=== PATIENT | female | born 1935 | race Caucasian/White ===

== ENCOUNTER 2018-02-13 12:45 | Emergency (ER) | payer OTHER, MEDICARE ==
--- NOTE | 2018-02-13 13:49 | RAD REPORT ---
EXAM DESCRIPTION: CT - Ct Stroke Brain Wo Cont - 02/13/2018 1:40 pm CLINICAL HISTORY: Left arm numbness COMPARISON: None. TECHNIQUE: Computed axial tomography of the head was obtained. IV contrast was not requested. All CT scans are performed using dose optimization technique as appropriate and may include automated exposure control or mA/KV adjustment according to patient size. FINDINGS: An intracranial bleed is not seen . The ventricles are normal in caliber. Mild to moderate low-density areas within periventricular, deep and subcortical white matter likely represent ischemic changes secondary to small vessel disease No extra-axial fluid collection is noted. Vascular calcifications are present. Fluid within the sinuses/ mastoids is not seen. IMPRESSION: No acute intracranial abnormality is seen. If patient's symptoms persist MRI of the bra in would be recommended. Dr. Porter from the emergency room was notified 1:43 p.m. February 13, 2018
--- NOTE | 2018-02-13 13:54 | RAD REPORT ---
EXAM DESCRIPTION: [facility] Single View02/13/2018 1:48 pm CLINICAL HISTORY: Hypertension/numbness COMPARISON: 2016 FINDINGS: The lungs appear clear of acute infiltrate. The heart is moderately enlarged IMPRESSION: No acute abnormalities displayed
[2018-02-13 14:02] LABS: Absolute Lymphocytes (CBC) 0.7 K/uL (0.7-4.9); Absolute Monocytes 0.7 K/uL (0.1-1.3); Absolute Neutrophil 4.5 K/uL (1.8-8.0); Basophils % 0.5 % (0-1.3); Eosinophils % 0.8 % (0-4.4); Hematocrit 37.3 % (36.0-45.0); Lymphocytes % 12.5 % (15.3-44.8); MCH 31.7 pg (27.0-35.0); MCV 94.5 fL (80-100); RBC Red Blood Cell Count 3.95 M/uL (3.86-4.86)
[2018-02-13 14:05] LABS: Protime INR 0.92
[2018-02-13] MEDS ORDERED: CLOPIDOGREL 75 MG TABLET ONE (14:10)
[2018-02-13] MEDS ORDERED: cloNIDine HCl 0.1 MG TAB ONE (14:21)
[2018-02-13 14:27] LABS: Albumin 3.3 g/dL (3.4-5.0); Bilirubin Direct 0.1 mg/dL (0-0.2); Bilirubin Total 0.5 mg/dL (0.2-1.0); Magnesium 1.9 mg/dL (1.8-2.4); Protein, Total 6.5 g/dL (6.4-8.2)
[2018-02-13 16:06] LABS: Urine Bacteria >50 /HPF (<20)
[2018-02-13 16:07] LABS: Urine Culture Reflex Order REFLEXED; Urine Mucus 1+ /HPF (NONE SEEN)
[2018-02-13 16:07] LABS: Urine Blood TRACE (NEG); Urine Glucose NEGATIVE (NEG); Urine Protein 2+ (NEG); Urine Specific Gravity 1.015 (1.005-1.030); Urine pH 6.5 (5.0-7.0)
--- NOTE | 2018-02-13 16:57 | EDPHYS ---
Physician Documentation [facility] Name: Casey Lyons Age: 82 yrs Sex: Female : 1935 Arrival Date: 02/13/2018 Time: 12:48 Bed 7 Private MD: ED Physician Jaspal Porter HPI: 02/13 13:48 This 82 yrs old Female presents to ER via EMS with complaints of Numbness Of wa Arm. 13:49 The patient presents to the emergency department with paresthesias of the left upper wa extremity, that is mild, numbness. 13:50 Onset: The symptoms/episode began/occurred Onset: The symptoms/episode began/occurred wa 1210 hrs. lasted 5 min. Context: occurred at home, occurred while the patient was at rest. Associated signs and symptoms: Pertinent negatives: altered mental status, dizziness, headache, neck stiffness, syncope, double vision, visual field changes, loss of vision, weakness. Severity of symptoms: At their worst the symptoms were moderate in the emergency department the symptoms have resolved. Patient's baseline: Neuro: alert and fully oriented, Motor: no deficits, Ambulation: Speech: normal, The patient has a previous history of HTN. Current symptoms: Currently, the patient is not experiencing any symptoms. A week ago had an episode of difficulty speaking that resolved spontaneously as well. The patient has been recently seen by a physician: the patient's primary care provider, Dr. Beltran. 13:[address] Beltran recently switched her to Plavix. md Historical: - Allergies: 12:59 No Known Drug Allergies; ph - Home Meds: 12:59 torsemide 20 mg Oral tab PRN [Active]; Clarinex 5 mg Oral tab 1 tab PRN [Active]; Fish ph Oil 1,000 mg Oral cap daily [Active]; Catapres 0.1 mg Oral tab 2 times per day [Active]; vitamin E Oral once daily [Active]; Vitamin D Oral daily [Active]; Synthroid 75 mcg Oral tab once daily [Active]; Vitamin B-12 Oral daily [Active]; pravastatin 80 mg Oral tab 1 tab once daily [Active]; Citracal D daily [Active]; Zebeta 10 mg Oral tab 1 tab once daily [Active]; Pletal 100 mg Oral tab 1 tab 2 times per day [Active]; Plavix 75 mg Oral tab 1 tab once daily [Active]; - PMHx: 12:59 Cellulitis of Leg; Hypertension; Hypothyroidism; ph - PSHx: 12:59 Heart stents; CABG; Hysterectomy; ph - Immunization history:: Adult Immunizations up to date. - Social history:: Smoking status: Patient/guardian denies using tobacco, but has a distant history of tobacco abuse. - Ebola Screening: : No symptoms or risks identified at this time. - Family history:: not pertinent. - Hospitalizations: : No recent hospitalization is reported. ROS: 13:57 Constitutional: Negative for fever, chills, and weight loss, Eyes: Negative for injury, wa pain, redness, and discharge, ENT: Negative for injury, pain, and discharge, Neck: Negative for injury, pain, and swelling, Cardiovascular: Negative for chest pain, palpitations, and edema, Respiratory: Negative for shortness of breath, cough, wheezing, and pleuritic chest pain, Abdomen/GI: Negative for abdominal pain, nausea, vomiting, diarrhea, and constipation, Back: Negative for injury and pain, MS/Extremity: Negative for injury and deformity, Skin: Negative for injury, rash, and discoloration, Psych: Negative for depression, anxiety, suicide ideation, homicidal ideation, and hallucinations. 13:57 Neuro: Positive for numbness, tingling, weakness, of the left arm, Negative for altered mental status, dizziness, gait disturbance, headache, loss of consciousness, seizure activity, speech changes, syncope, visual changes. 13:57 All other systems are negative. Exam: 13:57 Constitutional: This is a well developed, well nourished patient who is awake, alert, wa and in no acute distress. Head/Face: Normocephalic, atraumatic. Eyes: Pupils equal round and reactive to light, extra-ocular motions intact. Lids and lashes normal. Conjunctiva and sclera are non-icteric and not injected. Cornea within normal limits. Periorbital areas with no swelling, redness, or edema. ENT: Nares patent. No nasal discharge, no septal abnormalities noted. Tympanic membranes are normal and external auditory canals are clear. Oropharynx with no redness, swelling, or masses, exudates, or evidence of obstruction, uvula midline. Mucous membranes moist. Neck: Trachea midline, no thyromegaly or masses palpated, and no cervical lymphadenopathy. Supple, full range of motion without nuchal rigidity, or vertebral point tenderness. No Meningismus. Cardiovascular: Regular rate and rhythm with a normal S1 and S2. No gallops, murmurs, or rubs. Normal PMI, no JVD. No pulse deficits. Respiratory: Lungs have equal breath sounds bilaterally, clear to auscultation and percussion. No rales, rhonchi or wheezes noted. No increased work of breathing, no retractions or nasal flaring. Abdomen/GI: Soft, non-tender, with normal bowel sounds. No distension or tympany. No guarding or rebound. No evidence of tenderness throughout. Back: No spinal tenderness. No costovertebral tenderness. Full range of motion. Skin: Warm, dry with normal turgor. Normal color with no rashes, no lesions, and no evidence of cellulitis. MS/ Extremity: Pulses equal, no cyanosis. Neurovascular intact. Full, normal range of motion. Psych: Awake, alert, with orientation to person, place and time. Behavior, mood, and affect are within normal limits. Vital Signs: 12:53 BP 187 / 59; Pulse 66; Resp 18; Temp 98.0(TE); Pulse Ox 98% on R/A; Weight 72.57 kg; ph Height 5 ft. 4 in. (162.56 cm); Pain 0/10; 14:15 BP 219 / 72; Pulse 84; Resp 16; Pulse Ox 99% on R/A; Pain 0/10; ph 15:28 BP 195 / 75; Pulse 63; Resp 16; Pulse Ox 98% on R/A; Pain 0/10; ph 17:10 BP 185 / 69; Pulse 64; Resp 18; Temp 97.6; Pulse Ox 98% on R/A; Pain 0/10; ph 12:53 Body Mass Index 27.46 (72.57 kg, 162.56 cm) ph NIH Stroke Scale Scores: 13:15 NIHSS Score: 0 ph MDM: 12:57 Patient medically screened. wa 13:58 Special discussion: TIA? will work up acutely and reassess. pt at baseline with nml wa exam at the moment. 16:37 Data reviewed: vital signs, nurses notes, lab test result(s), EKG, radiologic studies. wa Test interpretation: by ED physician or midlevel provider: labs noted for pyuria consistent with UTI. nml CXR. CT brain: no acute process. . Test interpretation: by ED physician or midlevel provider: EKG: HR 76. sinus. Inferior-lateral ischemic changes noted. Response to treatment: the patient's symptoms have resolved after treatment. Physician consultation: Gurdeep Koehler MD per Dr. Koehler, pt may be discharged home with f/u to him if symptoms resolved. advise immediate return for worrisome concerns. 02/13 13:32 Order name: Troponin (emerg Dept Use Only); Complete Time: 14:33 md 02/13 13:32 Order name: Magnesium; Complete Time: 14:33 md 02/13 13:32 Order name: Hepatic Function; Complete Time: 14:33 md 02/13 13:32 Order name: Basic Metabolic Panel; Complete Time: 14:33 md 02/13 13:32 Order name: CBC with Diff; Complete Time: 14:33 md 02/13 13:32 Order name: Protime (+inr); Complete Time: 14:33 md 02/13 13:32 Order name: Urine Microscopic Only; Complete Time: 16:35 md 02/13 13:32 Order name: CT Stroke Brain w/o Contrast; Complete Time: 14:33 md 02/13 13:32 Order name: Stroke CXR 1 View; Complete Time: 14:34 md 02/13 15:20 Order name: Urine Dipstick--Ancillary (enter results); Complete Time: 16:35 02/13 16:07 Order name: Urine Culture [facility] 02/13 13:32 Order name: EKG; Complete Time: 13:33 md 02/13 13:32 Order name: Accucheck; Complete Time: 14:03 md 02/13 13:32 Order name: Cardiac monitoring; Complete Time: 13:49 md 02/13 13:32 Order name: EKG - Nurse/Tech; Complete Time: 13:58 md 02/13 13:32 Order name: IV Saline Lock; Complete Time: 13:58 md 02/13 13:32 Order name: Labs collected and sent; Complete Time: 13:58 md 02/13 13:32 Order name: NPO; Complete Time: 13:49 md 02/13 13:32 Order name: O2 Per Protocol; Complete Time: 13:49 md 02/13 13:32 Order name: O2 Sat Monitoring; Complete Time: 13:49 md 02/13 13:32 Order name: Stroke Swallow Screen; Complete Time: 14:03 md 02/13 13:32 Order name: Urine Dipstick-Ancillary (obtain specimen); Complete Time: 15:20 wa Administered Medications: 14:20 Drug: PlaVIX 75 mg Route: PO; ph 17:09 Follow up: Response: No adverse reaction ph 14:20 Drug: cloNIDine 0.1 mg Route: PO; ph 17:12 Follow up: Response: No adverse reaction ph 17:05 Drug: Rocephin - (cefTRIAXone) 1 grams Route: IVPB; Infused Over: 30 mins; Site: right ph antecubital; 17:12 Follow up: Response: No adverse reaction; IV Status: Completed infusion ph Disposition: 02/13/18 16:56 Discharged to Home. Impression: Transient Left Upper Extremity numbess, Acute UTI. - Condition is Stable. - Prescriptions for Keflex 500 mg Oral Capsule - take 1 capsule by ORAL route every 8 hours for 5 days; 15 capsule. - Medication Reconciliation Form, Thank You Letter, Antibiotic Education, Prescription Opioid Use form. - Follow up: Gurdeep Koehler MD; When: 1 - 2 days; Reason: Re-evaluation by your physician. - Problem is new. - Symptoms have improved. - Notes: per Dr. Koehler, you can go home but return immediately if you develop any other symptoms such as dizziness, problems with speech, difficulty walking, and or any new and worrisome concerns you may have NIH Stroke Scale - NIH Stroke Score Date: 02/13/2018 Time: 13:15 Total Score = 0 1a. Level of Consciousness (LOC) - 0(Alert) 1b. Level of Consciousness (LOC) (Year \T\ Age) - 0(Both) 1c. LOC Commands (Open \T\ Closes Eyes/Wire Weaver Helper) - 0(Both) 2. Best Gaze (Lateral Gaze Paresis) - 0(Normal) 3. Visual Field Loss - 0(No visual loss) 4. Facial Palsy - 0(Normal) 5a. Left Arm: Motor (10-second hold) - 0(No drift) 5b. Right Arm: Motor (10-second hold) - 0(No drift) 6a. Left Leg: Motor (5-second hold - always test supine) - 0(No drift) 6b. Right Leg: Motor (5-second hold - always test supine) - 0(No drift) 7. Limb Ataxia (finger/nose \T\ heel/sesay - test with eyes open) - 0(Absent) 8. Sensory Loss (pinprick arms/legs/face) - 0(Normal) 9. Best Language: Aphasia (description/naming/reading) - 0(No aphasia) 10. Dysarthria (speech clarity - read or repeat words) - 0(Normal) 11. Extinction and Inattention (visual/tactile/auditory/spatial/personal) - 0(No abnormality) Initials: ph Signatures: Dispatcher [employer] Giovanna Moore RN RN ph [place], MD SAULO Shay md Corrections: (The following items were deleted from the chart) 13:55 13:49 Onset: The symptoms/episode began/occurred today, and improved lasted wa about 10 minutes. now resolved, md 13:58 13:32 Urine Test ordered. [facility] 17:14 16:56 02/13/2018 16:56 Discharged to Home. Impression: Transient Left Upper ph Extremity numbess; Acute UTI. Condition is Stable. Forms are Medication Reconciliation Form, Thank You Letter, Antibiotic Education, Prescription Opioid Use. Follow up: Gurdeep Koehler; When: 1 - 2 days; Reason: Re-evaluation by your physician. Problem is new. Symptoms have improved. wa
--- NOTE | 2018-02-13 16:57 | ER ---
Nurse's Notes [facility] Name: Casey Lyons Age: 82 yrs Sex: Female : 1935 Arrival Date: 02/13/2018 Time: 12:48 Bed 7 Private MD: Diagnosis: Transient Left Upper Extremity numbess;Acute UTI Presentation: 02/13 12:49 Presenting complaint: Patient states: Pt reports having numbness and tingling of L arm ph that lasted approx 5 minutes and then resolved, symptoms began at 1210, pt also reports having difficulty speaking on Friday, states that those symptoms lasted approx 5 min as well. Pt hypertensive on scene at 220/106, BP decreased during transport, last reading 107/60, BGL 158. Transition of care: patient was not received from another setting of care. Onset of symptoms was February 13, 2018. Risk Assessment: Do you want to hurt yourself or someone else? Patient reports no desire to harm self or others. Initial Sepsis Screen: Does the patient meet any 2 criteria? No. Patient's initial sepsis screen is negative. Does the patient have a suspected source of infection? No. Patient's initial sepsis screen is negative. Care prior to arrival: Glucose check: 158. 12:49 Method Of Arrival: EMS: [facility] 12:49 Acuity: CLINT 3 ph Triage Assessment: 13:00 General: Appears in no apparent distress. comfortable, well groomed, Behavior is calm, ph cooperative, appropriate for age, Denies fever, feeling ill. Pain: Denies pain. EENT: No signs and/or symptoms were reported regarding the EENT system. Neuro: Level of Consciousness is awake, alert, obeys commands, Oriented to person, place, time, situation, Edge Baster are equal bilaterally Moves all extremities. Speech is normal, Facial symmetry appears normal, Facial symmetry: tongue is midline, Pupils are PERRLA, Reports numbness paresthesias in left arm reports that symptoms began at approx 1210 and lasted 5 min Denies weakness blurred vision dizziness, headache. Cardiovascular: Denies chest pain, nausea, shortness of breath, Capillary refill < 3 seconds in bilateral fingers Patient's skin is warm and dry. Rhythm is sinus rhythm. Respiratory: Airway is patent Respiratory effort is even, unlabored, Respiratory pattern is regular, symmetrical, Denies shortness of breath. GI: No signs and/or symptoms were reported involving the gastrointestinal system. Derm: Skin is intact, is healthy with good turgor, Skin is pink, warm \T\ dry. Musculoskeletal: Circulation, motion, and sensation intact. Range of motion: intact in all extremities. Historical: - Allergies: 12:59 No Known Drug Allergies; ph - Home Meds: 12:59 torsemide 20 mg Oral tab PRN [Active]; Clarinex 5 mg Oral tab 1 tab PRN [Active]; Fish ph Oil 1,000 mg Oral cap daily [Active]; Catapres 0.1 mg Oral tab 2 times per day [Active]; vitamin E Oral once daily [Active]; Vitamin D Oral daily [Active]; Synthroid 75 mcg Oral tab once daily [Active]; Vitamin B-12 Oral daily [Active]; pravastatin 80 mg Oral tab 1 tab once daily [Active]; Citracal D daily [Active]; Zebeta 10 mg Oral tab 1 tab once daily [Active]; Pletal 100 mg Oral tab 1 tab 2 times per day [Active]; Plavix 75 mg Oral tab 1 tab once daily [Active]; - PMHx: 12:59 Cellulitis of Leg; Hypertension; Hypothyroidism; ph - PSHx: 12:59 Heart stents; CABG; Hysterectomy; ph - Immunization history:: Adult Immunizations up to date. - Social history:: Smoking status: Patient/guardian denies using tobacco, but has a distant history of tobacco abuse. - Ebola Screening: : No symptoms or risks identified at this time. - Family history:: not pertinent. - Hospitalizations: : No recent hospitalization is reported. Screenin:03 Abuse screen: Denies threats or abuse. Denies injuries from another. Nutritional ph screening: No deficits noted. Tuberculosis screening: No symptoms or risk factors identified. Fall Risk No fall in past 12 months (0 pts). No secondary diagnosis (0 pts). IV access (20 points). Ambulatory Aid- None/Bed Rest/Nurse Assist (0 pts). Gait- Normal/Bed Rest/Wheelchair (0 pts) Mental Status- Oriented to own ability (0 pts). Total Yoo Fall Scale indicates No Risk (0-24 pts). 14:00 Patient has been NPO before screening. The patient is alert, able to follow commands. ph The patient does not exhibit slurred or garbled speech The patient is not exhibiting difficulty speaking. The patient does not exhibit difficulty understanding words. The patient is able to swallow own secretions with no drooling or need for suction. Patient tolerated one teaspoon of water. No drooling, immediate coughing, gurgling, or clearing of the throat was noted. The patient tolerated 90mL of water. No drooling, immediate coughing, gurgling, or clearing of the throat was noted. The patient passed the bedside swallow screening. Oral medications may be given as ordered. Contact Physician for further diet orders. Assessment: 13:05 General: No change from previously documented assessment, see triage tab. ph 13:43 Reassessment: Pt in CT at this time. ss 14:20 Reassessment: Patient appears in no apparent distress at this time. Patient and/or ph family updated on plan of care and expected duration. Pain level reassessed. Patient is alert, oriented x 3, equal unlabored respirations, skin warm/dry/pink. BP noted to be elevated at 219/79, pt states that she did not take her BP medication today, ERP notified, see MAR Patient denies pain at this time. 15:10 Reassessment: Patient appears in no apparent distress at this time. Patient and/or ph family updated on plan of care and expected duration. Pain level reassessed. Patient is alert, oriented x 3, equal unlabored respirations, skin warm/dry/pink. Pt ambulated to restroom w/ cane, accompanied by nurse, gait steady, denies dizziness. 16:00 Reassessment: Patient appears in no apparent distress at this time. No changes from previously documented assessment. Patient and/or family updated on plan of care and expected duration. Pain level reassessed. Patient is alert, oriented x 3, equal unlabored respirations, skin warm/dry/pink. 17:12 Reassessment: Patient appears in no apparent distress at this time. Patient and/or ph family updated on plan of care and expected duration. Pain level reassessed. Patient is alert, oriented x 3, equal unlabored respirations, skin warm/dry/pink. Pt instructed to return to ED if she experiences any symptoms such as numbness, dizziness, weakness, difficulty speaking and/or walking, pt voiced her understanding of instructions, d/c home w/ friend. Vital Signs: 12:53 BP 187 / 59; Pulse 66; Resp 18; Temp 98.0(TE); Pulse Ox 98% on R/A; Weight 72.57 kg; ph Height 5 ft. 4 in. (162.56 cm); Pain 0/10; 14:15 BP 219 / 72; Pulse 84; Resp 16; Pulse Ox 99% on R/A; Pain 0/10; ph 15:28 BP 195 / 75; Pulse 63; Resp 16; Pulse Ox 98% on R/A; Pain 0/10; ph 17:10 BP 185 / 69; Pulse 64; Resp 18; Temp 97.6; Pulse Ox 98% on R/A; Pain 0/10; ph 12:53 Body Mass Index 27.46 (72.57 kg, 162.56 cm) ph Vitals: 14:15 Cardiac Rhythm Assessment Sinus rhythm. ph NIH Stroke Scale Scores: 13:15 NIHSS Score: 0 ph ED Course: 12:48 Patient arrived in ED. ph 12:53 Triage completed. ph 12:57 Jaspal Porter MD is Attending Physician. wa 13:00 Arm band placed on. ph 13:03 Patient has correct armband on for positive identification. Placed in gown. Bed in low ph position. Call light in reach. Side rails up X 1. design maintenance engineer on. Pulse ox on. NIBP on. Warm blanket given. 13:05 Giovanna Kingston, RN is Primary Nurse. ph 13:[address] nj 13:35 Radiology exam delayed due to PT IN CT. jb2 13:41 CT completed. Patient tolerated procedure well. Patient moved back from CT. nj 13:41 CT Stroke Brain w/o Contrast In Process Unspecified. EDMS 13:45 X-ray completed. Patient tolerated procedure well. Patient moved to radiology via [facility] stretcher. Patient moved back from radiology. 13:46 Stroke CXR 1 View In Process Unspecified. EDMS 13:57 Inserted saline lock: 20 gauge in right antecubital area, using aseptic technique. ss Blood collected. 14:07 EKG done, by ED staff, reviewed by Jaspal Porter MD. em1 14:26 No provider procedures requiring assistance completed. ph 16:54 Gurdeep Koehler MD is Referral Physician. wa 17:11 IV discontinued, intact, bleeding controlled, No redness/swelling at site. Pressure ph dressing applied. Administered Medications: 14:20 Drug: PlaVIX 75 mg Route: PO; ph 17:09 Follow up: Response: No adverse reaction ph 14:20 Drug: cloNIDine 0.1 mg Route: PO; ph 17:12 Follow up: Response: No adverse reaction ph 17:05 Drug: Rocephin - (cefTRIAXone) 1 grams Route: IVPB; Infused Over: 30 mins; Site: right ph antecubital; 17:12 Follow up: Response: No adverse reaction; IV Status: Completed infusion ph Outcome: 16:56 Discharge ordered by . wa 17:11 Discharged to home ambulatory, with friend. ph 17:11 Condition: good 17:11 Discharge instructions given to patient, Instructed on discharge instructions, follow up and referral plans. medication usage, Demonstrated understanding of instructions, follow-up care, medications, Prescriptions given X 1. 17:14 Patient left the ED. ph NIH Stroke Scale - NIH Stroke Score Date: 02/13/2018 Time: 13:15 Total Score = 0 1a. Level of Consciousness (LOC) - 0(Alert) 1b. Level of Consciousness (LOC) (Year \T\ Age) - 0(Both) 1c. LOC Commands (Open \T\ Closes Eyes/Diesel Dragline Operator) - 0(Both) 2. Best Gaze (Lateral Gaze Paresis) - 0(Normal) 3. Visual Field Loss - 0(No visual loss) 4. Facial Palsy - 0(Normal) 5a. Left Arm: Motor (10-second hold) - 0(No drift) 5b. Right Arm: Motor (10-second hold) - 0(No drift) 6a. Left Leg: Motor (5-second hold - always test supine) - 0(No drift) 6b. Right Leg: Motor (5-second hold - always test supine) - 0(No drift) 7. Limb Ataxia (finger/nose \T\ heel/sesay - test with eyes open) - 0(Absent) 8. Sensory Loss (pinprick arms/legs/face) - 0(Normal) 9. Best Language: Aphasia (description/naming/reading) - 0(No aphasia) 10. Dysarthria (speech clarity - read or repeat words) - 0(Normal) 11. Extinction and Inattention (visual/tactile/auditory/spatial/personal) - 0(No abnormality) Initials: ph Signatures: Dispatcher [employer] EDLudin Nievessse jb2 Mavis Vigil 1 Jose Parrish em1 Malgorzata Barajas RN RN ss Hall, Patricia, RN RN Saurav, Jaspal Nichole MD MD wa
[2018-02-13] MEDS ORDERED: CEFTRIAXONE/SWI 1gm 1 GM/10 ML SYR ONE (17:05)
[2018-02-13 17:37] VITALS: O2SAT 98
[2018-02-13 17:39] VITALS: BP 185/69; TEMP 97.6
[2018-02-13 19:28] LABS: Urine Blood TRACE (NEG); Urine Glucose NEGATIVE (NEG); Urine Protein 2+ (NEG); Urine Specific Gravity 1.015 (1.005-1.030); Urine pH 6.5 (5.0-7.0)
--- NOTE | 2018-02-14 08:34 | EKG ---
Test Date: 2018-02-13 Test Time: 13:57:55 Building Associate: LIEN MEASUREMENT RESULTS: Intervals: Rate: 76 SC: 166 QRSD: 94 QT: 408 QTc: 459 Bowdle: P: 38 SC: 166 QRS: 14 T: 161 INTERPRETIVE STATEMENTS: Normal sinus rhythm T wave abnormality, consider inferior ischemia T wave abnormality, consider anterolateral ischemia Abnormal ECG Compared to ECG 11/04/2015 15:06:54 Sinus bradycardia no longer present T-wave abnormality still present Possible ischemia still present Electronically Signed On 02-14-18 08:33:53 CDT by Jarrett Hernandez
== END 2018-02-13 17:14 | disposition home or self-care (01) ==
LOC: ER 12:45
DX: R20.0 Anesthesia of skin (principal); N39.0 Urinary tract infection, site not specified; I10 Essential (primary) hypertension; E03.9 Hypothyroidism, unspecified; Z95.5 Presence of coronary angioplasty implant and graft; Z95.1 Presence of aortocoronary bypass graft; Z87.891 Personal history of nicotine dependence
CPT/HCPCS: 36415; 70450; 71045; 80048; 80076; 83735; 84484; 85025; 85610; 87077; 87086; 87088; 87186; 93005; 96374; 99285; J0696; 81003; 81015

== ENCOUNTER 2018-02-14 11:53 | Emergency (ER) | payer OTHER, MEDICARE ==
--- NOTE | 2018-02-14 12:10 | RAD REPORT ---
EXAM DESCRIPTION: CT - Ct Stroke Brain Wo Cont - 02/14/2018 12:01 pm CLINICAL HISTORY: Slurred speech and left-sided weakness COMPARISON: February 13, 2018 TECHNIQUE: Computed axial tomography of the head was obtained. IV contrast was not requested. All CT scans are performed using dose optimization technique as appropriate and may include automated exposure control or mA/KV adjustment according to patient size. FINDINGS: An intracranial bleed is not seen . The ventricles are normal in caliber. No extra-axial fluid collection is noted. Mild to moderate low-density areas within periventricular, deep and subcortical white matter likely r epresent ischemic changes secondary to small vessel disease. Small low-density area within the left c erebellum may be secondary to an old infarct or volume averaging of CSF Fluid within the sinuses/ mastoids is not seen. IMPRESSION: No acute intracranial abnormality is seen. If patient's symptoms persist MRI of the bra in would be recommended. The exam was discussed with Dr. Porter in the emergency room 12 p.m. February 14, 2018
[2018-02-14 12:15] LABS: Absolute Lymphocytes (CBC) 0.9 K/uL (0.7-4.9); Absolute Monocytes 0.7 K/uL (0.1-1.3); Absolute Neutrophil 4.3 K/uL (1.8-8.0); Basophils % 0.5 % (0-1.3); Eosinophils % 0.6 % (0-4.4); Hematocrit 37.7 % (36.0-45.0); Lymphocytes % 14.6 % (15.3-44.8); MCH 31.9 pg (27.0-35.0); MCV 94.6 fL (80-100); MPV 9.1 fL (7.6-11.3); Monocytes % 11.2 % (3.3-12.3); RBC Red Blood Cell Count 3.98 M/uL (3.86-4.86)
--- NOTE | 2018-02-14 12:21 | RAD REPORT ---
EXAM DESCRIPTION: Clement Single View02/14/2018 12:15 pm CLINICAL HISTORY: Cardiomegaly/stroke protocol COMPARISON: February 13, 2018 FINDINGS: The lungs appear clear of acute infiltrate. The heart is moderately enlarged IMPRESSION: No acute abnormalities displayed
[2018-02-14 12:25] LABS: Protime INR 0.91
[2018-02-14 12:29] LABS: Potassium 4.1 mmol/L (3.5-5.1)
[2018-02-14] MEDS ORDERED: ALTEPLASE 100 ML IV ONE (12:39)
[2018-02-14] MEDS ORDERED: NA CHLORIDE 0.9% 100 ML IV ONE (12:39)
[2018-02-14] MEDS ORDERED: ASPIRIN 600 MG/SUPP PR ONE (12:57)
--- NOTE | 2018-02-14 13:00 | EDPHYS ---
Physician Documentation [facility] Name: Casey Lyons Age: 82 yrs Sex: Female : 1935 Arrival Date: 02/14/2018 Time: 11:55 Bed 13 Private MD: ED Physician Jaspal Porter HPI: 02/14 12:43 This 82 yrs old Female presents to ER via Ambulatory with complaints of left wa side weakness. 12:43 The patient presents to the emergency department with weakness of the left upper wa extremity, left lower extremity, that is moderate, a speech or higher order brain function problem, aphasia, that is moderate, difficult walking, the patient is off balance, paresthesias of the. Onset: The symptoms/episode began/occurred 30 minute(s) ago. Context: occurred at home, occurred while the patient was at rest. Associated signs and symptoms: Pertinent positives: weakness, confusion, Pertinent negatives: headache, syncope, loss of vision. Severity of symptoms: At their worst the symptoms were moderate in the emergency department the symptoms are unchanged. Patient's baseline: Neuro: alert and fully oriented, Motor: no deficits, Ambulation: walks without assistance, Speech: normal, The patient has a previous history of TIA, HTN, symptoms began at 11:25 hrs. Current symptoms: confusion, paralysis or paresis, that is mild. has had a couple TIAs the last week. last episode, yesterday. The patient has been recently seen by a physician: yesterday, in this ED. Son and Daughter at the bedside. . Historical: - Allergies: 13:51 No Known Allergies; sv - PMHx: 12:52 Hypertension; wa 13:51 cellulitis of leg; sv - PSHx: 13:51 cardiac stents; CABG; Hysterectomy; sv - Immunization history:: Adult Immunizations up to date. - Social history:: The patient lives alone, Smoking status: Patient/guardian denies using tobacco. - Family history:: not pertinent. - Ebola Screening: : No symptoms or risks identified at this time. - Hospitalizations: : No recent hospitalization is reported. ROS: 12:53 Constitutional: Negative for fever, chills, and weight loss, Eyes: Negative for injury, wa pain, redness, and discharge, ENT: Negative for injury, pain, and discharge, Neck: Negative for injury, pain, and swelling, Cardiovascular: Negative for chest pain, palpitations, and edema, Respiratory: Negative for shortness of breath, cough, wheezing, and pleuritic chest pain, Abdomen/GI: Negative for abdominal pain, nausea, vomiting, diarrhea, and constipation, Back: Negative for injury and pain, : Negative for injury, bleeding, discharge, and swelling, MS/Extremity: Negative for injury and deformity, Skin: Negative for injury, rash, and discoloration. 12:53 Neuro: Positive for R facial droop. L side weakness. mild aphasia. mildly confused . 12:53 All other systems are negative. Exam: 12:55 Constitutional: This is a well developed, well nourished patient who is awake, alert, wa and in no acute distress. Head/Face: Normocephalic, atraumatic. Eyes: Pupils equal round and reactive to light, extra-ocular motions intact. Lids and lashes normal. Conjunctiva and sclera are non-icteric and not injected. Cornea within normal limits. Periorbital areas with no swelling, redness, or edema. ENT: Nares patent. No nasal discharge, no septal abnormalities noted. Tympanic membranes are normal and external auditory canals are clear. Oropharynx with no redness, swelling, or masses, exudates, or evidence of obstruction, uvula midline. Mucous membranes moist. Neck: Trachea midline, no thyromegaly or masses palpated, and no cervical lymphadenopathy. Supple, full range of motion without nuchal rigidity, or vertebral point tenderness. No Meningismus. Chest/axilla: Normal chest wall appearance and motion. Nontender with no deformity. No lesions are appreciated. Cardiovascular: Regular rate and rhythm with a normal S1 and S2. No gallops, murmurs, or rubs. Normal PMI, no JVD. No pulse deficits. Respiratory: Lungs have equal breath sounds bilaterally, clear to auscultation and percussion. No rales, rhonchi or wheezes noted. No increased work of breathing, no retractions or nasal flaring. Abdomen/GI: Soft, non-tender, with normal bowel sounds. No distension or tympany. No guarding or rebound. No evidence of tenderness throughout. Back: No spinal tenderness. No costovertebral tenderness. Full range of motion. Skin: Warm, dry with normal turgor. Normal color with no rashes, no lesions, and no evidence of cellulitis. MS/ Extremity: Pulses equal, no cyanosis. Neurovascular intact. Full, normal range of motion. Psych: Awake, alert, with orientation to person, place and time. Behavior, mood, and affect are within normal limits. 12:55 Neuro: Orientation: mildly confused. mild difficulty finding her words. , Mentation: confused, Memory: Cranial nerves: grossly normal, Cerebellar function: not able to follow well for appropriate testing, Motor: LUE and LLE weakness noted. worse in the upper extremity, Sensation: decreased on the right. Vital Signs: 12:00 BP 136 / 65; Pulse 61; Resp 15; Pulse Ox 100% on R/A; Pain 0/10; sv 12:23 Weight 75.48 kg; dh3 12:26 BP 185 / 51; Pulse 76; Resp 12; Pulse Ox 99% ; sv 12:39 BP 152 / 78; Pulse 62; Resp 18; Pulse Ox 99% ; sv NIH Stroke Scale Scores: 12:28 NIHSS Score: 8 sv [place] Coma Score: 12:15 Eye Response: spontaneous(4). Verbal Response: confused(4). Motor Response: obeys hb commands(6). Total: 14. 13:00 Eye Response: spontaneous(4). Verbal Response: confused(4). Motor Response: obeys hb commands(6). Total: 14. MDM: 12:21 Patient medically screened. wa 12:57 Data reviewed: vital signs, nurses notes, lab test result(s), EKG, radiologic studies. wa Special discussion: acute stroke symptoms. in window for TPA. no contraindications. spoke with neurologist Dr. Barreto. advised TPA and then transfer. He accepted. pt. Discussed risks and benefits with family and answered their questions.. 02/14 11:57 Order name: Basic Metabolic Panel; Complete Time: 12:32 ph 02/14 11:57 Order name: CBC with Diff; Complete Time: 12:32 ph 02/14 11:57 Order name: Protime (+inr); Complete Time: 12:32 ph 02/14 11:57 Order name: Ptt, Activated; Complete Time: 12:32 ph 02/14 12:08 Order name: Glucose, Ancillary Testing; Complete Time: 12:32 EDMS 02/14 11:57 Order name: CT Stroke Brain w/o Contrast; Complete Time: 12:32 ph 02/14 11:57 Order name: Stroke CXR 1 View; Complete Time: 12:32 ph 02/14 11:57 Order name: Accucheck; Complete Time: 13:17 ph 02/14 11:57 Order name: Cardiac monitoring; Complete Time: 13:17 ph 02/14 11:57 Order name: EKG - Nurse/Tech 02/14 11:57 Order name: IV Saline Lock; Complete Time: 13:17 ph 02/14 11:57 Order name: Labs collected and sent; Complete Time: 13:18 ph 02/14 11:57 Order name: NPO; Complete Time: 13:18 ph 02/14 11:57 Order name: O2 Per Protocol; Complete Time: 13:18 ph 02/14 11:57 Order name: O2 Sat Monitoring; Complete Time: 13:18 ph 02/14 11:57 Order name: Stroke Swallow Screen; Complete Time: 13:18 02/14 11:57 Order name: Urine Dipstick-Ancillary (obtain specimen) ph Administered Medications: 13:03 Drug: ACTIvase 68 mg {Co-Signature: hb (Kira Lewis RN).} Route: IV; Rate: sv calculated rate; Infused Over: 60 mins; Site: left antecubital; 13:15 Follow up: Response: No adverse reaction; IV Status: Infusion continued upon transfer sv Point of Care Testing: Blood Glucose: 12:02 Blood Glucose: 125 mg/dL; sv Ranges: Critical Glucose Levels:Adult <50 mg/dl or >400 mg/dl <40 mg/dl or >180 mg/dl Disposition: 02/14/18 13:00 Transfer ordered to [facility]. Diagnosis is Acute Stroke (infarction). - Reason for transfer: Higher level of care. - Accepting physician is Dr. Barreto. - Condition is Serious. - Problem is new. - Symptoms are unchanged. Critical care time excluding procedures: 13:00 Critical care time: Bedside Care: 15 minutes, Consultation: 15 minutes, Family wa Intervention: 10 minutes. Total time: 40 minutes NIH Stroke Scale - NIH Stroke Score Date: 02/14/2018 Time: 12:28 Total Score = 8 1a. Level of Consciousness (LOC) - 0(Alert) 1b. Level of Consciousness (LOC) (Year \T\ Age) - 0(Both) 1c. LOC Commands (Open \T\ Closes Eyes/Podiatric Technician) - 1(One) 2. Best Gaze (Lateral Gaze Paresis) - 0(Normal) 3. Visual Field Loss - 0(No visual loss) 4. Facial Palsy - 1(Minor Paralysis) 5a. Left Arm: Motor (10-second hold) - 0(No drift) 5b. Right Arm: Motor (10-second hold) - 0(No drift) 6a. Left Leg: Motor (5-second hold - always test supine) - 1(Drift) 6b. Right Leg: Motor (5-second hold - always test supine) - 1(Drift) 7. Limb Ataxia (finger/nose \T\ heel/sesay - test with eyes open) - 2(Present in two limbs) 8. Sensory Loss (pinprick arms/legs/face) - 0(Normal) 9. Best Language: Aphasia (description/naming/reading) - 1(Mild to moderate aphasia) 10. Dysarthria (speech clarity - read or repeat words) - 1(Mild to Moderate) 11. Extinction and Inattention (visual/tactile/auditory/spatial/personal) - 0(No abnormality) Initials: sv Signatures: Dispatcher [employer] Brenda Justice RN RN Sumeet Ball PA PA jmm Hall, Patricia, RN RN Jaspal Porter MD MD ri Kira Lewis RN Corrections: (The following items were deleted from the chart) 13:28 13:00 02/14/2018 13:00 Transfer ordered to [facility]. sv Diagnosis is Acute Stroke (infarction). Reason for transfer: Higher level of care. Accepting physician is Dr. Barreto. Condition is Serious. Problem is new. Symptoms are unchanged. wa
--- NOTE | 2018-02-14 13:00 | ER ---
Nurse's Notes [facility] Name: Casey Lyons Age: 82 yrs Sex: Female : 1935 Arrival Date: 02/14/2018 Time: 11:55 Bed 13 Private MD: Diagnosis: Acute Stroke (infarction) Presentation: 02/14 11:53 Presenting complaint: Patient states: Pt presented to ER with garbled speech, L facial ss droop and pointing to her L arm attempting to state that it felt different. Pt was seen yesterday for stroke like symptoms. Transition of care: patient was not received from another setting of care. Onset of symptoms was February 14, 2018. Risk Assessment: Do you want to hurt yourself or someone else? Patient reports no desire to harm self or others. Initial Sepsis Screen: Does the patient meet any 2 criteria? No. Patient's initial sepsis screen is negative. Does the patient have a suspected source of infection? No. Patient's initial sepsis screen is negative. Care prior to arrival: None. 11:53 Method Of Arrival: Ambulatory ss 11:53 Acuity: CLINT 2 ss Historical: - Allergies: 13:51 No Known Allergies; sv - PMHx: 12:52 Hypertension; wa 13:51 cellulitis of leg; sv - PSHx: 13:51 cardiac stents; CABG; Hysterectomy; sv - Immunization history:: Adult Immunizations up to date. - Social history:: The patient lives alone, Smoking status: Patient/guardian denies using tobacco. - Family history:: not pertinent. - Ebola Screening: : No symptoms or risks identified at this time. - Hospitalizations: : No recent hospitalization is reported. Screenin:15 Abuse screen: Denies threats or abuse. Denies injuries from another. Nutritional sv screening: No deficits noted. Tuberculosis screening: No symptoms or risk factors identified. Fall Risk No fall in past 12 months (0 pts). Secondary diagnosis (15 points) CVA, IV access (20 points). Ambulatory Aid- None/Bed Rest/Nurse Assist (0 pts). Gait- Normal/Bed Rest/Wheelchair (0 pts) Mental Status- Overestimates/Forgets Limitations (15 pts.). Total Yoo Fall Scale indicates High Risk Score (45 or more points). Fall prevention measures have been instituted. Side Rails Up X 2 Frequent Obs/Assessments Occuring Family Present and informed to notify staff if the need to leave the bedside As available patient and family educated on Fall Prevention Program and Strategies. Assessment: 11:53 Reassessment: Code Stroke called. Pt taken to CT by Malgorzata CASTRO. sv 12:02 Reassessment: back from CT 1159. ss 12:03 General: Appears in no apparent distress. comfortable, well groomed, Behavior is calm, sv cooperative, appropriate for age. Pain: Denies pain. Neuro: Level of Consciousness is awake, alert, obeys commands, Oriented to person, place, time, situation, Rehab Department Manager are weak on left Moves all extremities. Gait is steady, Speech is slurred, Facial symmetry: tongue is midline, Reports weakness in left arm and left leg. Cardiovascular: Patient's skin is warm and dry. Pulses are 3+ in right radial artery and left radial artery. Respiratory: Respiratory effort is even, unlabored, Respiratory pattern is regular, symmetrical. GI: No signs and/or symptoms were reported involving the gastrointestinal system. : No signs and/or symptoms were reported regarding the genitourinary system. EENT: No signs and/or symptoms were reported regarding the EENT system. Derm: Skin is fragile, is thin, Skin is normal. Musculoskeletal: Reports weakness in left leg. 12:07 Reassessment: Dr Porter at bedside to assess the pt. sv 12:21 Reassessment: Dr. Barreto called back for Dr. Porter. hb 12:30 Reassessment: Dr Porter at bedside discussing with family regarding TPA administration. sv 12:50 Neuro: Level of Consciousness is awake, alert, confused, Oriented to person, place, sv time, Pt becoming more confused. Dr Porter informed.. Respiratory: Respiratory effort is even, unlabored, Respiratory pattern is regular, symmetrical. 13:10 Reassessment: Report called to GLORIA Huang at [facility]. hb 14:00 Reassessment: Per son at bedside pt was last seen normal 1145. hb Vital Signs: 12:00 BP 136 / 65; Pulse 61; Resp 15; Pulse Ox 100% on R/A; Pain 0/10; sv 12:23 Weight 75.48 kg; dh3 12:26 BP 185 / 51; Pulse 76; Resp 12; Pulse Ox 99% ; sv 12:39 BP 152 / 78; Pulse 62; Resp 18; Pulse Ox 99% ; sv Shamar Coma Score: 12:15 Eye Response: spontaneous(4). Verbal Response: confused(4). Motor Response: obeys hb commands(6). Total: 14. 13:00 Eye Response: spontaneous(4). Verbal Response: confused(4). Motor Response: obeys hb commands(6). Total: 14. NIH Stroke Scale Scores: 12:28 NIHSS Score: 8 sv ED Course: 11:53 Arm band placed on right wrist. ss 11:55 Patient arrived in ED. em1 12:00 CT Stroke Brain w/o Contrast In Process Unspecified. EDMS 12:02 Triage completed. ss 12:02 Patient has correct armband on for positive identification. Placed in gown. Bed in low sv position. Side rails up X2. cafeteria monitor on. Pulse ox on. NIBP on. Head of bed elevated. 12:02 Missed attempt(s): 20 gauge in right antecubital area. Bleeding controlled, band aid sv applied, catheter tip intact. 12:03 Missed attempt(s): 24 gauge in right wrist. blood draw by the inside lab, missed sv attempt. Bleeding controlled, band aid applied, catheter tip intact. 12:04 Inserted saline lock: 20 gauge in left antecubital area, using aseptic technique. Blood sv collected. Flushed left antecubital with 5 ml normal saline. 12:12 X-ray completed. Portable x-ray completed in exam room. Patient tolerated procedure la2 well. 12:15 Stroke CXR 1 View In Process Unspecified. EDMS 12:15 initiated a transfer with Sanjeev at [facility] transfer center. eb 12:21 Jaspal Porter MD is Attending Physician. wa 12:[address] Richey the stroke team doctor from [facility] with ED doctor for eb patient transfer consulation. 12:27 Brenda Chester, GLORIA is Primary Nurse. sv 12:51 Missed attempt(s): 22 gauge in left forearm. Bleeding controlled, band aid applied, sv catheter tip intact. 12:53 Inserted saline lock: 22 gauge in right hand, using aseptic technique. em1 13:00 Consent for TPA obtained. hb 13:15 No provider procedures requiring assistance completed. Patient transferred, IV remains sv in place. intact. Administered Medications: 13:03 Drug: ACTIvase 68 mg {Co-Signature: hb (Kira Lewis RN).} Route: IV; Rate: sv calculated rate; Infused Over: 60 mins; Site: left antecubital; 13:15 Follow up: Response: No adverse reaction; IV Status: Infusion continued upon transfer sv Point of Care Testing: Blood Glucose: 12:02 Blood Glucose: 125 mg/dL; sv Ranges: Outcome: 13:00 ER care complete, transfer ordered by . wa 13:15 Patient left the ED. sv 13:15 Transferred by helicopter to [facility], Transfer form completed. sv 13:15 Condition: stable 13:15 Instructed on the need for transfer. NIH Stroke Scale - NIH Stroke Score Date: 02/14/2018 Time: 12:28 Total Score = 8 1a. Level of Consciousness (LOC) - 0(Alert) 1b. Level of Consciousness (LOC) (Year \T\ Age) - 0(Both) 1c. LOC Commands (Open \T\ Closes Eyes/Driller Multiple Spindle) - 1(One) 2. Best Gaze (Lateral Gaze Paresis) - 0(Normal) 3. Visual Field Loss - 0(No visual loss) 4. Facial Palsy - 1(Minor Paralysis) 5a. Left Arm: Motor (10-second hold) - 0(No drift) 5b. Right Arm: Motor (10-second hold) - 0(No drift) 6a. Left Leg: Motor (5-second hold - always test supine) - 1(Drift) 6b. Right Leg: Motor (5-second hold - always test supine) - 1(Drift) 7. Limb Ataxia (finger/nose \T\ heel/sesay - test with eyes open) - 2(Present in two limbs) 8. Sensory Loss (pinprick arms/legs/face) - 0(Normal) 9. Best Language: Aphasia (description/naming/reading) - 1(Mild to moderate aphasia) 10. Dysarthria (speech clarity - read or repeat words) - 1(Mild to Moderate) 11. Extinction and Inattention (visual/tactile/auditory/spatial/personal) - 0(No abnormality) Initials: sv Signatures: Dispatcher [employer] Brenda Justice RN RN sv Martinez, Eric em1 Malgorzata Barajas RN RN ss Baxter, Heather, RN RN hb Kylee Donovan 3 Jaspal Porter MD MD co Mamta Osorio Varsha Lopez RN Corrections: (The following items were deleted from the chart) 13:32 13:28 Patient left the ED. sv sv 13:50 12:00 Blood Glucose: Blood Glucose Jsswpsa=021 mg/dL. sv sv
[2018-02-14 13:32] VITALS: BP 136/65; O2SAT 100
== END 2018-02-14 13:28 | disposition short-term general hospital (02) ==
LOC: ER 11:53
DX: I63.9 Cerebral infarction, unspecified (principal); G81.94 Hemiplegia, unspecified affecting left nondominant side; I10 Essential (primary) hypertension; R29.810 Facial weakness; R47.01 Aphasia; R41.0 Disorientation, unspecified; Z86.73 Personal history of transient ischemic attack (TIA), and cerebral infarction without residual deficits; Z95.1 Presence of aortocoronary bypass graft; Z95.5 Presence of coronary angioplasty implant and graft; R29.708 NIHSS score 8
CPT/HCPCS: 36415; 37212; 70450; 71045; 80048; 82962; 85025; 85610; 85730; 92977; 99285; J2997; 96374

== ENCOUNTER 2018-03-10 12:53 | Emergency (ER) | payer OTHER, MEDICARE ==
--- OUTSIDE RECORDS SUMMARY | 2018-03-10 12:55 | XMS REPORT | Clinical Summary ---
:1935 Author Organization [facility] Address [address] [place] [address] Phone Care Team Providers Name Role Phone Unavailable Primary Care Provider Unavailable Allergies No Known Allergies Current Medications Prescription Sig. Disp. Refills Start End Date Status Date aspirin 81 MG EC Take 81 mg by Active tablet mouth daily. levothyroxine Take 75 mcg by Active (SYNTHROID, mouth Every LEVOTHROID) 75 MCG morning on an tablet empty stomach. multivitamin per Take 1 tablet by Active tablet mouth daily. desloratadine Take 5 mg by mouth Active (CLARINEX) 5 mg daily. tablet polyethylene glycol Take 17 g by mouth Active (GLYCOLAX) 17 gram daily. packet ondansetron Take 4 mg by mouth Active (ZOFRAN-ODT) 4 MG every 8 (eight) disintegrating hours as needed tablet for Nausea. torsemide (DEMADEX) Take 20 mg by Active 20 MG tablet mouth as needed. cholecalciferol, Take 2,000 Units Active vitamin D3, 2,000 by mouth daily. unit Tab calcium carbonate Take 600 mg by Active (OS-VALERIE) 600 mg mouth daily. calcium (1,500 mg) Tab cyanocobalamin Take 1,000 mcg by Active (VITAMIN B-12) 1000 mouth daily. MCG tablet amLODIPine Take 1 tablet (5 30 tablet 02/25/20 Active (NORVASC) 5 MG mg total) by mouth 8 19 tablet daily. atorvastatin Take 1 tablet (80 30 tablet 02/24/20 Active (LIPITOR) 80 MG mg total) by mouth 8 19 tablet nightly. carvedilol (COREG) Take 1 tablet (25 60 tablet 02/24/20 Active 25 MG tablet mg total) by mouth 8 19 2 (two) times daily. clopidogrel Take 1 tablet (75 30 tablet 11 02/25/20 Active (PLAVIX) 75 mg mg total) by mouth 8 19 tablet daily. losartan (COZAAR) Take 1 tablet (50 60 tablet 11 02/24/20 Active 50 MG tablet mg total) by mouth 8 19 2 (two) times daily. traMADol (ULTRAM) Take 1 tablet (50 30 tablet 0 Active 50 mg tablet mg total) by mouth 8 as needed for Pain. pravastatin Take 80 mg by 02/24/20 Discontinued (PRAVACHOL) 80 MG mouth daily. 18 tablet traMADol (ULTRAM) Take 50 mg by 02/24/20 Discontinued 50 mg tablet mouth as needed 18 for Pain. DEXTROSE 50 % IN Inject 25 mLs 0 02/24/20 Discontinued WATER (DEXTROSE (12.5 g total) 6 18 50%, D50W,) Syrg intravenously as injection needed (blood sugar less than 70 and patient unable to take PO juice or soda). minocycline Take 100 mg by 02/24/20 Discontinued (MINOCIN,DYNACIN) mouth 2 (two) 18 100 MG capsule times daily Last dose 01/03/2016 . HYDROcodone-acetami Take 1 tablet by 02/24/20 Discontinued nophen (NORCO mouth every 6 18 10-325) 10-325 mg (six) hours as per tablet needed for Pain. bisoprolol (ZEBETA) Take 10 mg by 02/24/20 Discontinued 10 MG tablet mouth daily. 18 cloNIDine HCl Take 0.1 mg by 02/24/20 Discontinued (CATAPRES) 0.1 MG mouth 2 (two) 18 tablet times daily. cilostazol (PLETAL) Take 100 mg by 02/24/20 Discontinued 100 MG tablet mouth. 18 vitamin E 400 UNIT Take 400 Units by 02/24/20 Discontinued capsule mouth daily. 18 Active Problems Problem Noted Date Hyperlipemia 02/18/2018 Received tissue plasminogen activator (t-PA) less than 24 hours prior to 02/15 arrival Acute ischemic stroke (HCC) 02/14/2018 Ulcer of great toe, right, with unspecified severity (HCC) 12/06/2015 S/P femoral-popliteal bypass surgery 12/04/2015 Gout 12/04/2015 Acute post-operative pain 12/04/2015 Essential hypertension with goal blood pressure less than 140/90 12/04/2015 NSTEMI (non-ST elevated myocardial infarction) ([facility]) 12/02/2015 Hypertension 12/02/2015 BRIONNA (acute kidney injury) ([facility]) 12/02/2015 Toe gangrene (HCC) 12/02/2015 Insomnia 12/02/2015 Neuropathy 12/02/2015 Physical deconditioning 12/02/2015 Cognitive impairment 12/02/2015 Protein calorie malnutrition ([facility]) 12/02/2015 Obesity 12/01/2015 PVD (peripheral vascular disease) ([facility]) 11/29/2015 Essential hypertension 11/29/2015 Hypothyroid 11/29/2015 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 ([facility]) Chest pain 11/29/2015 Hypertensive emergency 11/29/2015 Encounters Date Type Specialty Care Team Description 02/17/2018 Procedure Pass 02/17/2018 Surgery Malachi Crespo R & L CATH / CORONARY SMD ANGIOS / PCI 02/15/2018 Orders Only General Internal Medicine 02/14/2018 - Hospital Encounter Cardiology Barrett Barreto Acute ischemic stroke 02/23/2018 Jd, ([facility]);Received tissue MD plasminogen activator Josselyn, (t-PA) less than 24 MD Fabien hours prior to arrival;NSTEMI (non-ST elevated myocardial infarction) ([facility]);Paroxysmal atrial fibrillation ([facility]);Delirium;Cognit jeff impairment after 03/09/2017 Social History Tobacco Use Types Packs/Day Years Used Date Former Smoker 1 40 Quit: 11/28/2000 Smokeless Tobacco: Never Used Alcohol Use Drinks/Week oz/Week Comments Yes 7 Glasses of wine 4.2 NONE LAST 2 WEEKS Sex Assigned at Date Recorded Not on file Last Filed Vital Signs Vital Sign Reading Time Taken Blood Pressure 147/63 02/23/2018 12:00 PM CDT Pulse 55 02/23/2018 12:50 PM CDT Temperature 35.9 C (96.6 F) 02/23/2018 12:00 PM CDT Respiratory Rate 18 02/23/2018 12:50 PM CDT Oxygen Saturation 98% 02/23/2018 12:50 PM CDT Inhaled Oxygen Concentration - - Weight 73.3 kg (161 lb 8 oz) 02/22/2018 5:00 AM CDT Height 167.6 cm (5' 6") 02/14/2018 2:00 PM CDT Body Mass Index 26.07 02/22/2018 5:00 AM CDT Plan of Treatment Health Maintenance Due Date Last Done Comments INFLUENZA VACCINE 03/23/2018 Procedures Procedure Name Priority Date/Time Associated Diagnosis Comments R & L CATH / CORONARY 02/17/2018 3:30 PM Non-STEMI (non-ST ANGIOS / PCI CDT elevated myocardial infarction) (HCC) after 03/09/2017 Results CARDIAC CATH REPORT - SCAN (02/26/2018 10:30 AM)VASCULAR DIAGRAM -SCAN (2017 10:30 AM)RHYTHM STRIP - SCAN (02/26/2018 10:30 AM)CBC with platelet count + automated diff (02/22/2018 5:58 AM)Only the most recent of7 resultswithin the time period is included. Component Value Ref Range WBC 10.1 3.5 - 10.5 K/L RBC 3.36 (L) 3.93 - 5.22 M/L Hemoglobin 10.6 (L) 11.2 - 15.7 GM/DL Hematocrit 33.4 (L) 34.1 - 44.9 % MCV 99.4 (H) 79.4 - 94.8 fL MCH 31.5 25.6 - 32.2 pg MCHC 31.7 (L) 32.2 - 35.5 GM/DL RDW 13.2 11.7 - 14.4 % Platelets 206 150 - 450 K/CU MM MPV 11.1 9.4 - 12.3 fL nRBC 0 0 - 0 /100 WBC % Neutros 78 % % Lymphs 12 % % Monos 7 % % Eos 2 % % Baso 0 % # Neutros 7.86 (H) 1.56 - 6.13 K/L # Lymphs 1.21 1.18 - 3.74 K/L # Monos 0.73 (H) 0.24 - 0.36 K/L # Eos 0.19 0.04 - 0.36 K/L # Baso 0.04 0.01 - 0.08 K/L Immature Granulocytes-Relative 0 0 - 1 % Specimen Performing Laboratory Blood - Arm, Left [facility] [address] [place] [address] CBC with platelet count + automated diff (02/22/2018 5:58 AM)Only the most recent of7 resultswithin the time period is included. Specimen Performing Laboratory Blood Narrative The following orders were created for panel order CBC with platelet count + automated diff. Procedure Abnormality Status --------- ------ CBC with platelet count ...[[id number]]AbnormalFinal result Please view results for these tests on the individual orders. Basic Metabolic Panel (02/22/2018 5:58 AM)Only the most recent of9 resultswithin the time period is included. Component Value Ref Range Sodium 134 (L) 136 - 145 meq/L Potassium 4.5Comment: Specimen slightly hemolyzed 3.5 - 5.1 meq/L Chloride 108 (H) 98 - 107 meq/L CO2 18 (L) 22 - 29 meq/L BUN 15 7 - 21 mg/dL Creatinine 1.04Comment: Specimen slightly hemolyzed 0.57 - 1.25 mg/dL Glucose 117 (H) 70 - 105 mg/dL Calcium 8.8 8.4 - 10.2 mg/dL EGFR 51Comment: ESTIMATED GFR IS NOT ACCURATE mL/min/1.73 sq m CREATININE CLEARANCE IN PREDICTING GLOMERULAR FILTRATION RATE. ESTIMATED GFR IS NOT APPLICABLE FOR DIALYSIS PATIENTS. Specimen Performing Laboratory Blood - Arm, Left [address] [address] ECHOCARDIOGRAM REPORT - SCAN (02/20/2018 10:20 AM)Only the most recent of3 resultswithin the time period is included.Magnesium (02/20/2018 7:17 AM)Only the most recent of5 resultswithin the time period is included. Component Value Ref Range Magnesium 2.2 1.6 - 2.6 mg/dL Specimen Performing Laboratory Blood [address] [address] Limited 2D Echocardiogram (02/19/2018 4:57 PM)Only the most recent of2 resultswithin the time period is included. Component Value Ref Range Ejection Fraction Specimen Performing Laboratory [facility] MKCKESSON CPACS Narrative Transthoracic Echocardiography Report (TTE) Demographics Patient Name CASEY LYONS Date of Study 02/19/2018 JOSÉ MANUEL [id number] Female Visit Number [id number] Room Number 2427 Number Date of Birth1935Referring Physician Cherie Marin Age82 year(s)Magazine Designer Musa Malone Interpreting Physician SAULO Sultana Procedure Type of Study TTE procedure:LIMITED 2D ECHOCARDIOGRAM (Routine) Indications:Known or suspected heart failure, Coronary artery disease and Evaluation of LV Function Post AMI. Clinical History HGB 11.0 HCT 33.3 % NSTEMI, HFrEF, CAD, PAD, PVD, HTN, BRIONNA, HLD Height: 66 inches Weight: 72.12 kg (159 lbs) BSA: 1.81 m^2 BMI: 25.66 kg/m^2 HR: 70 bpm BP: 162/72 mmHg Summary The left ventricle is chamber size (by vol index) is mildly enlarged (female - LVED 62-70ml/m2). Moderate concentric LV hypertrophy. The following segment(s) appear severely hypokinetic: apical segments . The other segments are mildly hypokinetic. LVEF by Christy's method of disk assessment is sjxjhv-ia-xrbuimotph reduced (40%) . Previous Study Compared to the previous study 02/16/2018, LV systolic function has improved some. Findings discussed with Dr. Crespo. Signature Findings Left Ventricle The left ventricle is chamber size (by vol index) is mildly enlarged (female - LVED 62-70ml/m2). Moderate concentric LV hypertrophy. The following segment(s) appear severely hypokinetic: apical segments . The other segments are mildly hypokinetic. LVEF by Christy's method of disk assessment is mildly-to- moderately reduced (40%) . Left AtriumLA size is normal (16-34 ml/m2) . Right VentricleThe right ventricular chamber size and systolic function are within normal limits. Right Atrium RA size is normal. Aortic Valve Mild AoV cusp thickening. Mitral Valve Mild mitral annular calcification. Tricuspid ValveTV structure is normal. Unable to estimate peak systolic PA pressure; inadequate TR velocity signal. Pulmonic Valve PV is not well visualized. AortaAortic root size (SInus of Valsalva diameter) is normal . PericardiumNo pericardial effusion is visualized. An echo lucent space is noted consistent with prominent pericardial fat pad. IVC/SVC/PA/PV/PleuralThe estimated RA pressure by IVC dynamics indeterminate . Chambers/Structures Left Atrium LA Volume: 37.75 ml LA Area: 14.92 cm^ 2 LA Vol. Index: 21 ml/m^2 Left Ventricle LVIDd: 4.83 cm LVIDs: 3.22 cm LV Septum Diastolic: 1.46 cm LV PW Diastolic: 1.64 cm LV Length: 7.88 cm LVEDV Christy's:114.03 mlLV FS: 33.3 % LVESV Christy's:68.35 ml LVEF Christy's: 40.1 % LVEDVI: 63 ml/m ^2 LVESVI: 38 ml/m^2 LVOT Diameter: 1.71 cm Doppler/Quantitative Measurements LVOT LVOT Diameter: 1.71 cm LVOT Area: 2.3 cm^2 Procedure Note Interface, External Ris In - 02/20/2018 9:49 AM CDT Transthoracic Echocardiography Report (TTE) Demographics Patient Name CASEY LYONS Date of Study 02/19/2018 JOSÉ MANUEL Gender Female Visit Number [id number] Race Room Number 2427 Number Date of 1935 Referring Physician Cherie Marin Age 82 year(s) Magazine Designer Musa Malone Interpreting Physician SAULO Sultana Procedure Type of Study TTE procedure:LIMITED 2D ECHOCARDIOGRAM (Routine) Indications:Known or suspected heart failure, Coronary artery disease and Evaluation of LV Function Post AMI. Clinical History HGB 11.0 HCT 33.3 % NSTEMI, HFrEF, CAD, PAD, PVD, HTN, BRIONNA, HLD Height: 66 inches Weight: 72.12 kg (159 lbs) BSA: 1.81 m^2 BMI: 25.66 kg/m^2 HR: 70 bpm BP: 162/72 mmHg Summary The left ventricle is chamber size (by vol index) is mildly enlarged (female - LVED 62-70ml/m2). Moderate concentric LV hypertrophy. The following segment(s) appear severely hypokinetic: apical segments . The other segments are mildly hypokinetic. LVEF by Christy's method of disk assessment is mqkrja-ve-npwjklnhgi reduced (40%) . Previous Study Compared to the previous study 02/16/2018, LV systolic function has improved some. Findings discussed with Dr. Crespo. Signature Findings Left Ventricle The left ventricle is chamber size (by vol index) is mildly enlarged (female - LVED 62-70ml/m2). Moderate concentric LV hypertrophy. The following segment(s) appear severely hypokinetic: apical segments . The other segments are mildly hypokinetic. LVEF by Christy's method of disk assessment is kwnlta-tn-nubkqtlkuq reduced (40%) . Left Atrium LA size is normal (16-34 ml/m2) . Right Ventricle The right ventricular chamber size and systolic function are within normal limits. Right Atrium RA size is normal. Aortic Valve Mild AoV cusp thickening. Mitral Valve Mild mitral annular calcification. Tricuspid Valve TV structure is normal. Unable to estimate peak systolic PA pressure; inadequate TR velocity signal. Pulmonic Valve PV is not well visualized. Aorta Aortic root size (SInus of Valsalva diameter) is normal . Pericardium No pericardial effusion is visualized. An echo lucent space is noted consistent with prominent pericardial fat pad. IVC/SVC/PA/PV/Pleural The estimated RA pressure by IVC dynamics indeterminate . Chambers/Structures Left Atrium LA Volume: 37.75 ml LA Area: 14.92 cm^2 LA Vol. Index: 21 ml/m^2 Left Ventricle LVIDd: 4.83 cm LVIDs: 3.22 cm LV Septum Diastolic: 1.46 cm LV PW Diastolic: 1.64 cm LV Length: 7.88 cm LVEDV Christy's:114.03 ml LV FS: 33.3 % LVESV Christy's:68.35 ml LVEF Christy's: 40.1 % LVEDVI: 63 ml/m^2 LVESVI: 38 ml/m^2 LVOT Diameter: 1.71 cm Doppler/Quantitative Measurements LVOT LVOT Diameter: 1.71 cm LVOT Area: 2.3 cm^2 CBC (hemogram only) (02/19/2018 5:17 AM)Only the most recent of2 resultswithin the time period is included. Component Value Ref Range WBC 8.9 3.5 - 10.5 K/L RBC 3.46 (L) 3.93 - 5.22 M/L Hemoglobin 11.0 (L) 11.2 - 15.7 GM/DL Hematocrit 33.3 (L) 34.1 - 44.9 % MCV 96.2 (H) 79.4 - 94.8 fL MCH 31.8 25.6 - 32.2 pg MCHC 33.0 32.2 - 35.5 GM/DL RDW 13.1 11.7 - 14.4 % Platelets 218 150 - 450 K/CU MM MPV 10.9 9.4 - 12.3 fL nRBC 0 0 - 0 /100 WBC Specimen Performing Laboratory Blood - Arm, Right [address] [address] POC-Glucose meter (02/18/2018 1:58 PM) Component Value Ref Range POC-Glucose Meter 283 (H)Comment: TESTED AT [address] 70 - 110 mg/[place] [address] Specimen Performing Laboratory Blood [address] [address] POC ACTIVATED CLOTTING TIME (02/17/2018 11:36 PM)Only the most recent of4 resultswithin the time period is included. Component Value Ref Range Activated Clotting Time 92Comment: TESTED AT [address] sec [address] Specimen Performing Laboratory Blood [address] [address] Troponin I (02/17/2018 10:59 AM)Only the most recent of7 resultswithin the time period is included. Component Value Ref Range Troponin I 3.94 (HH) 0.00 - 0.03 ng/mL Specimen Performing Laboratory Blood - Arm, [address] [address] Narrative Troponin I (TnI) levels must be interpreted in the context of the presenting symptoms and the clinical findings. Elevated TnI levels indicate myocardial damage, but are not specific for ischemic heart disease. Elevated TnI levels are seen in patients with other cardiac conditions (including myocarditis and congestive heart failure), and slight TnI elevations occur in patients with other conditions, including sepsis, renal failure, acidosis, acute neurological disease, and persistent tachyarrhythmia. aPTT (02/17/2018 10:59 AM)Only the most recent of4 resultswithin the time period is included. Component Value Ref Range PTT 98.3 (H) 22.5 - 36.0 seconds Specimen Performing Laboratory Blood - Arm, [address] [address] Potassium (02/17/2018 10:59 AM) Component Value Ref Range Potassium 4.0 3.5 - 5.1 meq/L Specimen Performing Laboratory Blood - Arm, [address] [address] PT/aPTT (02/17/2018 1:33 AM)Only the most recent of3 resultswithin the time period is included. Component Value Ref Range Protime 15.2 (H) 11.7 - 14.7 seconds INR 1.2 <=5.9 PTT 146.1 (H) 22.5 - 36.0 seconds Specimen Performing Laboratory Blood - [facility], [address] [address] Narrative RECOMMENDED COUMADIN/WARFARIN INR THERAPY RANGES STANDARD DOSE: 2.0 - 3.0 Includes: PROPHYLAXIS for venous thrombosis, systemic embolization; TREATMENT for venous thrombosis and/or pulmonary embolus. HIGH RISK: Target INR is 2.5-3.5 for patients with mechanical heart valves. Prothrombin time/INR (02/17/2018 1:33 AM)Only the most recent of3 resultswithin the time period is included. Component Value Ref Range Protime 15.2 (H) 11.7 - 14.7 seconds INR 1.2 <=5.9 Specimen Performing Laboratory Blood - Arm, Right [facility] [address] [place] [address] Narrative RECOMMENDED COUMADIN/WARFARIN INR THERAPY RANGES STANDARD DOSE: 2.0 - 3.0 Includes: PROPHYLAXIS for venous thrombosis, systemic embolization; TREATMENT for venous thrombosis and/or pulmonary embolus. HIGH RISK: Target INR is 2.5-3.5 for patients with mechanical heart valves. B-type Natriuretic Factor (BNP) (02/16/2018 2:43 PM) Component Value Ref Range BNP 2849 (H) 0 - 100 pg/mL Specimen Performing Laboratory Blood - Arm, Right [address] [address] Narrative Please obtain with next scheduled blood draw- noNeed for extra poke Carotid doppler bilateral (02/16/2018 1:15 PM) Component Value Ref Range Ejection Fraction Specimen Performing Laboratory [facility] MKCK[facility]ON CPACS Impressions Right Impression 1. There is 50-69% diameter reduction (approximately 69% by 2-D measurement) in the internal carotid artery with heterogeneous plaque, a peak velocity of 221/20 cm/sec and an ICA/CCA peak systolic velocity ratio of 3.14. 2. There is >50% stenosis in the external carotid artery with a velocity of 228/226 cm/sec. 3. There is non-occluding plaque in the common carotid artery. 4. The vertebral artery flow is antegrade and normal. 5. The subclavian artery is within normal limits where visualized. Left Impression 1. Post endarterectomy, there is >50% stenosis in the internal carotid artery with a velocity of 256/22 cm/sec. 2. There is non-occluding plaque in the external carotid artery. 3. There is non-occluding plaque in the common carotid artery. 4. The vertebral artery flow is antegrade and normal. 5. The subclavian artery is within normal limits where visualized. Conclusions Summary Carotid duplex scanning and color flow imaging were performed bilaterally. The carotid exam was technically difficult due to patient's inability to cooperate. The right internal carotid artery had 50-69% hemodynamically significant stenosis (approximately 69% by 2-D measurement) with heterogeneous plaque. Post endarterectomy, the left internal carotid artery had >50% significant stenosis. The vertebral artery flow was antegrade and normal bilaterally. The subclavian arteries were patent with normal flow bilaterally where visualized. Signature Velocities are measured in cm/s ; Diameters are measured in cm Carotid Right Measurements + +----+----+-----+ + + + !Location !PSV !EDV !Angle!%Stenosis 2D!%Stenosis Doppler! Tortuosity ! + +----+----+-----+ + + + !Prox CCA !93.2!10.6!60 !! ! ! + +----+----+-----+ + + + !Dist CCA !70.4!7.62!60 !! ! ! + +----+----+-----+ + + + !Prox ICA !221 !20.6!60 !69% !50-69% ! ! + +----+----+-----+ + + + !Dist ICA !159 !24.3!60 !! ! ! + +----+----+-----+ + + + !Prox ECA !228 !26.2!60 !! ! ! + +----+----+-----+ + + + !Vertebral!45.6!11!60 !! ! ! + +----+----+-----+ + + + !Prox Subclavian!168 !!60 !! ! ! + +----+----+-----+ + + + - There is antegrade vertebral flow noted on the right side. - Additional Measurements:ICAPSV/CCAPSV 3.14.ICAEDV/CCAEDV 2.29. Carotid Left Measurements + +----+----+-----+ + + + !Location !PSV !EDV !Angle!%Stenosis 2D!%Stenosis Doppler! Tortuosity ! + +----+----+-----+ + + + !Prox CCA !80.9!9.43!60 !! ! ! + +----+----+-----+ + + + !Dist CCA !63.9!12.3!60 !! ! ! + +----+----+-----+ + + + !Prox ICA !256 !22!60 !!>50% ! ! + +----+----+-----+ + + + !Dist ICA !110 !19.6!60 !! ! ! + +----+----+-----+ + + + !Prox ECA !68!17!60 !! ! ! + +----+----+-----+ + + + !Vertebral!56.3!13.5!60 !! ! ! + +----+----+-----+ + + + !Prox Subclavian!164 !!60 !! ! ! + +----+----+-----+ + + + - There is antegrade vertebral flow noted on the left side. - Additional Measurements:ICAPSV/CCAPSV 4.01.ICAEDV/CCAEDV 2.33. Narrative [facility] - Carotid Duplex Study Demographics Patient NameSTOLissa OSPINA of Study 02/16 JOSÉ MANUEL Age 82 Visit [id number] GenderFemale Date of 1935 Referring [facility] Room Number 7517 Physician Magazine Designer Tomy Yan MD RVS Physician Kira Ye RVT Procedure Type of Study: Cerebral: Carotid, CAROTID DOPPLER, BILATERAL. Indications for Study:Stroke and Non STEMI. Patient Status:Routine. Study Location:Portable. Technical Quality:Technically Difficult. Risk Factors History of Disease + +----+ + !Diagnosis !Date!Comments ! + +----+ + !History/Risk!!Acute ischemic stroke, PVD- Right femoral-popliteal ! !Factors:!!bypass (12/04/15), Left Femoral-Popliteal bypass! !!!(2000), HTN, CAD, NSTEMI, HLD, Former Smoker, Left CEA! !!!(12/2000) ! + +----+ + Procedure Note Interface, External Ris In - 02/17/2018 5:15 PM CDT [facility] - Carotid Duplex Study Demographics Patient Name CASEY LYONS Date of Study 02/16/2018 JOSÉ MANUEL Age 82 Visit Number [id number] Gender Female Accession Number [id number] Date of 1935 Referring [facility] Room Number 7517 Physician Magazine Designer Tomy Yan MD RVS Physician Kira Ye RVT Procedure Type of Study: Cerebral: Carotid, CAROTID DOPPLER, BILATERAL. Indications for Study:Stroke and Non STEMI. Patient Status:Routine. Study Location:Portable. Technical Quality:Technically Difficult. Risk Factors History of Disease + +----+ + !Diagnosis !Date!Comments ! + +----+ + !History/Risk ! !Acute ischemic stroke, PVD- Right femoral-popliteal ! !Factors: ! !bypass (12/04/15), Left Femoral-Popliteal bypass ! ! ! !(2000), HTN, CAD, NSTEMI, HLD, Former Smoker, Left CEA! ! ! !(12/2000) ! + +----+ + Impressions Right Impression 1. There is 50-69% diameter reduction (approximately 69% by 2-D measurement) in the internal carotid artery with heterogeneous plaque, a peak velocity of 221/20 cm/sec and an ICA/CCA peak systolic velocity ratio of 3.14. 2. There is >50% stenosis in the external carotid artery with a velocity of 228/226 cm/sec. 3. There is non-occluding plaque in the common carotid artery. 4. The vertebral artery flow is antegrade and normal. 5. The subclavian artery is within normal limits where visualized. Left Impression 1. Post endarterectomy, there is >50% stenosis in the internal carotid artery with a velocity of 256/22 cm/sec. 2. There is non-occluding plaque in the external carotid artery. 3. There is non-occluding plaque in the common carotid artery. 4. The vertebral artery flow is antegrade and normal. 5. The subclavian artery is within normal limits where visualized. Conclusions Summary Carotid duplex scanning and color flow imaging were performed bilaterally. The carotid exam was technically difficult due to patient's inability to cooperate. The right internal carotid artery had 50-69% hemodynamically significant stenosis (approximately 69% by 2-D measurement) with heterogeneous plaque. Post endarterectomy, the left internal carotid artery had >50% significant stenosis. The vertebral artery flow was antegrade and normal bilaterally. The subclavian arteries were patent with normal flow bilaterally where visualized. Signature Velocities are measured in cm/s ; Diameters are measured in cm Carotid Right Measurements + +----+----+-----+ + + + !Location !PSV !EDV !Angle!%Stenosis 2D!%Stenosis Doppler!Tortuosity ! + +----+----+-----+ + + + !Prox CCA !93.2!10.6!60 ! ! ! ! + +----+----+-----+ + + + !Dist CCA !70.4!7.62!60 ! ! ! ! + +----+----+-----+ + + + !Prox ICA !221 !20.6!60 !69% !50-69% ! ! + +----+----+-----+ + + + !Dist ICA !159 !24.3!60 ! ! ! ! + +----+----+-----+ + + + !Prox ECA !228 !26.2!60 ! ! ! ! + +----+----+-----+ + + + !Vertebral !45.6!11 !60 ! ! ! ! + +----+----+-----+ + + + !Prox Subclavian!168 ! !60 ! ! ! ! + +----+----+-----+ + + + - There is antegrade vertebral flow noted on the right side. - Additional Measurements:ICAPSV/CCAPSV 3.14.ICAEDV/CCAEDV 2.29. Carotid Left Measurements + +----+----+-----+ + + + !Location !PSV !EDV !Angle!%Stenosis 2D!%Stenosis Doppler!Tortuosity ! + +----+----+-----+ + + + !Prox CCA !80.9!9.43!60 ! ! ! ! + +----+----+-----+ + + + !Dist CCA !63.9!12.3!60 ! ! ! ! + +----+----+-----+ + + + !Prox ICA !256 !22 !60 ! !>50% ! ! + +----+----+-----+ + + + !Dist ICA !110 !19.6!60 ! ! ! ! + +----+----+-----+ + + + !Prox ECA !68 !17 !60 ! ! ! ! + +----+----+-----+ + + + !Vertebral !56.3!13.5!60 ! ! ! ! + +----+----+-----+ + + + !Prox Subclavian!164 ! !60 ! ! ! ! + +----+----+-----+ + + + - There is antegrade vertebral flow noted on the left side. - Additional Measurements:ICAPSV/CCAPSV 4.01.ICAEDV/CCAEDV 2.33. XR chest 1 view portable / bedside (02/16/2018 10:35 AM) Specimen Performing Laboratory GE RIS Narrative FINAL REPORT HISTORY : chest pain. Comparison: Chest x-ray of 12/10 is unavailable at this time for comparison. However, a chest x-ray dated 12/10/2015 is available for comparison. Comment: Single portable view of the chest was obtained. The cardiac silhouette size is enlarged. There are findings of pulmonary venous congestion. Interstitial prominence may represent interstitial edema. No pneumothorax is seen. There is some nonspecific patchy left basilar airspace disease which may represent atelectasis. Pneumonitis or aspiration cannot be excluded. There is a tortuous/ectatic thoracic aorta with some atherosclerotic calcification. Signed: Britt Gamble MD Report Verified Date/Time:02/16/2018 11:13:08 Reading Location: [facility] Radiology Reading Room Procedure Note Interface, External Ris In - 02/16/2018 11:15 AM CDT FINAL REPORT HISTORY : chest pain. Comparison: Chest x-ray of 12/10 is unavailable at this time for comparison. However, a chest x-ray dated 12/10/2015 is available for comparison. Comment: Single portable view of the chest was obtained. The cardiac silhouette size is enlarged. There are findings of pulmonary venous congestion. Interstitial prominence may represent interstitial edema. No pneumothorax is seen. There is some nonspecific patchy left basilar airspace disease which may represent atelectasis. Pneumonitis or aspiration cannot be excluded. There is a tortuous/ectatic thoracic aorta with some atherosclerotic calcification. Signed: Britt Gamble MD Report Verified Date/Time: 02/16/2018 11:13:08 Reading Location: [facility] Radiology Reading Room Platelet count (02/16/2018 8:30 AM) Component Value Ref Range Platelets 230 150 - 450 K/CU MM Specimen Performing Laboratory Blood - Arm, Right [facility] [address] [address] [address] brain without IV contrast portable (02/16/2018 5:45 AM) Specimen Performing Laboratory GE RIS Narrative FINAL REPORT EXAM: CT head without contrast, portable. CLINICAL HISTORY: post-tpa COMPARISON: Head CT 12/03/2015. TECHNIQUE: Portable CT images of the head were obtained without intravenous contrast.This exam was performed according to our departmental dose optimization program which includes automated exposure control, adjustment of the mA and/or kV according to patient's size and/or use of iterative reconstructive technique. FINDINGS: The study is very limited by motion artifact. There is generalized parenchymal atrophy. There is no gross acute intracranial hemorrhage or mass effect. There is no herniation or hydrocephalus. The basal cisterns are patent. There are white matter microvascular ischemic changes. There is no large demarcated acute territorial infarct. There is intracranial calcific atherosclerosis. There are bilateral lens replacements.The visualized paranasal sinuses are clear. There is nonopacification of the right mastoid tip. The left mastoid air cells are clear. The skull base and calvarium are intact. IMPRESSION: Motion limited exam. White matter matter microvascular ischemic changes. No gross acute intracranial hemorrhage or mass effect. No large demarcated acute territorial infarct however evaluation is limited due to CT modality and motion artifact. Signed: Barney Han MD Report Verified Date/Time:02/16/2018 06:53:18 Reading Location: [address] Transitional Reading Room Procedure Note Interface, External Ris In - 02/16/2018 6:55 AM CDT FINAL REPORT EXAM: CT head without contrast, portable. CLINICAL HISTORY: post-tpa COMPARISON: Head CT 12/03/2015. TECHNIQUE: Portable CT images of the head were obtained without intravenous contrast. This exam was performed according to our departmental dose optimization program which includes automated exposure control, adjustment of the mA and/or kV according to patient's size and/or use of iterative reconstructive technique. FINDINGS: The study is very limited by motion artifact. There is generalized parenchymal atrophy. There is no gross acute intracranial hemorrhage or mass effect. There is no herniation or hydrocephalus. The basal cisterns are patent. There are white matter microvascular ischemic changes. There is no large demarcated acute territorial infarct. There is intracranial calcific atherosclerosis. There are bilateral lens replacements. The visualized paranasal sinuses are clear. There is nonopacification of the right mastoid tip. The left mastoid air cells are clear. The skull base and calvarium are intact. IMPRESSION: Motion limited exam. White matter matter microvascular ischemic changes. No gross acute intracranial hemorrhage or mass effect. No large demarcated acute territorial infarct however evaluation is limited due to CT modality and motion artifact. Signed: Barney Han MD Report Verified Date/Time: 02/16/2018 06:53:18 Reading Location: [address] Transitional Reading Room 12 lead (02/16/2018 4:16 AM)Only the most recent of3 resultswithin the time period is included. Specimen Performing Laboratory [employer] MUSE Narrative Ventricular Rate 119 BPM Atrial Rate 111 BPM QRS Duration 88 ms Q-T Interval 350 ms QTC Calculation(Bazett) 492 ms R [place] 47 degrees T [place] 143 degrees Atrial fibrillation with rapid ventricular response T wave inversion lateral leads consider postischemic changes Prolonged QT Abnormal ECG When compared with ECG of 16-FEB-2018 00:20, No significant changes Confirmed by MD KILLIAN YOCHAI ([id number]) on 02/17/2018 6:37:12 AM Procedure Note Interface, External Ris In - 02/17/2018 6:37 AM CDT Ventricular Rate 119 BPM Atrial Rate 111 BPM QRS Duration 88 ms Q-T Interval 350 ms QTC Calculation(Bazett) 492 ms R [place] 47 degrees T [place] 143 degrees Atrial fibrillation with rapid ventricular response T wave inversion lateral leads consider postischemic changes Prolonged QT Abnormal ECG When compared with ECG of 16-FEB-2018 00:20, No significant changes Confirmed by MD KILLIAN YOCHAI ([id number]) on 02/17/2018 6:37:12 AM 2D Echo W/Doppler(CW/PW/Color) (02/15/2018 11:45 AM) Component Value Ref Range Ejection Fraction Specimen Performing Laboratory [facility] ECHO [facility] Narrative Transthoracic Echocardiography Report (TTE) Demographics Patient Name CASEY LYONS Date of Study 02/15/2018 JOSÉ MANUEL [id number] Female Visit Number [id number] Room Number [id number] Number Date of Birth1935Referring Physician Barrett Barreto 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 Clinical History CAD, HLD, HTN, Hypothyroidism, PVD, Coronary Stent x1, Former Smoker HGB 11.0 HCT 33.7 % Contrast Medium: Bubble Study. Amount - 20 ml Height: 66 inches Weight: 74.39 kg (164 lbs) BSA: 1.84 m^2 BMI: 26.47 kg/m^2 HR: 87 bpm BP: 219/86 mmHg Summary 1. Grade 1 diastolic dysfunction (impaired relaxation and low-normal LA pressure). 2. LVEF by Christy's method of disk assessment is mildly reduced (45-49%) . 3. Basal inferior appears akinetic. Apical septum, mid to apical inferolateral appear severely hypokinetic. [place] is forshortened but appears hypokinetic. Previous Study In comparison with the prior exam 12-06-15 the following changes are noted: LV systolic function has improved . Signature Findings Technical Quality: Good visualization Left Ventricle The left ventricle is chamber size (by PSLAX dimension) is mildly enlarged ( female - LVIDd 5.3-5.6cm) . Normal LV wall thickness. Basal inferior appears akinetic. Apical septum, mid to apical inferolateral appear severely hypokinetic. [place] is forshortened but appears hypokinetic. Septal motion is abnormal, likely related to prior cardiac surgery . The other segments contract normally. Global LV systolic function mildly reduced . LVEF by Christy's method of disk assessment is mildly reduced (45-49%) . The LVEF was measured using Christy's bi-plane method of disk . Normal (cardiac index 2-3 L/min /m2) cardiac output state at rest is noted. Grade 1 diastolic dysfunction (impaired relaxation and low-normal LA pressure). Left AtriumLA size is mildly enlarged (35-41 ml/m2) . Right VentricleThe right ventricular chamber size and systolic function are within normal limits. Right Atrium RA cavity size is normal . Aortic Valve Mild AoV cusp thickening. Mitral Valve Mild mitral annular calcification. Mild MV leaflet thickening. Trace mitral regurgitation. Tricuspid ValveUnable to estimate peak systolic PA pressure; inadequate TR velocity signal. Pulmonic Valve PV is not well visualized; function appears normal by Doppler visualized. AortaAortic root size (SInus of Valsalva diameter) is normal . Proximal ascending aorta size is normal . PericardiumNo significant pericardial effusion is visualized. IVC/SVC/PA/PV/PleuralThe estimated RA pressure by IVC dynamics 0-5mmHg . Chambers/Structures Left Atrium LA Volume: 76.17 ml LA Area: 20.64 cm^ 2 LA Vol. Index: 41 ml/m^2 Left Ventricle LVIDd: 5.27 cm LV Septum Diastolic: 0.88 cm LV PW Diastolic: 1.1 cm LVEDV Christy's:138.29 ml LVESV Christy's:71.91 ml LVEF Christy's: 48 %LVEDVI: 75 ml/m^2 LVESVI: 39 ml/m^2 LVOT Diameter: 1.89 cm Right Ventricle TAPSE: 1.48 cm Aorta Ao Root S of Linette.: 2.93 cmAscending Aorta: 3.08 cm Doppler/Quantitative Measurements Mitral Valve MV Peak E-Wave: 1.19 m/sMV Peak A-Wave: 1.39 m/s E/ A Ratio: 0.85 Peak Gradient: 5.65 mmHg Deceleration Time: 191.6 msec MV Marcos. 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 Clinical History CAD, HLD, HTN, Hypothyroidism, PVD, Coronary Stent x1, Former Smoker HGB 11.0 HCT 33.7 % Contrast Medium: Bubble Study. Amount - 20 ml Height: 66 inches Weight: 74.39 kg (164 lbs) BSA: 1.84 m^2 BMI: 26.47 kg/m^2 HR: 87 bpm BP: 219/86 mmHg Summary 1. Grade 1 diastolic dysfunction (impaired relaxation and low-normal LA pressure). 2. LVEF by Christy's method of disk assessment is mildly reduced (45-49%) . 3. Basal inferior appears akinetic. Apical septum, mid to apical inferolateral appear severely hypokinetic. [place] is forshortened but appears hypokinetic. Previous Study In comparison with the prior exam 6-15-16 the following changes are noted: LV systolic function has improved . Signature Findings Technical Quality: Good visualization Left Ventricle The left ventricle is chamber size (by PSLAX dimension) is mildly enlarged (female - LVIDd 5.3-5.6cm) . Normal LV wall thickness. Basal inferior appears akinetic. Apical septum, mid to apical inferolateral appear severely hypokinetic. [place] is forshortened but appears hypokinetic. Septal motion is abnormal, likely related to prior cardiac surgery . The other segments contract normally. Global LV systolic function mildly reduced . LVEF by Christy's method of disk assessment is mildly reduced (45-49%) . The LVEF was measured using Christy's bi-plane method of disk . Normal (cardiac index 2-3 L/min/m2) cardiac output state at rest is noted. Grade 1 diastolic dysfunction (impaired relaxation and low-normal LA pressure). Left Atrium LA size is mildly enlarged (35-41 ml/m2) . Right Ventricle The right ventricular chamber size and systolic function are within normal limits. Right Atrium RA cavity size is normal . Aortic Valve Mild AoV cusp thickening. Mitral Valve Mild mitral annular calcification. Mild MV leaflet thickening. Trace mitral regurgitation. Tricuspid Valve Unable to estimate peak systolic PA pressure; inadequate TR velocity signal. Pulmonic Valve PV is not well visualized; function appears normal by Doppler visualized. Aorta Aortic root size (SInus of Valsalva diameter) is normal . Proximal ascending aorta size is normal . Pericardium No significant pericardial effusion is visualized. IVC/SVC/PA/PV/Pleural The estimated RA pressure by IVC dynamics 0-5mmHg . Chambers/Structures Left Atrium LA Volume: 76.17 ml LA Area: 20.64 cm^2 LA Vol. Index: 41 ml/m^2 Left Ventricle LVIDd: 5.27 cm LV Septum Diastolic: 0.88 cm LV PW Diastolic: 1.1 cm LVEDV Christy's:138.29 ml LVESV Christy's:71.91 ml LVEF Christy's: 48 % LVEDVI: 75 ml/m^2 LVESVI: 39 ml/m^2 LVOT Diameter: 1.89 cm Right Ventricle TAPSE: 1.48 cm Aorta Ao Root S of Linette.: 2.93 cm Ascending Aorta: 3.08 cm Doppler/Quantitative Measurements Mitral Valve MV Peak E-Wave: 1.19 m/s MV Peak A-Wave: 1.39 m/s E/A Ratio: 0.85 Peak Gradient: 5.65 mmHg Deceleration Time: 191.6 msec MV Marcos. Peak: Tissue Doppler E' Lateral Velocity: 0.06 m/s E/E': 21.61 LVOT Peak Velocity: 1.06 m/s Peak Gradient: 4.47 mmHg Mean Velocity: 0.7 m/s Mean Gradient: 2.22 mmHg LVOT Diameter: 1.89 cm LVOT VTI: 22.05 cm LVOT Area: 2.81 cm^2 LVOT SV:61.83 ml LVOT CO: 5.38 l/min LVOT CI: 2.92 l/min/m^2 Vitamin B12 and Folate (02/15/2018 4:20 AM) Component Value Ref Range Vitamin B12 1440 (H) 213 - 816 pg/mL Folate 7.6 >=7.0 ng/mL Specimen Performing Laboratory Blood [address] [address] RPR (02/15/2018 4:20 AM) Component Value Ref Range RPR Nonreactive Nonreactive Specimen Performing Laboratory Blood [address] [address] TSH (02/15/2018 4:20 AM) Component Value Ref Range TSH 0.94 0.35 - 4.94 uIU/mL Specimen Performing Laboratory Blood [address] [address] Hemoglobin A1c (02/15/2018 4:20 AM) Component Value Ref Range Hemoglobin A1C 5.4 4.3 - 6.1 % Specimen Performing Laboratory Blood [address] [address] Lipid panel (02/15/2018 4:20 AM) Component Value Ref Range Triglycerides 137Comment: Specimen slightly hemolyzed mg/dL Cholesterol 155Comment: Specimen slightly hemolyzed mg/dL HDL 59 mg/dL LDL Calculated 69 mg/dL Specimen Performing Laboratory Blood [address] [address] Narrative Triglyceride Reference Range: Low Risk <150 [id number] High Risk 200-499 Very High Risk>=500 Cholesterol Reference Range: Low Risk <200 [id number] High Risk>240 HDL Cholesterol Reference Range: Low Risk >=60 High Risk <40 LDL Cholesterol Reference Range: Optimal<100 Near [id number] Very High >=190 after 03/09/2017 Advance Directives Patient has advance directives. For more information, please contact:[address] [phone]
--- OUTSIDE RECORDS SUMMARY | 2018-03-10 12:55 | XMS REPORT ---
:1935 [facility] Address [address] [place] [address] Dr. [address] [place] [id number] Care Team Providers Name Role Phone ORLANDO EPPS Unavailable Unavailable Problems This patient has no known problems. Allergies, Adverse Reactions, Alerts This patient has no known allergies or adverse reactions. Medications This patient has no known medications. Results Test Description Test Time Test Comments Text Results Atomic Results Result Comments BASIC METABOLIC PANEL 2018-02-22 07:17:00 Test Item Value Reference Range Comments SODIUM (BEAKER) (test 134 meq/L 136-145 jigr=193) POTASSIUM (BEAKER) (test 4.5 meq/L 3.5-5.1 Specimen slightly hemolyzed zehb=573) CHLORIDE (BEAKER) (test 108 meq/L 98-107 xrbq=401) CO2 (BEAKER) (test gceh=651) 18 meq/L 22-29 BLOOD UREA NITROGEN (BEAKER) 15 mg/dL 7-21 (test wurr=293) CREATININE (BEAKER) (test 1.04 mg/dL 0.57-1.25 Specimen slightly hemolyzed ecgo=593) GLUCOSE RANDOM (BEAKER) 117 mg/dL 70-105 (test tlqv=529) CALCIUM (BEAKER) (test 8.8 mg/dL 8.4-10.2 rqlg=805) EGFR (BEAKER) (test 51 mL/min/1.73 sq m ESTIMATED GFR IS NOT bejc=8658) ACCURATE CREATININE CLEARANCE IN PREDICTING GLOMERULAR FILTRATION RATE. ESTIMATED GFR IS NOT APPLICABLE FOR DIALYSIS PATIENTS. CBC W/PLT COUNT & AUTO [id number] 06:55:00 Test Item Value Reference Range Comments WHITE BLOOD CELL COUNT (BEAKER) (test habf=371) 10.1 K/ L 3.5-10.5 RED BLOOD CELL COUNT (BEAKER) (test vfne=765) 3.36 M/ L 3.93-5.22 HEMOGLOBIN (BEAKER) (test rbib=632) 10.6 GM/DL 11.2-15.7 HEMATOCRIT (BEAKER) (test fjwa=271) 33.4 % 34.1-44.9 MEAN CORPUSCULAR VOLUME (BEAKER) (test tjjz=845) 99.4 fL 79.4-94.8 MEAN CORPUSCULAR HEMOGLOBIN (BEAKER) (test 31.5 pg 25.6-32.2 wvht=328) MEAN CORPUSCULAR HEMOGLOBIN CONC (BEAKER) (test 31.7 GM/DL 32.2-35.5 drys=535) RED CELL DISTRIBUTION WIDTH (BEAKER) (test 13.2 % 11.7-14.4 xztm=374) PLATELET COUNT (BEAKER) (test xttl=822) 206 K/CU MM 150-450 MEAN PLATELET VOLUME (BEAKER) (test juyt=646) 11.1 fL 9.4-12.3 NUCLEATED RED BLOOD CELLS (BEAKER) (test 0 /100 WBC 0-0 pkmd=581) NEUTROPHILS RELATIVE PERCENT (BEAKER) (test 78 % wkxb=042) LYMPHOCYTES RELATIVE PERCENT (BEAKER) (test 12 % budp=387) MONOCYTES RELATIVE PERCENT (BEAKER) (test 7 % dttz=766) EOSINOPHILS RELATIVE PERCENT (BEAKER) (test 2 % lmyr=632) BASOPHILS RELATIVE PERCENT (BEAKER) (test 0 % iral=618) NEUTROPHILS ABSOLUTE COUNT (BEAKER) (test 7.86 K/ L 1.56-6.13 afju=325) LYMPHOCYTES ABSOLUTE COUNT (BEAKER) (test 1.21 K/ L 1.18-3.74 zcty=374) MONOCYTES ABSOLUTE COUNT (BEAKER) (test 0.73 K/ L 0.24-0.36 okay=221) EOSINOPHILS ABSOLUTE COUNT (BEAKER) (test 0.19 K/ L 0.04-0.36 zdko=938) BASOPHILS ABSOLUTE COUNT (BEAKER) (test 0.04 K/ L 0.01-0.08 djmc=957) IMMATURE GRANULOCYTES-RELATIVE PERCENT (BEAKER) 0 % 0-1 (test bedj=6126) BASIC METABOLIC [id number] 05:32:00 Test Item Value Reference Range Comments SODIUM (BEAKER) (test 135 meq/L 136-145 amic=059) POTASSIUM (BEAKER) (test 3.9 meq/L 3.5-5.1 ross=960) CHLORIDE (BEAKER) (test 108 meq/L 98-107 twiv=207) CO2 (BEAKER) (test 20 meq/L 22-29 minf=538) BLOOD UREA NITROGEN 16 mg/dL 7-21 (BEAKER) (test tfai=024) CREATININE (BEAKER) (test 1.03 mg/dL 0.57-1.25 dvam=554) GLUCOSE RANDOM (BEAKER) 102 mg/dL 70-105 (test nnij=477) CALCIUM (BEAKER) (test 8.7 mg/dL 8.4-10.2 sddh=200) EGFR (BEAKER) (test 52 mL/min/1.73 sq m ESTIMATED GFR IS NOT gmzf=6541) ACCURATE CREATININE CLEARANCE IN PREDICTING GLOMERULAR FILTRATION RATE. ESTIMATED GFR IS NOT APPLICABLE FOR DIALYSIS PATIENTS. CBC W/PLT COUNT & AUTO [id number] 05:11:00 Test Item Value Reference Range Comments WHITE BLOOD CELL COUNT (BEAKER) (test twtr=650) 6.0 K/ L 3.5-10.5 RED BLOOD CELL COUNT (BEAKER) (test vjlg=197) 3.26 M/ L 3.93-5.22 HEMOGLOBIN (BEAKER) (test xovw=205) 10.0 GM/DL 11.2-15.7 HEMATOCRIT (BEAKER) (test vqzc=664) 31.7 % 34.1-44.9 MEAN CORPUSCULAR VOLUME (BEAKER) (test uipx=883) 97.2 fL 79.4-94.8 MEAN CORPUSCULAR HEMOGLOBIN (BEAKER) (test 30.7 pg 25.6-32.2 ifrn=786) MEAN CORPUSCULAR HEMOGLOBIN CONC (BEAKER) (test 31.5 GM/DL 32.2-35.5 xgqo=355) RED CELL DISTRIBUTION WIDTH (BEAKER) (test 13.2 % 11.7-14.4 atwk=091) PLATELET COUNT (BEAKER) (test eyrl=165) 199 K/CU MM 150-450 MEAN PLATELET VOLUME (BEAKER) (test sgid=959) 10.7 fL 9.4-12.3 NUCLEATED RED BLOOD CELLS (BEAKER) (test 0 /100 WBC 0-0 eqea=981) NEUTROPHILS RELATIVE PERCENT (BEAKER) (test 60 % hyre=805) LYMPHOCYTES RELATIVE PERCENT (BEAKER) (test 23 % kqmd=239) MONOCYTES RELATIVE PERCENT (BEAKER) (test 13 % ripf=630) EOSINOPHILS RELATIVE PERCENT (BEAKER) (test 3 % cttj=998) BASOPHILS RELATIVE PERCENT (BEAKER) (test 0 % adwm=231) NEUTROPHILS ABSOLUTE COUNT (BEAKER) (test 3.59 K/ L 1.56-6.13 zsae=173) LYMPHOCYTES ABSOLUTE COUNT (BEAKER) (test 1.36 K/ L 1.18-3.74 koez=441) MONOCYTES ABSOLUTE COUNT (BEAKER) (test 0.77 K/ L 0.24-0.36 whxj=498) EOSINOPHILS ABSOLUTE COUNT (BEAKER) (test 0.20 K/ L 0.04-0.36 dbkk=160) BASOPHILS ABSOLUTE COUNT (BEAKER) (test 0.02 K/ L 0.01-0.08 qxjf=759) IMMATURE GRANULOCYTES-RELATIVE PERCENT (BEAKER) 0 % 0-1 (test yruj=4412) [id number] 07:46:00 Test Item Value Reference Range Comments MAGNESIUM (BEAKER) (test fyqc=372) 2.2 mg/dL 1.6-2.6 BASIC METABOLIC [id number] 07:46:00 Test Item Value Reference Range Comments SODIUM (BEAKER) (test 135 meq/L 136-145 amsx=397) POTASSIUM (BEAKER) (test 3.6 meq/L 3.5-5.1 nnqx=939) CHLORIDE (BEAKER) (test 106 meq/L 98-107 lvfj=724) CO2 (BEAKER) (test 21 meq/L 22-29 gkzc=154) BLOOD UREA NITROGEN 21 mg/dL 7-21 (BEAKER) (test qwoe=969) CREATININE (BEAKER) (test 1.11 mg/dL 0.57-1.25 cowk=587) GLUCOSE RANDOM (BEAKER) 97 mg/dL 70-105 (test zhfu=291) CALCIUM (BEAKER) (test 8.8 mg/dL 8.4-10.2 szdo=437) EGFR (BEAKER) (test 47 mL/min/1.73 sq m ESTIMATED GFR IS NOT blvh=6799) ACCURATE CREATININE CLEARANCE IN PREDICTING GLOMERULAR FILTRATION RATE. ESTIMATED GFR IS NOT APPLICABLE FOR DIALYSIS PATIENTS. CBC W/PLT COUNT & AUTO [id number] 07:31:00 Test Item Value Reference Range Comments WHITE BLOOD CELL COUNT (BEAKER) (test vjjx=572) 7.1 K/ L 3.5-10.5 RED BLOOD CELL COUNT (BEAKER) (test oqlg=168) 3.41 M/ L 3.93-5.22 HEMOGLOBIN (BEAKER) (test gote=782) 10.7 GM/DL 11.2-15.7 HEMATOCRIT (BEAKER) (test tkpo=103) 32.7 % 34.1-44.9 MEAN CORPUSCULAR VOLUME (BEAKER) (test rkgj=907) 95.9 fL 79.4-94.8 MEAN CORPUSCULAR HEMOGLOBIN (BEAKER) (test 31.4 pg 25.6-32.2 wzdf=953) MEAN CORPUSCULAR HEMOGLOBIN CONC (BEAKER) (test 32.7 GM/DL 32.2-35.5 ebbv=639) RED CELL DISTRIBUTION WIDTH (BEAKER) (test 13.2 % 11.7-14.4 oqzs=170) PLATELET COUNT (BEAKER) (test vsyy=958) 216 K/CU MM 150-450 MEAN PLATELET VOLUME (BEAKER) (test eety=571) 10.5 fL 9.4-12.3 NUCLEATED RED BLOOD CELLS (BEAKER) (test 0 /100 WBC 0-0 yrrz=644) NEUTROPHILS RELATIVE PERCENT (BEAKER) (test 66 % jzeb=292) LYMPHOCYTES RELATIVE PERCENT (BEAKER) (test 20 % aihg=644) MONOCYTES RELATIVE PERCENT (BEAKER) (test 11 % opgr=888) EOSINOPHILS RELATIVE PERCENT (BEAKER) (test 3 % nqdd=251) BASOPHILS RELATIVE PERCENT (BEAKER) (test 0 % tnyl=033) NEUTROPHILS ABSOLUTE COUNT (BEAKER) (test 4.69 K/ L 1.56-6.13 ggdu=400) LYMPHOCYTES ABSOLUTE COUNT (BEAKER) (test 1.44 K/ L 1.18-3.74 filq=695) MONOCYTES ABSOLUTE COUNT (BEAKER) (test 0.78 K/ L 0.24-0.36 lodp=886) EOSINOPHILS ABSOLUTE COUNT (BEAKER) (test 0.18 K/ L 0.04-0.36 ozzn=768) BASOPHILS ABSOLUTE COUNT (BEAKER) (test 0.02 K/ L 0.01-0.08 ahbk=046) IMMATURE GRANULOCYTES-RELATIVE PERCENT (BEAKER) 0 % 0-1 (test hxlt=6590) BASIC METABOLIC [id number] 14:48:00 Test Item Value Reference Range Comments SODIUM (BEAKER) (test 133 meq/L 136-145 kjph=195) POTASSIUM (BEAKER) (test 4.3 meq/L 3.5-5.1 kyiq=712) CHLORIDE (BEAKER) (test 103 meq/L 98-107 pvts=355) CO2 (BEAKER) (test 21 meq/L 22-29 mtgq=669) BLOOD UREA NITROGEN 31 mg/dL 7-21 (BEAKER) (test gxtp=427) CREATININE (BEAKER) (test 1.25 mg/dL 0.57-1.25 eivd=922) GLUCOSE RANDOM (BEAKER) 105 mg/dL 70-105 (test itju=617) CALCIUM (BEAKER) (test 9.0 mg/dL 8.4-10.2 icqd=810) EGFR (BEAKER) (test 41 mL/min/1.73 sq m ESTIMATED GFR IS NOT izun=7391) ACCURATE CREATININE CLEARANCE IN PREDICTING GLOMERULAR FILTRATION RATE. ESTIMATED GFR IS NOT APPLICABLE FOR DIALYSIS PATIENTS. [id number] 06:03:00 Test Item Value Reference Range Comments MAGNESIUM (BEAKER) (test kugz=206) 2.3 mg/dL 1.6-2.6 CBC (HEMOGRAM ONLY)2018-02-19 05:46:00 Test Item Value Reference Range Comments WHITE BLOOD CELL COUNT (BEAKER) (test apve=849) 8.9 K/ L 3.5-10.5 RED BLOOD CELL COUNT (BEAKER) (test trrj=727) 3.46 M/ L 3.93-5.22 HEMOGLOBIN (BEAKER) (test tijo=392) 11.0 GM/DL 11.2-15.7 HEMATOCRIT (BEAKER) (test mpbe=360) 33.3 % 34.1-44.9 MEAN CORPUSCULAR VOLUME (BEAKER) (test vxuv=956) 96.2 fL 79.4-94.8 MEAN CORPUSCULAR HEMOGLOBIN (BEAKER) (test 31.8 pg 25.6-32.2 hmkr=134) MEAN CORPUSCULAR HEMOGLOBIN CONC (BEAKER) (test 33.0 GM/DL 32.2-35.5 gofg=512) RED CELL DISTRIBUTION WIDTH (BEAKER) (test 13.1 % 11.7-14.4 eggu=741) PLATELET COUNT (BEAKER) (test zoov=853) 218 K/CU MM 150-450 MEAN PLATELET VOLUME (BEAKER) (test eiee=243) 10.9 fL 9.4-12.3 NUCLEATED RED BLOOD CELLS (BEAKER) (test 0 /100 WBC 0-0 poqh=999) POCT-GLUCOSE [id number] 14:00:00 Test Item Value Reference Range Comments POC-GLUCOSE METER (BEAKER) 283 mg/dL 70-110 TESTED AT [facility] [address] [facility] (test cucb=4265) [facility] [address] [id number] 05:56:00 Test Item Value Reference Range Comments MAGNESIUM (BEAKER) (test wpsx=435) 2.8 mg/dL 1.6-2.6 BASIC METABOLIC [id number] 05:56:00 Test Item Value Reference Range Comments SODIUM (BEAKER) (test 132 meq/L 136-145 zift=552) POTASSIUM (BEAKER) (test 4.0 meq/L 3.5-5.1 xsrn=274) CHLORIDE (BEAKER) (test 104 meq/L 98-107 soce=206) CO2 (BEAKER) (test 19 meq/L 22-29 dhyo=895) BLOOD UREA NITROGEN 31 mg/dL 7-21 (BEAKER) (test xlng=843) CREATININE (BEAKER) (test 1.28 mg/dL 0.57-1.25 gvaq=923) GLUCOSE RANDOM (BEAKER) 69 mg/dL 70-105 (test ozrk=457) CALCIUM (BEAKER) (test 8.8 mg/dL 8.4-10.2 ilhe=043) EGFR (BEAKER) (test 40 mL/min/1.73 sq m ESTIMATED GFR IS NOT vynm=8672) ACCURATE CREATININE CLEARANCE IN PREDICTING GLOMERULAR FILTRATION RATE. ESTIMATED GFR IS NOT APPLICABLE FOR DIALYSIS PATIENTS. CBC (HEMOGRAM ONLY)2018-02-18 05:30:00 Test Item Value Reference Range Comments WHITE BLOOD CELL COUNT (BEAKER) (test kass=446) 8.4 K/ L 3.5-10.5 RED BLOOD CELL COUNT (BEAKER) (test wipu=659) 3.53 M/ L 3.93-5.22 HEMOGLOBIN (BEAKER) (test qnxq=784) 11.1 GM/DL 11.2-15.7 HEMATOCRIT (BEAKER) (test mtyh=825) 34.9 % 34.1-44.9 MEAN CORPUSCULAR VOLUME (BEAKER) (test ujkk=678) 98.9 fL 79.4-94.8 MEAN CORPUSCULAR HEMOGLOBIN (BEAKER) (test 31.4 pg 25.6-32.2 ojug=549) MEAN CORPUSCULAR HEMOGLOBIN CONC (BEAKER) (test 31.8 GM/DL 32.2-35.5 clle=636) RED CELL DISTRIBUTION WIDTH (BEAKER) (test 13.2 % 11.7-14.4 gdkc=510) PLATELET COUNT (BEAKER) (test vabx=133) 205 K/CU MM 150-450 MEAN PLATELET VOLUME (BEAKER) (test dufr=736) 10.7 fL 9.4-12.3 NUCLEATED RED BLOOD CELLS (BEAKER) (test 0 /100 WBC 0-0 oukl=319) [id number] 23:41:00 Test Item Value Reference Range Comments ACTIVATED CLOTTING TIME (BEAKER) 92 sec TESTED AT [address] (test srts=967) [place] [address] [id number] 21:56:00 Test Item Value Reference Range Comments ACTIVATED CLOTTING TIME 153 sec TESTED AT [address] (BEAKER) (test uhcp=116) [place] [address] [id number] 19:28:00 Test Item Value Reference Range Comments ACTIVATED CLOTTING TIME 197 sec TESTED AT [address] (BEAKER) (test gyzs=893) [place] [address] [id number] 17:41:00 Test Item Value Reference Range Comments ACTIVATED CLOTTING TIME 246 sec TESTED AT [address] (BEAKER) (test evap=841) [place] [address] [id number] 12:36:00 Test Item Value Reference Range Comments POTASSIUM (BEAKER) (test xtag=142) 4.0 meq/L 3.5-5.1 TROPONIN [id number] 12:03:00 Test Item Value Reference Range Comments TROPONIN I (BEAKER) (test tnqp=579) 3.94 ng/mL 0.00-0.03 Troponin I (TnI) levels must be interpreted [...] failure, acidosis, acute neurological disease, and persistent tachyarrhythmia.[id number] 11:44:00 Test Item Value Reference Range Comments MAGNESIUM (BEAKER) (test jrrz=047) 1.9 mg/dL 1.6-2.6 [id number] 11:37:00 Test Item Value Reference Range Comments PARTIAL THROMBOPLASTIN TIME (BEAKER) (test 98.3 seconds 22.5-36.0 eeej=744) [id number] 04:04:00 Test Item Value Reference Range Comments PARTIAL THROMBOPLASTIN TIME (BEAKER) (test 92.5 seconds 22.5-36.0 xuvo=958) TROPONIN [id number] 02:06:00 Test Item Value Reference Range Comments TROPONIN I (BEAKER) (test wgbt=288) 7.11 ng/mL 0.00-0.03 Troponin I (TnI) levels must be interpreted [...] failure, acidosis, acute neurological disease, and persistent tachyarrhythmia.BASIC METABOLIC [id number] 01:56:00 Test Item Value Reference Range Comments SODIUM (BEAKER) (test 135 meq/L 136-145 yjpk=704) POTASSIUM (BEAKER) (test 3.7 meq/L 3.5-5.1 yitf=311) CHLORIDE (BEAKER) (test 102 meq/L 98-107 vjty=262) CO2 (BEAKER) (test 22 meq/L 22-29 fypk=970) BLOOD UREA NITROGEN 17 mg/dL 7-21 (BEAKER) (test ujok=880) CREATININE (BEAKER) (test 1.49 mg/dL 0.57-1.25 bbmp=714) GLUCOSE RANDOM (BEAKER) 90 mg/dL 70-105 (test ollo=111) CALCIUM (BEAKER) (test 9.2 mg/dL 8.4-10.2 qowe=494) EGFR (BEAKER) (test 34 mL/min/1.73 sq m ESTIMATED GFR IS NOT gfry=0833) ACCURATE CREATININE CLEARANCE IN PREDICTING GLOMERULAR FILTRATION RATE. ESTIMATED GFR IS NOT APPLICABLE FOR DIALYSIS PATIENTS. PT/[id number] 01:53:00 Test Item Value Reference Range Comments PROTIME (BEAKER) (test sxcw=170) 15.2 seconds 11.7-14.7 INR (BEAKER) (test ljit=925) 1.2 <=5.9 PARTIAL THROMBOPLASTIN TIME (BEAKER) (test 146.1 seconds 22.5-36.0 coib=856) RECOMMENDED COUMADIN/WARFARIN INR THERAPY RANGESSTANDARD DOSE: 2.0 - 3.0 Includes: PROPHYLAXIS forvenous thrombosis, systemic embolization; TREATMENT for venous thrombosis and/or pulmonary embolus.HIGH RISK: Target INR is 2.5-3.5 for patients with mechanical heart valves.PROTHROMBIN [id number] 01:50: 00 Test Item Value Reference Range Comments PROTIME (BEAKER) (test dkjj=504) 15.2 seconds 11.7-14.7 INR (BEAKER) (test vzdw=219) 1.2 <=5.9 RECOMMENDED COUMADIN/WARFARIN INR THERAPY RANGESSTANDARD DOSE: 2.0 - 3.0 Includes: PROPHYLAXIS forvenous thrombosis, systemic embolization; TREATMENT for venous thrombosis and/or pulmonary embolus.HIGH RISK: Target INR is 2.5-3.5 for patients with mechanical heart valves.CBC W/PLT COUNT & AUTO [id number] 01:43:00 Test Item Value Reference Range Comments WHITE BLOOD CELL COUNT (BEAKER) (test hpap=809) 7.1 K/ L 3.5-10.5 RED BLOOD CELL COUNT (BEAKER) (test xooo=316) 3.45 M/ L 3.93-5.22 HEMOGLOBIN (BEAKER) (test tknp=264) 10.8 GM/DL 11.2-15.7 HEMATOCRIT (BEAKER) (test ahha=309) 33.2 % 34.1-44.9 MEAN CORPUSCULAR VOLUME (BEAKER) (test hovs=830) 96.2 fL 79.4-94.8 MEAN CORPUSCULAR HEMOGLOBIN (BEAKER) (test 31.3 pg 25.6-32.2 kdok=768) MEAN CORPUSCULAR HEMOGLOBIN CONC (BEAKER) (test 32.5 GM/DL 32.2-35.5 zfmi=866) RED CELL DISTRIBUTION WIDTH (BEAKER) (test 13.3 % 11.7-14.4 whul=088) PLATELET COUNT (BEAKER) (test lwnb=320) 190 K/CU MM 150-450 MEAN PLATELET VOLUME (BEAKER) (test hxei=966) 10.5 fL 9.4-12.3 NUCLEATED RED BLOOD CELLS (BEAKER) (test 0 /100 WBC 0-0 ydrx=970) NEUTROPHILS RELATIVE PERCENT (BEAKER) (test 76 % adij=748) LYMPHOCYTES RELATIVE PERCENT (BEAKER) (test 12 % ikjr=548) MONOCYTES RELATIVE PERCENT (BEAKER) (test 10 % asyx=394) EOSINOPHILS RELATIVE PERCENT (BEAKER) (test 1 % qkpj=875) BASOPHILS RELATIVE PERCENT (BEAKER) (test 0 % gbjz=953) NEUTROPHILS ABSOLUTE COUNT (BEAKER) (test 5.45 K/ L 1.56-6.13 zksz=342) LYMPHOCYTES ABSOLUTE COUNT (BEAKER) (test 0.85 K/ L 1.18-3.74 rdbm=229) MONOCYTES ABSOLUTE COUNT (BEAKER) (test 0.70 K/ L 0.24-0.36 ckin=838) EOSINOPHILS ABSOLUTE COUNT (BEAKER) (test 0.10 K/ L 0.04-0.36 ehhp=962) BASOPHILS ABSOLUTE COUNT (BEAKER) (test 0.02 K/ L 0.01-0.08 nwlr=379) IMMATURE GRANULOCYTES-RELATIVE PERCENT (BEAKER) 0 % 0-1 (test tnrj=9244) [id number] 23:09:00 Test Item Value Reference Range Comments RPR SCREEN (BEAKER) (test lyes=995) Nonreactive Nonreactive TROPONIN [id number] 21:20:00 Test Item Value Reference Range Comments TROPONIN I (BEAKER) (test tqsv=898) 7.60 ng/mL 0.00-0.03 Troponin I (TnI) levels must be interpreted [...] failure, acidosis, acute neurological disease, and persistent tachyarrhythmia.[id number] 18:57:00 Test Item Value Reference Range Comments PARTIAL THROMBOPLASTIN TIME (BEAKER) (test 58.1 seconds 22.5-36.0 amjn=491) TROPONIN [id number] 15:25:00 Test Item Value Reference Range Comments TROPONIN I (BEAKER) (test lutj=177) 6.89 ng/mL 0.00-0.03 Troponin I (TnI) levels must be interpreted [...] failure, acidosis, acute neurological disease, and persistent tachyarrhythmia.B-TYPE NATRIURETIC FACTOR (BNP) 15:20:00 Test Item Value Reference Range Comments B-TYPE NATRIURETIC PEPTIDE (BEAKER) (test 2849 pg/mL 0-100 pxsl=244) Please obtain with next scheduled blood draw- no Need for extra pokeRAD, CHEST , 1 VIEW, NON [id number] 11:13:00Reason for exam:->chest painFINAL REPORT HISTORY : chest pain. Comparison: Chest x-ray of isunavailable at this time for comparison. However, a [...] with some atherosclerotic calcification. Signed: Britt Gamble MDReport Verified Date/ Time: 02/16/2018 11:13:08 Reading Location: [facility] Radiology Reading Room TROPONIN [id number] 09:59:00 Test Item Value Reference Range Comments TROPONIN I (BEAKER) (test itci=359) 6.35 ng/mL 0.00-0.03 Troponin I (TnI) levels must be interpreted [...] failure, acidosis, acute neurological disease, and persistent tachyarrhythmia.[id number] 09:06:00 Test Item Value Reference Range Comments PARTIAL THROMBOPLASTIN TIME (LISANDROAKER) (test 26.7 seconds 22.5-36.0 ktvb=380) Prior to initiating heparinPLATELET [id number] 08:48:00 Test Item Value Reference Range Comments PLATELET COUNT (FELISHA) (test nqut=350) 230 K/CU MM 150-450 CT BRAIN WITHOUT IV CONTRAST - [id number] 06:53:00Reason for exam:-> post-tpaFINAL REPORT EXAM: CT head without contrast, portable. CLINICAL HISTORY: post-tpa COMPARISON: Head CT 12/03/2015. TECHNIQUE: Portable CT images of the head were obtained without intravenous contrast. This exam was performed according to our departmental dose optimization program which includes automated exposure control, adjustment of the mA and/or kV according to patient's size and/or use of iterative reconstructive technique. FINDINGS:The study is very limited by motion artifact. [...] No gross acute intracranial hemorrhage or mass effect.No large demarcated acute territorial infarct however evaluation is limited due to CT modality and motion artifact. Signed: Mahnaz Haneport Verified Date/ Time: 02/16/2018 06:53:18 Reading Location: [address] Transitional Reading Room TROPONIN [id number] 03:14:00 Test Item Value Reference Range Comments TROPONIN I (BEAKER) (test fjzy=940) 3.40 ng/mL 0.00-0.03 Troponin I (TnI) levels must be interpreted [...] failure, acidosis, acute neurological disease, and persistent tachyarrhythmia.BASIC METABOLIC [id number] 02:53:00 Test Item Value Reference Range Comments SODIUM (BEAKER) (test 137 meq/L 136-145 ogjw=603) POTASSIUM (BEAKER) (test 4.4 meq/L 3.5-5.1 owrv=054) CHLORIDE (BEAKER) (test 106 meq/L 98-107 adbc=374) CO2 (BEAKER) (test 22 meq/L 22-29 rfne=921) BLOOD UREA NITROGEN 12 mg/dL 7-21 (BEAKER) (test lktt=822) CREATININE (BEAKER) (test 1.06 mg/dL 0.57-1.25 gntn=025) GLUCOSE RANDOM (BEAKER) 109 mg/dL 70-105 (test guyt=312) CALCIUM (BEAKER) (test 9.8 mg/dL 8.4-10.2 yqty=466) EGFR (BEAKER) (test 50 mL/min/1.73 sq m ESTIMATED GFR IS NOT drlb=4212) ACCURATE CREATININE CLEARANCE IN PREDICTING GLOMERULAR FILTRATION RATE. ESTIMATED GFR IS NOT APPLICABLE FOR DIALYSIS PATIENTS. PT/[id number] 02:48:00 Test Item Value Reference Range Comments PROTIME (BEAKER) (test bjxm=865) 14.5 seconds 11.7-14.7 INR (BEAKER) (test grkm=890) 1.1 <=5.9 PARTIAL THROMBOPLASTIN TIME (BEAKER) (test 25.7 seconds 22.5-36.0 zaxg=432) RECOMMENDED COUMADIN/WARFARIN INR THERAPY RANGESSTANDARD DOSE: 2.0 - 3.0 Includes: PROPHYLAXIS forvenous thrombosis, systemic embolization; TREATMENT for venous thrombosis and/or pulmonary embolus.HIGH RISK: Target INR is 2.5-3.5 for patients with mechanical heart valves.PROTHROMBIN [id number] 02:47: 00 Test Item Value Reference Range Comments PROTIME (BEAKER) (test awna=912) 14.5 seconds 11.7-14.7 INR (BEAKER) (test hkeq=371) 1.1 <=5.9 RECOMMENDED COUMADIN/WARFARIN INR THERAPY RANGESSTANDARD DOSE: 2.0 - 3.0 Includes: PROPHYLAXIS forvenous thrombosis, systemic embolization; TREATMENT for venous thrombosis and/or pulmonary embolus.HIGH RISK: Target INR is 2.5-3.5 for patients with mechanical heart valves.CBC W/PLT COUNT & AUTO [id number] 02:29:00 Test Item Value Reference Range Comments WHITE BLOOD CELL COUNT (BEAKER) (test qedi=045) 8.8 K/ L 3.5-10.5 RED BLOOD CELL COUNT (BEAKER) (test jcdp=062) 3.71 M/ L 3.93-5.22 HEMOGLOBIN (BEAKER) (test zvsv=803) 11.9 GM/DL 11.2-15.7 HEMATOCRIT (BEAKER) (test rtwx=139) 35.8 % 34.1-44.9 MEAN CORPUSCULAR VOLUME (BEAKER) (test sakp=402) 96.5 fL 79.4-94.8 MEAN CORPUSCULAR HEMOGLOBIN (BEAKER) (test 32.1 pg 25.6-32.2 wdpb=593) MEAN CORPUSCULAR HEMOGLOBIN CONC (BEAKER) (test 33.2 GM/DL 32.2-35.5 hlke=188) RED CELL DISTRIBUTION WIDTH (BEAKER) (test 13.2 % 11.7-14.4 gvif=837) PLATELET COUNT (BEAKER) (test gynx=426) 205 K/CU MM 150-450 MEAN PLATELET VOLUME (BEAKER) (test umzm=388) 10.2 fL 9.4-12.3 NUCLEATED RED BLOOD CELLS (BEAKER) (test 0 /100 WBC 0-0 cebo=211) NEUTROPHILS RELATIVE PERCENT (BEAKER) (test 83 % mzjw=104) LYMPHOCYTES RELATIVE PERCENT (BEAKER) (test 8 % wajc=310) MONOCYTES RELATIVE PERCENT (BEAKER) (test 9 % mvmp=777) EOSINOPHILS RELATIVE PERCENT (BEAKER) (test 0 % foue=280) BASOPHILS RELATIVE PERCENT (BEAKER) (test 0 % oxvg=741) NEUTROPHILS ABSOLUTE COUNT (BEAKER) (test 7.27 K/ L 1.56-6.13 cymf=370) LYMPHOCYTES ABSOLUTE COUNT (BEAKER) (test 0.68 K/ L 1.18-3.74 abty=930) MONOCYTES ABSOLUTE COUNT (BEAKER) (test 0.77 K/ L 0.24-0.36 hsna=472) EOSINOPHILS ABSOLUTE COUNT (BEAKER) (test 0.01 K/ L 0.04-0.36 mkvy=817) BASOPHILS ABSOLUTE COUNT (BEAKER) (test 0.02 K/ L 0.01-0.08 hbwn=782) IMMATURE GRANULOCYTES-RELATIVE PERCENT (BEAKER) 1 % 0-1 (test cxhs=3408) TROPONIN [id number] 17:32:00 Test Item Value Reference Range Comments TROPONIN I (BEAKER) (test rmsn=045) 0.13 ng/mL 0.00-0.03 Troponin I (TnI) levels must be interpreted [...] failure, acidosis, acute neurological disease, and persistent tachyarrhythmia.HEMOGLOBIN [id number] 11:13:00 Test Item Value Reference Range Comments HEMOGLOBIN A1C (BEAKER) (test gvnk=094) 5.4 % 4.3-6.1 [id number] 05:41:00 Test Item Value Reference Range Comments THYROID STIMULATING HORMONE (BEAKER) (test 0.94 uIU/mL 0.35-4.94 ahew=829) VITAMIN B12 AND [id number] 05:41:00 Test Item Value Reference Range Comments VITAMIN B12 (BEAKER) (test vsmt=651) 1440 pg/mL 213-816 FOLATE (BEAKER) (test uzpm=891) 7.6 ng/mL >=7.0 [id number] 05:07:00 Test Item Value Reference Range Comments MAGNESIUM (BEAKER) (test 1.7 mg/dL 1.6-2.6 Specimen slightly hemolyzed heph=066) BASIC METABOLIC [id number] 05:07:00 Test Item Value Reference Range Comments SODIUM (BEAKER) (test 133 meq/L 136-145 smfa=071) POTASSIUM (BEAKER) (test 4.2 meq/L 3.5-5.1 Specimen slightly qzdv=893) hemolyzed CHLORIDE (BEAKER) (test 104 meq/L 98-107 vatv=132) CO2 (BEAKER) (test 21 meq/L 22-29 oxpo=362) BLOOD UREA NITROGEN 12 mg/dL 7-21 (BEAKER) (test udyd=769) CREATININE (BEAKER) (test 0.95 mg/dL 0.57-1.25 Specimen slightly qxbr=923) hemolyzed GLUCOSE RANDOM (BEAKER) 98 mg/dL 70-105 (test qwmq=468) CALCIUM (BEAKER) (test 9.3 mg/dL 8.4-10.2 byyh=873) EGFR (BEAKER) (test 57 mL/min/1.73 sq m ESTIMATED GFR IS NOT awpi=5758) ACCURATE CREATININE CLEARANCE IN PREDICTING GLOMERULAR FILTRATION RATE. ESTIMATED GFR IS NOT APPLICABLE FOR DIALYSIS PATIENTS. LIPID [id number] 05:07:00 Test Item Value Reference Range Comments TRIGLYCERIDES (BEAKER) (test 137 mg/dL Specimen slightly hemolyzed lxyz=713) CHOLESTEROL (BEAKER) (test 155 mg/dL Specimen slightly hemolyzed lezm=642) HDL CHOLESTEROL (BEAKER) (test 59 mg/dL jucf=558) LDL CHOLESTEROL CALCULATED 69 mg/dL (BEAKER) (test jhga=514) Triglyceride Reference Range: Low Risk <150 Borderline 150- 199 High Risk 200-499 Very High Risk >=500Cholesterol Reference Range: Low Risk <200 Borderline 200-239 High Risk > 240HDL Cholesterol Reference Range: Low Risk >=60 High Risk <40LDL Cholesterol Reference Range: Optimal <100 Near Optimal 100-129 Borderline 130-159 High 160-189 Very High >=190PT/[id number] 04:54:00 Test Item Value Reference Range Comments PROTIME (BEAKER) (test qjob=689) 14.0 seconds 11.7-14.7 INR (BEAKER) (test dhlp=508) 1.1 <=5.9 PARTIAL THROMBOPLASTIN TIME (BEAKER) (test 27.3 seconds 22.5-36.0 okac=829) RECOMMENDED COUMADIN/WARFARIN INR THERAPY RANGESSTANDARD DOSE: 2.0 - 3.0 Includes: PROPHYLAXIS forvenous thrombosis, systemic embolization; TREATMENT for venous thrombosis and/or pulmonary embolus.HIGH RISK: Target INR is 2.5-3.5 for patients with mechanical heart valves.PROTHROMBIN [id number] 04:53: 00 Test Item Value Reference Range Comments PROTIME (BEAKER) (test nype=938) 14.0 seconds 11.7-14.7 INR (BEAKER) (test eyho=231) 1.1 <=5.9 RECOMMENDED COUMADIN/WARFARIN INR THERAPY RANGESSTANDARD DOSE: 2.0 - 3.0 Includes: PROPHYLAXIS forvenous thrombosis, systemic embolization; TREATMENT for venous thrombosis and/or pulmonary embolus.HIGH RISK: Target INR is 2.5-3.5 for patients with mechanical heart valves.CBC W/PLT COUNT & AUTO [id number] 04:44:00 Test Item Value Reference Range Comments WHITE BLOOD CELL COUNT (BEAKER) (test asoq=830) 5.8 K/ L 3.5-10.5 RED BLOOD CELL COUNT (BEAKER) (test qavl=089) 3.54 M/ L 3.93-5.22 HEMOGLOBIN (BEAKER) (test ufgn=337) 11.0 GM/DL 11.2-15.7 HEMATOCRIT (BEAKER) (test ilrl=475) 33.7 % 34.1-44.9 MEAN CORPUSCULAR VOLUME (BEAKER) (test zqsh=530) 95.2 fL 79.4-94.8 MEAN CORPUSCULAR HEMOGLOBIN (BEAKER) (test 31.1 pg 25.6-32.2 esqo=473) MEAN CORPUSCULAR HEMOGLOBIN CONC (BEAKER) (test 32.6 GM/DL 32.2-35.5 nspj=920) RED CELL DISTRIBUTION WIDTH (BEAKER) (test 13.0 % 11.7-14.4 fcqs=275) PLATELET COUNT (BEAKER) (test mjrx=202) 202 K/CU MM 150-450 MEAN PLATELET VOLUME (BEAKER) (test kocp=806) 10.7 fL 9.4-12.3 NUCLEATED RED BLOOD CELLS (BEAKER) (test 0 /100 WBC 0-0 xsar=705) NEUTROPHILS RELATIVE PERCENT (BEAKER) (test 71 % bylx=549) LYMPHOCYTES RELATIVE PERCENT (BEAKER) (test 14 % pmhl=136) MONOCYTES RELATIVE PERCENT (BEAKER) (test 13 % qjql=638) EOSINOPHILS RELATIVE PERCENT (BEAKER) (test 2 % suzy=717) BASOPHILS RELATIVE PERCENT (BEAKER) (test 0 % vtzg=350) NEUTROPHILS ABSOLUTE COUNT (BEAKER) (test 4.08 K/ L 1.56-6.13 eeqf=909) LYMPHOCYTES ABSOLUTE COUNT (BEAKER) (test 0.80 K/ L 1.18-3.74 uyma=651) MONOCYTES ABSOLUTE COUNT (BEAKER) (test 0.76 K/ L 0.24-0.36 coli=533) EOSINOPHILS ABSOLUTE COUNT (BEAKER) (test 0.10 K/ L 0.04-0.36 oojb=805) BASOPHILS ABSOLUTE COUNT (BEAKER) (test 0.02 K/ L 0.01-0.08 zyir=500) IMMATURE GRANULOCYTES-RELATIVE PERCENT (BEAKER) 0 % 0-1 (test cywd=6730) BASIC METABOLIC [id number] 16:02:00 Test Item Value Reference Range Comments SODIUM (BEAKER) (test 129 meq/L 136-145 awkn=019) POTASSIUM (BEAKER) (test 3.7 meq/L 3.5-5.1 leqn=593) CHLORIDE (BEAKER) (test 97 meq/L 98-107 bgqp=402) CO2 (BEAKER) (test 22 meq/L 22-29 wscm=535) BLOOD UREA NITROGEN 16 mg/dL 7-21 (BEAKER) (test iylr=442) CREATININE (BEAKER) (test 1.12 mg/dL 0.57-1.25 ljln=544) GLUCOSE RANDOM (BEAKER) 116 mg/dL 70-105 (test lipr=412) CALCIUM (BEAKER) (test 10.0 mg/dL 8.4-10.2 ezfg=081) EGFR (BEAKER) (test 47 mL/min/1.73 sq m ESTIMATED GFR IS NOT ancl=8486) ACCURATE CREATININE CLEARANCE IN PREDICTING GLOMERULAR FILTRATION RATE. ESTIMATED GFR IS NOT APPLICABLE FOR DIALYSIS PATIENTS. CBC W/PLT COUNT & AUTO [id number] 15:31:00 Test Item Value Reference Range Comments WHITE BLOOD CELL COUNT (BEAKER) (test bzrh=007) 8.2 K/ L 3.5-10.5 RED BLOOD CELL COUNT (BEAKER) (test igaf=621) 4.14 M/ L 3.93-5.22 HEMOGLOBIN (BEAKER) (test tjct=497) 13.0 GM/DL 11.2-15.7 HEMATOCRIT (BEAKER) (test gojo=795) 39.1 % 34.1-44.9 MEAN CORPUSCULAR VOLUME (BEAKER) (test vott=859) 94.4 fL 79.4-94.8 MEAN CORPUSCULAR HEMOGLOBIN (BEAKER) (test 31.4 pg 25.6-32.2 ezaa=948) MEAN CORPUSCULAR HEMOGLOBIN CONC (BEAKER) (test 33.2 GM/DL 32.2-35.5 yllh=013) RED CELL DISTRIBUTION WIDTH (BEAKER) (test 12.8 % 11.7-14.4 vfhy=364) PLATELET COUNT (BEAKER) (test iqwe=217) 228 K/CU MM 150-450 MEAN PLATELET VOLUME (BEAKER) (test vjyr=966) 10.3 fL 9.4-12.3 NUCLEATED RED BLOOD CELLS (BEAKER) (test 0 /100 WBC 0-0 jdpa=426) NEUTROPHILS RELATIVE PERCENT (BEAKER) (test 80 % olof=333) LYMPHOCYTES RELATIVE PERCENT (BEAKER) (test 10 % pclv=389) MONOCYTES RELATIVE PERCENT (BEAKER) (test 9 % kufy=457) EOSINOPHILS RELATIVE PERCENT (BEAKER) (test 0 % pubg=792) BASOPHILS RELATIVE PERCENT (BEAKER) (test 0 % eyoj=568) NEUTROPHILS ABSOLUTE COUNT (BEAKER) (test 6.59 K/ L 1.56-6.13 bssn=461) LYMPHOCYTES ABSOLUTE COUNT (BEAKER) (test 0.86 K/ L 1.18-3.74 xwwo=962) MONOCYTES ABSOLUTE COUNT (BEAKER) (test 0.70 K/ L 0.24-0.36 fnhz=627) EOSINOPHILS ABSOLUTE COUNT (BEAKER) (test 0.03 K/ L 0.04-0.36 jtoc=684) BASOPHILS ABSOLUTE COUNT (BEAKER) (test 0.02 K/ L 0.01-0.08 psxx=294) IMMATURE GRANULOCYTES-RELATIVE PERCENT (BEAKER) 0 % 0-1 (test udli=4468)
--- NOTE | 2018-03-10 13:43 | RAD REPORT ---
EXAM DESCRIPTION: CT - Head Brain Wo Cont - 03/10/2018 1:29 pm CLINICAL HISTORY: Left upper extremity numbness and tingling COMPARISON: CT study February 14 TECHNIQUE: Axial 5 mm thick images of the head were obtained without IV contrast. All CT scans are performed using dose optimization technique as appropriate and may include automated exposure control or mA/KV adjustment according to patient size. FINDINGS: No intracranial hemorrhage, mass, edema or shift of mid-line structures. No acute infarcti on changes seen. No cortical edema or sulcal effacement. Mild to moderate atrophy changes are present with moderate chronic ischemic change. Ventricles are in proportion to volume loss. Intracranial fin dings are similar to the comparison. Arterial and physiologic calcifications are present. Mastoid air cells and visualized portions of the paranasal sinuses are clear. No acute bony findings. IMPRESSION: No hemorrhage, mass or acute cortical based infarction. Prominent atrophy and chronic ischemic pattern is similar to February 14. Chronic ischemic changes can mask nonhemorrhagic acute infarction. MR brain followup can be obtained if there is ongoing concern for acute ischemia.
[2018-03-10 14:15] LABS: Absolute Lymphocytes (CBC) 1.2 K/uL (0.7-4.9); Absolute Monocytes 0.6 K/uL (0.1-1.3); Absolute Neutrophil 5.9 K/uL (1.8-8.0); Basophils % 0.6 % (0-1.3); Eosinophils % 3.2 % (0-4.4); Hematocrit 34.2 % (36.0-45.0); Lymphocytes % 14.6 % (15.3-44.8); MCH 31.5 pg (27.0-35.0); MCV 94.9 fL (80-100); MPV 9.5 fL (7.6-11.3); Monocytes % 7.9 % (3.3-12.3); RBC Red Blood Cell Count 3.61 M/uL (3.86-4.86)
[2018-03-10 14:26] LABS: Potassium 4.2 mmol/L (3.5-5.1)
[2018-03-10 14:27] LABS: Protime INR 0.96
[2018-03-10 14:36] LABS: Urine Blood TRACE (NEG); Urine Glucose NEGATIVE (NEG); Urine Protein NEGATIVE (NEG)
[2018-03-10] MEDS ORDERED: NA CHLORIDE 0.9% 500 ML ONE (14:53)
--- NOTE | 2018-03-10 15:19 | EDPHYS ---
Physician Documentation [facility] Name: Casey Lyons Age: 82 yrs Sex: Female : 1935 Arrival Date: 03/10/2018 Time: 12:53 Bed 2 Private MD: Gurdeep Koehler V ED Physician Leland Andujar HPI: 03/10 13:32 This 82 yrs old Female presents to ER via EMS with complaints of Numbness Of rn Lips, Numbness Of Hand. 13:32 The patient presents to the emergency department with paresthesias of the left upper rn extremity, left side of the face. Onset: The symptoms/episode began/occurred just prior to arrival. Severity of symptoms: At their worst the symptoms were mild in the emergency department the symptoms have resolved. Current symptoms: Currently, the patient is not experiencing any symptoms. The patient has experienced a previous episode. Reports diagnosed with stroke 3 weeks ago, sent to [facility] after TPA given here, doesn't remember much but reports had similar left hand and facial numbness, today felt fine, was going to lunch then felt tingling of LUE and left face, lasted for less than 30 min, now resolved, reports currently at baseline. Is taking aspirin and newly prescribed plavix. . Historical: - Allergies: 12:58 No Known Allergies; sg - PMHx: 12:58 Cellulitis of Leg; Hypertension; sg - PSHx: 12:58 cardiac stents; CABG; Hysterectomy; sg - Immunization history:: Adult Immunizations up to date. - Social history:: Smoking status: Patient/guardian denies using tobacco. - Ebola Screening: : Patient negative for fever greater than or equal to 101.5 degrees Fahrenheit, and additional compatible Ebola Virus Disease symptoms Patient denies exposure to infectious person Patient denies travel to an Ebola-affected area in the 21 days before illness onset No symptoms or risks identified at this time. - Family history:: not pertinent. - Hospitalizations: : Patient was recently seen at. ROS: 13:33 Constitutional: Negative for fever, chills, and weight loss, Eyes: Negative for injury, rn pain, redness, and discharge, Neck: Negative for injury, pain, and swelling, Cardiovascular: Negative for chest pain, palpitations, and edema, Respiratory: Negative for shortness of breath, cough, wheezing, and pleuritic chest pain, Abdomen/GI: Negative for abdominal pain, nausea, vomiting, diarrhea, and constipation, MS/Extremity: Negative for injury and deformity, Skin: Negative for injury, rash, and discoloration, Neuro: Negative for headache, weakness, and seizure Exam: 13:33 Constitutional: This is a well developed, well nourished patient who is awake, alert, rn and in no acute distress. Head/Face: Normocephalic, atraumatic. Eyes: Pupils equal round and reactive to light, extra-ocular motions intact. Lids and lashes normal. Conjunctiva and sclera are non-icteric and not injected. Cornea within normal limits. Periorbital areas with no swelling, redness, or edema. Cardiovascular: Regular rate and rhythm with a normal S1 and S2. No gallops, murmurs, or rubs. Normal PMI, no JVD. No pulse deficits. Respiratory: Lungs have equal breath sounds bilaterally, clear to auscultation and percussion. No rales, rhonchi or wheezes noted. No increased work of breathing, no retractions or nasal flaring. Abdomen/GI: Soft, non-tender, with normal bowel sounds. No distension or tympany. No guarding or rebound. No evidence of tenderness throughout. Skin: Warm, dry with normal turgor. Normal color with no rashes, no lesions, and no evidence of cellulitis. MS/ Extremity: Pulses equal, no cyanosis. Neurovascular intact. Full, normal range of motion. Equal circumference. Neuro: Awake and alert, GCS 15, oriented to person, place, time, and situation. Cranial nerves II-XII grossly intact. Motor strength 5/5 in all extremities. Sensory grossly intact. Cerebellar exam normal. Normal gait. Vital Signs: 12:58 BP 156 / 46; Pulse 64; Resp 14; Temp 97.7; Pulse Ox 100% on R/A; Pain 0/10; sg MDM: 12:59 Patient medically screened. rn 15:16 Data reviewed: vital signs, nurses notes, lab test result(s), EKG, radiologic studies, rn CT scan, and as a result, I will discharge patient. Counseling: I had a detailed discussion with the patient and/or guardian regarding: the historical points, exam findings, and any diagnostic results supporting the discharge/admit diagnosis, lab results, radiology results, the need for outpatient follow up, to return to the emergency department if symptoms worsen or persist or if there are any questions or concerns that arise at home. Response to treatment: the patient's condition has returned to base line, the patient is now symptom free, and as a result, I will discharge patient. Special discussion: I discussed with the patient/guardian in detail that at this point there is no indication for admission to the hospital. It is understood, however, that if the symptoms persist or worsen the patient needs to return immediately for re-evaluation. Based on the history and exam findings, there is no indication for further emergent testing or inpatient evaluation. I discussed with the patient/guardian the need to see the cable armorer operator for further evaluation of the symptoms. I discussed with the patient/guardian the need to see the neurologist for further evaluation of the symptoms. I discussed with the patient/guardian the need to see the primary care provider for further evaluation of the symptoms. ED course: Pt still at baseline, just started on dual anti-platelet therapy, had full w/u at [facility], wants to go home, will dc home with pcp f/u as well as cardiology and neurology f/u. . 03/10 13:00 Order name: CBC with Diff; Complete Time: 14:42 rn 03/10 13:00 Order name: Basic Metabolic Panel; Complete Time: 14:42 rn 03/10 13:00 Order name: CT Head Brain wo Cont; Complete Time: 13:47 rn 03/10 13:00 Order name: Protime (+inr); Complete Time: 14:42 rn 03/10 13:00 Order name: Ptt, Activated; Complete Time: 14:42 rn 03/10 14:13 Order name: Urine Dipstick--Ancillary (enter results); Complete Time: 14:42 bd 03/10 13:00 Order name: IV Start; Complete Time: 14:06 rn 03/10 13:01 Order name: EKG; Complete Time: 13:01 rn 03/10 13:01 Order name: EKG - Nurse/Tech; Complete Time: 14:44 rn Administered Medications: 14:50 Drug: NS 0.9% 500 ml Route: IV; Rate: bolus; Site: left antecubital; hb Disposition: 03/10/18 15:18 Discharged to Home. Impression: Paresthesia of skin, Transient cerebral ischemic attack, unspecified. - Condition is Stable. - Discharge Instructions: Paresthesia, Stroke Prevention, Transient Ischemic Attack. - Medication Reconciliation Form, Thank You Letter, Antibiotic Education, Prescription Opioid Use form. - Follow up: Gurdeep Koehler MD; When: 2 - 3 days; Reason: Recheck today's complaints, Re-evaluation by your physician. - Problem is new. - Symptoms have improved. Signatures: Dispatcher [employer] EDMS Solo Dominguez RN RN Leland Levy MD MD rn Smirch, Shelby, RN RN ss Kira Lewis RN RN Corrections: (The following items were deleted from the chart) 13:34 13:32 Reports diagnosed with stroke . rn rn 16:04 15:18 03/10/2018 15:18 Discharged to Home. Impression: Paresthesia of skin; Transient ss cerebral ischemic attack, unspecified. Condition is Stable. Forms are Medication Reconciliation Form, Thank You Letter, Antibiotic Education, Prescription Opioid Use. Follow up: Gurdeep Koehler; When: 2 - 3 days; Reason: Recheck today's complaints, Re-evaluation by your physician. Problem is new. Symptoms have improved. rn
--- NOTE | 2018-03-10 15:19 | ER ---
Nurse's Notes [facility] Name: Casey Lyons Age: 82 yrs Sex: Female : 1935 Arrival Date: 03/10/2018 Time: 12:53 Bed 2 Private MD: Gurdeep Koehler V Diagnosis: Paresthesia of skin;Transient cerebral ischemic attack, unspecified Presentation: 03/10 12:54 Presenting complaint: EMS states: Numbness of left hand and tingling in the lips at sg noon today, pt reports the sypmtoms resolved when EMS arrived, lasting approx 15 mins. Denies pain, numbness or tingling at this time. Transition of care: patient was not received from another setting of care. Onset of symptoms was March 10, 2018. Risk Assessment: Do you want to hurt yourself or someone else? Patient reports no desire to harm self or others. Initial Sepsis Screen: Does the patient meet any 2 criteria? No. Patient's initial sepsis screen is negative. Does the patient have a suspected source of infection? No. Patient's initial sepsis screen is negative. Care prior to arrival: IV initiated. 20 GA, in the right antecubital area, Glucose check: 111. 12:54 Method Of Arrival: EMS: [facility] sg 12:54 Acuity: CLINT 3 sg Historical: - Allergies: 12:58 No Known Allergies; sg - PMHx: 12:58 Cellulitis of Leg; Hypertension; sg - PSHx: 12:58 cardiac stents; CABG; Hysterectomy; sg - Immunization history:: Adult Immunizations up to date. - Social history:: Smoking status: Patient/guardian denies using tobacco. - Ebola Screening: : Patient negative for fever greater than or equal to 101.5 degrees Fahrenheit, and additional compatible Ebola Virus Disease symptoms Patient denies exposure to infectious person Patient denies travel to an Ebola-affected area in the 21 days before illness onset No symptoms or risks identified at this time. - Family history:: not pertinent. - Hospitalizations: : Patient was recently seen at. Screenin:45 Abuse screen: Denies threats or abuse. Denies injuries from another. Nutritional hb screening: No deficits noted. Tuberculosis screening: No symptoms or risk factors identified. Fall Risk Total Yoo Fall Scale indicates Low Risk Score (25-44 pts). Fall prevention measures have been instituted. Side Rails Up X 2 Frequent Obs/Assesments occuring Family Present and informed to notify staff if they need to leave bedside As available Patient and Family Educated on Fall Prevention Program and strategies. Assessment: 14:00 Reassessment: Patient appears in no apparent distress at this time. Patient and/or hb family updated on plan of care and expected duration. Pain level reassessed. Patient is alert, oriented x 3, equal unlabored respirations, skin warm/dry/pink. Patient denies pain at this time. Patient states feeling better. Patient states symptoms have improved. 15:00 Reassessment: Patient appears in no apparent distress at this time. Patient and/or hb family updated on plan of care and expected duration. Pain level reassessed. Patient is alert, oriented x 3, equal unlabored respirations, skin warm/dry/pink. Patient states symptoms have improved. 15:54 Reassessment: Patient appears in no apparent distress at this time. Patient and/or hb family updated on plan of care and expected duration. Pain level reassessed. Patient is alert, oriented x 3, equal unlabored respirations, skin warm/dry/pink. Vital Signs: 12:58 BP 156 / 46; Pulse 64; Resp 14; Temp 97.7; Pulse Ox 100% on R/A; Pain 0/10; sg ED Course: 12:53 Patient arrived in ED. sg 12:54 Gurdeep Koehler MD is Private Physician. sg 12:56 Triage completed. sg 12:56 Arm band placed on. sg 12:59 Solo Dominguez, RN is Primary Nurse. sg 12:59 Leland Andujar MD is Attending Physician. rn 13:15 Patient has correct armband on for positive identification. Placed in gown. Bed in low hb position. Call light in reach. Side rails up X 1. 13:23 EKG done, by crown and bridge dental lab technician. reviewed by Leland Andujar MD. sm3 13:29 CT Head Brain wo Cont In Process Unspecified. EDMS 14:00 Inserted saline lock: 22 gauge in left antecubital area, using aseptic technique. Blood hb collected. 15:17 Gurdeep Koehler MD is Referral Physician. rn Administered Medications: 14:50 Drug: NS 0.9% 500 ml Route: IV; Rate: bolus; Site: left antecubital; hb Outcome: 15:18 Discharge ordered by MD. [place] 16:04 Patient left the ED. ss Signatures: Dispatcher [employer] EDMS Solo Dominguez RN RN Leland Andujar MD MD rn Smirch, Shelby, RN RN ss Baxter, Heather, RN RN hb Montes, Shakira 3 Corrections: (The following items were deleted from the chart) 16:02 16:00 Reassessment: Sudden onset SOB, severe anxiety, clawing at throat. SpO2 100% on hb 2L NC. AMARA Shrestha and Dr. Andujar notified at bedside. Pt placed on NRB, epi .5mg IM administered as ordered. hb
--- NOTE | 2018-03-10 15:35 | EKG ---
Test Date: 2018-03-10 Test Time: 13:17:35 Consulting Group Analyst: RUFINA MEASUREMENT RESULTS: Intervals: Rate: 50 SC: 158 QRSD: 94 QT: 470 QTc: 428 [place]: P: 47 SC: 158 QRS: 57 T: 233 INTERPRETIVE STATEMENTS: Sinus bradycardia with marked sinus arrhythmia T wave abnormality, consider inferolateral ischemia Abnormal ECG Compared to ECG 02/13/2018 13:57:55 Sinus rhythm no longer present T-wave abnormality still present Possible ischemia still present Electronically Signed On 03-10-18 15:34:30 CDT by Luis Basilio
[2018-03-10 16:09] VITALS: BP 156/46; TEMP 97.7; O2SAT 100
== END 2018-03-10 16:04 | disposition home or self-care (01) ==
LOC: ER 12:53
DX: G45.9 Transient cerebral ischemic attack, unspecified (principal); I10 Essential (primary) hypertension; Z95.1 Presence of aortocoronary bypass graft; Z95.818 Presence of other cardiac implants and grafts
CPT/HCPCS: 36415; 70450; 80048; 81003; 85025; 85610; 85730; 93005; 99284

== ENCOUNTER 2018-12-23 21:23 | Emergency (ER) | payer OTHER, MEDICARE ==
--- OUTSIDE RECORDS SUMMARY | 2018-12-23 21:27 | XMS REPORT | Clinical Summary ---
:1935 Author Organization [facility] Address [address] [place] [address] Care Team Providers Name Role Phone Zakia Gurdeep Chance Primary Care Provider Baldev Rios Unavailable Allergies No Known Allergies Medications Medication Sig Dispensed Refills Start End Date Status Date aspirin 81 MG EC Take 81 mg by 0 Active tablet mouth daily. levothyroxine Take 75 mcg by 0 Active (SYNTHROID, mouth Every LEVOTHROID) 75 MCG morning on an tablet empty stomach. multivitamin per Take 1 tablet by 0 Active tablet mouth daily. desloratadine Take 5 mg by mouth 0 Active (CLARINEX) 5 mg daily. tablet polyethylene glycol Take 17 g by mouth 0 Active (GLYCOLAX) 17 gram daily. packet ondansetron Take 4 mg by mouth 0 Active (ZOFRAN-ODT) 4 MG every 8 (eight) disintegrating hours as needed tablet for Nausea. torsemide (DEMADEX) Take 20 mg by 0 Active 20 MG tablet mouth as needed. cholecalciferol, Take 2,000 Units 0 Active vitamin D3, 2,000 by mouth daily. unit Tab calcium carbonate Take 600 mg by 0 Active (OS-VALERIE) 600 mg mouth daily. calcium (1,500 mg) Tab cyanocobalamin Take 1,000 mcg by 0 Active (VITAMIN B-12) 1000 mouth daily. MCG [...] clopidogrel Take 1 tablet (75 30 tablet 02/25/20 Active (PLAVIX) 75 mg mg total) by mouth 8 19 tablet daily. losartan (COZAAR) Take 1 tablet (50 60 tablet 02/24/20 Active 50 MG tablet mg total) by mouth 8 19 2 (two) times daily. traMADol (ULTRAM) Take 1 tablet (50 30 tablet Active 50 mg tablet mg total) by mouth 8 as needed for Pain. pravastatin Take 80 mg by 0 02/24/20 Discontinued (PRAVACHOL) 80 MG mouth daily. 18 tablet traMADol (ULTRAM) Take 50 mg by 0 02/24/20 Discontinued 50 mg tablet mouth as needed 18 for Pain. DEXTROSE 50 % IN Inject 25 mLs 02/24/20 Discontinued WATER (DEXTROSE (12.5 g total) 6 18 50%, D50W,) Syrg intravenously as injection needed (blood sugar less than 70 and patient unable to take PO juice or soda). minocycline Take 100 mg by 0 02/24/20 Discontinued (MINOCIN,DYNACIN) mouth 2 (two) 18 100 MG capsule times daily Last dose 01/03/2016 . HYDROcodone-acetami Take 1 tablet by 0 02/24/20 Discontinued nophen (NORCO mouth every 6 18 10-325) 10-325 mg (six) hours as per tablet needed for Pain. bisoprolol (ZEBETA) Take 10 mg by 0 02/24/20 Discontinued 10 MG tablet mouth daily. 18 cloNIDine HCl Take 0.1 mg by 0 02/24/20 Discontinued (CATAPRES) 0.1 MG mouth 2 (two) 18 tablet times daily. cilostazol (PLETAL) Take 100 mg by 0 02/24/20 Discontinued 100 MG tablet mouth. 18 vitamin E 400 UNIT Take 400 Units by 0 02/24/20 Discontinued capsule mouth daily. 18 Active Problems Problem Noted Date Hyperlipemia 02/18/2018 Received tissue plasminogen activator (t-PA) less than 24 hours prior to 02/15 arrival Acute ischemic stroke 02/14/2018 Ulcer of great toe, right, with unspecified severity 12/06/2015 S/P femoral-popliteal bypass surgery 12/04/2015 Gout 12/04/2015 Acute post-operative pain 12/04/2015 Essential hypertension with goal blood pressure less than 140/90 12/04/2015 NSTEMI (non-ST elevated myocardial infarction) 12/02/2015 Hypertension 12/02/2015 BRIONNA (acute kidney injury) 12/02/2015 Toe gangrene 12/02/2015 Insomnia 12/02/2015 Neuropathy 12/02/2015 Physical deconditioning 12/02/2015 Cognitive impairment 12/02/2015 Protein calorie malnutrition 12/02/2015 Obesity 12/01/2015 PVD (peripheral vascular disease) 11/29/2015 Essential hypertension 11/29/2015 Hypothyroid 11/29/2015 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 Chest pain 11/29/2015 Hypertensive emergency 11/29/2015 Encounters Date Type Specialty Care Team Description 02/17/2018 Surgery Malachi Crespo R & L CATH / CORONARY SMD ANGIOS / PCI 02/15/2018 Orders Only General Internal Medicine 02/14/2018 - Hospital Encounter Cardiology Barrett Barreto Acute ischemic stroke (HCC); 02/23/2018 Jd, Received tissue plasminogen activator (t-PA) less than 24 hours prior to arrival; NSTEMI (non-ST elevated myocardial infarction) ([facility]); Josselyn, Paroxysmal atrial fibrillation (HCC); MD Fabien Delirium; Cognitive impairment after 12/22/2017 Social History Tobacco Use Types Packs/Day Years Used Date Former Smoker 1 40 Quit: 11/28/2000 Smokeless Tobacco: Never Used Alcohol Use Drinks/Week oz/Week Comments Yes 7 Glasses of wine 4.2 NONE LAST 2 WEEKS Sex Assigned at Date Recorded Not on file Job Start Date Occupation Industry Not on file Not on file Not on file Travel History Travel Start Travel End No recent travel history available. Last Filed Vital Signs Vital Sign Reading Time Taken Blood Pressure 147/63 02/23/2018 12:00 PM CDT Pulse 55 02/23/2018 12:50 PM CDT Temperature 35.9 C (96.6 F) 02/23/2018 12:00 PM CDT Respiratory Rate 18 02/23/2018 12:50 PM CDT Oxygen Saturation 98% 02/23/2018 12:50 PM CDT Inhaled Oxygen Concentration 21% 02/22/2018 11:00 AM CDT Weight 73.3 kg (161 lb 8 oz) 02/22/2018 5:00 AM CDT Height 167.6 cm (5' 6") 02/14/2018 2:00 PM CDT Body Mass Index 26.07 02/22/2018 5:00 AM CDT Plan of Treatment Not on file Procedures Procedure Name Priority Date/Time Associated Comments Diagnosis VASCULAR DIAGRAM -SCAN 05/01/2018 2:01 PM NURSE EXAMINER PERIPHERAL VASCULAR 04/24/2018 11:01 REPORT - SCAN AM CDT CARDIAC CATH REPORT - 02/26/2018 10:30 SCAN AM CDT VASCULAR DIAGRAM -SCAN 02/26/2018 10:30 AM CDT RHYTHM STRIP - SCAN 02/26/2018 10:30 AM CDT CBC W/PLT COUNT & AUTO Routine 02/22/2018 5:58 Results for this DIFFERENTIAL AM CDT procedure are in the results section. BASIC METABOLIC PANEL Routine 02/22/2018 5:58 Results for this (7) AM CDT procedure are in the results section. CBC W/PLT COUNT & AUTO Routine 02/22/2018 5:58 Results for this DIFFERENTIAL AM CDT procedure are in the results section. CBC W/PLT COUNT & AUTO Routine 02/21/2018 4:41 Results for this DIFFERENTIAL AM CDT procedure are in the results section. BASIC METABOLIC PANEL Routine 02/21/2018 4:41 Results for this (7) AM CDT procedure are in the results section. CBC W/PLT COUNT & AUTO Routine 02/21/2018 4:41 Results for this DIFFERENTIAL AM CDT procedure are in the results section. ECHOCARDIOGRAM REPORT - 02/20/2018 10:20 SCAN AM CDT CBC W/PLT COUNT & AUTO Routine 02/20/2018 7:17 Results for this DIFFERENTIAL AM CDT procedure are in the results section. BASIC METABOLIC PANEL Routine 02/20/2018 7:17 Results for this (7) AM CDT procedure are in the results section. CBC W/PLT COUNT & AUTO Routine 02/20/2018 7:17 Results for this DIFFERENTIAL AM CDT procedure are in the results section. MAGNESIUM Routine 02/20/2018 7:17 Results for this AM CDT procedure are in the results section. LIMITED 2D Routine 02/19/2018 4:57 Results for this ECHOCARDIOGRAM PM CDT procedure are in the results section. CONT WAVE PULSED Routine 02/19/2018 3:55 DOPPLER PM CDT BASIC METABOLIC PANEL STAT 02/19/2018 2:04 Results for this (7) PM CDT procedure are in the results section. CBC (HEMOGRAM ONLY) Routine 02/19/2018 5:17 Results for this AM CDT procedure are in the results section. MAGNESIUM Routine 02/19/2018 5:17 Results for this AM CDT procedure are in the results section. POCT-GLUCOSE METER Routine 02/18/2018 1:58 Results for this PM CDT procedure are in the results section. CBC (HEMOGRAM ONLY) Routine 02/18/2018 5:09 Results for this AM CDT procedure are in the results section. MAGNESIUM Routine 02/18/2018 5:09 Results for this AM CDT procedure are in the results section. BASIC METABOLIC PANEL Routine 02/18/2018 5:09 Results for this (7) AM CDT procedure are in the results section. POCT-ACT Routine 02/17/2018 11:36 Results for this PM CDT procedure are in the results section. POCT-ACT Routine 02/17/2018 9:50 Results for this PM CDT procedure are in the results section. POCT-ACT Routine 02/17/2018 7:23 Results for this PM CDT procedure are in the results section. POCT-ACT Routine 02/17/2018 5:34 Results for this PM CDT procedure are in the results section. R & L CATH / CORONARY 02/17/2018 3:30 Non-STEMI (non-ST ANGIOS / PCI PM CDT elevated myocardial infarction) (HCC) POTASSIUM Routine 02/17/2018 10:59 Results for this AM CDT procedure are in the results section. APTT Routine 02/17/2018 10:59 Results for this AM CDT procedure are in the results section. MAGNESIUM Routine 02/17/2018 10:59 Results for this AM CDT procedure are in the results section. TROPONIN I Routine 02/17/2018 10:59 Results for this AM CDT procedure are in the results section. APTT Routine 02/17/2018 3:20 Results for this AM CDT procedure are in the results section. CBC W/PLT COUNT & AUTO Routine 02/17/2018 1:33 Results for this DIFFERENTIAL AM CDT procedure are in the results section. PROTHROMBIN TIME/INR Routine 02/17/2018 1:33 Results for this AM CDT procedure are in the results section. PT/APTT Routine 02/17/2018 1:33 Results for this AM CDT procedure are in the results section. CBC W/PLT COUNT & AUTO Routine 02/17/2018 1:33 Results for this DIFFERENTIAL AM CDT procedure are in the results section. BASIC METABOLIC PANEL Routine 02/17/2018 1:33 Results for this (7) AM CDT procedure are in the results section. TROPONIN I Routine 02/17/2018 1:33 Results for this AM CDT procedure are in the results section. TROPONIN I Routine 02/16/2018 8:28 Results for this PM CDT procedure are in the results section. APTT Routine 02/16/2018 5:35 Results for this PM CDT procedure are in the results section. ECHOCARDIOGRAM REPORT - 02/16/2018 4:00 SCAN PM CDT B-TYPE NATRIURETIC Routine 02/16/2018 2:43 Results for this FACTOR (BNP) PM CDT procedure are in the results section. TROPONIN I Routine 02/16/2018 2:43 Results for this PM CDT procedure are in the results section. LIMITED 2D STAT 02/16/2018 1:23 Results for this ECHOCARDIOGRAM PM CDT procedure are in the results section. CAROTID DOPPLER Routine 02/16/2018 1:15 Results for this BILATERAL PM CDT procedure are in the results section. CONT WAVE PULSED Routine 02/16/2018 11:33 DOPPLER AM CDT XR CHEST 1 VIEW PAMELLA 02/16/2018 10:35 Results for this PORTABLE/BEDSIDE AM CDT procedure are in the results section. TROPONIN I Routine 02/16/2018 8:30 Results for this AM CDT procedure are in the results section. APTT Routine 02/16/2018 8:30 Results for this AM CDT procedure are in the results section. PLATELET COUNT Routine 02/16/2018 8:30 Results for this AM CDT procedure are in the results section. CT BRAIN WITHOUT IV PAMELLA 02/16/2018 5:45 Results for this CONTRAST PORTABLE AM CDT procedure are in the results section. ECG 12-LEAD Routine 02/16/2018 4:16 Results for this AM CDT procedure are in the results section. CBC W/PLT COUNT & AUTO Routine 02/16/2018 2:18 Results for this DIFFERENTIAL AM CDT procedure are in the results section. PROTHROMBIN TIME/INR Routine 02/16/2018 2:18 Results for this AM CDT procedure are in the results section. PT/APTT Routine 02/16/2018 2:18 Results for this AM CDT procedure are in the results section. CBC W/PLT COUNT & AUTO Routine 02/16/2018 2:18 Results for this DIFFERENTIAL AM CDT procedure are in the results section. BASIC METABOLIC PANEL Routine 02/16/2018 2:18 Results for this (7) AM CDT procedure are in the results section. TROPONIN I Routine 02/16/2018 2:18 Results for this AM CDT procedure are in the results section. ECG 12-LEAD STAT 02/16/2018 12:20 Results for this AM CDT procedure are in the results section. ECG 12-LEAD Routine 02/16/2018 12:20 AM CDT Procedure Note - Interface, External Ris In - 02/16/2018 12:26 AM CDT Ventricular Rate 115 BPM Atrial Rate 105 BPM QRS Duration 86 ms Q-T Interval 368 ms QTC Calculation(Bazett) 509 ms R [place] 54 degrees T [place] 181 degrees Atrial fibrillation with rapid ventricular response T wave abnormality, consider inferolateral ischemia or digitalis effect Abnormal ECG When compared with ECG of 15-FEB-2018 16:40, Atrial fibrillation has replaced Sinus rhythm Inverted T waves have replaced nonspecific T wave abnormality in Inferior leads T wave inversion now evident in Anterior leads ECHOCARDIOGRAM REPORT - SCAN 02/15/2018 8:00 PM CDT TROPONIN I STAT 02/15/2018 4:59 PM CDT ECG 12-LEAD Routine 02/15/2018 4:40 PM CDT Procedure Note - Interface, External Ris In - 02/15/2018 4:50 PM CDT Ventricular Rate 106 BPM Atrial Rate 106 BPM P-R Interval 158 ms QRS Duration 92 ms Q-T Interval 350 ms QTC Calculation(Bazett) 464 ms P [place] 52 degrees R [place] 27 degrees T [place] [address] & T wave abnormality, consider lateral ischemia Abnormal ECG When compared with ECG of 06-DEC-2015 02:46, Nonspecific T wave abnormality, improved in Inferior leads T wave inversion now evident in Lateral leads ECG 12-LEAD STAT 02/15/2018 4:40 PM CDT 2D ECHO W/ DOPPLER Routine 02/15/2018 11:45 AM CDT Results for this (CW/PW/COLOR) procedure are in the results section. CBC W/PLT COUNT & AUTO Routine 02/15/2018 4:20 AM CDT Results for this DIFFERENTIAL procedure are in the results section. HEMOGLOBIN A1C Routine 02/15/2018 4:20 AM CDT LIPID PANEL Routine 02/15/2018 4:20 AM CDT RPR Routine 02/15/2018 4:20 AM CDT TSH Routine 02/15/2018 4:20 AM CDT PROTHROMBIN TIME/INR Routine 02/15/2018 4:20 AM CDT PT/APTT Routine 02/15/2018 4:20 AM CDT CBC W/PLT COUNT & AUTO Routine 02/15/2018 4:20 AM CDT Results for this DIFFERENTIAL procedure are in the results section. BASIC METABOLIC PANEL (7) Routine 02/15/2018 4:20 AM CDT MAGNESIUM Routine 02/15/2018 4:20 AM CDT VITAMIN B12 AND FOLATE Routine 02/15/2018 4:20 AM CDT CBC W/PLT COUNT & AUTO Routine 02/14/2018 3:25 PM CDT Results for this DIFFERENTIAL procedure are in the results section. CBC W/PLT COUNT & AUTO Routine 02/14/2018 3:25 PM CDT Results for this DIFFERENTIAL procedure are in the results section. BASIC METABOLIC PANEL (7) Routine 02/14/2018 3:25 PM CDT after 12/22/2017 Results VASCULAR DIAGRAM -SCAN (05/01/2018 2:01 PM NURSE EXAMINER)Only the most recent of2 resultswithin the time period is included. Narrative Performed At PERIPHERAL VASCULAR REPORT - SCAN (04/24/2018 11:01 AM CDT) Narrative Performed At CARDIAC CATH REPORT - SCAN (02/26/2018 10:30 AM CDT) Narrative Performed At RHYTHM STRIP - SCAN (02/26/2018 10:30 AM CDT) Narrative Performed At CBC with platelet count + automated diff (02/22/2018 5:58 AM CDT)Only the most recent of7 resultswithin the time period is included. WBC 10.1 3.5 - 10.5 K/L [facility] RBC 3.36 (L) 3.93 - 5.22 M/L [facility] Hemoglobin 10.6 (L) 11.2 - 15.7 GM/DL [facility] Hematocrit 33.4 (L) 34.1 - 44.9 % [facility] MCV 99.4 (H) 79.4 - 94.8 fL [facility] MCH 31.5 25.6 - 32.2 pg [facility] MCHC 31.7 (L) 32.2 - 35.5 GM/DL [facility] RDW 13.2 11.7 - 14.4 % [facility] Platelets 206 150 - 450 K/CU MM [facility] MPV 11.1 9.4 - 12.3 fL [facility] nRBC 0 0 - 0 /100 WBC [facility] % Neutros 78 % [facility] % Lymphs 12 % [facility] % Monos 7 % [facility] % Eos 2 % [facility] % Baso 0 % [facility] # Neutros 7.86 (H) 1.56 - 6.13 K/L [facility] # Lymphs 1.21 1.18 - 3.74 K/L [facility] # Monos 0.73 (H) 0.24 - 0.36 K/L [facility] # Eos 0.19 0.04 - 0.36 K/L [facility] # Baso 0.04 0.01 - 0.08 K/L [facility] Immature Granulocytes-Relative 0 0 - 1 % [facility] Specimen Blood Performing Organization Address City/[facility]/Zipcode Phone Number [facility] [address] [place] [phone] [place] Basic Metabolic Panel (02/22/2018 5:58 AM CDT)Only the most recent of9 resultswithin the time period is included. Sodium 134 (L) 136 - 145 meq/L [facility] Potassium 4.5Comment: Specimen slightly 3.5 - 5.1 meq/L [facility] hemolyzed [facility] Chloride 108 (H) 98 - 107 meq/L [facility] CO2 18 (L) 22 - 29 meq/L [facility] BUN 15 7 - 21 mg/dL [facility] Creatinine 1.04Comment: Specimen 0.57 - 1.25 mg/dL [facility] slightly hemolyzed [facility] Glucose 117 (H) 70 - 105 mg/dL [facility] Calcium 8.8 8.4 - 10.2 mg/dL [facility] EGFR 51Comment: ESTIMATED GFR IS mL/min/1.73 sq m [facility] NOT ACCURATE CREATININE [facility] CLEARANCE IN PREDICTING GLOMERULAR FILTRATION RATE. ESTIMATED GFR IS NOT APPLICABLE FOR DIALYSIS PATIENTS. Specimen Blood Performing Organization Address City/[facility]/Zipcode Phone Number [place] [phone] [place] [address] [place] ECHOCARDIOGRAM REPORT - SCAN (02/20/2018 10:20 AM CDT) Narrative Performed At Magnesium (02/20/2018 7:17 AM CDT)Only the most recent of5 resultswithin the time period is included. Magnesium 2.2 1.6 - 2.6 mg/dL [facility] Specimen Blood Performing Organization Address City/State/Zipcode Phone Number [facility] [address] [place] [address] CENTER Limited 2D Echocardiogram (02/19/2018 4:57 PM CDT) Ejection Fraction [facility] Specimen Narrative Performed At Transthoracic Echocardiography Report (TTE) [facility] Demographics Patient Name CASEY LYONS Date of Study 02/19/2018 JOSÉ MANUEL [id number] GenderFemale Visit Number [id number] Room Number 2427 Number Date of Birth1935Referring Physician Cherie Marin Age82 year(s)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 Previous Study Compared to the previous study 02/16/2018, LV systolic function has improved some. Findings discussed with Dr. Crespo. Signature Findings Left Ventricle The left ventricle is chamber size (by vol index) is mildly enlarged (female - LVED 62-70ml/m2). Mo derate concentric LV hypertrophy. The following se gment(s) appear severely hypokinetic: apical se gments . The other segments are mildly hy pokinetic. LVEF by Christy's method of disk as sessment is redtwi-bm-jjzebllndh reduced (40%) . Left AtriumLA size is normal (16-34 ml/m2) . Right VentricleThe right ventricular chamber size and systolic fu nction are within normal limits. Right Atrium RA size is normal. Aortic Valve Mild AoV cusp thickening. Mitral Valve Mild mitral annular calcification. Tricuspid ValveTV structure is normal. Un able to estimate peak systolic PA pressure; in adequate TR velocity signal. Pulmonic Valve PV is not well visualized. AortaAortic root size (SInus of Valsalva diameter) is no rmal . PericardiumNo pericardial effusion is visualized. An echo lucent space is noted consistent with pr ominent pericardial fat pad. IVC/SVC/PA/PV/PleuralThe estimated RA pressure by IVC dynamics in determinate . 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 Previous Study Compared to [...] by Christy's method of disk assessment is fpaiyy-dz-kvxbylmicv reduced (40%) . Left Atrium LA size [...] Diameter: 1.71 cm LVOT Area: 2.3 cm^2 Performing Organization Address City/State/Zipcode Phone Number [facility] CBC (hemogram only) (02/19/2018 5:17 AM CDT)Only the most recent of2 resultswithin the time period is included. WBC 8.9 3.5 - 10.5 K/L [facility] RBC 3.46 (L) 3.93 - 5.22 M/L [facility] Hemoglobin 11.0 (L) 11.2 - 15.7 GM/DL [facility] Hematocrit 33.3 (L) 34.1 - 44.9 % [facility] MCV 96.2 (H) 79.4 - 94.8 fL [facility] MCH 31.8 25.6 - 32.2 pg [facility] MCHC 33.0 32.2 - 35.5 GM/DL [facility] RDW 13.1 11.7 - 14.4 % [facility] Platelets 218 150 - 450 K/CU MM [facility] MPV 10.9 9.4 - 12.3 fL [facility] nRBC 0 0 - 0 /100 WBC [facility] Specimen Blood Performing Organization Address City/[facility]/Zipcode Phone Number [address] [address] [phone] [place] POC-Glucose meter (02/18/2018 1:58 PM CDT) POC-Glucose Meter 283 (H)Comment: TESTED AT 70 - 110 mg/dL [place] [id number] Specimen Blood Performing Organization Address City/[facility] Phone Number [address] [address] [place] POC ACTIVATED CLOTTING TIME (02/17/2018 11:36 PM CDT)Only the most recent of4 resultswithin the time period is included. Activated Clotting Time 92Comment: TESTED AT sec [place] [id number] Specimen Blood Performing Organization Address City/[facility]/Zipcode Phone Number [address] [address] [place] Troponin I (02/17/2018 10:59 AM CDT)Only the most recent of7 resultswithin the time period is included. Troponin I 3.94 (HH) 0.00 - 0.03 ng/mL [facility] Specimen Blood Narrative Performed At [facility] Troponin I (TnI) levels must be interpreted [...] acidosis, acute neurological disease, and persistent tachyarrhythmia. Performing Organization Address City/[facility] Phone Number [address] [address] [phone] CENTER aPTT (02/17/2018 10:59 AM CDT)Only the most recent of4 resultswithin the time period is included. PTT 98.3 (H) 22.5 - 36.0 seconds [facility] Specimen Blood Performing Organization Address [facility] Phone Number [address] [address] CENTER Potassium (02/17/2018 10:59 AM CDT) Potassium 4.0 3.5 - 5.1 meq/L [facility] Specimen Blood Performing Organization Address [facility] Phone Number [address] [address] CENTER PT/aPTT (02/17/2018 1:33 AM CDT)Only the most recent of3 resultswithin the time period is included. Protime 15.2 (H) 11.7 - 14.7 seconds [facility] INR 1.2 <=5.9 [facility] PTT 146.1 (H) 22.5 - 36.0 seconds [facility] Specimen Blood Narrative Performed At [facility] RECOMMENDED COUMADIN/WARFARIN INR THERAPY RANGES STANDARD DOSE: 2.0 - 3.0 Includes: PROPHYLAXIS for venous thrombosis, systemic embolization; TREATMENT for venous thrombosis and/or pulmonary embolus. HIGH RISK: Target INR is 2.5-3.5 for patients with mechanical heart valves. Performing Organization Address [facility]/Zipcode Phone Number [address] [address] [phone] [place] Prothrombin time/INR (02/17/2018 1:33 AM CDT)Only the most recent of3 resultswithin the time period is included. Protime 15.2 (H) 11.7 - 14.7 seconds [facility] INR 1.2 <=5.9 [facility] Specimen Blood Narrative Performed At [facility] RECOMMENDED COUMADIN/WARFARIN INR THERAPY RANGES STANDARD DOSE: 2.0 - 3.0 Includes: PROPHYLAXIS for venous thrombosis, systemic embolization; TREATMENT for venous thrombosis and/or pulmonary embolus. HIGH RISK: Target INR is 2.5-3.5 for patients with mechanical heart valves. Performing Organization Address [facility] Phone Number [address] [phone] [place] ECHOCARDIOGRAM REPORT - SCAN (02/16/2018 4:00 PM CDT) Narrative Performed At B-type Natriuretic Factor (BNP) (02/16/2018 2:43 PM CDT) BNP 2,849 (H) 0 - 100 pg/mL [facility] Specimen Blood Narrative Performed At Please obtain with next scheduled blood draw- [facility] noNeed for extra poke Performing Organization Address City/[facility]/Zipcode Phone Number [place] [phone] [place] [address] CENTER Limited 2D Echocardiogram (02/16/2018 1:23 PM CDT) Ejection Fraction [facility] ECHO HEARTLAB Betify [facility] Specimen Narrative Performed At Transthoracic Echocardiography Report (TTE) [facility] ECHO HEARTLAB SingleFeedESSON [facility] Demographics Patient Name ANAYA LYONSJOAN Date of Study 02/16/2018 JOSÉ MANUEL [id number] GenderFemale Visit Number [id number] Room Number 7517 Number Date of Birth1935Referring Physician Can Hernandez Age82 year(s)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 Clinical History HGB 11.9 HCT 35.8 % CAD, GERD, HLD, PVD, NSTEMI (11/2015), ACUTE STROKE s/p PCI (12/01/2015) Contrast Medium: Definity. Amount - 2 ml Height: 66 inches Weight: 74.39 kg (164 lbs) BSA: 1.84 m^2 BMI: 26.47 kg/m^2 HR: 83 bpm BP: 194/83 mmHg Summary Limited 2D only study to assess LV function. The left ventricle is chamber size (by vol index) is severely enlarged (female - LVED vol >80ml/m2). Mild concentric LV hypertrophy. The following segment(s) appear akinetic: all apical segments . The other segments are severely hypokinetic. Global LV systolic function severely reduced . Estimated LVEF by qualitative assessment is severely reduced (25-29%) . Previous Study Compared to the previous study on 02/15/2018, worsening LVEF/ function. Signature Findings Technical Quality: Technically adequate exam. Left Ventricle The left ventricle is chamber size (by vol index) is severely enlarged (female - LVED vol >80ml/m2). Mi ld concentric LV hypertrophy. The following se gment(s) appear akinetic: all apical segments . Th e other segments are severely hypokinetic. Global LV systolic function severely reduced . Estimated LV EF by qualitative assessment is severely reduced (2 5-29%) . Left AtriumLA size is normal . Right VentricleNormal right ventricle structure and function. Right Atrium The RA is not well visualized. Aortic Valve Mild AoV cusp thickening. Mitral Valve Mild MV leaflet thickening. Tricuspid ValveTV is not well visualized. Pulmonic Valve PV is not well visualized. AortaAortic root size (SInus of Valsalva diameter) is no rmal . PericardiumNo evidence of pericardial effusion. IVC/SVC/PA/PV/PleuralThe estimated RA pressure by IVC dynamics in determinate . Chambers/Structures Left Atrium LA Dimension: 3.65 cm Left Ventricle LVIDd: 5.12 cm LV Septum Diastolic: 1.05 cm LV PW Diastolic: 1.21 cm LVEDV Christy's:150.91 ml LVESV Christy's:106.12 ml LVEF Christy's: 29.7 %LVEDV I: 82 ml/m^2 LVESVI: 58 ml/m^2 Aorta Ao Root S of Linette.: 3.17 cm Procedure Note Interface, External Ris In - 02/16/2018 3:29 PM CDT Transthoracic Echocardiography Report (TTE) Demographics Patient Name CASEY LYONS Date of Study 02/16/2018 JOSÉ MANUEL Gender Female Visit Number [id number] Race Room Number 7517 Number Date of 1935 Referring Physician Can Hernandez Age 82 year(s) 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 Clinical History HGB 11.9 HCT 35.8 % CAD, GERD, HLD, PVD, NSTEMI (11/2015), ACUTE STROKE s/p PCI (12/01/2015) Contrast Medium: Definity. Amount - 2 ml Height: 66 inches Weight: 74.39 kg (164 lbs) BSA: 1.84 m^2 BMI: 26.47 kg/m^2 HR: 83 bpm BP: 194/83 mmHg Summary Limited 2D only study to assess LV function. The left ventricle is chamber size (by vol index) is severely enlarged (female - LVED vol >80ml/m2). Mild concentric LV hypertrophy. The following segment(s) appear akinetic: all apical segments . The other segments are severely hypokinetic. Global LV systolic function severely reduced . Estimated LVEF by qualitative assessment is severely reduced (25-29%) . Previous Study Compared to the previous study on 02/15/2018, worsening LVEF/ function. Signature Findings Technical Quality: Technically adequate exam. Left Ventricle The left ventricle is chamber size (by vol index) is severely enlarged (female - LVED vol >80ml/m2). Mild concentric LV hypertrophy. The following segment(s) appear akinetic: all apical segments . The other segments are severely hypokinetic. Global LV systolic function severely reduced . Estimated LVEF by qualitative assessment is severely reduced (25-29%) . Left Atrium LA size is normal . Right Ventricle Normal right ventricle structure and function. Right Atrium The RA is not well visualized. Aortic Valve Mild AoV cusp thickening. Mitral Valve Mild MV leaflet thickening. Tricuspid Valve TV is not well visualized. Pulmonic Valve PV is not well visualized. Aorta Aortic root size (SInus of Valsalva diameter) is normal . Pericardium No evidence of pericardial effusion. IVC/SVC/PA/PV/Pleural The estimated RA pressure by IVC dynamics indeterminate . Chambers/Structures Left Atrium LA Dimension: 3.65 cm Left Ventricle LVIDd: 5.12 cm LV Septum Diastolic: 1.05 cm LV PW Diastolic: 1.21 cm LVEDV Christy's:150.91 ml LVESV Christy's:106.12 ml LVEF Christy's: 29.7 % LVEDVI: 82 ml/m^2 LVESVI: 58 ml/m^2 Aorta Ao Root S of Linette.: 3.17 cm Performing Organization Address City/State/Zipcode Phone Number [facility] SMITHA HEARTLAB MKGIUSEPPE [facility] Carotid doppler bilateral (02/16/2018 1:15 PM CDT) Ejection Fraction [facility]ART[facility] Specimen Impressions Performed At Right Impression [facility]CHO [facility] 1. There is 50-69% diameter reduction (approximately [...] in cm Carotid Right Measurements + +----+----+-----+ +---- + + !Location !PSV !EDV !Angle!%Stenosis 2D!%Stenosis Doppler!Tortuosity ! + +----+----+-----+ +---- + + !Prox CCA !93.2!10.6!60 !! ! ! + +----+----+-----+ +---- + + !Dist CCA !70.4!7.62!60 !! ! ! + +----+----+-----+ +---- + + !Prox ICA !221 !20.6!60 !69% !50-69% ! ! + +----+----+-----+ +---- + + !Dist ICA !159 !24.3!60 !! ! ! + +----+----+-----+ +---- + + !Prox ECA !228 !26.2!60 !! ! ! + +----+----+-----+ +---- + + !Vertebral!45.6!11!60 !! ! ! + +----+----+-----+ +---- + + !Prox Subclavian!168 !!60 !! ! ! + +----+----+-----+ +---- + + - There is antegrade vertebral flow noted on the right side. - Additional Measurements:ICAPSV/CCAPSV 3.14.ICAEDV/CCAEDV 2.29. Carotid Left Measurements + +----+----+-----+ +---- + + !Location !PSV !EDV !Angle!%Stenosis 2D!%Stenosis Doppler!Tortuosity ! + +----+----+-----+ +---- + + !Prox CCA !80.9!9.43!60 !! ! ! + +----+----+-----+ +---- + + !Dist CCA !63.9!12.3!60 !! ! ! + +----+----+-----+ +---- + + !Prox ICA !256 !22!60 !!>50% ! ! + +----+----+-----+ +---- + + !Dist ICA !110 !19.6!60 !! ! ! + +----+----+-----+ +---- + + !Prox ECA !68!17!60 !! ! ! + +----+----+-----+ +---- + + !Vertebral!56.3!13.5!60 !! ! ! + +----+----+-----+ +---- + + !Prox Subclavian!164 !!60 !! ! ! + +----+----+-----+ +---- + + - There is antegrade vertebral flow noted on the left side. - Additional Measurements:ICAPSV/CCAPSV 4.01.ICAEDV/CCAEDV 2.33. Narrative Performed At LAB - Carotid Duplex Study [facility] ECHO HEARTLAB MKCKESSON [facility] Demographics Patient NameSTOVER, COLETTADate of Study 02/16/2018 JOSÉ MANUEL Age 82 Visit [id number] GenderFemale Date of 1935 [id number] Physician Partition Assembly Machine Operator Tomy Yan MD RVSPhysicibryson Ye RVT Procedure Type of Study: Cerebral: [...] 02/16/2018 JOSÉ MANUEL Age 82 Visit Number [id number] Gender Female Accession Number [id number] Date of 1935 Referring [facility] Room Number 7517 Physician Partition Assembly Machine Operator Tomy Garcia Interpreting Baldev Yan MD RVS Physician Kira Ye RVT [...] left side. - Additional Measurements:ICAPSV/CCAPSV 4.01.ICAEDV/CCAEDV 2.33. Performing Organization Address City/State/Zipcode Phone Number [facility] ECHO HEARTLAB MKCKESSON CPACS XR chest 1 view portable / bedside (02/16/2018 10:35 AM CDT) Specimen Narrative Performed At FINAL REPORT [facility] HISTORY : chest pain. Comparison: Chest x-ray [...] MD Report Verified Date/Time:02/16/2018 11:13:08 Reading Location: [facility] Radiology Reading Room Procedure Note Interface, External [...] Report Verified Date/Time: 02/16/2018 11:13:08 Reading Location: [facility] Radiology Reading Room Performing Organization Address City/State/Zipcode Phone Number RIS Platelet count (02/16/2018 8:30 AM CDT) Platelets 230 150 - 450 K/CU MM [facility] Specimen Blood Performing Organization Address City/State/Zipcode Phone Number [phone] [place] [address] brain without IV contrast portable (02/16/2018 5:45 AM CDT) Specimen Narrative Performed At FINAL REPORT [facility] EXAM: CT head without contrast, portable. CLINICAL [...] MD Report Verified Date/Time:02/16/2018 06:53:18 Reading Location: [address] Transitional Reading Room Procedure Note Interface, [...] Report Verified Date/Time: 02/16/2018 06:53:18 Reading Location: [address] Transitional Reading Room Performing Organization Address City/State/Zipcode Phone Number [employer] ECG 12 lead (02/16/2018 4:16 AM CDT)Only the most recent of3 resultswithin the time period is included. Specimen Narrative Performed At Ventricular Rate 119 BPM GE MUSE Atrial Rate 111 BPM QRS Duration 88 ms Q-T Interval 350 ms QTC Calculation(Bazett) 492 ms R [place] 47 degrees T [place] 143 degrees Atrial fibrillation with rapid ventricular response T wave inversion lateral leads consider postischemic changes Prolonged QT Abnormal ECG When compared with ECG of 16-FEB-2018 00:20, No significant changes Confirmed by MD KILLIAN YOCHAI ([id number]) on 02/17/2018 6:37:12 AM Procedure Note Interface, External Ris In - 02/17/2018 6:37 AM CDT Ventricular Rate 119 BPM Atrial Rate 111 BPM QRS Duration 88 ms Q-T Interval 350 ms QTC Calculation(Bazett) 492 ms R [place] 47 degrees T [place] 143 degrees Atrial fibrillation with rapid ventricular response T wave inversion lateral leads consider postischemic changes Prolonged QT Abnormal ECG When compared with ECG of 16-FEB-2018 00:20, No significant changes Confirmed by MD KILLIAN YOCHAI ([id number]) on 02/17/2018 6:37:12 AM Performing Organization Address City/State/Zipcode Phone Number [employer] ECHOCARDIOGRAM REPORT - SCAN (02/15/2018 8:00 PM CDT) Narrative Performed At 2D Echo W/Doppler(CW/PW/Color) (02/15/2018 11:45 AM CDT) Ejection [facility] ECHO HEARTLAB MKCKESSON CPACS Specimen Narrative Performed At Transthoracic Echocardiography Report (TTE) [facility] ECHO HEARTLAB [facility] Demographics Patient Name CASEY LYONS Date of Study 02/15/2018 JOSÉ MANUEL [id number] GenderFemale Visit Number [id number] Unknown [id number] Room Number 7517 Number Date of Birth1935Referring Physician Barrett Barreto Age82 year(s)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 Yeaddiss is forshortened but appears hypokinetic. Previous Study In comparison with the prior exam 12-06-15 the following changes are noted: LV systolic function has improved . Signature Findings Technical Quality: Good visualization Left Ventricle The left ventricle is chamber size (by PSLAX di mension) is mildly enlarged (female - LVIDd 5. 3-5.6cm) . No rmal LV wall thickness. Basal inferior appears ak inetic. Apical septum, mid to apical in ferolateral appear severely hypokinetic. Yeaddiss is fo rshortened but appears hypokinetic. Se ptal motion is abnormal, likely related to prior ca rdiac surgery . Th e other segments contract normally. Gl obal LV systolic function mildly reduced . LV EF by Christy's method of disk assessment is mi ldly reduced (45-49%) . Th e LVEF was measured using Christy's bi-plane me thod of disk . No rmal (cardiac index 2-3 L/min/m2) cardiac output st ate at rest is noted. Gr makenzie 1 diastolic dysfunction (impaired relaxation an d low-normal LA pressure). Left AtriumLA size is mildly enlarged (35-41 ml/m2) . Right VentricleThe right ventricular chamber size and systolic fu nction are within normal limits. Right Atrium RA cavity size is normal . Aortic Valve Mild AoV cusp thickening. Mitral Valve Mild mitral annular calcification. Mi ld MV leaflet thickening. Tr alexia mitral regurgitation. Tricuspid ValveUnable to estimate peak systolic PA pressure; in adequate TR velocity signal. Pulmonic Valve PV is not well visualized; function appears normal by Doppler visualized. AortaAortic root size (SInus of Valsalva diameter) is no rmal . Proximal ascending aorta size is normal . PericardiumNo significant pericardial effusion is visualized. IVC/SVC/PA/PV/PleuralThe estimated RA pressure by IVC dynamics 0-5mmHg . Chambers/Structures Left Atrium LA Volume: 76.17 ml LA Area: 20.64 cm^2 LA Vol. Index: 41 ml/m^2 Left Ventricle LVIDd: 5.27 cm LV Septum Diastolic: 0.88 cm LV PW Diastolic: 1.1 cm LVEDV Christy's:138.29 ml LVESV Christy's:71.91 ml LVEF Christy's: 48 %L VEDVI: 75 ml/m^2 LVESVI: 39 ml/m^2 LVOT Diameter: 1.89 cm Right Ventricle TAPSE: 1.48 cm Aorta Ao Root S of Linette.: 2.93 cmAscending Aorta: 3.08 cm Doppler/Quantitative Measurements Mitral Valve MV Peak E-Wave: 1.19 m/sMV Peak A-Wave: 1.39 m/s E/A Ratio: 0.85 [...] 02/15/2018 JOSÉ MANUEL Gender Female Visit Number [id number] Race Unknown Room Number 7517 Number Date of 1935 Referring Physician Barrett Barreto Age 82 year(s) 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 Yeaddiss is forshortened but appears hypokinetic. Previous Study In comparison with the prior exam 615-16 the following changes are noted: LV systolic function has improved . Signature Findings Technical Quality: Good visualization Left Ventricle The left ventricle is chamber size (by PSLAX dimension) is mildly enlarged (female - LVIDd 5.3-5.6cm) . Normal LV wall thickness. Basal inferior appears akinetic. Apical septum, mid to apical inferolateral appear severely hypokinetic. Yeaddiss is forshortened but appears hypokinetic. Septal motion [...] CO: 5.38 l/min LVOT CI: 2.92 l/min/m^2 Performing Organization Address City/[facility] Phone Number [facility] MKCKESSON CPACS Vitamin B12 and Folate (02/15/2018 4:20 AM CDT) Vitamin B12 1,440 (H) 213 - 816 pg/mL [facility] Folate 7.6 >=7.0 ng/mL [facility] Specimen Blood Performing Organization Address City/State/Zipcode Phone Number [address] [address] CENTER RPR (02/15/2018 4:20 AM CDT) RPR Nonreactive Nonreactive [facility] Specimen Blood Performing Organization Address City/[facility]/Zipcode Phone Number [address] [phone] [place] TSH (02/15/2018 4:20 AM CDT) TSH 0.94 0.35 - 4.94 uIU/mL [facility] Specimen Blood Performing Organization Address City/State/[facility] Phone Number [address] [address] [place] Hemoglobin A1c (02/15/2018 4:20 AM CDT) Hemoglobin A1C 5.4 4.3 - 6.1 % [facility] Specimen Blood Performing Organization Address [facility] Phone Number [address] [address] [place] Lipid panel (02/15/2018 4:20 AM CDT) Triglycerides 137Comment: Specimen slightly mg/dL [facility] Cholesterol 155Comment: Specimen slightly mg/dL [facility] HDL 59 mg/dL [facility] LDL Calculated 69 mg/dL [facility] Specimen Blood Narrative Performed At [facility] Triglyceride Reference Range: Low Risk <150 [id number] High Risk 200-499 Very High Risk>=500 Cholesterol Reference Range: Low Risk <200 [id number] High Risk>240 HDL Cholesterol Reference Range: Low Risk >=60 High Risk <40 LDL Cholesterol Reference Range: Optimal<100 Near Ctgspry280-312 [id number] Rhxo678-830 Very High >=190 Performing Organization Address City/State/Zipcode Phone Number [address] [address] [phone] CENTER after 12/22/2017 Insurance Payer Benefit Plan / Group Subscriber ID Type Phone Address MEDICARE MEDICARE A B xxxxxxxxxx Medicare MCR SUPPLEMENT/INDIVIDUAL [employer]ARP/[facility] xxxxxxxxxxx [address] (Home) [place] [address] Advance Directives Patient has advance care planning documents, and code status on file. For more information, please contact:[address] [phone] [place], [place] [phone] Code Status Date Activated Date Inactivated Comments Full Code 02/14/2018 2:17 PM 02/23/2018 4:25 PM This code status was determined by: Patient Full Code 12/04/2015 1:48 PM 12/16/2015 5:20 PM This code status was determined by: Patient Full Code 12/04/2015 1:47 PM 12/04/2015 1:48 PM This code status was determined by: Patient Full Code 12/04/2015 1:40 PM 12/04/2015 1:47 PM This code status was determined by: Patient Full Code 11/29/2015 7:25 PM 12/04/2015 1:40 PM This code status was determined by: Patient
--- OUTSIDE RECORDS SUMMARY | 2018-12-23 21:29 | XMS REPORT ---
:1935 [facility] Address [address] [place] [address] Dr. Mcduffie [address] [place] [id number] Care Team Providers Name Role Phone [place] [...] Comments SODIUM (BEAKER) (test 134 meq/L 136-145 rmuy=181) POTASSIUM (BEAKER) (test 4.5 meq/L 3.5-5.1 Specimen slightly hemolyzed opsq=610) CHLORIDE (BEAKER) (test 108 meq/L 98-107 zlqr=217) CO2 (BEAKER) (test vqrn=282) 18 meq/L 22-29 BLOOD UREA NITROGEN (BEAKER) 15 mg/dL 7-21 (test rlux=666) CREATININE (BEAKER) (test 1.04 mg/dL 0.57-1.25 Specimen slightly hemolyzed vsdb=201) GLUCOSE RANDOM (BEAKER) 117 mg/dL 70-105 (test cgoh=710) CALCIUM (BEAKER) (test 8.8 mg/dL 8.4-10.2 lvia=414) EGFR (BEAKER) (test 51 mL/min/1.73 sq m ESTIMATED GFR IS NOT qztm=9383) ACCURATE CREATININE CLEARANCE IN PREDICTING GLOMERULAR FILTRATION RATE. ESTIMATED GFR IS NOT APPLICABLE FOR DIALYSIS PATIENTS. CBC W/PLT COUNT & AUTO [id number] 06:55:00 Test Item Value Reference Range Comments WHITE BLOOD CELL COUNT (BEAKER) (test rjyo=197) 10.1 K/ L 3.5-10.5 RED BLOOD CELL COUNT (BEAKER) (test rcyn=540) 3.36 M/ L 3.93-5.22 HEMOGLOBIN (BEAKER) (test rlzi=251) 10.6 GM/DL 11.2-15.7 HEMATOCRIT (BEAKER) (test jfhh=509) 33.4 % 34.1-44.9 MEAN CORPUSCULAR VOLUME (BEAKER) (test djgp=631) 99.4 fL 79.4-94.8 MEAN CORPUSCULAR HEMOGLOBIN (BEAKER) (test 31.5 pg 25.6-32.2 npys=507) MEAN CORPUSCULAR HEMOGLOBIN CONC (BEAKER) (test 31.7 GM/DL 32.2-35.5 ibfg=249) RED CELL DISTRIBUTION WIDTH (BEAKER) (test 13.2 % 11.7-14.4 rves=030) PLATELET COUNT (BEAKER) (test myzf=191) 206 K/CU MM 150-450 MEAN PLATELET VOLUME (BEAKER) (test pewv=695) 11.1 fL 9.4-12.3 NUCLEATED RED BLOOD CELLS (BEAKER) (test 0 /100 WBC 0-0 sjtb=201) NEUTROPHILS RELATIVE PERCENT (BEAKER) (test 78 % kpku=917) LYMPHOCYTES RELATIVE PERCENT (BEAKER) (test 12 % alno=783) MONOCYTES RELATIVE PERCENT (BEAKER) (test 7 % ithp=976) EOSINOPHILS RELATIVE PERCENT (BEAKER) (test 2 % nctw=385) BASOPHILS RELATIVE PERCENT (BEAKER) (test 0 % jgmz=379) NEUTROPHILS ABSOLUTE COUNT (BEAKER) (test 7.86 K/ L 1.56-6.13 ddtj=110) LYMPHOCYTES ABSOLUTE COUNT (BEAKER) (test 1.21 K/ L 1.18-3.74 afur=873) MONOCYTES ABSOLUTE COUNT (BEAKER) (test 0.73 K/ L 0.24-0.36 byfj=674) EOSINOPHILS ABSOLUTE COUNT (BEAKER) (test 0.19 K/ L 0.04-0.36 yipb=648) BASOPHILS ABSOLUTE COUNT (BEAKER) (test 0.04 K/ L 0.01-0.08 cuoi=790) IMMATURE GRANULOCYTES-RELATIVE PERCENT (BEAKER) 0 % 0-1 (test lhlr=2710) BASIC METABOLIC [id number] 05:32:00 Test Item Value Reference Range Comments SODIUM (BEAKER) (test 135 meq/L 136-145 eoxl=680) POTASSIUM (BEAKER) (test 3.9 meq/L 3.5-5.1 ndgh=214) CHLORIDE (BEAKER) (test 108 meq/L 98-107 gapx=056) CO2 (BEAKER) (test 20 meq/L 22-29 fzyr=591) BLOOD UREA NITROGEN 16 mg/dL 7-21 (BEAKER) (test vxhb=959) CREATININE (BEAKER) (test 1.03 mg/dL 0.57-1.25 waln=995) GLUCOSE RANDOM (BEAKER) 102 mg/dL 70-105 (test sunf=867) CALCIUM (BEAKER) (test 8.7 mg/dL 8.4-10.2 ovfb=582) EGFR (BEAKER) (test 52 mL/min/1.73 sq m ESTIMATED GFR IS NOT mcya=0329) ACCURATE CREATININE CLEARANCE IN PREDICTING GLOMERULAR FILTRATION RATE. ESTIMATED GFR IS NOT APPLICABLE FOR DIALYSIS PATIENTS. CBC W/PLT COUNT & AUTO [id number] 05:11:00 Test Item Value Reference Range Comments WHITE BLOOD CELL COUNT (BEAKER) (test fcxa=056) 6.0 K/ L 3.5-10.5 RED BLOOD CELL COUNT (BEAKER) (test yziw=768) 3.26 M/ L 3.93-5.22 HEMOGLOBIN (BEAKER) (test vicw=172) 10.0 GM/DL 11.2-15.7 HEMATOCRIT (BEAKER) (test rgyh=417) 31.7 % 34.1-44.9 MEAN CORPUSCULAR VOLUME (BEAKER) (test weqd=797) 97.2 fL 79.4-94.8 MEAN CORPUSCULAR HEMOGLOBIN (BEAKER) (test 30.7 pg 25.6-32.2 lxxv=380) MEAN CORPUSCULAR HEMOGLOBIN CONC (BEAKER) (test 31.5 GM/DL 32.2-35.5 eirs=810) RED CELL DISTRIBUTION WIDTH (BEAKER) (test 13.2 % 11.7-14.4 xgbs=943) PLATELET COUNT (BEAKER) (test yjbl=735) 199 K/CU MM 150-450 MEAN PLATELET VOLUME (BEAKER) (test bkqj=724) 10.7 fL 9.4-12.3 NUCLEATED RED BLOOD CELLS (BEAKER) (test 0 /100 WBC 0-0 vutd=274) NEUTROPHILS RELATIVE PERCENT (BEAKER) (test 60 % uwcs=176) LYMPHOCYTES RELATIVE PERCENT (BEAKER) (test 23 % emrt=371) MONOCYTES RELATIVE PERCENT (BEAKER) (test 13 % rtxh=064) EOSINOPHILS RELATIVE PERCENT (BEAKER) (test 3 % xwzd=001) BASOPHILS RELATIVE PERCENT (BEAKER) (test 0 % laoo=662) NEUTROPHILS ABSOLUTE COUNT (BEAKER) (test 3.59 K/ L 1.56-6.13 gewy=519) LYMPHOCYTES ABSOLUTE COUNT (BEAKER) (test 1.36 K/ L 1.18-3.74 nzwx=958) MONOCYTES ABSOLUTE COUNT (BEAKER) (test 0.77 K/ L 0.24-0.36 wqlg=935) EOSINOPHILS ABSOLUTE COUNT (BEAKER) (test 0.20 K/ L 0.04-0.36 znza=784) BASOPHILS ABSOLUTE COUNT (BEAKER) (test 0.02 K/ L 0.01-0.08 lmul=894) IMMATURE GRANULOCYTES-RELATIVE PERCENT (BEAKER) 0 % 0-1 (test vrcg=2542) [id number] 07:46:00 Test Item Value Reference Range Comments MAGNESIUM (BEAKER) (test yuyd=053) 2.2 mg/dL 1.6-2.6 BASIC METABOLIC [id number] 07:46:00 Test Item Value Reference Range Comments SODIUM (BEAKER) (test 135 meq/L 136-145 jgqw=990) POTASSIUM (BEAKER) (test 3.6 meq/L 3.5-5.1 aare=567) CHLORIDE (BEAKER) (test 106 meq/L 98-107 eybc=381) CO2 (BEAKER) (test 21 meq/L 22-29 kkzx=544) BLOOD UREA NITROGEN 21 mg/dL 7-21 (BEAKER) (test eclw=802) CREATININE (BEAKER) (test 1.11 mg/dL 0.57-1.25 kouh=084) GLUCOSE RANDOM (BEAKER) 97 mg/dL 70-105 (test iaoh=591) CALCIUM (BEAKER) (test 8.8 mg/dL 8.4-10.2 aptl=833) EGFR (BEAKER) (test 47 mL/min/1.73 sq m ESTIMATED GFR IS NOT ysbu=2955) ACCURATE CREATININE CLEARANCE IN PREDICTING GLOMERULAR FILTRATION RATE. ESTIMATED GFR IS NOT APPLICABLE FOR DIALYSIS PATIENTS. CBC W/PLT COUNT & AUTO [id number] 07:31:00 Test Item Value Reference Range Comments WHITE BLOOD CELL COUNT (BEAKER) (test bkhc=047) 7.1 K/ L 3.5-10.5 RED BLOOD CELL COUNT (BEAKER) (test wgqg=365) 3.41 M/ L 3.93-5.22 HEMOGLOBIN (BEAKER) (test layc=942) 10.7 GM/DL 11.2-15.7 HEMATOCRIT (BEAKER) (test oopy=317) 32.7 % 34.1-44.9 MEAN CORPUSCULAR VOLUME (BEAKER) (test ymys=517) 95.9 fL 79.4-94.8 MEAN CORPUSCULAR HEMOGLOBIN (BEAKER) (test 31.4 pg 25.6-32.2 lmfu=577) MEAN CORPUSCULAR HEMOGLOBIN CONC (BEAKER) (test 32.7 GM/DL 32.2-35.5 ioii=642) RED CELL DISTRIBUTION WIDTH (BEAKER) (test 13.2 % 11.7-14.4 epzb=690) PLATELET COUNT (BEAKER) (test zfao=583) 216 K/CU MM 150-450 MEAN PLATELET VOLUME (BEAKER) (test tevj=855) 10.5 fL 9.4-12.3 NUCLEATED RED BLOOD CELLS (BEAKER) (test 0 /100 WBC 0-0 djmv=405) NEUTROPHILS RELATIVE PERCENT (BEAKER) (test 66 % mtag=719) LYMPHOCYTES RELATIVE PERCENT (BEAKER) (test 20 % kjvc=721) MONOCYTES RELATIVE PERCENT (BEAKER) (test 11 % lodv=556) EOSINOPHILS RELATIVE PERCENT (BEAKER) (test 3 % lhjq=289) BASOPHILS RELATIVE PERCENT (BEAKER) (test 0 % fvtp=540) NEUTROPHILS ABSOLUTE COUNT (BEAKER) (test 4.69 K/ L 1.56-6.13 satu=835) LYMPHOCYTES ABSOLUTE COUNT (BEAKER) (test 1.44 K/ L 1.18-3.74 xent=710) MONOCYTES ABSOLUTE COUNT (BEAKER) (test 0.78 K/ L 0.24-0.36 vlcc=660) EOSINOPHILS ABSOLUTE COUNT (BEAKER) (test 0.18 K/ L 0.04-0.36 pbhv=246) BASOPHILS ABSOLUTE COUNT (BEAKER) (test 0.02 K/ L 0.01-0.08 fmuo=273) IMMATURE GRANULOCYTES-RELATIVE PERCENT (BEAKER) 0 % 0-1 (test jvna=0967) BASIC METABOLIC [id number] 14:48:00 Test Item Value Reference Range Comments SODIUM (BEAKER) (test 133 meq/L 136-145 yltq=611) POTASSIUM (BEAKER) (test 4.3 meq/L 3.5-5.1 fyww=524) CHLORIDE (BEAKER) (test 103 meq/L 98-107 xgjv=964) CO2 (BEAKER) (test 21 meq/L 22-29 rpju=385) BLOOD UREA NITROGEN 31 mg/dL 7-21 (BEAKER) (test zmub=595) CREATININE (BEAKER) (test 1.25 mg/dL 0.57-1.25 txil=911) GLUCOSE RANDOM (BEAKER) 105 mg/dL 70-105 (test wgmy=746) CALCIUM (BEAKER) (test 9.0 mg/dL 8.4-10.2 jgfi=123) EGFR (BEAKER) (test 41 mL/min/1.73 sq m ESTIMATED GFR IS NOT hixn=7077) ACCURATE CREATININE CLEARANCE IN PREDICTING GLOMERULAR FILTRATION RATE. ESTIMATED GFR IS NOT APPLICABLE FOR DIALYSIS PATIENTS. [id number] 06:03:00 Test Item Value Reference Range Comments MAGNESIUM (BEAKER) (test kmbk=581) 2.3 mg/dL 1.6-2.6 CBC (HEMOGRAM ONLY)2018-02-19 05:46:00 Test Item Value Reference Range Comments WHITE BLOOD CELL COUNT (BEAKER) (test acji=490) 8.9 K/ L 3.5-10.5 RED BLOOD CELL COUNT (BEAKER) (test xerx=745) 3.46 M/ L 3.93-5.22 HEMOGLOBIN (BEAKER) (test ccmc=090) 11.0 GM/DL 11.2-15.7 HEMATOCRIT (BEAKER) (test gdif=923) 33.3 % 34.1-44.9 MEAN CORPUSCULAR VOLUME (BEAKER) (test xlsw=447) 96.2 fL 79.4-94.8 MEAN CORPUSCULAR HEMOGLOBIN (BEAKER) (test 31.8 pg 25.6-32.2 ihuu=650) MEAN CORPUSCULAR HEMOGLOBIN CONC (BEAKER) (test 33.0 GM/DL 32.2-35.5 swtz=990) RED CELL DISTRIBUTION WIDTH (BEAKER) (test 13.1 % 11.7-14.4 ktnp=862) PLATELET COUNT (BEAKER) (test bukt=082) 218 K/CU MM 150-450 MEAN PLATELET VOLUME (BEAKER) (test ukfn=774) 10.9 fL 9.4-12.3 NUCLEATED RED BLOOD CELLS (BEAKER) (test 0 /100 WBC 0-0 ejiw=243) POCT-GLUCOSE [id number] 14:00:00 Test Item Value Reference Range Comments POC-GLUCOSE METER (BEAKER) 283 mg/dL 70-110 TESTED AT [facility] [address] [facility] (test orfv=3703) [facility] [address] [id number] 05:56:00 Test Item Value Reference Range Comments MAGNESIUM (BEAKER) (test eogb=626) 2.8 mg/dL 1.6-2.6 BASIC METABOLIC [id number] 05:56:00 Test Item Value Reference Range Comments SODIUM (BEAKER) (test 132 meq/L 136-145 cjvt=907) POTASSIUM (BEAKER) (test 4.0 meq/L 3.5-5.1 kdma=585) CHLORIDE (BEAKER) (test 104 meq/L 98-107 kjgt=782) CO2 (BEAKER) (test 19 meq/L 22-29 xfog=258) BLOOD UREA NITROGEN 31 mg/dL 7-21 (BEAKER) (test fyru=560) CREATININE (BEAKER) (test 1.28 mg/dL 0.57-1.25 hvhj=872) GLUCOSE RANDOM (BEAKER) 69 mg/dL 70-105 (test ycow=333) CALCIUM (BEAKER) (test 8.8 mg/dL 8.4-10.2 pdcr=919) EGFR (BEAKER) (test 40 mL/min/1.73 sq m ESTIMATED GFR IS NOT hawp=6200) ACCURATE CREATININE CLEARANCE IN PREDICTING GLOMERULAR FILTRATION RATE. ESTIMATED GFR IS NOT APPLICABLE FOR DIALYSIS PATIENTS. CBC (HEMOGRAM ONLY)2018-02-18 05:30:00 Test Item Value Reference Range Comments WHITE BLOOD CELL COUNT (BEAKER) (test vbtc=581) 8.4 K/ L 3.5-10.5 RED BLOOD CELL COUNT (BEAKER) (test jfst=765) 3.53 M/ L 3.93-5.22 HEMOGLOBIN (BEAKER) (test vfbm=608) 11.1 GM/DL 11.2-15.7 HEMATOCRIT (BEAKER) (test irah=044) 34.9 % 34.1-44.9 MEAN CORPUSCULAR VOLUME (BEAKER) (test ckly=289) 98.9 fL 79.4-94.8 MEAN CORPUSCULAR HEMOGLOBIN (BEAKER) (test 31.4 pg 25.6-32.2 tyfq=763) MEAN CORPUSCULAR HEMOGLOBIN CONC (BEAKER) (test 31.8 GM/DL 32.2-35.5 ivsu=413) RED CELL DISTRIBUTION WIDTH (BEAKER) (test 13.2 % 11.7-14.4 mrnu=131) PLATELET COUNT (BEAKER) (test sajx=553) 205 K/CU MM 150-450 MEAN PLATELET VOLUME (BEAKER) (test tpkg=120) 10.7 fL 9.4-12.3 NUCLEATED RED BLOOD CELLS (BEAKER) (test 0 /100 WBC 0-0 vkin=130) [id number] 23:41:00 Test Item Value Reference Range Comments ACTIVATED CLOTTING TIME (BEAKER) 92 sec TESTED AT [address] (test jsaz=327) [place] [address] [id number] 21:56:00 Test Item Value Reference Range Comments ACTIVATED CLOTTING TIME 153 sec TESTED AT [address] (BEAKER) (test ttxn=565) [place] [address] [id number] 19:28:00 Test Item Value Reference Range Comments ACTIVATED CLOTTING TIME 197 sec TESTED AT [address] (BEAKER) (test pqpy=096) [place] [address] [id number] 17:41:00 Test Item Value Reference Range Comments ACTIVATED CLOTTING TIME 246 sec TESTED AT [address] (BEAKER) (test cxus=728) [place] [address] [id number] 12:36:00 Test Item Value Reference Range Comments POTASSIUM (BEAKER) (test mqpw=695) 4.0 meq/L 3.5-5.1 TROPONIN [id number] 12:03:00 Test Item Value Reference Range Comments TROPONIN I (BEAKER) (test rmxu=113) 3.94 ng/mL 0.00-0.03 Troponin I (TnI) levels [...] failure, acidosis, acute neurological disease, and persistent tachyarrhythmia.[id number] 11:44:00 Test Item Value Reference Range Comments MAGNESIUM (BEAKER) (test igfn=742) 1.9 mg/dL 1.6-2.6 [id number] 11:37:00 Test Item Value Reference Range Comments PARTIAL THROMBOPLASTIN TIME (BEAKER) (test 98.3 seconds 22.5-36.0 lavh=167) [id number] 04:04:00 Test Item Value Reference Range Comments PARTIAL THROMBOPLASTIN TIME (BEAKER) (test 92.5 seconds 22.5-36.0 rkam=342) TROPONIN [id number] 02:06:00 Test Item Value Reference Range Comments TROPONIN I (BEAKER) (test ofeq=352) 7.11 ng/mL 0.00-0.03 Troponin I (TnI) levels [...] acute neurological disease, and persistent tachyarrhythmia.BASIC METABOLIC [id number] 01:56:00 Test Item Value Reference Range Comments SODIUM (BEAKER) (test 135 meq/L 136-145 xmjm=345) POTASSIUM (BEAKER) (test 3.7 meq/L 3.5-5.1 pyac=130) CHLORIDE (BEAKER) (test 102 meq/L 98-107 iyzh=773) CO2 (BEAKER) (test 22 meq/L 22-29 hsko=885) BLOOD UREA NITROGEN 17 mg/dL 7-21 (BEAKER) (test cpbk=211) CREATININE (BEAKER) (test 1.49 mg/dL 0.57-1.25 domy=593) GLUCOSE RANDOM (BEAKER) 90 mg/dL 70-105 (test abma=979) CALCIUM (BEAKER) (test 9.2 mg/dL 8.4-10.2 sfnc=178) EGFR (BEAKER) (test 34 mL/min/1.73 sq m ESTIMATED GFR IS NOT hwak=6212) ACCURATE CREATININE CLEARANCE IN PREDICTING GLOMERULAR FILTRATION RATE. ESTIMATED GFR IS NOT APPLICABLE FOR DIALYSIS PATIENTS. [id number] 01:53:00 Test Item Value Reference Range Comments PROTIME (BEAKER) (test aeth=574) 15.2 seconds 11.7-14.7 INR (BEAKER) (test sspv=968) 1.2 <=5.9 PARTIAL THROMBOPLASTIN TIME (BEAKER) (test 146.1 seconds 22.5-36.0 ukao=887) RECOMMENDED COUMADIN/WARFARIN INR THERAPY RANGESSTANDARD DOSE: 2.0 - 3.0 Includes: PROPHYLAXIS forvenous thrombosis, systemic embolization; TREATMENT for venous thrombosis and/or pulmonary embolus.HIGH RISK: Target INR is 2.5-3.5 for patients with mechanical heart valves.PROTHROMBIN [id number] 01:50: 00 Test Item Value Reference Range Comments PROTIME (BEAKER) (test lvqx=833) 15.2 seconds 11.7-14.7 INR (BEAKER) (test rhul=422) 1.2 <=5.9 RECOMMENDED COUMADIN/WARFARIN INR THERAPY RANGESSTANDARD DOSE: 2.0 - 3.0 Includes: PROPHYLAXIS forvenous thrombosis, systemic embolization; TREATMENT for venous thrombosis and/or pulmonary embolus.HIGH RISK: Target INR is 2.5-3.5 for patients with mechanical heart valves.CBC W/PLT COUNT & AUTO [id number] 01:43:00 Test Item Value Reference Range Comments WHITE BLOOD CELL COUNT (BEAKER) (test vtzc=023) 7.1 K/ L 3.5-10.5 RED BLOOD CELL COUNT (BEAKER) (test tbrm=188) 3.45 M/ L 3.93-5.22 HEMOGLOBIN (BEAKER) (test qekz=951) 10.8 GM/DL 11.2-15.7 HEMATOCRIT (BEAKER) (test jrvr=383) 33.2 % 34.1-44.9 MEAN CORPUSCULAR VOLUME (BEAKER) (test mrme=177) 96.2 fL 79.4-94.8 MEAN CORPUSCULAR HEMOGLOBIN (BEAKER) (test 31.3 pg 25.6-32.2 yxjx=833) MEAN CORPUSCULAR HEMOGLOBIN CONC (BEAKER) (test 32.5 GM/DL 32.2-35.5 cdhk=392) RED CELL DISTRIBUTION WIDTH (BEAKER) (test 13.3 % 11.7-14.4 fsjj=838) PLATELET COUNT (BEAKER) (test wjkt=000) 190 K/CU MM 150-450 MEAN PLATELET VOLUME (BEAKER) (test pxwy=130) 10.5 fL 9.4-12.3 NUCLEATED RED BLOOD CELLS (BEAKER) (test 0 /100 WBC 0-0 ttgr=379) NEUTROPHILS RELATIVE PERCENT (BEAKER) (test 76 % snug=143) LYMPHOCYTES RELATIVE PERCENT (BEAKER) (test 12 % qrzo=749) MONOCYTES RELATIVE PERCENT (BEAKER) (test 10 % barp=751) EOSINOPHILS RELATIVE PERCENT (BEAKER) (test 1 % dqlm=054) BASOPHILS RELATIVE PERCENT (BEAKER) (test 0 % onaj=990) NEUTROPHILS ABSOLUTE COUNT (BEAKER) (test 5.45 K/ L 1.56-6.13 qopu=244) LYMPHOCYTES ABSOLUTE COUNT (BEAKER) (test 0.85 K/ L 1.18-3.74 mfwr=969) MONOCYTES ABSOLUTE COUNT (BEAKER) (test 0.70 K/ L 0.24-0.36 dvhs=338) EOSINOPHILS ABSOLUTE COUNT (BEAKER) (test 0.10 K/ L 0.04-0.36 lthc=056) BASOPHILS ABSOLUTE COUNT (BEAKER) (test 0.02 K/ L 0.01-0.08 jokn=297) IMMATURE GRANULOCYTES-RELATIVE PERCENT (BEAKER) 0 % 0-1 (test tpuf=0881) [id number] 23:09:00 Test Item Value Reference Range Comments RPR SCREEN (BEAKER) (test ifqv=800) Nonreactive Nonreactive TROPONIN [id number] 21:20:00 Test Item Value Reference Range Comments TROPONIN I (BEAKER) (test wifu=175) 7.60 ng/mL 0.00-0.03 Troponin I (TnI) levels [...] failure, acidosis, acute neurological disease, and persistent tachyarrhythmia.[id number] 18:57:00 Test Item Value Reference Range Comments PARTIAL THROMBOPLASTIN TIME (LISANDROAKER) (test 58.1 seconds 22.5-36.0 lksa=343) TROPONIN [id number] 15:25:00 Test Item Value Reference Range Comments TROPONIN I (LISANDROAKER) (test bjjq=317) 6.89 ng/mL 0.00-0.03 Troponin I (TnI) levels [...] Value Reference Range Comments B-TYPE NATRIURETIC PEPTIDE (LISANDROAKER) (test 2849 pg/mL 0-100 aojz=012) Please obtain with next scheduled blood draw- no Need for extra pokeRAD, CHEST , 1 VIEW, NON [id number] 11:13:00Reason for exam:->chest painFINAL REPORT HISTORY : [...] aorta with some atherosclerotic calcification. Signed: Britt Gambleort Verified Date/ Time: 02/16/2018 11:13:08 Reading Location: [facility] Radiology Reading Room TROPONIN [id number] 09:59:00 Test Item Value Reference Range Comments TROPONIN I (BEAKER) (test raml=233) 6.35 ng/mL 0.00-0.03 Troponin I (TnI) levels [...] failure, acidosis, acute neurological disease, and persistent tachyarrhythmia.[id number] 09:06:00 Test Item Value Reference Range Comments PARTIAL THROMBOPLASTIN TIME (BEAKER) (test 26.7 seconds 22.5-36.0 dwfj=806) Prior to initiating heparinPLATELET [id number] 08:48:00 Test Item Value Reference Range Comments PLATELET COUNT (LISANDROAKER) (test ztfc=918) 230 K/CU MM 150-450 CT BRAIN WITHOUT IV CONTRAST - [id number] 06:53:00Reason for exam:-> post-tpaFINAL REPORT EXAM: CT [...] Verified Date/ Time: 02/16/2018 06:53:18 Reading Location: [facility] [id number] Transitional Reading Room AELMARIMAR [id number] 03:14:00 Test Item Value Reference Range Comments TROPONIN I (BEAKER) (test nkqq=740) 3.40 ng/mL 0.00-0.03 Troponin I (TnI) levels [...] acute neurological disease, and persistent tachyarrhythmia.BASIC METABOLIC [id number] 02:53:00 Test Item Value Reference Range Comments SODIUM (BEAKER) (test 137 meq/L 136-145 ybvt=701) POTASSIUM (BEAKER) (test 4.4 meq/L 3.5-5.1 afpx=985) CHLORIDE (BEAKER) (test 106 meq/L 98-107 jcxw=513) CO2 (BEAKER) (test 22 meq/L 22-29 qgft=822) BLOOD UREA NITROGEN 12 mg/dL 7-21 (BEAKER) (test ccri=640) CREATININE (BEAKER) (test 1.06 mg/dL 0.57-1.25 lblt=191) GLUCOSE RANDOM (BEAKER) 109 mg/dL 70-105 (test njam=293) CALCIUM (BEAKER) (test 9.8 mg/dL 8.4-10.2 nnrx=387) EGFR (BEAKER) (test 50 mL/min/1.73 sq m ESTIMATED GFR IS NOT mokf=8168) ACCURATE CREATININE CLEARANCE IN PREDICTING GLOMERULAR FILTRATION RATE. ESTIMATED GFR IS NOT APPLICABLE FOR DIALYSIS PATIENTS. [id number] 02:48:00 Test Item Value Reference Range Comments PROTIME (BEAKER) (test xhcb=272) 14.5 seconds 11.7-14.7 INR (BEAKER) (test sdrg=272) 1.1 <=5.9 PARTIAL THROMBOPLASTIN TIME (BEAKER) (test 25.7 seconds 22.5-36.0 zmvo=845) RECOMMENDED COUMADIN/WARFARIN INR THERAPY RANGESSTANDARD DOSE: 2.0 - 3.0 Includes: PROPHYLAXIS forvenous thrombosis, systemic embolization; TREATMENT for venous thrombosis and/or pulmonary embolus.HIGH RISK: Target INR is 2.5-3.5 for patients with mechanical heart valves.PROTHROMBIN [id number] 02:47: 00 Test Item Value Reference Range Comments PROTIME (BEAKER) (test iqzo=499) 14.5 seconds 11.7-14.7 INR (BEAKER) (test tipe=515) 1.1 <=5.9 RECOMMENDED COUMADIN/WARFARIN INR THERAPY RANGESSTANDARD DOSE: 2.0 - 3.0 Includes: PROPHYLAXIS forvenous thrombosis, systemic embolization; TREATMENT for venous thrombosis and/or pulmonary embolus.HIGH RISK: Target INR is 2.5-3.5 for patients with mechanical heart valves.CBC W/PLT COUNT & AUTO [id number] 02:29:00 Test Item Value Reference Range Comments WHITE BLOOD CELL COUNT (BEAKER) (test mbsr=240) 8.8 K/ L 3.5-10.5 RED BLOOD CELL COUNT (BEAKER) (test cyes=657) 3.71 M/ L 3.93-5.22 HEMOGLOBIN (BEAKER) (test higi=932) 11.9 GM/DL 11.2-15.7 HEMATOCRIT (BEAKER) (test qcag=813) 35.8 % 34.1-44.9 MEAN CORPUSCULAR VOLUME (BEAKER) (test mhll=692) 96.5 fL 79.4-94.8 MEAN CORPUSCULAR HEMOGLOBIN (BEAKER) (test 32.1 pg 25.6-32.2 sudu=909) MEAN CORPUSCULAR HEMOGLOBIN CONC (BEAKER) (test 33.2 GM/DL 32.2-35.5 ivdu=477) RED CELL DISTRIBUTION WIDTH (BEAKER) (test 13.2 % 11.7-14.4 gisb=520) PLATELET COUNT (BEAKER) (test jyjn=879) 205 K/CU MM 150-450 MEAN PLATELET VOLUME (BEAKER) (test fhpz=576) 10.2 fL 9.4-12.3 NUCLEATED RED BLOOD CELLS (BEAKER) (test 0 /100 WBC 0-0 hzso=915) NEUTROPHILS RELATIVE PERCENT (BEAKER) (test 83 % lrtl=831) LYMPHOCYTES RELATIVE PERCENT (BEAKER) (test 8 % tczs=640) MONOCYTES RELATIVE PERCENT (BEAKER) (test 9 % xnet=927) EOSINOPHILS RELATIVE PERCENT (BEAKER) (test 0 % tpnw=475) BASOPHILS RELATIVE PERCENT (BEAKER) (test 0 % zyqk=549) NEUTROPHILS ABSOLUTE COUNT (BEAKER) (test 7.27 K/ L 1.56-6.13 awie=508) LYMPHOCYTES ABSOLUTE COUNT (BEAKER) (test 0.68 K/ L 1.18-3.74 vtlo=388) MONOCYTES ABSOLUTE COUNT (BEAKER) (test 0.77 K/ L 0.24-0.36 rdrf=012) EOSINOPHILS ABSOLUTE COUNT (BEAKER) (test 0.01 K/ L 0.04-0.36 qajh=867) BASOPHILS ABSOLUTE COUNT (BEAKER) (test 0.02 K/ L 0.01-0.08 tghu=899) IMMATURE GRANULOCYTES-RELATIVE PERCENT (BEAKER) 1 % 0-1 (test dzdl=2400) TROPONIN [id number] 17:32:00 Test Item Value Reference Range Comments TROPONIN I (BEAKER) (test qyad=546) 0.13 ng/mL 0.00-0.03 Troponin I (TnI) levels [...] acidosis, acute neurological disease, and persistent tachyarrhythmia.HEMOGLOBIN [id number] 11:13:00 Test Item Value Reference Range Comments HEMOGLOBIN A1C (BEAKER) (test cjem=102) 5.4 % 4.3-6.1 [id number] 05:41:00 Test Item Value Reference Range Comments THYROID STIMULATING HORMONE (BEAKER) (test 0.94 uIU/mL 0.35-4.94 kwab=191) VITAMIN B12 AND [id number] 05:41:00 Test Item Value Reference Range Comments VITAMIN B12 (BEAKER) (test fgmj=509) 1440 pg/mL 213-816 FOLATE (BEAKER) (test okjm=634) 7.6 ng/mL >=7.0 [id number] 05:07:00 Test Item Value Reference Range Comments MAGNESIUM (BEAKER) (test 1.7 mg/dL 1.6-2.6 Specimen slightly hemolyzed cuun=350) BASIC METABOLIC [id number] 05:07:00 Test Item Value Reference Range Comments SODIUM (BEAKER) (test 133 meq/L 136-145 anxc=761) POTASSIUM (BEAKER) (test 4.2 meq/L 3.5-5.1 Specimen slightly juwk=558) hemolyzed CHLORIDE (BEAKER) (test 104 meq/L 98-107 spov=479) CO2 (BEAKER) (test 21 meq/L 22-29 vptv=940) BLOOD UREA NITROGEN 12 mg/dL 7-21 (BEAKER) (test frau=476) CREATININE (BEAKER) (test 0.95 mg/dL 0.57-1.25 Specimen slightly olwu=292) hemolyzed GLUCOSE RANDOM (BEAKER) 98 mg/dL 70-105 (test nuci=307) CALCIUM (BEAKER) (test 9.3 mg/dL 8.4-10.2 pzef=321) EGFR (BEAKER) (test 57 mL/min/1.73 sq m ESTIMATED GFR IS NOT nmkn=6339) ACCURATE CREATININE CLEARANCE IN PREDICTING GLOMERULAR FILTRATION RATE. ESTIMATED GFR IS NOT APPLICABLE FOR DIALYSIS PATIENTS. LIPID [id number] 05:07:00 Test Item Value Reference Range Comments TRIGLYCERIDES (BEAKER) (test 137 mg/dL Specimen slightly hemolyzed jtdt=581) CHOLESTEROL (BEAKER) (test 155 mg/dL Specimen slightly hemolyzed jsmd=367) HDL CHOLESTEROL (BEAKER) (test 59 mg/dL mqyk=031) LDL CHOLESTEROL CALCULATED 69 mg/dL (BEAKER) (test rtpq=763) Triglyceride Reference Range: Low Risk <150 Borderline 150- 199 High Risk 200-499 Very High Risk >=500Cholesterol Reference Range: Low Risk <200 Borderline 200-239 High Risk > 240HDL Cholesterol Reference Range: Low Risk >=60 High Risk <40LDL Cholesterol Reference Range: Optimal <100 Near Optimal 100-129 Borderline 130-159 High 160-189 Very High >=190PT/[id number] 04:54:00 Test Item Value Reference Range Comments PROTIME (BEAKER) (test ncjp=633) 14.0 seconds 11.7-14.7 INR (BEAKER) (test wqov=962) 1.1 <=5.9 PARTIAL THROMBOPLASTIN TIME (BEAKER) (test 27.3 seconds 22.5-36.0 dric=615) RECOMMENDED COUMADIN/WARFARIN INR THERAPY RANGESSTANDARD DOSE: 2.0 - 3.0 Includes: PROPHYLAXIS forvenous thrombosis, systemic embolization; TREATMENT for venous thrombosis and/or pulmonary embolus.HIGH RISK: Target INR is 2.5-3.5 for patients with mechanical heart valves.PROTHROMBIN [id number] 04:53: 00 Test Item Value Reference Range Comments PROTIME (BEAKER) (test yuxv=810) 14.0 seconds 11.7-14.7 INR (BEAKER) (test jnig=749) 1.1 <=5.9 RECOMMENDED COUMADIN/WARFARIN INR THERAPY RANGESSTANDARD DOSE: 2.0 - 3.0 Includes: PROPHYLAXIS forvenous thrombosis, systemic embolization; TREATMENT for venous thrombosis and/or pulmonary embolus.HIGH RISK: Target INR is 2.5-3.5 for patients with mechanical heart valves.CBC W/PLT COUNT & AUTO [id number] 04:44:00 Test Item Value Reference Range Comments WHITE BLOOD CELL COUNT (BEAKER) (test kmtx=012) 5.8 K/ L 3.5-10.5 RED BLOOD CELL COUNT (BEAKER) (test omcd=398) 3.54 M/ L 3.93-5.22 HEMOGLOBIN (BEAKER) (test htcb=465) 11.0 GM/DL 11.2-15.7 HEMATOCRIT (BEAKER) (test falv=947) 33.7 % 34.1-44.9 MEAN CORPUSCULAR VOLUME (BEAKER) (test vdql=293) 95.2 fL 79.4-94.8 MEAN CORPUSCULAR HEMOGLOBIN (BEAKER) (test 31.1 pg 25.6-32.2 vaaa=871) MEAN CORPUSCULAR HEMOGLOBIN CONC (BEAKER) (test 32.6 GM/DL 32.2-35.5 uwen=991) RED CELL DISTRIBUTION WIDTH (BEAKER) (test 13.0 % 11.7-14.4 btjq=430) PLATELET COUNT (BEAKER) (test gtdh=588) 202 K/CU MM 150-450 MEAN PLATELET VOLUME (BEAKER) (test rhgi=696) 10.7 fL 9.4-12.3 NUCLEATED RED BLOOD CELLS (BEAKER) (test 0 /100 WBC 0-0 lgga=068) NEUTROPHILS RELATIVE PERCENT (BEAKER) (test 71 % wulf=430) LYMPHOCYTES RELATIVE PERCENT (BEAKER) (test 14 % sdza=598) MONOCYTES RELATIVE PERCENT (BEAKER) (test 13 % lweb=952) EOSINOPHILS RELATIVE PERCENT (BEAKER) (test 2 % eiua=890) BASOPHILS RELATIVE PERCENT (BEAKER) (test 0 % halq=948) NEUTROPHILS ABSOLUTE COUNT (BEAKER) (test 4.08 K/ L 1.56-6.13 ocxv=891) LYMPHOCYTES ABSOLUTE COUNT (BEAKER) (test 0.80 K/ L 1.18-3.74 hmfs=091) MONOCYTES ABSOLUTE COUNT (BEAKER) (test 0.76 K/ L 0.24-0.36 hruy=218) EOSINOPHILS ABSOLUTE COUNT (BEAKER) (test 0.10 K/ L 0.04-0.36 pzlg=175) BASOPHILS ABSOLUTE COUNT (BEAKER) (test 0.02 K/ L 0.01-0.08 vbah=431) IMMATURE GRANULOCYTES-RELATIVE PERCENT (BEAKER) 0 % 0-1 (test slpe=1126) BASIC METABOLIC [id number] 16:02:00 Test Item Value Reference Range Comments SODIUM (BEAKER) (test 129 meq/L 136-145 cdha=829) POTASSIUM (BEAKER) (test 3.7 meq/L 3.5-5.1 pewi=017) CHLORIDE (BEAKER) (test 97 meq/L 98-107 xroe=118) CO2 (BEAKER) (test 22 meq/L 22-29 jhmw=105) BLOOD UREA NITROGEN 16 mg/dL 7-21 (BEAKER) (test gusf=468) CREATININE (BEAKER) (test 1.12 mg/dL 0.57-1.25 ixch=761) GLUCOSE RANDOM (BEAKER) 116 mg/dL 70-105 (test oang=214) CALCIUM (BEAKER) (test 10.0 mg/dL 8.4-10.2 giyb=065) EGFR (BEAKER) (test 47 mL/min/1.73 sq m ESTIMATED GFR IS NOT zmzv=1018) ACCURATE CREATININE CLEARANCE IN PREDICTING GLOMERULAR FILTRATION RATE. ESTIMATED GFR IS NOT APPLICABLE FOR DIALYSIS PATIENTS. CBC W/PLT COUNT & AUTO [id number] 15:31:00 Test Item Value Reference Range Comments WHITE BLOOD CELL COUNT (BEAKER) (test invl=351) 8.2 K/ L 3.5-10.5 RED BLOOD CELL COUNT (BEAKER) (test edgt=840) 4.14 M/ L 3.93-5.22 HEMOGLOBIN (BEAKER) (test ocqn=561) 13.0 GM/DL 11.2-15.7 HEMATOCRIT (BEAKER) (test xgpi=983) 39.1 % 34.1-44.9 MEAN CORPUSCULAR VOLUME (BEAKER) (test xtcv=159) 94.4 fL 79.4-94.8 MEAN CORPUSCULAR HEMOGLOBIN (BEAKER) (test 31.4 pg 25.6-32.2 mbqa=732) MEAN CORPUSCULAR HEMOGLOBIN CONC (BEAKER) (test 33.2 GM/DL 32.2-35.5 dtmn=404) RED CELL DISTRIBUTION WIDTH (BEAKER) (test 12.8 % 11.7-14.4 jhgx=194) PLATELET COUNT (BEAKER) (test anwp=829) 228 K/CU MM 150-450 MEAN PLATELET VOLUME (BEAKER) (test euoi=659) 10.3 fL 9.4-12.3 NUCLEATED RED BLOOD CELLS (BEAKER) (test 0 /100 WBC 0-0 ztvm=076) NEUTROPHILS RELATIVE PERCENT (BEAKER) (test 80 % wwcr=975) LYMPHOCYTES RELATIVE PERCENT (BEAKER) (test 10 % tmds=176) MONOCYTES RELATIVE PERCENT (BEAKER) (test 9 % lxvh=140) EOSINOPHILS RELATIVE PERCENT (BEAKER) (test 0 % tpqz=006) BASOPHILS RELATIVE PERCENT (BEAKER) (test 0 % zysn=826) NEUTROPHILS ABSOLUTE COUNT (BEAKER) (test 6.59 K/ L 1.56-6.13 ihmr=213) LYMPHOCYTES ABSOLUTE COUNT (BEAKER) (test 0.86 K/ L 1.18-3.74 jbik=221) MONOCYTES ABSOLUTE COUNT (BEAKER) (test 0.70 K/ L 0.24-0.36 pdcm=086) EOSINOPHILS ABSOLUTE COUNT (BEAKER) (test 0.03 K/ L 0.04-0.36 sgrv=504) BASOPHILS ABSOLUTE COUNT (BEAKER) (test 0.02 K/ L 0.01-0.08 afhj=533) IMMATURE GRANULOCYTES-RELATIVE PERCENT (BEAKER) 0 % 0-1 (test bjsy=1321)
[2018-12-23 22:20] LABS: Absolute Lymphocytes (CBC) 1.2 K/uL (0.7-4.9); Basophils % 0.5 % (0-1.3); Eosinophils % 3.4 % (0-4.4); Lymphocytes % 21.7 % (15.3-44.8); MPV 8.4 fL (7.6-11.3); Monocytes % 12.4 % (3.3-12.3); RBC Red Blood Cell Count 2.28 M/uL (3.86-4.86)
[2018-12-23 22:34] LABS: Potassium 5.2 mmol/L (3.5-5.1)
[2018-12-24] MEDS ORDERED: NA CHLORIDE 0.9% 0 ML ONE (00:54)
[2018-12-24] MEDS ORDERED: NA CHLORIDE 0.9% 500 ML ONE (01:00)
--- NOTE | 2018-12-24 05:20 | EDPHYS ---
Physician Documentation [facility] Name: Casey Lyons Age: 83 yrs Sex: Female : 1935 Arrival Date: 12/23/2018 Time: 21:27 Bed 3 Private MD: Gurdeep Koehler V ED Physician Varinder Vicente HPI: 12/24 05:17 This 83 yrs old Female presents to ER via Ambulatory with complaints of LOW gs HEMOGLOBIN. 05:17 Onset: The symptoms/episode began/occurred just prior to arrival. Severity of symptoms: gs At their worst the symptoms were moderate in the emergency department the symptoms are unchanged. The patient has experienced similar episodes in the past, a few times. The patient has been recently seen by a physician: the patient's primary care provider, with similar presenting complaints. Historical: - Allergies: 12/23 21:50 No Known Allergies; ea - Home Meds: 21:50 Protonix 40 mg Oral grps 1 packet once daily [Active]; losartan 100 mg oral tab 1 tab ea once daily [Active]; carvedilol 25 mg oral tab 1 tab 2 times per day [Active]; atorvastatin 80 mg oral tab 1 tab once daily [Active]; PreserVision AREDS 2 oral oral [Active]; Fish Oil oral oral [Active]; Integra Plus oral 1 cap once daily [Active]; levothyroxine 25 mcg tab 1 tab once daily [Active]; torsemide 10 mg oral tab 1 tab once daily [Active]; spironolactone 25 mg Oral tab 1 tab once daily [Active]; duloxetine 30 mg oral cpDR 1 cap once daily [Active]; Apriso 0.375 gram oral cp24 4 caps once daily [Active]; - PMHx: 21:50 Hypertension; Cellulitis of Leg; ea 21:51 Crohn's; ea - PSHx: 21:50 cardiac stents; Hysterectomy; CABG; stroke; ea - Immunization history:: Adult Immunizations up to date. - Social history:: Smoking status: Patient/guardian denies using tobacco, but has a distant history of tobacco abuse. - Ebola Screening: : No symptoms or risks identified at this time. ROS: 12/24 05:17 All other systems are negative. gs Exam: 05:17 Head/Face: Normocephalic, atraumatic. Cardiovascular: Regular rate and rhythm with a gs normal S1 and S2. No gallops, murmurs, or rubs. Normal PMI, no JVD. No pulse deficits. Respiratory: Lungs have equal breath sounds bilaterally, clear to auscultation and percussion. No rales, rhonchi or wheezes noted. No increased work of breathing, no retractions or nasal flaring. Skin: Warm, dry with normal turgor. Normal color with no rashes, no lesions, and no evidence of cellulitis. MS/ Extremity: Pulses equal, no cyanosis. Neurovascular intact. Full, normal range of motion. Neuro: Awake and alert, GCS 15, oriented to person, place, time, and situation. Cranial nerves II-XII grossly intact. Motor strength 5/5 in all extremities. Sensory grossly intact. Cerebellar exam normal. Normal gait. 05:17 Constitutional: The patient appears alert, awake. Vital Signs: 12/23 21:44 BP 122 / 85; Pulse 50; Resp 18; Temp 98.5; Pulse Ox 100% ; Weight 58.97 kg; Height 5 ea ft. 3 in. (160.02 cm); Pain 0/10; 22:30 BP 132 / 86; Pulse 55; Resp 18; Pulse Ox 100% ; ea 23:00 BP 131 / 47; Pulse 55; Resp 18; Pulse Ox 100% on R/A; ea 12/24 00:20 BP 154 / 50; Pulse 58; Resp 18; Pulse Ox 100% ; ea 01:42 BP 177 / 46; Pulse 56; Resp 16; Pulse Ox 100% ; ea 02:35 BP 157 / 47; Pulse 56; Resp 18; Temp 97.8; Pulse Ox 100% on R/A; ea 03:05 BP 141 / 38; Pulse 56; Resp 17; Temp 97.7; Pulse Ox 100% on R/A; ea 04:25 BP 180 / 47; Pulse 55; Resp 15; Temp 97.7; Pulse Ox 100% on R/A; ea 05:30 BP 155 / 40; Pulse 58; Resp 17; Temp 97.8; Pulse Ox 98% on R/A; ea 06:17 BP 175 / 45; Pulse 55; Resp 18; Temp 98.1(O); Pulse Ox 99% ; bb 12/23 21:44 Body Mass Index 23.03 (58.97 kg, 160.02 cm) ea MDM: 12/23 21:56 Patient medically screened. 12/24 05:17 Data reviewed: vital signs, nurses notes. Counseling: I had a detailed discussion with gs the patient and/or guardian regarding: the historical points, exam findings, and any diagnostic results supporting the discharge/admit diagnosis, the presence of at least one elevated blood pressure reading (>120/80) during this emergency department visit. Physician consultation: Gurdeep Koehler MD regarding patient's condition, says not able to admit, dr urrutia says pt worked up no gi source of bleeding can give blood discharge. 12/23 21:51 Order name: CBC with Diff; Complete Time: 23:18 12/23 21:51 Order name: Basic Metabolic Panel; Complete Time: 23:18 12/23 21:51 Order name: T\T\S 12/24 00:48 Order name: ABO/RH no charge; Complete Time: 00:52 [facility] 12/24 00:54 Order name: Packed RBC Leukored [facility] 12/24 04:10 Order name: Hemoglobin Administered Medications: No medications were administered Disposition: 12/24/18 05:19 Discharged to Home. Impression: Anemia in other chronic diseases classified elsewhere. - Condition is Stable. - Discharge Instructions: Anemia, Nonspecific. - Medication Reconciliation Form, Thank You Letter, Antibiotic Education, Prescription Opioid Use form. - Follow up: Gurdeep Koehler MD; When: 1 - 2 days; Reason: Re-evaluation by your physician. Signatures: Dispatcher MedP[facility] Presbyterian Medical CenterDayanara Mayen RN RN ea Starr, Gregory, MD MD Corrections: (The following items were deleted from the chart) 06:33 05:19 12/24/2018 05:19 Discharged to Home. Impression: Anemia in other chronic diseases ea classified elsewhere. Condition is Stable. Forms are Medication Reconciliation Form, Thank You Letter, Antibiotic Education, Prescription Opioid Use. Follow up: Gurdeep Koehler; When: 1 - 2 days; Reason: Re-evaluation by your physician.
--- NOTE | 2018-12-24 05:20 | ER ---
Nurse's Notes [facility] Name: Casey Lyons Age: 83 yrs Sex: Female : 1935 Arrival Date: 12/23/2018 Time: 21:27 Bed 3 Private MD: Gurdeep Koehler V Diagnosis: Anemia in other chronic diseases classified elsewhere Presentation: 12/23 21:42 Presenting complaint: Patient states: Pt reports she had blood work done today, states ea she got a call from Dr. Koehler stating her hemoglobin was critically low and to come to ED. Transition of care: patient was not received from another setting of care. Onset of symptoms was December 23, 2018. Risk Assessment: Do you want to hurt yourself or someone else? Patient reports no desire to harm self or others. Initial Sepsis Screen: Does the patient meet any 2 criteria? No. Patient's initial sepsis screen is negative. Does the patient have a suspected source of infection? No. Patient's initial sepsis screen is negative. Care prior to arrival: None. 21:42 Method Of Arrival: Ambulatory ea 21:42 Acuity: CLINT 3 ea Triage Assessment: 21:52 General: Appears in no apparent distress. Behavior is calm, cooperative, appropriate ea for age. Pain: Denies pain. Historical: - Allergies: 21:50 No Known Allergies; ea - Home Meds: 21:50 Protonix 40 mg Oral grps 1 packet once daily [Active]; losartan 100 mg oral tab 1 tab ea once daily [Active]; carvedilol 25 mg oral tab 1 tab 2 times per day [Active]; atorvastatin 80 mg oral tab 1 tab once daily [Active]; PreserVision AREDS 2 oral oral [Active]; Fish Oil oral oral [Active]; Integra Plus oral 1 cap once daily [Active]; levothyroxine 25 mcg tab 1 tab once daily [Active]; torsemide 10 mg oral tab 1 tab once daily [Active]; spironolactone 25 mg Oral tab 1 tab once daily [Active]; duloxetine 30 mg oral cpDR 1 cap once daily [Active]; Apriso 0.375 gram oral cp24 4 caps once daily [Active]; - PMHx: 21:50 Hypertension; Cellulitis of Leg; ea 21:51 Crohn's; ea - PSHx: 21:50 cardiac stents; Hysterectomy; CABG; stroke; ea - Immunization history:: Adult Immunizations up to date. - Social history:: Smoking status: Patient/guardian denies using tobacco, but has a distant history of tobacco abuse. - Ebola Screening: : No symptoms or risks identified at this time. Screenin:52 Abuse screen: Denies threats or abuse. Nutritional screening: No deficits noted. ea Tuberculosis screening: No symptoms or risk factors identified. Fall Risk None identified. Assessment: 21:52 General: Appears in no apparent distress. Behavior is calm, cooperative, appropriate ea for age. Pain: Denies pain. Neuro: Level of Consciousness is awake, alert, obeys commands, Oriented to person, place, time, situation. Cardiovascular: Patient's skin is warm and dry. Respiratory: Airway is patent Respiratory effort is even, unlabored, Respiratory pattern is regular, symmetrical. GI: Patient currently denies bloody stool, nausea, vomiting. Derm: Skin is pale. Musculoskeletal: Circulation, motion, and sensation intact. 22:55 Reassessment: Patient and/or family updated on plan of care and expected duration. Pain ea level reassessed. Patient is alert, oriented x 3, equal unlabored respirations, skin warm/dry/pink. Awaiting on lab results. 23:33 Reassessment: Patient and/or family updated on plan of care and expected duration. Pain ea level reassessed. Patient is alert, oriented x 3, equal unlabored respirations, skin warm/dry/pink. Provider at bedside updating pt on plan of care. 12/24 00:21 Reassessment: Patient and/or family updated on plan of care and expected duration. Pain ea level reassessed. Patient is alert, oriented x 3, equal unlabored respirations, skin warm/dry/pink. Pt consented for blood transfusion. 00:46 Reassessment: Patient and/or family updated on plan of care and expected duration. Pain ea level reassessed. Patient is alert, oriented x 3, equal unlabored respirations, skin warm/dry/pink. Dr. Payton at bedside updating pt and family on plan of care. 01:00 Reassessment: Patient and/or family updated on plan of care and expected duration. Pain ea level reassessed. Patient is alert, oriented x 3, equal unlabored respirations, skin warm/dry/pink. 02:00 Reassessment: Patient and/or family updated on plan of care and expected duration. Pain ea level reassessed. Patient is alert, oriented x 3, equal unlabored respirations, skin warm/dry/pink. 02:05 Reassessment: Patient and/or family updated on plan of care and expected duration. Pain ea level reassessed. Patient is alert, oriented x 3, equal unlabored respirations, skin warm/dry/pink. Blood transfusion initiated. Pt tolerating well. 03:27 Reassessment: Patient and/or family updated on plan of care and expected duration. Pain ea level reassessed. Pt resting with eyes closed, respirations even and unlabored. No s/s of pain or discomfort noted at this time. 04:24 Reassessment: Patient and/or family updated on plan of care and expected duration. Pain ea level reassessed. Patient is alert, oriented x 3, equal unlabored respirations, skin warm/dry/pink. Infusion complete, pt tolerated well. 04:49 Reassessment: Patient and/or family updated on plan of care and expected duration. Pain ea level reassessed. Pt resting with eyes closed, respirations even and unlabored. Chest expansions even and symmetrical. Repeat Hgb at 0620. 06:33 Reassessment: Patient is alert, oriented x 3, equal unlabored respirations, skin bb warm/dry/pink. pt verbalized understanding of and agrees to plan of care discharge instructions given pt assisted to exit via wheelchair accompanied by family. Vital Signs: 12/23 21:44 BP 122 / 85; Pulse 50; Resp 18; Temp 98.5; Pulse Ox 100% ; Weight 58.97 kg; Height 5 ea ft. 3 in. (160.02 cm); Pain 0/10; 22:30 BP 132 / 86; Pulse 55; Resp 18; Pulse Ox 100% ; ea 23:00 BP 131 / 47; Pulse 55; Resp 18; Pulse Ox 100% on R/A; ea 12/24 00:20 BP 154 / 50; Pulse 58; Resp 18; Pulse Ox 100% ; ea 01:42 BP 177 / 46; Pulse 56; Resp 16; Pulse Ox 100% ; ea 02:35 BP 157 / 47; Pulse 56; Resp 18; Temp 97.8; Pulse Ox 100% on R/A; ea 03:05 BP 141 / 38; Pulse 56; Resp 17; Temp 97.7; Pulse Ox 100% on R/A; ea 04:25 BP 180 / 47; Pulse 55; Resp 15; Temp 97.7; Pulse Ox 100% on R/A; ea 05:30 BP 155 / 40; Pulse 58; Resp 17; Temp 97.8; Pulse Ox 98% on R/A; ea 06:17 BP 175 / 45; Pulse 55; Resp 18; Temp 98.1(O); Pulse Ox 99% ; bb 12/23 21:44 Body Mass Index 23.03 (58.97 kg, 160.02 cm) ea ED Course: 12/23 21:27 Patient arrived in ED. es 21:28 Gurdeep Koehler MD is Private Physician. es 21:38 Varinder Vicente MD is Attending Physician. gs 21:42 Dayanara Benitez RN is Primary Nurse. ea 21:43 Triage completed. ea 21:44 Arm band placed on right wrist. Patient placed in an exam room, on a stretcher, on ea pulse oximetry. 21:44 Patient has correct armband on for positive identification. Bed in low position. Call ea light in reach. Side rails up X2. Adult w/ patient. 22:12 Inserted saline lock: 22 gauge in right antecubital area, using aseptic technique. ea Blood collected. 22:32 Notified ED physician of a critical lab result(s). hemaglobin of 7.3. Dr Vicente notified.bb 12/24 05:19 Gurdeep Koehler MD is Referral Physician. 06:31 No provider procedures requiring assistance completed. IV discontinued, intact, ea bleeding controlled, No redness/swelling at site. Pressure dressing applied. Administered Medications: No medications were administered Outcome: 05:19 Discharge ordered by . gs 06:31 Discharged to home via wheelchair, with family. ea 06:31 Condition: stable 06:31 Discharge instructions given to patient, Instructed on discharge instructions, follow up and referral plans. Demonstrated understanding of instructions, follow-up care. 06:33 Patient left the ED. ea Signatures: Mariajose Vázquez Brenda, RN RN bb Antunez, Elena, RN RN ea Starr, Gregory, MD MD Corrections: (The following items were deleted from the chart) 12/23 23:04 23:00 BP 131 / 47; Pulse 70bpm; Resp 18bpm; Pulse Ox 100% RA; ea ea 23:35 22:30 BP 132 / 86; Pulse 66bpm; Resp 18bpm; Pulse Ox 100%; ea ea 12/24 06:34 06:17 BP 175 / 45; Pulse 55bpm; Resp 18bpm; Pulse Ox 99%; ea bb
[2018-12-24 06:54] VITALS: O2SAT 100
[2018-12-24 07:09] VITALS: TEMP 97.7
[2018-12-24 07:10] VITALS: BP 180/47
== END 2018-12-24 06:33 | disposition home or self-care (01) ==
LOC: ER 21:23
DX: D64.9 Anemia, unspecified (principal); I10 Essential (primary) hypertension; K50.90 Crohn's disease, unspecified, without complications; Z95.1 Presence of aortocoronary bypass graft; Z95.818 Presence of other cardiac implants and grafts
CPT/HCPCS: 85025; 80048; 36415; 86900; 86850; 86901; 85018; 99284; P9016; J7030

== ENCOUNTER 2019-01-28 11:21 | Emergency (ER) | payer OTHER, MEDICARE ==
--- OUTSIDE RECORDS SUMMARY | 2019-01-28 11:24 | XMS REPORT | Clinical Summary ---
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 Chest pain [...] to arrival; NSTEMI (non-ST elevated myocardial infarction) ([facility]); Josselyn, Paroxysmal atrial fibrillation (HCC); MD Fabien Delirium; Cognitive impairment after 01/27/2018 Social History Tobacco Use Types Packs/Day Years [...] Diagnosis VASCULAR DIAGRAM -SCAN 05/01/2018 2:01 PM EDUCATION ADMINISTRATIVE ASSISTANT PERIPHERAL VASCULAR 04/24/2018 11:01 REPORT - SCAN [...] 368 ms QTC Calculation(Bazett) 509 ms R Fromberg 54 degrees T Fromberg 181 degrees Atrial fibrillation with rapid ventricular [...] 350 ms QTC Calculation(Bazett) 464 ms P Fromberg 52 degrees R Fromberg 27 degrees T Fromberg [address] & T [...] (7) Routine 02/14/2018 3:25 PM CDT after 01/27/2018 Results VASCULAR DIAGRAM -SCAN (05/01/2018 2:01 PM EDUCATION ADMINISTRATIVE ASSISTANT)Only the most recent of2 resultswithin the time [...] included. WBC 10.1 3.5 - 10.5 K/L [facility] RBC 3.36 (L) 3.93 - 5.22 M/L [facility] Hemoglobin 10.6 (L) 11.2 - 15.7 GM/DL [facility] Hematocrit 33.4 (L) 34.1 - 44.9 % [facility] MCV 99.4 (H) 79.4 - 94.8 fL [facility] MCH 31.5 25.6 - 32.2 pg [facility] MCHC 31.7 (L) 32.2 - 35.5 GM/DL [facility] RDW 13.2 11.7 - 14.4 % [facility] Platelets 206 150 - 450 K/CU MM [facility] MPV 11.1 9.4 - 12.3 fL [facility] nRBC 0 0 - 0 /100 WBC [facility] % Neutros 78 % [facility] % Lymphs 12 % [facility] % Monos 7 % [facility] % Eos 2 % [facility] % Baso 0 % [facility] # Neutros 7.86 (H) 1.56 - 6.13 K/L [facility] # Lymphs 1.21 1.18 - 3.74 K/L [facility] # Monos 0.73 (H) 0.24 - 0.36 K/L [facility] # Eos 0.19 0.04 - 0.36 K/L [facility] # Baso 0.04 0.01 - 0.08 K/L [facility] Immature Granulocytes-Relative 0 0 - 1 % [facility] Specimen Blood Performing Organization Address City/[facility] Hospital/Zipcode Phone Number [facility] [address] [place] [address] [phone] [facility] Basic Metabolic Panel (02/22/2018 5:58 AM CDT)Only the most recent of9 resultswithin the time period is included. Sodium 134 (L) 136 - 145 meq/L [facility] Potassium 4.5Comment: Specimen slightly 3.5 - 5.1 meq/L [facility] hemolyzed [facility] Chloride 108 (H) 98 - 107 meq/L [facility] CO2 18 (L) 22 - 29 meq/L [facility] BUN 15 7 - 21 mg/dL [facility] Creatinine 1.04Comment: Specimen 0.57 - 1.25 mg/dL [facility] slightly hemolyzed [facility] Glucose 117 (H) 70 - 105 mg/dL [facility] Calcium 8.8 8.4 - 10.2 mg/dL [facility] EGFR 51Comment: ESTIMATED GFR IS mL/min/1.73 sq m [facility] NOT ACCURATE CREATININE [facility] CENTER CLEARANCE IN PREDICTING GLOMERULAR FILTRATION RATE. ESTIMATED GFR IS NOT APPLICABLE FOR DIALYSIS PATIENTS. Specimen Blood Performing Organization Address City/[facility] Hospital/Zipcode Phone Number [place] [id number] [place] [address] [phone] [facility] ECHOCARDIOGRAM REPORT - SCAN (02/20/2018 10:20 AM CDT) Narrative Performed At Magnesium (02/20/2018 7:17 AM CDT)Only the most recent of5 resultswithin the time period is included. Magnesium 2.2 1.6 - 2.6 mg/dL [facility] Specimen Blood Performing Organization Address City/State/Zipcode Phone Number [facility] [address] [place] [address] CENTER Limited 2D Echocardiogram (02/19/2018 4:57 PM CDT) Ejection Fraction [facility] Specimen Narrative Performed At Transthoracic Echocardiography Report (TTE) [facility] Demographics Patient Name CASEY LYONS Date of Study 02/19/2018 JOSÉ MANUEL [id number] GenderFemale Visit Number [id number] Room Number 2427 Number Date of Birth1935Referring Physician Cherie Marin Age82 year(s)Air Conditioning Engineer Musa SanfordPsychiatric denisha Adams, Physician Procedure Type of Study [...] by Christy's method of disk assessment is xepiqj-pf-jqsmjmtfao reduced (40%) . Previous Study Compared to [...] Christy's method of disk as sessment is nmgnco-ze-qxtzwnuoyc reduced (40%) . Left AtriumLA size is [...] 02/19/2018 JOSÉ MANUEL Gender Female Visit Number [id number] Race Room Number 2427 Number Date of 1935 Referring Physician Cherie Marin Age 82 year(s) Air Conditioning Engineer Musa Malone Interpreting Physician SAULO Sultana Procedure [...] by Christy's method of disk assessment is gywzms-fc-lefzzjocxf reduced (40%) . Previous Study Compared to [...] by Christy's method of disk assessment is ydixem-iq-khunmuxrpp reduced (40%) . Left Atrium LA size [...] Performing Organization Address City/State/Zipcode Phone Number [facility] CBC (hemogram only) (02/19/2018 5:17 AM CDT)Only the most recent of2 resultswithin the time period is included. WBC 8.9 3.5 - 10.5 K/L [facility] RBC 3.46 (L) 3.93 - 5.22 M/L [facility] Hemoglobin 11.0 (L) 11.2 - 15.7 GM/DL [facility] Hematocrit 33.3 (L) 34.1 - 44.9 % [facility] MCV 96.2 (H) 79.4 - 94.8 fL [facility] MCH 31.8 25.6 - 32.2 pg [facility] MCHC 33.0 32.2 - 35.5 GM/DL [facility] RDW 13.1 11.7 - 14.4 % [facility] Platelets 218 150 - 450 K/CU MM [facility] MPV 10.9 9.4 - 12.3 fL [facility] nRBC 0 0 - 0 /100 WBC [facility] Specimen Blood Performing Organization Address City/[facility] Hospital/Zipcode Phone Number [address] [address] [phone] [facility] POC-Glucose meter (02/18/2018 1:58 PM CDT) POC-Glucose Meter 283 (H)Comment: TESTED AT 70 - 110 mg/dL [place] [address] Specimen Blood Performing Organization Address City/[facility] Phone Number [address] [address] [place] POC ACTIVATED CLOTTING TIME (02/17/2018 11:36 PM CDT)Only the most recent of4 resultswithin the time period is included. Activated Clotting Time 92Comment: TESTED AT sec [place] [address] Specimen Blood Performing Organization Address City/[facility]/Zipcode Phone Number [address] [address] [place] Troponin I (02/17/2018 10:59 AM CDT)Only the most recent of7 resultswithin the time period is included. Troponin I 3.94 (HH) 0.00 - 0.03 ng/mL [facility] Specimen Blood Narrative Performed At [facility] Troponin I (TnI) levels must be interpreted [...] disease, and persistent tachyarrhythmia. Performing Organization Address City/[facility] Phone Number [address] [address] CENTER aPTT (02/17/2018 10:59 AM CDT)Only the most recent of4 resultswithin the time period is included. PTT 98.3 (H) 22.5 - 36.0 seconds [facility] Specimen Blood Performing Organization Address [facility] Phone Number [address] [address] CENTER Potassium (02/17/2018 10:59 AM CDT) Potassium 4.0 3.5 - 5.1 meq/L [facility] Specimen Blood Performing Organization Address [facility] Phone Number [address] [address] CENTER PT/aPTT (02/17/2018 1:33 AM CDT)Only the most recent of3 resultswithin the time period is included. Protime 15.2 (H) 11.7 - 14.7 seconds [facility] INR 1.2 <=5.9 [facility] PTT 146.1 (H) 22.5 - 36.0 seconds [facility] Specimen Blood Narrative Performed At [facility] RECOMMENDED COUMADIN/WARFARIN INR THERAPY RANGES STANDARD DOSE: 2.0 - 3.0 Includes: PROPHYLAXIS for venous thrombosis, systemic embolization; TREATMENT for venous thrombosis and/or pulmonary embolus. HIGH RISK: Target INR is 2.5-3.5 for patients with mechanical heart valves. Performing Organization Address [facility]/Zipcode Phone Number [address] [address] [phone] [facility] Prothrombin time/INR (02/17/2018 1:33 AM CDT)Only the most recent of3 resultswithin the time period is included. Protime 15.2 (H) 11.7 - 14.7 seconds [facility] INR 1.2 <=5.9 [facility] Specimen Blood Narrative Performed At [facility] RECOMMENDED COUMADIN/WARFARIN INR THERAPY RANGES STANDARD DOSE: 2.0 - 3.0 Includes: PROPHYLAXIS for venous thrombosis, systemic embolization; TREATMENT for venous thrombosis and/or pulmonary embolus. HIGH RISK: Target INR is 2.5-3.5 for patients with mechanical heart valves. Performing Organization Address [facility] Phone Number [address] [address] [phone] [facility] ECHOCARDIOGRAM REPORT - SCAN (02/16/2018 4:00 PM CDT) Narrative Performed At B-type Natriuretic Factor (BNP) (02/16/2018 2:43 PM CDT) BNP 2,849 (H) 0 - 100 pg/mL [facility] Specimen Blood Narrative Performed At Please obtain with next scheduled blood draw- [facility] noNeed for extra poke Performing Organization Address City/[facility] Hospital/Zipcode Phone Number [place] [id number] [place] [address] [phone] CENTER Limited 2D Echocardiogram (02/16/2018 1:23 PM CDT) Ejection Fraction [facility] [employer] [facility] Specimen Narrative Performed At Transthoracic Echocardiography Report (TTE) [facility] Demographics Patient Name ANAYA LYONSJOAN Date of Study 02/16/2018 JOSÉ MANUEL [id number] GenderFemale Visit Number [id number] Room Number 7517 Number Date of Birth1935Referring Physician Can Hernandez Age82 year(s)Air Conditioning Engineer Xochitl Meyer, [facility] AnalystAlex Physician SAULO Nichole Procedure Type [...] 02/16/2018 JOSÉ MANUEL Gender Female Visit Number [id number] Race Room Number 7517 Number Date of 1935 Referring Physician Can Hernandez Age 82 year(s) Air Conditioning Engineer Xochitl Meyer, [facility] Security Control Center Operator Allen Finney Interpreting Physician SAULO Sultana Procedure [...] cm Performing Organization Address City/State/Zipcode Phone Number [facility] MKGIUSEPPE [facility] Carotid doppler bilateral (02/16/2018 1:15 PM CDT) Ejection Fraction [facility] Specimen Impressions Performed At Right Impression [facility] 1. There is 50-69% diameter reduction [...] Performed At LAB - Carotid Duplex Study [facility] Demographics Patient NameSTOVER, COLETTADate of Study 02/16/2018 JOSÉ MANUEL Age 82 Visit [id number] GenderFemale Date of 1935 [facility] Room Number 7191 Physician Air Conditioning Engineer Tomy Yan MD RVSPhysicibryson Ye RVT Procedure [...] 02/16/2018 JOSÉ MANUEL Age 82 Visit Number [id number] Gender Female Accession Number [id number] Date of 1935 Referring Pending Sale To [facility] Room Number 7517 Physician Air Conditioning Engineer Tomy Garcia Interpreting Baldev Yan MD RVS [...] CDT) Specimen Narrative Performed At FINAL REPORT [facility] HISTORY : chest pain. Comparison: Chest x-ray [...] MD Report Verified Date/Time:02/16/2018 11:13:08 Reading Location: [facility] Radiology Reading Room Procedure Note Interface, [...] Report Verified Date/Time: 02/16/2018 11:13:08 Reading Location: [facility] Radiology Reading Room Performing Organization Address City/State/Zipcode Phone Number RIS Platelet count (02/16/2018 8:30 AM CDT) Platelets 230 150 - 450 K/CU MM [facility] Specimen Blood Performing Organization Address City/State/Zipcode Phone Number [place] [id number] [place] [address] [phone] brain without IV contrast portable (02/16/2018 5:45 AM CDT) Specimen Narrative Performed At FINAL REPORT [facility] EXAM: CT head without contrast, portable. CLINICAL [...] MD Report Verified Date/Time:02/16/2018 06:53:18 Reading Location: [address] Transitional Reading Room Procedure Note Interface, [...] Report Verified Date/Time: 02/16/2018 06:53:18 Reading Location: [address] Transitional Reading Room Performing Organization Address City/State/Zipcode Phone Number [employer] ECG 12 lead (02/16/2018 4:16 AM CDT)Only the most recent of3 resultswithin the time period is included. Specimen Narrative Performed At Ventricular Rate 119 BPM GE MUSE Atrial Rate 111 BPM QRS Duration 88 ms Q-T Interval 350 ms QTC Calculation(Bazett) 492 ms R Fromberg 47 degrees T Fromberg 143 degrees Atrial fibrillation with rapid ventricular [...] 350 ms QTC Calculation(Bazett) 492 ms R Fromberg 47 degrees T Fromberg 143 degrees Atrial fibrillation with rapid ventricular response T wave inversion lateral leads consider postischemic changes Prolonged QT Abnormal ECG When compared with ECG of 16-FEB-2018 00:20, No significant changes Confirmed by MD KILLIAN YOCHAI ([id number]) on 02/17/2018 6:37:12 AM Performing Organization Address City/State/Zipcode Phone Number [employer] ECHOCARDIOGRAM REPORT - SCAN (02/15/2018 8:00 PM CDT) Narrative Performed At 2D Echo W/Doppler(CW/PW/Color) (02/15/2018 11:45 AM CDT) Ejection [facility] Specimen Narrative Performed At Transthoracic Echocardiography Report (TTE) [facility] Demographics Patient Name CASEY LYONS Date of Study 02/15/2018 JOSÉ MANUEL [id number] GenderFemale Visit Number [id number] Unknown [id number] Room Number 7517 Number Date of Birth1935Referring Physician Barrett Barreto Age82 year(s)Air Conditioning Engineer Belia Ham, [facility] AnalystIzoPhysician SAULO Kathleen Procedure Type of [...] mid to apical inferolateral appear severely hypokinetic. [place] is forshortened but appears hypokinetic. Previous Study [...] to apical in ferolateral appear severely hypokinetic. [place] is fo rshortened but appears hypokinetic. Se [...] 02/15/2018 JOSÉ MANUEL Gender Female Visit Number [id number] Race Unknown Room Number 7517 Number Date of 1935 Referring Physician Barrett Barreto Age 82 year(s) Air Conditioning Engineer Belia Ham, [facility] Security Control Center Operator Homero Hughes Interpreting Brenda Payne Physician Procedure [...] mid to apical inferolateral appear severely hypokinetic. [place] is forshortened but appears hypokinetic. Previous Study [...] mid to apical inferolateral appear severely hypokinetic. [place] is forshortened but appears hypokinetic. Septal motion [...] LVOT CI: 2.92 l/min/m^2 Performing Organization Address City/[facility] Phone Number [facility] Vitamin B12 and Folate (02/15/2018 4:20 AM CDT) Vitamin B12 1,440 (H) 213 - 816 pg/mL [facility] Folate 7.6 >=7.0 ng/mL [facility] Specimen Blood Performing Organization Address City/State/Zipcode Phone Number [address] [address] [phone] CENTER RPR (02/15/2018 4:20 AM CDT) RPR Nonreactive Nonreactive [facility] Specimen Blood Performing Organization Address City/[facility] Hospital/Zipcode Phone Number [address] [phone] [place] TSH (02/15/2018 4:20 AM CDT) TSH 0.94 0.35 - 4.94 uIU/mL [facility] Specimen Blood Performing Organization Address City/State/[facility] Phone Number [address] [address] [place] Hemoglobin A1c (02/15/2018 4:20 AM CDT) Hemoglobin A1C 5.4 4.3 - 6.1 % [facility] Specimen Blood Performing Organization Address [facility] Cent[facility] Phone Number [address] [address] [phone] [place] Lipid panel (02/15/2018 4:20 AM CDT) Triglycerides 137Comment: Specimen slightly mg/dL [facility] Cholesterol 155Comment: Specimen slightly mg/dL [facility] HDL 59 mg/dL [facility] LDL Calculated 69 mg/dL [facility] Specimen Blood Narrative Performed At [facility] Triglyceride Reference Range: Low Risk <150 [id number] High Risk 200-499 Very High Risk>=500 Cholesterol Reference Range: Low Risk <200 [id number] High Risk>240 HDL Cholesterol Reference Range: Low Risk >=60 High Risk <40 LDL Cholesterol Reference Range: Optimal<100 Near [id number] [id number] Very High >=190 Performing Organization Address City/State/Zipcode Phone Number [address] [address] CENTER after 01/27/2018 Insurance Payer Benefit Plan / Group Subscriber ID Type Phone Address MEDICARE MEDICARE A B xxxxxxxxxx Medicare MCR SUPPLEMENT/INDIVIDUAL AARP/[facility] xxxxxxxxxxx [employer]igap [address] (Home) [place] [address] Advance Directives Patient has advance care planning documents, and code status on file. For more information, please contact:[place] [phone] [place], [place] [phone] Code Status Date Activated Date Inactivated Comments [...]
--- OUTSIDE RECORDS SUMMARY | 2019-01-28 11:25 | XMS REPORT ---
:1935 Author Organization [facility] Address [address] [place] [address] Dr. Mcduffie [address] [place] [id number] Care Team Providers Name Role Phone [place] [...] Comments SODIUM (BEAKER) (test 134 meq/L 136-145 gnww=674) POTASSIUM (BEAKER) (test 4.5 meq/L 3.5-5.1 Specimen slightly hemolyzed agrg=907) CHLORIDE (BEAKER) (test 108 meq/L 98-107 nsbq=735) CO2 (BEAKER) (test qsnm=700) 18 meq/L 22-29 BLOOD UREA NITROGEN (BEAKER) 15 mg/dL 7-21 (test vdlh=042) CREATININE (BEAKER) (test 1.04 mg/dL 0.57-1.25 Specimen slightly hemolyzed iugp=907) GLUCOSE RANDOM (BEAKER) 117 mg/dL 70-105 (test vdnw=788) CALCIUM (BEAKER) (test 8.8 mg/dL 8.4-10.2 vudz=897) EGFR (BEAKER) (test 51 mL/min/1.73 sq m ESTIMATED GFR IS NOT ufhl=3961) ACCURATE CREATININE CLEARANCE IN PREDICTING GLOMERULAR FILTRATION RATE. ESTIMATED GFR IS NOT APPLICABLE FOR DIALYSIS PATIENTS. CBC W/PLT COUNT & AUTO [id number] 06:55:00 Test Item Value Reference Range Comments WHITE BLOOD CELL COUNT (BEAKER) (test pfbe=166) 10.1 K/ L 3.5-10.5 RED BLOOD CELL COUNT (BEAKER) (test leax=096) 3.36 M/ L 3.93-5.22 HEMOGLOBIN (BEAKER) (test uust=890) 10.6 GM/DL 11.2-15.7 HEMATOCRIT (BEAKER) (test dknn=477) 33.4 % 34.1-44.9 MEAN CORPUSCULAR VOLUME (BEAKER) (test kwhz=334) 99.4 fL 79.4-94.8 MEAN CORPUSCULAR HEMOGLOBIN (BEAKER) (test 31.5 pg 25.6-32.2 jeas=394) MEAN CORPUSCULAR HEMOGLOBIN CONC (BEAKER) (test 31.7 GM/DL 32.2-35.5 bvbu=601) RED CELL DISTRIBUTION WIDTH (BEAKER) (test 13.2 % 11.7-14.4 owfb=628) PLATELET COUNT (BEAKER) (test xylk=808) 206 K/CU MM 150-450 MEAN PLATELET VOLUME (BEAKER) (test swmn=745) 11.1 fL 9.4-12.3 NUCLEATED RED BLOOD CELLS (BEAKER) (test 0 /100 WBC 0-0 wral=767) NEUTROPHILS RELATIVE PERCENT (BEAKER) (test 78 % wvkw=794) LYMPHOCYTES RELATIVE PERCENT (BEAKER) (test 12 % fyaw=036) MONOCYTES RELATIVE PERCENT (BEAKER) (test 7 % vemp=627) EOSINOPHILS RELATIVE PERCENT (BEAKER) (test 2 % xnok=690) BASOPHILS RELATIVE PERCENT (BEAKER) (test 0 % roht=544) NEUTROPHILS ABSOLUTE COUNT (BEAKER) (test 7.86 K/ L 1.56-6.13 udsy=942) LYMPHOCYTES ABSOLUTE COUNT (BEAKER) (test 1.21 K/ L 1.18-3.74 lqfn=966) MONOCYTES ABSOLUTE COUNT (BEAKER) (test 0.73 K/ L 0.24-0.36 xymb=392) EOSINOPHILS ABSOLUTE COUNT (BEAKER) (test 0.19 K/ L 0.04-0.36 aivt=742) BASOPHILS ABSOLUTE COUNT (BEAKER) (test 0.04 K/ L 0.01-0.08 otso=385) IMMATURE GRANULOCYTES-RELATIVE PERCENT (BEAKER) 0 % 0-1 (test ujgy=8403) BASIC METABOLIC [id number] 05:32:00 Test Item Value Reference Range Comments SODIUM (BEAKER) (test 135 meq/L 136-145 byxw=696) POTASSIUM (BEAKER) (test 3.9 meq/L 3.5-5.1 ckpb=121) CHLORIDE (BEAKER) (test 108 meq/L 98-107 haml=812) CO2 (BEAKER) (test 20 meq/L 22-29 pdyf=521) BLOOD UREA NITROGEN 16 mg/dL 7-21 (BEAKER) (test ufeq=367) CREATININE (BEAKER) (test 1.03 mg/dL 0.57-1.25 qqrc=269) GLUCOSE RANDOM (BEAKER) 102 mg/dL 70-105 (test actf=870) CALCIUM (BEAKER) (test 8.7 mg/dL 8.4-10.2 dayh=883) EGFR (BEAKER) (test 52 mL/min/1.73 sq m ESTIMATED GFR IS NOT jzcc=4879) ACCURATE CREATININE CLEARANCE IN PREDICTING GLOMERULAR FILTRATION RATE. ESTIMATED GFR IS NOT APPLICABLE FOR DIALYSIS PATIENTS. CBC W/PLT COUNT & AUTO [id number] 05:11:00 Test Item Value Reference Range Comments WHITE BLOOD CELL COUNT (BEAKER) (test uwfg=516) 6.0 K/ L 3.5-10.5 RED BLOOD CELL COUNT (BEAKER) (test zzsx=911) 3.26 M/ L 3.93-5.22 HEMOGLOBIN (BEAKER) (test vmiz=254) 10.0 GM/DL 11.2-15.7 HEMATOCRIT (BEAKER) (test byyu=413) 31.7 % 34.1-44.9 MEAN CORPUSCULAR VOLUME (BEAKER) (test gxvu=385) 97.2 fL 79.4-94.8 MEAN CORPUSCULAR HEMOGLOBIN (BEAKER) (test 30.7 pg 25.6-32.2 hdwo=812) MEAN CORPUSCULAR HEMOGLOBIN CONC (BEAKER) (test 31.5 GM/DL 32.2-35.5 ulny=896) RED CELL DISTRIBUTION WIDTH (BEAKER) (test 13.2 % 11.7-14.4 hobd=917) PLATELET COUNT (BEAKER) (test lhcn=153) 199 K/CU MM 150-450 MEAN PLATELET VOLUME (BEAKER) (test mmpo=453) 10.7 fL 9.4-12.3 NUCLEATED RED BLOOD CELLS (BEAKER) (test 0 /100 WBC 0-0 ihcx=011) NEUTROPHILS RELATIVE PERCENT (BEAKER) (test 60 % hmyh=945) LYMPHOCYTES RELATIVE PERCENT (BEAKER) (test 23 % cxtx=323) MONOCYTES RELATIVE PERCENT (BEAKER) (test 13 % qyis=239) EOSINOPHILS RELATIVE PERCENT (BEAKER) (test 3 % cfws=617) BASOPHILS RELATIVE PERCENT (BEAKER) (test 0 % llay=483) NEUTROPHILS ABSOLUTE COUNT (BEAKER) (test 3.59 K/ L 1.56-6.13 kfft=273) LYMPHOCYTES ABSOLUTE COUNT (BEAKER) (test 1.36 K/ L 1.18-3.74 fxtg=141) MONOCYTES ABSOLUTE COUNT (BEAKER) (test 0.77 K/ L 0.24-0.36 bemq=233) EOSINOPHILS ABSOLUTE COUNT (BEAKER) (test 0.20 K/ L 0.04-0.36 bnue=788) BASOPHILS ABSOLUTE COUNT (BEAKER) (test 0.02 K/ L 0.01-0.08 sttd=428) IMMATURE GRANULOCYTES-RELATIVE PERCENT (BEAKER) 0 % 0-1 (test smnh=2380) [id number] 07:46:00 Test Item Value Reference Range Comments MAGNESIUM (BEAKER) (test sxgv=922) 2.2 mg/dL 1.6-2.6 BASIC METABOLIC [id number] 07:46:00 Test Item Value Reference Range Comments SODIUM (BEAKER) (test 135 meq/L 136-145 bxhz=918) POTASSIUM (BEAKER) (test 3.6 meq/L 3.5-5.1 oovh=774) CHLORIDE (BEAKER) (test 106 meq/L 98-107 sxkn=195) CO2 (BEAKER) (test 21 meq/L 22-29 alye=756) BLOOD UREA NITROGEN 21 mg/dL 7-21 (BEAKER) (test uidx=496) CREATININE (BEAKER) (test 1.11 mg/dL 0.57-1.25 qrtp=186) GLUCOSE RANDOM (BEAKER) 97 mg/dL 70-105 (test eshe=589) CALCIUM (BEAKER) (test 8.8 mg/dL 8.4-10.2 lqxu=768) EGFR (BEAKER) (test 47 mL/min/1.73 sq m ESTIMATED GFR IS NOT icgy=3069) ACCURATE CREATININE CLEARANCE IN PREDICTING GLOMERULAR FILTRATION RATE. ESTIMATED GFR IS NOT APPLICABLE FOR DIALYSIS PATIENTS. CBC W/PLT COUNT & AUTO [id number] 07:31:00 Test Item Value Reference Range Comments WHITE BLOOD CELL COUNT (BEAKER) (test bhyb=884) 7.1 K/ L 3.5-10.5 RED BLOOD CELL COUNT (BEAKER) (test opcl=945) 3.41 M/ L 3.93-5.22 HEMOGLOBIN (BEAKER) (test bscq=201) 10.7 GM/DL 11.2-15.7 HEMATOCRIT (BEAKER) (test pnoe=946) 32.7 % 34.1-44.9 MEAN CORPUSCULAR VOLUME (BEAKER) (test kvqs=420) 95.9 fL 79.4-94.8 MEAN CORPUSCULAR HEMOGLOBIN (BEAKER) (test 31.4 pg 25.6-32.2 vkfk=280) MEAN CORPUSCULAR HEMOGLOBIN CONC (BEAKER) (test 32.7 GM/DL 32.2-35.5 njrq=112) RED CELL DISTRIBUTION WIDTH (BEAKER) (test 13.2 % 11.7-14.4 bzqi=058) PLATELET COUNT (BEAKER) (test hjjl=566) 216 K/CU MM 150-450 MEAN PLATELET VOLUME (BEAKER) (test ducg=627) 10.5 fL 9.4-12.3 NUCLEATED RED BLOOD CELLS (BEAKER) (test 0 /100 WBC 0-0 fzcb=036) NEUTROPHILS RELATIVE PERCENT (BEAKER) (test 66 % upmk=565) LYMPHOCYTES RELATIVE PERCENT (BEAKER) (test 20 % zlio=751) MONOCYTES RELATIVE PERCENT (BEAKER) (test 11 % yutu=418) EOSINOPHILS RELATIVE PERCENT (BEAKER) (test 3 % ccvq=805) BASOPHILS RELATIVE PERCENT (BEAKER) (test 0 % tdvd=204) NEUTROPHILS ABSOLUTE COUNT (BEAKER) (test 4.69 K/ L 1.56-6.13 mbhe=950) LYMPHOCYTES ABSOLUTE COUNT (BEAKER) (test 1.44 K/ L 1.18-3.74 mqbb=507) MONOCYTES ABSOLUTE COUNT (BEAKER) (test 0.78 K/ L 0.24-0.36 dlyu=924) EOSINOPHILS ABSOLUTE COUNT (BEAKER) (test 0.18 K/ L 0.04-0.36 lysx=368) BASOPHILS ABSOLUTE COUNT (BEAKER) (test 0.02 K/ L 0.01-0.08 qvur=872) IMMATURE GRANULOCYTES-RELATIVE PERCENT (BEAKER) 0 % 0-1 (test dlia=8010) BASIC METABOLIC [id number] 14:48:00 Test Item Value Reference Range Comments SODIUM (BEAKER) (test 133 meq/L 136-145 ppyp=065) POTASSIUM (BEAKER) (test 4.3 meq/L 3.5-5.1 hxdo=061) CHLORIDE (BEAKER) (test 103 meq/L 98-107 fmqa=862) CO2 (BEAKER) (test 21 meq/L 22-29 ivrx=859) BLOOD UREA NITROGEN 31 mg/dL 7-21 (BEAKER) (test uwqd=372) CREATININE (BEAKER) (test 1.25 mg/dL 0.57-1.25 mfry=791) GLUCOSE RANDOM (BEAKER) 105 mg/dL 70-105 (test ntwj=028) CALCIUM (BEAKER) (test 9.0 mg/dL 8.4-10.2 oebx=679) EGFR (BEAKER) (test 41 mL/min/1.73 sq m ESTIMATED GFR IS NOT qskg=4362) ACCURATE CREATININE CLEARANCE IN PREDICTING GLOMERULAR FILTRATION RATE. ESTIMATED GFR IS NOT APPLICABLE FOR DIALYSIS PATIENTS. [id number] 06:03:00 Test Item Value Reference Range Comments MAGNESIUM (BEAKER) (test hyay=115) 2.3 mg/dL 1.6-2.6 CBC (HEMOGRAM ONLY)2018-02-19 05:46:00 Test Item Value Reference Range Comments WHITE BLOOD CELL COUNT (BEAKER) (test mrmj=904) 8.9 K/ L 3.5-10.5 RED BLOOD CELL COUNT (BEAKER) (test dtvj=475) 3.46 M/ L 3.93-5.22 HEMOGLOBIN (BEAKER) (test udsf=655) 11.0 GM/DL 11.2-15.7 HEMATOCRIT (BEAKER) (test hvpd=946) 33.3 % 34.1-44.9 MEAN CORPUSCULAR VOLUME (BEAKER) (test mgfk=845) 96.2 fL 79.4-94.8 MEAN CORPUSCULAR HEMOGLOBIN (BEAKER) (test 31.8 pg 25.6-32.2 dtos=675) MEAN CORPUSCULAR HEMOGLOBIN CONC (BEAKER) (test 33.0 GM/DL 32.2-35.5 ishm=732) RED CELL DISTRIBUTION WIDTH (BEAKER) (test 13.1 % 11.7-14.4 zrht=508) PLATELET COUNT (BEAKER) (test sqpi=135) 218 K/CU MM 150-450 MEAN PLATELET VOLUME (BEAKER) (test tovr=750) 10.9 fL 9.4-12.3 NUCLEATED RED BLOOD CELLS (BEAKER) (test 0 /100 WBC 0-0 qvha=548) POCT-GLUCOSE [id number] 14:00:00 Test Item Value Reference Range Comments POC-GLUCOSE METER (BEAKER) 283 mg/dL 70-110 TESTED AT [facility] [address] [facility] (test efmq=6933) [facility] [address] [id number] 05:56:00 Test Item Value Reference Range Comments MAGNESIUM (BEAKER) (test eitk=388) 2.8 mg/dL 1.6-2.6 BASIC METABOLIC [id number] 05:56:00 Test Item Value Reference Range Comments SODIUM (BEAKER) (test 132 meq/L 136-145 ybox=137) POTASSIUM (BEAKER) (test 4.0 meq/L 3.5-5.1 ttjz=929) CHLORIDE (BEAKER) (test 104 meq/L 98-107 cxiv=823) CO2 (BEAKER) (test 19 meq/L 22-29 dhwj=906) BLOOD UREA NITROGEN 31 mg/dL 7-21 (BEAKER) (test zfqz=594) CREATININE (BEAKER) (test 1.28 mg/dL 0.57-1.25 xend=801) GLUCOSE RANDOM (BEAKER) 69 mg/dL 70-105 (test ssit=516) CALCIUM (BEAKER) (test 8.8 mg/dL 8.4-10.2 negt=718) EGFR (BEAKER) (test 40 mL/min/1.73 sq m ESTIMATED GFR IS NOT hdme=4573) ACCURATE CREATININE CLEARANCE IN PREDICTING GLOMERULAR FILTRATION RATE. ESTIMATED GFR IS NOT APPLICABLE FOR DIALYSIS PATIENTS. CBC (HEMOGRAM ONLY)2018-02-18 05:30:00 Test Item Value Reference Range Comments WHITE BLOOD CELL COUNT (BEAKER) (test iwve=094) 8.4 K/ L 3.5-10.5 RED BLOOD CELL COUNT (BEAKER) (test qczb=731) 3.53 M/ L 3.93-5.22 HEMOGLOBIN (BEAKER) (test surx=128) 11.1 GM/DL 11.2-15.7 HEMATOCRIT (BEAKER) (test hqct=593) 34.9 % 34.1-44.9 MEAN CORPUSCULAR VOLUME (BEAKER) (test kncy=267) 98.9 fL 79.4-94.8 MEAN CORPUSCULAR HEMOGLOBIN (BEAKER) (test 31.4 pg 25.6-32.2 bljc=328) MEAN CORPUSCULAR HEMOGLOBIN CONC (BEAKER) (test 31.8 GM/DL 32.2-35.5 bosj=940) RED CELL DISTRIBUTION WIDTH (BEAKER) (test 13.2 % 11.7-14.4 zorc=913) PLATELET COUNT (BEAKER) (test tzue=773) 205 K/CU MM 150-450 MEAN PLATELET VOLUME (BEAKER) (test ewee=677) 10.7 fL 9.4-12.3 NUCLEATED RED BLOOD CELLS (BEAKER) (test 0 /100 WBC 0-0 mvhm=546) [id number] 23:41:00 Test Item Value Reference Range Comments ACTIVATED CLOTTING TIME (BEAKER) 92 sec TESTED AT [address] (test yykv=288) [place] [address] [id number] 21:56:00 Test Item Value Reference Range Comments ACTIVATED CLOTTING TIME 153 sec TESTED AT [address] (BEAKER) (test ebjb=319) [place] [address] [id number] 19:28:00 Test Item Value Reference Range Comments ACTIVATED CLOTTING TIME 197 sec TESTED AT [address] (BEAKER) (test nfnj=993) [place] [address] [id number] 17:41:00 Test Item Value Reference Range Comments ACTIVATED CLOTTING TIME 246 sec TESTED AT [address] (BEAKER) (test kzdw=465) [place] [address] [id number] 12:36:00 Test Item Value Reference Range Comments POTASSIUM (BEAKER) (test apzf=702) 4.0 meq/L 3.5-5.1 TROPONIN [id number] 12:03:00 Test Item Value Reference Range Comments TROPONIN I (BEAKER) (test ehcq=840) 3.94 ng/mL 0.00-0.03 Troponin I (TnI) levels [...] failure, acidosis, acute neurological disease, and persistent tachyarrhythmia.[id number] 11:44:00 Test Item Value Reference Range Comments MAGNESIUM (BEAKER) (test term=877) 1.9 mg/dL 1.6-2.6 [id number] 11:37:00 Test Item Value Reference Range Comments PARTIAL THROMBOPLASTIN TIME (BEAKER) (test 98.3 seconds 22.5-36.0 erav=101) [id number] 04:04:00 Test Item Value Reference Range Comments PARTIAL THROMBOPLASTIN TIME (BEAKER) (test 92.5 seconds 22.5-36.0 eevm=497) TROPONIN [id number] 02:06:00 Test Item Value Reference Range Comments TROPONIN I (BEAKER) (test dbkp=512) 7.11 ng/mL 0.00-0.03 Troponin I (TnI) levels [...] acute neurological disease, and persistent tachyarrhythmia.BASIC METABOLIC [id number] 01:56:00 Test Item Value Reference Range Comments SODIUM (BEAKER) (test 135 meq/L 136-145 yivm=263) POTASSIUM (BEAKER) (test 3.7 meq/L 3.5-5.1 lqyw=985) CHLORIDE (BEAKER) (test 102 meq/L 98-107 eofy=695) CO2 (BEAKER) (test 22 meq/L 22-29 rdgo=404) BLOOD UREA NITROGEN 17 mg/dL 7-21 (BEAKER) (test ewpk=847) CREATININE (BEAKER) (test 1.49 mg/dL 0.57-1.25 zygf=663) GLUCOSE RANDOM (BEAKER) 90 mg/dL 70-105 (test oxdd=834) CALCIUM (BEAKER) (test 9.2 mg/dL 8.4-10.2 qxny=698) EGFR (BEAKER) (test 34 mL/min/1.73 sq m ESTIMATED GFR IS NOT cwlo=7584) ACCURATE CREATININE CLEARANCE IN PREDICTING GLOMERULAR FILTRATION RATE. ESTIMATED GFR IS NOT APPLICABLE FOR DIALYSIS PATIENTS. [id number] 01:53:00 Test Item Value Reference Range Comments PROTIME (BEAKER) (test fzmg=027) 15.2 seconds 11.7-14.7 INR (BEAKER) (test wucv=536) 1.2 <=5.9 PARTIAL THROMBOPLASTIN TIME (BEAKER) (test 146.1 seconds 22.5-36.0 ybdr=471) RECOMMENDED COUMADIN/WARFARIN INR THERAPY RANGESSTANDARD DOSE: 2.0 - 3.0 Includes: PROPHYLAXIS forvenous thrombosis, systemic embolization; TREATMENT for venous thrombosis and/or pulmonary embolus.HIGH RISK: Target INR is 2.5-3.5 for patients with mechanical heart valves.PROTHROMBIN [id number] 01:50: 00 Test Item Value Reference Range Comments PROTIME (BEAKER) (test rpkw=356) 15.2 seconds 11.7-14.7 INR (BEAKER) (test xrew=901) 1.2 <=5.9 RECOMMENDED COUMADIN/WARFARIN INR THERAPY RANGESSTANDARD DOSE: 2.0 - 3.0 Includes: PROPHYLAXIS forvenous thrombosis, systemic embolization; TREATMENT for venous thrombosis and/or pulmonary embolus.HIGH RISK: Target INR is 2.5-3.5 for patients with mechanical heart valves.CBC W/PLT COUNT & AUTO [id number] 01:43:00 Test Item Value Reference Range Comments WHITE BLOOD CELL COUNT (BEAKER) (test gtta=195) 7.1 K/ L 3.5-10.5 RED BLOOD CELL COUNT (BEAKER) (test gnsw=601) 3.45 M/ L 3.93-5.22 HEMOGLOBIN (BEAKER) (test pkev=248) 10.8 GM/DL 11.2-15.7 HEMATOCRIT (BEAKER) (test ffwf=990) 33.2 % 34.1-44.9 MEAN CORPUSCULAR VOLUME (BEAKER) (test azbm=140) 96.2 fL 79.4-94.8 MEAN CORPUSCULAR HEMOGLOBIN (BEAKER) (test 31.3 pg 25.6-32.2 ymeu=040) MEAN CORPUSCULAR HEMOGLOBIN CONC (BEAKER) (test 32.5 GM/DL 32.2-35.5 wjzk=604) RED CELL DISTRIBUTION WIDTH (BEAKER) (test 13.3 % 11.7-14.4 dabb=599) PLATELET COUNT (BEAKER) (test mmor=759) 190 K/CU MM 150-450 MEAN PLATELET VOLUME (BEAKER) (test cgbf=476) 10.5 fL 9.4-12.3 NUCLEATED RED BLOOD CELLS (BEAKER) (test 0 /100 WBC 0-0 nkax=172) NEUTROPHILS RELATIVE PERCENT (BEAKER) (test 76 % pgic=003) LYMPHOCYTES RELATIVE PERCENT (BEAKER) (test 12 % xhog=745) MONOCYTES RELATIVE PERCENT (BEAKER) (test 10 % pdqn=032) EOSINOPHILS RELATIVE PERCENT (BEAKER) (test 1 % sgdz=511) BASOPHILS RELATIVE PERCENT (BEAKER) (test 0 % laaa=041) NEUTROPHILS ABSOLUTE COUNT (BEAKER) (test 5.45 K/ L 1.56-6.13 zdxd=212) LYMPHOCYTES ABSOLUTE COUNT (BEAKER) (test 0.85 K/ L 1.18-3.74 dqfy=598) MONOCYTES ABSOLUTE COUNT (BEAKER) (test 0.70 K/ L 0.24-0.36 lcrn=901) EOSINOPHILS ABSOLUTE COUNT (BEAKER) (test 0.10 K/ L 0.04-0.36 drbc=338) BASOPHILS ABSOLUTE COUNT (BEAKER) (test 0.02 K/ L 0.01-0.08 gnjf=987) IMMATURE GRANULOCYTES-RELATIVE PERCENT (BEAKER) 0 % 0-1 (test rjif=2195) [id number] 23:09:00 Test Item Value Reference Range Comments RPR SCREEN (BEAKER) (test qgzf=862) Nonreactive Nonreactive TROPONIN [id number] 21:20:00 Test Item Value Reference Range Comments TROPONIN I (BEAKER) (test kgzo=897) 7.60 ng/mL 0.00-0.03 Troponin I (TnI) levels [...] failure, acidosis, acute neurological disease, and persistent tachyarrhythmia.[id number] 18:57:00 Test Item Value Reference Range Comments PARTIAL THROMBOPLASTIN TIME (LISANDROAKER) (test 58.1 seconds 22.5-36.0 zfoz=487) TROPONIN [id number] 15:25:00 Test Item Value Reference Range Comments TROPONIN I (LISANDROAKER) (test zozf=834) 6.89 ng/mL 0.00-0.03 Troponin I (TnI) levels [...] NATRIURETIC PEPTIDE (LISANDROAKER) (test 2849 pg/mL 0-100 acvh=653) Please obtain with next scheduled blood draw- no Need for extra pokeRAD, CHEST , 1 VIEW, NON [id number] 11:13:00Reason for exam:->chest painFINAL REPORT HISTORY : [...] Verified Date/ Time: 02/16/2018 11:13:08 Reading Location: [facility] Radiology Reading Room TROPONIN [id number] 09:59:00 Test Item Value Reference Range Comments TROPONIN I (BEAKER) (test hdft=774) 6.35 ng/mL 0.00-0.03 Troponin I (TnI) levels [...] failure, acidosis, acute neurological disease, and persistent tachyarrhythmia.[id number] 09:06:00 Test Item Value Reference Range Comments PARTIAL THROMBOPLASTIN TIME (BEAKER) (test 26.7 seconds 22.5-36.0 ryvi=365) Prior to initiating heparinPLATELET [id number] 08:48:00 Test Item Value Reference Range Comments PLATELET COUNT (LISANDROAKER) (test zsac=365) 230 K/CU MM 150-450 CT BRAIN WITHOUT IV CONTRAST - [id number] 06:53:00Reason for exam:-> post-tpaFINAL REPORT EXAM: CT [...] Verified Date/ Time: 02/16/2018 06:53:18 Reading Location: [facility] [id number] Transitional Reading Room AELMARIMAR [id number] 03:14:00 Test Item Value Reference Range Comments TROPONIN I (BEAKER) (test idhz=273) 3.40 ng/mL 0.00-0.03 Troponin I (TnI) levels [...] acute neurological disease, and persistent tachyarrhythmia.BASIC METABOLIC [id number] 02:53:00 Test Item Value Reference Range Comments SODIUM (BEAKER) (test 137 meq/L 136-145 cllh=038) POTASSIUM (BEAKER) (test 4.4 meq/L 3.5-5.1 zqbt=610) CHLORIDE (BEAKER) (test 106 meq/L 98-107 kmbe=463) CO2 (BEAKER) (test 22 meq/L 22-29 nffn=957) BLOOD UREA NITROGEN 12 mg/dL 7-21 (BEAKER) (test rbdu=421) CREATININE (BEAKER) (test 1.06 mg/dL 0.57-1.25 cyao=245) GLUCOSE RANDOM (BEAKER) 109 mg/dL 70-105 (test joou=198) CALCIUM (BEAKER) (test 9.8 mg/dL 8.4-10.2 mjrc=604) EGFR (BEAKER) (test 50 mL/min/1.73 sq m ESTIMATED GFR IS NOT hxqr=9837) ACCURATE CREATININE CLEARANCE IN PREDICTING GLOMERULAR FILTRATION RATE. ESTIMATED GFR IS NOT APPLICABLE FOR DIALYSIS PATIENTS. PT/[id number] 02:48:00 Test Item Value Reference Range Comments PROTIME (BEAKER) (test pebj=177) 14.5 seconds 11.7-14.7 INR (BEAKER) (test vjew=410) 1.1 <=5.9 PARTIAL THROMBOPLASTIN TIME (BEAKER) (test 25.7 seconds 22.5-36.0 bepz=267) RECOMMENDED COUMADIN/WARFARIN INR THERAPY RANGESSTANDARD DOSE: 2.0 - 3.0 Includes: PROPHYLAXIS forvenous thrombosis, systemic embolization; TREATMENT for venous thrombosis and/or pulmonary embolus.HIGH RISK: Target INR is 2.5-3.5 for patients with mechanical heart valves.PROTHROMBIN [id number] 02:47: 00 Test Item Value Reference Range Comments PROTIME (BEAKER) (test vrgw=161) 14.5 seconds 11.7-14.7 INR (BEAKER) (test ofms=314) 1.1 <=5.9 RECOMMENDED COUMADIN/WARFARIN INR THERAPY RANGESSTANDARD DOSE: 2.0 - 3.0 Includes: PROPHYLAXIS forvenous thrombosis, systemic embolization; TREATMENT for venous thrombosis and/or pulmonary embolus.HIGH RISK: Target INR is 2.5-3.5 for patients with mechanical heart valves.CBC W/PLT COUNT & AUTO [id number] 02:29:00 Test Item Value Reference Range Comments WHITE BLOOD CELL COUNT (BEAKER) (test pbdn=160) 8.8 K/ L 3.5-10.5 RED BLOOD CELL COUNT (BEAKER) (test ajfd=675) 3.71 M/ L 3.93-5.22 HEMOGLOBIN (BEAKER) (test amrx=796) 11.9 GM/DL 11.2-15.7 HEMATOCRIT (BEAKER) (test rjyc=887) 35.8 % 34.1-44.9 MEAN CORPUSCULAR VOLUME (BEAKER) (test hqvh=364) 96.5 fL 79.4-94.8 MEAN CORPUSCULAR HEMOGLOBIN (BEAKER) (test 32.1 pg 25.6-32.2 glrr=939) MEAN CORPUSCULAR HEMOGLOBIN CONC (BEAKER) (test 33.2 GM/DL 32.2-35.5 oidx=858) RED CELL DISTRIBUTION WIDTH (BEAKER) (test 13.2 % 11.7-14.4 xsdz=234) PLATELET COUNT (BEAKER) (test dhnw=620) 205 K/CU MM 150-450 MEAN PLATELET VOLUME (BEAKER) (test idrx=043) 10.2 fL 9.4-12.3 NUCLEATED RED BLOOD CELLS (BEAKER) (test 0 /100 WBC 0-0 tarc=445) NEUTROPHILS RELATIVE PERCENT (BEAKER) (test 83 % fhvs=869) LYMPHOCYTES RELATIVE PERCENT (BEAKER) (test 8 % bfzm=013) MONOCYTES RELATIVE PERCENT (BEAKER) (test 9 % ehwd=459) EOSINOPHILS RELATIVE PERCENT (BEAKER) (test 0 % kkqh=624) BASOPHILS RELATIVE PERCENT (BEAKER) (test 0 % rryk=381) NEUTROPHILS ABSOLUTE COUNT (BEAKER) (test 7.27 K/ L 1.56-6.13 sizl=172) LYMPHOCYTES ABSOLUTE COUNT (BEAKER) (test 0.68 K/ L 1.18-3.74 zdmg=374) MONOCYTES ABSOLUTE COUNT (BEAKER) (test 0.77 K/ L 0.24-0.36 auvo=639) EOSINOPHILS ABSOLUTE COUNT (BEAKER) (test 0.01 K/ L 0.04-0.36 gdms=939) BASOPHILS ABSOLUTE COUNT (BEAKER) (test 0.02 K/ L 0.01-0.08 rahr=072) IMMATURE GRANULOCYTES-RELATIVE PERCENT (BEAKER) 1 % 0-1 (test xzpy=2187) TROPONIN [id number] 17:32:00 Test Item Value Reference Range Comments TROPONIN I (BEAKER) (test mxmx=109) 0.13 ng/mL 0.00-0.03 Troponin I (TnI) levels [...] acidosis, acute neurological disease, and persistent tachyarrhythmia.HEMOGLOBIN [id number] 11:13:00 Test Item Value Reference Range Comments HEMOGLOBIN A1C (BEAKER) (test ikhw=251) 5.4 % 4.3-6.1 [id number] 05:41:00 Test Item Value Reference Range Comments THYROID STIMULATING HORMONE (BEAKER) (test 0.94 uIU/mL 0.35-4.94 zsty=512) VITAMIN B12 AND [id number] 05:41:00 Test Item Value Reference Range Comments VITAMIN B12 (BEAKER) (test poak=479) 1440 pg/mL 213-816 FOLATE (BEAKER) (test zxyb=140) 7.6 ng/mL >=7.0 [id number] 05:07:00 Test Item Value Reference Range Comments MAGNESIUM (BEAKER) (test 1.7 mg/dL 1.6-2.6 Specimen slightly hemolyzed yykr=658) BASIC METABOLIC [id number] 05:07:00 Test Item Value Reference Range Comments SODIUM (BEAKER) (test 133 meq/L 136-145 etwj=612) POTASSIUM (BEAKER) (test 4.2 meq/L 3.5-5.1 Specimen slightly yost=661) hemolyzed CHLORIDE (BEAKER) (test 104 meq/L 98-107 bbmf=106) CO2 (BEAKER) (test 21 meq/L 22-29 fdfd=181) BLOOD UREA NITROGEN 12 mg/dL 7-21 (BEAKER) (test stbb=212) CREATININE (BEAKER) (test 0.95 mg/dL 0.57-1.25 Specimen slightly uajg=021) hemolyzed GLUCOSE RANDOM (BEAKER) 98 mg/dL 70-105 (test vmwf=986) CALCIUM (BEAKER) (test 9.3 mg/dL 8.4-10.2 sjbf=614) EGFR (BEAKER) (test 57 mL/min/1.73 sq m ESTIMATED GFR IS NOT sedy=4341) ACCURATE CREATININE CLEARANCE IN PREDICTING GLOMERULAR FILTRATION RATE. ESTIMATED GFR IS NOT APPLICABLE FOR DIALYSIS PATIENTS. LIPID [id number] 05:07:00 Test Item Value Reference Range Comments TRIGLYCERIDES (BEAKER) (test 137 mg/dL Specimen slightly hemolyzed rrmy=623) CHOLESTEROL (BEAKER) (test 155 mg/dL Specimen slightly hemolyzed aeez=126) HDL CHOLESTEROL (BEAKER) (test 59 mg/dL kzdi=298) LDL CHOLESTEROL CALCULATED 69 mg/dL (BEAKER) (test rvbl=897) Triglyceride Reference Range: Low Risk <150 Borderline 150- 199 High Risk 200-499 Very High Risk >=500Cholesterol Reference Range: Low Risk <200 Borderline 200-239 High Risk > 240HDL Cholesterol Reference Range: Low Risk >=60 High Risk <40LDL Cholesterol Reference Range: Optimal <100 Near Optimal 100-129 Borderline 130-159 High 160-189 Very High >=190PT/[id number] 04:54:00 Test Item Value Reference Range Comments PROTIME (BEAKER) (test btdi=575) 14.0 seconds 11.7-14.7 INR (BEAKER) (test losc=893) 1.1 <=5.9 PARTIAL THROMBOPLASTIN TIME (BEAKER) (test 27.3 seconds 22.5-36.0 mxfe=850) RECOMMENDED COUMADIN/WARFARIN INR THERAPY RANGESSTANDARD DOSE: 2.0 - 3.0 Includes: PROPHYLAXIS forvenous thrombosis, systemic embolization; TREATMENT for venous thrombosis and/or pulmonary embolus.HIGH RISK: Target INR is 2.5-3.5 for patients with mechanical heart valves.PROTHROMBIN [id number] 04:53: 00 Test Item Value Reference Range Comments PROTIME (BEAKER) (test azse=487) 14.0 seconds 11.7-14.7 INR (BEAKER) (test uglt=163) 1.1 <=5.9 RECOMMENDED COUMADIN/WARFARIN INR THERAPY RANGESSTANDARD DOSE: 2.0 - 3.0 Includes: PROPHYLAXIS forvenous thrombosis, systemic embolization; TREATMENT for venous thrombosis and/or pulmonary embolus.HIGH RISK: Target INR is 2.5-3.5 for patients with mechanical heart valves.CBC W/PLT COUNT & AUTO [id number] 04:44:00 Test Item Value Reference Range Comments WHITE BLOOD CELL COUNT (BEAKER) (test vtva=163) 5.8 K/ L 3.5-10.5 RED BLOOD CELL COUNT (BEAKER) (test vxkd=594) 3.54 M/ L 3.93-5.22 HEMOGLOBIN (BEAKER) (test dzyh=029) 11.0 GM/DL 11.2-15.7 HEMATOCRIT (BEAKER) (test rbid=086) 33.7 % 34.1-44.9 MEAN CORPUSCULAR VOLUME (BEAKER) (test cymt=123) 95.2 fL 79.4-94.8 MEAN CORPUSCULAR HEMOGLOBIN (BEAKER) (test 31.1 pg 25.6-32.2 jxpo=334) MEAN CORPUSCULAR HEMOGLOBIN CONC (BEAKER) (test 32.6 GM/DL 32.2-35.5 fugy=695) RED CELL DISTRIBUTION WIDTH (BEAKER) (test 13.0 % 11.7-14.4 vghs=931) PLATELET COUNT (BEAKER) (test yaey=127) 202 K/CU MM 150-450 MEAN PLATELET VOLUME (BEAKER) (test mxtv=181) 10.7 fL 9.4-12.3 NUCLEATED RED BLOOD CELLS (BEAKER) (test 0 /100 WBC 0-0 mdqx=936) NEUTROPHILS RELATIVE PERCENT (BEAKER) (test 71 % oinj=301) LYMPHOCYTES RELATIVE PERCENT (BEAKER) (test 14 % amsa=231) MONOCYTES RELATIVE PERCENT (BEAKER) (test 13 % kuur=175) EOSINOPHILS RELATIVE PERCENT (BEAKER) (test 2 % nrwm=815) BASOPHILS RELATIVE PERCENT (BEAKER) (test 0 % fhex=102) NEUTROPHILS ABSOLUTE COUNT (BEAKER) (test 4.08 K/ L 1.56-6.13 urpg=374) LYMPHOCYTES ABSOLUTE COUNT (BEAKER) (test 0.80 K/ L 1.18-3.74 ipza=033) MONOCYTES ABSOLUTE COUNT (BEAKER) (test 0.76 K/ L 0.24-0.36 npty=040) EOSINOPHILS ABSOLUTE COUNT (BEAKER) (test 0.10 K/ L 0.04-0.36 bcfn=117) BASOPHILS ABSOLUTE COUNT (BEAKER) (test 0.02 K/ L 0.01-0.08 qvbh=037) IMMATURE GRANULOCYTES-RELATIVE PERCENT (BEAKER) 0 % 0-1 (test xtxd=2453) BASIC METABOLIC [id number] 16:02:00 Test Item Value Reference Range Comments SODIUM (BEAKER) (test 129 meq/L 136-145 hezw=488) POTASSIUM (BEAKER) (test 3.7 meq/L 3.5-5.1 upoe=038) CHLORIDE (BEAKER) (test 97 meq/L 98-107 hpcz=085) CO2 (BEAKER) (test 22 meq/L 22-29 sdgg=084) BLOOD UREA NITROGEN 16 mg/dL 7-21 (BEAKER) (test qqlx=213) CREATININE (BEAKER) (test 1.12 mg/dL 0.57-1.25 erkx=105) GLUCOSE RANDOM (BEAKER) 116 mg/dL 70-105 (test kpyn=363) CALCIUM (BEAKER) (test 10.0 mg/dL 8.4-10.2 xifs=324) EGFR (BEAKER) (test 47 mL/min/1.73 sq m ESTIMATED GFR IS NOT lcfm=8730) ACCURATE CREATININE CLEARANCE IN PREDICTING GLOMERULAR FILTRATION RATE. ESTIMATED GFR IS NOT APPLICABLE FOR DIALYSIS PATIENTS. CBC W/PLT COUNT & AUTO [id number] 15:31:00 Test Item Value Reference Range Comments WHITE BLOOD CELL COUNT (BEAKER) (test rivz=021) 8.2 K/ L 3.5-10.5 RED BLOOD CELL COUNT (BEAKER) (test tfuh=253) 4.14 M/ L 3.93-5.22 HEMOGLOBIN (BEAKER) (test zsps=220) 13.0 GM/DL 11.2-15.7 HEMATOCRIT (BEAKER) (test zidn=472) 39.1 % 34.1-44.9 MEAN CORPUSCULAR VOLUME (BEAKER) (test opqd=800) 94.4 fL 79.4-94.8 MEAN CORPUSCULAR HEMOGLOBIN (BEAKER) (test 31.4 pg 25.6-32.2 rnsk=548) MEAN CORPUSCULAR HEMOGLOBIN CONC (BEAKER) (test 33.2 GM/DL 32.2-35.5 vvnf=991) RED CELL DISTRIBUTION WIDTH (BEAKER) (test 12.8 % 11.7-14.4 qhel=494) PLATELET COUNT (BEAKER) (test ltgz=441) 228 K/CU MM 150-450 MEAN PLATELET VOLUME (BEAKER) (test snqe=879) 10.3 fL 9.4-12.3 NUCLEATED RED BLOOD CELLS (BEAKER) (test 0 /100 WBC 0-0 npou=418) NEUTROPHILS RELATIVE PERCENT (BEAKER) (test 80 % gmdd=921) LYMPHOCYTES RELATIVE PERCENT (BEAKER) (test 10 % qvqq=104) MONOCYTES RELATIVE PERCENT (BEAKER) (test 9 % rgve=869) EOSINOPHILS RELATIVE PERCENT (BEAKER) (test 0 % jmzi=618) BASOPHILS RELATIVE PERCENT (BEAKER) (test 0 % eowb=259) NEUTROPHILS ABSOLUTE COUNT (BEAKER) (test 6.59 K/ L 1.56-6.13 zwsi=433) LYMPHOCYTES ABSOLUTE COUNT (BEAKER) (test 0.86 K/ L 1.18-3.74 dywz=564) MONOCYTES ABSOLUTE COUNT (BEAKER) (test 0.70 K/ L 0.24-0.36 pbot=180) EOSINOPHILS ABSOLUTE COUNT (BEAKER) (test 0.03 K/ L 0.04-0.36 ctni=716) BASOPHILS ABSOLUTE COUNT (BEAKER) (test 0.02 K/ L 0.01-0.08 lwbe=999) IMMATURE GRANULOCYTES-RELATIVE PERCENT (BEAKER) 0 % 0-1 (test ekdv=9698)
[2019-01-28 13:27] LABS: Absolute Lymphocytes (CBC) 1.3 K/uL (0.7-4.9); Basophils % 0.3 % (0-1.3); Hematocrit 26.3 % (36.0-45.0); Lymphocytes % 19.1 % (15.3-44.8); MPV 8.8 fL (7.6-11.3); RBC Red Blood Cell Count 2.81 M/uL (3.86-4.86)
--- NOTE | 2019-01-28 14:18 | RAD REPORT ---
EXAM DESCRIPTION: USExtrem Venous W Compress Bil01/28/2019 1:39 pm CLINICAL HISTORY: Bilateral leg pain COMPARISON: none FINDINGS: The common femoral, superficial femoral, popliteal and posterior tibial veins bilaterally are compressible and demonstrate augmentation. Doppler demonstrates good flow. IMPRESSION: No evidence of deep venous thrombosis involving either lower extremity.
--- NOTE | 2019-01-28 14:57 | EDPHYS ---
Physician Documentation [facility] Name: Casey Lyons Age: 83 yrs Sex: Female : 1935 Arrival Date: 01/28/2019 Time: 11:25 Bed 19 Private MD: Gurdeep Koehler V ED Physician Jem Weston HPI: 01/28 17:45 This 83 yrs old Female presents to ER via Wheelchair with complaints of leg kdr and foot numbness. 17:45 The patient presents with pain, that is chronic, The patient c/o pain the in medical kdr aspect of the lower thigh, knee and calf. It has been present for some time but became acutely worse today. 01/29 09:01 The complaints affect the lateral aspect of left foot, medial aspect of left knee, kdr medial aspect of left foot and dorsum of left foot. Context: The problem was sustained at home. Onset: The symptoms/episode began/occurred at an unknown time. The patient c/o pain the medial aspect of her left knee and also numbness of her left foot. She states that she has had long standing numbness to the left foot though it has been mostly on the bottom of her foot. Today, she states that she had more involvement of the top of her foot. The pain is occurring along her old suture line from prior vascular intervention. There is no obvious sign of infection or other acute problem. The patient also c/o chronic abdominal pain - she has no concerns about her abdomen/Crohns. The primary problem today began earlier today. Historical: - Allergies: 01/28 11:47 No Known Drug Allergies; ph - Home Meds: 11:47 Apriso 0.375 gram Oral cp24 4 caps once daily [Active]; atorvastatin 80 mg Oral tab 1 ph tab once daily [Active]; carvedilol 25 mg Oral tab 1 tab 2 times per day [Active]; duloxetine 30 mg Oral cpDR 1 cap once daily [Active]; Fish Oil Oral [Active]; Integra Plus Oral 1 cap once daily [Active]; levothyroxine 25 mcg tab 1 tab once daily [Active]; losartan 100 mg Oral tab 1 tab once daily [Active]; PreserVision AREDS 2 Oral [Active]; Protonix 40 mg Oral grps 1 packet once daily [Active]; spironolactone 25 mg Oral tab 1 tab once daily [Active]; torsemide 10 mg Oral tab 1 tab once daily [Active]; - PMHx: 11:47 Cellulitis of Leg; Crohn's; Hypertension; ph - PSHx: 11:47 cardiac stents; Hysterectomy; CABG; stroke; Angio seal L leg; ph - Immunization history:: Adult Immunizations up to date. - Social history:: Smoking status: Patient/guardian denies using tobacco. - Ebola Screening: : No symptoms or risks identified at this time. ROS: 01/29 09:01 Constitutional: Negative for fever, chills, and weight loss, Eyes: Negative for injury, kdr pain, redness, and discharge, ENT: Negative for injury, pain, and discharge, Neck: Negative for injury, pain, and swelling, Cardiovascular: Negative for chest pain, palpitations, and edema, Respiratory: Negative for shortness of breath, cough, wheezing, and pleuritic chest pain, Abdomen/GI: Negative for abdominal pain, nausea, vomiting, diarrhea, and constipation, Back: Negative for injury and pain, : Negative for injury, bleeding, discharge, and swelling, Skin: Negative for injury, rash, and discoloration, Psych: Negative for depression, anxiety, suicide ideation, homicidal ideation, and hallucinations, Allergy/Immunology: Negative for hives, rash, and allergies, Endocrine: Negative for neck swelling, polydipsia, polyuria, polyphagia, and marked weight changes, Hematologic/Lymphatic: Negative for swollen nodes, abnormal bleeding, and unusual bruising. MS/extremity: Positive for paresthesias, of the ball of left foot, arch of left foot and dorsum of left foot, Negative for abrasion, contusion, decreased range of motion, deformity, ecchymosis, erythema, laceration, pain, puncture, rash, swelling, tingling. Exam: 09:01 Constitutional: This is a well developed, well nourished patient who is awake, alert, kdr and in no acute distress. Head/Face: Normocephalic, atraumatic. Eyes: Pupils equal round and reactive to light, extra-ocular motions intact. Lids and lashes normal. Conjunctiva and sclera are non-icteric and not injected. Cornea within normal limits. Periorbital areas with no swelling, redness, or edema. Neck: Trachea midline, no thyromegaly or masses palpated, and no cervical lymphadenopathy. Supple, full range of motion without nuchal rigidity, or vertebral point tenderness. No Meningismus. Chest/axilla: Normal chest wall appearance and motion. Nontender with no deformity. No lesions are appreciated. Cardiovascular: Regular rate and rhythm with a normal S1 and S2. No gallops, murmurs, or rubs. Normal PMI, no JVD. No pulse deficits. Respiratory: Lungs have equal breath sounds bilaterally, clear to auscultation and percussion. No rales, rhonchi or wheezes noted. No increased work of breathing, no retractions or nasal flaring. Abdomen/GI: Soft, non-tender, with normal bowel sounds. No distension or tympany. No guarding or rebound. No evidence of tenderness throughout. Back: No spinal tenderness. No costovertebral tenderness. Full range of motion. MS/ Extremity: Pulses equal, no cyanosis. Neurovascular intact. Full, normal range of motion. Psych: Awake, alert, with orientation to person, place and time. Behavior, mood, and affect are within normal limits. 09:01 Skin: Pain to medical well healed incision area on her left leg. 09:01 Neuro: Sensation: no obvious gross deficits, The patient c/o numbness to the right foot but gross inspection and testing does not reveal any deficits . Vital Signs: 01/28 11:45 BP 154 / 89; Pulse 59; Resp 18; Temp 98.0; Pulse Ox 100% on R/A; Weight 61.23 kg; ph Height 5 ft. 3 in. (160.02 cm); 13:55 BP 176 / 66; Pulse 59; Resp 16; Pulse Ox 100% ; bp 15:22 BP 161 / 75; Pulse 62; Resp 16; Temp 98; Pulse Ox 100% ; bp 11:45 Body Mass Index 23.91 (61.23 kg, 160.02 cm) ph MDM: 14:57 Patient medically screened. kdr 01/29 09:01 Data reviewed: vital signs, nurses notes, lab test result(s), radiologic studies. kdr Counseling: I had a detailed discussion with the patient and/or guardian regarding: the historical points, exam findings, and any diagnostic results supporting the discharge/admit diagnosis, lab results, radiology results, the need for outpatient follow up. Physician consultation: Gurdeep Koehler MD regarding consult, patient's condition, outpatient follow-up, and will see patient in office, next week. 01/28 12:48 Order name: CBC with Diff; Complete Time: 14:25 kdr 01/28 12:48 Order name: Chem 7; Complete Time: 14:25 kdr 01/28 12:48 Order name: Type And Screen; Complete Time: 14:25 kdr 01/28 12:48 Order name: US Extremity Venous W Compression Jeremiah; Complete Time: 14:25 kdr 01/28 12:48 Order name: Misc. Order: cracker/snack to bedside; Complete Time: 13:18 kdr Administered Medications: No medications were administered Disposition: 01/28/19 14:57 Discharged to Home. Impression: Pain in left leg, Pain in left lower leg. - Condition is Stable. - Discharge Instructions: Musculoskeletal Pain, Pain Without a Known Cause. - Prescriptions for Tramadol 50 mg Oral Tablet - take 1 tablet by ORAL route every 8 hours as needed; 12 tablet. - Medication Reconciliation Form, Thank You Letter form. - Follow up: Gurdeep Koehler MD; When: 1 - 2 days; Reason: If symptoms return, Further diagnostic work-up, Recheck today's complaints, Continuance of care, Re-evaluation by your physician. - Problem is new. - Symptoms have improved. Signatures: Dispatcher [employer] EDMS Jem Weston MD MD kdr Giovanna Kingston, RN RN Pedro Wagoner RN RN bp Corrections: (The following items were deleted from the chart) 01/28 15:24 14:57 01/28/2019 14:57 Discharged to Home. Impression: Pain in left leg; Pain in left bp lower leg. Condition is Stable. Forms are Medication Reconciliation Form, Thank You Letter, Antibiotic Education, Prescription Opioid Use. Follow up: Gurdeep Koehler; When: 1 - 2 days; Reason: If symptoms return, Further diagnostic work-up, Recheck today's complaints, Continuance of care, Re-evaluation by your physician. Problem is new. Symptoms have improved. kdr
--- NOTE | 2019-01-28 14:57 | ER ---
Nurse's Notes [facility] Name: Casey Lyons Age: 83 yrs Sex: Female : 1935 Arrival Date: 01/28/2019 Time: 11:25 Bed 19 Private MD: Gurdeep Koehler V Diagnosis: Pain in left leg;Pain in left lower leg Presentation: 01/28 11:44 Presenting complaint: Patient states: Had a L femoral angio-seal placed 01/19, c/o pain ph to L calf when ambulating and numbness/tingling to L foot, denies chest pain , SOB or fever. Transition of care: patient was not received from another setting of care. Onset of symptoms was January 28, 2019. Risk Assessment: Do you want to hurt yourself or someone else? Patient reports no desire to harm self or others. Initial Sepsis Screen: Does the patient meet any 2 criteria? No. Patient's initial sepsis screen is negative. Does the patient have a suspected source of infection? No. Patient's initial sepsis screen is negative. Care prior to arrival: None. 11:44 Method Of Arrival: Wheelchair ph 11:44 Acuity: CLINT 3 ph Triage Assessment: 11:45 General: Appears in no apparent distress. comfortable, Behavior is cooperative, bp appropriate for age, anxious. Pain: Denies pain. EENT: No deficits noted. Neuro: Level of Consciousness is awake, alert, obeys commands, Oriented to person, place, time, situation, Appropriate for age Reports numbness in left leg. Cardiovascular: No deficits noted. Respiratory: No deficits noted. GI: No signs and/or symptoms were reported involving the gastrointestinal system. : No signs and/or symptoms were reported regarding the genitourinary system. Derm: No deficits noted. Musculoskeletal: No deficits noted. Historical: - Allergies: 11:47 No Known Drug Allergies; ph - Home Meds: 11:47 Apriso 0.375 gram Oral cp24 4 caps once daily [Active]; atorvastatin 80 mg Oral tab 1 ph tab once daily [Active]; carvedilol 25 mg Oral tab 1 tab 2 times per day [Active]; duloxetine 30 mg Oral cpDR 1 cap once daily [Active]; Fish Oil Oral [Active]; Integra Plus Oral 1 cap once daily [Active]; levothyroxine 25 mcg tab 1 tab once daily [Active]; losartan 100 mg Oral tab 1 tab once daily [Active]; PreserVision AREDS 2 Oral [Active]; Protonix 40 mg Oral grps 1 packet once daily [Active]; spironolactone 25 mg Oral tab 1 tab once daily [Active]; torsemide 10 mg Oral tab 1 tab once daily [Active]; - PMHx: 11:47 Cellulitis of Leg; Crohn's; Hypertension; ph - PSHx: 11:47 cardiac stents; Hysterectomy; CABG; stroke; Angio seal L leg; ph - Immunization history:: Adult Immunizations up to date. - Social history:: Smoking status: Patient/guardian denies using tobacco. - Ebola Screening: : No symptoms or risks identified at this time. Screenin:49 Abuse screen: Denies threats or abuse. Denies injuries from another. Nutritional bp screening: No deficits noted. Tuberculosis screening: No symptoms or risk factors identified. Fall Risk None identified. Assessment: 11:45 General: SEE TRIAGE NOTE. bp 13:14 Reassessment: PT TO U/S. bp 13:52 Reassessment: PT RETURNED FROM U/S. ALL CURRENT ORDERS COMPLETED. bp 15:23 Reassessment: PT D/C HOME VIA W/C WITH FAMILY, DX WITH MUSCULOSKELETAL PAIN. bp Vital Signs: 11:45 BP 154 / 89; Pulse 59; Resp 18; Temp 98.0; Pulse Ox 100% on R/A; Weight 61.23 kg; ph Height 5 ft. 3 in. (160.02 cm); 13:55 BP 176 / 66; Pulse 59; Resp 16; Pulse Ox 100% ; bp 15:22 BP 161 / 75; Pulse 62; Resp 16; Temp 98; Pulse Ox 100% ; bp 11:45 Body Mass Index 23.91 (61.23 kg, 160.02 cm) ph ED Course: 11:25 Patient arrived in ED. mr 11:26 Gurdeep Koehler MD is Private Physician. mr 11:45 Triage completed. ph 11:47 Pedro Wagoner, GLORIA is Primary Nurse. bp 11:47 Arm band placed on Patient placed in an exam room, on a stretcher, on pulse oximetry. ph 11:49 Patient has correct armband on for positive identification. Bed in low position. Call bp light in reach. Side rails up X2. 11:58 Jem Weston MD is Attending Physician. kdr 12:00 Inserted saline lock: 22 gauge in left antecubital area, using aseptic technique. Blood bp collected. 13:43 US Extremity Venous W Compression Jeremiah In Process Unspecified. EDMS 14:56 Gurdeep Koehler MD is Referral Physician. kdr 15:23 No provider procedures requiring assistance completed. IV discontinued, intact, bp bleeding controlled, No redness/swelling at site. Pressure dressing applied. Administered Medications: No medications were administered Outcome: 14:57 Discharge ordered by . kdr 15:23 Discharged to home via wheelchair, with family. bp 15:23 Condition: stable 15:23 Discharge instructions given to patient, family, Instructed on discharge instructions, follow up and referral plans. medication usage, Demonstrated understanding of instructions, follow-up care, medications, Prescriptions given X 1. 15:24 Patient left the ED. bp Signatures: Dispatcher [employer] EDMT Jem Weston MD MD [facility] Shameka Mueller mr Giovanna Kingston, RN RN Pedro Wagoner, GLORIA RN bp
[2019-01-28 15:56] VITALS: O2SAT 100
[2019-01-28 15:59] VITALS: BP 161/75; TEMP 98
== END 2019-01-28 15:24 | disposition home or self-care (01) ==
LOC: ER 11:21
DX: M79.662 Pain in left lower leg (principal); M79.605 Pain in left leg; I10 Essential (primary) hypertension; Z95.1 Presence of aortocoronary bypass graft; Z95.818 Presence of other cardiac implants and grafts; Z86.73 Personal history of transient ischemic attack (TIA), and cerebral infarction without residual deficits
CPT/HCPCS: 36415; 80048; 85025; 86850; 86900; 86901; 93970; 99284

== ENCOUNTER 2019-02-05 17:19 | Emergency (ER) | payer OTHER, MEDICARE ==
--- OUTSIDE RECORDS SUMMARY | 2019-02-05 17:38 | XMS REPORT ---
:1935 [facility] Address [address] [place] [address] Dr. Mcduffie [address] [place] [id number] Care Team Providers Name Role Phone [place] [...] Comments SODIUM (BEAKER) (test 134 meq/L 136-145 dkpc=199) POTASSIUM (BEAKER) (test 4.5 meq/L 3.5-5.1 Specimen slightly hemolyzed locf=413) CHLORIDE (BEAKER) (test 108 meq/L 98-107 cswd=890) CO2 (BEAKER) (test psbu=798) 18 meq/L 22-29 BLOOD UREA NITROGEN (BEAKER) 15 mg/dL 7-21 (test ukdp=553) CREATININE (BEAKER) (test 1.04 mg/dL 0.57-1.25 Specimen slightly hemolyzed dgsg=661) GLUCOSE RANDOM (BEAKER) 117 mg/dL 70-105 (test nvsu=388) CALCIUM (BEAKER) (test 8.8 mg/dL 8.4-10.2 mtlx=656) EGFR (BEAKER) (test 51 mL/min/1.73 sq m ESTIMATED GFR IS NOT gwkc=8413) ACCURATE CREATININE CLEARANCE IN PREDICTING GLOMERULAR FILTRATION RATE. ESTIMATED GFR IS NOT APPLICABLE FOR DIALYSIS PATIENTS. CBC W/PLT COUNT & AUTO [id number] 06:55:00 Test Item Value Reference Range Comments WHITE BLOOD CELL COUNT (BEAKER) (test xwyi=994) 10.1 K/ L 3.5-10.5 RED BLOOD CELL COUNT (BEAKER) (test rlqk=605) 3.36 M/ L 3.93-5.22 HEMOGLOBIN (BEAKER) (test fkkr=123) 10.6 GM/DL 11.2-15.7 HEMATOCRIT (BEAKER) (test drut=324) 33.4 % 34.1-44.9 MEAN CORPUSCULAR VOLUME (BEAKER) (test trpj=492) 99.4 fL 79.4-94.8 MEAN CORPUSCULAR HEMOGLOBIN (BEAKER) (test 31.5 pg 25.6-32.2 osak=501) MEAN CORPUSCULAR HEMOGLOBIN CONC (BEAKER) (test 31.7 GM/DL 32.2-35.5 jqab=518) RED CELL DISTRIBUTION WIDTH (BEAKER) (test 13.2 % 11.7-14.4 goxf=477) PLATELET COUNT (BEAKER) (test myts=380) 206 K/CU MM 150-450 MEAN PLATELET VOLUME (BEAKER) (test dpfp=131) 11.1 fL 9.4-12.3 NUCLEATED RED BLOOD CELLS (BEAKER) (test 0 /100 WBC 0-0 grjy=678) NEUTROPHILS RELATIVE PERCENT (BEAKER) (test 78 % bmoo=680) LYMPHOCYTES RELATIVE PERCENT (BEAKER) (test 12 % bxfm=847) MONOCYTES RELATIVE PERCENT (BEAKER) (test 7 % zbch=130) EOSINOPHILS RELATIVE PERCENT (BEAKER) (test 2 % lztt=366) BASOPHILS RELATIVE PERCENT (BEAKER) (test 0 % yxzq=776) NEUTROPHILS ABSOLUTE COUNT (BEAKER) (test 7.86 K/ L 1.56-6.13 nxrx=729) LYMPHOCYTES ABSOLUTE COUNT (BEAKER) (test 1.21 K/ L 1.18-3.74 wser=421) MONOCYTES ABSOLUTE COUNT (BEAKER) (test 0.73 K/ L 0.24-0.36 lbtk=385) EOSINOPHILS ABSOLUTE COUNT (BEAKER) (test 0.19 K/ L 0.04-0.36 zdug=202) BASOPHILS ABSOLUTE COUNT (BEAKER) (test 0.04 K/ L 0.01-0.08 ccge=558) IMMATURE GRANULOCYTES-RELATIVE PERCENT (BEAKER) 0 % 0-1 (test qdbd=0715) BASIC METABOLIC [id number] 05:32:00 Test Item Value Reference Range Comments SODIUM (BEAKER) (test 135 meq/L 136-145 kgkb=657) POTASSIUM (BEAKER) (test 3.9 meq/L 3.5-5.1 xwya=820) CHLORIDE (BEAKER) (test 108 meq/L 98-107 wdzx=240) CO2 (BEAKER) (test 20 meq/L 22-29 gwno=456) BLOOD UREA NITROGEN 16 mg/dL 7-21 (BEAKER) (test dlpe=747) CREATININE (BEAKER) (test 1.03 mg/dL 0.57-1.25 abuc=514) GLUCOSE RANDOM (BEAKER) 102 mg/dL 70-105 (test deri=163) CALCIUM (BEAKER) (test 8.7 mg/dL 8.4-10.2 egie=991) EGFR (BEAKER) (test 52 mL/min/1.73 sq m ESTIMATED GFR IS NOT wqyc=2844) ACCURATE CREATININE CLEARANCE IN PREDICTING GLOMERULAR FILTRATION RATE. ESTIMATED GFR IS NOT APPLICABLE FOR DIALYSIS PATIENTS. CBC W/PLT COUNT & AUTO [id number] 05:11:00 Test Item Value Reference Range Comments WHITE BLOOD CELL COUNT (BEAKER) (test zxrd=367) 6.0 K/ L 3.5-10.5 RED BLOOD CELL COUNT (BEAKER) (test ofgu=371) 3.26 M/ L 3.93-5.22 HEMOGLOBIN (BEAKER) (test ilcr=774) 10.0 GM/DL 11.2-15.7 HEMATOCRIT (BEAKER) (test fvyn=844) 31.7 % 34.1-44.9 MEAN CORPUSCULAR VOLUME (BEAKER) (test mxip=346) 97.2 fL 79.4-94.8 MEAN CORPUSCULAR HEMOGLOBIN (BEAKER) (test 30.7 pg 25.6-32.2 rrkm=420) MEAN CORPUSCULAR HEMOGLOBIN CONC (BEAKER) (test 31.5 GM/DL 32.2-35.5 ecxn=847) RED CELL DISTRIBUTION WIDTH (BEAKER) (test 13.2 % 11.7-14.4 irpz=303) PLATELET COUNT (BEAKER) (test wrsu=112) 199 K/CU MM 150-450 MEAN PLATELET VOLUME (BEAKER) (test dtoh=993) 10.7 fL 9.4-12.3 NUCLEATED RED BLOOD CELLS (BEAKER) (test 0 /100 WBC 0-0 fzvp=635) NEUTROPHILS RELATIVE PERCENT (BEAKER) (test 60 % lang=805) LYMPHOCYTES RELATIVE PERCENT (BEAKER) (test 23 % cmvo=675) MONOCYTES RELATIVE PERCENT (BEAKER) (test 13 % ffgn=024) EOSINOPHILS RELATIVE PERCENT (BEAKER) (test 3 % fati=899) BASOPHILS RELATIVE PERCENT (BEAKER) (test 0 % hbfw=953) NEUTROPHILS ABSOLUTE COUNT (BEAKER) (test 3.59 K/ L 1.56-6.13 hmcl=151) LYMPHOCYTES ABSOLUTE COUNT (BEAKER) (test 1.36 K/ L 1.18-3.74 iijf=498) MONOCYTES ABSOLUTE COUNT (BEAKER) (test 0.77 K/ L 0.24-0.36 vmjm=427) EOSINOPHILS ABSOLUTE COUNT (BEAKER) (test 0.20 K/ L 0.04-0.36 pxkr=912) BASOPHILS ABSOLUTE COUNT (BEAKER) (test 0.02 K/ L 0.01-0.08 rmfs=504) IMMATURE GRANULOCYTES-RELATIVE PERCENT (BEAKER) 0 % 0-1 (test qigv=0852) [id number] 07:46:00 Test Item Value Reference Range Comments MAGNESIUM (BEAKER) (test mxfi=668) 2.2 mg/dL 1.6-2.6 BASIC METABOLIC [id number] 07:46:00 Test Item Value Reference Range Comments SODIUM (BEAKER) (test 135 meq/L 136-145 olsl=397) POTASSIUM (BEAKER) (test 3.6 meq/L 3.5-5.1 fqwz=653) CHLORIDE (BEAKER) (test 106 meq/L 98-107 orwt=961) CO2 (BEAKER) (test 21 meq/L 22-29 ioor=797) BLOOD UREA NITROGEN 21 mg/dL 7-21 (BEAKER) (test wpkc=627) CREATININE (BEAKER) (test 1.11 mg/dL 0.57-1.25 qfzt=136) GLUCOSE RANDOM (BEAKER) 97 mg/dL 70-105 (test nmye=687) CALCIUM (BEAKER) (test 8.8 mg/dL 8.4-10.2 ugwu=046) EGFR (BEAKER) (test 47 mL/min/1.73 sq m ESTIMATED GFR IS NOT cwrt=9524) ACCURATE CREATININE CLEARANCE IN PREDICTING GLOMERULAR FILTRATION RATE. ESTIMATED GFR IS NOT APPLICABLE FOR DIALYSIS PATIENTS. CBC W/PLT COUNT & AUTO [id number] 07:31:00 Test Item Value Reference Range Comments WHITE BLOOD CELL COUNT (BEAKER) (test vtyr=075) 7.1 K/ L 3.5-10.5 RED BLOOD CELL COUNT (BEAKER) (test cyry=142) 3.41 M/ L 3.93-5.22 HEMOGLOBIN (BEAKER) (test ahdf=748) 10.7 GM/DL 11.2-15.7 HEMATOCRIT (BEAKER) (test slzk=277) 32.7 % 34.1-44.9 MEAN CORPUSCULAR VOLUME (BEAKER) (test hkpz=686) 95.9 fL 79.4-94.8 MEAN CORPUSCULAR HEMOGLOBIN (BEAKER) (test 31.4 pg 25.6-32.2 zrnt=170) MEAN CORPUSCULAR HEMOGLOBIN CONC (BEAKER) (test 32.7 GM/DL 32.2-35.5 yitc=114) RED CELL DISTRIBUTION WIDTH (BEAKER) (test 13.2 % 11.7-14.4 lsqf=115) PLATELET COUNT (BEAKER) (test uauc=987) 216 K/CU MM 150-450 MEAN PLATELET VOLUME (BEAKER) (test qewo=069) 10.5 fL 9.4-12.3 NUCLEATED RED BLOOD CELLS (BEAKER) (test 0 /100 WBC 0-0 qszw=582) NEUTROPHILS RELATIVE PERCENT (BEAKER) (test 66 % fvdo=675) LYMPHOCYTES RELATIVE PERCENT (BEAKER) (test 20 % duer=370) MONOCYTES RELATIVE PERCENT (BEAKER) (test 11 % lqbm=186) EOSINOPHILS RELATIVE PERCENT (BEAKER) (test 3 % ygaq=541) BASOPHILS RELATIVE PERCENT (BEAKER) (test 0 % oowz=841) NEUTROPHILS ABSOLUTE COUNT (BEAKER) (test 4.69 K/ L 1.56-6.13 ctlq=946) LYMPHOCYTES ABSOLUTE COUNT (BEAKER) (test 1.44 K/ L 1.18-3.74 ypvq=422) MONOCYTES ABSOLUTE COUNT (BEAKER) (test 0.78 K/ L 0.24-0.36 slgy=854) EOSINOPHILS ABSOLUTE COUNT (BEAKER) (test 0.18 K/ L 0.04-0.36 obmh=829) BASOPHILS ABSOLUTE COUNT (BEAKER) (test 0.02 K/ L 0.01-0.08 ujoh=100) IMMATURE GRANULOCYTES-RELATIVE PERCENT (BEAKER) 0 % 0-1 (test tpdq=2781) BASIC METABOLIC [id number] 14:48:00 Test Item Value Reference Range Comments SODIUM (BEAKER) (test 133 meq/L 136-145 rnzb=344) POTASSIUM (BEAKER) (test 4.3 meq/L 3.5-5.1 iwaa=630) CHLORIDE (BEAKER) (test 103 meq/L 98-107 iluw=211) CO2 (BEAKER) (test 21 meq/L 22-29 wdke=580) BLOOD UREA NITROGEN 31 mg/dL 7-21 (BEAKER) (test cdah=036) CREATININE (BEAKER) (test 1.25 mg/dL 0.57-1.25 etrn=307) GLUCOSE RANDOM (BEAKER) 105 mg/dL 70-105 (test oxoh=661) CALCIUM (BEAKER) (test 9.0 mg/dL 8.4-10.2 odin=662) EGFR (BEAKER) (test 41 mL/min/1.73 sq m ESTIMATED GFR IS NOT iafh=1643) ACCURATE CREATININE CLEARANCE IN PREDICTING GLOMERULAR FILTRATION RATE. ESTIMATED GFR IS NOT APPLICABLE FOR DIALYSIS PATIENTS. [id number] 06:03:00 Test Item Value Reference Range Comments MAGNESIUM (BEAKER) (test dieg=230) 2.3 mg/dL 1.6-2.6 CBC (HEMOGRAM ONLY)2018-02-19 05:46:00 Test Item Value Reference Range Comments WHITE BLOOD CELL COUNT (BEAKER) (test avms=619) 8.9 K/ L 3.5-10.5 RED BLOOD CELL COUNT (BEAKER) (test tcic=112) 3.46 M/ L 3.93-5.22 HEMOGLOBIN (BEAKER) (test jbjx=144) 11.0 GM/DL 11.2-15.7 HEMATOCRIT (BEAKER) (test nrup=256) 33.3 % 34.1-44.9 MEAN CORPUSCULAR VOLUME (BEAKER) (test jknw=330) 96.2 fL 79.4-94.8 MEAN CORPUSCULAR HEMOGLOBIN (BEAKER) (test 31.8 pg 25.6-32.2 zzjq=286) MEAN CORPUSCULAR HEMOGLOBIN CONC (BEAKER) (test 33.0 GM/DL 32.2-35.5 xqjw=767) RED CELL DISTRIBUTION WIDTH (BEAKER) (test 13.1 % 11.7-14.4 hpyt=102) PLATELET COUNT (BEAKER) (test liqr=011) 218 K/CU MM 150-450 MEAN PLATELET VOLUME (BEAKER) (test xkia=697) 10.9 fL 9.4-12.3 NUCLEATED RED BLOOD CELLS (BEAKER) (test 0 /100 WBC 0-0 djqh=711) POCT-GLUCOSE [id number] 14:00:00 Test Item Value Reference Range Comments POC-GLUCOSE METER (BEAKER) 283 mg/dL 70-110 TESTED AT [facility] [address] [facility] (test ncpz=8615) [facility] [address] [id number] 05:56:00 Test Item Value Reference Range Comments MAGNESIUM (BEAKER) (test gnwq=318) 2.8 mg/dL 1.6-2.6 BASIC METABOLIC [id number] 05:56:00 Test Item Value Reference Range Comments SODIUM (BEAKER) (test 132 meq/L 136-145 khpa=934) POTASSIUM (BEAKER) (test 4.0 meq/L 3.5-5.1 ckho=602) CHLORIDE (BEAKER) (test 104 meq/L 98-107 vatb=183) CO2 (BEAKER) (test 19 meq/L 22-29 cctm=208) BLOOD UREA NITROGEN 31 mg/dL 7-21 (BEAKER) (test tkar=812) CREATININE (BEAKER) (test 1.28 mg/dL 0.57-1.25 gcze=990) GLUCOSE RANDOM (BEAKER) 69 mg/dL 70-105 (test gxzs=258) CALCIUM (BEAKER) (test 8.8 mg/dL 8.4-10.2 sbfg=541) EGFR (BEAKER) (test 40 mL/min/1.73 sq m ESTIMATED GFR IS NOT uucm=7323) ACCURATE CREATININE CLEARANCE IN PREDICTING GLOMERULAR FILTRATION RATE. ESTIMATED GFR IS NOT APPLICABLE FOR DIALYSIS PATIENTS. CBC (HEMOGRAM ONLY)2018-02-18 05:30:00 Test Item Value Reference Range Comments WHITE BLOOD CELL COUNT (BEAKER) (test syge=250) 8.4 K/ L 3.5-10.5 RED BLOOD CELL COUNT (BEAKER) (test epjk=340) 3.53 M/ L 3.93-5.22 HEMOGLOBIN (BEAKER) (test ntyr=567) 11.1 GM/DL 11.2-15.7 HEMATOCRIT (BEAKER) (test tnwv=642) 34.9 % 34.1-44.9 MEAN CORPUSCULAR VOLUME (BEAKER) (test ixkm=613) 98.9 fL 79.4-94.8 MEAN CORPUSCULAR HEMOGLOBIN (BEAKER) (test 31.4 pg 25.6-32.2 ncuc=021) MEAN CORPUSCULAR HEMOGLOBIN CONC (BEAKER) (test 31.8 GM/DL 32.2-35.5 fqli=800) RED CELL DISTRIBUTION WIDTH (BEAKER) (test 13.2 % 11.7-14.4 rpzm=594) PLATELET COUNT (BEAKER) (test jnbk=198) 205 K/CU MM 150-450 MEAN PLATELET VOLUME (BEAKER) (test epot=197) 10.7 fL 9.4-12.3 NUCLEATED RED BLOOD CELLS (BEAKER) (test 0 /100 WBC 0-0 luzy=986) [id number] 23:41:00 Test Item Value Reference Range Comments ACTIVATED CLOTTING TIME (BEAKER) 92 sec TESTED AT [address] (test jpeb=751) [place] [address] [id number] 21:56:00 Test Item Value Reference Range Comments ACTIVATED CLOTTING TIME 153 sec TESTED AT [address] (BEAKER) (test regb=127) [place] [address] [id number] 19:28:00 Test Item Value Reference Range Comments ACTIVATED CLOTTING TIME 197 sec TESTED AT [address] (BEAKER) (test mxan=468) [place] [address] [id number] 17:41:00 Test Item Value Reference Range Comments ACTIVATED CLOTTING TIME 246 sec TESTED AT [address] (BEAKER) (test tmqn=423) [place] [address] [id number] 12:36:00 Test Item Value Reference Range Comments POTASSIUM (BEAKER) (test fdre=082) 4.0 meq/L 3.5-5.1 TROPONIN [id number] 12:03:00 Test Item Value Reference Range Comments TROPONIN I (BEAKER) (test pohh=112) 3.94 ng/mL 0.00-0.03 Troponin I (TnI) levels [...] failure, acidosis, acute neurological disease, and persistent tachyarrhythmia.[id number] 11:44:00 Test Item Value Reference Range Comments MAGNESIUM (BEAKER) (test ykas=304) 1.9 mg/dL 1.6-2.6 [id number] 11:37:00 Test Item Value Reference Range Comments PARTIAL THROMBOPLASTIN TIME (BEAKER) (test 98.3 seconds 22.5-36.0 qlzd=003) [id number] 04:04:00 Test Item Value Reference Range Comments PARTIAL THROMBOPLASTIN TIME (BEAKER) (test 92.5 seconds 22.5-36.0 nzov=656) TROPONIN [id number] 02:06:00 Test Item Value Reference Range Comments TROPONIN I (BEAKER) (test lrvn=228) 7.11 ng/mL 0.00-0.03 Troponin I (TnI) levels [...] acute neurological disease, and persistent tachyarrhythmia.BASIC METABOLIC [id number] 01:56:00 Test Item Value Reference Range Comments SODIUM (BEAKER) (test 135 meq/L 136-145 pmqa=495) POTASSIUM (BEAKER) (test 3.7 meq/L 3.5-5.1 jukq=977) CHLORIDE (BEAKER) (test 102 meq/L 98-107 capu=776) CO2 (BEAKER) (test 22 meq/L 22-29 sjor=778) BLOOD UREA NITROGEN 17 mg/dL 7-21 (BEAKER) (test mstt=837) CREATININE (BEAKER) (test 1.49 mg/dL 0.57-1.25 ukip=443) GLUCOSE RANDOM (BEAKER) 90 mg/dL 70-105 (test cflv=068) CALCIUM (BEAKER) (test 9.2 mg/dL 8.4-10.2 qetv=302) EGFR (BEAKER) (test 34 mL/min/1.73 sq m ESTIMATED GFR IS NOT czki=4058) ACCURATE CREATININE CLEARANCE IN PREDICTING GLOMERULAR FILTRATION RATE. ESTIMATED GFR IS NOT APPLICABLE FOR DIALYSIS PATIENTS. [id number] 01:53:00 Test Item Value Reference Range Comments PROTIME (BEAKER) (test ckvj=627) 15.2 seconds 11.7-14.7 INR (BEAKER) (test suhk=692) 1.2 <=5.9 PARTIAL THROMBOPLASTIN TIME (BEAKER) (test 146.1 seconds 22.5-36.0 lsnm=416) RECOMMENDED COUMADIN/WARFARIN INR THERAPY RANGESSTANDARD DOSE: 2.0 - 3.0 Includes: PROPHYLAXIS forvenous thrombosis, systemic embolization; TREATMENT for venous thrombosis and/or pulmonary embolus.HIGH RISK: Target INR is 2.5-3.5 for patients with mechanical heart valves.PROTHROMBIN [id number] 01:50: 00 Test Item Value Reference Range Comments PROTIME (BEAKER) (test ptmb=793) 15.2 seconds 11.7-14.7 INR (BEAKER) (test nlsv=654) 1.2 <=5.9 RECOMMENDED COUMADIN/WARFARIN INR THERAPY RANGESSTANDARD DOSE: 2.0 - 3.0 Includes: PROPHYLAXIS forvenous thrombosis, systemic embolization; TREATMENT for venous thrombosis and/or pulmonary embolus.HIGH RISK: Target INR is 2.5-3.5 for patients with mechanical heart valves.CBC W/PLT COUNT & AUTO [id number] 01:43:00 Test Item Value Reference Range Comments WHITE BLOOD CELL COUNT (BEAKER) (test vvxr=172) 7.1 K/ L 3.5-10.5 RED BLOOD CELL COUNT (BEAKER) (test wwxi=262) 3.45 M/ L 3.93-5.22 HEMOGLOBIN (BEAKER) (test apnh=506) 10.8 GM/DL 11.2-15.7 HEMATOCRIT (BEAKER) (test trpq=472) 33.2 % 34.1-44.9 MEAN CORPUSCULAR VOLUME (BEAKER) (test cagc=840) 96.2 fL 79.4-94.8 MEAN CORPUSCULAR HEMOGLOBIN (BEAKER) (test 31.3 pg 25.6-32.2 whjr=215) MEAN CORPUSCULAR HEMOGLOBIN CONC (BEAKER) (test 32.5 GM/DL 32.2-35.5 ekzt=112) RED CELL DISTRIBUTION WIDTH (BEAKER) (test 13.3 % 11.7-14.4 iqmv=217) PLATELET COUNT (BEAKER) (test mqwo=637) 190 K/CU MM 150-450 MEAN PLATELET VOLUME (BEAKER) (test pqdd=869) 10.5 fL 9.4-12.3 NUCLEATED RED BLOOD CELLS (BEAKER) (test 0 /100 WBC 0-0 pyul=181) NEUTROPHILS RELATIVE PERCENT (BEAKER) (test 76 % khib=298) LYMPHOCYTES RELATIVE PERCENT (BEAKER) (test 12 % onhv=262) MONOCYTES RELATIVE PERCENT (BEAKER) (test 10 % pobs=856) EOSINOPHILS RELATIVE PERCENT (BEAKER) (test 1 % mfxy=134) BASOPHILS RELATIVE PERCENT (BEAKER) (test 0 % khdw=006) NEUTROPHILS ABSOLUTE COUNT (BEAKER) (test 5.45 K/ L 1.56-6.13 sstr=769) LYMPHOCYTES ABSOLUTE COUNT (BEAKER) (test 0.85 K/ L 1.18-3.74 zwit=083) MONOCYTES ABSOLUTE COUNT (BEAKER) (test 0.70 K/ L 0.24-0.36 uqgw=455) EOSINOPHILS ABSOLUTE COUNT (BEAKER) (test 0.10 K/ L 0.04-0.36 ghan=165) BASOPHILS ABSOLUTE COUNT (BEAKER) (test 0.02 K/ L 0.01-0.08 ysbn=106) IMMATURE GRANULOCYTES-RELATIVE PERCENT (BEAKER) 0 % 0-1 (test gjwd=5126) [id number] 23:09:00 Test Item Value Reference Range Comments RPR SCREEN (BEAKER) (test qkyq=225) Nonreactive Nonreactive TROPONIN [id number] 21:20:00 Test Item Value Reference Range Comments TROPONIN I (BEAKER) (test tica=555) 7.60 ng/mL 0.00-0.03 Troponin I (TnI) levels [...] failure, acidosis, acute neurological disease, and persistent tachyarrhythmia.[id number] 18:57:00 Test Item Value Reference Range Comments PARTIAL THROMBOPLASTIN TIME (LISANDROAKER) (test 58.1 seconds 22.5-36.0 blqp=294) TROPONIN [id number] 15:25:00 Test Item Value Reference Range Comments TROPONIN I (LISANDROAKER) (test ehav=242) 6.89 ng/mL 0.00-0.03 Troponin I (TnI) levels [...] NATRIURETIC PEPTIDE (LISANDROAKER) (test 2849 pg/mL 0-100 cpio=611) Please obtain with next scheduled blood draw- no Need for extra pokeRAD, CHEST , 1 VIEW, NON [id number] 11:13:00Reason for exam:->chest painFINAL REPORT HISTORY : [...] Verified Date/ Time: 02/16/2018 11:13:08 Reading Location: [facility] Radiology Reading Room TROPONIN [id number] 09:59:00 Test Item Value Reference Range Comments TROPONIN I (BEAKER) (test mhpm=845) 6.35 ng/mL 0.00-0.03 Troponin I (TnI) levels [...] failure, acidosis, acute neurological disease, and persistent tachyarrhythmia.[id number] 09:06:00 Test Item Value Reference Range Comments PARTIAL THROMBOPLASTIN TIME (BEAKER) (test 26.7 seconds 22.5-36.0 kgly=553) Prior to initiating heparinPLATELET [id number] 08:48:00 Test Item Value Reference Range Comments PLATELET COUNT (LISANDROAKER) (test ztcx=092) 230 K/CU MM 150-450 CT BRAIN WITHOUT IV CONTRAST - [id number] 06:53:00Reason for exam:-> post-tpaFINAL REPORT EXAM: CT [...] Verified Date/ Time: 02/16/2018 06:53:18 Reading Location: [facility] [id number] Transitional Reading Room AELMARIMAR [id number] 03:14:00 Test Item Value Reference Range Comments TROPONIN I (BEAKER) (test myqg=567) 3.40 ng/mL 0.00-0.03 Troponin I (TnI) levels [...] acute neurological disease, and persistent tachyarrhythmia.BASIC METABOLIC [id number] 02:53:00 Test Item Value Reference Range Comments SODIUM (BEAKER) (test 137 meq/L 136-145 gwrz=592) POTASSIUM (BEAKER) (test 4.4 meq/L 3.5-5.1 gras=606) CHLORIDE (BEAKER) (test 106 meq/L 98-107 ogse=596) CO2 (BEAKER) (test 22 meq/L 22-29 mofi=198) BLOOD UREA NITROGEN 12 mg/dL 7-21 (BEAKER) (test easw=211) CREATININE (BEAKER) (test 1.06 mg/dL 0.57-1.25 foyu=864) GLUCOSE RANDOM (BEAKER) 109 mg/dL 70-105 (test fdgo=281) CALCIUM (BEAKER) (test 9.8 mg/dL 8.4-10.2 cbow=106) EGFR (BEAKER) (test 50 mL/min/1.73 sq m ESTIMATED GFR IS NOT kdws=1421) ACCURATE CREATININE CLEARANCE IN PREDICTING GLOMERULAR FILTRATION RATE. ESTIMATED GFR IS NOT APPLICABLE FOR DIALYSIS PATIENTS. PT/[id number] 02:48:00 Test Item Value Reference Range Comments PROTIME (BEAKER) (test heia=993) 14.5 seconds 11.7-14.7 INR (BEAKER) (test extt=995) 1.1 <=5.9 PARTIAL THROMBOPLASTIN TIME (BEAKER) (test 25.7 seconds 22.5-36.0 xfmu=538) RECOMMENDED COUMADIN/WARFARIN INR THERAPY RANGESSTANDARD DOSE: 2.0 - 3.0 Includes: PROPHYLAXIS forvenous thrombosis, systemic embolization; TREATMENT for venous thrombosis and/or pulmonary embolus.HIGH RISK: Target INR is 2.5-3.5 for patients with mechanical heart valves.PROTHROMBIN [id number] 02:47: 00 Test Item Value Reference Range Comments PROTIME (BEAKER) (test cvwn=129) 14.5 seconds 11.7-14.7 INR (BEAKER) (test rljr=474) 1.1 <=5.9 RECOMMENDED COUMADIN/WARFARIN INR THERAPY RANGESSTANDARD DOSE: 2.0 - 3.0 Includes: PROPHYLAXIS forvenous thrombosis, systemic embolization; TREATMENT for venous thrombosis and/or pulmonary embolus.HIGH RISK: Target INR is 2.5-3.5 for patients with mechanical heart valves.CBC W/PLT COUNT & AUTO [id number] 02:29:00 Test Item Value Reference Range Comments WHITE BLOOD CELL COUNT (BEAKER) (test uolb=502) 8.8 K/ L 3.5-10.5 RED BLOOD CELL COUNT (BEAKER) (test buld=655) 3.71 M/ L 3.93-5.22 HEMOGLOBIN (BEAKER) (test qlwl=869) 11.9 GM/DL 11.2-15.7 HEMATOCRIT (BEAKER) (test ubvc=821) 35.8 % 34.1-44.9 MEAN CORPUSCULAR VOLUME (BEAKER) (test cjto=990) 96.5 fL 79.4-94.8 MEAN CORPUSCULAR HEMOGLOBIN (BEAKER) (test 32.1 pg 25.6-32.2 xfwe=019) MEAN CORPUSCULAR HEMOGLOBIN CONC (BEAKER) (test 33.2 GM/DL 32.2-35.5 kzgd=328) RED CELL DISTRIBUTION WIDTH (BEAKER) (test 13.2 % 11.7-14.4 qezi=302) PLATELET COUNT (BEAKER) (test vxxl=745) 205 K/CU MM 150-450 MEAN PLATELET VOLUME (BEAKER) (test xvah=063) 10.2 fL 9.4-12.3 NUCLEATED RED BLOOD CELLS (BEAKER) (test 0 /100 WBC 0-0 bnyz=026) NEUTROPHILS RELATIVE PERCENT (BEAKER) (test 83 % jbdk=148) LYMPHOCYTES RELATIVE PERCENT (BEAKER) (test 8 % fngh=544) MONOCYTES RELATIVE PERCENT (BEAKER) (test 9 % hijl=951) EOSINOPHILS RELATIVE PERCENT (BEAKER) (test 0 % fffa=135) BASOPHILS RELATIVE PERCENT (BEAKER) (test 0 % asfk=281) NEUTROPHILS ABSOLUTE COUNT (BEAKER) (test 7.27 K/ L 1.56-6.13 hrxb=038) LYMPHOCYTES ABSOLUTE COUNT (BEAKER) (test 0.68 K/ L 1.18-3.74 medy=963) MONOCYTES ABSOLUTE COUNT (BEAKER) (test 0.77 K/ L 0.24-0.36 dvxq=028) EOSINOPHILS ABSOLUTE COUNT (BEAKER) (test 0.01 K/ L 0.04-0.36 pgzh=964) BASOPHILS ABSOLUTE COUNT (BEAKER) (test 0.02 K/ L 0.01-0.08 nuhn=354) IMMATURE GRANULOCYTES-RELATIVE PERCENT (BEAKER) 1 % 0-1 (test xhmi=8695) TROPONIN [id number] 17:32:00 Test Item Value Reference Range Comments TROPONIN I (BEAKER) (test qban=023) 0.13 ng/mL 0.00-0.03 Troponin I (TnI) levels [...] acidosis, acute neurological disease, and persistent tachyarrhythmia.HEMOGLOBIN [id number] 11:13:00 Test Item Value Reference Range Comments HEMOGLOBIN A1C (BEAKER) (test ereo=290) 5.4 % 4.3-6.1 [id number] 05:41:00 Test Item Value Reference Range Comments THYROID STIMULATING HORMONE (BEAKER) (test 0.94 uIU/mL 0.35-4.94 ojto=969) VITAMIN B12 AND [id number] 05:41:00 Test Item Value Reference Range Comments VITAMIN B12 (BEAKER) (test kfld=909) 1440 pg/mL 213-816 FOLATE (BEAKER) (test lwje=369) 7.6 ng/mL >=7.0 [id number] 05:07:00 Test Item Value Reference Range Comments MAGNESIUM (BEAKER) (test 1.7 mg/dL 1.6-2.6 Specimen slightly hemolyzed kuye=805) BASIC METABOLIC [id number] 05:07:00 Test Item Value Reference Range Comments SODIUM (BEAKER) (test 133 meq/L 136-145 rcbj=398) POTASSIUM (BEAKER) (test 4.2 meq/L 3.5-5.1 Specimen slightly epzm=338) hemolyzed CHLORIDE (BEAKER) (test 104 meq/L 98-107 npko=342) CO2 (BEAKER) (test 21 meq/L 22-29 xvir=940) BLOOD UREA NITROGEN 12 mg/dL 7-21 (BEAKER) (test eejm=114) CREATININE (BEAKER) (test 0.95 mg/dL 0.57-1.25 Specimen slightly vspb=806) hemolyzed GLUCOSE RANDOM (BEAKER) 98 mg/dL 70-105 (test wgtp=714) CALCIUM (BEAKER) (test 9.3 mg/dL 8.4-10.2 wuuv=712) EGFR (BEAKER) (test 57 mL/min/1.73 sq m ESTIMATED GFR IS NOT vuvm=2455) ACCURATE CREATININE CLEARANCE IN PREDICTING GLOMERULAR FILTRATION RATE. ESTIMATED GFR IS NOT APPLICABLE FOR DIALYSIS PATIENTS. LIPID [id number] 05:07:00 Test Item Value Reference Range Comments TRIGLYCERIDES (BEAKER) (test 137 mg/dL Specimen slightly hemolyzed fzzy=192) CHOLESTEROL (BEAKER) (test 155 mg/dL Specimen slightly hemolyzed agkj=513) HDL CHOLESTEROL (BEAKER) (test 59 mg/dL dlla=589) LDL CHOLESTEROL CALCULATED 69 mg/dL (BEAKER) (test hzmd=581) Triglyceride Reference Range: Low Risk <150 Borderline 150- 199 High Risk 200-499 Very High Risk >=500Cholesterol Reference Range: Low Risk <200 Borderline 200-239 High Risk > 240HDL Cholesterol Reference Range: Low Risk >=60 High Risk <40LDL Cholesterol Reference Range: Optimal <100 Near Optimal 100-129 Borderline 130-159 High 160-189 Very High >=190PT/[id number] 04:54:00 Test Item Value Reference Range Comments PROTIME (BEAKER) (test oxdx=708) 14.0 seconds 11.7-14.7 INR (BEAKER) (test ponr=431) 1.1 <=5.9 PARTIAL THROMBOPLASTIN TIME (BEAKER) (test 27.3 seconds 22.5-36.0 igwc=009) RECOMMENDED COUMADIN/WARFARIN INR THERAPY RANGESSTANDARD DOSE: 2.0 - 3.0 Includes: PROPHYLAXIS forvenous thrombosis, systemic embolization; TREATMENT for venous thrombosis and/or pulmonary embolus.HIGH RISK: Target INR is 2.5-3.5 for patients with mechanical heart valves.PROTHROMBIN [id number] 04:53: 00 Test Item Value Reference Range Comments PROTIME (BEAKER) (test vtkn=594) 14.0 seconds 11.7-14.7 INR (BEAKER) (test fjiv=676) 1.1 <=5.9 RECOMMENDED COUMADIN/WARFARIN INR THERAPY RANGESSTANDARD DOSE: 2.0 - 3.0 Includes: PROPHYLAXIS forvenous thrombosis, systemic embolization; TREATMENT for venous thrombosis and/or pulmonary embolus.HIGH RISK: Target INR is 2.5-3.5 for patients with mechanical heart valves.CBC W/PLT COUNT & AUTO [id number] 04:44:00 Test Item Value Reference Range Comments WHITE BLOOD CELL COUNT (BEAKER) (test jjmp=217) 5.8 K/ L 3.5-10.5 RED BLOOD CELL COUNT (BEAKER) (test oaic=663) 3.54 M/ L 3.93-5.22 HEMOGLOBIN (BEAKER) (test eydk=568) 11.0 GM/DL 11.2-15.7 HEMATOCRIT (BEAKER) (test wedq=211) 33.7 % 34.1-44.9 MEAN CORPUSCULAR VOLUME (BEAKER) (test vhjm=328) 95.2 fL 79.4-94.8 MEAN CORPUSCULAR HEMOGLOBIN (BEAKER) (test 31.1 pg 25.6-32.2 nzpg=697) MEAN CORPUSCULAR HEMOGLOBIN CONC (BEAKER) (test 32.6 GM/DL 32.2-35.5 pxti=938) RED CELL DISTRIBUTION WIDTH (BEAKER) (test 13.0 % 11.7-14.4 cvab=385) PLATELET COUNT (BEAKER) (test sytw=888) 202 K/CU MM 150-450 MEAN PLATELET VOLUME (BEAKER) (test yjjc=623) 10.7 fL 9.4-12.3 NUCLEATED RED BLOOD CELLS (BEAKER) (test 0 /100 WBC 0-0 kieb=688) NEUTROPHILS RELATIVE PERCENT (BEAKER) (test 71 % kqnh=996) LYMPHOCYTES RELATIVE PERCENT (BEAKER) (test 14 % lnvx=580) MONOCYTES RELATIVE PERCENT (BEAKER) (test 13 % nubh=576) EOSINOPHILS RELATIVE PERCENT (BEAKER) (test 2 % rfaa=403) BASOPHILS RELATIVE PERCENT (BEAKER) (test 0 % rrmd=742) NEUTROPHILS ABSOLUTE COUNT (BEAKER) (test 4.08 K/ L 1.56-6.13 wnxj=620) LYMPHOCYTES ABSOLUTE COUNT (BEAKER) (test 0.80 K/ L 1.18-3.74 ahgx=579) MONOCYTES ABSOLUTE COUNT (BEAKER) (test 0.76 K/ L 0.24-0.36 dwwf=355) EOSINOPHILS ABSOLUTE COUNT (BEAKER) (test 0.10 K/ L 0.04-0.36 yjlp=550) BASOPHILS ABSOLUTE COUNT (BEAKER) (test 0.02 K/ L 0.01-0.08 wubg=165) IMMATURE GRANULOCYTES-RELATIVE PERCENT (BEAKER) 0 % 0-1 (test zrae=9023) BASIC METABOLIC [id number] 16:02:00 Test Item Value Reference Range Comments SODIUM (BEAKER) (test 129 meq/L 136-145 hiqs=248) POTASSIUM (BEAKER) (test 3.7 meq/L 3.5-5.1 bilq=275) CHLORIDE (BEAKER) (test 97 meq/L 98-107 ahht=442) CO2 (BEAKER) (test 22 meq/L 22-29 bgyq=859) BLOOD UREA NITROGEN 16 mg/dL 7-21 (BEAKER) (test zwdh=674) CREATININE (BEAKER) (test 1.12 mg/dL 0.57-1.25 xkzy=044) GLUCOSE RANDOM (BEAKER) 116 mg/dL 70-105 (test yvsr=203) CALCIUM (BEAKER) (test 10.0 mg/dL 8.4-10.2 rvqv=909) EGFR (BEAKER) (test 47 mL/min/1.73 sq m ESTIMATED GFR IS NOT uban=3240) ACCURATE CREATININE CLEARANCE IN PREDICTING GLOMERULAR FILTRATION RATE. ESTIMATED GFR IS NOT APPLICABLE FOR DIALYSIS PATIENTS. CBC W/PLT COUNT & AUTO [id number] 15:31:00 Test Item Value Reference Range Comments WHITE BLOOD CELL COUNT (BEAKER) (test fcyd=895) 8.2 K/ L 3.5-10.5 RED BLOOD CELL COUNT (BEAKER) (test ilft=058) 4.14 M/ L 3.93-5.22 HEMOGLOBIN (BEAKER) (test mqek=772) 13.0 GM/DL 11.2-15.7 HEMATOCRIT (BEAKER) (test rlzy=058) 39.1 % 34.1-44.9 MEAN CORPUSCULAR VOLUME (BEAKER) (test vybm=789) 94.4 fL 79.4-94.8 MEAN CORPUSCULAR HEMOGLOBIN (BEAKER) (test 31.4 pg 25.6-32.2 aqrj=328) MEAN CORPUSCULAR HEMOGLOBIN CONC (BEAKER) (test 33.2 GM/DL 32.2-35.5 qmvv=204) RED CELL DISTRIBUTION WIDTH (BEAKER) (test 12.8 % 11.7-14.4 odlf=354) PLATELET COUNT (BEAKER) (test rekr=886) 228 K/CU MM 150-450 MEAN PLATELET VOLUME (BEAKER) (test wuxv=722) 10.3 fL 9.4-12.3 NUCLEATED RED BLOOD CELLS (BEAKER) (test 0 /100 WBC 0-0 mngt=028) NEUTROPHILS RELATIVE PERCENT (BEAKER) (test 80 % psnj=915) LYMPHOCYTES RELATIVE PERCENT (BEAKER) (test 10 % eugs=155) MONOCYTES RELATIVE PERCENT (BEAKER) (test 9 % lteb=747) EOSINOPHILS RELATIVE PERCENT (BEAKER) (test 0 % mfqp=925) BASOPHILS RELATIVE PERCENT (BEAKER) (test 0 % ztzt=046) NEUTROPHILS ABSOLUTE COUNT (BEAKER) (test 6.59 K/ L 1.56-6.13 msjt=407) LYMPHOCYTES ABSOLUTE COUNT (BEAKER) (test 0.86 K/ L 1.18-3.74 bocg=520) MONOCYTES ABSOLUTE COUNT (BEAKER) (test 0.70 K/ L 0.24-0.36 sovt=992) EOSINOPHILS ABSOLUTE COUNT (BEAKER) (test 0.03 K/ L 0.04-0.36 ghob=646) BASOPHILS ABSOLUTE COUNT (BEAKER) (test 0.02 K/ L 0.01-0.08 nzie=966) IMMATURE GRANULOCYTES-RELATIVE PERCENT (BEAKER) 0 % 0-1 (test esum=6315)
--- OUTSIDE RECORDS SUMMARY | 2019-02-05 17:38 | XMS REPORT | Clinical Summary ---
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 Chest pain [...] to arrival; NSTEMI (non-ST elevated myocardial infarction) ([facility]); Josselyn, Paroxysmal atrial fibrillation (HCC); MD Fabien Delirium; Cognitive impairment after 02/04/2018 Social History Tobacco Use Types Packs/Day Years [...] Diagnosis VASCULAR DIAGRAM -SCAN 05/01/2018 2:01 PM JUDICIAL CLERK PERIPHERAL VASCULAR 04/24/2018 11:01 REPORT - SCAN [...] 368 ms QTC Calculation(Bazett) 509 ms R [place] 54 degrees T [place] 181 degrees Atrial fibrillation with rapid ventricular [...] 350 ms QTC Calculation(Bazett) 464 ms P [place] 52 degrees R [place] 27 degrees T [place] [address] & T [...] (7) Routine 02/14/2018 3:25 PM CDT after 02/04/2018 Results VASCULAR DIAGRAM -SCAN (05/01/2018 2:01 PM JUDICIAL CLERK)Only the most recent of2 resultswithin the time [...] included. WBC 10.1 3.5 - 10.5 K/L [facility] RBC 3.36 (L) 3.93 - 5.22 M/L [facility] Hemoglobin 10.6 (L) 11.2 - 15.7 GM/DL [facility] Hematocrit 33.4 (L) 34.1 - 44.9 % [facility] MCV 99.4 (H) 79.4 - 94.8 fL [facility] MCH 31.5 25.6 - 32.2 pg [facility] MCHC 31.7 (L) 32.2 - 35.5 GM/DL [facility] RDW 13.2 11.7 - 14.4 % [facility] Platelets 206 150 - 450 K/CU MM [facility] MPV 11.1 9.4 - 12.3 fL [facility] nRBC 0 0 - 0 /100 WBC [facility] % Neutros 78 % [facility] % Lymphs 12 % [facility] % Monos 7 % [facility] % Eos 2 % [facility] % Baso 0 % [facility] # Neutros 7.86 (H) 1.56 - 6.13 K/L [facility] # Lymphs 1.21 1.18 - 3.74 K/L [facility] # Monos 0.73 (H) 0.24 - 0.36 K/L [facility] # Eos 0.19 0.04 - 0.36 K/L [facility] # Baso 0.04 0.01 - 0.08 K/L [facility] Immature Granulocytes-Relative 0 0 - 1 % [facility] Specimen Blood Performing Organization Address City/[facility]/Zipcode Phone Number [facility] [address] [place] [phone] [place] Basic Metabolic Panel (02/22/2018 5:58 AM CDT)Only the most recent of9 resultswithin the time period is included. Sodium 134 (L) 136 - 145 meq/L [facility] Potassium 4.5Comment: Specimen slightly 3.5 - 5.1 meq/L [facility] hemolyzed [facility] Chloride 108 (H) 98 - 107 meq/L [facility] CO2 18 (L) 22 - 29 meq/L [facility] BUN 15 7 - 21 mg/dL [facility] Creatinine 1.04Comment: Specimen 0.57 - 1.25 mg/dL [facility] slightly hemolyzed [facility] Glucose 117 (H) 70 - 105 mg/dL [facility] Calcium 8.8 8.4 - 10.2 mg/dL [facility] EGFR 51Comment: ESTIMATED GFR IS mL/min/1.73 sq m [facility] NOT ACCURATE CREATININE [facility] CLEARANCE IN PREDICTING GLOMERULAR FILTRATION RATE. ESTIMATED GFR IS NOT APPLICABLE FOR DIALYSIS PATIENTS. Specimen Blood Performing Organization Address City/[facility]/Zipcode Phone Number [place] [phone] [place] [address] [place] ECHOCARDIOGRAM REPORT - SCAN (02/20/2018 10:20 AM CDT) Narrative Performed At Magnesium (02/20/2018 7:17 AM CDT)Only the most recent of5 resultswithin the time period is included. Magnesium 2.2 1.6 - 2.6 mg/dL [facility] CENTER Specimen Blood Performing Organization Address City/State/Zipcode Phone Number [facility] [address] [place] [address] CENTER Limited 2D Echocardiogram (02/19/2018 4:57 PM CDT) Ejection Fraction [facility] Specimen Narrative Performed At Transthoracic Echocardiography Report (TTE) [facility]ART[facility] Demographics Patient Name CASEY LYONS Date of Study 02/19/2018 JOSÉ MANUEL [id number] GenderFemale Visit Number [id number] Room Number 2427 Number Date of Birth1935Referring Physician Cherie Marin Age82 year(s)[facility]ie [facility]a [facility] denisha Adams, Physician Procedure Type [...] by Christy's method of disk assessment is cdtzrg-mv-pyxdeqdlgi reduced (40%) . Previous Study Compared to [...] Christy's method of disk as sessment is lodfpy-hj-bfwtoxmhmv reduced (40%) . Left AtriumLA size is [...] 02/19/2018 JOSÉ MANUEL Gender Female Visit Number [id number] Race Room Number 2427 Number Date of 1935 Referring Physician Cherie Marin Age 82 year(s) Bookie Musa Malone Interpreting Physician SAULO Sultana Procedure [...] by Christy's method of disk assessment is pjyjyu-my-ufznfdgjxu reduced (40%) . Previous Study Compared to [...] by Christy's method of disk assessment is gvkshh-mo-rbrerpwmty reduced (40%) . Left Atrium LA size [...] Performing Organization Address City/State/Zipcode Phone Number [facility] CBC (hemogram only) (02/19/2018 5:17 AM CDT)Only the most recent of2 resultswithin the time period is included. WBC 8.9 3.5 - 10.5 K/L [facility] RBC 3.46 (L) 3.93 - 5.22 M/L [facility] Hemoglobin 11.0 (L) 11.2 - 15.7 GM/DL [facility] Hematocrit 33.3 (L) 34.1 - 44.9 % [facility] MCV 96.2 (H) 79.4 - 94.8 fL [facility] MCH 31.8 25.6 - 32.2 pg [facility] MCHC 33.0 32.2 - 35.5 GM/DL [facility] RDW 13.1 11.7 - 14.4 % [facility] Platelets 218 150 - 450 K/CU MM [facility] MPV 10.9 9.4 - 12.3 fL [facility] nRBC 0 0 - 0 /100 WBC [facility] Specimen Blood Performing Organization Address City/[facility]/Zipcode Phone Number [address] [address] [place] POC-Glucose meter (02/18/2018 1:58 PM CDT) POC-Glucose Meter 283 (H)Comment: TESTED AT 70 - 110 mg/dL [place] [address] Specimen Blood Performing Organization Address City/[facility] Phone Number [address] [address] [place] POC ACTIVATED CLOTTING TIME (02/17/2018 11:36 PM CDT)Only the most recent of4 resultswithin the time period is included. Activated Clotting Time 92Comment: TESTED AT sec [place] [address] Specimen Blood Performing Organization Address City/[facility]/Zipcode Phone Number [address] [address] [place] Troponin I (02/17/2018 10:59 AM CDT)Only the most recent of7 resultswithin the time period is included. Troponin I 3.94 (HH) 0.00 - 0.03 ng/mL [facility] Specimen Blood Narrative Performed At [facility] Troponin I (TnI) levels must be interpreted [...] disease, and persistent tachyarrhythmia. Performing Organization Address City/[facility] Centercode Phone Number [address] [address] CENTER aPTT (02/17/2018 10:59 AM CDT)Only the most recent of4 resultswithin the time period is included. PTT 98.3 (H) 22.5 - 36.0 seconds [facility] Specimen Blood Performing Organization Address [facility] Centercode Phone Number [address] [address] CENTER Potassium (02/17/2018 10:59 AM CDT) Potassium 4.0 3.5 - 5.1 meq/L [facility] Specimen Blood Performing Organization Address [facility] Phone Number [address] [address] CENTER PT/aPTT (02/17/2018 1:33 AM CDT)Only the most recent of3 resultswithin the time period is included. Protime 15.2 (H) 11.7 - 14.7 seconds [facility] INR 1.2 <=5.9 [facility] PTT 146.1 (H) 22.5 - 36.0 seconds [facility] Specimen Blood Narrative Performed At [facility] RECOMMENDED COUMADIN/WARFARIN INR THERAPY RANGES STANDARD DOSE: 2.0 - 3.0 Includes: PROPHYLAXIS for venous thrombosis, systemic embolization; TREATMENT for venous thrombosis and/or pulmonary embolus. HIGH RISK: Target INR is 2.5-3.5 for patients with mechanical heart valves. Performing Organization Address [facility]/Zipcode Phone Number [address] [address] [phone] [place] Prothrombin time/INR (02/17/2018 1:33 AM CDT)Only the most recent of3 resultswithin the time period is included. Protime 15.2 (H) 11.7 - 14.7 seconds [facility] INR 1.2 <=5.9 [facility] Specimen Blood Narrative Performed At [facility] RECOMMENDED COUMADIN/WARFARIN INR THERAPY RANGES STANDARD DOSE: 2.0 - 3.0 Includes: PROPHYLAXIS for venous thrombosis, systemic embolization; TREATMENT for venous thrombosis and/or pulmonary embolus. HIGH RISK: Target INR is 2.5-3.5 for patients with mechanical heart valves. Performing Organization Address [facility] Centercode Phone Number [address] [address] [place] ECHOCARDIOGRAM REPORT - SCAN (02/16/2018 4:00 PM CDT) Narrative Performed At B-type Natriuretic Factor (BNP) (02/16/2018 2:43 PM CDT) BNP 2,849 (H) 0 - 100 pg/mL [facility] Specimen Blood Narrative Performed At Please obtain with next scheduled blood draw- [facility] noNeed for extra poke Performing Organization Address City/[facility]/Zipcode Phone Number [place] [phone] [place] [address] [phone] CENTER Limited 2D Echocardiogram (02/16/2018 1:23 PM CDT) Ejection Fraction [facility]ART[facility] AC Immune [facility] Specimen Narrative Performed At Transthoracic Echocardiography Report (TTE) [facility] [facility] Demographics Patient Name ANAYA LYONSJOAN Date of Study 02/16/2018 JOSÉ MANUEL [id number] GenderFemale Visit Number [id number] Room Number 7517 Number Date of Birth1935Referring Physician Can Hernandez Age82 year(s)Bookie Xochitl Meyer, [facility] AnalystAlex Physician SAULO Nichole Procedure Type of [...] 02/16/2018 JOSÉ MANUEL Gender Female Visit Number [id number] Race Room Number 7517 Number Date of 1935 Referring Physician Can Hernandez Age 82 year(s) Bookie Xochitl Meyer, [facility] Gaming Worker Allen Finney Interpreting Physician SAULO Sultana Procedure [...] cm Performing Organization Address City/State/Zipcode Phone Number [facility] HEART[facility] MKGIUSEPPE [facility] Carotid doppler bilateral (02/16/2018 1:15 PM CDT) Ejection Fraction [facility] Specimen Impressions Performed At Right Impression [facility] 1. There is 50-69% diameter reduction [...] Performed At LAB - Carotid Duplex Study [facility]ART[facility] Demographics Patient NameSTOVER, COLETTADate of Study 02/16/2018 JOSÉ MANUEL Age 82 Visit [id number] GenderFemale Date of 1935 [facility] Number 9565 Physician Bookie Tomy Yan MD RVSPhysicibryson Ye RVT Procedure [...] 02/16/2018 JOSÉ MANUEL Age 82 Visit Number [id number] Gender Female Accession Number [id number] Date of 1935 Referring [facility] Room Number 7517 Physician Bookie Tomy Garcia Interpreting Baldev Yan MD RVS [...] CDT) Specimen Narrative Performed At FINAL REPORT [facility] HISTORY : chest pain. Comparison: Chest x-ray [...] MD Report Verified Date/Time:02/16/2018 11:13:08 Reading Location: [facility] Radiology Reading Room Procedure Note Interface, External [...] Report Verified Date/Time: 02/16/2018 11:13:08 Reading Location: [facility] Radiology Reading Room Performing Organization Address City/State/Zipcode Phone Number RIS Platelet count (02/16/2018 8:30 AM CDT) Platelets 230 150 - 450 K/CU MM [facility] Specimen Blood Performing Organization Address City/State/Zipcode Phone Number [place] [phone] [place] [address] brain without IV contrast portable (02/16/2018 5:45 AM CDT) Specimen Narrative Performed At FINAL REPORT [facility] EXAM: CT head without contrast, portable. CLINICAL [...] MD Report Verified Date/Time:02/16/2018 06:53:18 Reading Location: [address] Transitional Reading Room Procedure Note Interface, [...] Report Verified Date/Time: 02/16/2018 06:53:18 Reading Location: [address] Transitional Reading Room Performing Organization Address City/State/Zipcode Phone Number [employer] ECG 12 lead (02/16/2018 4:16 AM CDT)Only the most recent of3 resultswithin the time period is included. Specimen Narrative Performed At Ventricular Rate 119 BPM GE MUSE Atrial Rate 111 BPM QRS Duration 88 ms Q-T Interval 350 ms QTC Calculation(Bazett) 492 ms R [place] 47 degrees T [place] 143 degrees Atrial fibrillation with rapid ventricular [...] 350 ms QTC Calculation(Bazett) 492 ms R [place] 47 degrees T [place] 143 degrees Atrial fibrillation with rapid ventricular response T wave inversion lateral leads consider postischemic changes Prolonged QT Abnormal ECG When compared with ECG of 16-FEB-2018 00:20, No significant changes Confirmed by MD KILLIAN YOCHAI ([id number]) on 02/17/2018 6:37:12 AM Performing Organization Address City/State/Zipcode Phone Number [employer] ECHOCARDIOGRAM REPORT - SCAN (02/15/2018 8:00 PM CDT) Narrative Performed At 2D Echo W/Doppler(CW/PW/Color) (02/15/2018 11:45 AM CDT) Ejection [facility] ECHO HEARTLAB [facility] Specimen Narrative Performed At Transthoracic Echocardiography Report (TTE) [facility]CHO HEARTLAB [facility] Demographics Patient Name CASEY LYONS Date of Study 02/15/2018 JOSÉ MANUEL [id number] GenderFemale Visit Number [id number] Unknown [id number] Room Number 7517 Number Date of Birth1935Referring Physician Barrett Barreto Age82 year(s)Bookie Belia Ham, [facility] AnalystIzoPhysician SAULO Kathleen Procedure Type of Study [...] mid to apical inferolateral appear severely hypokinetic. [place] is forshortened but appears hypokinetic. Previous Study [...] to apical in ferolateral appear severely hypokinetic. [place] is fo rshortened but appears hypokinetic. Se [...] 02/15/2018 JOSÉ MANUEL Gender Female Visit Number [id number] Race Unknown Room Number 7517 Number Date of 1935 Referring Physician Barrett Barreto Age 82 year(s) Bookie Belia Ham, [facility] Gaming Worker [employer] Interpreting Brenda Payne Physician Procedure [...] mid to apical inferolateral appear severely hypokinetic. [place] is forshortened but appears hypokinetic. Previous Study [...] mid to apical inferolateral appear severely hypokinetic. [place] is forshortened but appears hypokinetic. Septal motion [...] LVOT CI: 2.92 l/min/m^2 Performing Organization Address City/[facility] Centercode Phone Number [facility] ECHO HEARTLAB [facility] Vitamin B12 and Folate (02/15/2018 4:20 AM CDT) Vitamin B12 1,440 (H) 213 - 816 pg/mL [facility] Folate 7.6 >=7.0 ng/mL [facility] Specimen Blood Performing Organization Address City/State/Zipcode Phone Number [address] [address] [phone] CENTER RPR (02/15/2018 4:20 AM CDT) RPR Nonreactive Nonreactive [facility] Specimen Blood Performing Organization Address City/[facility]/Zipcode Phone Number [address] [phone] [place] TSH (02/15/2018 4:20 AM CDT) TSH 0.94 0.35 - 4.94 uIU/mL [facility] Specimen Blood Performing Organization Address City/State/[facility] Centercode Phone Number [address] [address] [place] Hemoglobin A1c (02/15/2018 4:20 AM CDT) Hemoglobin A1C 5.4 4.3 - 6.1 % [facility] Specimen Blood Performing Organization Address [facility] Centercode Phone Number [address] [address] [place] Lipid panel (02/15/2018 4:20 AM CDT) Triglycerides 137Comment: Specimen slightly mg/dL [facility] Cholesterol 155Comment: Specimen slightly mg/dL [facility] HDL 59 mg/dL [facility] LDL Calculated 69 mg/dL [facility] Specimen Blood Narrative Performed At [facility] Triglyceride Reference Range: Low Risk <150 Herauxidqi187-683 High Risk 200-499 Very High Risk>=500 Cholesterol Reference Range: Low Risk <200 Dpmityfmvv114-772 High Risk>240 HDL Cholesterol Reference Range: Low Risk >=60 High Risk <40 LDL Cholesterol Reference Range: Optimal<100 Near Ilptcno886-417 Tsggyxrtls187-462 Eblx249-040 Very High >=190 Performing Organization Address City/State/Zipcode Phone Number [address] [address] [phone] CENTER after 02/04/2018 Insurance Payer Benefit Plan / Group Subscriber ID Type Phone Address MEDICARE MEDICARE A B xxxxxxxxxx Medicare MCR SUPPLEMENT/INDIVIDUAL AARP/[facility] xxxxxxxxxxx [address]igap [address] (Home) [place] [address] Advance Directives Patient has advance care planning documents, and code status on file. For more information, please contact:[place] [id number] [place], [place] [phone] Code Status Date Activated Date Inactivated Comments [...]
--- NOTE | 2019-02-05 20:30 | RAD REPORT ---
EXAM DESCRIPTION: US - Lower Extremity Arterial Bilat - 02/05/2019 8:09 pm CLINICAL HISTORY: painful LLE, nonpalpable pulse Leg pain COMPARISON: No comparisons TECHNIQUE: Bilateral lower extremity arterial Doppler examination was performed with donny castelan. FLORECITA measurements were not requested. FINDINGS: Right common femoral artery demonstrates biphasic waveform. [place] right superficial femoral artery s hows no flow. Distal right SFA shows a diseased monophasic waveform. Popliteal artery demonstrates mo nophasic waveform. Monophasic waveform seen in the right dorsalis pedis artery. Diffuse monophasic waveform is seen throughout the entire left lower extremity arterial system with a lmost no flow visible in the left popliteal artery, posterior tibial artery and dorsalis pedis artery . IMPRESSION: There is no appreciable flow seen in the left popliteal artery and distal.
[2019-02-05 21:01] LABS: MPV 8.6 fL (7.6-11.3); RBC Red Blood Cell Count 2.33 M/uL (3.86-4.86)
[2019-02-05 21:12] LABS: Protime INR 1.64
[2019-02-05 21:24] LABS: Albumin 2.7 g/dL (3.4-5.0); Bilirubin Total 0.3 mg/dL (0.2-1.0); Potassium 5.1 mmol/L (3.5-5.1)
[2019-02-05] MEDS ORDERED: MORPHINE 2 MG/ML SYR ONE (21:26)
[2019-02-05] MEDS ORDERED: ONDANSETRON 4 MG/2 ML VIAL ONE (21:26)
[2019-02-05] MEDS ORDERED: HEPARIN/D5W 25,000 UNIT/500 ML BAG IV ONE (21:52)
[2019-02-05 22:26] LABS: Absolute Lymphocytes (CBC) 1.2 K/uL (0.7-4.9); Basophils % 0.3 % (0-1.3); Lymphocytes % 13.4 % (15.3-44.8)
[2019-02-05 22:29] LABS: Magnesium 2.2 mg/dL (1.8-2.4); NT PRO-BNP 8778 pg/mL (<450); Troponin (Emerg Dept Use Only) < 0.02 ng/mL (0.0-0.045)
--- NOTE | 2019-02-06 00:21 | ER ---
Nurse's Notes [facility] Name: Casey Lyons Age: 83 yrs Sex: Female : 1935 Arrival Date: 02/05/2019 Time: 17:20 Bed 27 Private MD: Diagnosis: Arterial occulsion of femoral artery;arterial occlusion of tibial artery Presentation: 02/05 17:30 Presenting complaint: Patient states: left calf/lower leg pain for the last 10 days, la1 seen here earlier this week but pain has gotten worse and having more trouble ambulating. Transition of care: patient was not received from another setting of care. Onset of symptoms was February 05, 2019. Risk Assessment: Do you want to hurt yourself or someone else? Patient reports no desire to harm self or others. Initial Sepsis Screen: Does the patient meet any 2 criteria? No. Patient's initial sepsis screen is negative. Does the patient have a suspected source of infection? No. Patient's initial sepsis screen is negative. Care prior to arrival: None. 17:30 Method Of Arrival: Wheelchair la1 17:30 Acuity: CLINT 3 la1 Historical: - Allergies: 17:29 No Known Allergies; la1 - PMHx: 17:29 Cellulitis of Leg; Crohn's; Hypertension; High Cholesterol; la1 - Immunization history:: Adult Immunizations up to date. - Social history:: Smoking status: Patient/guardian denies using tobacco, the patient reports quitting approximately 19 years ago. - Ebola Screening: : No symptoms or risks identified at this time. Screenin:51 Abuse screen: Denies threats or abuse. Denies injuries from another. Nutritional ph screening: No deficits noted. Tuberculosis screening: No symptoms or risk factors identified. Fall Risk Fall in past 12 months (25 points). No secondary diagnosis (0 pts). IV access (20 points). Ambulatory Aid- None/Bed Rest/Nurse Assist (0 pts). Gait- Impaired (20 pts.). Mental Status- Oriented to own ability (0 pts). Total Yoo Fall Scale indicates High Risk Score (45 or more points). Fall prevention measures have been instituted. Side Rails Up X 2 Placed Close to Nursing Station Frequent Obs/Assessments Occuring Family Present and informed to notify staff if the need to leave the bedside As available patient and family educated on Fall Prevention Program and Strategies. Assessment: 18:50 General: Appears in no apparent distress. comfortable, slender, well groomed, Behavior ph is calm, cooperative, appropriate for age, Denies fever, feeling ill. Pain: Complains of pain in left calf. Neuro: Level of Consciousness is awake, alert, obeys commands, Oriented to person, place, time, situation. Cardiovascular: Denies chest pain, lightheadedness, shortness of breath, Capillary refill < 3 seconds in bilateral fingers toes Patient's skin is warm and dry. Pulses are palpable in right dorsalis pedis artery and left dorsalis pedis artery. Respiratory: Airway is patent Respiratory effort is even, unlabored, Respiratory pattern is regular, symmetrical. GI: No signs and/or symptoms were reported involving the gastrointestinal system. Derm: Skin is intact, Skin is pink, warm \T\ dry. Musculoskeletal: Circulation, motion, and sensation intact. Range of motion: intact in all extremities, Swelling absent. 19:00 Reassessment: Dr. Andujar is at the bedside. jb4 19:05 Reassessment: Patient appears in no apparent distress at this time. Patient and/or jb4 family updated on plan of care and expected duration. Pain level reassessed. Patient is alert, oriented x 3, equal unlabored respirations, skin warm/dry/pink. PT left lower extremity is pale and cold to the touch, Pedal pulses in the right foot are noted as 3+, Pedal pulse in the left is noted at 1+. Pt reports pain with movent. 19:30 Reassessment: Patient appears in no apparent distress at this time. Patient and/or jb4 family updated on plan of care and expected duration. Pain level reassessed. Patient is alert, oriented x 3, equal unlabored respirations, skin warm/dry/pink. 19:47 Reassessment: PT to ultrasound. jb4 20:30 Reassessment: Patient appears in no apparent distress at this time. Patient and/or jb4 family updated on plan of care and expected duration. Pain level reassessed. Patient is alert, oriented x 3, equal unlabored respirations, skin warm/dry/pink. 21:10 Reassessment: Patient appears in no apparent distress at this time. Patient and/or jb4 family updated on plan of care and expected duration. Pain level reassessed. Patient is alert, oriented x 3, equal unlabored respirations, skin warm/dry/pink. Pt refused 2nd IV site, Heparin held until after CT, provider notified. 21:38 Reassessment: Pt to Ct. jb4 22:00 Reassessment: Pt reports sudden onset chest pain, described as pressure pain that daniel radiates to her back, rated at 7/10, reports shortness of breath. EKG done, provider notified, O2 100 on RA, breath sounds are CTA RADAMES. EKG read normal sinus rhythm. placed on cardiac monitoring, see MAR for additional orders. Respiratory: Airway is patent Respiratory effort is even, labored, Respiratory pattern is symmetrical, tachypnea. 22:30 Reassessment: Patient appears in no apparent distress at this time. Patient and/or jb4 family updated on plan of care and expected duration. Pain level reassessed. Patient is alert, oriented x 3, equal unlabored respirations, skin warm/dry/pink. Pt denies further chest pain, reports increased pain and increase in feeling cold in her left leg. Provider notified, no new orders at this time. 23:15 Reassessment: Patient appears in no apparent distress at this time. Patient and/or jb4 family updated on plan of care and expected duration. Pain level reassessed. Patient is alert, oriented x 3, equal unlabored respirations, skin warm/dry/pink. Family is at the bedside. Patient states feeling better. 02/06 00:24 Reassessment: Patient appears in no apparent distress at this time. Patient and/or jb4 family updated on plan of care and expected duration. Pain level reassessed. Patient is alert, oriented x 3, equal unlabored respirations, skin warm/dry/pink. Transfer consent form signed. Patient states feeling better. 00:40 Reassessment: Report called to GLORIA Damon at [facility]. jb4 01:23 Reassessment: Patient appears in no apparent distress at this time. Patient and/or jb4 family updated on plan of care and expected duration. Pain level reassessed. Patient is alert, oriented x 3, equal unlabored respirations, skin warm/dry/pink. Report given to [facility], pt loaded and prepped for transfer. 20g to RAC saline lock, Heparin infusing at 22ml/hr (1100units/ hr) through 22g in LAC. Vital Signs: 02/05 17:31 Pulse 58; Resp 16; Temp 98.3(O); Pulse Ox 100% on R/A; Weight 58.97 kg; la1 17:33 BP 123 / 94; la1 19:30 BP 160 / 40; Pulse 59; Resp 18; Pulse Ox 94% on R/A; jb4 20:40 BP 153 / 108; Pulse 63; Resp 18; Pulse Ox 100% on R/A; jb5 21:30 BP 161 / 73; Pulse 63; Resp 16; Pulse Ox 100% on R/A; jb4 22:15 BP 193 / 52; Pulse 70; Resp 16; Pulse Ox 100% on R/A; jb4 22:30 BP 180 / 61; Pulse 61; Resp 22; Pulse Ox 100% on R/A; jb4 23:15 BP 147 / 66; Pulse 66; Resp 15; Pulse Ox 100% on R/A; jb4 02/06 00:24 BP 132 / 47; Pulse 63; Resp 14; Temp 98.3(O); Pulse Ox 100% on R/A; jb4 00:40 BP 157 / 57; Pulse 63; Resp 15; Pulse Ox 100% on R/A; jb4 01:23 BP 160 / 53; Pulse 60; Resp 14; Pulse Ox 100% on R/A; jb4 ED Course: 02/05 17:20 Patient arrived in ED. as 17:31 Triage completed. la1 17:31 Arm band placed on left wrist. la1 17:41 Giovanna Kingston, RN is Primary Nurse. ph 18:52 Patient has correct armband on for positive identification. Placed in gown. Bed in low ph position. Call light in reach. Pulse ox on. NIBP on. Door closed. Noise minimized. Warm blanket given. Head of bed elevated. 18:56 Primary Nurse role handed off by Giovanna Kingston, GLORIA jb4 18:56 Baldev Damon, GLORIA is Primary Nurse. jb4 19:12 Jimmy Shrestha MD is Attending Physician. tw4 20:10 Lower Extremity Arterial Bilat US In Process Unspecified. EDMS 20:39 Inserted saline lock: 22 gauge in left antecubital area, using aseptic technique. jb5 20:46 Radiology exam delayed due to lab results not completed at this time. (BUN/Creatinine) nj IV insertion attempt and/or patient not having appropriate IV at this time. 20:56 PT-INR Sent. jb4 20:56 Ptt, Activated Sent. jb4 20:56 CMP Sent. jb4 21:08 Notified ED physician of a critical lab result(s). hgb-7.3. 21:18 Radiology exam delayed due to lab results not completed at this time. (BUN/Creatinine). nj 21:59 Lower Ext Angio In Process Unspecified. EDMS 22:30 Inserted saline lock: 20 gauge in right antecubital area, using aseptic technique. jb4 22:31 XRAY Chest (1 view) In Process Unspecified. EDMS 02/06 01:23 No provider procedures requiring assistance completed. Patient transferred, IV remains jb4 in place. Administered Medications: 02/05 21:30 Drug: Zofran 4 mg Route: IVP; Site: left antecubital; jb4 22:00 Follow up: Response: No adverse reaction jb4 21:36 Drug: morphine 2 mg {Note: Rass score 0, B/p prior to administration 161/73.} Route: jb4 IVP; Site: left antecubital; 22:00 Follow up: Response: No adverse reaction; Pain is decreased; RASS: Alert and Calm (0) jb4 22:05 Drug: Heparin (DVT/PE Drip) 18 units/kg/hr - (HEParin 94451 units, D5W 500 ml) jb4 {Co-Signature: arnold (Hali Goldstein RN).} Route: IV; Rate: calculated rate; Site: left antecubital; 02/06 01:30 Follow up: Response: No adverse reaction; IV Status: Infusion continued upon transfer jb4 Outcome: 00:13 ER care complete, transfer ordered by . tw4 01:23 Transferred by ground EMS to [facility], Transfer form completed. jb4 01:23 Condition: stable 01:23 Discharge instructions given to patient, family, Instructed on the need for transfer, Demonstrated understanding of instructions. 01:31 Patient left the ED. jb4 Signatures: Dispatcher [employer] EDWI Amanda Driver RN RN fc Martinez, Amelia as Attema, Lee, RN RN Giovanna Bourne RN RN ph Bryson, James, RN RN jb4 Sharan Mg Jennifer jb5 Jimmy Shrestha MD MD tw4 Hali Goldstein RN ak1 Corrections: (The following items were deleted from the chart) 02/05 22:15 20:56 CBC without Diff+H.LAB.BRZ drawn and sent. jb4 EDMS
--- NOTE | 2019-02-06 00:22 | EDPHYS ---
Physician Documentation [facility] Name: Casey Lyons Age: 83 yrs Sex: Female : 1935 Arrival Date: 02/05/2019 Time: 17:20 Bed 27 Private MD: ED Physician Jimmy Shrestha HPI: 02/05 23:20 This 83 yrs old Female presents to ER via Wheelchair with complaints of Leg tw4 Pain. 23:20 The patient presents with pain, that is acute. The complaints affect the left tw4 quadriceps, left knee and left sesay. Onset: The symptoms/episode began/occurred today. Modifying factors: The symptoms are alleviated by nothing. the symptoms are aggravated by nothing. The patient has not experienced similar symptoms in the past. Historical: - Allergies: 17:29 No Known Allergies; la1 - PMHx: 17:29 Cellulitis of Leg; Crohn's; Hypertension; High Cholesterol; la1 - Immunization history:: Adult Immunizations up to date. - Social history:: Smoking status: Patient/guardian denies using tobacco, the patient reports quitting approximately 19 years ago. - Ebola Screening: : No symptoms or risks identified at this time. ROS: 23:20 Constitutional: Negative for fever, chills, and weight loss, Eyes: Negative for injury, tw4 pain, redness, and discharge, Cardiovascular: Negative for chest pain, palpitations, and edema, Respiratory: Negative for shortness of breath, cough, wheezing, and pleuritic chest pain, Abdomen/GI: Negative for abdominal pain, nausea, vomiting, diarrhea, and constipation, Back: Negative for injury and pain, Skin: Negative for injury, rash, and discoloration, Neuro: Negative for headache, weakness, numbness, tingling, and seizure. 23:20 MS/extremity: Positive for pain, cool extremity. Exam: 23:20 Constitutional: This is a well developed, well nourished patient who is awake, alert, tw4 and in no acute distress. Head/Face: Normocephalic, atraumatic. Chest/axilla: Normal chest wall appearance and motion. Nontender with no deformity. No lesions are appreciated. Cardiovascular: Regular rate and rhythm with a normal S1 and S2. No gallops, murmurs, or rubs. Normal PMI, no JVD. No pulse deficits. Respiratory: Lungs have equal breath sounds bilaterally, clear to auscultation and percussion. No rales, rhonchi or wheezes noted. No increased work of breathing, no retractions or nasal flaring. Abdomen/GI: Soft, non-tender, with normal bowel sounds. No distension or tympany. No guarding or rebound. No evidence of tenderness throughout. Back: No spinal tenderness. No costovertebral tenderness. Full range of motion. 23:20 Musculoskeletal/extremity: Extremities: noted in the left leg: pain. Vital Signs: 17:31 Pulse 58; Resp 16; Temp 98.3(O); Pulse Ox 100% on R/A; Weight 58.97 kg; la1 17:33 BP 123 / 94; la1 19:30 BP 160 / 40; Pulse 59; Resp 18; Pulse Ox 94% on R/A; jb4 20:40 BP 153 / 108; Pulse 63; Resp 18; Pulse Ox 100% on R/A; jb5 21:30 BP 161 / 73; Pulse 63; Resp 16; Pulse Ox 100% on R/A; jb4 22:15 BP 193 / 52; Pulse 70; Resp 16; Pulse Ox 100% on R/A; jb4 22:30 BP 180 / 61; Pulse 61; Resp 22; Pulse Ox 100% on R/A; jb4 23:15 BP 147 / 66; Pulse 66; Resp 15; Pulse Ox 100% on R/A; jb4 02/06 00:24 BP 132 / 47; Pulse 63; Resp 14; Temp 98.3(O); Pulse Ox 100% on R/A; jb4 00:40 BP 157 / 57; Pulse 63; Resp 15; Pulse Ox 100% on R/A; jb4 01:23 BP 160 / 53; Pulse 60; Resp 14; Pulse Ox 100% on R/A; jb4 MDM: 02/05 19:08 ED course: Apologized to patient for long, wait, I was in with critical patient and got rn in as soon as possible, not picked up by mid-levels. Cool left lower leg, ultrasound arterial ordered given last week only venous side evaluated, and told family and patient that Dr. Shrestha is running late but will arrive shortly for formal evaluation.. 19:12 Patient medically screened. tw4 02/06 00:31 Data reviewed: vital signs, nurses notes. Counseling: I had a detailed discussion with [facility] the patient and/or guardian regarding: the historical points, exam findings, and any diagnostic results supporting the discharge/admit diagnosis. 00:55 Differential diagnosis: open fracture, closed fracture. Data interpreted: Pulse tw4 oximetry: Interpretation: normal. Test interpretation: by ED physician or midlevel provider: ECG. ED course: Pt's Ct angio of left lower extremity reveals occlusion of the left common femoral artery proximal to the bypass. Occlusion of the left superficial femoral artery and popliteal artery proximal to the distal bypass anastomosis . 01:14 ED course: Started pt on Heparin for treatment of arterial occlusion. Attempted to call [facility] pt's vascular surgeon at [address] [facility], unsuccessful. will transfer to [facility] for higher level of care for vascular arterial occlusion. D/W Dr Arteaga (vascular) Dr Carsno (hospitalist) who agree to accept pt for transfer. 02/05 20:43 Order name: CMP; Complete Time: 22:04 [facility] 02/05 22:04 Interpretation: Normal except: BUN 44; CRE 1.62; GFR 30; NA 135. [facility] 02/05 20:46 Order name: PT-INR; Complete Time: 22:04 [facility] 02/05 22:05 Interpretation: Normal except: PT 19.0. [facility] 02/05 20:46 Order name: Ptt, Activated; Complete Time: 22:04 [facility] 02/05 19:07 Order name: Lower Extremity Arterial Bilat US; Complete Time: 20:41 rn 02/05 20:55 Order name: Lower Ext Angio EDMI 02/05 22:03 Order name: Magnesium; Complete Time: 22:52 [facility] 02/05 22:03 Order name: NT PRO-BNP; Complete Time: 22:52 [facility] 02/05 22:03 Order name: Troponin (emerg Dept Use Only); Complete Time: 22:52 [facility] 02/05 22:16 Order name: CBC with Automated Diff; Complete Time: 22:52 EDMI 02/05 22:53 Interpretation: WBC 9.2; HCT 22.0; HGB 7.3; RBC 2.33. [facility] 02/06 00:33 Order name: Type And Screen [facility] 02/05 20:10 Order name: IV Saline Lock; Complete Time: 20:44 tw 02/05 22:03 Order name: XRAY Chest (1 view) [facility] 02/05 22:03 Order name: EKG; Complete Time: 22:02/05 22:03 Order name: Cardiac monitoring; Complete Time: 22:02/05 22:03 Order name: EKG - Nurse/Tech; Complete Time: 22:06 4 02/05 22:03 Order name: Labs collected and sent; Complete Time: 22:02/05 22:03 Order name: O2 Per Protocol; Complete Time: 22:02/05 22:03 Order name: O2 Sat Monitoring; Complete Time: : EC:13 Rate is 71 beats/min. Rhythm is regular. QRS [place] is Normal. [place] interval is normal. QRS tw4 interval is normal. QT interval is normal. No Q waves. T waves are Inverted in leads II, III, aVF, V5, V6. No ST changes noted. Clinical impression: NSR w/ Non-specific ST/T Changes. Interpreted by me. Reviewed by me. Administered Medications: 02/05 21:30 Drug: Zofran 4 mg Route: IVP; Site: left antecubital; [facility] 22:00 Follow up: Response: No adverse reaction [facility] 21:36 Drug: morphine 2 mg {Note: Rass score 0, B/p prior to administration 161/73.} Route: jb4 IVP; Site: left antecubital; 22:00 Follow up: Response: No adverse reaction; Pain is decreased; RASS: Alert and Calm (0) [facility] 22:05 Drug: Heparin (DVT/PE Drip) 18 units/kg/hr - (HEParin 06511 units, D5W 500 ml) [facility] {Co-Signature: ak1 (Hali Goldstein RN).} Route: IV; Rate: calculated rate; Site: left antecubital; 02/06 01:30 Follow up: Response: No adverse reaction; IV Status: Infusion continued upon transfer jb4 Disposition: 02/06/19 00:13 Transfer ordered to [facility]. Diagnosis are Arterial occulsion of femoral artery, arterial occlusion of tibial artery. - Reason for transfer: Higher level of care. - Accepting physician is Dr Arteaga. - Condition is Stable. - Problem is new. - Symptoms are unchanged. Signatures: Dispatcher [employer] EDMI Leland Andujar MD MD rn Attema, Lee, RN RN la1 Baldev Damon RN RN jb4 Jimmy Shrestha MD MD tw4 Hali Goldstein RN ak1 Corrections: (The following items were deleted from the chart) 02/05 20:12 20:08 IV Saline Lock ordered. jb4 jb4 22:13 22:04 BASIC METABOLIC PANEL+C.LAB.BRZ ordered. EDMS EDMS 22:13 22:04 HEPATIC FUNCTION+C.LAB.BRZ ordered. EDMS EDMS 22:15 20:44 CBC without Diff+H.LAB.BRZ ordered. EDMS EDMS 22:15 22:04 CBC without Diff+H.LAB.BRZ reviewed. [facility] EDMS 22:15 22:04 Normal except: WBC 9.2; HGB 7.3; RBC 2.33; HCT 22.0. [facility] EDMS 22:15 22:04 CBC+H.LAB.BRZ ordered. [facility] EDMI 02/06 01:23 00:33 Blood Transfusion Consent ordered. [facility] jb4 01:31 00:13 02/06/2019 00:13 Transfer ordered to [facility]. Diagnosis is jb4 Arterial occulsion of femoral artery; arterial occlusion of tibial artery. Reason for transfer: Higher level of care. Accepting physician is Dr Arteaga. Condition is Stable. Problem is new. Symptoms are unchanged. 4
[2019-02-06 03:30] VITALS: TEMP 98.3
[2019-02-06 03:34] VITALS: O2SAT 100
[2019-02-06 03:43] VITALS: BP 160/53
--- NOTE | 2019-02-06 09:08 | EKG ---
Test Date: 2019-02-05 Test Time: 21:58:41 Safety Director: DEBBIE MEASUREMENT RESULTS: Intervals: Rate: 71 NE: 178 QRSD: 90 QT: 406 QTc: 441 Patterson: P: 67 NE: 178 QRS: 74 T: 225 INTERPRETIVE STATEMENTS: Normal sinus rhythm ST & T wave abnormality, consider inferolateral ischemia Abnormal ECG Compared to ECG 03/10/2018 13:17:35 ST (T wave) deviation now present Sinus bradycardia no longer present Sinus arrhythmia no longer present T-wave abnormality no longer present Possible ischemia still present Electronically Signed On 02-06-19 09:07:44 CDT by Luis Basilio
--- NOTE | 2019-02-06 12:02 | RAD REPORT ---
EXAM DESCRIPTION: RAD - Chest Single View - 02/05/2019 10:31 pm CLINICAL HISTORY: SOB Chest pain. COMPARISON: Chest Pa And Lat (2 Views) dated 05/19/2018; Chest Single View dated 02/14/2018; Chest Si ngle View dated 02/13/2018; CHEST PA AND LAT 2 VIEW dated 06/27/2015 FINDINGS: Portable technique limits examination quality. The lungs are grossly clear. The heart is mildly enlarged in size with a tortuous thoracic aorta. Sof t tissue fullness is seen in the right hilar region, unchanged.No displaced fracture evident.
--- NOTE | 2019-02-08 09:56 | RAD REPORT ---
EXAM DESCRIPTION: Lower Ext Angio CLINICAL HISTORY: 83 years Female, CHECK FOR BLOOD FLOW COMPARISON: None. TECHNIQUE: Multiple, helical axial tomographic images were obtained of the left lower extremity from the pelvis through the foot following administration of intravenous contrast using angiographic prot ocol. MIP reformatted images were obtained. This exam was performed according to our departmental dos e-optimization program, which includes automated exposure control, adjustment of the mA and/or kV acc ording to patient size and/or use of iterative reconstruction technique. FINDINGS: Atherosclerotic disease throughout the left lower extremity vasculature and also both alexis c arteries is demonstrated. Left iliac artery appears patent with mild narrowing. There is a short 1 cm segment of the left common femoral artery which appears occluded or severely na rrowed (series 603, image 28). There are changes of left superficial femoral to popliteal artery bypass with bypass vessel demonstra ting enhancement suggesting patency. The la posta left superficial femoral artery and popliteal artery proximal to the distal bypass anastomosis appear occluded. Short segment of the popliteal artery dist al to the bypass demonstrates enhancement. Left profunda femoral artery appears patent with scattered atherosclerotic plaque. Left anterior tibial artery appears occluded beginning at its origin. There is enhancement in the lef t peroneal and posterior tibial arteries to the level of the ankle. Plantar branches of the left post erior tibial artery demonstrate enhancement. Colonic diverticula are present. Post hysterectomy changes noted. IMPRESSION: 1. Changes of left superficial femoral to popliteal artery bypass appearing patent. 2. Short segment of either occlusion or severe stenosis involving the left common femoral artery prox imal to the bypass. 3. Occlusion of the left superficial artery and popliteal artery proximal to the distal bypass anasto mosis. 4. Left anterior tibial artery appears occluded. 5. Scattered atherosclerotic disease. THIS REPORT CONTAINS FINDINGS THAT MAY BE CRITICAL TO PATIENT CARE: The findings were verbally discu ssed via telephone conference with Dr. Shrestha by Dr. Gabriel at 2229 hours central time February 05, 2019. The results were acknowledged and understood. Electronically signed by: Lico Gabriel MD 02/05/2019 10:51 PM CDT Due to temporary technical issues with the PACS/Fluency reporting system, reports are being signed by the in house radiologist as a courtesy to ensure prompt reporting. The interpreting radiologist is f ully responsible for the content of the report.
== END 2019-02-06 01:31 | disposition short-term general hospital (02) ==
LOC: ER 17:19
DX: I70.202 Unspecified atherosclerosis of native arteries of extremities, left leg (principal)
CPT/HCPCS: 96365; 93005; 85025; 36415; 86900; 83735; 86850; 85610; 86901; 85730; 84484; 80053; 83880; 73706; 71045; 93925; 96375; 99285; 96366; Q9967; J2270; J2405

== ENCOUNTER 2019-03-01 13:08 | Inpatient (IN) | payer OTHER, MEDICARE ==
--- NOTE | 2019-03-02 13:43 | R.PREADM ---
SCREENING DATE AND TIME 03/01/2019 13:34 (CDT) ANTICIPATED REHAB ADMISSION DATE 03/03/2019 REFERRING FACILITY [facility] REFERRAL DATE AND TIME 03/01/2019 13:34 (CDT) ACUTE ADMIT DATE 02/05/2019 Previous Rehabilitation(s): No. ACUTE TELEVISION PRODUCTION CLERK/DC FRANCO Grimes [phone] REFERRING PHYSICIAN Baldev Santiago REHAB FACILITY [facility] CLINICAL LIAISON Kimmy Walker PHYSICIAN REVIEWER Dr. Jassi Gamboa M.D. MR# [id number] [place] [facility]# [id number] NAME CASEY ZAZUETA ADDRESS [address] [place] [address] PHONE [facility] [id number] DATE OF 1935 AGE 83 SSN# [id number] GENDER female MARITAL STATUS RACE white ADMIT FROM 02 - [facility] PRE-HOSPITAL LIVING SETTING 01 - Home (private home/apt. board/care, assisted living, fpc, transitional living) HOME TYPE AND DETAILS Type of home: single family house # of steps within the residence: 0 # of steps to enter the residence: 0 # of levels in the residence: 1 PRE-HOSPITAL LIVING WITH Family/Relatives FAMILY SUPPORT Yes PHONE PRIMARY FAMILY CONTACT ON ADM.? no IS PRIMARY FAMILY CONTACT AUTH. REP.? no PHONE 1ST CONTACT ON ADM. no IS 1ST CONTACT AUTH. REP.? no PHONE 2ND CONTACT ON ADM.? no PATIENT EMPLOYMENT STATUS Retired (for age) PATIENT EMPLOYER No Employer PAYOR INFORMATION: 1ST PAYOR NAME MEDICARE 1ST PAYOR PHONE 1ST PAYOR INJURY/ILLNESS DUE TO ACCIDENT? No ANOTHER [employer] RESPONSIBLE? 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 is a 83 yo Right-handed white female. On 02/05/2019 she was admitted to [facility] with diagnosis Peripheral arterial disease. Her impairment category is Medically Complex Conditions 17 - Circulatory Disorders (17.4). Pre-morbidly, Pt. was independent/mod-I in Self-Care, Sphincter Control, Transfers Control, Locomotio n, Communication, and Social Cognition; and she had good Sphincter Control. Currently, she has deficits of Self-Care, Transfers Control, Locomotion, Endurance, Balance, and Safe ty Awareness. Pt. is now referred to [facility] for acute in-patient rehabilitation in order to maximize patient's functional independence in activities of daily living, strength, ROM, and mobi lity. Patient has realistic goal of being discharged at assistance level 6-[place] to reside at Home with Fam gisell/Relatives. Casey Zazueta is an 83 old female that lives alone in a single terri house. Patient was independent with ADLs and household ambulation. On 02/06/2019, she had acute worsening of left lower extremity pain and was accompanied by motor deficit and sensory loss and absence of pedal signals and was admitted at [facility]. She is now medically stable but in need of 24-hour nursing, doctor supervision and oversite participate in 3hours of therapy a day/15 hours per week and receive care with an intensive interdisciplinary approach. 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 hypercholesteremia hypertension MEDICATION ALLERGIES: No Known Drug Allergies (NKDA) ENVIRONMENTAL ALLERGIES: - Substance Allergies None Known - Other Allergies None Known CODE STATUS: Full code WEIGHT/HEIGHT/BMI: WEIGHT 138 lbs HEIGHT 5' 3" BMI 24.4 DIET: - Diet Type Regular - Diet - Solid Texture Regular - Diet - Liquid Texture Regular - Tube Feed N/A REVIEW OF SYSTEMS: - Gen Alert and awake Lying in bed No apparent distress Oriented to: person, time, and place - Vital Signs Vital signs stable, afebrile - CVS RRR VITAL SIGNS Temperature: 98.6 F SBP/DBP: 185/79 Pulse: 66 Resp: 20 Vital signs stable, afebrile MEDICATIONS/TREATMENT: Other- See attached MAR (Medication Administration Record) Casey [email or web address].pdf. CURRENT SPHINCTER CONTROL: Pre-hospital bladder status: continent # of bladder accidents in the last 7 days prior to screenin Pre-hospital bowel status: continent # of bowel accidents in the last 7 days prior to screenin Last Bowel Movement Date: 03/01/2019 DETAILED CURRENT FUNCTIONAL STATUS: - Bladder accident frequency: Ind - No accidents in the past 7 days - Bowel accident frequency: Ind - No accidents in the past 7 days - Walking score based on distance walked: 1(<=50ft) - Wheelchair score based on distance traveled: 0(N/A) FUNCTIONAL STATUS: - Self-Care A. Eating Ind sup B. Grooming Ind sup C. Bathing Ind Marvel D. Dressing - Upper Ind sup E. Dressing - Lower Ind Al[place]f F. Toileting Ind Altaf - Sphincter Control G: Bladder control Ind Ind H: Bowel control Ind Ind - Transfers Control I. Bed/Chair/Wheelchair Ind [place] J. Toilet Ind [place]f K. Tub/Shower Ind ADNO - Locomotion L. Walk/Wheelchair (C) Ind [place] L. Walk/Wheelchair (W) Ind [place] M. Stairs Ind ADNO - Communication N. Comprehension (B) Ind Ind O. Expression (B) Ind Ind - Social Cognition P. Social Interaction Ind Ind Q. Problem Solving Ind Ind R. Memory Ind Ind - Endurance Poor - Balance Fair - Safety Awareness Fair CURRENT FUNC. DEFICITS: Self-Care, Transfers Control, Locomotion, Endurance, Balance, and Safety Awareness THERAPY NOTES FROM ACUTE CARE: Attached. SPECIAL NEEDS: - Safety Concerns Skin breakdown precautions needed due to skin breakdown risk PATIENT NEEDS ACTIVE AND ONGOING THERAPEUTIC INTERVENTION OF MULTIPLE THERAPY DISCIPLINES, INCLUDING: - Dietary and Nutrition Adequate Nutrition. Nutritional Education. Nutritional Supplements. PATIENT NEEDS CLOSE MEDICAL SUPERVISION BY A REHABILITATION PHYSICIAN FOR: Bowel and Bladder Management Coordination of Treatment Team Medical and Co-Morbidity Management PATIENT REQUIRES 24X7 REHAB NURSING FOR MEDICAL AND FUNCTIONAL MGT. OF THE FOLLOWING DEFICITS: ADL's Ambulation Bowel and Bladder Management Communication Disease Management Medication Management Patient/Family Education Providing Safe Environment Transfers PATIENT REQUIRES INTENSIVE, COORDINATED INTERDISCIPLINARY APPROACH TO REHAB: Arranging Home Equipment/Services Discharge Planning Family Intervention/Training Office Administration Instructor/Case Management PATIENT REHAB POTENTIAL: Kaitlin ZAZUETA is able and expected to receive 3 hours of individualized therapy daily on at least 5 of ev deo 7 days Kaitlin ZAZUETA's prognosis for significant practical improvement within a reasonable period of time appear s Good Expected level of measurable improvement will be of a practical value to Kaitlin ZAZUETA's functional capac ity or adaptations to impairments Has a viable Discharge Plan Medically appropriate; condition is sufficiently stable to participate in intensive rehab program DISCHARGE PLAN: - Estimated Length of Stay (days) 13. - Consensus on plan Discharge plan has been discussed with primary caregiver. Patient/Family is in agreement with the korina n. Primary caregiver is in agreement with the plan. - Patient/Family Goals Return home with assistance. - Planned Living Setting Upon Discharge Home, to live with Family/Relatives. Transitional Living. RECOMMENDED CARE LEVEL: IRF RECOMMENDATION DETAILS: Recommended Admission to Comprehensive Rehabilitation Program to Increase Functional [place] SCREENER'S COMPLETENESS CONFIRMATION: - Screening Confirmation The patient data collection on this preadmission screening form is finished PHYSICIANS REVIEW AND ADMISSION DETERMINATION Admit - Based on my review of the Pre-Admission Screening results, in my medical judgment and experie nce, I concur with the findings and recommend admission to [facility], as this patient requires an IRF level of care. SIGNATURE PANEL: Clinical Liaison - [electronically] signed by Kimmy Walker on 03/02/2019 at 12:09 (CDT) Physician Reviewer - [electronically] signed by Dr. Jassi Gamboa M.D. on 03/02/2019 at 13:42 (CDT )
--- OUTSIDE RECORDS SUMMARY | 2019-03-02 16:56 | XMS REPORT | Clinical Summary ---
:1935 Author Organization [facility] Address [address] [place] [address] Care Team Providers Name Role Phone Asked, No Pcp Primary Care Provider Unavailable Allergies No Known Allergies Medications Medication Sig Dispensed Refills Start End Date Status Date pantoprazole Take 40 mg by 0 Active (PROTONIX) 40 MG mouth daily. EC tablet rivaroxaban Take 15 mg by 0 Active (XARELTO) 15 mg mouth daily. tablet atorvastatin Take 80 mg by 0 Active (LIPITOR) 80 MG mouth daily. tablet cyanocobalamin Take 1,000 mcg 0 Active (VITAMIN B-12) by mouth daily. 1000 MCG tablet vitamin E 400 UNIT Take 400 Units 0 Active capsule by mouth daily. cholecalciferol, Take 2,000 Units 0 Active vitamin D3, by mouth daily. (VITAMIN D3) 2,000 unit capsule capsule DULoxetine Take 30 mg by 0 Active (CYMBALTA) 30 MG mouth daily. capsule mesalamine Take 375 mg by 0 Active (APRISO) 0.375 mouth daily. gram 24 hr capsule gabapentin Take 100 mg by 0 Active (NEURONTIN) 100 mg mouth 2 (two) capsule times a day. traMADol (ULTRAM) Take 50 mg by 0 Active 50 mg tablet mouth every 6 (six) hours as needed for moderate pain. carvedilol (COREG) Take 1 tablet 60 tablet 0 03/31/20 Active 6.25 MG tablet (6.25 mg total) 9 by mouth 2 (two) times a day for 30 days. levothyroxine Take 1 tablet 30 tablet 0 04/01/20 Active (SYNTHROID, (50 mcg total) 9 LEVOXYL) 50 mcg by mouth daily tablet for 30 days. acetaminophen Take 2 tablets 0 03/31/20 Active (TYLENOL) 325 MG (650 mg total) 9 19 tablet by mouth every 6 (six) hours as needed for fever (GREATER than 100.4) for up to 30 days. amLODIPine Take 1 tablet 30 tablet 0 04/01/20 Active (NORVASC) 10 mg (10 mg total) by 9 19 tablet mouth daily for 30 days. aspirin (ECOTRIN) Take 1 tablet 30 tablet 0 04/01/20 Active 81 MG enteric (81 mg total) by 03 11 coated tablet mouth daily for 30 days. bisacodyl Insert 1 0 03/31/20 Active (DULCOLAX) 10 mg suppository (03 31 19 suppository mg total) into the rectum daily as needed for constipation for up to 30 days. docusate sodium Take 1 capsule 0 03/31/20 Active (COLACE) 100 MG (100 mg total) 03 11 capsule by mouth 2 (two) times a day as needed for constipation for up to 30 days. furosemide (LASIX) Take 1 tablet 30 tablet 0 04/01/20 Active 20 mg tablet (20 mg total) by 03 11 mouth daily for 30 days. HYDROcodone-acetam Take 1 tablet by 0 03/15/20 Active inophen (NORCO) mouth every 4 03 11 5-325 mg per (four) hours as tabletIndications: needed for Acute Pain moderate pain for up to 14 days .Acute Pain. Max Daily Amount: 6 tablets hydrocortisone Insert into the 0 03/31/20 Active (ANUSOL-HC) 2.5 % rectum 2 (two) 03 11 rectal cream times a day for 30 days. levoFLOXacin Take 1 tablet 0 03/09/20 Active (LEVAQUIN) 250 MG (250 mg total) 03 11 tablet by mouth daily for [address] 1 patch on 30 patch 0 03/31/20 Active (LIDODERM) 5 % the skin daily 03 11 for 30 days. Remove & Discard patch within 12 hours or as directed by loperamide Take 1 capsule 0 03/06/20 Active (IMODIUM) 2 mg (2 mg total) by 03 11 capsule mouth 4 (four) times a day as needed for diarrhea for up to [address] 1 tablet 90 tablet 12 03/31/20 Active (NITROSTAT) 0.4 MG (0.4 mg total) 9 19 SL tablet under the tongue every 5 (five) minutes as needed for chest pain for up to 30 days. ondansetron ODT Take 1 tablet (4 0 03/31/20 Active (ZOFRAN-ODT) 4 MG mg total) by 9 19 disintegrating mouth every 8 tablet (eight) hours as needed for nausea or vomiting for up to 30 days. sucralfate Take 10 mL (1 g 1200 mL 0 03/31/20 Active (CARAFATE) 100 total) by mouth 9 19 mg/mL suspension 4 (four) times a day before meals and nightly for 30 days. tamsulosin Take 1 capsule 30 capsule 0 03/31/20 Active (FLOMAX) 0.4 mg (0.4 mg total) 9 19 capsule by mouth daily with dinner for 30 days. valsartan (DIOVAN) Take 1 tablet 30 tablet 0 04/01/20 Active 320 MG tablet (320 mg total) 9 19 by mouth daily for 30 days. carvedilol (COREG) Take 25 mg by 0 03/02/20 Discontinued 25 MG tablet mouth 2 (two) 19 (Stop Taking at times a day with Discharge) meals. levothyroxine Take 25 mcg by 0 03/02/20 Discontinued (SYNTHROID, mouth daily. 19 (Stop Taking at LEVOXYL) 25 mcg Discharge) tablet torsemide Take 10 mg by 0 03/02/20 Discontinued (DEMADEX) 10 MG mouth daily. 19 (Stop Taking at tablet Discharge) spironolactone Take 25 mg by 0 03/02/20 Discontinued (ALDACTONE) 25 MG mouth daily. 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 02/05/2019 Overview: Added automatically from request for surgery [id number] Encounters Date Type Specialty Care Team Description 02/12/2019 Surgery Gastroenterology Ducscni, PUSH ENTEROSCOPY MD Dwayne with biopsies,ablation(AP C) 02/12/2019 Anesthesia Event Gastroenterology Jaelyn Deleon MD 02/12/2019 Orders Only Cardiovascular [place], PAD (peripheral Ingrid, RN artery disease) (HCC) (Primary Dx) 02/11/2019 Anesthesia Event Gastroenterology Gerry Kendall MD Crawley, Teri, DRAFTER (CAD) ELECTRONIC 02/11/2019 Surgery Gastroenterology Jose, Canceled MD Dwayne ENTEROSCOPY, SINGLE BALLOON, TRANSORAL, USING OVERTUBE 02/06/2019 Surgery Cardiothoracic Surgery Rita Arteaga MD Left common femoral endarterectomy and thrombectomy. 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 Last Filed Vital Signs Vital Sign Reading Time Taken Comments Blood Pressure 136/81 03/02/2019 12:09 PM CDT Pulse 66 03/02/2019 12:09 PM CDT Temperature 36.7 C (98 F) 03/02/2019 12:09 PM CDT Respiratory Rate 19 03/02/2019 12:09 PM CDT Oxygen Saturation 98% 03/02/2019 12:09 PM CDT Inhaled Oxygen Concentration - - Weight 60.8 kg (134 lb) 03/01/2019 5:35 AM CDT Height 160 cm (5' 3") 02/06/2019 3:07 AM CDT Body Mass Index 23.74 02/06/2019 3:07 AM CDT Plan of Treatment Date Type Specialty Care Team Description 03/25/2019 Appointment Procedural Cardiology Rita Arteaga MD [address] [facility] [address] [place] [address] 03/25/2019 Office Visit Cardiovascular Rita Arteaga MD [address] [facility] [address] [place] [address] Health Maintenance Due Date Last Done Comments SHINGLES VACCINES (#1) 1987 65+ PNEUMOCOCCAL VACCINE (1 of 2 - PCV13) 2002 INFLUENZA VACCINE 01/21/2019 Implants Implanted Type Area Computer Patternmaker Device Shelf Model / Identifier Expiration Serial / Date Lot Clip Ligtng Weck Hemoclip Plus W/ Tape Ti Sm Strngpnt - [id number] Medical N/ A: N/A WECK CLOSURE [id number] / Implanted: 02/06/2019 at [facility] (Quantity not on file) Clips for SYSTEMS / Internal Use Clip Ligtng Weck Hemoclip Plus W/ Tape Ti Med - [id number] Medical N/A: N/A TELEFLEX MEDICAL [id number] / Implanted: 02/06/2019 at [facility] (Quantity not on file) Clips for / Internal Use Patch Vasclr Perph 0.8x8cm Vascu-Guard - [id number] Vascular Left: MAIER 07/30/2023 [id number] / Implanted: Qty: 1 on 02/06/2019 by Rita Arteaga MD at [facility] Graft Groin BIOSCIENCE / [id number] Procedures Procedure Name Priority Date/Time Associated Comments Diagnosis MANUAL DIFFERENTIAL Routine 03/02/2019 5:40 Results for this AM CDT procedure are in the results section. CBC WITH PLATELET AND Routine 03/02/2019 5:40 Results for this DIFFERENTIAL AM CDT procedure are in the results section. ESTIMATED GFR Routine 03/02/2019 4:00 Results for this AM CDT procedure are in the results section. BASIC METABOLIC PANEL Routine 03/02/2019 4:00 Results for this AM CDT procedure are in the results section. SMEAR REVIEW Routine 03/01/2019 6:20 Results for this AM CDT procedure are in the results section. HC COMPLETE BLD COUNT Routine 03/01/2019 6:20 Results for this W/AUTO DIFF AM CDT procedure are in the results section. ESTIMATED GFR Routine 03/01/2019 4:00 Results for this AM CDT procedure are in the results section. MAGNESIUM LEVEL Routine 03/01/2019 4:00 Results for this AM CDT procedure are in the results section. BASIC METABOLIC PANEL Routine 03/01/2019 4:00 Results for this AM CDT procedure are in the results section. ESTIMATED GFR Routine 02/28/2019 6:58 Results for this AM CDT procedure are in the results section. BASIC METABOLIC PANEL Routine 02/28/2019 6:58 Results for this AM CDT procedure are in the results section. SMEAR REVIEW Routine 02/28/2019 5:30 Results for this AM CDT procedure are in the results section. HC COMPLETE BLD COUNT Routine 02/28/2019 5:30 Results for this W/AUTO DIFF AM CDT procedure are in the results section. OSMOLALITY, URINE Routine 02/28/2019 4:00 Results for this AM CDT procedure are in the results section. SMEAR REVIEW Routine 02/27/2019 6:20 Results for this AM CDT procedure are in the results section. HC COMPLETE BLD COUNT Routine 02/27/2019 6:20 Results for this W/AUTO DIFF AM CDT procedure are in the results section. B NATRIURETIC PEPTIDE Routine 02/27/2019 6:20 Results for this AM CDT procedure are in the results section. ESTIMATED GFR Routine 02/27/2019 4:00 Results for this AM CDT procedure are in the results section. BASIC METABOLIC PANEL Routine 02/27/2019 4:00 Results for this AM CDT procedure are in the results section. SMEAR REVIEW Routine 02/26/2019 4:20 Results for this AM CDT procedure are in the results section. ESTIMATED GFR Routine 02/26/2019 4:20 Results for this AM CDT procedure are in the results section. BASIC METABOLIC PANEL Routine 02/26/2019 4:20 Results for this AM CDT procedure are in the results section. HC COMPLETE BLD COUNT Routine 02/26/2019 4:20 Results for this W/AUTO DIFF AM CDT procedure are in the results section. URINE CULTURE Routine 02/25/2019 6:03 Results for this AM CDT procedure are in the results section. GRAM STAIN Routine 02/25/2019 6:03 Results for this AM CDT procedure are in the results section. ESTIMATED GFR Routine 02/25/2019 4:45 Results for this AM CDT procedure are in the results section. HC COMPLETE BLD COUNT Routine 02/25/2019 4:45 Results for this W/AUTO DIFF AM CDT procedure are in the results section. B NATRIURETIC PEPTIDE Routine 02/25/2019 4:45 Results for this AM CDT procedure are in the results section. BASIC METABOLIC PANEL Routine 02/25/2019 4:45 Results for this AM CDT procedure are in the results section. TYPE AND SCREEN Routine 02/25/2019 4:45 Results for this AM CDT procedure are in the results section. URINALYSIS, AUTOMATED Routine 02/24/2019 9:30 Results for this WITH MICROSCOPY PM CDT procedure are in the results section. ESTIMATED GFR Routine 02/24/2019 4:15 Results for this AM CDT procedure are in the results section. IRON LEVEL Routine 02/24/2019 4:15 Results for this AM CDT procedure are in the results section. RETICULOCYTE COUNT Routine 02/24/2019 4:15 Results for this AM CDT procedure are in the results section. HC COMPLETE BLD COUNT Routine 02/24/2019 4:15 Results for this W/AUTO DIFF AM CDT procedure are in the results section. BASIC METABOLIC PANEL Routine 02/24/2019 4:15 Results for this AM CDT procedure are in the results section. ESTIMATED GFR Routine 02/23/2019 6:10 Results for this AM CDT procedure are in the results section. B NATRIURETIC PEPTIDE Routine 02/23/2019 6:10 Results for this AM CDT procedure are in the results section. CBC WITH PLATELET AND Routine 02/23/2019 6:10 Results for this DIFFERENTIAL AM CDT procedure are in the results section. BASIC METABOLIC PANEL Routine 02/23/2019 6:10 Results for this AM CDT procedure are in the results section. XR CHEST 1 VW PORTABLE Routine 02/22/2019 6:48 Results for this AM CDT procedure are in the results section. HC COMPLETE BLD COUNT Routine 02/22/2019 4:10 Results for this W/AUTO DIFF AM CDT procedure are in the results section. ESTIMATED GFR Routine 02/22/2019 4:00 Results for this AM CDT procedure are in the results section. B NATRIURETIC PEPTIDE Routine 02/22/2019 4:00 Results for this AM CDT procedure are in the results section. MAGNESIUM LEVEL Routine 02/22/2019 4:00 Results for this AM CDT procedure are in the results section. BASIC METABOLIC PANEL Routine 02/22/2019 4:00 Results for this AM CDT procedure are in the results section. XR CHEST 1 VW PORTABLE STAT 02/21/2019 2:51 Results for this AM CDT procedure are in the results section. TROPONIN Routine 02/21/2019 1:38 Results for this AM CDT procedure are in the results section. ESTIMATED GFR Routine 02/21/2019 1:38 Results for this AM CDT procedure are in the results section. B NATRIURETIC PEPTIDE Routine 02/21/2019 1:38 Results for this AM CDT procedure are in the results section. MAGNESIUM LEVEL Routine 02/21/2019 1:38 Results for this AM CDT procedure are in the results section. HC COMPLETE BLD COUNT Routine 02/21/2019 1:38 Results for this W/AUTO DIFF AM CDT procedure are in the results section. BASIC METABOLIC PANEL Routine 02/21/2019 1:38 Results for this AM CDT procedure are in the results section. ECG 12-LEAD STAT 02/21/2019 1:01 Results for this AM CDT procedure are in the results section. POC GLUCOSE Routine 02/20/2019 8:37 Results for this AM CDT procedure are in the results section. ESTIMATED GFR Routine 02/20/2019 4:59 Results for this AM CDT procedure are in the results section. B NATRIURETIC PEPTIDE Routine 02/20/2019 4:59 Results for this AM CDT procedure are in the results section. MAGNESIUM LEVEL Routine 02/20/2019 4:59 Results for this AM CDT procedure are in the results section. HC COMPLETE BLD COUNT Routine 02/20/2019 4:59 Results for this W/AUTO DIFF AM CDT procedure are in the results section. BASIC METABOLIC PANEL Routine 02/20/2019 4:59 Results for this AM CDT procedure are in the results section. HEMOGLOBIN A1C STAT 02/19/2019 12:20 Results for this PM CDT procedure are in the results section. POC GLUCOSE Routine 02/19/2019 8:57 Results for this AM CDT procedure are in the results section. ESTIMATED GFR Routine 02/19/2019 4:04 Results for this AM CDT procedure are in the results section. MAGNESIUM LEVEL Routine 02/19/2019 4:04 Results for this AM CDT procedure are in the results section. B NATRIURETIC PEPTIDE Routine 02/19/2019 4:04 Results for this AM CDT procedure are in the results section. BASIC METABOLIC PANEL Routine 02/19/2019 4:04 Results for this AM CDT procedure are in the results section. HC COMPLETE BLD COUNT Routine 02/19/2019 4:04 Results for this W/AUTO DIFF AM CDT procedure are in the results section. POC GLUCOSE Routine 02/18/2019 9:18 Results for this PM CDT procedure are in the results section. POC GLUCOSE Routine 02/18/2019 6:12 Results for this PM CDT procedure are in the results section. POC GLUCOSE Routine 02/18/2019 5:44 Results for this PM CDT procedure are in the results section. CLOSTRIDIUM DIFFICILE Routine 02/18/2019 2:10 Results for this TOXIN PM CDT procedure are in the results section. POC GLUCOSE Routine 02/18/2019 12:22 Results for this PM CDT procedure are in the results section. POC GLUCOSE Routine 02/18/2019 8:11 Results for this AM CDT procedure are in the results section. ESTIMATED GFR Routine 02/18/2019 5:00 Results for this AM CDT procedure are in the results section. MAGNESIUM LEVEL Routine 02/18/2019 5:00 Results for this AM CDT procedure are in the results section. B NATRIURETIC PEPTIDE Routine 02/18/2019 5:00 Results for this AM CDT procedure are in the results section. BASIC METABOLIC PANEL Routine 02/18/2019 5:00 Results for this AM CDT procedure are in the results section. HC COMPLETE BLD COUNT Routine 02/18/2019 5:00 Results for this W/AUTO DIFF AM CDT procedure are in the results section. POC GLUCOSE Routine 02/17/2019 9:04 Results for this PM CDT procedure are in the results section. POC GLUCOSE Routine 02/17/2019 5:17 Results for this PM CDT procedure are in the results section. HC COMPLETE BLD COUNT Routine 02/17/2019 4:37 Results for this W/AUTO DIFF AM CDT procedure are in the results section. ESTIMATED GFR Routine 02/17/2019 4:00 Results for this AM CDT procedure are in the results section. MAGNESIUM LEVEL Routine 02/17/2019 4:00 Results for this AM CDT procedure are in the results section. B NATRIURETIC PEPTIDE Routine 02/17/2019 4:00 Results for this AM CDT procedure are in the results section. BASIC METABOLIC PANEL Routine 02/17/2019 4:00 Results for this AM CDT procedure are in the results section. POC GLUCOSE Routine 02/16/2019 9:22 Results for this PM CDT procedure are in the results section. POC GLUCOSE Routine 02/16/2019 5:01 Results for this PM CDT procedure are in the results section. SODIUM LEVEL Routine 02/16/2019 4:00 Results for this PM CDT procedure are in the results section. POC GLUCOSE Routine 02/16/2019 11:28 Results for this AM CDT procedure are in the results section. POC GLUCOSE Routine 02/16/2019 8:34 Results for this AM CDT procedure are in the results section. HC COMPLETE BLD COUNT Routine 02/16/2019 5:40 Results for this W/AUTO DIFF AM CDT procedure are in the results section. ESTIMATED GFR Routine 02/16/2019 4:00 Results for this AM CDT procedure are in the results section. BASIC METABOLIC PANEL Routine 02/16/2019 4:00 Results for this AM CDT procedure are in the results section. POC GLUCOSE Routine 02/15/2019 9:18 Results for this PM CDT procedure are in the results section. SODIUM LEVEL Routine 02/15/2019 4:20 Results for this PM CDT procedure are in the results section. POC GLUCOSE Routine 02/15/2019 3:10 Results for this PM CDT procedure are in the results section. POC GLUCOSE Routine 02/15/2019 12:40 Results for this PM CDT procedure are in the results section. POC GLUCOSE Routine 02/15/2019 7:44 Results for this AM CDT procedure are in the results section. HC COMPLETE BLD COUNT Routine 02/15/2019 5:30 Results for this W/AUTO DIFF AM CDT procedure are in the results section. ESTIMATED GFR Routine 02/15/2019 4:00 Results for this AM CDT procedure are in the results section. BASIC METABOLIC PANEL Routine 02/15/2019 4:00 Results for this AM CDT procedure are in the results section. MAGNESIUM LEVEL Routine 02/15/2019 4:00 Results for this AM CDT procedure are in the results section. POC GLUCOSE Routine 02/14/2019 9:05 Results for this PM CDT procedure are in the results section. SODIUM LEVEL STAT 02/14/2019 1:00 Results for this PM CDT procedure are in the results section. POC GLUCOSE Routine 02/14/2019 11:52 Results for this AM CDT procedure are in the results section. POC GLUCOSE Routine 02/14/2019 7:44 Results for this AM CDT procedure are in the results section. HC COMPLETE BLD COUNT Routine 02/14/2019 6:30 Results for this W/AUTO DIFF AM CDT procedure are in the results section. ESTIMATED GFR Routine 02/14/2019 4:00 Results for this AM CDT procedure are in the results section. BASIC METABOLIC PANEL Routine 02/14/2019 4:00 Results for this AM CDT procedure are in the results section. MAGNESIUM LEVEL Routine 02/14/2019 4:00 Results for this AM CDT procedure are in the results section. POC GLUCOSE Routine 02/14/2019 12:33 Results for this AM CDT procedure are in the results section. POC GLUCOSE Routine 02/13/2019 5:01 Results for this PM CDT procedure are in the results section. T4, FREE Routine 02/13/2019 3:00 Results for this PM CDT procedure are in the results section. THYROID STIMULATING Routine 02/13/2019 3:00 Results for this HORMONE PM CDT procedure are in the results section. SODIUM LEVEL STAT 02/13/2019 3:00 Results for this PM CDT procedure are in the results section. POC GLUCOSE Routine 02/13/2019 12:17 Results for this PM CDT procedure are in the results section. POC GLUCOSE Routine 02/13/2019 8:14 Results for this AM CDT procedure are in the results section. MANUAL DIFFERENTIAL Routine 02/13/2019 6:39 Results for this AM CDT procedure are in the results section. ESTIMATED GFR Routine 02/13/2019 6:39 Results for this AM CDT procedure are in the results section. MAGNESIUM LEVEL Routine 02/13/2019 6:39 Results for this AM CDT procedure are in the results section. CBC WITH PLATELET AND Routine 02/13/2019 6:39 Results for this DIFFERENTIAL AM CDT procedure are in the results section. BASIC METABOLIC PANEL Routine 02/13/2019 6:39 Results for this AM CDT procedure are in the results section. POC GLUCOSE Routine 02/12/2019 9:44 Results for this PM CDT procedure are in the results section. POC GLUCOSE Routine 02/12/2019 5:56 Results for this PM CDT procedure are in the results section. SURGICAL PATHOLOGY Routine 02/12/2019 2:28 Results for this REQUEST PM CDT procedure are in the results section. POC GLUCOSE Routine 02/12/2019 1:13 Results for this PM CDT procedure are in the results section. PUSH ENTEROSCOPY 02/12/2019 10:54 Coronary artery AM CDT disease involving tuscarora heart with angina pectoris, unspecified vessel or lesion type (HCC) CBC HEMOGRAM Routine 02/12/2019 6:00 Results for this AM CDT procedure are in the results section. ESTIMATED GFR Routine 02/12/2019 4:00 Results for this AM CDT procedure are in the results section. BASIC METABOLIC PANEL Routine 02/12/2019 4:00 Results for this AM CDT procedure are in the results section. POC GLUCOSE Routine 02/11/2019 8:28 Results for this PM CDT procedure are in the results section. POC GLUCOSE Routine 02/11/2019 5:58 Results for this PM CDT procedure are in the results section. SODIUM LEVEL, URINE, Routine 02/11/2019 1:20 Results for this RANDOM PM CDT procedure are in the results section. OSMOLALITY, URINE Routine 02/11/2019 1:20 Results for this PM CDT procedure are in the results section. SODIUM LEVEL Routine 02/11/2019 1:00 Results for this PM CDT procedure are in the results section. POC GLUCOSE Routine 02/11/2019 12:47 Results for this PM CDT procedure are in the results section. POC GLUCOSE Routine 02/11/2019 8:48 Results for this AM CDT procedure are in the results section. POC GLUCOSE Routine 02/11/2019 7:42 Results for this AM CDT procedure are in the results section. HC COMPLETE BLD COUNT Routine 02/11/2019 5:20 Results for this W/AUTO DIFF AM CDT procedure are in the results section. ESTIMATED GFR Routine 02/11/2019 4:00 Results for this AM CDT procedure are in the results section. COMPREHENSIVE METABOLIC Routine 02/11/2019 4:00 Results for this PANEL AM CDT procedure are in the results section. POC GLUCOSE Routine 02/10/2019 9:27 Results for this PM CDT procedure are in the results section. POC GLUCOSE Routine 02/10/2019 5:38 Results for this PM CDT procedure are in the results section. POC GLUCOSE Routine 02/10/2019 7:41 Results for this AM CDT procedure are in the results section. OCCULT BLOOD, STOOL Routine 02/10/2019 7:08 Results for this AM CDT procedure are in the results section. ESTIMATED GFR Routine 02/10/2019 4:00 Results for this AM CDT procedure are in the results section. COMPREHENSIVE METABOLIC Routine 02/10/2019 4:00 Results for this PANEL AM CDT procedure are in the results section. HC COMPLETE BLD COUNT Routine 02/10/2019 4:00 Results for this W/AUTO DIFF AM CDT procedure are in the results section. POC GLUCOSE Routine 02/09/2019 8:46 Results for this PM CDT procedure are in the results section. POC GLUCOSE Routine 02/09/2019 5:10 Results for this PM CDT procedure are in the results section. POC GLUCOSE Routine 02/09/2019 12:04 Results for this PM CDT procedure are in the results section. NM GI BLEEDING STUDY Routine 02/09/2019 11:34 Results for this AM CDT procedure are in the results section. RETICULOCYTE COUNT Routine 02/09/2019 4:07 Results for this AM CDT procedure are in the results section. CBC WITH PLATELET AND Routine 02/09/2019 4:07 Results for this DIFFERENTIAL AM CDT procedure are in the results section. PHOSPHORUS LEVEL Routine 02/09/2019 4:00 Results for this AM CDT procedure are in the results section. MAGNESIUM LEVEL Routine 02/09/2019 4:00 Results for this AM CDT procedure are in the results section. IONIZED CALCIUM Routine 02/09/2019 4:00 Results for this AM CDT procedure are in the results section. ESTIMATED GFR Routine 02/09/2019 4:00 Results for this AM CDT procedure are in the results section. HAPTOGLOBIN Routine 02/09/2019 4:00 Results for this AM CDT procedure are in the results section. SERUM ELECTROPHORESIS Routine 02/09/2019 4:00 Results for this AM CDT procedure are in the results section. THYROID STIMULATING Routine 02/09/2019 4:00 Results for this HORMONE AM CDT procedure are in the results section. LDH Routine 02/09/2019 4:00 Results for this AM CDT procedure are in the results section. FOLATE LEVEL Routine 02/09/2019 4:00 Results for this AM CDT procedure are in the results section. VITAMIN B12 LEVEL Routine 02/09/2019 4:00 Results for this AM CDT procedure are in the results section. TOTAL IRON BINDING Routine 02/09/2019 4:00 Results for this CAPACITY AM CDT procedure are in the results section. FERRITIN LEVEL Routine 02/09/2019 4:00 Results for this AM CDT procedure are in the results section. PROTHROMBIN TIME WITH Routine 02/09/2019 4:00 Results for this INR AM CDT procedure are in the results section. COMPREHENSIVE METABOLIC Routine 02/09/2019 4:00 Results for this PANEL AM CDT procedure are in the results section. ANTI-NEUTROPHILIC Routine 02/09/2019 4:00 Results for this CYTOPLASMIC ABS PANEL AM CDT procedure are in the results section. SACCHAROMYCES Routine 02/09/2019 4:00 Results for this CEREVISIAE ABS, IGG AND AM CDT procedure are in IGA the results section. POC GLUCOSE Routine 02/08/2019 8:47 Results for this PM CDT procedure are in the results section. POC GLUCOSE Routine 02/08/2019 5:55 Results for this PM CDT procedure are in the results section. HEMOGLOBIN & HEMATOCRIT STAT 02/08/2019 2:10 Results for this PM CDT procedure are in the results section. POC GLUCOSE Routine 02/08/2019 11:45 Results for this AM CDT procedure are in the results section. POC GLUCOSE Routine 02/08/2019 8:12 Results for this AM CDT procedure are in the results section. XR CHEST 1 VW PORTABLE Routine 02/08/2019 6:39 Results for this AM CDT procedure are in the results section. TRANSFUSE RED BLOOD Routine 02/08/2019 6:27 CELLS AM CDT POC GLUCOSE Routine 02/08/2019 4:12 Results for this AM CDT procedure are in the results section. SMEAR REVIEW Routine 02/08/2019 2:25 Results for this AM CDT procedure are in the results section. ESTIMATED GFR Routine 02/08/2019 2:25 Results for this AM CDT procedure are in the results section. IONIZED CALCIUM Routine 02/08/2019 2:25 Results for this AM CDT procedure are in the results section. PHOSPHORUS LEVEL Routine 02/08/2019 2:25 Results for this AM CDT procedure are in the results section. MAGNESIUM LEVEL Routine 02/08/2019 2:25 Results for this AM CDT procedure are in the results section. BASIC METABOLIC PANEL Routine 02/08/2019 2:25 Results for this AM CDT procedure are in the results section. HC COMPLETE BLD COUNT Routine 02/08/2019 2:25 Results for this W/AUTO DIFF AM CDT procedure are in the results section. POC GLUCOSE Routine 02/08/2019 1:05 Results for this AM CDT procedure are in the results section. POC GLUCOSE Routine 02/07/2019 7:52 Results for this PM CDT procedure are in the results section. CREATININE LEVEL, Routine 02/07/2019 6:45 Results for this URINE, RANDOM PM CDT procedure are in the results section. ESTIMATED GFR Routine 02/07/2019 6:45 Results for this PM CDT procedure are in the results section. BASIC METABOLIC PANEL Routine 02/07/2019 6:45 Results for this PM CDT procedure are in the results section. SODIUM LEVEL, URINE, Routine 02/07/2019 6:45 Results for this RANDOM PM CDT procedure are in the results section. POC GLUCOSE Routine 02/07/2019 4:01 Results for this PM CDT procedure are in the results section. PARTIAL THROMBOPLASTIN STAT 02/07/2019 3:10 Results for this TIME (PTT) PM CDT procedure are in the results section. HEMOGLOBIN & HEMATOCRIT STAT 02/07/2019 3:10 Results for this PM CDT procedure are in the results section. POC GLUCOSE Routine 02/07/2019 11:55 Results for this AM CDT procedure are in the results section. PARTIAL THROMBOPLASTIN Routine 02/07/2019 9:02 Results for this TIME (PTT) AM CDT procedure are in the results section. HEMOGLOBIN & HEMATOCRIT Routine 02/07/2019 9:02 Results for this AM CDT procedure are in the results section. ECG 12-LEAD Routine 02/07/2019 7:38 Results for this AM CDT procedure are in the results section. POC GLUCOSE Routine 02/07/2019 7:38 Results for this AM CDT procedure are in the results section. XR CHEST 1 VW PORTABLE Routine 02/07/2019 7:06 Results for this AM CDT procedure are in the results section. POC GLUCOSE Routine 02/07/2019 4:23 Results for this AM CDT procedure are in the results section. ESTIMATED GFR Routine 02/07/2019 3:42 Results for this AM CDT procedure are in the results section. PHOSPHORUS LEVEL Routine 02/07/2019 3:42 Results for this AM CDT procedure are in the results section. MAGNESIUM LEVEL Routine 02/07/2019 3:42 Results for this AM CDT procedure are in the results section. IONIZED CALCIUM Routine 02/07/2019 3:42 Results for this AM CDT procedure are in the results section. BASIC METABOLIC PANEL Routine 02/07/2019 3:42 Results for this AM CDT procedure are in the results section. PARTIAL THROMBOPLASTIN Routine 02/07/2019 3:30 Results for this TIME (PTT) AM CDT procedure are in the results section. CBC HEMOGRAM Routine 02/07/2019 3:30 Results for this AM CDT procedure are in the results section. POC GLUCOSE Routine 02/06/2019 11:59 Results for this PM CDT procedure are in the results section. TRANSFUSE RED BLOOD Routine 02/06/2019 11:20 CELLS PM CDT ANTI XA, UNFRACTIONATED Routine 02/06/2019 9:45 Results for this PM CDT procedure are in the results section. PARTIAL THROMBOPLASTIN Routine 02/06/2019 9:45 Results for this TIME (PTT) PM CDT procedure are in the results section. HEMOGLOBIN & HEMATOCRIT Routine 02/06/2019 9:45 Results for this PM CDT procedure are in the results section. POC GLUCOSE Routine 02/06/2019 8:15 Results for this PM CDT procedure are in the results section. PARTIAL THROMBOPLASTIN Routine 02/06/2019 3:48 Results for this TIME (PTT) PM CDT procedure are in the results section. ANTI XA, UNFRACTIONATED Routine 02/06/2019 3:48 Results for this PM CDT procedure are in the results section. CREATINE KINASE, TOTAL Routine 02/06/2019 3:48 Results for this (CPK) PM CDT procedure are in the results section. POC GLUCOSE Routine 02/06/2019 3:45 Results for this PM CDT procedure are in the results section. HEMOGLOBIN & HEMATOCRIT STAT 02/06/2019 3:42 Results for this PM CDT procedure are in the results section. XR CHEST 1 VW PORTABLE Routine 02/06/2019 2:22 Results for this PM CDT procedure are in the results section. ECG 12-LEAD STAT 02/06/2019 1:05 Results for this PM CDT procedure are in the results section. CREATINE KINASE, TOTAL Routine 02/06/2019 10:30 Results for this (CPK) AM CDT procedure are in the results section. ESTIMATED GFR Routine 02/06/2019 10:30 Results for this AM CDT procedure are in the results section. PARTIAL THROMBOPLASTIN Routine 02/06/2019 10:30 Results for this TIME (PTT) AM CDT procedure are in the results section. PROTHROMBIN TIME WITH Routine 02/06/2019 10:30 Results for this INR AM CDT procedure are in the results section. IONIZED CALCIUM Routine 02/06/2019 10:30 Results for this AM CDT procedure are in the results section. PHOSPHORUS LEVEL Routine 02/06/2019 10:30 Results for this AM CDT procedure are in the results section. MAGNESIUM LEVEL Routine 02/06/2019 10:30 Results for this AM CDT procedure are in the results section. HC COMPLETE BLD COUNT Routine 02/06/2019 10:30 Results for this W/AUTO DIFF AM CDT procedure are in the results section. BASIC METABOLIC PANEL Routine 02/06/2019 10:30 Results for this AM CDT procedure are in the results section. TRANSFUSE RED BLOOD Routine 02/06/2019 10:07 CELLS AM CDT POC GLUCOSE Routine 02/06/2019 10:05 Results for this AM CDT procedure are in the results section. ARTERIAL BLOOD GAS, STAT 02/06/2019 9:08 Results for this CORRECTED AM CDT procedure are in the results section. SODIUM LEVEL, SYRINGE STAT 02/06/2019 9:08 Results for this AM CDT procedure are in the results section. POTASSIUM, SYRINGE STAT 02/06/2019 9:08 Results for this AM CDT procedure are in the results section. HEMOGLOBIN, SYRINGE STAT 02/06/2019 9:08 Results for this AM CDT procedure are in the results section. IONIZED CALCIUM, STAT 02/06/2019 9:08 Results for this ARTERIAL AM CDT procedure are in the results section. GLUCOSE LEVEL, SYRINGE STAT 02/06/2019 9:08 Results for this AM CDT procedure are in the results section. ARTERIAL BLOOD GAS, STAT 02/06/2019 8:31 Results for this CORRECTED AM CDT procedure are in the results section. SODIUM LEVEL, SYRINGE STAT 02/06/2019 8:31 Results for this AM CDT procedure are in the results section. POTASSIUM, SYRINGE STAT 02/06/2019 8:31 Results for this AM CDT procedure are in the results section. HEMOGLOBIN, SYRINGE STAT 02/06/2019 8:31 Results for this AM CDT procedure are in the results section. IONIZED CALCIUM, STAT 02/06/2019 8:31 Results for this ARTERIAL AM CDT procedure are in the results section. GLUCOSE LEVEL, SYRINGE STAT 02/06/2019 8:31 Results for this AM CDT procedure are in the results section. ACTIVATED CLOTTING TIME Routine 02/06/2019 8:24 Results for this AM CDT procedure are in the results section. SURGICAL PATHOLOGY Routine 02/06/2019 8:22 Results for this REQUEST AM CDT procedure are in the results section. ACTIVATED CLOTTING TIME Routine 02/06/2019 7:53 Results for this AM CDT procedure are in the results section. GLUCOSE LEVEL, SYRINGE STAT 02/06/2019 6:58 Results for this AM CDT procedure are in the results section. HEMOGLOBIN, SYRINGE STAT 02/06/2019 6:58 Results for this AM CDT procedure are in the results section. IONIZED CALCIUM, STAT 02/06/2019 6:58 Results for this ARTERIAL AM CDT procedure are in the results section. POTASSIUM, SYRINGE STAT 02/06/2019 6:58 Results for this AM CDT procedure are in the results section. SODIUM LEVEL, SYRINGE STAT 02/06/2019 6:58 Results for this AM CDT procedure are in the results section. ARTERIAL BLOOD GAS, STAT 02/06/2019 6:58 Results for this CORRECTED AM CDT procedure are in the results section. ARTERIAL LINE Routine 02/06/2019 6:56 AM CDT Procedure Note - Vern Ty - 02/06/2019 6:56 AM CDT Arterial line Performed by: Vern Ty Authorized by: Vern Ty Patient Location: OR Staff: Anesthesiologist: Vern Ty Performed by: Anesthesiologist Pre-procedure: patient identified, IV checked, site and side verified, risks and benefits discussed, procedure verified, surgical consent complete, patient position confirmed, monitors and equipment checked and pre-op evaluation complete MSBT: antiseptic used, all elements of maximal sterile barrier technique followed, hand hygiene performed, cap/gown used by other personnel and solutions labeled Indications: Indications: multiple ABGs and hemodynamic monitoring Anesthesia: Anesthesia: General Procedure Details: Arterial Line placement: Placed post induction Line placement site: Axillary Line placement side: Right Arterial line gauge: 20 G Number of attempts: 1 Ultrasound guidance used: No Post-procedure: Post-procedure: Sterile dressing applied Post procedure circulation, sensation, movement: Normal and unchanged Patient tolerance: Patient tolerated the procedure well with no immediate complications Notes: Very small bilateral radial arteries on US exam. R axillary 20G placed [place] AN ELECTIVE ENDOTRACHEAL AIRWAY Routine 02/06/2019 6:55 AM CDT Procedure Note - Vern Ty - 02/06/2019 6:55 AM CDT Airway Performed by: Vern Ty Authorized by: Vern Ty Location: OR Urgency: Elective Difficult Airway: No Preoxygenated with 100% O2: Yes Mask Ventilation: Easy mask Final Airway Type: Endotracheal airway Final Endotracheal Airway: ETT Cuffed: Yes Technique Used: Direct laryngoscopy Devices/Methods Used in Placement: Intubating stylet Insertion Site: Oral Blade Type: Hong Laryngoscope Blade/Videolaryngoscope Blade Size: 2 ETT Size (mm): 7.0 Cuff at minimum occlusion pressure: Yes Measured from: Lips ETT to Lips (cm): 22 Placement Verified by: CO2 detection, direct visualization and equal breath sounds Laryngoscopic view: Grade I - full view of glottis Rapid Sequence Induction (RSI): No Modified RSI: No Number of Attempts at Approach: 1 Atraumatic intubation without damage to lips or gums. Dentition remains intact as per preoperative assessment. BLBS and EtCO2 confirmed. Cuff inflated to minimal occlusive pressure. Eyes taped prior to DL. ACTIVATED CLOTTING TIME Routine 02/06/2019 6:51 AM CDT ECG 12-LEAD STAT 02/06/2019 5:43 AM CDT PREPARE RBC STAT 02/06/2019 4:15 AM CDT PREPARE RBC STAT 02/06/2019 4:15 AM CDT PREPARE RBC STAT 02/06/2019 4:15 AM CDT PREPARE FRESH FROZEN PLASMA STAT 02/06/2019 4:15 AM CDT PREPARE RBC STAT 02/06/2019 4:15 AM CDT ESTIMATED GFR STAT 02/06/2019 4:15 AM CDT PARTIAL THROMBOPLASTIN TIME STAT 02/06/2019 4:15 AM CDT Results for this (PTT) procedure are in the results section. PROTHROMBIN TIME WITH INR STAT 02/06/2019 4:15 AM CDT HC COMPLETE BLD COUNT W/AUTO STAT 02/06/2019 4:15 AM CDT Results for this DIFF procedure are in the results section. BASIC METABOLIC PANEL STAT 02/06/2019 4:15 AM CDT TYPE AND SCREEN STAT 02/06/2019 4:15 AM CDT CREATINE KINASE, TOTAL (CPK) STAT 02/06/2019 3:51 AM CDT after 03/01/2018 Results Manual differential (03/02/2019 5:40 AM CDT)Only the most recent of2 resultswithin the time period is included. Manual differential PERFORMED [facility] Neutrophils 73.0 (H) 39.0 - 69.0 % [facility] Lymphocytes 15.0 (L) 25.0 - 45.0 % [facility] Monocytes 10.0 0.0 - 10.0 % [facility] Eosinophils 2.0 0.0 - 5.0 % [facility] Basophils 0.0 0.0 - 1.0 % [facility] Metamyelocytes 0 % [facility] Promyelocytes 0 % [facility] Platelet slide review Brenda adequate [facility] Anisocytosis Moderate [facility] Polychromasia Moderate [facility] Ovalocytes Moderate [facility] Specimen Performing Organization Address City/State/Zipcode Phone Number [facility] DEPARTMENT OF PATHOLOGY AND [address] [place] [address] GENOMIC MEDICINE [address] [phone] CBC with platelet and differential (03/02/2019 5:40 AM CDT)Only the most recent of24 resultswithin the time period is included. WBC 4.86 4.50 - 11.00 k/uL [facility] RBC 2.92 (L) 4.20 - 5.50 m/uL [facility] HGB 8.8 (L) 12.0 - 16.0 g/dL [facility] HCT 28.7 (L) 37.0 - 47.0 % [facility] MCV 98.3 82.0 - 100.0 fL [facility] MCH 30.1 27.0 - 34.0 pg [facility] MCHC 30.7 (L) 31.0 - 37.0 g/dL [facility] RDW - SD 75.2 (H) 37.0 - 55.0 fL [facility] MPV 10.4 8.8 - 13.2 fL [facility] Platelet count 221 150 - 400 k/uL [facility] Nucleated RBC 0.00 /100 WBC [facility] Neutrophils 73.0 (H) 39.0 - 69.0 % [facility] Lymphocytes 15.0 (L) 25.0 - 45.0 % [facility] Monocytes 10.0 0.0 - 10.0 % [facility] Eosinophils 2.0 0.0 - 5.0 % [facility] Basophils 0.0 0.0 - 1.0 % [facility] Specimen Blood Performing Organization Address City/[facility]/Zipcode Phone Number [facility] DEPARTMENT OF PATHOLOGY AND [address] [place] [address] Estimated GFR (03/02/2019 4:00 AM CDT)Only the most recent of27 resultswithin the time period is included. [facility] Estimated GFR 39 (A) mL/min/1.73 [facility] Comment: HOSPITAL CatergoryUnitsInterpretation G1 >=90 Normal or high G2 60-89Mildly decreased [id number] to moderately decreased [id number] to severely decreased G4 15-29Severely decreased G5 <15Kidney failure The eGFR was calculated using the Chronic Kidney Disease Epidemiology Collaboration (CKD-EPI) equation. Interpretation is based on recommendations of the National Kidney Foundation-Kidney Disease Outcomes Quality Initiative (NKF-KDOQI) published in 2014. Specimen Plasma specimen Performing Organization Address City/[facility]/Zipcode Phone Number [facility] DEPARTMENT OF PATHOLOGY AND [address] [place] [address] Basic metabolic panel (03/02/2019 4:00 AM CDT)Only the most recent of24 resultswithin the time period is included. [facility] Sodium 135 135 - 148 mEq/L [facility] Potassium 3.8 3.5 - 5.0 mEq/L [facility] Chloride 98 98 - 112 mEq/L [facility] CO2 24 24 - 31 mEq/L [facility] Anion gap 13@ANIO 7 - 15 mEq/L [facility] BUN 24 (H) 8 - 23 mg/dL [facility] Creatinine 1.27 (H) 0.50 - 0.90 mg/dL [facility] Glucose 101 (H) 65 - 99 mg/dL [facility] Calcium 9.2 8.8 - 10.2 mg/dL [facility] Specimen Plasma specimen Performing Organization Address City/State/[facility] Phone Number [facility] DEPARTMENT OF PATHOLOGY AND [address] [place] [phone] [place] [address] Smear review (03/01/2019 6:20 AM CDT)Only the most recent of5 resultswithin the time period is included. Platelet slide review Brenda adequate [facility] Anisocytosis Moderate [facility] Polychromasia Moderate [facility] Ovalocytes Moderate [facility] Specimen Performing Organization Address City/[facility] Phone Number [facility] DEPARTMENT OF PATHOLOGY AND [address] [place] [phone] [place] [phone] Magnesium level (03/01/2019 4:00 AM CDT)Only the most recent of14 resultswithin the time period is included. Magnesium 1.6 1.6 - 2.4 mg/dL [facility] Specimen Plasma specimen Performing Organization Address City/[facility] Phone Number [facility] DEPARTMENT OF PATHOLOGY AND [address] [place] [phone] Osmolality, urine (02/28/2019 4:00 AM CDT)Only the most recent of2 resultswithin the time period is included. Osmolality, urine 304Comment: 50 - 1,400 [facility] double mOsm/kg HOSPITAL checked. Specimen Urine Performing Organization Address City/[facility] Phone Number [facility] DEPARTMENT OF PATHOLOGY AND [address] [place], [place] [phone] [place] [phone] B natriuretic peptide (02/27/2019 6:20 AM CDT)Only the most recent of9 resultswithin the time period is included. BNP 748 (H) 0 - 100 pg/mL [facility] Specimen Blood Performing Organization Address City/State/Zipcode Phone Number [facility] DEPARTMENT OF PATHOLOGY AND [address] [place] [phone] [place] [phone] Gram stain (02/25/2019 6:03 AM CDT) Gram stain result Many Gram negative rods [facility] Comment: Specimen Information Specimen Source: Urine Specimen Site: Random void Specimen Urine - Random void Performing Organization Address City/[facility]/Zipcode Phone Number [facility] DEPARTMENT OF PATHOLOGY AND [address] [place] [phone] [place] [phone] Urine culture (02/25/2019 6:03 AM CDT) Pathologist [facility] Urine culture Klebsiella pneumoniae [facility] isolate >10-5 cfu/ml [facility] The performance characteristics of this assay on this isolate were validated by the Microbiology Laboratory at [facility].This source has not been approved by the U.S. Food and Drug Administration.The results are not intended to be used as the sole means for clinical diagnosis or patient management.The Microbiology Laboratory is authorized under the clinical Laboratory Improvement Amendments of 1988 (CLIA-88) to perform high complexity testing. (A) Comment: Specimen Information Specimen Source: Urine Specimen Site: Random void Urine culture Escherichia coli [facility] isolate >10-5 cfu/ml [facility] The performance characteristics of this assay on this isolate were validated by the Microbiology Laboratory at [facility].This source has not been approved by the U.S. Food and Drug Administration.The results are not intended to be used as the sole means for clinical diagnosis or patient management.The Microbiology Laboratory is authorized under the clinical Laboratory Improvement Amendments of 1988 (CLIA-88) to perform high complexity testing. (A) Specimen Urine - Random void Organism Antibiotic Method Susceptibility Klebsiella pneumoniae Amikacin KB mm: Susceptible Klebsiella pneumoniae Ampicillin KB mm: Resistant Klebsiella pneumoniae Aztreonam KB mm: Susceptible Klebsiella pneumoniae Cefepime KB mm: Susceptible Klebsiella pneumoniae Cefoxitin KB mm: Resistant Klebsiella pneumoniae Ceftazidime KB mm: Susceptible Klebsiella pneumoniae Ceftriaxone KB mm: Susceptible Klebsiella pneumoniae Cefuroxime Sodium KB mm: Resistant Klebsiella pneumoniae Cephalothin KB mm: Resistant Klebsiella pneumoniae Ciprofloxacin KB mm: Susceptible Klebsiella pneumoniae Gentamicin KB mm: Susceptible Klebsiella pneumoniae Imipenem KB mm: Susceptible Klebsiella pneumoniae Levofloxacin KB mm: Susceptible Klebsiella pneumoniae Meropenem KB mm: Susceptible Klebsiella pneumoniae Nitrofurantoin KB mm: Resistant Klebsiella pneumoniae Piperacillin/Tazobactam KB mm: Susceptible Klebsiella pneumoniae Tetracycline KB mm: Resistant Klebsiella pneumoniae Tobramycin KB mm: Susceptible Klebsiella pneumoniae Trimethoprim/Sulfamethoxazole KB mm: Susceptible Escherichia coli Amikacin KB mm: Susceptible Escherichia coli Ampicillin KB mm: Susceptible Escherichia coli Aztreonam KB mm: Susceptible Escherichia coli Cefepime KB mm: Susceptible Escherichia coli Cefoxitin KB mm: Resistant Escherichia coli Ceftazidime KB mm: Susceptible Escherichia coli Ceftriaxone KB mm: Susceptible Escherichia coli Cefuroxime Sodium KB mm: Resistant Escherichia coli Cephalothin KB mm: Resistant Escherichia coli Ciprofloxacin KB mm: Susceptible Escherichia coli Gentamicin KB mm: Susceptible Escherichia coli Imipenem KB mm: Susceptible Escherichia coli Levofloxacin KB mm: Susceptible Escherichia coli Meropenem KB mm: Susceptible Escherichia coli Nitrofurantoin KB mm: Resistant Escherichia coli Piperacillin/Tazobactam KB mm: Susceptible Escherichia coli Tetracycline KB mm: Resistant Escherichia coli Tobramycin KB mm: Susceptible Escherichia coli Trimethoprim/Sulfamethoxazole KB mm: Susceptible Performing Organization Address [facility] Phone Number [facility] DEPARTMENT OF PATHOLOGY AND [address] [place] [phone] [place] [phone] Type and screen (02/25/2019 4:45 AM CDT)Only the most recent of2 resultswithin the time period is included. ABO grouping B [facility] Rh type POS [facility] [facility] Antibody screen (gel) NEG [facility] Specimen Blood Performing Organization Address City/[facility] Phone Number [facility] DEPARTMENT OF PATHOLOGY AND [address] [place] [phone] Urinalysis, automated with microscopy (02/24/2019 9:30 PM CDT) Color, UA Straw [facility] Appearance, UA Hazy [facility] Specific gravity, UA 1.008 1.001 - 1.035 [facility] pH, UA 8.0 5.0 - 8.5 [facility] Protein, UA Negative Negative [facility] Glucose, UA Negative Negative [facility] Ketones, UA Negative Negative [facility] Bilirubin, UA Negative Negative [facility] Blood, UA Small (A) Negative [facility] Nitrite, UA Negative Negative [facility] Urobilinogen, UA <2.0 <2.0 [facility] Leukocyte esterase, Large (A) Negative [facility] Epithelial cells, UA <1 /HPF [facility] WBC, UA 161 (H) 0 - 4 /HPF [facility] RBC, UA 1 0 - 5 /HPF [facility] Bacteria, UA Moderate (A) None seen [facility] WBC clumps, UA Few (A) [facility] Yeast, UA Few (A) [facility] Yeast with None seen [facility] pseudohyphae, HOSPITAL Specimen Urine Performing Organization Address [facility] [place] Phone Number [facility] DEPARTMENT OF PATHOLOGY AND [address] [place] [phone] Reticulocyte count (02/24/2019 4:15 AM CDT)Only the most recent of2 resultswithin the time period is included. Retic %, auto 5.2 (H) 0.5 - 2.1 % [facility] Retic absolute, 0.1370 (H) 0.0210 - 0.1155 [facility] auto m/uL HOSPITAL Specimen Blood Performing Organization Address [facility] [place] Phone Number [facility] DEPARTMENT OF PATHOLOGY AND [address] [place] [phone] Iron level (02/24/2019 4:15 AM CDT) Iron level 78 37 - 145 ug/dL [facility] Specimen Plasma specimen Performing Organization Address [facility] [place] Phone Number [facility] DEPARTMENT OF PATHOLOGY AND [address] [place] [phone] [address] XR Chest 1 Vw Portable (02/22/2019 6:48 AM CDT)Only the most recent of5 resultswithin the time period is included. Specimen Narrative Performed At EXAMINATION:XR CHEST 1 VW PORTABLE [facility] CLINICAL HISTORY:cough IMPRESSION: Follow-up exam demonstrates mild congestive changes and small effusions to be stable. There are no new infiltrates. [facility]-[id number] Procedure Note Hm Interface, Radiology Results Incoming - 02/22/2019 7:14 AM CDT EXAMINATION: XR CHEST 1 VW PORTABLE CLINICAL HISTORY: cough IMPRESSION: Follow-up exam demonstrates mild congestive changes and small effusions to be stable. There are no new infiltrates. [facility]-[id number] Performing Organization Address City/[facility]/Zipcode Phone Number [facility] [address] [place] [address] Troponin (02/21/2019 1:38 AM CDT) Pathologist [facility] Troponin 0.013 0.000 - 0.040 [facility] Comment: ng/mL [facility] changed methodology effective: 10/27/2018 at 10:00 am The new method has a 99th percentile cutoff of 0.040 ng/mL Specimen Plasma specimen Performing Organization Address City/[facility] Phone Number [facility] DEPARTMENT OF PATHOLOGY AND [address] [place] [address] GENOMIC MEDICINE [facility] [address] [place] [phone] ECG 12 lead (02/21/2019 1:01 AM CDT)Only the most recent of4 resultswithin the time period is included. Ventricular rate 74 [facility] Atrial rate 74 [facility] IL interval 184 [facility] QRSD interval 98 [facility] QT interval 410 [facility] QTC interval 455 [facility] P axis 1 39 [facility] QRS axis 1 21 [facility] T wave axis 144 [facility] MUSE EKG impression Normal sinus [facility] MUSE rhythm-Nonspecific T wave abnormality-Abnormal ECG-In automated comparison with ECG of 07-FEB-2019 07:38,-No significant change was found- Specimen Narrative Performed At Performing Organization Address [facility] Phone Number [facility] MUSE [address] [place] [address] POC glucose (02/20/2019 8:37 AM CDT)Only the most recent of53 resultswithin the time period is included. Pathologist [facility] POC glucose 103 (H) 65 - 99 mg/dL [facility] Comment: HOSPITAL Meter ID: [id number] Histologist Technologist: Maria G Molina Specimen Performing Organization Address City/[facility] Phone Number [facility] DEPARTMENT OF PATHOLOGY AND [address] [place] [address] Hemoglobin A1c (02/19/2019 12:20 PM CDT) Pathologist [facility] Hemoglobin A1C 5.9 (H) 4.0 - 5.6 % [facility] Comment: HOSPITAL HbA1c cutoffs for diagnosing diabetes: 4.0% - 5.6%=normal 5.7% - 6.4%=increased risk for diabetes (prediabetes) >=6.5%=diabetes Goals for glycemic control (ADA 2016) < 7.0%Target for non adults with diabetes. More or less stringent targets may be appropriate for individual patients. <7.5% Target for Children and adolescents with type 1 diabetes. Specimen Blood Performing Organization Address [facility] [place] Phone Number [facility] DEPARTMENT OF PATHOLOGY AND [address] [place] [phone] C difficile toxin (02/18/2019 2:10 PM CDT) Pathologist [facility] Clostridium No Clostridium difficle toxin present [facility] difficile toxin Comment: HOSPITAL Specimen Information Specimen Source: Stool Specimen Site: Nonpreserved Specimen Stool - Nonpreserved Performing Organization Address City/[facility] Phone Number [facility] DEPARTMENT OF PATHOLOGY AND [address] [place] [phone] Sodium level (02/16/2019 4:00 PM CDT)Only the most recent of5 resultswithin the time period is included. Pathologist [facility] Sodium 131 (L) 135 - 148 mEq/L [facility] Specimen Plasma specimen Performing Organization Address City/[facility]/Zipcode Phone Number [facility] DEPARTMENT OF PATHOLOGY AND [address] [place] [address] [place] [address] Thyroid stimulating hormone (02/13/2019 3:00 PM CDT)Only the most recent of2 resultswithin the time period is included. TSH 4.77 (H) 0.27 - 4.20 uIU/mL [facility] Specimen Plasma specimen Performing Organization Address City/[facility] Phone Number [facility] DEPARTMENT OF PATHOLOGY AND [address] [place] [phone] [place] [address] [place] [address] T4, free (02/13/2019 3:00 PM CDT) T4, free 0.9 0.9 - 1.7 ng/dL [facility] Specimen Plasma specimen Performing Organization Address City/[facility] Phone Number [facility] DEPARTMENT OF PATHOLOGY AND [address] [place] [phone] Surgical pathology request (02/12/2019 2:28 PM CDT)Only the most recent of2 resultswithin the time period is included. [facility] DEPARTMENT OF PATHOLOGY AND GENOMIC MEDICINE Surgical pathology See link below [facility] DEPARTMENT OF report for PDF Lab PATHOLOGY AND Report GENOMIC MEDICINE Result status This is Final [facility] DEPARTMENT OF Report for PATHOLOGY AND [id number] GENOMIC MEDICINE Specimen Performing Organization Address [facility] Phone Number [facility] DEPARTMENT OF PATHOLOGY AND [address] [place] [address] GENOMIC MEDICINE CBC hemogram (02/12/2019 6:00 AM CDT)Only the most recent of2 resultswithin the time period is included. WBC 12.39 (H) 4.50 - 11.00 k/uL [facility] RBC 2.86 (L) 4.20 - 5.50 m/uL [facility] HGB 8.3 (L) 12.0 - 16.0 g/dL [facility] HCT 25.9 (L) 37.0 - 47.0 % [facility] MCV 90.6 82.0 - 100.0 fL [facility] MCH 29.0 27.0 - 34.0 pg [facility] MCHC 32.0 31.0 - 37.0 g/dL [facility] RDW - SD 55.8 (H) 37.0 - 55.0 fL [facility] MPV 10.8 8.8 - 13.2 fL [facility] Platelet count 201 150 - 400 k/uL [facility] Nucleated RBC 0.00 /100 WBC [facility] Specimen Performing Organization Address City/[facility]/Zipcode Phone Number [facility] DEPARTMENT OF PATHOLOGY AND [address] [place] [phone] Sodium level, urine, random (02/11/2019 1:20 PM CDT)Only the most recent of2 resultswithin the time period is included. Sodium, urine, random <20 mEq/L [facility] Specimen Urine Performing Organization Address [facility] Phone Number [facility] DEPARTMENT OF PATHOLOGY AND [address] [place] [address] Comprehensive metabolic panel (02/11/2019 4:00 AM CDT)Only the most recent of3 resultswithin the time period is included. Sodium 127 (L) 135 - 148 [facility] mEq/L [facility] Potassium 4.5 3.5 - 5.0 [facility] mEq/L [facility] Chloride 92 (L) 98 - 112 mEq/L [facility] CO2 24 24 - 31 mEq/L [facility] Anion gap 11@ANIO 7 - 15 mEq/L [facility] BUN 40 (H) 8 - 23 mg/dL [facility] Creatinine 1.55 (H) 0.50 - 0.90 [facility] mg/dL [facility] Glucose 123 (H) 65 - 99 mg/dL [facility] Calcium 9.1 8.8 - 10.2 [facility] mg/dL [facility] Protein 5.7 (L) 6.3 - 8.3 g/dL [facility] Comment: HOSPITAL 4.6-7.0 g/dL 1 week 4.4-7.6 g/dL 7 months-1year5.1-7.3 g/dL 1-2 years5.6-7.5 g/dL >3 years6.0-8.0 g/dL 18-150 6.3-8.3 g/dL Albumin 2.4 (L) 3.5 - 5.0 g/dL [facility] A/G ratio 0.7 0.7 - 3.8 [facility] Alkaline phosphatase 88 35 - 104 U/L [facility] AST 156 (H) 10 - 35 U/L [facility] ALT 108 (H) 5 - 50 U/L [facility] Total bilirubin 0.8 0.0 - 1.2 [facility] mg/dL HOSPITAL Specimen Plasma specimen Performing Organization Address City/[facility] Phone Number [facility] DEPARTMENT OF PATHOLOGY AND [address] [place] [address] Occult blood, stool (02/10/2019 7:08 AM CDT) Occult blood, Positive for Occult blood (A) [facility] stool Comment: HOSPITAL Specimen Information Specimen Source: Stool Specimen Site: Nonpreserved Specimen Stool - Nonpreserved Performing Organization Address City/[facility] Phone Number [facility] DEPARTMENT OF PATHOLOGY AND [address] [place] [address] NM GI Bleeding Study (02/09/2019 11:34 AM CDT) Specimen Narrative Performed At Procedure:NM GI BLEEDING STUDY [facility] Clinical History:anemia Technique: 4 cc of the patient's blood were removed and the RBCs labeled in vitro with 25 mCi of [id number]. The labeled blood was then reinjected into the patient and dynamic imaging of the abdomen was performed for 1 hour. Findings There is normal activity in the blood pool structures. Faint activity moving in the left upper quadrant most likely represents an artifact from free technetium pertechnetate. Impression: Faint activity in the left upper quadrant most likely represents an artifact from free technetium pertechnetate. However, slight oozing of blood from small bowel cannot be excluded. [facility]-[id number] Procedure Note Interface, Radiology Results Incoming - 02/09/2019 11:47 AM CDT Procedure: NM GI BLEEDING STUDY Clinical History: anemia Technique: 4 cc of the patient's blood were removed and the RBCs labeled in vitro with 25 mCi of [id number]. The labeled blood was then reinjected into the patient and dynamic imaging of the abdomen was performed for 1 hour. Findings There is normal activity in the blood pool structures. Faint activity moving in the left upper quadrant most likely represents an artifact from free technetium pertechnetate. Impression: Faint activity in the left upper quadrant most likely represents an artifact from free technetium pertechnetate. However, slight oozing of blood from small bowel cannot be excluded. [facility]-[id number] Performing Organization Address [facility] Phone Number [facility] [address] [place] [phone] Total iron binding capacity (02/09/2019 4:00 AM CDT) Pathologist [facility] Iron level 14 (L) 37 - 145 ug/dL [facility] Iron binding capacity 127 (L) 200 - 400 ug/dL [facility] % Saturation 11.0 (L) 15.0 - 38.0 % [facility] Specimen Plasma specimen Performing Organization Address [facility] [place] Phone Number [facility] DEPARTMENT OF PATHOLOGY AND [address] [place] [phone] GENOMIC MEDICINE [address] [address] Saccharomyces cerevisiae Abs, IgG and IgA (02/09/2019 4:00 AM CDT) Saccharomyces 2.7 0.0 - 24.9 [facility] cerevisiae Ab, IgG Comment: Units Performed by [employer], [address] [place] [phone] [email or web address], Jh Agudelo MD - Lab. Director Saccharomyces 2.2 0.0 - 24.9 [facility] cerevisiae Ab, IgA Comment: Units INTERPRETIVE INFORMATION: S. cerevisiae Antibody, IgA and IgG 20.0 Units or less........ Negative 20.1 to 24.9 Units ......... Equivocal 25.0 Units or greater ...... Positive Saccharomyces cerevisiae IgG antibodies are found in 60-70 percent of Crohn disease (CD) patients and 10-15 percent of ulcerative colitis (UC) patients. Saccharomyces cerevisiae IgA antibodies are found in about 35 percent of CD patients but less than 1 percent in UC patients. Detection of both Saccharomyces IgG and IgA antibodies in the same serum specimen is highly specific for CD. Specimen Serum Performing Organization Address City/State/Zipcode Phone Number [facility] [address] [place] [address] [facility] [address] [place] [address] Anti-neutrophilic cytoplasmic Abs panel (02/09/2019 4:00 AM CDT) [facility] ANCA screen Negative Negative [facility] Specimen Blood Performing Organization Address City/[facility]/Zipcode Phone Number [facility] DEPARTMENT OF PATHOLOGY AND [address] [place] [phone] Prothrombin time with INR (02/09/2019 4:00 AM CDT)Only the most recent of3 resultswithin the time period is included. [facility] Prothrombin time 15.4 (H) 11.5 - 14.5 [facility] INR 1.2 [facility] Comment: [facility] International Normalized Ratio (INR) is a therapeutic HOSPITAL monitoring tool for patients who are stable on oral anticoagulant therapy. An INR of 2.0-3.0 is suggested for deep vein thrombosis/pulmonary embolism. Specimen Blood Performing Organization Address City/[facility] Phone Number [facility] DEPARTMENT OF PATHOLOGY AND [address] [place] [phone] Serum electrophoresis (02/09/2019 4:00 AM CDT) [facility] Protein 5.2 (L) 6.3 - 8.3 [facility] Comment: g/dL [facility] [place] 4.6-7.0 g/dL HOSPITAL 1 week 4.4-7.6 g/dL 7 months-1year5.1-7.3 g/dL 1-2 years5.6-7.5 g/dL >3 years6.0-8.0 g/dL 18-150 6.3-8.3 g/dL [facility] albumin 3.42 (L) 4.00 - 5.30 [facility] g/dL [facility] SPE alpha 1 0.26 (H) 0.10 - 0.25 [facility] g/dL [facility] SPE alpha 2 0.74 0.58 - 0.84 [facility] g/dL [facility] SPE beta 0.54 0.50 - 1.10 [facility] g/dL [facility] SPE gamma 0.24 (L) 0.60 - 1.30 [facility] g/dL [facility] SPE extended See Comment [facility] interpretation Comment: [facility] Total protein and albumin are decreased while the relative concentrations HOSPITAL of alpha-1 globulins and alpha-2 globulins are increased indicating an acute phase response to infection, inflammation or tissue injury. Gamma globulins are moderately decreased. SPE interpretation See CommentComment: [facility] Hu Rosa MD, PhD; Kristin Hernandez, PhD; [facility] MD Ishmael Specimen Serum Performing Organization Address [facility] [place] Phone Number [facility] DEPARTMENT OF PATHOLOGY AND [address] [place] [phone] [place] [phone] Phosphorus level (02/09/2019 4:00 AM CDT)Only the most recent of4 resultswithin the time period is included. Phosphorus 2.9 2.4 - 4.5 mg/dL [facility] Specimen Plasma specimen Performing Organization Address [facility] [place] Phone Number [facility] DEPARTMENT OF PATHOLOGY AND [address] [place] [phone] [address] LDH (02/09/2019 4:00 AM CDT) LDH 136 87 - 225 U/L [facility] Specimen Plasma specimen Performing Organization Address [facility] [place] Phone Number [facility] DEPARTMENT OF PATHOLOGY AND [address] [place] [phone] [address] Haptoglobin (02/09/2019 4:00 AM CDT) Haptoglobin 300 (H) 30 - 200 mg/dL [facility] Specimen Plasma specimen Performing Organization Address [facility] [place] Phone Number [facility] DEPARTMENT OF PATHOLOGY AND [address] [place] [phone] Folate level (02/09/2019 4:00 AM CDT) Folate >20.0 4.8 - 24.2 ng/mL [facility] Specimen Serum Performing Organization Address [facility]/Zipcode Phone Number [facility] DEPARTMENT OF PATHOLOGY AND [address] [place] [phone] [place] [phone] Ferritin level (02/09/2019 4:00 AM CDT) Ferritin level 485 (H) 13 - 150 ng/mL [facility] Specimen Plasma specimen Performing Organization Address City/[facility] Phone Number [facility] DEPARTMENT OF PATHOLOGY AND [address] [place] [phone] [place] [phone] Vitamin B12 level (02/09/2019 4:00 AM CDT) Vitamin B12 1,810 (H) 211 - 946 [facility] Comment: pg/mL HOSPITAL Significant overlap exists between normal and deficiency states. However, most patients with deficiencies will have Serum B12 <200 pg/mL. Specimen Serum Performing Organization Address [facility] Phone Number [facility] DEPARTMENT OF PATHOLOGY AND [address] [place] [phone] Ionized calcium (02/09/2019 4:00 AM CDT)Only the most recent of4 resultswithin the time period is included. pH 7.41 [facility] Ionized calcium 1.20 1.11 - 1.32 mmol/L [facility] Specimen Plasma specimen Performing Organization Address City/[facility] [place] Phone Number [facility] DEPARTMENT OF PATHOLOGY AND [address] [place] [phone] [place] [phone] Hemoglobin & hematocrit (02/08/2019 2:10 PM CDT)Only the most recent of5 resultswithin the time period is included. HGB 8.1 (L) 12.0 - 16.0 g/dL [facility] HCT 23.8 (L) 37.0 - 47.0 % [facility] Specimen Blood Performing Organization Address City/[facility] Phone Number [facility] DEPARTMENT OF PATHOLOGY AND [address] [place] [phone] Transfuse RBC (02/08/2019 6:27 AM CDT)Only the most recent of2 resultswithin the time period is included.Creatinine level, urine, random (02/07/2019 6:45 PM CDT) Pathologist [facility] Creatinine, urine, 19 mg/dL [facility] random HOSPITAL Specimen Urine Performing Organization Address [facility] [place] Phone Number [facility] DEPARTMENT OF PATHOLOGY AND [address] [place] [phone] Partial thromboplastin time, activated (02/07/2019 3:10 PM CDT)Only the most recent of7 resultswithin the time period is included. [facility] PTT 35.3 23.0 - 36.0 [facility] Comment: [facility] PTT therapeutic range for unfractionated heparin is 61.0-112.0 seconds which corresponds to Anti-Xa 0.3-0.7 U/ml. Specimen Blood Performing Organization Address [facility] [place] Phone Number [facility] DEPARTMENT OF PATHOLOGY AND [address] [place] [phone] Anti Xa, unfractionated (02/06/2019 9:45 PM CDT)Only the most recent of2 resultswithin the time period is included. [facility] Anti Xa, 0.23 (L)Comment: 0.30 - 0.70 [facility] unfractionated Therapeutic Range: U/mL [facility] 0.30 - 0.70 U/mL HOSPITAL Specimen Blood Performing Organization Address [facility] [place] Phone Number [facility] DEPARTMENT OF PATHOLOGY AND [address] [place] [phone] Creatine kinase, total (CPK) (02/06/2019 3:48 PM CDT)Only the most recent of3 resultswithin the time period is included. [facility] Creatine kinase 111 26 - 192 U/L [facility] Specimen Plasma specimen Performing Organization Address [facility] [place] Phone Number [facility] DEPARTMENT OF PATHOLOGY AND [address] [place] [phone] Sodium level, syringe (02/06/2019 9:08 AM CDT)Only the most recent of3 resultswithin the time period is included. Sodium, syringe 133 (L) 135 - 148 mEq/L [facility] Specimen Blood Performing Organization Address City/[facility] Phone Number [facility] DEPARTMENT OF PATHOLOGY AND [address] [place] [phone] Potassium, syringe (02/06/2019 9:08 AM CDT)Only the most recent of3 resultswithin the time period is included. Potassium, syringe 4.6 3.5 - 5.0 mEq/L [facility] Specimen Blood Performing Organization Address [facility] [place] Phone Number [facility] [facility] DEPART[facility] OF [facility]OLOGY AND [address] [place] [id number] Ionized calcium, arterial (02/06/2019 9:08 AM CDT)Only the most recent of3 resultswithin the time period is included. Ionized calcium, 1.07 (L) 1.11 - 1.32 [facility] arterial mmol/L HOSPITAL Specimen Blood Performing Organization Address [facility] [place] Phone Number [facility] DEPARTMENT OF PATHOLOGY AND [address] [place] [phone] Hemoglobin, syringe (02/06/2019 9:08 AM CDT)Only the most recent of3 resultswithin the time period is included. Hemoglobin, syringe 8.5 (L) 12.0 - 16.0 g/dL [facility] Specimen Blood Performing Organization Address [facility] Phone Number [facility] DEPARTMENT OF PATHOLOGY AND [address] [place] [phone] Glucose level, syringe (02/06/2019 9:08 AM CDT)Only the most recent of3 resultswithin the time period is included. Glucose, syringe 103 (H) 65 - 99 mg/dL [facility] Specimen Blood Performing Organization Address City/[facility] [place] Phone Number [facility] DEPARTMENT OF PATHOLOGY AND [address] [place] [phone] [place] [phone] Arterial blood gas, corrected (02/06/2019 9:08 AM CDT)Only the most recent of3 resultswithin the time period is included. pH, arterial 7.32 (L) 7.35 - 7.45 [facility] pCO2, arterial 37 35 - 45 mmHg [facility] pO2, arterial 271 (H) 80 - 90 mmHg [facility] Temperature, Celsius 37.0 Degrees C [facility] O2 saturation, 100 95 - 100 % [facility] arterial HOSPITAL pH, arterial 7.32 [facility] pCO2, arterial 37 mmHg [facility] pO2, arterial 271 mmHg [facility] Base excess, arterial -6 (L) -2 - 2 mEq/L [facility] Specimen Blood Performing Organization Address [facility] [place] Phone Number [facility] DEPARTMENT OF PATHOLOGY AND [address] [place] [phone] Activated clotting time (02/06/2019 8:24 AM CDT)Only the most recent of3 resultswithin the time period is included. Pathologist [facility] Activated clotting 229 (H) 96 - 152 sec [facility] Comment: HOSPITAL Meter ID: [id number] Histologist Technologist: Basilio Vasquez Specimen Performing Organization Address [facility] [place] Phone Number [facility] DEPARTMENT OF PATHOLOGY AND [address] [place] [address] Prepare RBC, 1 Units (02/06/2019 4:15 AM CDT)Only the most recent of3 resultswithin the time period is included. Product name Red Blood Cells [facility] -1, [facility] Unit number [id number] [facility] Product code [id number] [facility] Dispense status Transfused [facility] Blood expiration [facility] date HOSPITAL Blood type code 7300 [facility] Blood type B POSITIVE [facility] Specimen Blood Performing Organization Address City/State/Zipcode Phone Number [facility] DEPARTMENT OF PATHOLOGY AND [address] [place] [address] GENOMIC MEDICINE [facility] [address] [place] [address] after 03/01/2018 Insurance Payer Benefit Plan / Subscriber ID Effective Dates Phone Address Type Group MEDICARE MEDICARE PART A xxxxxxxxxx 2002-Present [place], [place] Medicare [place] B Advance Directives For more information, please contact: [phone] Type Date Recorded 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
--- OUTSIDE RECORDS SUMMARY | 2019-03-02 16:57 | XMS REPORT ---
:1935 [facility] Organization [facility] Address [address] [place] [address] Dr. Mcduffie [address] [place] [id number] Care Team Providers Name Role Phone [place] [...] Comments SODIUM (BEAKER) (test 134 meq/L 136-145 pejg=541) POTASSIUM (BEAKER) (test 4.5 meq/L 3.5-5.1 Specimen slightly hemolyzed hufk=122) CHLORIDE (BEAKER) (test 108 meq/L 98-107 rlje=030) CO2 (BEAKER) (test cals=536) 18 meq/L 22-29 BLOOD UREA NITROGEN (BEAKER) 15 mg/dL 7-21 (test wjsf=026) CREATININE (BEAKER) (test 1.04 mg/dL 0.57-1.25 Specimen slightly hemolyzed nqhp=361) GLUCOSE RANDOM (BEAKER) 117 mg/dL 70-105 (test wuyn=433) CALCIUM (BEAKER) (test 8.8 mg/dL 8.4-10.2 pksa=772) EGFR (BEAKER) (test 51 mL/min/1.73 sq m ESTIMATED GFR IS NOT iujq=7320) ACCURATE CREATININE CLEARANCE IN PREDICTING GLOMERULAR FILTRATION RATE. ESTIMATED GFR IS NOT APPLICABLE FOR DIALYSIS PATIENTS. CBC W/PLT COUNT & AUTO [id number] 06:55:00 Test Item Value Reference Range Comments WHITE BLOOD CELL COUNT (BEAKER) (test urha=275) 10.1 K/ L 3.5-10.5 RED BLOOD CELL COUNT (BEAKER) (test ivgl=369) 3.36 M/ L 3.93-5.22 HEMOGLOBIN (BEAKER) (test ynyq=915) 10.6 GM/DL 11.2-15.7 HEMATOCRIT (BEAKER) (test jbdv=128) 33.4 % 34.1-44.9 MEAN CORPUSCULAR VOLUME (BEAKER) (test nrve=915) 99.4 fL 79.4-94.8 MEAN CORPUSCULAR HEMOGLOBIN (BEAKER) (test 31.5 pg 25.6-32.2 dsek=893) MEAN CORPUSCULAR HEMOGLOBIN CONC (BEAKER) (test 31.7 GM/DL 32.2-35.5 fcle=274) RED CELL DISTRIBUTION WIDTH (BEAKER) (test 13.2 % 11.7-14.4 wthw=219) PLATELET COUNT (BEAKER) (test darj=245) 206 K/CU MM 150-450 MEAN PLATELET VOLUME (BEAKER) (test wxuc=848) 11.1 fL 9.4-12.3 NUCLEATED RED BLOOD CELLS (BEAKER) (test 0 /100 WBC 0-0 eosc=587) NEUTROPHILS RELATIVE PERCENT (BEAKER) (test 78 % bxyk=154) LYMPHOCYTES RELATIVE PERCENT (BEAKER) (test 12 % npdf=252) MONOCYTES RELATIVE PERCENT (BEAKER) (test 7 % wrck=367) EOSINOPHILS RELATIVE PERCENT (BEAKER) (test 2 % bazd=588) BASOPHILS RELATIVE PERCENT (BEAKER) (test 0 % vwvn=127) NEUTROPHILS ABSOLUTE COUNT (BEAKER) (test 7.86 K/ L 1.56-6.13 hdpi=467) LYMPHOCYTES ABSOLUTE COUNT (BEAKER) (test 1.21 K/ L 1.18-3.74 yxyv=770) MONOCYTES ABSOLUTE COUNT (BEAKER) (test 0.73 K/ L 0.24-0.36 znlr=691) EOSINOPHILS ABSOLUTE COUNT (BEAKER) (test 0.19 K/ L 0.04-0.36 deog=333) BASOPHILS ABSOLUTE COUNT (BEAKER) (test 0.04 K/ L 0.01-0.08 bhgx=228) IMMATURE GRANULOCYTES-RELATIVE PERCENT (BEAKER) 0 % 0-1 (test umts=2226) BASIC METABOLIC [id number] 05:32:00 Test Item Value Reference Range Comments SODIUM (BEAKER) (test 135 meq/L 136-145 mrmb=232) POTASSIUM (BEAKER) (test 3.9 meq/L 3.5-5.1 jwqt=311) CHLORIDE (BEAKER) (test 108 meq/L 98-107 ytfb=356) CO2 (BEAKER) (test 20 meq/L 22-29 qeyi=797) BLOOD UREA NITROGEN 16 mg/dL 7-21 (BEAKER) (test artm=013) CREATININE (BEAKER) (test 1.03 mg/dL 0.57-1.25 jeed=493) GLUCOSE RANDOM (BEAKER) 102 mg/dL 70-105 (test ukuf=631) CALCIUM (BEAKER) (test 8.7 mg/dL 8.4-10.2 kzuu=853) EGFR (BEAKER) (test 52 mL/min/1.73 sq m ESTIMATED GFR IS NOT iylp=6045) ACCURATE CREATININE CLEARANCE IN PREDICTING GLOMERULAR FILTRATION RATE. ESTIMATED GFR IS NOT APPLICABLE FOR DIALYSIS PATIENTS. CBC W/PLT COUNT & AUTO [id number] 05:11:00 Test Item Value Reference Range Comments WHITE BLOOD CELL COUNT (BEAKER) (test ijrp=873) 6.0 K/ L 3.5-10.5 RED BLOOD CELL COUNT (BEAKER) (test ulfr=408) 3.26 M/ L 3.93-5.22 HEMOGLOBIN (BEAKER) (test gzse=224) 10.0 GM/DL 11.2-15.7 HEMATOCRIT (BEAKER) (test aagy=930) 31.7 % 34.1-44.9 MEAN CORPUSCULAR VOLUME (BEAKER) (test jxuf=520) 97.2 fL 79.4-94.8 MEAN CORPUSCULAR HEMOGLOBIN (BEAKER) (test 30.7 pg 25.6-32.2 remz=615) MEAN CORPUSCULAR HEMOGLOBIN CONC (BEAKER) (test 31.5 GM/DL 32.2-35.5 toip=892) RED CELL DISTRIBUTION WIDTH (BEAKER) (test 13.2 % 11.7-14.4 qlzr=231) PLATELET COUNT (BEAKER) (test owup=809) 199 K/CU MM 150-450 MEAN PLATELET VOLUME (BEAKER) (test zkre=738) 10.7 fL 9.4-12.3 NUCLEATED RED BLOOD CELLS (BEAKER) (test 0 /100 WBC 0-0 iqkd=765) NEUTROPHILS RELATIVE PERCENT (BEAKER) (test 60 % mrgi=761) LYMPHOCYTES RELATIVE PERCENT (BEAKER) (test 23 % adcv=727) MONOCYTES RELATIVE PERCENT (BEAKER) (test 13 % jtew=911) EOSINOPHILS RELATIVE PERCENT (BEAKER) (test 3 % ryoz=481) BASOPHILS RELATIVE PERCENT (BEAKER) (test 0 % beqb=766) NEUTROPHILS ABSOLUTE COUNT (BEAKER) (test 3.59 K/ L 1.56-6.13 tllw=036) LYMPHOCYTES ABSOLUTE COUNT (BEAKER) (test 1.36 K/ L 1.18-3.74 fiws=213) MONOCYTES ABSOLUTE COUNT (BEAKER) (test 0.77 K/ L 0.24-0.36 auva=313) EOSINOPHILS ABSOLUTE COUNT (BEAKER) (test 0.20 K/ L 0.04-0.36 eszl=416) BASOPHILS ABSOLUTE COUNT (BEAKER) (test 0.02 K/ L 0.01-0.08 gwed=571) IMMATURE GRANULOCYTES-RELATIVE PERCENT (BEAKER) 0 % 0-1 (test uujr=2511) [id number] 07:46:00 Test Item Value Reference Range Comments MAGNESIUM (BEAKER) (test nsff=791) 2.2 mg/dL 1.6-2.6 BASIC METABOLIC [id number] 07:46:00 Test Item Value Reference Range Comments SODIUM (BEAKER) (test 135 meq/L 136-145 hphj=607) POTASSIUM (BEAKER) (test 3.6 meq/L 3.5-5.1 wqmz=565) CHLORIDE (BEAKER) (test 106 meq/L 98-107 cwfn=471) CO2 (BEAKER) (test 21 meq/L 22-29 upth=420) BLOOD UREA NITROGEN 21 mg/dL 7-21 (BEAKER) (test aryt=696) CREATININE (BEAKER) (test 1.11 mg/dL 0.57-1.25 pfll=773) GLUCOSE RANDOM (BEAKER) 97 mg/dL 70-105 (test gadp=754) CALCIUM (BEAKER) (test 8.8 mg/dL 8.4-10.2 eczt=369) EGFR (BEAKER) (test 47 mL/min/1.73 sq m ESTIMATED GFR IS NOT bvqn=2514) ACCURATE CREATININE CLEARANCE IN PREDICTING GLOMERULAR FILTRATION RATE. ESTIMATED GFR IS NOT APPLICABLE FOR DIALYSIS PATIENTS. CBC W/PLT COUNT & AUTO [id number] 07:31:00 Test Item Value Reference Range Comments WHITE BLOOD CELL COUNT (BEAKER) (test qxea=923) 7.1 K/ L 3.5-10.5 RED BLOOD CELL COUNT (BEAKER) (test dqjk=935) 3.41 M/ L 3.93-5.22 HEMOGLOBIN (BEAKER) (test vbme=172) 10.7 GM/DL 11.2-15.7 HEMATOCRIT (BEAKER) (test rlny=098) 32.7 % 34.1-44.9 MEAN CORPUSCULAR VOLUME (BEAKER) (test vlan=959) 95.9 fL 79.4-94.8 MEAN CORPUSCULAR HEMOGLOBIN (BEAKER) (test 31.4 pg 25.6-32.2 bmvn=342) MEAN CORPUSCULAR HEMOGLOBIN CONC (BEAKER) (test 32.7 GM/DL 32.2-35.5 zcjt=933) RED CELL DISTRIBUTION WIDTH (BEAKER) (test 13.2 % 11.7-14.4 mrqa=088) PLATELET COUNT (BEAKER) (test yjxv=377) 216 K/CU MM 150-450 MEAN PLATELET VOLUME (BEAKER) (test tgpp=460) 10.5 fL 9.4-12.3 NUCLEATED RED BLOOD CELLS (BEAKER) (test 0 /100 WBC 0-0 vmis=666) NEUTROPHILS RELATIVE PERCENT (BEAKER) (test 66 % yhpc=345) LYMPHOCYTES RELATIVE PERCENT (BEAKER) (test 20 % dawz=733) MONOCYTES RELATIVE PERCENT (BEAKER) (test 11 % xpmb=506) EOSINOPHILS RELATIVE PERCENT (BEAKER) (test 3 % qkdd=298) BASOPHILS RELATIVE PERCENT (BEAKER) (test 0 % hymf=102) NEUTROPHILS ABSOLUTE COUNT (BEAKER) (test 4.69 K/ L 1.56-6.13 djkc=127) LYMPHOCYTES ABSOLUTE COUNT (BEAKER) (test 1.44 K/ L 1.18-3.74 mgnx=896) MONOCYTES ABSOLUTE COUNT (BEAKER) (test 0.78 K/ L 0.24-0.36 hrtn=343) EOSINOPHILS ABSOLUTE COUNT (BEAKER) (test 0.18 K/ L 0.04-0.36 eonh=407) BASOPHILS ABSOLUTE COUNT (BEAKER) (test 0.02 K/ L 0.01-0.08 vuwk=318) IMMATURE GRANULOCYTES-RELATIVE PERCENT (BEAKER) 0 % 0-1 (test ovzs=0745) BASIC METABOLIC [id number] 14:48:00 Test Item Value Reference Range Comments SODIUM (BEAKER) (test 133 meq/L 136-145 stap=547) POTASSIUM (BEAKER) (test 4.3 meq/L 3.5-5.1 cwnn=857) CHLORIDE (BEAKER) (test 103 meq/L 98-107 qivc=846) CO2 (BEAKER) (test 21 meq/L 22-29 bqyv=564) BLOOD UREA NITROGEN 31 mg/dL 7-21 (BEAKER) (test unoa=516) CREATININE (BEAKER) (test 1.25 mg/dL 0.57-1.25 pvqd=718) GLUCOSE RANDOM (BEAKER) 105 mg/dL 70-105 (test uzyx=991) CALCIUM (BEAKER) (test 9.0 mg/dL 8.4-10.2 vkgi=121) EGFR (BEAKER) (test 41 mL/min/1.73 sq m ESTIMATED GFR IS NOT fzpu=8767) ACCURATE CREATININE CLEARANCE IN PREDICTING GLOMERULAR FILTRATION RATE. ESTIMATED GFR IS NOT APPLICABLE FOR DIALYSIS PATIENTS. [id number] 06:03:00 Test Item Value Reference Range Comments MAGNESIUM (BEAKER) (test rzir=724) 2.3 mg/dL 1.6-2.6 CBC (HEMOGRAM ONLY)2018-02-19 05:46:00 Test Item Value Reference Range Comments WHITE BLOOD CELL COUNT (BEAKER) (test tcnb=755) 8.9 K/ L 3.5-10.5 RED BLOOD CELL COUNT (BEAKER) (test lppu=487) 3.46 M/ L 3.93-5.22 HEMOGLOBIN (BEAKER) (test gupq=218) 11.0 GM/DL 11.2-15.7 HEMATOCRIT (BEAKER) (test vhda=285) 33.3 % 34.1-44.9 MEAN CORPUSCULAR VOLUME (BEAKER) (test flgc=545) 96.2 fL 79.4-94.8 MEAN CORPUSCULAR HEMOGLOBIN (BEAKER) (test 31.8 pg 25.6-32.2 lylc=694) MEAN CORPUSCULAR HEMOGLOBIN CONC (BEAKER) (test 33.0 GM/DL 32.2-35.5 nlea=594) RED CELL DISTRIBUTION WIDTH (BEAKER) (test 13.1 % 11.7-14.4 acsw=860) PLATELET COUNT (BEAKER) (test cigw=592) 218 K/CU MM 150-450 MEAN PLATELET VOLUME (BEAKER) (test amni=607) 10.9 fL 9.4-12.3 NUCLEATED RED BLOOD CELLS (BEAKER) (test 0 /100 WBC 0-0 yvby=137) POCT-GLUCOSE [id number] 14:00:00 Test Item Value Reference Range Comments POC-GLUCOSE METER (BEAKER) 283 mg/dL 70-110 TESTED AT [facility] [address] [facility] (test mcwj=4067) [facility] [address] [id number] 05:56:00 Test Item Value Reference Range Comments MAGNESIUM (BEAKER) (test dlax=413) 2.8 mg/dL 1.6-2.6 BASIC METABOLIC [id number] 05:56:00 Test Item Value Reference Range Comments SODIUM (BEAKER) (test 132 meq/L 136-145 utec=189) POTASSIUM (BEAKER) (test 4.0 meq/L 3.5-5.1 dzid=031) CHLORIDE (BEAKER) (test 104 meq/L 98-107 onko=296) CO2 (BEAKER) (test 19 meq/L 22-29 bkxh=852) BLOOD UREA NITROGEN 31 mg/dL 7-21 (BEAKER) (test xxzz=521) CREATININE (BEAKER) (test 1.28 mg/dL 0.57-1.25 jvfa=191) GLUCOSE RANDOM (BEAKER) 69 mg/dL 70-105 (test wfgt=085) CALCIUM (BEAKER) (test 8.8 mg/dL 8.4-10.2 ysly=050) EGFR (BEAKER) (test 40 mL/min/1.73 sq m ESTIMATED GFR IS NOT sybd=2515) ACCURATE CREATININE CLEARANCE IN PREDICTING GLOMERULAR FILTRATION RATE. ESTIMATED GFR IS NOT APPLICABLE FOR DIALYSIS PATIENTS. CBC (HEMOGRAM ONLY)2018-02-18 05:30:00 Test Item Value Reference Range Comments WHITE BLOOD CELL COUNT (BEAKER) (test zbnu=701) 8.4 K/ L 3.5-10.5 RED BLOOD CELL COUNT (BEAKER) (test ldnc=777) 3.53 M/ L 3.93-5.22 HEMOGLOBIN (BEAKER) (test rbng=481) 11.1 GM/DL 11.2-15.7 HEMATOCRIT (BEAKER) (test qbpn=638) 34.9 % 34.1-44.9 MEAN CORPUSCULAR VOLUME (BEAKER) (test tkqc=171) 98.9 fL 79.4-94.8 MEAN CORPUSCULAR HEMOGLOBIN (BEAKER) (test 31.4 pg 25.6-32.2 gjaw=423) MEAN CORPUSCULAR HEMOGLOBIN CONC (BEAKER) (test 31.8 GM/DL 32.2-35.5 ivdw=272) RED CELL DISTRIBUTION WIDTH (BEAKER) (test 13.2 % 11.7-14.4 ifxg=685) PLATELET COUNT (BEAKER) (test rabv=927) 205 K/CU MM 150-450 MEAN PLATELET VOLUME (BEAKER) (test cwro=403) 10.7 fL 9.4-12.3 NUCLEATED RED BLOOD CELLS (BEAKER) (test 0 /100 WBC 0-0 shdg=479) [id number] 23:41:00 Test Item Value Reference Range Comments ACTIVATED CLOTTING TIME (BEAKER) 92 sec TESTED AT [address] (test wphu=870) [place] [address] [id number] 21:56:00 Test Item Value Reference Range Comments ACTIVATED CLOTTING TIME 153 sec TESTED AT [address] (BEAKER) (test ruav=588) [place] [address] [id number] 19:28:00 Test Item Value Reference Range Comments ACTIVATED CLOTTING TIME 197 sec TESTED AT [address] (BEAKER) (test uybu=740) [place] [address] [id number] 17:41:00 Test Item Value Reference Range Comments ACTIVATED CLOTTING TIME 246 sec TESTED AT [address] (BEAKER) (test dpig=298) [place] [address] [id number] 12:36:00 Test Item Value Reference Range Comments POTASSIUM (BEAKER) (test zbse=079) 4.0 meq/L 3.5-5.1 TROPONIN [id number] 12:03:00 Test Item Value Reference Range Comments TROPONIN I (BEAKER) (test pukj=273) 3.94 ng/mL 0.00-0.03 Troponin I (TnI) levels [...] failure, acidosis, acute neurological disease, and persistent tachyarrhythmia.[id number] 11:44:00 Test Item Value Reference Range Comments MAGNESIUM (BEAKER) (test efvb=045) 1.9 mg/dL 1.6-2.6 [id number] 11:37:00 Test Item Value Reference Range Comments PARTIAL THROMBOPLASTIN TIME (BEAKER) (test 98.3 seconds 22.5-36.0 wjgh=373) [id number] 04:04:00 Test Item Value Reference Range Comments PARTIAL THROMBOPLASTIN TIME (BEAKER) (test 92.5 seconds 22.5-36.0 watr=087) TROPONIN [id number] 02:06:00 Test Item Value Reference Range Comments TROPONIN I (BEAKER) (test upxt=718) 7.11 ng/mL 0.00-0.03 Troponin I (TnI) levels [...] acute neurological disease, and persistent tachyarrhythmia.BASIC METABOLIC [id number] 01:56:00 Test Item Value Reference Range Comments SODIUM (BEAKER) (test 135 meq/L 136-145 wbya=807) POTASSIUM (BEAKER) (test 3.7 meq/L 3.5-5.1 yvaa=517) CHLORIDE (BEAKER) (test 102 meq/L 98-107 xpwk=707) CO2 (BEAKER) (test 22 meq/L 22-29 xrmx=301) BLOOD UREA NITROGEN 17 mg/dL 7-21 (BEAKER) (test vdcz=402) CREATININE (BEAKER) (test 1.49 mg/dL 0.57-1.25 lsxp=309) GLUCOSE RANDOM (BEAKER) 90 mg/dL 70-105 (test niff=283) CALCIUM (BEAKER) (test 9.2 mg/dL 8.4-10.2 epci=609) EGFR (BEAKER) (test 34 mL/min/1.73 sq m ESTIMATED GFR IS NOT mfcz=8842) ACCURATE CREATININE CLEARANCE IN PREDICTING GLOMERULAR FILTRATION RATE. ESTIMATED GFR IS NOT APPLICABLE FOR DIALYSIS PATIENTS. [id number] 01:53:00 Test Item Value Reference Range Comments PROTIME (BEAKER) (test wiau=599) 15.2 seconds 11.7-14.7 INR (BEAKER) (test yrqq=926) 1.2 <=5.9 PARTIAL THROMBOPLASTIN TIME (BEAKER) (test 146.1 seconds 22.5-36.0 kjsz=373) RECOMMENDED COUMADIN/WARFARIN INR THERAPY RANGESSTANDARD DOSE: 2.0 - 3.0 Includes: PROPHYLAXIS forvenous thrombosis, systemic embolization; TREATMENT for venous thrombosis and/or pulmonary embolus.HIGH RISK: Target INR is 2.5-3.5 for patients with mechanical heart valves.PROTHROMBIN [id number] 01:50: 00 Test Item Value Reference Range Comments PROTIME (BEAKER) (test ouiw=237) 15.2 seconds 11.7-14.7 INR (BEAKER) (test fwjb=945) 1.2 <=5.9 RECOMMENDED COUMADIN/WARFARIN INR THERAPY RANGESSTANDARD DOSE: 2.0 - 3.0 Includes: PROPHYLAXIS forvenous thrombosis, systemic embolization; TREATMENT for venous thrombosis and/or pulmonary embolus.HIGH RISK: Target INR is 2.5-3.5 for patients with mechanical heart valves.CBC W/PLT COUNT & AUTO [id number] 01:43:00 Test Item Value Reference Range Comments WHITE BLOOD CELL COUNT (BEAKER) (test tfzv=442) 7.1 K/ L 3.5-10.5 RED BLOOD CELL COUNT (BEAKER) (test eqfs=657) 3.45 M/ L 3.93-5.22 HEMOGLOBIN (BEAKER) (test mxtk=338) 10.8 GM/DL 11.2-15.7 HEMATOCRIT (BEAKER) (test sgby=159) 33.2 % 34.1-44.9 MEAN CORPUSCULAR VOLUME (BEAKER) (test jcei=095) 96.2 fL 79.4-94.8 MEAN CORPUSCULAR HEMOGLOBIN (BEAKER) (test 31.3 pg 25.6-32.2 jipv=644) MEAN CORPUSCULAR HEMOGLOBIN CONC (BEAKER) (test 32.5 GM/DL 32.2-35.5 nngo=885) RED CELL DISTRIBUTION WIDTH (BEAKER) (test 13.3 % 11.7-14.4 bfxb=934) PLATELET COUNT (BEAKER) (test stdo=222) 190 K/CU MM 150-450 MEAN PLATELET VOLUME (BEAKER) (test ssfb=610) 10.5 fL 9.4-12.3 NUCLEATED RED BLOOD CELLS (BEAKER) (test 0 /100 WBC 0-0 whcr=915) NEUTROPHILS RELATIVE PERCENT (BEAKER) (test 76 % iuow=292) LYMPHOCYTES RELATIVE PERCENT (BEAKER) (test 12 % bgmt=958) MONOCYTES RELATIVE PERCENT (BEAKER) (test 10 % bwlb=045) EOSINOPHILS RELATIVE PERCENT (BEAKER) (test 1 % teos=214) BASOPHILS RELATIVE PERCENT (BEAKER) (test 0 % ijsd=315) NEUTROPHILS ABSOLUTE COUNT (BEAKER) (test 5.45 K/ L 1.56-6.13 gwea=510) LYMPHOCYTES ABSOLUTE COUNT (BEAKER) (test 0.85 K/ L 1.18-3.74 lcvo=386) MONOCYTES ABSOLUTE COUNT (BEAKER) (test 0.70 K/ L 0.24-0.36 hfnr=427) EOSINOPHILS ABSOLUTE COUNT (BEAKER) (test 0.10 K/ L 0.04-0.36 dmou=658) BASOPHILS ABSOLUTE COUNT (BEAKER) (test 0.02 K/ L 0.01-0.08 hkic=323) IMMATURE GRANULOCYTES-RELATIVE PERCENT (BEAKER) 0 % 0-1 (test agez=5240) [id number] 23:09:00 Test Item Value Reference Range Comments RPR SCREEN (BEAKER) (test avma=754) Nonreactive Nonreactive TROPONIN [id number] 21:20:00 Test Item Value Reference Range Comments TROPONIN I (BEAKER) (test uwlq=045) 7.60 ng/mL 0.00-0.03 Troponin I (TnI) levels [...] failure, acidosis, acute neurological disease, and persistent tachyarrhythmia.[id number] 18:57:00 Test Item Value Reference Range Comments PARTIAL THROMBOPLASTIN TIME (LISANDROAKER) (test 58.1 seconds 22.5-36.0 trbv=601) TROPONIN [id number] 15:25:00 Test Item Value Reference Range Comments TROPONIN I (LISANDROAKER) (test fngc=490) 6.89 ng/mL 0.00-0.03 Troponin I (TnI) levels [...] NATRIURETIC PEPTIDE (LISANDROAKER) (test 2849 pg/mL 0-100 pkrr=680) Please obtain with next scheduled blood draw- no Need for extra pokeRAD, CHEST , 1 VIEW, NON [id number] 11:13:00Reason for exam:->chest painFINAL REPORT HISTORY : [...] Verified Date/ Time: 02/16/2018 11:13:08 Reading Location: [facility] Radiology Reading Room TROPONIN [id number] 09:59:00 Test Item Value Reference Range Comments TROPONIN I (BEAKER) (test qdil=286) 6.35 ng/mL 0.00-0.03 Troponin I (TnI) levels [...] failure, acidosis, acute neurological disease, and persistent tachyarrhythmia.[id number] 09:06:00 Test Item Value Reference Range Comments PARTIAL THROMBOPLASTIN TIME (BEAKER) (test 26.7 seconds 22.5-36.0 qgof=301) Prior to initiating heparinPLATELET [id number] 08:48:00 Test Item Value Reference Range Comments PLATELET COUNT (LISANDROAKER) (test ydvl=946) 230 K/CU MM 150-450 CT BRAIN WITHOUT IV CONTRAST - [id number] 06:53:00Reason for exam:-> post-tpaFINAL REPORT EXAM: CT [...] Verified Date/ Time: 02/16/2018 06:53:18 Reading Location: [facility] C013T Transitional Reading Room AELMARIMAR [id number] 03:14:00 Test Item Value Reference Range Comments TROPONIN I (BEAKER) (test hstf=945) 3.40 ng/mL 0.00-0.03 Troponin I (TnI) levels [...] acute neurological disease, and persistent tachyarrhythmia.BASIC METABOLIC [id number] 02:53:00 Test Item Value Reference Range Comments SODIUM (BEAKER) (test 137 meq/L 136-145 hllw=075) POTASSIUM (BEAKER) (test 4.4 meq/L 3.5-5.1 czwe=583) CHLORIDE (BEAKER) (test 106 meq/L 98-107 lbnn=711) CO2 (BEAKER) (test 22 meq/L 22-29 vpew=450) BLOOD UREA NITROGEN 12 mg/dL 7-21 (BEAKER) (test rnii=940) CREATININE (BEAKER) (test 1.06 mg/dL 0.57-1.25 cutl=361) GLUCOSE RANDOM (BEAKER) 109 mg/dL 70-105 (test sash=051) CALCIUM (BEAKER) (test 9.8 mg/dL 8.4-10.2 josc=189) EGFR (BEAKER) (test 50 mL/min/1.73 sq m ESTIMATED GFR IS NOT mydq=0869) ACCURATE CREATININE CLEARANCE IN PREDICTING GLOMERULAR FILTRATION RATE. ESTIMATED GFR IS NOT APPLICABLE FOR DIALYSIS PATIENTS. [id number] 02:48:00 Test Item Value Reference Range Comments PROTIME (BEAKER) (test xjpk=243) 14.5 seconds 11.7-14.7 INR (BEAKER) (test oeij=452) 1.1 <=5.9 PARTIAL THROMBOPLASTIN TIME (BEAKER) (test 25.7 seconds 22.5-36.0 nfya=149) RECOMMENDED COUMADIN/WARFARIN INR THERAPY RANGESSTANDARD DOSE: 2.0 - 3.0 Includes: PROPHYLAXIS forvenous thrombosis, systemic embolization; TREATMENT for venous thrombosis and/or pulmonary embolus.HIGH RISK: Target INR is 2.5-3.5 for patients with mechanical heart valves.PROTHROMBIN [id number] 02:47: 00 Test Item Value Reference Range Comments PROTIME (BEAKER) (test gkxm=302) 14.5 seconds 11.7-14.7 INR (BEAKER) (test sncx=216) 1.1 <=5.9 RECOMMENDED COUMADIN/WARFARIN INR THERAPY RANGESSTANDARD DOSE: 2.0 - 3.0 Includes: PROPHYLAXIS forvenous thrombosis, systemic embolization; TREATMENT for venous thrombosis and/or pulmonary embolus.HIGH RISK: Target INR is 2.5-3.5 for patients with mechanical heart valves.CBC W/PLT COUNT & AUTO [id number] 02:29:00 Test Item Value Reference Range Comments WHITE BLOOD CELL COUNT (BEAKER) (test rwez=504) 8.8 K/ L 3.5-10.5 RED BLOOD CELL COUNT (BEAKER) (test qisz=850) 3.71 M/ L 3.93-5.22 HEMOGLOBIN (BEAKER) (test ijue=640) 11.9 GM/DL 11.2-15.7 HEMATOCRIT (BEAKER) (test fhyl=345) 35.8 % 34.1-44.9 MEAN CORPUSCULAR VOLUME (BEAKER) (test xlbt=214) 96.5 fL 79.4-94.8 MEAN CORPUSCULAR HEMOGLOBIN (BEAKER) (test 32.1 pg 25.6-32.2 wndb=438) MEAN CORPUSCULAR HEMOGLOBIN CONC (BEAKER) (test 33.2 GM/DL 32.2-35.5 afle=456) RED CELL DISTRIBUTION WIDTH (BEAKER) (test 13.2 % 11.7-14.4 aylk=495) PLATELET COUNT (BEAKER) (test qchx=925) 205 K/CU MM 150-450 MEAN PLATELET VOLUME (BEAKER) (test zyhg=171) 10.2 fL 9.4-12.3 NUCLEATED RED BLOOD CELLS (BEAKER) (test 0 /100 WBC 0-0 vrbm=968) NEUTROPHILS RELATIVE PERCENT (BEAKER) (test 83 % xvgr=512) LYMPHOCYTES RELATIVE PERCENT (BEAKER) (test 8 % cqgr=173) MONOCYTES RELATIVE PERCENT (BEAKER) (test 9 % nuvs=311) EOSINOPHILS RELATIVE PERCENT (BEAKER) (test 0 % cfpc=210) BASOPHILS RELATIVE PERCENT (BEAKER) (test 0 % cmec=447) NEUTROPHILS ABSOLUTE COUNT (BEAKER) (test 7.27 K/ L 1.56-6.13 onzs=300) LYMPHOCYTES ABSOLUTE COUNT (BEAKER) (test 0.68 K/ L 1.18-3.74 vsti=726) MONOCYTES ABSOLUTE COUNT (BEAKER) (test 0.77 K/ L 0.24-0.36 tcqf=567) EOSINOPHILS ABSOLUTE COUNT (BEAKER) (test 0.01 K/ L 0.04-0.36 yfcv=287) BASOPHILS ABSOLUTE COUNT (BEAKER) (test 0.02 K/ L 0.01-0.08 bwqv=465) IMMATURE GRANULOCYTES-RELATIVE PERCENT (BEAKER) 1 % 0-1 (test nchj=0017) TROPONIN [id number] 17:32:00 Test Item Value Reference Range Comments TROPONIN I (BEAKER) (test cmcs=472) 0.13 ng/mL 0.00-0.03 Troponin I (TnI) levels [...] acidosis, acute neurological disease, and persistent tachyarrhythmia.HEMOGLOBIN [id number] 11:13:00 Test Item Value Reference Range Comments HEMOGLOBIN A1C (BEAKER) (test kdkt=265) 5.4 % 4.3-6.1 [id number] 05:41:00 Test Item Value Reference Range Comments THYROID STIMULATING HORMONE (BEAKER) (test 0.94 uIU/mL 0.35-4.94 eewr=286) VITAMIN B12 AND [id number] 05:41:00 Test Item Value Reference Range Comments VITAMIN B12 (BEAKER) (test htsx=815) 1440 pg/mL 213-816 FOLATE (BEAKER) (test mbpu=567) 7.6 ng/mL >=7.0 [id number] 05:07:00 Test Item Value Reference Range Comments MAGNESIUM (BEAKER) (test 1.7 mg/dL 1.6-2.6 Specimen slightly hemolyzed ukbr=072) BASIC METABOLIC [id number] 05:07:00 Test Item Value Reference Range Comments SODIUM (BEAKER) (test 133 meq/L 136-145 wpmp=775) POTASSIUM (BEAKER) (test 4.2 meq/L 3.5-5.1 Specimen slightly nlxt=998) hemolyzed CHLORIDE (BEAKER) (test 104 meq/L 98-107 cnpa=229) CO2 (BEAKER) (test 21 meq/L 22-29 bznr=661) BLOOD UREA NITROGEN 12 mg/dL 7-21 (BEAKER) (test gpsn=201) CREATININE (BEAKER) (test 0.95 mg/dL 0.57-1.25 Specimen slightly qgjr=893) hemolyzed GLUCOSE RANDOM (BEAKER) 98 mg/dL 70-105 (test vqxh=363) CALCIUM (BEAKER) (test 9.3 mg/dL 8.4-10.2 yrtv=003) EGFR (BEAKER) (test 57 mL/min/1.73 sq m ESTIMATED GFR IS NOT zovi=3348) ACCURATE CREATININE CLEARANCE IN PREDICTING GLOMERULAR FILTRATION RATE. ESTIMATED GFR IS NOT APPLICABLE FOR DIALYSIS PATIENTS. LIPID [id number] 05:07:00 Test Item Value Reference Range Comments TRIGLYCERIDES (BEAKER) (test 137 mg/dL Specimen slightly hemolyzed tqhx=284) CHOLESTEROL (BEAKER) (test 155 mg/dL Specimen slightly hemolyzed ahky=405) HDL CHOLESTEROL (BEAKER) (test 59 mg/dL aoba=795) LDL CHOLESTEROL CALCULATED 69 mg/dL (BEAKER) (test zfdr=642) Triglyceride Reference Range: Low Risk <150 Borderline 150- 199 High Risk 200-499 Very High Risk >=500Cholesterol Reference Range: Low Risk <200 Borderline 200-239 High Risk > 240HDL Cholesterol Reference Range: Low Risk >=60 High Risk <40LDL Cholesterol Reference Range: Optimal <100 Near Optimal 100-129 Borderline 130-159 High 160-189 Very High >=190PT/[id number] 04:54:00 Test Item Value Reference Range Comments PROTIME (BEAKER) (test fmlk=871) 14.0 seconds 11.7-14.7 INR (BEAKER) (test vutd=441) 1.1 <=5.9 PARTIAL THROMBOPLASTIN TIME (BEAKER) (test 27.3 seconds 22.5-36.0 uvtq=385) RECOMMENDED COUMADIN/WARFARIN INR THERAPY RANGESSTANDARD DOSE: 2.0 - 3.0 Includes: PROPHYLAXIS forvenous thrombosis, systemic embolization; TREATMENT for venous thrombosis and/or pulmonary embolus.HIGH RISK: Target INR is 2.5-3.5 for patients with mechanical heart valves.PROTHROMBIN [id number] 04:53: 00 Test Item Value Reference Range Comments PROTIME (BEAKER) (test joyt=924) 14.0 seconds 11.7-14.7 INR (BEAKER) (test gcpp=089) 1.1 <=5.9 RECOMMENDED COUMADIN/WARFARIN INR THERAPY RANGESSTANDARD DOSE: 2.0 - 3.0 Includes: PROPHYLAXIS forvenous thrombosis, systemic embolization; TREATMENT for venous thrombosis and/or pulmonary embolus.HIGH RISK: Target INR is 2.5-3.5 for patients with mechanical heart valves.CBC W/PLT COUNT & AUTO [id number] 04:44:00 Test Item Value Reference Range Comments WHITE BLOOD CELL COUNT (BEAKER) (test nsls=862) 5.8 K/ L 3.5-10.5 RED BLOOD CELL COUNT (BEAKER) (test jhvj=925) 3.54 M/ L 3.93-5.22 HEMOGLOBIN (BEAKER) (test njjq=719) 11.0 GM/DL 11.2-15.7 HEMATOCRIT (BEAKER) (test tkdh=516) 33.7 % 34.1-44.9 MEAN CORPUSCULAR VOLUME (BEAKER) (test ycxi=416) 95.2 fL 79.4-94.8 MEAN CORPUSCULAR HEMOGLOBIN (BEAKER) (test 31.1 pg 25.6-32.2 turq=537) MEAN CORPUSCULAR HEMOGLOBIN CONC (BEAKER) (test 32.6 GM/DL 32.2-35.5 rrje=365) RED CELL DISTRIBUTION WIDTH (BEAKER) (test 13.0 % 11.7-14.4 fvtt=007) PLATELET COUNT (BEAKER) (test injs=965) 202 K/CU MM 150-450 MEAN PLATELET VOLUME (BEAKER) (test dama=449) 10.7 fL 9.4-12.3 NUCLEATED RED BLOOD CELLS (BEAKER) (test 0 /100 WBC 0-0 ueny=354) NEUTROPHILS RELATIVE PERCENT (BEAKER) (test 71 % jony=514) LYMPHOCYTES RELATIVE PERCENT (BEAKER) (test 14 % vjzq=693) MONOCYTES RELATIVE PERCENT (BEAKER) (test 13 % qclz=712) EOSINOPHILS RELATIVE PERCENT (BEAKER) (test 2 % rtsd=248) BASOPHILS RELATIVE PERCENT (BEAKER) (test 0 % conj=171) NEUTROPHILS ABSOLUTE COUNT (BEAKER) (test 4.08 K/ L 1.56-6.13 gbbx=294) LYMPHOCYTES ABSOLUTE COUNT (BEAKER) (test 0.80 K/ L 1.18-3.74 dshv=789) MONOCYTES ABSOLUTE COUNT (BEAKER) (test 0.76 K/ L 0.24-0.36 imng=789) EOSINOPHILS ABSOLUTE COUNT (BEAKER) (test 0.10 K/ L 0.04-0.36 isje=822) BASOPHILS ABSOLUTE COUNT (BEAKER) (test 0.02 K/ L 0.01-0.08 pwgw=787) IMMATURE GRANULOCYTES-RELATIVE PERCENT (BEAKER) 0 % 0-1 (test yxak=3658) BASIC METABOLIC [id number] 16:02:00 Test Item Value Reference Range Comments SODIUM (BEAKER) (test 129 meq/L 136-145 coiz=318) POTASSIUM (BEAKER) (test 3.7 meq/L 3.5-5.1 ebrd=989) CHLORIDE (BEAKER) (test 97 meq/L 98-107 hnbm=354) CO2 (BEAKER) (test 22 meq/L 22-29 ectf=431) BLOOD UREA NITROGEN 16 mg/dL 7-21 (BEAKER) (test wqvg=774) CREATININE (BEAKER) (test 1.12 mg/dL 0.57-1.25 hlnv=211) GLUCOSE RANDOM (BEAKER) 116 mg/dL 70-105 (test jqyw=897) CALCIUM (BEAKER) (test 10.0 mg/dL 8.4-10.2 ozcg=946) EGFR (BEAKER) (test 47 mL/min/1.73 sq m ESTIMATED GFR IS NOT fycj=3635) ACCURATE CREATININE CLEARANCE IN PREDICTING GLOMERULAR FILTRATION RATE. ESTIMATED GFR IS NOT APPLICABLE FOR DIALYSIS PATIENTS. CBC W/PLT COUNT & AUTO [id number] 15:31:00 Test Item Value Reference Range Comments WHITE BLOOD CELL COUNT (BEAKER) (test qhfi=802) 8.2 K/ L 3.5-10.5 RED BLOOD CELL COUNT (BEAKER) (test yydi=627) 4.14 M/ L 3.93-5.22 HEMOGLOBIN (BEAKER) (test dtvm=204) 13.0 GM/DL 11.2-15.7 HEMATOCRIT (BEAKER) (test sovj=806) 39.1 % 34.1-44.9 MEAN CORPUSCULAR VOLUME (BEAKER) (test sigp=694) 94.4 fL 79.4-94.8 MEAN CORPUSCULAR HEMOGLOBIN (BEAKER) (test 31.4 pg 25.6-32.2 bjqb=868) MEAN CORPUSCULAR HEMOGLOBIN CONC (BEAKER) (test 33.2 GM/DL 32.2-35.5 ngvx=279) RED CELL DISTRIBUTION WIDTH (BEAKER) (test 12.8 % 11.7-14.4 hccu=727) PLATELET COUNT (BEAKER) (test crdz=513) 228 K/CU MM 150-450 MEAN PLATELET VOLUME (BEAKER) (test qrvn=212) 10.3 fL 9.4-12.3 NUCLEATED RED BLOOD CELLS (BEAKER) (test 0 /100 WBC 0-0 obgd=168) NEUTROPHILS RELATIVE PERCENT (BEAKER) (test 80 % vrho=742) LYMPHOCYTES RELATIVE PERCENT (BEAKER) (test 10 % oomq=857) MONOCYTES RELATIVE PERCENT (BEAKER) (test 9 % qnbt=669) EOSINOPHILS RELATIVE PERCENT (BEAKER) (test 0 % aopa=563) BASOPHILS RELATIVE PERCENT (BEAKER) (test 0 % hkrz=063) NEUTROPHILS ABSOLUTE COUNT (BEAKER) (test 6.59 K/ L 1.56-6.13 jtut=301) LYMPHOCYTES ABSOLUTE COUNT (BEAKER) (test 0.86 K/ L 1.18-3.74 jkhl=813) MONOCYTES ABSOLUTE COUNT (BEAKER) (test 0.70 K/ L 0.24-0.36 dwio=692) EOSINOPHILS ABSOLUTE COUNT (BEAKER) (test 0.03 K/ L 0.04-0.36 ohiz=483) BASOPHILS ABSOLUTE COUNT (BEAKER) (test 0.02 K/ L 0.01-0.08 bmab=934) IMMATURE GRANULOCYTES-RELATIVE PERCENT (BEAKER) 0 % 0-1 (test dzam=5105)
--- OUTSIDE RECORDS SUMMARY | 2019-03-02 16:57 | XMS REPORT | Clinical Summary ---
:1935 Author Organization [facility] Address [address] [place] [address] Care Team Providers Name Role Phone Zakia Gurdeep Chance Primary Care Provider Baldev Rios Unavailable Allergies No Known Allergies Medications Medication Sig Dispensed Refills Start Date End Date Status aspirin 81 MG EC Take 81 mg by 0 Active tablet mouth daily. levothyroxine Take 75 mcg by 0 Active (SYNTHROID, mouth Every LEVOTHROID) 75 MCG morning on an tablet empty stomach. multivitamin per Take 1 tablet 0 Active tablet by mouth daily. desloratadine Take 5 mg by 0 Active (CLARINEX) 5 mg tablet mouth daily. polyethylene glycol Take 17 g by 0 Active (GLYCOLAX) 17 gram mouth daily. packet ondansetron Take 4 mg by 0 Active (ZOFRAN-ODT) 4 MG mouth every 8 disintegrating tablet (eight) hours as needed for Nausea. torsemide (DEMADEX) 20 Take 20 mg by 0 Active MG tablet mouth as needed. cholecalciferol, Take 2,000 0 Active vitamin D3, 2,000 unit Units by mouth Tab daily. calcium carbonate Take 600 mg by 0 Active (OS-VALERIE) 600 mg mouth daily. calcium (1,500 mg) Tab cyanocobalamin Take 1,000 mcg 0 Active (VITAMIN B-12) 1000 by mouth daily. MCG tablet traMADol (ULTRAM) 50 Take 1 tablet 30 tablet 0 02/23/2018 Active mg tablet (50 mg total) by mouth as needed for Pain. amLODIPine (NORVASC) 5 Take 1 tablet 30 tablet 02/24/2018 02/24/2019 MG tablet (5 mg total) by mouth daily. atorvastatin (LIPITOR) Take 1 tablet 30 tablet 02/23/2018 02/23/2019 80 MG tablet (80 mg total) by mouth nightly. carvedilol (COREG) 25 Take 1 tablet 60 tablet 11 02/23/2018 02/23/2019 MG tablet (25 mg total) by mouth 2 (two) times daily. clopidogrel (PLAVIX) Take 1 tablet 30 tablet 02/24/2018 02/24/2019 75 mg tablet (75 mg total) by mouth daily. losartan (COZAAR) 50 Take 1 tablet 60 tablet 02/23/2018 02/23/2019 MG tablet (50 mg total) by mouth 2 (two) times daily. 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 For more information, please contact:[address] [phone] Code Status Date Activated Date Inactivated Comments [...]
[2019-03-02] MEDS ORDERED: BISACODYL 10 MG RECTAL SUPP PR PRN (17:18)
[2019-03-02] MEDS ORDERED: NITROGLYCERIN 0.4 MG/TAB SL PRN (17:18)
[2019-03-02] MEDS ORDERED: DOCUSATE NA 100 MG CAP PO PRN (17:18)
[2019-03-02] MEDS ORDERED: HYDROCODONE/APAP 5/325 MG TAB PO PRN (17:18)
[2019-03-02] MEDS: HYDROCORTISONE 2.5% RECT CR PR SCH (20:00)
[2019-03-02] MEDS: GABAPENTIN 100 MG CAP PO SCH (20:11)
[2019-03-02] MEDS: CARVEDILOL 6.25 MG TAB PO SCH (20:12)
[2019-03-02] MEDS: TAMSULOSIN 0.4 MG SR CAP PO SCH (20:12)
[2019-03-02] MEDS: SUCRALFATE 1 GM TABLET PO SCH (20:12)
[2019-03-02] MEDS ORDERED: LOPERAMIDE HCL 2 MG CAPSULE PO PRN (21:00)
[2019-03-02] MEDS ORDERED: LOPERAMIDE HCL 2 MG CAPSULE PO SCH (21:00)
[2019-03-02] MEDS: TRAMADOL HCL 50 MG TAB PO PRN (21:15)
--- NOTE | 2019-03-02 21:36 | P.HP ---
Certification for Inpatient Patient admitted to: Inpatient With expected LOS: >2 Midnights Practitioner: I am a practitioner with admitting privileges, knowledge of patient current condition, hospital course, and medical plan of care. Services: Services provided to patient in accordance with Admission requirements found in Title 42 Section 412.3 of the Code of Federal Regulations Patient History Date of Service: 03/02/19 Reason for admission: WEAKNESS AFTER THROMBECTOMY History of Present Illness: MS. ZAZUETA WAS SENT TO [facility] AFTER ACUTE THROMBOEMBOLISM TO L LEG. PER SON THE VENOUS PLUG BLOCKED THE ARTERY ON L SIDE. I AM NOT CLEAR ABOUT THE PROCEDURE. SHE WAS IN THE HOSPITAL FOR MORE THAN 10 DAYS. SHE IS NOW SENT HERE FOR THERAPY. Allergies No Known Drug Allergies Allergy (Verified 03/02/19 17:43) Unknown Home Medications: Aspirin 81 mg PO DAILY 05/11/15 Cyanocobalamin [Vitamin B-12*] 1,000 mcg PO DAILY 05/11/15 Cholecalciferol (Vitamin D3) [Vitamin D 2,000 Unit Tab] 2,000 unit PO DAILY Acetaminophen [Tylenol] 1 tab PO Q6H PRN 03/02/19 Amlodipine Besylate [Norvasc] 1 tab PO DAILY 03/02/19 Atorvastatin Calcium [Lipitor] 1 tab PO BEDTIME 03/02/19 Bisacodyl [Dulcolax*] 1 supp AR DAILY PRN 03/02/19 Carvedilol [Coreg*] 1 tab PO BID 03/02/19 Cholecalciferol (Vitamin D3) [Vitamin D3] 1 cap PO DAILY 03/02/19 Cyanocobalamin [Vitamin B-12*] 1 tab PO DAILY 03/02/19 Docusate [Colace Cap*] 1 cap PO BID PRN 03/02/19 Duloxetine HCl [Cymbalta] 1 cap PO DAILY 03/02/19 Furosemide [Lasix*] 1 tab PO DAILY 03/02/19 Gabapentin [Neurontin*] 1 cap PO BID 03/02/19 Hydrocodone 5/APAP 325 [Secretary 5/325*] 1 tab PO Q4H PRN 03/02/19 Levothyroxine [Synthroid*] 1 tab PO DAILY 03/02/19 Lidocaine 5% Patch [Lidoderm 5% Patch*] 1 patch TOP DAILY 03/02/19 Loperamide [Imodium*] 1 cap PO QID PRN 03/02/19 Nitroglycerin [Nitrostat*] 1 tab SL UD PRN 03/02/19 Ondansetron HCl [Zofran] 1 tab PO Q8H PRN 03/02/19 Pantoprazole [Protonix Tab*] 1 tab PO DAILY 03/02/19 Pramoxine HCl/Mineral Oil/Znox [Anusol Ointment] 1 appl AR BID 03/02/19 Rivaroxaban [Xarelto*] 1 tab PO DAILY 03/02/19 Sucralfate [Carafate*] 1 tab PO QID 03/02/19 Tamsulosin [Flomax*] 1 cap PO BEDTIME 03/02/19 Valsartan [Diovan*] 320 mg PO DAILY 03/02/19 Vitamin E 1 cap PO DAILY 03/02/19 traMADol HCL [Ultram*] 1 tab PO Q6H PRN 03/02/19 - Past Medical/Surgical History Diabetic: No -: HTN -: Hyperlipidemia -: [place] 01/2015 -: CAD -: Lymphedema -: Heart Stents -: FEMPOP -: Hysterectomy - Family History Mother -: Heart disease - Social History Alcohol use: No CD- Drugs: No Caffeine use: Yes Review of Systems 10-point ROS is otherwise unremarkable General: Weakness, Malaise Physical Examination - Vital Signs Temperature: 98.2 F Blood Pressure: 168/84 Pulse: 63 Respirations: 18 Pulse Ox (%): 96 - Physical Exam General: Alert, Oriented x3, Mild distress HEENT: Atraumatic, PERRLA, Mucous membr. moist/pink, EOMI, Sclerae nonicteric Neck: Supple, 2+ carotid pulse no bruit, No LAD, Without JVD or thyroid abnormality Respiratory: Clear to auscultation bilaterally, Normal air movement Cardiovascular: Regular rate/rhythm, Normal S1 S2 Gastrointestinal: Normal bowel sounds, No tenderness Musculoskeletal: No tenderness Integumentary: No rashes, Other (L GROIN AREA IS HEALING BETTER.) Neurological: Normal gait, Normal speech, Normal strength at 5/5 x4 extr, Normal tone, Normal affect Lymphatics: No axilla or inguinal lymphadenopathy Assessment and Plan - Problems (Diagnosis) (1) General weakness Current Visit: Yes Status: Acute Plan: SINCE SURGERY. CONTINUE PT. (2) Thromboembolism of lower extremity artery Current Visit: Yes Status: Acute Plan: RECOVERING. NOW THE L LEG HAS GOOD NORMAL TEMPERATURE. (3) UTI (urinary tract infection) Current Visit: Yes Status: Acute Plan: FROM [facility]. ALREADY TREATED. SHOULD REPEAT UA TO DC ABX. (4) CAD (coronary artery disease) Current Visit: No Status: Acute (5) Chronic renal disease Onset Date: 05/11/15 Current Visit: No Status: Acute (6) History of femoropopliteal bypass Current Visit: No Status: Acute - Advance Directives Does patient have a Living Will: No Does patient have a Durable POA for Healthcare: No
[2019-03-02] MEDS: MELATONIN 3 MG TABLET PO PRN (22:00)
--- NOTE | 2019-03-03 01:33 | FAST ---
SHIFT START DATE/TIME: 03/02/2019 19:00 (CDT) SHIFT END DATE/TIME: 03/03/2019 07:00 (CDT) NAME MARCEL ZAZUETA DATE OF : 1935 DATE OF ADMISSION: 03/02/2019 16:50 (CDT) PHONE: AGE: 83 N# [id number] GENDER: Female ENCOUNTER PHYSICIAN: Dr. Jassi Gamboa M.D. ADMISSION DIAGNOSIS: - Medically Complex Conditions 17 - Circulatory Disorders (17.4) Peripheral arterial disease. EATING: Activity did not occur on this shift EATING - SCORE: 0-UNK GROOMING: Activity did not occur on this shift GROOMING - SCORE: 0-UNK BATHING: Activity did not occur on this shift BATHING - SCORE: 0-UNK DRESSING - UPPER BODY: Patient is not dressing in public clothing ARTICLES SCORE Total number of steps: 0 DRESSING - UPPER BODY - SCORE: 0-UNK DRESSING - LOWER BODY: Patient is not dressing in public clothing ARTICLES SCORE Total number of steps: 0 DRESSING - LOWER BODY - SCORE: 0-UNK TOILETING: TOILETING - STEP 1: Does the patient require the assistance of a person or device, or need extra time with toileting? Yes . TOILETING - STEP 2: Does the patient require the assistance of a helper? Yes. TOILETING - STEP 3: How much assistance does the patient require from the helper? Hands-on assistance from the helper TOILETING - STEP 4: Of the 3 tasks: 1) Adjusting clothing prior to use, 2) Cleansing of perineal area, 3) Adjusting clot yessica after use; How many tasks does the patient perform WITHOUT assistance of the helper? Two tasks TOILETING - SCORE: 3-MOD BLADDER MANAGEMENT: BLADDER MANAGEMENT - STEP 1: Does the patient control the bladder completely and intentionally without equipment or devices or med ications, and is always continent? No. BLADDER MANAGEMENT - STEP 2: Does the patient require the assistance of a helper? Yes. BLADDER MANAGEMENT - STEP 3: How much assistance does the patient require from the helper? Only set-up of equipment - such as plac ing it within reach of the patient or emptying a device - to maintain either satisfactory voiding pat tern or managing an external device, such as an absorbent pad, ileal device, or catheter BLADDER MANAGEMENT - SCORE: 5-SUP BOWEL MANAGEMENT: BOWEL MANAGEMENT - STEP 1: Does the patient control bowels completely and intentionally without equipment devices or medications AND is always continent? No. BOWEL MANAGEMENT - STEP 2: Does the patient require the assistance of a helper? No, patient requires medication for control such as stool softeners, suppositories, laxatives, enemas, or OTC medications BOWEL MANAGEMENT - SCORE: 6-ABBEY TRANSFERS: BED, CHAIR, WHEELCHAIR: TRANSFERS: BED, CHAIR, WHEELCHAIR - STEP 1: Does the patient require assistance of a person or device, or need extra time with bed, chair, or whe elchair transfers? Yes. TRANSFERS: BED, CHAIR, WHEELCHAIR - STEP 2: Does the patient require the assistance of a helper? Yes. TRANSFERS: BED, CHAIR, WHEELCHAIR - STEP 3: How much assistance does the patient require from the helper? Steadying/guiding assistance TRANSFERS: BED, CHAIR, WHEELCHAIR - SCORE: 4-MIN TRANSFERS: TOILET: TRANSFERS: TOILET - STEP 1: Does the patient require the assistance of a person or device, or need extra time with toilet transfe rs? Yes. TRANSFERS: TOILET - STEP 2: Does the patient require the assistance of a helper? Yes. TRANSFERS: TOILET - STEP 3: How much assistance does the patient require from the helper? Only supervision, cuing, coaxing, OR he lp to set out transfer equipment or to lock brakes and/or lift foot rests TRANSFERS: TOILET - SCORE: 5-SUP TRANSFERS: SHOWER: Activity did not occur on this shift TRANSFERS: SHOWER - SCORE: 0-UNK TRANSFERS: TUB: Activity did not occur on this shift TRANSFERS: TUB - SCORE: 0-UNK LOCOMOTION: WALK: Activity did not occur on this shift LOCOMOTION: WALK - SCORE: 0-UNK LOCOMOTION: WHEELCHAIR: Activity did not occur on this shift LOCOMOTION: WHEELCHAIR - SCORE: 0-UNK COMPREHENSION: COMPREHENSION: TYPE: Both COMPREHENSION - STEP 1: Does the patient require help from a person or device, or need extra time to understand complex and a bstract ideas (such as current events, finances, discharge planning, medical issues, relationships, e tc)? No. COMPREHENSION - STEP 2: Does the patient need extra time, require an assistive device (such as glasses for visual comprehensi on or a hearing aid for auditory comprehension) or does s/he have mild difficulty understanding compl ex and abstract information? Yes. COMPREHENSION - SCORE: 6-ABBEY EXPRESSION EXPRESSION: TYPE: Both EXPRESSION - STEP 1: Does the patient require help from a person or device, or need extra time expressing complex and abst ract ideas (such as current events, finances, discharge planning, medical issues, relationships, etc) ? No. EXPRESSION - STEP 2: Does the patient need extra time, require an assistive device (such as augmentive communication syste m or a communication board), OR does s/he have mild difficulty expressing complex and abstract ideas (including mild dysarthria or mild word-find problems)? No. EXPRESSION - SCORE: 7-IND SOCIAL INTERACTION: SOCIAL INTERACTION - STEP 1: Does the patient require a helper to interact with others in social and therapeutic situations? No. SOCIAL INTERACTION - STEP 2: Does the patient need extra time in social situations, OR does s/he interact with staff, other patien ts, and family members ONLY in structured environments, OR does s/he require medication for social in teraction? Yes, patient requires medication for social interaction SOCIAL INTERACTION - SCORE: 6-ABBEY PROBLEM SOLVING: PROBLEM SOLVING - STEP 1: Does the patient need help from a person or device, or need extra time to solve complex problems such as managing a checking account or confronting interpersonal problems? Yes. PROBLEM SOLVING - STEP 2: Does the patient solve basic routine problems half or more of the time? Yes. PROBLEM SOLVING - STEP 3: How often does the patient need help to solve basic routine problems? Less than 10% of the time PROBLEM SOLVING - SCORE: 5-SUP MEMORY: MEMORY - STEP 1: Does the patient need help from a person or device, or need extra time to remember frequently encount ered people, daily routines, and executing requests? No. MEMORY - STEP 2: Does the patient have slight difficulty recognizing frequently encountered people, daily routines, or executing requests without the need for repetition or using self-initiated or environmental cues to remember? Yes. MEMORY - SCORE: 6-ABBEY SIGNATURE PANEL: The following modified sections: Eating - Score, Grooming - Score, Dressing - Upper Body - Score, Moo ssing - Lower Body - Score, Toileting - Score, Bladder Management - Score, Bowel Management - Score, Transfers: Bed, Chair, Wheelchair - Score, Transfers: Toilet - Score, Transfers: Shower - Score, [place] sfers: Tub - Score, Locomotion: Walk - Score, Locomotion: Wheelchair - Score, Comprehension - Score, Expression - Score, Social Interaction - Score, Problem Solving - Score, Memory - Score were [electro nically] signed by Flakita Neely CNA on FriMar 03 2019 01:32:31 GMT-0500 (Central Daylight Time)
[2019-03-03 01:40] LABS: Urine Appearance CLEAR; Urine Bilirubin NEGATIVE (NEG); Urine Blood NEGATIVE (NEG); Urine Color YELLOW; Urine Glucose NEGATIVE (NEG); Urine Protein TRACE (NEG); Urine Urobilinogen 0.2 mg/dL (0.2-1.0); Urine pH 7.5 (5.0-7.0)
[2019-03-03 01:41] LABS: Urine Microscopic Reflex ORDER UMIC
[2019-03-03 02:41] LABS: Urine Bacteria <20 /HPF (<20); Urine Culture Reflex Order NOT NEEDED; Urine RBC NONE SEEN /HPF (NONE SEEN)
[2019-03-03] MEDS: LEVOTHYROXINE SOD 0.05 MG TABLET PO SCH (06:38)
[2019-03-03 06:42] LABS: Basophils % 0.7 % (0-1.3); Lymphocytes % 22.5 % (15.3-44.8); MPV 8.3 fL (7.6-11.3); RBC Red Blood Cell Count 2.99 M/uL (3.86-4.86)
[2019-03-03] MEDS: TRAMADOL HCL 50 MG TAB PO PRN ×3 (06:43→19:06)
[2019-03-03 07:21] LABS: Anisocytosis 2+; Blood Morphology Comment NOTED (NOT SEEN); Platelet Estimate ADEQ
[2019-03-03] MEDS: HYDROCORTISONE 2.5% RECT CR PR SCH (08:00)
[2019-03-03] MEDS ORDERED: MESALAMINE 375 MG PO SCH (08:00)
[2019-03-03] MEDS ORDERED: VALSARTAN 160 MG TAB PO SCH (08:00)
[2019-03-03] MEDS: AMLODIPINE 10 MG TAB PO SCH ×3 (08:00→16:45)
[2019-03-03] MEDS ORDERED: levoFLOXacin 250 MG TAB PO SCH (08:00)
[2019-03-03] MEDS: LIDOCAINE 5% PATCH TOP SCH (08:39)
[2019-03-03] MEDS: SUCRALFATE 1 GM TABLET PO SCH ×4 (08:40→19:05)
[2019-03-03] MEDS: DULOXETINE 30 MG CAP PO SCH (08:40)
[2019-03-03] MEDS: VITAMIN E 400 IU CAP PO SCH (08:41)
[2019-03-03] MEDS: ASPIRIN EC 81 MG TAB PO SCH (08:41)
[2019-03-03] MEDS: PANTOPRAZOLE 40MG TABLET PO SCH (08:42)
[2019-03-03] MEDS: RIVAROXABAN 15 MG TABLET PO SCH (08:42)
[2019-03-03] MEDS: GABAPENTIN 100 MG CAP PO SCH ×2 (08:42→19:06)
[2019-03-03] MEDS: VITAMIN D 1000 UNIT TAB PO SCH (08:43)
[2019-03-03] MEDS: CYANOCOBALAMIN 1,000 MCG TAB PO SCH (08:43)
[2019-03-03 09:34] LABS: Albumin 2.5 g/dL (3.4-5.0); Magnesium 1.5 mg/dL (1.8-2.4); Potassium 3.7 mmol/L (3.5-5.1); Prealbumin 20.8 mg/dL (20-40)
[2019-03-03] MEDS: FUROSEMIDE 20 MG TABLET PO SCH (11:03)
[2019-03-03] MEDS: CARVEDILOL 6.25 MG TAB PO SCH ×2 (12:30→19:05)
--- NOTE | 2019-03-03 14:14 | FAST ---
ENCOUNTER DATE AND TIME: 03/03/2019 08:00 (CDT) NAME MARCEL ZAZUETA DATE OF : 1935 DATE OF ADMISSION: 03/02/2019 16:50 (CDT) PHONE: AGE: 83 SSN# [id number] GENDER: Female ENCOUNTER PHYSICIAN: Dr. Jassi Gamboa M.D. ADMISSION DIAGNOSIS: - Medically Complex Conditions 17 - Circulatory Disorders (17.4) Peripheral arterial disease. EATING: Activity did not occur on this shift EATING - SCORE: 0-UNK GROOMING: Activity did not occur on this shift GROOMING - SCORE: 0-UNK BATHING: Activity did not occur on this shift BATHING - SCORE: 0-UNK DRESSING - UPPER BODY: Activity did not occur on this shift Patient is not dressing in public clothing ARTICLES SCORE Total number of steps: 0 DRESSING - UPPER BODY - SCORE: 0-UNK DRESSING - LOWER BODY: Activity did not occur on this shift Patient is not dressing in public clothing ARTICLES SCORE Total number of steps: 0 DRESSING - LOWER BODY - SCORE: 0-UNK TOILETING: Activity did not occur on this shift TOILETING - SCORE: 0-UNK BLADDER MANAGEMENT: Activity did not occur on this shift BLADDER MANAGEMENT - SCORE: 7-IND BOWEL MANAGEMENT: Activity did not occur on this shift BOWEL MANAGEMENT - SCORE: 7-IND TRANSFERS: BED, CHAIR, WHEELCHAIR: TRANSFERS: BED, CHAIR, WHEELCHAIR - STEP 1: Does the patient require assistance of a person or device, or need extra time with bed, chair, or whe elchair transfers? Yes. TRANSFERS: BED, CHAIR, WHEELCHAIR - STEP 2: Does the patient require the assistance of a helper? Yes. TRANSFERS: BED, CHAIR, WHEELCHAIR - STEP 3: How much assistance does the patient require from the helper? Steadying/guiding assistance TRANSFERS: BED, CHAIR, WHEELCHAIR - SCORE: 4-MIN TRANSFERS: TOILET: Activity did not occur on this shift TRANSFERS: TOILET - SCORE: 0-UNK TRANSFERS: SHOWER: Activity did not occur on this shift TRANSFERS: SHOWER - SCORE: 0-UNK TRANSFERS: TUB: Activity did not occur on this shift TRANSFERS: TUB - SCORE: 0-UNK LOCOMOTION: WALK: LOCOMOTION: WALK - STEP 1: Does the patient need help from a person or device, or need extra time to walk 150 feet? Yes. LOCOMOTION: WALK - STEP 2: How much assistance does the patient require to walk a minimum of 150 feet? Only incidental help such as contact guarding or steadying LOCOMOTION: WALK - SCORE: 4-MIN LOCOMOTION: WHEELCHAIR: Activity did not occur on this shift LOCOMOTION: WHEELCHAIR - SCORE: 0-UNK LOCOMOTION: STAIRS: Activity did not occur on this shift LOCOMOTION: STAIRS - SCORE: 0-UNK COMPREHENSION: COMPREHENSION - SCORE: 0-UNK EXPRESSION EXPRESSION - SCORE: 0-UNK SOCIAL INTERACTION: SOCIAL INTERACTION - SCORE: 0-UNK PROBLEM SOLVING: PROBLEM SOLVING - SCORE: 0-UNK MEMORY: MEMORY - SCORE: 0-UNK SIGNATURE PANEL: The following modified sections: Transfers: Bed, Chair, Wheelchair - Score, Transfers: Toilet - Score , Locomotion: Walk - Score, Locomotion: Wheelchair - Score, Locomotion: Stairs - Score were [electron maryjo] signed by Monroe Porter PT on FriMar 03 2019 14:13:46 [facility]-0500 (Central Daylight Time)
--- NOTE | 2019-03-03 15:44 | FAST ---
ENCOUNTER DATE AND TIME: 03/03/2019 08:00 (CDT) NAME MARCEL ZAZUETA DATE OF : 1935 DATE OF ADMISSION: 03/02/2019 16:50 (CDT) PHONE: AGE: 83 SSN# [id number] GENDER: Female ENCOUNTER PHYSICIAN: Dr. Jassi Gamboa M.D. ADMISSION DIAGNOSIS: - Medically Complex Conditions 17 - Circulatory Disorders (17.4) Peripheral arterial disease. EATING: Activity did not occur on this shift EATING - SCORE: 0-UNK GROOMING: Comb/brush hair Wash, rinse, and dry face Wash, rinse, and dry hands GROOMING - STEP 1: Does the patient require the assistance of a person or device, or need extra time when grooming? No. GROOMING - SCORE: 7-IND BATHING: Abdomen Buttocks Chest Left arm Left lower leg and foot Left upper leg Perineal area Right arm Right lower leg and foot Right upper leg BATHING - STEP 1: Does the patient require the assistance of a person or device, or need extra time when bathing? Yes. BATHING - STEP 2: Does the patient require the assistance of a helper? Yes. BATHING - STEP 3: How much assistance does the patient require from the helper? Only incidental help such as placement of a wash cloth in his/her hand a few times as s/he bathes OR help to bathe just one or two areas of the body BATHING - SCORE: 4-MIN DRESSING - UPPER BODY: Bra (three steps) T-shirt/pullover shirt (four steps) ARTICLES SCORE Total number of steps: 7 DRESSING - UPPER BODY - STEP 1: Does the patient require help from a person or device, or need extra time when dressing above the [address]? Yes. DRESSING - UPPER BODY - STEP 2: Does the patient require the assistance of a helper? Yes. DRESSING - UPPER BODY - STEP 3: Does the helper touch the patient while dressing? No. DRESSING - UPPER BODY - SCORE: 5-SUP DRESSING - LOWER BODY: Elastic waist pants (three steps) Sock - Left foot (one step) Sock - Right foot (one step) Tied or buckled shoe - Left foot (two steps) Tied or buckled shoe - Right foot (two steps) Underwear (three steps) ARTICLES SCORE Total number of steps: 12 DRESSING - LOWER BODY - STEP 1: Does the patient require help from a person or device, or need extra time when dressing below the [address]? Yes. DRESSING - LOWER BODY - STEP 2: Does the patient require the assistance of a helper? Yes. DRESSING - LOWER BODY - STEP 3: Does the helper touch the patient while dressing? Yes. DRESSING - LOWER BODY - STEP 4: How many of the total steps does the patient complete on his/her own? 10 DRESSING - LOWER BODY - SCORE: 4-MIN TOILETING: Activity did not occur on this shift TOILETING - SCORE: 0-UNK BLADDER MANAGEMENT: Activity did not occur on this shift BLADDER MANAGEMENT - SCORE: 7-IND BOWEL MANAGEMENT: Activity did not occur on this shift BOWEL MANAGEMENT - SCORE: 7-IND TRANSFERS: BED, CHAIR, WHEELCHAIR: Activity did not occur on this shift TRANSFERS: BED, CHAIR, WHEELCHAIR - SCORE: 0-UNK TRANSFERS: TOILET: Activity did not occur on this shift TRANSFERS: TOILET - SCORE: 0-UNK TRANSFERS: SHOWER: TRANSFERS: SHOWER - STEP 1: Does the patient require the assistance of a person or device, or need extra time with shower transfe rs? Yes. TRANSFERS: SHOWER - STEP 2: Does the patient require the assistance of a helper? Yes. TRANSFERS: SHOWER - STEP 3: How much assistance does the patient require from the helper? More than incidental help TRANSFERS: SHOWER - STEP 4: How much more help does the patient require from the helper? Lifting the patient either up OR down fr om the wheelchair onto the shower chair TRANSFERS: SHOWER - SCORE: 3-MOD TRANSFERS: TUB: Activity did not occur on this shift TRANSFERS: TUB - SCORE: 0-UNK LOCOMOTION: WALK: Activity did not occur on this shift LOCOMOTION: WALK - SCORE: 0-UNK LOCOMOTION: WHEELCHAIR: Activity did not occur on this shift LOCOMOTION: WHEELCHAIR - SCORE: 0-UNK LOCOMOTION: STAIRS: Activity did not occur on this shift LOCOMOTION: STAIRS - SCORE: 0-UNK COMPREHENSION: COMPREHENSION: TYPE: Both COMPREHENSION - STEP 1: Does the patient require help from a person or device, or need extra time to understand complex and a bstract ideas (such as current events, finances, discharge planning, medical issues, relationships, e tc)? No. COMPREHENSION - STEP 2: Does the patient need extra time, require an assistive device (such as glasses for visual comprehensi on or a hearing aid for auditory comprehension) or does s/he have mild difficulty understanding compl ex and abstract information? No. COMPREHENSION - SCORE: 7-IND EXPRESSION EXPRESSION: TYPE: Both EXPRESSION - STEP 1: Does the patient require help from a person or device, or need extra time expressing complex and abst ract ideas (such as current events, finances, discharge planning, medical issues, relationships, etc) ? No. EXPRESSION - STEP 2: Does the patient need extra time, require an assistive device (such as augmentive communication syste m or a communication board), OR does s/he have mild difficulty expressing complex and abstract ideas (including mild dysarthria or mild word-find problems)? No. EXPRESSION - SCORE: 7-IND SOCIAL INTERACTION: SOCIAL INTERACTION - STEP 1: Does the patient require a helper to interact with others in social and therapeutic situations? No. SOCIAL INTERACTION - STEP 2: Does the patient need extra time in social situations, OR does s/he interact with staff, other patien ts, and family members ONLY in structured environments, OR does s/he require medication for social in teraction? No. SOCIAL INTERACTION - SCORE: 7-IND PROBLEM SOLVING: PROBLEM SOLVING - STEP 1: Does the patient need help from a person or device, or need extra time to solve complex problems such as managing a checking account or confronting interpersonal problems? No. PROBLEM SOLVING - STEP 2: Does the patient require extra time to make decisions or solve problems, OR does s/he have slight dif ficulty reading, initiating, or self-correcting in unfamiliar situations? No. PROBLEM SOLVING - SCORE: 7-IND MEMORY: MEMORY - STEP 1: Does the patient need help from a person or device, or need extra time to remember frequently encount ered people, daily routines, and executing requests? No. MEMORY - STEP 2: Does the patient have slight difficulty recognizing frequently encountered people, daily routines, or executing requests without the need for repetition or using self-initiated or environmental cues to remember? No. MEMORY - SCORE: 7-IND SIGNATURE PANEL: The following modified sections: Eating - Score, Grooming - Score, Bathing - Score, Dressing - Upper Body - Score, Dressing - Lower Body - Score, Toileting - Score, Transfers: Bed, Chair, Wheelchair - S core, Transfers: Toilet - Score, Transfers: Tub - Score, Transfers: Shower - Score, Comprehension - S core, Expression - Score, Social Interaction - Score, Problem Solving - Score, Memory - Score were [e lectronically] signed by Saundra Atkins OT on FriMar 03 2019 15:44:35 T-0500 ([facility])
[2019-03-03] MEDS ORDERED: HYDROCORTISONE 2.5% RECT CR PR PRN (16:04)
--- NOTE | 2019-03-03 16:28 | FAST ---
SHIFT START DATE/TIME: 03/03/2019 07:00 (CDT) SHIFT END DATE/TIME: 03/03/2019 19:00 (CDT) NAME MARCEL ZAZUETA DATE OF : 1935 DATE OF ADMISSION: 03/02/2019 16:50 (CDT) PHONE: AGE: 83 N# [id number] GENDER: Female ENCOUNTER PHYSICIAN: Dr. Jassi Gamboa M.D. ADMISSION DIAGNOSIS: - Medically Complex Conditions 17 - Circulatory Disorders (17.4) Peripheral arterial disease. EATING: EATING - STEP 1: Does the patient require the assistance of a person or device, or need extra time when eating? Yes. EATING - STEP 2: Does the patient require the assistance of a helper? Yes. EATING - STEP 3: Does the patient perform half or more of the eating tasks? Yes. EATING - STEP 4: Does the patient need only supervision, cuing, coaxing OR help to apply an orthosis OR help to cut fo od, open containers, pour liquids, or butter bread? Yes. EATING - SCORE: 5-SUP GROOMING: Activity did not occur on this shift GROOMING - SCORE: 0-UNK BATHING: Activity did not occur on this shift BATHING - SCORE: 0-UNK DRESSING - UPPER BODY: Activity did not occur on this shift ARTICLES SCORE Total number of steps: 0 DRESSING - UPPER BODY - SCORE: 0-UNK DRESSING - LOWER BODY: Activity did not occur on this shift ARTICLES SCORE Total number of steps: 0 DRESSING - LOWER BODY - SCORE: 0-UNK TOILETING: TOILETING - STEP 1: Does the patient require the assistance of a person or device, or need extra time with toileting? Yes . TOILETING - STEP 2: Does the patient require the assistance of a helper? Yes. TOILETING - STEP 3: How much assistance does the patient require from the helper? Hands-on assistance from the helper TOILETING - STEP 4: Of the 3 tasks: 1) Adjusting clothing prior to use, 2) Cleansing of perineal area, 3) Adjusting clot yessica after use; How many tasks does the patient perform WITHOUT assistance of the helper? Three tasks with steadying assistance from the helper TOILETING - SCORE: 4-MIN BLADDER MANAGEMENT: BLADDER MANAGEMENT - STEP 1: Does the patient control the bladder completely and intentionally without equipment or devices or med ications, and is always continent? No. BLADDER MANAGEMENT - STEP 2: Does the patient require the assistance of a helper? No, patient requires and independently uses an a ssistive device, such as a urinal, bedpan, bedside commode, catheter, absorbent pad, or collecting de vice BLADDER MANAGEMENT - SCORE: 6-ABBEY BOWEL MANAGEMENT: Activity did not occur on this shift BOWEL MANAGEMENT - SCORE: 7-IND TRANSFERS: BED, CHAIR, WHEELCHAIR: TRANSFERS: BED, CHAIR, WHEELCHAIR - STEP 1: Does the patient require assistance of a person or device, or need extra time with bed, chair, or whe elchair transfers? Yes. TRANSFERS: BED, CHAIR, WHEELCHAIR - STEP 2: Does the patient require the assistance of a helper? No. Patient only requires an assistive device fo r bed, chair, wheelchair transfers such as a sliding board, grab bar, or brace, OR s/he takes more th an reasonable time, OR there is a safety concern when s/he performs the transfers TRANSFERS: BED, CHAIR, WHEELCHAIR - SCORE: 6-ABBEY TRANSFERS: TOILET: TRANSFERS: TOILET - STEP 1: Does the patient require the assistance of a person or device, or need extra time with toilet transfe rs? Yes. TRANSFERS: TOILET - STEP 2: Does the patient require the assistance of a helper? No. Patient only requires an assistive device knox ch as a grab bar or special seat, OR s/he takes more than reasonable time to perform toilet transfers , OR there is a safety concern when s/he performs toilet transfers. TRANSFERS: TOILET - SCORE: 6-ABBEY TRANSFERS: SHOWER: Activity did not occur on this shift TRANSFERS: SHOWER - SCORE: 0-UNK TRANSFERS: TUB: Activity did not occur on this shift TRANSFERS: TUB - SCORE: 0-UNK LOCOMOTION: WALK: Activity did not occur on this shift LOCOMOTION: WALK - SCORE: 0-UNK LOCOMOTION: WHEELCHAIR: Activity did not occur on this shift LOCOMOTION: WHEELCHAIR - SCORE: 0-UNK COMPREHENSION: COMPREHENSION: TYPE: Both COMPREHENSION - STEP 1: Does the patient require help from a person or device, or need extra time to understand complex and a bstract ideas (such as current events, finances, discharge planning, medical issues, relationships, e tc)? No. COMPREHENSION - STEP 2: Does the patient need extra time, require an assistive device (such as glasses for visual comprehensi on or a hearing aid for auditory comprehension) or does s/he have mild difficulty understanding compl ex and abstract information? Yes. COMPREHENSION - SCORE: 6-ABBEY EXPRESSION EXPRESSION: TYPE: Both EXPRESSION - STEP 1: Does the patient require help from a person or device, or need extra time expressing complex and abst ract ideas (such as current events, finances, discharge planning, medical issues, relationships, etc) ? No. EXPRESSION - STEP 2: Does the patient need extra time, require an assistive device (such as augmentive communication syste m or a communication board), OR does s/he have mild difficulty expressing complex and abstract ideas (including mild dysarthria or mild word-find problems)? Yes. EXPRESSION - SCORE: 6-ABBEY SOCIAL INTERACTION: SOCIAL INTERACTION - STEP 1: Does the patient require a helper to interact with others in social and therapeutic situations? No. SOCIAL INTERACTION - STEP 2: Does the patient need extra time in social situations, OR does s/he interact with staff, other patien ts, and family members ONLY in structured environments, OR does s/he require medication for social in teraction? Yes, patient needs extra time SOCIAL INTERACTION - SCORE: 6-ABBEY PROBLEM SOLVING: PROBLEM SOLVING - STEP 1: Does the patient need help from a person or device, or need extra time to solve complex problems such as managing a checking account or confronting interpersonal problems? No. PROBLEM SOLVING - STEP 2: Does the patient require extra time to make decisions or solve problems, OR does s/he have slight dif ficulty reading, initiating, or self-correcting in unfamiliar situations? Yes, patient needs extra ti me. PROBLEM SOLVING - SCORE: 6-ABBEY MEMORY: MEMORY - STEP 1: Does the patient need help from a person or device, or need extra time to remember frequently encount ered people, daily routines, and executing requests? No. MEMORY - STEP 2: Does the patient have slight difficulty recognizing frequently encountered people, daily routines, or executing requests without the need for repetition or using self-initiated or environmental cues to remember? Yes. MEMORY - SCORE: 6-ABBEY SIGNATURE PANEL: The following modified sections: Eating - Score, Grooming - Score, Bathing - Score, Dressing - Upper Body - Score, Dressing - Lower Body - Score, Toileting - Score, Bladder Management - Score, Bowel Man agement - Score, Transfers: Bed, Chair, Wheelchair - Score, Transfers: Toilet - Score, Transfers: Araceli wer - Score, Transfers: Tub - Score, Locomotion: Walk - Score, Locomotion: Wheelchair - Score, Compre hension - Score, Expression - Score, Social Interaction - Score, Problem Solving - Score, Memory - Sc ore were [electronically] signed by Nicholas Fowler on FriMar 03 2019 16:28:07 GMT-0500 (Central Daylight Time)
--- NOTE | 2019-03-03 17:32 | P.PN ---
Subjective Date of Service: 03/03/19 Chief Complaint: WEAKNESS AFTER THROMBECTOMY Subjective: Improving STABLE. NO PAIN. Review of Systems 10-point ROS is otherwise unremarkable Physical Examination - Vital Signs Temperature: 97.2 F Blood Pressure: 170/68 Pulse: 60 Respirations: 14 Pulse Ox (%): 96 - Physical Exam General: Alert, In no apparent distress HEENT: Atraumatic, PERRLA, EOMI Neck: Supple, JVD not distended Respiratory: Clear to auscultation bilaterally, Normal air movement Cardiovascular: Regular rate/rhythm, Normal S1 S2 Gastrointestinal: Normal bowel sounds, No tenderness Musculoskeletal: No tenderness Integumentary: No rashes Neurological: Normal speech, Abnormal strength (GEN WEAK, UNSTEADY.), Abnormal tone Lymphatics: No axilla or inguinal lymphadenopathy - Studies Laboratory Data (last 24 hrs) 03/03/19 06:15: Sodium 136, Potassium 3.7, BUN 21 H, Creatinine 1.06, Glucose 89 , Magnesium 1.5 L D 03/03/19 06:15: WBC 4.3, Hgb 9.4 L, Hct 28.0 L, Plt Count 198 Medications List Reviewed: Yes Assessment And Plan - Current Problems (Diagnosis) (1) General weakness Current Visit: Yes Status: Acute Plan: SINCE SURGERY. CONTINUE PT. WEAK, GEN. STABLE. (2) Thromboembolism of lower extremity artery Current Visit: Yes Status: Acute Plan: RECOVERING. NOW THE L LEG HAS GOOD NORMAL TEMPERATURE. (3) UTI (urinary tract infection) Current Visit: Yes Status: Acute Plan: FROM [facility]. ALREADY TREATED. SHOULD REPEAT UA TO DC ABX. (4) CAD (coronary artery disease) Current Visit: No Status: Acute (5) Chronic renal disease Onset Date: 05/11/15 Current Visit: No Status: Acute (6) History of femoropopliteal bypass Current Visit: No Status: Acute
--- NOTE | 2019-03-03 18:00 | R.HP ---
FACILITY: [facility] ENCOUNTER DATE AND TIME: 03/03/2019 17:55 (CDT) MR#: [id number] NAME CASEY ZAZUETA ADDRESS: [address] [place] [address] CITY: [place] ZIP [id number] PHONE: DATE OF : 1935 AGE: 83 SSN# [id number] GENDER: Female DEXTERITY Right-handed MARITAL STATUS RACE White PRE-HOSPITAL LIVING SETTING 01 - Home (private home/apt. board/care, assisted living, penitentiary, transitional living) PRE-HOSPITAL LIVING WITH Family/Relatives ENCOUNTER PHYSICIAN: Dr. Jassi Gamboa M.D. REFERRING DOCTOR: Baldev Santiago DATE OF ADMISSION: 03/02/2019 16:50 (CDT) REFERRING FACILITY [facility] HOME TYPE AND DETAILS: Type of home: single family house # of steps within the residence: 0 # of steps to enter the residence: 0 # of levels in the residence: 1 ADMISSION DIAGNOSIS: Peripheral arterial disease ONSET DATE: 02/05/2019 PRIMARY DIAGNOSIS-RELATED SURGERIES: left common femoral thromboendarterectomy, profunda endarterectomy and patch angioplasty thrombectomy of the left common femoral to below knee popliteal artery bypass using a 4 yi fogart y catheter SECONDARY/COMORBID DIAGNOSES (TIERED): - N/A hypertension hypercholesteremia CAD Stage 3 chronic kidney disease acute blood less anemia 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 is a 83 yo Right-handed white female. On 02/05/2019 she was admitted to [facility] with diagnosis Peripheral arterial disease. Her impairment category is Medically Complex Conditions 17 - Circulatory Disorders (17.4). Pre-morbidly, Pt. was independent/mod-I in Self-Care, Sphincter Control, Transfers Control, Locomotio n, Communication, and Social Cognition; and she had good Sphincter Control. Currently, she has deficits of Self-Care, Transfers Control, Locomotion, Endurance, Balance, and Safe ty Awareness. Pt. is now referred to [facility] for acute in-patient rehabilitation in order to maximize patient's functional independence in activities of daily living, strength, ROM, and mobi lity. Patient has realistic goal of being discharged at assistance level 6-Marvel to reside at Home with Fam gisell/Relatives. Casey Zazueta is an 83 old female that lives alone in a single terri house. Patient was independent with ADLs and household ambulation. On 02/06/2019, she had acute worsening of left lower extremity pain and was accompanied by motor deficit and sensory loss and absence of pedal signals and was admitted at [facility]. She is now medically stable but in need of 24-hour nursing, doctor supervision and oversite participate in 3hours of therapy a day/15 hours per week and receive care with an intensive interdisciplinary approach. 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 SOCIAL HISTORY: - Home Living Family/Relatives REVIEW OF SYSTEMS: - Gen No Chills Fatigue No Fever - Eyes No Double Vision No itchiness - ENMT No Difficulty Swallowing - CVS No Chest Discomfort No Chest Pain Fatigue No Weight Gain - Resp No Cough No Shortness of Breath - GI Continent No Abdominal Pain No Constipation No Diarrhea - Continent No Kidney Pain No Painful Urination No Urinary Urgency - MSK Joint Pain Muscle Cramps Stiffness - Skin No Itching No Rash No Suspicious Lesions - Neuro Coordination Difficulty No Difficulty with Concentration No Memory Loss No Seizures Weakness - Psych No Anxiety No Depression No HIV Exposure No Persistent Infections No Seasonal Allergies - Endo No Cold/Heat Intolerance No Excessive Hunger No Excessive Thirst No Excessive Urination PHYSICAL EXAM - Gen Alert and awake Lying in bed No apparent distress Oriented to: person, time, and place - Skin No breakdown No abnormalities - Eyes No abnormalities - ENMT No abnormalities - Neck No abnormalities - CVS RRR - Chest No abnormalities - Resp Clear to auscultation - Abd Soft - GI Non distended Deferred - No abnormalities - Ext Mild left lower extremity edema. - MSK 4+/5 weakness in left lower extremity - Neuro 4/5 strength left lower extremity. - Psych No abnormalities VITAL SIGNS Temperature: 98.6 F SBP/DBP: 170/68 Pulse: 60 Resp: 14 NURSING: - Shower allowing shower ACTIVITIES OOB only with supervision FUNCTIONAL STATUS: - Self-Care A. Eating Ind sup B. Grooming Ind sup C. Bathing Ind Marvel D. Dressing - Upper Ind sup E. Dressing - Lower Ind Altaf F. Toileting Ind Altaf - Sphincter Control G: Bladder control Ind Ind H: Bowel control Ind Ind - Transfers Control I. Bed/Chair/Wheelchair Ind Altaf J. Toilet Ind Altaf K. Tub/Shower Ind ADNO - Locomotion L. Walk/Wheelchair (C) Ind Altaf L. Walk/Wheelchair (W) Ind Altaf M. Stairs Ind ADNO - Communication N. Comprehension (B) Ind Ind O. Expression (B) Ind Ind - Social Cognition P. Social Interaction Ind Ind Q. Problem Solving Ind Ind R. Memory Ind Ind - Endurance Poor - Balance Fair - Safety Awareness Fair CURRENT FUNC. DEFICITS: Self-Care, Transfers Control, Locomotion, Endurance, Balance, and Safety Awareness MEDICATIONS: - Other See attached MAR (Medication Administration Record) Casey [email or web address].pdf ASSESSMENT: Pt. is a 83 yo Right-handed white female.On 02/05/2019 she was admitted to [facility] with diagnosis P eripheral arterial disease.Her impairment category is Medically Complex Conditions 17 - Circulatory Disorders (17.4).Pre-morbidly, Pt. was independent/mod-I in Self-Care, Sphincter Control, Transfers C ontrol, Locomotion, Communication, and Social Cognition; and she had good Sphincter Control.Currently , she has deficits of Self-Care, Transfers Control, Locomotion, Endurance, Balance, and Safety Awaren ess.Pt. is now referred to [facility] for acute in-patient rehabilitation in [facility] to maximize patient's functional independence in activities of daily living, strength, ROM, and mobility.- Rehab Goal Patient has realistic goal of being discharged at assistance level 6-Marvel to reside at Home with Fam gisell/Relatives. Casey aZzueta is an 83 old female that lives alone in a single terri house. Patient was independent with ADLs and household ambulation. On 02/06/2019, she had acute worsening of left lower extremity pain and was accompanied by motor deficit and sensory loss and absence of pedal signals and was admitted at [facility]. She is now medically stable but in need of 24-hour nursing, doctor supervision and oversite participate in 3hours of therapy a day/15 hours per week and receive care with an intensive interdisciplinary approach.REHAB PLAN: - Physical Therapy Gait dysfunction - to improve, our physical therapists will perform initial evaluation of pt's status upon admission and devise an individualized program for Gait Training, and Wheel Chair mobility Inability to transfer - to improve, our physical therapists will perform initial evaluation of pt's s tatus upon admission and devise an individualized program for Bed mobility Need for home safety evaluation - to improve, our physical therapists will perform initial evaluation of pt's status upon admission and devise an individualized program for Home Evaluation Need in caregiver upon discharge - to improve, our physical therapists will perform initial evaluatio n of pt's status upon admission and devise an individualized program for Caregiver Training New precaution - to improve, our physical therapists will perform initial evaluation of pt's status u pranav admission and devise an individualized program for Patient precaution education Edema - to improve, our physical therapists will perform initial evaluation of pt's status upon admi ssion and devise an individualized program for Elevation Training, and Lymphedema Therapy Poor balance - to improve, our physical therapists will perform initial evaluation of pt's status upo n admission and devise an individualized program for Balance Training Poor endurance - to improve, our physical therapists will perform initial evaluation of pt's status u pranav admission and devise an individualized program for Endurance Training Weakness - to improve, our physical therapists will perform initial evaluation of pt's status upon ad mission and devise an individualized program for Aquatic Therapy, Neuromuscular Reeducation, and Stre ngthening Achieving independence - to improve, our physical therapists will perform initial evaluation of pt's status upon admission and devise an individualized program for Community Reintegration Activities - Occupational Therapy ADL deficits - to improve, our occupation therapists will perform initial evaluation of pt's status u pranav admission and devise an individualized program for Bathing, Bed mobility, Community Reintegration , Cooking, Dressing, Eating, Fine Motor Skills, Grooming, Homemaking, Kitchen Mobility, Laundry, Leslie ent Education, Safety Awareness, Splinting - Positioning, Transfers(Toilet, Tub, Shower), and Wheel C hair Management Need for care administrative tech - to improve, our occupation therapists will perform initial evaluation of pt's s tatus upon admission and devise an individualized program for Caregiver Training Weakness - to improve, our occupation therapists will perform initial evaluation of pt's status upon admission and devise an individualized program for Aquatic Therapy, Balance, Endurance, UE ROM, and U E strengthening MEDICAL PLAN: - Diet Type Start Regular - Diet - Liquid Texture Start Regular - Tube Feed Start N/A - Other See attached MAR (Medication Administration Record) See attached MAR (Medication Administration Record) Casey [email or web address].pdf - Diet - Solid Texture Regular - Shower shower DISCHARGE PLAN: - Estimated Length of Stay (days) 13. - Consensus on plan Discharge plan has been discussed with primary caregiver. Patient/Family is in agreement with the korina n. Primary caregiver is in agreement with the plan. - Patient/Family Goals Return home with assistance. - Planned Living Setting Upon Discharge Home, to live with Family/Relatives. Transitional Living. SIGNATURE PANEL: (CDT)
--- NOTE | 2019-03-03 18:02 | PAPE ---
PATIENT: [facility] MR# [id number] REFERRING DOCTOR Baldev Santiago EVALUATION DATE AND TIME 03/03/2019 18:00 (CDT) NAME MARCEL ZAZUETA DATE OF 1935 AGE 83 PHONE N# [id number] GENDER female EVALUATING PHYSICIAN Dr. Jassi Gamboa M.D. 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 PATIENT NEEDS CLOSE MEDICAL SUPERVISION BY A REHABILITATION PHYSICIAN FOR: Bowel and Bladder Management Coordination of Treatment Team Medical and Co-Morbidity Management PATIENT REQUIRES 24X7 REHAB NURSING FOR MEDICAL AND FUNCTIONAL MGT. OF THE FOLLOWING DEFICITS: ADL's Ambulation Bowel and Bladder Management Communication Disease Management Medication Management Patient/Family Education Providing Safe Environment Transfers PATIENT REQUIRES INTENSIVE, COORDINATED INTERDISCIPLINARY APPROACH TO REHAB: Arranging Home Equipment/Services Discharge Planning Family Intervention/Training Packaging Engineer/Case Management LIST OF IDENTIFIED AND POTENTIAL PROBLEMS: Alteration in leisure activities Bladder, Incontinence Blood Pressure, Hypertension/hypotension Issues Bowel, Incontinence Infection, Actual or Potential Mobility Impaired Pain, Alteration in Comfort Self Care Deficit Skin Integrity, Actual or Potential Urinary Tract Infection (UTI), Actual or Potential RISK FOR COMPLICATIONS - Hypertension CVA. Hypotension. SC. TIA. - CAD CHF. Cardiac Arrest. SC. Pain. INTERVENTIONS - Hypertension - CAD 02 sats. Activity management. Medications. VS. PATIENT COULD BE AT RISK FOR COMPLICATIONS FROM ADVERSE MEDICAL CONDITIONS DUE TO HIS/HER COMORBIDITI ES AND THE RIGORS OF THE INTENSIVE REHABILLITATION PROGRAM. METHODS OR INTERVENTIONS TO AVOID COMPLIC ATIONS INCLUDE: - Infection Clinical staff to assess and manage the signs and symptoms of infection including fever, redness, war mth, etc. - Urinary Tract Infection - Falls Patient will be evaluated for Fall Precautions and will be placed on Fall Precautions as indicated pe r protocol. - Skin Breakdown Nursing will assess skin daily using assessment tool and will place on Skin Breakdown Precautions as indicated per protocol. - Pain Clinical staff may employ non-medication methods such as massage, distraction, decrease stimulus, etc . as needed. Clinical staff will assess patient's pain level every shift per protocol to assess and e nsure pain management effectiveness. Medications will be given and the pain level re-assessed. PRELIMINARY PLAN OF CARE: - Physical Therapy Patient needs Physical Therapy for a daily minimum of 1.5 hours at least 5 out of 7 days, to improve: Mobility, Strengthening, Transfers, Stretching, ROM, Endurance, Ability to manage stairs, Gait, and Balance. - Rehabilitation Nursing Patient requires 24x7 Rehabilitation Nursing for: Pain Issues, Identifying and preventing risk factor s, Monitoring and reporting current medical conditions, Assisting with ambulation and transfer, Vinay ting with all ADL-s, Teaching patients about disease process and medications, Family teaching, Provid ing safe environment, Bowel and Bladder Issues, Skin Integrity, and Medication Management. Patient needs Packaging Engineer and/or Case Management for: Discharge Planning, Arranging Home Equipmen t or Services, and Family Interventions. - Dietary and Nutrition Services Patient needs Dietary and Nutrition Services for: Adequate Nutrition, Nutritional Supplements, and Nu tritional Education. - Occupational Therapy Patient needs Occupational Therapy for a daily minimum of 1.5 hours at least 5 out of 7 days, to impr ove Activities of Daily Living, including: Eating, Grooming, Bathing, Dressing, Toileting, Toilet Tra nsfers, Community Reintegration, Higher functional activities, Adaptive Equipment, Splinting, Househo ld Tasks, and Other activities as determined. POTENTIAL FUNCTIONAL GOALS FOR PATIENT TO ACHIEVE BY DISCHARGE: - Safety Precaution Patient will remain free from falls or injury at time of discharge. - Bed Mobility Patient will perform bed mobility at 4-Altaf level of assistance. - Transfers Patient will complete transfers from bed to chair at 4-Altaf level of assistance. - Mobility Patient will ambulate 150 ft with 4-Altaf level of assistance with RW. PATIENT REHAB POTENTIAL Kaitlin ZAZUETA is able and expected to receive 3 hours of individualized therapy daily on at least 5 of ev deo 7 days Kaitlin ZAZUETA's prognosis for significant practical improvement within a reasonable period of time appear s Good Expected level of measurable improvement will be of a practical value to CJesus ZAZUETA's functional capac ity or adaptations to impairments Has a viable Discharge Plan Medically appropriate; condition is sufficiently stable to participate in intensive rehab program DISCHARGE PLAN: - Estimated Length of Stay (days) 13. - Consensus on plan Discharge plan has been discussed with primary caregiver. Patient/Family is in agreement with the korina n. Primary caregiver is in agreement with the plan. - Patient/Family Goals Return home with assistance. - Planned Living Setting Upon Discharge Home, to live with Family/Relatives. Transitional Living. CONCLUSION ON REHABILITATION NECESSITY: I have evaluated patient's pre-admission functional status and, comparing it to the patient's post-ad mission functional status now, I conclude that the pre-admission assessment was accurate. Patient's c ondition on admission supports the medical necessity of admission to [facility]. It is safe to proceed with patient's therapy program. SIGNATURE PANEL: (CDT)
[2019-03-03] MEDS: MAGNESIUM OXIDE 400 MG TAB PO SCH (19:05)
[2019-03-03] MEDS: ATORVASTATIN 80 MG TAB PO SCH (19:05)
[2019-03-03] MEDS: MELATONIN 3 MG TABLET PO PRN (19:07)
[2019-03-03] MEDS: TAMSULOSIN 0.4 MG SR CAP PO SCH (19:07)
[2019-03-03] MEDS: HYDRALAZINE HCL 25 MG TABLET PO SCH (19:07)
[2019-03-03] MEDS ORDERED: MAGNESIUM OXIDE 400 MG TAB PO SCH (20:00)
[2019-03-03] MEDS ORDERED: AMLODIPINE 10 MG TAB PO SCH (21:00)
[2019-03-04 05:59] LABS: Absolute Lymphocytes (CBC) 1.2 K/uL (0.7-4.9); Hematocrit 26.3 % (36.0-45.0); Lymphocytes % 25.5 % (15.3-44.8); MPV 8.6 fL (7.6-11.3); RBC Red Blood Cell Count 2.82 M/uL (3.86-4.86)
[2019-03-04 06:19] LABS: Albumin 2.4 g/dL (3.4-5.0); Magnesium 1.7 mg/dL (1.8-2.4); Potassium 4.3 mmol/L (3.5-5.1); Prealbumin 20.5 mg/dL (20-40)
[2019-03-04] MEDS: LEVOTHYROXINE SOD 0.05 MG TABLET PO SCH (06:59)
[2019-03-04] MEDS ORDERED: VALSARTAN 160 MG TAB PO SCH (08:00)
[2019-03-04] MEDS: SUCRALFATE 1 GM TABLET PO SCH ×4 (08:12→19:10)
[2019-03-04] MEDS: LIDOCAINE 5% PATCH TOP SCH (08:12)
[2019-03-04] MEDS: FUROSEMIDE 20 MG TABLET PO SCH (08:13)
[2019-03-04] MEDS: RIVAROXABAN 15 MG TABLET PO SCH (08:13)
[2019-03-04] MEDS: CARVEDILOL 6.25 MG TAB PO SCH ×2 (08:13→19:10)
[2019-03-04] MEDS: GABAPENTIN 100 MG CAP PO SCH ×2 (08:13→19:11)
[2019-03-04] MEDS: ASPIRIN EC 81 MG TAB PO SCH (08:14)
[2019-03-04] MEDS: PANTOPRAZOLE 40MG TABLET PO SCH (08:14)
[2019-03-04] MEDS: CYANOCOBALAMIN 1,000 MCG TAB PO SCH (08:14)
[2019-03-04] MEDS: VITAMIN D 1000 UNIT TAB PO SCH (08:14)
[2019-03-04] MEDS: MAGNESIUM OXIDE 400 MG TAB PO SCH ×2 (08:15→19:10)
[2019-03-04] MEDS: HYDRALAZINE HCL 25 MG TABLET PO SCH ×3 (08:15→19:11)
[2019-03-04] MEDS: VITAMIN E 400 IU CAP PO SCH (08:15)
[2019-03-04] MEDS: DULOXETINE 30 MG CAP PO SCH (08:16)
[2019-03-04] MEDS: TRAMADOL HCL 50 MG TAB PO PRN (08:32)
--- NOTE | 2019-03-04 10:51 | FAST ---
SHIFT START DATE/TIME: 03/04/2019 07:00 (CDT) SHIFT END DATE/TIME: 03/04/2019 19:00 (CDT) NAME MARCEL ZAZUETA DATE OF : 1935 DATE OF ADMISSION: 03/02/2019 16:50 (CDT) PHONE: AGE: 83 N# [id number] GENDER: Female ENCOUNTER PHYSICIAN: Dr. Jassi Gamboa M.D. ADMISSION DIAGNOSIS: - Medically Complex Conditions 17 - Circulatory Disorders (17.4) Peripheral arterial disease. EATING: EATING - STEP 1: Does the patient require the assistance of a person or device, or need extra time when eating? Yes. EATING - STEP 2: Does the patient require the assistance of a helper? Yes. EATING - STEP 3: Does the patient perform half or more of the eating tasks? Yes. EATING - STEP 4: Does the patient need only supervision, cuing, coaxing OR help to apply an orthosis OR help to cut fo od, open containers, pour liquids, or butter bread? Yes. EATING - SCORE: 5-SUP GROOMING: Activity did not occur on this shift GROOMING - SCORE: 0-UNK BATHING: Activity did not occur on this shift BATHING - SCORE: 0-UNK DRESSING - UPPER BODY: Activity did not occur on this shift ARTICLES SCORE Total number of steps: 0 DRESSING - UPPER BODY - SCORE: 0-UNK DRESSING - LOWER BODY: Activity did not occur on this shift ARTICLES SCORE Total number of steps: 0 DRESSING - LOWER BODY - SCORE: 0-UNK TOILETING: TOILETING - STEP 1: Does the patient require the assistance of a person or device, or need extra time with toileting? Yes . TOILETING - STEP 2: Does the patient require the assistance of a helper? Yes. TOILETING - STEP 3: How much assistance does the patient require from the helper? Hands-on assistance from the helper TOILETING - STEP 4: Of the 3 tasks: 1) Adjusting clothing prior to use, 2) Cleansing of perineal area, 3) Adjusting clot yessica after use; How many tasks does the patient perform WITHOUT assistance of the helper? Two tasks TOILETING - SCORE: 3-MOD BLADDER MANAGEMENT: BLADDER MANAGEMENT - STEP 1: Does the patient control the bladder completely and intentionally without equipment or devices or med ications, and is always continent? No. BLADDER MANAGEMENT - STEP 2: Does the patient require the assistance of a helper? No, patient requires and independently uses an a ssistive device, such as a urinal, bedpan, bedside commode, catheter, absorbent pad, or collecting de vice BLADDER MANAGEMENT - SCORE: 6-ABBEY BOWEL MANAGEMENT: Activity did not occur on this shift BOWEL MANAGEMENT - SCORE: 7-IND TRANSFERS: BED, CHAIR, WHEELCHAIR: TRANSFERS: BED, CHAIR, WHEELCHAIR - STEP 1: Does the patient require assistance of a person or device, or need extra time with bed, chair, or whe elchair transfers? Yes. TRANSFERS: BED, CHAIR, WHEELCHAIR - STEP 2: Does the patient require the assistance of a helper? Yes. TRANSFERS: BED, CHAIR, WHEELCHAIR - STEP 3: How much assistance does the patient require from the helper? Steadying/guiding assistance TRANSFERS: BED, CHAIR, WHEELCHAIR - SCORE: 4-MIN TRANSFERS: TOILET: TRANSFERS: TOILET - STEP 1: Does the patient require the assistance of a person or device, or need extra time with toilet transfe rs? Yes. TRANSFERS: TOILET - STEP 2: Does the patient require the assistance of a helper? Yes. TRANSFERS: TOILET - STEP 3: How much assistance does the patient require from the helper? Patient performs half or more of the tr ansferring tasks TRANSFERS: TOILET - STEP 4: Does the patient need only incidental help such as contact guard or steadying during toilet transfer? Yes. TRANSFERS: TOILET - SCORE: 4-MIN TRANSFERS: SHOWER: Activity did not occur on this shift TRANSFERS: SHOWER - SCORE: 0-UNK TRANSFERS: TUB: Activity did not occur on this shift TRANSFERS: TUB - SCORE: 0-UNK LOCOMOTION: WALK: Activity did not occur on this shift LOCOMOTION: WALK - SCORE: 0-UNK LOCOMOTION: WHEELCHAIR: Activity did not occur on this shift LOCOMOTION: WHEELCHAIR - SCORE: 0-UNK COMPREHENSION: COMPREHENSION: TYPE: Both COMPREHENSION - STEP 1: Does the patient require help from a person or device, or need extra time to understand complex and a bstract ideas (such as current events, finances, discharge planning, medical issues, relationships, e tc)? No. COMPREHENSION - STEP 2: Does the patient need extra time, require an assistive device (such as glasses for visual comprehensi on or a hearing aid for auditory comprehension) or does s/he have mild difficulty understanding compl ex and abstract information? Yes. COMPREHENSION - SCORE: 6-ABBEY EXPRESSION EXPRESSION: TYPE: Both EXPRESSION - STEP 1: Does the patient require help from a person or device, or need extra time expressing complex and abst ract ideas (such as current events, finances, discharge planning, medical issues, relationships, etc) ? No. EXPRESSION - STEP 2: Does the patient need extra time, require an assistive device (such as augmentive communication syste m or a communication board), OR does s/he have mild difficulty expressing complex and abstract ideas (including mild dysarthria or mild word-find problems)? Yes. EXPRESSION - SCORE: 6-ABBEY SOCIAL INTERACTION: SOCIAL INTERACTION - STEP 1: Does the patient require a helper to interact with others in social and therapeutic situations? No. SOCIAL INTERACTION - STEP 2: Does the patient need extra time in social situations, OR does s/he interact with staff, other patien ts, and family members ONLY in structured environments, OR does s/he require medication for social in teraction? Yes, patient needs extra time SOCIAL INTERACTION - SCORE: 6-ABBEY PROBLEM SOLVING: PROBLEM SOLVING - STEP 1: Does the patient need help from a person or device, or need extra time to solve complex problems such as managing a checking account or confronting interpersonal problems? Yes. PROBLEM SOLVING - STEP 2: Does the patient solve basic routine problems half or more of the time? Yes. PROBLEM SOLVING - STEP 3: How often does the patient need help to solve basic routine problems? Less than 10% of the time PROBLEM SOLVING - SCORE: 5-SUP MEMORY: MEMORY - STEP 1: Does the patient need help from a person or device, or need extra time to remember frequently encount ered people, daily routines, and executing requests? Yes. MEMORY - STEP 2: How often does the patient need help to remember frequently encountered people, daily routines, and e xecuting requests? Less than 10% of the time MEMORY - SCORE: 5-SUP SIGNATURE PANEL: The following modified sections: Eating - Score, Grooming - Score, Bathing - Score, Dressing - Upper Body - Score, Dressing - Lower Body - Score, Toileting - Score, Bladder Management - Score, Bowel Man agement - Score, Transfers: Bed, Chair, Wheelchair - Score, Transfers: Toilet - Score, Transfers: Araceli wer - Score, Transfers: Tub - Score, Locomotion: Walk - Score, Locomotion: Wheelchair - Score, Compre hension - Score, Expression - Score, Social Interaction - Score, Problem Solving - Score, Memory - Sc ore were [electronically] signed by Nicholas Fowler on FriMar 04 2019 10:49:52 GMT-0500 (Central Daylight Time)
[2019-03-04] MEDS: VALSARTAN 160 MG TAB PO SCH (12:18)
[2019-03-04] MEDS: ACETAMINOPHEN 325 MG TABLET PO PRN ×2 (12:19→19:13)
--- NOTE | 2019-03-04 12:52 | P.PN ---
Subjective Date of Service: 03/04/19 Chief Complaint: WEAKNESS AFTER THROMBECTOMY Subjective: Improving STABLE. NO PAIN. SHE HAS NONEW COMPLAINTS. SHE HAS WALKED ALREADY FOR LAST TWO DAYS. Review of Systems 10-point ROS is otherwise unremarkable General: Weakness, Malaise Physical Examination - Vital Signs Temperature: 97.2 F Blood Pressure: 163/73 Pulse: 60 Respirations: 16 Pulse Ox (%): 97 - Physical Exam General: Alert, Mild distress HEENT: Atraumatic, PERRLA, EOMI Neck: Supple, JVD not distended Respiratory: Clear to auscultation bilaterally, Normal air movement Cardiovascular: Regular rate/rhythm, Normal S1 S2 Gastrointestinal: Normal bowel sounds, No tenderness Musculoskeletal: No tenderness Integumentary: No rashes Neurological: Normal speech, Normal tone, Normal affect Lymphatics: No axilla or inguinal lymphadenopathy - Studies Laboratory Data (last 24 hrs) 03/04/19 05:42: Sodium 133 L, Potassium 4.3, BUN 30 H, Creatinine 1.30, Glucose 87, Magnesium 1.7 L 03/04/19 05:42: WBC 4.7, Hgb 9.4 L, Hct 26.3 L, Plt Count 198 Medications List Reviewed: Yes Assessment And Plan - Current Problems (Diagnosis) (1) General weakness Current Visit: Yes Status: Acute Plan: SINCE SURGERY. CONTINUE PT. WEAK, GEN. STABLE. PT DAILY. (2) Thromboembolism of lower extremity artery Current Visit: Yes Status: Acute Plan: RECOVERING. NOW THE L LEG HAS GOOD NORMAL TEMPERATURE. (3) UTI (urinary tract infection) Current Visit: Yes Status: Acute Plan: FROM [facility]. ALREADY TREATED. SHOULD REPEAT UA TO DC ABX. UA NEG WHEN DONE SPECICATH. ABX STOPPED. (4) CAD (coronary artery disease) Current Visit: No Status: Acute (5) Chronic renal disease Onset Date: 05/11/15 Current Visit: No Status: Acute (6) History of femoropopliteal bypass Current Visit: No Status: Acute
[2019-03-04] MEDS: AMLODIPINE 10 MG TAB PO SCH (14:15)
[2019-03-04] MEDS: ATORVASTATIN 80 MG TAB PO SCH (19:10)
[2019-03-04] MEDS: MELATONIN 3 MG TABLET PO PRN (19:10)
[2019-03-04] MEDS: TAMSULOSIN 0.4 MG SR CAP PO SCH (19:11)
[2019-03-05] MEDS: ACETAMINOPHEN 325 MG TABLET PO PRN ×2 (03:00→08:03)
[2019-03-05] MEDS: LEVOTHYROXINE SOD 0.05 MG TABLET PO SCH (06:15)
[2019-03-05] MEDS: PANTOPRAZOLE 40MG TABLET PO SCH (06:15)
[2019-03-05] MEDS: VITAMIN E 400 IU CAP PO SCH (08:00)
[2019-03-05] MEDS: VALSARTAN 160 MG TAB PO SCH (08:01)
[2019-03-05] MEDS: DULOXETINE 30 MG CAP PO SCH (08:01)
[2019-03-05] MEDS: FERROUS SULFATE 325 MG TAB PO SCH (08:02)
[2019-03-05] MEDS: CARVEDILOL 6.25 MG TAB PO SCH ×2 (08:02→20:00)
[2019-03-05] MEDS: CYANOCOBALAMIN 1,000 MCG TAB PO SCH (08:02)
[2019-03-05] MEDS: MAGNESIUM OXIDE 400 MG TAB PO SCH ×2 (08:02→19:25)
[2019-03-05] MEDS: VITAMIN D 1000 UNIT TAB PO SCH (08:03)
[2019-03-05] MEDS: GABAPENTIN 100 MG CAP PO SCH ×2 (08:03→19:24)
[2019-03-05] MEDS: FE SULF/FA/VIT B COMP & C TAB PO SCH (08:04)
[2019-03-05] MEDS: FUROSEMIDE 20 MG TABLET PO SCH (08:04)
[2019-03-05] MEDS: ASPIRIN EC 81 MG TAB PO SCH (08:04)
[2019-03-05] MEDS: RIVAROXABAN 15 MG TABLET PO SCH (08:04)
[2019-03-05] MEDS: SUCRALFATE 1 GM TABLET PO SCH ×4 (08:04→20:56)
[2019-03-05] MEDS: HYDRALAZINE HCL 25 MG TABLET PO SCH ×3 (08:08→20:57)
--- NOTE | 2019-03-05 09:54 | P.RH.PN ---
Estimated Length of Stay: 14 Expected Discharge Date: 03/15/19 Discharge Disposition Plan: Home Family Support: Yes Skilled Nursing Goal: Mobility, Transfers, Self Care Vital Signs: Last Vital Signs Temp 97.1 F 03/05/19 06:50 Pulse 56 03/05/19 08:04 Resp 16 03/05/19 06:50 BP 140/54 L 03/05/19 08:04 Pulse Ox 98 03/05/19 06:50 Laboratory: Laboratory Last Values WBC 4.7 K/uL (4.3-10.9) 03/04/19 05:42 RBC 2.82 M/uL (3.86-4.86) L 03/04/19 05:42 Hgb 9.4 g/dL (12.0-15.0) L 03/04/19 05:42 Hct 26.3 % (36.0-45.0) L 03/04/19 05:42 MCV 93.2 fL (80-100) 03/04/19 05:42 MCH 33.4 pg (27.0-35.0) 03/04/19 05:42 MCHC 35.8 g/dL (32.0-36.0) 03/04/19 05:42 RDW 22.3 % (12.1-15.2) H 03/04/19 05:42 Plt Count 198 K/uL (152-406) 03/04/19 05:42 MPV 8.6 fL (7.6-11.3) 03/04/19 05:42 Neutrophils % 52.1 % (41.7-73.7) 03/04/19 05:42 Lymphocytes % 25.5 % (15.3-44.8) 03/04/19 05:42 Monocytes % 15.8 % (3.3-12.3) H 03/04/19 05:42 Eosinophils % 5.6 % (0-4.4) H 03/04/19 05:42 Basophils % 1.0 % (0-1.3) 03/04/19 05:42 Absolute Neutrophils 2.5 K/uL (1.8-8.0) 03/04/19 05:42 Segmented Neutrophils 61 % (40-80) 03/03/19 06:15 Absolute Lymphocytes 1.2 K/uL (0.7-4.9) 03/04/19 05:42 Lymphocytes 24 % (15-42) 03/03/19 06:15 Monocytes 10 % (0-10) 03/03/19 06:15 Absolute Monocytes 0.7 K/uL (0.1-1.3) 03/04/19 05:42 Eosinophils 1 % (0-3) 03/03/19 06:15 Absolute Eosinophils 0.3 K/uL (0-0.5) 03/04/19 05:42 Absolute Basophils 0.0 K/uL (0-0.5) 03/04/19 05:42 Reactive Lymphocytes 4 % 03/03/19 06:15 Anisocytosis 2+ 03/03/19 06:15 Schistocytes 2+ 03/03/19 06:15 Morphology Comment Noted (NOT SEEN) 03/03/19 06:15 Sodium 133 mmol/L (136-145) L 03/04/19 05:42 Potassium 4.3 mmol/L (3.5-5.1) 03/04/19 05:42 Chloride 101 mmol/L (98-107) 03/04/19 05:42 Carbon Dioxide 26 mmol/L (21-32) 03/04/19 05:42 BUN 30 mg/dL (7-18) H 03/04/19 05:42 Creatinine 1.30 mg/dL (0.55-1.3) 03/04/19 05:42 Estimated GFR 39 mL/min (=/>90) L 03/04/19 05:42 Glucose 87 mg/dL (74-106) 03/04/19 05:42 Calcium 8.5 mg/dL (8.5-10.1) 03/04/19 05:42 Magnesium 1.7 mg/dL (1.8-2.4) L 03/04/19 05:42 Albumin 2.4 g/dL (3.4-5.0) L 03/04/19 05:42 Prealbumin 20.5 mg/dL (20-40) 03/04/19 05:42 Urine Color Yellow 03/03/19 01:00 Urine Appearance Clear 03/03/19 01:00 Urine pH 7.5 (5.0-7.0) H 03/03/19 01:00 Ur Specific [place] 1.010 (1.005-1.030) 03/03/19 01:00 Urine Ketones Negative (NEG) 03/03/19 01:00 Urine Blood Negative (NEG) 03/03/19 01:00 Urine Nitrite Negative (NEG) 03/03/19 01:00 Urine Bilirubin Negative (NEG) 03/03/19 01:00 Urine Urobilinogen 0.2 mg/dL (0.2-1.0) 03/03/19 01:00 Ur Leukocyte Esterase Negative (NEG) 03/03/19 01:00 Urine RBC None seen /HPF (NONE SEEN) 03/03/19 01:00 Urine WBC <5 /HPF (<5) 03/03/19 01:00 Ur Squamous Epith Cells GYROSCOPE TECHNICIAN 03/03/19 01:00 Ur Urothelial Cells <5 /HPF (NONE SEEN) 03/03/19 01:00 Urine Bacteria <20 /HPF (<20) 03/03/19 01:00 Urine Culture Reflexed Not needed 03/03/19 01:00 Urine Glucose Negative (NEG) 03/03/19 01:00 Urine Total Protein Trace (NEG) 03/03/19 01:00 Weight: 136 lb Wound Present: Yes Closed Surgical Incision Present: Yes Negative Pressure Wound Therapy Present: No Physician Update: Her labs reviewed and are stable. She is making fair overall progress with all therapy. She plans to go back home along and will require more time to improve. Medical Issues: DVT Prophylaxis - 15mg Daily Pain Issues: Gabapentin 100mg BID PO. Lidoderm patch 5% Daily. Tramadol 50mg Q6H PO PRN Functional Improvement Occupational Therapy: Patient is very participatory and motivated to improve his current level of function to meet the LTG as set in POC prior to a safe d/c home. Summary: Patient's care plan and group home goals have been reviewed and revised as necessary. Please see the Rehabilitation Signature page for all necessary signatures.
[2019-03-05] MEDS: LIDOCAINE 5% PATCH TOP SCH (10:45)
[2019-03-05] MEDS: ONDANSETRON 4 MG (ODT) TAB PO PRN (11:28)
[2019-03-05] MEDS: AMLODIPINE 10 MG TAB PO SCH (12:29)
[2019-03-05] MEDS: TRAMADOL HCL 50 MG TAB PO PRN (12:34)
--- NOTE | 2019-03-05 13:29 | FAST ---
ENCOUNTER DATE AND TIME: 03/05/2019 08:00 (CDT) NAME MARCEL ZAZUETA DATE OF : 1935 DATE OF ADMISSION: 03/02/2019 16:50 (CDT) PHONE: AGE: 83 SSN# [id number] GENDER: Female ENCOUNTER PHYSICIAN: Dr. Jassi Gamboa M.D. ADMISSION DIAGNOSIS: - Medically Complex Conditions 17 - Circulatory Disorders (17.4) Peripheral arterial disease. EATING: Activity did not occur on this shift EATING - SCORE: 0-UNK GROOMING: Comb/brush hair Wash, rinse, and dry face Wash, rinse, and dry hands GROOMING - STEP 1: Does the patient require the assistance of a person or device, or need extra time when grooming? No. GROOMING - SCORE: 7-IND BATHING: Abdomen Buttocks Chest Left arm Left lower leg and foot Left upper leg Perineal area Right arm Right lower leg and foot Right upper leg BATHING - STEP 1: Does the patient require the assistance of a person or device, or need extra time when bathing? Yes. BATHING - STEP 2: Does the patient require the assistance of a helper? Yes. BATHING - STEP 3: How much assistance does the patient require from the helper? Only incidental help such as placement of a wash cloth in his/her hand a few times as s/he bathes OR help to bathe just one or two areas of the body BATHING - SCORE: 4-MIN DRESSING - UPPER BODY: Bra (three steps) Sweater (four steps) T-shirt/pullover shirt (four steps) ARTICLES SCORE Total number of steps: 11 DRESSING - UPPER BODY - STEP 1: Does the patient require help from a person or device, or need extra time when dressing above the [address]? Yes. DRESSING - UPPER BODY - STEP 2: Does the patient require the assistance of a helper? Yes. DRESSING - UPPER BODY - STEP 3: Does the helper touch the patient while dressing? No. DRESSING - UPPER BODY - SCORE: 5-SUP DRESSING - LOWER BODY: Elastic waist pants (three steps) Sock - Left foot (one step) Sock - Right foot (one step) Underwear (three steps) ARTICLES SCORE Total number of steps: 8 DRESSING - LOWER BODY - STEP 1: Does the patient require help from a person or device, or need extra time when dressing below the [address]? Yes. DRESSING - LOWER BODY - STEP 2: Does the patient require the assistance of a helper? Yes. DRESSING - LOWER BODY - STEP 3: Does the helper touch the patient while dressing? Yes. DRESSING - LOWER BODY - STEP 4: How many of the total steps does the patient complete on his/her own? 7 DRESSING - LOWER BODY - SCORE: 4-MIN TOILETING: TOILETING - STEP 1: Does the patient require the assistance of a person or device, or need extra time with toileting? Yes . TOILETING - STEP 2: Does the patient require the assistance of a helper? Yes. TOILETING - STEP 3: How much assistance does the patient require from the helper? Only supervision TOILETING - SCORE: 5-SUP BLADDER MANAGEMENT: Activity did not occur on this shift BLADDER MANAGEMENT - SCORE: 7-IND BOWEL MANAGEMENT: Activity did not occur on this shift BOWEL MANAGEMENT - SCORE: 7-IND TRANSFERS: BED, CHAIR, WHEELCHAIR: TRANSFERS: BED, CHAIR, WHEELCHAIR - STEP 1: Does the patient require assistance of a person or device, or need extra time with bed, chair, or whe elchair transfers? Yes. TRANSFERS: BED, CHAIR, WHEELCHAIR - STEP 2: Does the patient require the assistance of a helper? Yes. TRANSFERS: BED, CHAIR, WHEELCHAIR - STEP 3: How much assistance does the patient require from the helper? Only supervision TRANSFERS: BED, CHAIR, WHEELCHAIR - SCORE: 5-SUP TRANSFERS: TOILET: TRANSFERS: TOILET - STEP 1: Does the patient require the assistance of a person or device, or need extra time with toilet transfe rs? Yes. TRANSFERS: TOILET - STEP 2: Does the patient require the assistance of a helper? Yes. TRANSFERS: TOILET - STEP 3: How much assistance does the patient require from the helper? Only supervision, cuing, coaxing, OR he lp to set out transfer equipment or to lock brakes and/or lift foot rests TRANSFERS: TOILET - SCORE: 5-SUP TRANSFERS: SHOWER: TRANSFERS: SHOWER - STEP 1: Does the patient require the assistance of a person or device, or need extra time with shower transfe rs? Yes. TRANSFERS: SHOWER - STEP 2: Does the patient require the assistance of a helper? Yes. TRANSFERS: SHOWER - STEP 3: How much assistance does the patient require from the helper? Only incidental help such as contact gu arding or steadying during shower transfers, or help to lift one leg into the shower TRANSFERS: SHOWER - SCORE: 4-MIN TRANSFERS: TUB: Activity did not occur on this shift TRANSFERS: TUB - SCORE: 0-UNK LOCOMOTION: WALK: Activity did not occur on this shift LOCOMOTION: WALK - SCORE: 0-UNK LOCOMOTION: WHEELCHAIR: Activity did not occur on this shift LOCOMOTION: WHEELCHAIR - SCORE: 0-UNK LOCOMOTION: STAIRS: Activity did not occur on this shift LOCOMOTION: STAIRS - SCORE: 0-UNK COMPREHENSION: COMPREHENSION: TYPE: Both COMPREHENSION - STEP 1: Does the patient require help from a person or device, or need extra time to understand complex and a bstract ideas (such as current events, finances, discharge planning, medical issues, relationships, e tc)? No. COMPREHENSION - STEP 2: Does the patient need extra time, require an assistive device (such as glasses for visual comprehensi on or a hearing aid for auditory comprehension) or does s/he have mild difficulty understanding compl ex and abstract information? Yes. COMPREHENSION - SCORE: 6-ABBEY EXPRESSION EXPRESSION: TYPE: Both EXPRESSION - STEP 1: Does the patient require help from a person or device, or need extra time expressing complex and abst ract ideas (such as current events, finances, discharge planning, medical issues, relationships, etc) ? No. EXPRESSION - STEP 2: Does the patient need extra time, require an assistive device (such as augmentive communication syste m or a communication board), OR does s/he have mild difficulty expressing complex and abstract ideas (including mild dysarthria or mild word-find problems)? No. EXPRESSION - SCORE: 7-IND SOCIAL INTERACTION: SOCIAL INTERACTION - STEP 1: Does the patient require a helper to interact with others in social and therapeutic situations? No. SOCIAL INTERACTION - STEP 2: Does the patient need extra time in social situations, OR does s/he interact with staff, other patien ts, and family members ONLY in structured environments, OR does s/he require medication for social in teraction? No. SOCIAL INTERACTION - SCORE: 7-IND PROBLEM SOLVING: PROBLEM SOLVING - STEP 1: Does the patient need help from a person or device, or need extra time to solve complex problems such as managing a checking account or confronting interpersonal problems? Yes. PROBLEM SOLVING - STEP 2: Does the patient solve basic routine problems half or more of the time? Yes. PROBLEM SOLVING - STEP 3: How often does the patient need help to solve basic routine problems? Less than 10% of the time PROBLEM SOLVING - SCORE: 5-SUP MEMORY: MEMORY - STEP 1: Does the patient need help from a person or device, or need extra time to remember frequently encount ered people, daily routines, and executing requests? Yes. MEMORY - STEP 2: How often does the patient need help to remember frequently encountered people, daily routines, and e xecuting requests? Less than 10% of the time MEMORY - SCORE: 5-SUP SIGNATURE PANEL: The following modified sections: Eating - Score, Grooming - Score, Bathing - Score, Dressing - Upper Body - Score, Dressing - Lower Body - Score, Toileting - Score, Transfers: Bed, Chair, Wheelchair - S core, Transfers: Toilet - Score, Transfers: Shower - Score, Transfers: Tub - Score, Comprehension - S core, Expression - Score, Social Interaction - Score, Problem Solving - Score, Memory - Score were [e lectronically] signed by Clover Miller OT on FriMar 05 2019 13:06:35 T-0500 ([facility])
--- NOTE | 2019-03-05 14:56 | FAST ---
ENCOUNTER DATE AND TIME: 03/04/2019 08:00 (CDT) NAME MARCEL ZAZUETA DATE OF : 1935 DATE OF ADMISSION: 03/02/2019 16:50 (CDT) PHONE: AGE: 83 SSN# [id number] GENDER: Female ENCOUNTER PHYSICIAN: Dr. Jassi Gamboa M.D. ADMISSION DIAGNOSIS: - Medically Complex Conditions 17 - Circulatory Disorders (17.4) Peripheral arterial disease. EATING: Activity did not occur on this shift EATING - SCORE: 0-UNK GROOMING: Activity did not occur on this shift GROOMING - SCORE: 0-UNK BATHING: Activity did not occur on this shift BATHING - SCORE: 0-UNK DRESSING - UPPER BODY: Activity did not occur on this shift Patient is not dressing in public clothing ARTICLES SCORE Total number of steps: 0 DRESSING - UPPER BODY - SCORE: 0-UNK DRESSING - LOWER BODY: Activity did not occur on this shift Patient is not dressing in public clothing ARTICLES SCORE Total number of steps: 0 DRESSING - LOWER BODY - SCORE: 0-UNK TOILETING: Activity did not occur on this shift TOILETING - SCORE: 0-UNK BLADDER MANAGEMENT: Activity did not occur on this shift BLADDER MANAGEMENT - SCORE: 7-IND BOWEL MANAGEMENT: Activity did not occur on this shift BOWEL MANAGEMENT - SCORE: 7-IND TRANSFERS: BED, CHAIR, WHEELCHAIR: TRANSFERS: BED, CHAIR, WHEELCHAIR - STEP 1: Does the patient require assistance of a person or device, or need extra time with bed, chair, or whe elchair transfers? Yes. TRANSFERS: BED, CHAIR, WHEELCHAIR - STEP 2: Does the patient require the assistance of a helper? Yes. TRANSFERS: BED, CHAIR, WHEELCHAIR - STEP 3: How much assistance does the patient require from the helper? Steadying/guiding assistance TRANSFERS: BED, CHAIR, WHEELCHAIR - SCORE: 4-MIN TRANSFERS: TOILET: Activity did not occur on this shift TRANSFERS: TOILET - SCORE: 0-UNK TRANSFERS: SHOWER: Activity did not occur on this shift TRANSFERS: SHOWER - SCORE: 0-UNK TRANSFERS: TUB: Activity did not occur on this shift TRANSFERS: TUB - SCORE: 0-UNK LOCOMOTION: WALK: LOCOMOTION: WALK - STEP 1: Does the patient need help from a person or device, or need extra time to walk 150 feet? Yes. LOCOMOTION: WALK - STEP 2: How much assistance does the patient require to walk a minimum of 150 feet? Only supervision, cuing, or coaxing LOCOMOTION: WALK - SCORE: 5-SUP LOCOMOTION: WHEELCHAIR: LOCOMOTION: WHEELCHAIR - STEP 1: Does the patient need help to go 150 feet in a wheelchair? Yes. LOCOMOTION: WHEELCHAIR - STEP 2: How much assistance does the patient need from the helper? Only supervision, cuing, or coaxing LOCOMOTION: WHEELCHAIR - SCORE: 5-SUP LOCOMOTION: STAIRS: LOCOMOTION: STAIRS - STEP 1: Does the patient need help to go up and down 12 to 14 stairs? Yes. LOCOMOTION: STAIRS - STEP 2: How much assistance does the patient need from the helper to go a minimum of 12 to 14 stairs? The pat ient goes less than 12 stairs, but at least 4 stairs LOCOMOTION: STAIRS - SCORE: 2-MAX COMPREHENSION: COMPREHENSION - SCORE: 0-UNK EXPRESSION EXPRESSION - SCORE: 0-UNK SOCIAL INTERACTION: SOCIAL INTERACTION - SCORE: 0-UNK PROBLEM SOLVING: PROBLEM SOLVING - SCORE: 0-UNK MEMORY: MEMORY - SCORE: 0-UNK SIGNATURE PANEL: The following modified sections: Transfers: Bed, Chair, Wheelchair - Score, Transfers: Toilet - Score , Locomotion: Walk - Score, Locomotion: Wheelchair - Score, Locomotion: Stairs - Score were [patrica sibley] signed by Dewey Dick PTA on FriMar 05 2019 14:55:14 T-0500 ([employer] Daylight [facility])
--- NOTE | 2019-03-05 14:59 | FAST ---
ENCOUNTER DATE AND TIME: 03/05/2019 08:00 (CDT) NAME MARCEL ZAZUETA DATE OF : 1935 DATE OF ADMISSION: 03/02/2019 16:50 (CDT) PHONE: AGE: 83 SSN# [id number] GENDER: Female ENCOUNTER PHYSICIAN: Dr. Jassi Gamboa M.D. ADMISSION DIAGNOSIS: - Medically Complex Conditions 17 - Circulatory Disorders (17.4) Peripheral arterial disease. EATING: Activity did not occur on this shift EATING - SCORE: 0-UNK GROOMING: Activity did not occur on this shift GROOMING - SCORE: 0-UNK BATHING: Activity did not occur on this shift BATHING - SCORE: 0-UNK DRESSING - UPPER BODY: Activity did not occur on this shift Patient is not dressing in public clothing ARTICLES SCORE Total number of steps: 0 DRESSING - UPPER BODY - SCORE: 0-UNK DRESSING - LOWER BODY: Activity did not occur on this shift Patient is not dressing in public clothing ARTICLES SCORE Total number of steps: 0 DRESSING - LOWER BODY - SCORE: 0-UNK TOILETING: Activity did not occur on this shift TOILETING - SCORE: 0-UNK BLADDER MANAGEMENT: Activity did not occur on this shift BLADDER MANAGEMENT - SCORE: 7-IND BOWEL MANAGEMENT: Activity did not occur on this shift BOWEL MANAGEMENT - SCORE: 7-IND TRANSFERS: BED, CHAIR, WHEELCHAIR: TRANSFERS: BED, CHAIR, WHEELCHAIR - STEP 1: Does the patient require assistance of a person or device, or need extra time with bed, chair, or whe elchair transfers? Yes. TRANSFERS: BED, CHAIR, WHEELCHAIR - STEP 2: Does the patient require the assistance of a helper? Yes. TRANSFERS: BED, CHAIR, WHEELCHAIR - STEP 3: How much assistance does the patient require from the helper? Steadying/guiding assistance TRANSFERS: BED, CHAIR, WHEELCHAIR - SCORE: 4-MIN TRANSFERS: TOILET: Activity did not occur on this shift TRANSFERS: TOILET - SCORE: 0-UNK TRANSFERS: SHOWER: Activity did not occur on this shift TRANSFERS: SHOWER - SCORE: 0-UNK TRANSFERS: TUB: Activity did not occur on this shift TRANSFERS: TUB - SCORE: 0-UNK LOCOMOTION: WALK: LOCOMOTION: WALK - STEP 1: Does the patient need help from a person or device, or need extra time to walk 150 feet? Yes. LOCOMOTION: WALK - STEP 2: How much assistance does the patient require to walk a minimum of 150 feet? Only supervision, cuing, or coaxing LOCOMOTION: WALK - SCORE: 5-SUP LOCOMOTION: WHEELCHAIR: LOCOMOTION: WHEELCHAIR - STEP 1: Does the patient need help to go 150 feet in a wheelchair? Yes. LOCOMOTION: WHEELCHAIR - STEP 2: How much assistance does the patient need from the helper? Only supervision, cuing, or coaxing LOCOMOTION: WHEELCHAIR - SCORE: 5-SUP LOCOMOTION: STAIRS: Activity did not occur on this shift LOCOMOTION: STAIRS - SCORE: 0-UNK COMPREHENSION: COMPREHENSION - SCORE: 0-UNK EXPRESSION EXPRESSION - SCORE: 0-UNK SOCIAL INTERACTION: SOCIAL INTERACTION - SCORE: 0-UNK PROBLEM SOLVING: PROBLEM SOLVING - SCORE: 0-UNK MEMORY: MEMORY - SCORE: 0-UNK SIGNATURE PANEL: The following modified sections: Transfers: Bed, Chair, Wheelchair - Score, Transfers: Toilet - Score , Locomotion: Walk - Score, Locomotion: Wheelchair - Score, Locomotion: Stairs - Score were [patrica sibley] signed by Dewey Dick PTA on FriMar 05 2019 14:59:09 T-0500 ([employer] Daylight [facility])
--- NOTE | 2019-03-05 15:44 | P.PN ---
Subjective Date of Service: 03/05/19 Chief Complaint: WEAKNESS AFTER THROMBECTOMY Subjective: Improving STABLE. NO PAIN. SHE HAS NONEW COMPLAINTS. SHE HAS WALKED ALREADY FOR LAST TWO DAYS. SHE IS DOING GREAT. RECOVERING WELL. Review of Systems 10-point ROS is otherwise unremarkable Physical Examination - Vital Signs Temperature: 97.1 F Blood Pressure: 154/59 Pulse: 75 Respirations: 16 Pulse Ox (%): 95 - Physical Exam General: Mild distress HEENT: Atraumatic, PERRLA, EOMI Neck: Supple, JVD not distended Respiratory: Clear to auscultation bilaterally, Normal air movement Cardiovascular: Regular rate/rhythm, Normal S1 S2 Gastrointestinal: Normal bowel sounds, No tenderness Musculoskeletal: No tenderness Integumentary: No rashes Neurological: Normal speech, Normal tone, Normal affect Lymphatics: No axilla or inguinal lymphadenopathy - Studies Microbiology Data (last 24 hrs): 03/03/19 01:00 Catheterized Urine [place] Count - Final Medications List Reviewed: Yes Assessment And Plan - Current Problems (Diagnosis) (1) General weakness Current Visit: Yes Status: Acute Plan: SINCE SURGERY. CONTINUE PT. WEAK, GEN. STABLE. PT DAILY. GETTING BETTER. WALKING WELL NOW. (2) Thromboembolism of lower extremity artery Current Visit: Yes Status: Acute Plan: RECOVERING. NOW THE L LEG HAS GOOD NORMAL TEMPERATURE. (3) UTI (urinary tract infection) Current Visit: Yes Status: Acute Plan: FROM [facility]. ALREADY TREATED. SHOULD REPEAT UA TO DC ABX. UA NEG WHEN DONE SPECICATH. ABX STOPPED. (4) CAD (coronary artery disease) Current Visit: No Status: Acute (5) Chronic renal disease Onset Date: 05/11/15 Current Visit: No Status: Acute (6) History of femoropopliteal bypass Current Visit: No Status: Acute (7) Encounter for medication review Current Visit: Yes Status: Acute Plan: I REVIEWED MEDICATIONS. TRIED TO CONSOLIDATE. SHE IS ON MULTIPLE MEDS FOR MULTIPLE ISSUES. HTN, CHF, PVD, EMBOLISM, DEPRESION, ANXIETY, DJD. ETC.
[2019-03-05] MEDS: FORMULATION-R RECTAL 30GM PR SCH (19:25)
[2019-03-05] MEDS: TAMSULOSIN 0.4 MG SR CAP PO SCH (20:57)
[2019-03-05] MEDS: ATORVASTATIN 80 MG TAB PO SCH (20:58)
--- NOTE | 2019-03-06 02:33 | FAST ---
SHIFT START DATE/TIME: 03/05/2019 19:00 (CDT) SHIFT END DATE/TIME: 03/06/2019 07:00 (CDT) NAME MARCEL ZAZUETA DATE OF : 1935 DATE OF ADMISSION: 03/02/2019 16:50 (CDT) PHONE: AGE: 83 N# [id number] GENDER: Female ENCOUNTER PHYSICIAN: Dr. Jassi Gamboa M.D. ADMISSION DIAGNOSIS: - Medically Complex Conditions 17 - Circulatory Disorders (17.4) Peripheral arterial disease. EATING: Activity did not occur on this shift EATING - SCORE: 0-UNK GROOMING: Activity did not occur on this shift GROOMING - SCORE: 0-UNK BATHING: Activity did not occur on this shift BATHING - SCORE: 0-UNK DRESSING - UPPER BODY: Patient is not dressing in public clothing ARTICLES SCORE Total number of steps: 0 DRESSING - UPPER BODY - SCORE: 0-UNK DRESSING - LOWER BODY: Patient is not dressing in public clothing ARTICLES SCORE Total number of steps: 0 DRESSING - LOWER BODY - SCORE: 0-UNK TOILETING: TOILETING - STEP 1: Does the patient require the assistance of a person or device, or need extra time with toileting? Yes . TOILETING - STEP 2: Does the patient require the assistance of a helper? Yes. TOILETING - STEP 3: How much assistance does the patient require from the helper? Hands-on assistance from the helper TOILETING - STEP 4: Of the 3 tasks: 1) Adjusting clothing prior to use, 2) Cleansing of perineal area, 3) Adjusting clot yessica after use; How many tasks does the patient perform WITHOUT assistance of the helper? Two tasks TOILETING - SCORE: 3-MOD BLADDER MANAGEMENT: BLADDER MANAGEMENT - STEP 1: Does the patient control the bladder completely and intentionally without equipment or devices or med ications, and is always continent? No. BLADDER MANAGEMENT - STEP 2: Does the patient require the assistance of a helper? Yes. BLADDER MANAGEMENT - STEP 3: How much assistance does the patient require from the helper? Only set-up of equipment - such as plac ing it within reach of the patient or emptying a device - to maintain either satisfactory voiding pat tern or managing an external device, such as an absorbent pad, ileal device, or catheter BLADDER MANAGEMENT - SCORE: 5-SUP BOWEL MANAGEMENT: Activity did not occur on this shift BOWEL MANAGEMENT - SCORE: 7-IND TRANSFERS: BED, CHAIR, WHEELCHAIR: TRANSFERS: BED, CHAIR, WHEELCHAIR - STEP 1: Does the patient require assistance of a person or device, or need extra time with bed, chair, or whe elchair transfers? Yes. TRANSFERS: BED, CHAIR, WHEELCHAIR - STEP 2: Does the patient require the assistance of a helper? Yes. TRANSFERS: BED, CHAIR, WHEELCHAIR - STEP 3: How much assistance does the patient require from the helper? Steadying/guiding assistance TRANSFERS: BED, CHAIR, WHEELCHAIR - SCORE: 4-MIN TRANSFERS: TOILET: TRANSFERS: TOILET - STEP 1: Does the patient require the assistance of a person or device, or need extra time with toilet transfe rs? Yes. TRANSFERS: TOILET - STEP 2: Does the patient require the assistance of a helper? Yes. TRANSFERS: TOILET - STEP 3: How much assistance does the patient require from the helper? Only supervision, cuing, coaxing, OR he lp to set out transfer equipment or to lock brakes and/or lift foot rests TRANSFERS: TOILET - SCORE: 5-SUP TRANSFERS: SHOWER: Activity did not occur on this shift TRANSFERS: SHOWER - SCORE: 0-UNK TRANSFERS: TUB: Activity did not occur on this shift TRANSFERS: TUB - SCORE: 0-UNK LOCOMOTION: WALK: Activity did not occur on this shift LOCOMOTION: WALK - SCORE: 0-UNK LOCOMOTION: WHEELCHAIR: Activity did not occur on this shift LOCOMOTION: WHEELCHAIR - SCORE: 0-UNK COMPREHENSION: COMPREHENSION: TYPE: Both COMPREHENSION - STEP 1: Does the patient require help from a person or device, or need extra time to understand complex and a bstract ideas (such as current events, finances, discharge planning, medical issues, relationships, e tc)? No. COMPREHENSION - STEP 2: Does the patient need extra time, require an assistive device (such as glasses for visual comprehensi on or a hearing aid for auditory comprehension) or does s/he have mild difficulty understanding compl ex and abstract information? Yes. COMPREHENSION - SCORE: 6-ABBEY EXPRESSION EXPRESSION: TYPE: Both EXPRESSION - STEP 1: Does the patient require help from a person or device, or need extra time expressing complex and abst ract ideas (such as current events, finances, discharge planning, medical issues, relationships, etc) ? No. EXPRESSION - STEP 2: Does the patient need extra time, require an assistive device (such as augmentive communication syste m or a communication board), OR does s/he have mild difficulty expressing complex and abstract ideas (including mild dysarthria or mild word-find problems)? No. EXPRESSION - SCORE: 7-IND SOCIAL INTERACTION: SOCIAL INTERACTION - STEP 1: Does the patient require a helper to interact with others in social and therapeutic situations? No. SOCIAL INTERACTION - STEP 2: Does the patient need extra time in social situations, OR does s/he interact with staff, other patien ts, and family members ONLY in structured environments, OR does s/he require medication for social in teraction? Yes, patient needs extra time SOCIAL INTERACTION - SCORE: 6-ABBEY PROBLEM SOLVING: PROBLEM SOLVING - STEP 1: Does the patient need help from a person or device, or need extra time to solve complex problems such as managing a checking account or confronting interpersonal problems? Yes. PROBLEM SOLVING - STEP 2: Does the patient solve basic routine problems half or more of the time? Yes. PROBLEM SOLVING - STEP 3: How often does the patient need help to solve basic routine problems? Less than 10% of the time PROBLEM SOLVING - SCORE: 5-SUP MEMORY: MEMORY - STEP 1: Does the patient need help from a person or device, or need extra time to remember frequently encount ered people, daily routines, and executing requests? No. MEMORY - STEP 2: Does the patient have slight difficulty recognizing frequently encountered people, daily routines, or executing requests without the need for repetition or using self-initiated or environmental cues to remember? Yes. MEMORY - SCORE: 6-ABBEY
[2019-03-06 05:43] VITALS: BMI 23.1
[2019-03-06] MEDS: PANTOPRAZOLE 40MG TABLET PO SCH (06:12)
[2019-03-06] MEDS: LEVOTHYROXINE SOD 0.05 MG TABLET PO SCH (06:12)
[2019-03-06] MEDS: TRAMADOL HCL 50 MG TAB PO PRN (08:15)
[2019-03-06] MEDS: LIDOCAINE 5% PATCH TOP SCH (08:16)
[2019-03-06] MEDS: VITAMIN D 1000 UNIT TAB PO SCH (08:17)
[2019-03-06] MEDS: FE SULF/FA/VIT B COMP & C TAB PO SCH (08:18)
[2019-03-06] MEDS: ASPIRIN EC 81 MG TAB PO SCH (08:18)
[2019-03-06] MEDS: VALSARTAN 160 MG TAB PO SCH (08:18)
[2019-03-06] MEDS: FERROUS SULFATE 325 MG TAB PO SCH (08:18)
[2019-03-06] MEDS: RIVAROXABAN 15 MG TABLET PO SCH (08:18)
[2019-03-06] MEDS: DULOXETINE 30 MG CAP PO SCH (08:19)
[2019-03-06] MEDS: CARVEDILOL 6.25 MG TAB PO SCH ×2 (08:19→20:00)
[2019-03-06] MEDS: FUROSEMIDE 20 MG TABLET PO SCH (08:19)
[2019-03-06] MEDS: CYANOCOBALAMIN 1,000 MCG TAB PO SCH (08:19)
[2019-03-06] MEDS: GABAPENTIN 100 MG CAP PO SCH ×2 (08:19→20:59)
[2019-03-06] MEDS: SUCRALFATE 1 GM TABLET PO SCH ×4 (08:20→20:59)
[2019-03-06] MEDS: VITAMIN E 400 IU CAP PO SCH (08:20)
[2019-03-06] MEDS: MAGNESIUM OXIDE 400 MG TAB PO SCH ×2 (08:20→20:50)
[2019-03-06] MEDS: FORMULATION-R RECTAL 30GM PR SCH ×2 (08:20→20:00)
[2019-03-06] MEDS: HYDRALAZINE HCL 25 MG TABLET PO SCH ×3 (08:26→21:00)
[2019-03-06] MEDS: ONDANSETRON 4 MG (ODT) TAB PO PRN (08:48)
[2019-03-06] MEDS: AMLODIPINE 10 MG TAB PO SCH (12:11)
--- NOTE | 2019-03-06 13:46 | FAST ---
ENCOUNTER DATE AND TIME: 03/06/2019 08:00 (CDT) NAME MARCEL ZAZUETA DATE OF : 1935 DATE OF ADMISSION: 03/02/2019 16:50 (CDT) PHONE: AGE: 83 SSN# [id number] GENDER: Female ENCOUNTER PHYSICIAN: Dr. Jassi Gamboa M.D. ADMISSION DIAGNOSIS: - Medically Complex Conditions 17 - Circulatory Disorders (17.4) Peripheral arterial disease. EATING: Activity did not occur on this shift EATING - SCORE: 0-UNK GROOMING: Wash, rinse, and dry hands GROOMING - STEP 1: Does the patient require the assistance of a person or device, or need extra time when grooming? No. GROOMING - SCORE: 7-IND BATHING: Activity did not occur on this shift BATHING - SCORE: 0-UNK DRESSING - UPPER BODY: Activity did not occur on this shift ARTICLES SCORE Total number of steps: 0 DRESSING - UPPER BODY - SCORE: 0-UNK DRESSING - LOWER BODY: Activity did not occur on this shift ARTICLES SCORE Total number of steps: 0 DRESSING - LOWER BODY - SCORE: 0-UNK TOILETING: TOILETING - STEP 1: Does the patient require the assistance of a person or device, or need extra time with toileting? Yes . TOILETING - STEP 2: Does the patient require the assistance of a helper? Yes. TOILETING - STEP 3: How much assistance does the patient require from the helper? Hands-on assistance from the helper TOILETING - STEP 4: Of the 3 tasks: 1) Adjusting clothing prior to use, 2) Cleansing of perineal area, 3) Adjusting clot yessica after use; How many tasks does the patient perform WITHOUT assistance of the helper? Two tasks TOILETING - SCORE: 3-MOD BLADDER MANAGEMENT: Activity did not occur on this shift BLADDER MANAGEMENT - SCORE: 7-IND BOWEL MANAGEMENT: Activity did not occur on this shift BOWEL MANAGEMENT - SCORE: 7-IND TRANSFERS: BED, CHAIR, WHEELCHAIR: Activity did not occur on this shift TRANSFERS: BED, CHAIR, WHEELCHAIR - SCORE: 0-UNK TRANSFERS: TOILET: TRANSFERS: TOILET - STEP 1: Does the patient require the assistance of a person or device, or need extra time with toilet transfe rs? Yes. TRANSFERS: TOILET - STEP 2: Does the patient require the assistance of a helper? Yes. TRANSFERS: TOILET - STEP 3: How much assistance does the patient require from the helper? Patient performs half or more of the tr ansferring tasks TRANSFERS: TOILET - STEP 4: Does the patient need only incidental help such as contact guard or steadying during toilet transfer? No. Patient needs more than incidental help TRANSFERS: TOILET - SCORE: 3-MOD TRANSFERS: SHOWER: Activity did not occur on this shift TRANSFERS: SHOWER - SCORE: 0-UNK TRANSFERS: TUB: Activity did not occur on this shift TRANSFERS: TUB - SCORE: 0-UNK LOCOMOTION: WALK: Activity did not occur on this shift LOCOMOTION: WALK - SCORE: 0-UNK LOCOMOTION: WHEELCHAIR: Activity did not occur on this shift LOCOMOTION: WHEELCHAIR - SCORE: 0-UNK LOCOMOTION: STAIRS: Activity did not occur on this shift LOCOMOTION: STAIRS - SCORE: 0-UNK COMPREHENSION: COMPREHENSION: TYPE: Visual COMPREHENSION - STEP 1: Does the patient require help from a person or device, or need extra time to understand complex and a bstract ideas (such as current events, finances, discharge planning, medical issues, relationships, e tc)? No. COMPREHENSION - STEP 2: Does the patient need extra time, require an assistive device (such as glasses for visual comprehensi on or a hearing aid for auditory comprehension) or does s/he have mild difficulty understanding compl ex and abstract information? Yes. COMPREHENSION - SCORE: 6-ABBEY EXPRESSION EXPRESSION: TYPE: Non-Vocal EXPRESSION - STEP 1: Does the patient require help from a person or device, or need extra time expressing complex and abst ract ideas (such as current events, finances, discharge planning, medical issues, relationships, etc) ? No. EXPRESSION - STEP 2: Does the patient need extra time, require an assistive device (such as augmentive communication syste m or a communication board), OR does s/he have mild difficulty expressing complex and abstract ideas (including mild dysarthria or mild word-find problems)? No. EXPRESSION - SCORE: 7-IND SOCIAL INTERACTION: SOCIAL INTERACTION - STEP 1: Does the patient require a helper to interact with others in social and therapeutic situations? No. SOCIAL INTERACTION - STEP 2: Does the patient need extra time in social situations, OR does s/he interact with staff, other patien ts, and family members ONLY in structured environments, OR does s/he require medication for social in teraction? No. SOCIAL INTERACTION - SCORE: 7-IND PROBLEM SOLVING: PROBLEM SOLVING - STEP 1: Does the patient need help from a person or device, or need extra time to solve complex problems such as managing a checking account or confronting interpersonal problems? No. PROBLEM SOLVING - STEP 2: Does the patient require extra time to make decisions or solve problems, OR does s/he have slight dif ficulty reading, initiating, or self-correcting in unfamiliar situations? No. PROBLEM SOLVING - SCORE: 7-IND MEMORY: MEMORY - STEP 1: Does the patient need help from a person or device, or need extra time to remember frequently encount ered people, daily routines, and executing requests? No. MEMORY - STEP 2: Does the patient have slight difficulty recognizing frequently encountered people, daily routines, or executing requests without the need for repetition or using self-initiated or environmental cues to remember? No. MEMORY - SCORE: 7-IND SIGNATURE PANEL: The following modified sections: Eating - Score, Grooming - Score, Bathing - Score, Dressing - Upper Body - Score, Dressing - Lower Body - Score, Toileting - Score, Transfers: Bed, Chair, Wheelchair - S core, Transfers: Toilet - Score, Transfers: Shower - Score, Transfers: Tub - Score, Comprehension - S core, Expression - Score, Social Interaction - Score, Problem Solving - Score, Memory - Score were [e lectronically] signed by RONAN Regalado on Sat Mar 06 2019 13:45:04 [facility]00 ([facility])
--- NOTE | 2019-03-06 16:50 | PN ---
Subjective: Patient is feeling lot better. She is able to walk, but she is weak today. She had diarrhea. Objective: Chest: Clear. Heart: Regular, no MRG. Abdomen: No guarding, no rebound, no rigidity. Vital Signs: Blood pressure 138/63, pulse is 72. Laboratory Data: She is getting twice a week lab at this point. Assessment And Plan: 1. 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 Currently, she is stable. Continue OT and PT. 2. Multiple medical problems, peripheral vascular disease, diabetes, high blood pressure, peripheral vascular disease, atrial fibrillation, chronic pain, degenerative joint disease. 3. Current medications reviewed and continued. Prognosis overall fair. DWIGHT/OZZY Voice ID: [id number] Report ID: [id number] JANNET
[2019-03-06] MEDS ORDERED: CARVEDILOL 6.25 MG TAB PO SCH (20:18)
[2019-03-06] MEDS: ATORVASTATIN 80 MG TAB PO SCH (20:59)
[2019-03-06] MEDS: TAMSULOSIN 0.4 MG SR CAP PO SCH (20:59)
[2019-03-06] MEDS: MELATONIN 3 MG TABLET PO PRN (20:59)
[2019-03-06 22:34] LABS: Hematocrit 19.9 % (36.0-45.0)
[2019-03-06] MEDS ORDERED: NA CHLORIDE 0.9% 250 ML IV SCH (23:00)
[2019-03-07] MEDS: TRAMADOL HCL 50 MG TAB PO PRN (00:41)
--- NOTE | 2019-03-07 00:48 | FAST ---
SHIFT START DATE/TIME: 03/06/2019 19:00 (CDT) SHIFT END DATE/TIME: 03/07/2019 07:00 (CDT) NAME MARCEL ZAZUETA DATE OF : 1935 DATE OF ADMISSION: 03/02/2019 16:50 (CDT) PHONE: AGE: 83 N# [id number] GENDER: Female ENCOUNTER PHYSICIAN: Dr. Jassi Gamboa M.D. ADMISSION DIAGNOSIS: - Medically Complex Conditions 17 - Circulatory Disorders (17.4) Peripheral arterial disease. EATING: Activity did not occur on this shift EATING - SCORE: 0-UNK GROOMING: Wash, rinse, and dry hands GROOMING - STEP 1: Does the patient require the assistance of a person or device, or need extra time when grooming? Yes. GROOMING - STEP 2: Does the patient require the assistance of a helper? No. The patient only requires an assistive devic e, OR takes more than reasonable time to groom, OR there is a concern for safety as the patient groom s GROOMING - SCORE: 6-ABBEY BATHING: Activity did not occur on this shift BATHING - SCORE: 0-UNK DRESSING - UPPER BODY: Patient is not dressing in public clothing ARTICLES SCORE Total number of steps: 0 DRESSING - UPPER BODY - SCORE: 0-UNK DRESSING - LOWER BODY: Patient is not dressing in public clothing ARTICLES SCORE Total number of steps: 0 DRESSING - LOWER BODY - SCORE: 0-UNK TOILETING: TOILETING - STEP 1: Does the patient require the assistance of a person or device, or need extra time with toileting? Yes . TOILETING - STEP 2: Does the patient require the assistance of a helper? Yes. TOILETING - STEP 3: How much assistance does the patient require from the helper? Hands-on assistance from the helper TOILETING - STEP 4: Of the 3 tasks: 1) Adjusting clothing prior to use, 2) Cleansing of perineal area, 3) Adjusting clot yessica after use; How many tasks does the patient perform WITHOUT assistance of the helper? No tasks; h bety performs all three tasks TOILETING - SCORE: 1-DEP BLADDER MANAGEMENT: BLADDER MANAGEMENT - STEP 1: Does the patient control the bladder completely and intentionally without equipment or devices or med ications, and is always continent? No. BLADDER MANAGEMENT - STEP 2: Does the patient require the assistance of a helper? Yes. BLADDER MANAGEMENT - STEP 3: How much assistance does the patient require from the helper? Only set-up of equipment - such as plac ing it within reach of the patient or emptying a device - to maintain either satisfactory voiding pat tern or managing an external device, such as an absorbent pad, ileal device, or catheter BLADDER MANAGEMENT - SCORE: 5-SUP BOWEL MANAGEMENT: [place] removes incontinent device (depends, pull ups, etc.); cleans the patient after accident / inco ntinent episode; and, applies new device (depends, pull-ups, padding, etc.). BOWEL MANAGEMENT - SCORE: 1-DEP BOWEL MANAGEMENT - FREQUENCY OF ACCIDENTS: BOWEL MANAGEMENT(FA) - STEP 1: How many accidents has the patient had during the current shift? 1 TRANSFERS: BED, CHAIR, WHEELCHAIR: TRANSFERS: BED, CHAIR, WHEELCHAIR - STEP 1: Does the patient require assistance of a person or device, or need extra time with bed, chair, or whe elchair transfers? Yes. TRANSFERS: BED, CHAIR, WHEELCHAIR - STEP 2: Does the patient require the assistance of a helper? Yes. TRANSFERS: BED, CHAIR, WHEELCHAIR - STEP 3: How much assistance does the patient require from the helper? Steadying/guiding assistance TRANSFERS: BED, CHAIR, WHEELCHAIR - SCORE: 4-MIN TRANSFERS: TOILET: TRANSFERS: TOILET - STEP 1: Does the patient require the assistance of a person or device, or need extra time with toilet transfe rs? Yes. TRANSFERS: TOILET - STEP 2: Does the patient require the assistance of a helper? Yes. TRANSFERS: TOILET - STEP 3: How much assistance does the patient require from the helper? Only supervision, cuing, coaxing, OR he lp to set out transfer equipment or to lock brakes and/or lift foot rests TRANSFERS: TOILET - SCORE: 5-SUP TRANSFERS: SHOWER: Activity did not occur on this shift TRANSFERS: SHOWER - SCORE: 0-UNK TRANSFERS: TUB: Activity did not occur on this shift TRANSFERS: TUB - SCORE: 0-UNK LOCOMOTION: WALK: Activity did not occur on this shift LOCOMOTION: WALK - SCORE: 0-UNK LOCOMOTION: WHEELCHAIR: Activity did not occur on this shift LOCOMOTION: WHEELCHAIR - SCORE: 0-UNK COMPREHENSION: COMPREHENSION: TYPE: Both COMPREHENSION - STEP 1: Does the patient require help from a person or device, or need extra time to understand complex and a bstract ideas (such as current events, finances, discharge planning, medical issues, relationships, e tc)? No. COMPREHENSION - STEP 2: Does the patient need extra time, require an assistive device (such as glasses for visual comprehensi on or a hearing aid for auditory comprehension) or does s/he have mild difficulty understanding compl ex and abstract information? Yes. COMPREHENSION - SCORE: 6-ABBEY EXPRESSION EXPRESSION: TYPE: Both EXPRESSION - STEP 1: Does the patient require help from a person or device, or need extra time expressing complex and abst ract ideas (such as current events, finances, discharge planning, medical issues, relationships, etc) ? No. EXPRESSION - STEP 2: Does the patient need extra time, require an assistive device (such as augmentive communication syste m or a communication board), OR does s/he have mild difficulty expressing complex and abstract ideas (including mild dysarthria or mild word-find problems)? No. EXPRESSION - SCORE: 7-IND SOCIAL INTERACTION: SOCIAL INTERACTION - STEP 1: Does the patient require a helper to interact with others in social and therapeutic situations? No. SOCIAL INTERACTION - STEP 2: Does the patient need extra time in social situations, OR does s/he interact with staff, other patien ts, and family members ONLY in structured environments, OR does s/he require medication for social in teraction? Yes, patient needs extra time SOCIAL INTERACTION - SCORE: 6-ABBEY PROBLEM SOLVING: PROBLEM SOLVING - STEP 1: Does the patient need help from a person or device, or need extra time to solve complex problems such as managing a checking account or confronting interpersonal problems? Yes. PROBLEM SOLVING - STEP 2: Does the patient solve basic routine problems half or more of the time? Yes. PROBLEM SOLVING - STEP 3: How often does the patient need help to solve basic routine problems? Less than 10% of the time PROBLEM SOLVING - SCORE: 5-SUP MEMORY: MEMORY - STEP 1: Does the patient need help from a person or device, or need extra time to remember frequently encount ered people, daily routines, and executing requests? No. MEMORY - STEP 2: Does the patient have slight difficulty recognizing frequently encountered people, daily routines, or executing requests without the need for repetition or using self-initiated or environmental cues to remember? Yes. MEMORY - SCORE: 6-ABBEY SIGNATURE PANEL: The following modified sections: Eating - Score, Grooming - Score, Dressing - Upper Body - Score, Moo ssing - Lower Body - Score, Toileting - Score, Bladder Management - Score, Bowel Management - Score, Transfers: Bed, Chair, Wheelchair - Score, Transfers: Toilet - Score, Transfers: Shower - Score, [place] sfers: Tub - Score, Locomotion: Walk - Score, Locomotion: Wheelchair - Score, Comprehension - Score, Expression - Score, Social Interaction - Score, Problem Solving - Score, Memory - Score were [electro nically] signed by Flakita Neely CNA on Sun Mar 07 2019 00:46:40 GMT-0500 (Central Daylight Time)
[2019-03-07 01:38] VITALS: TEMP 98
[2019-03-07 01:39] VITALS: BP 109/49
[2019-03-07] MEDS ORDERED: NA CHLORIDE 0.9% 1,000 ML ONE (01:42)
[2019-03-07] MEDS ORDERED: NA CHLORIDE 0.9% 1,000 ML IV SCH (02:00)
== END 2019-03-07 02:37 | disposition short-term general hospital (02) | DRG 300 ==
LOC: 5TH 03-02 16:50 → 3RD-ICU 03-07 02:23 → 5TH 03-07 02:23
PROVIDERS: ADMIT Psychiatry & Neurology Neurology with Special Qualifications in Child Neurology; ATTEND Psychiatry & Neurology Neurology with Special Qualifications in Child Neurology
DX: I73.9 Peripheral vascular disease, unspecified (principal); I74.3 Embolism and thrombosis of arteries of the lower extremities; D62 Acute posthemorrhagic anemia; N39.0 Urinary tract infection, site not specified; R53.1 Weakness; I12.9 Hypertensive chronic kidney disease with stage 1 through stage 4 chronic kidney disease, or unspecified chronic kidney disease; N18.3 Chronic kidney disease, stage 3 (moderate); E78.00 Pure hypercholesterolemia, unspecified; I25.10 Atherosclerotic heart disease of native coronary artery without angina pectoris; I25.2 Old myocardial infarction
CPT/HCPCS: 36415; 80048; 81003; 81015; 82040; 83735; 84134; 85014; 85018; 85025; 86850; 86900; 86901; 87086; 87088; 97110; 97112; 97116; 97161; 97530; 97542; J7030

== ENCOUNTER 2019-03-07 02:42 | Inpatient (IN) | payer OTHER, MEDICARE ==
--- OUTSIDE RECORDS SUMMARY | 2019-03-07 02:47 | XMS REPORT | Clinical Summary ---
:1935 Author Organization [facility] Address [address] [place] [address] Care Team Providers Name Role Phone Asked, [...] Active (LEVAQUIN) 250 MG (250 mg total) 9 19 tablet by mouth daily for [address] 1 patch on 30 patch 0 03/31/20 Active (LIDODERM) 5 % the skin daily 9 for 30 days. Remove & Discard patch within 12 hours or as directed by nitroglycerin Place 1 tablet 90 tablet 12 03/31/20 Active (NITROSTAT) 0.4 MG (0.4 mg total) 9 SL tablet under the tongue every 5 [...] daily. 19 (Stop Taking at tablet Discharge) loperamide Take 1 capsule 0 03/06/20 (IMODIUM) 2 mg (2 mg total) by 9 19 capsule mouth 4 (four) times a day as needed for diarrhea for up to 5 days. 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 02/05/2019 Overview: Added automatically from request for surgery [id number] Encounters Date Type Specialty Care Team Description 02/12/2019 Surgery Gastroenterology Duchini, PUSH ENTEROSCOPY MD Dwayne with biopsies,ablation(AP C) 02/12/2019 Anesthesia Event Gastroenterology Jaelyn Deleon MD 02/12/2019 Orders Only Cardiovascular [place], PAD (peripheral Ingrid, RN artery disease) (HCC) (Primary Dx) 02/11/2019 Anesthesia Event Gastroenterology Gerry Kendall MD Crawley, Teri, DOUGH SHEETER 02/11/2019 Surgery Gastroenterology Jose, Canceled MD Dwayne ENTEROSCOPY, SINGLE BALLOON, TRANSORAL, USING OVERTUBE 02/06/2019 Surgery Cardiothoracic Surgery Rita Arteaga MD Left common femoral endarterectomy and thrombectomy. 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, unspecified vessel or lesion type (HCC) 03/02/2019 MD Pamela Mehta James F., MD 02/05/2019 Intake Access N/A after 03/06/2018 Social History Tobacco Use Types Packs/Day Years [...] 03/25/2019 Appointment Procedural Cardiology Rita Arteaga MD [address] [facility] [address] [place] [address] 03/25/2019 Office Visit Cardiovascular Rita Arteaga MD [address] [facility] [address] [place] [address] Health Maintenance Due Date Last Done Comments SHINGLES VACCINES (#1) 1987 65+ PNEUMOCOCCAL VACCINE (1 of 2 - PCV13) 2002 INFLUENZA VACCINE 01/21/2019 Implants Implanted Type Area Vice President Sales Device Shelf Model / Identifier Expiration Serial / Date Lot Clip Ligtng Weck Hemoclip Plus W/ Tape Ti Sm Strngpnt - [id number] Medical N/ A: N/A WECK CLOSURE [id number] / Implanted: 02/06/2019 at [facility] (Quantity not on file) Clips for SYSTEMS / Internal Use Clip Ligtng Weck Hemoclip Plus W/ Tape Ti Med - [id number] Medical N/A: N/A TELEFLEX MEDICAL [id number] / Implanted: 02/06/2019 at [facility] (Quantity not on file) Clips for / Internal Use Patch Vasclr Perph 0.8x8cm Vascu-Guard - [id number] Vascular Left: MAIER 07/30/2023 [id number] / Implanted: Qty: 1 on 02/06/2019 by Rita Arteaga MD at [facility] Graft Groin BIOSCIENCE / [id number] Procedures Procedure Name Priority Date/Time Associated Comments [...] 10:54 Coronary artery AM CDT disease involving sleetmute heart with angina pectoris, unspecified vessel or [...] on US exam. R axillary 20G placed UT AN ELECTIVE ENDOTRACHEAL AIRWAY Routine 02/06/2019 6:55 [...] (CPK) STAT 02/06/2019 3:51 AM CDT after 03/06/2018 Results Manual differential (03/02/2019 5:40 AM CDT)Only the most recent of2 resultswithin the time period is included. Manual differential PERFORMED [facility] Neutrophils 73.0 (H) 39.0 - 69.0 % [facility] Lymphocytes 15.0 (L) 25.0 - 45.0 % [facility] Monocytes 10.0 0.0 - 10.0 % [facility] Eosinophils 2.0 0.0 - 5.0 % [facility] Basophils 0.0 0.0 - 1.0 % [facility] Metamyelocytes 0 % [facility] Promyelocytes 0 % [facility] Platelet slide review Brenda adequate [facility] Anisocytosis Moderate [facility] Polychromasia Moderate [facility] Ovalocytes Moderate [facility] Specimen Performing Organization Address City/State/Zipcode Phone Number [facility] DEPARTMENT OF PATHOLOGY AND [address] [place] [address] GENOMIC MEDICINE [address] [address] CBC with platelet and differential (03/02/2019 5:40 AM CDT)Only the most recent of24 resultswithin the time period is included. WBC 4.86 4.50 - 11.00 k/uL [facility] RBC 2.92 (L) 4.20 - 5.50 m/uL [facility] HGB 8.8 (L) 12.0 - 16.0 g/dL [facility] HCT 28.7 (L) 37.0 - 47.0 % [facility] MCV 98.3 82.0 - 100.0 fL [facility] MCH 30.1 27.0 - 34.0 pg [facility] MCHC 30.7 (L) 31.0 - 37.0 g/dL [facility] RDW - SD 75.2 (H) 37.0 - 55.0 fL [facility] MPV 10.4 8.8 - 13.2 fL [facility] Platelet count 221 150 - 400 k/uL [facility] Nucleated RBC 0.00 /100 WBC [facility] Neutrophils 73.0 (H) 39.0 - 69.0 % [facility] Lymphocytes 15.0 (L) 25.0 - 45.0 % [facility] Monocytes 10.0 0.0 - 10.0 % [facility] Eosinophils 2.0 0.0 - 5.0 % [facility] Basophils 0.0 0.0 - 1.0 % [facility] Specimen Blood Performing Organization Address City/[facility] Phone Number [facility] DEPARTMENT OF PATHOLOGY AND [address] [place] [address] Estimated GFR (03/02/2019 4:00 AM CDT)Only the most recent of27 resultswithin the time period is included. [facility] Estimated GFR 39 (A) mL/min/1.73 [facility] Comment: HOSPITAL CatergoryUnitsInterpretation G1 >=90 Normal or high G2 60-89Mildly decreased [id number] to moderately decreased [id number] to severely decreased G4 15-29Severely decreased G5 <15Kidney failure The eGFR was calculated using the Chronic Kidney Disease Epidemiology Collaboration (CKD-EPI) equation. Interpretation is based on recommendations of the National Kidney Foundation-Kidney Disease Outcomes Quality Initiative (NKF-KDOQI) published in 2014. Specimen Plasma specimen Performing Organization Address City/[facility]/Zipcode Phone Number [facility] DEPARTMENT OF PATHOLOGY AND [address] [place] [address] Basic metabolic panel (03/02/2019 4:00 AM CDT)Only the most recent of24 resultswithin the time period is included. [facility] Sodium 135 135 - 148 mEq/L [facility] Potassium 3.8 3.5 - 5.0 mEq/L [facility] Chloride 98 98 - 112 mEq/L [facility] CO2 24 24 - 31 mEq/L [facility] Anion gap 13@ANIO 7 - 15 mEq/L [facility] BUN 24 (H) 8 - 23 mg/dL [facility] Creatinine 1.27 (H) 0.50 - 0.90 mg/dL [facility] Glucose 101 (H) 65 - 99 mg/dL [facility] Calcium 9.2 8.8 - 10.2 mg/dL [facility] Specimen Plasma specimen Performing Organization Address City/State/[facility] Phone Number [facility] DEPARTMENT OF PATHOLOGY AND [address] [place] [phone] [place] [address] Smear review (03/01/2019 6:20 AM CDT)Only the most recent of5 resultswithin the time period is included. Platelet slide review Brenda adequate [facility] Anisocytosis Moderate [facility] Polychromasia Moderate [facility] Ovalocytes Moderate [facility] Specimen Performing Organization Address City/[facility] Phone Number [facility] DEPARTMENT OF PATHOLOGY AND [address] [place] [phone] [place] [phone] Magnesium level (03/01/2019 4:00 AM CDT)Only the most recent of14 resultswithin the time period is included. Magnesium 1.6 1.6 - 2.4 mg/dL [facility] Specimen Plasma specimen Performing Organization Address City/[facility] Phone Number [facility] DEPARTMENT OF PATHOLOGY AND [address] [place] [phone] Osmolality, urine (02/28/2019 4:00 AM CDT)Only the most recent of2 resultswithin the time period is included. Osmolality, urine 304Comment: 50 - 1,400 [facility] double mOsm/kg HOSPITAL checked. Specimen Urine Performing Organization Address City/[facility] Phone Number [facility] DEPARTMENT OF PATHOLOGY AND [address] [place], [place] [phone] B natriuretic peptide (02/27/2019 6:20 AM CDT)Only the most recent of9 resultswithin the time period is included. BNP 748 (H) 0 - 100 pg/mL [facility] Specimen Blood Performing Organization Address City/State/Zipcode Phone Number [facility] DEPARTMENT OF PATHOLOGY AND [address] [place] [phone] [place] [phone] Gram stain (02/25/2019 6:03 AM CDT) Gram stain result Many Gram negative rods [facility] Comment: Specimen Information Specimen Source: Urine Specimen Site: Random void Specimen Urine - Random void Performing Organization Address City/[facility] Phone Number [facility] DEPARTMENT OF PATHOLOGY AND [address] [place] [address] [place] [phone] Urine culture (02/25/2019 6:03 AM CDT) Pathologist [facility] Urine culture Klebsiella pneumoniae [facility] isolate >10-5 cfu/ml [facility] The performance characteristics of this assay on this isolate were validated by the Microbiology Laboratory at [facility].This source has not been approved by the U.S. Food and Drug Administration.The results are not intended to be used as the sole means for clinical diagnosis or patient management.The Microbiology Laboratory is authorized under the clinical Laboratory Improvement Amendments of 1988 (CLIA-88) to perform high complexity testing. (A) Comment: Specimen Information Specimen Source: Urine Specimen Site: Random void Urine culture Escherichia coli [facility] isolate >10-5 cfu/ml [facility] The performance characteristics of this assay on this isolate were validated by the Microbiology Laboratory at [facility].This source has not been approved by the [...] Trimethoprim/Sulfamethoxazole KB mm: Susceptible Performing Organization Address [facility] Phone Number [facility] DEPARTMENT OF PATHOLOGY AND [address] [place] [phone] Type and screen (02/25/2019 4:45 AM CDT)Only the most recent of2 resultswithin the time period is included. ABO grouping B [facility] Rh type POS [facility] Antibody screen (gel) NEG [facility] Specimen Blood Performing Organization Address City/[facility] Phone Number [facility] DEPARTMENT OF PATHOLOGY AND [address] [place] [phone] Urinalysis, automated with microscopy (02/24/2019 9:30 PM CDT) Color, UA Straw [facility] Appearance, UA Hazy [facility] Specific gravity, UA 1.008 1.001 - 1.035 [facility] pH, UA 8.0 5.0 - 8.5 [facility] Protein, UA Negative Negative [facility] Glucose, UA Negative Negative [facility] Ketones, UA Negative Negative [facility] Bilirubin, UA Negative Negative [facility] Blood, UA Small (A) Negative [facility] Nitrite, UA Negative Negative [facility] Urobilinogen, UA <2.0 <2.0 [facility] Leukocyte esterase, Large (A) Negative [facility] Epithelial cells, UA <1 /HPF [facility] WBC, UA 161 (H) 0 - 4 /HPF [facility] RBC, UA 1 0 - 5 /HPF [facility] Bacteria, UA Moderate (A) None seen [facility] WBC clumps, UA Few (A) [facility] Yeast, UA Few (A) [facility] Yeast with None seen [facility] pseudohyphae, HOSPITAL Specimen Urine Performing Organization Address [facility] Phone Number [facility] DEPARTMENT OF PATHOLOGY AND [address] [place] [phone] Reticulocyte count (02/24/2019 4:15 AM CDT)Only the most recent of2 resultswithin the time period is included. Retic %, auto 5.2 (H) 0.5 - 2.1 % [facility] Retic absolute, 0.1370 (H) 0.0210 - 0.1155 [facility] auto m/uL HOSPITAL Specimen Blood Performing Organization Address [facility] Phone Number [facility] DEPARTMENT OF PATHOLOGY AND [address] [place] [phone] Iron level (02/24/2019 4:15 AM CDT) Iron level 78 37 - 145 ug/dL [facility] Specimen Plasma specimen Performing Organization Address [facility] Phone Number [facility] DEPARTMENT OF PATHOLOGY AND [address] [place] [phone] XR Chest 1 Vw Portable (02/22/2019 6:48 AM CDT)Only the most recent of5 resultswithin the time period is included. Specimen Narrative Performed At EXAMINATION:XR CHEST 1 VW PORTABLE [facility] CLINICAL HISTORY:cough IMPRESSION: Follow-up exam demonstrates mild congestive changes and small effusions to be stable. There are no new infiltrates. [facility]-[id number] Procedure Note Hm Interface, Radiology Results Incoming - 02/22/2019 7:14 AM CDT EXAMINATION: XR CHEST 1 VW PORTABLE CLINICAL HISTORY: cough IMPRESSION: Follow-up exam demonstrates mild congestive changes and small effusions to be stable. There are no new infiltrates. [facility]-[id number] Performing Organization Address City/[facility]/Zipcode Phone Number [facility] [address] [place] [address] Troponin (02/21/2019 1:38 AM CDT) Pathologist [facility] Troponin 0.013 0.000 - 0.040 [facility] Comment: ng/mL [facility] changed methodology effective: 10/27/2018 at 10:00 am The new method has a 99th percentile cutoff of 0.040 ng/mL Specimen Plasma specimen Performing Organization Address City/[facility] Phone Number [facility] DEPARTMENT OF PATHOLOGY AND [address] [place] [address] GENOMIC MEDICINE [facility] [address] [place] [address] ECG 12 lead (02/21/2019 1:01 AM CDT)Only the most recent of4 resultswithin the time period is included. Ventricular rate 74 [facility] Atrial rate 74 [facility] UT interval 184 [facility] QRSD interval 98 [facility] QT interval 410 [facility] QTC interval 455 [facility] P axis 1 39 [facility] QRS axis 1 21 [facility] T wave axis 144 [facility] MUSE EKG impression Normal sinus [facility] MUSE rhythm-Nonspecific T wave abnormality-Abnormal ECG-In automated comparison with ECG of 07-FEB-2019 07:38,-No significant change was found- Specimen Narrative Performed At Performing Organization Address City/[facility]/Zipcode Phone Number [facility] MUSE [address] [place] [address] POC glucose (02/20/2019 8:37 AM CDT)Only the most recent of53 resultswithin the time period is included. Pathologist [facility] POC glucose 103 (H) 65 - 99 mg/dL [facility] Comment: HOSPITAL Meter ID: [id number] Learning Disabilities Resource Teacher: Maria G Molina Specimen Performing Organization Address City/[facility] Phone Number [facility] DEPARTMENT OF PATHOLOGY AND [address] [place] [address] Hemoglobin A1c (02/19/2019 12:20 PM CDT) Pathologist [facility] Hemoglobin A1C 5.9 (H) 4.0 - 5.6 % [facility] Comment: HOSPITAL HbA1c cutoffs for diagnosing diabetes: 4.0% - 5.6%=normal 5.7% - 6.4%=increased risk for diabetes (prediabetes) >=6.5%=diabetes Goals for glycemic control (ADA 2016) < 7.0%Target for non adults with diabetes. More or less stringent targets may be appropriate for individual patients. <7.5% Target for Children and adolescents with type 1 diabetes. Specimen Blood Performing Organization Address [facility] Phone Number [facility] DEPARTMENT OF PATHOLOGY AND [address] [place] [phone] C difficile toxin (02/18/2019 2:10 PM CDT) Pathologist [facility] Clostridium No Clostridium difficle toxin present [facility] difficile toxin Comment: HOSPITAL Specimen Information Specimen Source: Stool Specimen Site: Nonpreserved Specimen Stool - Nonpreserved Performing Organization Address City/[facility] Phone Number [facility] DEPARTMENT OF PATHOLOGY AND [address] [place] [address] Sodium level (02/16/2019 4:00 PM CDT)Only the most recent of5 resultswithin the time period is included. Sodium 131 (L) 135 - 148 mEq/L [facility] Specimen Plasma specimen Performing Organization Address City/[facility]/Zipcode Phone Number [facility] DEPARTMENT OF PATHOLOGY AND [address] [place] [address], [place] [address] Thyroid stimulating hormone (02/13/2019 3:00 PM CDT)Only the most recent of2 resultswithin the time period is included. TSH 4.77 (H) 0.27 - 4.20 uIU/mL [facility] Specimen Plasma specimen Performing Organization Address City/[facility] Phone Number [facility] DEPARTMENT OF PATHOLOGY AND [address] [place] [phone] [place] [address] [place] [address] T4, free (02/13/2019 3:00 PM CDT) T4, free 0.9 0.9 - 1.7 ng/dL [facility] Specimen Plasma specimen Performing Organization Address City/[facility] Phone Number [facility] DEPARTMENT OF PATHOLOGY AND [address] [place] [address] Surgical pathology request (02/12/2019 2:28 PM CDT)Only the most recent of2 resultswithin the time period is included. [facility] DEPARTMENT OF PATHOLOGY AND GENOMIC MEDICINE Surgical pathology See link below [facility] DEPARTMENT OF report for PDF Lab PATHOLOGY AND Report GENOMIC MEDICINE Result status This is Final [facility] DEPARTMENT OF Report for PATHOLOGY AND [id number] GENOMIC MEDICINE Specimen Performing Organization Address [facility] Phone Number [facility] DEPARTMENT OF PATHOLOGY AND [address] [place] [address] GENOMIC MEDICINE CBC hemogram (02/12/2019 6:00 AM CDT)Only the most recent of2 resultswithin the time period is included. WBC 12.39 (H) 4.50 - 11.00 k/uL [facility] RBC 2.86 (L) 4.20 - 5.50 m/uL [facility] HGB 8.3 (L) 12.0 - 16.0 g/dL [facility] HCT 25.9 (L) 37.0 - 47.0 % [facility] MCV 90.6 82.0 - 100.0 fL [facility] MCH 29.0 27.0 - 34.0 pg [facility] MCHC 32.0 31.0 - 37.0 g/dL [facility] RDW - SD 55.8 (H) 37.0 - 55.0 fL [facility] MPV 10.8 8.8 - 13.2 fL [facility] Platelet count 201 150 - 400 k/uL [facility] Nucleated RBC 0.00 /100 WBC [facility] Specimen Performing Organization Address City/[facility]/Zipcode Phone Number [facility] DEPARTMENT OF PATHOLOGY AND [address] [place] [phone] Sodium level, urine, random (02/11/2019 1:20 PM CDT)Only the most recent of2 resultswithin the time period is included. Sodium, urine, random <20 mEq/L [facility] Specimen Urine Performing Organization Address [facility] Phone Number [facility] DEPARTMENT OF PATHOLOGY AND [address] [place] [address] Comprehensive metabolic panel (02/11/2019 4:00 AM CDT)Only the most recent of3 resultswithin the time period is included. Sodium 127 (L) 135 - 148 [facility] mEq/L [facility] Potassium 4.5 3.5 - 5.0 [facility] mEq/L [facility] Chloride 92 (L) 98 - 112 mEq/L [facility] CO2 24 24 - 31 mEq/L [facility] Anion gap 11@ANIO 7 - 15 mEq/L [facility] BUN 40 (H) 8 - 23 mg/dL [facility] Creatinine 1.55 (H) 0.50 - 0.90 [facility] mg/dL [facility] Glucose 123 (H) 65 - 99 mg/dL [facility] Calcium 9.1 8.8 - 10.2 [facility] mg/dL [facility] Protein 5.7 (L) 6.3 - 8.3 g/dL [facility] Comment: HOSPITAL 4.6-7.0 g/dL 1 week 4.4-7.6 g/dL 7 months-1year5.1-7.3 g/dL 1-2 years5.6-7.5 g/dL >3 years6.0-8.0 g/dL 18-150 6.3-8.3 g/dL Albumin 2.4 (L) 3.5 - 5.0 g/dL [facility] A/G ratio 0.7 0.7 - 3.8 [facility] Alkaline phosphatase 88 35 - 104 U/L [facility] AST 156 (H) 10 - 35 U/L [facility] ALT 108 (H) 5 - 50 U/L [facility] Total bilirubin 0.8 0.0 - 1.2 [facility] mg/dL HOSPITAL Specimen Plasma specimen Performing Organization Address City/[facility] Phone Number [facility] DEPARTMENT OF PATHOLOGY AND [address] [place] [address] Occult blood, stool (02/10/2019 7:08 AM CDT) Occult blood, Positive for Occult blood (A) [facility] WORTH stool Comment: HOSPITAL Specimen Information Specimen Source: Stool Specimen Site: Nonpreserved Specimen Stool - Nonpreserved Performing Organization Address [facility] Phone Number [facility] DEPARTMENT OF PATHOLOGY AND [address] [place] [address] NM GI Bleeding Study (02/09/2019 11:34 AM CDT) Specimen Narrative Performed At Procedure:NM GI BLEEDING STUDY [facility] Clinical History:anemia Technique: 4 cc of the patient's blood were removed and the RBCs labeled in vitro with 25 mCi of [id number]. The labeled blood was then reinjected into [...] blood from small bowel cannot be excluded. [facility]-[id number] Procedure Note Interface, Radiology Results Incoming - 02/09/2019 11:47 AM CDT Procedure: NM GI BLEEDING STUDY Clinical History: anemia Technique: 4 cc of the patient's blood were removed and the RBCs labeled in vitro with 25 mCi of [id number]. The labeled blood was then reinjected into [...] blood from small bowel cannot be excluded. [facility]-[id number] Performing Organization Address [facility] Phone Number [facility] [address] [place] [phone] Total iron binding capacity (02/09/2019 4:00 AM CDT) Pathologist [facility] Iron level 14 (L) 37 - 145 ug/dL [facility] Iron binding capacity 127 (L) 200 - 400 ug/dL [facility] % Saturation 11.0 (L) 15.0 - 38.0 % [facility] Specimen Plasma specimen Performing Organization Address [facility] Phone Number [facility] DEPARTMENT OF PATHOLOGY AND [address] [place] [phone] GENOMIC MEDICINE [address] [address] Saccharomyces cerevisiae Abs, IgG and IgA (02/09/2019 4:00 AM CDT) Saccharomyces 2.7 0.0 - 24.9 [facility] REF LAB cerevisiae Ab, IgG Comment: Units Performed by [facility], [address] [place] [address] [email or web address], [email or web address] MD - Lab. Director Saccharomyces 2.2 0.0 - 24.9 [facility] REF LAB cerevisiae Ab, IgA Comment: Units [...] for CD. Specimen Serum Performing Organization Address City/[facility]/Zipcode Phone Number [facility] [address] [place] [address] [place] [facility] [address] [place] [address] Anti-neutrophilic cytoplasmic Abs panel (02/09/2019 4:00 AM CDT) [facility] ANCA screen Negative Negative [facility] Specimen Blood Performing Organization Address City/State/Zipcode Phone Number [facility] DEPARTMENT OF PATHOLOGY AND [address] [place] [address] Prothrombin time with INR (02/09/2019 4:00 AM CDT)Only the most recent of3 resultswithin the time period is included. [facility] Prothrombin time 15.4 (H) 11.5 - 14.5 [facility] INR 1.2 [place] Comment: [facility] International Normalized Ratio (INR) is a therapeutic HOSPITAL monitoring tool for patients who are stable on oral anticoagulant therapy. An INR of 2.0-3.0 is suggested for deep vein thrombosis/pulmonary embolism. Specimen Blood Performing Organization Address City/[facility] Phone Number [facility] DEPARTMENT OF PATHOLOGY AND [address] [place] [phone] Serum electrophoresis (02/09/2019 4:00 AM CDT) [facility] Protein 5.2 (L) 6.3 - 8.3 [place] Comment: g/dL SCIENTOLOGIST [place] 4.6-7.0 g/dL HOSPITAL 1 week 4.4-7.6 g/dL 7 months-1year5.1-7.3 g/dL 1-2 years5.6-7.5 g/dL >3 years6.0-8.0 g/dL 18-150 6.3-8.3 g/dL [facility] albumin 3.42 (L) 4.00 - 5.30 [place] g/dL [facility] SPE alpha 1 0.26 (H) 0.10 - 0.25 [place] g/dL [facility] SPE alpha 2 0.74 0.58 - 0.84 [place] g/dL [facility] SPE beta 0.54 0.50 - 1.10 [place] g/dL [facility] SPE gamma 0.24 (L) 0.60 - 1.30 [place] g/dL [facility] SPE extended See Comment [place] interpretation Comment: SCIENTOLOGIST Total protein and albumin are decreased while the relative concentrations HOSPITAL of alpha-1 globulins and alpha-2 globulins are increased indicating an acute phase response to infection, inflammation or tissue injury. Gamma globulins are moderately decreased. SPE interpretation See CommentComment: [place] Hu Rosa MD, PhD; Kristin Hernandez, PhD; [facility] MD Ishmael Specimen Serum Performing Organization Address [facility] Phone Number [facility] DEPARTMENT OF PATHOLOGY AND [address] [place] [phone] Phosphorus level (02/09/2019 4:00 AM CDT)Only the most recent of4 resultswithin the time period is included. Phosphorus 2.9 2.4 - 4.5 mg/dL [facility] Specimen Plasma specimen Performing Organization Address [facility] Phone Number [facility] DEPARTMENT OF PATHOLOGY AND [address] [place] [phone] [address] LDH (02/09/2019 4:00 AM CDT) LDH 136 87 - 225 U/L [facility] Specimen Plasma specimen Performing Organization Address [facility] Phone Number [facility] DEPARTMENT OF PATHOLOGY AND [address] [place] [phone] [address] Haptoglobin (02/09/2019 4:00 AM CDT) Haptoglobin 300 (H) 30 - 200 mg/dL [facility] Specimen Plasma specimen Performing Organization Address [facility] Phone Number [facility] DEPARTMENT OF PATHOLOGY AND [address] [place] [phone] Folate level (02/09/2019 4:00 AM CDT) Folate >20.0 4.8 - 24.2 ng/mL [facility] Specimen Serum Performing Organization Address [facility]/Zipcode Phone Number [facility] DEPARTMENT OF PATHOLOGY AND [address] [place] [phone] [place] [phone] Ferritin level (02/09/2019 4:00 AM CDT) Ferritin level 485 (H) 13 - 150 ng/mL [facility] Specimen Plasma specimen Performing Organization Address City/[facility] Phone Number [facility] DEPARTMENT OF PATHOLOGY AND [address] [place] [phone] [place] [phone] Vitamin B12 level (02/09/2019 4:00 AM CDT) Vitamin B12 1,810 (H) 211 - 946 [facility] Comment: pg/mL HOSPITAL Significant overlap exists between normal and deficiency states. However, most patients with deficiencies will have Serum B12 <200 pg/mL. Specimen Serum Performing Organization Address [facility] Phone Number [facility] DEPARTMENT OF PATHOLOGY AND [address] [place] [address] Ionized calcium (02/09/2019 4:00 AM CDT)Only the most recent of4 resultswithin the time period is included. pH 7.41 [facility] Ionized calcium 1.20 1.11 - 1.32 mmol/L [facility] Specimen Plasma specimen Performing Organization Address [facility] Phone Number [facility] DEPARTMENT OF PATHOLOGY AND [address] [place] [phone] [place] [phone] Hemoglobin & hematocrit (02/08/2019 2:10 PM CDT)Only the most recent of5 resultswithin the time period is included. HGB 8.1 (L) 12.0 - 16.0 g/dL [facility] HCT 23.8 (L) 37.0 - 47.0 % [facility] Specimen Blood Performing Organization Address City/[facility] Phone Number [facility] DEPARTMENT OF PATHOLOGY AND [address] [place] [phone] [place] [phone] Transfuse RBC (02/08/2019 6:27 AM CDT)Only the most recent of2 resultswithin the time period is included.Creatinine level, urine, random (02/07/2019 6:45 PM CDT) Pathologist [facility] Creatinine, urine, 19 mg/dL [facility] random HOSPITAL Specimen Urine Performing Organization Address [facility] Phone Number [facility] DEPARTMENT OF PATHOLOGY AND [address] [place] [phone] Partial thromboplastin time, activated (02/07/2019 3:10 PM CDT)Only the most recent of7 resultswithin the time period is included. [facility] PTT 35.3 23.0 - 36.0 [facility] Comment: [facility] PTT therapeutic range for unfractionated heparin is 61.0-112.0 seconds which corresponds to Anti-Xa 0.3-0.7 U/ml. Specimen Blood Performing Organization Address [facility] Phone Number [facility] DEPARTMENT OF PATHOLOGY AND [address] [place] [phone] Anti Xa, unfractionated (02/06/2019 9:45 PM CDT)Only the most recent of2 resultswithin the time period is included. [facility] Anti Xa, 0.23 (L)Comment: 0.30 - 0.70 [place] unfractionated Therapeutic Range: U/mL SCIENTOLOGIST 0.30 - 0.70 U/mL HOSPITAL Specimen Blood Performing Organization Address [facility] Phone Number [facility] DEPARTMENT OF PATHOLOGY AND [address] [place] [phone] Creatine kinase, total (CPK) (02/06/2019 3:48 PM CDT)Only the most recent of3 resultswithin the time period is included. [facility] Creatine kinase 111 26 - 192 U/L [facility] Specimen Plasma specimen Performing Organization Address [facility] Phone Number [facility] DEPARTMENT OF PATHOLOGY AND [address] [place] [phone] Sodium level, syringe (02/06/2019 9:08 AM CDT)Only the most recent of3 resultswithin the time period is included. Sodium, syringe 133 (L) 135 - 148 mEq/L [facility] Specimen Blood Performing Organization Address City/[facility] Phone Number [facility] DEPARTMENT OF PATHOLOGY AND [address] [place] [phone] Potassium, syringe (02/06/2019 9:08 AM CDT)Only the most recent of3 resultswithin the time period is included. Potassium, syringe 4.6 3.5 - 5.0 mEq/L [facility] Specimen Blood Performing Organization Address [facility] Phone Number [facility] DEPARTMENT OF PATHOLOGY AND [address] [place] [address] Ionized calcium, arterial (02/06/2019 9:08 AM CDT)Only the most recent of3 resultswithin the time period is included. Ionized calcium, 1.07 (L) 1.11 - 1.32 [facility] arterial mmol/L [facility] Specimen Blood Performing Organization Address [facility] Phone Number [facility] DEPARTMENT OF PATHOLOGY AND [address] [place] [phone] Hemoglobin, syringe (02/06/2019 9:08 AM CDT)Only the most recent of3 resultswithin the time period is included. Hemoglobin, syringe 8.5 (L) 12.0 - 16.0 g/dL [facility] Specimen Blood Performing Organization Address City/[facility] Phone Number [facility] DEPARTMENT OF PATHOLOGY AND [address] [place] [phone] Glucose level, syringe (02/06/2019 9:08 AM CDT)Only the most recent of3 resultswithin the time period is included. Glucose, syringe 103 (H) 65 - 99 mg/dL [facility] Specimen Blood Performing Organization Address City/[facility] Phone Number [facility] DEPARTMENT OF PATHOLOGY AND [address] [place] [phone] [place] [address] Arterial blood gas, corrected (02/06/2019 9:08 AM CDT)Only the most recent of3 resultswithin the time period is included. pH, arterial 7.32 (L) 7.35 - 7.45 [facility] pCO2, arterial 37 35 - 45 mmHg [facility] pO2, arterial 271 (H) 80 - 90 mmHg [facility] Temperature, Celsius 37.0 Degrees C [facility] O2 saturation, 100 95 - 100 % [facility] arterial HOSPITAL pH, arterial 7.32 [facility] HOSPITAL pCO2, arterial 37 mmHg [facility]OSPITAL pO2, arterial 271 mmHg [facility] HOSPITAL Base excess, arterial -6 (L) -2 - 2 mEq/L [facility] Specimen Blood Performing Organization Address [facility] Phone Number [facility] DEPARTMENT OF PATHOLOGY AND [address] [place] [phone] Activated clotting time (02/06/2019 8:24 AM CDT)Only the most recent of3 resultswithin the time period is included. Pathologist [facility] Activated clotting 229 (H) 96 - 152 sec [facility] Comment: HOSPITAL Meter ID: [id number] Learning Disabilities Resource Teacher: Basilio Vasquez Specimen Performing Organization Address [facility] Phone Number [facility] DEPARTMENT OF PATHOLOGY AND [address] [place] [address] Prepare RBC, 1 Units (02/06/2019 4:15 AM CDT)Only the most recent of3 resultswithin the time period is included. Pathologist [facility] Product name Red Blood Cells [facility] -1, Leukored HOSPITAL Unit number [id number] [facility] Product code [id number] [facility] Dispense status Transfused [facility] Blood expiration [facility] HOSPITAL Blood type code 7300 [facility] Blood type B POSITIVE [facility] Specimen Blood Performing Organization Address City/State/Zipcode Phone Number [facility] DEPARTMENT OF PATHOLOGY AND [address] [place] [address] GENOMIC MEDICINE [facility] [address] [place] [address] after 03/06/2018 Insurance Payer Benefit Plan / Subscriber ID Effective Dates Phone Address Type Group MEDICARE MEDICARE PART A xxxxxxxxxx 2002-Present [place], [place] Medicare AND B Advance Directives For more information, please contact: [phone] 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
--- OUTSIDE RECORDS SUMMARY | 2019-03-07 02:48 | XMS REPORT ---
:1935 [facility] Address [address] [place] [address] Dr. Mcduffie [address] [place] [id number] Care Team Providers Name Role Phone [place] [...] Comments SODIUM (BEAKER) (test 134 meq/L 136-145 qnqj=520) POTASSIUM (BEAKER) (test 4.5 meq/L 3.5-5.1 Specimen slightly hemolyzed kaht=109) CHLORIDE (BEAKER) (test 108 meq/L 98-107 xsav=334) CO2 (BEAKER) (test yqzf=101) 18 meq/L 22-29 BLOOD UREA NITROGEN (BEAKER) 15 mg/dL 7-21 (test hhdr=270) CREATININE (BEAKER) (test 1.04 mg/dL 0.57-1.25 Specimen slightly hemolyzed wkfo=557) GLUCOSE RANDOM (BEAKER) 117 mg/dL 70-105 (test rbfc=822) CALCIUM (BEAKER) (test 8.8 mg/dL 8.4-10.2 tcol=176) EGFR (BEAKER) (test 51 mL/min/1.73 sq m ESTIMATED GFR IS NOT akdu=2892) ACCURATE CREATININE CLEARANCE IN PREDICTING GLOMERULAR FILTRATION RATE. ESTIMATED GFR IS NOT APPLICABLE FOR DIALYSIS PATIENTS. CBC W/PLT COUNT & AUTO [id number] 06:55:00 Test Item Value Reference Range Comments WHITE BLOOD CELL COUNT (BEAKER) (test ntpk=269) 10.1 K/ L 3.5-10.5 RED BLOOD CELL COUNT (BEAKER) (test zuzv=412) 3.36 M/ L 3.93-5.22 HEMOGLOBIN (BEAKER) (test wote=229) 10.6 GM/DL 11.2-15.7 HEMATOCRIT (BEAKER) (test tgau=708) 33.4 % 34.1-44.9 MEAN CORPUSCULAR VOLUME (BEAKER) (test rgiu=700) 99.4 fL 79.4-94.8 MEAN CORPUSCULAR HEMOGLOBIN (BEAKER) (test 31.5 pg 25.6-32.2 bkhz=859) MEAN CORPUSCULAR HEMOGLOBIN CONC (BEAKER) (test 31.7 GM/DL 32.2-35.5 gecf=927) RED CELL DISTRIBUTION WIDTH (BEAKER) (test 13.2 % 11.7-14.4 pxgk=998) PLATELET COUNT (BEAKER) (test tuip=083) 206 K/CU MM 150-450 MEAN PLATELET VOLUME (BEAKER) (test wpxf=996) 11.1 fL 9.4-12.3 NUCLEATED RED BLOOD CELLS (BEAKER) (test 0 /100 WBC 0-0 eued=834) NEUTROPHILS RELATIVE PERCENT (BEAKER) (test 78 % ngeg=116) LYMPHOCYTES RELATIVE PERCENT (BEAKER) (test 12 % lmug=461) MONOCYTES RELATIVE PERCENT (BEAKER) (test 7 % frli=205) EOSINOPHILS RELATIVE PERCENT (BEAKER) (test 2 % uafh=680) BASOPHILS RELATIVE PERCENT (BEAKER) (test 0 % jklr=192) NEUTROPHILS ABSOLUTE COUNT (BEAKER) (test 7.86 K/ L 1.56-6.13 yqln=342) LYMPHOCYTES ABSOLUTE COUNT (BEAKER) (test 1.21 K/ L 1.18-3.74 vuth=822) MONOCYTES ABSOLUTE COUNT (BEAKER) (test 0.73 K/ L 0.24-0.36 tjto=721) EOSINOPHILS ABSOLUTE COUNT (BEAKER) (test 0.19 K/ L 0.04-0.36 nndm=684) BASOPHILS ABSOLUTE COUNT (BEAKER) (test 0.04 K/ L 0.01-0.08 wass=084) IMMATURE GRANULOCYTES-RELATIVE PERCENT (BEAKER) 0 % 0-1 (test cosk=0166) BASIC METABOLIC [id number] 05:32:00 Test Item Value Reference Range Comments SODIUM (BEAKER) (test 135 meq/L 136-145 wjux=234) POTASSIUM (BEAKER) (test 3.9 meq/L 3.5-5.1 lhel=933) CHLORIDE (BEAKER) (test 108 meq/L 98-107 ddhm=369) CO2 (BEAKER) (test 20 meq/L 22-29 sial=441) BLOOD UREA NITROGEN 16 mg/dL 7-21 (BEAKER) (test qgkj=686) CREATININE (BEAKER) (test 1.03 mg/dL 0.57-1.25 rmyn=391) GLUCOSE RANDOM (BEAKER) 102 mg/dL 70-105 (test wpey=632) CALCIUM (BEAKER) (test 8.7 mg/dL 8.4-10.2 snnj=320) EGFR (BEAKER) (test 52 mL/min/1.73 sq m ESTIMATED GFR IS NOT jhbj=5907) ACCURATE CREATININE CLEARANCE IN PREDICTING GLOMERULAR FILTRATION RATE. ESTIMATED GFR IS NOT APPLICABLE FOR DIALYSIS PATIENTS. CBC W/PLT COUNT & AUTO [id number] 05:11:00 Test Item Value Reference Range Comments WHITE BLOOD CELL COUNT (BEAKER) (test ilzr=110) 6.0 K/ L 3.5-10.5 RED BLOOD CELL COUNT (BEAKER) (test vlff=941) 3.26 M/ L 3.93-5.22 HEMOGLOBIN (BEAKER) (test agtd=533) 10.0 GM/DL 11.2-15.7 HEMATOCRIT (BEAKER) (test mkla=906) 31.7 % 34.1-44.9 MEAN CORPUSCULAR VOLUME (BEAKER) (test ktjw=097) 97.2 fL 79.4-94.8 MEAN CORPUSCULAR HEMOGLOBIN (BEAKER) (test 30.7 pg 25.6-32.2 khal=705) MEAN CORPUSCULAR HEMOGLOBIN CONC (BEAKER) (test 31.5 GM/DL 32.2-35.5 suqk=718) RED CELL DISTRIBUTION WIDTH (BEAKER) (test 13.2 % 11.7-14.4 qaez=955) PLATELET COUNT (BEAKER) (test yvfj=412) 199 K/CU MM 150-450 MEAN PLATELET VOLUME (BEAKER) (test yglq=626) 10.7 fL 9.4-12.3 NUCLEATED RED BLOOD CELLS (BEAKER) (test 0 /100 WBC 0-0 pqin=028) NEUTROPHILS RELATIVE PERCENT (BEAKER) (test 60 % czse=451) LYMPHOCYTES RELATIVE PERCENT (BEAKER) (test 23 % cyrx=562) MONOCYTES RELATIVE PERCENT (BEAKER) (test 13 % uygt=226) EOSINOPHILS RELATIVE PERCENT (BEAKER) (test 3 % fhad=991) BASOPHILS RELATIVE PERCENT (BEAKER) (test 0 % fmml=483) NEUTROPHILS ABSOLUTE COUNT (BEAKER) (test 3.59 K/ L 1.56-6.13 ecje=790) LYMPHOCYTES ABSOLUTE COUNT (BEAKER) (test 1.36 K/ L 1.18-3.74 bfvf=999) MONOCYTES ABSOLUTE COUNT (BEAKER) (test 0.77 K/ L 0.24-0.36 vzub=052) EOSINOPHILS ABSOLUTE COUNT (BEAKER) (test 0.20 K/ L 0.04-0.36 bfvu=171) BASOPHILS ABSOLUTE COUNT (BEAKER) (test 0.02 K/ L 0.01-0.08 yaoj=898) IMMATURE GRANULOCYTES-RELATIVE PERCENT (BEAKER) 0 % 0-1 (test fkfz=9343) [id number] 07:46:00 Test Item Value Reference Range Comments MAGNESIUM (BEAKER) (test mdxk=562) 2.2 mg/dL 1.6-2.6 BASIC METABOLIC [id number] 07:46:00 Test Item Value Reference Range Comments SODIUM (BEAKER) (test 135 meq/L 136-145 jiuy=752) POTASSIUM (BEAKER) (test 3.6 meq/L 3.5-5.1 tdnd=916) CHLORIDE (BEAKER) (test 106 meq/L 98-107 aevr=378) CO2 (BEAKER) (test 21 meq/L 22-29 hocu=905) BLOOD UREA NITROGEN 21 mg/dL 7-21 (BEAKER) (test soop=962) CREATININE (BEAKER) (test 1.11 mg/dL 0.57-1.25 gnaw=204) GLUCOSE RANDOM (BEAKER) 97 mg/dL 70-105 (test ywet=972) CALCIUM (BEAKER) (test 8.8 mg/dL 8.4-10.2 gozp=038) EGFR (BEAKER) (test 47 mL/min/1.73 sq m ESTIMATED GFR IS NOT skxy=1159) ACCURATE CREATININE CLEARANCE IN PREDICTING GLOMERULAR FILTRATION RATE. ESTIMATED GFR IS NOT APPLICABLE FOR DIALYSIS PATIENTS. CBC W/PLT COUNT & AUTO [id number] 07:31:00 Test Item Value Reference Range Comments WHITE BLOOD CELL COUNT (BEAKER) (test bdxq=720) 7.1 K/ L 3.5-10.5 RED BLOOD CELL COUNT (BEAKER) (test qrqw=219) 3.41 M/ L 3.93-5.22 HEMOGLOBIN (BEAKER) (test ozfu=225) 10.7 GM/DL 11.2-15.7 HEMATOCRIT (BEAKER) (test hcyx=256) 32.7 % 34.1-44.9 MEAN CORPUSCULAR VOLUME (BEAKER) (test ngtf=602) 95.9 fL 79.4-94.8 MEAN CORPUSCULAR HEMOGLOBIN (BEAKER) (test 31.4 pg 25.6-32.2 lfok=372) MEAN CORPUSCULAR HEMOGLOBIN CONC (BEAKER) (test 32.7 GM/DL 32.2-35.5 hetd=302) RED CELL DISTRIBUTION WIDTH (BEAKER) (test 13.2 % 11.7-14.4 ixzi=807) PLATELET COUNT (BEAKER) (test sfcv=875) 216 K/CU MM 150-450 MEAN PLATELET VOLUME (BEAKER) (test ttzi=280) 10.5 fL 9.4-12.3 NUCLEATED RED BLOOD CELLS (BEAKER) (test 0 /100 WBC 0-0 gsfr=555) NEUTROPHILS RELATIVE PERCENT (BEAKER) (test 66 % libu=037) LYMPHOCYTES RELATIVE PERCENT (BEAKER) (test 20 % hchr=995) MONOCYTES RELATIVE PERCENT (BEAKER) (test 11 % gnlp=375) EOSINOPHILS RELATIVE PERCENT (BEAKER) (test 3 % ipcn=261) BASOPHILS RELATIVE PERCENT (BEAKER) (test 0 % kmsi=119) NEUTROPHILS ABSOLUTE COUNT (BEAKER) (test 4.69 K/ L 1.56-6.13 kndh=395) LYMPHOCYTES ABSOLUTE COUNT (BEAKER) (test 1.44 K/ L 1.18-3.74 ekua=872) MONOCYTES ABSOLUTE COUNT (BEAKER) (test 0.78 K/ L 0.24-0.36 bldp=918) EOSINOPHILS ABSOLUTE COUNT (BEAKER) (test 0.18 K/ L 0.04-0.36 vgrn=111) BASOPHILS ABSOLUTE COUNT (BEAKER) (test 0.02 K/ L 0.01-0.08 ehrb=617) IMMATURE GRANULOCYTES-RELATIVE PERCENT (BEAKER) 0 % 0-1 (test vbbc=3065) BASIC METABOLIC [id number] 14:48:00 Test Item Value Reference Range Comments SODIUM (BEAKER) (test 133 meq/L 136-145 xntq=137) POTASSIUM (BEAKER) (test 4.3 meq/L 3.5-5.1 ptsj=381) CHLORIDE (BEAKER) (test 103 meq/L 98-107 iiei=350) CO2 (BEAKER) (test 21 meq/L 22-29 kvwi=477) BLOOD UREA NITROGEN 31 mg/dL 7-21 (BEAKER) (test dirc=541) CREATININE (BEAKER) (test 1.25 mg/dL 0.57-1.25 qqoo=776) GLUCOSE RANDOM (BEAKER) 105 mg/dL 70-105 (test vmkq=169) CALCIUM (BEAKER) (test 9.0 mg/dL 8.4-10.2 tupq=966) EGFR (BEAKER) (test 41 mL/min/1.73 sq m ESTIMATED GFR IS NOT fmod=7481) ACCURATE CREATININE CLEARANCE IN PREDICTING GLOMERULAR FILTRATION RATE. ESTIMATED GFR IS NOT APPLICABLE FOR DIALYSIS PATIENTS. [id number] 06:03:00 Test Item Value Reference Range Comments MAGNESIUM (BEAKER) (test qxqp=570) 2.3 mg/dL 1.6-2.6 CBC (HEMOGRAM ONLY)2018-02-19 05:46:00 Test Item Value Reference Range Comments WHITE BLOOD CELL COUNT (BEAKER) (test xpng=587) 8.9 K/ L 3.5-10.5 RED BLOOD CELL COUNT (BEAKER) (test iqei=594) 3.46 M/ L 3.93-5.22 HEMOGLOBIN (BEAKER) (test cqsz=699) 11.0 GM/DL 11.2-15.7 HEMATOCRIT (BEAKER) (test fvvj=291) 33.3 % 34.1-44.9 MEAN CORPUSCULAR VOLUME (BEAKER) (test vdrb=782) 96.2 fL 79.4-94.8 MEAN CORPUSCULAR HEMOGLOBIN (BEAKER) (test 31.8 pg 25.6-32.2 knlq=066) MEAN CORPUSCULAR HEMOGLOBIN CONC (BEAKER) (test 33.0 GM/DL 32.2-35.5 ltqz=538) RED CELL DISTRIBUTION WIDTH (BEAKER) (test 13.1 % 11.7-14.4 zodl=463) PLATELET COUNT (BEAKER) (test yqrv=825) 218 K/CU MM 150-450 MEAN PLATELET VOLUME (BEAKER) (test jcaf=349) 10.9 fL 9.4-12.3 NUCLEATED RED BLOOD CELLS (BEAKER) (test 0 /100 WBC 0-0 ylnk=570) POCT-GLUCOSE [id number] 14:00:00 Test Item Value Reference Range Comments POC-GLUCOSE METER (BEAKER) 283 mg/dL 70-110 TESTED AT [facility] [address] [facility] (test jtwk=0700) [facility] [address] [id number] 05:56:00 Test Item Value Reference Range Comments MAGNESIUM (BEAKER) (test dvlp=506) 2.8 mg/dL 1.6-2.6 BASIC METABOLIC [id number] 05:56:00 Test Item Value Reference Range Comments SODIUM (BEAKER) (test 132 meq/L 136-145 uafl=721) POTASSIUM (BEAKER) (test 4.0 meq/L 3.5-5.1 vrie=919) CHLORIDE (BEAKER) (test 104 meq/L 98-107 aiux=220) CO2 (BEAKER) (test 19 meq/L 22-29 oxhi=645) BLOOD UREA NITROGEN 31 mg/dL 7-21 (BEAKER) (test cncf=541) CREATININE (BEAKER) (test 1.28 mg/dL 0.57-1.25 vsjg=351) GLUCOSE RANDOM (BEAKER) 69 mg/dL 70-105 (test uudi=073) CALCIUM (BEAKER) (test 8.8 mg/dL 8.4-10.2 pmwh=258) EGFR (BEAKER) (test 40 mL/min/1.73 sq m ESTIMATED GFR IS NOT wrzz=8076) ACCURATE CREATININE CLEARANCE IN PREDICTING GLOMERULAR FILTRATION RATE. ESTIMATED GFR IS NOT APPLICABLE FOR DIALYSIS PATIENTS. CBC (HEMOGRAM ONLY)2018-02-18 05:30:00 Test Item Value Reference Range Comments WHITE BLOOD CELL COUNT (BEAKER) (test awtn=919) 8.4 K/ L 3.5-10.5 RED BLOOD CELL COUNT (BEAKER) (test kedc=807) 3.53 M/ L 3.93-5.22 HEMOGLOBIN (BEAKER) (test fgcl=174) 11.1 GM/DL 11.2-15.7 HEMATOCRIT (BEAKER) (test xzfb=903) 34.9 % 34.1-44.9 MEAN CORPUSCULAR VOLUME (BEAKER) (test uqhm=940) 98.9 fL 79.4-94.8 MEAN CORPUSCULAR HEMOGLOBIN (BEAKER) (test 31.4 pg 25.6-32.2 cngq=226) MEAN CORPUSCULAR HEMOGLOBIN CONC (BEAKER) (test 31.8 GM/DL 32.2-35.5 mbwx=945) RED CELL DISTRIBUTION WIDTH (BEAKER) (test 13.2 % 11.7-14.4 nxxa=951) PLATELET COUNT (BEAKER) (test nweg=083) 205 K/CU MM 150-450 MEAN PLATELET VOLUME (BEAKER) (test canq=830) 10.7 fL 9.4-12.3 NUCLEATED RED BLOOD CELLS (BEAKER) (test 0 /100 WBC 0-0 hgfn=387) [id number] 23:41:00 Test Item Value Reference Range Comments ACTIVATED CLOTTING TIME (BEAKER) 92 sec TESTED AT [address] (test qpit=631) [place] [address] [id number] 21:56:00 Test Item Value Reference Range Comments ACTIVATED CLOTTING TIME 153 sec TESTED AT [address] (BEAKER) (test hwhm=475) [place] [address] [id number] 19:28:00 Test Item Value Reference Range Comments ACTIVATED CLOTTING TIME 197 sec TESTED AT [address] (BEAKER) (test vjdg=604) [place] [address] [id number] 17:41:00 Test Item Value Reference Range Comments ACTIVATED CLOTTING TIME 246 sec TESTED AT [address] (BEAKER) (test xlwn=690) [place] [address] [id number] 12:36:00 Test Item Value Reference Range Comments POTASSIUM (BEAKER) (test hmiy=967) 4.0 meq/L 3.5-5.1 TROPONIN [id number] 12:03:00 Test Item Value Reference Range Comments TROPONIN I (BEAKER) (test iibr=976) 3.94 ng/mL 0.00-0.03 Troponin I (TnI) levels [...] failure, acidosis, acute neurological disease, and persistent tachyarrhythmia.[id number] 11:44:00 Test Item Value Reference Range Comments MAGNESIUM (BEAKER) (test nies=631) 1.9 mg/dL 1.6-2.6 [id number] 11:37:00 Test Item Value Reference Range Comments PARTIAL THROMBOPLASTIN TIME (BEAKER) (test 98.3 seconds 22.5-36.0 gndj=327) [id number] 04:04:00 Test Item Value Reference Range Comments PARTIAL THROMBOPLASTIN TIME (BEAKER) (test 92.5 seconds 22.5-36.0 qsnt=066) TROPONIN [id number] 02:06:00 Test Item Value Reference Range Comments TROPONIN I (BEAKER) (test gylw=672) 7.11 ng/mL 0.00-0.03 Troponin I (TnI) levels [...] acute neurological disease, and persistent tachyarrhythmia.BASIC METABOLIC [id number] 01:56:00 Test Item Value Reference Range Comments SODIUM (BEAKER) (test 135 meq/L 136-145 lcit=721) POTASSIUM (BEAKER) (test 3.7 meq/L 3.5-5.1 okxv=929) CHLORIDE (BEAKER) (test 102 meq/L 98-107 myxm=537) CO2 (BEAKER) (test 22 meq/L 22-29 svfy=256) BLOOD UREA NITROGEN 17 mg/dL 7-21 (BEAKER) (test uxub=643) CREATININE (BEAKER) (test 1.49 mg/dL 0.57-1.25 oewq=894) GLUCOSE RANDOM (BEAKER) 90 mg/dL 70-105 (test rpxy=307) CALCIUM (BEAKER) (test 9.2 mg/dL 8.4-10.2 byoj=938) EGFR (BEAKER) (test 34 mL/min/1.73 sq m ESTIMATED GFR IS NOT tuls=3909) ACCURATE CREATININE CLEARANCE IN PREDICTING GLOMERULAR FILTRATION RATE. ESTIMATED GFR IS NOT APPLICABLE FOR DIALYSIS PATIENTS. [id number] 01:53:00 Test Item Value Reference Range Comments PROTIME (BEAKER) (test wpap=751) 15.2 seconds 11.7-14.7 INR (BEAKER) (test skma=084) 1.2 <=5.9 PARTIAL THROMBOPLASTIN TIME (BEAKER) (test 146.1 seconds 22.5-36.0 zmda=534) RECOMMENDED COUMADIN/WARFARIN INR THERAPY RANGESSTANDARD DOSE: 2.0 - 3.0 Includes: PROPHYLAXIS forvenous thrombosis, systemic embolization; TREATMENT for venous thrombosis and/or pulmonary embolus.HIGH RISK: Target INR is 2.5-3.5 for patients with mechanical heart valves.PROTHROMBIN [id number] 01:50: 00 Test Item Value Reference Range Comments PROTIME (BEAKER) (test cqtu=222) 15.2 seconds 11.7-14.7 INR (BEAKER) (test jzfo=444) 1.2 <=5.9 RECOMMENDED COUMADIN/WARFARIN INR THERAPY RANGESSTANDARD DOSE: 2.0 - 3.0 Includes: PROPHYLAXIS forvenous thrombosis, systemic embolization; TREATMENT for venous thrombosis and/or pulmonary embolus.HIGH RISK: Target INR is 2.5-3.5 for patients with mechanical heart valves.CBC W/PLT COUNT & AUTO [id number] 01:43:00 Test Item Value Reference Range Comments WHITE BLOOD CELL COUNT (BEAKER) (test zfqf=953) 7.1 K/ L 3.5-10.5 RED BLOOD CELL COUNT (BEAKER) (test ezty=190) 3.45 M/ L 3.93-5.22 HEMOGLOBIN (BEAKER) (test bmqn=320) 10.8 GM/DL 11.2-15.7 HEMATOCRIT (BEAKER) (test dirt=674) 33.2 % 34.1-44.9 MEAN CORPUSCULAR VOLUME (BEAKER) (test ixrs=928) 96.2 fL 79.4-94.8 MEAN CORPUSCULAR HEMOGLOBIN (BEAKER) (test 31.3 pg 25.6-32.2 atbk=851) MEAN CORPUSCULAR HEMOGLOBIN CONC (BEAKER) (test 32.5 GM/DL 32.2-35.5 ugut=556) RED CELL DISTRIBUTION WIDTH (BEAKER) (test 13.3 % 11.7-14.4 nkge=299) PLATELET COUNT (BEAKER) (test uafd=428) 190 K/CU MM 150-450 MEAN PLATELET VOLUME (BEAKER) (test stck=394) 10.5 fL 9.4-12.3 NUCLEATED RED BLOOD CELLS (BEAKER) (test 0 /100 WBC 0-0 fmpp=249) NEUTROPHILS RELATIVE PERCENT (BEAKER) (test 76 % vhpj=918) LYMPHOCYTES RELATIVE PERCENT (BEAKER) (test 12 % oiha=196) MONOCYTES RELATIVE PERCENT (BEAKER) (test 10 % yftg=373) EOSINOPHILS RELATIVE PERCENT (BEAKER) (test 1 % qhfc=948) BASOPHILS RELATIVE PERCENT (BEAKER) (test 0 % fvsq=102) NEUTROPHILS ABSOLUTE COUNT (BEAKER) (test 5.45 K/ L 1.56-6.13 gjyd=710) LYMPHOCYTES ABSOLUTE COUNT (BEAKER) (test 0.85 K/ L 1.18-3.74 umaw=545) MONOCYTES ABSOLUTE COUNT (BEAKER) (test 0.70 K/ L 0.24-0.36 odmy=489) EOSINOPHILS ABSOLUTE COUNT (BEAKER) (test 0.10 K/ L 0.04-0.36 lrbc=603) BASOPHILS ABSOLUTE COUNT (BEAKER) (test 0.02 K/ L 0.01-0.08 odps=888) IMMATURE GRANULOCYTES-RELATIVE PERCENT (BEAKER) 0 % 0-1 (test rerx=8400) [id number] 23:09:00 Test Item Value Reference Range Comments RPR SCREEN (BEAKER) (test utlk=629) Nonreactive Nonreactive TROPONIN [id number] 21:20:00 Test Item Value Reference Range Comments TROPONIN I (BEAKER) (test ydwk=804) 7.60 ng/mL 0.00-0.03 Troponin I (TnI) levels [...] failure, acidosis, acute neurological disease, and persistent tachyarrhythmia.[id number] 18:57:00 Test Item Value Reference Range Comments PARTIAL THROMBOPLASTIN TIME (LISANDROAKER) (test 58.1 seconds 22.5-36.0 wkyd=252) TROPONIN [id number] 15:25:00 Test Item Value Reference Range Comments TROPONIN I (LISANDROAKER) (test dpxn=487) 6.89 ng/mL 0.00-0.03 Troponin I (TnI) levels [...] NATRIURETIC PEPTIDE (LISANDROAKER) (test 2849 pg/mL 0-100 zjsn=947) Please obtain with next scheduled blood draw- no Need for extra pokeRAD, CHEST , 1 VIEW, NON [id number] 11:13:00Reason for exam:->chest painFINAL REPORT HISTORY : [...] Verified Date/ Time: 02/16/2018 11:13:08 Reading Location: [facility] Radiology Reading Room TROPONIN [id number] 09:59:00 Test Item Value Reference Range Comments TROPONIN I (BEAKER) (test trxy=244) 6.35 ng/mL 0.00-0.03 Troponin I (TnI) levels [...] failure, acidosis, acute neurological disease, and persistent tachyarrhythmia.[id number] 09:06:00 Test Item Value Reference Range Comments PARTIAL THROMBOPLASTIN TIME (BEAKER) (test 26.7 seconds 22.5-36.0 imnu=795) Prior to initiating heparinPLATELET [id number] 08:48:00 Test Item Value Reference Range Comments PLATELET COUNT (LISANDROAKER) (test vlam=808) 230 K/CU MM 150-450 CT BRAIN WITHOUT IV CONTRAST - [id number] 06:53:00Reason for exam:-> post-tpaFINAL REPORT EXAM: CT [...] Verified Date/ Time: 02/16/2018 06:53:18 Reading Location: [facility] [id number] Transitional Reading Room AELMARIMAR [id number] 03:14:00 Test Item Value Reference Range Comments TROPONIN I (BEAKER) (test ynnc=709) 3.40 ng/mL 0.00-0.03 Troponin I (TnI) levels [...] acute neurological disease, and persistent tachyarrhythmia.BASIC METABOLIC [id number] 02:53:00 Test Item Value Reference Range Comments SODIUM (BEAKER) (test 137 meq/L 136-145 fpil=614) POTASSIUM (BEAKER) (test 4.4 meq/L 3.5-5.1 iszt=767) CHLORIDE (BEAKER) (test 106 meq/L 98-107 bxik=371) CO2 (BEAKER) (test 22 meq/L 22-29 djbb=359) BLOOD UREA NITROGEN 12 mg/dL 7-21 (BEAKER) (test xmyp=881) CREATININE (BEAKER) (test 1.06 mg/dL 0.57-1.25 jjei=143) GLUCOSE RANDOM (BEAKER) 109 mg/dL 70-105 (test mnbg=006) CALCIUM (BEAKER) (test 9.8 mg/dL 8.4-10.2 kwqd=940) EGFR (BEAKER) (test 50 mL/min/1.73 sq m ESTIMATED GFR IS NOT rqrb=7662) ACCURATE CREATININE CLEARANCE IN PREDICTING GLOMERULAR FILTRATION RATE. ESTIMATED GFR IS NOT APPLICABLE FOR DIALYSIS PATIENTS. [id number] 02:48:00 Test Item Value Reference Range Comments PROTIME (BEAKER) (test rxfe=316) 14.5 seconds 11.7-14.7 INR (BEAKER) (test uelg=396) 1.1 <=5.9 PARTIAL THROMBOPLASTIN TIME (BEAKER) (test 25.7 seconds 22.5-36.0 vyya=980) RECOMMENDED COUMADIN/WARFARIN INR THERAPY RANGESSTANDARD DOSE: 2.0 - 3.0 Includes: PROPHYLAXIS forvenous thrombosis, systemic embolization; TREATMENT for venous thrombosis and/or pulmonary embolus.HIGH RISK: Target INR is 2.5-3.5 for patients with mechanical heart valves.PROTHROMBIN [id number] 02:47: 00 Test Item Value Reference Range Comments PROTIME (BEAKER) (test jfan=188) 14.5 seconds 11.7-14.7 INR (BEAKER) (test acwk=732) 1.1 <=5.9 RECOMMENDED COUMADIN/WARFARIN INR THERAPY RANGESSTANDARD DOSE: 2.0 - 3.0 Includes: PROPHYLAXIS forvenous thrombosis, systemic embolization; TREATMENT for venous thrombosis and/or pulmonary embolus.HIGH RISK: Target INR is 2.5-3.5 for patients with mechanical heart valves.CBC W/PLT COUNT & AUTO [id number] 02:29:00 Test Item Value Reference Range Comments WHITE BLOOD CELL COUNT (BEAKER) (test fnqk=137) 8.8 K/ L 3.5-10.5 RED BLOOD CELL COUNT (BEAKER) (test oktu=063) 3.71 M/ L 3.93-5.22 HEMOGLOBIN (BEAKER) (test eqer=139) 11.9 GM/DL 11.2-15.7 HEMATOCRIT (BEAKER) (test kcfl=207) 35.8 % 34.1-44.9 MEAN CORPUSCULAR VOLUME (BEAKER) (test udya=662) 96.5 fL 79.4-94.8 MEAN CORPUSCULAR HEMOGLOBIN (BEAKER) (test 32.1 pg 25.6-32.2 osau=623) MEAN CORPUSCULAR HEMOGLOBIN CONC (BEAKER) (test 33.2 GM/DL 32.2-35.5 bycn=175) RED CELL DISTRIBUTION WIDTH (BEAKER) (test 13.2 % 11.7-14.4 ssit=177) PLATELET COUNT (BEAKER) (test abvq=471) 205 K/CU MM 150-450 MEAN PLATELET VOLUME (BEAKER) (test epar=311) 10.2 fL 9.4-12.3 NUCLEATED RED BLOOD CELLS (BEAKER) (test 0 /100 WBC 0-0 mvvg=955) NEUTROPHILS RELATIVE PERCENT (BEAKER) (test 83 % oeye=695) LYMPHOCYTES RELATIVE PERCENT (BEAKER) (test 8 % qjzv=950) MONOCYTES RELATIVE PERCENT (BEAKER) (test 9 % nvqk=376) EOSINOPHILS RELATIVE PERCENT (BEAKER) (test 0 % ovfp=937) BASOPHILS RELATIVE PERCENT (BEAKER) (test 0 % qkhz=713) NEUTROPHILS ABSOLUTE COUNT (BEAKER) (test 7.27 K/ L 1.56-6.13 rwvc=781) LYMPHOCYTES ABSOLUTE COUNT (BEAKER) (test 0.68 K/ L 1.18-3.74 auaw=864) MONOCYTES ABSOLUTE COUNT (BEAKER) (test 0.77 K/ L 0.24-0.36 gudf=505) EOSINOPHILS ABSOLUTE COUNT (BEAKER) (test 0.01 K/ L 0.04-0.36 wglf=193) BASOPHILS ABSOLUTE COUNT (BEAKER) (test 0.02 K/ L 0.01-0.08 dgxs=177) IMMATURE GRANULOCYTES-RELATIVE PERCENT (BEAKER) 1 % 0-1 (test vili=1341) TROPONIN [id number] 17:32:00 Test Item Value Reference Range Comments TROPONIN I (BEAKER) (test nxwy=337) 0.13 ng/mL 0.00-0.03 Troponin I (TnI) levels [...] acidosis, acute neurological disease, and persistent tachyarrhythmia.HEMOGLOBIN [id number] 11:13:00 Test Item Value Reference Range Comments HEMOGLOBIN A1C (BEAKER) (test zivo=602) 5.4 % 4.3-6.1 [id number] 05:41:00 Test Item Value Reference Range Comments THYROID STIMULATING HORMONE (BEAKER) (test 0.94 uIU/mL 0.35-4.94 mspv=719) VITAMIN B12 AND [id number] 05:41:00 Test Item Value Reference Range Comments VITAMIN B12 (BEAKER) (test pysk=138) 1440 pg/mL 213-816 FOLATE (BEAKER) (test jsnr=277) 7.6 ng/mL >=7.0 [id number] 05:07:00 Test Item Value Reference Range Comments MAGNESIUM (BEAKER) (test 1.7 mg/dL 1.6-2.6 Specimen slightly hemolyzed ldjk=533) BASIC METABOLIC [id number] 05:07:00 Test Item Value Reference Range Comments SODIUM (BEAKER) (test 133 meq/L 136-145 gqtv=454) POTASSIUM (BEAKER) (test 4.2 meq/L 3.5-5.1 Specimen slightly hvdw=060) hemolyzed CHLORIDE (BEAKER) (test 104 meq/L 98-107 eyhj=575) CO2 (BEAKER) (test 21 meq/L 22-29 mkri=331) BLOOD UREA NITROGEN 12 mg/dL 7-21 (BEAKER) (test bjef=791) CREATININE (BEAKER) (test 0.95 mg/dL 0.57-1.25 Specimen slightly mnzt=547) hemolyzed GLUCOSE RANDOM (BEAKER) 98 mg/dL 70-105 (test jviz=391) CALCIUM (BEAKER) (test 9.3 mg/dL 8.4-10.2 vtdh=962) EGFR (BEAKER) (test 57 mL/min/1.73 sq m ESTIMATED GFR IS NOT nagg=8907) ACCURATE CREATININE CLEARANCE IN PREDICTING GLOMERULAR FILTRATION RATE. ESTIMATED GFR IS NOT APPLICABLE FOR DIALYSIS PATIENTS. LIPID [id number] 05:07:00 Test Item Value Reference Range Comments TRIGLYCERIDES (BEAKER) (test 137 mg/dL Specimen slightly hemolyzed gmgy=952) CHOLESTEROL (BEAKER) (test 155 mg/dL Specimen slightly hemolyzed mmbb=305) HDL CHOLESTEROL (BEAKER) (test 59 mg/dL svsf=101) LDL CHOLESTEROL CALCULATED 69 mg/dL (BEAKER) (test xrxc=605) Triglyceride Reference Range: Low Risk <150 Borderline 150- 199 High Risk 200-499 Very High Risk >=500Cholesterol Reference Range: Low Risk <200 Borderline 200-239 High Risk > 240HDL Cholesterol Reference Range: Low Risk >=60 High Risk <40LDL Cholesterol Reference Range: Optimal <100 Near Optimal 100-129 Borderline 130-159 High 160-189 Very High >=190PT/[id number] 04:54:00 Test Item Value Reference Range Comments PROTIME (BEAKER) (test uxfo=859) 14.0 seconds 11.7-14.7 INR (BEAKER) (test vbfh=838) 1.1 <=5.9 PARTIAL THROMBOPLASTIN TIME (BEAKER) (test 27.3 seconds 22.5-36.0 ehkb=426) RECOMMENDED COUMADIN/WARFARIN INR THERAPY RANGESSTANDARD DOSE: 2.0 - 3.0 Includes: PROPHYLAXIS forvenous thrombosis, systemic embolization; TREATMENT for venous thrombosis and/or pulmonary embolus.HIGH RISK: Target INR is 2.5-3.5 for patients with mechanical heart valves.PROTHROMBIN [id number] 04:53: 00 Test Item Value Reference Range Comments PROTIME (BEAKER) (test oipa=700) 14.0 seconds 11.7-14.7 INR (BEAKER) (test xcvy=416) 1.1 <=5.9 RECOMMENDED COUMADIN/WARFARIN INR THERAPY RANGESSTANDARD DOSE: 2.0 - 3.0 Includes: PROPHYLAXIS forvenous thrombosis, systemic embolization; TREATMENT for venous thrombosis and/or pulmonary embolus.HIGH RISK: Target INR is 2.5-3.5 for patients with mechanical heart valves.CBC W/PLT COUNT & AUTO [id number] 04:44:00 Test Item Value Reference Range Comments WHITE BLOOD CELL COUNT (BEAKER) (test fqlq=174) 5.8 K/ L 3.5-10.5 RED BLOOD CELL COUNT (BEAKER) (test xifj=030) 3.54 M/ L 3.93-5.22 HEMOGLOBIN (BEAKER) (test qjnq=256) 11.0 GM/DL 11.2-15.7 HEMATOCRIT (BEAKER) (test wdxn=554) 33.7 % 34.1-44.9 MEAN CORPUSCULAR VOLUME (BEAKER) (test rqyn=789) 95.2 fL 79.4-94.8 MEAN CORPUSCULAR HEMOGLOBIN (BEAKER) (test 31.1 pg 25.6-32.2 kvjh=320) MEAN CORPUSCULAR HEMOGLOBIN CONC (BEAKER) (test 32.6 GM/DL 32.2-35.5 trsn=287) RED CELL DISTRIBUTION WIDTH (BEAKER) (test 13.0 % 11.7-14.4 jnwg=288) PLATELET COUNT (BEAKER) (test kkhb=415) 202 K/CU MM 150-450 MEAN PLATELET VOLUME (BEAKER) (test tlnp=215) 10.7 fL 9.4-12.3 NUCLEATED RED BLOOD CELLS (BEAKER) (test 0 /100 WBC 0-0 ardj=999) NEUTROPHILS RELATIVE PERCENT (BEAKER) (test 71 % feqw=216) LYMPHOCYTES RELATIVE PERCENT (BEAKER) (test 14 % glbr=903) MONOCYTES RELATIVE PERCENT (BEAKER) (test 13 % tcsz=653) EOSINOPHILS RELATIVE PERCENT (BEAKER) (test 2 % mwkc=865) BASOPHILS RELATIVE PERCENT (BEAKER) (test 0 % nwwi=627) NEUTROPHILS ABSOLUTE COUNT (BEAKER) (test 4.08 K/ L 1.56-6.13 qsbk=819) LYMPHOCYTES ABSOLUTE COUNT (BEAKER) (test 0.80 K/ L 1.18-3.74 iikt=965) MONOCYTES ABSOLUTE COUNT (BEAKER) (test 0.76 K/ L 0.24-0.36 fssx=848) EOSINOPHILS ABSOLUTE COUNT (BEAKER) (test 0.10 K/ L 0.04-0.36 zsvl=709) BASOPHILS ABSOLUTE COUNT (BEAKER) (test 0.02 K/ L 0.01-0.08 fghp=133) IMMATURE GRANULOCYTES-RELATIVE PERCENT (BEAKER) 0 % 0-1 (test hbbd=1671) BASIC METABOLIC [id number] 16:02:00 Test Item Value Reference Range Comments SODIUM (BEAKER) (test 129 meq/L 136-145 iyzq=469) POTASSIUM (BEAKER) (test 3.7 meq/L 3.5-5.1 yavd=979) CHLORIDE (BEAKER) (test 97 meq/L 98-107 ehxl=731) CO2 (BEAKER) (test 22 meq/L 22-29 jhqi=916) BLOOD UREA NITROGEN 16 mg/dL 7-21 (BEAKER) (test shur=382) CREATININE (BEAKER) (test 1.12 mg/dL 0.57-1.25 siwt=865) GLUCOSE RANDOM (BEAKER) 116 mg/dL 70-105 (test rxex=306) CALCIUM (BEAKER) (test 10.0 mg/dL 8.4-10.2 muxi=845) EGFR (BEAKER) (test 47 mL/min/1.73 sq m ESTIMATED GFR IS NOT frev=6383) ACCURATE CREATININE CLEARANCE IN PREDICTING GLOMERULAR FILTRATION RATE. ESTIMATED GFR IS NOT APPLICABLE FOR DIALYSIS PATIENTS. CBC W/PLT COUNT & AUTO [id number] 15:31:00 Test Item Value Reference Range Comments WHITE BLOOD CELL COUNT (BEAKER) (test cymd=991) 8.2 K/ L 3.5-10.5 RED BLOOD CELL COUNT (BEAKER) (test qazy=759) 4.14 M/ L 3.93-5.22 HEMOGLOBIN (BEAKER) (test nkbo=106) 13.0 GM/DL 11.2-15.7 HEMATOCRIT (BEAKER) (test wxgq=400) 39.1 % 34.1-44.9 MEAN CORPUSCULAR VOLUME (BEAKER) (test ejvw=989) 94.4 fL 79.4-94.8 MEAN CORPUSCULAR HEMOGLOBIN (BEAKER) (test 31.4 pg 25.6-32.2 rzzi=082) MEAN CORPUSCULAR HEMOGLOBIN CONC (BEAKER) (test 33.2 GM/DL 32.2-35.5 spnr=028) RED CELL DISTRIBUTION WIDTH (BEAKER) (test 12.8 % 11.7-14.4 qomn=482) PLATELET COUNT (BEAKER) (test bfip=231) 228 K/CU MM 150-450 MEAN PLATELET VOLUME (BEAKER) (test ltmc=719) 10.3 fL 9.4-12.3 NUCLEATED RED BLOOD CELLS (BEAKER) (test 0 /100 WBC 0-0 ttkr=048) NEUTROPHILS RELATIVE PERCENT (BEAKER) (test 80 % pzyo=069) LYMPHOCYTES RELATIVE PERCENT (BEAKER) (test 10 % gmfb=680) MONOCYTES RELATIVE PERCENT (BEAKER) (test 9 % bdoi=920) EOSINOPHILS RELATIVE PERCENT (BEAKER) (test 0 % mfcv=293) BASOPHILS RELATIVE PERCENT (BEAKER) (test 0 % wnwc=239) NEUTROPHILS ABSOLUTE COUNT (BEAKER) (test 6.59 K/ L 1.56-6.13 afjb=114) LYMPHOCYTES ABSOLUTE COUNT (BEAKER) (test 0.86 K/ L 1.18-3.74 cjkc=407) MONOCYTES ABSOLUTE COUNT (BEAKER) (test 0.70 K/ L 0.24-0.36 dufi=581) EOSINOPHILS ABSOLUTE COUNT (BEAKER) (test 0.03 K/ L 0.04-0.36 uahn=879) BASOPHILS ABSOLUTE COUNT (BEAKER) (test 0.02 K/ L 0.01-0.08 ssgi=351) IMMATURE GRANULOCYTES-RELATIVE PERCENT (BEAKER) 0 % 0-1 (test nibd=6863)
--- OUTSIDE RECORDS SUMMARY | 2019-03-07 02:48 | XMS REPORT | Clinical Summary ---
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 For more information, please contact:[address] [phone] Code Status Date Activated Date Inactivated Comments [...]
[2019-03-07] MEDS ORDERED: PANTOPRAZOLE 40 MG INJ ONE (03:12)
[2019-03-07] MEDS ORDERED: NA CHLORIDE 0.9% 250 ML ONE ×5 (03:12→16:33)
[2019-03-07] MEDS: NA CHLORIDE 0.9% 1,000 ML IV SCH (03:30)
[2019-03-07] MEDS: PANTOPRAZOLE INJ 80 MG in NA CHLORIDE 0.9% 250 ML IV SCH ×2 (03:32→14:11)
[2019-03-07] MEDS ORDERED: NITROGLYCERIN 0.4 MG/TAB SL PRN ×2 (04:04→08:11)
[2019-03-07] MEDS ORDERED: ACETAMINOPHEN 325 MG TABLET PO PRN ×2 (04:05→08:11)
[2019-03-07] MEDS ORDERED: BISACODYL 10 MG RECTAL SUPP PR PRN (04:07)
[2019-03-07] MEDS ORDERED: DOCUSATE NA 100 MG CAP PO PRN ×2 (04:09→08:11)
[2019-03-07] MEDS ORDERED: ONDANSETRON 4 MG (ODT) TAB PO PRN ×2 (04:17→09:25)
[2019-03-07] MEDS ORDERED: TRAMADOL HCL 50 MG TAB PO PRN ×2 (04:19→08:11)
[2019-03-07] MEDS ORDERED: LOPERAMIDE HCL 2 MG CAPSULE PO PRN (04:22)
[2019-03-07] MEDS ORDERED: HYDROCORTISONE 2.5% RECT CR PR PRN (04:34)
[2019-03-07] MEDS ORDERED: LEVOTHYROXINE SOD 0.05 MG TABLET PO SCH (06:30)
[2019-03-07] MEDS: FE SULF/FA/VIT B COMP & C TAB PO SCH (08:00)
[2019-03-07] MEDS ORDERED: ONDANSETRON HCL PO PRN (08:11)
[2019-03-07] MEDS ORDERED: GABAPENTIN 100 MG CAP PO SCH (09:00)
[2019-03-07] MEDS ORDERED: CYANOCOBALAMIN 1,000 MCG TAB PO SCH (09:00)
[2019-03-07] MEDS ORDERED: VITAMIN D 1000 UNIT TAB PO SCH (09:00)
[2019-03-07] MEDS: FERROUS SULFATE 325 MG TAB PO SCH (09:00)
[2019-03-07] MEDS: CARVEDILOL 6.25 MG TAB PO SCH ×2 (09:00→21:12)
[2019-03-07] MEDS: VITAMIN E 400 IU CAP PO SCH (09:00)
[2019-03-07] MEDS ORDERED: DULOXETINE 30 MG CAP PO SCH (09:00)
[2019-03-07] MEDS: LIDOCAINE 4% PATCH TOP SCH ×2 (09:00→20:43)
[2019-03-07] MEDS: HYDRALAZINE HCL 25 MG TABLET PO SCH ×3 (09:00→21:12)
[2019-03-07] MEDS ORDERED: VALSARTAN 160 MG TAB PO SCH (09:00)
[2019-03-07] MEDS ORDERED: FUROSEMIDE 20 MG TABLET PO SCH (09:00)
[2019-03-07] MEDS: DULOXETINE 30 MG CAP PO SCH (09:00)
[2019-03-07] MEDS ORDERED: AMLODIPINE 10 MG TAB PO SCH ×2 (09:00)
[2019-03-07] MEDS: MAGNESIUM OXIDE 400 MG TAB PO SCH ×2 (09:00→20:43)
[2019-03-07] MEDS: GABAPENTIN 100 MG CAP PO SCH ×2 (09:00→20:43)
[2019-03-07] MEDS ORDERED: CARVEDILOL 6.25 MG TAB PO SCH (09:00)
[2019-03-07] MEDS: SUCRALFATE 1 GM TABLET PO SCH ×4 (09:00→20:43)
[2019-03-07] MEDS ORDERED: LIDOCAINE 4% PATCH TOP SCH (09:00)
[2019-03-07] MEDS ORDERED: PROPOFOL 200 MG/20 ML VIAL IV ONE (11:05)
[2019-03-07] MEDS ORDERED: NA CHLORIDE 0.9% 500 ML ONE ×2 (11:44→14:10)
[2019-03-07] MEDS ORDERED: NS 0.9% VIAL 10 ML ONE (11:45)
[2019-03-07] MEDS ORDERED: Phenylephrine HCl 10 MG/ML 1 ML VIAL ONE (11:45)
--- NOTE | 2019-03-07 12:15 | ENDO RPT ---
[address], [address] EGD PROCEDURE REPORT EXAM DATE: 03/07/2019 PATIENT NAME: Casey Lyons MR#: [id number] BIRTHDATE: 1935 ATTENDING: Jaspal Painter Dr STATUS: inpatient SERVICE CENTER MANAGER: Hoda Amado RN and Loni Guido INDICATIONS: The patient is a 83 yr old Female here for an EGD due to melenic bleeding >>hematochezia, mid epigastric abdominal pain, left lower quadrant abdominal pain, and anemia PROCEDURE PERFORMED: EGD with biopsy MEDICATIONS: Per Anesthesia. TOPICAL ANESTHETIC: none CONSENT: The patient understands the risks and benefits of the procedure and understands that these risks include, but are not limited to: sedation, allergic reaction, infection, perforation and/or bleeding. Alternative means of evaluation and treatment include, among others: physical exam, x-rays, and/or surgical intervention. The patient elects to proceed with this endoscopic procedure. DESCRIPTION OF PROCEDURE: During intra-op preparation period all mechanical medical equipment was checked for proper function. Hand hygiene and appropriate measures for infection prevention was taken. Procedure, possible complications, and alternatives including but not limited to the possibility of bleeding, perforation, tear, infection, sepsis, need for surgery, need for blood transfusion, and anesthesia related complications were explained to the patient. After the risks, benefits and alternatives of the procedure were thoroughly explained, Informed consent was verified, confirmed and timeout was successfully executed by the treatment team. The patient was placed in the left lateral position. The patient was anesthetized with topical anesthesia. Through the anesthetized oropharyngeal area, the scope was passed without any difficulty. The Pentax [id number] ([id number]) endoscope was introduced through the mouth and advanced to the second portion of the duodenum. Retroflexed views revealed a small hiatal hernia. The gastroscope was then slowly withdrawn and removed. A small hiatal hernia was found Moderate gastritis was found in the body and the antrum of the stomach. Multiple biopsies were obtained and sent to pathology. An ulcer was found in the body of the stomach. Blood was found in the body and the antrum of the stomach. Duodenitis was found in the bulb of the duodenum. ADVERSE EVENTS: There were no complications. IMPRESSIONS: 1. Small hiatal hernia 2. Moderate gastritis in the body and the antrum of the stomach 3. 3 mm shallow clean-based ulcer in the body of the stomach 4. Moderate amount of dark heme and small amount of heme stained retained food in the body and the antrum of the stomach >> bulb 5. Duodenitis in the bulb of the duodenum RECOMMENDATIONS: 1. await biopsy results 2. acid suppression therapy REPEAT EXAM: Jaspal Painter Dr eSigned: Jaspal Painter Dr 03/07/2019 12:15 PM cc: Gurdeep Koehler CPT CODES: ICD9 CODES: PATIENT NAME: Casey Lyons MR#: [id number]
[2019-03-07] MEDS ORDERED: NA CHLORIDE 0.9% 500 ML IV ONE (15:00)
[2019-03-07] MEDS: TAMSULOSIN 0.4 MG SR CAP PO SCH (20:42)
[2019-03-07] MEDS: ATORVASTATIN 80 MG TAB PO SCH (20:43)
[2019-03-07] MEDS: FORMULATION-R RECTAL 30GM PR SCH (20:44)
[2019-03-07] MEDS ORDERED: TAMSULOSIN 0.4 MG SR CAP PO SCH (21:00)
[2019-03-07] MEDS ORDERED: ATORVASTATIN 80 MG TAB PO SCH (21:00)
--- NOTE | 2019-03-07 21:48 | HP ---
Date of Admission: 03/07/2019 Reason For Admission To Icu: Acute GI bleed. 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 She comes to rehab for therapy. She was doing really good until last night, started to have melenic stool being on anticoagulation for thromboembolic even ts. Hemoglobin dropped down to 6.2. She was transferred to ICU. 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 Surgical History: Carotid stenosis, endarterectomy in 2000, hysterectomy, left PVD, femoral-poplitea l bypass surgery in the last 1 year. Social History: Former smoker. Medications: Currently she is on amlodipine 10 mg once a day, Atorvastatin 80 mg once a day, carvedi lol 6.25 mg p.o. b.i.d., duloxetine 30 mg once a day, Lasix 20 mg once a day, hydralazine 25 mg p.o. t.i.d., levothyroxine 0.05 mg once a day. Her anticoagulation has been discontinued, which was Xarel to and baby aspirin. She is also on tamsulosin for urinary retention, valsartan for blood pressure 3 20 mg once a day. Physical Examination: Vital Signs: Blood pressure 125/40, pulse 70, O2 saturation 97%. HEENT: No JVD. No carotid bruit. She is pale with anemia. Chest: Clear. Heart: Regular. Abdomen: No guarding, no rebound, no rigidity. Neurologic: She is intact. Assessment And Plan: 1.Severe anemia. 2.Gastrointestinal bleed. Dr. Painter consulted, Protonix IV. 3.Thromboembolic events from atrial fibrillation and PVD on the left leg. I talked to patient's son and explained to him that without anticoagulation she is at risk of thromboembolic events. Unfortun ately, we cannot avoid that risk at this point, informed to him smoking related complications as desc ribed above. 4.Atrial fibrillation, currently stable. 5.Diabetes, stable. 6.Hypertension, currently she is having low blood pressure. We will modify medications to hold them until needed to be given. Prognosis overall guarded. DWIGHT/OZZY Voice ID: [id number]
[2019-03-07 22:53] LABS: Absolute Lymphocytes (CBC) 1.8 K/uL (0.7-4.9); Basophils % 0.6 % (0-1.3); Hematocrit 23.6 % (36.0-45.0); Lymphocytes % 10.1 % (15.3-44.8); MPV 9.4 fL (7.6-11.3); RBC Red Blood Cell Count 2.67 M/uL (3.86-4.86)
[2019-03-08] MEDS: PANTOPRAZOLE INJ 80 MG in NA CHLORIDE 0.9% 250 ML IV SCH ×3 (00:14→19:50)
[2019-03-08] MEDS: LEVOTHYROXINE SOD 0.05 MG TABLET PO SCH (05:33)
[2019-03-08 07:03] LABS: Absolute Lymphocytes (CBC) 1.4 K/uL (0.7-4.9); Basophils % 0.4 % (0-1.3); Hematocrit 19.9 % (36.0-45.0); Lymphocytes % 11.3 % (15.3-44.8); MPV 9.1 fL (7.6-11.3)
[2019-03-08 07:17] LABS: Potassium 4.1 mmol/L (3.5-5.1)
[2019-03-08] MEDS ORDERED: NA CHLORIDE 0.9% 250 ML ONE (08:56)
[2019-03-08] MEDS: CARVEDILOL 6.25 MG TAB PO SCH ×2 (09:00→21:09)
[2019-03-08] MEDS: AMLODIPINE 10 MG TAB PO SCH (09:00)
[2019-03-08] MEDS: FORMULATION-R RECTAL 30GM PR SCH ×2 (09:00→21:00)
[2019-03-08] MEDS: HYDRALAZINE HCL 25 MG TABLET PO SCH ×3 (09:00→21:09)
[2019-03-08] MEDS: LIDOCAINE 4% PATCH TOP SCH ×2 (09:00→21:09)
[2019-03-08] MEDS: FE SULF/FA/VIT B COMP & C TAB PO SCH (09:51)
[2019-03-08] MEDS: GABAPENTIN 100 MG CAP PO SCH ×2 (09:52→21:09)
[2019-03-08] MEDS: MAGNESIUM OXIDE 400 MG TAB PO SCH ×2 (09:52→21:09)
[2019-03-08] MEDS: SUCRALFATE 1 GM TABLET PO SCH ×4 (09:52→21:10)
[2019-03-08] MEDS: FERROUS SULFATE 325 MG TAB PO SCH (09:53)
[2019-03-08] MEDS: VITAMIN E 400 IU CAP PO SCH (09:54)
[2019-03-08] MEDS: DULOXETINE 30 MG CAP PO SCH (09:54)
--- NOTE | 2019-03-08 17:13 | PN ---
Subjective: Ms. Lyons is weak today. She is pale. Her hemoglobin is 6.7, the blood recorded this morning. She denies any chest pain, nausea, vomiting. Objective: Vital Signs: Blood pressure is 97/42, pulse is 68. Neck: No JVD. No carotid bruits. Skin: Pallor. Abdomen: No guarding. No rebound. No rigidity. Investigations: Hemoglobin 6.7, hematocrit 19, white count 12,000. BUN 57, creatinine 1.13. Medications: Have been reviewed. Assessment And Plan: 1.Upper gastrointestinal bleed. Dr. Painter has found her to have multiple gastric ulcers. She was on anticoagulation and baby aspirin for peripheral vascular disease and thromboembolic event. Curren tly, she is stable. Her hemoglobin stabilizing over the last couple days. She will need 2 more unit s of blood transfusions. 2.She has had atrial fibrillation in the past and now can not take anticoagulation. She is at risk of cerebrovascular accident or embolism vascular on a noncerebral basis. 3.Hypertension. Currently, low blood pressure on medications, but on hold at this point. DWIGHT/OZZY Voice ID: [id number] Report ID: [id number]
[2019-03-08] MEDS ORDERED: MAGNESIUM CITRATE 300 ML BOT PO SCH (19:00)
[2019-03-08] MEDS ORDERED: GOLYTELY 4000 ML PO SCH (19:00)
[2019-03-08] MEDS: NA CHLORIDE 0.9% 1,000 ML IV SCH ×2 (19:27)
[2019-03-08] MEDS: METOCLOPRAMIDE 10 MG/2mL INJ IV SCH (19:49)
[2019-03-08] MEDS: TAMSULOSIN 0.4 MG SR CAP PO SCH (21:09)
[2019-03-08] MEDS: ATORVASTATIN 80 MG TAB PO SCH (21:10)
[2019-03-08 21:14] LABS: Hematocrit 33.2 % (36.0-45.0)
[2019-03-09] MEDS: METOCLOPRAMIDE 10 MG/2mL INJ IV SCH ×2 (01:03→06:26)
[2019-03-09 05:47] LABS: Magnesium 2.5 mg/dL (1.8-2.4); Potassium 3.6 mmol/L (3.5-5.1)
[2019-03-09 06:09] LABS: Absolute Lymphocytes (CBC) 1.4 K/uL (0.7-4.9); Basophils % 0.5 % (0-1.3); Hematocrit 28.7 % (36.0-45.0); Lymphocytes % 11.4 % (15.3-44.8); MPV 8.7 fL (7.6-11.3); RBC Red Blood Cell Count 3.24 M/uL (3.86-4.86)
[2019-03-09] MEDS: PANTOPRAZOLE INJ 80 MG in NA CHLORIDE 0.9% 250 ML IV SCH ×2 (06:23→16:27)
[2019-03-09] MEDS: LEVOTHYROXINE SOD 0.05 MG TABLET PO SCH (06:28)
[2019-03-09] MEDS: FE SULF/FA/VIT B COMP & C TAB PO SCH (08:00)
[2019-03-09] MEDS: GABAPENTIN 100 MG CAP PO SCH ×2 (08:44→21:04)
[2019-03-09] MEDS: HYDRALAZINE HCL 25 MG TABLET PO SCH ×3 (08:44→21:03)
[2019-03-09] MEDS: SUCRALFATE 1 GM TABLET PO SCH ×4 (08:44→21:06)
[2019-03-09] MEDS: MAGNESIUM OXIDE 400 MG TAB PO SCH ×2 (08:44→21:04)
[2019-03-09] MEDS: DULOXETINE 30 MG CAP PO SCH (09:00)
[2019-03-09] MEDS: CARVEDILOL 6.25 MG TAB PO SCH ×2 (09:00→21:03)
[2019-03-09] MEDS: FORMULATION-R RECTAL 30GM PR SCH ×2 (09:00→20:36)
[2019-03-09] MEDS: VITAMIN E 400 IU CAP PO SCH (09:00)
[2019-03-09] MEDS: FERROUS SULFATE 325 MG TAB PO SCH (09:00)
[2019-03-09] MEDS: AMLODIPINE 10 MG TAB PO SCH (11:39)
[2019-03-09] MEDS ORDERED: Ringers Lactate 1,000 ML IV ONE (12:32)
[2019-03-09] MEDS ORDERED: LIDOCAINE 1% MPF 5 ML VIAL ONE (13:29)
[2019-03-09] MEDS ORDERED: PROPOFOL 200 MG/20 ML VIAL IV ONE (13:29)
--- NOTE | 2019-03-09 14:06 | ENDO RPT ---
[address], [address] COLONOSCOPY PROCEDURE REPORT EXAM DATE: 03/09/2019 PATIENT NAME: Casey Lyons MR #: [id number] BIRTHDATE: 1935 ATTENDING: Jaspal Painter Dr STATUS: outpatient HI TEACHER: Jennifer Neri RN, Giovanna Snider RN, and Salvador Allen RN INDICATIONS: The patient is a 83 yr old Female here for a colonoscopy due to hematochezia, melenic bleeding, and anemia PROCEDURE PERFORMED: Colonoscopy with biopsy MEDICATIONS: Per Anesthesia. ESTIMATED BLOOD LOSS: None CONSENT: The patient understands the risks and benefits of the procedure and understands that these risks include, but are not limited to: sedation, allergic reaction, infection, perforation and/or bleeding. Alternative means of evaluation and treatment include, among others: physical exam, x-rays, and/or surgical intervention. The patient elects to proceed with this endoscopic procedure. DESCRIPTION OF PROCEDURE: During intra-op preparation period all mechanical medical equipment was checked for proper function. Hand hygiene and appropriate measures for infection prevention was taken. Procedure, possible complications, alternatives including, but not limited to possibility of bleeding, perforation, tear, infection, sepsis, need for surgery, need for blood transfusion, were explained to the patient. After the risks, benefits and alternatives of the procedure were thoroughly explained, Informed consent was verified, confirmed and timeout was successfully executed by the treatment team. The patient was placed in the left lateral position. A digital rectal exam was performed and revealed external hemorrhoids and A digital rectal exam was performed and revealed several skin tags. After appropriate level of anesthesia, the scope was passed. The [id number] ([id number]) endoscope was introduced through the anus and advanced to the cecum, which was identified by both the appendix and ileocecal valve. The quality of the prep was fair. The instrument was then slowly withdrawn as the colon was fully examined. Scope withdrawal time was 9 minutes. COLON FINDINGS: Multiple ranging between 5-9mm in size non-bleeding, irregular shaped, serpiginous and clean-based ulcers with surrounding edema were found throughout the entire examined colon. A smooth sessile polyp measuring 5 mm in size was found in the sigmoid colon. A polypectomy was performed with cold forceps. Mild diverticulosis was noted in the sigmoid colon. No bleeding was noted from the diverticulosis. Small internal and external hemorrhoids were found. Retroflexed views revealed no abnormalities. The scope was then completely withdrawn from the patient and the procedure terminated. ADVERSE EVENTS: There were no complications. IMPRESSIONS: 1. Multiple serpiginous ulcers ranging between 5-15 mm in size ulcers throughout the entire examined colon, predominantly in the descending colon and rectum / anal canal, s/p biopsies of the descending colon, sigmoid colon, rectum 2. 5 mm sessile polyp in the sigmoid colon; polypectomy was performed with cold forceps 3. Mild diverticulosis in the sigmoid colon 4. Small internal and external hemorrhoids 5. Intubation to cecum RECOMMENDATIONS: 1. await biopsy results 2. avoid NSAIDS 3. check IBD panel 4. check stool studies 5. IV antibiotics RECALL: Return in 3 year(s) for Colonoscopy. Jaspal Painter Dr eSigned: Jaspal Painter Dr 03/09/2019 2:06 PM cc: Christian Dawson CPT CODES: ICD9 CODES: PATIENT NAME: Casey Lyons MR#: [id number]
[2019-03-09] MEDS: NA CHLORIDE 0.9% 1,000 ML IV SCH (16:45)
--- NOTE | 2019-03-09 18:52 | PN ---
Subjective: Ms. Lyons is in ICU for GI bleed, where she was transferred from rehab down to floor. She had upper GI bleed with mild melenic stool, required about 5 units of packed RBC's. Objective: General: On examination today, she is lot more comfortable. She is much more awake and back to her feisty self. VITAL SIGNS: Blood pressure has come over to 150/60. Chest: Clear. Heart: Regular. Abdomen: No guarding, no rebound, no rigidity. Assessment And Plan: 1.Gastrointestinal bleed, most likely upper gastrointestinal bleed. Continue Protonix IV. Dr. Elise portillo is doing colonoscopy also, which will be today. 2.She had a vascular disease, multiple locations, carotids, coronary, and legs. She is on lifetime anticoagulation, but she bled profusely, so without anticoagulation risk of thromboembolic event, aga in her prognosis remains overall guarded. Currently, she is stable. RVD/MODL Voice ID: [id number] Report ID: [id number]
[2019-03-09] MEDS: ATORVASTATIN 80 MG TAB PO SCH (21:03)
[2019-03-09] MEDS: LIDOCAINE 4% PATCH TOP SCH (21:03)
[2019-03-09] MEDS: TAMSULOSIN 0.4 MG SR CAP PO SCH (21:04)
[2019-03-09] MEDS ORDERED: SUCRALFATE 1 GM TABLET ONE (21:08)
[2019-03-10] MEDS ORDERED: NA CHLORIDE 0.9% 250 ML ONE (01:50)
[2019-03-10] MEDS ORDERED: PANTOPRAZOLE 40 MG INJ ONE (01:50)
[2019-03-10] MEDS: PANTOPRAZOLE INJ 80 MG in NA CHLORIDE 0.9% 250 ML IV SCH ×2 (02:32→11:52)
[2019-03-10] MEDS: LEVOTHYROXINE SOD 0.05 MG TABLET PO SCH (05:57)
[2019-03-10 06:04] VITALS: BMI 23.4
[2019-03-10] MEDS: FE SULF/FA/VIT B COMP & C TAB PO SCH (08:30)
[2019-03-10] MEDS: FERROUS SULFATE 325 MG TAB PO SCH (08:30)
[2019-03-10] MEDS: HYDRALAZINE HCL 25 MG TABLET PO SCH ×3 (08:31→21:28)
[2019-03-10] MEDS: AMLODIPINE 10 MG TAB PO SCH (08:31)
[2019-03-10] MEDS: DULOXETINE 30 MG CAP PO SCH (08:31)
[2019-03-10] MEDS: GABAPENTIN 100 MG CAP PO SCH ×2 (08:32→21:27)
[2019-03-10] MEDS: CARVEDILOL 6.25 MG TAB PO SCH ×2 (08:33→21:28)
[2019-03-10] MEDS: MAGNESIUM OXIDE 400 MG TAB PO SCH ×2 (08:33→21:00)
[2019-03-10] MEDS: VITAMIN E 400 IU CAP PO SCH (08:33)
[2019-03-10] MEDS: FORMULATION-R RECTAL 30GM PR SCH ×2 (08:35→21:30)
[2019-03-10] MEDS: SUCRALFATE 1 GM TABLET PO SCH (09:00)
[2019-03-10] MEDS ORDERED: SUCRALFATE 1 GM TABLET PO SCH (09:00)
[2019-03-10] MEDS: NA CHLORIDE 0.9% 1,000 ML IV SCH (11:52)
--- NOTE | 2019-03-10 18:09 | P.PN ---
Subjective Date of Service: 03/10/19 Chief Complaint: Melena > hematochezia, anemia, abdominal pain Subjective: Improving (Less abdominal pain, melena, hematochezia.) Review of Systems 10-point ROS is otherwise unremarkable General: Weakness, Malaise Gastrointestinal: Abdominal Pain (less) Physical Examination - Vital Signs Temperature: 97.9 F Blood Pressure: 139/60 Pulse: 57 Respirations: 18 Pulse Ox (%): 97 - Physical Exam General: Alert, In no apparent distress, Oriented x3, Cooperative HEENT: Atraumatic, Normocephalic, PERRLA, EOMI Neck: Supple Respiratory: Normal air movement Cardiovascular: Normal pulses Gastrointestinal: Soft and benign, No tenderness, No rebound, No guarding Neurological: Normal speech Assessment And Plan - Current Problems (Diagnosis) (1) Colitis Current Visit: Yes Status: Acute (2) History of Crohn's disease Current Visit: Yes Status: Acute Comment: Untreated. Not on any IBD medications for many years it appears. Told biopsies at outside hospital did not reveal IBD. But colonoscopy here revealed deep serpiginous ulcer in colon. (3) Melena Current Visit: Yes Status: Acute (4) Hematochezia Current Visit: Yes Status: Acute (5) Anemia Onset Date: 02/07/15 Current Visit: No Status: Acute (6) CAD (coronary artery disease) Current Visit: No Status: Acute (7) Chronic renal disease Onset Date: 05/11/15 Current Visit: No Status: Acute (8) History of femoropopliteal bypass Current Visit: No Status: Acute (9) Thromboembolism of lower extremity artery Current Visit: No Status: Acute - Plan REC: 1) switch PPI IV drip to po bid dosing 2) start Cipro / Flagyl IV 3) start Solumedrol IV 4) monitor labs 5) get ready for possible biologic therapy for untreated IBD (e.g. Crohn's disease) 6) await colonoscopy pathology
[2019-03-10] MEDS ORDERED: METHYLPRED NA SUC 40 MG in NA CHLORIDE 0.9% 200 ML IV SCH (19:00)
[2019-03-10] MEDS ORDERED: HYDROCORTISONE SUC 100 MG INJ IV ONE (19:00)
[2019-03-10] MEDS: METRONIDAZOLE 500mg IVPB 500 MG/100 ML BAG IV SCH (21:19)
[2019-03-10] MEDS: LIDOCAINE 4% PATCH TOP SCH (21:24)
[2019-03-10] MEDS: METHYLPRED NA SUC 40 MG in NA CHLORIDE 0.9% 200 ML IV SCH (21:26)
[2019-03-10] MEDS: CIPROFLOXACIN 400mg IV 400 MG/200 ML BAG IV SCH (21:27)
[2019-03-10] MEDS: ATORVASTATIN 80 MG TAB PO SCH (21:27)
[2019-03-10] MEDS: TAMSULOSIN 0.4 MG SR CAP PO SCH (21:28)
[2019-03-11] MEDS: METRONIDAZOLE 500mg IVPB 500 MG/100 ML BAG IV SCH ×3 (01:22→16:42)
--- NOTE | 2019-03-11 02:46 | PN ---
Subjective: Ms. Lyons is doing a lot better. Denies any chest pain, nausea, or vomiting. There is no melena anymore. No hematemesis. Physical Examination: Vital Signs: Blood pressure 139/60. HEENT: No JVD. No carotid bruits. HEART: Regular. ABDOMEN: No guarding, no rebound, no rigidity. [place] Data: [place] [address], hemoglobin 10.1, hematocrit 28, BUN 32. Assessment And Plan: 1.Upper gastrointestinal bleed, currently stable. She is on IV Protonix. On colonoscopy, she also had a couple of ulcers but those are most likely probably nonbleeding ulcers. Her main problem was u pper gastrointestinal. Unfortunately, she developed bleeding on top of being on Protonix and that is why it is currently difficult to continue her anticoagulation. At this point, she becomes at higher risk of gastrointestinal bleed again. 2.Dr. Painter is giving her IV Solu-Medrol for colonic ulcers. Biopsy report of which is pending. 3.Thromboembolic events in the past, multiple vascular damage in the past. Carotid, coronary, and l eg all have vascular damage in this lady who has been a former smoker. RVD/MODL Voice ID: [id number] Report ID: [id number]
[2019-03-11 06:00] LABS: Absolute Lymphocytes (CBC) 1.1 K/uL (0.7-4.9); Basophils % 0.3 % (0-1.3); Hematocrit 27.4 % (36.0-45.0); Lymphocytes % 17.1 % (15.3-44.8); MPV 9.2 fL (7.6-11.3); RBC Red Blood Cell Count 3.03 M/uL (3.86-4.86)
[2019-03-11 06:14] LABS: Albumin 2.1 g/dL (3.4-5.0); Bilirubin Total 0.5 mg/dL (0.2-1.0); Phosphorus 2.9 mg/dL (2.5-4.9); Potassium 3.4 mmol/L (3.5-5.1); Protein, Total 4.2 g/dL (6.4-8.2)
[2019-03-11] MEDS: LEVOTHYROXINE SOD 0.05 MG TABLET PO SCH (06:16)
[2019-03-11] MEDS: MAGNESIUM OXIDE 400 MG TAB PO SCH ×2 (09:00→20:56)
[2019-03-11] MEDS: GABAPENTIN 100 MG CAP PO SCH ×2 (09:52→20:56)
[2019-03-11] MEDS: AMLODIPINE 10 MG TAB PO SCH (09:53)
[2019-03-11] MEDS: VITAMIN E 400 IU CAP PO SCH (09:53)
[2019-03-11] MEDS: FE SULF/FA/VIT B COMP & C TAB PO SCH (09:53)
[2019-03-11] MEDS: PANTOPRAZOLE 40MG TABLET PO SCH (09:54)
[2019-03-11] MEDS: CARVEDILOL 6.25 MG TAB PO SCH ×2 (09:54→20:55)
[2019-03-11] MEDS: DULOXETINE 30 MG CAP PO SCH (09:55)
[2019-03-11] MEDS: FERROUS SULFATE 325 MG TAB PO SCH (09:55)
[2019-03-11] MEDS: HYDRALAZINE HCL 25 MG TABLET PO SCH ×3 (09:56→20:55)
[2019-03-11] MEDS: FORMULATION-R RECTAL 30GM PR SCH ×2 (09:56→21:11)
[2019-03-11] MEDS: NA CHLORIDE 0.9% 1,000 ML IV SCH (09:59)
[2019-03-11] MEDS: CIPROFLOXACIN 400mg IV 400 MG/200 ML BAG IV SCH ×2 (10:31→20:56)
[2019-03-11] MEDS: TAMSULOSIN 0.4 MG SR CAP PO SCH (20:56)
[2019-03-11] MEDS: LIDOCAINE 4% PATCH TOP SCH (20:57)
[2019-03-11] MEDS: ATORVASTATIN 80 MG TAB PO SCH (20:59)
[2019-03-11] MEDS: METHYLPRED NA SUC 40 MG in NA CHLORIDE 0.9% 200 ML IV SCH (21:04)
[2019-03-12] MEDS: METRONIDAZOLE 500mg IVPB 500 MG/100 ML BAG IV SCH ×3 (00:20→16:34)
--- NOTE | 2019-03-12 01:20 | PN ---
Subjective: Ms. Lyons is doing a lot better. She has not had any chest pain, nausea, or vomiting. Has no hematemesis or melena anymore. She has no abdominal pain. Physical Examination: Vital Signs: Blood pressure 142/64, temperature 98.5, pulse 57. HEENT: No JVD. No carotid bruits. Chest: Clear. Heart: Regular. Abdomen: No guarding, no rebound, no rigidity. Laboratory Examination: Hemoglobin 9.6, hematocrit 27. Sodium 138, potassium 3.4, chloride 109, BUN 13, creatinine 0.99. Albumin is slightly low at 2.1. Assessment And Plan: 1.Gastrointestinal bleed, most likely upper, from multiple ulcers. She is on Protonix IV and Dr. Kenyon cohen has given her IV Solu-Medrol for her colon ulcers. He is not exactly sure what is the cause of it. The pathology report is pending. She is also on Flagyl IV and Cipro IV. 2.Thromboembolism, multiple vascular damage areas in the past, carotid, heart, and legs. She will b e without anticoagulation at this point until Dr. Painter clears her to get her back on the Eliquis. Prognosis is overall guarded. Patient does not have diabetes. RVD/MODL Voice ID: [id number] Report ID: [id number]
[2019-03-12] MEDS: LEVOTHYROXINE SOD 0.05 MG TABLET PO SCH (05:29)
[2019-03-12] MEDS: NA CHLORIDE 0.9% 1,000 ML IV SCH (05:30)
[2019-03-12] MEDS: FORMULATION-R RECTAL 30GM PR SCH ×2 (09:00→22:10)
[2019-03-12] MEDS: MAGNESIUM OXIDE 400 MG TAB PO SCH ×2 (09:00→22:05)
[2019-03-12] MEDS ORDERED: POTASSIUM 25 MEQ EFFERV TAB PO ONE (09:00)
[2019-03-12] MEDS: POLYVINYL ALCOHOL 1.4% 15 ML EACH EYE SCH ×2 (09:00→22:06)
[2019-03-12] MEDS: VITAMIN E 400 IU CAP PO SCH (09:14)
[2019-03-12] MEDS: HYDRALAZINE HCL 25 MG TABLET PO SCH ×3 (09:14→22:06)
[2019-03-12] MEDS: CARVEDILOL 6.25 MG TAB PO SCH ×2 (09:14→22:05)
[2019-03-12] MEDS: DULOXETINE 30 MG CAP PO SCH (09:14)
[2019-03-12] MEDS: FERROUS SULFATE 325 MG TAB PO SCH (09:14)
[2019-03-12] MEDS: GABAPENTIN 100 MG CAP PO SCH ×2 (09:14→22:06)
[2019-03-12] MEDS: PANTOPRAZOLE 40MG TABLET PO SCH (09:14)
[2019-03-12] MEDS: FE SULF/FA/VIT B COMP & C TAB PO SCH (09:15)
[2019-03-12] MEDS: AMLODIPINE 10 MG TAB PO SCH (09:16)
[2019-03-12] MEDS: CIPROFLOXACIN 400mg IV 400 MG/200 ML BAG IV SCH ×2 (09:17→22:07)
[2019-03-12 14:36] LABS: Absolute Lymphocytes (CBC) 1.1 K/uL (0.7-4.9); Basophils % 0.1 % (0-1.3); Hematocrit 32.8 % (36.0-45.0); Lymphocytes % 13.5 % (15.3-44.8); MPV 9.1 fL (7.6-11.3); RBC Red Blood Cell Count 3.57 M/uL (3.86-4.86)
--- NOTE | 2019-03-12 17:51 | P.PN ---
Subjective Date of Service: 03/12/19 Chief Complaint: Melena > hematochezia, anemia, abdominal pain Subjective: Improving (No blood seen by patient. Colonoscopy pathology negative. Hgb up from 9.6 yesterday to 11.3 today! She feels much better as confirmed by her sister and [id number] in room now. No abdominal pain, N/ V. She is hungry and wants more than the clear liquids.) Review of Systems 10-point ROS is otherwise unremarkable General: Weakness (Improved.) Physical Examination - Vital Signs Temperature: 97.7 F Blood Pressure: 132/58 Pulse: 59 Respirations: 20 Pulse Ox (%): 96 - Physical Exam General: Alert, In no apparent distress, Oriented x3, Cooperative HEENT: Atraumatic, Normocephalic, PERRLA, EOMI Neck: Supple Respiratory: Normal air movement Cardiovascular: Normal pulses Gastrointestinal: Soft and benign, No tenderness, No rebound, No guarding Neurological: Normal speech, Normal strength at 5/5 x4 extr - Studies Laboratory Data (last 24 hrs) 03/12/19 14:20: Sodium 137, Potassium 4.0, BUN 9, Creatinine 1.16, Glucose 147 H 03/12/19 14:20: WBC 7.9 D, Hgb 11.3 L, Hct 32.8 L D, Plt Count 186 D Assessment And Plan - Current Problems (Diagnosis) (1) Colitis Current Visit: Yes Status: Acute (2) History of Crohn's disease Current Visit: Yes Status: Acute Comment: Untreated. Not on any IBD medications for many years it appears. Told biopsies at outside hospital did not reveal IBD. But colonoscopy here revealed deep serpiginous ulcer in colon. (3) Melena Current Visit: Yes Status: Acute Comment: Resolved. (4) Hematochezia Current Visit: Yes Status: Acute Comment: Resolved. (5) Anemia Onset Date: 02/07/15 Current Visit: No Status: Acute Comment: Much improved today. Hgb up from 9.6 yesterday to 11.3 today! (6) CAD (coronary artery disease) Current Visit: No Status: Acute (7) Chronic renal disease Onset Date: 05/11/15 Current Visit: No Status: Acute (8) History of femoropopliteal bypass Current Visit: No Status: Acute (9) Thromboembolism of lower extremity artery Current Visit: No Status: Acute - Plan REC: 1) continue PPI po bid dosing 2) continue Cipro / Flagyl IV 3) continue Solumedrol IV 4) monitor labs 5) advance diet to FLs 6) small bowel series
--- NOTE | 2019-03-12 18:40 | PN ---
Subjective: Ms. Lyons is doing good. She has no new complaints. She has no chest pain, nausea, or vomiting. She has edema slightly diffusely. Physical Examination: Vital Signs: Her blood pressure is 167/72, pulse is 72, afebrile. Chest: Clear. Heart: Irregular. Abdomen: No guarding. No rebound. No rigidity. Laboratory Data: White count of 6100, hemoglobin 9.6, hematocrit 27. Sodium 138, potassium 3.4, chl oride 109, bicarb 29, anion gap of 9. Assessment And Plan: 1.Severe gastrointestinal bleed, currently off anticoagulation. I will wait for Dr. Painter to clear her back on anticoagulation, which will be risk at this point, and without anticoagulation, she is a t risk of stroke. 2.Multiple vascular changes in the past, carotid stenosis bilateral, coronary artery disease, and pe ripheral vascular disease. Prognosis is overall guarded. DWIGHT/MODL Voice ID: [id number] Report ID: [id number]
[2019-03-12] MEDS: ATORVASTATIN 80 MG TAB PO SCH (21:00)
[2019-03-12] MEDS: METHYLPRED NA SUC 40 MG in NA CHLORIDE 0.9% 200 ML IV SCH (22:03)
[2019-03-12] MEDS: TAMSULOSIN 0.4 MG SR CAP PO SCH (22:06)
[2019-03-12] MEDS: LIDOCAINE 4% PATCH TOP SCH (22:07)
[2019-03-12] MEDS: ENSURE CLEAR 200 ML CAN PO SCH (22:08)
[2019-03-13] MEDS: METRONIDAZOLE 500mg IVPB 500 MG/100 ML BAG IV SCH ×3 (01:00→17:22)
[2019-03-13 06:28] LABS: Absolute Lymphocytes (CBC) 0.7 K/uL (0.7-4.9); Basophils % 0.1 % (0-1.3); Hematocrit 29.6 % (36.0-45.0); Lymphocytes % 11.6 % (15.3-44.8); RBC Red Blood Cell Count 3.22 M/uL (3.86-4.86)
[2019-03-13 06:38] LABS: Potassium 3.9 mmol/L (3.5-5.1)
[2019-03-13 07:41] LABS: Blood Morphology Comment NOT SEEN (NOT SEEN); Platelet Estimate ADEQ; Urine White Blood Cell Casts OK
[2019-03-13] MEDS: LEVOTHYROXINE SOD 0.05 MG TABLET PO SCH (07:46)
[2019-03-13] MEDS: FORMULATION-R RECTAL 30GM PR SCH ×2 (09:00→21:00)
[2019-03-13] MEDS ORDERED: POTASSIUM CL SA 10 MEQ TAB PO ONE (09:00)
[2019-03-13] MEDS: VITAMIN E 400 IU CAP PO SCH (09:43)
[2019-03-13] MEDS: DULOXETINE 30 MG CAP PO SCH (09:44)
[2019-03-13] MEDS: FE SULF/FA/VIT B COMP & C TAB PO SCH (09:45)
[2019-03-13] MEDS: CARVEDILOL 6.25 MG TAB PO SCH (09:45)
[2019-03-13] MEDS: MAGNESIUM OXIDE 400 MG TAB PO SCH ×2 (09:45→20:48)
[2019-03-13] MEDS: GABAPENTIN 100 MG CAP PO SCH ×2 (09:46→20:48)
[2019-03-13] MEDS: PANTOPRAZOLE 40MG TABLET PO SCH (09:46)
[2019-03-13] MEDS: AMLODIPINE 10 MG TAB PO SCH (09:46)
[2019-03-13] MEDS: HYDRALAZINE HCL 25 MG TABLET PO SCH ×3 (09:47→20:48)
[2019-03-13] MEDS: FERROUS SULFATE 325 MG TAB PO SCH (09:47)
[2019-03-13] MEDS: CIPROFLOXACIN 400mg IV 400 MG/200 ML BAG IV SCH ×2 (09:48→21:40)
[2019-03-13] MEDS: ENSURE CLEAR 200 ML CAN PO SCH ×2 (09:48→20:53)
[2019-03-13] MEDS: POLYVINYL ALCOHOL 1.4% 15 ML EACH EYE SCH ×2 (11:40→20:50)
--- NOTE | 2019-03-13 13:30 | PN ---
Subjective: Feeling a lot better, much more awake, much more stronger. Denies any chest pain. No n ausea or vomiting. She was able to walk about 200 feet with a walker. Physical Examination: Vital Signs: Blood pressure 176/71. Pulse is 93. Temperature is afebrile. HEENT: No JVD. No carotid bruits. Extremities: Diffuse edema from hypoalbuminemia from acute illness. Otherwise, she has no signs of any thromboembolism currently. Laboratory Data: Hemoglobin is 10.1. Her chem-7 is normal. Albumin was low at 2.1 a couple of days ago. Assessment And Plan: Severe GI bleed, upper and lower. Continue current medications Cipro, Flagyl, and receives hydrocortisone suppositories by Dr. Painter. I think it is time to discontinue steroid I V. We will let Dr. Painter decide on this. Prognosis: Overall guarded. The patient should be going home from the here because she was clinically stable and able to ambulate . RVD/MODL Voice ID: [id number] Report ID: [id number]
[2019-03-13] MEDS: NA CHLORIDE 0.9% 1,000 ML IV SCH ×2 (14:42→20:00)
--- NOTE | 2019-03-13 15:53 | P.PN ---
Subjective Date of Service: 03/13/19 Chief Complaint: Melena > hematochezia, anemia, abdominal pain Subjective: Improving (Feels well today, wants solid food. Hgb 9.6 to 11.3 to 10.4 today. Stool dark but not black. No abdominal pain, N/V/F/C/diarrhea/ constipation.) Review of Systems 10-point ROS is otherwise unremarkable General: Weakness (Improved.) Physical Examination - Vital Signs Temperature: 97.5 F Blood Pressure: 152/66 Pulse: 63 Respirations: 18 Pulse Ox (%): 97 - Physical Exam General: Alert, In no apparent distress, Oriented x3, Cooperative HEENT: Atraumatic, Normocephalic, PERRLA, EOMI Neck: Supple Respiratory: Normal air movement Cardiovascular: Normal pulses Gastrointestinal: Soft and benign, No tenderness, No rebound, No guarding Neurological: Normal speech, Normal strength at 5/5 x4 extr - Studies Laboratory Data (last 24 hrs) 03/13/19 06:09: WBC 5.8 D, Hgb 10.4 L, Hct 29.6 L, Plt Count 158 03/13/19 06:09: Sodium 137, Potassium 3.9, BUN 8, Creatinine 0.98, Glucose 139 H Assessment And Plan - Current Problems (Diagnosis) (1) Colitis Current Visit: Yes Status: Acute (2) History of Crohn's disease Current Visit: Yes Status: Acute Comment: Untreated. Not on any IBD medications for many years it appears. Told biopsies at outside hospital did not reveal IBD. But colonoscopy here revealed deep serpiginous ulcer in colon. (3) Melena Current Visit: Yes Status: Acute Comment: Resolved. (4) Hematochezia Current Visit: Yes Status: Acute Comment: Resolved. (5) Anemia Onset Date: 02/07/15 Current Visit: No Status: Acute Comment: Much improved today. Hgb up from 9.6 to 11.3 to 10.4 today but no blood seen by patient and no other GI symptoms. (6) CAD (coronary artery disease) Current Visit: No Status: Acute (7) Chronic renal disease Onset Date: 05/11/15 Current Visit: No Status: Acute (8) History of femoropopliteal bypass Current Visit: No Status: Acute (9) Thromboembolism of lower extremity artery Current Visit: No Status: Acute - Plan REC: 1) discharge tomorrow on po antibiotics for 10 days and Lialda 2 tab po bid 2) continue PPI po bid dosing 3) continue Cipro / Flagyl IV 4) continue Solumedrol IV 5) monitor labs 6) advance diet to low residue 7) small bowel series & outpatient pillcam
[2019-03-13] MEDS: METHYLPRED NA SUC 40 MG in NA CHLORIDE 0.9% 200 ML IV SCH (20:46)
[2019-03-13] MEDS: ATORVASTATIN 80 MG TAB PO SCH (20:47)
[2019-03-13] MEDS: TAMSULOSIN 0.4 MG SR CAP PO SCH (20:47)
[2019-03-13] MEDS: CARVEDILOL 12.5 MG TAB PO SCH (20:49)
[2019-03-13] MEDS: JUVEN PACKET PO SCH (20:53)
[2019-03-13] MEDS: LIDOCAINE 4% PATCH TOP SCH (21:40)
[2019-03-13] MEDS: MELATONIN 3 MG TABLET PO PRN (21:40)
[2019-03-14] MEDS: METRONIDAZOLE 500mg IVPB 500 MG/100 ML BAG IV SCH ×2 (01:00→10:00)
[2019-03-14] MEDS: LEVOTHYROXINE SOD 0.05 MG TABLET PO SCH (05:41)
[2019-03-14 06:25] LABS: Absolute Lymphocytes (CBC) 0.6 K/uL (0.7-4.9); Hematocrit 30.1 % (36.0-45.0); Lymphocytes % 10.5 % (15.3-44.8); MPV 9.2 fL (7.6-11.3); RBC Red Blood Cell Count 3.26 M/uL (3.86-4.86)
[2019-03-14] MEDS: PANTOPRAZOLE 40MG TABLET PO SCH (08:08)
[2019-03-14] MEDS: FORMULATION-R RECTAL 30GM PR SCH ×2 (09:00→21:00)
[2019-03-14] MEDS ORDERED: POTASSIUM CL SA 10 MEQ TAB PO ONE (09:00)
[2019-03-14] MEDS: DULOXETINE 30 MG CAP PO SCH (09:59)
[2019-03-14] MEDS: AMLODIPINE 10 MG TAB PO SCH (09:59)
[2019-03-14] MEDS: GABAPENTIN 100 MG CAP PO SCH ×2 (09:59→22:11)
[2019-03-14] MEDS: HYDRALAZINE HCL 25 MG TABLET PO SCH ×3 (09:59→22:35)
[2019-03-14] MEDS: CARVEDILOL 12.5 MG TAB PO SCH ×2 (09:59→22:12)
[2019-03-14] MEDS: FE SULF/FA/VIT B COMP & C TAB PO SCH (09:59)
[2019-03-14] MEDS: VITAMIN E 400 IU CAP PO SCH (09:59)
[2019-03-14] MEDS: FERROUS SULFATE 325 MG TAB PO SCH (10:00)
[2019-03-14] MEDS: ENSURE CLEAR 200 ML CAN PO SCH ×2 (10:00→22:17)
[2019-03-14] MEDS: CIPROFLOXACIN 400mg IV 400 MG/200 ML BAG IV SCH (10:00)
[2019-03-14] MEDS: JUVEN PACKET PO SCH ×2 (10:01→22:17)
[2019-03-14] MEDS: POLYVINYL ALCOHOL 1.4% 15 ML EACH EYE SCH ×2 (10:01→22:14)
[2019-03-14] MEDS: MAGNESIUM OXIDE 400 MG TAB PO SCH ×2 (10:02→22:12)
[2019-03-14] MEDS: metroNIDAZOLE 500 MG TABLET PO SCH ×2 (14:00→22:10)
[2019-03-14] MEDS: METHYLPRED NA SUC 40 MG in NA CHLORIDE 0.9% 200 ML IV SCH (21:00)
[2019-03-14] MEDS: ATORVASTATIN 80 MG TAB PO SCH (22:10)
[2019-03-14] MEDS: MELATONIN 3 MG TABLET PO PRN (22:10)
[2019-03-14] MEDS: CIPROFLOXACIN HCL 250 MG TAB PO SCH (22:11)
[2019-03-14] MEDS: TAMSULOSIN 0.4 MG SR CAP PO SCH (22:35)
[2019-03-14] MEDS: LIDOCAINE 4% PATCH TOP SCH (22:35)
--- NOTE | 2019-03-14 23:31 | PN ---
Subjective: Patient is doing great, starting to argue with the family, which is a good sign for her. Does not have any GI bleed. No nausea, vomiting, or diarrhea. Physical Examination: Vital Signs: Blood pressure 158/68, temperature 97.7, pulse is 63, respirations 18, O2 saturation 96 % on room air. In's and out's 1300 in and 1000 out. Chest: Clear. Heart: Regular. Abdomen: No guarding, no rebound, no rigidity. Laboratory Data: White count 5900, hemoglobin 10, hematocrit 30, platelets 190. Assessment/plan: 1.Gastrointestinal bleed, multiple different locations. According Dr. Painter I discussed with, she has multiple gastric ulcers, also multiple colonic ulcers. There is a clinical possibility of ulcera tive colitis, but the biopsy pathology was negative. Also, there is a peptic ulcer disease. Continu e medications per Dr. Painter. 2.Atrial fibrillation, risk for thromboembolism, cannot be given anticoagulation because she had a r ecent major bleeding. 3.Peripheral vascular disease, coronary artery disease and carotid vascular disease. All these are high-risk conditions for this patient without anticoagulation or antiplatelet therapy. I had a long discussion with the patient's family today. They are worried about sending her home alone. They are planning for jail, which will be placed tomorrow. I had talked to the family to final the n [facility] home tomorrow, so we can possibly discharge her tomorrow. Prognosis is guarded. I asked Dr. Painter to give her solid food if it is possible. DWIGHT/LULL Voice ID: [id number] Report ID: [id number]
[2019-03-15] MEDS: LEVOTHYROXINE SOD 0.05 MG TABLET PO SCH (05:43)
[2019-03-15] MEDS: MAGNESIUM OXIDE 400 MG TAB PO SCH ×2 (09:00→21:00)
[2019-03-15] MEDS: POLYVINYL ALCOHOL 1.4% 15 ML EACH EYE SCH ×2 (09:00→21:23)
[2019-03-15] MEDS: FORMULATION-R RECTAL 30GM PR SCH ×2 (09:00→21:24)
[2019-03-15] MEDS: FERROUS SULFATE 325 MG TAB PO SCH (10:18)
[2019-03-15] MEDS: metroNIDAZOLE 500 MG TABLET PO SCH ×3 (10:19→21:21)
[2019-03-15] MEDS: PANTOPRAZOLE 40MG TABLET PO SCH (10:19)
[2019-03-15] MEDS: GABAPENTIN 100 MG CAP PO SCH ×2 (10:19→21:21)
[2019-03-15] MEDS: CIPROFLOXACIN HCL 250 MG TAB PO SCH ×2 (10:19→21:20)
[2019-03-15] MEDS: VITAMIN E 400 IU CAP PO SCH (10:19)
[2019-03-15] MEDS: DULOXETINE 30 MG CAP PO SCH (10:19)
[2019-03-15] MEDS: FE SULF/FA/VIT B COMP & C TAB PO SCH (10:19)
[2019-03-15] MEDS: HYDRALAZINE HCL 25 MG TABLET PO SCH ×3 (10:19→21:23)
[2019-03-15] MEDS: CARVEDILOL 12.5 MG TAB PO SCH ×2 (10:19→21:21)
[2019-03-15] MEDS: AMLODIPINE 10 MG TAB PO SCH (10:20)
[2019-03-15] MEDS: ENSURE CLEAR 200 ML CAN PO SCH ×2 (10:21→21:00)
[2019-03-15] MEDS: JUVEN PACKET PO SCH ×2 (10:21→21:00)
[2019-03-15] MEDS: METHYLPRED NA SUC 40 MG in NA CHLORIDE 0.9% 200 ML IV SCH (21:00)
[2019-03-15] MEDS: ATORVASTATIN 80 MG TAB PO SCH (21:21)
[2019-03-15] MEDS: LIDOCAINE 4% PATCH TOP SCH (21:23)
[2019-03-15] MEDS: TAMSULOSIN 0.4 MG SR CAP PO SCH (21:27)
--- NOTE | 2019-03-16 02:21 | PN ---
Subjective: Patient is feeling lot better and much better in her strength, energy. Has no acute epi sodes of any bleeding or chest pain at this point. Objective: Vital Signs: Blood pressure 134/64. HEENT: No JVD. No carotid bruits. Chest: Clear. Heart: Regular. Abdomen: No guarding, no rebound, no rigidity. Laboratory Examination: White count 7500, hemoglobin 9.3, hematocrit 27. Chem-7 normal. Assessment And Planning: Generalized weakness from acute illness. Family is concerned about her goi ng alone at home. prison has not been approved by insurance company. I was hoping to discharg e her today, but again without approval of insurance company, I cannot do so. She is getting therapy while she is here. Her current medications changes are Protonix once a day and she is on oral antib iotics, Cipro and Flagyl, and Lialda will be given by Dr. Painter. Prognosis guarded. RVD/MODL Voice ID: [id number] Report ID: [id number]
[2019-03-16] MEDS: LEVOTHYROXINE SOD 0.05 MG TABLET PO SCH (06:18)
--- NOTE | 2019-03-16 09:36 | RAD REPORT ---
EXAM DESCRIPTION: RAD - Small Bowel Series - 03/16/2019 9:03 am CLINICAL HISTORY: GI bleed COMPARISON: Small bowel July 2018 FINDINGS: Felt [employer] Packer film shows a nonspecific bowel gas pattern. No obstruction or free air. Dense aortoi liac and mesenteric calcifications are present. Clips are present near the right groin and upper thig h. Gastric size and mucosal fold pattern are normal. No delay in transit of contrast into the small jose l. Small bowel is normal in diameter with no mucosal fold thickening. No intrinsic or extrinsic mass identifiable. Terminal ileum has normal appearance. Transit time to the colon is 1 hour. Patient has a small inguinal hernia. Small bowel extends into the first 2 cm or so of the right ingui nal canal. This is similar to the 1999 study. There is no proximal bowel dilatation at th e hernia and no evidence for wall thickening or edema. IMPRESSION: No small bowel abnormality. Transit time to the colon was 1 hour. Small bowel extends into the proximal aspect of a right inguinal hernia similar to July. No acute findings of the herniated bowel loops or bowel loops proximal to the hernia.
[2019-03-16] MEDS: GABAPENTIN 100 MG CAP PO SCH (10:08)
[2019-03-16] MEDS: AMLODIPINE 10 MG TAB PO SCH (10:08)
[2019-03-16] MEDS: FERROUS SULFATE 325 MG TAB PO SCH (10:08)
[2019-03-16] MEDS: DULOXETINE 30 MG CAP PO SCH (10:08)
[2019-03-16] MEDS: VITAMIN E 400 IU CAP PO SCH (10:14)
[2019-03-16] MEDS: MAGNESIUM OXIDE 400 MG TAB PO SCH (10:14)
[2019-03-16] MEDS: FE SULF/FA/VIT B COMP & C TAB PO SCH (10:15)
[2019-03-16] MEDS: PANTOPRAZOLE 40MG TABLET PO SCH (10:17)
[2019-03-16] MEDS: CARVEDILOL 12.5 MG TAB PO SCH (10:17)
[2019-03-16] MEDS: HYDRALAZINE HCL 25 MG TABLET PO SCH (10:18)
[2019-03-16] MEDS: metroNIDAZOLE 500 MG TABLET PO SCH (10:18)
[2019-03-16] MEDS: CIPROFLOXACIN HCL 250 MG TAB PO SCH (10:18)
[2019-03-16 10:20] VITALS: BP 157/68
[2019-03-16] MEDS: JUVEN PACKET PO SCH (11:01)
[2019-03-16] MEDS: ENSURE CLEAR 200 ML CAN PO SCH (11:01)
[2019-03-16] MEDS: POLYVINYL ALCOHOL 1.4% 15 ML EACH EYE SCH (11:02)
[2019-03-16] MEDS: FORMULATION-R RECTAL 30GM PR SCH (11:02)
[2019-03-16 12:25] VITALS: TEMP 97.6
--- NOTE | 2019-03-16 12:49 | P.DS ---
Admission Date: 03/07/19 Discharge Date: 03/16/19 Disposition: TRANSFER TO [facility] Discharge Condition: GOOD Reason for Admission: Melena > hematochezia, anemia, abdominal pain Hospital Course: Mrs. Lyons is doing great. She is going to [place] today. her small bowel follow through is negative. She was sent to ICU a few days ago for severe GI bleed and anemia. She had multiple stomach and colon ulcers. Dr. Painter is treating this as colitis but biopsy is negative. She will be on colazole bid and oral abx for it. She is stable for DC. SHe is at risk of thromboembolism as she is not getting anticoagulation. Dr. Painter has to follow up to clear for eliquis later. Vital Signs/Physical Exam: Temp Pulse Resp BP Pulse Ox 97.6 F 92 H 17 157/68 H 96 03/16/19 12:00 03/16/19 12:00 03/16/19 12:00 03/16/19 12:00 03/16/19 12:00 Laboratory Data at Discharge: WBC 5.9 K/uL (4.3-10.9) 03/14/19 05:57 Hgb 10.5 g/dL (12.0-15.0) L 03/14/19 05:57 Hct 30.1 % (36.0-45.0) L 03/14/19 05:57 Plt Count 190 K/uL (152-406) D 03/14/19 05:57 Sodium 137 mmol/L (136-145) 03/13/19 06:09 Potassium 3.9 mmol/L (3.5-5.1) 03/13/19 06:09 BUN 8 mg/dL (7-18) 03/13/19 06:09 Creatinine 0.98 mg/dL (0.55-1.3) 03/13/19 06:09 Glucose 139 mg/dL (74-106) H 03/13/19 06:09 Phosphorus 2.9 mg/dL (2.5-4.9) 03/11/19 05:32 Magnesium 2.0 mg/dL (1.8-2.4) D 03/11/19 05:32 Total Bilirubin 0.5 mg/dL (0.2-1.0) 03/11/19 05:32 AST 20 U/L (15-37) 03/11/19 05:32 ALT 24 U/L (12-78) 03/11/19 05:32 Alkaline Phosphatase 66 U/L (45-117) 03/11/19 05:32 Home Medications: Acetaminophen [Tylenol] 1 tab PO Q6H PRN 03/02/19 Amlodipine Besylate [Norvasc] 1 tab PO DAILY 03/02/19 Atorvastatin Calcium [Lipitor] 1 tab PO BEDTIME 03/02/19 Carvedilol [Coreg*] 1 tab PO BID 03/02/19 Cholecalciferol (Vitamin D3) [Vitamin D3] 1 cap PO DAILY 03/02/19 Cyanocobalamin [Vitamin B-12*] 1 tab PO DAILY 03/02/19 Docusate [Colace Cap*] 1 cap PO BID PRN 03/02/19 Duloxetine HCl [Cymbalta] 1 cap PO DAILY 03/02/19 Gabapentin [Neurontin*] 1 cap PO BID 03/02/19 Levothyroxine [Synthroid*] 1 tab PO DAILY 03/02/19 Lidocaine 5% Patch [Lidoderm 5% Patch*] 1 patch TOP DAILY 03/02/19 Nitroglycerin [Nitrostat*] 1 tab SL UD PRN 03/02/19 Ondansetron HCl [Zofran] 1 tab PO Q8H PRN 03/02/19 Pantoprazole [Protonix Tab*] 1 tab PO DAILY 03/02/19 Pramoxine HCl/Mineral Oil/Znox [Anusol Ointment] 1 appl [place] BID 03/02/19 Valsartan [Diovan*] 320 mg PO DAILY 03/02/19 traMADol HCL [Ultram*] 1 tab PO Q6H PRN 03/02/19 Ciprofloxacin HCl [Cipro 250 MG Tablet*] 250 mg PO BID tab 03/14/19 Hydralazine [Apresoline*] 25 mg PO TID tab 03/14/19 Satnam [Satnam*] 1 pkt PO BID powd.pack 03/14/19 Pantoprazole [Protonix Tab*] 40 mg PO ACB tab 03/14/19 Tamsulosin [Flomax*] 0.4 mg PO BEDTIME cap 03/14/19 Ciprofloxacin HCl [Cipro 500 MG Tablet] 500 mg PO BID #14 tab 03/15/19 metroNIDAZOLE [Flagyl] 500 mg PO Q8H #21 tablet 03/15/19 New Medications: Ciprofloxacin HCl [Cipro 500 MG Tablet] 500 mg PO BID #14 tab metroNIDAZOLE [Flagyl] 500 mg PO Q8H #21 tablet Followup: Jaspal Painter MD [ASSOCIATE-ACTIVE - CAN ADMIT] -
[2019-03-16 12:53] VITALS: O2SAT 98
== END 2019-03-16 15:55 | DRG 378 ==
LOC: 3RD-ICU 02:42 → UNDODISIN 03-09 14:35 → 2ND 03-10 10:58
PROVIDERS: ADMIT Internal Medicine; ATTEND Internal Medicine
PROC: 0DB78ZX Excision of Stomach, Pylorus, Via Natural or Artificial Opening Endoscopic, Diagnostic (ICD-10-PCS; 2019-03-07)
PROC: 0DB68ZX Excision of Stomach, Via Natural or Artificial Opening Endoscopic, Diagnostic (ICD-10-PCS; principal; 2019-03-07 10:30)
PROC: 0DBN8ZX Excision of Sigmoid Colon, Via Natural or Artificial Opening Endoscopic, Diagnostic (ICD-10-PCS; 2019-03-09)
PROC: 0DBN8ZZ Excision of Sigmoid Colon, Via Natural or Artificial Opening Endoscopic (ICD-10-PCS; 2019-03-09)
DX: K25.4 Chronic or unspecified gastric ulcer with hemorrhage (principal); K50.10 Crohn's disease of large intestine without complications; D62 Acute posthemorrhagic anemia; I74.3 Embolism and thrombosis of arteries of the lower extremities; K63.5 Polyp of colon; K64.4 Residual hemorrhoidal skin tags; K64.8 Other hemorrhoids; I10 Essential (primary) hypertension; I27.20 Pulmonary hypertension, unspecified; I48.2 Chronic atrial fibrillation; I65.21 Occlusion and stenosis of right carotid artery; D46.9 Myelodysplastic syndrome, unspecified; I25.10 Atherosclerotic heart disease of native coronary artery without angina pectoris; I73.9 Peripheral vascular disease, unspecified; E88.09 Other disorders of plasma-protein metabolism, not elsewhere classified
CPT/HCPCS: 36415; 36430; 74250; 80048; 80053; 83735; 84100; 85014; 85018; 85025; 86850; 86900; 86901; 88305; 88312; 97116; 97161; 97530; C9113; J0744; J1720; J2370; J2704; J2765; J2920; J7030; P9016; P9035

== ENCOUNTER 2021-03-16 18:02 | Emergency (ER) | payer OTHER, MEDICARE ==
--- NOTE | 2021-03-16 18:40 | RAD REPORT ---
EXAM DESCRIPTION: CT - Ct Stroke Brain Wo Cont - 03/16/2021 6:34 pm CLINICAL HISTORY: CONFUSED COMPARISON: Head Brain Wo Cont dated 03/10/2018; Ct Stroke Brain Wo Cont dated 02/14/2018 TECHNIQUE: All CT scans are performed using dose optimization technique as appropriate and may inclu de automated exposure control or mA/KV adjustment according to patient size. FINDINGS: No intracranial hemorrhage, hydrocephalus or extra-axial fluid collection.No areas of brai n edema or evidence of midline shift. Moderate chronic small vessel ischemic changes. There is some l imitation due to motion. The paranasal sinuses and mastoids are clear. The calvarium is intact. IMPRESSION: Limited due to motion. No acute large vascular territory infarct or intracranial hemorrh age is identified.
[2021-03-16 18:55] LABS: Absolute Lymphocytes (CBC) 1.5 K/uL (0.7-4.9); Basophils % 0.4 % (0-1.3); Hematocrit 33.2 % (36.0-45.0); Lymphocytes % 20.4 % (15.3-44.8); MPV 8.9 fL (7.6-11.3); RBC Red Blood Cell Count 3.42 M/uL (3.86-4.86)
[2021-03-16 18:58] LABS: Protime INR 0.85
[2021-03-16 19:06] LABS: Potassium 5.2 mmol/L (3.5-5.1)
[2021-03-16] MEDS ORDERED: ALTEPLASE 100 ML IV ONE (19:14)
--- NOTE | 2021-03-16 19:46 | EDPHYS ---
Physician Documentation [facility] Name: Casey Lyons Age: 85 yrs Sex: Female : 1935 Arrival Date: 03/16/2021 Time: 18:16 Bed 8 Private MD: ED Physician Jem Weston HPI: 03/16 19:50 This 85 yrs old Female presents to ER via EMS with complaints of S/S of kdr Possible Stroke. 19:50 The patient's problem is reported as altered mental status, dysphasia, slurred speech, kdr incoherent speech, weakness. Onset: The symptoms/episode began/occurred acutely, just prior to arrival. Duration: This was a single incident, the symptoms became persistent. Severity of symptoms: At their worst the symptoms were moderate in the emergency department the symptoms are unchanged. Patient's baseline: Neuro: alert and fully oriented, Motor: no deficits, Ambulation: walks without assistance. Patient had a prior CVA in 2018. The deficit at that time was lateral weakness. Historical: - Allergies: 18:31 No Known Allergies; ss - PMHx: 18:31 Cellulitis of Leg; High Cholesterol; Crohn's; Hypertension; ss 19:41 Cerebrovascular accident; jl7 - Immunization history:: Adult Immunizations unknown. - Social history:: Smoking status: Patient denies any tobacco usage or history of. ROS: 19:34 Constitutional: Negative for fever, chills, and weight loss, Eyes: Negative for injury, kdr pain, redness, and discharge, Neck: Negative for injury, pain, and swelling, Cardiovascular: Negative for chest pain, palpitations, and edema, Respiratory: Negative for shortness of breath, cough, wheezing, and pleuritic chest pain, Abdomen/GI: Negative for abdominal pain, nausea, vomiting, diarrhea, and constipation, Back: Negative for injury and pain, : Negative for injury, bleeding, discharge, and swelling, MS/Extremity: Negative for injury and deformity, Skin: Negative for injury, rash, and discoloration, Psych: Negative for depression, anxiety, suicide ideation, homicidal ideation, and hallucinations, Allergy/Immunology: Negative for hives, rash, and allergies, Endocrine: Negative for neck swelling, polydipsia, polyuria, polyphagia, and marked weight changes, Hematologic/Lymphatic: Negative for swollen nodes, abnormal bleeding, and unusual bruising. 19:34 Neuro: Positive for weakness, Negative for altered mental status, dizziness, gait disturbance, loss of consciousness. 19:34 Psych: Positive for anxiety. Exam: 19:34 Radiologist reports: CT was reported to me as negative by the nursing staff kdr 19:34 Constitutional: This is a well developed, well nourished patient who is awake, alert, and in no acute distress. Head/Face: Normocephalic, atraumatic. Eyes: Pupils equal round and reactive to light, extra-ocular motions intact. Lids and lashes normal. Conjunctiva and sclera are non-icteric and not injected. Cornea within normal limits. Periorbital areas with no swelling, redness, or edema. Neck: Trachea midline, no thyromegaly or masses palpated, and no cervical lymphadenopathy. Supple, full range of motion without nuchal rigidity, or vertebral point tenderness. No Meningismus. Chest/axilla: Normal chest wall appearance and motion. Nontender with no deformity. No lesions are appreciated. Cardiovascular: Regular rate and rhythm with a normal S1 and S2. No gallops, murmurs, or rubs. Normal PMI, no JVD. No pulse deficits. Respiratory: Lungs have equal breath sounds bilaterally, clear to auscultation and percussion. No rales, rhonchi or wheezes noted. No increased work of breathing, no retractions or nasal flaring. Abdomen/GI: Soft, non-tender, with normal bowel sounds. No distension or tympany. No guarding or rebound. No evidence of tenderness throughout. Back: No spinal tenderness. No costovertebral tenderness. Full range of motion. MS/ Extremity: Pulses equal, no cyanosis. Neurovascular intact. Full, normal range of motion. Psych: Awake, alert, with orientation to person, place and time. Behavior, mood, and affect are within normal limits. 19:34 Neuro: Orientation: Oriented to person only, Mentation: responsive to voice able to follow commands, confused, Cranial nerves: no acute changes, Motor: moves all fours, strength is 5/5 in the right arm, left arm and right leg, strength is 4/5 in the left leg, Sensation: no obvious gross deficits, Gait: not tested. Vital Signs: 18:43 BP 167 / 85; Pulse 59; Resp 26; Pulse Ox 100% on R/A; jl7 22:32 BP 169 / 92; Pulse 107; Resp 20; Pulse Ox 97% on R/A; ea NIH Stroke Scale Scores: 18:35 NIHSS Score: 3 jl7 19:34 NIHSS Score: 3 kdr MDM: 19:34 Data reviewed: vital signs, nurses notes, lab test result(s), radiologic studies. kdr Counseling: I had a detailed discussion with the patient and/or guardian regarding: the historical points, exam findings, and any diagnostic results supporting the discharge/admit diagnosis, lab results, radiology results, the need to transfer to another facility. Physician consultation: Jassi Gamboa MD and will see patient in inpatient room, tomorrow, would like medications started, Alteplase. Physician consultation: Gurdeep Koehler MD regarding consult, patient's condition, need to evaluate the patient as soon as possible, after a discussion of the case, a recommendation for transfer for higher level of care is made. 19:46 Patient medically screened. kdr 03/16 18:31 Order name: Basic Metabolic Panel; Complete Time: 19:52 ss 03/16 18:31 Order name: CBC with Diff; Complete Time: 19:52 ss 03/16 18:31 Order name: Protime (+inr); Complete Time: 19:52 ss 03/16 18:31 Order name: Ptt, Activated; Complete Time: 19:52 ss 03/16 20:54 Order name: SARS-COV-2 RT PCR EDMS 03/16 18:29 Order name: CT Stroke Brain w/o Contrast; Complete Time: 18:54 mt 03/16 18:31 Order name: EKG; Complete Time: 18:32 ss 03/16 18:31 Order name: Accucheck; Complete Time: 19:38 ss 03/16 18:31 Order name: Cardiac monitoring; Complete Time: 18:32 ss 03/16 18:31 Order name: EKG - Nurse/Tech; Complete Time: 18:31 ss 03/16 18:31 Order name: IV Saline Lock; Complete Time: 18:32 ss 03/16 18:31 Order name: Labs collected and sent; Complete Time: 18:32 ss 03/16 18:31 Order name: NPO; Complete Time: 19:38 ss 03/16 18:31 Order name: O2 Per Protocol; Complete Time: 18:33 ss 03/16 18:31 Order name: O2 Sat Monitoring; Complete Time: 18:33 ss 03/16 18:31 Order name: Stroke Swallow Screen; Complete Time: 19:38 ss 03/16 19:49 Order name: Misc. Order: Adjust Cardene drip per protocol to keep systolic blood kdr pressure between 150 and 170 03/16 22:13 Order name: Restraint:Non-Violent; Complete Time: 22:13 ea Administered Medications: 19:20 Drug: ACTIvase (alteplase) {Co-Signature: df1 (Tamika Farrell).} Route: IV Thrombolytics; ea Rate: calculated rate; Infused Over: 60 mins; 20:20 Follow up: Response: No adverse reaction ea 20:07 Drug: Ativan (LORazepam) 0.5 mg Route: IVP; Site: right antecubital; ea 22:36 Follow up: Response: No adverse reaction; No change in condition ea 20:40 Drug: Ativan (LORazepam) 0.5 mg Route: IVP; Site: right antecubital; ea 22:36 Follow up: Response: No adverse reaction; No change in condition ea 21:03 Drug: Ativan (LORazepam) 1 mg Route: IVP; Site: right hand; ea 22:36 Follow up: Response: No adverse reaction; No change in condition ea 22:34 Drug: Ativan (LORazepam) 1 mg Route: IVP; Site: right hand; ea Point of Care Testing: Blood Glucose: 19:00 Blood Glucose: 102 mg/dL; jl7 Ranges: Critical Glucose Levels:Adult <50 mg/dl or >400 mg/dl <40 mg/dl or >180 mg/dl Disposition Summary: 03/16/21 19:46 Transfer Ordered Transfer Location: [facility] kdr Reason: Higher level of care kdr Condition: Serious kdr Problem: new kdr Symptoms: have improved kdr Accepting Physician: Bebo(03/16/21 22:43) ea Diagnosis - Aphasia, left lower extremity weakness, anxiety kdr Forms: - Medication Reconciliation Form kdr - SBAR form kdr NIH Stroke Scale - NIH Stroke Score Date: 03/16/2021 Time: 18:35 Total Score = 3 1a. Level of Consciousness (LOC) - 0(Alert) 1b. Level of Consciousness (LOC) (Month \T\ Age) - 1(One) 1c. LOC Commands (Open \T\ Closes Eyes/Short Goods Drier) - 0(Both) 2. Best Gaze (Lateral Gaze Paresis) - 0(Normal) 3. Visual Field Loss - 0(No visual loss) 4. Facial Palsy - 0(Normal) 5a. Left Arm: Motor (10-second hold) - 0(No drift) 5b. Right Arm: Motor (10-second hold) - 0(No drift) 6a. Left Leg: Motor (5-second hold - always test supine) - 1(Drift) 6b. Right Leg: Motor (5-second hold - always test supine) - 0(No drift) 7. Limb Ataxia (finger/nose \T\ heel/sesay - test with eyes open) - 0(Absent) 8. Sensory Loss (pinprick arms/legs/face) - 0(Normal) 9. Best Language: Aphasia (description/naming/reading) - 1(Mild to moderate aphasia) 10. Dysarthria (speech clarity - read or repeat words) - 0(Normal) 11. Extinction and Inattention (visual/tactile/auditory/spatial/personal) - 0(No abnormality) Initials: jl7 NIH Stroke Scale - NIH Stroke Score Date: 03/16/2021 Time: 19:34 Total Score = 3 1a. Level of Consciousness (LOC) - 0(Alert) 1b. Level of Consciousness (LOC) (Month \T\ Age) - 1(One) 1c. LOC Commands (Open \T\ Closes Eyes/Short Goods Drier) - 0(Both) 2. Best Gaze (Lateral Gaze Paresis) - 0(Normal) 3. Visual Field Loss - 0(No visual loss) 4. Facial Palsy - 0(Normal) 5a. Left Arm: Motor (10-second hold) - 0(No drift) 5b. Right Arm: Motor (10-second hold) - 0(No drift) 6a. Left Leg: Motor (5-second hold - always test supine) - 1(Drift) 6b. Right Leg: Motor (5-second hold - always test supine) - 0(No drift) 7. Limb Ataxia (finger/nose \T\ heel/sesay - test with eyes open) - 0(Absent) 8. Sensory Loss (pinprick arms/legs/face) - 0(Normal) 9. Best Language: Aphasia (description/naming/reading) - 1(Mild to moderate aphasia) 10. Dysarthria (speech clarity - read or repeat words) - 0(Normal) 11. Extinction and Inattention (visual/tactile/auditory/spatial/personal) - 0(No abnormality) Initials: kdr Signatures: Dispatcher [employer] EDMS Jem Weston MD MD kdr Smirch, Shelby, RN RN ss Leal, Jahala, RN RN jl7 Dayanara Benitez RN RN ea Dawn Furlich df1 Corrections: (The following items were deleted from the chart) 19:59 19:28 CORONAVIRUS+MR.LAB.BRZ ordered. EDMS EDMS 22:25 18:32 Chest Single View+RAD.RAD.BRZ ordered. EDMS EDMS 22:27 18:51 Head Angio+CT.RAD.BRZ ordered. EDMS EDMS 22:43 19:46 [place] kdr ea
--- NOTE | 2021-03-16 19:46 | ER ---
Nurse's Notes [facility] Name: Casey Lyons Age: 85 yrs Sex: Female : 1935 Arrival Date: 03/16/2021 Time: 18:16 Bed 8 Private MD: Diagnosis: Aphasia, left lower extremity weakness, anxiety Presentation: 03/16 18:25 Chief complaint: EMS states: Grandson went to check on patient just prior to arrival ss and stated that patient was awake, but not responding to him. Last known well was around 1720. Ebola Screen: Patient denies exposure to infectious person. Patient denies travel to an Ebola-affected area in the 21 days before illness onset. An acute neurological deficit is present. The patients blood glucose was checked before arriving to the hospital and was found to be normal. Initial Sepsis Screen: Does the patient meet any 2 criteria? No. Patient's initial sepsis screen is negative. Does the patient have a suspected source of infection? No. Patient's initial sepsis screen is negative. Risk Assessment: Do you want to hurt yourself or someone else? Patient reports no desire to harm self or others. Onset of symptoms was March 16, 2021 at 17:20. 18:25 Method Of Arrival: EMS: [facility] ss 18:25 Acuity: CLINT 1 ss 18:25 Care prior to arrival: IV initiated. 20 GA, in the right antecubital area, Glucose ss check: 127. 18:43 Coronavirus screen: At this time, the client does not indicate any symptoms associated jl7 with coronavirus-19. 19:00 Note Orders received for Ativan IV. Note Received report. TPA started by day shift. Pt df1 has 2 IV to Right FA. No urine obtained, no villaseñor in place. 19:20 Note See paper charting for Neuro checks. See paper charting for vitals. ea 19:45 Note Pt becoming more confused and agitated. Pt not completing neuro checks. Pt df1 aggressively moving all four extremities. Pt will not cooperative with vitals. Family at bedside assisting patient safety to stay in bed. Pt speaking with slurred speech talking about childhood events. Per family, pt has h/o severe confusion during hospital stays. Provider notified. 19:50 Note Pt picking at right nare. Scant amount of blood noted. Provider notified. df1 20:00 Note Pt not responding to Ativan IV. Soft hand restraints now in place to protect IV's df1 for medical safety. 22:35 Note EMS here for transport. Vitals obtained. Pt medicated with 1 mg Ativan prior to ea departure. Family notified on directions. Triage Assessment: 22:38 General: Appears. Pain: Denies pain. ea 22:43 The onset of the patients symptoms was March 16, 2021 at 22:25. ea Stroke Activation: Symptom onset < 3 hours Physician: Stroke Attending; Name: ; Notified At: ; Arrived At: Physician: Chief Stroke Resident; Name: ; Notified At: ; Arrived At: Physician: Stroke Resident; Name: ; Notified At: ; Arrived At: Physician: ED Attending; Name: ; Notified At: ; Arrived At: Physician: ED Resident; Name: ; Notified At: ; Arrived At: Historical: - Allergies: 18:31 No Known Allergies; ss - PMHx: 18:31 Cellulitis of Leg; High Cholesterol; Crohn's; Hypertension; ss 19:41 Cerebrovascular accident; jl7 - Immunization history:: Adult Immunizations unknown. - Social history:: Smoking status: Patient denies any tobacco usage or history of. Screenin:44 Abuse screen: Denies threats or abuse. Denies injuries from another. Nutritional jl7 screening: No deficits noted. Tuberculosis screening: No symptoms or risk factors identified. Fall Risk IV access (20 points). Assessment: 18:33 VAN Scoring: Arm Drift: Patients demonstrates NO arm weakness. Patient is VAN Negative. ss Visual Disturbance: No visual disturbance noted. Aphasia: Receptive aphasia noted. Provider notified of +VAN scoring. Neglect: No neglect noted. Reassessment: Norman Barth called at 1805. Pt straight to CT on EMS stretcher. Pt is noted to be awake, confused. States, "I'm cold" Denies pain. 18:45 The patient has not been NPO before screening. The patient is currently on the jl7 following diet: Home The patient is alert, and able to follow commands. The patient does not exhibit slurred or garbled speech. The patient is not exhibiting difficulty speaking. The patient does not exhibit difficulty understanding words. The patient is able to swallow own secretions with no drooling or need for suction. Patient tolerated one teaspoon of water. No drooling, immediate coughing, gurgling, or clearing of the throat was noted. The patient tolerated 90mL of water. No drooling, immediate coughing, gurgling, or clearing of the throat was noted. The patient passed the bedside swallow screening. Oral medications may be given as ordered. Contact Physician for further diet orders. Provider notified of bedside swallow screening results: Jem Weston MD. 19:00 T-PA (Activase) Screening: Indications: Definite evidence of stroke, ischemic, embolic, jl7 or hypertensive: Yes. Treatment will start within 4.5 hours onset of symptoms: Yes. No evidence of intracranial hemorrhage or CT of head and no evidence of peripheral hemorrhage or recent CVA: Yes. Consent for thrombolytic therapy: Yes. Reassessment:. Vital Signs: 18:43 BP 167 / 85; Pulse 59; Resp 26; Pulse Ox 100% on R/A; jl7 22:32 BP 169 / 92; Pulse 107; Resp 20; Pulse Ox 97% on R/A; ea NIH Stroke Scale Scores: 18:35 NIHSS Score: 3 jl7 19:34 NIHSS Score: 3 kdr ED Course: 18:16 Patient arrived in ED. ds1 18:30 Triage completed. ss 18:31 Arm band placed on left wrist. ss 18:33 Basic Metabolic Panel Sent. mh5 18:33 CBC with Diff Sent. mh5 18:33 Protime (+inr) Sent. mh5 18:33 Ptt, Activated Sent. mh5 18:33 Initial lab(s) drawn, by ED staff, sent to lab. EKG done, by ED staff, reviewed by [facility] Jem Weston MD. 18:34 CT Stroke Brain w/o Contrast In Process Unspecified. EDMS 18:34 Patient has correct armband on for positive identification. Placed in gown. Bed in low mh5 position. Call light in reach. Side rails up X2. Warm blanket given. quality assurance monitor body on. Pulse ox on. NIBP on. 18:41 Jem Weston MD is Attending Physician. kdr 18:42 Deb Malloy RN is Primary Nurse. jl7 18:45 Maintain EMS IV. Dressing intact. Good blood return noted. Site clean \\T\\ dry. Gauge \\T\\ jl 7 site: 20 Right AC. 19:00 No provider procedures requiring assistance completed. Inserted saline lock: 24 gauge jl7 in right hand, using aseptic technique. 19:20 Report given to GLORIA Lundberg. jl7 19:25 initiated a transfer with Ayala Mina from [facility] [place]. mw2 19:[address] Weston with the Doctor from [facility]. mw2 19:44 [facility] needs the Covid results before proceeding. mw2 21:00 administrative approval given by Ayala Mina/ patient has been accepted to [place] [address] bed 14/ Dr. Lagunas accepted the patient in transfer/ report to be called to [phone]. 22:43 Patient transferred, IV remains in place. ea Restraints: 20:00 Non-Violent Restraint: Order obtained. Initiated on March 16, 2021 at 20:00 ea Restraint Education provided to family/significant other/legally authorized lead generation representative. Less restrictive alternatives attempted: decrease environmental stimuli, 1:1 patient care, family at bedside, medications evaluated, medicated for pain/anxiety, repositioned, performed diversional activities, Alternative interventions: Ineffective. Clinical justification for use: line protection, patient safety, Mental status: agitated/restless, confused, Cognition: poor judgement, poor safety awareness, Circulation: Within defined parameters (based on Cardiovascular assessment) Skin integrity: Within defined parameters (based on Integumentary assessment) Signs of injury related to restraint: No injuries noted. Range of Motion (ROM): performed. Restraint status: Soft wrist restraint (Right) Started. Soft wrist restraint (Left) Started. 22:15 Non-Violent Restraint: Mental status: confused, Cognition: poor judgement, poor safety ea awareness, Circulation: Within defined parameters (based on Cardiovascular assessment) Skin integrity: Within defined parameters (based on Integumentary assessment) Signs of injury related to restraint: No injuries noted. Range of Motion (ROM): performed. Restraint status: Soft wrist restraint (Right) Discontinued. Soft wrist restraint (Left) Discontinued. Administered Medications: 19:20 Drug: ACTIvase (alteplase) {Co-Signature: df1 (Tamika Farrell).} Route: IV Thrombolytics; ea Rate: calculated rate; Infused Over: 60 mins; 20:20 Follow up: Response: No adverse reaction ea 20:07 Drug: Ativan (LORazepam) 0.5 mg Route: IVP; Site: right antecubital; ea 22:36 Follow up: Response: No adverse reaction; No change in condition ea 20:40 Drug: Ativan (LORazepam) 0.5 mg Route: IVP; Site: right antecubital; ea 22:36 Follow up: Response: No adverse reaction; No change in condition ea 21:03 Drug: Ativan (LORazepam) 1 mg Route: IVP; Site: right hand; ea 22:36 Follow up: Response: No adverse reaction; No change in condition ea 22:34 Drug: Ativan (LORazepam) 1 mg Route: IVP; Site: right hand; ea Point of Care Testing: Blood Glucose: 19:00 Blood Glucose: 102 mg/dL; jl7 Ranges: Outcome: 19:46 ER care complete, transfer ordered by . kdr 22:42 Transferred by ground EMS to [facility]. ea 22:42 Condition: stable 22:42 Instructed on the need for admit. 22:43 Patient left the ED. NIH Stroke Scale - NIH Stroke Score Date: 03/16/2021 Time: 18:35 Total Score = 3 1a. Level of Consciousness (LOC) - 0(Alert) 1b. Level of Consciousness (LOC) (Month \\T\\ Age) - 1(One) 1c. LOC Commands (Open \\T\\ Closes Eyes/Baggage Clerk) - 0(Both) 2. Best Gaze (Lateral Gaze Paresis) - 0(Normal) 3. Visual Field Loss - 0(No visual loss) 4. Facial Palsy - 0(Normal) 5a. Left Arm: Motor (10-second hold) - 0(No drift) 5b. Right Arm: Motor (10-second hold) - 0(No drift) 6a. Left Leg: Motor (5-second hold - always test supine) - 1(Drift) 6b. Right Leg: Motor (5-second hold - always test supine) - 0(No drift) 7. Limb Ataxia (finger/nose \\T\\ heel/sesay - test with eyes open) - 0(Absent) 8. Sensory Loss (pinprick arms/legs/face) - 0(Normal) 9. Best Language: Aphasia (description/naming/reading) - 1(Mild to moderate aphasia) 10. Dysarthria (speech clarity - read or repeat words) - 0(Normal) 11. Extinction and Inattention (visual/tactile/auditory/spatial/personal) - 0(No abnormality) Initials: jl7 NIH Stroke Scale - NIH Stroke Score Date: 03/16/2021 Time: 19:34 Total Score = 3 1a. Level of Consciousness (LOC) - 0(Alert) 1b. Level of Consciousness (LOC) (Month \\T\\ Age) - 1(One) 1c. LOC Commands (Open \\T\\ Closes Eyes/Baggage Clerk) - 0(Both) 2. Best Gaze (Lateral Gaze Paresis) - 0(Normal) 3. Visual Field Loss - 0(No visual loss) 4. Facial Palsy - 0(Normal) 5a. Left Arm: Motor (10-second hold) - 0(No drift) 5b. Right Arm: Motor (10-second hold) - 0(No drift) 6a. Left Leg: Motor (5-second hold - always test supine) - 1(Drift) 6b. Right Leg: Motor (5-second hold - always test supine) - 0(No drift) 7. Limb Ataxia (finger/nose \\T\\ heel/sesay - test with eyes open) - 0(Absent) 8. Sensory Loss (pinprick arms/legs/face) - 0(Normal) 9. Best Language: Aphasia (description/naming/reading) - 1(Mild to moderate aphasia) 10. Dysarthria (speech clarity - read or repeat words) - 0(Normal) 11. Extinction and Inattention (visual/tactile/auditory/spatial/personal) - 0(No abnormality) Initials: kdr Signatures: Dispatcher [employer] EDIA Jem Weston MD MD [facility] Aixa Smith ds1 Malgorzata Barajas RN RN ss Martinez, Maria Deb Benton RN RN jl7 Dayanara Benitez RN Olya Shah ea 2 Tamika Farrell df1 Tamika Farrell df1 Corrections: (The following items were deleted from the chart) 18:43 18:33 VAN Scoring: Arm Drift: Patients demonstrates NO arm weakness. Patient is ss VAN Negative. Visual Disturbance: No visual disturbance noted. Neglect: No neglect noted. ss
[2021-03-16] MEDS ORDERED: NA CHLORIDE 0.9% 100 ML ONE (19:51)
[2021-03-16] MEDS ORDERED: LORazepam 2 MG/ML VIAL ONE ×3 (20:27→22:52)
[2021-03-16 22:51] VITALS: BP 169/92; O2SAT 97
== END 2021-03-16 22:43 | disposition short-term general hospital (02) ==
LOC: ER 18:02
DX: R47.01 Aphasia (principal); F41.9 Anxiety disorder, unspecified; R29.703 NIHSS score 3; I10 Essential (primary) hypertension; Z86.73 Personal history of transient ischemic attack (TIA), and cerebral infarction without residual deficits; Z20.822 Contact with and (suspected) exposure to COVID-19
CPT/HCPCS: 92977; 85025; 80048; 36415; 85610; 85730; 70450; 99291; U0003; J2997

== ENCOUNTER 2021-07-14 19:10 | Emergency (ER) | payer OTHER, MEDICARE ==
--- OUTSIDE RECORDS SUMMARY | 2021-07-14 19:16 | XMS REPORT | Continuity of Care Document ---
:[address] [facility] t Address [address] [place] [address] [address] [place] [address] Care Team Providers Name Role Phone CONRADO SANTIAGO Primary Care Physician Unavailable Bo GERARD Attending Clinician Unavailable ELIZABETH HAYES Attending Clinician Unavail able BRIONNA EPPS Attending Clinician Unavailable AVE LARSON Admitting Clinician Unavailable BRIONNA EPPS Admitting Clinician Unavailable Payers Payer Name Policy Type Policy Number Effective Date Expiration Date S ource MEDICARE A B [id number] 2002 00:00:00 [facility] [id number] 2002 HEALTHCARE 00:00:00 Problems This patient has no known problems. Allergies, Adverse Reactions, Alerts Allergy Allergy Status Severity Reaction(s) Onset Inactive Treating Comm ents Source Name Type Date Date Clinician NO KNOWN Allergy Active [facility] Medications This patient has no known medications. Vital Signs Vital Name Observation Time Observation Value Comments Source HEIGHT 2021-03-16 23:49:00 162.6 cm WEIGHT 2021-03-16 23:49:00 65.8 kg HEIGHT 2021-03-16 23:49:00 162.6 cm WEIGHT 2021-03-16 23:49:00 65.8 kg Procedures This patient has no known procedures. Encounters Start End Encounter Admission Attending Care Care Encounter Source Date/Time Date/Time Type Type Clinicians Facility Department ID 2021-03-16 2021-03-27 Inpatient ER CELY GERARD [facility] [id number] [facility] 23:39:00 12:45:00 YASHASH Results Test Description Test Time Test Comments Results Result Comments Source POCT-GLUCOSE METER 2021-03-27 12:30:47 Test Item Value Reference Range Interpretation Comme nts POC-GLUCOSE METER (BEAKER) 102 mg/dL 70-110 : TESTED AT [facility] [address] (test code = 1538) [place], [address]: Chrome Tanning Drum Operator/Techni kaushik ID = [id number] for MOISES BURLESON SARS-COV2/RT-PCR ([facility])2021-03-27 11:03:20 Test Item Value Reference Range Interpretation Comments SARS-COV2/RT-PCR (test Negative Not Detected, Negative, code = 2701022) See external report for linked test SARS-COV-2 PERFORMING LAB [facility] BLANQUITA (test code = 3023649) Negative result for this test determines that SARS-CoV-2 RNA was not present in the specimen above the Limit of Detection (LOD). However, Negative results do not preclude SARS-CoV-2 infection and should not be used as the sole basis for treatment or patient management decisions. Negative results mustbe combined with clinical observations, patient history, and epidemiological information. A false negative result may occur if a specimen is improperly collected, transported or handled. A false negative result should be considered if patient's recent exposures or clinical presentation indicate that COVID-19 (SARS-CoV-2) is likely and diagnostic tests for other causes of illness are negative. Re-testing should be considered in cases of suspected false negatives.The limit of detection for this assay is 800 copies/mL.This SARS CoV-2 test is a real-time RT-PCR test intended for the qualitative detection of nucleic acid from SARS-CoV-2 in a nasopharyngeal swab specimen collected from individuals susp ected of COVID-19 by their healthcare provider.This test has not been Food and Drug Administration (FDA) cleared or approved. This is a modified version of an approved Emergency Use Authorization (EUA) and is in the process of review by the FDA. Once authorized by the FDA, the issued EUA will be effective until the declaration that circumstances exist justifying the authorization of the emergency use of in vitro diagnostic tests for detection and/or diagnosis of COVID-19 is terminated under Section 564(b)(2) of the Act or the EUA is revoked under Section 564(g) of the Act.Fact Sheet for Healthcare Providers:https://www.[employer]/sites/default/files/product/documents/Fact_Shegabi c_KQ_Seoggwokm_Icnf_PWYQ-RaX-6.pdfFact Sheet for Healthcare Patients:https://www.[employer]/sites/default/files/product/ documents/Szjg_Whpli_Ujikjqnw_Atqy_AJMA-FqW-2.pdfPerforming Laboratory:[facility], [place] [address]WHQT-DHTIDDC METER 2021-03-27 07:00:17 Test Item Value Reference Range Interpretation Comments POC-GLUCOSE METER 81 mg/dL 70-110 : TESTED A T [facility] 6720 (BEAKER) (test code = MARCELINOMAINE [place] [facility], 1538) [address]: Chrome Tanning Drum Operator/Techni kaushik ID = [id number] for Mavis Noonan [id number] 06:12:51 Test Item Value Reference Range Interpretation Comments MAGNESIUM (BEAKER) (test code = 1.9 mg/dL 1.6-2.6 627) Chrome Tanning Drum Operator ID - [id number] 06:12:51 Test Item Value Reference Range Interpretation Comments PHOSPHORUS (BEAKER) (test code = 3.1 mg/dL 2.3-4.7 604) Chrome Tanning Drum Operator ID - JRLCOMPREHENSIVE METABOLIC [id number] 06:12:50 Test Item Value Reference Range Interpretation Comments TOTAL PROTEIN 4.6 gm/dL 6.0-8.3 L (BEAKER) (test code = 770) ALBUMIN (BEAKER) 2.7 g/dL 3.5-5.0 L (test code = 1145) ALKALINE PHOSPHATASE 48 U/L 40-150 (BEAKER) (test code = 346) BILIRUBIN TOTAL 0.3 mg/dL 0.2-1.2 (BEAKER) (test code = 377) SODIUM (BEAKER) (test 135 meq/L 136-145 L code = 381) POTASSIUM (BEAKER) 4.2 meq/L 3.5-5.1 (test code = 379) CHLORIDE (BEAKER) 111 meq/L 98-107 H (test code = 382) CO2 (BEAKER) (test 19 meq/L 22-29 L code = 355) BLOOD UREA NITROGEN 21 mg/dL 7-21 (BEAKER) (test code = 354) CREATININE (BEAKER) 1.29 mg/dL 0.57-1.25 H (test code = 358) GLUCOSE RANDOM 87 mg/dL 70-105 (BEAKER) (test code = 652) CALCIUM (BEAKER) 8.6 mg/dL 8.4-10.2 (test code = 697) AST (SGOT) (BEAKER) 19 U/L 5-34 (test code = 353) ALT (SGPT) (BEAKER) 17 U/L 6-55 (test code = 347) EGFR (BEAKER) (test 39 mL/min/1.73 ESTIMA KLAUS GFR IS code = 1092) sq m NOT ACCURATE CREATININE CLEARANCE IN PREDICTING GLOMERULAR FILTRATION RATE . ESTIMATED GFR I S NOT APPLICABLE FOR DIALYSIS PATIEN TS. Chrome Tanning Drum Operator ID - JRLCBC W/PLT COUNT & AUTO [id number] 05:43:01 Test Item Value Reference Range Interpretation Comments WHITE BLOOD CELL COUNT (BEAKER) 4.0 K/ L 3.5-10.5 (test code = 775) RED BLOOD CELL COUNT (BEAKER) 2.27 M/ L 3.93-5.22 L (test code = 761) HEMOGLOBIN (BEAKER) (test code = 7.3 GM/DL 11.2-15.7 L 410) HEMATOCRIT (BEAKER) (test code = 23.4 % 34.1-44.9 L 411) MEAN CORPUSCULAR VOLUME (BEAKER) 103.1 fL 79.4-94.8 H (test code = 753) MEAN CORPUSCULAR HEMOGLOBIN 32.2 pg 25.6-32.2 (BEAKER) (test code = 751) MEAN CORPUSCULAR HEMOGLOBIN CONC 31.2 GM/DL 32.2-35.5 L (BEAKER) (test code = 752) RED CELL DISTRIBUTION WIDTH 12.7 % 11.7-14.4 (BEAKER) (test code = 412) PLATELET COUNT (BEAKER) (test 173 K/CU MM 150-450 code = 756) MEAN PLATELET VOLUME (BEAKER) 11.8 fL 9.4-12.3 (test code = 754) NUCLEATED RED BLOOD CELLS 0 /100 WBC 0-0 (BEAKER) (test code = 413) NEUTROPHILS RELATIVE PERCENT 53 % (BEAKER) (test code = 429) LYMPHOCYTES RELATIVE PERCENT 25 % (BEAKER) (test code = 430) MONOCYTES RELATIVE PERCENT 14 % (BEAKER) (test code = 431) EOSINOPHILS RELATIVE PERCENT 6 % (BEAKER) (test code = 432) BASOPHILS RELATIVE PERCENT 1 % (BEAKER) (test code = 437) NEUTROPHILS ABSOLUTE COUNT 2.12 K/ L 1.56-6.13 (BEAKER) (test code = 670) LYMPHOCYTES ABSOLUTE COUNT 1.01 K/ L 1.18-3.74 L (BEAKER) (test code = 414) MONOCYTES ABSOLUTE COUNT (BEAKER) 0.57 K/ L 0.24-0.36 H (test code = 415) EOSINOPHILS ABSOLUTE COUNT 0.25 K/ L 0.04-0.36 (BEAKER) (test code = 416) BASOPHILS ABSOLUTE COUNT (BEAKER) 0.02 K/ L 0.01-0.08 (test code = 417) IMMATURE GRANULOCYTES-RELATIVE 2 % 0-1 H PERCENT (BEAKER) (test code = 2801) POCT-GLUCOSE [id number] 00:38:16 Test Item Value Reference Range Interpretation Comments POC-GLUCOSE METER 85 mg/dL 70-110 : TESTED A T [facility] 6720 (BEAKER) (test code = [facility], 153) [address]: Chrome Tanning Drum Operator/Techni kaushik ID = [id number] for Mavis Noonan POCT-GLUCOSE [id number] 17:30:06 Test Item Value Reference Range Interpretation Comments POC-GLUCOSE METER 118 mg/dL 70-110 H : TESTED A T [facility] 6720 (BEAKER) (test code = [facility], 153) [address]: Chrome Tanning Drum Operator/Techni kaushik ID = [id number] for YOVANI SETHIE HEMOGLOBIN AND [id number] 17:20:47 Test Item Value Reference Range Interpretation Comments HEMOGLOBIN (BEAKER) (test code = 7.4 GM/DL 11.2-15.7 L 410) HEMATOCRIT (BEAKER) (test code = 23.1 % 34.1-44.9 L 411) Chrome Tanning Drum Operator ID - [id number]-GLUCOSE [id number] 12:41:00 Test Item Value Reference Range Interpretation Comments POC-GLUCOSE METER 105 mg/dL 70-110 : TESTED A T [facility] 6720 (FELISHA) (test code = [place], 1538) [address]: Chrome Tanning Drum Operator/Techni kaushik ID = [id number] for DANAY MARQUEZ SARS-COV2/RT-PCR ([facility])2021-03-26 10:44:30 Test Item Value Reference Range Interpretation Comments SARS-COV2/RT-PCR (test Negative Not Detected, Negative, code = 2173135) See external report for linked test SARS-COV-2 PERFORMING LAB [facility] [place] (test code = 1400575) Negative result for this test determines that SARS-CoV-2 RNA was not present in the specimen above the Limit of Detection (LOD). However, Negative results do not preclude SARS-CoV-2 infection and should not be used as the sole basis for treatment or patient management decisions. Negative results mustbe combined with clinical observations, patient history, and epidemiological information. A false negative result may occur if a specimen is improperly collected, transported or handled. A false negative result should be considered if patient's recent exposures or clinical presentation indicate that COVID-19 (SARS-CoV-2) is likely and diagnostic tests for other causes of illness are negative. Re-testing should be considered in cases of suspected false negatives.The limit of detection for this assay is 800 copies/mL.This SARS CoV-2 test is a real-time RT-PCR test intended for the qualitative detection of nucleic acid from SARS-CoV-2 in a nasopharyngeal swab specimen collected from individuals susp ected of COVID-19 by their healthcare provider.This test has not been Food and Drug Administration (FDA) cleared or approved. This is a modified version of an approved Emergency Use Authorization (EUA) and is in the process of review by the FDA. Once authorized by the FDA, the issued EUA will be effective until the declaration that circumstances exist justifying the authorization of the emergency use of in vitro diagnostic tests for detection and/or diagnosis of COVID-19 is terminated under Section 564(b)(2) of the Act or the EUA is revoked under Section 564(g) of the Act.Fact Sheet for Healthcare Providers:https://www.[employer]/sites/default/files/product/documents/Fact_Shee o_SS_Onavivgrl_Znzi_XCPU-HkG-1.pdfFact Sheet for Healthcare Patients:https://www.[employer]/sites/default/files/product/ documents/Rxlf_Rdajw_Fwlfjkah_Vtan_XIFA-QwN-1.pdfPerforming Laboratory:[facility], [place] [id number] 06:44:05 Test Item Value Reference Range Interpretation Comments MAGNESIUM (BEAKER) (test code = 1.9 mg/dL 1.6-2.6 627) Chrome Tanning Drum Operator ID - DEWAYNE [id number] 06:44:05 Test Item Value Reference Range Interpretation Comments PHOSPHORUS (BEAKER) (test code = 2.7 mg/dL 2.3-4.7 604) Chrome Tanning Drum Operator ID - DEWAYNE WCOMPREHENSIVE METABOLIC [id number] 06:44:04 Test Item Value Reference Range Interpretation Comments TOTAL PROTEIN 4.7 gm/dL 6.0-8.3 L (BEAKER) (test code = 770) ALBUMIN (BEAKER) 2.8 g/dL 3.5-5.0 L (test code = 1145) ALKALINE PHOSPHATASE 45 U/L 40-150 (BEAKER) (test code = 346) BILIRUBIN TOTAL 0.3 mg/dL 0.2-1.2 (BEAKER) (test code = 377) SODIUM (BEAKER) (test 136 meq/L 136-145 code = 381) POTASSIUM (BEAKER) 4.1 meq/L 3.5-5.1 (test code = 379) CHLORIDE (BEAKER) 113 meq/L 98-107 H (test code = 382) CO2 (BEAKER) (test 19 meq/L 22-29 L code = 355) BLOOD UREA NITROGEN 20 mg/dL 7-21 (BEAKER) (test code = 354) CREATININE (BEAKER) 1.12 mg/dL 0.57-1.25 (test code = 358) GLUCOSE RANDOM 94 mg/dL 70-105 (BEAKER) (test code = 652) CALCIUM (BEAKER) 8.6 mg/dL 8.4-10.2 (test code = 697) AST (SGOT) (BEAKER) 20 U/L 5-34 (test code = 353) ALT (SGPT) (BEAKER) 19 U/L 6-55 (test code = 347) EGFR (BEAKER) (test 46 mL/min/1.73 ESTIMA KLAUS GFR IS code = 1092) sq m NOT ACCURATE CREATININE CLEARANCE IN PREDICTING GLOMERULAR FILTRATION RATE . ESTIMATED GFR I S NOT APPLICABLE FOR DIALYSIS PATIEN TS. Chrome Tanning Drum Operator ID - DEWAYNE WCBC W/PLT COUNT & AUTO [id number] 06:33:22 Test Item Value Reference Range Interpretation Comments WHITE BLOOD CELL COUNT (BEAKER) 5.5 K/ L 3.5-10.5 (test code = 775) RED BLOOD CELL COUNT (BEAKER) 2.22 M/ L 3.93-5.22 L (test code = 761) HEMOGLOBIN (BEAKER) (test code = 7.1 GM/DL 11.2-15.7 L 410) HEMATOCRIT (BEAKER) (test code = 23.0 % 34.1-44.9 L 411) MEAN CORPUSCULAR VOLUME (BEAKER) 103.6 fL 79.4-94.8 H (test code = 753) MEAN CORPUSCULAR HEMOGLOBIN 32.0 pg 25.6-32.2 (BEAKER) (test code = 751) MEAN CORPUSCULAR HEMOGLOBIN CONC 30.9 GM/DL 32.2-35.5 L (BEAKER) (test code = 752) RED CELL DISTRIBUTION WIDTH 12.6 % 11.7-14.4 (BEAKER) (test code = 412) PLATELET COUNT (BEAKER) (test 180 K/CU MM 150-450 code = 756) MEAN PLATELET VOLUME (BEAKER) 12.0 fL 9.4-12.3 (test code = 754) NUCLEATED RED BLOOD CELLS 0 /100 WBC 0-0 (BEAKER) (test code = 413) NEUTROPHILS RELATIVE PERCENT 63 % (BEAKER) (test code = 429) LYMPHOCYTES RELATIVE PERCENT 20 % (BEAKER) (test code = 430) MONOCYTES RELATIVE PERCENT 11 % (BEAKER) (test code = 431) EOSINOPHILS RELATIVE PERCENT 4 % (BEAKER) (test code = 432) BASOPHILS RELATIVE PERCENT 0 % (BEAKER) (test code = 437) NEUTROPHILS ABSOLUTE COUNT 3.45 K/ L 1.56-6.13 (BEAKER) (test code = 670) LYMPHOCYTES ABSOLUTE COUNT 1.07 K/ L 1.18-3.74 L (BEAKER) (test code = 414) MONOCYTES ABSOLUTE COUNT (BEAKER) 0.60 K/ L 0.24-0.36 H (test code = 415) EOSINOPHILS ABSOLUTE COUNT 0.24 K/ L 0.04-0.36 (BEAKER) (test code = 416) BASOPHILS ABSOLUTE COUNT (BEAKER) 0.02 K/ L 0.01-0.08 (test code = 417) IMMATURE GRANULOCYTES-RELATIVE 1 % 0-1 PERCENT (BEAKER) (test code = 2801) POCT-GLUCOSE [id number] 06:18:41 Test Item Value Reference Range Interpretation Comments POC-GLUCOSE METER 99 mg/dL 70-110 : TESTED A T [facility] 6720 (BEAKER) (test code = [facility]8) [address]: Chrome Tanning Drum Operator/Techni kaushik ID = [id number] for Serr ano, Lore POCT-GLUCOSE [id number] 00:16:02 Test Item Value Reference Range Interpretation Comments POC-GLUCOSE METER 89 mg/dL 70-110 : TESTED A T [facility] 6720 (BEAKER) (test code = [facility], [facility]8) [address]: Chrome Tanning Drum Operator/Techni kaushik ID = [id number] for Serr ano, Lore POCT-GLUCOSE [id number] 18:26:03 Test Item Value Reference Range Interpretation Comments POC-GLUCOSE METER 110 mg/dL 70-110 : TESTED A T [facility] 6720 (BEAKER) (test code = [facility]) [address]: Chrome Tanning Drum Operator/Techni kaushik ID = [id number] for RO DGERS, GEORGEECA POCT-GLUCOSE [id number] 13:19:38 Test Item Value Reference Range Interpretation Comments POC-GLUCOSE METER 109 mg/dL 70-110 : TESTED A T [facility] 6720 (BEAKER) (test code = [facility]) [address]: Chrome Tanning Drum Operator/Techni kaushik ID = [id number] for RO DGERS, JAMECA CBC W/PLT COUNT & AUTO [id number] 08:04:36 Test Item Value Reference Range Interpretation Comments WHITE BLOOD CELL COUNT (BEAKER) 7.9 K/ L 3.5-10.5 (test code = 775) RED BLOOD CELL COUNT (BEAKER) 2.22 M/ L 3.93-5.22 L (test code = 761) HEMOGLOBIN (BEAKER) (test code = 7.3 GM/DL 11.2-15.7 L 410) HEMATOCRIT (BEAKER) (test code = 22.7 % 34.1-44.9 L 411) MEAN CORPUSCULAR VOLUME (BEAKER) 102.3 fL 79.4-94.8 H (test code = 753) MEAN CORPUSCULAR HEMOGLOBIN 32.9 pg 25.6-32.2 H (BEAKER) (test code = 751) MEAN CORPUSCULAR HEMOGLOBIN CONC 32.2 GM/DL 32.2-35.5 (BEAKER) (test code = 752) RED CELL DISTRIBUTION WIDTH 12.6 % 11.7-14.4 (BEAKER) (test code = 412) PLATELET COUNT (BEAKER) (test 177 K/CU MM 150-450 code = 756) MEAN PLATELET VOLUME (BEAKER) 11.9 fL 9.4-12.3 (test code = 754) NUCLEATED RED BLOOD CELLS 0 /100 WBC 0-0 (BEAKER) (test code = 413) NEUTROPHILS RELATIVE PERCENT 73 % (BEAKER) (test code = 429) LYMPHOCYTES RELATIVE PERCENT 15 % (BEAKER) (test code = 430) MONOCYTES RELATIVE PERCENT 8 % (BEAKER) (test code = 431) EOSINOPHILS RELATIVE PERCENT 3 % (BEAKER) (test code = 432) BASOPHILS RELATIVE PERCENT 0 % (BEAKER) (test code = 437) NEUTROPHILS ABSOLUTE COUNT 5.76 K/ L 1.56-6.13 (BEAKER) (test code = 670) LYMPHOCYTES ABSOLUTE COUNT 1.15 K/ L 1.18-3.74 L (BEAKER) (test code = 414) MONOCYTES ABSOLUTE COUNT (BEAKER) 0.64 K/ L 0.24-0.36 H (test code = 415) EOSINOPHILS ABSOLUTE COUNT 0.27 K/ L 0.04-0.36 (BEAKER) (test code = 416) BASOPHILS ABSOLUTE COUNT (BEAKER) 0.02 K/ L 0.01-0.08 (test code = 417) IMMATURE GRANULOCYTES-RELATIVE 1 % 0-1 PERCENT (BEAKER) (test code = 2801) [id number] 07:24:14 Test Item Value Reference Range Interpretation Comments PHOSPHORUS (BEAKER) (test code = 2.3 mg/dL 2.3-4.7 604) Chrome Tanning Drum Operator ID Nakita BUCHANAN WCOMPREHENSIVE METABOLIC [id number] 07:24:13 Test Item Value Reference Range Interpretation Comments TOTAL PROTEIN 4.6 gm/dL 6.0-8.3 L (BEAKER) (test code = 770) ALBUMIN (BEAKER) 2.7 g/dL 3.5-5.0 L (test code = 1145) ALKALINE PHOSPHATASE 45 U/L 40-150 (BEAKER) (test code = 346) BILIRUBIN TOTAL 0.3 mg/dL 0.2-1.2 (BEAKER) (test code = 377) SODIUM (BEAKER) (test 137 meq/L 136-145 code = 381) POTASSIUM (BEAKER) 3.9 meq/L 3.5-5.1 (test code = 379) CHLORIDE (BEAKER) 114 meq/L 98-107 H (test code = 382) CO2 (BEAKER) (test 18 meq/L 22-29 L code = 355) BLOOD UREA NITROGEN 22 mg/dL 7-21 H (BEAKER) (test code = 354) CREATININE (BEAKER) 1.10 mg/dL 0.57-1.25 (test code = 358) GLUCOSE RANDOM 99 mg/dL 70-105 (BEAKER) (test code = 652) CALCIUM (BEAKER) 8.3 mg/dL 8.4-10.2 L (test code = 697) AST (SGOT) (BEAKER) 23 U/L 5-34 (test code = 353) ALT (SGPT) (BEAKER) 20 U/L 6-55 (test code = 347) EGFR (BEAKER) (test 47 mL/min/1.73 ESTIMA KLAUS GFR IS code = 1092) sq m NOT ACCURATE CREATININE CLEARANCE IN PREDICTING GLOMERULAR FILTRATION RATE . ESTIMATED GFR I S NOT APPLICABLE FOR DIALYSIS PATIEN TS. Chrome Tanning Drum Operator ID Nakita BUCHANAN [id number] 07:24:13 Test Item Value Reference Range Interpretation Comments MAGNESIUM (BEAKER) (test code = 1.8 mg/dL 1.6-2.6 627) Chrome Tanning Drum Operator ID Nakita BUCHANAN WPOCT-GLUCOSE [id number] 18:41:45 Test Item Value Reference Range Interpretation Comments POC-GLUCOSE METER 96 mg/dL 70-110 : TESTED A T [facility] 6720 (BEAKER) (test code = [facility], 1538) [address]: Chrome Tanning Drum Operator/Techni kaushik ID = [id number] for ASCENCION SAGE, KARAN POCT-GLUCOSE [id number] 11:57:32 Test Item Value Reference Range Interpretation Comments POC-GLUCOSE METER 146 mg/dL 70-110 H : TESTED A T [facility] 6720 (BEAKER) (test code = [facility], 1538) [address]: Chrome Tanning Drum Operator/Techni kaushik ID = [id number] for AK INSONU, KARAN POCT-GLUCOSE [id number] 08:36:14 Test Item Value Reference Range Interpretation Comments POC-GLUCOSE METER 103 mg/dL 70-110 : TESTED A T [facility] 6720 (BEAKER) (test code = [facility], 1538) [address]: Chrome Tanning Drum Operator/Techni kaushik ID = [id number] for AK INSONU, KARAN COMPREHENSIVE METABOLIC [id number] 08:08:55 Test Item Value Reference Range Interpretation Comments TOTAL PROTEIN 4.5 gm/dL 6.0-8.3 L (BEAKER) (test code = 770) ALBUMIN (BEAKER) 2.6 g/dL 3.5-5.0 L (test code = 1145) ALKALINE PHOSPHATASE 42 U/L 40-150 (BEAKER) (test code = 346) BILIRUBIN TOTAL 0.2 mg/dL 0.2-1.2 (BEAKER) (test code = 377) SODIUM (BEAKER) (test 134 meq/L 136-145 L code = 381) POTASSIUM (BEAKER) 3.7 meq/L 3.5-5.1 (test code = 379) CHLORIDE (BEAKER) 111 meq/L 98-107 H (test code = 382) CO2 (BEAKER) (test 18 meq/L 22-29 L code = 355) BLOOD UREA NITROGEN 31 mg/dL 7-21 H (BEAKER) (test code = 354) CREATININE (BEAKER) 1.23 mg/dL 0.57-1.25 (test code = 358) GLUCOSE RANDOM 101 mg/dL 70-105 (BEAKER) (test code = 652) CALCIUM (BEAKER) 7.9 mg/dL 8.4-10.2 L (test code = 697) AST (SGOT) (BEAKER) 23 U/L 5-34 (test code = 353) ALT (SGPT) (BEAKER) 18 U/L 6-55 (test code = 347) EGFR (BEAKER) (test 42 mL/min/1.73 ESTIMA KLAUS GFR IS code = 1092) sq m NOT ACCURATE CREATININE CLEARANCE IN PREDICTING GLOMERULAR FILTRATION RATE . ESTIMATED GFR I S NOT APPLICABLE FOR DIALYSIS PATIEN TS. Chrome Tanning Drum Operator ID - [id number] 07:41:23 Test Item Value Reference Range Interpretation Comments MAGNESIUM (BEAKER) (test code = 1.8 mg/dL 1.6-2.6 627) Chrome Tanning Drum Operator ID - [id number] 07:41:23 Test Item Value Reference Range Interpretation Comments PHOSPHORUS (BEAKER) (test code = 2.3 mg/dL 2.3-4.7 604) Chrome Tanning Drum Operator ID - DBCBC W/PLT COUNT & AUTO [id number] 07:24:27 Test Item Value Reference Range Interpretation Comments WHITE BLOOD CELL COUNT (BEAKER) 7.6 K/ L 3.5-10.5 (test code = 775) RED BLOOD CELL COUNT (BEAKER) 2.25 M/ L 3.93-5.22 L (test code = 761) HEMOGLOBIN (BEAKER) (test code = 7.3 GM/DL 11.2-15.7 L 410) HEMATOCRIT (BEAKER) (test code = 22.6 % 34.1-44.9 L 411) MEAN CORPUSCULAR VOLUME (BEAKER) 100.4 fL 79.4-94.8 H (test code = 753) MEAN CORPUSCULAR HEMOGLOBIN 32.4 pg 25.6-32.2 H (BEAKER) (test code = 751) MEAN CORPUSCULAR HEMOGLOBIN CONC 32.3 GM/DL 32.2-35.5 (BEAKER) (test code = 752) RED CELL DISTRIBUTION WIDTH 12.9 % 11.7-14.4 (BEAKER) (test code = 412) PLATELET COUNT (BEAKER) (test 154 K/CU MM 150-450 code = 756) MEAN PLATELET VOLUME (BEAKER) 11.5 fL 9.4-12.3 (test code = 754) NUCLEATED RED BLOOD CELLS 0 /100 WBC 0-0 (BEAKER) (test code = 413) NEUTROPHILS RELATIVE PERCENT 70 % (BEAKER) (test code = 429) LYMPHOCYTES RELATIVE PERCENT 15 % (BEAKER) (test code = 430) MONOCYTES RELATIVE PERCENT 8 % (BEAKER) (test code = 431) EOSINOPHILS RELATIVE PERCENT 6 % (BEAKER) (test code = 432) BASOPHILS RELATIVE PERCENT 0 % (BEAKER) (test code = 437) NEUTROPHILS ABSOLUTE COUNT 5.31 K/ L 1.56-6.13 (BEAKER) (test code = 670) LYMPHOCYTES ABSOLUTE COUNT 1.15 K/ L 1.18-3.74 L (BEAKER) (test code = 414) MONOCYTES ABSOLUTE COUNT (BEAKER) 0.59 K/ L 0.24-0.36 H (test code = 415) EOSINOPHILS ABSOLUTE COUNT 0.47 K/ L 0.04-0.36 H (BEAKER) (test code = 416) BASOPHILS ABSOLUTE COUNT (BEAKER) 0.02 K/ L 0.01-0.08 (test code = 417) IMMATURE GRANULOCYTES-RELATIVE 1 % 0-1 PERCENT (BEAKER) (test code = 2801) POCT-GLUCOSE [id number] 05:13:18 Test Item Value Reference Range Interpretation Comments POC-GLUCOSE METER 91 mg/dL 70-110 : TESTED A T [facility] 6720 (BEAKER) (test code = [facility], 153) [id number]: [employer] Drum Operator/Techni kaushik ID = [id number] for SERENITY S, SUZANNA POCT-GLUCOSE [id number] 00:08:50 Test Item Value Reference Range Interpretation Comments POC-GLUCOSE METER 109 mg/dL 70-110 : TESTED A T [facility] 6720 (BEAKER) (test code = [facility], 1538) [id number]: [employer] Operator/Techni kaushik ID = [id number] for DE NNIS, TODD [id number] 07:11:30 Test Item Value Reference Range Interpretation Comments MAGNESIUM (BEAKER) (test code = 1.9 mg/dL 1.6-2.6 627) [employer] Operator ID - SHAE [id number] 07:11:30 Test Item Value Reference Range Interpretation Comments PHOSPHORUS (BEAKER) (test code = 2.3 mg/dL 2.3-4.7 604) [employer] Operator ID - PIDOUGLAS LCOMPREHENSIVE METABOLIC [id number] 07:11:29 Test Item Value Reference Range Interpretation Comments TOTAL PROTEIN 4.7 gm/dL 6.0-8.3 L (BEAKER) (test code = 770) ALBUMIN (BEAKER) 2.8 g/dL 3.5-5.0 L (test code = 1145) ALKALINE PHOSPHATASE 57 U/L 40-150 (BEAKER) (test code = 346) BILIRUBIN TOTAL 0.3 mg/dL 0.2-1.2 (BEAKER) (test code = 377) SODIUM (BEAKER) (test 138 meq/L 136-145 code = 381) POTASSIUM (BEAKER) 3.7 meq/L 3.5-5.1 (test code = 379) CHLORIDE (BEAKER) 114 meq/L 98-107 H (test code = 382) CO2 (BEAKER) (test 18 meq/L 22-29 L code = 355) BLOOD UREA NITROGEN 36 mg/dL 7-21 H (BEAKER) (test code = 354) CREATININE (BEAKER) 1.17 mg/dL 0.57-1.25 (test code = 358) GLUCOSE RANDOM 105 mg/dL 70-105 (BEAKER) (test code = 652) CALCIUM (BEAKER) 8.0 mg/dL 8.4-10.2 L (test code = 697) AST (SGOT) (BEAKER) 27 U/L 5-34 (test code = 353) ALT (SGPT) (BEAKER) 20 U/L 6-55 (test code = 347) EGFR (BEAKER) (test 44 mL/min/1.73 ESTIMA KLAUS GFR IS code = 1092) sq m NOT ACCURATE CREATININE CLEARANCE IN PREDICTING GLOMERULAR FILTRATION RATE . ESTIMATED GFR I S NOT APPLICABLE FOR DIALYSIS PATIEN TS. Chrome Tanning Drum Operator ID - PIAYA LPOCT-GLUCOSE [id number] 06:13:33 Test Item Value Reference Range Interpretation Comments POC-GLUCOSE METER 99 mg/dL 70-110 : TESTED A T [facility] 6720 (BEAKER) (test code = [place], 1538) [address]: Chrome Tanning Drum Operator/Techni kaushik ID = [id number] for CB REIS CBC W/PLT COUNT & AUTO [id number] 05:36:33 Test Item Value Reference Range Interpretation Comments WHITE BLOOD CELL COUNT (BEAKER) 7.3 K/ L 3.5-10.5 (test code = 775) RED BLOOD CELL COUNT (BEAKER) 2.59 M/ L 3.93-5.22 L (test code = 761) HEMOGLOBIN (BEAKER) (test code = 8.4 GM/DL 11.2-15.7 L 410) HEMATOCRIT (BEAKER) (test code = 26.9 % 34.1-44.9 L 411) MEAN CORPUSCULAR VOLUME (BEAKER) 103.9 fL 79.4-94.8 H (test code = 753) MEAN CORPUSCULAR HEMOGLOBIN 32.4 pg 25.6-32.2 H (BEAKER) (test code = 751) MEAN CORPUSCULAR HEMOGLOBIN CONC 31.2 GM/DL 32.2-35.5 L (BEAKER) (test code = 752) RED CELL DISTRIBUTION WIDTH 12.8 % 11.7-14.4 (BEAKER) (test code = 412) PLATELET COUNT (BEAKER) (test 167 K/CU MM 150-450 code = 756) MEAN PLATELET VOLUME (BEAKER) 11.6 fL 9.4-12.3 (test code = 754) NUCLEATED RED BLOOD CELLS 0 /100 WBC 0-0 (BEAKER) (test code = 413) NEUTROPHILS RELATIVE PERCENT 71 % (BEAKER) (test code = 429) LYMPHOCYTES RELATIVE PERCENT 15 % (BEAKER) (test code = 430) MONOCYTES RELATIVE PERCENT 9 % (BEAKER) (test code = 431) EOSINOPHILS RELATIVE PERCENT 5 % (BEAKER) (test code = 432) BASOPHILS RELATIVE PERCENT 0 % (BEAKER) (test code = 437) NEUTROPHILS ABSOLUTE COUNT 5.17 K/ L 1.56-6.13 (BEAKER) (test code = 670) LYMPHOCYTES ABSOLUTE COUNT 1.06 K/ L 1.18-3.74 L (BEAKER) (test code = 414) MONOCYTES ABSOLUTE COUNT (BEAKER) 0.67 K/ L 0.24-0.36 H (test code = 415) EOSINOPHILS ABSOLUTE COUNT 0.36 K/ L 0.04-0.36 (BEAKER) (test code = 416) BASOPHILS ABSOLUTE COUNT (BEAKER) 0.02 K/ L 0.01-0.08 (test code = 417) IMMATURE GRANULOCYTES-RELATIVE 0 % 0-1 PERCENT ([facility]) (test code = 2801) POCT-GLUCOSE [id number] 00:31:23 Test Item Value Reference Range Interpretation Comments POC-GLUCOSE METER 104 mg/dL 70-110 : [facility] (test code = [facility], 1538) [address]: Chrome Tanning Drum Operator/Techni kaushik ID = [id number] for CB COULTER POCT-GLUCOSE [id number] 17:25:03 Test Item Value Reference Range Interpretation Comments POC-GLUCOSE METER 114 mg/dL 70-110 H : [facility]) (test code = [facility], 1538) [address]: Chrome Tanning Drum Operator/Techni kaushik ID = [id number] for KIMO FAN, GEORGEECA POCT-GLUCOSE [id number] 12:56:53 Test Item Value Reference Range Interpretation Comments POC-GLUCOSE METER 133 mg/dL 70-110 H : [facility]) (test code = [facility], 1538) 78[address]: Chrome Tanning Drum Operator/Techni kaushik ID = [id number] for KIMO FAN, GEORGEECA POCT-GLUCOSE [id number] 06:10:41 Test Item Value Reference Range Interpretation Comments POC-GLUCOSE METER 123 mg/dL 70-110 H : Notified RN/MD: ([facility]) (test code = TESTED AT [facility] 6720 1538) [facility], [address]: Chrome Tanning Drum Operator/Techni kaushik ID = [id number] for CHERYL MANZO [id number] 04:47:21 Test Item Value Reference Range Interpretation Comments MAGNESIUM (BEAKER) (test code = 2.0 mg/dL 1.6-2.6 627) Chrome Tanning Drum Operator ID - CATRACHO [id number] 04:47:21 Test Item Value Reference Range Interpretation Comments PHOSPHORUS (BEAKER) (test code = 2.1 mg/dL 2.3-4.7 L 604) Chrome Tanning Drum Operator ID - CATRACHO MCOMPREHENSIVE METABOLIC [id number] 04:47:20 Test Item Value Reference Range Interpretation Comments TOTAL PROTEIN 5.1 gm/dL 6.0-8.3 L (BEAKER) (test code = 770) ALBUMIN (BEAKER) 3.1 g/dL 3.5-5.0 L (test code = 1145) ALKALINE PHOSPHATASE 66 U/L 40-150 (BEAKER) (test code = 346) BILIRUBIN TOTAL 0.4 mg/dL 0.2-1.2 (BEAKER) (test code = 377) SODIUM (BEAKER) (test 139 meq/L 136-145 code = 381) POTASSIUM (BEAKER) 3.7 meq/L 3.5-5.1 (test code = 379) CHLORIDE (BEAKER) 112 meq/L 98-107 H (test code = 382) CO2 (BEAKER) (test 20 meq/L 22-29 L code = 355) BLOOD UREA NITROGEN 46 mg/dL 7-21 H (BEAKER) (test code = 354) CREATININE (BEAKER) 1.38 mg/dL 0.57-1.25 H (test code = 358) GLUCOSE RANDOM 128 mg/dL 70-105 H (BEAKER) (test code = 652) CALCIUM (BEAKER) 8.4 mg/dL 8.4-10.2 (test code = 697) AST (SGOT) (BEAKER) 28 U/L 5-34 (test code = 353) ALT (SGPT) (BEAKER) 18 U/L 6-55 (test code = 347) EGFR (BEAKER) (test 37 mL/min/1.73 ESTIMA KLAUS GFR IS code = 1092) sq m NOT ACCURATE CREATININE CLEARANCE IN PREDICTING GLOMERULAR FILTRATION RATE . ESTIMATED GFR I S NOT APPLICABLE FOR DIALYSIS PATIEN TS. Chrome Tanning Drum Operator ID - CATRACHO MCBC W/PLT COUNT & AUTO [id number] 04:08:41 Test Item Value Reference Range Interpretation Comments WHITE BLOOD CELL COUNT (BEAKER) 7.5 K/ L 3.5-10.5 (test code = 775) RED BLOOD CELL COUNT (BEAKER) 2.69 M/ L 3.93-5.22 L (test code = 761) HEMOGLOBIN (BEAKER) (test code = 8.7 GM/DL 11.2-15.7 L 410) HEMATOCRIT (BEAKER) (test code = 27.2 % 34.1-44.9 L 411) MEAN CORPUSCULAR VOLUME (BEAKER) 101.1 fL 79.4-94.8 H (test code = 753) MEAN CORPUSCULAR HEMOGLOBIN 32.3 pg 25.6-32.2 H (BEAKER) (test code = 751) MEAN CORPUSCULAR HEMOGLOBIN CONC 32.0 GM/DL 32.2-35.5 L (BEAKER) (test code = 752) RED CELL DISTRIBUTION WIDTH 12.6 % 11.7-14.4 (BEAKER) (test code = 412) PLATELET COUNT (BEAKER) (test 204 K/CU MM 150-450 code = 756) MEAN PLATELET VOLUME (BEAKER) 11.3 fL 9.4-12.3 (test code = 754) NUCLEATED RED BLOOD CELLS 0 /100 WBC 0-0 (BEAKER) (test code = 413) NEUTROPHILS RELATIVE PERCENT 73 % (BEAKER) (test code = 429) LYMPHOCYTES RELATIVE PERCENT 12 % (BEAKER) (test code = 430) MONOCYTES RELATIVE PERCENT 12 % (BEAKER) (test code = 431) EOSINOPHILS RELATIVE PERCENT 3 % (BEAKER) (test code = 432) BASOPHILS RELATIVE PERCENT 0 % (BEAKER) (test code = 437) NEUTROPHILS ABSOLUTE COUNT 5.42 K/ L 1.56-6.13 (BEAKER) (test code = 670) LYMPHOCYTES ABSOLUTE COUNT 0.91 K/ L 1.18-3.74 L (BEAKER) (test code = 414) MONOCYTES ABSOLUTE COUNT (BEAKER) 0.93 K/ L 0.24-0.36 H (test code = 415) EOSINOPHILS ABSOLUTE COUNT 0.19 K/ L 0.04-0.36 (BEAKER) (test code = 416) BASOPHILS ABSOLUTE COUNT (BEAKER) 0.01 K/ L 0.01-0.08 (test code = 417) IMMATURE GRANULOCYTES-RELATIVE 0 % 0-1 PERCENT (BEAKER) (test code = 2801) POCT-GLUCOSE [id number] 23:46:34 Test Item Value Reference Range Interpretation Comments POC-GLUCOSE METER 132 mg/dL 70-110 H : Notified RN/MD: (FELISHA) (test code = TESTED AT [facility] 6720 9065) [facility], [address]: Chrome Tanning Drum Operator/Techni kaushik ID = [id number] for CHERYL MANZO POCT-GLUCOSE [id number] 18:31:36 Test Item Value Reference Range Interpretation Comments POC-GLUCOSE METER 137 mg/dL 70-110 H : TESTED A T [facility] 6720 (BEAKER) (test code = [place]AM[place], 1538) [address]: Chrome Tanning Drum Operator/Techni kaushik ID = [id number] for DANAY MARQUEZ POCT-GLUCOSE [id number] 12:33:28 Test Item Value Reference Range Interpretation Comments POC-GLUCOSE METER 128 mg/dL 70-110 H : TESTED A T [facility] 6720 (BEAKER) (test code = [place]AMIE [place], 1538) [address]: Chrome Tanning Drum Operator/Techni kaushik ID = [id number] for DANAY MARQUEZ [id number] 07:06:08 Test Item Value Reference Range Interpretation Comments PHOSPHORUS (BEAKER) (test code = 4.4 mg/dL 2.3-4.7 604) Chrome Tanning Drum Operator ID - PIAYA LCOMPREHENSIVE METABOLIC [id number] 07:06:07 Test Item Value Reference Range Interpretation Comments TOTAL PROTEIN 5.7 gm/dL 6.0-8.3 L (BEAKER) (test code = 770) ALBUMIN (BEAKER) 3.5 g/dL 3.5-5.0 (test code = 1145) ALKALINE PHOSPHATASE 54 U/L 40-150 (BEAKER) (test code = 346) BILIRUBIN TOTAL 0.2 mg/dL 0.2-1.2 (BEAKER) (test code = 377) SODIUM (BEAKER) (test 138 meq/L 136-145 code = 381) POTASSIUM (BEAKER) 4.2 meq/L 3.5-5.1 (test code = 379) CHLORIDE (BEAKER) 110 meq/L 98-107 H (test code = 382) CO2 (BEAKER) (test 18 meq/L 22-29 L code = 355) BLOOD UREA NITROGEN 48 mg/dL 7-21 H (BEAKER) (test code = 354) CREATININE (BEAKER) 1.65 mg/dL 0.57-1.25 H (test code = 358) GLUCOSE RANDOM 134 mg/dL 70-105 H (BEAKER) (test code = 652) CALCIUM (BEAKER) 8.8 mg/dL 8.4-10.2 (test code = 697) AST (SGOT) (BEAKER) 25 U/L 5-34 (test code = 353) ALT (SGPT) (BEAKER) 16 U/L 6-55 (test code = 347) EGFR (BEAKER) (test 30 mL/min/1.73 ESTIMA KLAUS GFR IS code = 1092) sq m NOT ACCURATE CREATININE CLEARANCE IN PREDICTING GLOMERULAR FILTRATION RATE . ESTIMATED GFR I S NOT APPLICABLE FOR DIALYSIS PATIEN TS. Chrome Tanning Drum Operator ID - PIAYA [id number] 07:06:07 Test Item Value Reference Range Interpretation Comments MAGNESIUM (BEAKER) (test code = 2.3 mg/dL 1.6-2.6 627) Chrome Tanning Drum Operator ID - PIDOUGLAS LPOCT-GLUCOSE [id number] 06:31:52 Test Item Value Reference Range Interpretation Comments POC-GLUCOSE METER 119 mg/dL 70-110 H : TESTED A T [facility] 6720 (BEAKER) (test code = [place], 1538) [address]: Chrome Tanning Drum Operator/Techni kaushik ID = [id number] for BHASKAR WHITTCATYKya CBC W/PLT COUNT & AUTO [id number] 04:39:54 Test Item Value Reference Range Interpretation Comments WHITE BLOOD CELL COUNT (BEAKER) 9.1 K/ L 3.5-10.5 (test code = 775) RED BLOOD CELL COUNT (BEAKER) 3.04 M/ L 3.93-5.22 L (test code = 761) HEMOGLOBIN (BEAKER) (test code = 9.7 GM/DL 11.2-15.7 L 410) HEMATOCRIT (BEAKER) (test code = 30.8 % 34.1-44.9 L 411) MEAN CORPUSCULAR VOLUME (BEAKER) 101.3 fL 79.4-94.8 H (test code = 753) MEAN CORPUSCULAR HEMOGLOBIN 31.9 pg 25.6-32.2 (BEAKER) (test code = 751) MEAN CORPUSCULAR HEMOGLOBIN CONC 31.5 GM/DL 32.2-35.5 L (BEAKER) (test code = 752) RED CELL DISTRIBUTION WIDTH 12.4 % 11.7-14.4 (BEAKER) (test code = 412) PLATELET COUNT (BEAKER) (test 222 K/CU MM 150-450 code = 756) MEAN PLATELET VOLUME (BEAKER) 11.1 fL 9.4-12.3 (test code = 754) NUCLEATED RED BLOOD CELLS 0 /100 WBC 0-0 (BEAKER) (test code = 413) NEUTROPHILS RELATIVE PERCENT 78 % (BEAKER) (test code = 429) LYMPHOCYTES RELATIVE PERCENT 8 % (BEAKER) (test code = 430) MONOCYTES RELATIVE PERCENT 10 % (BEAKER) (test code = 431) EOSINOPHILS RELATIVE PERCENT 3 % (BEAKER) (test code = 432) BASOPHILS RELATIVE PERCENT 0 % (BEAKER) (test code = 437) NEUTROPHILS ABSOLUTE COUNT 7.14 K/ L 1.56-6.13 H (BEAKER) (test code = 670) LYMPHOCYTES ABSOLUTE COUNT 0.70 K/ L 1.18-3.74 L (BEAKER) (test code = 414) MONOCYTES ABSOLUTE COUNT (BEAKER) 0.93 K/ L 0.24-0.36 H (test code = 415) EOSINOPHILS ABSOLUTE COUNT 0.30 K/ L 0.04-0.36 (BEAKER) (test code = 416) BASOPHILS ABSOLUTE COUNT (BEAKER) 0.03 K/ L 0.01-0.08 (test code = 417) IMMATURE GRANULOCYTES-RELATIVE 0 % 0-1 PERCENT (BEAKER) (test code = 2801) POCT-GLUCOSE [id number] 00:11:53 Test Item Value Reference Range Interpretation Comments POC-GLUCOSE METER 106 mg/dL 70-110 : TESTED A T [facility] 6720 (BEAKER) (test code = JAMIE Cabrales [facility], 1538) [address]: Chrome Tanning Drum Operator/Techni kaushik ID = [id number] for TIFFANIE WHITT URINALYSIS W/ REFLEX URINE [id number] 19:10:53 Test Item Value Reference Range Interpretation Comments COLOR (BEAKER) (test code = 470) Yellow CLARITY (BEAKER) (test code = 469) Clear SPECIFIC GRAVITY UA (BEAKER) (test > 1.001-1.035 H code = 468) PH UA (BEAKER) (test code = 467) 6.0 5.0-8.0 PROTEIN UA (BEAKER) (test code = 300 mg/dL Negative A 464) GLUCOSE UA (BEAKER) (test code = Negative Negative 365) KETONES UA (BEAKER) (test code = 10 mg/dL Negative A 371) BILIRUBIN UA (BEAKER) (test code = Negative Negative 462) BLOOD UA (BEAKER) (test code = 461) Negative Negative NITRITE UA (BEAKER) (test code = Negative Negative 465) LEUKOCYTE ESTERASE UA (BEAKER) Trace Negative A (test code = 466) UROBILINOGEN UA (BEAKER) (test code 0.2 mg/dL 0.2-1.0 = 463) RBC UA (BEAKER) (test code = 519) 5 /HPF WBC UA (BEAKER) (test code = 520) 7 /HPF BACTERIA (BEAKER) (test code = 517) Rare SQUAMOUS EPITHELIAL (BEAKER) (test 3 /HPF code = 516) CRYSTALS, URINE (BEAKER) (test code None Seen = 1521) SOURCE(BEAKER) (test code = 2795) Chrome Tanning Drum Operator ID - [auto]Chrome Tanning Drum Operator ID - techPOCT-GLUCOSE [id number] 18:31:06 Test Item Value Reference Range Interpretation Comments POC-GLUCOSE METER 95 mg/dL 70-110 : TESTED A T [facility] 6720 (BEAKER) (test code = JAMIE Cabrales [facility], 1538) [address]: Chrome Tanning Drum Operator/Techni kaushik ID = [id number] for MARIANGEL PLEITEZ, DANAY RAD, CHEST, 1 VIEW, NON [id number] 14:59:00Reason for exam:->follwo up interstitial infeiltratesShould this be performed at the bedside?->Yes [facility] 1935 Sex: FFINAL REPORT Chest one view. Clinical history: follow up interstitial infiltrates Comparison: March 17, 2021 Discussion: A frontal chest is provided. Cardiomediastinal contours are unchanged. Tip of [place] projects over the stomach. There is no juana pulmonary edema, consolidation, pneumothorax, or large effusion. Interstitial prominence has resolved. Signed: Parisa Vanegas Verified Date/Time: 03/20/2021 14:59:46 Reading Location: [facility] B1 [id number] Ortho Consult Reading Room POCT-GLUCOSE [id number] 12:21:05 Test Item Value Reference Range Interpretation Comments POC-GLUCOSE METER 78 mg/dL 70-110 : TESTED A T [facility] 6720 (BEAKER) (test code = JAMIE Cabrales [facility], 1538) [address]: Chrome Tanning Drum Operator/Techni kaushik ID = [id number] for MARIANGEL PLEITEZ, DANAY CT, BRAIN, WITHOUT [id number] 12:04:00Unlisted Reason for Exam - Click Yes and Enter Reason Below->No [facility] : 1935 Sex: FAddendum BeginsREPORT STATUS:A 3-D reconstructions were obtained anastasia separate workstation and added to PACS after the report was finalized. There is no significant change to the initial interpretation. Signed: Lucia Jones Verified Date/Time: 03/20/2021 12:04:41 Addendum EndsFINAL REPORT CLINICAL HISTORY: Stroke, follow up TECHNIQUE: Initially, noncontrast CT head was performed. Contiguous contrast-enhanced axial images through theneck followed by axial images through the head with coronal and sagittal reformations to assess the arterial circulation. 3-D reconstructions were not available at time of interpretation. This exam was performed according to the departmental dose optimization program which includes automated exposure control, adjustment of the mA and/or kV according to the patient size, and/or use of an iterative reconstruction technique. Stenosis evaluation reported in compliance with NASCET criteria. COMPARISON: CT head 03/18/2021 FINDINGS: CTA head:Please note that CTA is inherently insensitive in evaluating thecavernous and skullbase portions of the internal carotid arteries because of adjacent bone and venous opacification. Exam is degraded by motion. There is no CT evidence of acute infarct or hemorrhage. Generalized cerebral atrophy with ex vacuo dilatation of the ventricular system proportionate to sulci. Scattered foci of hypoattenuation within the periventricular and subcortical white matter are a nonspecific finding commonly attributed to chronic small vessel ischemic disease. There is no hydrocephalus or midline shift. The skull is intact. Bilateral lens replacements. No major branch vessel occlusion. Atherosclerosis in the bilateral V4 segments resulting in moderate multifocal stenoses. Moderate stenosis of the right P1 segment. Atherosclerosis of the bilateral cavernous and paraclinoid ICAs without flow-limiting stenosis. There is no evidence of intracranial aneurysm. The major intradural venous sinuses are patent. CTA neck:Great vessel origins: No occlusion or high-grade stenosis. Carotid arteries: Advanced atherosclerosis in the carotid bifurcations. There is approximately 60% focal stenosis of the right proximal ICA and 40% focal stenosis of the left ICA. Vertebral arteries: No occlusion or high-grade stenosis. No fracture or suspicious osseous lesion. Cervical soft tissues are unremarkable. Visualized lung apices are clear. IMPRESSION:1.No intracranial hemorrhage or CT evidence of acute territorial infarct.2.No proximal branch arterial occlusion within the head and neck.3.Moderate multifocal stenoses of the right P1 and bilateral V4 segments.4.Approximately 60% focal stenosis of the right ICA and 40% focal stenosis of the left ICA per NASCET criteria. Signed: Kathe Jones Verified Date/Time: 03/19/2021 17:19:[address] [facility] BRA[facility] 2021-03-20 12:04:00Unlisted Reason for Exam - Click Yes and Enter Reason Below->NoXU [facility] 1935 Sex: FAddendum BeginsREPORT STATUS:A 3-D reconstructions were obtained anastasia separate workstation and added to PACS after the report was finalized. There is no significant change to the initial interpretation. Signed: Lucia Jones MDReport Verified Date/Time: 03/20/2021 12:04:41 Addendum EndsFINAL REPORT CLINICAL HISTORY: Stroke, follow up TECHNIQUE: Initially, noncontrast CT head was performed. Contiguous contrast-enhanced axial images through theneck followed by axial images through the head with coronal and sagittal reformations to assess the arterial circulation. 3-D reconstructions were not available at time of interpretation. This exam was performed according to the departmental dose optimization program which includes automated exposure control, adjustment of the mA and/or kV according to the patient size, and/or use of an iterative reconstruction technique. Stenosis evaluation reported in compliance with NASCET criteria. COMPARISON: CT head 03/18/2021 FINDINGS: CTA head:Please note that CTA is inherently insensitive in evaluating thecavernous and skullbase portions of the internal carotid arteries because of adjacent bone and venous opacification. Exam is degraded by motion. There is no CT evidence of acute infarct or hemorrhage. Generalized cerebral atrophy with ex vacuo dilatation of the ventricular system proportionate to sulci. Scattered foci of hypoattenuation within the periventricular and subcortical white matter are a nonspecific finding commonly attributed to chronic small vessel ischemic disease. There is no hydrocephalus or midline shift. The skull is intact. Bilateral lens replacements. No major branch vessel occlusion. Atherosclerosis in the bilateral V4 segments resulting in moderate multifocal stenoses. Moderate stenosis of the right P1 segment. Atherosclerosis of the bilateral cavernous and paraclinoid ICAs without flow-limiting stenosis. There is no evidence of intracranial aneurysm. The major intradural venous sinuses are patent. CTA neck:Great vessel origins: No occlusion or high-grade stenosis. Carotid arteries: Advanced atherosclerosis in the carotid bifurcations. There is approximately 60% focal stenosis of the right proximal ICA and 40% focal stenosis of the left ICA. Vertebral arteries: No occlusion or high-grade stenosis. No fracture or suspicious osseous lesion. Cervical soft tissues are unremarkable. Visualized lung apices are clear. IMPRESSION:1.No intracranial hemorrhage or CT evidence of acute territorial infarct.2.No proximal branch arterial occlusion within the head and neck.3.Moderate multifocal stenoses of the right P1 and bilateral V4 segments.4.Approximately 60% focal stenosis of the right ICA and 40% focal stenosis of the left ICA per NASCET criteria. Signed: Kathe Jones Verified Date/Time: 03/19/2021 17:19:49 CT, CAROTID, ANGIO 2021-03-20 12:04:00Unlisted Reason for Exam - Click Yes and Enter Reason Below->NoUK[facility] : 1935 Sex: FAddendum BeginsREPORT STATUS:A 3-D reconstructions were obtained anastasia separate workstation and added to PACS after the report was finalized. There is no significant change to the initial interpretation. Signed: Lucia Jones Verified Date/Time: 03/20/2021 12:04:41 Addendum EndsFINAL REPORT CLINICAL HISTORY: Stroke, follow up TECHNIQUE: Initially, noncontrast CT head was performed. Contiguous contrast-enhanced axial images through theneck followed by axial images through the head with coronal and sagittal reformations to assess the arterial circulation. 3-D reconstructions were not available at time of interpretation. This exam was performed according to the departmental dose optimization program which includes automated exposure control, adjustment of the mA and/or kV according to the patient size, and/or use of an iterative reconstruction technique. Stenosis evaluation reported in compliance with NASCET criteria. COMPARISON: CT head 03/18/2021 FINDINGS: CTA head:Please note that CTA is inherently insensitive in evaluating thecavernous and skullbase portions of the internal carotid arteries because of adjacent bone and venous opacification. Exam is degraded by motion. There is no CT evidence of acute infarct or hemorrhage. Generalized cerebral atrophy with ex vacuo dilatation of the ventricular system proportionate to sulci. Scattered foci of hypoattenuation within the periventricular and subcortical white matter are a nonspecific finding commonly attributed to chronic small vessel ischemic disease. There is no hydrocephalus or midline shift. The skull is intact. Bilateral lens replacements. No major branch vessel occlusion. Atherosclerosis in the bilateral V4 segments resulting in moderate multifocal stenoses. Moderate stenosis of the right P1 segment. Atherosclerosis of the bilateral cavernous and paraclinoid ICAs without flow-limiting stenosis. There is no evidence of intracranial aneurysm. The major intradural venous sinuses are patent. CTA neck:Great vessel origins: No occlusion or high-grade stenosis. Carotid arteries: Advanced atherosclerosis in the carotid bifurcations. There is approximately 60% focal stenosis of the right proximal ICA and 40% focal stenosis of the left ICA. Vertebral arteries: No occlusion or high-grade stenosis. No fracture or suspicious osseous lesion. Cervical soft tissues are unremarkable. Visualized lung apices are clear. IMPRESSION:1.No intracranial hemorrhage or CT evidence of acute territorial infarct.2.No proximal branch arterial occlusion within the head and neck.3.Moderate multifocal stenoses of the right P1 and bilateral V4 segments.4.Approximately 60% focal stenosis of the right ICA and 40% focal stenosis of the left ICA per NASCET criteria. Signed: Kathe Jones Verified Date/Time: 03/19/2021 17:19:49 POCT-GLUCOSE METER 2021-03-20 07:05:40 Test Item Value Reference Range Interpretation Comments POC-GLUCOSE METER 73 mg/dL 70-110 : TESTED A T [facility] 6720 (BEAKER) (test code = [place], 1538) [address]: Chrome Tanning Drum Operator/Techni kaushik ID = [id number] for ABISAI WEINER [id number] 06:26:24 Test Item Value Reference Range Interpretation Comments MAGNESIUM (BEAKER) (test code = 2.4 mg/dL 1.6-2.6 627) Chrome Tanning Drum Operator ID - CATRACHO [id number] 06:26:24 Test Item Value Reference Range Interpretation Comments PHOSPHORUS (BEAKER) (test code = 5.5 mg/dL 2.3-4.7 H 604) Chrome Tanning Drum Operator ID - CATRACHO MCOMPREHENSIVE METABOLIC [id number] 06:26:23 Test Item Value Reference Range Interpretation Comments TOTAL PROTEIN 5.7 gm/dL 6.0-8.3 L (BEAKER) (test code = 770) ALBUMIN (BEAKER) 3.5 g/dL 3.5-5.0 (test code = 1145) ALKALINE PHOSPHATASE 54 U/L 40-150 (BEAKER) (test code = 346) BILIRUBIN TOTAL 0.6 mg/dL 0.2-1.2 (BEAKER) (test code = 377) SODIUM (BEAKER) (test 140 meq/L 136-145 code = 381) POTASSIUM (BEAKER) 4.4 meq/L 3.5-5.1 (test code = 379) CHLORIDE (BEAKER) 109 meq/L 98-107 H (test code = 382) CO2 (BEAKER) (test 19 meq/L 22-29 L code = 355) BLOOD UREA NITROGEN 42 mg/dL 7-21 H (BEAKER) (test code = 354) CREATININE (BEAKER) 1.61 mg/dL 0.57-1.25 H (test code = 358) GLUCOSE RANDOM 80 mg/dL 70-105 (BEAKER) (test code = 652) CALCIUM (BEAKER) 9.5 mg/dL 8.4-10.2 (test code = 697) AST (SGOT) (BEAKER) 29 U/L 5-34 (test code = 353) ALT (SGPT) (BEAKER) 20 U/L 6-55 (test code = 347) EGFR (BEAKER) (test 31 mL/min/1.73 ESTIMA KLAUS GFR IS code = 1092) sq m NOT ACCURATE CREATININE CLEARANCE IN PREDICTING GLOMERULAR FILTRATION RATE . ESTIMATED GFR I S NOT APPLICABLE FOR DIALYSIS PATIEN TS. Chrome Tanning Drum Operator ID - CATRACHO MCBC W/PLT COUNT & AUTO [id number] 06:10:19 Test Item Value Reference Range Interpretation Comments WHITE BLOOD CELL COUNT 6.5 K/ L 3.5-10.5 (BEAKER) (test code = 775) RED BLOOD CELL COUNT 3.02 M/ L 3.93-5.22 L (BEAKER) (test code = 761) HEMOGLOBIN (BEAKER) 9.8 GM/DL 11.2-15.7 L (test code = 410) HEMATOCRIT (BEAKER) 31.0 % 34.1-44.9 L (test code = 411) MEAN CORPUSCULAR 102.6 fL 79.4-94.8 H Discordant with VOLUME (BEAKER) (test previo us code = 753) result.clinical correlation is required. MEAN CORPUSCULAR 32.5 pg 25.6-32.2 H HEMOGLOBIN (BEAKER) (test code = 751) MEAN CORPUSCULAR 31.6 GM/DL 32.2-35.5 L HEMOGLOBIN CONC (BEAKER) (test code = 752) RED CELL DISTRIBUTION 12.6 % 11.7-14.4 WIDTH (BEAKER) (test code = 412) PLATELET COUNT 203 K/CU MM 150-450 (BEAKER) (test code = 756) MEAN PLATELET VOLUME 11.3 fL 9.4-12.3 (BEAKER) (test code = 754) NUCLEATED RED BLOOD 0 /100 WBC 0-0 CELLS (BEAKER) (test code = 413) NEUTROPHILS RELATIVE 70 % PERCENT (BEAKER) (test code = 429) LYMPHOCYTES RELATIVE 14 % PERCENT (BEAKER) (test code = 430) MONOCYTES RELATIVE 11 % PERCENT (BEAKER) (test code = 431) EOSINOPHILS RELATIVE 4 % PERCENT (BEAKER) (test code = 432) BASOPHILS RELATIVE 1 % PERCENT (BEAKER) (test code = 437) NEUTROPHILS ABSOLUTE 4.56 K/ L 1.56-6.13 COUNT (BEAKER) (test code = 670) LYMPHOCYTES ABSOLUTE 0.94 K/ L 1.18-3.74 L COUNT (BEAKER) (test code = 414) MONOCYTES ABSOLUTE 0.71 K/ L 0.24-0.36 H COUNT (BEAKER) (test code = 415) EOSINOPHILS ABSOLUTE 0.26 K/ L 0.04-0.36 COUNT (BEAKER) (test code = 416) BASOPHILS ABSOLUTE 0.03 K/ L 0.01-0.08 COUNT (BEAKER) (test code = 417) IMMATURE 1 % 0-1 GRANULOCYTES-RELATIVE PERCENT (BEAKER) (test code = 2801) POCT-GLUCOSE [id number] 00:30:31 Test Item Value Reference Range Interpretation Comments POC-GLUCOSE METER 80 mg/dL 70-110 : [facility] (BEAKER) (test code = [facility], 1538) [id number]: Chrome Tanning Drum Operator/Techni kaushik ID = [id number] for TIFFANIE DONALDSON POCT-GLUCOSE [id number] 17:50:50 Test Item Value Reference Range Interpretation Comments POC-GLUCOSE METER 93 mg/dL 70-110 : [facility] (BEAKER) (test code = [facility], 1538) 60782: Chrome Tanning Drum Operator/Techni kaushik ID = [id number] for ELIANA MASSEYILIA SARS-COV2/RT-PCR ([facility])2021-03-19 13:50:07 Test Item Value Reference Range Interpretation Comments SARS-COV2/RT-PCR (test Negative Not Detected, Negative, code = 0179661) See external report for linked test SARS-COV-2 PERFORMING LAB [facility] (test code = 6065252) Negative result for this test determines that SARS-CoV-2 RNA was not present in the specimen above the Limit of Detection (LOD). However, Negative results do not preclude SARS-CoV-2 infection and should not be used as the sole basis for treatment or patient management decisions. Negative results mustbe combined with clinical observations, patient history, and epidemiological information. A false negative result may occur if a specimen is improperly collected, transported or handled. A false negative result should be considered if patient's recent exposures or clinical presentation indicate that COVID-19 (SARS-CoV-2) is likely and diagnostic tests for other causes of illness are negative. Re-testing should be considered in cases of suspected false negatives.The limit of detection for this assay is 800 copies/mL.This SARS CoV-2 test is a real-time RT-PCR test intended for the qualitative detection of nucleic acid from SARS-CoV-2 in a nasopharyngeal swab specimen collected from individuals suspected of COVID-19 by their healthcare provider.This test has not been Food and Drug Administration (FDA) cleared or approved. This is a modified version of an approved Emergency Use Authorization (EUA) and is in the process of review by the FDA. Once authorized by the FDA, the issued EUA will be effective until the declaration that circumstances exist justifying the authorization of the emergency use of in vitro diagnostic tests for detection and/or diagnosis of COVID-19 is terminated under Section 564(b)(2) of the Act or the EUA is revoked under Section 564(g) of the Act.Fact Sheet for Healthcare Providers:https://www.[employer]/sites/default/files/product/documents/Fact_Shee w_FW_Arqlzjbqt_Eijy_NXTE-DlS-2.pdfFact Sheet for Healthcare Patients:https://www.[employer]/sites/default/files/product/ documents/Efiy_Ymtrb_Mcgfjoyx_Kpos_OBDS-GoN-6.pdfPerforming Laboratory:[facility], [place] [address]GIIM-MXVLGAB METER 2021-03-19 12:25:24 Test Item Value Reference Range Interpretation Comments POC-GLUCOSE METER 99 mg/dL 70-110 : TESTED A T [facility] 67[facility] (ForeSee) (test code = [facility], 1538) 58104: Chrome Tanning Drum Operator/Techni kaushik ID = [id number] for DANAY MASSEY [id number] 11:06:15 Test Item Value Reference Range Interpretation Comments RPR SCREEN (ForeSee) (test code = Nonreactive Nonreactive 420) POCT-GLUCOSE [id number] 06:58:31 Test Item Value Reference Range Interpretation Comments POC-GLUCOSE METER 96 mg/dL 70-110 : TESTED A T [facility] 6720 (ForeSee) (test code = [facility], 1538) 34939: Chrome Tanning Drum Operator/Techni kaushik ID = [id number] for Mavis Noonan [id number] 06:11:28 Test Item Value Reference Range Interpretation Comments MAGNESIUM (BEAKER) (test code = 2.1 mg/dL 1.6-2.6 627) Chrome Tanning Drum Operator ID - SHAE [id number] 06:11:28 Test Item Value Reference Range Interpretation Comments PHOSPHORUS (BEAKER) (test code = 4.0 mg/dL 2.3-4.7 604) Chrome Tanning Drum Operator ID - SHAE LCOMPREHENSIVE METABOLIC [id number] 06:11:27 Test Item Value Reference Range Interpretation Comments TOTAL PROTEIN 6.5 gm/dL 6.0-8.3 (BEAKER) (test code = 770) ALBUMIN (BEAKER) 3.8 g/dL 3.5-5.0 (test code = 1145) ALKALINE PHOSPHATASE 64 U/L 40-150 (BEAKER) (test code = 346) BILIRUBIN TOTAL 0.7 mg/dL 0.2-1.2 (BEAKER) (test code = 377) SODIUM (BEAKER) (test 137 meq/L 136-145 code = 381) POTASSIUM (BEAKER) 5.0 meq/L 3.5-5.1 (test code = 379) CHLORIDE (BEAKER) 105 meq/L 98-107 (test code = 382) CO2 (BEAKER) (test 18 meq/L 22-29 L code = 355) BLOOD UREA NITROGEN 35 mg/dL 7-21 H (BEAKER) (test code = 354) CREATININE (BEAKER) 1.32 mg/dL 0.57-1.25 H (test code = 358) GLUCOSE RANDOM 96 mg/dL 70-105 (BEAKER) (test code = 652) CALCIUM (BEAKER) 10.0 mg/dL 8.4-10.2 (test code = 697) AST (SGOT) (BEAKER) 33 U/L 5-34 (test code = 353) ALT (SGPT) (BEAKER) 20 U/L 6-55 (test code = 347) EGFR (BEAKER) (test 38 mL/min/1.73 ESTIMA KLAUS GFR IS code = 1092) sq m NOT ACCURATE CREATININE CLEARANCE IN PREDICTING GLOMERULAR FILTRATION RATE . ESTIMATED GFR I S NOT APPLICABLE FOR DIALYSIS PATIEN TS. Chrome Tanning Drum Operator ID - PIAYA LCBC W/PLT COUNT & AUTO [id number] 06:07:52 Test Item Value Reference Range Interpretation Comments WHITE BLOOD CELL COUNT (BEAKER) 13.3 K/ L 3.5-10.5 H (test code = 775) RED BLOOD CELL COUNT (BEAKER) 3.38 M/ L 3.93-5.22 L (test code = 761) HEMOGLOBIN (BEAKER) (test code = 10.9 GM/DL 11.2-15.7 L 410) HEMATOCRIT (BEAKER) (test code = 33.1 % 34.1-44.9 L 411) MEAN CORPUSCULAR VOLUME (BEAKER) 97.9 fL 79.4-94.8 H (test code = 753) MEAN CORPUSCULAR HEMOGLOBIN 32.2 pg 25.6-32.2 (BEAKER) (test code = 751) MEAN CORPUSCULAR HEMOGLOBIN CONC 32.9 GM/DL 32.2-35.5 (BEAKER) (test code = 752) RED CELL DISTRIBUTION WIDTH 12.4 % 11.7-14.4 (BEAKER) (test code = 412) PLATELET COUNT (BEAKER) (test 250 K/CU MM 150-450 code = 756) MEAN PLATELET VOLUME (BEAKER) 10.7 fL 9.4-12.3 (test code = 754) NUCLEATED RED BLOOD CELLS 0 /100 WBC 0-0 (BEAKER) (test code = 413) NEUTROPHILS RELATIVE PERCENT 79 % (BEAKER) (test code = 429) LYMPHOCYTES RELATIVE PERCENT 10 % (BEAKER) (test code = 430) MONOCYTES RELATIVE PERCENT 9 % (BEAKER) (test code = 431) EOSINOPHILS RELATIVE PERCENT 2 % (BEAKER) (test code = 432) BASOPHILS RELATIVE PERCENT 0 % (BEAKER) (test code = 437) NEUTROPHILS ABSOLUTE COUNT 10.49 K/ L 1.56-6.13 H (BEAKER) (test code = 670) LYMPHOCYTES ABSOLUTE COUNT 1.27 K/ L 1.18-3.74 (BEAKER) (test code = 414) MONOCYTES ABSOLUTE COUNT (BEAKER) 1.19 K/ L 0.24-0.36 H (test code = 415) EOSINOPHILS ABSOLUTE COUNT 0.27 K/ L 0.04-0.36 (BEAKER) (test code = 416) BASOPHILS ABSOLUTE COUNT (BEAKER) 0.03 K/ L 0.01-0.08 (test code = 417) IMMATURE GRANULOCYTES-RELATIVE 0 % 0-1 PERCENT (BEAKER) (test code = 2801) POCT-GLUCOSE [id number] 00:26:50 Test Item Value Reference Range Interpretation Comments POC-GLUCOSE METER 94 mg/dL 70-110 : TESTED A T [facility] 6720 (BEAKER) (test code = JAMIE Cabrales [facility], 1538) 306[address]: Chrome Tanning Drum Operator/Techni kaushik ID = [id number] for Weav er, Mavis RAD, ABDOMEN/KUB, 1 VIEW [id number] 22:24:00Reason for exam:->corpak placement[facility]ED [facility]: [facility]EL [facility] : 1935 Sex: FFINAL REPORT CLINICAL HISTORY: Feeding tube placement COMPARISON: N one. FINDINGS: A single supine image of the abdomen is submitted. The tip of a feeding tube overliesthe expected position of the gastric pylorus/duodenal bulb. Advancement can be considered if definitive placement in the duodenum is intended. The abdominal bowel gas pattern is unobstructed. There is no focus of dilated large or small bowel. There is no evidence of organomegaly or significant ascites. Atherosclerotic calcifications are present in the abdomen and pelvis. There is no acute bony abnormality. Signed: Silver Coburn Verified Date/Time: 03/18/2021 22:24:48 POCT-GLUCOSE [id number] 18:14:14 Test Item Value Reference Range Interpretation Comments POC-GLUCOSE METER 103 mg/dL 70-110 : TESTED A T [facility] 6720 (BEAKER) (test code = JAMIE Cabrales [facility], 1538) 855[address]: Chrome Tanning Drum Operator/Techni kaushik ID = [id number] for Karen Arauz POCT-GLUCOSE [id number] 06:34:39 Test Item Value Reference Range Interpretation Comments POC-GLUCOSE METER 106 mg/dL 70-110 : TESTED A T [facility] 6720 (BEAKER) (test code = JAMIE Cabrales [facility], 1538) 63080: Chrome Tanning Drum Operator/Techni kaushik ID = [id number] for CYRUS GRANADO CT, BRAIN, WITHOUT [id number] 04:55:00Unlisted Reason for Exam - Click Yes and Enter Reason Below->No [facility] : 1935 Sex: FFINAL REPORT CT, BRAIN, WITHOUT CONTRAST CLINICAL INDICATION: Stroke, follow up COMPARISON: 02/16/2018 TECHNIQUE: Noncontrast axial CT imaging of the brain and skull. Coronal and sagittal reformats obtained. DOSE REDUCTION: Dose modulation, iterative reconstruction, and/or weight-based adjustment of the mA/kV was utilized to reduce the radiation dose to as low as reasonably achievable. FINDINGS: Motion limited exam.Cerebral parenchyma: Global parenchymal volume lossand white matter hypoattenuation. No mass, acute intracranial hemorrhage or convincing evidence of acute cortical infarct.Cerebellum and brainstem: Left cerebellar hemisphere and vermis hypoattenuation.Ventricles: No acute hydrocephalus.Extra-axial spaces: Unremarkable. Calvarium and skull base: Intact.Paranasal sinuses and mastoid air cells: Imaged chambers are without acute abnormality.Orbital contents: Included portions unremarkable. IMPRESSION: Motion limited examination. Moderate cerebral andcerebellar chronic ischemic changes but correlation with MRI brain to exclude acute on chronic ischemia should be considered given extensive motion degradation. Signed: Justin Mattson MDReport Verified Date/Time: 03/18/2021 04:55:48 HIGH SENSITIVITY TROPONIN [id number] 04:28:08 Test Item Value Reference Range Interpretation Comments HIGH SENSITIVITY 2424 pg/ml See_Comment HH [Automated message] TROPONIN I (test code The sy stem which = [id number]) generated this result transmitted ref erence range: <=17. Th e reference range was not used to int erpret this result as normal/abnormal . Chrome Tanning Drum Operator ID - PIAYA LThe CYBER ENGINEER STAT High Sensitivity Troponin-I results should be used in conjunction with other diagnostic information such as ECG, clinical observations and information, and patient symptoms to aid in the diagnosis of AL.COMPREHENSIVE METABOLIC [id number] 04:26:59 Test Item Value Reference Range Interpretation Comments TOTAL PROTEIN 5.3 gm/dL 6.0-8.3 L Specimen sligh tly (BEAKER) (test code = hemoly zed 770) ALBUMIN (BEAKER) 3.2 g/dL 3.5-5.0 L Specimen sl ightly (test code = 1145) hemolyzed ALKALINE PHOSPHATASE 54 U/L 40-150 (BEAKER) (test code = 346) BILIRUBIN TOTAL 0.7 mg/dL 0.2-1.2 Specimen sli ghtly (BEAKER) (test code = hemoly zed 377) SODIUM (BEAKER) (test 133 meq/L 136-145 L code = 381) POTASSIUM (BEAKER) 5.6 meq/L 3.5-5.1 H Specimen slightly (test code = 379) hemolyzed CHLORIDE (BEAKER) 106 meq/L 98-107 (test code = 382) CO2 (BEAKER) (test 19 meq/L 22-29 L code = 355) BLOOD UREA NITROGEN 29 mg/dL 7-21 H (BEAKER) (test code = 354) CREATININE (BEAKER) 1.33 mg/dL 0.57-1.25 H Specimen slightly (test code = 358) hemolyzed GLUCOSE RANDOM 110 mg/dL 70-105 H (BEAKER) (test code = 652) CALCIUM (BEAKER) 8.8 mg/dL 8.4-10.2 (test code = 697) AST (SGOT) (BEAKER) 28 U/L 5-34 Specimen slightly (test code = 353) hemolyzed ALT (SGPT) (BEAKER) 16 U/L 6-55 Specimen slightly (test code = 347) hemolyzed EGFR (BEAKER) (test 38 mL/min/1.73 ESTIMA KLAUS GFR IS code = 1092) sq m NOT ACCURATE CREATININE CLEARANCE IN PREDICTING GLOMERULAR FILTRATION RATE . ESTIMATED GFR I S NOT APPLICABLE FOR DIALYSIS PATIEN TS. Chrome Tanning Drum Operator ID - PIDOUGLAS [id number] 04:26:58 Test Item Value Reference Range Interpretation Comments MAGNESIUM (BEAKER) 2.4 mg/dL 1.6-2.6 Specimen slightly (test code = 627) hemolyzed Chrome Tanning Drum Operator ID - PIDOUGLAS [id number] 04:26:58 Test Item Value Reference Range Interpretation Comments PHOSPHORUS (BEAKER) 3.7 mg/dL 2.3-4.7 Specimen slightly (test code = 604) hemolyzed Chrome Tanning Drum Operator ID - PIDOUGLAS LCBC W/PLT COUNT & AUTO [id number] 04:21:01 Test Item Value Reference Range Interpretation Comments WHITE BLOOD CELL COUNT (BEAKER) 7.0 K/ L 3.5-10.5 (test code = 775) RED BLOOD CELL COUNT (BEAKER) 2.94 M/ L 3.93-5.22 L (test code = 761) HEMOGLOBIN (BEAKER) (test code = 9.5 GM/DL 11.2-15.7 L 410) HEMATOCRIT (BEAKER) (test code = 29.5 % 34.1-44.9 L 411) MEAN CORPUSCULAR VOLUME (BEAKER) 100.3 fL 79.4-94.8 H (test code = 753) MEAN CORPUSCULAR HEMOGLOBIN 32.3 pg 25.6-32.2 H (BEAKER) (test code = 751) MEAN CORPUSCULAR HEMOGLOBIN CONC 32.2 GM/DL 32.2-35.5 (BEAKER) (test code = 752) RED CELL DISTRIBUTION WIDTH 12.2 % 11.7-14.4 (BEAKER) (test code = 412) PLATELET COUNT (BEAKER) (test 106 K/CU MM 150-450 L code = 756) MEAN PLATELET VOLUME (BEAKER) 11.4 fL 9.4-12.3 (test code = 754) NUCLEATED RED BLOOD CELLS 0 /100 WBC 0-0 (BEAKER) (test code = 413) NEUTROPHILS RELATIVE PERCENT 79 % (BEAKER) (test code = 429) LYMPHOCYTES RELATIVE PERCENT 11 % (BEAKER) (test code = 430) MONOCYTES RELATIVE PERCENT 8 % (BEAKER) (test code = 431) EOSINOPHILS RELATIVE PERCENT 2 % (BEAKER) (test code = 432) BASOPHILS RELATIVE PERCENT 0 % (BEAKER) (test code = 437) NEUTROPHILS ABSOLUTE COUNT 5.51 K/ L 1.56-6.13 (BEAKER) (test code = 670) LYMPHOCYTES ABSOLUTE COUNT 0.77 K/ L 1.18-3.74 L (BEAKER) (test code = 414) MONOCYTES ABSOLUTE COUNT (BEAKER) 0.55 K/ L 0.24-0.36 H (test code = 415) EOSINOPHILS ABSOLUTE COUNT 0.15 K/ L 0.04-0.36 (BEAKER) (test code = 416) BASOPHILS ABSOLUTE COUNT (BEAKER) 0.02 K/ L 0.01-0.08 (test code = 417) IMMATURE GRANULOCYTES-RELATIVE 0 % 0-1 PERCENT (BEAKER) (test code = 2801) POCT-GLUCOSE [id number] 00:41:25 Test Item Value Reference Range Interpretation Comments POC-GLUCOSE METER 106 mg/dL 70-110 : TESTED A T [facility] 6720 (BEAKER) (test code = JAMIE Cabrales [facility], 1538) [address]: Chrome Tanning Drum Operator/Techni kaushik ID = [id number] for CYRUS GRANADO HIGH SENSITIVITY TROPONIN [id number] 16:58:20 Test Item Value Reference Range Interpretation Comments HIGH SENSITIVITY 4622 pg/ml See_Comment HH [Automated message] TROPONIN I (test code The stem which = [id number]) generated this result transmitted ref erence range: <=17. Th e reference range was not used to int erpret this result as normal/abnormal . Chrome Tanning Drum Operator ID - CATRACHO [facility] CYBER ENGINEER STAT High Sensitivity Troponin-I results should be used in conjunction with other diagnostic information such as ECG, clinical observations and information, and patient symptoms to aid in the diagnosis of AL.HEMOGLOBIN [id number] 13:03:51 Test Item Value Reference Range Interpretation Comments HEMOGLOBIN A1C (FELISHA) (test code = 5.7 % 4.3-6.1 368) HIGH SENSITIVITY TROPONIN [id number] 08:36:08 Test Item Value Reference Range Interpretation Comments HIGH SENSITIVITY 5997 pg/ml See_Comment HH [Automated message] TROPONIN I (test code The sy stem which = [id number]) generated this result transmitted ref erence range: <=17. Th e reference range was not used to int erpret this result as normal/abnormal . Chrome Tanning Drum Operator ID - CATRACHO MThe CYBER ENGINEER STAT High Sensitivity Troponin-I results should be used in conjunction with other diagnostic information such as ECG, clinical observations and information, and patient symptoms to aid in the diagnosis of AL.Chrome Tanning Drum Operator ID - CATRACHO MRAD, CHEST, 1 VIEW, NON [id number] 06:47:00Reason for exam:->Desat [facility] : 1935 Sex: FFINAL REPORT RAD, CHEST, 1 VIEW, NON DEPT INDICATION: Desat COMPARIS ON: Prior day's exam FINDINGS: Portable frontal view of the chest. IMPRESSION: Support Lines: Overlying leads Lungs and pleura: Unchanged mild diffuse interstitial thickening, representing singly or in combination, interstitial edema and/or pneumonitis. No significant pneumothorax. Heart and mediastinum: Stable contours. Additional findings: None. Signed: Ankita Denis Verified Date/Time: 03/17/2021 06:47:48 POCT-GLUCOSE [id number] 06:40:01 Test Item Value Reference Range Interpretation Comments POC-GLUCOSE METER 102 mg/dL 70-110 : TESTED A T [facility] 6720 (BEAKER) (test code = [place]IE [place], 1538) [address]: Chrome Tanning Drum Operator/Techni kaushik ID = [id number] for EMILIE WESTON VITAMIN B12 AND [id number] 03:42:15 Test Item Value Reference Range Interpretation Comments VITAMIN B12 (BEAKER) 715 pg/mL 213-816 (test code = 774) FOLATE (AKER) 3.20 ng/mL See_Comment L [Automated message] (test code = 362) The system which generated this result transmitted ref erence range: >=7.00. The reference range was not used to interpr et this result as normal/abnormal . Chrome Tanning Drum Operator ID - CATRACHO MTSH/FREE T4 IF [id number] 03:42:14 Test Item Value Reference Range Interpretation Comments THYROID STIMULATING HORMONE 0.995 uIU/mL 0.350-4.940 ([employer]AKER) (test code = 772) Chrome Tanning Drum Operator ID - CATRACHO MHIGH SENSITIVITY TROPONIN [id number] 02:10:06 Test Item Value Reference Range Interpretation Comments HIGH SENSITIVITY 752 pg/ml See_Comment HH [Automated message] TROPONIN I (test code The sy stem which = [id number]) generated this result transmitted ref erence range: <=17. Th e reference range was not used to int erpret this result as normal/abnormal . Chrome Tanning Drum Operator ID - Perry CYBER ENGINEER STAT High Sensitivity Troponin-I results should be used in conjunctionwith other diagnostic information such as ECG, clinical observations and information, and patient symptoms to aid in the diagnosis of AL.B-TYPE NATRIURETIC FACTOR (BNP)2021-03-17 02:05:41 Test Item Value Reference Range Interpretation Comments B-TYPE NATRIURETIC PEPTIDE ([employer]AKER) 620 pg/mL 0-100 H (test code = 700) Chrome Tanning Drum Operator ID - JENNLACTIC ACID, [id number] 01:57:01 Test Item Value Reference Range Interpretation Comments LACTATE BLOOD VENOUS 0.59 mmol/L 0.50-2.20 Specime n moderately (2) (BEAKER) (test hemolyzed code = 2872) Chrome Tanning Drum Operator ID - DBCBC W/PLT COUNT & AUTO [id number] 01:39:26 Test Item Value Reference Range Interpretation Comments WHITE BLOOD CELL COUNT (BEAKER) 13.8 K/ L 3.5-10.5 H (test code = 775) RED BLOOD CELL COUNT (BEAKER) 3.23 M/ L 3.93-5.22 L (test code = 761) HEMOGLOBIN (BEAKER) (test code = 10.4 GM/DL 11.2-15.7 L 410) HEMATOCRIT (BEAKER) (test code = 32.7 % 34.1-44.9 L 411) MEAN CORPUSCULAR VOLUME (BEAKER) 101.2 fL 79.4-94.8 H (test code = 753) MEAN CORPUSCULAR HEMOGLOBIN 32.2 pg 25.6-32.2 (BEAKER) (test code = 751) MEAN CORPUSCULAR HEMOGLOBIN CONC 31.8 GM/DL 32.2-35.5 L (BEAKER) (test code = 752) RED CELL DISTRIBUTION WIDTH 12.1 % 11.7-14.4 (BEAKER) (test code = 412) PLATELET COUNT (BEAKER) (test 197 K/CU MM 150-450 code = 756) MEAN PLATELET VOLUME (BEAKER) 10.9 fL 9.4-12.3 (test code = 754) NUCLEATED RED BLOOD CELLS 0 /100 WBC 0-0 (BEAKER) (test code = 413) NEUTROPHILS RELATIVE PERCENT 86 % (BEAKER) (test code = 429) LYMPHOCYTES RELATIVE PERCENT 5 % (BEAKER) (test code = 430) MONOCYTES RELATIVE PERCENT 8 % (BEAKER) (test code = 431) EOSINOPHILS RELATIVE PERCENT 1 % (BEAKER) (test code = 432) BASOPHILS RELATIVE PERCENT 0 % (BEAKER) (test code = 437) NEUTROPHILS ABSOLUTE COUNT 11.86 K/ L 1.56-6.13 H (BEAKER) (test code = 670) LYMPHOCYTES ABSOLUTE COUNT 0.68 K/ L 1.18-3.74 L (BEAKER) (test code = 414) MONOCYTES ABSOLUTE COUNT (BEAKER) 1.05 K/ L 0.24-0.36 H (test code = 415) EOSINOPHILS ABSOLUTE COUNT 0.07 K/ L 0.04-0.36 (BEAKER) (test code = 416) BASOPHILS ABSOLUTE COUNT (BEAKER) 0.03 K/ L 0.01-0.08 (test code = 417) IMMATURE GRANULOCYTES-RELATIVE 1 % 0-1 PERCENT (BEAKER) (test code = 2801) [id number] 01:36:41 Test Item Value Reference Range Interpretation Comments PHOSPHORUS (BEAKER) (test code = 3.6 mg/dL 2.3-4.7 604) [employer] ID - DBLIPID [id number] 01:36:41 Test Item Value Reference Range Interpretation Comments TRIGLYCERIDES (BEAKER) (test code = 60 mg/dL 540) CHOLESTEROL (BEAKER) (test code = 163 mg/dL 631) HDL CHOLESTEROL (BEAKER) (test code 62 mg/dL = 976) LDL CHOLESTEROL CALCULATED (BEAKER) 89 mg/dL (test code = 633) Triglyceride Reference Range: Low Risk <150 Borderline 150-199 High Risk 200-499 Very High Risk >=500Cholesterol Reference Range: Low Risk <200 Borderline 200-239 High Risk >240HDL Cholesterol Reference Range: Low Risk >=60 High Risk <40LDL Cholesterol Reference Range: Optimal <100 Near Optimal 100-129 Borderline 130-159 High 160-189 Very High >=190 [employer] ID - DBCOMPREHENSIVE METABOLIC [id number] 01:36:40 Test Item Value Reference Range Interpretation Comments TOTAL PROTEIN 5.7 gm/dL 6.0-8.3 L (BEAKER) (test code = 770) ALBUMIN (BEAKER) 3.6 g/dL 3.5-5.0 (test code = 1145) ALKALINE PHOSPHATASE 67 U/L 40-150 (BEAKER) (test code = 346) BILIRUBIN TOTAL 0.5 mg/dL 0.2-1.2 (BEAKER) (test code = 377) SODIUM (BEAKER) (test 133 meq/L 136-145 L code = 381) POTASSIUM (BEAKER) 4.8 meq/L 3.5-5.1 (test code = 379) CHLORIDE (BEAKER) 101 meq/L 98-107 (test code = 382) CO2 (BEAKER) (test 24 meq/L 22-29 code = 355) BLOOD UREA NITROGEN 25 mg/dL 7-21 H (BEAKER) (test code = 354) CREATININE (BEAKER) 1.24 mg/dL 0.57-1.25 (test code = 358) GLUCOSE RANDOM 112 mg/dL 70-105 H (BEAKER) (test code = 652) CALCIUM (BEAKER) 9.0 mg/dL 8.4-10.2 (test code = 697) AST (SGOT) (BEAKER) 20 U/L 5-34 (test code = 353) ALT (SGPT) (BEAKER) 18 U/L 6-55 (test code = 347) EGFR (BEAKER) (test 41 mL/min/1.73 ESTIMA KLAUS GFR IS code = 1092) sq m NOT ACCURATE CREATININE CLEARANCE IN PREDICTING GLOMERULAR FILTRATION RATE . ESTIMATED GFR I S NOT APPLICABLE FOR DIALYSIS PATIEN TS. [employer] Drum Operator ID - [id number] 01:36:40 Test Item Value Reference Range Interpretation Comments MAGNESIUM (BEAKER) (test code = 1.6 mg/dL 1.6-2.6 627) [employer] Operator ID - [id number] 01:26:37 Test Item Value Reference Range Interpretation Comments FIBRINOGEN LEVEL (BEAKER) (test 227 mg/dl 225-434 code = 658) [id number] 01:26:37 Test Item Value Reference Range Interpretation Comments PARTIAL THROMBOPLASTIN TIME 29.3 seconds 22.5-36.0 (BEAKER) (test code = 760) PROTHROMBIN TIME/[id number] 01:25:54 Test Item Value Reference Range Interpretation Comments PROTIME (BEAKER) 14.4 seconds 11.9-14.2 H (test code = 759) INR (BEAKER) (test 1.14 See_Comment [Automat ed message] code = 370) The system [employer] generated this result transmitted ref erence range: <=5.90. The reference range was not used to int erpret this result as normal/abnormal . RECOMMENDED COUMADIN/WARFARIN INR THERAPY RANGESSTANDARD DOSE: 2.0 - 3.0 Includes: PROPHYLAXIS forvenous thrombosis, systemic embolization; TREATMENT for venous thrombosis and/or pulmonary embolus.HIGH RISK: Target INR is 2.5-3.5 for patients with mechanical heart valves.[id number] 01:11:30 Test Item Value Reference Range Interpretation Comments AMMONIA (BEAKER) (test code = 348) 23 mol/L 18-72 [employer] Operator ID - DBBASIC METABOLIC [id number] 07:17:00 Test Item Value Reference Range Interpretation Comments SODIUM (BEAKER) 134 meq/L 136-145 L (test code = 381) POTASSIUM (BEAKER) 4.5 meq/L 3.5-5.1 Specimen slightly (test code = 379) hemolyzed CHLORIDE (BEAKER) 108 meq/L 98-107 H (test code = 382) CO2 (BEAKER) (test 18 meq/L 22-29 L code = 355) BLOOD UREA NITROGEN 15 mg/dL 7-21 (BEAKER) (test code = 354) CREATININE (BEAKER) 1.04 mg/dL 0.57-1.25 Specimen slightly (test code = 358) hemolyzed GLUCOSE RANDOM 117 mg/dL 70-105 H (BEAKER) (test code = 652) CALCIUM (BEAKER) 8.8 mg/dL 8.4-10.2 (test code = 697) EGFR (BEAKER) (test 51 mL/min/1.73 ESTIMA KLAUS GFR IS code = 1092) sq m NOT ACCURATE CREATININE CLEARANCE IN PREDICTING GLOMERULAR FILTRATION RATE . ESTIMATED GFR I S NOT APPLICABLE FOR DIALYSIS PATIEN TS. CBC W/PLT COUNT & AUTO [id number] 06:55:00 Test Item Value Reference Range Interpretation Comments WHITE BLOOD CELL COUNT (BEAKER) 10.1 K/ L 3.5-10.5 (test code = 775) RED BLOOD CELL COUNT (BEAKER) 3.36 M/ L 3.93-5.22 L (test code = 761) HEMOGLOBIN (BEAKER) (test code = 10.6 GM/DL 11.2-15.7 L 410) HEMATOCRIT (BEAKER) (test code = 33.4 % 34.1-44.9 L 411) MEAN CORPUSCULAR VOLUME (BEAKER) 99.4 fL 79.4-94.8 H (test code = 753) MEAN CORPUSCULAR HEMOGLOBIN 31.5 pg 25.6-32.2 (BEAKER) (test code = 751) MEAN CORPUSCULAR HEMOGLOBIN CONC 31.7 GM/DL 32.2-35.5 L (BEAKER) (test code = 752) RED CELL DISTRIBUTION WIDTH 13.2 % 11.7-14.4 (BEAKER) (test code = 412) PLATELET COUNT (BEAKER) (test 206 K/CU MM 150-450 code = 756) MEAN PLATELET VOLUME (BEAKER) 11.1 fL 9.4-12.3 (test code = 754) NUCLEATED RED BLOOD CELLS 0 /100 WBC 0-0 (BEAKER) (test code = 413) NEUTROPHILS RELATIVE PERCENT 78 % (BEAKER) (test code = 429) LYMPHOCYTES RELATIVE PERCENT 12 % (BEAKER) (test code = 430) MONOCYTES RELATIVE PERCENT 7 % (BEAKER) (test code = 431) EOSINOPHILS RELATIVE PERCENT 2 % (BEAKER) (test code = 432) BASOPHILS RELATIVE PERCENT 0 % (BEAKER) (test code = 437) NEUTROPHILS ABSOLUTE COUNT 7.86 K/ L 1.56-6.13 H (BEAKER) (test code = 670) LYMPHOCYTES ABSOLUTE COUNT 1.21 K/ L 1.18-3.74 (BEAKER) (test code = 414) MONOCYTES ABSOLUTE COUNT (BEAKER) 0.73 K/ L 0.24-0.36 H (test code = 415) EOSINOPHILS ABSOLUTE COUNT 0.19 K/ L 0.04-0.36 (BEAKER) (test code = 416) BASOPHILS ABSOLUTE COUNT (BEAKER) 0.04 K/ L 0.01-0.08 (test code = 417) IMMATURE GRANULOCYTES-RELATIVE 0 % 0-1 PERCENT (BEAKER) (test code = 2801) BASIC METABOLIC [id number] 05:32:00 Test Item Value Reference Range Interpretation Comments SODIUM (BEAKER) 135 meq/L 136-145 L (test code = 381) POTASSIUM (BEAKER) 3.9 meq/L 3.5-5.1 (test code = 379) CHLORIDE (BEAKER) 108 meq/L 98-107 H (test code = 382) CO2 (BEAKER) (test 20 meq/L 22-29 L code = 355) BLOOD UREA NITROGEN 16 mg/dL 7-21 (BEAKER) (test code = 354) CREATININE (BEAKER) 1.03 mg/dL 0.57-1.25 (test code = 358) GLUCOSE RANDOM 102 mg/dL 70-105 (BEAKER) (test code = 652) CALCIUM (BEAKER) 8.7 mg/dL 8.4-10.2 (test code = 697) EGFR (BEAKER) (test 52 mL/min/1.73 ESTIMA KLAUS GFR IS code = 1092) sq m NOT ACCURATE CREATININE CLEARANCE IN PREDICTING GLOMERULAR FILTRATION RATE . ESTIMATED GFR I S NOT APPLICABLE FOR DIALYSIS PATIEN TS. CBC W/PLT COUNT & AUTO [id number] 05:11:00 Test Item Value Reference Range Interpretation Comments WHITE BLOOD CELL COUNT (BEAKER) 6.0 K/ L 3.5-10.5 (test code = 775) RED BLOOD CELL COUNT (BEAKER) 3.26 M/ L 3.93-5.22 L (test code = 761) HEMOGLOBIN (BEAKER) (test code = 10.0 GM/DL 11.2-15.7 L 410) HEMATOCRIT (BEAKER) (test code = 31.7 % 34.1-44.9 L 411) MEAN CORPUSCULAR VOLUME (BEAKER) 97.2 fL 79.4-94.8 H (test code = 753) MEAN CORPUSCULAR HEMOGLOBIN 30.7 pg 25.6-32.2 (BEAKER) (test code = 751) MEAN CORPUSCULAR HEMOGLOBIN CONC 31.5 GM/DL 32.2-35.5 L (BEAKER) (test code = 752) RED CELL DISTRIBUTION WIDTH 13.2 % 11.7-14.4 (BEAKER) (test code = 412) PLATELET COUNT (BEAKER) (test 199 K/CU MM 150-450 code = 756) MEAN PLATELET VOLUME (BEAKER) 10.7 fL 9.4-12.3 (test code = 754) NUCLEATED RED BLOOD CELLS 0 /100 WBC 0-0 (BEAKER) (test code = 413) NEUTROPHILS RELATIVE PERCENT 60 % (BEAKER) (test code = 429) LYMPHOCYTES RELATIVE PERCENT 23 % (BEAKER) (test code = 430) MONOCYTES RELATIVE PERCENT 13 % (BEAKER) (test code = 431) EOSINOPHILS RELATIVE PERCENT 3 % (BEAKER) (test code = 432) BASOPHILS RELATIVE PERCENT 0 % (BEAKER) (test code = 437) NEUTROPHILS ABSOLUTE COUNT 3.59 K/ L 1.56-6.13 (BEAKER) (test code = 670) LYMPHOCYTES ABSOLUTE COUNT 1.36 K/ L 1.18-3.74 (BEAKER) (test code = 414) MONOCYTES ABSOLUTE COUNT (BEAKER) 0.77 K/ L 0.24-0.36 H (test code = 415) EOSINOPHILS ABSOLUTE COUNT 0.20 K/ L 0.04-0.36 (BEAKER) (test code = 416) BASOPHILS ABSOLUTE COUNT (BEAKER) 0.02 K/ L 0.01-0.08 (test code = 417) IMMATURE GRANULOCYTES-RELATIVE 0 % 0-1 PERCENT (BEAKER) (test code = 2801) [id number] 07:46:00 Test Item Value Reference Range Interpretation Comments MAGNESIUM (BEAKER) (test code = 2.2 mg/dL 1.6-2.6 627) BASIC METABOLIC [id number] 07:46:00 Test Item Value Reference Range Interpretation Comments SODIUM (BEAKER) 135 meq/L 136-145 L (test code = 381) POTASSIUM (BEAKER) 3.6 meq/L 3.5-5.1 (test code = 379) CHLORIDE (BEAKER) 106 meq/L 98-107 (test code = 382) CO2 (BEAKER) (test 21 meq/L 22-29 L code = 355) BLOOD UREA NITROGEN 21 mg/dL 7-21 (BEAKER) (test code = 354) CREATININE (BEAKER) 1.11 mg/dL 0.57-1.25 (test code = 358) GLUCOSE RANDOM 97 mg/dL 70-105 (BEAKER) (test code = 652) CALCIUM (BEAKER) 8.8 mg/dL 8.4-10.2 (test code = 697) EGFR (BEAKER) (test 47 mL/min/1.73 ESTIMA KLAUS GFR IS code = 1092) sq m NOT ACCURATE CREATININE CLEARANCE IN PREDICTING GLOMERULAR FILTRATION RATE . ESTIMATED GFR I S NOT APPLICABLE FOR DIALYSIS PATIEN TS. CBC W/PLT COUNT & AUTO [id number] 07:31:00 Test Item Value Reference Range Interpretation Comments WHITE BLOOD CELL COUNT (BEAKER) 7.1 K/ L 3.5-10.5 (test code = 775) RED BLOOD CELL COUNT (BEAKER) 3.41 M/ L 3.93-5.22 L (test code = 761) HEMOGLOBIN (BEAKER) (test code = 10.7 GM/DL 11.2-15.7 L 410) HEMATOCRIT (BEAKER) (test code = 32.7 % 34.1-44.9 L 411) MEAN CORPUSCULAR VOLUME (BEAKER) 95.9 fL 79.4-94.8 H (test code = 753) MEAN CORPUSCULAR HEMOGLOBIN 31.4 pg 25.6-32.2 (BEAKER) (test code = 751) MEAN CORPUSCULAR HEMOGLOBIN CONC 32.7 GM/DL 32.2-35.5 (BEAKER) (test code = 752) RED CELL DISTRIBUTION WIDTH 13.2 % 11.7-14.4 (BEAKER) (test code = 412) PLATELET COUNT (BEAKER) (test 216 K/CU MM 150-450 code = 756) MEAN PLATELET VOLUME (BEAKER) 10.5 fL 9.4-12.3 (test code = 754) NUCLEATED RED BLOOD CELLS 0 /100 WBC 0-0 (BEAKER) (test code = 413) NEUTROPHILS RELATIVE PERCENT 66 % (BEAKER) (test code = 429) LYMPHOCYTES RELATIVE PERCENT 20 % (BEAKER) (test code = 430) MONOCYTES RELATIVE PERCENT 11 % (BEAKER) (test code = 431) EOSINOPHILS RELATIVE PERCENT 3 % (BEAKER) (test code = 432) BASOPHILS RELATIVE PERCENT 0 % (BEAKER) (test code = 437) NEUTROPHILS ABSOLUTE COUNT 4.69 K/ L 1.56-6.13 (BEAKER) (test code = 670) LYMPHOCYTES ABSOLUTE COUNT 1.44 K/ L 1.18-3.74 (BEAKER) (test code = 414) MONOCYTES ABSOLUTE COUNT (BEAKER) 0.78 K/ L 0.24-0.36 H (test code = 415) EOSINOPHILS ABSOLUTE COUNT 0.18 K/ L 0.04-0.36 (BEAKER) (test code = 416) BASOPHILS ABSOLUTE COUNT (BEAKER) 0.02 K/ L 0.01-0.08 (test code = 417) IMMATURE GRANULOCYTES-RELATIVE 0 % 0-1 PERCENT (BEAKER) (test code = 2801) BASIC METABOLIC [id number] 14:48:00 Test Item Value Reference Range Interpretation Comments SODIUM (BEAKER) 133 meq/L 136-145 L (test code = 381) POTASSIUM (BEAKER) 4.3 meq/L 3.5-5.1 (test code = 379) CHLORIDE (BEAKER) 103 meq/L 98-107 (test code = 382) CO2 (BEAKER) (test 21 meq/L 22-29 L code = 355) BLOOD UREA NITROGEN 31 mg/dL 7-21 H (BEAKER) (test code = 354) CREATININE (BEAKER) 1.25 mg/dL 0.57-1.25 (test code = 358) GLUCOSE RANDOM 105 mg/dL 70-105 (BEAKER) (test code = 652) CALCIUM (BEAKER) 9.0 mg/dL 8.4-10.2 (test code = 697) EGFR (BEAKER) (test 41 mL/min/1.73 ESTIMA KLAUS GFR IS code = 1092) sq m NOT ACCURATE CREATININE CLEARANCE IN PREDICTING GLOMERULAR FILTRATION RATE . ESTIMATED GFR I S NOT APPLICABLE FOR DIALYSIS PATIEN TS. [id number] 06:03:00 Test Item Value Reference Range Interpretation Comments MAGNESIUM (BEAKER) (test code = 2.3 mg/dL 1.6-2.6 627) CBC (HEMOGRAM ONLY)2018-02-19 05:46:00 Test Item Value Reference Range Interpretation Comments WHITE BLOOD CELL COUNT (BEAKER) 8.9 K/ L 3.5-10.5 (test code = 775) RED BLOOD CELL COUNT (BEAKER) 3.46 M/ L 3.93-5.22 L (test code = 761) HEMOGLOBIN (BEAKER) (test code = 11.0 GM/DL 11.2-15.7 L 410) HEMATOCRIT (BEAKER) (test code = 33.3 % 34.1-44.9 L 411) MEAN CORPUSCULAR VOLUME (BEAKER) 96.2 fL 79.4-94.8 H (test code = 753) MEAN CORPUSCULAR HEMOGLOBIN 31.8 pg 25.6-32.2 (BEAKER) (test code = 751) MEAN CORPUSCULAR HEMOGLOBIN CONC 33.0 GM/DL 32.2-35.5 (BEAKER) (test code = 752) RED CELL DISTRIBUTION WIDTH 13.1 % 11.7-14.4 (BEAKER) (test code = 412) PLATELET COUNT (BEAKER) (test 218 K/CU MM 150-450 code = 756) MEAN PLATELET VOLUME (BEAKER) 10.9 fL 9.4-12.3 (test code = 754) NUCLEATED RED BLOOD CELLS 0 /100 WBC 0-0 (BEAKER) (test code = 413) POCT-GLUCOSE [id number] 14:00:00 Test Item Value Reference Range Interpretation Comments POC-GLUCOSE METER 283 mg/dL 70-110 H TESTED AT [facility] 67[address] (BEAKER) (test code = [place] 1538) [id number] 05:56:00 Test Item Value Reference Range Interpretation Comments MAGNESIUM (BEAKER) (test code = 2.8 mg/dL 1.6-2.6 H 627) BASIC METABOLIC [id number] 05:56:00 Test Item Value Reference Range Interpretation Comments SODIUM (BEAKER) 132 meq/L 136-145 L (test code = 381) POTASSIUM (BEAKER) 4.0 meq/L 3.5-5.1 (test code = 379) CHLORIDE (BEAKER) 104 meq/L 98-107 (test code = 382) CO2 (BEAKER) (test 19 meq/L 22-29 L code = 355) BLOOD UREA NITROGEN 31 mg/dL 7-21 H (BEAKER) (test code = 354) CREATININE (BEAKER) 1.28 mg/dL 0.57-1.25 H (test code = 358) GLUCOSE RANDOM 69 mg/dL 70-105 L (BEAKER) (test code = 652) CALCIUM (BEAKER) 8.8 mg/dL 8.4-10.2 (test code = 697) EGFR (BEAKER) (test 40 mL/min/1.73 ESTIMA KLAUS GFR IS code = 1092) sq m NOT ACCURATE CREATININE CLEARANCE IN PREDICTING GLOMERULAR FILTRATION RATE . ESTIMATED GFR I S NOT APPLICABLE FOR DIALYSIS PATIEN TS. CBC (HEMOGRAM ONLY)2018-02-18 05:30:00 Test Item Value Reference Range Interpretation Comments WHITE BLOOD CELL COUNT (BEAKER) 8.4 K/ L 3.5-10.5 (test code = 775) RED BLOOD CELL COUNT (BEAKER) 3.53 M/ L 3.93-5.22 L (test code = 761) HEMOGLOBIN (BEAKER) (test code = 11.1 GM/DL 11.2-15.7 L 410) HEMATOCRIT (BEAKER) (test code = 34.9 % 34.1-44.9 411) MEAN CORPUSCULAR VOLUME ([facility]) 98.9 fL 79.4-94.8 H (test code = 753) MEAN CORPUSCULAR HEMOGLOBIN 31.4 pg 25.6-32.2 ([facility]) (test code = 751) MEAN CORPUSCULAR HEMOGLOBIN CONC 31.8 GM/DL 32.2-35.5 L ([facility]) (test code = 752) RED CELL DISTRIBUTION WIDTH 13.2 % 11.7-14.4 ([facility]) (test code = 412) PLATELET COUNT ([facility]) (test 205 K/CU MM 150-450 code = 756) MEAN PLATELET VOLUME ([facility]) 10.7 fL 9.4-12.3 (test code = 754) NUCLEATED RED BLOOD CELLS 0 /100 WBC 0-0 ([facility]) (test code = 413) [id number] 23:41:00 Test Item Value Reference Range Interpretation Comments ACTIVATED CLOTTING TIME 92 sec TEST ED AT [place] [address] ([facility]) (test code = [facility]ARCELINOMA[facility] [place] [facility]) [id number] 21:56:00 Test Item Value Reference Range Interpretation Comments ACTIVATED CLOTTING TIME 153 sec TEST ED AT [place] [address] ([facility]) (test code = JAMIE Cabrales [place] [address]) [id number] 19:28:00 Test Item Value Reference Range Interpretation Comments ACTIVATED CLOTTING TIME 197 sec TEST ED AT [place] [address] ([facility]) (test code = MARCELINOMAINE Cabrales [place] [address]) [id number] 17:41:00 Test Item Value Reference Range Interpretation Comments ACTIVATED CLOTTING TIME 246 sec TEST ED AT [place] [address] ([facility]) (test code = MARCELINOMAINE Samra [place] [address]) [id number] 12:36:00 Test Item Value Reference Range Interpretation Comments POTASSIUM ([facility]) (test code = 4.0 meq/L 3.5-5.1 379) TROPONIN [id number] 12:03:00 Test Item Value Reference Range Interpretation Comments TROPONIN I ([facility]) (test code = 3.94 ng/mL 0.00-0.03 HH 397) Troponin I (TnI) levels must be interpreted [...] failure, acidosis, acute neurological disease, and persistent tachyarrhythmia.[id number] 11:44:00 Test Item Value Reference Range Interpretation Comments MAGNESIUM (BEAKER) (test code = 1.9 mg/dL 1.6-2.6 627) [id number] 11:37:00 Test Item Value Reference Range Interpretation Comments PARTIAL THROMBOPLASTIN TIME 98.3 seconds 22.5-36.0 H (BEAKER) (test code = 760) [id number] 04:04:00 Test Item Value Reference Range Interpretation Comments PARTIAL THROMBOPLASTIN TIME 92.5 seconds 22.5-36.0 H (BEAKER) (test code = 760) TROPONIN [id number] 02:06:00 Test Item Value Reference Range Interpretation Comments TROPONIN I (BEAKER) (test code = 7.11 ng/mL 0.00-0.03 HH 397) Troponin I (TnI) levels must be interpreted [...] acute neurological disease, and persistent tachyarrhythmia.BASIC METABOLIC [id number] 01:56:00 Test Item Value Reference Range Interpretation Comments SODIUM (BEAKER) 135 meq/L 136-145 L (test code = 381) POTASSIUM (BEAKER) 3.7 meq/L 3.5-5.1 (test code = 379) CHLORIDE (BEAKER) 102 meq/L 98-107 (test code = 382) CO2 (BEAKER) (test 22 meq/L 22-29 code = 355) BLOOD UREA NITROGEN 17 mg/dL 7-21 (BEAKER) (test code = 354) CREATININE (BEAKER) 1.49 mg/dL 0.57-1.25 H (test code = 358) GLUCOSE RANDOM 90 mg/dL 70-105 (BEAKER) (test code = 652) CALCIUM (BEAKER) 9.2 mg/dL 8.4-10.2 (test code = 697) EGFR (BEAKER) (test 34 mL/min/1.73 ESTIMA KLAUS GFR IS code = 1092) sq m NOT ACCURATE CREATININE CLEARANCE IN PREDICTING GLOMERULAR FILTRATION RATE . ESTIMATED GFR I S NOT APPLICABLE FOR DIALYSIS PATIEN TS. [id number] 01:53:00 Test Item Value Reference Range Interpretation Comments PROTIME (BEAKER) (test code = 15.2 seconds 11.7-14.7 H 759) INR (BEAKER) (test code = 370) 1.2 <=5.9 PARTIAL THROMBOPLASTIN TIME 146.1 seconds 22.5-36.0 H (BEAKER) (test code = 760) RECOMMENDED COUMADIN/WARFARIN INR THERAPY RANGESSTANDARD DOSE: 2.0 - 3.0 Includes: PROPHYLAXIS forvenous thrombosis, systemic embolization; TREATMENT for venous thrombosis and/or pulmonary embolus.HIGH RISK: Target INR is 2.5-3.5 for patients with mechanical heart valves.PROTHROMBIN [id number] 01:50:00 Test Item Value Reference Range Interpretation Comments PROTIME (BEAKER) (test code = 15.2 seconds 11.7-14.7 H 759) INR (BEAKER) (test code = 370) 1.2 <=5.9 RECOMMENDED COUMADIN/WARFARIN INR THERAPY RANGESSTANDARD DOSE: 2.0 - 3.0 Includes: PROPHYLAXIS forvenous thrombosis, systemic embolization; TREATMENT for venous thrombosis and/or pulmonary embolus.HIGH RISK: Target INR is 2.5-3.5 for patients with mechanical heart valves.CBC W/PLT COUNT & AUTO DIFFERENTIAL 2018-02-17 01:43:00 Test Item Value Reference Range Interpretation Comments WHITE BLOOD CELL COUNT (BEAKER) 7.1 K/ L 3.5-10.5 (test code = 775) RED BLOOD CELL COUNT (BEAKER) 3.45 M/ L 3.93-5.22 L (test code = 761) HEMOGLOBIN (BEAKER) (test code = 10.8 GM/DL 11.2-15.7 L 410) HEMATOCRIT (BEAKER) (test code = 33.2 % 34.1-44.9 L 411) MEAN CORPUSCULAR VOLUME (BEAKER) 96.2 fL 79.4-94.8 H (test code = 753) MEAN CORPUSCULAR HEMOGLOBIN 31.3 pg 25.6-32.2 (BEAKER) (test code = 751) MEAN CORPUSCULAR HEMOGLOBIN CONC 32.5 GM/DL 32.2-35.5 (BEAKER) (test code = 752) RED CELL DISTRIBUTION WIDTH 13.3 % 11.7-14.4 (BEAKER) (test code = 412) PLATELET COUNT (BEAKER) (test 190 K/CU MM 150-450 code = 756) MEAN PLATELET VOLUME (BEAKER) 10.5 fL 9.4-12.3 (test code = 754) NUCLEATED RED BLOOD CELLS 0 /100 WBC 0-0 (BEAKER) (test code = 413) NEUTROPHILS RELATIVE PERCENT 76 % (BEAKER) (test code = 429) LYMPHOCYTES RELATIVE PERCENT 12 % (BEAKER) (test code = 430) MONOCYTES RELATIVE PERCENT 10 % (BEAKER) (test code = 431) EOSINOPHILS RELATIVE PERCENT 1 % (BEAKER) (test code = 432) BASOPHILS RELATIVE PERCENT 0 % (BEAKER) (test code = 437) NEUTROPHILS ABSOLUTE COUNT 5.45 K/ L 1.56-6.13 (BEAKER) (test code = 670) LYMPHOCYTES ABSOLUTE COUNT 0.85 K/ L 1.18-3.74 L (BEAKER) (test code = 414) MONOCYTES ABSOLUTE COUNT (BEAKER) 0.70 K/ L 0.24-0.36 H (test code = 415) EOSINOPHILS ABSOLUTE COUNT 0.10 K/ L 0.04-0.36 (BEAKER) (test code = 416) BASOPHILS ABSOLUTE COUNT (BEAKER) 0.02 K/ L 0.01-0.08 (test code = 417) IMMATURE GRANULOCYTES-RELATIVE 0 % 0-1 PERCENT (BEAKER) (test code = 2801) [id number] 23:09:00 Test Item Value Reference Range Interpretation Comments RPR SCREEN (BEAKER) (test code = Nonreactive Nonreactive 420) TROPONIN [id number] 21:20:00 Test Item Value Reference Range Interpretation Comments TROPONIN I (BEAKER) (test code = 7.60 ng/mL 0.00-0.03 HH 397) Troponin I (TnI) levels must be interpreted [...] failure, acidosis, acute neurological disease, and persistent tachyarrhythmia.[id number] 18:57:00 Test Item Value Reference Range Interpretation Comments PARTIAL THROMBOPLASTIN TIME 58.1 seconds 22.5-36.0 H (FELISHA) (test code = 760) TROPONIN [id number] 15:25:00 Test Item Value Reference Range Interpretation Comments TROPONIN I (FELISHA) (test code = 6.89 ng/mL 0.00-0.03 397) Troponin I (TnI) levels must be interpreted [...] disease, and persistent tachyarrhythmia.B-TYPE NATRIURETIC FACTOR (BNP) 2018-02-16 15:20:00 Test Item Value Reference Range Interpretation Comments B-TYPE NATRIURETIC PEPTIDE 2849 pg/mL 0-100 H (FELISHA) (test code = 700) Please obtain with next scheduled blood draw- no Need for extra pokeRAD, CHEST, 1 VIEW, NON [id number] 11:13:00Reason for exam:->chest painFINAL REPORT HISTORY : chest pain. Comparison: Chest x-ray of 12/10 isunavailable at this time for comparison. However, a chest x-ray dated 12/10/2015 is available for comparison. Comment: Single portable view of the chest was obtained. The cardiac silhouette size is enlarged. There are findings of pulmonary venous congestion. Interstitial prominence may represent inters titial edema. No pneumothorax is seen. There is some nonspecific patchy left basilar airspace disease which may represent atelectasis. Pneumonitis or aspiration cannot be excluded. There is a tortuous/ectatic thoracic aorta with some atherosclerotic calcification. Signed: Britt Gamble MDReport Verified Date/Time: 02/16/2018 11:13:08 Reading Location: [facility] Radiology Reading Room TROPONIN [id number] 09:59:00 Test Item Value Reference Range Interpretation Comments TROPONIN I (BEAKER) (test code = 6.35 ng/mL 0.00-0.03 397) Troponin I (TnI) levels must be interpreted [...] failure, acidosis, acute neurological disease, and persistent tachyarrhythmia.[id number] 09:06:00 Test Item Value Reference Range Interpretation Comments PARTIAL THROMBOPLASTIN TIME 26.7 seconds 22.5-36.0 (BEAKER) (test code = 760) Prior to initiating heparinPLATELET [id number] 08:48:00 Test Item Value Reference Range Interpretation Comments PLATELET COUNT (LISANDROAKER) (test 230 K/CU MM 150-450 code = 756) CT BRAIN WITHOUT IV CONTRAST - [id number] 06:53:00Reason for exam:->post-tpaFINAL REPORT EXAM: CT head without contrast, portable. [...] acute intracranial hemorrhage or mass effect.No large d emarcated acute territorial infarct however evaluation is limited due to CT modality and motion artifact. Signed: Barney Han MDReport Verified Date/Time: 02/16/2018 06:53:18 Reading Location: [facility] C0[facility] Transitional Reading Room AELTROPONIWendi [id number] 03:14:00 Test Item Value Reference Range Interpretation Comments TROPONIN I (BEAKER) (test code = 3.40 ng/mL 0.00-0.03 HH 397) Troponin I (TnI) levels must be interpreted [...] acute neurological disease, and persistent tachyarrhythmia.BASIC METABOLIC [id number] 02:53:00 Test Item Value Reference Range Interpretation Comments SODIUM (BEAKER) 137 meq/L 136-145 (test code = 381) POTASSIUM (BEAKER) 4.4 meq/L 3.5-5.1 (test code = 379) CHLORIDE (BEAKER) 106 meq/L 98-107 (test code = 382) CO2 (BEAKER) (test 22 meq/L 22-29 code = 355) BLOOD UREA NITROGEN 12 mg/dL 7-21 (BEAKER) (test code = 354) CREATININE (BEAKER) 1.06 mg/dL 0.57-1.25 (test code = 358) GLUCOSE RANDOM 109 mg/dL 70-105 H (BEAKER) (test code = 652) CALCIUM (BEAKER) 9.8 mg/dL 8.4-10.2 (test code = 697) EGFR (BEAKER) (test 50 mL/min/1.73 ESTIMA KLAUS GFR IS code = 1092) sq m NOT ACCURATE CREATININE CLEARANCE IN PREDICTING GLOMERULAR FILTRATION RATE . ESTIMATED GFR I S NOT APPLICABLE FOR DIALYSIS PATIEN TS. PT/[id number] 02:48:00 Test Item Value Reference Range Interpretation Comments PROTIME (BEAKER) (test code = 14.5 seconds 11.7-14.7 759) INR (BEAKER) (test code = 370) 1.1 <=5.9 PARTIAL THROMBOPLASTIN TIME 25.7 seconds 22.5-36.0 (BEAKER) (test code = 760) RECOMMENDED COUMADIN/WARFARIN INR THERAPY RANGESSTANDARD DOSE: 2.0 - 3.0 Includes: PROPHYLAXIS forvenous thrombosis, systemic embolization; TREATMENT for venous thrombosis and/or pulmonary embolus.HIGH RISK: Target INR is 2.5-3.5 for patients with mechanical heart valves.PROTHROMBIN TIME/[id number] 02:47:00 Test Item Value Reference Range Interpretation Comments PROTIME (BEAKER) (test code = 14.5 seconds 11.7-14.7 759) INR (BEAKER) (test code = 370) 1.1 <=5.9 RECOMMENDED COUMADIN/WARFARIN INR THERAPY RANGESSTANDARD DOSE: 2.0 - 3.0 Includes: PROPHYLAXIS forvenous thrombosis, systemic embolization; TREATMENT for venous thrombosis and/or pulmonary embolus.HIGH RISK: Target INR is 2.5-3.5 for patients with mechanical heart valves.CBC W/PLT COUNT & AUTO DIFFERENTIAL 2018-02-16 02:29:00 Test Item Value Reference Range Interpretation Comments WHITE BLOOD CELL COUNT (BEAKER) 8.8 K/ L 3.5-10.5 (test code = 775) RED BLOOD CELL COUNT (BEAKER) 3.71 M/ L 3.93-5.22 L (test code = 761) HEMOGLOBIN (BEAKER) (test code = 11.9 GM/DL 11.2-15.7 410) HEMATOCRIT (BEAKER) (test code = 35.8 % 34.1-44.9 411) MEAN CORPUSCULAR VOLUME (BEAKER) 96.5 fL 79.4-94.8 H (test code = 753) MEAN CORPUSCULAR HEMOGLOBIN 32.1 pg 25.6-32.2 (BEAKER) (test code = 751) MEAN CORPUSCULAR HEMOGLOBIN CONC 33.2 GM/DL 32.2-35.5 (BEAKER) (test code = 752) RED CELL DISTRIBUTION WIDTH 13.2 % 11.7-14.4 (BEAKER) (test code = 412) PLATELET COUNT (BEAKER) (test 205 K/CU MM 150-450 code = 756) MEAN PLATELET VOLUME (BEAKER) 10.2 fL 9.4-12.3 (test code = 754) NUCLEATED RED BLOOD CELLS 0 /100 WBC 0-0 (BEAKER) (test code = 413) NEUTROPHILS RELATIVE PERCENT 83 % (BEAKER) (test code = 429) LYMPHOCYTES RELATIVE PERCENT 8 % (BEAKER) (test code = 430) MONOCYTES RELATIVE PERCENT 9 % (BEAKER) (test code = 431) EOSINOPHILS RELATIVE PERCENT 0 % (BEAKER) (test code = 432) BASOPHILS RELATIVE PERCENT 0 % (BEAKER) (test code = 437) NEUTROPHILS ABSOLUTE COUNT 7.27 K/ L 1.56-6.13 H (BEAKER) (test code = 670) LYMPHOCYTES ABSOLUTE COUNT 0.68 K/ L 1.18-3.74 L (BEAKER) (test code = 414) MONOCYTES ABSOLUTE COUNT (BEAKER) 0.77 K/ L 0.24-0.36 H (test code = 415) EOSINOPHILS ABSOLUTE COUNT 0.01 K/ L 0.04-0.36 L (BEAKER) (test code = 416) BASOPHILS ABSOLUTE COUNT (BEAKER) 0.02 K/ L 0.01-0.08 (test code = 417) IMMATURE GRANULOCYTES-RELATIVE 1 % 0-1 PERCENT (BEAKER) (test code = 2801) TROPONIN [id number] 17:32:00 Test Item Value Reference Range Interpretation Comments TROPONIN I (BEAKER) (test code = 0.13 ng/mL 0.00-0.03 H 397) Troponin I (TnI) levels must be interpreted [...] acidosis, acute neurological disease, and persistent tachyarrhythmia.HEMOGLOBIN [id number] 11:13:00 Test Item Value Reference Range Interpretation Comments HEMOGLOBIN A1C (BEAKER) (test code = 5.4 % 4.3-6.1 368) [id number] 05:41:00 Test Item Value Reference Range Interpretation Comments THYROID STIMULATING HORMONE 0.94 uIU/mL 0.35-4.94 (BEAKER) (test code = 772) VITAMIN B12 AND [id number] 05:41:00 Test Item Value Reference Range Interpretation Comments VITAMIN B12 (BEAKER) (test code = 1440 pg/mL 213-816 H 774) FOLATE (BEAKER) (test code = 362) 7.6 ng/mL >=7.0 [id number] 05:07:00 Test Item Value Reference Range Interpretation Comments MAGNESIUM (BEAKER) 1.7 mg/dL 1.6-2.6 Specimen slightly (test code = 627) hemolyzed BASIC METABOLIC [id number] 05:07:00 Test Item Value Reference Range Interpretation Comments SODIUM (BEAKER) 133 meq/L 136-145 L (test code = 381) POTASSIUM (BEAKER) 4.2 meq/L 3.5-5.1 Specimen slightly (test code = 379) hemolyzed CHLORIDE (BEAKER) 104 meq/L 98-107 (test code = 382) CO2 (BEAKER) (test 21 meq/L 22-29 L code = 355) BLOOD UREA NITROGEN 12 mg/dL 7-21 (BEAKER) (test code = 354) CREATININE (BEAKER) 0.95 mg/dL 0.57-1.25 Specimen slightly (test code = 358) hemolyzed GLUCOSE RANDOM 98 mg/dL 70-105 (BEAKER) (test code = 652) CALCIUM (BEAKER) 9.3 mg/dL 8.4-10.2 (test code = 697) EGFR (BEAKER) (test 57 mL/min/1.73 ESTIMA KLAUS GFR IS code = 1092) sq m NOT ACCURATE CREATININE CLEARANCE IN PREDICTING GLOMERULAR FILTRATION RATE . ESTIMATED GFR I S NOT APPLICABLE FOR DIALYSIS PATIEN TS. LIPID [id number] 05:07:00 Test Item Value Reference Range Interpretation Comments TRIGLYCERIDES (BEAKER) 137 mg/dL Speci men slightly (test code = 540) hemolyzed CHOLESTEROL (BEAKER) 155 mg/dL Specime n slightly (test code = 631) hemolyzed HDL CHOLESTEROL (BEAKER) 59 mg/dL (test code = 976) LDL CHOLESTEROL 69 mg/dL CALCULATED (BEAKER) (test code = 633) Triglyceride Reference Range: Low Risk <150 Borderline 150-199 High Risk 200-499 Very High Risk >=500Cholesterol Reference Range: Low Risk <200 Borderline 200-239 High Risk >240HDL Cholesterol Reference Range: Low Risk >=60 High Risk <40LDL Cholesterol Reference Range: Optimal <100 Near Optimal 100-129 Borderline 130-159 High 160-189 Very High >=190PT/[id number] 04:54:00 Test Item Value Reference Range Interpretation Comments PROTIME (BEAKER) (test code = 14.0 seconds 11.7-14.7 759) INR (BEAKER) (test code = 370) 1.1 <=5.9 PARTIAL THROMBOPLASTIN TIME 27.3 seconds 22.5-36.0 (BEAKER) (test code = 760) RECOMMENDED COUMADIN/WARFARIN INR THERAPY RANGESSTANDARD DOSE: 2.0 - 3.0 Includes: PROPHYLAXIS forvenous thrombosis, systemic embolization; TREATMENT for venous thrombosis and/or pulmonary embolus.HIGH RISK: Target INR is 2.5-3.5 for patients with mechanical heart valves.PROTHROMBIN [id number] 04:53:00 Test Item Value Reference Range Interpretation Comments PROTIME (BEAKER) (test code = 14.0 seconds 11.7-14.7 759) INR (BEAKER) (test code = 370) 1.1 <=5.9 RECOMMENDED COUMADIN/WARFARIN INR THERAPY RANGESSTANDARD DOSE: 2.0 - 3.0 Includes: PROPHYLAXIS forvenous thrombosis, systemic embolization; TREATMENT for venous thrombosis and/or pulmonary embolus.HIGH RISK: Target INR is 2.5-3.5 for patients with mechanical heart valves.CBC W/PLT COUNT & AUTO DIFFERENTIAL 2018-02-15 04:44:00 Test Item Value Reference Range Interpretation Comments WHITE BLOOD CELL COUNT (BEAKER) 5.8 K/ L 3.5-10.5 (test code = 775) RED BLOOD CELL COUNT (BEAKER) 3.54 M/ L 3.93-5.22 L (test code = 761) HEMOGLOBIN (BEAKER) (test code = 11.0 GM/DL 11.2-15.7 L 410) HEMATOCRIT (BEAKER) (test code = 33.7 % 34.1-44.9 L 411) MEAN CORPUSCULAR VOLUME (BEAKER) 95.2 fL 79.4-94.8 H (test code = 753) MEAN CORPUSCULAR HEMOGLOBIN 31.1 pg 25.6-32.2 (BEAKER) (test code = 751) MEAN CORPUSCULAR HEMOGLOBIN CONC 32.6 GM/DL 32.2-35.5 (BEAKER) (test code = 752) RED CELL DISTRIBUTION WIDTH 13.0 % 11.7-14.4 (BEAKER) (test code = 412) PLATELET COUNT (BEAKER) (test 202 K/CU MM 150-450 code = 756) MEAN PLATELET VOLUME (BEAKER) 10.7 fL 9.4-12.3 (test code = 754) NUCLEATED RED BLOOD CELLS 0 /100 WBC 0-0 (BEAKER) (test code = 413) NEUTROPHILS RELATIVE PERCENT 71 % (BEAKER) (test code = 429) LYMPHOCYTES RELATIVE PERCENT 14 % (BEAKER) (test code = 430) MONOCYTES RELATIVE PERCENT 13 % (BEAKER) (test code = 431) EOSINOPHILS RELATIVE PERCENT 2 % (BEAKER) (test code = 432) BASOPHILS RELATIVE PERCENT 0 % (BEAKER) (test code = 437) NEUTROPHILS ABSOLUTE COUNT 4.08 K/ L 1.56-6.13 (BEAKER) (test code = 670) LYMPHOCYTES ABSOLUTE COUNT 0.80 K/ L 1.18-3.74 L (BEAKER) (test code = 414) MONOCYTES ABSOLUTE COUNT (BEAKER) 0.76 K/ L 0.24-0.36 H (test code = 415) EOSINOPHILS ABSOLUTE COUNT 0.10 K/ L 0.04-0.36 (BEAKER) (test code = 416) BASOPHILS ABSOLUTE COUNT (BEAKER) 0.02 K/ L 0.01-0.08 (test code = 417) IMMATURE GRANULOCYTES-RELATIVE 0 % 0-1 PERCENT (BEAKER) (test code = 2801) BASIC METABOLIC [id number] 16:02:00 Test Item Value Reference Range Interpretation Comments SODIUM (BEAKER) 129 meq/L 136-145 L (test code = 381) POTASSIUM (BEAKER) 3.7 meq/L 3.5-5.1 (test code = 379) CHLORIDE (BEAKER) 97 meq/L 98-107 L (test code = 382) CO2 (BEAKER) (test 22 meq/L 22-29 code = 355) BLOOD UREA NITROGEN 16 mg/dL 7-21 (BEAKER) (test code = 354) CREATININE (BEAKER) 1.12 mg/dL 0.57-1.25 (test code = 358) GLUCOSE RANDOM 116 mg/dL 70-105 H (BEAKER) (test code = 652) CALCIUM (BEAKER) 10.0 mg/dL 8.4-10.2 (test code = 697) EGFR (BEAKER) (test 47 mL/min/1.73 ESTIMA KLAUS GFR IS code = 1092) sq m NOT ACCURATE CREATININE CLEARANCE IN PREDICTING GLOMERULAR FILTRATION RATE . ESTIMATED GFR I S NOT APPLICABLE FOR DIALYSIS PATIEN TS. CBC W/PLT COUNT & AUTO [id number] 15:31:00 Test Item Value Reference Range Interpretation Comments WHITE BLOOD CELL COUNT (BEAKER) 8.2 K/ L 3.5-10.5 (test code = 775) RED BLOOD CELL COUNT (BEAKER) 4.14 M/ L 3.93-5.22 (test code = 761) HEMOGLOBIN (BEAKER) (test code = 13.0 GM/DL 11.2-15.7 410) HEMATOCRIT (BEAKER) (test code = 39.1 % 34.1-44.9 411) MEAN CORPUSCULAR VOLUME (BEAKER) 94.4 fL 79.4-94.8 (test code = 753) MEAN CORPUSCULAR HEMOGLOBIN 31.4 pg 25.6-32.2 (BEAKER) (test code = 751) MEAN CORPUSCULAR HEMOGLOBIN CONC 33.2 GM/DL 32.2-35.5 (BEAKER) (test code = 752) RED CELL DISTRIBUTION WIDTH 12.8 % 11.7-14.4 (BEAKER) (test code = 412) PLATELET COUNT (BEAKER) (test 228 K/CU MM 150-450 code = 756) MEAN PLATELET VOLUME (BEAKER) 10.3 fL 9.4-12.3 (test code = 754) NUCLEATED RED BLOOD CELLS 0 /100 WBC 0-0 (BEAKER) (test code = 413) NEUTROPHILS RELATIVE PERCENT 80 % (BEAKER) (test code = 429) LYMPHOCYTES RELATIVE PERCENT 10 % (BEAKER) (test code = 430) MONOCYTES RELATIVE PERCENT 9 % (BEAKER) (test code = 431) EOSINOPHILS RELATIVE PERCENT 0 % (BEAKER) (test code = 432) BASOPHILS RELATIVE PERCENT 0 % (BEAKER) (test code = 437) NEUTROPHILS ABSOLUTE COUNT 6.59 K/ L 1.56-6.13 H (BEAKER) (test code = 670) LYMPHOCYTES ABSOLUTE COUNT 0.86 K/ L 1.18-3.74 L (BEAKER) (test code = 414) MONOCYTES ABSOLUTE COUNT (BEAKER) 0.70 K/ L 0.24-0.36 H (test code = 415) EOSINOPHILS ABSOLUTE COUNT 0.03 K/ L 0.04-0.36 L (BEAKER) (test code = 416) BASOPHILS ABSOLUTE COUNT (BEAKER) 0.02 K/ L 0.01-0.08 (test code = 417) IMMATURE GRANULOCYTES-RELATIVE 0 % 0-1 PERCENT (BEAKER) (test code = 4375)
--- NOTE | 2021-07-14 20:03 | RAD REPORT ---
EXAM DESCRIPTION: CT - Ct Stroke Brain Wo Cont - 07/14/2021 7:51 pm CLINICAL HISTORY: Confusion/alteration of awareness COMPARISON: 2018 TECHNIQUE: Computed axial tomography of the head was obtained. All CT scans are performed using dose optimization technique as appropriate and may include automated exposure control or mA/KV adjustment according to patient size. FINDINGS: An intracranial bleed is not seen . The ventricles are normal in caliber. No extra-axial fluid collection is noted. Mild to moderate low-density within periventricular, deep and subcortical white matter likely ischemi c changes secondary to small vessel disease. 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 Prominent c alcifications vertebral arteries Fluid within the sinuses/ mastoids is not seen. IMPRESSION: No acute intracranial abnormality is seen. If patient's symptoms persist MRI of the bra in would be recommended. Dr Ponce of the emergency room was notified at 7:58 p.m. July 14, 2021
[2021-07-14] MEDS ORDERED: CEFTRIAXONE 1000 MG/VIAL ONE (20:16)
[2021-07-14] MEDS ORDERED: FOLIC ACID 5 MG/ML VIAL ONE (20:17)
[2021-07-14] MEDS ORDERED: NA CHLORIDE 0.9% 1,000 ML ONE ×2 (20:17→20:35)
--- NOTE | 2021-07-14 20:29 | EDPHYS ---
Physician Documentation [facility] Name: Casey Lyons Age: 85 yrs Sex: Female : 1935 Arrival Date: 07/14/2021 Time: 19:31 Bed 28 Private MD: ED Physician Ben Pocne HPI: 07/14 20:21 This 85 yrs old Female presents to ER via EMS with complaints of slurred magy speech, left side vweakness at 545pm. 20:21 The patient's problem is reported as dysphasia, slurred speech, expressive aphasia. magy Onset: The symptoms/episode began/occurred at 17:45. Duration: The episode is continuous. Context: the episode(s) was witnessed, by family, by a friend. The symptoms are alleviated by nothing. The symptoms are aggravated by nothing. Associated signs and symptoms: The patient has no apparent associated signs or symptoms. Patient's baseline: Neuro: alert and fully oriented. The patient has not experienced similar symptoms in the past. Historical: - PMHx: 19:59 Cellulitis of Leg; Cerebrovascular accident; Crohn's; High Cholesterol; Hypertension; sf1 - Immunization history:: Adult Immunizations up to date, Client reports having NOT received the Covid vaccine. Flu vaccine is up to date. - Social history:: Smoking status: Patient denies any tobacco usage or history of. Patient/guardian denies using alcohol, street drugs. - Family history:: not pertinent. ROS: 20:21 Constitutional: Negative for fever, chills, and weight loss, Eyes: Negative for injury, magy pain, redness, and discharge, ENT: Negative for injury, pain, and discharge, Neck: Negative for injury, pain, and swelling, Cardiovascular: Negative for chest pain, palpitations, and edema, Respiratory: Negative for shortness of breath, cough, wheezing, and pleuritic chest pain, Abdomen/GI: Negative for abdominal pain, nausea, vomiting, diarrhea, and constipation, Back: Negative for injury and pain, : Negative for injury, bleeding, discharge, and swelling, MS/Extremity: Negative for injury and deformity, Skin: Negative for injury, rash, and discoloration, Psych: Negative for depression, anxiety, suicide ideation, homicidal ideation, and hallucinations, Allergy/Immunology: Negative for hives, rash, and allergies, Endocrine: Negative for neck swelling, polydipsia, polyuria, polyphagia, and marked weight changes, Hematologic/Lymphatic: Negative for swollen nodes, abnormal bleeding, and unusual bruising. 20:21 Neuro: Positive for gait disturbance, speech changes, weakness. Exam: 20:21 Radiologist reports: negative magy 20:21 Constitutional: This is a well developed, well nourished patient who is awake, alert, and in no acute distress. Head/Face: Normocephalic, atraumatic. Eyes: Pupils equal round and reactive to light, extra-ocular motions intact. Lids and lashes normal. Conjunctiva and sclera are non-icteric and not injected. Cornea within normal limits. Periorbital areas with no swelling, redness, or edema. ENT: Nares patent. No nasal discharge, no septal abnormalities noted. Tympanic membranes are normal and external auditory canals are clear. Oropharynx with no redness, swelling, or masses, exudates, or evidence of obstruction, uvula midline. Mucous membranes moist. Neck: Trachea midline, no thyromegaly or masses palpated, and no cervical lymphadenopathy. Supple, full range of motion without nuchal rigidity, or vertebral point tenderness. No Meningismus. Chest/axilla: Normal chest wall appearance and motion. Nontender with no deformity. No lesions are appreciated. Cardiovascular: Regular rate and rhythm with a normal S1 and S2. No gallops, murmurs, or rubs. Normal PMI, no JVD. No pulse deficits. Respiratory: Lungs have equal breath sounds bilaterally, clear to auscultation and percussion. No rales, rhonchi or wheezes noted. No increased work of breathing, no retractions or nasal flaring. Abdomen/GI: Soft, non-tender, with normal bowel sounds. No distension or tympany. No guarding or rebound. No evidence of tenderness throughout. Back: No spinal tenderness. No costovertebral tenderness. Full range of motion. Female : Normal external genitalia. Skin: Warm, dry with normal turgor. Normal color with no rashes, no lesions, and no evidence of cellulitis. MS/ Extremity: Pulses equal, no cyanosis. Neurovascular intact. Full, normal range of motion. Psych: Awake, alert, with orientation to person, place and time. Behavior, mood, and affect are within normal limits. 20:21 Neuro: Orientation: appropriate for stated age, Mentation: is normal, appropriate for stated age, Memory: immediate memory is intact, remote memory is intact. recent memory is intact, Cranial nerves: grossly normal, is grossly normal based on the patient's age, no acute changes, Cerebellar function: is grossly normal, is grossly normal based on the patient's age, Motor: moves all fours, strength is 4/5 in the left arm, Sensation: is normal, no obvious gross deficits, appropriate Gait: not tested. Deep tendon reflexes are 2+ (normal) in the , Babinski testing is normal, seizure activity, is not displayed by the patient. 22:28 ECG was reviewed by the Attending Physician. [facility] Vital Signs: 19:56 BP 153 / 54; Pulse 78; Resp 18; Temp 98.4; Pulse Ox 96% ; Weight 63.5 kg; Height 5 ft. sf1 3 in. (160.02 cm); Pain 0/10; 20:30 Weight 61.6 kg (M); lp1 20:30 Body Mass Index 24.06 (61.60 kg, 160.02 cm) lp1 NIH Stroke Scale Scores: 20:21 NIHSS Score: 2 magy MDM: 19:41 Patient medically screened. magy 22:27 Differential diagnosis: CVA, TIA, Dementia, metabolic disorder. Data reviewed: vital magy signs, nurses notes, lab test result(s), EKG, radiologic studies, CT scan, plain films. Data interpreted: nuclear monitoring technician: rate is 78 beats/min, rhythm is regular. Test interpretation: by ED physician or midlevel provider: ECG, plain radiologic studies. Counseling: I had a detailed discussion with the patient and/or guardian regarding: the historical points, exam findings, and any diagnostic results supporting the discharge/admit diagnosis, lab results, radiology results, the need to transfer to another facility, for higher level of care, [facility] does not immediately have the required specialist. 07/14 19:42 Order name: Basic Metabolic Panel [facility] 07/14 18:42 Order name: CBC with Diff; Complete Time: 22:27 [facility] 07/14 19:42 Order name: LFT's; Complete Time: 22: [facility] 07/14 19:42 Order name: Magnesium; Complete Time: : [facility] 07/14 19:42 Order name: NT PRO-BNP; Complete Time: 22:27 [facility] 07/14 19:42 Order name: PT-INR; Complete Time: 22:27 [facility] 07/14 19:42 Order name: Troponin HS; Complete Time: 22:27 [facility] 07/14 19:42 Order name: XRAY Chest (1 view); Complete Time: 22:27 [facility] 07/14 19:42 Order name: CT Stroke Brain w/o Contrast; Complete Time: 20:39 [facility] 07/14 19:42 Order name: Urine Culture [facility] 07/14 19:42 Order name: Basic Metabolic Panel; Complete Time: 22:27 [facility] 07/14 20:19 Order name: SARS-COV-2 RT PCR (Document "Date of Onset" if Symptomatic); Complete Time: [facility] :07/14 23:21 Order name: Urine Dipstick-Ancillary [facility] 07/14 19:42 Order name: EKG; Complete Time: 19:43 [facility] 07/14 19:42 Order name: Cardiac monitoring; Complete Time: 22:54 [facility] 07/14 19:42 Order name: EKG - Nurse/Tech; Complete Time: 22:54 [facility] 07/14 19:42 Order name: IV Saline Lock; Complete Time: 22:54 [facility] 07/14 19:42 Order name: Labs collected and sent; Complete Time: 22:54 [facility] 07/14 19:42 Order name: O2 Per Protocol; Complete Time: 22:54 [facility] 07/14 19:42 Order name: O2 Sat Monitoring; Complete Time: 22:54 [facility] 07/14 19:42 Order name: Urine Dipstick-Ancillary (obtain specimen) [facility] EC:28 Rate is 93 beats/min. Rhythm is regular. QRS [place] is Normal. NH interval is normal. QRS magy interval is normal. QT interval is normal. No Q waves. T waves are Normal. T waves are Inverted in leads I, II, aVL, V4, V5, V6. No ST changes noted. Clinical impression: NSR w/ Non-specific ST/T Changes and No evidence of ischemia. Interpreted by me. Reviewed by me. Administered Medications: 20:18 CANCELLED (Duplicate Order): Aspirin Chewable Tablet 324 mg PO once; 81 mg tablets x 4 magy 20:35 Drug: Ativan (LORazepam) 0.5 mg Route: IVP; Site: right antecubital; sf1 20:55 Drug: Ativan (LORazepam) 0.5 mg Route: IVP; Site: right antecubital; sf1 22:52 Drug: Rocephin (cefTRIAXone) 1 grams Route: IV; Rate: per protocol; Site: right sf1 antecubital; 22:52 Not Given (Patient Refused): Aspirin Chewable Tablet 81 mg PO once sf1 22:53 Drug: NS 0.9% 1000 ml Route: IV; Rate: 1 bolus; Site: right antecubital; sf1 22:54 Drug: Thiamine 100 mg Route: IV; Rate: per protocol; Site: right antecubital; sf1 Disposition Summary: 07/14/21 20:28 Transfer Ordered Transfer Location: [facility] magy Reason: Higher level of care magy Condition: Fair magy Problem: new magy Symptoms: have improved magy Accepting Physician: to stroke team, [facility](07/14/21 23:27) sf1 Diagnosis - Cerebral infarction, unspecified magy - Aphasia magy - Acute kidney failure, unspecified - on chronic magy - Anemia, unspecified magy - Hyperkalemia magy Forms: - Medication Reconciliation Form magy - SBAR form magy NIH Stroke Scale - NIH Stroke Score Date: 07/14/2021 Time: 20:21 Total Score = 2 1a. Level of Consciousness (LOC) - 0(Alert) 1b. Level of Consciousness (LOC) (Month \\T\\ Age) - 0(Both) 1c. LOC Commands (Open \\T\\ Closes Eyes/Word Processor) - 0(Both) 2. Best Gaze (Lateral Gaze Paresis) - 0(Normal) 3. Visual Field Loss - 0(No visual loss) 4. Facial Palsy - 0(Normal) 5a. Left Arm: Motor (10-second hold) - 0(No drift) 5b. Right Arm: Motor (10-second hold) - 0(No drift) 6a. Left Leg: Motor (5-second hold - always test supine) - 0(No drift) 6b. Right Leg: Motor (5-second hold - always test supine) - 0(No drift) 7. Limb Ataxia (finger/nose \\T\\ heel/sesay - test with eyes open) - 0(Absent) 8. Sensory Loss (pinprick arms/legs/face) - 0(Normal) 9. Best Language: Aphasia (description/naming/reading) - 1(Mild to moderate aphasia) 10. Dysarthria (speech clarity - read or repeat words) - 1(Mild to Moderate) 11. Extinction and Inattention (visual/tactile/auditory/spatial/personal) - 0(No abnormality) Initials: magy Signatures: Dispatcher [employer] Ben Abarca MD MD cha Attema, Lee, DEBONE SUPERVISOR-C DEBONE SUPERVISOR-Cla1 Amalia Enciso RN RN sf1 Corrections: (The following items were deleted from the chart) 20:18 20:02 Aspirin Chewable Tablet 324 mg PO once; 81 mg tablets x 4 ordered. [facility] magy 22:30 20:28 to stroke team, [facility] magy 22:32 22:30 to stroke team, [facility] magy 23:27 22:32 to stroke team, [facility] sf1
--- NOTE | 2021-07-14 20:29 | ER ---
Nurse's Notes [facility] Janie Name: Casey Lyons Age: 85 yrs Sex: Female : 1935 Arrival Date: 07/14/2021 Time: 19:31 Bed 28 Private MD: Diagnosis: Cerebral infarction, unspecified;Aphasia;Acute kidney failure, unspecified-on chronic;Anemia, unspecified;Hyperkalemia Presentation: 07/14 19:56 Chief complaint: EMS states: patient was [place] when patient reported left sided sf1 weakness and friends noticed intermittent confusion. ems reports 0 on cinncinati stroke scale and no abnormal rythms on ekg. bgl of 118 and v/s wnl. Coronavirus screen: Vaccine status: Patient reports being unvaccinated. Client denies travel out of the [place] in the last 14 days. Ebola Screen: Patient negative for fever greater than or equal to 101.5 degrees Fahrenheit, and additional compatible Ebola Virus Disease symptoms Patient denies exposure to infectious person. Patient denies travel to an Ebola-affected area in the 21 days before illness onset. Initial Sepsis Screen: Does the patient meet any 2 criteria? No. Patient's initial sepsis screen is negative. Does the patient have a suspected source of infection? No. Patient's initial sepsis screen is negative. Risk Assessment: Do you want to hurt yourself or someone else? Patient reports no desire to harm self or others. Onset of symptoms was July 14, 2021 at 19:00. 19:56 Method Of Arrival: EMS sf1 19:56 Acuity: CLINT 2 sf1 Triage Assessment: 19:59 General: Appears in no apparent distress. comfortable, Behavior is confused difficulty sf1 with comprehension. Pain: Denies pain. Historical: - PMHx: 19:59 Cellulitis of Leg; Cerebrovascular accident; Crohn's; High Cholesterol; Hypertension; sf1 - Immunization history:: Adult Immunizations up to date, Client reports having NOT received the Covid vaccine. Flu vaccine is up to date. - Social history:: Smoking status: Patient denies any tobacco usage or history of. Patient/guardian denies using alcohol, street drugs. - Family history:: not pertinent. Screenin:00 Abuse screen: Denies threats or abuse. Nutritional screening: No deficits noted. sf1 Tuberculosis screening: No symptoms or risk factors identified. Fall Risk Secondary diagnosis (15 points) TIA, IV access (20 points). Mental Status- Overestimates/Forgets Limitations (15 pts.). Assessment: 20:00 Neuro: Level of Consciousness is awake, alert, obeys commands, confused, Oriented to sf1 person, place, time, situation, Registered Associate are equal bilaterally Moves all extremities. Speech is normal, Facial symmetry appears normal, Pupils are PERRLA, Intact Reports left sided numbness prior to arrival. Vital Signs: 19:56 BP 153 / 54; Pulse 78; Resp 18; Temp 98.4; Pulse Ox 96% ; Weight 63.5 kg; Height 5 ft. sf1 3 in. (160.02 cm); Pain 0/10; 20:30 Weight 61.6 kg (M); lp1 20:30 Body Mass Index 24.06 (61.60 kg, 160.02 cm) lp1 NIH Stroke Scale Scores: 20:21 NIHSS Score: 2 magy ED Course: 19:31 Patient arrived in ED. mw2 19:40 Ben Ponce MD is Attending Physician. magy 19:51 CT Stroke Brain w/o Contrast In Process Unspecified. EDMS 19:56 Amalia Enciso RN is Primary Nurse. sf1 19:59 Triage completed. sf1 19:59 Arm band placed on right wrist. sf1 20:00 Patient has correct armband on for positive identification. family at bedside. sf1 20:00 Inserted saline lock: 20 gauge in right antecubital area, using aseptic technique. sf1 20:25 initiated a transfer with Evelia from [facility] [place]. 2 20:[address] Ponce with Dr. Barreto from [facility]. 2 20:48 XRAY Chest (1 view) In Process Unspecified. EDMS 21:15 Inserted saline lock: 22 gauge in left wrist, using aseptic technique. lp1 22:33 administrative approval given by Evelia Rodriguez/ patient has been accepted to [address] 5 bed 15/ Dr. Barreto accepted the patient in transfer/report to be called to [phone]. 22:54 Basic Metabolic Panel Sent. sf1 Administered Medications: 20:18 CANCELLED (Duplicate Order): Aspirin Chewable Tablet 324 mg PO once; 81 mg tablets x 4 magy 20:35 Drug: Ativan (LORazepam) 0.5 mg Route: IVP; Site: right antecubital; sf1 20:55 Drug: Ativan (LORazepam) 0.5 mg Route: IVP; Site: right antecubital; sf1 22:52 Drug: Rocephin (cefTRIAXone) 1 grams Route: IV; Rate: per protocol; Site: right sf1 antecubital; 22:52 Not Given (Patient Refused): Aspirin Chewable Tablet 81 mg PO once sf1 22:53 Drug: NS 0.9% 1000 ml Route: IV; Rate: 1 bolus; Site: right antecubital; sf1 22:54 Drug: Thiamine 100 mg Route: IV; Rate: per protocol; Site: right antecubital; sf1 Outcome: 20:28 ER care complete, transfer ordered by MD. [facility] 23:26 Transferred by [facility] to [facility], Transfer form completed. sf1 23:26 Condition: stable 23:27 Patient left the ED. sf1 NIH Stroke Scale - NIH Stroke Score Date: 07/14/2021 Time: 20: Total Score = 2 1a. Level of Consciousness (LOC) - 0(Alert) 1b. Level of Consciousness (LOC) (Month \T\ Age) - 0(Both) 1c. LOC Commands (Open \T\ Closes Eyes/Medical Technologist Chief) - 0(Both) 2. Best Gaze (Lateral Gaze Paresis) - 0(Normal) 3. Visual Field Loss - 0(No visual loss) 4. Facial Palsy - 0(Normal) 5a. Left Arm: Motor (10-second hold) - 0(No drift) 5b. Right Arm: Motor (10-second hold) - 0(No drift) 6a. Left Leg: Motor (5-second hold - always test supine) - 0(No drift) 6b. Right Leg: Motor (5-second hold - always test supine) - 0(No drift) 7. Limb Ataxia (finger/nose \T\ heel/sesay - test with eyes open) - 0(Absent) 8. Sensory Loss (pinprick arms/legs/face) - 0(Normal) 9. Best Language: Aphasia (description/naming/reading) - 1(Mild to moderate aphasia) 10. Dysarthria (speech clarity - read or repeat words) - 1(Mild to Moderate) 11. Extinction and Inattention (visual/tactile/auditory/spatial/personal) - 0(No abnormality) Initials: magy Signatures: Dispatcher [employer] Ben Abarca MD MD cha Pena, Laura RN RN lp1 Olya Oneil mw2 Amalia Enciso RN RN sf1
[2021-07-14] MEDS ORDERED: ASPIRIN 81 MG CHEWABLE TABLET ONE (20:35)
[2021-07-14] MEDS ORDERED: ALTEPLASE 100 ML IV ONE (20:35)
[2021-07-14] MEDS ORDERED: LORazepam 2 MG/ML VIAL ONE (20:35)
[2021-07-14] MEDS ORDERED: NA CHLORIDE 0.9% 50 ML ONE (20:54)
[2021-07-14 21:02] LABS: Absolute Lymphocytes (CBC) 0.9 K/uL (0.7-4.9); Hematocrit 32.5 % (36.0-45.0); Lymphocytes % 10.5 % (15.3-44.8); MPV 9.2 fL (7.6-11.3)
--- NOTE | 2021-07-14 21:13 | RAD REPORT ---
EXAM DESCRIPTION: Clement Single View07/14/2021 8:48 pm CLINICAL HISTORY: Confusion COMPARISON: 2001 FINDINGS: The lungs appear clear of acute infiltrate. The heart is mildly to moderately enlarged. A rielly is tortuous/ectatic IMPRESSION: No acute abnormalities displayed
[2021-07-14 21:21] LABS: ALT/SGPT 16 U/L (12-78); AST/SGOT 14 U/L (15-37); Albumin 3.2 g/dL (3.4-5.0); Alkaline Phosphatase 105 U/L (45-117); BUN Blood Urea Nitrogen 28 mg/dL (7-18); Bicarbonate 21 mmol/L (21-32); Bilirubin Direct < 0.1 mg/dL (0-0.2); Bilirubin Total 0.3 mg/dL (0.2-1.0); Glucose Level 109 mg/dL (74-106); Magnesium 2.1 mg/dL (1.8-2.4); NT PRO-BNP 7133 pg/mL (<450); Potassium 5.2 mmol/L (3.5-5.1); Protein, Total 6.6 g/dL (6.4-8.2); Sodium Level 138 mmol/L (136-145)
[2021-07-14 22:20] LABS: Protime INR 0.91
[2021-07-14 23:21] LABS: Urine Blood Negative (Negative); Urine Glucose Negative (Negative); Urine Protein 1+ (Negative); Urine Specific Gravity 1.015 (1.005-1.030)
[2021-07-14 23:44] VITALS: BP 153/54; TEMP 98.4; O2SAT 96
--- NOTE | 2021-07-16 08:06 | EKG ---
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
== END 2021-07-14 23:27 | disposition short-term general hospital (02) ==
LOC: ER 19:10
DX: I63.9 Cerebral infarction, unspecified (principal); R29.702 NIHSS score 2; E87.5 Hyperkalemia; D64.9 Anemia, unspecified; N17.9 Acute kidney failure, unspecified; Z20.822 Contact with and (suspected) exposure to COVID-19; Z86.73 Personal history of transient ischemic attack (TIA), and cerebral infarction without residual deficits
CPT/HCPCS: 93005; 87088; 85025; 87086; 80048; 36415; 83735; 85610; 80076; 81003; 84484; 83880; 70450; 71045; 96375; 96374; 99285; U0003; J2997; J7030 ×2

== ENCOUNTER 2021-07-19 23:33 | Emergency (ER) | payer OTHER, MEDICARE ==
--- OUTSIDE RECORDS SUMMARY | 2021-07-19 23:38 | XMS REPORT | Continuity of Care Document ---
:1935 Author Organization [facility] t Address [facility] [address] [place] [address] Care Team Providers Name Role Phone CONRADO SANTIAGO Primary Care Physician Unavailable CALLY Attending Clinician Unavailable BRIONNA EPPS Attending Clinician Unavailable Bo GERARD Attending Clinician Unavailable ELIZABETH HAYES Attending Clinician Unavail able BRIONNA EPPS Admitting Clinician Unavailable AVE LARSON Admitting Clinician Unavailable Payers Payer Name Policy Type Policy Number Effective Date Expiration Date S ource MEDICARE A B [id number] 2002 00:00:00 [facility] [id number] 2021 HEALTHCARE 00:00:00 Problems This patient has no known problems. Allergies, Adverse Reactions, Alerts Allergy Allergy Status Severity Reaction(s) Onset Inactive Treating Comm ents Source Name Type Date Date Clinician NO KNOWN Allergy Active [facility] Medications This patient has no known medications. Vital Signs Vital Name Observation Time Observation Value Comments Source WEIGHT 2021-07-18 08:13:00 58.3 kg HEIGHT 2021-07-15 00:57:00 160 cm WEIGHT 2021-07-15 00:57:00 62.7 kg WEIGHT 2021-07-18 08:13:00 58.3 kg HEIGHT 2021-07-15 00:57:00 160 cm WEIGHT 2021-07-15 00:57:00 62.7 kg HEIGHT 2021-03-16 23:49:00 162.6 cm WEIGHT 2021-03-16 23:49:00 65.8 kg HEIGHT 2021-03-16 23:49:00 162.6 cm WEIGHT 2021-03-16 23:49:00 65.8 kg Procedures This patient has no known procedures. Encounters Start End Encounter Admission Attending Care Care Encounter Source Date/Time Date/Time Type Type Clinicians Facility Department ID 2021-07-15 2021-07-18 Inpatient ER CELY [facility]O Neuro ICU [id number] [facility] 00:36:00 17:11:00 PATTI 2021-03-16 2021-03-27 [id number] [facility] 23:39:00 12:45:00 YASHASH Results Test Description Test Time Test Comments Results Result Comments Source MAGNESIUM 2021-07-17 05:27:38 Test Item Value Reference Range Interpretation Comme nts MAGNESIUM (BEAKER) (test code = 627) 1.7 mg/dL 1.6-2.6 Hoop Maker ID - CATRACHO [id number] 05:27:38 Test Item Value Reference Range Interpretation Comments PHOSPHORUS (BEAKER) (test code = 4.1 mg/dL 2.3-4.7 604) Hoop Maker ID - CATRACHO MCBC W/PLT COUNT & AUTO [id number] 04:46:17 Test Item Value Reference Range Interpretation Comments WHITE BLOOD CELL COUNT (BEAKER) 4.6 K/ L 3.5-10.5 (test code = 775) RED BLOOD CELL COUNT (BEAKER) 2.70 M/ L 3.93-5.22 L (test code = 761) HEMOGLOBIN (BEAKER) (test code = 8.2 GM/DL 11.2-15.7 L 410) HEMATOCRIT (BEAKER) (test code = 26.4 % 34.1-44.9 L 411) MEAN CORPUSCULAR VOLUME (BEAKER) 97.8 fL 79.4-94.8 H (test code = 753) MEAN CORPUSCULAR HEMOGLOBIN 30.4 pg 25.6-32.2 (BEAKER) (test code = 751) MEAN CORPUSCULAR HEMOGLOBIN CONC 31.1 GM/DL 32.2-35.5 L (BEAKER) (test code = 752) RED CELL DISTRIBUTION WIDTH 13.4 % 11.7-14.4 (BEAKER) (test code = 412) PLATELET COUNT (BEAKER) (test 163 K/CU MM 150-450 code = 756) MEAN PLATELET VOLUME (BEAKER) 11.3 fL 9.4-12.3 (test code = 754) NUCLEATED RED BLOOD CELLS 0 /100 WBC 0-0 (BEAKER) (test code = 413) NEUTROPHILS RELATIVE PERCENT 55 % (BEAKER) (test code = 429) LYMPHOCYTES RELATIVE PERCENT 26 % (BEAKER) (test code = 430) MONOCYTES RELATIVE PERCENT 12 % (BEAKER) (test code = 431) EOSINOPHILS RELATIVE PERCENT 6 % (BEAKER) (test code = 432) BASOPHILS RELATIVE PERCENT 0 % (BEAKER) (test code = 437) NEUTROPHILS ABSOLUTE COUNT 2.54 K/ L 1.56-6.13 (BEAKER) (test code = 670) LYMPHOCYTES ABSOLUTE COUNT 1.21 K/ L 1.18-3.74 (BEAKER) (test code = 414) MONOCYTES ABSOLUTE COUNT (BEAKER) 0.55 K/ L 0.24-0.36 H (test code = 415) EOSINOPHILS ABSOLUTE COUNT 0.28 K/ L 0.04-0.36 (BEAKER) (test code = 416) BASOPHILS ABSOLUTE COUNT (BEAKER) 0.01 K/ L 0.01-0.08 (test code = 417) IMMATURE GRANULOCYTES-RELATIVE 0 % 0-1 PERCENT (BEAKER) (test code = 2801) MR, BRAIN, WITHOUT [id number] 15:06:00Post tpa imagingUnlisted Reason for Exam - Click Yes and Enter Reason Below->No [facility] : 1935 Sex: FFINAL REPORT MR, BRAIN, WITHOUT CONTRAST INDICATION: Stroke, followup TECHNIQUE: Multiplanar, multisequence MR imaging of the brain was obtained. COMPARISON: None FINDINGS:Punctate acute infarct of the right occipital lobe. No hemorrhagic conversion or significant mass effect. No abnormal susceptibility. Scattered T2/FLAIR hyperintense foci within the periventricularand subcortical white matter are nonspecific, however, statistically represent chronic microvascularischemic changes. No hydrocephalus. Orbits are within normal limits. No obstructive paranasal sinus disease. IMPRESSION: Punctate acute infarct of the right occipital lobe. No hemorrhagic conversion or significant mass effect. Signed: Vani Denis Verified Date/Time: 07/16/2021 15:06:46 Reading Location: [facility] C013V Neuro Reading Room [id number] 05:34:46 Test Item Value Reference Range Interpretation Comments FERRITIN (BEAKER) (test code = 430.07 ng/mL 5.00-275.00 H 361) Hoop Maker ID - DEWAYNE [id number] 05:18:22 Test Item Value Reference Range Interpretation Comments PHOSPHORUS (BEAKER) (test code = 4.3 mg/dL 2.3-4.7 604) Hoop Maker ID - [id number] 05:18:21 Test Item Value Reference Range Interpretation Comments MAGNESIUM (BEAKER) (test code = 1.7 mg/dL 1.6-2.6 627) Hoop Maker ID - DBIRON, TIBC, % SAT. (WITHOUT FERRITIN)2021-07-16 05:14:16 Test Item Value Reference Range Interpretation Comments IRON (BEAKER) (test code = 547) 31.0 ug/dL 40.0-160.0 L TOTAL IRON BINDING CAPACITY 219 ug/dL 250-450 L (BEAKER) (test code = 769) IRON % SATURATION (2) (BEAKER) 14 % 20-55 L (test code = 2590) Hoop Maker ID - DEWAYNE WB-TYPE NATRIURETIC FACTOR (BNP)2021-07-16 05:06:56 Test Item Value Reference Range Interpretation Comments B-TYPE NATRIURETIC PEPTIDE (BEAKER) 399 pg/mL 0-100 H (test code = 700) Hoop Maker ID - DEWAYNE WCBC W/PLT COUNT & AUTO [id number] 04:43:46 Test Item Value Reference Range Interpretation Comments WHITE BLOOD CELL COUNT (BEAKER) 5.7 K/ L 3.5-10.5 (test code = 775) RED BLOOD CELL COUNT (BEAKER) 2.79 M/ L 3.93-5.22 L (test code = 761) HEMOGLOBIN (BEAKER) (test code = 8.4 GM/DL 11.2-15.7 L 410) HEMATOCRIT (BEAKER) (test code = 27.4 % 34.1-44.9 L 411) MEAN CORPUSCULAR VOLUME (BEAKER) 98.2 fL 79.4-94.8 H (test code = 753) MEAN CORPUSCULAR HEMOGLOBIN 30.1 pg 25.6-32.2 (BEAKER) (test code = 751) MEAN CORPUSCULAR HEMOGLOBIN CONC 30.7 GM/DL 32.2-35.5 L (BEAKER) (test code = 752) RED CELL DISTRIBUTION WIDTH 13.5 % 11.7-14.4 (BEAKER) (test code = 412) PLATELET COUNT (BEAKER) (test 166 K/CU MM 150-450 code = 756) MEAN PLATELET VOLUME (BEAKER) 11.2 fL 9.4-12.3 (test code = 754) NUCLEATED RED BLOOD CELLS 0 /100 WBC 0-0 (BEAKER) (test code = 413) NEUTROPHILS RELATIVE PERCENT 67 % (BEAKER) (test code = 429) LYMPHOCYTES RELATIVE PERCENT 17 % (BEAKER) (test code = 430) MONOCYTES RELATIVE PERCENT 12 % (BEAKER) (test code = 431) EOSINOPHILS RELATIVE PERCENT 4 % (BEAKER) (test code = 432) BASOPHILS RELATIVE PERCENT 0 % (BEAKER) (test code = 437) NEUTROPHILS ABSOLUTE COUNT 3.82 K/ L 1.56-6.13 (BEAKER) (test code = 670) LYMPHOCYTES ABSOLUTE COUNT 0.99 K/ L 1.18-3.74 L (BEAKER) (test code = 414) MONOCYTES ABSOLUTE COUNT (BEAKER) 0.68 K/ L 0.24-0.36 H (test code = 415) EOSINOPHILS ABSOLUTE COUNT 0.22 K/ L 0.04-0.36 (BEAKER) (test code = 416) BASOPHILS ABSOLUTE COUNT (BEAKER) 0.02 K/ L 0.01-0.08 (test code = 417) IMMATURE GRANULOCYTES-RELATIVE 0 % 0-1 PERCENT (BEAKER) (test code = 2801) CT, BRAIN, WITHOUT [id number] 03:11:00Unlisted Reason for Exam - Click Yes and Enter Reason Below->YesUnlisted Reason for Exam->s/p tpa [facility] : 1935 Sex: FFINAL REPORT EXAM: CT, BRAIN, WITHOUT CONTRAST INDICATION: Stroke, f ollow ups/p tpa TECHNIQUE: CT images from skull base to vertex without IV contrast. This exam was performed according to the departmental dose optimization program which includes automated exposure control, adjustment of the mA and/or kV according to the patient size, and/or use of an iterative reconstruction technique. COMPARISON: 03/19/2021 FINDINGS: Parenchyma: No evidence of acute infarction. Chronic small focal infarctions in the bilateral cerebellar hemispheres similar to prior. No hemorrhage.No mass or mass effect. Patchy and confluent areas of hypoattenuation are present in the cerebral white matter that are nonspecific but compatible with moderate chronic microvascular ischemic changes.Extra-axial Collection: None Ventricular System: Ex vacuo enlarged without hydrocephalus Osseous Structures: No acute osseous abnormality. Included Orbits: Prior bilateral lens surgery Paranasal Sinuses: Predominantly clear Tympanomastoid Cavities: Normal Other: Atherosclerotic intracranial calcifications are present. IMPRESSION: 1. No acute abnormality on CT head without contrast. 2. Small chronic cerebellar infarctions and moderate chronic microvascular ischemic changes similar to prior. Ifthere is persistent clinical concern for intracranial pathology, MR examination is recommended for further characterization. Signed: Kalyan Cai [facility] Verified Date/Time: 07/16/2021 03:11:31 HIGH SENSITIVITY TROPONIN [id number] 18:04:16 Test Item Value Reference Range Interpretation Comments HIGH SENSITIVITY 28 pg/ml See_Comment H [Automated message] TROPONIN I (test code = The system which [id number]) generated this result transmitted ref erence range: <=17. Th e reference range was not used to int erpret this result as normal/abnormal . Hoop Maker ID - DBThe LEATHER SCRAPER STAT High Sensitivity Troponin-I results should be used in conjunctionwith other diagnostic information such as ECG, clinical observations and information, and patient symptoms to aid in the diagnosis of IL.HEMOGLOBIN [id number] 09:45:23 Test Item Value Reference Range Interpretation Comments HEMOGLOBIN A1C 5.2 % See_Comment [Automated m essage] ELECTROPHORESIS (BEAKER) The system which (test code = 3811) generated this result transmitted ref erence range: <=5.6%. The reference range was not used to int erpret this result as normal/abnormal . "The A1c is measured using a NGSP-certified method. HbA1c value equal to or greater than 6.5% as thediagnosis cutoff for diabetes. An HbA1c value of 5.7- 6.4% indicates increased risk for diabetes (prediabetes)."Hoop Maker ID - ADM URINALYSIS W/ REFLEX URINE [id number] 09:16:27 Test Item Value Reference Range Interpretation Comments COLOR (BEAKER) (test code = 470) Light Yellow CLARITY (BEAKER) (test code = Hazy 469) SPECIFIC GRAVITY UA (BEAKER) 1.013 1.001-1.035 (test code = 468) PH UA (BEAKER) (test code = 467) 6.0 5.0-8.0 PROTEIN UA (BEAKER) (test code = 50 mg/dL Negative A 464) GLUCOSE UA (BEAKER) (test code = Negative Negative 365) KETONES UA (BEAKER) (test code = Negative Negative 371) BILIRUBIN UA (BEAKER) (test code Negative Negative = 462) BLOOD UA (BEAKER) (test code = Trace Negative A 461) NITRITE UA (BEAKER) (test code = Negative Negative 465) LEUKOCYTE ESTERASE UA (BEAKER) Small Negative A (test code = 466) UROBILINOGEN UA (BEAKER) (test 0.2 mg/dL 0.2-1.0 code = 463) RBC UA (BEAKER) (test code = 1 /HPF 519) WBC UA (BEAKER) (test code = 1 /HPF 520) BACTERIA (BEAKER) (test code = Occasional 517) SQUAMOUS EPITHELIAL (BEAKER) 2 /HPF (test code = 516) HYALINE CASTS (BEAKER) (test 3 /LPF code = 514) CRYSTALS, URINE (BEAKER) (test Occasional code = 1521) SOURCE(BEAKER) (test code = 2795) Hoop Maker ID - [auto]Hoop Maker ID - techT4, [id number] 08:03:16 Test Item Value Reference Range Interpretation Comments FREE T4 (BEAKER) (test code = 655) 1.08 ng/dL 0.70-1.48 Hoop Maker ID - MARLENDOUGLAS LLIPID [id number] 07:14:54 Test Item Value Reference Range Interpretation Comments TRIGLYCERIDES (BEAKER) 60 mg/dL Speci men slightly (test code = 540) hemolyzed CHOLESTEROL (BEAKER) 121 mg/dL Specime n slightly (test code = 631) hemolyzed HDL CHOLESTEROL (BEAKER) 48 mg/dL (test code = 976) LDL CHOLESTEROL 61 mg/dL CALCULATED (BEAKER) (test code = 633) Triglyceride Reference Range: Low Risk <150 Borderline 150-199 High Risk 200-499 Very High Risk >=500Cholesterol Reference Range: Low Risk <200 Borderline 200-239 High Risk >240HDL Cholesterol Reference Range: Low Risk >=60 High Risk <40LDL Cholesterol Reference Range: Optimal <100 Near Optimal 100-129 Borderline 130-159 High 160-189 Very High >=190 Hoop Maker ID - [id number] 07:14:53 Test Item Value Reference Range Interpretation Comments MAGNESIUM (BEAKER) 1.7 mg/dL 1.6-2.6 Specimen slightly (test code = 627) hemolyzed Hoop Maker ID - MARLENAYA [id number] 07:14:53 Test Item Value Reference Range Interpretation Comments PHOSPHORUS (BEAKER) 4.6 mg/dL 2.3-4.7 Specimen slightly (test code = 604) hemolyzed Hoop Maker ID - PIAYA LCOMPREHENSIVE METABOLIC [id number] 07:14:53 Test Item Value Reference Range Interpretation Comments TOTAL PROTEIN 5.1 gm/dL 6.0-8.3 L Specimen sligh tly (BEAKER) (test code = hemoly zed 770) ALBUMIN (BEAKER) 3.1 g/dL 3.5-5.0 L Specimen sl ightly (test code = 1145) hemolyzed ALKALINE PHOSPHATASE 69 U/L 40-150 (BEAKER) (test code = 346) BILIRUBIN TOTAL 0.3 mg/dL 0.2-1.2 Specimen sli ghtly (BEAKER) (test code = hemoly zed 377) SODIUM (BEAKER) (test 139 meq/L 136-145 code = 381) POTASSIUM (BEAKER) 5.0 meq/L 3.5-5.1 Specimen slightly (test code = 379) hemolyzed CHLORIDE (BEAKER) 113 meq/L 98-107 H (test code = 382) CO2 (BEAKER) (test 20 meq/L 22-29 L code = 355) BLOOD UREA NITROGEN 27 mg/dL 7-21 H (BEAKER) (test code = 354) CREATININE (BEAKER) 1.52 mg/dL 0.57-1.25 H Specimen slightly (test code = 358) hemolyzed GLUCOSE RANDOM 85 mg/dL 70-105 (BEAKER) (test code = 652) CALCIUM (BEAKER) 8.4 mg/dL 8.4-10.2 (test code = 697) AST (SGOT) (BEAKER) 16 U/L 5-34 Specimen slightly (test code = 353) hemolyzed ALT (SGPT) (BEAKER) 10 U/L 6-55 Specimen slightly (test code = 347) hemolyzed EGFR (BEAKER) (test 33 mL/min/1.73 ESTIMA KLAUS GFR IS code = 1092) sq m NOT ACCURATE CREATININE CLEARANCE IN PREDICTING GLOMERULAR FILTRATION RATE . ESTIMATED GFR I S NOT APPLICABLE FOR DIALYSIS PATIEN TS. Hoop Maker ID - PIAYA LTSH/FREE T4 IF [id number] 05:50:44 Test Item Value Reference Range Interpretation Comments THYROID STIMULATING HORMONE 0.192 uIU/mL 0.350-4.940 L (BEAKER) (test code = 772) Hoop Maker ID - PIAYA [id number] 05:00:52 Test Item Value Reference Range Interpretation Comments PARTIAL THROMBOPLASTIN TIME 28.4 seconds 22.5-36.0 (BEAKER) (test code = 760) PROTHROMBIN TIME/[id number] 05:00:11 Test Item Value Reference Range Interpretation Comments PROTIME (BEAKER) 13.2 seconds 11.9-14.2 (test code = 759) INR (BEAKER) (test 1.02 See_Comment [Automat ed message] code = 370) The system [employer] generated this result transmitted ref erence range: <=5.90. The reference range was not used to int erpret this result as normal/abnormal . RECOMMENDED COUMADIN/WARFARIN INR THERAPY RANGESSTANDARD DOSE: 2.0 - 3.0 Includes: PROPHYLAXIS forvenous thrombosis, systemic embolization; TREATMENT for venous thrombosis and/or pulmonary embolus.HIGH RISK: Target INR is 2.5-3.5 for patients with mechanical heart valves.CBC W/PLT COUNT & AUTO DIFFERENTIAL 2021-07-15 04:41:21 Test Item Value Reference Range Interpretation Comments WHITE BLOOD CELL COUNT (BEAKER) 6.5 K/ L 3.5-10.5 (test code = 775) RED BLOOD CELL COUNT (BEAKER) 2.91 M/ L 3.93-5.22 L (test code = 761) HEMOGLOBIN (BEAKER) (test code = 8.7 GM/DL 11.2-15.7 L 410) HEMATOCRIT (BEAKER) (test code = 28.8 % 34.1-44.9 L 411) MEAN CORPUSCULAR VOLUME (BEAKER) 99.0 fL 79.4-94.8 H (test code = 753) MEAN CORPUSCULAR HEMOGLOBIN 29.9 pg 25.6-32.2 (BEAKER) (test code = 751) MEAN CORPUSCULAR HEMOGLOBIN CONC 30.2 GM/DL 32.2-35.5 L (BEAKER) (test code = 752) RED CELL DISTRIBUTION WIDTH 13.4 % 11.7-14.4 (BEAKER) (test code = 412) PLATELET COUNT (BEAKER) (test 183 K/CU MM 150-450 code = 756) MEAN PLATELET VOLUME (BEAKER) 11.6 fL 9.4-12.3 (test code = 754) NUCLEATED RED BLOOD CELLS 0 /100 WBC 0-0 (BEAKER) (test code = 413) NEUTROPHILS RELATIVE PERCENT 71 % (BEAKER) (test code = 429) LYMPHOCYTES RELATIVE PERCENT 16 % (BEAKER) (test code = 430) MONOCYTES RELATIVE PERCENT 10 % (BEAKER) (test code = 431) EOSINOPHILS RELATIVE PERCENT 2 % (BEAKER) (test code = 432) BASOPHILS RELATIVE PERCENT 0 % (BEAKER) (test code = 437) NEUTROPHILS ABSOLUTE COUNT 4.62 K/ L 1.56-6.13 (BEAKER) (test code = 670) LYMPHOCYTES ABSOLUTE COUNT 1.06 K/ L 1.18-3.74 L (BEAKER) (test code = 414) MONOCYTES ABSOLUTE COUNT (BEAKER) 0.68 K/ L 0.24-0.36 H (test code = 415) EOSINOPHILS ABSOLUTE COUNT 0.14 K/ L 0.04-0.36 (BEAKER) (test code = 416) BASOPHILS ABSOLUTE COUNT (BEAKER) 0.01 K/ L 0.01-0.08 (test code = 417) IMMATURE GRANULOCYTES-RELATIVE 0 % 0-1 PERCENT (BEAKER) (test code = 2801) POCT-GLUCOSE [id number] 12:30:47 Test Item Value Reference Range Interpretation Comments POC-GLUCOSE METER 102 mg/dL 70-110 : TESTED A T [facility] 6720 (BEAKER) (test code = JAMIE Cabrales [facility], 1538) [id number]: Hoop Maker/Techni kaushik ID = [id number] for ABBY ANNABELLEBEAU MOISES SARS-COV2/RT-PCR ([facility])2021-03-27 11:03:20 Test Item Value Reference Range Interpretation Comments SARS-COV2/RT-PCR (test Negative Not Detected, Negative, code = 4418202) See external report for linked test SARS-COV-2 PERFORMING LAB [facility] BLANQUITA (test code = 4702976) Negative result for this test determines that [...] 564(g) of the Act.Fact Sheet for Healthcare Providers:https://www.In[employer] Context.CryoLife/sites/default/files/product/documents/Fact_Shee l_UP_Ozkhpxftd_Mymc_IPEA-QmK-0.pdfFact Sheet for Healthcare Patients:https://www.Informatics [employer] Context.com/sites/default/files/product/ documents/Fyth_Umqib_Rcacwakw_Dtgq_FFBN-MvD-1.pdfPerforming Laboratory:[facility], [place] [address]MVMT-MRKWDLU METER 2021-03-27 07:00:17 Test Item Value Reference Range Interpretation Comments POC-GLUCOSE METER 81 mg/dL 70-110 : TESTED Kya T [facility] 6720 (FELISHA) (test code = JAMIE Cabrales [facility], 1538) [id number]: Hoop Maker/Techni kaushik ID = [id number] for Mavis Noonan [id number] 06:12:51 Test Item Value Reference Range Interpretation Comments MAGNESIUM (FELISHA) (test code = 1.9 mg/dL 1.6-2.6 627) Hoop Maker ID - [id number] 06:12:51 Test Item Value Reference Range Interpretation Comments PHOSPHORUS (BEAKER) (test code = 3.1 mg/dL 2.3-4.7 604) Hoop Maker ID - JRLCOMPREHENSIVE METABOLIC [id number] 06:12:50 Test Item Value Reference Range Interpretation [...] S NOT APPLICABLE FOR DIALYSIS PATIEN TS. Hoop Maker ID - JRLCBC W/PLT COUNT & AUTO [id number] 05:43:01 Test Item Value Reference Range Interpretation [...] PERCENT (BEAKER) (test code = 2801) POCT-GLUCOSE [id number] 00:38:16 Test Item Value Reference Range Interpretation Comments POC-GLUCOSE METER 85 mg/dL 70-110 : TESTED A T [facility] 6720 (BEAKER) (test code = [facility], 1538) 78509: Hoop Maker/Techni kaushik ID = [id number] for Mavis Noonan POCT-GLUCOSE [id number] 17:30:06 Test Item Value Reference Range Interpretation Comments POC-GLUCOSE METER 118 mg/dL 70-110 H : TESTED A T [facility] 6720 (BEAKER) (test code = [facility], 1538) 02190: Hoop Maker/Techni kaushik ID = [id number] for MOISES SETHI HEMOGLOBIN AND [id number] 17:20:47 Test Item Value Reference Range Interpretation Comments HEMOGLOBIN (BEAKER) (test code = 7.4 GM/DL 11.2-15.7 L 410) HEMATOCRIT (BEAKER) (test code = 23.1 % 34.1-44.9 L 411) Hoop Maker ID - 6000POCT-GLUCOSE [id number] 12:41:00 Test Item Value Reference Range Interpretation Comments POC-GLUCOSE METER 105 mg/dL 70-110 : TESTED A T [facility] 6720 (BEAKER) (test code = [facility], 1538) 41717: Hoop Maker/Techni kaushik ID = [id number] for DANAY MARQUEZ SARS-COV2/RT-PCR ([facility])2021-03-26 10:44:30 Test Item Value Reference Range Interpretation Comments SARS-COV2/RT-PCR (test Negative Not Detected, Negative, code = 1154724) See external report for linked test SARS-COV-2 PERFORMING LAB [facility] [place] (test code = 9804012) Negative result for this test determines that [...] 564(g) of the Act.Fact Sheet for Healthcare Providers:https://www.In[employer] Context.C[employer]oLife/sites/default/files/product/documents/Fact_Shee a_UI_Lgwasjmze_Lxuw_CRYF-FjL-4.pdfFact Sheet for Healthcare Patients:https://www.[employer]oLife/sites/default/files/product/ documents/Ydfd_Xfwuo_Bcuawmdd_Mzsw_UNFL-ZcS-4.pdfPerforming Laboratory:[facility], [place] [id number] 06:44:05 Test Item Value Reference Range Interpretation Comments MAGNESIUM (BEAKER) (test code = 1.9 mg/dL 1.6-2.6 627) Hoop Maker ID - DEWAYNE [id number] 06:44:05 Test Item Value Reference Range Interpretation Comments PHOSPHORUS (BEAKER) (test code = 2.7 mg/dL 2.3-4.7 604) Hoop Maker ID Nakita BUCHANAN WCOMPREHENSIVE METABOLIC [id number] 06:44:04 Test Item Value Reference Range Interpretation [...] S NOT APPLICABLE FOR DIALYSIS PATIEN TS. Hoop Maker ID - DEWAYNE WCBC W/PLT COUNT & AUTO [id number] 06:33:22 Test Item Value Reference Range Interpretation [...] PERCENT (BEAKER) (test code = 2801) POCT-GLUCOSE [id number] 06:18:41 Test Item Value Reference Range Interpretation Comments POC-GLUCOSE METER 99 mg/dL 70-110 : TESTED A T [facility] 6720 (BEAKER) (test code = [facility], 1538) 16776: Hoop Maker/Techni kaushik ID = [id number] for Lore Stokes POCT-GLUCOSE [id number] 00:16:02 Test Item Value Reference Range Interpretation Comments POC-GLUCOSE METER 89 mg/dL 70-110 : TESTED A T [facility] 6720 (BEAKER) (test code = [facility], 1538) 43141: Hoop Maker/Techni kaushik ID = [id number] for Lore Stokes POCT-GLUCOSE [id number] 18:26:03 Test Item Value Reference Range Interpretation Comments POC-GLUCOSE METER 110 mg/dL 70-110 : TESTED A T [facility] 6720 (BEAKER) (test code = [facility], 1538) 01649: Hoop Maker/Techni kaushik ID = [id number] for ABISAI SILVA POCT-GLUCOSE [id number] 13:19:38 Test Item Value Reference Range Interpretation Comments POC-GLUCOSE METER 109 mg/dL 70-110 : TESTED A T [facility] 6720 (BEAKER) (test code = [facility], 153) 95749: Hoop Maker/Techni kaushik ID = [id number] for ABISAI SILVA CBC W/PLT COUNT & AUTO [id number] 08:04:36 Test Item Value Reference Range Interpretation [...] 0-1 PERCENT (BEAKER) (test code = 2801) [id number] 07:24:14 Test Item Value Reference Range Interpretation Comments PHOSPHORUS (BEAKER) (test code = 2.3 mg/dL 2.3-4.7 604) Hoop Maker LUPE BUCHANAN WCOMPREHENSIVE METABOLIC [id number] 07:24:13 Test Item Value Reference Range Interpretation [...] S NOT APPLICABLE FOR DIALYSIS PATIEN TS. Hoop Maker ID - DEWAYNE [id number] 07:24:13 Test Item Value Reference Range Interpretation Comments MAGNESIUM (BEAKER) (test code = 1.8 mg/dL 1.6-2.6 627) Hoop Maker ID Nakita BUCHANAN WPOCT-GLUCOSE [id number] 18:41:45 Test Item Value Reference Range Interpretation Comments POC-GLUCOSE METER 96 mg/dL 70-110 : TESTED A T [facility] 6720 ([employer]) (test code = [facility], 1538) 24986: Hoop Maker/Techni kaushik ID = [id number] for ASCENCION SAGE, KARAN POCT-GLUCOSE [id number] 11:57:32 Test Item Value Reference Range Interpretation Comments POC-GLUCOSE METER 146 mg/dL 70-110 H : TESTED A T [facility] 6720 (BEAKER) (test code = [facility], 1538) 49833: Hoop Maker/Techni kaushik ID = [id number] for AK INSONU, KARAN POCT-GLUCOSE [id number] 08:36:14 Test Item Value Reference Range Interpretation Comments POC-GLUCOSE METER 103 mg/dL 70-110 : TESTED A T [facility] 6720 (BEAKER) (test code = [facility], 1538) 14988: Hoop Maker/Techni kaushik ID = [id number] for AK INSONU, KARAN COMPREHENSIVE METABOLIC [id number] 08:08:55 Test Item Value Reference Range Interpretation [...] S NOT APPLICABLE FOR DIALYSIS PATIEN TS. Hoop Maker ID - [id number] 07:41:23 Test Item Value Reference Range Interpretation Comments MAGNESIUM (BEAKER) (test code = 1.8 mg/dL 1.6-2.6 627) Hoop Maker ID - [id number] 07:41:23 Test Item Value Reference Range Interpretation Comments PHOSPHORUS (BEAKER) (test code = 2.3 mg/dL 2.3-4.7 604) Hoop Maker ID - DBCBC W/PLT COUNT & AUTO [id number] 07:24:27 Test Item Value Reference Range Interpretation [...] PERCENT (BEAKER) (test code = 2801) POCT-GLUCOSE [id number] 05:13:18 Test Item Value Reference Range Interpretation Comments POC-GLUCOSE METER 91 mg/dL 70-110 : TESTED A T [facility] 6720 (BEAKER) (test code = JAMIE Cabrales [facility], 1538) 0[address]: Hoop Maker/Techni kaushik ID = [id number] for SUZANNA LIU POCT-GLUCOSE [id number] 00:08:50 Test Item Value Reference Range Interpretation Comments POC-GLUCOSE METER 109 mg/dL 70-110 : TESTED A T [facility] 6720 (BEAKER) (test code = JAMIE Cabrales [facility], 1538) 20238: Hoop Maker/Techni kaushik ID = [id number] for DE NNTODD ROMERO [id number] 07:11:30 Test Item Value Reference Range Interpretation Comments MAGNESIUM (BEAKER) (test code = 1.9 mg/dL 1.6-2.6 627) Hoop Maker ID - SHAE [id number] 07:11:30 Test Item Value Reference Range Interpretation Comments PHOSPHORUS (BEAKER) (test code = 2.3 mg/dL 2.3-4.7 604) Hoop Maker ID - PIAYA LCOMPREHENSIVE METABOLIC [id number] 07:11:29 Test Item Value Reference Range Interpretation [...] S NOT APPLICABLE FOR DIALYSIS PATIEN TS. Hoop Maker ID - PIAYA LPOCT-GLUCOSE [id number] 06:13:33 Test Item Value Reference Range Interpretation Comments POC-GLUCOSE METER 99 mg/dL 70-110 : TESTED A T [facility] 6720 (BEAKER) (test code = [facility] [place], 1538) 28614: Hoop Maker/Techni kaushik ID = [id number] for CB RIES CBC W/PLT COUNT & AUTO [id number] 05:36:33 Test Item Value Reference Range Interpretation [...] PERCENT (BEAKER) (test code = 2801) POCT-GLUCOSE [id number] 00:31:23 Test Item Value Reference Range Interpretation Comments POC-GLUCOSE METER 104 mg/dL 70-110 : TESTED A T [facility] 6720 (BEAKER) (test code = [facility], 153) 26343: Hoop Maker/Techni kaushik ID = [id number] for CB COULTER POCT-GLUCOSE [id number] 17:25:03 Test Item Value Reference Range Interpretation Comments POC-GLUCOSE METER 114 mg/dL 70-110 H : TESTED A T [facility] 6720 (BEAKER) (test code = [facility] [employer] [facility], 1538) 81485: Hoop Maker/Techni kaushik ID = [id number] for ABISAI SILVA POCT-GLUCOSE [id number] 12:56:53 Test Item Value Reference Range Interpretation Comments POC-GLUCOSE METER 133 mg/dL 70-110 H : TESTED A T [facility] 6720 (BEAKER) (test code = [facility] [facility], 1538) 58896: Hoop Maker/Techni kaushik ID = [id number] for ABISAI SILVA POCT-GLUCOSE [id number] 06:10:41 Test Item Value Reference Range Interpretation Comments POC-GLUCOSE METER 123 mg/dL 70-110 H : Notified RN/MD: (LISANDROAKER) (test code = TESTED AT [facility] 6759 1538) MESHA [facility], [address]: Hoop Maker/Techni kaushik ID = [id number] for CHERYL MANZO [id number] 04:47:21 Test Item Value Reference Range Interpretation Comments MAGNESIUM (BEAKER) (test code = 2.0 mg/dL 1.6-2.6 627) Hoop Maker ID - CATRACHO [id number] 04:47:21 Test Item Value Reference Range Interpretation Comments PHOSPHORUS (BEAKER) (test code = 2.1 mg/dL 2.3-4.7 L 604) Hoop Maker ID - CATRACHO MCOMPREHENSIVE METABOLIC [id number] 04:47:20 Test Item Value Reference Range Interpretation [...] S NOT APPLICABLE FOR DIALYSIS PATIEN TS. Hoop Maker ID - CATRACHO MCBC W/PLT COUNT & AUTO [id number] 04:08:41 Test Item Value Reference Range Interpretation [...] NEUTROPHILS ABSOLUTE COUNT 5.42 K/ L 1.56-6.13 ([facility]) (test code = 670) LYMPHOCYTES ABSOLUTE COUNT 0.91 K/ L 1.18-3.74 L (AKER) (test code = 414) MONOCYTES ABSOLUTE COUNT (BEAKER) 0.93 K/ L 0.24-0.36 H (test code = 415) EOSINOPHILS ABSOLUTE COUNT 0.19 K/ L 0.04-0.36 (BEAKER) (test code = 416) BASOPHILS ABSOLUTE COUNT (BEAKER) 0.01 K/ L 0.01-0.08 (test code = 417) IMMATURE GRANULOCYTES-RELATIVE 0 % 0-1 PERCENT ([facility]) (test code = 2801) POCT-GLUCOSE [id number] 23:46:34 Test Item Value Reference Range Interpretation Comments POC-GLUCOSE METER 132 mg/dL 70-110 H : Notified RN/MD: ([facility]) (test code = TESTED AT [place] [address] 1538) [facility], [address]: Hoop Maker/Techni kaushik ID = [id number] for DO VE, CHEKARA POCT-GLUCOSE [id number] 18:31:36 Test Item Value Reference Range Interpretation Comments POC-GLUCOSE METER 137 mg/dL 70-110 H : TESTED A T [facility] 6720 ([facility]) (test code = [facility], 153) 45477: Hoop Maker/Techni kaushik ID = [id number] for ROBINA RTINEZ, DANAY POCT-GLUCOSE [id number] 12:33:28 Test Item Value Reference Range Interpretation Comments POC-GLUCOSE METER 128 mg/dL 70-110 H : TESTED A T [facility] 6720 ([facility]) (test code = [facility], 153) 62369: Hoop Maker/Techni kaushik ID = [id number] for MA RTINEZ, DANAY [id number] 07:06:08 Test Item Value Reference Range Interpretation Comments PHOSPHORUS ([facility]) (test code = 4.4 mg/dL 2.3-4.7 604) Hoop Maker ID - SHAE LCOMPREHENSIVE METABOLIC [id number] 07:06:07 Test Item Value Reference Range Interpretation Comments TOTAL PROTEIN 5.7 gm/dL 6.0-8.3 L ([facility]) (test code = 770) ALBUMIN (BEAKER) 3.5 [...] S NOT APPLICABLE FOR DIALYSIS PATIEN TS. Hoop Maker ID - PIDOUGLAS [id number] 07:06:07 Test Item Value Reference Range Interpretation Comments MAGNESIUM (BEAKER) (test code = 2.3 mg/dL 1.6-2.6 627) Hoop Maker ID - PIAYA LPOCT-GLUCOSE [id number] 06:31:52 Test Item Value Reference Range Interpretation Comments POC-GLUCOSE METER 119 mg/dL 70-110 H : TESTED A T [facility] 6720 (BEAKER) (test code = [facility] [place], 1538) 164[address]: Hoop Maker/Techni kaushik ID = [id number] for TIFFANIE WHITT CBC W/PLT COUNT & AUTO [id number] 04:39:54 Test Item Value Reference Range Interpretation [...] PERCENT (BEAKER) (test code = 2801) POCT-GLUCOSE [id number] 00:11:53 Test Item Value Reference Range Interpretation Comments POC-GLUCOSE METER 106 mg/dL 70-110 : TESTED A T [facility] 6720 (BEAKER) (test code = [facility], 1538) 78361: Hoop Maker/Techni kaushik ID = [id number] for TIFFANIE WHITT URINALYSIS W/ REFLEX URINE [id number] 19:10:53 Test Item Value Reference Range Interpretation [...] = 1521) SOURCE(BEAKER) (test code = 2795) Hoop Maker ID - [auto]Hoop Maker ID - techPOCT-GLUCOSE [id number] 18:31:06 Test Item Value Reference Range Interpretation Comments POC-GLUCOSE METER 95 mg/dL 70-110 : TESTED A T [facility] 6720 (BEAKER) (test code = [facility], 1538) 33035: Hoop Maker/Techni kaushik ID = [id number] for MARIANGEL PLEITEZ, DANAY RAD, CHEST, 1 VIEW, NON [id number] 14:59:00Reason for exam:->follwo up interstitial infeiltratesShould this be performed at the bedside?->Yes [facility] 1935 Sex: FFINAL REPORT Chest one view. Clinical history: follow up interstitial infiltrates Comparison: March 17, 2021 Discussion: A frontal chest is provided. Cardiomediastinal contours are unchanged. Tip of Corpak projects over the stomach. There is no juana pulmonary edema, consolidation, pneumothorax, or large effusion. Interstitial prominence has resolved. Signed: Parisa Vanegas Verified Date/Time: 03/20/2021 14:59:46 Reading Location: [address] Consult Reading Room POCT-GLUCOSE [id number] 12:21:05 Test Item Value Reference Range Interpretation Comments POC-GLUCOSE METER 78 mg/dL 70-110 : TESTED A T [facility] 6720 (BEAKER) (test code = [facility] [place], 1538) [address]: Hoop Maker/Techni kaushik ID = [id number] for MARIANGEL PLEITEZ, DANAY CT, BRAIN, WITHOUT [id number] 12:04:00Unlisted Reason for Exam - Click Yes and Enter Reason Below->No [facility] : 1935 Sex: FAddendum BeginsREPORT STATUS:A 3-D reconstructions were obtained anastasia separate workstation and added to PACS after the report was finalized. There is no significant change to the initial interpretation. Signed: MartyjhoanaCecy correae MDReport Verified Date/Time: 03/20/2021 12:04:41 Addendum EndsFINAL [...] Kathe Jones Verified Date/Time: 03/19/2021 17:19:49 CT, CTANGIO BRAIN 2021-03-20 12:04:00Unlisted Reason for Exam - Click Yes and Enter Reason Below->No[facility] : 1935 Sex: FAddendum BeginsREPORT STATUS:A 3-D reconstructions were obtained anastasia separate workstation and added to PACS after the report was finalized. There is no significant change to the initial interpretation. Signed: Zoila Jones Verified Date/Time: 03/20/2021 12:04:41 Addendum EndsFINAL [...] - Click Yes and Enter Reason Below->No[facility] : 1935 Sex: FAddendum BeginsREPORT STATUS:A 3-D reconstructions were obtained anastasia separate workstation and added to PACS after the report was finalized. There is no significant change to the initial interpretation. Signed: Zoila Jones MDReport Verified Date/Time: 03/20/2021 12:04:41 Addendum [...] 73 mg/dL 70-110 : TESTED A T [facility] 6720 (BEAKER) (test [facility] = [facility], 1538) 997[address]: Hoop Maker/Techni kaushik ID = [id number] for ABISAI WEINER [id number] 06:26:24 Test Item Value Reference Range Interpretation Comments MAGNESIUM (BEAKER) (test code = 2.4 mg/dL 1.6-2.6 627) Hoop Maker ID - CATRACHO [id number] 06:26:24 Test Item Value Reference Range Interpretation Comments PHOSPHORUS (BEAKER) (test code = 5.5 mg/dL 2.3-4.7 H 604) Hoop Maker ID - CATRACHO MCOMPREHENSIVE METABOLIC [id number] 06:26:23 Test Item Value Reference Range Interpretation [...] S NOT APPLICABLE FOR DIALYSIS PATIEN TS. Hoop Maker ID - CATRACHO MCBC W/PLT COUNT & AUTO [id number] 06:10:19 Test Item Value Reference Range Interpretation [...] PERCENT (BEAKER) (test code = 2801) POCT-GLUCOSE [id number] 00:30:31 Test Item Value Reference Range Interpretation Comments POC-GLUCOSE METER 80 mg/dL 70-110 : TESTED Kya Bennett [facility] 6720 (BEAKER) (test code = [facility] [place], 1538) 0[address]: Hoop Maker/Techni kaushik ID = [id number] for TIFFANIE DONALDSON POCT-GLUCOSE [id number] 17:50:50 Test Item Value Reference Range Interpretation Comments POC-GLUCOSE METER 93 mg/dL 70-110 : TESTED A T [facility] 6720 (FELISHA) (test code = [facility] [place], 1538) 41075: Hoop Maker/Techni kaushik ID = [id number] for DANAY MASSEY SARS-COV2/RT-PCR ([facility])2021-03-19 13:50:07 Test Item Value Reference Range Interpretation Comments SARS-COV2/RT-PCR (test Negative Not Detected, Negative, code = 8675826) See external report for linked test SARS-COV-2 PERFORMING LAB [facility] BLANQUITA (test code = 5879794) Negative result for this test determines that [...] 564(g) of the Act.Fact Sheet for Healthcare Providers:https://www.[employer]/sites/default/files/product/documents/Fact_Shee t_NE_Oawrdwsvp_Dubd_MUTS-QdP-3.pdfFact Sheet for Healthcare Patients:https://www.[employer]/sites/default/files/product/ documents/Vxro_Egstk_Uqtburop_Mbqi_OUKR-SuD-1.pdfPerforming Laboratory:[facility], [place] [address]GHBV-YFTZLMR METER 2021-03-19 12:25:24 Test Item Value Reference Range Interpretation Comments POC-GLUCOSE METER 99 mg/dL 70-110 : TESTED A T [facility] 6720 (BEAKER) (test code = JAMIE Cabrales [facility], 1538) 54560: Hoop Maker/Techni kaushik ID = [id number] for DANAY MASSEY [id number] 11:06:15 Test Item Value Reference Range Interpretation Comments RPR SCREEN (BEAKER) (test code = Nonreactive Nonreactive 420) POCT-GLUCOSE [id number] 06:58:31 Test Item Value Reference Range Interpretation Comments POC-GLUCOSE METER 96 mg/dL 70-110 : TESTED A T [facility] 6720 (BEAKER) (test code = JAMIE Cabrales [facility], 1538) 75724: Hoop Maker/Techni kaushik ID = [id number] for Mavis Noonan [id number] 06:11:28 Test Item Value Reference Range Interpretation Comments MAGNESIUM (BEAKER) (test code = 2.1 mg/dL 1.6-2.6 627) Hoop Maker ID - SHAE [id number] 06:11:28 Test Item Value Reference Range Interpretation Comments PHOSPHORUS (BEAKER) (test code = 4.0 mg/dL 2.3-4.7 604) Hoop Maker ID - PIAYA LCOMPREHENSIVE METABOLIC [id number] 06:11:27 Test Item Value Reference Range Interpretation [...] S NOT APPLICABLE FOR DIALYSIS PATIEN TS. Hoop Maker ID - PIAYA LCBC W/PLT COUNT & AUTO [id number] 06:07:52 Test Item Value Reference Range Interpretation [...] PERCENT (BEAKER) (test code = 2801) POCT-GLUCOSE [id number] 00:26:50 Test Item Value Reference Range Interpretation Comments POC-GLUCOSE METER 94 mg/dL 70-110 : TESTED A T [facility] 6720 (BEAKER) (test code = [facility] [place], 1538) [address]: Hoop Maker/Techni kaushik ID = [id number] for Weav er, Mavis RAD, ABDOMEN/KUB, 1 VIEW [id number] 22:24:00Reason for exam:->corpak placementL[facility]Name: [facility] : 1935 Sex: FFINAL REPORT [...] There is no acute bony abnormality. Signed: Jordan Coburneport Verified Date/Time: 03/18/2021 22:24:48 POCT-GLUCOSE [id number] 18:14:14 Test Item Value Reference Range Interpretation Comments POC-GLUCOSE METER 103 mg/dL 70-110 : TESTED A [facility] ([employer]) (test code = [facility], 1538) 89019: Hoop Maker/Techni kaushik ID = [id number] for Karen Arauz POCT-GLUCOSE [id number] 06:34:39 Test Item Value Reference Range Interpretation Comments POC-GLUCOSE METER 106 mg/dL 70-110 : TESTED A T [facility] 6720 (BEAKER) (test code = [facility], 1538) 10516: Hoop Maker/Techni kaushik ID = [id number] for LASHAY GRANADOI TH CT, BRAIN, WITHOUT [id number] 04:55:00Unlisted Reason for Exam - Click Yes and Enter Reason Below->No [facility] : 1935 Sex: FFINAL [...] Verified Date/Time: 03/18/2021 04:55:48 HIGH SENSITIVITY TROPONIN [id number] 04:28:08 Test Item Value Reference Range Interpretation Comments HIGH SENSITIVITY 2424 pg/ml See_Comment HH [Automated message] TROPONIN I (test code The sy stem which = [id number]) generated this result transmitted ref erence range: <=17. Th e reference range was not used to int erpret this result as normal/abnormal . Hoop Maker ID - PIAYA LThe LEATHER SCRAPER STAT High Sensitivity Troponin-I results should be used in conjunction with other diagnostic information such as ECG, clinical observations and information, and patient symptoms to aid in the diagnosis of IL.COMPREHENSIVE METABOLIC [id number] 04:26:59 Test Item Value Reference Range Interpretation [...] S NOT APPLICABLE FOR DIALYSIS PATIEN TS. Hoop Maker ID - PIAYA [id number] 04:26:58 Test Item Value Reference Range Interpretation Comments MAGNESIUM (BEAKER) 2.4 mg/dL 1.6-2.6 Specimen slightly (test code = 627) hemolyzed Hoop Maker ID - PIAYA [id number] 04:26:58 Test Item Value Reference Range Interpretation Comments PHOSPHORUS (BEAKER) 3.7 mg/dL 2.3-4.7 Specimen slightly (test code = 604) hemolyzed Hoop Maker ID - PIAYA LCBC W/PLT COUNT & AUTO [id number] 04:21:01 Test Item Value Reference Range Interpretation [...] (test code = 416) BASOPHILS ABSOLUTE COUNT (LISANDROAKER) 0.02 K/ L 0.01-0.08 (test code = 417) IMMATURE GRANULOCYTES-RELATIVE 0 % 0-1 PERCENT (LISANDROAKER) (test code = 2801) POCT-GLUCOSE [id number] 00:41:25 Test Item Value Reference Range Interpretation Comments POC-GLUCOSE METER 106 mg/dL 70-110 : TESTED A T [facility] 6720 (FELISHA) (test code = JAMIE Cabrales [facility], 1538) 16966: Hoop Maker/Techni kaushik ID = [id number] for CYRUS GRANADO HIGH SENSITIVITY TROPONIN [id number] 16:58:20 Test Item Value Reference Range Interpretation Comments HIGH SENSITIVITY 4622 pg/ml See_Comment HH [Automated message] TROPONIN I (test code The sy stem which = [id number]) generated this result transmitted ref erence range: <=17. Th e reference range was not used to int erpret this result as normal/abnormal . Hoop Maker ID - CATRACHO [employer] LEATHER SCRAPER STAT High Sensitivity Troponin-I results should be used in conjunction with other diagnostic information such as ECG, clinical observations and information, and patient symptoms to aid in the diagnosis of IL.HEMOGLOBIN [id number] 13:03:51 Test Item Value Reference Range Interpretation Comments HEMOGLOBIN A1C (FELISHA) (test code = 5.7 % 4.3-6.1 368) HIGH SENSITIVITY TROPONIN [id number] 08:36:08 Test Item Value Reference Range Interpretation Comments HIGH SENSITIVITY 5997 pg/ml See_Comment HH [Automated message] TROPONIN I (test code The sy stem which = [id number]) generated this result transmitted ref erence range: <=17. Th e reference range was not used to int erpret this result as normal/abnormal . Hoop Maker ID - CATRACHO [employer] LEATHER SCRAPER STAT High Sensitivity Troponin-I results should be used in conjunction with other diagnostic information such as ECG, clinical observations and information, and patient symptoms to aid in the diagnosis of IL.Hoop Maker ID - CATRACHO MRAD, CHEST, 1 VIEW, NON [id number] 06:47:00Reason for exam:->Desat [facility] : 1935 Sex: FFINAL REPORT RAD, CHEST, 1 VIEW, NON DEPT INDICATION: Desat COMPARIS ON: Prior day's exam FINDINGS: Portable frontal view of the chest. IMPRESSION: Support Lines: Overlying leads Lungs and pleura: Unchanged mild diffuse interstitial thickening, representing singly or in combination, interstitial edema and/or pneumonitis. No significant pneumothorax. Heart and mediastinum: Stable contours. Additional findings: None. Signed: Vani Denis Verified Date/Time: 03/17/2021 06:47:48 POCT-GLUCOSE [id number] 06:40:01 Test Item Value Reference Range Interpretation Comments POC-GLUCOSE METER 102 mg/dL 70-110 : TESTED A T [facility] 6720 (BEAKER) (test code = JAMIE Cabrales [facility], 1538) 99234: Hoop Maker/Techni kaushik ID = [id number] for EMILIE WESTON VITAMIN B12 AND [id number] 03:42:15 Test Item Value Reference Range Interpretation Comments VITAMIN B12 (BEAKER) 715 pg/mL 213-816 (test code = 774) FOLATE (BEAKER) 3.20 ng/mL See_Comment L [Automated message] (test code = 362) The system which generated this result transmitted ref erence range: >=7.00. The reference range was not used to interpr et this result as normal/abnormal . Hoop Maker ID - CATRACHO MTSH/FREE T4 IF [id number] 03:42:14 Test Item Value Reference Range Interpretation Comments THYROID STIMULATING HORMONE 0.995 uIU/mL 0.350-4.940 (BEAKER) (test code = 772) Hoop Maker ID - CATRACHO MHIGH SENSITIVITY TROPONIN [id number] 02:10:06 Test Item Value Reference Range Interpretation Comments HIGH SENSITIVITY 752 pg/ml See_Comment HH [Automated message] TROPONIN I (test code The sy stem which = [id number]) generated this result transmitted ref erence range: <=17. Th e reference range was not used to int erpret this result as normal/abnormal . Hoop Maker ID - DBThe LEATHER SCRAPER STAT High Sensitivity Troponin-I results should be used in conjunctionwith other diagnostic information such as ECG, clinical observations and information, and patient symptoms to aid in the diagnosis of IL.B-TYPE NATRIURETIC FACTOR (BNP)2021-03-17 02:05:41 Test Item Value Reference Range Interpretation Comments B-TYPE NATRIURETIC PEPTIDE (BEAKER) 620 pg/mL 0-100 H (test code = 700) Hoop Maker ID - DBLACTIC ACID, [id number] 01:57:01 Test Item Value Reference Range Interpretation Comments LACTATE BLOOD VENOUS 0.59 mmol/L 0.50-2.20 Specime n moderately (2) (BEAKER) (test hemolyzed code = 2872) Hoop Maker ID - DBCBC W/PLT COUNT & AUTO [id number] 01:39:26 Test Item Value Reference Range Interpretation [...] 0-1 PERCENT (BEAKER) (test code = 2801) [id number] 01:36:41 Test Item Value Reference Range Interpretation Comments PHOSPHORUS (BEAKER) (test code = 3.6 mg/dL 2.3-4.7 604) Hoop Maker ID - DBLIPID [id number] 01:36:41 Test Item Value Reference Range Interpretation [...] Borderline 130-159 High 160-189 Very High >=190 Hoop Maker ID - DBCOMPREHENSIVE METABOLIC [id number] 01:36:40 Test Item Value Reference Range Interpretation [...] S NOT APPLICABLE FOR DIALYSIS PATIEN TS. Hoop Maker ID - [id number] 01:36:40 Test Item Value Reference Range Interpretation Comments MAGNESIUM (BEAKER) (test code = 1.6 mg/dL 1.6-2.6 627) Hoop Maker ID - [id number] 01:26:37 Test Item Value Reference Range Interpretation Comments FIBRINOGEN LEVEL (BEAKER) (test 227 mg/dl 225-434 code = 658) [id number] 01:26:37 Test Item Value Reference Range Interpretation Comments PARTIAL THROMBOPLASTIN TIME 29.3 seconds 22.5-36.0 (BEAKER) (test code = 760) PROTHROMBIN [id number] 01:25:54 Test Item Value Reference Range Interpretation Comments PROTIME (BEAKER) 14.4 seconds 11.9-14.2 H (test code = 759) INR (BEAKER) (test 1.14 See_Comment [Automat ed message] code = 370) The system [employer] generated this result transmitted ref erence range: <=5.90. The reference range was not used to int erpret this result as normal/abnormal . RECOMMENDED COUMADIN/WARFARIN INR THERAPY RANGESSTANDARD DOSE: 2.0 - 3.0 Includes: PROPHYLAXIS forvenous thrombosis, systemic embolization; TREATMENT for venous thrombosis and/or pulmonary embolus.HIGH RISK: Target INR is 2.5-3.5 for patients with mechanical heart valves.[id number] 01:11:30 Test Item Value Reference Range Interpretation Comments AMMONIA (BEAKER) (test code = 348) 23 mol/L 18-72 Hoop Maker ID - DBBASIC METABOLIC [id number] 07:17:00 Test Item Value Reference Range Interpretation [...] PATIEN TS. CBC W/PLT COUNT & AUTO [id number] 06:55:00 Test Item Value Reference Range Interpretation [...] (BEAKER) (test code = 2801) BASIC METABOLIC [id number] 05:32:00 Test Item Value Reference Range Interpretation [...] PATIEN TS. CBC W/PLT COUNT & AUTO [id number] 05:11:00 Test Item Value Reference Range Interpretation [...] 0-1 PERCENT (BEAKER) (test code = 2801) [id number] 07:46:00 Test Item Value Reference Range Interpretation Comments MAGNESIUM (BEAKER) (test code = 2.2 mg/dL 1.6-2.6 627) BASIC METABOLIC [id number] 07:46:00 Test Item Value Reference Range Interpretation [...] PATIEN TS. CBC W/PLT COUNT & AUTO [id number] 07:31:00 Test Item Value Reference Range Interpretation [...] (BEAKER) (test code = 2801) BASIC METABOLIC [id number] 14:48:00 Test Item Value Reference Range Interpretation [...] S NOT APPLICABLE FOR DIALYSIS PATIEN TS. [id number] 06:03:00 Test Item Value Reference Range Interpretation [...] 0-0 (BEAKER) (test code = 413) POCT-GLUCOSE [id number] 14:00:00 Test Item Value Reference Range Interpretation Comments POC-GLUCOSE METER 283 mg/dL 70-110 H TESTED AT [facility] 6720 (BEAKER) (test code = JAMIE MANCERA 1538) [address] [id number] 05:56:00 Test Item Value Reference Range Interpretation Comments MAGNESIUM (BEAKER) (test code = 2.8 mg/dL 1.6-2.6 H 627) BASIC METABOLIC [id number] 05:56:00 Test Item Value Reference Range Interpretation [...] 34.9 % 34.1-44.9 411) MEAN CORPUSCULAR VOLUME (BEAKER) 98.9 fL 79.4-94.8 H (test code = [...] WBC 0-0 (BEAKER) (test code = 413) [id number] 23:41:00 Test Item Value Reference Range Interpretation Comments ACTIVATED CLOTTING TIME 92 sec TEST ED AT [facility] 6720 (BEAKER) (test code = [place] 441) [id number] 21:56:00 Test Item Value Reference Range Interpretation Comments ACTIVATED CLOTTING TIME 153 sec TEST ED AT [place] [address] ([facility]) (test code = JAMIE Cabrales [facility] 441) [id number] 19:28:00 Test Item Value Reference Range Interpretation Comments ACTIVATED CLOTTING TIME 197 sec TEST ED AT [place] [address] ([facility]) (test code = JAMIE Cabrales [place] [address]) [id number] 17:41:00 Test Item Value Reference Range Interpretation Comments ACTIVATED CLOTTING TIME 246 sec TEST ED AT [place] [address] ([facility]) (test code = JAMIE Cabrales [place] [address]) [id number] 12:36:00 Test Item Value Reference Range Interpretation Comments POTASSIUM (BEAKER) (test code = 4.0 meq/L 3.5-5.1 379) TROPONIN [id number] 12:03:00 Test Item Value Reference Range Interpretation Comments TROPONIN I (BEAKER) (test code = 3.94 ng/mL 0.00-0.03 397) Troponin I (TnI) levels [...] failure, acidosis, acute neurological disease, and persistent tachyarrhythmia.[id number] 11:44:00 Test Item Value Reference Range Interpretation Comments MAGNESIUM (BEAKER) (test code = 1.9 mg/dL 1.6-2.6 627) [id number] 11:37:00 Test Item Value Reference Range Interpretation Comments PARTIAL THROMBOPLASTIN TIME 98.3 seconds 22.5-36.0 H (BEAKER) (test code = 760) [id number] 04:04:00 Test Item Value Reference Range Interpretation Comments PARTIAL THROMBOPLASTIN TIME 92.5 seconds 22.5-36.0 H (BEAKER) (test code = 760) TROPONIN [id number] 02:06:00 Test Item Value Reference Range Interpretation [...] acute neurological disease, and persistent tachyarrhythmia.BASIC METABOLIC [id number] 01:56:00 Test Item Value Reference Range Interpretation [...] S NOT APPLICABLE FOR DIALYSIS PATIEN TS. [id number] 01:53:00 Test Item Value Reference Range Interpretation [...] 2.5-3.5 for patients with mechanical heart valves.PROTHROMBIN TIME/[id number] 01:50:00 Test Item Value Reference Range Interpretation [...] 0-1 PERCENT (BEAKER) (test code = 2801) [id number] 23:09:00 Test Item Value Reference Range Interpretation Comments RPR SCREEN (BEAKER) (test code = Nonreactive Nonreactive 420) TROPONIN [id number] 21:20:00 Test Item Value Reference Range Interpretation Comments TROPONIN I (BEAKER) (test code = 7.60 ng/mL 0.00-0.03 397) Troponin I (TnI) levels [...] failure, acidosis, acute neurological disease, and persistent tachyarrhythmia.[id number] 18:57:00 Test Item Value Reference Range Interpretation Comments PARTIAL THROMBOPLASTIN TIME 58.1 seconds 22.5-36.0 H (BEAKER) (test code = 760) TROPONIN [id number] 15:25:00 Test Item Value Reference Range Interpretation Comments TROPONIN I (BEAKER) (test code = 6.89 ng/mL 0.00-0.03 397) [...] for extra pokeRAD, CHEST, 1 VIEW, NON [id number] 11:13:00Reason for exam:->chest painFINAL REPORT HISTORY : [...] thoracic aorta with some atherosclerotic calcification. Signed: Cheyenne Gamble Verified Date/Time: 02/16/2018 11:13:08 Reading Location: [facility] Radiology Reading Room TROPONIN [id number] 09:59:00 Test Item Value Reference Range Interpretation Comments TROPONIN I (FELISHA) (test code = 6.35 ng/mL 0.00-0.03 397) [...] failure, acidosis, acute neurological disease, and persistent tachyarrhythmia.[id number] 09:06:00 Test Item Value Reference Range Interpretation Comments PARTIAL THROMBOPLASTIN TIME 26.7 seconds 22.5-36.0 (FELISHA) (test code = 760) Prior to initiating heparinPLATELET [id number] 08:48:00 Test Item Value Reference Range Interpretation Comments PLATELET COUNT (FELISHA) (test 230 K/CU MM 150-450 code = 756) CT BRAIN WITHOUT IV CONTRAST - [id number] 06:53:00Reason for exam:->post-tpaFINAL REPORT EXAM: CT head [...] MDReport Verified Date/Time: 02/16/2018 06:53:18 Reading Location: [facility] C[facility] Transitional Reading Room INI [id number] 03:14:00 Test Item Value Reference Range Interpretation Comments TROPONIN I (FELISHA) (test code = 3.40 ng/mL 0.00-0.03 397) Troponin I (TnI) levels [...] acute neurological disease, and persistent tachyarrhythmia.BASIC METABOLIC [id number] 02:53:00 Test Item Value Reference Range Interpretation [...] S NOT APPLICABLE FOR DIALYSIS PATIEN TS. [id number] 02:48:00 Test Item Value Reference Range Interpretation [...] 2.5-3.5 for patients with mechanical heart valves.PROTHROMBIN [id number] 02:47:00 Test Item Value Reference Range Interpretation [...] PERCENT (BEAKER) (test code = 2801) TROPONIN [id number] 17:32:00 Test Item Value Reference Range Interpretation [...] acidosis, acute neurological disease, and persistent tachyarrhythmia.HEMOGLOBIN [id number] 11:13:00 Test Item Value Reference Range Interpretation Comments HEMOGLOBIN A1C (BEAKER) (test code = 5.4 % 4.3-6.1 368) [id number] 05:41:00 Test Item Value Reference Range Interpretation Comments THYROID STIMULATING HORMONE 0.94 uIU/mL 0.35-4.94 (BEAKER) (test code = 772) VITAMIN B12 AND [id number] 05:41:00 Test Item Value Reference Range Interpretation Comments VITAMIN B12 (BEAKER) (test code = 1440 pg/mL 213-816 H 774) FOLATE (BEAKER) (test code = 362) 7.6 ng/mL >=7.0 [id number] 05:07:00 Test Item Value Reference Range Interpretation Comments MAGNESIUM (BEAKER) 1.7 mg/dL 1.6-2.6 Specimen slightly (test code = 627) hemolyzed BASIC METABOLIC [id number] 05:07:00 Test Item Value Reference Range Interpretation [...] NOT APPLICABLE FOR DIALYSIS PATIEN TS. LIPID [id number] 05:07:00 Test Item Value Reference Range Interpretation [...] 100-129 Borderline 130-159 High 160-189 Very High >=190PT/[id number] 04:54:00 Test Item Value Reference Range Interpretation [...] 2.5-3.5 for patients with mechanical heart valves.PROTHROMBIN [id number] 04:53:00 Test Item Value Reference Range Interpretation [...] (BEAKER) (test code = 2801) BASIC METABOLIC [id number] 16:02:00 Test Item Value Reference Range Interpretation [...] PATIEN TS. CBC W/PLT COUNT & AUTO [id number] 15:31:00 Test Item Value Reference Range Interpretation [...] % 0-1 PERCENT (BEAKER) (test code = 5771)
[2021-07-20 00:42] LABS: Hematocrit 27.5 % (36.0-45.0); Lymphocytes % 18.6 % (15.3-44.8); MPV 9.4 fL (7.6-11.3); RBC Red Blood Cell Count 2.94 M/uL (3.86-4.86)
[2021-07-20 00:47] LABS: Protime INR 0.92
[2021-07-20 00:54] LABS: Potassium 4.9 mmol/L (3.5-5.1)
--- NOTE | 2021-07-20 00:59 | ER ---
Nurse's Notes [facility] Name: Casey Lyons Age: 85 yrs Sex: Female : 1935 Arrival Date: 07/19/2021 Time: 23:36 Bed 13 Private MD: Gurdeep Koehler V Diagnosis: Numbness left hand Presentation: 07/19 23:46 Chief complaint: Patient states: My hand started having a funny feeling and it did the vc1 same thing last Friday when they shipped me up to [place] for a stroke. Coronavirus screen: Vaccine status: Patient reports being unvaccinated. At this time, the client does not indicate any symptoms associated with coronavirus-19. Ebola Screen: No symptoms or risks identified at this time. Initial Sepsis Screen: Does the patient meet any 2 criteria? No. Patient's initial sepsis screen is negative. Does the patient have a suspected source of infection? No. Patient's initial sepsis screen is negative. Risk Assessment: Do you want to hurt yourself or someone else? Patient reports no desire to harm self or others. Onset of symptoms was July 19, 2021. 23:46 Method Of Arrival: Ambulatory vc1 23:46 Acuity: CLINT 2 vc1 Triage Assessment: 07/20 00:01 General: Appears in no apparent distress. uncomfortable, Behavior is calm, cooperative, vc1 appropriate for age. Pain:. EENT: No deficits noted. Neuro: Level of Consciousness is awake, alert, obeys commands, Oriented to person, place, time, situation, Appropriate for age Gait is steady, Speech is normal, Facial symmetry appears normal, Reports numbness in left hand. Cardiovascular: Denies chest pain, shortness of breath. Respiratory: No deficits noted. Musculoskeletal: No deficits noted. Historical: - Allergies: 00:01 No Known Allergies; vc1 - Home Meds: : Apriso 0.375 gram Oral cp24 4 caps once daily [Active]; atorvastatin 80 mg Oral tab 1 michael tab once daily [Active]; carvedilol 25 mg Oral tab 1 tab 2 times per day [Active]; duloxetine 30 mg Oral cpDR 1 cap once daily [Active]; Fish Oil Oral [Active]; Integra Plus Oral 1 cap once daily [Active]; levothyroxine 25 mcg tab 1 tab once daily [Active]; losartan 100 mg Oral tab 1 tab once daily [Active]; PreserVision AREDS 2 Oral [Active]; Protonix 40 mg Oral grps 1 packet once daily [Active]; spironolactone 25 mg Oral tab 1 tab once daily [Active]; torsemide 10 mg Oral tab 1 tab once daily [Active]; - PMHx: 00:01 Cellulitis of Leg; Cerebrovascular accident; Crohn's; High Cholesterol; Hypertension; vc1 - PSHx: 00:01 None; vc1 - Immunization history:: Adult Immunizations up to date, Client reports having NOT received the Covid vaccine. - Social history:: Smoking status: Patient denies any tobacco usage or history of. Screenin:30 Abuse screen: Denies threats or abuse. Denies injuries from another. Nutritional michael screening: No deficits noted. Tuberculosis screening: No symptoms or risk factors identified. Fall Risk None identified. Assessment: 01:27 General: Appears in no apparent distress. comfortable, Behavior is calm, cooperative. michael Neuro: No deficits noted. Respiratory: No deficits noted. Musculoskeletal: No deficits noted. 01:35 General: Although a "code stroke" was called, when the pt arrived, she had no neuro michael deficits. She is familiar to this nurse as we had her as a patient a short time ago. She is AAOx4. She ambulates with no assist, using a cane and as stated above, has no neuro deficits. Pt ambulated out with her daughter when discharged. . Vital Signs: 07/19 23:59 BP 129 / 66; Pulse 71; Resp 18; Temp 97.6(TE); Pulse Ox 100% on R/A; Weight 63.5 kg; vc1 Pain 0/10; 07/20 00:04 BP 126 / 66; Pulse 71; Resp 18; Temp 97.6(TE); Pulse Ox 100% on R/A; vc1 00:30 BP 139 / 42; Pulse 66; Resp 18; Temp 98.5; Pulse Ox 100% on R/A; michael 01:27 BP 141 / 64; Pulse 65; Resp 18; Temp 98.5; Pulse Ox 100% ; michael ED Course: 07/19 23:36 Patient arrived in ED. es 23:37 Gurdeep Koehler MD is Private Physician. es 23:48 Triage completed. vc1 23:49 Newell, Pin, MD is Attending Physician. pkl 07/20 00:00 Arm band placed on right wrist. Patient placed in an exam room, on a stretcher, on vc1 secured entrance monitor, on pulse oximetry. 00:00 Patient has correct armband on for positive identification. Placed in gown. Bed in low michael position. Side rails up X2. Adult w/ patient. 00:00 EKG done, X-ray(s) taken. CT done. michael 00:12 CT Stroke Brain w/o Contrast In Process Unspecified. EDMS 00:20 initiated a transfer with Ayala from [facility]. mw2 00:27 Stroke CXR 1 View In Process Unspecified. EDMS 00:[address] Newell with the neurologist from [facility]. mw2 00:57 Gurdeep Koehler MD is Referral Physician. pkl 01:27 Whit Reaves, GLORIA is Primary Nurse. michael 01:37 No provider procedures requiring assistance completed. michael 01:39 intact, bleeding controlled, No redness/swelling at site. Pressure dressing applied. michael Administered Medications: No medications were administered Outcome: 00:58 Discharge ordered by . pkl 01:38 Discharged to home ambulatory. michael 01:38 Condition: stable 01:38 Discharge instructions given to patient, family. 01:39 Patient left the ED. michael Signatures: Dispatcher [employer] Bhavin Calvo MD MD pkMariajose Baldwin MyKena mw2 Whit Reaves, Waleska Glaser RN, RN RN vc1
--- NOTE | 2021-07-20 00:59 | EDPHYS ---
Physician Documentation [facility] Name: Casey Lyons Age: 85 yrs Sex: Female : 1935 Arrival Date: 07/19/2021 Time: 23:36 Bed 13 Private MD: Gurdeep Koehler V ED Physician Bhavin Newell HPI: 07/20 00:07 This 85 yrs old Female presents to ER via Ambulatory with complaints of PROBLEM WITH pkl HAND. 00:07 The patient presents to the emergency department with paresthesias of the left hand. pkl Onset: The symptoms/episode began/occurred just prior to arrival, 45 minute(s) ago. Associated signs and symptoms: The patient has no apparent associated signs or symptoms. Patient complained of numbness let hand tonight. Said she had the same symptoms last Friday and was transferred to [facility] for ischemic stroke.. Historical: - Allergies: 00:01 No Known Allergies; vc1 - Home Meds: 01:27 Apriso 0.375 gram Oral cp24 4 caps once daily [Active]; atorvastatin 80 mg Oral tab 1 michael tab once daily [Active]; carvedilol 25 mg Oral tab 1 tab 2 times per day [Active]; duloxetine 30 mg Oral cpDR 1 cap once daily [Active]; Fish Oil Oral [Active]; Integra Plus Oral 1 cap once daily [Active]; levothyroxine 25 mcg tab 1 tab once daily [Active]; losartan 100 mg Oral tab 1 tab once daily [Active]; PreserVision AREDS 2 Oral [Active]; Protonix 40 mg Oral grps 1 packet once daily [Active]; spironolactone 25 mg Oral tab 1 tab once daily [Active]; torsemide 10 mg Oral tab 1 tab once daily [Active]; - PMHx: 00:01 Cellulitis of Leg; Cerebrovascular accident; Crohn's; High Cholesterol; Hypertension; vc1 - PSHx: 00:01 None; vc1 - Immunization history:: Adult Immunizations up to date, Client reports having NOT received the Covid vaccine. - Social history:: Smoking status: Patient denies any tobacco usage or history of. ROS: 00:07 Eyes: Negative for injury, pain, redness, and discharge, ENT: Negative for injury, pkl pain, and discharge, Neck: Negative for injury, pain, and swelling, Cardiovascular: Negative for chest pain, palpitations, and edema, Respiratory: Negative for shortness of breath, cough, wheezing, and pleuritic chest pain, Abdomen/GI: Negative for abdominal pain, nausea, vomiting, diarrhea, and constipation, Back: Negative for injury and pain, : Negative for injury, bleeding, discharge, and swelling. 00:07 MS/extremity: Positive for paresthesias, of the left hand. 00:07 Skin: Negative for rash. 00:07 Neuro: Positive for numbness, of the left hand, Negative for altered mental status, loss of consciousness. Exam: 00:07 Head/Face: Normocephalic, atraumatic. Eyes: Pupils equal round and reactive to light, pkl extra-ocular motions intact. Lids and lashes normal. Conjunctiva and sclera are non-icteric and not injected. Cornea within normal limits. Periorbital areas with no swelling, redness, or edema. ENT: Nares patent. No nasal discharge, no septal abnormalities noted. Tympanic membranes are normal and external auditory canals are clear. Oropharynx with no redness, swelling, or masses, exudates, or evidence of obstruction, uvula midline. Mucous membranes moist. Neck: Trachea midline, no thyromegaly or masses palpated, and no cervical lymphadenopathy. Supple, full range of motion without nuchal rigidity, or vertebral point tenderness. No Meningismus. Chest/axilla: Normal chest wall appearance and motion. Nontender with no deformity. No lesions are appreciated. Cardiovascular: Regular rate and rhythm with a normal S1 and S2. No gallops, murmurs, or rubs. Normal PMI, no JVD. No pulse deficits. Respiratory: Lungs have equal breath sounds bilaterally, clear to auscultation and percussion. No rales, rhonchi or wheezes noted. No increased work of breathing, no retractions or nasal flaring. Abdomen/GI: Soft, non-tender, with normal bowel sounds. No distension or tympany. No guarding or rebound. No evidence of tenderness throughout. Back: No spinal tenderness. No costovertebral tenderness. Full range of motion. Skin: Warm, dry with normal turgor. Normal color with no rashes, no lesions, and no evidence of cellulitis. 00:07 Musculoskeletal/extremity: Extremities: grossly normal except: noted in the left hand: numbness left hand. Vital Signs: 07/19 23:59 BP 129 / 66; Pulse 71; Resp 18; Temp 97.6(TE); Pulse Ox 100% on R/A; Weight 63.5 kg; vc1 Pain 0/10; 07/20 00:04 BP 126 / 66; Pulse 71; Resp 18; Temp 97.6(TE); Pulse Ox 100% on R/A; vc1 00:30 BP 139 / 42; Pulse 66; Resp 18; Temp 98.5; Pulse Ox 100% on R/A; michael 01:27 BP 141 / 64; Pulse 65; Resp 18; Temp 98.5; Pulse Ox 100% ; michael MDM: 07/19 23:49 Patient medically screened. pkl 07/20 00:39 Data reviewed: vital signs, nurses notes, lab test result(s), EKG, radiologic studies, pkl CT scan. 00:51 ED course: Talked to Dr. Koehler, will see patient in his office in the morning.. ED pkl course: Discussed CT scan result, consultation with Dr. Shipman with patient and daughter. Also notified patient and daughter that Dr. Koehler will see patient in his office in the morning. Patient and daughter understood instructions. To return if symptoms are worse. 07/20 00:06 Order name: Basic Metabolic Panel; Complete Time: 01:03 pkl 07/20 00:06 Order name: CBC with Diff; Complete Time: 01:03 pkl 07/20 00:06 Order name: Protime (+inr); Complete Time: 01:03 pkl 07/20 00:06 Order name: Ptt, Activated; Complete Time: 01: pkl 07/20 00:06 Order name: CT Stroke Brain w/o Contrast pkl 07/20 00:06 Order name: Stroke CXR 1 View pkl 07/20 00:06 Order name: EKG; Complete Time: 00:07 pkl 07/20 00:06 Order name: Accucheck pkl 07/20 00:06 Order name: Cardiac monitoring pkl 07/20 00:06 Order name: EKG - Nurse/Tech pkl 07/20 00:06 Order name: IV Saline Lock pkl 07/20 00:06 Order name: Labs collected and sent pkl 07/20 00:06 Order name: NPO pkl 07/20 00:06 Order name: O2 Per Protocol pkl 07/20 00:06 Order name: O2 Sat Monitoring pkl 07/20 00:06 Order name: Stroke Swallow Screen pkl Administered Medications: No medications were administered Disposition Summary: 07/20/21 00:58 Discharge Ordered Location: Home pkl Problem: new pkl Symptoms: have improved pkl Condition: Stable pkl Diagnosis - Numbness left hand pkl Followup: pkl - With: Gurdeep Koehler MD - When: Today - Reason: Re-evaluation by your physician Forms: - Medication Reconciliation Form pkl - Thank You Letter pkl - Antibiotic Education pkl - Prescription Opioid Use pkl Signatures: Dispatcher [employer] Bhavin Calvo MD MD pkl Whit Reaves, RN RN Waleska Schwarz RN RN vc1
[2021-07-20 01:58] VITALS: O2SAT 100
[2021-07-20 02:01] VITALS: TEMP 98.5
[2021-07-20 02:02] VITALS: BP 141/64
--- NOTE | 2021-07-20 09:04 | RAD REPORT ---
EXAM DESCRIPTION: RAD - Chest Single View - 07/20/2021 12:27 am CLINICAL HISTORY: stroke symptoms Chest pain. COMPARISON: Chest Single View dated 07/14/2021; Chest Single View dated 02/05/2019; Chest Pa And Lat ( 2 Views) dated 05/19/2018; Chest Single View dated 02/14/2018 FINDINGS: Portable technique limits examination quality. The lungs are grossly clear. The heart is upper limit of normal in size. No displaced fractures. IMPRESSION: No acute intrathoracic process suspected.
--- NOTE | 2021-07-20 13:41 | RAD REPORT ---
EXAM DESCRIPTION: Ct Stroke Brain Wo Cont CLINICAL HISTORY: Numbness left hand COMPARISON: CT head July 14, 2021 TECHNIQUE: Multiple helical axial tomographic images were obtained of the head without intravenous c ontrast. This exam was performed according to our departmental dose-optimization program, which inclu chalo automated exposure control, adjustment of the mA and/or kV according to patient size and/or use o f iterative reconstruction technique. FINDINGS: Mild generalized brain volume loss is demonstrated. There is mild dilatation of the latera l and third ventricles which appears unchanged. Patchy hypoattenuation in the cerebral white matter a gain demonstrated suggesting chronic microvascular ischemic changes. There is no acute intracranial h emorrhage. No mass. No midline shift. Ayers-white matter differentiation is maintained. Paranasal sinuses are clear. Mastoid air cells and middle ear spaces are clear. Changes of lens repla cement noted. Osseous structures are unremarkable. Surrounding soft tissues are unremarkable. IMPRESSION: 1. No acute intracranial hemorrhage. 2. Findings again suggestive of chronic microvascular ischemic changes. Mild dilatation of the late ral and third ventricles appears unchanged and may be related to volume loss. THIS REPORT CONTAINS FINDINGS THAT MAY BE CRITICAL TO PATIENT CARE: The findings were verbally discus sed via telephone conference with Dr. Newell by Dr. Gabriel at 0038 hours central time on July 20, 2021. The results were acknowledged and understood. Electronically signed by: Lico Gabriel MD 07/20/2021 12:39 AM WORLD DESIGNER Due to temporary technical issues with the PACS/Fluency reporting system, reports are being signed by the in house radiologists without review as a courtesy to insure prompt reporting. The interpreting radiologist is fully responsible for the content of the report.
== END 2021-07-20 01:39 | disposition home or self-care (01) ==
LOC: ER 23:33
DX: R20.0 Anesthesia of skin (principal); I10 Essential (primary) hypertension; Z86.73 Personal history of transient ischemic attack (TIA), and cerebral infarction without residual deficits
CPT/HCPCS: 36415; 70450; 71045; 80048; 85025; 85610; 85730; 93005; 99284

== ENCOUNTER 2022-06-20 15:41 | Emergency (ER) | payer OTHER, MEDICARE ==
--- OUTSIDE RECORDS SUMMARY | 2022-06-20 15:50 | XMS REPORT | Continuity of Care Document ---
:1935 Author Organization [facility] t Address [address] [place] [address] Dr. Mc[address] [place] [address] Care Team Providers Name Role Phone JACK KAILA CAMP Primary Care Physician Unavailabl e KAM OLIVO Attending Clinician Unavailable KAM OLIVO Attending Clinician Unavailable VARSHA BERNAL Attending Clinician Unavailable Varsha Bernal MD Attending Clinician [phone] Doctor Unassigned, [place] Attending Clinician Unavailable JENNIE ALAMO Attending Clinician Unavailable Orlando Barreto MD Attending Clinician [phone] Dasia Almanzar MD Attending Clinician [phone] Jennie Alamo MD Attending Clinician ORLANDO BARRETO Attending Clinician Unavailable BRIGID GERARD Attending Clinician Unavailable XANDER HAYES Attending Clinician Unavailable VARSHA BERNAL Admitting Clinician Unavailable ORLANDO BARRETO Admitting Clinician Unavailable TANVIR LARSON Admitting Clinician Unavailable Payers Payer Name Policy Type Policy Number Effective Date Expiration Date S sharla MEDICARE PART A \\T\\ [id number] 2002 B 00:00:00 [facility] [id number] 2020 MEDICARE SUPPLEMENT 00:00:00 MEDICARE A B [id number] 2002 00:00:00 [facility] [id number] 2021 HEALTHCARE 00:00:00 Problems Condition Condition Condition Status Onset Resolution Last Treating Co mments Source Name Details Category Date Date Treatment Clinician Date Carotid Carotid Disease Active Overview: Univ ers stenosis stenosis 09-27 [facility] ity of 00:00: g of this [place] 00 note Medical might be Branch different from the original. plaque buildup CKD CKD Disease Active Univers (chronic (chronic 09-27 ity of kidney kidney 00:00: [place] disease) disease) 00 Medica l stage 3, stage 3, Branch GFR 30-59 GFR 30-59 ml/min ml/min Coronary Coronary Disease Active Overview: Un [place] artery artery 09-27 Form[facility] ity of disease disease 00:00: g of this [place] involving involving 00 note Medi valerie quechan quechan might be Branch coronary coronary different artery of artery of from the quechan quechan original. heart heart stent without without placed angina angina pectoris pectoris DVT (deep DVT (deep Disease Active Overview: [facility] venous venous 09-27 Form[facility] ity of thrombosis thrombosis 00:00: g of this [place] ) ) 00 note Medical might be Branch different from the original. in legs, multiple Hearing Hearing Disease Active Overview: Univ ers loss loss 09-27 Form[facility] ity of 00:00: g of this [place] 00 note Medical might be Branch different from the original. Dr. Roy, has hearing aids bilateral History of History of Disease Active Overview : Univers cataract cataract 09-27 Formatt[facility] ity of 00:00: g of this [place] 00 note Medical might be Branch different from the original. bilateral HTN HTN Disease Active Univers (hypertens (hypertens 09-27 it y of ion), ion), 00:00: [place] benign benign 00 Medical Branch Macular Macular Disease Active Overview: Univ ers degenerati degenerati 09-27 Formattin ity of on on 00:00: g of this note Medical might be Branch different from the original. follows with Dr. Pham Memory Memory Disease Active Overview: Univer s loss loss 09-27 Formattin ity of 00:00: g of this 00 note Medical might be Branch different from the original. short term, chronic microvasc ular ischemic changes on MRI brain, [facility] [place] PAD PAD Disease Active Overview: Univer s (periphera (periphera 09-27 Formattin ity of l artery l artery 00:00: g of this Jose Elias as disease) disease) 00 note Medica l might be Branch different from the original. legs requiring fem-pop bypass bilateral ly Stroke Stroke Disease Active Univers 09-27 ity of 00:00: [place] 00 Medical Branch Ischemic Ischemic Disease [facility] 00[facility]: Medical 00 Center Hyperchole Hyperchole Disease Active M ethodi steremia steremia 02-06 00:00: Hospita 00 l Coronary Coronary Disease Active Metho di artery artery 02-06 st disease disease 00:00: Hospita 00 l Stage 3 Stage 3 Disease Active Methodi chronic chronic 02-06 st kidney kidney 00:00: Hospita disease disease 00 l Acute Acute Disease Active [facility]i blood loss blood loss 02-06 st anemia anemia 00:00: Hospita 00 l Hypertensi Hypertensi Disease Active M ethodi on on 02-06 00:00: Hospita 00 l Coronary Coronary Disease Active Overview: Me thodi artery artery 8-[address] disease disease 00:00: g of this Hospi ta involving involving 00 note l quechan quechan might be heart with heart with different angina angina from the pectoris pectoris original. Added automatic ally from request for surgery [id number] Peripheral Peripheral Disease Active Overview : Methodi arterial arterial 8-[address] disease disease 00:00: g of this Hospi ta 00 note l might be different from the original. Added automatic ally from request for surgery [id number] Hyperlipem Hyperlipem Disease Active [facility] Received Received Disease [facility] tissue tissue [facility]26 [facility] plasminoge plasminoge 00:00: Me dical n n 00 Center activator activator (t-PA) (t-PA) less than less than 24 hours 24 hours prior to prior to arrival arrival Acute Acute Disease Active [facility] ischemic ischemic 8[facility]25 [facility] stroke stroke 00:00: Medical 00 [place] Ulcer of Ulcer of Disease Active [facility] great toe, great toe, 6-15 [facility] k[facility] right, right, 00:00: Medical with with 00 Center unspecifie unspecifie d severity d severity S/P S/P Disease Active [facility] femoral-po femoral-po 6-13 [facility] kes pliteal pliteal 00:00: Medical bypass bypass 00 Center surgery surgery Gout Gout Disease Active [facility] 00[facility] Medical 00 [place] Acute Acute Disease Active [facility] post-opera post-opera 13 [facility] tive pain tive pain 00:00: Medi valerie 00 Center Essential Essential Disease Active [facility] hypertensi hypertensi 12-03 [facility] kes on with on with 00:00: Medical goal blood goal blood 00 Ce nter pressure pressure less than less than 140/90 140/90 NSTEMI NSTEMI Disease Active [facility] (non-ST (non[facility]ST 12[facility]01 [facility] elevated elevated 00:00: Medica l myocardial myocardial 00 Ce nter infarction infarction ) ) Hypertensi Hypertensi Disease Active [facility] on on 12-01 [facility] 00:[facility]: Medical 00 [place] BRIONNA (acute BRIONNA (acute Disease Active [facility] kidney kidney 12-01 [facility] injury) injury) 00:00: Medical 00 [place] 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 12-01 [facility] 00:00: Medical 00 [place] Insomnia Insomnia Disease [facility]: Medical 00 [place] Neuropathy Neuropathy Disease Active [facility] 00:[facility]: Medical 00 [place] Physical Physical Disease Active [facility] deconditio deconditio 11 [facility] kes estefany estefany 00:00: Medical 00 [place] Cognitive Cognitive Disease Active [facility] impairment impairment 6-11 [facility] kes 00:00: Medical 00 [place] Protein Protein Disease Active [facility] calorie calorie 6-11 [facility] malnutriti malnutriti 00:00: Me dical on on 00 Center Obesity Obesity Disease Active [facility] 6[facility]10 [facility] 00:[facility]: Medical 00 [place] PVD PVD Disease Active [facility] (periphera (periphera 6-08 [facility] k[facility] l vascular l vascular 00:00: Me dical disease) disease) 00 Center Essential Essential Disease Active [facility] hypertensi hypertensi 6-08 [facility]le kes on on 00:00: Medical 00 Center Hypothyroi Hypothyroi Disease Active [facility] d d 6-08 [facility] 00:[facility]: Medical 00 Center Coronary Coronary Disease Active [facility] artery artery 08 [facility] disease disease 00:00: Medical involving involving 00 Cent er quechan quechan coronary coronary artery of artery of quechan quechan heart with heart with angina angina pectoris pectoris Chest pain Chest pain Disease Active [facility] 6[facility] 00:[facility]: Medical 00 Center Hypertensi Hypertensi Disease Active [facility] ve ve 6-08 [facility] emergency emergency 00:00: [facility] valerie 00 Center Allergies, Adverse Reactions, Alerts Allergy Allergy Status Severity Reaction(s) Onset Inactive Treating Comm ents Source Name Type Date Date Clinician NO KNOWN Drug Active Univers ALLERGIE Class ity of S [facility] NO KNOWN Allergy Active [facility]GIE kes [facility] Social History Social Habit Start Date Stop Date Quantity Comments Source History of tobacco Cigarette Smoker [facility] History SDMD [facility] Alcohol Frequency Medical Center History SDOH [facility] Alcohol Std Drinks Medica l Center History SDMD [facility] Alcohol Binge Medical Daph[address] ter Exposure to 2022-02-08 2022-02-18 Not sure University SARS-CoV-2 (event) 00:00:00 15:59:00 [facility] Alcohol intake 2018-02-19 2018-02-19 [facility]er [facility] Medical Center (finding) History SDOH 2015-11-29 2015-11-29 NONE LAST [address] [facility] Alcohol Comment 00:00:00 00:00:00 WEEKS Medical C enter Cigarettes smoked 2015-11-29 2015-11-29 [facility] current (pack per 00:00:00 00:00:00 Medical Center day) - Reported Cigarette 2015-11-29 2015-11-[address] [facility] pack-years 00:00:00 00:00:00 [facility] Tobacco use and 2015-11-29 2015-11-29 Never used [facility] exposure 00:00:00 00:00:00 [facility] Sex Ass[birth year] At [birth year] [facility] 00:00:00 00:00:00 [facility] Smoking Status Start Date Stop Date Source Smokes tobacco daily 2021-09-27 00:00:00 [facility] Ex-smoker 2019-02-11 00:00:00 2019-02-11 00:00:00 [facility] Medications Ordered Filled Start Stop Current Ordering Indication Dosage Frequency Signature Comments Components Source Medication Medication Date Date Medication? Clinician (SIG) Name Name mesalamine 2021-06 Yes [id number] 2.4g Take 2 U nivers 1.2 gram EC 0-31 tablets by it y of tablet 00:00: mouth in [place] the Medical morning. Branch mesalamine 2021-06 Yes [id number] 2.4g Take 2 U nivers 1.2 gram EC 0-31 tablets by it y of tablet 00:00: mouth in [place] the Medical morning. Branch amLODIPine 2021-06 Yes [id number] 10mg Take 1 U nivers 10 mg 0-28 tablet by ity of tablet 00:00: mouth in [place] the Medical morning. Branch furosemide 2021-06 Yes [id number] 20mg Take 1 Univers 20 mg 0-28 tablet by ity of tablet 00:00: mouth in [place] the Medical morning. Branch amLODIPine 2021-06 Yes [id number] 10mg Take 1 U nivers 10 mg 0-28 tablet by ity of tablet 00:00: mouth in [place] the Medical morning. Branch furosemide 2021-06 Yes [id number] 20mg Take 1 Univers 20 mg 0-28 tablet by ity of tablet 00:00: mouth in [place] the Medical morning. Branch amLODIPine 2021-06 Yes [id number] 10mg Take 1 U nivers 10 mg 0-28 tablet by ity of tablet 00:00: mouth in [place] 00 the Medical morning. Branch furosemide 2021-1 Yes [id number] 20mg Take 1 Univers 20 mg 0-28 tablet by ity of tablet 00:00: mouth in [place] 00 the Medical morning. Branch amLODIPine 2-0 Yes [id number] 10mg Take 1 U nivers 10 mg 8-08 tablet by ity of tablet 00:00: mouth in [place] 00 the Medical morning. Branch amLODIPine 2022-0 Yes [id number] 10mg Take 1 U nivers 10 mg 8-08 tablet by ity of tablet 00:00: mouth in [place] 00 the Medical morning. Branch amLODIPine 2-0 Yes [id number] 10mg Take 1 U nivers 10 mg 8-08 tablet by ity of tablet 00:00: mouth in [place] 00 the Medical morning. Branch amLODIPine 2-0 Yes [id number] 10mg Take 1 U nivers 10 mg 8-08 tablet by ity of tablet 00:00: mouth in [place] 00 the Medical morning. Branch amLODIPine 2-0 Yes [id number] 10mg Take 1 U nivers 10 mg 8-08 tablet by ity of tablet 00:00: mouth in [place] 00 the Medical morning. Branch amLODIPine 2-0 Yes [id number] 10mg Take 1 U nivers 10 mg 8-08 tablet by ity of tablet 00:00: mouth in [place] 00 the Medical morning. Branch amLODIPine 2-0 Yes [id number] 10mg Take 1 U nivers 10 mg 8-08 tablet by ity of tablet 00:00: mouth in [place] 00 the Medical morning. Branch amLODIPine 2-0 Yes [id number] 10mg Take 1 U nivers 10 mg 8-08 tablet by ity of tablet 00:00: mouth in [place] 00 the Medical morning. Branch amLODIPine 2-0 Yes [id number] 10mg Take 1 U nivers 10 mg 8-08 tablet by ity of tablet 00:00: mouth in [place] 00 the Medical morning. Branch amLODIPine 2022-0 Yes [id number] 10mg Take 1 U nivers 10 mg 8-08 tablet by ity of tablet 00:00: mouth in [place] 00 the Medical morning. Branch amLODIPine 2022-0 2022- No [id number] 10mg Take 1 Univers 10 mg 8-08 10-28 tablet by ity of tablet 00:00: 00:00 mouth in [place] 00 :00 the Medical morning. Branch amLODIPine 2021-0 2021- No [id number] 10mg Take 1 Univers 10 mg 01-28 10-28 tablet by ity of tablet 00:00: 00:00 mouth in [place] 00 :00 the Medical morning. Branch memantine 5 2021-0 Yes 5mg Take 5 mg U nivers mg tablet 8-01 by mouth ity of 15:13: daily. [address] memantine 5 2021-0 Yes 5mg Take 5 mg U nivers mg tablet 8-01 by mouth ity of 15:13: daily. [address] memantine 5 2021-0 Yes 5mg Take 5 mg U nivers mg tablet 8-01 by mouth ity of 15:13: daily. [address] memantine 5 2021-0 Yes 5mg Take 5 mg U nivers mg tablet 8-01 by mouth ity of 15:13: daily. [address] memantine 5 2021-0 Yes 5mg Take 5 mg U nivers mg tablet 8-01 by mouth ity of 15:13: daily. [address] memantine 5 2021-0 Yes 5mg Take 5 mg U nivers mg tablet 8-01 by mouth ity of 15:13: daily. [address] memantine 5 2021-0 Yes 5mg Take 5 mg U nivers mg tablet 8-01 by mouth ity of 15:13: daily. [address] memantine 5 2021-0 Yes 5mg Take 5 mg U nivers mg tablet 8-01 by mouth ity of 15:13: daily. [address] memantine 5 2021-0 Yes 5mg Take 5 mg U nivers mg tablet 8-01 by mouth ity of 15:13: daily. [address] memantine 5 2021-0 Yes 5mg Take 5 mg U nivers mg tablet 8-01 by mouth ity of 15:13: daily. [address] memantine 5 2021-0 Yes 5mg Take 5 mg U nivers mg tablet 8-01 by mouth ity of 15:13: daily. [address] memantine 5 2021-0 Yes 5mg Take 5 mg U nivers mg tablet 8-01 by mouth ity of 15:13: daily. [address] memantine 5 2021-0 Yes 5mg Take 5 mg U nivers mg tablet 8-01 by mouth ity of 15:13: daily. [place] [address] Medical Branch memantine 5 2021-0 Yes 5mg Take 5 mg U nivers mg tablet 01-21 by mouth ity of 15:13: daily. [place] 17 Medical Branch mesalamine 2021-0 Yes [id number] 2.4g Take 2 U nivers 1.2 gram EC 7-05 tablets by it y of tablet 00:00: mouth [place] 00 daily. Medical Branch mesalamine 2021-0 Yes [id number] 2.4g Take 2 U nivers 1.2 gram EC 7-05 tablets by it y of tablet 00:00: mouth [place] 00 daily. Medical Branch mesalamine 2021-0 Yes [id number] 2.4g Take 2 U nivers 1.2 gram EC 7-05 tablets by it y of tablet 00:00: mouth [place] 00 daily. Medical Branch mesalamine 2021-0 Yes [id number] 2.4g Take 2 U nivers 1.2 gram EC 7-05 tablets by it y of tablet 00:00: mouth [place] 00 daily. Medical Branch mesalamine 2021-0 Yes [id number] 2.4g Take 2 U nivers 1.2 gram EC 7-05 tablets by it y of tablet 00:00: mouth [place] 00 daily. Medical Branch mesalamine 2021-0 Yes [id number] 2.4g Take 2 U nivers 1.2 gram EC 7-05 tablets by it y of tablet 00:00: mouth [place] 00 daily. Medical Branch mesalamine 2021-0 Yes [id number] 2.4g Take 2 U nivers 1.2 gram EC 7-05 tablets by it y of tablet 00:00: mouth [place] 00 daily. Medical Branch mesalamine 2021-0 Yes [id number] 2.4g Take 2 U nivers 1.2 gram EC 7-05 tablets by it y of tablet 00:00: mouth [place] 00 daily. Medical Branch mesalamine 2021-0 Yes [id number] 2.4g Take 2 U nivers 1.2 gram EC 7-05 tablets by it y of tablet 00:00: mouth [place] 00 daily. Medical Branch mesalamine 2021-0 Yes [id number] 2.4g Take 2 U nivers 1.2 gram EC 7-05 tablets by it y of tablet 00:00: mouth [place] 00 daily. Medical Branch mesalamine 2022-0 Yes [id number] 2.4g Take 2 U nivers 1.2 gram EC 7-05 tablets by it y of tablet 00:00: mouth [place] 00 daily. Medical Branch mesalamine 2021- No [id number] 2.4g Take 2 Univers 1.2 gram EC 7-05 10-31 tablets by i ty of tablet 00:00: 00:00 mouth [place] 00 :00 daily. Medical Branch mesalamine 2021- No [id number] 2.4g Take 2 Univers 1.2 gram EC 7-05 10-31 tablets by i ty of tablet 00:00: 00:00 mouth [place] 00 :00 daily. Medical Branch valsartan Yes [id number] 320mg Take 1 Univers 320 mg 6-13 tablet by ity of tablet 00:00: mouth [place] 00 daily. Medical Branch potassium Yes [id number] 10meq Take 1 Univers chloride 10 6-13 tablet by ity of mEq CR 00:00: mouth [place] tablet 00 daily. Medical Branch levothyroxi Yes [id number] 75ug Take 1 Univers ne 75 mcg 6-13 tablet by ity o f tablet 00:00: mouth [place] 00 every Medical morning. Branch furosemide Yes [id number] 20mg Take 1 Univers 20 mg 6-13 tablet by ity of tablet 00:00: mouth [place] 00 daily. Medical Branch famotidine Yes [id number] 20mg Take 1 Univers 20 mg 6-13 tablet by ity of tablet 00:00: mouth [place] 00 daily. Medical Branch DULoxetine Yes [id number] 30mg Take 1 U nivers 30 mg 6-13 capsule by ity of capsule 00:00: mouth [place] 00 daily. Medical Branch atorvastati Yes [id number] 80mg Take 1 Univers n 80 mg 6-13 tablet by ity of tablet 00:00: mouth [place] 00 daily. Medical Branch apixaban Yes [id number] 2.5mg Take 1 Univer s (ELIQUIS) 6-13 tablet by ity o f 2.5 mg 00:00: mouth 2 [place] tablet 00 (two) Medical times Branch daily. Indication s: history of stroke valsartan Yes [id number] 320mg Take 1 Univers 320 mg 6-13 tablet by ity of tablet 00:00: mouth [place] 00 daily. Medical Branch potassium Yes [id number] 10meq Take 1 Univers chloride 10 6-13 tablet by ity of mEq CR 00:00: mouth [place] tablet 00 daily. Medical Branch levothyroxi Yes [id number] 75ug Take 1 Univers ne 75 mcg 6-13 tablet by ity o f tablet 00:00: mouth [place] 00 every Medical morning. Branch furosemide Yes [id number] 20mg Take 1 Univers 20 mg 6-13 tablet by ity of tablet 00:00: mouth [place] 00 daily. Medical Branch famotidine Yes [id number] 20mg Take 1 Univers 20 mg 6-13 tablet by ity of tablet 00:00: mouth [place] 00 daily. Medical Branch DULoxetine Yes [id number] 30mg Take 1 U nivers 30 mg 6-13 capsule by ity of capsule 00:00: mouth [place] 00 daily. Medical Branch atorvastati Yes [id number] 80mg Take 1 Univers n 80 mg 6-13 tablet by ity of tablet 00:00: mouth [place] 00 daily. Medical Branch apixaban Yes [id number] 2.5mg Take 1 Univer s (ELIQUIS) 6-13 tablet by ity o f 2.5 mg 00:00: mouth 2 [place] tablet 00 (two) Medical times Branch daily. Indication s: history of stroke valsartan Yes [id number] 320mg Take 1 Univers 320 mg 6-13 tablet by ity of tablet 00:00: mouth [place] 00 daily. Medical Branch potassium Yes [id number] 10meq Take 1 Univers chloride 10 6-13 tablet by ity of mEq CR 00:00: mouth [place] tablet 00 daily. Medical Branch levothyroxi Yes [id number] 75ug Take 1 Univers ne 75 mcg 6-13 tablet by ity o f tablet 00:00: mouth [place] 00 every Medical morning. Branch furosemide Yes [id number] 20mg Take 1 Univers 20 mg 6-13 tablet by ity of tablet 00:00: mouth [place] 00 daily. Medical Branch famotidine Yes [id number] 20mg Take 1 Univers 20 mg 6-13 tablet by ity of tablet 00:00: mouth [place] 00 daily. Medical Branch DULoxetine Yes [id number] 30mg Take 1 U nivers 30 mg 6-13 capsule by ity of capsule 00:00: mouth [place] 00 daily. Medical Branch atorvastati Yes [id number] 80mg Take 1 Univers n 80 mg 6-13 tablet by ity of tablet 00:00: mouth [place] 00 daily. Medical Branch apixaban Yes [id number] 2.5mg Take 1 Univer s (ELIQUIS) 6-13 tablet by ity o f 2.5 mg 00:00: mouth 2 [place] tablet 00 (two) Medical times Branch daily. Indication s: history of stroke valsartan Yes [id number] 320mg Take 1 Univers 320 mg 6-13 tablet by ity of tablet 00:00: mouth [place] 00 daily. Medical Branch potassium Yes [id number] 10meq Take 1 Univers chloride 10 6-13 tablet by ity of mEq CR 00:00: mouth [place] tablet 00 daily. Medical Branch levothyroxi Yes [id number] 75ug Take 1 Univers ne 75 mcg 6-13 tablet by ity o f tablet 00:00: mouth [place] 00 every Medical morning. Branch furosemide Yes [id number] 20mg Take 1 Univers 20 mg 6-13 tablet by ity of tablet 00:00: mouth [place] 00 daily. Medical Branch famotidine Yes [id number] 20mg Take 1 Univers 20 mg 6-13 tablet by ity of tablet 00:00: mouth [place] 00 daily. Medical Branch DULoxetine Yes [id number] 30mg Take 1 U nivers 30 mg 6-13 capsule by ity of capsule 00:00: mouth [place] 00 daily. Medical Branch atorvastati Yes [id number] 80mg Take 1 Univers n 80 mg 6-13 tablet by ity of tablet 00:00: mouth [place] 00 daily. Medical Branch apixaban Yes [id number] 2.5mg Take 1 Univer s (ELIQUIS) 6-13 tablet by ity o f 2.5 mg 00:00: mouth 2 [place] tablet 00 (two) Medical times Branch daily. Indication s: history of stroke valsartan Yes [id number] 320mg Take 1 Univers 320 mg 6-13 tablet by ity of tablet 00:00: mouth [place] 00 daily. Medical Branch potassium Yes [id number] 10meq Take 1 Univers chloride 10 6-13 tablet by ity of mEq CR 00:00: mouth [place] tablet 00 daily. Medical Branch levothyroxi Yes [id number] 75ug Take 1 Univers ne 75 mcg 6-13 tablet by ity o f tablet 00:00: mouth [place] 00 every Medical morning. Branch furosemide Yes [id number] 20mg Take 1 Univers 20 mg 6-13 tablet by ity of tablet 00:00: mouth [place] 00 daily. Medical Branch famotidine Yes [id number] 20mg Take 1 Univers 20 mg 6-13 tablet by ity of tablet 00:00: mouth [place] 00 daily. Medical Branch DULoxetine Yes [id number] 30mg Take 1 U nivers 30 mg 6-13 capsule by ity of capsule 00:00: mouth [place] 00 daily. Medical Branch atorvastati Yes [id number] 80mg Take 1 Univers n 80 mg 6-13 tablet by ity of tablet 00:00: mouth [place] 00 daily. Medical Branch apixaban Yes [id number] 2.5mg Take 1 Univer s (ELIQUIS) 6-13 tablet by ity o f 2.5 mg 00:00: mouth 2 [place] tablet 00 (two) Medical times Branch daily. Indication s: history of stroke valsartan Yes [id number] 320mg Take 1 Univers 320 mg 6-13 tablet by ity of tablet 00:00: mouth [place] 00 daily. Medical Branch potassium Yes [id number] 10meq Take 1 Univers chloride 10 6-13 tablet by ity of mEq CR 00:00: mouth [place] tablet 00 daily. Medical Branch levothyroxi Yes [id number] 75ug Take 1 Univers ne 75 mcg 6-13 tablet by ity o f tablet 00:00: mouth [place] 00 every Medical morning. Branch furosemide Yes [id number] 20mg Take 1 Univers 20 mg 6-13 tablet by ity of tablet 00:00: mouth [place] 00 daily. Medical Branch famotidine Yes [id number] 20mg Take 1 Univers 20 mg 6-13 tablet by ity of tablet 00:00: mouth [place] 00 daily. Medical Branch DULoxetine Yes [id number] 30mg Take 1 U nivers 30 mg 6-13 capsule by ity of capsule 00:00: mouth [place] 00 daily. Medical Branch atorvastati Yes [id number] 80mg Take 1 Univers n 80 mg 6-13 tablet by ity of tablet 00:00: mouth [place] 00 daily. Medical Branch apixaban Yes [id number] 2.5mg Take 1 Univer s (ELIQUIS) 6-13 tablet by ity o f 2.5 mg 00:00: mouth 2 [place] tablet 00 (two) Medical times Branch daily. Indication s: history of stroke valsartan Yes [id number] 320mg Take 1 Univers 320 mg 6-13 tablet by ity of tablet 00:00: mouth [place] 00 daily. Medical Branch potassium Yes [id number] 10meq Take 1 Univers chloride 10 6-13 tablet by ity of mEq CR 00:00: mouth [place] tablet 00 daily. Medical Branch levothyroxi Yes [id number] 75ug Take 1 Univers ne 75 mcg 6-13 tablet by ity o f tablet 00:00: mouth [place] 00 every Medical morning. Branch furosemide Yes [id number] 20mg Take 1 Univers 20 mg 6-13 tablet by ity of tablet 00:00: mouth [place] 00 daily. Medical Branch famotidine Yes [id number] 20mg Take 1 [facility] 20 mg 6-13 tablet by ity of tablet 00:00: mouth [place] 00 daily. Medical Branch DULoxetine Yes [id number] 30mg Take 1 U nivers 30 mg 6-13 capsule by ity of capsule 00:00: mouth [place] 00 daily. Medical Branch atorvastati Yes [id number] 80mg Take 1 Univers n 80 mg 6-13 tablet by ity of tablet 00:00: mouth [place] 00 daily. Medical Branch apixaban Yes [id number] 2.5mg Take 1 Univer s (ELIQUIS) 6-13 tablet by ity o f 2.5 mg 00:00: mouth 2 [place] tablet 00 (two) Medical times Branch daily. Indication s: history of stroke valsartan Yes [id number] 320mg Take 1 [facility] 320 mg 6-13 tablet by ity of tablet 00:00: mouth [place] 00 daily. Medical Branch potassium Yes [id number] 10meq Take 1 [facility] chloride 10 6-13 tablet by ity of mEq CR 00:00: mouth [place] tablet 00 daily. Medical Branch levothyroxi Yes [id number] 75ug Take 1 Univers ne 75 mcg 6-13 tablet by ity o f tablet 00:00: mouth [place] 00 every Medical morning. Branch furosemide Yes [id number] 20mg Take 1 Univers 20 mg 6-13 tablet by ity of tablet 00:00: mouth [place] 00 daily. Medical Branch famotidine Yes [id number] 20mg Take 1 [facility] 20 mg 6-13 tablet by ity of tablet 00:00: mouth [place] 00 daily. Medical Branch DULoxetine Yes [id number] 30mg Take 1 U nivers 30 mg 6-13 capsule by ity of capsule 00:00: mouth [place] 00 daily. Medical Branch atorvastati Yes [id number] 80mg Take 1 Univers n 80 mg 6-13 tablet by ity of tablet 00:00: mouth [place] 00 daily. Medical Branch apixaban Yes [id number] 2.5mg Take 1 Univer s (ELIQUIS) 6-13 tablet by ity o f 2.5 mg 00:00: mouth 2 [place] tablet 00 (two) Medical times Branch daily. Indication s: history of stroke valsartan Yes [id number] 320mg Take 1 [facility] 320 mg 6-13 tablet by ity of tablet 00:00: mouth [place] 00 daily. Medical Branch potassium Yes [id number] 10meq Take 1 Univers chloride 10 6-13 tablet by ity of mEq CR 00:00: mouth [place] tablet 00 daily. Medical Branch levothyroxi Yes [id number] 75ug Take 1 Univers ne 75 mcg 6-13 tablet by ity o f tablet 00:00: mouth [place] 00 every Medical morning. Branch furosemide Yes [id number] 20mg Take 1 [facility] 20 mg 6-13 tablet by ity of tablet 00:00: mouth [place] 00 daily. Medical Branch famotidine Yes [id number] 20mg Take 1 [facility] 20 mg 6-13 tablet by ity of tablet 00:00: mouth [place] 00 daily. Medical Branch DULoxetine Yes [id number] 30mg Take 1 U nivers 30 mg 6-13 capsule by ity of capsule 00:00: mouth [place] 00 daily. Medical Branch atorvastati Yes [id number] 80mg Take 1 Univers n 80 mg 6-13 tablet by ity of tablet 00:00: mouth [place] 00 daily. Medical Branch apixaban Yes [id number] 2.5mg Take 1 Univer s (ELIQUIS) 6-13 tablet by ity o f 2.5 mg 00:00: mouth 2 [place] tablet 00 (two) Medical times Branch daily. Indication s: history of stroke valsartan Yes [id number] 320mg Take 1 [facility] 320 mg 6-13 tablet by ity of tablet 00:00: mouth [place] 00 daily. Medical Branch potassium Yes [id number] 10meq Take 1 [facility] chloride 10 6-13 tablet by ity of mEq CR 00:00: mouth [place] tablet 00 daily. Medical Branch levothyroxi Yes [id number] 75ug Take 1 Univers ne 75 mcg 6-13 tablet by ity o f tablet 00:00: mouth [place] 00 every Medical morning. Branch furosemide Yes [id number] 20mg Take 1 [facility] 20 mg 6-13 tablet by ity of tablet 00:00: mouth [place] 00 daily. Medical Branch famotidine Yes [id number] 20mg Take 1 [facility] 20 mg 6-13 tablet by ity of tablet 00:00: mouth [place] 00 daily. Medical Branch DULoxetine Yes [id number] 30mg Take 1 U nivers 30 mg 6-13 capsule by ity of capsule 00:00: mouth [place] 00 daily. Medical Branch atorvastati Yes [id number] 80mg Take 1 Univers n 80 mg 6-13 tablet by ity of tablet 00:00: mouth [place] 00 daily. Medical Branch apixaban Yes [id number] 2.5mg Take 1 Univer s (ELIQUIS) 6-13 tablet by ity o f 2.5 mg 00:00: mouth 2 [place] tablet 00 (two) Medical times Branch daily. Indication s: history of stroke valsartan Yes [id number] 320mg Take 1 [facility] 320 mg 6-13 tablet by ity of tablet 00:00: mouth [place] 00 daily. Medical Branch potassium Yes [id number] 10meq Take 1 [facility] chloride 10 6-13 tablet by ity of mEq CR 00:00: mouth [place] tablet 00 daily. Medical Branch levothyroxi Yes [id number] 75ug Take 1 [facility] ne 75 mcg 6-13 tablet by ity o f tablet 00:00: mouth [place] 00 every Medical morning. Branch famotidine Yes [id number] 20mg Take 1 [facility] 20 mg 6-13 tablet by ity of tablet 00:00: mouth [place] 00 daily. Medical Branch DULoxetine Yes [id number] 30mg Take 1 U nivers 30 mg 6-13 capsule by ity of capsule 00:00: mouth [place] 00 daily. Medical Branch atorvastati Yes [id number] 80mg Take 1 [facility] n 80 mg 6-13 tablet by ity of tablet 00:00: mouth [place] 00 daily. Medical Branch apixaban Yes [id number] 2.5mg Take 1 Univer s (ELIQUIS) 6-13 tablet by ity o f 2.5 mg 00:00: mouth 2 [place] tablet 00 (two) Medical times Branch daily. Indication s: history of stroke valsartan Yes [id number] 320mg Take 1 [facility] 320 mg 6-13 tablet by ity of tablet 00:00: mouth [place] 00 daily. Medical Branch potassium Yes [id number] 10meq Take 1 [facility] chloride 10 6-13 tablet by ity of mEq CR 00:00: mouth [place] tablet 00 daily. Medical Branch levothyroxi Yes [id number] 75ug Take 1 [facility] ne 75 mcg 6-13 tablet by ity o f tablet 00:00: mouth [place] 00 every Medical morning. Branch famotidine Yes [id number] 20mg Take 1 [facility] 20 mg 6-13 tablet by ity of tablet 00:00: mouth [place] 00 daily. Medical Branch DULoxetine Yes [id number] 30mg Take 1 U nivers 30 mg 6-13 capsule by ity of capsule 00:00: mouth [place] 00 daily. Medical Branch atorvastati Yes [id number] 80mg Take 1 Univers n 80 mg 6-13 tablet by ity of tablet 00:00: mouth [place] 00 daily. Medical Branch apixaban Yes [id number] 2.5mg Take 1 Univer s (ELIQUIS) 6-13 tablet by ity o f 2.5 mg 00:00: mouth 2 [place] tablet 00 (two) Medical times Branch daily. Indication s: history of stroke valsartan Yes [id number] 320mg Take 1 [facility] 320 mg 6-13 tablet by ity of tablet 00:00: mouth [place] 00 daily. Medical Branch potassium Yes [id number] 10meq Take 1 [facility] chloride 10 6-13 tablet by ity of mEq CR 00:00: mouth [place] tablet 00 daily. Medical Branch levothyroxi Yes [id number] 75ug Take 1 [facility] ne 75 mcg 6-13 tablet by ity o f tablet 00:00: mouth [place] 00 every Medical morning. Branch famotidine Yes [id number] 20mg Take 1 [facility] 20 mg 6-13 tablet by ity of tablet 00:00: mouth [place] 00 daily. Medical Branch DULoxetine Yes [id number] 30mg Take 1 U nivers 30 mg 6-13 capsule by ity of capsule 00:00: mouth [place] 00 daily. Medical Branch atorvastati Yes [id number] 80mg Take 1 [facility] n 80 mg 6-13 tablet by ity of tablet 00:00: mouth [place] 00 daily. Medical Branch apixaban Yes [id number] 2.5mg Take 1 Univer s (ELIQUIS) 6-13 tablet by ity o f 2.5 mg 00:00: mouth 2 [place] tablet 00 (two) Medical times Branch daily. Indication s: history of stroke valsartan Yes [id number] 320mg Take 1 [facility] 320 mg 6-13 tablet by ity of tablet 00:00: mouth [place] 00 daily. Medical Branch potassium Yes [id number] 10meq Take 1 [facility] chloride 10 6-13 tablet by ity of mEq CR 00:00: mouth [place] tablet 00 daily. Medical Branch levothyroxi Yes [id number] 75ug Take 1 [facility] ne 75 mcg 6-13 tablet by ity o f tablet 00:00: mouth [place] 00 every Medical morning. Branch famotidine Yes [id number] 20mg Take 1 [facility] 20 mg 6-13 tablet by ity of tablet 00:00: mouth [place] 00 daily. Medical Branch DULoxetine Yes [id number] 30mg Take 1 U nivers 30 mg 6-13 capsule by ity of capsule 00:00: mouth [place] 00 daily. Medical Branch atorvastati Yes [id number] 80mg Take 1 [facility] n 80 mg 6-13 tablet by ity of tablet 00:00: mouth [place] 00 daily. Medical Branch apixaban Yes [id number] 2.5mg Take 1 Univer s (ELIQUIS) 6-13 tablet by ity o f 2.5 mg 00:00: mouth 2 [place] tablet 00 (two) Medical times Branch daily. Indication s: history of stroke furosemide 2021- No [id number] 20mg Take 1 [facility] 20 mg 6-13 10-28 tablet by ity of tablet 00:00: 00:00 mouth [place] 00 :00 daily. Medical Branch furosemide 2021- No [id number] 20mg Take 1 [facility] 20 mg 6-13 10-28 tablet by ity of tablet 00:00: 00:00 mouth [place] 00 :00 daily. Medical Branch aspirin 81 Yes 81mg QD Take [address] [facility] EC 07-18 [facility] tablet 17:11: daily. [address] levothyroxi Yes 75ug Take [address] [facility] ne 1-26 mcg [facility] (SYNTHROID, 17:11: mouth Medic al LEVOTHROID) 33 Every Center 75 MCG morning on tablet an empty stomach. multivitami Yes 1{tbl} QD Take [address] [facility] per - tablet by [facility] tablet 17:11: mouth Medical 33 daily. [place] desloratadi Yes 5mg QD Take [address] ne -26 [facility] (CLARINEX) 17:11: daily. Medic al 5 mg tablet 33 Center polyethylen Yes 17g QD Take [address] e glycol - by [facility] (GLYCOLAX) 17:11: daily. Medic al 17 gram 33 Center packet ondansetron Yes 4mg Take [address] (ZOFRAN-ODT - by mouth Luke s ) 4 MG 17:11: every 8 Medical disintegrat 33 (eight) Cente r ing tablet hours as needed for Nausea. torsemide Yes 20mg Take [address] (DEMADEX) 07-18 [facility] 20 MG 17:11: as needed. Medica l tablet 33 Center cholecalcif Yes 2000U QD Take 2,[address] elan, 1-26 Units by [facility] vitamin D3, 17:11: mouth Medic al 2,000 unit 33 daily. Center Tab calcium Yes 600mg QD Take 600 [facility] carbonate 1-26 mg [facility] (OS-VALERIE) 17:11: mouth Medical 600 mg 33 daily. Center calcium (1,500 mg) Tab cyanocobala Yes 1000ug QD Take 1,[address] min 1-26 mcg by [facility] (VITAMIN 17:11: mouth Medical B-12) 1000 33 daily. Center MCG tablet clopidogreL 2020-06- No 75mg QD Take [address] (PLAVIX) 75 0-06 10-06 tablet (75 [facility] mg tablet 00:00: 23:59 mg total) Me dical 00 :00 by mouth Center daily. DULoxetine 2020-06 No 30mg QD Take [address] (CYMBALTA) 0-06 10-06 capsule [facility] 30 MG 00:00: 23:59 (30 mg Medical capsule 00 :00 total) by Center mouth daily. atorvastati 2020-06- No 80mg QD Take [address] n (LIPITOR) 0-05 10-05 tablet (80 L [facility] 80 MG 00:00: 23:59 mg total) Medica l tablet 00 :00 by mouth Center nightly. carvediloL 2020-06- No 25mg Q.5D Take [address] (COREG) 25 0-05 10-05 tablet (25 Richelle kes MG tablet 00:00: 23:59 mg total) Me dical 00 :00 by mouth 2 Center (two) times daily. melatonin 2020-06 No 10mg QD Take [address] 10 mg Tab 005 07-18 [facility] 00:00: 00:00 nightly. Medical 00 :00 Center pantoprazol Yes 40mg QD Take 40 mg Methodi e 9-[address] (PROTONIX) 15:13: daily. Hospi ta 40 MG EC 25 l tablet rivaroxaban Yes 15mg QD Take 15 mg Methodi (XARELTO) 9-[address] 15 mg 15:13: daily. Hospita tablet 25 l atorvastati Yes 80mg QD Take 80 mg Methodi n (LIPITOR) 9-[address] 80 MG 15:13: daily. Hospita tablet 25 l cyanocobala Yes 1000ug QD Take 1,000 Methodi min 9-[address] (VITAMIN 15:13: mouth Hospita B-12) 1000 25 daily. l MCG tablet vitamin E Yes 400U QD Take 400 Meth cristal 400 UNIT 9-[address] capsule 15:13: mouth Hospita 25 daily. l cholecalcif Yes 2000U QD Take 2,000 Methodi elan, 9-[address] vitamin D3, 15:13: mouth Hospi ta (VITAMIN 25 daily. l D3) 2,000 unit capsule capsule DULoxetine Yes 30mg QD Take 30 mg M ethodi (CYMBALTA) 9-[address] 30 MG 15:13: daily. Hospita capsule 25 l mesalamine Yes 375mg QD Take 375 Me thodi (APRISO) 9-[address] 0.375 gram 15:13: mouth Hospit a 24 hr 25 daily. l capsule gabapentin Yes 100mg Q.5D Take 100 Me thodi (NEURONTIN) 9-[address] 100 mg 15:13: mouth 2 Hospita capsule 25 (two) l times a day. traMADol Yes 50mg Q6H Take 50 mg Met hodi (ULTRAM) 50 9-[address] mg tablet 15:13: every 6 Hospi ta 25 (six) l hours as needed for moderate pain. Vital Signs Vital Name Observation Time Observation [...] 162.6 cm WEIGHT 2021-03-16 23:49:00 65.8 kg Systolic blood 2021-07-18 15:28:00 160 mm[Hg] [facility] Diastolic blood 2021-07-18 15:28:00 71 mm[Hg] [facility] Heart rate 2021-07-18 15:28:00 68 /min [facility] Body temperature 2021-07-18 15:28:00 36.22 Adela [facility] Respiratory rate 2021-07-18 15:28:00 18 /min [facility] Oxygen saturation in 2021-07-18 15:28:00 98 /min [facility] Arterial blood by Medical Ce nter Pulse oximetry Body weight 2021-07-18 08:13:00 58.3 kg [facility] BMI 2021-07-18 08:13:00 22.77 kg/m2 [facility] Body height 2021-07-16 09:55:00 160 cm [facility] Procedures Procedure Date / Time Performing Clinician Source Performed DEXA PERIPHERAL 2022-04-08 18:40:16 Varsha Bernal [facility] (FOREARM) A Medical Branch DEXA AXIAL (HIP AND 2022-04-08 18:40:16 Varsha Bernal [facility] SPINE) A Medical Branch REFERRAL- 2022-03-28 05:01:00 [facility]igned, [facility]ONSE Name Medical Branch PHYSICIAN CERTIFICATION 2022-03-19 05:01:00 Doctor Unassigned, N o [facility] STATEMENT Name Medical Branch EXTERNAL PROVIDER 2022-03-05 05:01:00 Doctor Unassigned, No [facility] RECORDS Name Medical Branch REFERRAL- 2022-02-11 05:01:00 [facility]igned, [facility] REQUEST/RESPONSE Name Medical Branch ARTERIAL (FLORECITA'S W/ 2021-07-18 14:44:00 Tala Zamorano [facility] DOPPLER) ONLY Center CAROTID DOPPLER 2021-07-18 14:44:00 Asia Kidd [facility] BILATERAL Center ARTERIAL DOPPLER LEGS 2021-07-17 15:30:00 Dasia Almanzar [facility] BILATERAL [facility] CBC W/PLT COUNT & AUTO 2021-07-17 04:11[facility]00 [facility] MAGNESIUM 2021-07-17 04:11:00 [facility] 2021-07-17 04:11[facility]00 [facility] W/[facility]T [facility] & AUTO 2021-07-17 04:11:00 [facility] MR BRAIN WITHOUT IV 2021-07-16 14:25:00 [facility] CONTRAST [facility] CBC W/PLT COUNT & AUTO 2021-07-16 04:23:00 [facility] Center MAGNESIUM 2021-07-16 04:23:00 [facility] 2021-07-16 04:23[facility]ON, TIBC, % SAT. 2021-07-16 04:23:00 [facility] (WITHOUT FERRITIN) [facility] FERRITIN 2021-07-16 04:23:[address] [facility] B-TYPE NATRIURETIC 2021-07-16 04:23:00 Rosaura [facility] FACTOR (BNP) [facility] CBC W/PLT COUNT & AUTO 2021-07-16 04:23:[address] [facility]IN [facility] IV 2021-07-15 20:30:00 Hari Batista [facility] CONTRAST [facility] HIGH SENSITIVITY 2021-07-15 17:16:00 Jessica Medeiros [facility] TROPONIN I [place] URINALYSIS W/ REFLEX 2021-07-15 08:15:00 [facility] URINE CULTURE Center LIPID PANEL 2021-07-15 06:39:00 [facility] COMPREHENSIVE METABOLIC 2021-07-15 06:39:00 [facility] PANEL Center MAGNESIUM 2021-07-15 06:39:00 [facility] PHOSPHORUS 2021-07-15 06:39:00 [facility] HEMOGLOBIN A1C 2021-07-15 04:24:00 [facility] PROTHROMBIN TIME/INR 2021-07-15 04:24:00 [facility] APTT 2021-07-15 04:24:00 [facility] CBC W/PLT COUNT & AUTO 2021-07-15 04:24:00 [facility] TSH/FREE T4 IF INDICATED 2021-07-15 04:24:00 [facility] T4, FREE 2021-07-15 04:24:00 [facility] CBC W/PLT COUNT & AUTO 2021-07-15 04:24:00 [facility] EKG-SCANNED 2021-07-15 00:00:[address] [facility] Plan of Care Planned Activity Planned Date Details Comments Source Future Scheduled 2022-06-08 COVID-19 VACCINE (#1) Me [facility] Test 17:32:49 [code = COVID-19 VACCINE (#1)] Future Scheduled 2022-06-08 SHINGLES VACCINES ([facility] 17:32:49 of 2) [code = SHINGLES VACCINES (1 of 2)] Future Scheduled 2022-06-08 65+ [facility]OCOCCAL [facility] Test 17:32:49 VACCINE (1 - PCV) [code = 65+ PNEUMOCOCCAL VACCINE (1 - PCV)] Future Scheduled 2022-06-08 INFLUENZA VACCINE Method ist Hospital Test 17:32:49 [code = INFLUENZA VACCINE] Future Scheduled 2022-02-21 INFLUENZA VACCINE (#1[facility] Test 00:00:00 [code = INFLUENZA Medical Ce nter VACCINE (#1)] Future Scheduled 2021-06-23 FALLS RISK SCREENING [facility] Test 00:00:00 [code = FALLS RISK Medical C enter SCREENING] Future Scheduled 2003-07-[address] [facility] Test 00:00:00 WELLNESS (YEAR 2 or Medical Center FIRST YEAR if no IPPE) [code = MEDICARE ANNUAL WELLNESS (YEAR 2 or FIRST YEAR if no IPPE)] Future Scheduled 1987 SHINGLES VACCINES ([address] [facility] Test 00:00:00 of 2) [code = SHINGLES Medic al Center VACCINES (1 of 2)] Future Scheduled 1956 DTAP/TDAP/TD VACCINES [facility] Test 00:00:00 (1 - Tdap) [code = Medical C enter DTAP/TDAP/TD VACCINES (1 - Tdap)] Future Scheduled [address] [facility] Test 00:00:00 Counseling and Medical Cente r Screening (12+) [code = Tobacco Cessation Counseling and Screening (12+)] Future Scheduled 1943 PNEUMOCOCCAL 65+ YRS [facility] Test 00:00:00 (1 - PCV) [code = Medical Ce nter PNEUMOCOCCAL 65+ YRS (1 - PCV)] Future Scheduled 1938-02-09 COVID-19 VACCINE (#1) [facility] Test 00:00:00 [code = COVID-[address] VACCINE (#1)] Future Scheduled 1937 DXA SCAN [code = DXA [facility] Test 00:00:00 SCAN] Medical Center Encounters Start End Encounter Admission Attending Care Care Encounter Source Date/Time Date/Time Type Type Clinicians Facility Department ID 2022-12-10 2022-12-10 Outpatient MHIE [place] [id number] [facility]oria 13:00:00 13:00:00 16 westley Pepito 2022-06-28 2022-06-28 [id number] Univers 15:00:00 15:00:00 VARSHA gardiner [facility] 2022-06-10 2022-06-10 Outpatient MHIE PAWAN [id number] Memoria 13:00:00 13:00:00 15 westley Pepito 2022-05-06 2022-05-06 Telephone [facility] 1.2.840.114 [id number] [facility] 00:00:00 00:00:00 Varsha SALDANA [id number] ity of [facility] [id number] [phone] [facility] 044 [facility] 2022-04-24 2022-04-24 Outpatient MHIE IE [id number] Memoria 14:30:00 14:30:00 14 westley Beyer 2022-04-24 2022-04-24 Outpatient MHIE IE [id number] [facility] 14:30:00 14:30:00 14 westley Beyer 2022-04-19 2022-04-19 Refill [facility] 12.840.114 [id number] Univers 00:00:00 00:00:00 Varsha SALDANA 350.1.13.10 ity of [place] [id number] Ar dical NAL 231 [facility] 2022-04-18 2022-04-18 Telephone [facility] 12.840.114 [id number] Univers 00:00:00 00:00:00 Varsha SALDANA [id number] ity of [facility] [id number] [id number] Ar dical [facility] 044 [facility] 2022-04-10 2022-04-10 [facility] 1.2.840.114 [id number] Univers 00:00:00 00:00:00 Secure Msg Varsha SALDANA 350.1.13.10 [id number] [phone] [facility] 231 [facility] 2022-04-08 2022-04-08 [id number] Univers 12:50:09 23:59:00 VARSHA ity of [facility] 2022-04-08 2022-04-08 [facility] 1.2.840.114 [id number] Univers 12:50:09 23:59:00 Encounter Varsha SALDANA 350.1.13.10 [place] [id number] [facility] [address] [place] 2022-03-28 2022-03-28 Orders Doctor ALAN 1.2.840.114 [id number] Univers 00:00:00 00:00:00 Only Unassigned, ROSENDO 350.1.13.10 ity of [place] [facility] 4.2.7.2.686 Jose Elias as [id number] [facility] [address] [place] 2022-03-21 2022-03-21 Telephone [facility] 1.2.840.114 [id number] Univers 00:00:00 00:00:00 Varsha SALDANA 350.1.13.10 ity [place] [id number] [facility] 231 [facility] 2022-03-19 2022-03-19 Orders Doctor ALAN 1.2.840.114 [id number] Univers 00:00:00 00:00:00 Only Unassigned, ROSENDO 350.1.13.10 ity of [place] [facility] 4.2.7.2.686 [place] Elias as [id number] [address] 2022-03-05 2022-03-05 Orders Doctor ALAN 1.2.840.114 [id number] Univers 00:00:00 00:00:00 Only Unassigned, ROSENDO 350.1.13.10 ity of [place] [facility] 4.2.7.2.686 [place] Elias as [phone] [address] 2022-02-18 2022-02-18 [facility] [id number] Univers 15:40:00 16:54:42 VARSHA ity [facility] 2022-02-18 2022-02-18 Office [facility] 1.2.840.114 [id number] Univers 15:40:00 16:54:42 Visit Varsha SALDANA 350.1.13.10 [place] [phone] [address] 2022-02-18 2022-02-18 [facility] [id number] Univers 15:40:00 16:54:42 VARSHA ity [facility] 2022-02-18 2022-02-18 Telephone [facility] 1.2.840.114 [id number] Univers 00:00:00 00:00:00 Varsha LEWISTON 350.1.13.10 ity [place] [id number] [address] 2022-02-18 2022-02-18 Telephone [facility] 1.2.840.114 [id number] Univers 00:00:00 00:00:00 Varsha Kya [place] 350.1.13.10 it[place] [id number] [address] 2022-02-11 2022-02-11 Patient [facility] 1.2.840.114 [id number] Univers 00:00:00 00:00:00 Secure Msg Varsha A JOSHUATON 350.1.13.10 ity of [facility] 4[place]7.2.[place] [id number] Ar dic[address] 2022-02-11 2022-02-11 Orders Doctor ALAN 1.2.840.114 [id number] Univers 00:00:00 00:00:00 Only Unassigned, ROSENDO 350.1.13.10 ity of [place] [facility] 4.2.7.2.686 Jose Elias as [id number] [address] 2022-01-25 2022-01-25 Patient [facility] 1.2.840.114 [id number] Univers 00:00:00 00:00:00 Secure Msg Varsha SALDANA 350.1.13.10 [place] [id number] [address] 2022-01-22 2022-01-22 Orders Doctor ALAN 1.2.840.114 [id number] Univers 00:00:00 00:00:00 Only Unassigned, ROSENDO 350.1.13.10 ity of [place] [facility] 4.2.7.2.686 Jose Elias as [id number] [address] 2022-01-22 2022-01-22 Patient [facility] 1.2.840.114 [id number] Univers 00:00:00 00:00:00 Secure Msg Varsha SALDANA 350.1.13.10 [place] [id number] Ar dic[address] 2022-01-21 2022-01-21 Office Juanito [facility] 1.2.840.114 [id number] Univers 15:00:00 16:18:21 Visit Kam SALDANA 350.1.13.10 [place] [id number] Ar dic[address] 2022-01-21 2022-01-21 Outpatient R KAM OLIVO [facility] [id number] Univers 15:00:00 16:18:21 KAM OLIVO ity [facility] 2022-01-21 2022-01-21 Outpatient R KAM OLIVO [facility] [id number] Univers 15:00:00 15:00:00 KAM OLIVO ity [facility] 2022-01-10 2022-01-10 Outpatient MHIE MHIE [id number] [facility] 14:15:00 14:15:00 13 [facility] 2022-01-10 2022-01-10 Outpatient MHIE MHIE [id number] [facility] 14:15:00 14:15:00 13 [facility] 2022-01-10 2022-01-10 Orders Doctor ALAN 1.2.840.[id number] [place] [address] 00:00:00 00:00:00 Only Unassigned, ROSENDO 350.1.13.10 ity of [facility] 4.2.7.2.686 [place] Elias as [phone] [address] 2022-01-09 2022-01-09 Outpatient MHIE MHIE [id number] [facility]oria 13:15:00 13:15:00 12 [facility] 2022-01-09 2022-01-09 Outpatient MHIE MHIE [id number] [facility] 13:15:00 13:15:00 12 [facility] 2022-01-03 2022-01-03 Telephone [facility] 1.2.840.114 [id number] Univers 00:00:00 00:00:00 Varsha SALDANA 350.1.13.10 [place] [id number] Ar dical [facility] 044 [facility] 2021-12-27 2021-12-27 Telephone [facility] 1.2.840.114 [id number] Univers 00:00:00 00:00:00 Varsha SALDANA 350.1.13.10 [place] [phone] Ar dical NAL 231 [facility] 2021-12-21 2021-12-21 [facility] 1.2.840.114 [id number] Univers 00:00:00 00:00:00 Varsha Kya [place] 350.1.13.10 [place] [id number] [facility] 231 [facility] 2021-12-17 2021-12-17 Orders Dolores ALAN 1.2.840.114 [id number] Univers 00:00:00 00:00:00 Only Varshajason PURCELLY 350.1.13.10 ity of [facility] 4.2.7.2.686 [place] Elias as [id number] [address] 2021-12-11 2021-12-11 [facility] 1.2.840.114 [id number] Univers 00:00:00 00:00:00 Varsha SALDANA 350.1.13.10 [place] [id number] [address] 2021-12-11 2021-12-11 Telephone [facility] 1.2.840.114 [id number] Univers 00:00:00 00:00:00 Varsha LEWISTON 350.1.13.10 [place] [id number] [facility] 044 [facility] 2021-12-03 2021-12-04 [facility] [id number] Univers 15:00:00 08:35:47 VARSHA ity of [facility] 2021-12-03 2021-12-04 [facility] 1.2.840.114 [id number] Univers 15:00:00 08:35:47 Visit Varsha SALDANA 350.1.13.10 it[place] [phone] [address] 2021-12-03 2021-12-03 [facility] [id number] Univers 15:00:00 15:00:00 VARSHA ity [facility] 2021-12-03 2021-12-03 Outpatient R DOLORES [facility] [id number] Univers 15:00:00 15:00:00 VARSHA ity [facility] 2021-11-28 2021-11-28 Orders ALAN Bernal 1.2.840.114 [id number] Univers 00:00:00 00:00:00 Only Varsha Kya PURCELLY 350.1.13.10 ity of [facility] 4.2.7.2.686 Jose Elias as [phone] [address] 2021-11-27 2021-11-27 Telephone [facility] 1.2.840.114 [id number] Univers 00:00:00 00:00:00 Varsha LEW[place]ON 350.1.13.10 it[place] [phone] [address] 2021-11-23 2021-11-23 [facility] 1.2.840.114 [id number] Univers 00:00:00 00:00:00 Varsha [place]ON 350.1.13.10 [place] [id number] [address] 2021-11-15 2021-11-15 [facility] 1.2.840.114 [id number] Univers 00:00:00 00:00:00 Varsha Kya [place] 350.1.13.10 ity of [facility] [place] [phone] [address] 2021-10-13 2021-10-13 Orders Doctor PHILLIPS 1.2.840.114 [id number] Univers 00:00:00 00:00:00 Only Unassigned, ROSENDO 350.1.13.10 ity of [place] [facility] 4.2.7.2.686 Jose Elias as [phone] [address] 2021-10-10 2021-10-10 Outpatient MHIE MHIE [id number] Memoria 14:15:00 14:15:00 11 westley Beyer 2021-10-10 2021-10-10 Outpatient MHIE MHIE [id number] Memoria 14:15:00 14:15:00 11 westley Beyer 2021-10-03 2021-10-03 Telephone [facility] 1.2.840.114 [id number] [facility] 00:00:00 00:00:00 Varsha SALDANA 350.1.13.10 [place] [phone] [address] 2021-09-27 2021-09-27 [facility] [id number] Univers 10:00:00 12:08:09 VARSHA ity of [facility] 2021-09-27 2021-09-27 Office [facility] 1.2.840.114 [id number] [facility] 10:00:00 12:08:09 Visit Varsha SALDANA 350.1.13.10 [place] [id number] [address] 2021-09-27 2021-09-27 Telephone [facility] 1.2.840.114 [id number] [facility] 00:00:00 00:00:00 Varsha SALDANA 350.1.13.10 [place] [phone] [address] 2021-09-27 2021-09-27 Orders Doctor ALAN 1.2.840.114 [id number] Univers 00:00:00 00:00:00 Only Unassigned, ROSENDO 350.1.13.10 ity of [place] [facility] 4.2.7.2.686 Jose Elias as [phone] [address] 2021-08-28 2021-08-28 Outpatient MHIE MHIE [id number] Memoria 15:15:00 15:15:00 10 westley Pepito 2021-08-28 2021-08-28 Outpatient MHIE MHIE [id number] Memoria 15:15:00 15:15:00 10 westley Beyer 2021-08-08 2021-08-08 Outpatient MHIE MHIE [id number] Memoria 15:30:00 15:30:00 09 westley Beyer 2021-08-08 2021-08-08 Outpatient MHIE MHIE [id number] Memoria 15:30:00 15:30:00 09 westley Beyer 2021-07-15 2021-07-18 Inpatient ER CELY ALAMO Neuro ICU [id number] SLE 00:36:00 17:11:00 [facility] 2021-07-15 2021-07-18 [facility] [id number] 17:11:00 Encounter Dasia Almanzar [facility] 2021-07-15 2021-07-15 Travel [facility] [id number] [facility] 00:00:00 00:00:00 [facility] 2021-06-05 2021-06-05 Orders Doctor ALAN 1.2.840.114 [id number] Univers 00:00:00 00:00:00 Only Unassigned, ROSENDO 350.1.13.10 ity of [place] [facility] 4.2.7.2.686 Jose Elias as [phone] [place] [address] [place] 2021-03-16 2021-03-27 Inpatient ER CELY GERARD General Med [id number] [facility] 23:39:00 12:45:00 YASHASH 2019-08-19 2019-08-19 Outpatient MHIE MHIE [id number] Memoria 15:30:00 15:30:00 08 westley Beyer 2019-08-19 2019-08-19 Outpatient MHIE MHIE [id number] Memoria 15:30:00 15:30:00 08 westley Beyer 2019-01-12 2019-01-12 Outpatient MHIE MHIE [id number] Memoria 13:00:00 13:00:00 06 westley Beyer 2019-01-12 2019-01-12 Outpatient MHIE MHIE [id number] [facility]oria 13:00:00 13:00:00 07 l Pepito 2019-01-12 2019-01-12 Outpatient MHIE MHIE [id number] Memoria 13:00:00 13:00:00 06 l [place] 2019-01-12 2019-01-12 Outpatient MHIE MHIE [id number] Memoria 13:00:00 13:00:00 07 l [place] 2018-10-13 2018-10-13 Outpatient MHIE MHIE [id number] Memoria 15:15:00 15:15:00 05 l Pepito 2018-10-13 2018-10-13 Outpatient MHIE MHIE [id number] Memoria 15:15:00 15:15:00 05 l [place] 2018-09-01 2018-09-01 Outpatient MHIE MHIE [id number] Memoria 14:00:00 14:00:00 04 l [place] 2018-09-01 2018-09-01 Outpatient MHIE MHIE [id number] Memoria 14:00:00 14:00:00 04 l [place] 2018-05-29 2018-05-29 Outpatient MHIE MHIE [id number] Memoria 14:15:00 14:15:00 03 l [place] 2018-05-29 2018-05-29 Outpatient MHIE MHIE [id number] Memoria 14:15:00 14:15:00 03 l [place] 2018-04-16 2018-04-16 Outpatient MHIE MHIE [id number] Memoria 15:30:00 15:30:00 02 l [place] 2018-04-16 2018-04-16 Outpatient MHIE MHIE [id number] Memoria 15:30:00 15:30:00 02 l [place] 2018-04-02 2018-04-02 Outpatient MHIE MHIE [id number] [facility]oria 15:00:00 15:00:00 01 l [place] 2018-04-02 2018-04-02 Outpatient MHIE MHIE [id number] Memoria 15:00:00 15:00:00 01 l [place] 2018-03-31 2018-03-31 Outpatient MHIE MHIE [id number] Memoria 14:15:00 14:15:00 00 l [place] 2018-03-31 2018-03-31 Outpatient [facility] [id number] Memoria 14:15:00 14:15:00 00 westley Beyer Results Test Description Test Time Test Comments Results Result Sourc e Comments Carotid doppler 2021-07-[address] [facility] k[facility] bilateral 16:08:19 FractionSLE ECHO Medical [facility] FLORECITA's 2021-07-[address] [facility] Only(Ankle/Brachi 16:05:06 FractionSLE ECHO Medical al Index) [facility] Arterial doppler 2021-07-[address] [facility] legs bilateral 10:18:06 FractionSLE ECHO Med ical [facility] MAGNESIUM 2021-07-17 05:27:38 Test Item Value Reference Range Interpretation Comme nts MAGNESIUM (BEAKER) (test code = 627) 1.7 mg/dL 1.6-2.6 Inspector Rubber Stamp Die ID - CATRACHO [id number] 05:27:38 Test Item Value Reference Range Interpretation Comments PHOSPHORUS (BEAKER) (test code = 4.1 mg/dL 2.3-4.7 604) Inspector Rubber Stamp Die ID - CATRACHO MCBC W/PLT COUNT & AUTO [id number] 04:46:17 Test Item Value Reference Range Interpretation [...] (test code = 2801) MR, BRAIN, WITHOUT [id number] 15:06:00Post tpa imagingUnlisted Reason for Exam - Click Yes and Enter Reason Below->No [facility] CENTERName: MARCEL ZAZUETA JOSÉ MANUEL : 1935 Sex: FFINAL REPORT MR, BRAIN, WITHOUT CONTRAST INDICATION: Stroke, follow up TECHNIQUE: Multiplanar, multisequence MR imaging of the brain was obtained. COMPARISON: None FINDINGS:Punctate acute infarct of the right occipital lobe. No hemorrhagic conversion or significant mass effect. No abnormal susceptibility. Scattered T2/FLAIR hyperintense foci within the periventricular and subcortical white matter are nonspecific, however, statistically represent chronic microvascular ischemic changes. No hydrocephalus. Orbits are within normal limits. No obstructive paranasal sinus disease. IMPRESSION: Punctate acute infarct of the right occipital lobe. No hemorrhagic conversion or significant mass effect. Signed: Vani Denis MDReport Verified Date/Time: 07/16/2021 15:06:46 Reading Location: [address] Neuro Reading Room [id number] 05:34:46 Test Item Value Reference Range Interpretation Comments FERRITIN (BEAKER) (test code = 430.07 ng/mL 5.00-275.00 H 361) Inspector Rubber Stamp Die ID - DEWAYNE [id number] 05:18:22 Test Item Value Reference Range Interpretation Comments PHOSPHORUS (BEAKER) (test code = 4.3 mg/dL 2.3-4.7 604) Inspector Rubber Stamp Die ID - [id number] 05:18:21 Test Item Value Reference Range Interpretation Comments MAGNESIUM (BEAKER) (test code = 1.7 mg/dL 1.6-2.6 627) Inspector Rubber Stamp Die ID - JENNIRON, TIBC, % SAT. (WITHOUT FERRITIN)2021-07-16 05:14:16 Test Item Value Reference Range Interpretation Comments IRON (BEAKER) (test code = 547) 31.0 ug/dL 40.0-160.0 L TOTAL IRON BINDING CAPACITY 219 ug/dL 250-450 L (BEAKER) (test code = 769) IRON % SATURATION (2) (BEAKER) 14 % 20-55 L (test code = 2590) Inspector Rubber Stamp Die ID - DEWAYNE WB-TYPE NATRIURETIC FACTOR (BNP)2021-07-16 05:06:56 Test Item Value Reference Range Interpretation Comments B-TYPE NATRIURETIC PEPTIDE (BEAKER) 399 pg/mL 0-100 H (test code = 700) Inspector Rubber Stamp Die ID - DEWAYNE WCBC W/PLT COUNT & AUTO [id number] 04:43:46 Test Item Value Reference Range Interpretation [...] (test code = 2801) CT, BRAIN, WITHOUT [id number] 03:11:00Unlisted Reason for Exam - Click Yes and Enter Reason Below->YesUnlisted Reason for Exam->s/p tpa [facility] CENTERName: MARCEL ZAZUETA : 1935 Sex: FFINAL REPORT EXAM: CT, BRAIN, WITHOUT CONTRAST INDICATION: Stroke, follow ups/p tpaTECHNIQUE: CT images from skull base to vertex without IV contrast. This exam was performed according to the departmental dose optimization program which includes automated exposure control, adjustmentof the mA and/or kV according to the patient size, and/or use of an iterative reconstruction technique. COMPARISON: 03/19/2021 FINDINGS: Parenchyma: No evidence of acute infarction. Chronic small focal infarctions in the bilateral cerebellar hemispheres similar to prior. No hemorrhage. No mass or mass effect. Patchy and confluent areas of hypoattenuation are present in the cerebral white matter that are nonspecific but compatible with moderate chronic microvascular ischemic changes. Extra-axial Collection: None Ventricular System: Ex vacuo enlarged without hydrocephalus Osseous Structures: No acute osseous abnormality. Included Orbits: Prior bilateral lens surgery Paranasal Sinuses: Predominantly clear Tympanomastoid Cavities: Normal Other: Atherosclerotic intracranial calcifications are present. IMPRESSION: 1. No acute abnormality on CT head without contrast. 2. Small chronic cerebellar infarctions and moderate chronic microvascular ischemic changes similar to prior. If there is persistent clinical concern for intracranial pathology, MR examination is recommended for further characterization. Signed: Baldev Cai MDReport Verified Date/Time: 07/16/2021 03:11:31 High Sensitivity Troponin I ([facility]/Johnny Only)2021-07-15 18:04:16 Test Item Value Reference Range Interpretation Comments Troponin I HS (test 28 pg/ml See_Comment H [Automa vero code = 44931-2) message] The system which generated this result transmitted reference range : <=17. The reference range was not used to interpret this result as normal/abnormal . MAIN (test code = Inspector Rubber Stamp Die ID - MAIN) DBThe ASSISTANT BUYER STAT High Sensitivity Troponin-I results should be used in conjunction with other diagnostic information such as ECG, clinical observations and information, and patient symptoms to aid in the diagnosis of [place]. Lab Interpretation Abnormal (test code = 88618-0) [facility] TROPONIN [id number] 18:04:16 Test Item Value Reference Range Interpretation Comments HIGH SENSITIVITY 28 pg/ml See_Comment H [Automated message] TROPONIN I (test code = The system which 7529926) generated this result transmitted ref erence range: <=17. Th e reference range was not used to int erpret this result as normal/abnormal . Inspector Rubber Stamp Die ID - DBThe ASSISTANT BUYER STAT High Sensitivity Troponin-I results should be used in conjunctionwith other diagnostic information such as ECG, clinical observations and information, and patient symptoms to aid in the diagnosis of [place].Hemoglobin [id number] 09:45:23 Test Item Value Reference Range Interpretation Comments Hemoglobin A1C (test 5.2 % See_Comment [Autom ated code = 4549-2) message] The system which generated this result transmitted reference range : <=5.6%. The reference range was not used to interpret this result as normal/abnormal . MAIN (test code = MAIN) "The A1c is measured using a NGSP-certified method. HbA1c value equal to or greater than 6.5% as the diagnosis cutoff for diabetes. An HbA1c value of 5.7-6.4% indicates increased risk for diabetes (prediabetes)."O perator ID - ADM Lab Interpretation Normal (test code = 20538-5) [facility] Hospital[facility]MO[facility] [id number] 09:45:23 Test Item Value Reference Range Interpretation [...] 5.7- 6.4% indicates increased risk for diabetes (prediabetes)."Inspector Rubber Stamp Die ID - ADM Urinalysis w/Microscopic + Reflex to [id number] 09:16:27 Test Item Value Reference Range Interpretation Comments Color, UA (test code Light Yellow = 5778-6) Clarity, UA (test Hazy code = 5767-9) Specific [place], UA 1.013 1.001-1.035 (test code = 5811-5) pH, UA (test code = 6.0 5.0-8.0 5803-2) Protein, UA (test 50 mg/dL Negative A code = 16000-4) Glucose, UA (test Negative Negative code = 365) Ketones, UA (test Negative Negative code = 2514-8) Bilirubin, UA (test Negative Negative code = 51028-6) Blood, UA (test code Trace Negative A = 66021-0) Nitrite, UA (test Negative Negative code = 5802-4) Leukocytes, UA (test Small Negative A code = 5799-2) Urobilinogen, UA 0.2 mg/dL 0.2-1.0 (test code = 77611-7) RBC, UA (test code = 1 See_Comment [Autom ated 97604-4) message] The system which generated this result transmitted reference range : /HPF. The reference range was not used to interpret this result as normal/abnormal . WBC, UA (test code = 1 See_Comment [Autom ated 5821-4) message] The system which generated this result transmitted reference range : /HPF. The reference range was not used to interpret this result as normal/abnormal . Bacteria, UA (test Occasional code = 74824-4) Squam Epithel, UA 2 See_Comment [Automate d (test code = 68244-6) messag e] The system which generated this result transmitted reference range : /HPF. The reference range was not used to interpret this result as normal/abnormal . Hyaline Casts, UA 3 See_Comment [Automate d (test code = 84590-8) tomi e] The system which generated this result transmitted reference range : /LPF. The reference range was not used to interpret this result as normal/abnormal . Crystals, Urine (test Occasional code = 11824-3) Specimen Source (test code = 2795) MAIN (test code = MAIN) Inspector Rubber Stamp Die ID - [auto]Inspector Rubber Stamp Die ID - tech Lab Interpretation Abnormal (test code = 14371-4) [facility] W/ REFLEX URINE [id number] 09:16:27 Test Item Value Reference Range Interpretation [...] = 1521) SOURCE(BEAKER) (test code = 2795) Inspector Rubber Stamp Die ID - [auto]Inspector Rubber Stamp Die ID - techT4, [id number] 08:03:16 Test Item Value Reference Range Interpretation Comments Free T4 (test code = 1.08 ng/dL 0.70-1.48 3024-7) MAIN (test code = MAIN) Inspector Rubber Stamp Die LUPE Hodges Lab Interpretation (test Normal code = 42593-6) [facility] HospitalT4, [id number] 08:03:16 Test Item Value Reference Range Interpretation Comments FREE T4 (BEAKER) (test code = 655) 1.08 ng/dL 0.70-1.48 Inspector Rubber Stamp Die LUPE GRAHAMipid [id number] 07:14:54 Test Item Value Reference Range Interpretation Comments Triglycerides (test 60 mg/dL Specimen code = 2571-8) slightly hemolyzed Cholesterol (test 121 mg/dL Specimen code = 2093-3) slightly hemolyzed HDL (test code = 48 mg/dL 2084-9) LDL Calculated (test 61 mg/dL code = 86901-5) MAIN (test code = Triglyceride MAIN) Reference Range: Low Risk <150 Borderline 150-199 High Risk 200-499 Very High Risk >=500 Cholesterol Reference Range: Low Risk <200 Borderline 200-239 High Risk >240 HDL Cholesterol Reference Range: Low Risk >=60 High Risk <40 LDL Cholesterol Reference Range: Optimal <100 Near Optimal 100-129 Borderline 130-159 High 160-189 Very High >=190 Inspector Rubber Stamp Die LUPE Hodges [facility] HospitalLIPID [id number] 07:14:54 Test Item Value Reference Range Interpretation Comments TRIGLYCERIDES (BEAKER) 60 mg/dL Speci men slightly (test code = 540) hemolyzed CHOLESTEROL (BEAKER) 121 mg/dL Specime n slightly (test code = 631) hemolyzed HDL CHOLESTEROL (BEAKER) 48 mg/dL (test code = 976) LDL CHOLESTEROL 61 mg/dL CALCULATED (BEAKER) (test code = 633) Triglyceride Reference Range: Low Risk <150 Borderline 150-199 High Risk 200- 499 Very High Risk >=500Cholesterol Reference Range: Low Risk <200 Borderline 200-239 High Risk >240HDL Cholesterol Reference Range: Low Risk >=60 High Risk <40LDL Cholesterol Reference Range: Optimal <100 Near Optimal 100-129 Borderline 130-159 High 160-189 Very High >=190 Inspector Rubber Stamp Die ID - PIAYA LComprehensive metabolic [id number] 07:14:53 Test Item Value Reference Range Interpretation Comments Protein, Total (test 5.1 See_Comment L Specime n slightly code = 2885-2) hemolyzed [Automated message] The system which generated this result transmit vero reference range : 6.0 - 8.3 gm/dL . The reference range was not u sed to interpret th is result as normal/abnormal . Albumin (test code = 3.1 g/dL 3.5-5.0 L Specime n slightly 92246-9) hemolyzed Alkaline Phosphatase 69 U/L 40-150 (test code = 6768-6) Total Bilirubin (test 0.3 mg/dL 0.2-1.2 Specim en slightly code = 1975-2) hemolyzed Sodium (test code = 139 meq/L 445-535 2944-2) Potassium (test code 5.0 meq/L 3.5-5.1 Specime n slightly = 2823-3) hemolyzed Chloride (test code = 113 meq/L 98-107 H 2075-0) CO2 (test code = 20 meq/L 22-29 L 2028-9) BUN (test code = 27 mg/dL 7-21 H 3094-0) Creatinine (test code 1.52 mg/dL 0.57-1.25 H Specim en slightly = 2160-0) hemolyzed Glucose (test code = 85 mg/dL 70-105 2345-7) Calcium (test code = 8.4 mg/dL 8.4-10.2 79002-8) AST (test code = 16 U/L 5-34 Specimen sl ightly 1920-8) hemolyzed ALT (test code = 10 U/L 6-55 Specimen sl ightly 1742-6) hemolyzed EGFR (test code = 33 mL/min/1.73 [place] [address]-6) NOT ACCURATE CREATININE CLEARANCE IN PREDICTING GLOMERULAR FILTRATION RATE . ESTIMATED GFR I S NOT APPLICABLE FOR DIALYSIS PATIEN TS. MAIN (test code = MAIN) Inspector Rubber Stamp Die ID - PIAYA L Lab Interpretation Abnormal (test code = 17478-7) [id number] 07:14:53 Test Item Value Reference Range Interpretation Comments MAGNESIUM (BEAKER) 1.7 mg/dL 1.6-2.6 Specimen slightly (test code = 627) hemolyzed Inspector Rubber Stamp Die ID - SHAE [id number] 07:14:53 Test Item Value Reference Range Interpretation Comments PHOSPHORUS (BEAKER) 4.6 mg/dL 2.3-4.7 Specimen slightly (test code = 604) hemolyzed Inspector Rubber Stamp Die ID - SHAE LCOMPREHENSIVE METABOLIC [id number] 07:14:53 Test Item Value Reference Range Interpretation [...] hemolyzed EGFR (BEAKER) (test 33 mL/min/1.73 ESTIMA VERO GFR IS code = 1092) sq m NOT ACCURATE CREATININE CLEARANCE IN PREDICTING GLOMERULAR FILTRATION RATE . ESTIMATED GFR I S NOT APPLICABLE FOR DIALYSIS PATIEN TS. Inspector Rubber Stamp Die ID - SHAE LTSH/Free T4 If [id number] 05:50:44 Test Item Value Reference Range Interpretation Comments TSH (test code = 0.192 See_Comment L [Automated 11917-7) message] The system which generated this result transmit vero reference range : 0.350 - 4.940 uIU/mL. The reference range was not used to interpret this result as normal/abnormal . MAIN (test code = MAIN) Inspector Rubber Stamp Die ID - SHAE L Lab Interpretation Abnormal (test code = 26179-2) [facility] HospitalTSH/FREE T4 IF [id number] 05:50:44 Test Item Value Reference Range Interpretation Comments THYROID STIMULATING HORMONE 0.192 uIU/mL 0.350-4.940 L (BEAKER) (test code = 772) Inspector Rubber Stamp Die ID - SHAE [id number] 05:00:52 Test Item Value Reference Range Interpretation Comments PTT (test code = 20233-7) 28.4 See_Comment [ Automated message] The system whic h generated this result transmitted ref erence range: 22.5 - 3 6.0 seconds. The re ference range was not u sed to interpret this result as normal/abnor mal. Lab Interpretation (test Normal code = 32823-4) [facility] HospitalAPTT2022-01-23 05:00:52 Test Item Value Reference Range Interpretation Comments PARTIAL THROMBOPLASTIN TIME 28.4 seconds 22.5-36.0 (BEAKER) (test code = 760) Prothrombin time/[id number] 05:00:11 Test Item Value Reference Interpretation Comments Range Protime (test code = 13.2 See_Comment [Autom ated 5342-2) message] The system which generated this result transmitted reference range : 11.9 - 14.2 seconds. The reference range was not used to interpret this result as normal/abnormal . INR (test code = 1.02 See_Comment [Automated 8121-6) message] The system which generated this result transmitted reference range : <=5.90. The reference range was not used to interpret this result as normal/abnormal . MAIN (test code = RECOMMENDED MAIN) COUMADIN/WARFARIN INR THERAPY RANGESSTANDARD DOSE: 2.0 - 3.0 Includes: PROPHYLAXIS for venous thrombosis, systemic embolization; TREATMENT for venous thrombosis and/or pulmonary embolus.HIGH RISK: Target INR is 2.5-3.5 for patients with mechanical heart valves. Lab Interpretation Normal (test code = 83185-9) [facility] HospitalPROTHROMBIN TIME/[id number] 05:00:11 Test Item Value Reference Range Interpretation Comments PROTIME (BEAKER) 13.2 seconds 11.9-14.2 (test code = 759) INR (BEAKER) (test 1.02 See_Comment [Automat ed message] code = 370) The system [employer] generated this result transmitted ref erence range: <=5.90. The reference range was not used to int erpret this result as normal/abnormal . RECOMMENDED COUMADIN/WARFARIN INR THERAPY RANGESSTANDARD DOSE: 2.0 - 3.0 Includes: PROPHYLAXIS for venous thrombosis, systemic embolization; TREATMENT for venous thrombosis and/or pulmonary embolus.HIGH RISK: Target INR is 2.5-3.5 for patients with mechanical heart valves.CBC W/PLT COUNT & AUTO [id number] 04:41:21 Test Item Value Reference Range Interpretation [...] PERCENT (BEAKER) (test code = 2801) POCT-GLUCOSE [id number] 12:30:47 Test Item Value Reference Range Interpretation Comments POC-GLUCOSE METER 102 mg/dL 70-110 : TESTED A T [facility] 6720 (BEAKER) (test code = JAMIE NASCIMENTO ND, 1538) 82694: Inspector Rubber Stamp Die/Techni kaushik ID = [id number] for MOISES SETHI SARS-COV2/RT-PCR ([facility] REF LAB[facility])2021-03-27 11:03:20 Test Item Value Reference Range Interpretation Comments SARS-COV2/RT-PCR (test Negative Not Detected, Negative, code = 4162910) See external report for linked test SARS-COV-2 PERFORMING LAB [facility] BLANQUITA (test code = 7184875) Negative result for this test determines that SARS-CoV-2 RNA was not present in the specimen above the Limit of Detection (LOD). However, Negative results do not preclude SARS-CoV-2 infection and should not be used as the sole basis for treatment or patient management decisions. Negative results must be combined with clinical observations, patient history, and [...] 564(g) of the Act.Fact Sheet for Healthcare Pro viders:https://www.[employer]/sites/default/files/product/documents/Fact_Sheet_H R_Soogecwpu_Lhgm_RUAR-CvK-8.pdfFact Sheet for Healthcare Patients:https://www.[employer]/sites/default/files/product/docum ents/Hqsh_Sxlbr_Yonxwtdg_Hdgf_XVDB-IkR-4.pdfPerforming Laboratory:[facility], [place] [address]BXPI-BPPEWNL METER 2021-03-27 07:00:17 Test Item Value Reference Range Interpretation Comments POC-GLUCOSE METER 81 mg/dL 70-110 : TESTED Kya Bennett [facility] 6720 (BEAKER) (test code = JAMIE Cabrales [facility], 1538) [address]: Inspector Rubber Stamp Die/Techni kaushik ID = [id number] for Mavis Noonan [id number] 06:12:51 Test Item Value Reference Range Interpretation Comments MAGNESIUM (BEAKER) (test code = 1.9 mg/dL 1.6-2.6 627) Inspector Rubber Stamp Die ID - [id number] 06:12:51 Test Item Value Reference Range Interpretation Comments PHOSPHORUS (BEAKER) (test code = 3.1 mg/dL 2.3-4.7 604) Inspector Rubber Stamp Die ID - JRLCOMPREHENSIVE METABOLIC [id number] 06:12:50 Test Item Value Reference Range Interpretation [...] 347) EGFR (BEAKER) (test 39 mL/min/1.73 ESTIMA VERO GFR IS code = 1092) sq m NOT ACCURATE CREATININE CLEARANCE IN PREDICTING GLOMERULAR FILTRATION RATE . ESTIMATED GFR I S NOT APPLICABLE FOR DIALYSIS PATIEN TS. Inspector Rubber Stamp Die ID - JRLCBC W/PLT COUNT & AUTO [id number] 05:43:01 Test Item Value Reference Range Interpretation [...] PERCENT (BEAKER) (test code = 2801) POCT-GLUCOSE [id number] 00:38:16 Test Item Value Reference Range Interpretation Comments POC-GLUCOSE METER 85 mg/dL 70-110 : TESTED A T [facility] 6720 (BEAKER) (test code = [facility], 1538) 98463: Inspector Rubber Stamp Die/Techni kaushik ID = [id number] for Mavis Noonan POCT-GLUCOSE [id number] 17:30:06 Test Item Value Reference Range Interpretation Comments POC-GLUCOSE METER 118 mg/dL 70-110 H : TESTED A T [facility] 6720 (BEAKER) (test code = [facility], 1538) 00936: Inspector Rubber Stamp Die/Techni kaushik ID = [id number] for MOISES SETHI HEMOGLOBIN AND [id number] 17:20:47 Test Item Value Reference Range Interpretation Comments HEMOGLOBIN (BEAKER) (test code = 7.4 GM/DL 11.2-15.7 L 410) HEMATOCRIT (BEAKER) (test code = 23.1 % 34.1-44.9 L 411) Inspector Rubber Stamp Die ID - 6000POCT-GLUCOSE [id number] 12:41:00 Test Item Value Reference Range Interpretation Comments POC-GLUCOSE METER 105 mg/dL 70-110 : TESTED A T [facility] 6720 (BEAKER) (test code = [facility], 1538) 99665: Inspector Rubber Stamp Die/Techni kaushik ID = [id number] for DANAY MARQUEZ SARS-COV2/RT-PCR ([facility])2021-03-26 10:44:30 Test Item Value Reference Range Interpretation Comments SARS-COV2/RT-PCR (test Negative Not Detected, Negative, code = 8694222) See external report for linked test SARS-COV-2 PERFORMING LAB [facility] (test code = 8797055) Negative result for this test determines that SARS-CoV-2 RNA was not present in the specimen above the Limit of Detection (LOD). However, Negative results do not preclude SARS-CoV-2 infection and should not be used as the sole basis for treatment or patient management decisions. Negative results must be combined with clinical observations, patient history, and [...] justifying the authorization of the emergency use ofin vitro diagnostic tests for detection and/or diagnosis of COVID-19 is terminated under Section 564(b)(2) of the Act or the EUA is revoked under Section 564(g) of the Act.Fact Sheet for Healthcare Prov iders:https://www.[employer]/sites/default/files/product/documents/Fact_Sheet_HC _Oddkqxpou_Pupa_LKUB-VyQ-9.pdfFact Sheet for Healthcare Patients:https://www.[employer]/sites/default/files/product/docume nts/Ivdl_Xtbbr_Cdqjgsre_Zozv_GIUE-SrL-7.pdfPerforming Laboratory:[place] [address] [address], [place] [id number] 06:44:05 Test Item Value Reference Range Interpretation Comments MAGNESIUM (BEAKER) (test code = 1.9 mg/dL 1.6-2.6 627) Inspector Rubber Stamp Die ID Nakita BUCHANAN [id number] 06:44:05 Test Item Value Reference Range Interpretation Comments PHOSPHORUS (BEAKER) (test code = 2.7 mg/dL 2.3-4.7 604) Inspector Rubber Stamp Die ID Nakita BUCHANAN WCOMPREHENSIVE METABOLIC [id number] 06:44:04 Test Item Value Reference Range Interpretation [...] 347) EGFR (BEAKER) (test 46 mL/min/1.73 ESTIMA VERO GFR IS code = 1092) sq m NOT ACCURATE CREATININE CLEARANCE IN PREDICTING GLOMERULAR FILTRATION RATE . ESTIMATED GFR I S NOT APPLICABLE FOR DIALYSIS PATIEN TS. Inspector Rubber Stamp Die ID - DEWAYNE WCBC W/PLT COUNT & AUTO [id number] 06:33:22 Test Item Value Reference Range Interpretation [...] PERCENT (BEAKER) (test code = 2801) POCT-GLUCOSE [id number] 06:18:41 Test Item Value Reference Range Interpretation Comments POC-GLUCOSE METER 99 mg/dL 70-110 : TESTED Kya Bennett [facility] 6720 (BEAKER) (test code = [place], 1538) 15598: Inspector Rubber Stamp Die/Techni kaushik ID = [id number] for Lore Stokes POCT-GLUCOSE [id number] 00:16:02 Test Item Value Reference Range Interpretation Comments POC-GLUCOSE METER 89 mg/dL 70-110 : TESTED A T [facility] 6720 (BEAKER) (test code = [facility], 1538) 17784: Inspector Rubber Stamp Die/Techni kaushik ID = [id number] for Lore Stokes POCT-GLUCOSE [id number] 18:26:03 Test Item Value Reference Range Interpretation Comments POC-GLUCOSE METER 110 mg/dL 70-110 : TESTED A T [facility] 6720 (BEAKER) (test code = [facility], 1538) 71116: Inspector Rubber Stamp Die/Techni kaushik ID = [id number] for ABISAI SILVA POCT-GLUCOSE [id number] 13:19:38 Test Item Value Reference Range Interpretation Comments POC-GLUCOSE METER 109 mg/dL 70-110 : TESTED A T [facility] 6720 (BEAKER) (test code = [facility], 1538) 52381: Inspector Rubber Stamp Die/Techni kaushik ID = [id number] for ABISAI SILVA CBC W/PLT COUNT & AUTO [id number] 08:04:36 Test Item Value Reference Range Interpretation [...] 0-1 PERCENT (BEAKER) (test code = 2801) [id number] 07:24:14 Test Item Value Reference Range Interpretation Comments PHOSPHORUS (BEAKER) (test code = 2.3 mg/dL 2.3-4.7 604) Inspector Rubber Stamp Die LUPE BUCHANAN WCOMPREHENSIVE METABOLIC [id number] 07:24:13 Test Item Value Reference Range Interpretation [...] 347) EGFR (BEAKER) (test 47 mL/min/1.73 ESTIMA VERO GFR IS code = 1092) sq m NOT ACCURATE CREATININE CLEARANCE IN PREDICTING GLOMERULAR FILTRATION RATE . ESTIMATED GFR I S NOT APPLICABLE FOR DIALYSIS PATIEN TS. Inspector Rubber Stamp Die ID - DEWAYNE [id number] 07:24:13 Test Item Value Reference Range Interpretation Comments MAGNESIUM (BEAKER) (test code = 1.8 mg/dL 1.6-2.6 627) Inspector Rubber Stamp Die ID - DEWAYNE WPOCT-GLUCOSE [id number] 18:41:45 Test Item Value Reference Range Interpretation Comments POC-GLUCOSE METER 96 mg/dL 70-110 : TESTED A T [facility] 6720 (BEAKER) (test code = [facility], 1538) 38205: Inspector Rubber Stamp Die/Techni kaushik ID = [id number] for ASCENCION SAGE, KARAN POCT-GLUCOSE [id number] 11:57:32 Test Item Value Reference Range Interpretation Comments POC-GLUCOSE METER 146 mg/dL 70-110 H : TESTED A T [facility] 6720 (BEAKER) (test code = [facility], 1538) 49646: Inspector Rubber Stamp Die/Techni kaushik ID = [id number] for AK INSONU, KARAN POCT-GLUCOSE [id number] 08:36:14 Test Item Value Reference Range Interpretation Comments POC-GLUCOSE METER 103 mg/dL 70-110 : TESTED A T [facility] 6720 (BEAKER) (test code = [facility], 1538) 76224: Inspector Rubber Stamp Die/Techni kaushik ID = [id number] for AK INSONU, KARAN COMPREHENSIVE METABOLIC [id number] 08:08:55 Test Item Value Reference Range Interpretation [...] 347) EGFR (BEAKER) (test 42 mL/min/1.73 ESTIMA VERO GFR IS code = 1092) sq m NOT ACCURATE CREATININE CLEARANCE IN PREDICTING GLOMERULAR FILTRATION RATE . ESTIMATED GFR I S NOT APPLICABLE FOR DIALYSIS PATIEN TS. Inspector Rubber Stamp Die ID - [id number] 07:41:23 Test Item Value Reference Range Interpretation Comments MAGNESIUM (BEAKER) (test code = 1.8 mg/dL 1.6-2.6 627) Inspector Rubber Stamp Die ID - [id number] 07:41:23 Test Item Value Reference Range Interpretation Comments PHOSPHORUS (BEAKER) (test code = 2.3 mg/dL 2.3-4.7 604) Inspector Rubber Stamp Die ID - DBCBC W/PLT COUNT & AUTO [id number] 07:24:27 Test Item Value Reference Range Interpretation [...] PERCENT (BEAKER) (test code = 2801) POCT-GLUCOSE [id number] 05:13:18 Test Item Value Reference Range Interpretation Comments POC-GLUCOSE METER 91 mg/dL 70-110 : TESTED A T [facility] 6720 (BEAKER) (test code = JAMIE Cabrales [facility], 1538) 58359: Inspector Rubber Stamp Die/Techni kaushik ID = [id number] for SERENITY S SUZANNA POCT-GLUCOSE [id number] 00:08:50 Test Item Value Reference Range Interpretation Comments POC-GLUCOSE METER 109 mg/dL 70-110 : TESTED A T [facility] 6720 (BEAKER) (test code = [facility] Samra [facility], 1538) 36271: Inspector Rubber Stamp Die/Techni kaushik ID = [id number] for DE NNIS, TODD [id number] 07:11:30 Test Item Value Reference Range Interpretation Comments MAGNESIUM (BEAKER) (test code = 1.9 mg/dL 1.6-2.6 627) Inspector Rubber Stamp Die ID - SHAE [id number] 07:11:30 Test Item Value Reference Range Interpretation Comments PHOSPHORUS (BEAKER) (test code = 2.3 mg/dL 2.3-4.7 604) Inspector Rubber Stamp Die ID - SHAE LCOMPREHENSIVE METABOLIC [id number] 07:11:29 Test Item Value Reference Range Interpretation [...] 347) EGFR (BEAKER) (test 44 mL/min/1.73 ESTIMA VERO GFR IS code = 1092) sq m NOT ACCURATE CREATININE CLEARANCE IN PREDICTING GLOMERULAR FILTRATION RATE . ESTIMATED GFR I S NOT APPLICABLE FOR DIALYSIS PATIEN TS. Inspector Rubber Stamp Die ID - PIAYA LPOCT-GLUCOSE [id number] 06:13:33 Test Item Value Reference Range Interpretation Comments POC-GLUCOSE METER 99 mg/dL 70-110 : TESTED A T [facility] 6720 (BEAKER) (test code = [facility] [place], 1538) 65911: Inspector Rubber Stamp Die/Techni kaushik ID = [id number] for CB REIS CBC W/PLT COUNT & AUTO [id number] 05:36:33 Test Item Value Reference Range Interpretation [...] PERCENT (BEAKER) (test code = 2801) POCT-GLUCOSE [id number] 00:31:23 Test Item Value Reference Range Interpretation Comments POC-GLUCOSE METER 104 mg/dL 70-110 : TESTED A T [facility] 6720 (BEAKER) (test code = [facility], 153) 92396: Inspector Rubber Stamp Die/Techni kaushik ID = [id number] for CB COULTER POCT-GLUCOSE [id number] 17:25:03 Test Item Value Reference Range Interpretation Comments POC-GLUCOSE METER 114 mg/dL 70-110 H : TESTED A T [facility] 6720 (BEAKER) (test code = [facility], 153) 23356: Inspector Rubber Stamp Die/Techni kaushik ID = [id number] for KIMO MARIAMABISAI MTZ POCT-GLUCOSE [id number] 12:56:53 Test Item Value Reference Range Interpretation Comments POC-GLUCOSE METER 133 mg/dL 70-110 H : TESTED A T [facility] 6720 (BEAKER) (test code = JAMIE Cabrales [facility], 1538) 84391: Inspector Rubber Stamp Die/Techni kaushik ID = [id number] for ABISAI SILVA POCT-GLUCOSE [id number] 06:10:41 Test Item Value Reference Range Interpretation Comments POC-GLUCOSE METER 123 mg/dL 70-110 H : Notified RN/MD: (BEAKER) (test code = TESTED AT [facility] 6720 1538) MESHA [facility], 21291: Inspector Rubber Stamp Die/Techni kaushik ID = [id number] for CHERYL MANZO [id number] 04:47:21 Test Item Value Reference Range Interpretation Comments MAGNESIUM (BEAKER) (test code = 2.0 mg/dL 1.6-2.6 627) Inspector Rubber Stamp Die ID - CATRACHO [id number] 04:47:21 Test Item Value Reference Range Interpretation Comments PHOSPHORUS (BEAKER) (test code = 2.1 mg/dL 2.3-4.7 L 604) Inspector Rubber Stamp Die ID - CATRACHO MCOMPREHENSIVE METABOLIC [id number] 04:47:20 Test Item Value Reference Range Interpretation [...] 347) EGFR (BEAKER) (test 37 mL/min/1.73 ESTIMA VERO GFR IS code = 1092) sq m NOT ACCURATE CREATININE CLEARANCE IN PREDICTING GLOMERULAR FILTRATION RATE . ESTIMATED GFR I S NOT APPLICABLE FOR DIALYSIS PATIEN TS. Inspector Rubber Stamp Die ID - CATRACHO MCBC W/PLT COUNT & AUTO [id number] 04:08:41 Test Item Value Reference Range Interpretation [...] 417) IMMATURE GRANULOCYTES-RELATIVE 0 % 0-1 PERCENT (AKER) (test code = 2801) POCT-GLUCOSE [id number] 23:46:34 Test Item Value Reference Range Interpretation Comments POC-GLUCOSE METER 132 mg/dL 70-110 H : Notified RN/MD: ([facility]) (test code = TESTED AT [place] [address]) [facility], [address]: Inspector Rubber Stamp Die/Techni kaushik ID = [id number] for DO VE, CHEALVINA POCT-GLUCOSE [id number] 18:31:36 Test Item Value Reference Range Interpretation Comments POC-GLUCOSE METER 137 mg/dL 70-110 H : TESTED A [place] [id number] ([facility]) (test code = [facility], 1538) 46622: Inspector Rubber Stamp Die/Techni kaushik ID = [id number] for ROBINA DAMON, DANAY POCT-GLUCOSE [id number] 12:33:28 Test Item Value Reference Range Interpretation Comments POC-GLUCOSE METER 128 mg/dL 70-110 H : TESTED A [facility] 6720 ([facility]) (test code = [facility], 1538) 13712: Inspector Rubber Stamp Die/Techni kaushik ID = [id number] for MA RTINEZ, DANAY [id number] 07:06:08 Test Item Value Reference Range Interpretation Comments PHOSPHORUS ([facility]) (test code = 4.4 mg/dL 2.3-4.7 604) Inspector Rubber Stamp Die ID - SHAE LCOMPREHENSIVE METABOLIC [id number] 07:06:07 Test Item Value Reference Range Interpretation [...] 347) EGFR (BEAKER) (test 30 mL/min/1.73 ESTIMA VERO GFR IS code = 1092) sq m NOT ACCURATE CREATININE CLEARANCE IN PREDICTING GLOMERULAR FILTRATION RATE . ESTIMATED GFR I S NOT APPLICABLE FOR DIALYSIS PATIEN TS. Inspector Rubber Stamp Die ID - SHAE [id number] 07:06:07 Test Item Value Reference Range Interpretation Comments MAGNESIUM (BEAKER) (test code = 2.3 mg/dL 1.6-2.6 627) Inspector Rubber Stamp Die ID - SHAE LPOCT-GLUCOSE [id number] 06:31:52 Test Item Value Reference Range Interpretation Comments POC-GLUCOSE METER 119 mg/dL 70-110 H : TESTED A T [facility] 6720 (BEAKER) (test code = [facility] [place], 1538) 79653: Inspector Rubber Stamp Die/Techni kausihk ID = [id number] for TIFFANIE WHITT CBC W/PLT COUNT & AUTO [id number] 04:39:54 Test Item Value Reference Range Interpretation [...] PERCENT (BEAKER) (test code = 2801) POCT-GLUCOSE [id number] 00:11:53 Test Item Value Reference Range Interpretation Comments POC-GLUCOSE METER 106 mg/dL 70-110 : TESTED A T [facility] 6720 (BEAKER) (test code = [place] [place], 1538) 13793: Inspector Rubber Stamp Die/Techni kaushik ID = [id number] for TIFFANIE WHITT URINALYSIS W/ REFLEX URINE [id number] 19:10:53 Test Item Value Reference Range Interpretation [...] = 1521) SOURCE(BEAKER) (test code = 2795) Inspector Rubber Stamp Die ID - [auto]Inspector Rubber Stamp Die ID - techPOCT-GLUCOSE [id number] 18:31:06 Test Item Value Reference Range Interpretation Comments POC-GLUCOSE METER 95 mg/dL 70-110 : TESTED A T [facility] 6720 (FELISHA) (test code = [place] [place], 1538) 47604: Inspector Rubber Stamp Die/Techni kaushik ID = [id number] for MARIANGEL PLEITEZ, DANAY RAD, CHEST, 1 VIEW, NON [id number] 14:59:00Reason for exam:->follwo up interstitial infeiltratesShould this be performed at the bedside?->Yes [facility] 1935 Sex: FFINAL REPORT Chest one view. Clinical history: follow up interstitial infiltrates Comparison: March 17, 2021 Discussion: A frontal chest is provided. Cardiomediastinal contours areunchanged. Tip of [place] projects over the stomach. There is no juana pulmonary edema, consolidation, pneumothorax, or large effusion. Interstitial prominence has resolved. Signed: Parisa Vanegas Verified Date/Time: 03/20/2021 14:59:46 Reading Location: [address] Ortho Consult Reading Room POCT-GLUCOSE [id number] 12:21:05 Test Item Value Reference Range Interpretation Comments POC-GLUCOSE METER 78 mg/dL 70-110 : TESTED A Sabrina [facility] 6720 (FELISHA) (test code = [facility] [place], 1538) 990[address]: Inspector Rubber Stamp Die/Techni kaushik ID = [id number] for MARIANGEL PLEITEZ, DANAY CT, BRAIN, WITHOUT [id number] 12:04:00Unlisted Reason for Exam - Click Yes and Enter Reason Below->No [facility] : 1935 Sex: FAddendum BeginsREPORT STATUS:A 3-D reconstructions were obtained at a separate workstation and added to PACS after the report was finalized. There is no significant change to the initial interpretation. Signed: Robert Zoila MDReport Verified Date/Time: 03/20/2021 12:04:41 Addendum EndsFINAL REPORT CLINICAL HISTORY: Stroke, follow up TECHNIQUE: Initially, noncontrast CT head was performed. Contiguous contrast-enhanced axial images through the neck followed by axial images through the head with coronal and sagittal reformations to assess the arterial circulation. 3-D reconstructions were not available at time of interpretation. This exam was performed according to the departmental dose optimization program which includes automated exposure control, adjustmentof the mA and/or kV according to the patient size, and/or use of an iterative reconstruction technique. Stenosis evaluation reported in compliance with NASCET criteria. COMPARISON: CT head 03/18/2021 FINDINGS: CTA head:Please note that CTA is inherently insensitive in evaluating the cavernous and skullbase portions of the internal carotid arteries because of adjacent bone and venous opacification. Exam is degraded by motion. There is no CT evidence of acute infarct or hemorrhage. Generalized cerebralatrophy with ex vacuo dilatation of the ventricular [...] the bilateral cavernous and paraclinoid ICAs without flow-limitingstenosis. There is no evidence of intracranial aneurysm. The major intradural venous sinuses are patent. CTA neck:Great vessel origins: No occlusion or high-grade stenosis. Carotid arteries: Advanced atherosclerosis in the carotid bifurcations. There is approximately 60% focal stenosis of the right proximal ICA and 40% focal stenosis of the left ICA. Vertebral arteries: No occlusion or high-grade sten osis. No fracture or suspicious osseous lesion. Cervical soft tissues are unremarkable. Visualized lung apices are clear. 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 Signed: Zoila Jones Verified Date/Time: 03/19/2021 17:19:49 CT, CTANGIO BRAIN 2021-03-20 12:04:00Unlisted Reason for Exam - Click Yes and Enter Reason Below->No[facility] : 1935 Sex: FAddendum BeginsREPORT STATUS:A 3-D reconstructions were obtained at a separate workstation and added to PACS after the report was finalized. There is no significant change to the initial interpretation. Signed: Zoila Jones Verified Date/Time: 03/20/2021 12:04:41 Addendum EndsFINAL REPORT CLINICAL HISTORY: Stroke, follow up TECHNIQUE: Initially, noncontrast CT head was performed. Contiguous contrast-enhanced axial images through the neck followed by axial images through the head [...] that CTA is inherently insensitive in evaluating the cavernous and skullbase portions of the internal carotid [...] ICA. Vertebral arteries: No occlusion or high-grade alberta nosis. No fracture or suspicious osseous lesion. Cervical soft tissues are unremarkable. Visualized lung apices are clear. IMPRESSION:1.No intracranial hemorrhage or CT evidence of acute territorial infarct.2.No proximal branch arterial occlusion within the head and neck.3.Moderate multifocal stenosesof the right P1 and bilateral V4 segments.4.Approximately 60% focal stenosis of the right ICA and 40% focal stenosis of the left ICA per NASCET criteria. Signed: Zoila Jonesresearch [facility] center Verified Date/Time: 03/19/2021 17:19:49 CT, CAROTID, ANGIO 2021-03-20 12:04:00Unlisted Reason for Exam - Click Yes and Enter Reason Below->NoCHI [facility] : 1935 Sex: FAddendum BeginsREPORT STATUS:A 3-D reconstructions were obtained at a separate workstation and added to PACS after the report was finalized. There is no significant change to the initial interpretation. Signed: Zoila Jones MDRepharshad Verified Date/Time: 03/20/2021 12:04:41 Addendum EndsFINAL REPORT CLINICAL HISTORY: Stroke, follow up TECHNIQUE: Initially, noncontrast CT head was performed. Contiguous contrast-enhanced axial images through the neck followed by axial images through the head with coronal and sagittal reformations to assess the arterial circulation. 3-D reconstructions were not available at time of interpretation. This exam was performed according to the departmental dose optimization program which includes automated exposure control, adjustmentof the mA and/or kV according to the patient size, and/or use of an iterative reconstruction technique. Stenosis evaluation reported in compliance with NASCET criteria. COMPARISON: CT head 03/18/2021 FINDINGS: CTA head:Please note that CTA is inherently insensitive in evaluating the cavernous and skullbase portions of the internal carotid arteries because of adjacent bone and venous opacification. Exam is degraded by motion. There is no CT evidence of acute infarct or hemorrhage. Generalized cerebralatrophy with ex vacuo dilatation of the ventricular [...] the bilateral cavernous and paraclinoid ICAs without flow-limitingstenosis. There is no evidence of intracranial aneurysm. The major intradural venous sinuses are patent. CTA neck:Great vessel origins: No occlusion or high-grade stenosis. Carotid arteries: Advanced atherosclerosis in the carotid bifurcations. There is approximately 60% focal stenosis of the right proximal ICA and 40% focal stenosis of the left ICA. Vertebral arteries: No occlusion or high-grade sten osis. No fracture or suspicious osseous lesion. Cervical soft tissues are unremarkable. Visualized lung apices are clear. 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 Signed: Zoila Jones Verified Date/Time: 03/19/2021 17:19:49 POCT-GLUCOSE METER 2021-03-20 07:05:40 Test Item Value Reference Range Interpretation Comments POC-GLUCOSE METER 73 mg/dL 70-110 : TESTED A T [facility] 6720 (BEAKER) (test code = JAMIE Cabrales [facility], 1538) 54623: Inspector Rubber Stamp Die/Techni kaushik ID = [id number] for ABISAI WEINER [id number] 06:26:24 Test Item Value Reference Range Interpretation Comments MAGNESIUM (BEAKER) (test code = 2.4 mg/dL 1.6-2.6 627) Inspector Rubber Stamp Die ID - CATRACHO [id number] 06:26:24 Test Item Value Reference Range Interpretation Comments PHOSPHORUS (BEAKER) (test code = 5.5 mg/dL 2.3-4.7 H 604) Inspector Rubber Stamp Die ID - CATRACHO MCOMPREHENSIVE METABOLIC [id number] 06:26:23 Test Item Value Reference Range Interpretation [...] 347) EGFR (BEAKER) (test 31 mL/min/1.73 ESTIMA VERO GFR IS code = 1092) sq m NOT ACCURATE CREATININE CLEARANCE IN PREDICTING GLOMERULAR FILTRATION RATE . ESTIMATED GFR I S NOT APPLICABLE FOR DIALYSIS PATIEN TS. Inspector Rubber Stamp Die ID - CATRACHO MCBC W/PLT COUNT & AUTO [id number] 06:10:19 Test Item Value Reference Range Interpretation [...] PERCENT (BEAKER) (test code = 2801) POCT-GLUCOSE [id number] 00:30:31 Test Item Value Reference Range Interpretation Comments POC-GLUCOSE METER 80 mg/dL 70-110 : TESTED A T [facility] 6720 (BEAKER) (test code = [place], 1538) 19134: Inspector Rubber Stamp Die/Techni kaushik ID = [id number] for TIFFANIE DONALDSON POCT-GLUCOSE [id number] 17:50:50 Test Item Value Reference Range Interpretation Comments POC-GLUCOSE METER 93 mg/dL 70-110 : TESTED A T [facility] 6720 (LISANDROAKER) (test code = [place], 1538) 61884: Inspector Rubber Stamp Die/Techni kaushik ID = [id number] for DANAY MASSEY SARS-COV2/RT-PCR ([facility] [facility])2021-03-19 13:50:07 Test Item Value Reference Range Interpretation Comments SARS-COV2/RT-PCR (test Negative Not Detected, Negative, code = 0408553) See external report for linked test SARS-COV-2 PERFORMING LAB [facility] (test code = 2428245) Negative result for this test determines that SARS-CoV-2 RNA was not present in the specimen above the Limit of Detection (LOD). However, Negative results do not preclude SARS-CoV-2 infection and should not be used as the sole basis for treatment or patient management decisions. Negative results must be combined with clinical observations, patient history, and [...] justifying the authorization of the emergency use ofin vitro diagnostic tests for detection and/or diagnosis of COVID-19 is terminated under Section 564(b)(2) of the Act or the EUA is revoked under Section 564(g) of the Act.Fact Sheet for Healthcare Prov iders:https://www.[employer]/sites/default/files/product/documents/Fact_Sheet_HC _Ypvogshyf_Ircn_HQAY-UrR-7.pdfFact Sheet for Healthcare Patients:https://www.[employer]/sites/default/files/product/docume nts/Ujga_Kgyog_Afkidezz_Cedr_TSBX-YmW-5.pdfPerforming Laboratory:[facility], [place] [address]WARQ-UORTLCI METER 2021-03-19 12:25:24 Test Item Value Reference Range Interpretation Comments POC-GLUCOSE METER 99 mg/dL 70-110 : TESTED A T [facility] 6720 (BEAKER) (test code = JAMIE Cabrales [facility], 1538) [id number]: Inspector Rubber Stamp Die/Techni kaushik ID = [id number] for DANAY MASSEY [id number] 11:06:15 Test Item Value Reference Range Interpretation Comments RPR SCREEN (BEAKER) (test code = Nonreactive Nonreactive 420) POCT-GLUCOSE [id number] 06:58:31 Test Item Value Reference Range Interpretation Comments POC-GLUCOSE METER 96 mg/dL 70-110 : TESTED A T [facility] 6720 (BEAKER) (test code = JAMIE Cabrales [facility], 1538) [address]: Inspector Rubber Stamp Die/Techni kaushik ID = [id number] for Mavis Noonan [id number] 06:11:28 Test Item Value Reference Range Interpretation Comments MAGNESIUM (BEAKER) (test code = 2.1 mg/dL 1.6-2.6 627) Inspector Rubber Stamp Die ID - SHAE [id number] 06:11:28 Test Item Value Reference Range Interpretation Comments PHOSPHORUS (BEAKER) (test code = 4.0 mg/dL 2.3-4.7 604) Inspector Rubber Stamp Die ID - SHAE LCOMPREHENSIVE METABOLIC [id number] 06:11:27 Test Item Value Reference Range Interpretation [...] 347) EGFR (BEAKER) (test 38 mL/min/1.73 ESTIMA VERO GFR IS code = 1092) sq m NOT ACCURATE CREATININE CLEARANCE IN PREDICTING GLOMERULAR FILTRATION RATE . ESTIMATED GFR I S NOT APPLICABLE FOR DIALYSIS PATIEN TS. Inspector Rubber Stamp Die ID - PIAYA LCBC W/PLT COUNT & AUTO [id number] 06:07:52 Test Item Value Reference Range Interpretation [...] PERCENT (BEAKER) (test code = 2801) POCT-GLUCOSE [id number] 00:26:50 Test Item Value Reference Range Interpretation Comments POC-GLUCOSE METER 94 mg/dL 70-110 : TESTED A T [facility] 6720 (BEAKER) (test code = [place]IE [place], 1538) [address]: Inspector Rubber Stamp Die/Techni kaushik ID = [id number] for Weav er, Mavis RAD, ABDOMEN/KUB, 1 VIEW [id number] 22:24:00Reason for exam:->corpak placementXU [facility] : 1935 Sex: FFINAL REPORT CLINICAL HISTORY: Feeding tube placement COMPARISON: None. FINDINGS: Asingle supine image of the abdomen is submitted. The tip of a feeding tube overlies the expected position of the gastric pylorus/duodenal bulb. Advancement can be considered if definitive placement in the duodenum is intended. The abdominal bowel gas pattern is unobstructed. There is no focus of dilated large or small bowel. There is no evidence of organomegaly or significant ascites. Atheroscleroticcalcifications are present in the abdomen and pelvis. There is no acute bony abnormality. Signed: Jordan Coburn MDReport Verified Date/Time: 03/18/2021 22:24:48 POCT-GLUCOSE [id number] 18:14:14 Test Item Value Reference Range Interpretation Comments POC-GLUCOSE METER 103 mg/dL 70-110 : TESTED A [facility] 6720 ([employer]) (test code = JAMIE Cabrales [facility], 1538) 24392: Inspector Rubber Stamp Die/Techni kaushik ID = [id number] for Karen Arauz POCT-GLUCOSE [id number] 06:34:39 Test Item Value Reference Range Interpretation Comments POC-GLUCOSE METER 106 mg/dL 70-110 : TESTED A T [facility] 6720 ([employer]) (test code = JAMIE Cabrales [facility], 1538) [address]: Inspector Rubber Stamp Die/Techni kaushik ID = [id number] for CYRUS GRANADO CT, BRAIN, WITHOUT [id number] 04:55:00Unlisted Reason for Exam - Click Yes and Enter Reason Below->No [facility] : 1935 Sex: FFINAL REPORT CT, BRAIN, WITHOUT CONTRAST CLINICAL INDICATION: Stroke, follow up COMPARISON: 02/16/2018 TECHNIQUE: Noncontrast axial CT imaging of the brain and skull. Coronal and sagittal reformats obtained. DOSE REDUCTION: Dose modulation, iterative reconstruction, and/or weight-basedadjustment of the mA/kV was utilized to reduce the radiation dose to as low as reasonably achievable. FINDINGS: Motion limited exam.Cerebral parenchyma: Global parenchymal volume loss and white matter hypoattenuation. No mass, acute intracranial hemorrhage or convincing evidence of acute cortical infarct.Cerebellum and brainstem: Left cerebellar hemisphere and vermis hypoattenuation.Ventricles: No acute hydrocephalus.Extra-axial spaces: Unremarkable. Calvarium and skull base: Intact.Paranasal sinuses and mastoid air cells: Imaged chambers are without acute abnormality.Orbital contents: Included portions unremarkable. IMPRESSION: Motion limited examination. Moderate cerebral and cerebellar chronic ischemic changes but correlation with MRI brain to exclude acute on chronic ischemia should be considered given extensive motion degradation. Signed: Justin Mattson MDReport Verified Date/Time: 03/18/2021 04:55:48 HIGH SENSITIVITY TROPONIN I 2021-03-18 04:28:08 Test Item Value Reference Range Interpretation Comments HIGH SENSITIVITY 2424 pg/ml See_Comment HH [Automated message] TROPONIN I (test code The sy stem which = [id number]) generated this result transmitted ref erence range: <=17. Th e reference range was not used to int erpret this result as normal/abnormal . Inspector Rubber Stamp Die ID - PIAYA LThe ASSISTANT BUYER STAT High Sensitivity Troponin-I results should be used in conjunction with other diagnostic information such as ECG, clinical observations and information, and patient symptoms to aid in the diagnosis of [place].COMPREHENSIVE METABOLIC [id number] 04:26:59 Test Item Value Reference Range Interpretation [...] hemolyzed EGFR (BEAKER) (test 38 mL/min/1.73 ESTIMA VERO GFR IS code = 1092) sq m NOT ACCURATE CREATININE CLEARANCE IN PREDICTING GLOMERULAR FILTRATION RATE . ESTIMATED GFR I S NOT APPLICABLE FOR DIALYSIS PATIEN TS. Inspector Rubber Stamp Die ID - PIAYA [id number] 04:26:58 Test Item Value Reference Range Interpretation Comments MAGNESIUM (BEAKER) 2.4 mg/dL 1.6-2.6 Specimen slightly (test code = 627) hemolyzed Inspector Rubber Stamp Die ID - SHAE [id number] 04:26:58 Test Item Value Reference Range Interpretation Comments PHOSPHORUS (BEAKER) 3.7 mg/dL 2.3-4.7 Specimen slightly (test code = 604) hemolyzed Inspector Rubber Stamp Die ID - SHAE LCBC W/PLT COUNT & AUTO [id number] 04:21:01 Test Item Value Reference Range Interpretation [...] PERCENT (BEAKER) (test code = 2801) POCT-GLUCOSE [id number] 00:41:25 Test Item Value Reference Range Interpretation Comments POC-GLUCOSE METER 106 mg/dL 70-110 : TESTED A T [facility] 6720 (BEAKER) (test code = JAMIE [place], 1538) [address]: Inspector Rubber Stamp Die/Techni kaushik ID = [id number] for CYRUS GRANADO HIGH SENSITIVITY TROPONIN [id number] 16:58:20 Test Item Value Reference Range Interpretation Comments HIGH SENSITIVITY 4622 pg/ml See_Comment HH [Automated message] TROPONIN I (test code The sy stem which = [id number]) generated this result transmitted ref erence range: <=17. Th e reference range was not used to int erpret this result as normal/abnormal . Inspector Rubber Stamp Die ID - CATRACHO Gatica ASSISTANT BUYER STAT High Sensitivity Troponin-I results should be used in conjunction with other diagnostic information such as ECG, clinical observations and information, and patient symptoms to aid in the diagnosis of [place].HEMOGLOBIN [id number] 13:03:51 Test Item Value Reference Range Interpretation Comments HEMOGLOBIN A1C (BEVALERY) (test code = 5.7 % 4.3-6.1 368) HIGH SENSITIVITY TROPONIN [id number] 08:36:08 Test Item Value Reference Range Interpretation Comments HIGH SENSITIVITY 5997 pg/ml See_Comment HH [Automated message] TROPONIN I (test code The sy stem which = [id number]) generated this result transmitted ref erence range: <=17. Th e reference range was not used to int erpret this result as normal/abnormal . Inspector Rubber Stamp Die ID - CATRACHO Cal[employer]ae ASSISTANT BUYER STAT High Sensitivity Troponin-I results should be used in conjunction with other diagnostic information such as ECG, clinical observations and information, and patient symptoms to aid in the diagnosis of [place].Inspector Rubber Stamp Die ID - CATRACHO STORMD, CHEST, 1 VIEW, NON [id number] 06:47:00Reason for exam:->Desat [facility]ARCEL [facility]AZ[facility]ETA : 1935 Sex: FFINAL REPORT RAD, CHEST, 1 VIEW, NON DEPT INDICATION: Desat COMPARISON: Prior day'sexam FINDINGS: Portable frontal view of the chest. IMPRESSION: Support Lines: Overlying leads Lungs and pleura: Unchanged mild diffuse interstitial thickening, representing singly or in combination, interstitial edema and/or pneumonitis. No significant pneumothorax. Heart and mediastinum: Stable contours. Additional findings: None. Signed: Vani Denis Verified Date/Time: 03/17/2021 06:47:48 POCT-GLUCOSE [id number] 06:40:01 Test Item Value Reference Range Interpretation Comments POC-GLUCOSE METER 102 mg/dL 70-110 : TESTED A T [facility] 6720 (BEAKER) (test code = [facility], 1538) 316[address]: Inspector Rubber Stamp Die/Techni kaushik ID = [id number] for EMILIE WESTON VITAMIN B12 AND [id number] 03:42:15 Test Item Value Reference Range Interpretation Comments VITAMIN B12 (BEAKER) 715 pg/mL 213-816 (test code = 774) FOLATE (BEAKER) 3.20 ng/mL See_Comment L [Automated message] (test code = 362) The system which generated this result transmitted ref erence range: >=7.00. The reference range was not used to interpr et this result as normal/abnormal . Inspector Rubber Stamp Die ID - CATRACHO MTSH/FREE T4 IF [id number] 03:42:14 Test Item Value Reference Range Interpretation Comments THYROID STIMULATING HORMONE 0.995 uIU/mL 0.350-4.940 (BEAKER) (test code = 772) Inspector Rubber Stamp Die ID - CATRACHO MHIGH SENSITIVITY TROPONIN [id number] 02:10:06 Test Item Value Reference Range Interpretation Comments HIGH SENSITIVITY 752 pg/ml See_Comment HH [Automated message] TROPONIN I (test code The sy stem which = [id number]) generated this result transmitted ref erence range: <=17. Th e reference range was not used to int erpret this result as normal/abnormal . Inspector Rubber Stamp Die ID - DBThe ASSISTANT BUYER STAT High Sensitivity Troponin-I results should be used in conjunctionwith other diagnostic information such as ECG, clinical observations and information, and patient symptoms to aid in the diagnosis of [place].B-TYPE NATRIURETIC FACTOR (BNP)2021-03-17 02:05:41 Test Item Value Reference Range Interpretation Comments B-TYPE NATRIURETIC PEPTIDE (BEAKER) 620 pg/mL 0-100 H (test code = 700) Inspector Rubber Stamp Die ID - DBLACTIC ACID, [id number] 01:57:01 Test Item Value Reference Range Interpretation Comments LACTATE BLOOD VENOUS 0.59 mmol/L 0.50-2.20 Specime n moderately (2) (BEAKER) (test hemolyzed code = 2872) Inspector Rubber Stamp Die ID - DBCBC W/PLT COUNT & AUTO [id number] 01:39:26 Test Item Value Reference Range Interpretation [...] 0-1 PERCENT (BEAKER) (test code = 2801) [id number] 01:36:41 Test Item Value Reference Range Interpretation Comments PHOSPHORUS (BEAKER) (test code = 3.6 mg/dL 2.3-4.7 604) Inspector Rubber Stamp Die ID - DBLIPID [id number] 01:36:41 Test Item Value Reference Range Interpretation Comments TRIGLYCERIDES (BEAKER) (test code = 60 mg/dL 540) CHOLESTEROL (BEAKER) (test code = 163 mg/dL 631) HDL CHOLESTEROL (BEAKER) (test code 62 mg/dL = 976) LDL CHOLESTEROL CALCULATED (BEAKER) 89 mg/dL (test code = 633) Triglyceride Reference Range: Low Risk <150 Borderline 150-199 High Risk 200- 499 Very High Risk >=500Cholesterol Reference Range: Low Risk <200 Borderline 200-239 High Risk >240HDL Cholesterol Reference Range: Low Risk >=60 High Risk <40LDL Cholesterol Reference Range: Optimal <100 Near Optimal 100-129 Borderline 130-159 High 160-189 Very High >=190 Inspector Rubber Stamp Die ID - DBCOMPREHENSIVE METABOLIC [id number] 01:36:40 Test Item Value Reference Range Interpretation [...] 347) EGFR (BEAKER) (test 41 mL/min/1.73 ESTIMA VERO GFR IS code = 1092) sq m NOT ACCURATE CREATININE CLEARANCE IN PREDICTING GLOMERULAR FILTRATION RATE . ESTIMATED GFR I S NOT APPLICABLE FOR DIALYSIS PATIEN TS. Inspector Rubber Stamp Die ID - [id number] 01:36:40 Test Item Value Reference Range Interpretation Comments MAGNESIUM (BEAKER) (test code = 1.6 mg/dL 1.6-2.6 627) Inspector Rubber Stamp Die ID - [id number] 01:26:37 Test Item Value Reference Range Interpretation Comments FIBRINOGEN LEVEL (BEAKER) (test 227 mg/dl 225-434 code = 658) [id number] 01:26:37 Test Item Value Reference Range Interpretation Comments PARTIAL THROMBOPLASTIN TIME 29.3 seconds 22.5-36.0 (BEAKER) (test code = 760) PROTHROMBIN [id number] 01:25:54 Test Item Value Reference Range Interpretation Comments PROTIME (BEAKER) 14.4 seconds 11.9-14.2 H (test code = 759) INR (BEAKER) (test 1.14 See_Comment [Automat ed message] code = 370) The system [employer] generated this result transmitted ref erence range: <=5.90. The reference range was not used to int erpret this result as normal/abnormal . RECOMMENDED COUMADIN/WARFARIN INR THERAPY RANGESSTANDARD DOSE: 2.0 - 3.0 Includes: PROPHYLAXIS for venous thrombosis, systemic embolization; TREATMENT for venous thrombosis and/or pulmonary embolus.HIGH RISK: Target INR is 2.5-3.5 for patients with mechanical heart valves.[id number] 01:11:30 Test Item Value Reference Range Interpretation Comments AMMONIA (BEAKER) (test code = 348) 23 mol/L 18-72 Inspector Rubber Stamp Die ID - DBBASIC METABOLIC [id number] 07:17:00 Test Item Value Reference Range Interpretation [...] 697) EGFR (BEAKER) (test 51 mL/min/1.73 ESTIMA VERO GFR IS code = 1092) sq m NOT ACCURATE CREATININE CLEARANCE IN PREDICTING GLOMERULAR FILTRATION RATE . ESTIMATED GFR I S NOT APPLICABLE FOR DIALYSIS PATIEN TS. CBC W/PLT COUNT & AUTO [id number] 06:55:00 Test Item Value Reference Range Interpretation [...] (BEAKER) (test code = 2801) BASIC METABOLIC [id number] 05:32:00 Test Item Value Reference Range Interpretation [...] 697) EGFR (BEAKER) (test 52 mL/min/1.73 ESTIMA VERO GFR IS code = 1092) sq m NOT ACCURATE CREATININE CLEARANCE IN PREDICTING GLOMERULAR FILTRATION RATE . ESTIMATED GFR I S NOT APPLICABLE FOR DIALYSIS PATIEN TS. CBC W/PLT COUNT & AUTO [id number] 05:11:00 Test Item Value Reference Range Interpretation [...] 0-1 PERCENT (BEAKER) (test code = 2801) [id number] 07:46:00 Test Item Value Reference Range Interpretation Comments MAGNESIUM (BEAKER) (test code = 2.2 mg/dL 1.6-2.6 627) BASIC METABOLIC [id number] 07:46:00 Test Item Value Reference Range Interpretation [...] 697) EGFR (BEAKER) (test 47 mL/min/1.73 ESTIMA VERO GFR IS code = 1092) sq m NOT ACCURATE CREATININE CLEARANCE IN PREDICTING GLOMERULAR FILTRATION RATE . ESTIMATED GFR I S NOT APPLICABLE FOR DIALYSIS PATIEN TS. CBC W/PLT COUNT & AUTO [id number] 07:31:00 Test Item Value Reference Range Interpretation [...] (BEAKER) (test code = 2801) BASIC METABOLIC [id number] 14:48:00 Test Item Value Reference Range Interpretation [...] 697) EGFR (BEAKER) (test 41 mL/min/1.73 ESTIMA VERO GFR IS code = 1092) sq m NOT ACCURATE CREATININE CLEARANCE IN PREDICTING GLOMERULAR FILTRATION RATE . ESTIMATED GFR I S NOT APPLICABLE FOR DIALYSIS PATIEN TS. [id number] 06:03:00 Test Item Value Reference Range Interpretation [...] 0-0 (BEAKER) (test code = 413) POCT-GLUCOSE [id number] 14:00:00 Test Item Value Reference Range Interpretation Comments POC-GLUCOSE METER 283 mg/dL 70-110 H TESTED AT [facility] 6720 (BEAKER) (test code = JAMIE Cabrales [place] 1538) [address] [id number] 05:56:00 Test Item Value Reference Range Interpretation Comments MAGNESIUM (BEAKER) (test code = 2.8 mg/dL 1.6-2.6 H 627) BASIC METABOLIC [id number] 05:56:00 Test Item Value Reference Range Interpretation [...] 697) EGFR (BEAKER) (test 40 mL/min/1.73 ESTIMA VERO GFR IS code = 1092) sq m [...] WBC 0-0 (BEAKER) (test code = 413) [id number] 23:41:00 Test Item Value Reference Range Interpretation Comments ACTIVATED CLOTTING TIME 92 sec TEST ED AT [place] [address] ([facility]) (test code = [place]IE [place] [address]) [address] [id number] 21:56:00 Test Item Value Reference Range Interpretation Comments ACTIVATED CLOTTING TIME 153 sec TEST ED AT [place] [address] ([facility]) (test code = JAMIE Cabrales [place] [address]) [address] [id number] 19:28:00 Test Item Value Reference Range Interpretation Comments ACTIVATED CLOTTING TIME 197 sec TEST ED AT [place] [address] ([facility]) (test code = JAMIE Cabrales [place] [address]) [address] [id number] 17:41:00 Test Item Value Reference Range Interpretation Comments ACTIVATED CLOTTING TIME 246 sec TEST ED AT [place] [address] ([facility]) (test code = JAMIE Cabrales [place] [address]) [address] [id number] 12:36:00 Test Item Value Reference Range Interpretation Comments POTASSIUM ([facility]) (test code = 4.0 meq/L 3.5-5.1 379) TROPONIN [id number] 12:03:00 Test Item Value Reference Range Interpretation Comments TROPONIN I ([facility]) (test code = 3.94 ng/mL [...] failure, acidosis, acute neurological disease, and persistent tachyarrhythmia.[id number] 11:44:00 Test Item Value Reference Range Interpretation Comments MAGNESIUM (BEAKER) (test code = 1.9 mg/dL 1.6-2.6 627) [id number] 11:37:00 Test Item Value Reference Range Interpretation Comments PARTIAL THROMBOPLASTIN TIME 98.3 seconds 22.5-36.0 H [facility] (test code = 760) [id number] 04:04:00 Test Item Value Reference Range Interpretation Comments PARTIAL THROMBOPLASTIN TIME 92.5 seconds 22.5-36.0 H (BEAKER) (test code = 760) TROPONIN [id number] 02:06:00 Test Item Value Reference Range Interpretation [...] acute neurological disease, and persistent tachyarrhythmia.BASIC METABOLIC [id number] 01:56:00 Test Item Value Reference Range Interpretation [...] 697) EGFR (BEAKER) (test 34 mL/min/1.73 ESTIMA VERO GFR IS code = 1092) sq m NOT ACCURATE CREATININE CLEARANCE IN PREDICTING GLOMERULAR FILTRATION RATE . ESTIMATED GFR I S NOT APPLICABLE FOR DIALYSIS PATIEN TS. [id number] 01:53:00 Test Item Value Reference Range Interpretation Comments PROTIME (BEAKER) (test code = 15.2 seconds 11.7-14.7 H 759) INR (BEAKER) (test code = 370) 1.2 <=5.9 PARTIAL THROMBOPLASTIN TIME 146.1 seconds 22.5-36.0 H (BEAKER) (test code = 760) RECOMMENDED COUMADIN/WARFARIN INR THERAPY RANGESSTANDARD DOSE: 2.0 - 3.0 Includes: PROPHYLAXIS for venous thrombosis, systemic embolization; TREATMENT for venous thrombosis and/or pulmonary embolus.HIGH RISK: Target INR is 2.5-3.5 for patients with mechanical heart valves.PROTHROMBIN [id number] 01:50:00 Test Item Value Reference Range Interpretation Comments PROTIME (BEAKER) (test code = 15.2 seconds 11.7-14.7 H 759) INR (BEAKER) (test code = 370) 1.2 <=5.9 RECOMMENDED COUMADIN/WARFARIN INR THERAPY RANGESSTANDARD DOSE: 2.0 - 3.0 Includes: PROPHYLAXIS for venous thrombosis, systemic embolization; TREATMENT for venous thrombosis and/or pulmonary embolus.HIGH RISK: Target INR is 2.5-3.5 for patients with mechanical heart valves.CBC W/PLT COUNT & AUTO [id number] 01:43:00 Test Item Value Reference Range Interpretation [...] 0-1 PERCENT (BEAKER) (test code = 2801) [id number] 23:09:00 Test Item Value Reference Range Interpretation Comments RPR SCREEN (BEAKER) (test code = Nonreactive Nonreactive 420) TROPONIN [id number] 21:20:00 Test Item Value Reference Range Interpretation [...] failure, acidosis, acute neurological disease, and persistent tachyarrhythmia.[id number] 18:57:00 Test Item Value Reference Range Interpretation Comments PARTIAL THROMBOPLASTIN TIME 58.1 seconds 22.5-36.0 H (BEAKER) (test code = 760) TROPONIN [id number] 15:25:00 Test Item Value Reference Range Interpretation Comments TROPONIN I (BEAKER) (test code = 6.89 ng/mL 0.00-0.03 HH 397) Troponin I (TnI) [...] for extra pokeRAD, CHEST, 1 VIEW, NON [id number] 11:13:00Reason for exam:->chest painFINAL REPORT HISTORY : chest pain. Comparison: Chest x-ray of 12/10 is unavailable at this time for comparison. However, a chest x-ray dated 12/10/2015 is available for comparison. Comment: Single portable view of the chest was obtained. The cardiac silhouette size is enlarged. There are findings of pulmonary venous congestion. Interstitial prominence may represent interstit ial edema. No pneumothorax is seen. There is some nonspecific patchy left basilar airspace disease which may represent atelectasis. Pneumonitis or aspiration cannot be excluded. There is a tortuous/ectatic thoracic aorta with some atherosclerotic calcification. Signed: Cheyenne Strauss Verified Da te/Time: 02/16/2018 11:13:08 Reading Location: [facility] Radiology Reading Room TRMARIMAR [id number] 09:59:00 Test Item Value Reference Range Interpretation [...] failure, acidosis, acute neurological disease, and persistent tachyarrhythmia.[id number] 09:06:00 Test Item Value Reference Range Interpretation Comments PARTIAL THROMBOPLASTIN TIME 26.7 seconds 22.5-36.0 (FELISHA) (test code = 760) Prior to initiating heparinPLATELET [id number] 08:48:00 Test Item Value Reference Range Interpretation Comments PLATELET COUNT (BEVALERY) (test 230 K/CU MM 150-450 code = 756) CT BRAIN WITHOUT IV CONTRAST - [id number] 06:53:00Reason for exam:->post-tpaFINAL REPORT EXAM: CT head [...] mastoid tip. The left mastoid air cells areclear. The skull base and calvarium are intact. IMPRESSION: Motion limited exam. White matter mattermicrovascular ischemic changes. No gross acute intracranial hemorrhage or mass effect.No large demarc ated acute territorial infarct however evaluation is limited due to CT modality and motion artifact.Signed: Barney Han MDReport Verified Date/Time: 02/16/2018 06:53:18 Reading Location: [address] Transitional Reading Room ONIN [id number] 03:14:00 Test Item Value Reference Range Interpretation Comments TROPONIN I (BEVALERY) (test code = 3.40 ng/mL 0.00-0.03 HH [...] acute neurological disease, and persistent tachyarrhythmia.BASIC METABOLIC [id number] 02:53:00 Test Item Value Reference Range Interpretation [...] 697) EGFR (BEAKER) (test 50 mL/min/1.73 ESTIMA VERO GFR IS code = 1092) sq m NOT ACCURATE CREATININE CLEARANCE IN PREDICTING GLOMERULAR FILTRATION RATE . ESTIMATED GFR I S NOT APPLICABLE FOR DIALYSIS PATIEN TS. [id number] 02:48:00 Test Item Value Reference Range Interpretation Comments PROTIME (BEAKER) (test code = 14.5 seconds 11.7-14.7 759) INR (BEAKER) (test code = 370) 1.1 <=5.9 PARTIAL THROMBOPLASTIN TIME 25.7 seconds 22.5-36.0 (BEAKER) (test code = 760) RECOMMENDED COUMADIN/WARFARIN INR THERAPY RANGESSTANDARD DOSE: 2.0 - 3.0 Includes: PROPHYLAXIS for venous thrombosis, systemic embolization; TREATMENT for venous thrombosis and/or pulmonary embolus.HIGH RISK: Target INR is 2.5-3.5 for patients with mechanical heart valves.PROTHROMBIN [id number] 02:47:00 Test Item Value Reference Range Interpretation Comments PROTIME (BEAKER) (test code = 14.5 seconds 11.7-14.7 759) INR (BEAKER) (test code = 370) 1.1 <=5.9 RECOMMENDED COUMADIN/WARFARIN INR THERAPY RANGESSTANDARD DOSE: 2.0 - 3.0 Includes: PROPHYLAXIS for venous thrombosis, systemic embolization; TREATMENT for venous thrombosis and/or pulmonary embolus.HIGH RISK: Target INR is 2.5-3.5 for patients with mechanical heart valves.CBC W/PLT COUNT & AUTO [id number] 02:29:00 Test Item Value Reference Range Interpretation [...] PERCENT (BEAKER) (test code = 2801) TROPONIN [id number] 17:32:00 Test Item Value Reference Range Interpretation [...] acidosis, acute neurological disease, and persistent tachyarrhythmia.HEMOGLOBIN [id number] 11:13:00 Test Item Value Reference Range Interpretation Comments HEMOGLOBIN A1C (BEAKER) (test code = 5.4 % 4.3-6.1 368) [id number] 05:41:00 Test Item Value Reference Range Interpretation Comments THYROID STIMULATING HORMONE 0.94 uIU/mL 0.35-4.94 (BEAKER) (test code = 772) VITAMIN B12 AND [id number] 05:41:00 Test Item Value Reference Range Interpretation Comments VITAMIN B12 (BEAKER) (test code = 1440 pg/mL 213-816 H 774) FOLATE (BEAKER) (test code = 362) 7.6 ng/mL >=7.0 [id number] 05:07:00 Test Item Value Reference Range Interpretation Comments MAGNESIUM (BEAKER) 1.7 mg/dL 1.6-2.6 Specimen slightly (test code = 627) hemolyzed BASIC METABOLIC [id number] 05:07:00 Test Item Value Reference Range Interpretation [...] 697) EGFR (BEAKER) (test 57 mL/min/1.73 ESTIMA VERO GFR IS code = 1092) sq m NOT ACCURATE CREATININE CLEARANCE IN PREDICTING GLOMERULAR FILTRATION RATE . ESTIMATED GFR I S NOT APPLICABLE FOR DIALYSIS PATIEN TS. LIPID [id number] 05:07:00 Test Item Value Reference Range Interpretation [...] 100-129 Borderline 130-159 High 160-189 Very High >=190PT/APTT 2018-02-15 04:54:00 Test Item Value Reference Range Interpretation Comments PROTIME (BEAKER) (test code = 14.0 seconds 11.7-14.7 759) INR (BEAKER) (test code = 370) 1.1 <=5.9 PARTIAL THROMBOPLASTIN TIME 27.3 seconds 22.5-36.0 (BEAKER) (test code = 760) RECOMMENDED COUMADIN/WARFARIN INR THERAPY RANGESSTANDARD DOSE: 2.0 - 3.0 Includes: PROPHYLAXIS for venous thrombosis, systemic embolization; TREATMENT for venous thrombosis and/or pulmonary embolus.HIGH RISK: Target INR is 2.5-3.5 for patients with mechanical heart valves.PROTHROMBIN [id number] 04:53:00 Test Item Value Reference Range Interpretation Comments PROTIME (BEAKER) (test code = 14.0 seconds 11.7-14.7 759) INR (BEAKER) (test code = 370) 1.1 <=5.9 RECOMMENDED COUMADIN/WARFARIN INR THERAPY RANGESSTANDARD DOSE: 2.0 - 3.0 Includes: PROPHYLAXIS for venous thrombosis, systemic embolization; TREATMENT for venous thrombosis and/or pulmonary embolus.HIGH RISK: Target INR is 2.5-3.5 for patients with mechanical heart valves.CBC W/PLT COUNT & AUTO [id number] 04:44:00 Test Item Value Reference Range Interpretation [...] (BEAKER) (test code = 2801) BASIC METABOLIC [id number] 16:02:00 Test Item Value Reference Range Interpretation [...] 697) EGFR (BEAKER) (test 47 mL/min/1.73 ESTIMA VERO GFR IS code = 1092) sq m NOT ACCURATE CREATININE CLEARANCE IN PREDICTING GLOMERULAR FILTRATION RATE . ESTIMATED GFR I S NOT APPLICABLE FOR DIALYSIS PATIEN TS. CBC W/PLT COUNT & AUTO [id number] 15:31:00 Test Item Value Reference Range Interpretation [...] 417) IMMATURE GRANULOCYTES-RELATIVE 0 % 0-1 PERCENT (FELISHA) (test code = 2801)
[2022-06-20 16:38] LABS: Urine Blood Trace-intact (Negative); Urine Glucose Negative (Negative); Urine Protein 3+ (Negative); Urine Specific Gravity 1.015 (1.005-1.030)
[2022-06-20 17:04] LABS: Urine Bacteria None Seen /HPF (<20); Urine RBC <5 /HPF (None Seen)
--- NOTE | 2022-06-20 17:56 | RAD REPORT ---
EXAM DESCRIPTION: CT - Head Brain Wo Cont - 06/20/2022 5:49 pm CLINICAL HISTORY: ams COMPARISON: Ct Stroke Brain Wo Cont dated 07/20/2021; Ct Stroke Brain Wo Cont dated 07/14/2021 TECHNIQUE: All CT scans are performed using dose optimization technique as appropriate and may inclu de automated exposure control or mA/KV adjustment according to patient size. FINDINGS: No intracranial hemorrhage, hydrocephalus or extra-axial fluid collection.No areas of brai n edema or evidence of midline shift. Moderate chronic small-vessel ischemic changes The paranasal sinuses and mastoids are clear. The calvarium is intact. IMPRESSION: No acute intracranial abnormality.
[2022-06-20 19:59] LABS: Absolute Lymphocytes (CBC) 1.2 K/uL (0.7-4.9); Hematocrit 34.1 % (36.0-45.0); Lymphocytes % 19.4 % (15.3-44.8); MCV 88.1 fL (80-100); MPV 8.7 fL (7.6-11.3); RBC Red Blood Cell Count 3.87 M/uL (3.86-4.86)
[2022-06-20 20:13] LABS: Protime INR 0.96
[2022-06-20 20:14] LABS: Potassium 4.7 mmol/L (3.5-5.1); Troponin High Sensitivity 27.7 pg/mL (<58.9)
--- NOTE | 2022-06-20 20:29 | ER ---
Nurse's Notes [facility] Name: Casey Lyons Age: 86 yrs Sex: Female : 1935 Arrival Date: 06/20/2022 Time: 15:43 Bed 20 Private MD: Diagnosis: Essential (primary) hypertension;Altered mental status, unspecified-resolved Presentation: 06/20 16:18 Chief complaint: Patient's son or daughter states: RECENT MEMORY LAPSES. Coronavirus bp screen: At this time, the client does not indicate any symptoms associated with coronavirus-19. Ebola Screen: No symptoms or risks identified at this time. Initial Sepsis Screen: Does the patient meet any 2 criteria? Altered Mental Status. No. Patient's initial sepsis screen is negative. Does the patient have a suspected source of infection? No. Patient's initial sepsis screen is negative. Risk Assessment: Do you want to hurt yourself or someone else? Patient reports no desire to harm self or others. Onset of symptoms was June 15, 2022. 16:18 Method Of Arrival: Ambulatory bp 16:18 Acuity: CLINT 3 bp Triage Assessment: 21:25 General: Behavior is cooperative. bb Historical: - Allergies: 16:20 No Known Drug Allergies; bp - PMHx: 16:20 Hypertension; High Cholesterol; Cerebrovascular accident; Crohn's; Cellulitis of Leg; bp Dementia; - PSHx: 16:20 Stented artery; bp - Immunization history:: Client reports having NOT received the Covid vaccine. - Social history:: Smoking status: Patient denies any tobacco usage or history of. Screenin:46 Abuse screen: Denies threats or abuse. Nutritional screening: No deficits noted. bb Tuberculosis screening: No symptoms or risk factors identified. 20:30 The patient has not been NPO before screening. The patient is alert, able to follow bb commands. The patient does not exhibit slurred or garbled speech The patient is not exhibiting difficulty speaking. The patient does not exhibit difficulty understanding words. The patient is able to swallow own secretions with no drooling or need for suction. Patient tolerated one teaspoon of water. No drooling, immediate coughing, gurgling, or clearing of the throat was noted. The patient tolerated 90mL of water. No drooling, immediate coughing, gurgling, or clearing of the throat was noted. The patient passed the bedside swallow screening. Oral medications may be given as ordered. Contact Physician for further diet orders. 21:21 [facility] ED Fall Risk Assessment (Adult) History of falling in the last 3 months, bb including since admission No falls in past 3 months (0 pts). Assessment: 19:46 General: Appears in no apparent distress. slender. Pain: Denies pain. Neuro: Level of bb Consciousness is awake, alert, obeys commands, Oriented to person, place, time, situation, Speech is normal. Cardiovascular: Capillary refill < 3 seconds Patient's skin is warm and dry. Respiratory: Respiratory effort is even, unlabored, Respiratory pattern is regular, Breath sounds are clear bilaterally. GI: No signs and/or symptoms were reported involving the gastrointestinal system. : No signs and/or symptoms were reported regarding the genitourinary system. Derm: Skin is pink, warm \T\ dry. Musculoskeletal: Circulation, motion, and sensation intact. 21:20 Reassessment: Patient is alert, oriented x 3, equal unlabored respirations, skin bb warm/dry/pink. 21:24 Reassessment: pt verbalized understanding of and agrees to plan of care discharge bb instructions given pt ambulated with steady gait to exit accompanied by family. Vital Signs: 16:18 BP 206 / 51; Pulse 70; Resp 18; Pulse Ox 100% ; Weight 57.61 kg; Height 5 ft. 3 in. bp (160.02 cm); 19:47 BP 217 / 61; Pulse 65; Resp 18 S; Pulse Ox 100% on R/A; bb 21:20 BP 222 / 65; Pulse 58; Resp 17 S; Temp 97.7(O); Pulse Ox 99% on R/A; bb 16:18 Body Mass Index 22.50 (57.61 kg, 160.02 cm) bp ED Course: 15:43 Patient arrived in ED. jj6 16:07 Sydnie Osorio FNP-C is PHCP. kb 16:07 Brenda Marmolejo MD is Attending Physician. kb 16:20 Triage completed. bp 16:20 Arm band placed on. bp 16:55 Urine Culture Sent. zm 16:55 Urine Microscopic Only Sent. zm 17:51 CT Head Brain wo Cont In Process Unspecified. EDMS 19:46 Patient has correct armband on for positive identification. Placed in gown. Bed in low bb position. Call light in reach. Side rails up X2. Adult w/ patient. quality assurance monitor final on. Pulse ox on. NIBP on. Warm blanket given. :46 Initial lab(s) drawn, by ED staff, sent to lab. Inserted saline lock: 20 gauge in right bb antecubital area, using aseptic technique. Blood collected. 21:24 Whit Walker, RN is Primary Nurse. bb 21:25 No provider procedures requiring assistance completed. IV discontinued, intact, bb bleeding controlled, No redness/swelling at site. Pressure dressing applied. Administered Medications: No medications were administered Medication: : VIS not applicable for this client. bb Outcome: :29 Discharge ordered by . kb 21:25 Discharged to home ambulatory, with family. bb 21:25 Condition: stable 21:25 Discharge instructions given to patient, Instructed on discharge instructions, follow up and referral plans. Demonstrated understanding of instructions, follow-up care. 21:25 Patient left the ED. bb Signatures: Dispatcher [employer] EDMS Sydnie Osorio, ALMOND HULLER-C ALMOND HULLER-CkWhit Basurto, RN RN bb Pedro Wagoner, GLORIA RN Shaniqua Miller Zaina zm
--- NOTE | 2022-06-20 20:29 | EDPHYS ---
Physician Documentation [facility] Name: Casey Lyons Age: 86 yrs Sex: Female : 1935 Arrival Date: 06/20/2022 Time: 15:43 Bed 20 Private MD: ED Physician Brenda Marmolejo HPI: 06/20 18:18 This 86 yrs old Female presents to ER via Ambulatory with complaints of Memory Loss. kb 18:18 The patient presents with confusion. Onset: The symptoms/episode began/occurred 5 kb day(s) ago. Possible causes: unknown. Associated signs and symptoms: Pertinent positives: confusion. Current symptoms: In the emergency department the patient's symptoms have resolved, the patient is alert and fully oriented, has normal speech, has normal responsiveness. Patient's baseline: Neuro: alert and fully oriented, Motor: no deficits, Ambulation: walks without assistance, Speech: normal, The patient has a previous history of CVA, TIA. The patient has experienced similar episodes in the past, several times, today's symptoms are similar, to previous uti. The patient has been recently seen at an urgent care, just prior to arrival. 18:23 Daughter reports pt had an episode on 06/15 and another one yesterday when she was not kb making sense when talking and her speech was a bit slurred. States this morning she couldn't remember what happened yesterday and thought it was June. Pt now A\T\Ox4 with normal speech. Daughter states this has happened in the past with UTIs. States pt has history of dementia, cva and tias. Historical: - Allergies: 16:20 No Known Drug Allergies; bp - PMHx: 16:20 Hypertension; High Cholesterol; Cerebrovascular accident; Crohn's; Cellulitis of Leg; bp Dementia; - PSHx: 16:20 Stented artery; bp - Immunization history:: Client reports having NOT received the Covid vaccine. - Social history:: Smoking status: Patient denies any tobacco usage or history of. ROS: 18:17 Constitutional: Negative for fever, chills, and weight loss. kb 18:17 All other systems are negative. Exam: 18:18 Constitutional: This is a well developed, well nourished patient who is awake, alert, kb and in no acute distress. Head/Face: Normocephalic, atraumatic. ENT: Moist Mucous membranes Cardiovascular: Regular rate and rhythm with a normal S1 and S2. No gallops, murmurs, or rubs. No pulse deficits. Respiratory: Respirations even and unlabored. No increased work of breathing. Talking in full sentences Abdomen/GI: Soft, non-tender. No distention Skin: Warm, dry with normal turgor. Normal color. MS/ Extremity: Pulses equal, no cyanosis. Neurovascular intact. Full, normal range of motion. Neuro: Awake and alert, GCS 15, oriented to person, place, time, and situation. Moves all extremities. Normal gait. Psych: Awake, alert, with orientation to person, place and time. Behavior, mood, and affect are within normal limits. 20:33 ECG was reviewed by the Attending Physician. kb Vital Signs: 16:18 BP 206 / 51; Pulse 70; Resp 18; Pulse Ox 100% ; Weight 57.61 kg; Height 5 ft. 3 in. bp (160.02 cm); 19:47 BP 217 / 61; Pulse 65; Resp 18 S; Pulse Ox 100% on R/A; bb 21:20 BP 222 / 65; Pulse 58; Resp 17 S; Temp 97.7(O); Pulse Ox 99% on R/A; bb 16:18 Body Mass Index 22.50 (57.61 kg, 160.02 cm) bp MDM: 16:18 Patient medically screened. kb 18:18 Data reviewed: vital signs, nurses notes. Data interpreted: Pulse oximetry: on room air kb is 100 %. Interpretation: normal. 20:25 Counseling: I had a detailed discussion with the patient and/or guardian regarding: the kb historical points, exam findings, and any diagnostic results supporting the discharge/admit diagnosis, lab results, radiology results, the need for outpatient follow up, a community relations police lieutenant, a neurologist, to return to the emergency department if symptoms worsen or persist or if there are any questions or concerns that arise at home. ED course: Pt asymptomatic of BP. Pt normally takes amlodipine 10mg po Q HS. Pt reports she takes her BP daily and it normally runs systolic in the 140s. Pt will take amlodipine when she gets home and continue keeping log of BP. Will follow up with community relations police lieutenant for HTN management. Pt neuro exam normal during today's visit. CT head with no acute findings. Creatinine at baseline. Normal troponin. Pt is on xarelto. Pt has no complaints and would like to go home. Daughter in agreement with outpatient follow up. Daughter will make appts with Dr Lamb and community relations police lieutenant for follow up. . 06/20 16:18 Order name: Urine Culture kb 06/20 16:18 Order name: Urine Microscopic Only; Complete Time: 17:05 kb 06/20 16:38 Order name: Urine Dipstick-Ancillary; Complete Time: 16:46 EDMS 06/20 17:06 Order name: Basic Metabolic Panel; Complete Time: 20:15 kb 06/20 17:06 Order name: CBC with Diff; Complete Time: 20:10 kb 06/20 17:06 Order name: High Sensitivity Troponin; Complete Time: 20:15 kb 06/20 16:18 Order name: Urine Dipstick-Ancillary (obtain specimen); Complete Time: 16:55 kb 06/20 17:06 Order name: CT Head Brain wo Cont; Complete Time: 17:57 kb 06/20 17:06 Order name: Protime (+inr); Complete Time: 20:15 kb 06/20 17:06 Order name: Ptt, Activated; Complete Time: 20:15 kb 06/20 17:06 Order name: EKG; Complete Time: 17:06 kb 06/20 17:06 Order name: Accucheck; Complete Time: 21:21 kb 06/20 17:06 Order name: Cardiac monitoring; Complete Time: 19:40 kb 06/20 17:06 Order name: EKG - Nurse/Tech; Complete Time: 21:21 kb 06/20 17:06 Order name: IV Saline Lock; Complete Time: 19:40 kb 06/20 17:06 Order name: Labs collected and sent; Complete Time: 19:40 kb 06/20 17:06 Order name: NPO; Complete Time: 19:47 kb 06/20 17:06 Order name: O2 Per Protocol; Complete Time: 19:40 kb 06/20 17:06 Order name: O2 Sat Monitoring; Complete Time: 19:40 kb 06/20 17:06 Order name: Stroke Swallow Screen; Complete Time: 21:21 kb EC:33 Rate is 64 beats/min. Rhythm is regular. QRS [place] is Normal. MT interval is normal at kb 170 msec. QRS interval is normal at 98 msec. QT interval is normal at 427 msec. Administered Medications: No medications were administered Disposition Summary: 06/20/22 20:29 Discharge Ordered Location: Home kb Condition: Stable kb Diagnosis - Essential (primary) hypertension kb - Altered mental status, unspecified - resolved kb Followup: kb - With: Emergency Department - When: As needed - Reason: Worsening of condition Followup: kb - With: Private Physician - When: 2 - 3 days - Reason: Recheck today's complaints, Continuance of care, Re-evaluation by your physician Discharge Instructions: - Discharge Summary Sheet kb - Confusion kb - Hypertension, Adult, [id number] kb Forms: - Medication Reconciliation Form kb - Thank You Letter kb - Antibiotic Education kb - Prescription Opioid Use kb Addendum: 06/24/2022 18:35 STAFF ATTESTATION STATEMENT: I was immediately available onsite in the emergency s d2 department for consultation in the care of this patient. I did not see or examine this patient. Brenda Marmolejo MD. Signatures: Dispatcher [employer] EDMS Sydnie Osorio, JACKY-C JACKY-Pedro Erwin, RN RN Brenda Story MD MD sd2 Enid Zheng PA-C PA-C sb4
[2022-06-20 21:39] VITALS: BP 222/65; TEMP 97.7; O2SAT 99
--- NOTE | 2022-06-21 14:51 | EKG ---
Test Date: 2022-06-20 Test Time: 19:54:02 Tyre Finisher And Examiner: RV MEASUREMENT RESULTS: Intervals: Rate: 64 W[place]: 170 QRSD: 98 QT: 414 QTc: 427 [place]: P: 56 W[place]: 170 QRS: 50 T: 81 INTERPRETIVE STATEMENTS: Normal sinus rhythm Nonspecific T wave abnormality Abnormal ECG Compared to ECG 07/20/2021 00:19:28 Possible ischemia no longer present T-wave abnormality still present Electronically Signed On 06-21-22 14:50:19 [employer] SUPERVISOR by Umberto Eugene
== END 2022-06-20 21:25 | disposition home or self-care (01) ==
LOC: ER 15:41
DX: I10 Essential (primary) hypertension (principal); F03.90 Unspecified dementia, unspecified severity, without behavioral disturbance, psychotic disturbance, mood disturbance, and anxiety
CPT/HCPCS: 36415; 70450; 80048; 81003; 81015; 84484; 85025; 85610; 85730; 87086; 87088; 93005; 99284

== ENCOUNTER 2023-02-06 00:10 | Emergency (ER) | payer OTHER, MEDICARE ==
--- OUTSIDE RECORDS SUMMARY | 2023-02-06 00:31 | XMS REPORT | Continuity of Care Document ---
:1935 Author Organization [facility] t Address [address] [place] [address] [place] [id number] Care Team Providers Name Role Phone Asked, No Pcp Primary Care Physician Unavailable KAM OLIVO Attending Clinician Unavailable KAM OLIVO Attending Clinician Unavailable Doctor Unassigned, [place] Attending Clinician Unavailable 2, [facility] Attending Clinician Unavailable Kelli Monteiro Attending Clinician KELLI KOCH Attending Clinician Unavailable Ede [facility] Attending Clinician JANEL THOMAS Attending Clinician Unavailable Varsha Bernal MD Attending Clinician [phone] VARSHA BERNAL Attending Clinician Unavailable Anayeli VERNON, Edgardo Attending Clinician Estevan VERNON, Orlando Miles Attending Clinician [phone] Yohan VERNON, Dasia Vivar Attending Clinician [phone] Cally VERNON, Jennie Attending Clinician JENNIE ALAMO Attending Clinician Unavailable BRIGID GERARD Attending Clinician Unavailable XANDER HAYES Attending Clinician Unavailable ORALNDO BARRETO Attending Clinician Unavailable VARSHA BERNAL Admitting Clinician Unavailable ORLANDO BARRETO Admitting Clinician Unavailable TANVIR LARSON Admitting Clinician Unavailable Payers Payer Name Policy Type Policy Number Effective Date Expiration Date S sharla MEDICARE PART A \\T\\ [id number] 2002 B 00:00:00 [facility] [id number] 2020 MEDICARE SUPPLEMENT 00:00:00 Problems Condition Condition Condition Status Onset Resolution Last Treating Co mments Source Name Details Category Date Date Treatment Clinician Date CHF CHF Disease Active Univers (congestiv (congestiv 01-13 it y of e heart e heart 00:00: [place] failure) failure) 00 Medica l Branch Postmenopa Postmenopa Disease Active U nivers usal usal 01-13 ity of osteopor[place] Medical Branch Carotid Carotid Disease Active Overview: Univ ers stenosis stenosis 09-27 [facility] ity of 00:00: g of this [place] 00 note Medical might be Branch different from the original. plaque buildup CKD CKD Disease Active Univers (chronic (chronic 09-27 ity of kidney kidney 00:00: [place] disease) disease) 00 Medica l stage 3, stage 3, Branch GFR 30-59 GFR 30-59 ml/min ml/min Coronary Coronary Disease Active Overview: Un [place] artery artery 09-27 Form[place] ity of disease disease 00:00: g of this [place] involving involving 00 note Medi [place] might be Branch coronary coronary different artery of artery of from the [place] original. heart heart stent without without placed angina angina pectoris pectoris DVT (deep DVT (deep Disease Active Overview: Univers venous venous 4 Form[place] ity of thrombosis thrombosis 00:00: g of this [place] ) ) 00 note Medical might be Branch different from the original. in legs, multiple Hearing Hearing Disease Active Overview: Univ ers loss loss 07 Formatt[place] ity of 00:00: g of this [place] 00 note Medical might be Branch different from the original. Dr. Roy, has hearing aids bilateral History of History of Disease Active Overview : Univers cataract cataract 09-27 Formattin ity of 00:00: g of this [place] 00 note Medical might be Branch different from the original. bilateral HTN HTN Disease Active Univers (hypertens (hypertens 07 it y of ion), ion), 00:00: [place] benign benign 00 Medical Branch Macular Macular Disease Active Overview: Univ ers degenerati degenerati 407 [place] ity of on on 00:00: g of this [place] 00 note Medical might be Branch different from the original. follows with Dr. Pham Memory Memory Disease Active Overview: Univer s loss loss 09-27 Formattin ity of 00:00: g of this [place] 00 note Medical might be Branch different from the original. short term, chronic microvasc ular ischemic changes on MRI brain, [facility] [place] PAD PAD Disease Active Overview: Univer s (periphera (periphera 09-27 Formattin ity of l artery l artery 00:00: g of this [place] Elias as disease) disease) 00 note Medica l might be Branch different from the original. legs requiring fem-pop bypass bilateral ly Stroke Stroke Disease Active Univers 09-27 ity of 00:00: [place] 00 Medical Branch Coronary Coronary Disease Active Overview: Un [place] artery artery 09-27 Formattin ity of disease disease 00:00: g of this [place] involving involving 00 note Medi [place] might be Branch coronary coronary different artery of artery of from the [place] original. heart heart stent without without placed angina angina pectoris pectoris Ischemic Ischemic Disease [facility] Anemia Anemia Disease Active Univers 03-16 ity of 00:00: [place] 00 Medical Branch Hypertensi Hypertensi Disease Active M ethodi on on 02-06 [facility] 00 l Hyperchole Hyperchole Disease Active M ethodi steremia steremia 02-06 00:00: Hospita 00 l Coronary Coronary Disease Active [facility] di artery artery 02-06 st disease disease 00:00: Hospita 00 l Stage 3 Stage 3 Disease Active [facility] chronic chronic 8-17 st kidney kidney 00:00: Hospita disease disease 00 l Acute Acute Disease Active [facility] blood loss blood loss 8-17 st anemia anemia 00:00: Hospita 00 l Peripheral Peripheral Disease Active Overview : Methodi arterial arterial 8-[address] disease disease 00:00: g of this Hospi ta 00 note l might be different from the original. Added automatic ally from request for surgery [id number] Coronary Coronary Disease Active Overview: Me thodi artery artery 8-[address] disease disease 00:00: g of this Hospi ta involving involving 00 note l [place] might be heart with heart with different angina angina from the pectoris pectoris original. Added automatic ally from request for surgery [id number] Hyperlipem Hyperlipem Disease Active [facility] Received Received Disease [facility] tissue tissue 8 [facility] plasminoge plasminoge 00:00: Md dical n n 00 Center activator activator (t-PA) (t-PA) less than less than 24 hours 24 hours prior to prior to arrival arrival Acute Acute Disease Active [facility] ischemic ischemic [facility]25 [facility] stroke stroke 00:00: Medical 00 Center Ulcer of Ulcer of Disease Active [facility] great toe, great toe, 6-15 [facility] right, right, 00:00: Medical with with 00 Center unspecifie unspecifie d severity d severity S/P S/P Disease Active [facility] femoral-po femoral-po 6-13 [place] pliteal pliteal 00:00: Medical bypass bypass 00 Center surgery surgery Gout Gout Disease Active [facility] Acute Acute Disease Active [facility] post-opera post-opera 6-13 [facility] tive pain tive pain 00:00: Medi valerie 00 Center Essential Essential Disease Active [facility] hypertensi hypertensi 6-13 [facility] on with on with 00:00: Medical goal blood goal blood 00 Ce nter pressure pressure less than less than 140/90 140/90 NSTEMI NSTEMI Disease Active [facility] (non-ST (non-ST [facility]11 [facility] elevated elevated 00:00: Medica l myocardial myocardial 00 Ce nter infarction infarction ) ) Hypertensi Hypertensi Disease Active [facility] on on 12-01 [facility] 00 Center BRIONNA (acute BRIONNA (acute Disease Active [facility] kidney kidney 12-01 [facility] injury) injury) 00:00: Medical 00 [place] 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 12-01 [facility] 00:[facility] Center Insomnia Insomnia Disease [facility] Center Neuropathy Neuropathy Disease [facility] Center Physical Physical Disease Active [facility] deconditio deconditio 11 [facility] estefany estefany 00:00: Medical 00 [place] Cognitive Cognitive Disease Active [facility] impairment impairment 11 [facility] 00:00: Medical 00 Center Protein Protein Disease Active [facility] calorie calorie 11 [facility] malnutriti malnutriti 00:00: Me dical on on 00 Center Obesity Obesity Disease Active [facility] 6[facility]10 [facility] 00:[facility]: Medical 00 [place] PVD PVD Disease Active [facility] (periphera (periphera 11-28 [facility] l vascular l vascular 00:00: Me dical disease) disease) 00 Center Essential Essential Disease Active [facility] hypertensi hypertensi 11-28 [facility] on on 00:00: Medical 00 Center Hypothyroi Hypothyroi Disease Active [facility] d d 11-28 [facility] 00[facility] Center Coronary Coronary Disease Active [facility] artery artery 11[facility]28 [facility] disease disease 00:00: Medical involving involving 00 Cent er [place] coronary coronary artery of artery of [place] heart with heart with angina angina pectoris pectoris Chest pain Chest pain Disease Active [facility] 00:[facility] Medical 00 Center Hypertensi Hypertensi Disease Active [facility] ve ve 08 [facility] emergency emergency 00:00: [facility] valerie 00 Center Allergies, Adverse Reactions, Alerts Allergy Allergy Status Severity Reaction(s) Onset Inactive Treating Comm ents Source Name Type Date Date Clinician NO KNOWN Allergy Active [facility] NO KNOWN Drug Active Univers ALLERGIE Class ity of S [facility] Social History Social Habit Start Date Stop Date Quantity Comments Source History of tobacco Cigarette Smoker University use [facility] Gender identity [facility] Sexual orientation [facility] History SDOH [facility] Alcohol Frequency Medical Center History SDOH [facility] Alcohol Std Drinks Medica l Center History SDOH [facility] Alcohol Binge Medical Daphne ter Exposure to 2022-11-10 2022-11-20 Not sure [facility] SARS-CoV-2 (event) 00:00:00 14:20:00 [facility] Tobacco use and 2021-09-27 2021-09-27 Smokeless Universit y of exposure 00:00:00 00:00:00 tobacco non-user [facility] History of Social 2019-02-28 2019-02-[address] function 00:00:00 00:00:00 Hospital Alcohol intake 2019-02-12 2019-02-12 Ex-drinker [facility] 00:00:00 00:00:00 (finding) Hospital Cigarettes smoked 2015-11-29 2015-11-[address] [facility] current (pack per 00:00:00 00:00:00 Medical Center day) - Reported Cigarette 2015-11-29 2015-11-[address] [facility] pack-years 00:00:00 00:00:00 [facility] Alcohol Comment 2015-11-29 2015-11-29 NONE LAST [address] [facility] [facility] 00:00:00 00:00:00 [facility] Sex [birth year] [facility] 00:00:00 00:00:00 Hospital Smoking Status Start Date Stop Date Source Smokes tobacco daily 2021-09-27 00:00:00 Univers [facility] Ex-smoker 2019-02-11 00:00:00 2019-02-11 00:00:00 [facility] Medications Ordered Filled Start Stop Current Ordering Indication Dosage Frequency Signature Comments Components Source Medication Medication Date Date Medication? Clinician (SIG) Name Name ferrous Yes 325mg Take 1 Univers sulfate 325 7-24 tablet by ity of mg (65 mg 14:06: [place] 14 the Medical tablet morning Branch and 1 tablet in the evening. ferrous 2023-0 Yes 325mg Take 1 Univers sulfate 325 7-24 tablet by ity of mg (65 mg 14:06: [place] 14 the Medical tablet morning Branch and 1 tablet in the evening. ferrous 2023-0 Yes 325mg Take 1 Univers sulfate 325 7-24 tablet by ity of mg (65 mg 14:06: [place] 14 the Medical tablet morning Branch and 1 tablet in the evening. ferrous 2023-0 Yes 325mg Take 1 [facility] sulfate 325 7-24 tablet by ity of mg (65 mg 14:06: [place] 14 the Medical tablet morning Branch and 1 tablet in the evening. ferrous 2023-0 Yes 325mg Take 1 Univers sulfate 325 7-24 tablet by ity of mg (65 mg 14:06: [place] 14 the Medical tablet morning Branch and 1 tablet in the evening. ferrous 2023-0 Yes 325mg Take 1 Univers sulfate 325 7-24 tablet by ity of mg (65 mg 14:06: [place] 14 the Medical tablet morning Branch and 1 tablet in the evening. ferrous 2023-0 Yes 325mg Take 1 Univers sulfate 325 7-24 tablet by ity of mg (65 mg 14:06: [place] 14 the Medical tablet morning Branch and 1 tablet in the evening. ferrous 2023-0 Yes 325mg Take 1 Univers sulfate 325 7-24 tablet by ity of mg (65 mg 14:06: [place] 14 the Medical tablet morning Branch and 1 tablet in the evening. ferrous 2023-0 Yes 325mg Take 1 Univers sulfate 325 7-24 tablet by ity of mg (65 mg 14:06: [place] 14 the Medical tablet morning Branch and 1 tablet in the evening. ferrous 2023-0 Yes 325mg Take 1 Univers sulfate 325 7-24 tablet by ity of mg (65 mg 14:06: [place] 14 the Medical tablet morning Branch and 1 tablet in the evening. ferrous 2023-0 Yes 325mg Take 1 Univers sulfate 325 7-24 tablet by ity of mg (65 mg 14:06: [place]) 14 the Medical tablet morning Branch and 1 tablet in the evening. ferrous 2023-0 Yes 325mg Take 1 Univers sulfate 325 7-24 tablet by ity of mg (65 mg 14:06: [place] 14 the Medical tablet morning Branch and 1 tablet in the evening. ferrous 2023-0 Yes 325mg Take 1 Univers sulfate 325 7-24 tablet by ity of mg (65 mg 14:06: [place] 14 the Medical tablet morning Branch and 1 tablet in the evening. ferrous 2023-0 Yes 325mg Take 1 Univers sulfate 325 7-24 tablet by ity of mg (65 mg 14:06: [place] 14 the Medical tablet morning Branch and 1 tablet in the evening. ferrous 2023-0 Yes 325mg Take 1 Univers sulfate 325 7-24 tablet by ity of mg (65 mg 14:06: [place] 14 the Medical tablet morning Branch and 1 tablet in the evening. ferrous 2023-0 Yes 325mg Take 1 Univers sulfate 325 7-24 tablet by ity of mg (65 mg 14:06: [place] 14 the Medical tablet morning Branch and 1 tablet in the evening. ferrous 2023-0 Yes 325mg Take 1 Univers sulfate 325 7-24 tablet by ity of mg (65 mg 14:06: [place] 14 the Medical tablet morning Branch and 1 tablet in the evening. furosemide 2023-0 Yes 20mg Take 1 Unive rs 20 mg 7-24 tablet by ity of tablet 14:04: mouth [place] 29 every Medical morning Branch and evening. Pantoprazol 2023-0 Yes 40mg Take 40 mg Univers e 40 mg 7-24 by mouth ity of delayed-rel 14:04: in the [place] [address] morning Medical suspension and 40 mg Bran ch in the evening. furosemide 2023-0 Yes 20mg Take 1 Unive rs 20 mg 7-24 tablet by ity of tablet 14:04: mouth [place] 29 every Medical morning Branch and evening. Pantoprazol 2023-0 Yes 40mg Take 40 mg Univers e 40 mg 7-24 by mouth ity of delayed-rel 14:04: in the [facility] 29 morning Medical suspension and 40 mg Bran ch in the evening. furosemide 2023-0 Yes 20mg Take 1 Unive rs 20 mg 7-24 tablet by ity of tablet 14:04: mouth [place] 29 every Medical morning Branch and evening. Pantoprazol 2023-0 Yes 40mg Take 40 mg Univers e 40 mg 7-24 by mouth ity of delayed-rel 14:04: in the [place] [address] morning Medical suspension and 40 mg Bran ch in the evening. furosemide 2023-0 Yes 20mg Take 1 Unive rs 20 mg 7-24 tablet by ity of tablet 14:04: mouth [place] [address] every Medical morning Branch and evening. Pantoprazol 2023-0 Yes 40mg Take 40 mg Univers e 40 mg 7-24 by mouth ity of delayed-rel 14:04: in the [place] [address] morning Medical suspension and 40 mg Bran ch in the evening. furosemide 2023-0 Yes 20mg Take 1 Unive rs 20 mg 7-24 tablet by ity of tablet 14:04: mouth [place] [address] every Medical morning Branch and evening. Pantoprazol 2023-0 Yes 40mg Take 40 mg Univers e 40 mg 7-24 by mouth ity of delayed-rel 14:04: in the [place] [address] morning Medical suspension and 40 mg Bran ch in the evening. furosemide 2023-0 Yes 20mg Take 1 Unive rs 20 mg 7-24 tablet by ity of tablet 14:04: mouth [place] [address] every Medical morning Branch and evening. Pantoprazol 2023-0 Yes 40mg Take 40 mg Univers e 40 mg 7-24 by mouth ity of delayed-rel 14:04: in the [place] [address] morning Medical suspension and 40 mg Bran ch in the evening. furosemide 2023-0 Yes 20mg Take 1 Unive rs 20 mg 7-24 tablet by ity of tablet 14:04: mouth [place] [address] every Medical morning Branch and evening. Pantoprazol 2023-0 Yes 40mg Take 40 mg Univers e 40 mg 7-24 by mouth ity of delayed-rel 14:04: in the [place] [address] morning Medical suspension and 40 mg Bran ch in the evening. furosemide 2023-0 Yes 20mg Take 1 Unive rs 20 mg 7-24 tablet by ity of tablet 14:04: mouth [place] 29 every Medical morning Branch and evening. Pantoprazol 2023-0 Yes 40mg Take 40 mg Univers e 40 mg 7-24 by mouth ity of delayed-rel 14:04: in the [place] [address] morning Medical suspension and 40 mg Bran ch in the evening. furosemide 2023-0 Yes 20mg Take 1 Unive rs 20 mg 7-24 tablet by ity of tablet 14:04: mouth [place] 29 every Medical morning Branch and evening. Pantoprazol 2023-0 Yes 40mg Take 40 mg Univers e 40 mg 7-24 by mouth ity of delayed-rel 14:04: in the [place] [address] morning Medical suspension and 40 mg Bran ch in the evening. furosemide 2023-0 Yes 20mg Take 1 Unive rs 20 mg 7-24 tablet by ity of tablet 14:04: mouth [place] 29 every Medical morning Branch and evening. Pantoprazol 2023-0 Yes 40mg Take 40 mg Univers e 40 mg 7-24 by mouth ity of delayed-rel 14:04: in the [place] [address] morning Medical suspension and 40 mg Bran ch in the evening. furosemide 2023-0 Yes 20mg Take 1 Unive rs 20 mg 7-24 tablet by ity of tablet 14:04: mouth [place] 29 every Medical morning Branch and evening. Pantoprazol 2023-0 Yes 40mg Take 40 mg Univers e 40 mg 7-24 by mouth ity of delayed-rel 14:04: in the [place] [address] morning Medical suspension and 40 mg Bran ch in the evening. furosemide 2023-0 Yes 20mg Take 1 Unive rs 20 mg 7-24 tablet by ity of tablet 14:04: mouth [place] [address] every Medical morning Branch and evening. Pantoprazol 2023-0 Yes 40mg Take 40 mg Univers e 40 mg 7-24 by mouth ity of delayed-rel 14:04: in the [place] [address] morning Medical suspension and 40 mg Bran ch in the evening. furosemide 2023-0 Yes 20mg Take 1 Unive rs 20 mg 7-24 tablet by ity of tablet 14:04: mouth [place] 29 every Medical morning Branch and evening. Pantoprazol 2023-0 Yes 40mg Take 40 mg Univers e 40 mg 7-24 by mouth ity of delayed-rel 14:04: in the [place] [address] morning Medical suspension and 40 mg Bran ch in the evening. furosemide 2023-0 Yes 20mg Take 1 Unive rs 20 mg 7-24 tablet by ity of tablet 14:04: mouth [place] 29 every Medical morning Branch and evening. Pantoprazol 2023-0 Yes 40mg Take 40 mg Univers e 40 mg 7-24 by mouth ity of delayed-rel 14:04: in the [place] [address] morning Medical suspension and 40 mg Bran ch in the evening. furosemide 3-0 Yes 20mg Take 1 Unive rs 20 mg 7-24 tablet by ity of tablet 14:04: mouth [place] [address] every Medical morning Branch and evening. Pantoprazol 2023-0 Yes 40mg Take 40 mg Univers e 40 mg 7-24 by mouth ity of delayed-rel 14:04: in the [place] [address] morning Medical suspension and 40 mg Bran ch in the evening. furosemide 3-0 Yes 20mg Take 1 Unive rs 20 mg 7-24 tablet by ity of tablet 14:04: mouth [place] [address] every Medical morning Branch and evening. Pantoprazol 2023-0 Yes 40mg Take 40 mg Univers e 40 mg 7-24 by mouth ity of delayed-rel 14:04: in the [place] [address] morning Medical suspension and 40 mg Bran ch in the evening. furosemide 3-0 Yes 20mg Take 1 Unive rs 20 mg 7-24 tablet by ity of tablet 14:04: mouth [place] [address] every Medical morning Branch and evening. Pantoprazol 3-0 Yes 40mg Take 40 mg Univers e 40 mg 7-24 by mouth ity of delayed-rel 14:04: in the [place] [address] morning Medical suspension and 40 mg Bran ch in the evening. DULOXETINE 2022-0 Yes [id number] TAKE ONE Univers 30 mg 7-12 CAPSULE BY ity of capsule 00:00: [place] [address] DAILY Medical Branch DULOXETINE 3-0 Yes [id number] TAKE ONE Univers 30 mg 7-12 CAPSULE BY ity of capsule 00:00: [facility] 00 DAILY Medical Branch DULOXETINE 3-0 Yes [id number] TAKE ONE Univers 30 mg 7-12 CAPSULE BY ity of capsule 00:00: [facility] 00 DAILY Medical Branch DULOXETINE 3-0 Yes [id number] TAKE ONE Univers 30 mg 7-12 CAPSULE BY ity of capsule 00:00: [facility] 00 DAILY Medical Branch DULOXETINE 3-0 Yes [id number] TAKE ONE Univers 30 mg 7-12 CAPSULE BY ity of capsule 00:00: [facility] 00 DAILY Medical Branch DULOXETINE 3-0 Yes [id number] TAKE ONE Univers 30 mg 7-12 CAPSULE BY ity of capsule 00:00: [facility] 00 DAILY Medical Branch DULOXETINE 2023-0 Yes [id number] TAKE ONE Univers 30 mg 7-12 CAPSULE BY ity of capsule 00:00: MOUTH [place] DAILY Medical Branch DULOXETINE 2023-0 Yes [id number] TAKE ONE Univers 30 mg 7-12 CAPSULE BY ity of capsule 00:00: MOUTH [place] DAILY Medical Branch DULOXETINE 2023-0 Yes [id number] TAKE ONE Univers 30 mg 7-12 CAPSULE BY ity of capsule 00:00: [facility] DAILY Medical Branch DULOXETINE 2023-0 Yes [id number] TAKE ONE Univers 30 mg 7-12 CAPSULE BY ity of capsule 00:00: [facility] DAILY Medical Branch DULOXETINE 3-0 Yes [id number] TAKE ONE Univers 30 mg 7-12 CAPSULE BY ity of capsule 00:00: [facility] DAILY Medical Branch DULOXETINE 3-0 Yes [id number] TAKE ONE Univers 30 mg 7-12 CAPSULE BY ity of capsule 00:00: [facility] DAILY Medical Branch DULOXETINE 3-0 Yes [id number] TAKE ONE Univers 30 mg 7-12 CAPSULE BY ity of capsule 00:00: [facility] DAILY Medical Branch DULOXETINE 3-0 Yes [id number] TAKE ONE Univers 30 mg 7-12 CAPSULE BY ity of capsule 00:00: [facility] DAILY Medical Branch DULOXETINE 3-0 Yes [id number] TAKE ONE Univers 30 mg 7-12 CAPSULE BY ity of capsule 00:00: [facility] DAILY Medical Branch DULOXETINE 3-0 Yes [id number] TAKE ONE Univers 30 mg 7-12 CAPSULE BY ity of capsule 00:00: [facility] DAILY Medical Branch DULOXETINE 3-0 Yes [id number] TAKE ONE Univers 30 mg 7-12 CAPSULE BY ity of capsule 00:00: [facility] DAILY Medical Branch DULOXETINE 2023-0 Yes [id number] TAKE ONE Univers 30 mg 7-12 CAPSULE BY ity of capsule 00:00: [facility] DAILY Medical Branch DULOXETINE 3-0 Yes [id number] TAKE ONE Univers 30 mg 7-12 CAPSULE BY ity of capsule 00:00: [facility] DAILY Medical Branch DULOXETINE 2023-0 Yes [id number] TAKE ONE Univers 30 mg 7-12 CAPSULE BY ity of capsule 00:00: [facility] DAILY Medical Branch DULOXETINE 3-0 Yes [id number] TAKE ONE Univers 30 mg 7-12 CAPSULE BY ity of capsule 00:00: MOUTH [place] 00 DAILY Medical Branch DULOXETINE 2022-0 Yes [id number] TAKE ONE Univers 30 mg 7-12 CAPSULE BY ity of capsule 00:00: MOUTH [place] 00 DAILY Medical Branch FAMOTIDINE 2022-0 Yes [id number] 20mg TAKE 1 Univers 20 mg 6-28 TABLET BY ity of tablet 00:00: MOUTH [place] 00 DAILY. Medical Branch ELIQUIS 2.5 2022-0 Yes [id number] TAKE 1 Univers mg tablet 6-28 TABLET BY ity o f 00:00: MOUTH [place] 00 2(TWO) Medical TIMES Branch DAILY FAMOTIDINE 2022-0 Yes [id number] 20mg TAKE 1 Univers 20 mg 6-28 TABLET BY ity of tablet 00:00: MOUTH [place] 00 DAILY. Medical Branch ELIQUIS 2.5 2022-0 Yes [id number] TAKE 1 Univers mg tablet 6-28 TABLET BY ity o f 00:00: MOUTH [place] 00 2(TWO) Medical TIMES Branch DAILY FAMOTIDINE 2022-0 Yes [id number] 20mg TAKE 1 Univers 20 mg 6-28 TABLET BY ity of tablet 00:00: MOUTH [place] 00 DAILY. Medical Branch ELIQUIS 2.5 Yes [id number] TAKE 1 Univers mg tablet 6-28 TABLET BY ity o f 00:00: MOUTH [place] 00 2(TWO) Medical TIMES Branch DAILY FAMOTIDINE 2022-0 Yes [id number] 20mg TAKE 1 Univers 20 mg 6-28 TABLET BY ity of tablet 00:00: MOUTH [place] 00 DAILY. Medical Branch ELIQUIS 2.5 2022-0 Yes [id number] TAKE 1 Univers mg tablet 6-28 TABLET BY ity o f 00:00: MOUTH [place] 00 2(TWO) Medical TIMES Branch DAILY FAMOTIDINE 2022-0 Yes [id number] 20mg TAKE 1 Univers 20 mg 6-28 TABLET BY ity of tablet 00:00: MOUTH [place] 00 DAILY. Medical Branch ELIQUIS 2.5 2022-0 Yes [id number] TAKE 1 Univers mg tablet 6-28 TABLET BY ity o f 00:00: MOUTH [place] 00 2(TWO) Medical TIMES Branch DAILY FAMOTIDINE 2022-0 Yes [id number] 20mg TAKE 1 Univers 20 mg 6-28 TABLET BY ity of tablet 00:00: MOUTH [place] 00 DAILY. Medical Branch ELIQUIS 2.5 2022-0 Yes [id number] TAKE 1 Univers mg tablet 6-28 TABLET BY ity o f 00:00: MOUTH [place] 00 2(TWO) Medical TIMES Branch DAILY FAMOTIDINE 2022-0 Yes [id number] 20mg TAKE 1 Univers 20 mg 6-28 TABLET BY ity of tablet 00:00: MOUTH [place] 00 DAILY. [facility] ELIQUIS 2.5 2022-0 Yes [id number] TAKE 1 [facility] mg tablet 6-28 TABLET BY ity o f 00:00: MOUTH [place] 00 2(TWO) Medical TIMES Branch DAILY ELIQUIS 2.5 2022-0 Yes [id number] TAKE 1 [facility] mg tablet 6-28 TABLET BY ity o f 00:00: MOUTH [place] 00 2(TWO) Medical TIMES Branch DAILY ELIQUIS 2.5 2022- Yes [id number] TAKE 1 [facility] mg tablet 6-28 TABLET BY ity o f 00:00: MOUTH [place] 00 2(TWO) Medical TIMES Branch DAILY ELIQUIS 2.5 2022-0 Yes [id number] TAKE 1 [facility] mg tablet 6-28 TABLET BY ity o f 00:00: MOUTH [place] 00 2(TWO) Medical TIMES Branch DAILY ELIQUIS 2.5 2022- Yes [id number] TAKE 1 [facility] mg tablet 6-28 TABLET BY ity o f 00:00: MOUTH [place] 00 2(TWO) Medical TIMES Branch DAILY ELIQUIS 2.5 2022-0 Yes [id number] TAKE 1 [facility] mg tablet 6-28 TABLET BY ity o f 00:00: MOUTH [place] 00 2(TWO) Medical TIMES Branch DAILY ELIQUIS 2.5 2022-0 Yes [id number] TAKE 1 [facility] mg tablet 6-28 TABLET BY ity o f 00:00: MOUTH [place] 00 2(TWO) Medical TIMES Branch DAILY ELIQUIS 2.5 2022- Yes [id number] TAKE 1 [facility] mg tablet 6-28 TABLET BY ity o f 00:00: MOUTH [place] 00 2(TWO) Medical TIMES Branch DAILY ELIQUIS 2.5 2022-0 Yes [id number] TAKE 1 [facility] mg tablet 6-28 TABLET BY ity o f 00:00: MOUTH [place] 00 2(TWO) Medical TIMES Branch DAILY ELIQUIS 2.5 2022-0 Yes [id number] TAKE 1 [facility] mg tablet 6-28 TABLET BY ity o f 00:00: MOUTH [place] 00 2(TWO) Medical TIMES Branch DAILY ELIQUIS 2.5 2022-0 Yes [id number] TAKE 1 [facility] mg tablet 6-28 TABLET BY ity o f 00:00: MOUTH [place] 00 2(TWO) Medical TIMES Branch DAILY ELIQUIS 2.5 2022-0 Yes [id number] TAKE 1 [facility] mg tablet 6-28 TABLET BY ity o f 00:00: MOUTH [place] 00 2(TWO) Medical TIMES Branch DAILY ELIQUIS 2.5 2022-0 Yes [id number] TAKE 1 [facility] mg tablet 6-28 TABLET BY ity o f 00:00: MOUTH [place] 00 2(TWO) Medical TIMES Branch DAILY ELIQUIS 2.5 2022-0 Yes [id number] TAKE 1 [facility] mg tablet 6-28 TABLET BY ity o f 00:00: MOUTH [place] 00 2(TWO) Medical TIMES Branch DAILY ELIQUIS 2.5 2022-0 Yes [id number] TAKE 1 [facility] mg tablet 6-28 TABLET BY ity o f 00:00: MOUTH [place] 00 2(TWO) Medical TIMES Branch DAILY ELIQUIS 2.5 2022-0 Yes [id number] TAKE 1 [facility] mg tablet 6-28 TABLET BY ity o f 00:00: MOUTH [place] 00 2(TWO) Medical TIMES Branch DAILY ELIQUIS 2.5 2022-0 Yes [id number] TAKE 1 [facility] mg tablet 6-28 TABLET BY ity o f 00:00: MOUTH [place] 00 2(TWO) Medical TIMES Branch DAILY ELIQUIS 2.5 2022-0 Yes [id number] TAKE 1 [facility] mg tablet 6-28 TABLET BY ity o f 00:00: MOUTH [place] 00 2(TWO) Medical TIMES Branch DAILY FAMOTIDINE 2022-2022- No [id number] 20mg TAKE 1 [facility] 20 mg 6-28 07-24 TABLET BY ity of tablet 00:00: 00:00 MOUTH [place] 00 :00 DAILY. Medical Branch FAMOTIDINE 2022-2022- No [id number] 20mg TAKE 1 [facility] 20 mg 6-28 07-24 TABLET BY ity of tablet 00:00: 00:00 MOUTH [place] 00 :00 DAILY. Medical Branch FAMOTIDINE 2022- No [id number] 20mg TAKE 1 [facility] 20 mg 6-28 07-24 TABLET BY ity of tablet 00:00: 00:00 MOUTH [place] 00 :00 DAILY. Medical Branch FAMOTIDINE 2022- No [id number] 20mg TAKE 1 [facility] 20 mg 6-28 07-24 TABLET BY ity of tablet 00:00: 00:00 MOUTH [place] 00 :00 DAILY. [facility] FAMOTIDINE 2022- No [id number] 20mg TAKE 1 [facility] 20 mg 6-28 07-24 TABLET BY ity of tablet 00:00: 00:00 MOUTH [place] 00 :00 DAILY. [facility] FAMOTIDINE 2022- No [id number] 20mg TAKE 1 [facility] 20 mg 6-28 07-24 TABLET BY ity of tablet 00:00: 00:00 MOUTH [place] 00 :00 DAILY. [facility] Yes [id number] 10mg TAKE 1 [facility] 10 mg 6-26 TABLET BY ity of tablet 00:00: MOUTH AT [address] Yes [id number] 10mg TAKE 1 [facility] 10 mg 6-26 TABLET BY ity of tablet 00:00: MOUTH AT [place] [facility] Yes [id number] 10mg TAKE 1 [facility] 10 mg 6-26 TABLET BY ity of tablet 00:00: MOUTH AT [place] [facility] Yes [id number] 10mg TAKE 1 [facility] 10 mg 6-26 TABLET BY ity of tablet 00:00: MOUTH AT [address] Yes [id number] 10mg TAKE 1 [facility] 10 mg 6-26 TABLET BY ity of tablet 00:00: MOUTH AT [address] Yes [id number] 10mg TAKE 1 [facility] 10 mg 6-26 TABLET BY ity of tablet 00:00: MOUTH AT [address] Yes [id number] 10mg TAKE 1 [facility] 10 mg 6-26 TABLET BY ity of tablet 00:00: MOUTH AT [address] Yes [id number] 10mg TAKE 1 [facility] 10 mg 6-26 TABLET BY ity of tablet 00:00: MOUTH AT [address] Yes [id number] 10mg TAKE 1 [facility] 10 mg 6-26 TABLET BY ity of tablet 00:00: [facility] [address] [id number] 10mg TAKE 1 [facility] 10 mg 6-26 TABLET BY ity of tablet 00:00: MOUTH AT [place] [facility] Yes [id number] 10mg TAKE 1 [facility] 10 mg 6-26 TABLET BY ity of tablet 00:00: MOUTH AT [place] [facility] Yes [id number] 10mg TAKE 1 [facility] 10 mg 6-26 TABLET BY ity of tablet 00:00: MOUTH AT [place] [facility] Yes [id number] 10mg TAKE 1 [facility] 10 mg 6-26 TABLET BY ity of tablet 00:00: MOUTH AT [place] [facility] Yes [id number] 10mg TAKE 1 [facility] 10 mg 6-26 TABLET BY ity of tablet 00:00: MOUTH AT [place] [facility] Yes [id number] 10mg TAKE 1 [facility] 10 mg 6-26 TABLET BY ity of tablet 00:00: MOUTH AT [place] [facility] Yes [id number] 10mg TAKE 1 [facility] 10 mg 6-26 TABLET BY ity of tablet 00:00: MOUTH AT [place] [facility] Yes [id number] 10mg TAKE 1 [facility] 10 mg 6-26 TABLET BY ity of tablet 00:00: MOUTH AT [place] [facility] Yes [id number] 10mg TAKE 1 [facility] 10 mg 6-26 TABLET BY ity of tablet 00:00: MOUTH AT [place] [facility] Yes [id number] 10mg TAKE 1 [facility] 10 mg 6-26 TABLET BY ity of tablet 00:00: MOUTH AT [address] Yes [id number] 10mg TAKE 1 [facility] 10 mg 6-26 TABLET BY ity of tablet 00:00: MOUTH AT [address] Yes [id number] 10mg TAKE 1 [facility] 10 mg 6-26 TABLET BY ity of tablet 00:00: MOUTH AT [address] Yes [id number] 10mg TAKE 1 [facility] 10 mg 6-26 TABLET BY ity of tablet 00:00: MOUTH AT [place] BEDTIME Medical Branch MONTELUKAST 2022-0 Yes [id number] 10mg TAKE 1 [facility] 10 mg 6-26 TABLET BY ity of tablet 00:00: MOUTH AT [place] BEDTIME Medical Branch MONTELUKAST 2022-0 Yes [id number] 10mg TAKE 1 [facility] 10 mg 6-26 TABLET BY ity of tablet 00:00: MOUTH AT [place] BEDTIME Medical Branch MONTELUKAST 2022-0 Yes [id number] 10mg TAKE 1 [facility] 10 mg 6-26 TABLET BY ity of tablet 00:00: MOUTH AT [place] BEDTIME Medical Branch ATORVASTATI 0 Yes [id number] 80mg TAKE 1 [facility] N 80 mg 6-16 TABLET BY ity of tablet 00:00: [facility] DAILY Medical Branch LEVOTHYROXI 2022-0 Yes [id number] 75ug TAKE 1 [facility] NE 75 mcg 6-16 TABLET BY ity o f tablet 00:00: MOUTH [place] EVERY Medical MORNING Branch ATORVASTATI 2022-0 Yes [id number] 80mg TAKE 1 [facility] N 80 mg 6-16 TABLET BY ity of tablet 00:00: [facility] DAILY Medical Branch LEVOTHYROXI 2022-0 Yes [id number] 75ug TAKE 1 [facility] NE 75 mcg 6-16 TABLET BY ity o f tablet 00:00: [facility] EVERY Medical MORNING Branch ATORVASTATI 2022-0 Yes [id number] 80mg TAKE 1 [facility] N 80 mg 6-16 TABLET BY ity of tablet 00:00: [facility] DAILY Medical Branch LEVOTHYROXI 2022-0 Yes [id number] 75ug TAKE 1 [facility] NE 75 mcg 6-16 TABLET BY ity o f tablet 00:00: [facility] EVERY Medical MORNING Branch ATORVASTATI 2022-0 Yes [id number] 80mg TAKE 1 [facility] N 80 mg 6-16 TABLET BY ity of tablet 00:00: [facility] DAILY Medical Branch LEVOTHYROXI 2022-0 Yes [id number] 75ug TAKE 1 [facility] NE 75 mcg 6-16 TABLET BY ity o f tablet 00:00: [facility] EVERY Medical MORNING Branch ATORVASTATI 2022-0 Yes [id number] 80mg TAKE 1 [facility] N 80 mg 6-16 TABLET BY ity of tablet 00:00: MOUTH DAILY Medical Branch LEVOTHYROXI 2022-0 Yes [id number] 75ug TAKE 1 [facility] NE 75 mcg 6-16 TABLET BY ity o f tablet 00:00: MOUTH EVERY Medical MORNING Branch ATORVASTATI 0 Yes [id number] 80mg TAKE 1 [facility] N 80 mg 6-16 TABLET BY ity of tablet 00:00: MOUTH DAILY Medical Branch LEVOTHYROXI 0 Yes [id number] 75ug TAKE 1 [facility] NE 75 mcg 6-16 TABLET BY ity o f tablet 00:00: MOUTH EVERY Medical MORNING Branch ATORVASTATI 0 Yes [id number] 80mg TAKE 1 [facility] N 80 mg 6-16 TABLET BY ity of tablet 00:00: MOUTH DAILY Medical Branch LEVOTHYROXI 0 Yes [id number] 75ug TAKE 1 [facility] NE 75 mcg 6-16 TABLET BY ity o f tablet 00:00: MOUTH EVERY Medical MORNING Branch ATORVASTATI 0 Yes [id number] 80mg TAKE 1 [facility] N 80 mg 6-16 TABLET BY ity of tablet 00:00: MOUTH DAILY Medical Branch LEVOTHYROXI 0 Yes [id number] 75ug TAKE 1 [facility] NE 75 mcg 6-16 TABLET BY ity o f tablet 00:00: MOUTH EVERY Medical MORNING Branch ATORVASTATI 0 Yes [id number] 80mg TAKE 1 [facility] N 80 mg 6-16 TABLET BY ity of tablet 00:00: MOUTH DAILY Medical Branch LEVOTHYROXI 2022-0 Yes [id number] 75ug TAKE 1 [facility] NE 75 mcg 6-16 TABLET BY ity o f tablet 00:00: MOUTH EVERY Medical MORNING Branch ATORVASTATI 0 Yes [id number] 80mg TAKE 1 [facility] N 80 mg 6-16 TABLET BY ity of tablet 00:00: MOUTH DAILY Medical Branch LEVOTHYROXI 2022-0 Yes [id number] 75ug TAKE 1 [facility] NE 75 mcg 6-16 TABLET BY ity o f tablet 00:00: MOUTH EVERY Medical MORNING Branch ATORVASTATI 0 Yes [id number] 80mg TAKE 1 [facility] N 80 mg 6-16 TABLET BY ity of tablet 00:00: MOUTH [place] 00 DAILY Medical Branch LEVOTHYROXI 2022-0 Yes [id number] 75ug TAKE 1 [facility] NE 75 mcg 6-16 TABLET BY ity o f tablet 00:00: MOUTH [place] EVERY Medical MORNING Branch ATORVASTATI 2022-0 Yes [id number] 80mg TAKE 1 [facility] N 80 mg 6-16 TABLET BY ity of tablet 00:00: MOUTH DAILY Medical Branch LEVOTHYROXI 2022-0 Yes [id number] 75ug TAKE 1 [facility] NE 75 mcg 6-16 TABLET BY ity o f tablet 00:00: MOUTH [place] EVERY Medical MORNING Branch ATORVASTATI 0 Yes [id number] 80mg TAKE 1 [facility] N 80 mg 6-16 TABLET BY ity of tablet 00:00: MOUTH [place] DAILY Medical Branch LEVOTHYROXI 2022-0 Yes [id number] 75ug TAKE 1 [facility] NE 75 mcg 6-16 TABLET BY ity o f tablet 00:00: MOUTH [place] EVERY Medical MORNING Branch ATORVASTATI 2022-0 Yes [id number] 80mg TAKE 1 [facility] N 80 mg 6-16 TABLET BY ity of tablet 00:00: MOUTH DAILY Medical Branch LEVOTHYROXI 2022-0 Yes [id number] 75ug TAKE 1 [facility] NE 75 mcg 6-16 TABLET BY ity o f tablet 00:00: MOUTH [place] EVERY Medical MORNING Branch ATORVASTATI 2022-0 Yes [id number] 80mg TAKE 1 [facility] N 80 mg 6-16 TABLET BY ity of tablet 00:00: MOUTH [place] DAILY Medical Branch LEVOTHYROXI 2022-0 Yes [id number] 75ug TAKE 1 [facility] NE 75 mcg 6-16 TABLET BY ity o f tablet 00:00: MOUTH [place] EVERY Medical MORNING Branch ATORVASTATI 2022-0 Yes [id number] 80mg TAKE 1 [facility] N 80 mg 6-16 TABLET BY ity of tablet 00:00: MOUTH [place] DAILY Medical Branch LEVOTHYROXI 2022-0 Yes [id number] 75ug TAKE 1 [facility] NE 75 mcg 6-16 TABLET BY ity o f tablet 00:00: MOUTH [place] EVERY Medical MORNING Branch ATORVASTATI 2022-0 Yes [id number] 80mg TAKE 1 [facility] N 80 mg 6-16 TABLET BY ity of tablet 00:00: MOUTH DAILY Medical Branch LEVOTHYROXI 2022-0 Yes [id number] 75ug TAKE 1 [facility] NE 75 mcg 6-16 TABLET BY ity o f tablet 00:00: MOUTH EVERY Medical MORNING Branch ATORVASTATI 2022-0 Yes [id number] 80mg TAKE 1 [facility] N 80 mg 6-16 TABLET BY ity of tablet 00:00: MOUTH DAILY Medical Branch LEVOTHYROXI 2022-0 Yes [id number] 75ug TAKE 1 [facility] NE 75 mcg 6-16 TABLET BY ity o f tablet 00:00: MOUTH EVERY Medical MORNING Branch ATORVASTATI 0 Yes [id number] 80mg TAKE 1 [facility] N 80 mg 6-16 TABLET BY ity of tablet 00:00: [facility] DAILY Medical Branch LEVOTHYROXI 0 Yes [id number] 75ug TAKE 1 [facility] NE 75 mcg 6-16 TABLET BY ity o f tablet 00:00: [facility] EVERY Medical MORNING Branch ATORVASTATI 0 Yes [id number] 80mg TAKE 1 [facility] N 80 mg 6-16 TABLET BY ity of tablet 00:00: MOUTH DAILY Medical Branch LEVOTHYROXI 2022-0 Yes [id number] 75ug TAKE 1 [facility] NE 75 mcg 6-16 TABLET BY ity o f tablet 00:00: [facility] EVERY Medical MORNING Branch ATORVASTATI 0 Yes [id number] 80mg TAKE 1 [facility] N 80 mg 6-16 TABLET BY ity of tablet 00:00: [facility] DAILY Medical Branch LEVOTHYROXI 2022-0 Yes [id number] 75ug TAKE 1 [facility] NE 75 mcg 6-16 TABLET BY ity o f tablet 00:00: [facility] EVERY Medical MORNING Branch ATORVASTATI 0 Yes [id number] 80mg TAKE 1 [facility] N 80 mg 6-16 TABLET BY ity of tablet 00:00: [facility] DAILY Medical Branch LEVOTHYROXI 2022-0 Yes [id number] 75ug TAKE 1 [facility] 75 mcg 6-16 TABLET BY ity o f tablet 00:00: [facility] EVERY Medical MORNING Branch ATORVASTATI 0 Yes [id number] 80mg TAKE 1 [facility] N 80 mg 6-16 TABLET BY ity of tablet 00:00: MOUTH DAILY Medical Branch LEVOTHYROXI 0 Yes [id number] 75ug TAKE 1 [facility] 75 mcg 6-16 TABLET BY ity o f tablet 00:00: MOUTH [place] EVERY Medical MORNING Branch ATORVASTATI 0 Yes [id number] 80mg TAKE 1 [facility] N 80 mg 6-16 TABLET BY ity of tablet 00:00: [facility] DAILY Medical Branch LEVOTHYROXI 0 Yes [id number] 75ug TAKE 1 [facility] NE 75 mcg 6-16 TABLET BY ity o f tablet 00:00: MOUTH [place] EVERY Medical MORNING Branch ATORVASTATI 0 Yes [id number] 80mg TAKE 1 [facility] N 80 mg 6-16 TABLET BY ity of tablet 00:00: [facility] DAILY Medical Branch LEVOTHYROXI 0 Yes [id number] 75ug TAKE 1 [facility] NE 75 mcg 6-16 TABLET BY ity o f tablet 00:00: [facility] EVERY Medical MORNING Branch ATORVASTATI 0 Yes [id number] 80mg TAKE 1 [facility] N 80 mg 6-16 TABLET BY ity of tablet 00:00: MOUTH [place] DAILY Medical Branch LEVOTHYROXI 0 Yes [id number] 75ug TAKE 1 [facility] NE 75 mcg 6-16 TABLET BY ity o f tablet 00:00: [facility] EVERY Medical MORNING Branch ATORVASTATI 0 Yes [id number] 80mg TAKE 1 [facility] N 80 mg 6-16 TABLET BY ity of tablet 00:00: [facility] DAILY Medical Branch LEVOTHYROXI 0 Yes [id number] 75ug TAKE 1 [facility] NE 75 mcg 6-16 TABLET BY ity o f tablet 00:00: [facility] EVERY Medical MORNING Branch azelastine 0 Yes [id number] 1{spray Use 1 [facility] 137 mcg 5-31 } [place] in ity of (0.1 %) 00:00: each [place] nasal spray 00 nostril in [facility] the Branch morning and 1 [place] in the evening. Use in each nostril as directed montelukast 0 Yes [id number] 10mg Take 1 [facility] 10 mg 5-31 tablet by ity of tablet 00:00: mouth at [place] 00 bedtime. Medical Branch azelastine 0 Yes [id number] 1{spray Use 1 [facility] 137 mcg 5-31 } [place] in ity of (0.1 %) 00:00: each [place] nasal spray 00 nostril in [facility] the Branch morning and 1 [place] in the evening. Use in each nostril as directed montelukast 3-0 Yes [id number] 10mg Take 1 [facility] 10 mg 5-31 tablet by ity of tablet 00:00: mouth at [place] 00 bedtime. Medical Branch azelastine 2022-0 Yes [id number] 1{spray Use 1 [facility] 137 mcg 5-31 } [place] in ity of (0.1 %) 00:00: each [place] nasal spray 00 nostril in [facility] the [place] morning and 1 [place] in the evening. Use in each nostril as directed montelukast 2022-0 Yes [id number] 10mg Take 1 [facility] 10 mg 5-31 tablet by ity of tablet 00:00: mouth at [place] 00 bedtime. Medical Branch azelastine 2022-0 Yes [id number] 1{spray Use 1 [facility] 137 mcg 5-31 } [place] in ity of (0.1 %) 00:00: each [place] nasal spray 00 nostril in [facility] the [place] morning and 1 [place] in the evening. Use in each nostril as directed montelukast 2022-0 Yes [id number] 10mg Take 1 [facility] 10 mg 5-31 tablet by ity of tablet 00:00: mouth at [place] 00 bedtime. Medical Branch azelastine 2022-0 Yes [id number] 1{spray Use 1 [facility] 137 mcg 5-31 } [place] in ity of (0.1 %) 00:00: each [place] nasal spray 00 nostril in [facility] the Branch morning and 1 [place] in the evening. Use in each nostril as directed azelastine 3-0 Yes [id number] 1{spray Use 1 [facility] 137 mcg 5-31 } [place] in ity of (0.1 %) 00:00: each [place] nasal spray 00 nostril in [facility] the Branch morning and 1 [place] in the evening. Use in each nostril as directed azelastine 2022-0 Yes [id number] 1{spray Use 1 [facility] 137 mcg 5-31 } [place] in ity of (0.1 %) 00:00: each [place] nasal spray 00 nostril in [facility] the Branch morning and 1 [place] in the evening. Use in each nostril as directed azelastine 2023-0 Yes [id number] 1{spray Use 1 [facility] 137 mcg 5-31 } [place] in ity of (0.1 %) 00:00: each [place] nasal spray 00 nostril in Md dical the Branch morning and 1 [place] in the evening. Use in each nostril as directed azelastine 2023-0 Yes [id number] 1{spray Use 1 [facility] 137 mcg 5-31 } [place] in ity of (0.1 %) 00:00: each [place] nasal spray 00 nostril in Md dical the Branch morning and 1 [place] in the evening. Use in each nostril as directed azelastine 2023-0 Yes [id number] 1{spray Use 1 [facility] 137 mcg 5-31 } [place] in ity of (0.1 %) 00:00: each [place] nasal spray 00 nostril in Md dical the Branch morning and 1 [place] in the evening. Use in each nostril as directed azelastine 2023-0 Yes [id number] 1{spray Use 1 [facility] 137 mcg 5-31 } [place] in ity of (0.1 %) 00:00: each [place] nasal spray 00 nostril in Md dical the Branch morning and 1 [place] in the evening. Use in each nostril as directed azelastine 2023-0 Yes [id number] 1{spray Use 1 [facility] 137 mcg 5-31 } [place] in ity of (0.1 %) 00:00: each [place] nasal spray 00 nostril in Md dical the Branch morning and 1 [place] in the evening. Use in each nostril as directed azelastine 2023-0 Yes [id number] 1{spray Use 1 [facility] 137 mcg 5-31 } [place] in ity of (0.1 %) 00:00: each [place] nasal spray 00 nostril in Md dical the Branch morning and 1 [place] in the evening. Use in each nostril as directed azelastine 2023-0 Yes [id number] 1{spray Use 1 [facility] 137 mcg 5-31 } [place] in ity of (0.1 %) 00:00: each [place] nasal spray 00 nostril in [facility] the Branch morning and 1 [place] in the evening. Use in each nostril as directed azelastine 2023-0 Yes [id number] 1{spray Use 1 [facility] 137 mcg 5-31 } [place] in ity of (0.1 %) 00:00: each [place] nasal spray 00 nostril in Me dical the Branch morning and 1 [place] in the evening. Use in each nostril as directed azelastine 2023-0 Yes [id number] 1{spray Use 1 [facility] 137 mcg 5-31 } [place] in ity of (0.1 %) 00:00: each [place] nasal spray 00 nostril in Me [facility] the Branch morning and 1 [place] in the evening. Use in each nostril as directed azelastine 2023-0 Yes [id number] 1{spray Use 1 [facility] 137 mcg 5-31 } [place] in ity of (0.1 %) 00:00: each [place] nasal spray 00 nostril in Me dical the Branch morning and 1 [place] in the evening. Use in each nostril as directed azelastine 2023-0 Yes [id number] 1{spray Use 1 [facility] 137 mcg 5-31 } [place] in ity of (0.1 %) 00:00: each [place] nasal spray 00 nostril in Me d[facility] the Branch morning and 1 [place] in the evening. Use in each nostril as directed azelastine 2023-0 Yes [id number] 1{spray Use 1 [facility] 137 mcg 5-31 } [place] in ity of (0.1 %) 00:00: each [place] nasal spray 00 nostril in Me [facility] the Branch morning and 1 [place] in the evening. Use in each nostril as directed azelastine 2023-0 Yes [id number] 1{spray Use 1 [facility] 137 mcg 5-31 } [place] in ity of (0.1 %) 00:00: each [place] nasal spray 00 nostril in Me [facility] the Branch morning and 1 [place] in the evening. Use in each nostril as directed azelastine 2023-0 Yes [id number] 1{spray Use 1 [facility] 137 mcg 5-31 } [place] in ity of (0.1 %) 00:00: each [place] nasal spray 00 nostril in [facility] the Branch morning and 1 [place] in the evening. Use in each nostril as directed azelastine 2023-0 Yes [id number] 1{spray Use 1 [facility] 137 mcg 5-31 } [place] in ity of (0.1 %) 00:00: each [place] nasal spray 00 nostril in [facility] the Branch morning and 1 [place] in the evening. Use in each nostril as directed azelastine 2023-0 Yes [id number] 1{spray Use 1 [facility] 137 mcg 5-31 } [place] in ity of (0.1 %) 00:00: each [place] nasal spray 00 nostril in [facility] the Branch morning and 1 [place] in the evening. Use in each nostril as directed azelastine 2023-0 Yes [id number] 1{spray Use 1 [facility] 137 mcg 5-31 } [place] in ity of (0.1 %) 00:00: each [place] nasal spray 00 nostril in Md dical the Branch morning and 1 [place] in the evening. Use in each nostril as directed azelastine 2023-0 Yes [id number] 1{spray Use 1 [facility] 137 mcg 5-31 } [place] in ity of (0.1 %) 00:00: each [place] nasal spray 00 nostril in Md dical the Branch morning and 1 [place] in the evening. Use in each nostril as directed azelastine 2023-0 Yes [id number] 1{spray Use 1 [facility] 137 mcg 5-31 } [place] in ity of (0.1 %) 00:00: each [place] nasal spray 00 nostril in Md dical the Branch morning and 1 [place] in the evening. Use in each nostril as directed azelastine 2023-0 Yes [id number] 1{spray Use 1 [facility] 137 mcg 5-31 } [place] in ity of (0.1 %) 00:00: each [place] nasal spray 00 nostril in Md dical the Branch morning and 1 [place] in the evening. Use in each nostril as directed azelastine 2023-0 Yes [id number] 1{spray Use 1 [facility] 137 mcg 5-31 } [place] in ity of (0.1 %) 00:00: each [place] nasal spray 00 nostril in Md dical the Branch morning and 1 [place] in the evening. Use in each nostril as directed azelastine 3-0 Yes [id number] 1{spray Use 1 [facility] 137 mcg 5-31 } [place] in ity of (0.1 %) 00:00: each [place] nasal spray 00 nostril in [facility] morning and 1 [place] in the evening. Use in each nostril as directed azelastine 2022-0 Yes [id number] 1{spray Use 1 [facility] 137 mcg 5-31 } [place] in ity of (0.1 %) 00:00: each [place] nasal spray 00 nostril in [facility] morning and 1 [place] in the evening. Use in each nostril as directed montelukast 2022-0 Yes [id number] 10mg Take 1 [facility] 10 mg 5-31 tablet by ity of tablet 00:00: mouth at [place] 00 bedtime. [facility] azelastine 2022-0 Yes [id number] 1{spray Use 1 [facility] 137 mcg 5-31 } [place] in ity of (0.1 %) 00:00: each [place] nasal spray 00 nostril in [facility] morning and 1 [place] in the evening. Use in each nostril as directed montelukast 2022-0 Yes [id number] 10mg Take 1 [facility] 10 mg 5-31 tablet by ity of tablet 00:00: mouth at [place] 00 bedtime. [facility] azelastine 2022-0 Yes [id number] 1{spray Use 1 [facility] 137 mcg 5-31 } [place] in ity of (0.1 %) 00:00: each [place] nasal spray 00 nostril in [facility] morning and 1 [place] in the evening. Use in each nostril as directed montelukast 3-0 Yes [id number] 10mg Take 1 [facility] 10 mg 5-31 tablet by ity of tablet 00:00: mouth at [place] 00 bedtime. Medical [place] azelastine 2022-0 Yes [id number] 1{spray Use 1 [facility] 137 mcg 5-31 } [place] in ity of (0.1 %) 00:00: each [place] nasal spray 00 nostril in [facility] morning and 1 [place] in the evening. Use in each nostril as directed montelukast 3-0 Yes [id number] 10mg Take 1 [facility] 10 mg 5-31 tablet by ity of tablet 00:00: mouth at [place] 00 bedtime. Medical Branch azelastine 2022-0 Yes [id number] 1{spray Use 1 [facility] 137 mcg 5-31 } [place] in ity of (0.1 %) 00:00: each [place] nasal spray 00 nostril in [facility] the Branch morning and 1 [place] in the evening. Use in each nostril as directed montelukast 2022-0 Yes [id number] 10mg Take 1 [facility] 10 mg 5-31 tablet by ity of tablet 00:00: mouth at [place] 00 bedtime. [facility] Branch montelukast 2022-0 3- No [id number] 10mg Take 1 [facility] 10 mg 5-31 06-26 tablet by ity of tablet 00:00: 00:00 mouth at [place] 00 :00 bedtime. [facility] levocetiriz 2022-0 3- No [id number] 5mg Take 1 [facility] ine 5 mg 5-31 05-31 tablet by ity o f tablet 00:00: 00:00 mouth [place] 00 :00 every Medical evening. [place] levocetiriz 2022-0 3- No [id number] 5mg Take 1 [facility] ine 5 mg 5-31 05-31 tablet by ity o f tablet 00:00: 00:00 mouth [place] 00 :00 every Medical evening. [place] levocetiriz 2022-0 3- No [id number] 5mg Take 1 [facility] 5 mg 5-31 05-31 tablet by [facility] o f tablet 00:00: 00:00 mouth [place] 00 :00 every Medical evening. [place] galantamine 2023-0 Yes 8mg Take 1 [facility] 8 mg 24 hr 4-28 capsule by [facility] of capsule 00:00: mouth in [place] 00 the Medical morning. [place] galantamine 2023-0 Yes 8mg Take 1 [facility] 8 mg 24 hr 4-28 capsule by [facility] capsule 00:00: mouth in [place] 00 the Medical morning. [place] galantamine 2023-0 Yes 8mg Take 1 [facility] 8 mg 24 hr 4-28 capsule by [facility] of capsule 00:00: mouth in [place] 00 the Medical morning. [place] galantamine 2023-0 Yes 8mg Take 1 [facility] 8 mg 24 hr 4-28 capsule by [facility] capsule 00:00: mouth in [place] 00 the Medical morning. [facility] galantamine 2023-0 Yes 8mg Take 1 [facility] 8 mg 24 hr 4-28 capsule by [facility] capsule 00:00: mouth in [place] the morning. [facility] galantamine 2023-0 Yes 8mg Take 1 [facility] 8 mg 24 hr 4-28 capsule by [facility] capsule 00:00: mouth in [place] the morning. [facility] galantamine 2023-0 Yes 8mg Take 1 [facility] 8 mg 24 hr 4-28 capsule by [facility] capsule 00:00: mouth in [place] the morning. [facility] galantamine 2023-0 Yes 8mg Take 1 [facility] 8 mg 24 hr 4-28 capsule by [facility] capsule 00:00: mouth in [place] the morning. [facility] galantamine 2023-0 Yes 8mg Take 1 [facility] 8 mg 24 hr 4-28 capsule by [facility] capsule 00:00: mouth in [place] the morning. [facility] galantamine 2023-0 Yes 8mg Take 1 [facility] 8 mg 24 hr 4-28 capsule by [facility] capsule 00:00: mouth in [place] the morning. [facility] galantamine 2023-0 Yes 8mg Take 1 [facility] 8 mg 24 hr 4-28 capsule by [facility] capsule 00:00: mouth in [place] the morning. [facility] galantamine 2023-0 Yes 8mg Take 1 [facility] 8 mg 24 hr 4-28 capsule by [facility] capsule 00:00: mouth in [place] the morning. [facility] galantamine 2023-0 Yes 8mg Take 1 [facility] 8 mg 24 hr 4-28 capsule by [facility] capsule 00:00: mouth in [place] the morning. [facility] galantamine 2023-0 Yes 8mg Take 1 [facility] 8 mg 24 hr 4-28 capsule by [facility] capsule 00:00: mouth in [place] the Medical morning. [facility] galantamine 2023-0 Yes 8mg Take 1 [facility] 8 mg 24 hr 4-28 capsule by [facility] capsule 00:00: mouth in [place] the Medical morning. [facility] galantamine 2023-0 Yes 8mg Take 1 [facility] 8 mg 24 hr 4-28 capsule by [facility] capsule 00:00: mouth in [place] the Medical morning. [facility] galantamine 2023-0 Yes 8mg Take 1 [facility] 8 mg 24 hr 4-28 capsule by [facility] capsule 00:00: mouth in [place] the Medical morning. [facility] galantamine 2023-0 Yes 8mg Take 1 [facility] 8 mg 24 hr 4-28 capsule by [facility] capsule 00:00: mouth in [place] the morning. [facility] galantamine 2023-0 Yes 8mg Take 1 [facility] 8 mg 24 hr 4-28 capsule by [facility] capsule 00:00: mouth in [place] the morning. [facility] galantamine 2023-0 Yes 8mg Take 1 [facility] 8 mg 24 hr 4-28 capsule by [facility] capsule 00:00: mouth in [place] the morning. [facility] galantamine 2023-0 Yes 8mg Take 1 [facility] 8 mg 24 hr 4-28 capsule by [facility] capsule 00:00: mouth in [place] the morning. [facility] galantamine 2023-0 Yes 8mg Take 1 [facility] 8 mg 24 hr 4-28 capsule by [facility] capsule 00:00: mouth in [place] the morning. [facility] galantamine 2023-0 Yes 8mg Take 1 [facility] 8 mg 24 hr 4-28 capsule by [facility] capsule 00:00: mouth in [place] the morning. [facility] galantamine 2023-0 Yes 8mg Take 1 [facility] 8 mg 24 hr 4-28 capsule by [facility] capsule 00:00: mouth in [place] the morning. [facility] galantamine 2023-0 Yes 8mg Take 1 [facility] 8 mg 24 hr 4-28 capsule by [facility] capsule 00:00: mouth in [place] the Medical morning. [facility] galantamine 2023-0 Yes 8mg Take 1 [facility] 8 mg 24 hr 4-28 capsule by [facility] capsule 00:00: mouth in [place] the Medical morning. [facility] galantamine 2023-0 Yes 8mg Take 1 [facility] 8 mg 24 hr 4-28 capsule by [facility] capsule 00:00: mouth in [place] the Medical morning. [facility] galantamine 2023-0 Yes 8mg Take 1 [facility] 8 mg 24 hr 4-28 capsule by [facility] capsule 00:00: mouth in [place] the Medical morning. [facility] galantamine 2023-0 Yes 8mg Take 1 [facility] 8 mg 24 hr 4-28 capsule by [facility] capsule 00:00: mouth in [place] the Medical morning. [facility] galantamine 2023-0 Yes 8mg Take 1 [facility] 8 mg 24 hr 4-28 capsule by [facility] capsule 00:00: mouth in [place] the morning. [facility] galantamine 2023-0 Yes 8mg Take 1 [facility] 8 mg 24 hr 4-28 capsule by [facility] capsule 00:00: mouth in [place] the morning. [facility] galantamine 2023-0 Yes 8mg Take 1 [facility] 8 mg 24 hr 4-28 capsule by [facility] capsule 00:00: mouth in [place] the morning. [facility] galantamine 2023-0 Yes 8mg Take 1 [facility] 8 mg 24 hr 4-28 capsule by [facility] capsule 00:00: mouth in [place] the morning. [facility] galantamine 2023-0 Yes 8mg Take 1 [facility] 8 mg 24 hr 4-28 capsule by [facility] capsule 00:00: mouth in [place] the morning. [facility] galantamine 2023-0 Yes 8mg Take 1 [facility] 8 mg 24 hr 4-28 capsule by [facility] capsule 00:00: mouth in [place] the morning. [facility] galantamine 2023-0 Yes 8mg Take 1 [facility] 8 mg 24 hr 4-28 capsule by [facility] capsule 00:00: mouth in [place] the morning. [facility] mesalamine 2021- Yes [id number] 2.4g Take 2 [facility] 1.2 gram EC 0-31 tablets by it y of tablet 00:00: mouth in [place] the morning. [facility] mesalamine 2021- Yes [id number] 2.4g Take 2 [facility] 1.2 gram EC 0-31 tablets by it y of tablet 00:00: mouth in [place] the morning. [facility] mesalamine 2021- Yes [id number] 2.4g Take 2 [facility] 1.2 gram EC 0-31 tablets by it y of tablet 00:00: mouth in [place] the morning. [facility] mesalamine 2021- Yes [id number] 2.4g Take 2 [facility] 1.2 gram EC 0-31 tablets by it y of tablet 00:00: mouth in [place] the morning. [facility] mesalamine 2021- Yes [id number] 2.4g Take 2 [facility] 1.2 gram EC 0-31 tablets by it y of tablet 00:00: mouth in [place] the Medical morning. [facility] mesalamine 2021-06 Yes [id number] 2.4g Take 2 [facility] 1.2 gram EC 0-31 tablets by it y of tablet 00:00: mouth in [place] the Medical morning. [facility] mesalamine 2021-06 Yes [id number] 2.4g Take 2 [facility] 1.2 gram EC 0-31 tablets by it y of tablet 00:00: mouth in [place] the Medical morning. [facility] mesalamine 2021-06 Yes [id number] 2.4g Take 2 [facility] 1.2 gram EC 0-31 tablets by it y of tablet 00:00: mouth in [place] the Medical morning. [facility] mesalamine 2021-06 Yes [id number] 2.4g Take 2 [facility] 1.2 gram EC 0-31 tablets by it y of tablet 00:00: mouth in [place] the Medical morning. [facility] mesalamine 2021-06 Yes [id number] 2.4g Take 2 [facility] 1.2 gram EC 0-31 tablets by it y of tablet 00:00: mouth in [place] the Medical morning. [facility] mesalamine 2021-06 Yes [id number] 2.4g Take 2 [facility] 1.2 gram EC 0-31 tablets by it y of tablet 00:00: mouth in [place] the Medical morning. [facility] mesalamine 2021-06 Yes [id number] 2.4g Take 2 [facility] 1.2 gram EC 0-31 tablets by it y of tablet 00:00: mouth in [place] the Medical morning. [facility] mesalamine 2021-06 Yes [id number] 2.4g Take 2 [facility] 1.2 gram EC 0-31 tablets by it y of tablet 00:00: mouth in [place] the Medical morning. [facility] mesalamine 2021-06 Yes [id number] 2.4g Take 2 [facility] 1.2 gram EC 0-31 tablets by it y of tablet 00:00: mouth in [place] the Medical morning. [facility] mesalamine 2021-06 Yes [id number] 2.4g Take 2 [facility] 1.2 gram EC 0-31 tablets by it y of tablet 00:00: mouth in [place] the Medical morning. [facility] mesalamine 2021-06 Yes [id number] 2.4g Take 2 [facility] 1.2 gram EC 0-31 tablets by it y of tablet 00:00: mouth in [place] the Medical morning. [facility] mesalamine 2021-06 Yes [id number] 2.4g Take 2 [facility] 1.2 gram EC 0-31 tablets by it y of tablet 00:00: mouth in [place] the Medical morning. [facility] mesalamine 2021-06 Yes [id number] 2.4g Take 2 [facility] 1.2 gram EC 0-31 tablets by it y of tablet 00:00: mouth in [place] the Medical morning. [facility] mesalamine 2021-06 Yes [id number] 2.4g Take 2 [facility] 1.2 gram EC 0-31 tablets by it y of tablet 00:00: mouth in [place] the Medical morning. [facility] mesalamine 2021-06 Yes [id number] 2.4g Take 2 [facility] 1.2 gram EC 0-31 tablets by it y of tablet 00:00: mouth in [place] the Medical morning. [facility] mesalamine 2021-06 Yes [id number] 2.4g Take 2 [facility] 1.2 gram EC 0-31 tablets by it y of tablet 00:00: mouth in [place] the Medical morning. [facility] mesalamine 2021-06 Yes [id number] 2.4g Take 2 [facility] 1.2 gram EC 0-31 tablets by it y of tablet 00:00: mouth in [place] the Medical morning. [facility] mesalamine 2021-06 Yes [id number] 2.4g Take 2 [facility] 1.2 gram EC 0-31 tablets by it y of tablet 00:00: mouth in [place] the Medical morning. [facility] mesalamine 2021-06 Yes [id number] 2.4g Take 2 [facility] 1.2 gram EC 0-31 tablets by it y of tablet 00:00: mouth in [place] the Medical morning. [facility] mesalamine 2021-06 Yes [id number] 2.4g Take 2 [facility] 1.2 gram EC 0-31 tablets by it y of tablet 00:00: mouth in [place] the Medical morning. [facility] mesalamine 2021-06 Yes [id number] 2.4g Take 2 [facility] 1.2 gram EC 0-31 tablets by it y of tablet 00:00: mouth in [place] the Medical morning. [facility] mesalamine 2021-06 Yes [id number] 2.4g Take 2 [facility] 1.2 gram EC 0-31 tablets by it y of tablet 00:00: mouth in [place] 00 the Medical morning. [place] mesalamine 2021-06 Yes [id number] 2.4g Take 2 [facility] 1.2 gram EC 0-31 tablets by it y of tablet 00:00: mouth in [place] 00 the Medical morning. [place] mesalamine 2021-06- No [id number] 2.4g Take 2 [facility] 1.2 gram EC 0-31 07-24 tablets by i ty of tablet 00:00: 00:00 mouth in [place] 00 :00 the Medical morning. [facility] mesalamine 2021-06- No [id number] 2.4g Take 2 [facility] 1.2 gram EC 0-31 07-24 tablets by i ty of tablet 00:00: 00:00 mouth in [place] 00 :00 the Medical morning. [place] mesalamine 2021-06- No [id number] 2.4g Take 2 [facility] 1.2 gram EC 0-31 07-24 tablets by i ty of tablet 00:00: 00:00 mouth in [place] 00 :00 the Medical morning. [place] mesalamine 2021-06- No [id number] 2.4g Take 2 [facility] 1.2 gram EC 0-31 07-24 tablets by i ty of tablet 00:00: 00:00 mouth in [place] 00 :00 the Medical morning. [place] mesalamine 2021-06- No [id number] 2.4g Take 2 [facility] 1.2 gram EC 0-31 07-24 tablets by i ty of tablet 00:00: 00:00 mouth in [place] 00 :00 the Medical morning. [place] mesalamine 2021-06- No [id number] 2.4g Take 2 [facility] 1.2 gram EC 0-31 07-24 tablets by i ty of tablet 00:00: 00:00 mouth in [place] 00 :00 the Medical morning. [facility] amLODIPine 2021-06 Yes [id number] 10mg Take 1 [facility] 10 mg 0-28 tablet by [facility] tablet 00:00: mouth in [place] 00 the Medical morning. [facility] amLODIPine 2021-06 Yes [id number] 10mg Take 1 [facility] 10 mg 0-28 tablet by [facility] of tablet 00:00: mouth in [place] 00 the Medical morning. [facility] amLODIPine 2021-06 Yes [id number] 10mg Take 1 [facility] 10 mg 0-28 tablet by [facility] of tablet 00:00: mouth in [place] the Medical morning. [facility] amLODIPine 2021-06 Yes [id number] 10mg Take 1 [facility] 10 mg 0-28 tablet by [facility] of tablet 00:00: mouth in [place] the Medical morning. [facility] amLODIPine 2021-06 Yes [id number] 10mg Take 1 [facility] 10 mg 0-28 tablet by [facility] of tablet 00:00: mouth in [place] the Medical morning. [facility] amLODIPine 2021-06 Yes [id number] 10mg Take 1 [facility] 10 mg 0-28 tablet by [facility] of tablet 00:00: mouth in [place] the Medical morning. [facility] amLODIPine 2021-06 Yes [id number] 10mg Take 1 [facility] 10 mg 0-28 tablet by [facility] tablet 00:00: mouth in [place] the Medical morning. [facility] amLODIPine 2021-06 Yes [id number] 10mg Take 1 [facility] 10 mg 0-28 tablet by [facility] of tablet 00:00: mouth in [place] the Medical morning. [facility] amLODIPine 2021-06 Yes [id number] 10mg Take 1 [facility] 10 mg 0-28 tablet by [facility] tablet 00:00: mouth in [place] the Medical morning. [facility] amLODIPine 2021-06 Yes [id number] 10mg Take 1 [facility] 10 mg 0-28 tablet by [facility] tablet 00:00: mouth in [place] the Medical morning. [facility] amLODIPine 2021-06 Yes [id number] 10mg Take 1 [facility] 10 mg 0-28 tablet by [facility] tablet 00:00: mouth in [place] the Medical morning. [facility] amLODIPine 2021-06 Yes [id number] 10mg Take 1 [facility] 10 mg 0-28 tablet by [facility] tablet 00:00: mouth in [place] the Medical morning. [facility] amLODIPine 2021- Yes [id number] 10mg Take 1 [facility] 10 mg 0-28 tablet by [facility] tablet 00:00: mouth in [place] the Medical morning. [facility] amLODIPine 2021- Yes [id number] 10mg Take 1 [facility] 10 mg 0-28 tablet by [facility] tablet 00:00: mouth in [place] the Medical morning. [facility] amLODIPine 2021- Yes [id number] 10mg Take 1 [facility] 10 mg 0-28 tablet by [facility] of tablet 00:00: mouth in [place] the Medical morning. [facility] amLODIPine 2021-06 Yes [id number] 10mg Take 1 [facility] 10 mg 0-28 tablet by [facility] of tablet 00:00: mouth in [place] the Medical morning. [facility] amLODIPine 2021- Yes [id number] 10mg Take 1 [facility] 10 mg 0-28 tablet by [facility] tablet 00:00: mouth in [place] the Medical morning. [facility] amLODIPine 2021- Yes [id number] 10mg Take 1 [facility] 10 mg 0-28 tablet by [facility] tablet 00:00: mouth in [place] the Medical morning. [facility] amLODIPine 2021- Yes [id number] 10mg Take 1 [facility] 10 mg 0-28 tablet by [facility] tablet 00:00: mouth in [place] the Medical morning. [facility] amLODIPine 2021- Yes [id number] 10mg Take 1 [facility] 10 mg 0-28 tablet by [facility] of tablet 00:00: mouth in [place] the Medical morning. [facility] amLODIPine 2021- Yes [id number] 10mg Take 1 [facility] 10 mg 0-28 tablet by [facility] of tablet 00:00: mouth in [place] the Medical morning. [facility] amLODIPine 2021- Yes [id number] 10mg Take 1 [facility] 10 mg 0-28 tablet by [facility] tablet 00:00: mouth in [place] the Medical morning. [facility] amLODIPine 2021- Yes [id number] 10mg Take 1 [facility] 10 mg 0-28 tablet by [facility] tablet 00:00: mouth in [place] the Medical morning. [facility] amLODIPine 2021- Yes [id number] 10mg Take 1 [facility] 10 mg 0-28 tablet by [facility] tablet 00:00: mouth in [place] the Medical morning. [facility] amLODIPine 2021- Yes [id number] 10mg Take 1 [facility] 10 mg 0-28 tablet by [facility] tablet 00:00: mouth in [place] the Medical morning. [facility] amLODIPine 2021-1 Yes [id number] 10mg Take 1 [facility] 10 mg 0-28 tablet by [facility] tablet 00:00: mouth in [place] the Medical morning. [facility] amLODIPine 2021- Yes [id number] 10mg Take 1 [facility] 10 mg 0-28 tablet by [facility] tablet 00:00: mouth in [place] the Medical morning. [facility] amLODIPine 2021- Yes [id number] 10mg Take 1 [facility] 10 mg 0-28 tablet by [facility] tablet 00:00: mouth in [place] the Medical morning. [facility] amLODIPine 2021-1 Yes [id number] 10mg Take 1 [facility] 10 mg 0-28 tablet by [facility] of tablet 00:00: mouth in [place] the Medical morning. [facility] amLODIPine 2021-1 Yes [id number] 10mg Take 1 [facility] 10 mg 0-28 tablet by [facility] of tablet 00:00: mouth in [place] the Medical morning. [facility] amLODIPine 2021- Yes [id number] 10mg Take 1 [facility] 10 mg 0-28 tablet by [facility] of tablet 00:00: mouth in [place] the Medical morning. [facility] amLODIPine 2021-1 Yes [id number] 10mg Take 1 [facility] 10 mg 0-28 tablet by [facility] tablet 00:00: mouth in [place] the Medical morning. [facility] amLODIPine 2021-1 Yes [id number] 10mg Take 1 [facility] 10 mg 0-28 tablet by [facility] of tablet 00:00: mouth in [place] the Medical morning. [facility] furosemide 2021-1 Yes [id number] 20mg Take 1 [facility] 20 mg 0-28 tablet by [facility] tablet 00:00: mouth in [place] the Medical morning. [facility] amLODIPine 2021-1 Yes [id number] 10mg Take 1 [facility] 10 mg 0-28 tablet by [facility] of tablet 00:00: mouth in [place] the Medical morning. [facility] furosemide 2021-1 Yes [id number] 20mg Take 1 [facility] 20 mg 0-28 tablet by [facility] of tablet 00:00: mouth in [place] the Medical morning. [facility] amLODIPine 2021-1 Yes [id number] 10mg Take 1 [facility] 10 mg 0-28 tablet by [facility] of tablet 00:00: mouth in [place] the Medical morning. [facility] furosemide 2021-1 Yes [id number] 20mg Take 1 [facility] 20 mg 0-28 tablet by [facility] of tablet 00:00: mouth in [place] 00 the Medical morning. [facility] amLODIPine 2021-1 Yes [id number] 10mg Take 1 [facility] 10 mg 0-28 tablet by [facility] tablet 00:00: mouth in [place] 00 the Medical morning. [facility] furosemide 2021-1 Yes [id number] 20mg Take 1 [facility] 20 mg 0-28 tablet by [facility] of tablet 00:00: mouth in [place] 00 the Medical morning. [facility] amLODIPine 2021-1 Yes [id number] 10mg Take 1 [facility] 10 mg 0-28 tablet by [facility] of tablet 00:00: mouth in [place] 00 the Medical morning. [facility] furosemide 2021-1 Yes [id number] 20mg Take 1 [facility] 20 mg 0-28 tablet by [facility] of tablet 00:00: mouth in [place] 00 the Medical morning. [facility] amLODIPine 2021- Yes [id number] 10mg Take 1 [facility] 10 mg 0-28 tablet by [facility] tablet 00:00: mouth in [place] 00 the Medical morning. [facility] furosemide 2021-1 Yes [id number] 20mg Take 1 [facility] 20 mg 0-28 tablet by [facility] tablet 00:00: mouth in [place] 00 the Medical morning. [facility] amLODIPine 2021- Yes [id number] 10mg Take 1 [facility] 10 mg 0-28 tablet by [facility] tablet 00:00: mouth in [place] the Medical morning. [facility] furosemide 2021-1 Yes [id number] 20mg Take 1 [facility] 20 mg 0-28 tablet by [facility] of tablet 00:00: mouth in [place] the Medical morning. [facility] amLODIPine 2021- Yes [id number] 10mg Take 1 [facility] 10 mg 0-28 tablet by [facility] of tablet 00:00: mouth in [place] the Medical morning. [facility] furosemide 2021-1 Yes [id number] 20mg Take 1 [facility] 20 mg 0-28 tablet by [facility] of tablet 00:00: mouth in [place] the Medical morning. [facility] amLODIPine 2021-1 Yes [id number] 10mg Take 1 [facility] 10 mg 0-28 tablet by [facility] tablet 00:00: mouth in [place] 00 the Medical morning. [facility] furosemide 2021-1 Yes [id number] 20mg Take 1 [facility] 20 mg 0-28 tablet by [facility] tablet 00:00: mouth in [place] 00 the Medical morning. [facility] amLODIPine 2021-1 Yes [id number] 10mg Take 1 [facility] 10 mg 0-28 tablet by [facility] tablet 00:00: mouth in [place] 00 the Medical morning. [facility] amLODIPine 2021-1 Yes [id number] 10mg Take 1 [facility] 10 mg 0-28 tablet by [facility] tablet 00:00: mouth in [place] 00 the Medical morning. [facility] amLODIPine 2021-06 Yes [id number] 10mg Take 1 [facility] 10 mg 0-28 tablet by [facility] of tablet 00:00: mouth in [place] 00 the Medical morning. [facility] amLODIPine 2021-1 Yes [id number] 10mg Take 1 [facility] 10 mg 0-28 tablet by [facility] of tablet 00:00: mouth in [place] 00 the Medical morning. [facility] amLODIPine 2021-06 Yes [id number] 10mg Take 1 [facility] 10 mg 0-28 tablet by [facility] of tablet 00:00: mouth in [place] 00 the Medical morning. [facility] furosemide 2021-2022- No [id number] 20mg Take 1 [facility] 20 mg 0-28 05-31 tablet by [facility] of tablet 00:00: 00:00 mouth in [place] 00 :00 the Medical morning. [facility] furosemide 2021-2022- No [id number] 20mg Take 1 [facility] 20 mg 0-28 05-31 tablet by [facility] of tablet 00:00: 00:00 mouth in [place] 00 :00 the Medical morning. [facility] furosemide 2021-2022- No [id number] 20mg Take 1 [facility] 20 mg 0-28 05-31 tablet by [facility] of tablet 00:00: 00:00 mouth in [place] 00 :00 the Medical morning. [facility] furosemide 2021-2022- No [id number] 20mg Take 1 [facility] 20 mg 0-28 05-31 tablet by [facility] of tablet 00:00: 00:00 mouth in [place] 00 :00 the Medical morning. [facility] furosemide 2021-2022- No [id number] 20mg Take 1 [facility] 20 mg 0-28 05-31 tablet by [facility] of tablet 00:00: 00:00 mouth in [place] 00 :00 the Medical morning. [facility] amLODIPine 2021-0 Yes [id number] 10mg Take 1 [facility] 10 mg 8-08 tablet by [facility] tablet 00:00: mouth in [place] 00 the Medical morning. [facility] amLODIPine 2021-0 Yes [id number] 10mg Take 1 [facility] 10 mg 8-08 tablet by [facility] tablet 00:00: mouth in [place] 00 the Medical morning. [facility] amLODIPine 2021-0 Yes [id number] 10mg Take 1 [facility] 10 mg 8-08 tablet by [facility] tablet 00:00: mouth in [place] 00 the Medical morning. [facility] amLODIPine 2-0 Yes [id number] 10mg Take 1 [facility] 10 mg 8-08 tablet by [facility] tablet 00:00: mouth in [place] 00 the Medical morning. [facility] amLODIPine 2-0 Yes [id number] 10mg Take 1 [facility] 10 mg 8-08 tablet by [facility] tablet 00:00: mouth in [place] 00 the Medical morning. [facility] amLODIPine 2-0 Yes [id number] 10mg Take 1 [facility] 10 mg 8-08 tablet by [facility] tablet 00:00: mouth in [place] 00 the Medical morning. [facility] amLODIPine 2-0 Yes [id number] 10mg Take 1 [facility] 10 mg 8-08 tablet by [facility] of tablet 00:00: mouth in [place] 00 the Medical morning. [facility] amLODIPine 2-0 Yes [id number] 10mg Take 1 [facility] 10 mg 8-08 tablet by [facility] tablet 00:00: mouth in [place] 00 the Medical morning. [facility] amLODIPine 2-0 Yes [id number] 10mg Take 1 [facility] 10 mg 8-08 tablet by [facility] of tablet 00:00: mouth in [place] 00 the Medical morning. [facility] amLODIPine 2-0 Yes [id number] 10mg Take 1 [facility] 10 mg 8-08 tablet by [facility] of tablet 00:00: mouth in [place] 00 the Medical morning. [facility] amLODIPine 2-0 2- No [id number] 10mg Take 1 [facility] 10 mg 8-08 10-28 tablet by [facility] of tablet 00:00: 00:00 mouth in [place] 00 :00 the Medical morning. [facility] amLODIPine 2-0 2- No [id number] 10mg Take 1 [facility] 10 mg 8-08 10-28 tablet by [facility] of tablet 00:00: 00:00 mouth in [place] 00 :00 the Medical morning. [facility] memantine 5 2021-0 Yes 5mg Take 5 mg [facility] mg tablet 8-01 by mouth [facility]y of 15:13: daily. [address] memantine 5 2021-0 Yes 5mg Take 5 mg [facility] mg tablet 8-01 by mouth [facility]y of 15:13: daily. [address] memantine 5 2021-0 Yes 5mg Take 5 mg [facility] mg tablet 8-01 by mouth [facility] of 15:13: daily. [address] memantine 5 2021-0 Yes 5mg Take 5 mg [facility] mg tablet 8-01 by mouth [facility] of 15:13: daily. [address] memantine 5 2021-0 Yes 5mg Take 5 mg [facility] mg tablet 8-01 by mouth [facility] of 15:13: daily. [address] memantine 5 2021-0 Yes 5mg Take 5 mg [facility] mg tablet 8-01 by mouth [facility] of 15:13: daily. [address] memantine 5 2021-0 Yes 5mg Take 5 mg [facility] mg tablet 8-01 by mouth [facility]y of 15:13: daily. [address] memantine 5 2021-0 Yes 5mg Take 5 mg [facility] mg tablet 8-01 by mouth [facility]y of 15:13: daily. [address] memantine 5 2021-0 Yes 5mg Take 5 mg [facility] mg tablet 8-01 by mouth [facility]y of 15:13: daily. [address] memantine 5 2021-0 Yes 5mg Take 5 mg [facility] mg tablet 8-01 by mouth [facility] of 15:13: daily. [address] memantine 5 2021-0 Yes 5mg Take 5 mg [facility] mg tablet 8-01 by mouth [facility]y of 15:13: daily. [address] memantine 5 2021-0 Yes 5mg Take 5 mg [facility] mg tablet 8-01 by mouth [facility]y of 15:13: daily. [address] memantine 5 2021-0 Yes 5mg Take 5 mg [facility] mg tablet 8-01 by mouth [facility]y of 15:13: daily. [address] memantine 5 2021-0 Yes 5mg Take 5 mg [facility] mg tablet 8-01 by mouth [facility]y of 15:13: daily. [address] memantine 5 2021-0 Yes 5mg Take 5 mg [facility] mg tablet 8-01 by mouth [facility]y of 15:13: daily. [address] memantine 5 2021-0 Yes 5mg Take 5 mg [facility] mg tablet 8-01 by mouth [facility]y of 15:13: daily. [address] memantine 5 2021-0 Yes 5mg Take 5 mg [facility] mg tablet 8-01 by mouth [facility] of 15:13: daily. [address] memantine 5 2021-0 Yes 5mg Take 5 mg [facility] mg tablet 8-01 by mouth [facility]y of 15:13: daily. [address] memantine 5 2021-0 Yes 5mg Take 5 mg [facility] mg tablet 8-01 by mouth [facility]y of 15:13: daily. [address] memantine 5 2021-0 Yes 5mg Take 5 mg [facility] mg tablet 8-01 by mouth [facility]y of 15:13: daily. [address] memantine 5 2021-0 Yes 5mg Take 5 mg [facility] mg tablet 8-01 by mouth [facility]y of 15:13: daily. [address] memantine 5 2021-0 Yes 5mg Take 5 mg [facility] mg tablet 8-01 by mouth [facility]y of 15:13: daily. [address] memantine 5 2021-0 Yes 5mg Take 5 mg [facility] mg tablet 8-01 by mouth [facility]y of 15:13: daily. [address] memantine 5 2021-0 Yes 5mg Take 5 mg [facility] mg tablet 8-01 by mouth [facility]y of 15:13: daily. [address] memantine 5 2021-0 Yes 5mg Take 5 mg [facility] mg tablet 8-01 by mouth [facility]y of 15:13: daily. [address] memantine 5 2021-0 Yes 5mg Take 5 mg [facility] mg tablet 8-01 by mouth [facility]y of 15:13: daily. [address] memantine 5 2021-0 Yes 5mg Take 5 mg [facility] mg tablet 8-01 by mouth [facility]y of 15:13: daily. [address] memantine 5 2021-0 Yes 5mg Take 5 mg [facility] mg tablet 8-01 by mouth [facility]y of 15:13: daily. [address] memantine 5 2021-0 Yes 5mg Take 5 mg [facility] mg tablet 8-01 by mouth [facility]y of 15:13: daily. [address] memantine 5 2021-0 Yes 5mg Take 5 mg [facility] mg tablet 8-01 by mouth [facility]y of 15:13: daily. [address] memantine 5 2021-0 Yes 5mg Take 5 mg [facility] mg tablet 8-01 by mouth [facility]y of 15:13: daily. [address] memantine 5 2021-0 Yes 5mg Take 5 mg [facility] mg tablet 8-01 by mouth ity of 15:13: daily. [address] memantine 5 2021-0 Yes 5mg Take 5 mg U nivers mg tablet 8-01 by mouth ity of 15:13: daily. [address] memantine 5 2021-0 Yes 5mg Take 5 mg [facility] mg tablet 8-01 by mouth ity of 15:13: daily. [address] memantine 5 2021-0 Yes 5mg Take 5 mg [facility] mg tablet 8-01 by mouth ity of 15:13: daily. [address] memantine 5 2021-0 Yes 5mg Take 5 mg [facility] mg tablet 8-01 by mouth ity of 15:13: daily. [address] memantine 5 2021-0 Yes 5mg Take 5 mg [facility] mg tablet 8-01 by mouth ity of 15:13: daily. [address] memantine 5 2021-0 Yes 5mg Take 5 mg [facility] mg tablet 8-01 by mouth ity of 15:13: daily. [address] memantine 5 2021-0 Yes 5mg Take 5 mg [facility] mg tablet 8-01 by mouth ity of 15:13: daily. [address] memantine 5 2021-0 Yes 5mg Take 5 mg [facility] mg tablet 8-01 by mouth ity of 15:13: daily. [address] memantine 5 2021-0 Yes 5mg Take 5 mg [facility] mg tablet 8-01 by mouth ity of 15:13: daily. [address] memantine 5 2021-0 Yes 5mg Take 5 mg [facility] mg tablet 8-01 by mouth ity of 15:13: daily. [address] memantine 5 2021-0 Yes 5mg Take 5 mg [facility] mg tablet 8-01 by mouth ity of 15:13: daily. [address] memantine 5 2021-0 Yes 5mg Take 5 mg [facility] mg tablet 8-01 by mouth ity of 15:13: daily. [address] memantine 5 2021-0 Yes 5mg Take 5 mg [facility] mg tablet 8-01 by mouth ity of 15:13: daily. [address] memantine 5 2021-0 Yes 5mg Take 5 mg [facility] mg tablet 8-01 by mouth ity of 15:13: daily. [address] memantine 5 2021-0 Yes 5mg Take 5 mg [facility] mg tablet 8-01 by mouth ity of 15:13: daily. [address] memantine 5 2021-0 Yes 5mg Take 5 mg [facility] mg tablet 8-01 by mouth ity of 15:13: daily. [address] memantine 5 2021-0 Yes 5mg Take 5 mg [facility] mg tablet 8-01 by mouth ity of 15:13: daily. [address] memantine 5 2021-0 Yes 5mg Take 5 mg [facility] mg tablet 8-01 by mouth ity of 15:13: daily. [address] memantine 5 2021-0 Yes 5mg Take 5 mg [facility] mg tablet 8-01 by mouth ity of 15:13: daily. [address] memantine 5 2021-0 Yes 5mg Take 5 mg [facility] mg tablet 8-01 by mouth ity of 15:13: daily. [address] memantine 5 2021-0 Yes 5mg Take 5 mg [facility] mg tablet 8-01 by mouth ity of 15:13: daily. [address] memantine 5 2021-0 Yes 5mg Take 5 mg [facility] mg tablet 8-01 by mouth ity of 15:13: daily. [address] memantine 5 2021-0 Yes 5mg Take 5 mg [facility] mg tablet 8-01 by mouth ity of 15:13: daily. [address] memantine 5 2021-0 Yes 5mg Take 5 mg [facility] mg tablet 8-01 by mouth ity of 15:13: daily. [address] memantine 5 2021-0 Yes 5mg Take 5 mg [facility] mg tablet 8-01 by mouth ity of 15:13: daily. [address] mesalamine 0 Yes [id number] 2.4g Take 2 U nivers 1.2 gram EC 7-05 tablets by it y of tablet 00:00: mouth [place] 00 daily. [facility] mesalamine 2021-0 Yes [id number] 2.4g Take 2 U nivers 1.2 gram EC 7-05 tablets by it y of tablet 00:00: mouth [place] 00 daily. [facility] mesalamine 2021-0 Yes [id number] 2.4g Take 2 U nivers 1.2 gram EC 7-05 tablets by it y of tablet 00:00: mouth [place] 00 daily. [facility] mesalamine 2021-0 Yes [id number] 2.4g Take 2 U nivers 1.2 gram EC 7-05 tablets by it y of tablet 00:00: mouth [place] 00 daily. [facility] mesalamine 2021-0 Yes [id number] 2.4g Take 2 U nivers 1.2 gram EC 7-05 tablets by it y of tablet 00:00: mouth [place] 00 daily. [facility] mesalamine 2021- Yes [id number] 2.4g Take 2 U nivers 1.2 gram EC 7-05 tablets by it y of tablet 00:00: mouth [place] 00 daily. [facility] mesalamine 2021-0 Yes [id number] 2.4g Take 2 U nivers 1.2 gram EC 7-05 tablets by it y of tablet 00:00: mouth [place] 00 daily. [facility] mesalamine 2021-0 Yes [id number] 2.4g Take 2 U nivers 1.2 gram EC 7-05 tablets by it y of tablet 00:00: mouth [place] 00 daily. [facility] mesalamine 2021- Yes [id number] 2.4g Take 2 U nivers 1.2 gram EC 7-05 tablets by it y of tablet 00:00: mouth [place] 00 daily. [facility] mesalamine 2021-0 Yes [id number] 2.4g Take 2 U nivers 1.2 gram EC 7-05 tablets by it y of tablet 00:00: mouth [place] 00 daily. [facility] mesalamine 2021-0 Yes [id number] 2.4g Take 2 [facility] nivers 1.2 gram EC 7-05 tablets by it y of tablet 00:00: mouth [place] 00 daily. [facility] mesalamine 2021-0 2021- No [id number] 2.4g Take 2 [facility] 1.2 gram EC 7-05 10-31 tablets by i ty of tablet 00:00: 00:00 mouth [place] 00 :00 daily. [facility] mesalamine 2021- No [id number] 2.4g Take 2 [facility] 1.2 gram EC 12-25 10-31 tablets by i ty of tablet 00:00: 00:00 mouth [place] 00 :00 daily. [facility] valsartan Yes [id number] 320mg Take 1 [facility] 320 mg 6-13 tablet by ity of tablet 00:00: mouth [place] 00 daily. [facility] levothyroxi Yes [id number] 75ug Take 1 [facility] ne 75 mcg 6-13 tablet by ity o f tablet 00:00: mouth [place] 00 every Medical morning. Branch famotidine Yes [id number] 20mg Take 1 [facility] 20 mg 6-13 tablet by ity of tablet 00:00: mouth [place] 00 daily. [facility] DULoxetine Yes [id number] 30mg Take 1 U nivers 30 mg 6-13 capsule by ity of capsule 00:00: mouth [place] 00 daily. [facility] atorvastati Yes [id number] 80mg Take 1 [facility] n 80 mg 6-13 tablet by ity of tablet 00:00: mouth [place] 00 daily. [facility] apixaban Yes [id number] 2.5mg Take 1 [facility] s (ELIQUIS) 6-13 tablet by ity o f 2.5 mg 00:00: mouth 2 [place] tablet 00 (two) Medical times Branch daily. Indication s: history of stroke valsartan Yes [id number] 320mg Take 1 [facility] 320 mg 6-13 tablet by ity of tablet 00:00: mouth [place] 00 daily. [facility] levothyroxi Yes [id number] 75ug Take 1 [facility] ne 75 mcg 6-13 tablet by ity o f tablet 00:00: mouth [place] 00 every Medical morning. Branch famotidine Yes [id number] 20mg Take 1 [facility] 20 mg 6-13 tablet by ity of tablet 00:00: mouth [place] 00 daily. [facility] DULoxetine Yes [id number] 30mg Take 1 U nivers 30 mg 6-13 capsule by ity of capsule 00:00: mouth [place] 00 daily. [facility] atorvastati Yes [id number] 80mg Take 1 [facility] n 80 mg 6-13 tablet by ity of tablet 00:00: mouth [place] 00 daily. [facility] apixaban Yes [id number] 2.5mg Take 1 [facility] s (ELIQUIS) 6-13 tablet by ity o f 2.5 mg 00:00: mouth 2 [place] tablet 00 (two) Medical times Branch daily. Indication s: history of stroke valsartan Yes [id number] 320mg Take 1 [facility] 320 mg 6-13 tablet by ity of tablet 00:00: mouth [place] 00 daily. [facility] levothyroxi Yes [id number] 75ug Take 1 [facility] ne 75 mcg 6-13 tablet by ity o f tablet 00:00: mouth [place] 00 every Medical morning. Branch famotidine Yes [id number] 20mg Take 1 [facility] 20 mg 6-13 tablet by ity of tablet 00:00: mouth [place] 00 daily. [facility] DULoxetine Yes [id number] 30mg Take 1 [facility] nivers 30 mg 6-13 capsule by ity of capsule 00:00: mouth [place] 00 daily. [facility] atorvastati Yes [id number] 80mg Take 1 [facility] n 80 mg 6-13 tablet by ity of tablet 00:00: mouth [place] 00 daily. [facility] apixaban Yes [id number] 2.5mg Take 1 [facility] s (ELIQUIS) 6-13 tablet by ity o f 2.5 mg 00:00: mouth 2 [place] tablet 00 (two) Medical times Branch daily. Indication s: history of stroke valsartan Yes [id number] 320mg Take 1 [facility] 320 mg 6-13 tablet by ity of tablet 00:00: mouth [place] 00 daily. [facility] levothyroxi Yes [id number] 75ug Take 1 [facility] ne 75 mcg 6-13 tablet by ity o f tablet 00:00: mouth [place] 00 every Medical morning. Branch famotidine Yes [id number] 20mg Take 1 [facility] 20 mg 6-13 tablet by ity of tablet 00:00: mouth [place] 00 daily. [facility] DULoxetine Yes [id number] 30mg Take 1 [facility] nivers 30 mg 6-13 capsule by ity of capsule 00:00: mouth [place] 00 daily. [facility] atorvastati Yes [id number] 80mg Take 1 [facility] n 80 mg 6-13 tablet by ity of tablet 00:00: mouth [place] 00 daily. [facility] apixaban Yes [id number] 2.5mg Take 1 [facility] s (ELIQUIS) 6-13 tablet by ity o f 2.5 mg 00:00: mouth 2 [place] tablet 00 (two) Medical times Branch daily. Indication s: history of stroke valsartan Yes [id number] 320mg Take 1 [facility] 320 mg 6-13 tablet by ity of tablet 00:00: mouth [place] 00 daily. [facility] famotidine Yes [id number] 20mg Take 1 [facility] 20 mg 6-13 tablet by ity of tablet 00:00: mouth [place] 00 daily. [facility] DULoxetine Yes [id number] 30mg Take 1 U nivers 30 mg 6-13 capsule by ity of capsule 00:00: mouth [place] 00 daily. [facility] apixaban Yes [id number] 2.5mg Take 1 [facility] s (ELIQUIS) 6-13 tablet by ity o f 2.5 mg 00:00: mouth 2 [place] tablet 00 (two) Medical times Branch daily. Indication s: history of stroke valsartan Yes [id number] 320mg Take 1 [facility] 320 mg 6-13 tablet by ity of tablet 00:00: mouth [place] 00 daily. [facility] famotidine Yes [id number] 20mg Take 1 [facility] 20 mg 6-13 tablet by ity of tablet 00:00: mouth [place] 00 daily. [facility] DULoxetine Yes [id number] 30mg Take 1 U nivers 30 mg 6-13 capsule by ity of capsule 00:00: mouth [place] 00 daily. [facility] apixaban Yes [id number] 2.5mg Take 1 [facility] s (ELIQUIS) 6-13 tablet by ity o f 2.5 mg 00:00: mouth 2 [place] tablet 00 (two) Medical times Branch daily. Indication s: history of stroke valsartan Yes [id number] 320mg Take 1 [facility] 320 mg 6-13 tablet by ity of tablet 00:00: mouth [place] 00 daily. [facility] famotidine Yes [id number] 20mg Take 1 [facility] 20 mg 6-13 tablet by ity of tablet 00:00: mouth [place] 00 daily. [facility] DULoxetine Yes [id number] 30mg Take 1 U nivers 30 mg 6-13 capsule by ity of capsule 00:00: mouth [place] 00 daily. [facility] apixaban Yes [id number] 2.5mg Take 1 [facility] s (ELIQUIS) 6-13 tablet by ity o f 2.5 mg 00:00: mouth 2 [place] tablet 00 (two) Medical times Branch daily. Indication s: history of stroke valsartan Yes [id number] 320mg Take 1 [facility] 320 mg 6-13 tablet by ity of tablet 00:00: mouth [place] 00 daily. [facility] famotidine Yes [id number] 20mg Take 1 [facility] 20 mg 6-13 tablet by ity of tablet 00:00: mouth [place] 00 daily. [facility] DULoxetine Yes [id number] 30mg Take 1 U nivers 30 mg 6-13 capsule by ity of capsule 00:00: mouth [place] 00 daily. [facility] apixaban Yes [id number] 2.5mg Take 1 [facility] s (ELIQUIS) 6-13 tablet by ity o f 2.5 mg 00:00: mouth 2 [place] tablet 00 (two) Medical times Branch daily. Indication s: history of stroke valsartan Yes [id number] 320mg Take 1 [facility] 320 mg 6-13 tablet by ity of tablet 00:00: mouth [place] 00 daily. [facility] DULoxetine Yes [id number] 30mg Take 1 U nivers 30 mg 6-13 capsule by ity of capsule 00:00: mouth [place] 00 daily. [facility] valsartan Yes [id number] 320mg Take 1 [facility] 320 mg 6-13 tablet by ity of tablet 00:00: mouth [place] 00 daily. [facility] valsartan Yes [id number] 320mg Take 1 [facility] 320 mg 6-13 tablet by ity of tablet 00:00: mouth [place] 00 daily. [facility] valsartan Yes [id number] 320mg Take 1 [facility] 320 mg 6-13 tablet by ity of tablet 00:00: mouth [place] 00 daily. [facility] valsartan Yes [id number] 320mg Take 1 [facility] 320 mg 6-13 tablet by ity of tablet 00:00: mouth [place] 00 daily. [facility] valsartan Yes [id number] 320mg Take 1 [facility] 320 mg 6-13 tablet by ity of tablet 00:00: mouth [place] 00 daily. [facility] valsartan Yes [id number] 320mg Take 1 [facility] 320 mg 6-13 tablet by ity of tablet 00:00: mouth [place] 00 daily. [facility] valsartan Yes [id number] 320mg Take 1 [facility] 320 mg 6-13 tablet by ity of tablet 00:00: mouth [place] 00 daily. [facility] potassium Yes [id number] 10meq Take 1 [facility] chloride 10 6-13 tablet by ity of mEq CR 00:00: mouth [place] tablet 00 daily. [facility] levothyroxi Yes [id number] 75ug Take 1 [facility] ne 75 mcg 6-13 tablet by ity o f tablet 00:00: mouth [place] 00 every Medical morning. Branch furosemide Yes [id number] 20mg Take 1 [facility] 20 mg 6-13 tablet by ity of tablet 00:00: mouth [place] 00 daily. [facility] famotidine Yes [id number] 20mg Take 1 [facility] 20 mg 6-13 tablet by ity of tablet 00:00: mouth [place] 00 daily. [facility] DULoxetine Yes [id number] 30mg Take 1 U nivers 30 mg 6-13 capsule by ity of capsule 00:00: mouth [place] 00 daily. [facility] atorvastati Yes [id number] 80mg Take 1 [facility] n 80 mg 6-13 tablet by ity of tablet 00:00: mouth [place] 00 daily. [facility] apixaban Yes [id number] 2.5mg Take 1 Un[facility] s (ELIQUIS) 6-13 tablet by ity o f 2.5 mg 00:00: mouth 2 [place] tablet 00 (two) Medical times Branch daily. Indication s: history of stroke valsartan Yes [id number] 320mg Take 1 [facility] 320 mg 6-13 tablet by ity of tablet 00:00: mouth [place] 00 daily. [facility] potassium Yes [id number] 10meq Take 1 [facility] chloride 10 6-13 tablet by ity of mEq CR 00:00: mouth [place] tablet 00 daily. [facility] levothyroxi Yes [id number] 75ug Take 1 [facility] ne 75 mcg 6-13 tablet by ity o f tablet 00:00: mouth [place] 00 every Medical morning. Branch furosemide 0 Yes [id number] 20mg Take 1 [facility] 20 mg 6-13 tablet by ity of tablet 00:00: mouth [place] 00 daily. [facility] famotidine Yes [id number] 20mg Take 1 [facility] 20 mg 6-13 tablet by ity of tablet 00:00: mouth [place] 00 daily. [facility] DULoxetine Yes [id number] 30mg Take 1 U nivers 30 mg 6-13 capsule by ity of capsule 00:00: mouth [place] 00 daily. [facility] atorvastati Yes [id number] 80mg Take 1 [facility] n 80 mg 6-13 tablet by ity of tablet 00:00: mouth [place] 00 daily. [facility] apixaban Yes [id number] 2.5mg Take 1 [facility] s (ELIQUIS) 6-13 tablet by ity o f 2.5 mg 00:00: mouth 2 [place] tablet 00 (two) Medical times Branch daily. Indication s: history of stroke valsartan Yes [id number] 320mg Take 1 [facility] 320 mg 6-13 tablet by ity of tablet 00:00: mouth [place] 00 daily. [facility] potassium Yes [id number] 10meq Take 1 [facility] chloride 10 6-13 tablet by ity of mEq CR 00:00: mouth [place] tablet 00 daily. [facility] levothyroxi Yes [id number] 75ug Take 1 [facility] ne 75 mcg 6-13 tablet by ity o f tablet 00:00: mouth [place] 00 every Medical morning. Branch furosemide Yes [id number] 20mg Take 1 [facility] 20 mg 6-13 tablet by ity of tablet 00:00: mouth [place] 00 daily. [facility] famotidine Yes [id number] 20mg Take 1 [facility] 20 mg 6-13 tablet by ity of tablet 00:00: mouth [place] 00 daily. [facility] DULoxetine 0 Yes [id number] 30mg Take 1 U nivers 30 mg 6-13 capsule by ity of capsule 00:00: mouth [place] 00 daily. [facility] atorvastati Yes [id number] 80mg Take 1 [facility] n 80 mg 6-13 tablet by ity of tablet 00:00: mouth [place] 00 daily. [facility] apixaban Yes [id number] 2.5mg Take 1 Un[facility] s (ELIQUIS) 6-13 tablet by ity o f 2.5 mg 00:00: mouth 2 [place] tablet 00 (two) Medical times Branch daily. Indication s: history of stroke valsartan Yes [id number] 320mg Take 1 [facility] 320 mg 6-13 tablet by ity of tablet 00:00: mouth [place] 00 daily. [facility] potassium Yes [id number] 10meq Take 1 [facility] chloride 10 6-13 tablet by ity of mEq CR 00:00: mouth [place] tablet 00 daily. [facility] levothyroxi Yes [id number] 75ug Take 1 [facility] ne 75 mcg 6-13 tablet by ity o f tablet 00:00: mouth [place] 00 every Medical morning. Branch furosemide Yes [id number] 20mg Take 1 [facility] 20 mg 6-13 tablet by ity of tablet 00:00: mouth [place] 00 daily. [facility] famotidine Yes [id number] 20mg Take 1 [facility] 20 mg 6-13 tablet by ity of tablet 00:00: mouth [place] 00 daily. [facility] DULoxetine Yes [id number] 30mg Take 1 U nivers 30 mg 6-13 capsule by ity of capsule 00:00: mouth [place] 00 daily. [facility] atorvastati Yes [id number] 80mg Take 1 [facility] n 80 mg 6-13 tablet by ity of tablet 00:00: mouth [place] 00 daily. [facility] apixaban Yes [id number] 2.5mg Take 1 [facility] s (ELIQUIS) 6-13 tablet by ity o f 2.5 mg 00:00: mouth 2 [place] tablet 00 (two) Medical times Branch daily. Indication s: history of stroke valsartan Yes [id number] 320mg Take 1 [facility] 320 mg 6-13 tablet by ity of tablet 00:00: mouth [place] 00 daily. [facility] potassium Yes [id number] 10meq Take 1 [facility] chloride 10 6-13 tablet by ity of mEq CR 00:00: mouth [place] tablet 00 daily. [facility] levothyroxi Yes [id number] 75ug Take 1 [facility] ne 75 mcg 6-13 tablet by ity o f tablet 00:00: mouth [place] 00 every Medical morning. Branch furosemide Yes [id number] 20mg Take 1 [facility] 20 mg 6-13 tablet by ity of tablet 00:00: mouth [place] 00 daily. [facility] famotidine Yes [id number] 20mg Take 1 [facility] 20 mg 6-13 tablet by ity of tablet 00:00: mouth [place] 00 daily. [facility] DULoxetine Yes [id number] 30mg Take 1 U nivers 30 mg 6-13 capsule by ity of capsule 00:00: mouth [place] 00 daily. [facility] atorvastati Yes [id number] 80mg Take 1 [facility] n 80 mg 6-13 tablet by ity of tablet 00:00: mouth [place] 00 daily. [facility] apixaban Yes [id number] 2.5mg Take 1 [facility] s (ELIQUIS) 6-13 tablet by ity o f 2.5 mg 00:00: mouth 2 [place] tablet 00 (two) Medical times Branch daily. Indication s: history of stroke valsartan Yes [id number] 320mg Take 1 [facility] 320 mg 6-13 tablet by ity of tablet 00:00: mouth [place] 00 daily. [facility] potassium Yes [id number] 10meq Take 1 [facility] chloride 10 6-13 tablet by ity of mEq CR 00:00: mouth [place] tablet 00 daily. [facility] levothyroxi Yes [id number] 75ug Take 1 [facility] ne 75 mcg 6-13 tablet by ity o f tablet 00:00: mouth [place] 00 every Medical morning. Branch furosemide Yes [id number] 20mg Take 1 [facility] 20 mg 6-13 tablet by ity of tablet 00:00: mouth [place] 00 daily. [facility] famotidine Yes [id number] 20mg Take 1 [facility] 20 mg 6-13 tablet by ity of tablet 00:00: mouth [place] 00 daily. [facility] DULoxetine Yes [id number] 30mg Take 1 U nivers 30 mg 6-13 capsule by ity of capsule 00:00: mouth [place] 00 daily. [facility] atorvastati Yes [id number] 80mg Take 1 [facility] n 80 mg 6-13 tablet by ity of tablet 00:00: mouth [place] 00 daily. [facility] apixaban Yes [id number] 2.5mg Take 1 [facility] s (ELIQUIS) 6-13 tablet by ity o f 2.5 mg 00:00: mouth 2 [place] tablet 00 (two) Medical times Branch daily. Indication s: history of stroke valsartan Yes [id number] 320mg Take 1 [facility] 320 mg 6-13 tablet by ity of tablet 00:00: mouth [place] 00 daily. [facility] potassium Yes [id number] 10meq Take 1 [facility] chloride 10 6-13 tablet by ity of mEq CR 00:00: mouth [place] tablet 00 daily. [facility] levothyroxi Yes [id number] 75ug Take 1 [facility] ne 75 mcg 6-13 tablet by ity o f tablet 00:00: mouth [place] 00 every Medical morning. Branch furosemide Yes [id number] 20mg Take 1 [facility] 20 mg 6-13 tablet by ity of tablet 00:00: mouth [place] 00 daily. [facility] famotidine Yes [id number] 20mg Take 1 [facility] 20 mg 6-13 tablet by ity of tablet 00:00: mouth [place] 00 daily. [facility] DULoxetine Yes [id number] 30mg Take 1 [facility] nivers 30 mg 6-13 capsule by ity of capsule 00:00: mouth [place] 00 daily. [facility] atorvastati Yes [id number] 80mg Take 1 [facility] n 80 mg 6-13 tablet by ity of tablet 00:00: mouth [place] 00 daily. [facility] apixaban Yes [id number] 2.5mg Take 1 [facility] s (ELIQUIS) 6-13 tablet by ity o f 2.5 mg 00:00: mouth 2 [place] tablet 00 (two) Medical times Branch daily. Indication s: history of stroke valsartan Yes [id number] 320mg Take 1 [facility] 320 mg 6-13 tablet by ity of tablet 00:00: mouth [place] 00 daily. [facility] potassium Yes [id number] 10meq Take 1 [facility] chloride 10 6-13 tablet by ity of mEq CR 00:00: mouth [place] tablet 00 daily. [facility] levothyroxi Yes [id number] 75ug Take 1 [facility] ne 75 mcg 6-13 tablet by ity o f tablet 00:00: mouth [place] 00 every Medical morning. Branch furosemide Yes [id number] 20mg Take 1 [facility] 20 mg 6-13 tablet by ity of tablet 00:00: mouth [place] 00 daily. [facility] famotidine Yes [id number] 20mg Take 1 [facility] 20 mg 6-13 tablet by ity of tablet 00:00: mouth [place] 00 daily. [facility] DULoxetine Yes [id number] 30mg Take 1 [facility] nivers 30 mg 6-13 capsule by ity of capsule 00:00: mouth [place] 00 daily. [facility] atorvastati Yes [id number] 80mg Take 1 [facility] n 80 mg 6-13 tablet by ity of tablet 00:00: mouth [place] 00 daily. [facility] apixaban Yes [id number] 2.5mg Take 1 [facility] s (ELIQUIS) 6-13 tablet by ity o f 2.5 mg 00:00: mouth 2 [place] tablet 00 (two) Medical times Branch daily. Indication s: history of stroke valsartan Yes [id number] 320mg Take 1 [facility] 320 mg 6-13 tablet by ity of tablet 00:00: mouth [place] 00 daily. [facility] potassium Yes [id number] 10meq Take 1 [facility] chloride 10 6-13 tablet by ity of mEq CR 00:00: mouth [place] tablet 00 daily. [facility] levothyroxi Yes [id number] 75ug Take 1 [facility] ne 75 mcg 6-13 tablet by ity o f tablet 00:00: mouth [place] 00 every Medical morning. Branch furosemide Yes [id number] 20mg Take 1 [facility] 20 mg 6-13 tablet by ity of tablet 00:00: mouth [place] 00 daily. [facility] famotidine Yes [id number] 20mg Take 1 [facility] 20 mg 6-13 tablet by ity of tablet 00:00: mouth [place] 00 daily. [facility] DULoxetine Yes [id number] 30mg Take 1 [facility] nivers 30 mg 6-13 capsule by ity of capsule 00:00: mouth [place] 00 daily. [facility] atorvastati Yes [id number] 80mg Take 1 [facility] n 80 mg 6-13 tablet by ity of tablet 00:00: mouth [place] 00 daily. [facility] apixaban Yes [id number] 2.5mg Take 1 [facility] (ELIQUIS) 6-13 tablet by ity o f 2.5 mg 00:00: mouth 2 [place] tablet 00 (two) Medical times [facility] daily. Indication s: history of stroke valsartan Yes [id number] 320mg Take 1 [facility] 320 mg 6-13 tablet by ity of tablet 00:00: mouth [place] 00 daily. [facility] potassium Yes [id number] 10meq Take 1 [facility] chloride 10 6-13 tablet by ity of mEq CR 00:00: mouth [place] tablet 00 daily. [facility] levothyroxi Yes [id number] 75ug Take 1 [facility] ne 75 mcg 6-13 tablet by ity o f tablet 00:00: mouth [place] 00 every Medical morning. Branch furosemide Yes [id number] 20mg Take 1 [facility] 20 mg 6-13 tablet by ity of tablet 00:00: mouth [place] 00 daily. [facility] famotidine Yes [id number] 20mg Take 1 [facility] 20 mg 6-13 tablet by ity of tablet 00:00: mouth [place] 00 daily. [facility] DULoxetine Yes [id number] 30mg Take 1 [facility] nivers 30 mg 6-13 capsule by ity of capsule 00:00: mouth [place] 00 daily. [facility] atorvastati Yes [id number] 80mg Take 1 [facility] n 80 mg 6-13 tablet by ity of tablet 00:00: mouth [place] 00 daily. [facility] apixaban Yes [id number] 2.5mg Take 1 [facility] s (ELIQUIS) 6-13 tablet by ity o f 2.5 mg 00:00: mouth 2 [place] tablet 00 (two) Medical times [facility] daily. Indication s: history of stroke valsartan Yes [id number] 320mg Take 1 [facility] 320 mg 6-13 tablet by ity of tablet 00:00: mouth [place] 00 daily. [facility] potassium Yes [id number] 10meq Take 1 [facility] chloride 10 6-13 tablet by ity of mEq CR 00:00: mouth [place] tablet 00 daily. [facility] levothyroxi Yes [id number] 75ug Take 1 [facility] ne 75 mcg 6-13 tablet by ity o f tablet 00:00: mouth [place] 00 every Medical morning. Branch famotidine Yes [id number] 20mg Take 1 [facility] 20 mg 6-13 tablet by ity of tablet 00:00: mouth [place] 00 daily. [facility] DULoxetine Yes [id number] 30mg Take 1 [facility] nivers 30 mg 6-13 capsule by ity of capsule 00:00: mouth [place] 00 daily. [facility] atorvastati Yes [id number] 80mg Take 1 [facility] n 80 mg 6-13 tablet by ity of tablet 00:00: mouth [place] 00 daily. [facility] apixaban Yes [id number] 2.5mg Take 1 [facility] (ELIQUIS) 6-13 tablet by ity o f 2.5 mg 00:00: mouth 2 [place] tablet 00 (two) Medical times [facility] daily. Indication s: history of stroke valsartan Yes [id number] 320mg Take 1 [facility] 320 mg 6-13 tablet by ity of tablet 00:00: mouth [place] 00 daily. [facility] potassium Yes [id number] 10meq Take 1 [facility] chloride 10 6-13 tablet by ity of mEq CR 00:00: mouth [place] tablet 00 daily. [facility] levothyroxi Yes [id number] 75ug Take 1 [facility] ne 75 mcg 6-13 tablet by ity o f tablet 00:00: mouth [place] 00 every Medical morning. Branch famotidine Yes [id number] 20mg Take 1 [facility] 20 mg 6-13 tablet by ity of tablet 00:00: mouth [place] 00 daily. [facility] DULoxetine Yes [id number] 30mg Take 1 [facility]ivers 30 mg 6-13 capsule by ity of capsule 00:00: mouth [place] 00 daily. [facility] atorvastati Yes [id number] 80mg Take 1 [facility] n 80 mg 6-13 tablet by ity of tablet 00:00: mouth [place] 00 daily. [facility] apixaban Yes [id number] 2.5mg Take 1 [facility] (ELIQUIS) 6-13 tablet by ity o f 2.5 mg 00:00: mouth 2 [place] tablet 00 (two) Medical times [facility] daily. Indication s: history of stroke valsartan Yes [id number] 320mg Take 1 [facility] 320 mg 6-13 tablet by ity of tablet 00:00: mouth [place] 00 daily. [facility] potassium Yes [id number] 10meq Take 1 [facility] chloride 10 6-13 tablet by ity of mEq CR 00:00: mouth [place] tablet 00 daily. [facility] levothyroxi Yes [id number] 75ug Take 1 [facility] ne 75 mcg 6-13 tablet by ity o f tablet 00:00: mouth [place] 00 every Medical morning. Branch famotidine Yes [id number] 20mg Take 1 [facility] 20 mg 6-13 tablet by ity of tablet 00:00: mouth [place] 00 daily. Medical Branch DULoxetine Yes [id number] 30mg Take 1 U nivers 30 mg 6-13 capsule by ity of capsule 00:00: mouth [place] 00 daily. Medical Branch atorvastati Yes [id number] 80mg Take 1 Univers n 80 mg 6-13 tablet by ity of tablet 00:00: mouth [place] 00 daily. Medical Branch apixaban Yes [id number] 2.5mg Take 1 Univer s (ELIQUIS) 6-13 tablet by ity o f 2.5 mg 00:00: mouth 2 [place] tablet 00 (two) Medical times Branch daily. Indication s: history of stroke valsartan Yes [id number] 320mg Take 1 [facility] 320 mg 6-13 tablet by ity of tablet 00:00: mouth [place] 00 daily. Medical Branch potassium Yes [id number] 10meq Take 1 [facility] chloride 10 6-13 tablet by ity of mEq CR 00:00: mouth [place] tablet 00 daily. Medical Branch levothyroxi Yes [id number] 75ug Take 1 [facility] ne 75 mcg 6-13 tablet by ity o f tablet 00:00: mouth [place] 00 every Medical morning. Branch famotidine Yes [id number] 20mg Take 1 [facility] 20 mg 6-13 tablet by ity of tablet 00:00: mouth [place] 00 daily. Medical Branch DULoxetine Yes [id number] 30mg Take 1 U nivers 30 mg 6-13 capsule by ity of capsule 00:00: mouth [place] 00 daily. Medical Branch atorvastati Yes [id number] 80mg Take 1 [facility] n 80 mg 6-13 tablet by ity of tablet 00:00: mouth [place] 00 daily. Medical Branch apixaban Yes [id number] 2.5mg Take 1 Univer s (ELIQUIS) 6-13 tablet by ity o f 2.5 mg 00:00: mouth 2 [place] tablet 00 (two) Medical times Branch daily. Indication s: history of stroke valsartan Yes [id number] 320mg Take 1 [facility] 320 mg 6-13 tablet by ity of tablet 00:00: mouth [place] 00 daily. Medical Branch potassium Yes [id number] 10meq Take 1 [facility] chloride 10 6-13 tablet by ity of mEq CR 00:00: mouth [place] tablet 00 daily. Medical Branch levothyroxi Yes [id number] 75ug Take 1 [facility] ne 75 mcg 6-13 tablet by ity o f tablet 00:00: mouth [place] 00 every Medical morning. Branch famotidine Yes [id number] 20mg Take 1 [facility] 20 mg 6-13 tablet by ity of tablet 00:00: mouth [place] 00 daily. Medical Branch DULoxetine Yes [id number] 30mg Take 1 U nivers 30 mg 6-13 capsule by ity of capsule 00:00: mouth [place] 00 daily. Medical Branch atorvastati Yes [id number] 80mg Take 1 [facility] n 80 mg 6-13 tablet by ity of tablet 00:00: mouth [place] 00 daily. Medical Branch apixaban Yes [id number] 2.5mg Take 1 Univer s (ELIQUIS) 6-13 tablet by ity o f 2.5 mg 00:00: mouth 2 [place] tablet 00 (two) Medical times Branch daily. Indication s: history of stroke valsartan Yes [id number] 320mg Take 1 [facility] 320 mg 6-13 tablet by ity of tablet 00:00: mouth [place] 00 daily. Medical Branch potassium Yes [id number] 10meq Take 1 [facility] chloride 10 6-13 tablet by ity of mEq CR 00:00: mouth [place] tablet 00 daily. Medical Branch levothyroxi Yes [id number] 75ug Take 1 [facility] ne 75 mcg 6-13 tablet by ity o f tablet 00:00: mouth [place] 00 every Medical morning. Branch famotidine Yes [id number] 20mg Take 1 [facility] 20 mg 6-13 tablet by ity of tablet 00:00: mouth [place] 00 daily. Medical Branch DULoxetine Yes [id number] 30mg Take 1 U nivers 30 mg 6-13 capsule by ity of capsule 00:00: mouth [place] 00 daily. Medical Branch atorvastati Yes [id number] 80mg Take 1 [facility] n 80 mg 6-13 tablet by ity of tablet 00:00: mouth [place] 00 daily. Medical Branch apixaban Yes [id number] 2.5mg Take 1 Univer s (ELIQUIS) 6-13 tablet by ity o f 2.5 mg 00:00: mouth 2 [place] tablet 00 (two) Medical times Branch daily. Indication s: history of stroke valsartan Yes [id number] 320mg Take 1 [facility] 320 mg 6-13 tablet by ity of tablet 00:00: mouth [place] 00 daily. Medical Branch potassium Yes [id number] 10meq Take 1 [facility] chloride 10 6-13 tablet by ity of mEq CR 00:00: mouth [place] tablet 00 daily. Medical Branch levothyroxi Yes [id number] 75ug Take 1 [facility] ne 75 mcg 6-13 tablet by ity o f tablet 00:00: mouth [place] 00 every Medical morning. Branch famotidine Yes [id number] 20mg Take 1 [facility] 20 mg 6-13 tablet by ity of tablet 00:00: mouth [place] 00 daily. Medical Branch DULoxetine Yes [id number] 30mg Take 1 U nivers 30 mg 6-13 capsule by ity of capsule 00:00: mouth [place] 00 daily. Medical Branch atorvastati Yes [id number] 80mg Take 1 [facility] n 80 mg 6-13 tablet by ity of tablet 00:00: mouth [place] 00 daily. Medical Branch apixaban Yes [id number] 2.5mg Take 1 Univer s (ELIQUIS) 6-13 tablet by ity o f 2.5 mg 00:00: mouth 2 [place] tablet 00 (two) Medical times Branch daily. Indication s: history of stroke valsartan Yes [id number] 320mg Take 1 [facility] 320 mg 6-13 tablet by ity of tablet 00:00: mouth [place] 00 daily. Medical Branch potassium Yes [id number] 10meq Take 1 [facility] chloride 10 6-13 tablet by ity of mEq CR 00:00: mouth [place] tablet 00 daily. Medical Branch levothyroxi Yes [id number] 75ug Take 1 [facility] ne 75 mcg 6-13 tablet by ity o f tablet 00:00: mouth [place] 00 every Medical morning. Branch famotidine Yes [id number] 20mg Take 1 [facility] 20 mg 6-13 tablet by ity of tablet 00:00: mouth [place] 00 daily. Medical Branch DULoxetine Yes [id number] 30mg Take 1 U nivers 30 mg 6-13 capsule by ity of capsule 00:00: mouth [place] 00 daily. Medical Branch atorvastati Yes [id number] 80mg Take 1 [facility] n 80 mg 6-13 tablet by ity of tablet 00:00: mouth [place] 00 daily. Medical Branch apixaban Yes [id number] 2.5mg Take 1 Univer s (ELIQUIS) 6-13 tablet by ity o f 2.5 mg 00:00: mouth 2 [place] tablet 00 (two) Medical times Branch daily. Indication s: history of stroke valsartan Yes [id number] 320mg Take 1 [facility] 320 mg 6-13 tablet by ity of tablet 00:00: mouth [place] 00 daily. Medical Branch potassium Yes [id number] 10meq Take 1 [facility] chloride 10 6-13 tablet by ity of mEq CR 00:00: mouth [place] tablet 00 daily. Medical Branch levothyroxi Yes [id number] 75ug Take 1 [facility] ne 75 mcg 6-13 tablet by ity o f tablet 00:00: mouth [place] 00 every Medical morning. Branch famotidine Yes [id number] 20mg Take 1 [facility] 20 mg 6-13 tablet by ity of tablet 00:00: mouth [place] 00 daily. Medical Branch DULoxetine Yes [id number] 30mg Take 1 U nivers 30 mg 6-13 capsule by ity of capsule 00:00: mouth [place] 00 daily. Medical Branch atorvastati Yes [id number] 80mg Take 1 [facility] n 80 mg 6-13 tablet by ity of tablet 00:00: mouth [place] 00 daily. Medical Branch apixaban Yes [id number] 2.5mg Take 1 Univer s (ELIQUIS) 6-13 tablet by ity o f 2.5 mg 00:00: mouth 2 [place] tablet 00 (two) Medical times Branch daily. Indication s: history of stroke valsartan Yes [id number] 320mg Take 1 [facility] 320 mg 6-13 tablet by ity of tablet 00:00: mouth [place] 00 daily. Medical Branch potassium Yes [id number] 10meq Take 1 U nivers chloride 10 6-13 tablet by ity of mEq CR 00:00: mouth [place] tablet 00 daily. Medical Branch levothyroxi Yes [id number] 75ug Take 1 [facility] ne 75 mcg 6-13 tablet by ity o f tablet 00:00: mouth [place] 00 every Medical morning. Branch famotidine Yes [id number] 20mg Take 1 [facility] 20 mg 6-13 tablet by ity of tablet 00:00: mouth [place] 00 daily. Medical Branch DULoxetine Yes [id number] 30mg Take 1 U nivers 30 mg 6-13 capsule by ity of capsule 00:00: mouth [place] 00 daily. Medical Branch atorvastati Yes [id number] 80mg Take 1 [facility] n 80 mg 6-13 tablet by ity of tablet 00:00: mouth [place] 00 daily. Medical Branch apixaban Yes [id number] 2.5mg Take 1 Univer s (ELIQUIS) 6-13 tablet by ity o f 2.5 mg 00:00: mouth 2 [place] tablet 00 (two) Medical times Branch daily. Indication s: history of stroke valsartan Yes [id number] 320mg Take 1 [facility] 320 mg 6-13 tablet by ity of tablet 00:00: mouth [place] 00 daily. Medical Branch levothyroxi Yes [id number] 75ug Take 1 [facility] ne 75 mcg 6-13 tablet by ity o f tablet 00:00: mouth [place] 00 every Medical morning. Branch famotidine Yes [id number] 20mg Take 1 [facility] 20 mg 6-13 tablet by ity of tablet 00:00: mouth [place] 00 daily. Medical Branch DULoxetine Yes [id number] 30mg Take 1 U nivers 30 mg 6-13 capsule by ity of capsule 00:00: mouth [place] 00 daily. Medical Branch atorvastati Yes [id number] 80mg Take 1 [facility] n 80 mg 6-13 tablet by ity of tablet 00:00: mouth [place] 00 daily. Medical Branch apixaban Yes [id number] 2.5mg Take 1 Univer s (ELIQUIS) 6-13 tablet by ity o f 2.5 mg 00:00: mouth 2 [place] tablet 00 (two) Medical times Branch daily. Indication s: history of stroke valsartan Yes [id number] 320mg Take 1 [facility] 320 mg 6-13 tablet by ity of tablet 00:00: mouth [place] 00 daily. Medical Branch levothyroxi Yes [id number] 75ug Take 1 [facility] ne 75 mcg 6-13 tablet by ity o f tablet 00:00: mouth [place] 00 every Medical morning. Branch famotidine Yes [id number] 20mg Take 1 [facility] 20 mg 6-13 tablet by ity of tablet 00:00: mouth [place] 00 daily. Medical Branch DULoxetine Yes [id number] 30mg Take 1 U nivers 30 mg 6-13 capsule by ity of capsule 00:00: mouth [place] 00 daily. Medical Branch atorvastati Yes [id number] 80mg Take 1 [facility] n 80 mg 6-13 tablet by ity of tablet 00:00: mouth [place] 00 daily. Medical Branch apixaban Yes [id number] 2.5mg Take 1 Univer s (ELIQUIS) 6-13 tablet by ity o f 2.5 mg 00:00: mouth 2 [place] tablet 00 (two) Medical times Branch daily. Indication s: history of stroke valsartan Yes [id number] 320mg Take 1 [facility] 320 mg 6-13 tablet by ity of tablet 00:00: mouth [place] 00 daily. Medical Branch levothyroxi Yes [id number] 75ug Take 1 [facility] ne 75 mcg 6-13 tablet by ity o f tablet 00:00: mouth [place] 00 every Medical morning. Branch famotidine Yes [id number] 20mg Take 1 [facility] 20 mg 6-13 tablet by ity of tablet 00:00: mouth [place] 00 daily. Medical Branch DULoxetine Yes [id number] 30mg Take 1 U nivers 30 mg 6-13 capsule by ity of capsule 00:00: mouth [place] 00 daily. Medical Branch atorvastati Yes [id number] 80mg Take 1 [facility] n 80 mg 6-13 tablet by ity of tablet 00:00: mouth [place] 00 daily. Medical Branch apixaban Yes [id number] 2.5mg Take 1 Univer s (ELIQUIS) 6-13 tablet by ity o f 2.5 mg 00:00: mouth 2 [place] tablet 00 (two) Medical times Branch daily. Indication s: history of stroke valsartan Yes [id number] 320mg Take 1 [facility] 320 mg 6-13 tablet by ity of tablet 00:00: mouth [place] 00 daily. Medical Branch levothyroxi Yes [id number] 75ug Take 1 [facility] ne 75 mcg 6-13 tablet by ity o f tablet 00:00: mouth [place] 00 every Medical morning. Branch famotidine Yes [id number] 20mg Take 1 [facility] 20 mg 6-13 tablet by ity of tablet 00:00: mouth [place] 00 daily. Medical Branch DULoxetine Yes [id number] 30mg Take 1 U nivers 30 mg 6-13 capsule by ity of capsule 00:00: mouth [place] 00 daily. Medical Branch atorvastati Yes [id number] 80mg Take 1 [facility] n 80 mg 6-13 tablet by ity of tablet 00:00: mouth [place] 00 daily. Medical Branch apixaban Yes [id number] 2.5mg Take 1 Univer s (ELIQUIS) 6-13 tablet by ity o f 2.5 mg 00:00: mouth 2 [place] tablet 00 (two) Medical times Branch daily. Indication s: history of stroke valsartan Yes [id number] 320mg Take 1 [facility] 320 mg 6-13 tablet by ity of tablet 00:00: mouth [place] 00 daily. Medical Branch levothyroxi Yes [id number] 75ug Take 1 [facility] ne 75 mcg 6-13 tablet by ity o f tablet 00:00: mouth [place] 00 every Medical morning. Branch famotidine Yes [id number] 20mg Take 1 [facility] 20 mg 6-13 tablet by ity of tablet 00:00: mouth [place] 00 daily. Medical Branch DULoxetine Yes [id number] 30mg Take 1 U nivers 30 mg 6-13 capsule by ity of capsule 00:00: mouth [place] 00 daily. Medical Branch atorvastati Yes [id number] 80mg Take 1 [facility] n 80 mg 6-13 tablet by ity of tablet 00:00: mouth [place] 00 daily. Medical Branch apixaban Yes [id number] 2.5mg Take 1 Univer s (ELIQUIS) 6-13 tablet by ity o f 2.5 mg 00:00: mouth 2 [place] tablet 00 (two) Medical times Branch daily. Indication s: history of stroke valsartan 2022- No [id number] 320mg Take 1 [facility] 320 mg 6-13 07-24 tablet by ity of tablet 00:00: 00:00 mouth [place] 00 :00 daily. Medical Branch valsartan 2022- No [id number] 320mg Take 1 [facility] 320 mg 6-13 07-24 tablet by ity of tablet 00:00: 00:00 mouth [place] 00 :00 daily. Medical Branch valsartan 2022- No [id number] 320mg Take 1 [facility] 320 mg 6-13 07-24 tablet by ity of tablet 00:00: 00:00 mouth [place] 00 :00 daily. Medical Branch valsartan 2022- No [id number] 320mg Take 1 [facility] 320 mg 6-13 07-24 tablet by ity of tablet 00:00: 00:00 mouth [place] 00 :00 daily. Medical Branch valsartan 2022- No [id number] 320mg Take 1 [facility] 320 mg 12-03 tablet by ity of tablet 00:00: 00:00 mouth [place] 00 :00 daily. Medical Branch valsartan 2022- No [id number] 320mg Take 1 [facility] 320 mg 12-03 tablet by ity of tablet 00:00: 00:00 mouth [place] 00 :00 daily. Medical Branch DULoxetine 2022- No [id number] 30mg Take 1 [facility] 30 mg 12-03 capsule by ity of capsule 00:00: 00:00 mouth [place] 00 :00 daily. Medical Branch famotidine 2022- No [id number] 20mg Take 1 [facility] 20 mg 12-03 tablet by ity of tablet 00:00: 00:00 mouth [place] 00 :00 daily. Medical Branch apixaban 2022- No [id number] 2.5mg Take 1 Unive rs (ELIQUIS) 12-03 tablet by ity of 2.5 mg 00:00: 00:00 mouth 2 [place] tablet 00 :00 (two) Medical times Branch daily. Indication s: history of stroke levothyroxi 2022- No [id number] 75ug Take 1 [facility] ne 75 mcg 12-03 tablet by ity of tablet 00:00: 00:00 mouth [place] 00 :00 every Medical morning. Branch atorvastati 2022- No [id number] 80mg Take 1 [facility] n 80 mg 12-03 tablet by ity of tablet 00:00: 00:00 mouth [place] 00 :00 daily. Medical Branch potassium 2022- No [id number] 10meq Take 1 [facility] chloride 10 12-03 tablet by it y of mEq CR 00:00: 00:00 mouth [place] tablet 00 :00 daily. Medical Branch potassium 2022- No [id number] 10meq Take 1 [facility] chloride 10 12-03 tablet by it y of mEq CR 00:00: 00:00 mouth [place] tablet 00 :00 daily. Medical Branch potassium 2022- No [id number] 10meq Take 1 [facility] chloride 10 6-13 05-31 tablet by it y of mEq CR 00:00: 00:00 mouth [place] tablet 00 :00 daily. Medical Branch potassium 2021-2022- No [id number] 10meq Take 1 [facility] chloride 10 6-13 05-31 tablet by it y of mEq CR 00:00: 00:00 mouth [place] tablet 00 :00 daily. Medical Branch potassium 2021-2022- No [id number] 10meq Take 1 [facility] chloride 10 6-13 05-31 tablet by it y of mEq CR 00:00: 00:00 mouth [place] tablet 00 :00 daily. Medical Branch furosemide 2021- No [id number] 20mg Take 1 [facility] 20 mg 6-13 10-28 tablet by ity of tablet 00:00: 00:00 mouth [place] 00 :00 daily. Medical Branch furosemide 2021- No [id number] 20mg Take 1 [facility] 20 mg 6-13 10-28 tablet by ity of tablet 00:00: 00:00 mouth [place] 00 :00 daily. Medical Branch aspirin 81 Yes 81mg QD Take [address] [facility] - [facility] 17[facility]11: daily. [place] [id number] [facility] levothyroxi Yes 75ug Take [address] [facility] [address] ne 1- mcg by [facility] (SYNTHROID, 17:11: mouth Medic al LEVOTHROID) 33 Every Center 75 MCG morning on tablet an empty stomach. multivitami Yes 1{tbl} QD Take [address] [facility] per - tablet by [facility] tablet 17:11: mouth Medical 33 daily. Center desloratadi Yes 5mg QD Take 5 mg [...] Take [address] (DEMADEX) 1-26 [facility] 20 MG 17:11: as needed. Medica l tablet 33 Center cholecalcif Yes 2000U QD Take 2,[address] elan, 1-26 [facility] D[facility], 17:11: mouth Medic al 2,000 unit 33 daily. Center Tab calcium Yes 600mg QD Take 600 [facility] carbonate 1-[facility] (OS-VALERIE) 17:11: mouth Medical 600 mg 33 daily. Center calcium (1,500 mg) Tab cyanocobala Yes 1000ug QD Take 1,[address] min 1-26 mcg by [facility] (VITAMIN 17:11: mouth Medical B-12) 1000 33 daily. Center MCG tablet clopidogreL 2020-06 No 75mg QD Take [address] [facility] [...] mouth 2 Center (two) times daily. melatonin 2020-06- No 10mg QD Take [address] 10 mg Tab 0-05 01-26 [facility]: [facility]:00 nightly. Medical 00 :00 [place] pantoprazol Yes 40mg QD Take 40 mg Methodi e 9-[address] (PROTONIX) 15:13: daily. Hospi ta 40 MG EC 25 l tablet pantoprazol 2019 Yes 40mg QD Take 40 mg Methodi e 9-[address] (PROTONIX) 15:13: daily. Hospi ta 40 MG EC 25 l tablet rivaroxaban 2019 Yes 15mg QD Take 15 mg Methodi (XARELTO) 9-[address] 15 mg 15:13: daily. Hospita tablet 25 l atorvastati 2019 Yes 80mg QD Take 80 mg Methodi n (LIPITOR) 9-[address] 80 MG 15:13: daily. [facility]ospita tablet 25 l rivaroxaban 2019 Yes 15mg QD Take 15 mg [facility]i (XARELTO) 9-[address] 15 mg 15:13: daily. Hospita tablet 25 l cyanocobala Yes 1000ug QD Take 1,000 [facility]i min 9-[address] (VITAMIN 15:13: mouth [facility]osp[facility] B-12) 1000 25 daily. l MCG tablet vitamin E Yes 400U QD Take 400 Meth cristal 400 UNIT 9-[address] capsule 15:13: mouth [facility]osp[facility] 25 daily. l cholecalcif 20190 Yes 2000U QD Take 2,000 Methodi elan, 9-[address] vitamin D3, 15:13: mouth Hospi ta (VITAMIN 25 daily. l D3) 2,000 unit capsule capsule DULoxetine Yes 30mg QD Take 30 mg M ethodi (CYMBALTA) 9-[address] 30 MG 15:13: daily. Hospita capsule 25 l mesalamine 0 Yes 375mg QD Take 375 [facility] (APRISO) 9-[address] 0.375 gram 15:13: mouth Hospit a 24 hr 25 daily. l capsule gabapentin 2019-0 Yes 100mg Q.5D Take 100 [facility] (NEURONTIN) 9-[address] 100 mg 15:13: mouth 2 [facility]ospita capsule 25 (two) l times a day. traMADol 2019-0 Yes 50mg Q6H Take 50 mg Met hodi (ULTRAM) 50 9-[address] mg tablet 15:13: every 6 Hospi ta 25 (six) l hours as needed for moderate pain. atorvastati Yes 80mg QD Take 80 mg [...] l hours as needed for moderate pain. Immunizations Ordered Filled Immunization Date Status Comments [facility] e Immunization Name Name Pneumococcal 2023-01-13 Completed Universit y of Conjugate, PCV20 00:00:00 [facility] dical (Prevnar 20) Branch Pneumococcal 20 2023-01-13 Completed Universit y of Conjugate, PCV20 00:00:00 [place] [facility] dical (Prevnar 20) Branch Pneumococcal 20 2023-01-13 Completed Universit y of Conjugate, PCV20 00:00:00 [place] [facility] (Prevnar 20) Branch Pneumococcal 20 2023-01-13 Completed Universit y of Conjugate, PCV20 00:00:00 [place] [facility]ical (Prevnar 20) Branch Pneumococcal 20 2023-01-13 Completed Universit y of Conjugate, PCV20 00:00:00 [facility] dical (Prevnar 20) Branch Pneumococcal 20 2023-01-13 Completed Universit y of Conjugate, PCV20 00:00:00 [facility] dical (Prevnar 20) Branch Pneumococcal 20 2023-01-13 Completed Universit y of Conjugate, PCV20 00:00:00 [facility] dical (Prevnar 20) Branch Pneumococcal 20 2023-01-13 Completed Universit y of Conjugate, PCV20 00:00:00 [facility] dical (Prevnar 20) Branch Pneumococcal 20 2023-01-13 Completed Universit y of Conjugate, PCV20 00:00:00 [facility] dical (Prevnar 20) Branch Pneumococcal 20 2023-01-13 Completed Universit y of Conjugate, PCV20 00:00:00 [facility] dical (Prevnar 20) Branch Pneumococcal 20 2023-01-13 Completed Universit y of Conjugate, PCV20 00:00:00 [facility] dical (Prevnar 20) Branch Pneumococcal 20 2023-01-13 Completed Universit y of Conjugate, PCV20 00:00:00 [facility] dical (Prevnar 20) Branch Pneumococcal 20 2023-01-13 Completed Universit y of Conjugate, PCV20 00:00:00 [facility] dical (Prevnar 20) Branch Pneumococcal 20 2023-01-13 Completed Universit y of Conjugate, PCV20 00:00:00 [facility] dical (Prevnar 20) Branch Pneumococcal 20 2023-01-13 Completed Universit y of Conjugate, PCV20 00:00:00 [facility] dical (Prevnar 20) Branch Pneumococcal 20 2023-01-13 Completed Universit y of Conjugate, PCV20 00:00:00 [facility] dical (Prevnar 20) Branch Pneumococcal 20 2023-01-13 Completed Universit y of Conjugate, PCV20 00:00:00 [facility] dical (Prevnar 20) Branch Vital Signs Vital Name Observation Time Observation Value Comments Source Systolic blood 2023-01-13 18:49:00 127 mm[Hg] Univer sity of pressure [facility] Diastolic blood 2023-01-13 18:49:00 60 mm[Hg] Unive rsity of [facility] Heart rate 2023-01-13 18:49:00 63 /min [facility] Body temperature 2023-01-13 18:49:00 36.22 Adela Univ ersity of [place] [facility] Respiratory rate 2023-01-13 18:49:00 18 /min [facility] [place] [facility] Body height 2023-01-13 18:49:00 160 cm [facility] [place] [facility] Body weight 2023-01-13 18:49:00 55.792 kg [facility] [place] [facility] BMI 2023-01-13 18:49:00 21.79 kg/m2 Universi ty of [place] [facility] Oxygen saturation in 2023-01-13 18:49:00 100 /min University of Arterial blood by [place] [employer] [facility]erie Pulse oximetry Branch Systolic blood 2022-11-20 19:38:00 151 mm[Hg] Univer sity of pressure [place] [facility] Diastolic blood 2022-11-20 19:38:00 68 mm[Hg] Unive rsity of pressure [place] [facility] Heart rate 2022-11-20 19:35:00 68 /min [facility]i ty [facility] [place] [facility] Body temperature 2022-11-20 19:35:00 36.72 Adela [facility] [place] [facility] Respiratory rate 2022-11-20 19:35:00 18 /min Univ ers[facility] [place] [facility] Body height 2022-11-20 19:35:00 160 cm [facility] [place] [facility] Body weight 2022-11-20 19:35:00 61.508 kg [facility]i [facility] [place] [facility] BMI 2022-11-20 19:35:00 24.02 kg/m2 [facility] [place] [facility] Oxygen saturation in 2022-11-20 19:35:00 97 /min University of Arterial blood by [facility] valerie Pulse oximetry Branch Systolic blood 2022-11-20 20:41:00 170 mm[Hg] Univer sity of pressure [place] [facility] Diastolic blood 2022-11-20 20:41:00 72 mm[Hg] Unive rsity of pressure [place] [facility] Heart rate 2022-11-20 19:33:00 68 /min [facility]i ty [facility] [place] [facility] Body temperature 2022-11-20 19:33:00 36.72 Adela Univ ers[facility] [place] [facility] Respiratory rate 2022-11-20 19:33:00 18 /min Univ ersity [facility] [place] [facility] Body height 2022-11-20 19:33:00 160 cm [facility] [place] [facility] Body weight 2022-11-20 19:33:00 61.508 kg [facility]i [facility] [place] [facility] BMI 2022-11-20 19:33:00 24.02 kg/m2 [facility] [place] [facility] Oxygen saturation in 2022-11-20 19:33:00 97 /min University of Arterial blood by [facility] [place] [facility] Pulse oximetry Branch Systolic blood 2022-07-05 21:21:00 135 mm[Hg] Univer sity of pressure [facility] Diastolic blood 2022-07-05 21:21:00 82 mm[Hg] Unive rsity of pressure [facility] Heart rate 2022-07-05 21:21:00 81 /min Universi ty of [facility] Body temperature 2022-07-05 21:21:00 36.33 Ad[place]a Univ ersity of [facility] Respiratory rate 2022-07-05 21:21:00 18 /min Univ ersity of [facility] Body height 2022-07-05 21:21:00 160 cm Universi ty [facility] [place] Body weight 2022-07-05 21:21:00 58.514 kg [facility]i ty [facility] [place] [facility] BMI 2022-07-05 21:21:00 22.85 kg/m2 Universi ty [facility] [place] Oxygen saturation in 2022-07-05 21:21:00 98 /min University of Arterial blood by [facility] [place] [facility] Pulse oximetry Branch WEIGHT 2021-07-18 08:13:00 58.3 kg HEIGHT 2021-07-15 00:57:00 160 cm WEIGHT 2021-07-15 00:57:00 62.7 kg WEIGHT 2021-07-18 08:13:00 58.3 kg HEIGHT 2021-07-15 00:57:00 160 cm WEIGHT 2021-07-15 00:57:00 62.7 kg HEIGHT 2021-03-16 23:49:00 162.6 cm WEIGHT 2021-03-16 23:49:00 65.8 kg HEIGHT 2021-03-16 23:49:00 162.6 cm WEIGHT 2021-03-16 23:49:00 65.8 kg Systolic blood 2021-07-18 15:28:00 160 mm[Hg] [facility] Diastolic blood 2021-07-18 15:28:00 71 mm[Hg] [facility] Heart rate 2021-07-18 15:28:00 68 /min [facility] Body temperature 2021-07-18 15:28:00 36.22 Adela [facility] Respiratory rate 2021-07-18 15:28:00 18 /min [facility] Oxygen saturation in 2021-07-18 15:28:00 98 /min [facility] Arterial blood by Medical Ce nter Pulse oximetry Body weight 2021-07-18 08:13:00 58.3 kg [facility] BMI 2021-07-18 08:13:00 22.77 kg/m2 [facility] Body height 2021-07-16 09:55:00 160 cm [facility] Procedures Procedure Date / Time Performing Clinician Source Performed EXTERNAL PROVIDER 2023-01-31 05:01:00 Doctor Unassigned, No [facility] [place] RECORDS Name Medical Branch EXTERNAL PROVIDER 2023-01-15 05:01:00 Doctor Unassigned, No [facility] [place] RECORDS Name [facility] PNEUMOCOCCAL 20 2023-01-13 19:18:41 [facility] [place] CONJUGATE (PREVNAR 20) Medical [place] ranch VACCINE CBC (INCLUDES 2023-01-07 17:22:00 Kam Olivo [facility] DIFF/PLT)-Q [facility] HEALTH - OTHER 2022-12-09 05:01:00 Doctor Unassigned, No [facility] HOME HEALTH 485 2022-11-28 05:01:00 Doctor Unassigned, No [facility] HB ECG ROUTINE & RHYTHM 2022-11-20 20:34:57 Kam [facility]ivo [facility] CONSENT/REFUSAL FOR 2022-11-20 19:22:06 Doctor Unassigned, No [facility] [place] DIAGNOSIS AND TREATMENT Name Medical [place] EXTERNAL PROVIDER 2022-06-25 06:01:00 Doctor Unassigned, No [facility] [place] RECORDS Name [facility] DEXA PERIPHERAL 2022-04-08 18:40:16 Varsha Bernal [facility] (FOREARM) A Medical Branch DEXA AXIAL (HIP AND 2022-04-08 18:40:16 Varsha Bernal [facility] SPINE) A Medical Branch REFERRAL- 2022-03-28 05:01:00 Doctor Unassigned, No [facility] REQUEST/RESPONSE Name Medical Branch PHYSICIAN CERTIFICATION 2022-03-19 05:01:00 Doctor Unassigned, N o [facility] STATEMENT Name Medical Branch EXTERNAL PROVIDER 2022-03-05 05:01:00 Doctor Unassigned, No Univ [facility] RECORDS Name Medical Branch REFERRAL- 2022-02-11 05:01:00 Doctor Unassigned, No [facility] REQUEST/RESPONSE Name Medical Branch ARTERIAL (FLORECITA'S W/ 2021-07-18 14:44:00 Tala Zamorano [facility] DOPPLER) ONLY Center CAROTID DOPPLER 2021-07-18 14:44:[address] [facility] BILATERAL Center ARTERIAL DOPPLER LEGS 2021-07-17 15:30:00 Dasia Almanzar [facility] BILATERAL [facility] CBC W/PLT COUNT & AUTO 2021-07-17 04:11:00 [facility] MAGNESIUM 2021-07-17 04:11:00 [facility] 2021-07-17 04:11:00 [facility] CBC W/PLT COUNT & AUTO 2021-07-17 04:11:00 [facility] MR BRAIN WITHOUT IV 2021-07-16 14:25:00 Rosaura [facility] CONTRAST [facility] CBC W/PLT COUNT & AUTO 2021-07-16 04:23:00 [facility] Center MAGNESIUM 2021-07-16 04:23:00 Pitta [facility] PHOSPHORUS 2021-07-16 04:23:00 [facility] IRON, TIBC, % SAT. 2021-07-16 04:23:00 [facility] FERRITIN 2021-07-16 04:23:00 [facility] B-TYPE NATRIURETIC 2021-07-16 04:23:00 [facility] FACTOR (BNP) [facility] CBC W/PLT COUNT & AUTO 2021-07-16 04:23:00 [facility] CT BRAIN WITHOUT IV 2021-07-15 20:30:00 Hari Batista [facility] CONTRAST [facility] HIGH SENSITIVITY 2021-07-15 17:16:[address] [facility] TROPONIN I [place] URINALYSIS W/ REFLEX 2021-07-15 08:15:00 [facility] URINE CULTURE Center LIPID PANEL 2021-07-15 06:39:00 [facility] COMPREHENSIVE METABOLIC 2021-07-15 06:39:00 [facility] PANEL Center MAGNESIUM 2021-07-15 06:39:00 [facility] PHOSPHORUS 2021-07-15 06:39:00 [facility] HEMOGLOBIN A1C 2021-07-15 04:24:00 [facility] PROTHROMBIN TIME/INR 2021-07-15 04:24:00 [facility] APTT 2021-07-15 04:24:00 [facility] W/[facility]T COUNT & AUTO 2021-07-15 04:24:00 [facility] TSH/FREE T4 IF INDICATED 2021-07-15 04:24:00 [facility] T4, FREE 2021-07-15 04:24:00 [facility] CBC W/PLT COUNT & AUTO 2021-07-15 04:24:00 Pittard, Katie [facility] EKG-SCANNED 2021-07-15 00:00:00 Provider, Miya [facility] Plan of Care Planned Activity Planned Date Details Comments Source Future Scheduled 2023-01-24 COVID-19 VACCINE (#1) [facility] Test 01:44:17 [code = COVID-19 VACCINE (#1)] Future Scheduled 2023-01-24 SHINGLES VACCINES (1 Met [facility] Hospital Test 01:44:17 of 2) [code = SHINGLES VACCINES (1 of 2)] Future Scheduled 2023-01-24 65+ PNEUMOCOCCAL [facility] Test 01:44:17 VACCINE (1 - PCV) [code = 65+ PNEUMOCOCCAL VACCINE (1 - PCV)] Future Scheduled 2023-01-24 INFLUENZA VACCINE [facility] Test 01:44:17 [code = INFLUENZA VACCINE] Future Scheduled 2022-06-08 COVID-19 VACCINE (#[facility]) [facility] 17:32:49 [code = COVID-19 VACCINE (#1)] Future Scheduled 2022-06-08 SHINGLES VACCINES (1 [facility] Test 17:32:49 of 2) [code = [...] Date/Time Type Type Clinicians Facility Department ID 2023-04-25 2023-04-25 Outpatient MHIE MHIE [id number] Memoria 13:00:00 13:00:00 23 l Pepito 2023-02-21 2023-02-21 Outpatient R [facility] [id number] Univers 14:00:00 14:00:00 ity of [facility] 2023-02-07 2023-02-07 Outpatient R [facility] [id number] Univers 14:00:00 14:00:00 ity [facility] 2023-01-31 2023-01-31 Orders Doctor ALAN 1.2.840.114 [id number] Univers 00:00:00 00:00:00 Only Unassigned, ROSENDO 350.1.13.10 ity of [place] [facility] 4.2.7.2.686 Jose Elias as [id number] [address] 2023-01-22 2023-01-22 Telephone Juanito OKSHREYA 1.2.840.114 [id number] Univers 00:00:00 00:00:00 Kam SALDANA 350.1.13.10 [place] [phone] Md dical NAL 044 [facility] 2023-01-21 2023-01-21 Outpatient MHIE MHIE [id number] Memoria 11:15:00 11:15:00 22 westley Beyer 2023-01-21 2023-01-21 Outpatient MHIE MHIE [id number] Memoria 11:15:00 11:15:00 22 westley [place] 2023-01-15 2023-01-15 Orders Doctor ALAN 1.2.840.114 [id number] Univers 00:00:00 00:00:00 Only Unassigned, ROSENDO 350.1.13.10 [facility] 4.2.7.2.686 Jose Elias as [phone] [address] 2023-01-13 2023-01-13 Information Delivery Analyst 2, Adc Lab [facility] 1.2.840.114 [id number] Univers 14:45:00 15:10:32 Visit Kelli Koch 350.1.13.10 ity [facility] 4[place]2.7.2.[place] [id number] Md dical NAL 353 [facility] 2023-01-13 2023-01-13 Outpatient R AUGUST [facility] [id number] Univers 14:00:00 14:26:07 KELLI gardiner [facility] 2023-01-13 2023-01-13 [facility] 1.2.840.114 [id number] Univers 14:00:00 14:26:07 Visit Kelli SALDANA 350.1.13.10 i [place] [phone] Md dical NAL 044 [facility] 2023-01-13 2023-01-13 Telephone Juanito [facility] 1.2.840.114 [id number] Univers 00:00:00 00:00:00 Kam SALDANA 350.1.13.10 [place] [phone] Md dical NAL 044 [facility] 2023-01-13 2023-01-13 Patient [facility] 1.2.840.114 [id number] [facility] 00:00:00 00:00:00 Outreach Soni Hodges LES 350.1.13.10 [place] [phone] Md dical NAL 044 [facility] 2023-01-10 2023-01-10 Outpatient MHIE IE [id number] Memoria 13:15:00 13:15:00 21 westley [place] 2023-01-10 2023-01-10 Outpatient MHIE MHIE [id number] Memoria 13:15:00 13:15:00 21 westley [place] 2023-01-10 2023-01-10 [facility] 1.2.840.114 [id number] Univers 00:00:00 00:00:00 Oglichasilverfide SALDANA 350.1.13.10 [place] [phone] Md dical NAL [address] [place] [address] 2023-01-07 2023-01-07 Orders ALAN Olivo 1.2.840.114 [id number] Univers 00:00:00 00:00:00 Only Oglichasilveru ROSENDO 350.1.13.10 ity of [facility] 4.2.7.2.686 Jose Elias as [phone] [address] 2023-01-07 2023-01-07 Telephone Juanito [facility] 1.2.840.114 [id number] Univers 00:00:00 00:00:00 Oglichasilveru LES 350.1.13.10 [place] [phone] Md dical NAL 044 [facility] 2023-01-01 2023-01-01 Telephone Juanito [facility] 1.2.840.114 [id number] Univers 00:00:00 00:00:00 Ogwiliukwu [place] 350.1.13.10 [place]y of [place] [phone] Md dical NAL [address] [place] [address] 2022-12-31 2022-12-31 Refill Bernal, [facility] 1.2.840.114 [id number] Univers 00:00:00 00:00:00 Varsha LEWISTON 350.1.13.10 ity of [facility] 4.2.7.2.[place] [id number] Md dic[address] 2022-12-15 2022-12-15 Refill Juanito, [facility] 1.2.840.114 [id number] [facility] 00:00:00 00:00:00 Sharonukchristos [place] 350.1.13.10 ity of [facility] 4.2.7.2.[place] [phone] Md dicoh NAL [address] [place] [address] 2022-12-15 2022-12-15 Refill Bernal, [facility] 1.2.840.114 [id number] Univers 00:00:00 00:00:00 Varsha SALDANA 350.1.13.10 [place] of [place] [phone] Md dicoh NAL [address] [place] [address] 2022-12-10 2022-12-10 Outpatient MHIE MHIE [id number] Memoria 13:00:00 13:00:00 16 westley [place] 2022-12-10 2022-12-10 Outpatient MHIE MHIE [id number] Memoria 13:00:00 13:00:00 16 westley PepperPepito 2022-12-09 2022-12-09 Orders Doctor ALAN 1.2.840.114 [id number] [facility] 00:00:00 00:00:00 Only Unassigned, ROSENDO 350.1.13.10 [facility] 4.2.7.2.686 Jose Elias as [phone] [address] 2022-12-05 2022-12-05 Refill Bernal, [facility] 1.2.840.114 [id number] Univers 00:00:00 00:00:00 Varsha Boland [place] 350.1.13.10 ity of [facility] 4.2.7.2.[place] [phone] Md dical NAL [address] [place] [address] 2022-11-28 2022-11-28 Orders Doctor ALAN 1.2.840.114 [id number] Univers 00:00:00 00:00:00 Only Unassigned, ROSENDO 350.1.13.10 ity of [place] [facility] 4.2.7.2.686 Jose Elias as [phone] [address] 2022-11-25 2022-11-25 Telephone Juanito [facility] 1.2.840.114 [id number] Univers 00:00:00 00:00:00 Oglichasilverfide LEWISCARMENZA 350.1.13.10 [place] of [place] [phone] Md dical NAL [address] [place] [address] 2022-11-21 2022-11-21 Telephone Juanito [facility] 1.2.840.114 [id number] Univers 00:00:00 00:00:00 Oglichachristos [place] 350.1.13.10 [place] of [place] [phone] Md dical NAL [address] [place] [address] 2022-11-20 2022-11-20 Office Juanito [facility] 1.2.840.114 [id number] Univers 15:30:00 16:23:11 Visit Kam SALDANA 350.1.13.10 [place]y of [place] [phone] Md dical NAL [address] [place] [address] 2022-11-20 2022-11-20 Outpatient R KAM OLIVO [facility] [id number] Univers 15:30:00 16:23:11 KAM OLIVO ity of [facility] 2022-11-20 2022-11-20 Office Juanito [facility] 1.2.840.114 [id number] Univers 14:30:00 16:22:57 Visit Kam SALDANA 350.1.13.10 ity of [facility] 4.2.7.2.[place] [phone] Md dical NAL 044 [facility] 2022-11-20 2022-11-20 Orders Doctor ALAN 1.2.840.114 [id number] Univers 00:00:00 00:00:00 Only Unassigned, ROSENDO 350.1.13.10 ity of [place] [facility] 4.2.7.2.686 Jose Elias as [phone] [facility] [address] [place] 2022-11-20 2022-11-20 Refill Juanito [facility] 1.2.840.114 [id number] Univers 00:00:00 00:00:00 [facility] [place] 350.1.13.10 [place] of [place] [phone] Md dical NAL 044 [facility] 2022-11-13 2022-11-13 Patient Doctor ALAN 1.2.840.114 [id number] Univers 00:00:00 00:00:00 Secure Msg Unassigned, ROSENDO 350.1.13.10 ity of [place] [facility] 4.2.7.2.686 Jose Elias as [phone] [facility] [address] [place] 2022-10-18 2022-10-18 Outpatient MHIE MHIE [id number] Memoria 13:30:00 13:30:00 20 westley [place] 2022-10-18 2022-10-18 Outpatient MHIE MHIE [id number] Memoria 13:30:00 13:30:00 20 westley Beyer 2022-07-19 2022-07-19 Outpatient MHIE MHIE [id number] Memoria 13:00:00 13:00:00 19 westley Beyer 2022-07-19 2022-07-19 Outpatient MHIE MHIE [id number] Memoria 13:00:00 13:00:00 19 westley Beyer 2022-07-05 2022-07-05 Outpatient R KAM OLIVO [facility] [id number] Univers 15:30:00 16:27:49 KAM OLIVO ity of [facility] 2022-07-05 2022-07-05 Office Juanito OKSHREYA 1.2.840.114 [id number] Univers 15:30:00 16:27:49 Visit Kam SALDA[place] 350.1.13.10 [place] of [place] [id number] Md dic[address] 2022-07-01 2022-07-01 Outpatient MHIE MHIE [id number] Memoria 10:30:00 10:30:00 18 [facility] 2022-07-01 2022-07-01 Outpatient MHIE MHIE [id number] Memoria 10:30:00 10:30:00 18 [facility] 2022-07-01 2022-07-01 Telephone JuanitoFormerly [facility] 1.2.840.114 [id number] Univers 00:00:00 00:00:00 Kam [facility] 350.1.13.10 [place] of [place] [phone] [address] 2022-06-28 2022-06-28 [id number] Univers 15:00:00 15:00:00 VARSHA gardiner [facility] 2022-06-28 2022-06-28 Outpatient MHIE MHIE [id number] Memoria 14:30:00 14:30:00 17 [facility] 2022-06-28 2022-06-28 Outpatient MHIE MHIE [id number] Memoria 14:30:00 14:30:00 17 [facility] 2022-06-25 2022-06-25 Orders Doctor ALAN 1.2.840.114 [id number] Univers 00:00:00 00:00:00 Only Unassigned, ROSENDO 350.1.13.10 ity of [place] [facility] 4.2.7.2.686 Jose Elias as [phone] [address] 2022-06-21 2022-06-21 Telephone [facility] 1.2.840.114 [id number] Univers 00:00:00 00:00:00 Edgardo SALDANA 350.1.13.10 i ty of [place] [id number] Md dical NAL 044 [facility] 2022-06-10 2022-06-10 Outpatient MHIE IE [id number] Memoria 13:00:00 13:00:00 15 westley Beyer 2022-06-10 2022-06-10 Outpatient MHIE IE [id number] Memoria 13:00:00 13:00:00 15 westley Beyer 2022-05-06 2022-05-06 Telephone [facility] 1.2.840.114 [id number] Univers 00:00:00 00:00:00 Varsha A [place] 350.1.13.10 ity of [place] [id number] Md magdy MADRID 044 [facility] 2022-04-24 2022-04-24 Outpatient MHIE IE [id number] Memoria 14:30:00 14:30:00 14 westley Beyer 2022-04-24 2022-04-24 Outpatient MHIE IE [id number] Memoria 14:30:00 14:30:00 14 westley Beyer 2022-04-19 2022-04-19 [facility]ill [facility] 1.2.840.114 [id number] Univers 00:00:00 00:00:00 Varsha A [place] 350.1.13.10 [place]y of [place] [id number] Md magdy MADRID 231 [facility] 2022-04-18 2022-04-18 [facility]phone [facility] 1.2.840.114 [id number] Univers 00:00:00 00:00:00 Varsha A [place] 350.1.13.10 ity of [facility] 4.2.7.2.[place] [id number] Md magdy MADRID 044 [facility] 2022-04-10 2022-04-10 Patient [facility] 1.2.840.114 [id number] Univers 00:00:00 00:00:00 Secure Msg Varsha A [place] 350.1.13.10 ity of [facility] 4.2.7.2.[place] [id number] [address] 2022-04-08 2022-04-08 Outpatient R [facility] [id number] Univers 12:50:09 23:59:00 VARSHA ity of [facility] 2022-04-08 2022-04-08 [facility] 1.2.840.114 [id number] Univers 12:50:09 23:59:00 Encounter Varsha SALDANA 350.1.13.10 [place] of [place] L[place] [id number] [facility] [address] [place] 2022-03-28 2022-03-28 Orders Doctor ALAN 1.2.840.114 [id number] Univers 00:00:00 00:00:00 Only Unassigned, ROSENDO 350.1.13.10 ity of [place] [facility] 4.2.7.2.686 Jose Elias as [id number] [facility] [address] [place] 2022-03-21 2022-03-21 [facility] 1.2.840.114 [id number] Univers 00:00:00 00:00:00 Varsha SALDANA 350.1.13.10 [place]y of [place] [id number] Md dic[address] 2022-03-19 2022-03-19 Orders Doctor ALAN 1.2.840.114 [id number] Univers 00:00:00 00:00:00 Only Unassigned, ROSENDO 350.1.13.10 ity of [place] [facility] 4.2.7.2.686 Jose Elias as [phone] [facility] [address] [place] 2022-03-05 2022-03-05 Orders Doctor ALAN 1.2.840.114 [id number] Univers 00:00:00 00:00:00 Only Unassigned, ROSENDO 350.1.13.10 ity of [place] [facility] 4.2.7.2.686 Jose Elias as [id number] [facility] [address] [place] 2022-02-18 2022-02-18 Outpatient R [facility] [id number] Univers 15:40:00 16:54:42 VARSHA itmdaeline [facility] 2022-02-18 2022-02-18 [facility] 1.2.840.114 [id number] Univers 15:40:00 16:54:42 Visit Varsha SALDANA 350.1.13.10 ity of [place] [id number] [address] 2022-02-18 2022-02-18 [facility] [id number] Univers 15:40:00 16:54:42 VARSHA gardiner [facility] 2022-02-18 2022-02-18 Telephone [facility] 1.2.840.114 [id number] Univers 00:00:00 00:00:00 Varsha SALDANA 350.1.13.10 ity of [facility] 4.2.7.2.[place] [id number] [address] 2022-02-18 2022-02-18 Telephone [facility] 1.2.840.114 [id number] Univers 00:00:00 00:00:00 Varsha [place]IST[place] 350.1.13.10 ity of [place].2.[place] [phone] [address] 2022-02-11 2022-02-11 Patient [facility] 1.2.840.114 [id number] Univers 00:00:00 00:00:00 Secure Msg Varsha A [place] 350.1.13.10 ity of [place] 4[place]7.2.[place] [id number] [address] 2022-02-11 2022-02-11 Orders Doctor ALAN 1.2.840.114 [id number] Univers 00:00:00 00:00:00 Only Unassigned, ROSENDO 350.1.13.10 ity of [place] [facility] 4.2.7.2.686 Jose Elias as [phone] [address] 2022-01-25 2022-01-25 [facility] 1.2.840.114 [id number] Univers 00:00:00 00:00:00 Secure Msg Varsha SALDA[place] 350.1.13.10 [place] of [place] [id number] [facility] 231 [facility] 2022-01-22 2022-01-22 Orders Doctor ALAN 1.2.840.114 [id number] Univers 00:00:00 00:00:00 Only Unassigned, ROSENDO 350.1.13.10 [facility] 4.2.7.2.686 Jose Elias as [id number] [address] 2022-01-22 2022-01-22 Patient [facility] 1.2.840.114 [id number] Univers 00:00:00 00:00:00 Secure Msg Varsha SALDANA 350.1.13.10 ity of [facility] 4.2.7.2.[place] [id number] Md dical [facility] 044 [facility] 2022-01-21 2022-01-21 Office Juanito, [facility] 1.2.840.114 [id number] Univers 15:00:00 16:18:21 Visit Kam JOSHUACARMENZA 350.1.13.10 ity of [facility] 4.2.7.2.[place] [id number] Md dical NAL 044 [facility] 2022-01-21 2022-01-21 Outpatient R KAM OLIVO [facility] [id number] Univers 15:00:00 16:18:21 KAM OLIVO ity [facility] 2022-01-21 2022-01-21 Outpatient R KAM OLIVO [facility] [id number] Univers 15:00:00 15:00:00 KAM OLIVO ity [facility] 2022-01-10 2022-01-10 Outpatient MHIE MHIE [id number] Memoria 14:15:00 14:15:00 13 westley [place] 2022-01-10 2022-01-10 Outpatient MHIE MHIE [id number] Memoria 14:15:00 14:15:00 13 westley PepperPepito 2022-01-10 2022-01-10 Orders Doctor ALAN 1.2.840.114 [id number] Univers 00:00:00 00:00:00 Only Unassigned, ROSENDO 350.1.13.10 ity of [place] [facility] 4.2.7.2.686 Jose Elias as [id number] [address] 2022-01-09 2022-01-09 Outpatient MHIE MHIE [id number] Memoria 13:15:00 13:15:00 12 westley [place] 2022-01-09 2022-01-09 Outpatient MHIE MHIE [id number] Memoria 13:15:00 13:15:00 12 westley [place] 2022-01-03 2022-01-03 Telephone [facility] 1.2.840.114 [id number] Univers 00:00:00 00:00:00 Varsha SALDANA 350.1.13.10 [place] of [place] [id number] Md dical [facility] 044 [facility] 2021-12-27 2021-12-27 Telephone [facility] 1.2.840.114 [id number] Univers 00:00:00 00:00:00 Varsha LEWISTON 350.1.13.10 ity of [facility] [place] [phone] Md dical NAL 231 [facility] 2021-12-21 2021-12-21 Refill [facility] 1.2.840.114 [id number] Univers 00:00:00 00:00:00 Varsha A JOSHUATON 350.1.13.10 ity of [facility] [place] [phone] Md dical NAL 231 [facility] 2021-12-17 2021-12-17 Orders Dolores ALAN 1.2.840.114 [id number] Univers 00:00:00 00:00:00 Only Vrasha Kya ROBBINS 350.1.13.10 ity of [facility] 4.2.7.2.686 Jose Elias as [phone] [address] 2021-12-11 2021-12-11 [facility] 1.2.840.114 [id number] Univers 00:00:00 00:00:00 Varsha SALDANA 350.1.13.10 [place] [phone] [facility] 231 [facility] 2021-12-11 2021-12-11 Telephone Dolores [facility] 1.2.840.114 [id number] Univers 00:00:00 00:00:00 Varsha SALDANA 350.1.13.10 [place] [phone] [facility] 044 [facility] 2021-12-03 2021-12-04 [facility] 1.2.840.114 [id number] Univers 15:00:00 08:35:47 Visit Varsha SALDANA 350.1.13.10 [place] [phone] Md dic[address] 2021-12-03 2021-12-04 Outpatient R DOLORES [facility] [id number] Univers 15:00:00 08:35:47 VARSHA gardiner [facility] 2021-12-03 2021-12-03 Outpatient R DOLORES [facility] [id number] Univers 15:00:00 15:00:00 VARSHA gardiner [facility] 2021-12-03 2021-12-03 Outpatient R DOLORES [facility] [id number] Univers 15:00:00 15:00:00 VARSHA gardiner [facility] 2021-11-28 2021-11-28 Orders ALAN Bernal 1.2.840.114 [id number] Univers 00:00:00 00:00:00 Only Varsha Kya ROSENDO 350.1.13.10 ity of [facility] 4.2.7.2.686 Jose Elias as [phone] [address] 2021-11-27 2021-11-27 Telephone [facility] 1.2.840.114 [id number] [facility] 00:00:00 00:00:00 Varsha Kya LEWISTON 350.1.13.10 [place] [phone] [address] 2021-11-23 2021-11-23 Telephone [facility] 1.2.840.114 [id number] [facility] 00:00:00 00:00:00 Varshajason [place] 350.1.13.10 [place] [id number] [address] 2021-11-15 2021-11-15 Telephone [facility] 1.2.840.114 [id number] [facility] 00:00:00 00:00:00 Varsha Kya JOSHUATON 350.1.13.10 [place] [id number] [address] 2021-10-13 2021-10-13 Orders Doctor PHILLIPS 1.2.840.114 [id number] [facility] 00:00:00 00:00:00 Only Unassigned, ROSENDO 350.1.13.10 ity of [place] [facility] 4.2.7.2.686 Jose Elias as [phone] [address] 2021-10-10 2021-10-10 Outpatient MHIE MHIE [id number] [address] 14:15:00 14:15:00 11 [place] 2021-10-10 2021-10-10 Outpatient MHIE MHIE [id number] [address] 14:15:00 14:15:00 11 westley Pepper[place] 2021-10-03 2021-10-03 [facility] 1.2.840.114 [id number] [facility] 00:00:00 00:00:00 Varsha SALDANA 350.1.13.10 [place] [id number] [address] 2021-09-27 2021-09-27 [id number] Univers 10:00:00 12:08:09 VARSHA ity of [facility] 2021-09-27 2021-09-27 Office [facility] 1.2.840.114 [id number] Univers 10:00:00 12:08:09 Visit Varsha SALDANA 350.1.13.10 [place] [phone] [address] 2021-09-27 2021-09-27 [facility]phone [facility] 1.2.840.114 [id number] [facility] 00:00:00 00:00:00 Varsha SALDANA 350.1.13.10 [place] [phone] [address] 2021-09-27 2021-09-27 Orders Doctor ALAN 1.2.840.114 [id number] [facility] 00:00:00 00:00:00 Only Unassigned, ROSENDO 350.1.13.10 [facility] 4.2.7.2.686 Jose Elias as [phone] [address] 2021-08-28 2021-08-28 Outpatient MHIE MHIE [id number] [address] 15:15:00 15:15:00 10 westley Beyer 2021-08-28 2021-08-28 Outpatient MHIE MHIE [id number] [address] 15:15:00 15:15:00 10 westley Beyer 2021-08-08 2021-08-08 Outpatient MHIE MHIE [id number] [address] 15:30:00 15:30:00 09 westley Beyer 2021-08-08 2021-08-08 Outpatient MHIE MHIE [id number] [address] 15:30:00 15:30:00 09 westley Beyer 2021-07-15 2021-07-18 Hospital ER Orlando Barreto [facility] [id number] [facility] 00:[facility] 17:11:00 Encounter Dasia Almanzar [facility] 2021-07-15 2021-07-18 Inpatient ER CALLY [facility] Neuro ICU [id number] SLE 00:36:00 17:11:00 JENNIE 2021-07-15 2021-07-15 Travel [facility] [id number] [facility] 00[facility]:00 [facility] 2021-06-05 2021-06-05 Orders Doctor ALAN 1.2.840.114 [id number] Univers 00:00:00 00:00:00 Only Unassigned, ROSENDO 350.1.13.10 ity of [place] [facility] 4.2.7.2.686 Jose Elias as [phone] [facility] valerie [address] 2021-03-16 2021-03-27 Inpatient ER RAJANI [facility] General Med [id number] [facility] 23:39:00 12:45:00 BRIGID 2019-08-19 2019-08-19 Outpatient MHIE MHIE [id number] 15:30:00 15:30:00 08 westley Beyer 2019-08-19 2019-08-19 Outpatient MHIE MHIE [id number] 15:30:00 15:30:00 08 westley Beyer 2019-01-12 2019-01-12 Outpatient MHIE MHIE [id number] 13:00:00 13:00:00 07 westley Beyer 2019-01-12 2019-01-12 Outpatient MHIE MHIE [id number] 13:00:00 13:00:00 06 westley Beyer 2019-01-12 2019-01-12 Outpatient MHIE MHIE [id number] 13:00:00 13:00:00 07 westley Beyer 2019-01-12 2019-01-12 Outpatient MHIE MHIE [id number] 13:00:00 13:00:00 06 l [place] 2018-10-13 2018-10-13 Outpatient MHIE MHIE [id number] 15:15:00 15:15:00 05 l [place] 2018-10-13 2018-10-13 Outpatient MHIE MHIE [id number] 15:15:00 15:15:00 05 l [place] 2018-09-01 2018-09-01 Outpatient MHIE MHIE [id number] [address] 14:00:00 14:00:00 04 l [place] 2018-09-01 2018-09-01 Outpatient MHIE MHIE [id number] 14:00:00 14:00:00 04 l [place] 2018-05-29 2018-05-29 Outpatient MHIE MHIE [id number] 14:15:00 14:15:00 03 l [place] 2018-05-29 2018-05-29 Outpatient MHIE MHIE [id number] 14:15:00 14:15:00 03 l [place] 2018-04-16 2018-04-16 Outpatient MHIE MHIE [id number] 15:30:00 15:30:00 02 l [place] 2018-04-16 2018-04-16 Outpatient MHIE MHIE [id number] 15:30:00 15:30:00 02 l [place] 2018-04-02 2018-04-02 Outpatient MHIE MHIE [id number] [address] 15:00:00 15:00:00 01 l [place] 2018-04-02 2018-04-02 Outpatient MHIE MHIE [id number] [address] 15:00:00 15:00:00 01 l [place] 2018-03-31 2018-03-31 Outpatient MHIE MHIE [id number] 14:15:00 14:15:00 00 l [place] 2018-03-31 2018-03-31 Outpatient MHIE MHIE [id number] [address] 14:15:00 14:15:00 00 westley Beyer Results Test Description Test Time Test Comments Results Result Comments Source CBC (INCLUDES DIFF/PLT)-Q 2023-01-08 10:00:00 Test Item Value Reference Range Interpretation Comme nts WHITE BLOOD CELL COUNT-Q 7.5 See_Comment [A utomated message] The (test code = 6690-2) system which generated this result tra nsmitted reference range : 3.8 - 10.8 Thousand/u L. The reference range was not used to interpr et this result as mary l/abnormal. RED BLOOD CELL COUNT-Q 2.79 See_Comment L [Aut omated message] The (test code = 789-8) system w Pikimal generated this result tra nsmitted reference range : 3.80 - 5.10 Million/uL . The reference range was not used to interpr et this result as mary l/abnormal. HEMOGLOBIN-Q (test code = 8.2 g/dL 11.7-15.5 L 718-7) HEMATOCRIT-Q (test code = 25.8 % 35.0-45.0 L 4544-3) MCV-Q (test code = 787-2) 92.5 fL 80.0-100.0 MCH-Q (test code = 785-6) 29.4 pg 27.0-33.0 MCHC-Q (test code = 31.8 g/dL 32.0-36.0 L 786-4) RDW-Q (test code = 788-0) 14.4 % 11.0-15.0 PLATELET COUNT-Q (test 271 See_Comment [Aut omated message] The code = 777-3) system which g enerated this result tra nsmitted reference range : 140 - 400 Thousand/uL. Th e reference range was not u sed to interpret this result as normal/abnormal . MPV-Q (test code = 776-5) 11.1 fL 7.5-12.5 ABSOLUTE NEUTROPHILS-Q 5940 See_Comment [Aut omated message] The (test code = 751-8) system w Pikimal generated this result tra nsmitted reference range : 1500 - 7800 cells/uL. The reference range was not used to interpr et this result as mary l/abnormal. ABSOLUTE LYMPHOCYTES-Q 998 See_Comment [Aut omated message] The (test code = 731-0) system w Pikimal generated this result tra nsmitted reference range : 850 - 3900 cells/uL. The reference range was not used to interpr et this result as mary l/abnormal. ABSOLUTE MONOCYTES-Q 450 See_Comment [Autom ated message] The (test code = 742-7) system w InSightec generated this result tra nsmitted reference range : 200 - 950 cells/uL. The r eference range was not u sed to interpret this result as normal/abnormal . ABSOLUTE EOSINOPHILS-Q 90 See_Comment [Aut omated message] The (test code = 711-2) system w InSight[employer] generated this result tra nsmitted reference range : 15 - 500 cells/uL. The r eference range was not u sed to interpret this result as normal/abnormal . ABSOLUTE BASOPHILS-Q 23 See_Comment [Autom ated message] The (test code = 704-7) system w InSight[employer] generated this result tra nsmitted reference range : 0 - 200 cells/uL. The r eference range was not u sed to interpret this result as normal/abnormal . NEUTROPHILS-Q (test code 79.2 % = 770-8) LYMPHOCYTES-Q (test code 13.3 % = 736-9) MONOCYTES-Q (test code = 6.0 % 5905-5) EOSINOPHILS-Q (test code 1.2 % = 713-8) BASOPHILS-Q (test code = 0.3 % 706-2) MAIN (test code = MAIN) PERFORMED BY [employer]; [address] [place] [address]. [place] [address]; MARY ELLEN SÁNCHEZ MD Lab Interpretation (test Abnormal code = 03915-2) [facility]ot[facility] doppler pfpvdybgs4795-91-18 16:08:19 Ejection FractionSLEH ECHO HEARTLAB [facility]Gr[facility] FLORECITA's Only(Ankle/Brachial Index)2021-07-18 16:05:06Ejection FractionSLEH ECHO HEARTLAB SellplexB[facility]angeArterial doppler legs [id number] 10:18:06Ejection FractionSLEH ECHO HEARTLAB MKCKESSON [facility]-25 05:27:38 Test Item Value Reference Range Interpretation Comments MAGNESIUM (BEAKER) (test code = 1.7 mg/dL 1.6-2.6 627) Screen Repairer Crusher ID - CATRACHO [id number] 05:27:38 Test Item Value Reference Range Interpretation Comments PHOSPHORUS (BEAKER) (test code = 4.1 mg/dL 2.3-4.7 604) Screen Repairer Crusher LUPE HAYDEN MCBC W/PLT COUNT & AUTO [id number] 04:46:17 Test Item Value Reference Range Interpretation [...] (test code = 2801) MR, BRAIN, WITHOUT [id number] 15:06:00Post tpa imagingUnlisted Reason for Exam - Click Yes and Enter Reason Below->No [facility] : 1935 Sex: FFINAL REPORT MR, BRAIN, [...] conversion or significant mass effect. Signed: Vani Shelby MDReport Verified Date/Time: 07/16/2021 15:06:46 Reading Location: [address] Neuro Reading Room [id number] 05:34:46 Test Item Value Reference Range Interpretation Comments FERRITIN (BEAKER) (test code = 430.07 ng/mL 5.00-275.00 H 361) Screen Repairer Crusher ID - DEWAYNE [id number] 05:18:22 Test Item Value Reference Range Interpretation Comments PHOSPHORUS (BEAKER) (test code = 4.3 mg/dL 2.3-4.7 604) Screen Repairer Crusher ID - [id number] 05:18:21 Test Item Value Reference Range Interpretation Comments MAGNESIUM (BEAKER) (test code = 1.7 mg/dL 1.6-2.6 627) Screen Repairer Crusher ID - JENNIRON, TIBC, % SAT. (WITHOUT FERRITIN)2021-07-16 05:14:16 Test Item Value Reference Range Interpretation Comments IRON (BEAKER) (test code = 547) 31.0 ug/dL 40.0-160.0 L TOTAL IRON BINDING CAPACITY 219 ug/dL 250-450 L (BEAKER) (test code = 769) IRON % SATURATION (2) (BEAKER) 14 % 20-55 L (test code = 2590) Screen Repairer Crusher ID - DEWAYNE WB-TYPE NATRIURETIC FACTOR (BNP)2021-07-16 05:06:56 Test Item Value Reference Range Interpretation Comments B-TYPE NATRIURETIC PEPTIDE (BEAKER) 399 pg/mL 0-100 H (test code = 700) Screen Repairer Crusher ID - DEWAYNE WCBC W/PLT COUNT & AUTO [id number] 04:43:46 Test Item Value Reference Range Interpretation [...] (test code = 2801) CT, BRAIN, WITHOUT [id number] 03:11:00Unlisted Reason for Exam - Click Yes and Enter Reason Below->YesUnlisted Reason for Exam->s/p tpa [facility] : 1935 Sex: FFINAL REPORT EXAM: CT, [...] is recommended for further characterization. Signed: [facility] Verified Date/Time: 07/16/2021 03:11:31 High Sensitivity Troponin I ([facility]/Johnny Only)2021-07-15 18:04:16 Test Item Value Reference Range Interpretation Comments Troponin I HS (test 28 pg/ml See_Comment H [Automa vero code = 77376-9) message] The system which generated this result transmitted reference range : <=17. The reference range was not used to interpret this result as normal/abnormal . MAIN (test code = Screen Repairer Crusher ID - MAIN) DBThe ALLERGY AND IMMUNOLOGY CHIEF STAT High Sensitivity Troponin-I results should be used in conjunction with other diagnostic information such as ECG, clinical observations and information, and patient symptoms to aid in the diagnosis of WI. Lab Interpretation Abnormal (test code = 72371-1) [facility] TROPONIN [id number] 18:04:16 Test Item Value Reference Range Interpretation Comments HIGH SENSITIVITY 28 pg/ml See_Comment H [Automated message] TROPONIN I (test code = The system which 1008404) generated this result transmitted ref erence range: <=17. Th e reference range was not used to int erpret this result as normal/abnormal . Screen Repairer Crusher ID - DBThe ALLERGY AND IMMUNOLOGY CHIEF STAT High Sensitivity Troponin-I results should be used in conjunctionwith other diagnostic information such as ECG, clinical observations and information, and patient symptoms to aid in the diagnosis of WI.Hemoglobin [id number] 09:45:23 Test Item Value Reference Range Interpretation [...] ADM Lab Interpretation Normal (test code = 02508-1) [facility]MO[facility] [id number] 09:45:23 Test Item Value Reference Range Interpretation [...] 5.7- 6.4% indicates increased risk for diabetes (prediabetes)."Screen Repairer Crusher ID - ADM Urinalysis w/Microscopic + Reflex to [id number] 09:16:27 Test Item Value Reference Range Interpretation Comments Color, UA (test code Light Yellow = 5778-6) Clarity, UA (test Hazy code = 5767-9) Specific [place], UA 1.013 1.001-1.035 (test code = 5811-5) pH, UA (test code = 6.0 5.0-8.0 5803-2) Protein, UA (test 50 mg/dL Negative A code = 40573-2) Glucose, UA (test Negative Negative code = 365) Ketones, UA (test Negative Negative code = 2514-8) Bilirubin, UA (test Negative Negative code = 24327-8) Blood, UA (test code Trace Negative A = 79469-4) Nitrite, UA (test Negative Negative code = 5802-4) Leukocytes, UA (test Small Negative A code = 5799-2) Urobilinogen, UA 0.2 mg/dL 0.2-1.0 (test code = 22456-4) RBC, UA (test code = 1 See_Comment [Autom ated 08761-6) message] The system which generated this result [...] . Bacteria, UA (test Occasional code = 90568-4) Squam Epithel, UA 2 See_Comment [Automate d (test code = 23341-3) messag e] The system which generated this result transmitted reference range : /HPF. The reference range was not used to interpret this result as normal/abnormal . Hyaline Casts, UA 3 See_Comment [Automate d (test code = 15910-5) messag e] The system which generated this result transmitted reference range : /LPF. The reference range was not used to interpret this result as normal/abnormal . Crystals, Urine (test Occasional code = 59337-5) Specimen Source (test code = 2795) MAIN (test code = MAIN) Screen Repairer Crusher ID - [auto]Screen Repairer Crusher ID - tech Lab Interpretation Abnormal (test code = 32596-2) [facility]/ REFLEX URINE [id number] 09:16:27 Test Item Value Reference Range Interpretation [...] = 1521) SOURCE(BEAKER) (test code = 2795) Screen Repairer Crusher ID - [auto]Screen Repairer Crusher ID - techT4, [id number] 08:03:16 Test Item Value Reference Range Interpretation Comments Free T4 (test code = 1.08 ng/dL 0.70-1.48 3024-7) MAIN (test code = MAIN) Screen Repairer Crusher ID - SHAE L Lab Interpretation (test Normal code = 03888-4) [facility] Hospital[facility], [id number] 08:03:16 Test Item Value Reference Range Interpretation Comments FREE T4 (BEAKER) (test code = 655) 1.08 ng/dL 0.70-1.48 Screen Repairer Crusher ID - SHAE LLipid [id number] 07:14:54 Test Item Value Reference Range Interpretation Comments Triglycerides (test 60 mg/dL Specimen code = 2571-8) slightly hemolyzed Cholesterol (test 121 mg/dL Specimen code = 2093-3) slightly hemolyzed HDL (test code = 48 mg/dL 2085-9) LDL Calculated (test 61 mg/dL code = 70450-4) MAIN (test code = Triglyceride MAIN) Reference Range: Low Risk <150 Borderline 150-199 High Risk 200-499 Very High Risk >=500 Cholesterol Reference Range: Low Risk <200 Borderline 200-239 High Risk >240 HDL Cholesterol Reference Range: Low Risk >=60 High Risk <40 LDL Cholesterol Reference Range: Optimal <100 Near Optimal 100-129 Borderline 130-159 High 160-189 Very High >=190 Screen Repairer Crusher LUPE GEEDOUGLAS Hodges [facility] CenterLIPID [id number] 07:14:54 Test Item Value Reference Range Interpretation [...] Borderline 130-159 High 160-189 Very High >=190 Screen Repairer Crusher LUPE KAUFMAN LComprehensive metabolic [id number] 07:14:53 Test Item Value Reference Range Interpretation Comments Protein, Total (test 5.1 See_Comment L Specime n slightly code = 4125-2) hemolyzed [Automated message] The system which generated this result transmit vero reference range : 6.0 - 8.3 gm/dL . The reference range was not u sed to interpret th is result as normal/abnormal . Albumin (test code = 3.1 g/dL 3.5-5.0 L Specime n slightly 27633-3) hemolyzed Alkaline Phosphatase 69 U/L 40-150 (test code = 6768-6) Total Bilirubin (test 0.3 mg/dL 0.2-1.2 Specim en slightly code = 1975-2) hemolyzed Sodium (test code = 139 meq/L 550-849 1273-2) Potassium (test code 5.0 meq/L 3.5-5.1 Specime n slightly = 4403-3) hemolyzed Chloride (test code = 113 meq/L 98-107 H 2075-0) CO2 (test code = 20 meq/L 22-29 L 8-9) BUN (test code = 27 mg/dL 7-21 H 3094-0) Creatinine (test code 1.52 mg/dL 0.57-1.25 H Specim en slightly = 2160-0) hemolyzed Glucose (test code = 85 mg/dL 70-105 2345-7) Calcium (test code = 8.4 mg/dL 8.4-10.2 31554-3) AST (test code = 16 U/L 5-34 Specimen sl ightly 1920-8) hemolyzed ALT (test code = 10 U/L 6-55 Specimen sl ightly 1742-6) hemolyzed EGFR (test code = 33 mL/min/1.73 [place] [address]-7) NOT ACCURATE CREATININE CLEARANCE IN PREDICTING GLOMERULAR FILTRATION RATE . ESTIMATED GFR I S NOT APPLICABLE FOR DIALYSIS PATIEN TS. MAIN (test code = MAIN) Screen Repairer Crusher ID - PIAYA L Lab Interpretation Abnormal (test code = 59432-3) [facility] [id number] 07:14:53 Test Item Value Reference Range Interpretation Comments MAGNESIUM (BEAKER) 1.7 mg/dL 1.6-2.6 Specimen slightly (test code = 627) hemolyzed Screen Repairer Crusher ID - PIAYA [id number] 07:14:53 Test Item Value Reference Range Interpretation Comments PHOSPHORUS (BEAKER) 4.6 mg/dL 2.3-4.7 Specimen slightly (test code = 604) hemolyzed Screen Repairer Crusher ID - PIAYA LCOMPREHENSIVE METABOLIC [id number] 07:14:53 Test Item Value Reference Range Interpretation [...] S NOT APPLICABLE FOR DIALYSIS PATIEN TS. Screen Repairer Crusher ID Nakita KAUFMAN LTSH/Free T4 If [id number] 05:50:44 Test Item Value Reference Range Interpretation Comments TSH (test code = 0.192 See_Comment L [Automated 94723-0) message] The system which generated this result transmit vero reference range : 0.350 - 4.940 uIU/mL. The reference range was not used to interpret this result as normal/abnormal . MAIN (test code = MAIN) Screen Repairer Crusher ID - SHAE Hodges Lab Interpretation Abnormal (test code = 07732-9) [facility] Hospital[facility]SH/FREE T4 IF [id number] 05:50:44 Test Item Value Reference Range Interpretation Comments THYROID STIMULATING HORMONE 0.192 uIU/mL 0.350-4.940 L (BEAKER) (test code = 772) Screen Repairer Crusher ID Nakita [id number] 05:00:52 Test Item Value Reference Range Interpretation Comments PTT (test code = 06209-0) 28.4 See_Comment [ Automated message] The system Deep[employer] generated this result transmitted ref erence range: 22.5 - 3 6.0 seconds. The re ference range was not u sed to interpret this result as normal/abnor mal. Lab Interpretation (test Normal code = 94640-4) [facility] HospitalAPTT2022-01-23 05:00:52 Test Item Value Reference Range Interpretation Comments PARTIAL THROMBOPLASTIN TIME 28.4 seconds 22.5-36.0 (BEAKER) (test code = 760) Prothrombin time/[id number] 05:00:11 Test Item Value Reference Interpretation Comments Range Protime (test code = 13.2 See_Comment [Autom ated 5902-2) message] The system which generated this result transmitted reference range : 11.9 - 14.2 seconds. The reference range was not used to interpret this result as normal/abnormal . INR (test code = 1.02 See_Comment [Automated 6301-6) message] The system which generated this result [...] valves. Lab Interpretation Normal (test code = 10161-9) [facility] HospitalPROTHROMBIN TIME/[id number] 05:00:11 Test Item Value Reference Range Interpretation Comments PROTIME (BEAKER) 13.2 seconds 11.9-14.2 (test code = 759) INR (BEAKER) (test 1.02 See_Comment [Automat ed message] code = 370) The system [employer]Flex generated this result transmitted ref erence range: <=5.90. The reference range was not used to int erpret this result as normal/abnormal . RECOMMENDED COUMADIN/WARFARIN INR THERAPY RANGESSTANDARD DOSE: 2.0 - 3.0 Includes: PROPHYLAXIS for venous thrombosis, systemic embolization; TREATMENT for venous thrombosis and/or pulmonary embolus.HIGH RISK: Target INR is 2.5-3.5 for patients with mechanical heart valves.CBC W/PLT COUNT & AUTO [id number] 04:41:21 Test Item Value Reference Range Interpretation [...] PERCENT (BEAKER) (test code = 2801) POCT-GLUCOSE [id number] 12:30:47 Test Item Value Reference Range Interpretation Comments POC-GLUCOSE METER 102 mg/dL 70-110 : TESTED A T [facility] 6720 (BEAKER) (test code = [place], [place]38) [address]: Screen Repairer Crusher/Techni kaushik ID = [id number] for MOISES SETHI SARS-COV2/RT-PCR ([facility])2021-03-27 11:03:20 Test Item Value Reference Range Interpretation Comments SARS-COV2/RT-PCR (test Negative Not Detected, Negative, code = 4079923) See external report for linked test SARS-COV-2 PERFORMING LAB [facility] [place] (test code = 5600704) Negative result for this test determines that [...] of the Act.Fact Sheet for Healthcare Prov iders:https://www.Kobojo/sites/default/files/product/documents/Fact_Sheet_HC _Jotomrzrh_Sena_NLAK-TxL-0.pdfFact Sheet for Healthcare Patients:https://www.Kobojo/sites/default/files/product/docume nts/Jzik_Dcyjm_Wqlmnvel_Rqql_CRCS-JsG-2.pdfPerforming Laboratory:[place] [address], [place] [address]BNXP-FYYQVOF METER 2021-03-27 07:00:17 Test Item Value Reference Range Interpretation Comments POC-GLUCOSE METER 81 mg/dL 70-110 : TESTED A T [facility] 67[address] (BEAKER) (test code = JAMIE Cabrales [facility], 1538) [address]: Screen Repairer Crusher/Techni kaushik ID = [id number] for Mavis Noonan [id number] 06:12:51 Test Item Value Reference Range Interpretation Comments MAGNESIUM (BEAKER) (test code = 1.9 mg/dL 1.6-2.6 627) Screen Repairer Crusher ID - [id number] 06:12:51 Test Item Value Reference Range Interpretation Comments PHOSPHORUS (BEAKER) (test code = 3.1 mg/dL 2.3-4.7 604) Screen Repairer Crusher ID - JRLCOMPREHENSIVE METABOLIC [id number] 06:12:50 Test Item Value Reference Range Interpretation [...] S NOT APPLICABLE FOR DIALYSIS PATIEN TS. Screen Repairer Crusher ID - JRLCBC W/PLT COUNT & AUTO [id number] 05:43:01 Test Item Value Reference Range Interpretation [...] PERCENT (BEAKER) (test code = 2801) POCT-GLUCOSE [id number] 00:38:16 Test Item Value Reference Range Interpretation Comments POC-GLUCOSE METER 85 mg/dL 70-110 : TESTED A T [facility] 6720 (BEAKER) (test code = [facility], 153) [address]: Screen Repairer Crusher/Techni kaushik ID = [id number] for Mavis Noonan POCT-GLUCOSE [id number] 17:30:06 Test Item Value Reference Range Interpretation Comments POC-GLUCOSE METER 118 mg/dL 70-110 H : TESTED A T [facility] 6720 (BEAKER) (test code = [facility], 153) [address]: Screen Repairer Crusher/Techni kaushik ID = [id number] for MOISES SETHI HEMOGLOBIN AND [id number] 17:20:47 Test Item Value Reference Range Interpretation Comments HEMOGLOBIN (BEAKER) (test code = 7.4 GM/DL 11.2-15.7 L 410) HEMATOCRIT (BEAKER) (test code = 23.1 % 34.1-44.9 L 411) Screen Repairer Crusher ID - 6000POCT-GLUCOSE [id number] 12:41:00 Test Item Value Reference Range Interpretation Comments POC-GLUCOSE METER 105 mg/dL 70-110 : TESTED A T [facility] 6720 (FELISHA) (test code = [place], 1538) [address]: Screen Repairer Crusher/Techni kaushik ID = [id number] for DANAY MARQUEZ SARS-COV2/RT-PCR ([facility])2021-03-26 10:44:30 Test Item Value Reference Range Interpretation Comments SARS-COV2/RT-PCR (test Negative Not Detected, Negative, code = 1599030) See external report for linked test SARS-COV-2 PERFORMING LAB [facility] [place] (test code = 1813339) Negative result for this test determines that [...] of the Act.Fact Sheet for Healthcare Prov iders:https://www.Kobojo/sites/default/files/product/documents/Fact_Sheet_HC _Kvzssqmxa_Zsgo_BJKL-IjW-2.pdfFact Sheet for Healthcare Patients:https://www.Kobojo/sites/default/files/product/docume nts/Fsbc_Qohmy_Gxtokfyi_Dzky_DBOM-YnJ-2.pdfPerforming Laboratory:[facility] [facility].[place], [place] [id number] 06:44:05 Test Item Value Reference Range Interpretation Comments MAGNESIUM (BEAKER) (test code = 1.9 mg/dL 1.6-2.6 627) Screen Repairer Crusher ID Nakita BUCHANAN [id number] 06:44:05 Test Item Value Reference Range Interpretation Comments PHOSPHORUS (BEAKER) (test code = 2.7 mg/dL 2.3-4.7 604) Screen Repairer Crusher ID Nakita BUCHANAN WCOMPREHENSIVE METABOLIC [id number] 06:44:04 Test Item Value Reference Range Interpretation [...] S NOT APPLICABLE FOR DIALYSIS PATIEN TS. Screen Repairer Crusher ID - DEWAYNE WCBC W/PLT COUNT & AUTO [id number] 06:33:22 Test Item Value Reference Range Interpretation [...] PERCENT (BEAKER) (test code = 2801) POCT-GLUCOSE [id number] 06:18:41 Test Item Value Reference Range Interpretation Comments POC-GLUCOSE METER 99 mg/dL 70-110 : TESTED A T [facility] 6720 (BEAKER) (test code = [facility], [facility]) [address]: Screen Repairer Crusher/Techni kaushik ID = [id number] for Serr ano, Lore POCT-GLUCOSE [id number] 00:16:02 Test Item Value Reference Range Interpretation Comments POC-GLUCOSE METER 89 mg/dL 70-110 : TESTED A T [facility] 6720 (BEAKER) (test code = [facility], [facility]) [address]: Screen Repairer Crusher/Techni kaushik ID = [id number] for Serr ano, Lore POCT-GLUCOSE [id number] 18:26:03 Test Item Value Reference Range Interpretation Comments POC-GLUCOSE METER 110 mg/dL 70-110 : TESTED A T [facility] 6720 (BEAKER) (test code = [facility], 1538) 91355: Screen Repairer Crusher/Techni kaushik ID = [id number] for RO DGERS, JAMECA POCT-GLUCOSE [id number] 13:19:38 Test Item Value Reference Range Interpretation Comments POC-GLUCOSE METER 109 mg/dL 70-110 : TESTED A T [facility] 6720 (BEAKER) (test code = [facility], [facility]8) [address]38[address]: Screen Repairer Crusher/Techni kaushik ID = [id number] for RO DGERS, JAMECA CBC W/PLT COUNT & AUTO [id number] 08:04:36 Test Item Value Reference Range Interpretation [...] 0-1 PERCENT (BEAKER) (test code = 2801) [id number] 07:24:14 Test Item Value Reference Range Interpretation Comments PHOSPHORUS (BEAKER) (test code = 2.3 mg/dL 2.3-4.7 604) Screen Repairer Crusher ID Nakita BUCHANAN WCOMPREHENSIVE METABOLIC [id number] 07:24:13 Test Item Value Reference Range Interpretation [...] S NOT APPLICABLE FOR DIALYSIS PATIEN TS. Screen Repairer Crusher ID Nakita BUCHANAN [id number] 07:24:13 Test Item Value Reference Range Interpretation Comments MAGNESIUM (BEAKER) (test code = 1.8 mg/dL 1.6-2.6 627) Screen Repairer Crusher ID - DEWAYNE WPOCT-GLUCOSE [id number] 18:41:45 Test Item Value Reference Range Interpretation Comments POC-GLUCOSE METER 96 mg/dL 70-110 : TESTED A T [facility] 6720 (BEAKER) (test code = [facility], 1538) 28[address]: Screen Repairer Crusher/Techni kaushik ID = [id number] for ASCENCION SAGE, KARAN POCT-GLUCOSE [id number] 11:57:32 Test Item Value Reference Range Interpretation Comments POC-GLUCOSE METER 146 mg/dL 70-110 H : TESTED A T [facility] 6720 (BEAKER) (test code = [facility], 1538) 346[address]: Screen Repairer Crusher/Techni kaushik ID = [id number] for AK INSONU, KARAN POCT-GLUCOSE [id number] 08:36:14 Test Item Value Reference Range Interpretation Comments POC-GLUCOSE METER 103 mg/dL 70-110 : TESTED A T [facility] 6720 (BEAKER) (test code = [facility], 1538) 49447: Screen Repairer Crusher/Techni kaushik ID = [id number] for AK INSONU, KARAN COMPREHENSIVE METABOLIC [id number] 08:08:55 Test Item Value Reference Range Interpretation [...] S NOT APPLICABLE FOR DIALYSIS PATIEN TS. Screen Repairer Crusher ID - [id number] 07:41:23 Test Item Value Reference Range Interpretation Comments MAGNESIUM (BEAKER) (test code = 1.8 mg/dL 1.6-2.6 627) Screen Repairer Crusher ID - [id number] 07:41:23 Test Item Value Reference Range Interpretation Comments PHOSPHORUS (BEAKER) (test code = 2.3 mg/dL 2.3-4.7 604) Screen Repairer Crusher ID - DBCBC W/PLT COUNT & AUTO [id number] 07:24:27 Test Item Value Reference Range Interpretation [...] PERCENT (BEAKER) (test code = 2801) POCT-GLUCOSE [id number] 05:13:18 Test Item Value Reference Range Interpretation Comments POC-GLUCOSE METER 91 mg/dL 70-110 : TESTED A T [facility] 6720 (BEAKER) (test code = [facility], 153) 69420: Screen Repairer Crusher/Techni kaushik ID = [id number] for SERENITY S, SUZANNA POCT-GLUCOSE [id number] 00:08:50 Test Item Value Reference Range Interpretation Comments POC-GLUCOSE METER 109 mg/dL 70-110 : TESTED A T [facility] 6720 (BEAKER) (test code = [facility], 153) 04286: Screen Repairer Crusher/Techni kaushik ID = [id number] for DE NNIS, TODD [id number] 07:11:30 Test Item Value Reference Range Interpretation Comments MAGNESIUM (BEAKER) (test code = 1.9 mg/dL 1.6-2.6 627) Screen Repairer Crusher ID - SHAE [id number] 07:11:30 Test Item Value Reference Range Interpretation Comments PHOSPHORUS (BEAKER) (test code = 2.3 mg/dL 2.3-4.7 604) Screen Repairer Crusher ID - SHAE LCOMPREHENSIVE METABOLIC [id number] 07:11:29 Test Item Value Reference Range Interpretation [...] S NOT APPLICABLE FOR DIALYSIS PATIEN TS. Screen Repairer Crusher ID - SHAE LPOCT-GLUCOSE [id number] 06:13:33 Test Item Value Reference Range Interpretation Comments POC-GLUCOSE METER 99 mg/dL 70-110 : TESTED A T [facility] 6720 (BEAKER) (test code = [place], 1538) 918[address]: Screen Repairer Crusher/Techni kaushik ID = [id number] for CB REIS CBC W/PLT COUNT & AUTO [id number] 05:36:33 Test Item Value Reference Range Interpretation [...] (test code = 416) BASOPHILS ABSOLUTE COUNT (AKER) 0.02 K/ L 0.01-0.08 (test code = 417) IMMATURE GRANULOCYTES-RELATIVE 0 % 0-1 PERCENT (AKER) (test code = 2801) POCT-GLUCOSE [id number] 00:31:23 Test Item Value Reference Range Interpretation Comments POC-GLUCOSE METER 104 mg/dL 70-110 : TESTED A T [facility] 6720 ([facility]) (test code = [facility], 1538) 05867: Screen Repairer Crusher/Techni kaushik ID = [id number] for CB COULTER POCT-GLUCOSE [id number] 17:25:03 Test Item Value Reference Range Interpretation Comments POC-GLUCOSE METER 114 mg/dL 70-110 H : [facility] (test code = [facility], 153) 81311: Screen Repairer Crusher/Techni kaushik ID = [id number] for RO DGERS, GEORGEECA POCT-GLUCOSE [id number] 12:56:53 Test Item Value Reference Range Interpretation Comments POC-GLUCOSE METER 133 mg/dL 70-110 H : [facility] (test code = [facility], 153) 84569: Screen Repairer Crusher/Techni kaushik ID = [id number] for RO DGERS, JAMECA POCT-GLUCOSE [id number] 06:10:41 Test Item Value Reference Range Interpretation Comments POC-GLUCOSE METER 123 mg/dL 70-110 H : Notified RN/MD: ([facility]) (test code = TESTED AT [facility] 67[address] 1538) [facility], [address]: Screen Repairer Crusher/Techni kaushik ID = [id number] for DO VENIKHILA [id number] 04:47:21 Test Item Value Reference Range Interpretation Comments MAGNESIUM (BEAKER) (test code = 2.0 mg/dL 1.6-2.6 627) Screen Repairer Crusher ID - CATRACHO [id number] 04:47:21 Test Item Value Reference Range Interpretation Comments PHOSPHORUS (BEAKER) (test code = 2.1 mg/dL 2.3-4.7 L 604) Screen Repairer Crusher ID - CATRACHO MCOMPREHENSIVE METABOLIC [id number] 04:47:20 Test Item Value Reference Range Interpretation [...] S NOT APPLICABLE FOR DIALYSIS PATIEN TS. Screen Repairer Crusher ID - CATRACHO MCBC W/PLT COUNT & AUTO [id number] 04:08:41 Test Item Value Reference Range Interpretation [...] PERCENT (BEAKER) (test code = 2801) POCT-GLUCOSE [id number] 23:46:34 Test Item Value Reference Range Interpretation Comments POC-GLUCOSE METER 132 mg/dL 70-110 H : Notified RN/MD: (FELISHA) (test code = TESTED AT [facility] 67[address] 1538) [facility], [address]: Screen Repairer Crusher/Techni kaushik ID = [id number] for CHERYL MANZO POCT-GLUCOSE [id number] 18:31:36 Test Item Value Reference Range Interpretation Comments POC-GLUCOSE METER 137 mg/dL 70-110 H : TESTED A T [facility] 6720 (BEAKER) (test code = [facility], 1538) 25455: Screen Repairer Crusher/Techni kaushik ID = [id number] for ROBINA EPPSINEZ, DANAY POCT-GLUCOSE [id number] 12:33:28 Test Item Value Reference Range Interpretation Comments POC-GLUCOSE METER 128 mg/dL 70-110 H : TESTED A T [facility] 6720 (BEAKER) (test code = [facility], 1538) 023[address]: Screen Repairer Crusher/Techni kaushik ID = [id number] for ROBINA RTINEZ, DANAY [id number] 07:06:08 Test Item Value Reference Range Interpretation Comments PHOSPHORUS (BEAKER) (test code = 4.4 mg/dL 2.3-4.7 604) Screen Repairer Crusher ID - PIAYA LCOMPREHENSIVE METABOLIC [id number] 07:06:07 Test Item Value Reference Range Interpretation [...] S NOT APPLICABLE FOR DIALYSIS PATIEN TS. Screen Repairer Crusher ID - PIDOUGLAS [id number] 07:06:07 Test Item Value Reference Range Interpretation Comments MAGNESIUM (BEAKER) (test code = 2.3 mg/dL 1.6-2.6 627) Screen Repairer Crusher ID - SHAE LPOCT-GLUCOSE [id number] 06:31:52 Test Item Value Reference Range Interpretation Comments POC-GLUCOSE METER 119 mg/dL 70-110 H : [facility] ([facility] (test code = [facility] Samra [facility], 1538) [address]: Screen Repairer Crusher/Techni kaushik ID = [id number] for BHASKAR WHITTCATYKya CBC W/PLT COUNT & AUTO [id number] 04:39:54 Test Item Value Reference Range Interpretation [...] PERCENT (BEAKER) (test code = 2801) POCT-GLUCOSE [id number] 00:11:53 Test Item Value Reference Range Interpretation Comments POC-GLUCOSE METER 106 mg/dL 70-110 : TESTED A T [facility] 6720 (BEAKER) (test code = [facility] Samra [facility], 1538) 89[address]: Screen Repairer Crusher/Techni kaushik ID = [id number] for TIFFANIE WHITT URINALYSIS W/ REFLEX URINE [id number] 19:10:53 Test Item Value Reference Range Interpretation [...] = 1521) SOURCE(BEAKER) (test code = 2795) Screen Repairer Crusher ID - [auto]Screen Repairer Crusher ID - techPOCT-GLUCOSE [id number] 18:31:06 Test Item Value Reference Range Interpretation Comments POC-GLUCOSE METER 95 mg/dL 70-110 : TESTED A T [facility] 6720 (BEAKER) (test code = [place], 1538) [address]: Screen Repairer Crusher/Techni kaushik ID = [id number] for MARIANGEL PLEITEZ, DANAY RAD, CHEST, 1 VIEW, NON [id number] 14:59:00Reason for exam:->follwo up interstitial infeiltratesShould this be performed at the bedside?->Yes [facility] CENTERName: MARCEL [facility]ONS : 1935 Sex: FFINAL REPORT Chest one view. Clinical history: follow up interstitial infiltrates Comparison: March 17, 2021 Discussion: A frontal chest is provided. Cardiomediastinal contours areunchanged. Tip of Corpak projects over the stomach. There is no juana pulmonary edema, consolidation, pneumothorax, or large effusion. Interstitial prominence has resolved. Signed: Parisa Vanegas Verified Date/Time: 03/20/2021 14:59:46 Reading Location: [facility] C013X Ortho Consult Reading Room POCT-GLUCOSE [id number] 12:21:05 Test Item Value Reference Range Interpretation Comments POC-GLUCOSE METER 78 mg/dL 70-110 : TESTED A T [facility] 6720 (FELISHA) (test code = [facility]HARAMAINE Cabrales [facility], 1538) [address]: Screen Repairer Crusher/Techni kaushik ID = [id number] for MART PRICILLA, DANAY CT, BRAIN, WITHOUT [id number] 12:04:00Unlisted Reason for Exam - Click Yes and Enter Reason Below->No [facility] : 1935 Sex: FAddendum BeginsREPORT STATUS:A 3-D [...] ICA per NASCET criteria. Signed: Zoila Jones [facility] Verified Date/Time: 03/19/2021 17:19:49 CT, CTANGIO BRAIN 2021-03-20 12:04:00Unlisted Reason for Exam - Click Yes and Enter Reason Below->No[facility] 1935 Sex: FAddendum BeginsREPORT STATUS:A 3-D [...] ICA per NASCET criteria. Signed: Zoila Jones MDReport Verified Date/Time: 03/19/2021 17:19:49 CT, CAROTID, ANGIO 2021-03-20 12:04:00Unlisted Reason for Exam - Click Yes and Enter Reason Below->No[facility] : 1935 Sex: FAddendum BeginsREPORT STATUS:A 3-D [...] left ICA per NASCET criteria. Signed: Zoila Jonesort Verified Date/Time: 03/19/2021 17:19:49 POCT-GLUCOSE METER 2021-03-20 07:05:40 Test Item Value Reference Range Interpretation Comments POC-GLUCOSE METER 73 mg/dL 70-110 : [facility] (BEAKER) (test code = [place], 1538) [address]: Screen Repairer Crusher/Techni kaushik ID = [id number] for ABISAI WEINER [id number] 06:26:24 Test Item Value Reference Range Interpretation Comments MAGNESIUM (BEAKER) (test code = 2.4 mg/dL 1.6-2.6 627) Screen Repairer Crusher ID - CATRACHO [id number] 06:26:24 Test Item Value Reference Range Interpretation Comments PHOSPHORUS (BEAKER) (test code = 5.5 mg/dL 2.3-4.7 H 604) Screen Repairer Crusher ID - CATRACHO MCOMPREHENSIVE METABOLIC [id number] 06:26:23 Test Item Value Reference Range Interpretation [...] S NOT APPLICABLE FOR DIALYSIS PATIEN TS. Screen Repairer Crusher ID - CATRACHO MCBC W/PLT COUNT & AUTO [id number] 06:10:19 Test Item Value Reference Range Interpretation [...] PERCENT (BEAKER) (test code = 2801) POCT-GLUCOSE [id number] 00:30:31 Test Item Value Reference Range Interpretation Comments POC-GLUCOSE METER 80 mg/dL 70-110 : [facility]ER[facility] (test code = [facility], 1538) 18621: Screen Repairer Crusher/Techni kaushik ID = [id number] for ALAN GRAHAM TIFFANIE POCT-GLUCOSE [id number] 17:50:50 Test Item Value Reference Range Interpretation Comments POC-GLUCOSE METER 93 mg/dL 70-110 : [facility] (BEAKER[facility] (test code = [facility], 1538) [address]: Screen Repairer Crusher/Techni kaushik ID = [id number] for DANAY MASSEY SARS-COV2/RT-PCR ([facility])2021-03-19 13:50:07 Test Item Value Reference Range Interpretation Comments SARS-COV2/RT-PCR (test Negative Not Detected, Negative, code = 3970067) See external report for linked test SARS-COV-2 PERFORMING LAB [facility] (test code = 0319989) Negative result for this test determines that [...] of the Act.Fact Sheet for Healthcare Prov iders:https://www.Kobojo/sites/default/files/product/documents/Fact_Sheet_HC _Ndafleyod_Dckc_HWIV-MvQ-6.pdfFact Sheet for Healthcare Patients:https://www.Kobojo/sites/default/files/product/docume nts/Arnp_Ykwvr_Jruodtxn_Gnhv_TJCA-GqY-1.pdfPerforming Laboratory:[facility], [place] [address]XVND-ROLRTCU METER 2021-03-19 12:25:24 Test Item Value Reference Range Interpretation Comments POC-GLUCOSE METER 99 mg/dL 70-110 : TESTED Kya Bennett [facility] 6720 (BEAKER) (test code = [place], 1538) [address]: Screen Repairer Crusher/Techni kaushik ID = [id number] for MARIANGEL PRICILLADANAY [id number] 11:06:15 Test Item Value Reference Range Interpretation Comments RPR SCREEN (BEAKER) (test code = Nonreactive Nonreactive 420) POCT-GLUCOSE [id number] 06:58:31 Test Item Value Reference Range Interpretation Comments POC-GLUCOSE METER 96 mg/dL 70-110 : TESTED Kya Bennett [facility] 6720 (BEAKER) (test code = [place], 1538) [address]: Screen Repairer Crusher/Techni kaushik ID = [id number] for Mavis Noonan [id number] 06:11:28 Test Item Value Reference Range Interpretation Comments MAGNESIUM (BEAKER) (test code = 2.1 mg/dL 1.6-2.6 627) Screen Repairer Crusher ID - SHAE [id number] 06:11:28 Test Item Value Reference Range Interpretation Comments PHOSPHORUS (BEAKER) (test code = 4.0 mg/dL 2.3-4.7 604) Screen Repairer Crusher ID - SHAE LCOMPREHENSIVE METABOLIC [id number] 06:11:27 Test Item Value Reference Range Interpretation [...] S NOT APPLICABLE FOR DIALYSIS PATIEN TS. Screen Repairer Crusher ID - PIAYA LCBC W/PLT COUNT & AUTO [id number] 06:07:52 Test Item Value Reference Range Interpretation [...] PERCENT (BEAKER) (test code = 2801) POCT-GLUCOSE [id number] 00:26:50 Test Item Value Reference Range Interpretation Comments POC-GLUCOSE METER 94 mg/dL 70-110 : TESTED A T [facility] 6720 (BEAKER) (test code = [facility], 1538) 13[address]: Screen Repairer Crusher/Techni kaushik ID = [id number] for Weav er, Mavis RAD, ABDOMEN/KUB, 1 VIEW [id number] 22:24:00Reason for exam:->corpak placement[facility] : 1935 Sex: FFINAL REPORT CLINICAL HISTORY: [...] is no acute bony abnormality. Signed: Jordan Coburnort Verified Date/Time: 03/18/2021 22:24:48 POCT-GLUCOSE [id number] 18:14:14 Test Item Value Reference Range Interpretation Comments POC-GLUCOSE METER 103 mg/dL 70-110 : TESTED A T [facility] 6720 ([facility]) (test code = [facility], 1538) [address]: Screen Repairer Crusher/Techni kaushik ID = [id number] for Karen Arauz POCT-GLUCOSE [id number] 06:34:39 Test Item Value Reference Range Interpretation Comments POC-GLUCOSE METER 106 mg/dL 70-110 : TESTED A T [facility] 6720 (BEAKER) (test code = [facility] Samra [facility], 1538) [address]: Screen Repairer Crusher/Techni kaushik ID = [id number] for CYRUS GRANADO CT, BRAIN, WITHOUT [id number] 04:55:00Unlisted Reason for Exam - Click Yes and Enter Reason Below->No [facility] : 1935 Sex: FFINAL REPORT CT, BRAIN, [...] considered given extensive motion degradation. Signed: Justin Truong MDReport Verified Date/Time: 03/18/2021 04:55:48 HIGH SENSITIVITY TROPONIN I 2021-03-18 04:28:08 Test Item Value Reference Range Interpretation Comments HIGH SENSITIVITY 2424 pg/ml See_Comment HH [Automated message] TROPONIN I (test code The sy stem which = [id number]) generated this result transmitted ref erence range: <=17. Th e reference range was not used to int erpret this result as normal/abnormal . Screen Repairer Crusher ID - PIAYA LThe ALLERGY AND IMMUNOLOGY CHIEF STAT High Sensitivity Troponin-I results should be used in conjunction with other diagnostic information such as ECG, clinical observations and information, and patient symptoms to aid in the diagnosis of WI.COMPREHENSIVE METABOLIC [id number] 04:26:59 Test Item Value Reference Range Interpretation [...] S NOT APPLICABLE FOR DIALYSIS PATIEN TS. Screen Repairer Crusher ID - SHAE [id number] 04:26:58 Test Item Value Reference Range Interpretation Comments MAGNESIUM (BEAKER) 2.4 mg/dL 1.6-2.6 Specimen slightly (test code = 627) hemolyzed Screen Repairer Crusher ID - SHAE [id number] 04:26:58 Test Item Value Reference Range Interpretation Comments PHOSPHORUS (BEAKER) 3.7 mg/dL 2.3-4.7 Specimen slightly (test code = 604) hemolyzed Screen Repairer Crusher ID - SHAE LCBC W/PLT COUNT & AUTO [id number] 04:21:01 Test Item Value Reference Range Interpretation [...] PERCENT (BEAKER) (test code = 2801) POCT-GLUCOSE [id number] 00:41:25 Test Item Value Reference Range Interpretation Comments POC-GLUCOSE METER 106 mg/dL 70-110 : TESTED Kya T [facility] 6720 (BEAKER) (test code = [place], 1538) [address]: Screen Repairer Crusher/Techni kaushik ID = [id number] for CYRUS GRANADO EDWARD HIGH SENSITIVITY TROPONIN [id number] 16:58:20 Test Item Value Reference Range Interpretation Comments HIGH SENSITIVITY 4622 pg/ml See_Comment HH [Automated message] TROPONIN I (test code The sy stem which = [id number]) generated this result transmitted ref erence range: <=17. Th e reference range was not used to int erpret this result as normal/abnormal . Screen Repairer Crusher ID - CATRACHO Greere ALLERGY AND IMMUNOLOGY CHIEF STAT High Sensitivity Troponin-I results should be used in conjunction with other diagnostic information such as ECG, clinical observations and information, and patient symptoms to aid in the diagnosis of WI.HEMOGLOBIN [id number] 13:03:51 Test Item Value Reference Range Interpretation Comments HEMOGLOBIN A1C (FELISHA) (test code = 5.7 % 4.3-6.1 368) HIGH SENSITIVITY TROPONIN [id number] 08:36:08 Test Item Value Reference Range Interpretation Comments HIGH SENSITIVITY 5997 pg/ml See_Comment HH [Automated message] TROPONIN I (test code The sy stem which = [id number]) generated this result transmitted ref erence range: <=17. Th e reference range was not used to int erpret this result as normal/abnormal . Screen Repairer Crusher ID - CATRACHO Gatica ALLERGY AND IMMUNOLOGY CHIEF STAT High Sensitivity Troponin-I results should be used in conjunction with other diagnostic information such as ECG, clinical observations and information, and patient symptoms to aid in the diagnosis of WI.Screen Repairer Crusher ID - CATRACHO EMETERIOD, CHEST, 1 VIEW, NON [id number] 06:47:00Reason for exam:->Desat [facility] : 1935 Sex: FFINAL REPORT RAD, CHEST, 1 VIEW, NON DEPT INDICATION: Desat COMPARISON: Prior day'sexam FINDINGS: Portable frontal view of the chest. IMPRESSION: Support Lines: Overlying leads Lungs and pleura: Unchanged mild diffuse interstitial thickening, representing singly or in combination, interstitial edema and/or pneumonitis. No significant pneumothorax. Heart and mediastinum: Stable contours. Additional findings: None. Signed: Vani Shelby Verified Date/Time: 03/17/2021 06:47:48 POCT-GLUCOSE [id number] 06:40:01 Test Item Value Reference Range Interpretation Comments POC-GLUCOSE METER 102 mg/dL 70-110 : TESTED A T [facility] 6720 (BEAKER) (test code = [facility], 1538) [address]: Screen Repairer Crusher/Techni kaushik ID = [id number] for EMILIE WESTON VITAMIN B12 AND [id number] 03:42:15 Test Item Value Reference Range Interpretation Comments VITAMIN B12 (BEAKER) 715 pg/mL 213-816 (test code = 774) FOLATE (BEAKER) 3.20 ng/mL See_Comment L [Automated message] (test code = 362) The system which generated this result transmitted ref erence range: >=7.00. The reference range was not used to interpr et this result as normal/abnormal . Screen Repairer Crusher ID - CATRACHO MTSH/FREE T4 IF [id number] 03:42:14 Test Item Value Reference Range Interpretation Comments THYROID STIMULATING HORMONE 0.995 uIU/mL 0.350-4.940 (BEAKER) (test code = 772) Screen Repairer Crusher ID - CATRACHO MHIGH SENSITIVITY TROPONIN [id number] 02:10:06 Test Item Value Reference Range Interpretation Comments HIGH SENSITIVITY 752 pg/ml See_Comment HH [Automated message] TROPONIN I (test code The sy stem which = [id number]) generated this result transmitted ref erence range: <=17. Th e reference range was not used to int erpret this result as normal/abnormal . Screen Repairer Crusher ID - [facility] ALLERGY AND IMMUNOLOGY CHIEF STAT High Sensitivity Troponin-I results should be used in conjunctionwith other diagnostic information such as ECG, clinical observations and information, and patient symptoms to aid in the diagnosis of WI.B-TYPE NATRIURETIC FACTOR (BNP)2021-03-17 02:05:41 Test Item Value Reference Range Interpretation Comments B-TYPE NATRIURETIC PEPTIDE (BEAKER) 620 pg/mL 0-100 H (test code = 700) Screen Repairer Crusher ID - DBLACTIC ACID, [id number] 01:57:01 Test Item Value Reference Range Interpretation Comments LACTATE BLOOD VENOUS 0.59 mmol/L 0.50-2.20 Specime n moderately (2) (BEAKER) (test hemolyzed code = 2872) Screen Repairer Crusher ID - DBCBC W/PLT COUNT & AUTO [id number] 01:39:26 Test Item Value Reference Range Interpretation [...] 0-1 PERCENT (BEAKER) (test code = 2801) [id number] 01:36:41 Test Item Value Reference Range Interpretation Comments PHOSPHORUS (BEAKER) (test code = 3.6 mg/dL 2.3-4.7 604) Screen Repairer Crusher ID - DBLIPID [id number] 01:36:41 Test Item Value Reference Range Interpretation [...] Borderline 130-159 High 160-189 Very High >=190 Screen Repairer Crusher ID - DBCOMPREHENSIVE METABOLIC [id number] 01:36:40 Test Item Value Reference Range Interpretation [...] S NOT APPLICABLE FOR DIALYSIS PATIEN TS. Screen Repairer Crusher ID - [id number] 01:36:40 Test Item Value Reference Range Interpretation Comments MAGNESIUM (BEAKER) (test code = 1.6 mg/dL 1.6-2.6 627) Screen Repairer Crusher ID - [id number] 01:26:37 Test Item Value Reference Range Interpretation Comments FIBRINOGEN LEVEL (BEAKER) (test 227 mg/dl 225-434 code = 658) [id number] 01:26:37 Test Item Value Reference Range Interpretation Comments PARTIAL THROMBOPLASTIN TIME 29.3 seconds 22.5-36.0 (BEAKER) (test code = 760) PROTHROMBIN [id number] 01:25:54 Test Item Value Reference Range Interpretation Comments PROTIME (BEAKER) 14.4 seconds 11.9-14.2 H (test code = 759) INR (BEAKER) (test 1.14 See_Comment [Automat ed message] code = 370) The system [employer] generated this result transmitted ref erence range: <=5.90. The reference range was not used to int erpret this result as normal/abnormal . RECOMMENDED COUMADIN/WARFARIN INR THERAPY RANGESSTANDARD DOSE: 2.0 - 3.0 Includes: PROPHYLAXIS for venous thrombosis, systemic embolization; TREATMENT for venous thrombosis and/or pulmonary embolus.HIGH RISK: Target INR is 2.5-3.5 for patients with mechanical heart valves.[id number] 01:11:30 Test Item Value Reference Range Interpretation Comments AMMONIA (BEAKER) (test code = 348) 23 mol/L 18-72 Screen Repairer Crusher ID - DBBASIC METABOLIC [id number] 07:17:00 Test Item Value Reference Range Interpretation [...] PATIEN TS. CBC W/PLT COUNT & AUTO [id number] 06:55:00 Test Item Value Reference Range Interpretation [...] (BEAKER) (test code = 2801) BASIC METABOLIC [id number] 05:32:00 Test Item Value Reference Range Interpretation [...] PATIEN TS. CBC W/PLT COUNT & AUTO [id number] 05:11:00 Test Item Value Reference Range Interpretation [...] 0-1 PERCENT (BEAKER) (test code = 2801) [id number] 07:46:00 Test Item Value Reference Range Interpretation Comments MAGNESIUM (BEAKER) (test code = 2.2 mg/dL 1.6-2.6 627) BASIC METABOLIC [id number] 07:46:00 Test Item Value Reference Range Interpretation [...] PATIEN TS. CBC W/PLT COUNT & AUTO [id number] 07:31:00 Test Item Value Reference Range Interpretation [...] (BEAKER) (test code = 2801) BASIC METABOLIC [id number] 14:48:00 Test Item Value Reference Range Interpretation [...] S NOT APPLICABLE FOR DIALYSIS PATIEN TS. [id number] 06:03:00 Test Item Value Reference Range Interpretation [...] 0-0 (BEAKER) (test code = 413) POCT-GLUCOSE [id number] 14:00:00 Test Item Value Reference Range Interpretation Comments POC-GLUCOSE METER 283 mg/dL 70-110 H TESTED AT [facility] 67[address] (BEAKER) (test code = [place] 1538) [address] [id number] 05:56:00 Test Item Value Reference Range Interpretation Comments MAGNESIUM (BEAKER) (test code = 2.8 mg/dL 1.6-2.6 H 627) BASIC METABOLIC [id number] 05:56:00 Test Item Value Reference Range Interpretation [...] WBC 0-0 (BEAKER) (test code = 413) [id number] 23:41:00 Test Item Value Reference Range Interpretation Comments ACTIVATED CLOTTING TIME 92 sec TEST ED AT [place] [address] ([facility]) (test code = [place]IE [place] [address]) [address] [id number] 21:56:00 Test Item Value Reference Range Interpretation Comments ACTIVATED CLOTTING TIME 153 sec TEST ED AT [place] [address] ([facility]) (test code = [place] [address]) [address] [id number] 19:28:00 Test Item Value Reference Range Interpretation Comments ACTIVATED CLOTTING TIME 197 sec TEST ED AT [place] [address] ([facility]) (test code = [place] [address]) [address] [id number] 17:41:00 Test Item Value Reference Range Interpretation Comments ACTIVATED CLOTTING TIME 246 sec TEST ED AT [place] [address] ([facility]) (test code = [place] [address]) [address] [id number] 12:36:00 Test Item Value Reference Range Interpretation Comments POTASSIUM (BEAKER) (test code = 4.0 meq/L 3.5-5.1 379) TROPONIN [id number] 12:03:00 Test Item Value Reference Range Interpretation [...] failure, acidosis, acute neurological disease, and persistent tachyarrhythmia.[id number] 11:44:00 Test Item Value Reference Range Interpretation Comments MAGNESIUM (BEAKER) (test code = 1.9 mg/dL 1.6-2.6 627) [id number] 11:37:00 Test Item Value Reference Range Interpretation Comments PARTIAL THROMBOPLASTIN TIME 98.3 seconds 22.5-36.0 H (BEAKER) (test code = 760) [id number] 04:04:00 Test Item Value Reference Range Interpretation Comments PARTIAL THROMBOPLASTIN TIME 92.5 seconds 22.5-36.0 H (BEAKER) (test code = 760) TROPONIN [id number] 02:06:00 Test Item Value Reference Range Interpretation Comments TROPONIN I (BEAKER) (test code = 7.11 ng/mL 0.00-0.03 397) Troponin I (TnI) levels [...] acute neurological disease, and persistent tachyarrhythmia.BASIC METABOLIC [id number] 01:56:00 Test Item Value Reference Range Interpretation [...] S NOT APPLICABLE FOR DIALYSIS PATIEN TS. [id number] 01:53:00 Test Item Value Reference Range Interpretation [...] 2.5-3.5 for patients with mechanical heart valves.PROTHROMBIN [id number] 01:50:00 Test Item Value Reference Range Interpretation [...] mechanical heart valves.CBC W/PLT COUNT & AUTO [id number] 01:43:00 Test Item Value Reference Range Interpretation [...] 0-1 PERCENT (BEAKER) (test code = 2801) [id number] 23:09:00 Test Item Value Reference Range Interpretation Comments RPR SCREEN (FELISHA) (test code = Nonreactive Nonreactive 420) TROPONIN [id number] 21:20:00 Test Item Value Reference Range Interpretation Comments TROPONIN I (FELISHA) (test code = 7.60 ng/mL 0.00-0.03 HH [...] failure, acidosis, acute neurological disease, and persistent tachyarrhythmia.[id number] 18:57:00 Test Item Value Reference Range Interpretation Comments PARTIAL THROMBOPLASTIN TIME 58.1 seconds 22.5-36.0 H ([facility]) (test code = 760) TROPONIN [id number] 15:25:00 Test Item Value Reference Range Interpretation Comments TROPONIN I (FELISHA) (test code = 6.89 ng/mL 0.00-0.03 HH [...] B-TYPE NATRIURETIC PEPTIDE 2849 pg/mL 0-100 H (VALERY) (test code = 700) Please obtain with next scheduled blood draw- no Need for extra pokeRAD, CHEST, 1 VIEW, NON [id number] 11:13:00Reason for exam:->chest painFINAL REPORT HISTORY : [...] aorta with some atherosclerotic calcification. Signed: Cheyenne [place] Verified Da te/Time: 02/16/2018 11:13:08 Reading Location: [facility] Reading Room TROPONIN [id number] 09:59:00 Test Item Value Reference Range Interpretation [...] failure, acidosis, acute neurological disease, and persistent tachyarrhythmia.[id number] 09:06:00 Test Item Value Reference Range Interpretation Comments PARTIAL THROMBOPLASTIN TIME 26.7 seconds 22.5-36.0 (BEAKER) (test code = 760) Prior to initiating heparinPLATELET [id number] 08:48:00 Test Item Value Reference Range Interpretation Comments PLATELET COUNT (LISANDROAKER) (test 230 K/CU MM 150-450 code = 756) CT BRAIN WITHOUT IV CONTRAST - [id number] 06:53:00Reason for exam:->post-tpaFINAL REPORT EXAM: CT head [...] to CT modality and motion artifact.Signed: Barney Romeroeport Verified Date/Time: 02/16/2018 06:53:18 Reading Location: [address] Reading Room ONIN [id number] 03:14:00 Test Item Value Reference Range Interpretation Comments TROPONIN I (BEAKER) (test code = 3.40 ng/mL 0.00-0.03 397) [...] acute neurological disease, and persistent tachyarrhythmia.BASIC METABOLIC [id number] 02:53:00 Test Item Value Reference Range Interpretation [...] S NOT APPLICABLE FOR DIALYSIS PATIEN TS. [id number] 02:48:00 Test Item Value Reference Range Interpretation [...] 2.5-3.5 for patients with mechanical heart valves.PROTHROMBIN [id number] 02:47:00 Test Item Value Reference Range Interpretation Comments PROTIME (BEAKER) (test code = 14.5 seconds 11.7-14.7 759) INR (BEAKER) (test code = 370) 1.1 <=5.9 RECOMMENDED COUMADIN/WARFARIN INR THERAPY RANGESSTANDARD DOSE: 2.0 - 3.0 Includes: PROPHYLAXIS for venous thrombosis, systemic embolization; TREATMENT for venous thrombosis and/or pulmonary embolus.HIGH RISK: Target INR is 2.5-3.5 for patients with mechanical heart valves.CBC W/PLT COUNT & AUTO [id number] 02:29:00 Test Item Value Reference Range Interpretation [...] PERCENT (BEAKER) (test code = 2801) TROPONIN [id number] 17:32:00 Test Item Value Reference Range Interpretation [...] acidosis, acute neurological disease, and persistent tachyarrhythmia.HEMOGLOBIN [id number] 11:13:00 Test Item Value Reference Range Interpretation Comments HEMOGLOBIN A1C (BEAKER) (test code = 5.4 % 4.3-6.1 368) [id number] 05:41:00 Test Item Value Reference Range Interpretation Comments THYROID STIMULATING HORMONE 0.94 uIU/mL 0.35-4.94 (BEAKER) (test code = 772) VITAMIN B12 AND [id number] 05:41:00 Test Item Value Reference Range Interpretation Comments VITAMIN B12 (BEAKER) (test code = 1440 pg/mL 213-816 H 774) FOLATE (BEAKER) (test code = 362) 7.6 ng/mL >=7.0 [id number] 05:07:00 Test Item Value Reference Range Interpretation Comments MAGNESIUM (BEAKER) 1.7 mg/dL 1.6-2.6 Specimen slightly (test code = 627) hemolyzed BASIC METABOLIC [id number] 05:07:00 Test Item Value Reference Range Interpretation [...] NOT APPLICABLE FOR DIALYSIS PATIEN TS. LIPID [id number] 05:07:00 Test Item Value Reference Range Interpretation [...] 2.5-3.5 for patients with mechanical heart valves.PROTHROMBIN [id number] 04:53:00 Test Item Value Reference Range Interpretation Comments PROTIME (BEAKER) (test code = 14.0 seconds 11.7-14.7 759) INR (BEAKER) (test code = 370) 1.1 <=5.9 RECOMMENDED COUMADIN/WARFARIN INR THERAPY RANGESSTANDARD DOSE: 2.0 - 3.0 Includes: PROPHYLAXIS for venous thrombosis, systemic embolization; TREATMENT for venous thrombosis and/or pulmonary embolus.HIGH RISK: Target INR is 2.5-3.5 for patients with mechanical heart valves.CBC W/PLT COUNT & AUTO [id number] 04:44:00 Test Item Value Reference Range Interpretation [...] (BEAKER) (test code = 2801) BASIC METABOLIC [id number] 16:02:00 Test Item Value Reference Range Interpretation [...] PATIEN TS. CBC W/PLT COUNT & AUTO [id number] 15:31:00 Test Item Value Reference Range Interpretation [...] 0-1 PERCENT (BEAKER) (test code = 2801) Notes Date/Time Note Provider Source 2023-01-22 09:16:18-00:00 Formatting of this note migh t be different from the original. [facility] Received medical records [facility], placed records in provider initial folder. Electronically signed by Joelle Cohen MA a t 01/22/2023 9:19 AM CDT 2023-01-13 14:45:00-00:00 Formatting of this note is d ifferent from the original. Ava Doshi [facility] Images from the original note were not included. Venipuncture collection perf ormed by clean technique on the right anticubitus. Total of 1 attempts were made. Slight pressure and a bandage/dressing were applied to the site(s). The patient experienced no complications. The follow ing specimens were processed according to instructions and sent to [facility] laboratories per lab order on 01/13/2023 : LT BLUE SST RED LAV PPT DK GREEN (LiHep) 2 DK GREEN (SodH) RIVERA DK BLUE (K2) DK BLUE (S) ACD Blood Culture NIPT/NTD Electronically signed by Ava Doshi at 2022 2:50 PM CDT 2023-01-13 14:45:00-00:00 Addended by: ROBIN MILES on: 01/14/2023 07:45 AM [facility] Modules accepted: Orders Electronically signed by Robin Miles at 7:45 AM T 2023-01-13 14:00:00-00:00 Addended by: RICKY MONTEIRO on: 01/20/2023 09:02 AM [facility] Modules accepted: Orders 2023-01-13 12:09:20-00:00 Formatting of this note migh t be different from the original. Kim Byrd RN [facility] lab results received Electronically signed by Kim Byrd RN at 0 01/13/2023 12:09 PM T 2023-01-10 09:09:27-00:00 Formatting of this note migh t be different from the original. [facility] Received form and informed O Nery leonard informed me to place in initials folder since it was non-urgent. Electronically signed by Joelle Cohen MA a t 01/10/2023 9:12 AM CDT 2023-01-10 08:53:15-00:00 Formatting of this note migh t be different from the original. Rita Avendaño [facility] Home care sent over Vital Report marked as urgen t in provider box Electronically signed by Rita Avendaño at 8:54 AM CDT 2023-01-08 14:50:55-00:00 Formatting of this note migh t be different from the original. Machelle Emanuel RN [facility] Labs already drawn and resul vero by [employer]. PER[employer] BY [employer] [place]; [address] [address]; MARY ELLEN SÁNCHEZ MD Electronically signed by Machelle Emanuel RN at 0 01/08/2023 2:53 PM CDT 2023-01-07 09:18:59-00:00 Formatting of this note migh t be different from the original. Rita Avendaño [facility] - Health Daughter of pt calling says pt need lab orders faxed to [facility] will be going to . Daughter says she called yeste rday for this Electronically signed by Rita Avendaño at 9:20 AM CDT
[2023-02-06 01:00] LABS: Absolute Lymphocytes (CBC) 1.2 K/uL (0.7-4.9); Hematocrit 17.2 % (36.0-45.0); Lymphocytes % 10.9 % (15.3-44.8); MCV 91.2 fL (80-100); MPV 9.7 fL (7.6-11.3); Platelets 220 thou/uL (152-406); RBC Red Blood Cell Count 1.89 M/uL (3.86-4.86)
[2023-02-06 01:15] LABS: ALT/SGPT 18 U/L (13-56); AST/SGOT 18 U/L (15-37); Alkaline Phosphatase 58 U/L (45-117); BUN Blood Urea Nitrogen 68 mg/dL (7-18); Bicarbonate 23 mEq/L (21-32); Bilirubin Total 0.3 mg/dL (0.2-1.0); Glomerular Filtration Rate 19 ml/min (=/>90); Glucose Level 115 mg/dL (74-106); Magnesium 2.2 mg/dL (1.6-2.4); NT PRO-BNP 10915 pg/mL (<450); Potassium 3.9 mEq/L (3.5-5.1); Sodium Level 131 mEq/L (136-145)
[2023-02-06 01:29] LABS: Bilirubin Direct < 0.1 mg/dL (0-0.2); Bilirubin Indirect, Calculated ND mg/dL (0.2-0.8)
[2023-02-06 01:30] LABS: Troponin High Sensitivity 972.5 pg/mL (<58.9)
--- NOTE | 2023-02-06 02:10 | EDPHYS ---
Physician Documentation [facility] Name: Casey Lyons Age: 87 yrs Sex: Female : 1935 Arrival Date: 02/06/2023 Time: 00:10 Bed 7 Private MD: ED Physician Jem Weston HPI: 02/06 02:11 This 87 yrs old Female presents to ER via EMS with complaints of Chest Pain. kdr 02:11 . Onset: The symptoms/episode began/occurred suddenly, just prior to arrival. Severity kdr of symptoms: At their worst the symptoms were moderate in the emergency department the symptoms have improved moderately. The patient has experienced similar episodes in the past, several times, multiple times. The patient has not recently seen a physician. Patient presents via EMS with a complaint of chest pain, shortness of breath and palpitations for 2 days. Patient was reportedly in A-fib with RVR with a rate in the 140s to 150s initially. According to EMS the patient spontaneously converted in route to the ED. Current lead the patient has a normal sinus rhythm. Patient is also known to be on Eliquis.. Historical: - Allergies: 00:20 No Known Drug Allergies; hb - Home Meds: 00:20 Apriso 0.375 gram Oral cp24 4 caps once daily [Active]; atorvastatin 80 mg Oral tab 1 hb tab once daily [Active]; amlodipine 5 mg tablet daily [Active]; carvedilol 25 mg Oral tab 1 tab 2 times per day [Active]; aspirin 81 mg oral tablet, delayed release (enteric coated) daily [Active]; duloxetine 30 mg Oral cpDR 1 cap once daily [Active]; Eliquis 2.5 mg oral tablet once [Active]; ferrous sulfate 325 mg (65 mg iron) Oral tablet daily [Active]; furosemide 20 mg Oral tablet daily [Active]; galantamine 8 mg oral Capsule, ER Pellets 24 hr [Active]; levothyroxine 25 mcg tab 1 tab once daily [Active]; memantine 5 mg oral tablet daily [Active]; montelukast 10 mg oral tablet daily [Active]; multivitamin oral tablet every morning [Active]; Protonix 40 mg Oral grps 1 packet once daily [Active]; valsartan 40 mg oral tablet daily [Active]; - PMHx: 00:20 Crohn's; Dementia; Cellulitis of Leg; Cerebrovascular accident; High Cholesterol; hb Hypertension; CKD; - PSHx: 00:20 Stented artery; hb - Immunization history:: Adult Immunizations up to date. - Social history:: Smoking status: Patient denies any tobacco usage or history of. ROS: 02:11 Constitutional: Negative for fever, chills, and weight loss, Eyes: Negative for injury, kdr pain, redness, and discharge, ENT: Negative for injury, pain, and discharge, Neck: Negative for injury, pain, and swelling, Cardiovascular: Negative for chest pain, palpitations, and edema, Respiratory: Negative for shortness of breath, cough, wheezing, and pleuritic chest pain, Abdomen/GI: Negative for abdominal pain, nausea, vomiting, diarrhea, and constipation, Back: Negative for injury and pain, : Negative for injury, bleeding, discharge, and swelling, MS/Extremity: Negative for injury and deformity, Skin: Negative for injury, rash, and discoloration, Neuro: Negative for headache, weakness, numbness, tingling, and seizure activity. Psych: Negative for depression, anxiety, suicide ideation, homicidal ideation, and hallucinations, Allergy/Immunology: Negative for hives, rash, and allergies, Endocrine: Negative for neck swelling, polydipsia, polyuria, polyphagia, and marked weight changes, Hematologic/Lymphatic: Negative for swollen nodes, abnormal bleeding, and unusual bruising. 02:11 Cardiovascular: Positive for chest pain, Negative for edema, orthopnea, palpitations, paroxysmal nocturnal dyspnea. 02:11 Respiratory: Positive for shortness of breath, at rest. Exam: 02:11 Constitutional: This is a well developed, well nourished patient who is awake, alert, kdr and in no acute distress. Head/Face: Normocephalic, atraumatic. Eyes: Pupils equal round and reactive to light, extra-ocular motions intact. Lids and lashes normal. Conjunctiva and sclera are non-icteric and not injected. Cornea within normal limits. Periorbital areas with no swelling, redness, or edema. Neck: Trachea midline, no thyromegaly or masses palpated, and no cervical lymphadenopathy. Supple, full range of motion without nuchal rigidity, or vertebral point tenderness. No Meningismus. Chest/axilla: Normal chest wall appearance and motion. Nontender with no deformity. No lesions are appreciated. Cardiovascular: Regular rate and rhythm with a normal S1 and S2. No gallops, murmurs, or rubs. Normal PMI, no JVD. No pulse deficits. Respiratory: Lungs have equal breath sounds bilaterally, clear to auscultation and percussion. No rales, rhonchi or wheezes noted. No increased work of breathing, no retractions or nasal flaring. Abdomen/GI: Soft, non-tender, with normal bowel sounds. No distension or tympany. No guarding or rebound. No evidence of tenderness throughout. Back: No spinal tenderness. No costovertebral tenderness. Full range of motion. Skin: Warm, dry with normal turgor. Normal color with no rashes, no lesions, and no evidence of cellulitis. MS/ Extremity: Pulses equal, no cyanosis. Neurovascular intact. Full, normal range of motion. Neuro: Awake and alert, GCS 15, oriented to person, place, time, and situation. Cranial nerves II-XII grossly intact. Motor strength 5/5 in all extremities. Sensory grossly intact. Cerebellar exam normal. Normal gait. Psych: Awake, alert, with orientation to person, place and time. Behavior, mood, and affect are within normal limits. Vital Signs: 00:18 BP 104 / 105; Pulse 104; Resp 24; Temp 98.1; Pulse Ox 100% on R/A; Weight 57.15 kg; hb Height 5 ft. 3 in. ; Pain 6/10; 00:41 BP 132 / 51; Pulse 78; Resp 18; Pulse Ox 100% ; kd3 01:57 BP 118 / 45; Pulse 65; Resp 18; Pulse Ox 96% on R/A; kd3 02:49 BP 110 / 56; Pulse 91; Resp 18; Pulse Ox 100% ; kd3 04:55 BP 105 / 85; Pulse 84; Resp 16; Pulse Ox 100% on 1 lpm NC; kd3 06:50 BP 108 / 62; Pulse 81; Resp 18; Pulse Ox 99% on R/A; kd3 00:18 Body Mass Index 22.32 (57.15 kg, 160.02 cm) hb 00:18 Pain Scale: Adult hb MDM: 02:09 Patient medically screened. kdr 02:14 Data reviewed: vital signs, nurses notes, lab test result(s), radiologic studies. kdr 02/06 00:24 Order name: Basic Metabolic Panel; Complete Time: 01:30 kdr 02/06 00:24 Order name: CBC with Diff; Complete Time: :30 kdr 02/06 00:24 Order name: LFT's; Complete Time: :30 kdr 02/06 00:24 Order name: Magnesium; Complete Time: 01:30 kdr 02/06 00:24 Order name: NT PRO-BNP; Complete Time: :30 kdr 02/06 00:24 Order name: Troponin HS; Complete Time: :30 kdr 02/06 01:48 Order name: Type And Screen vc1 02/06 02:48 Order name: Packed RBC Leukored EDMS 02/06 00:24 Order name: XRAY Chest (1 view) kdr 02/06 00:24 Order name: EKG; Complete Time: 00:25 kdr 02/06 00:24 Order name: Cardiac monitoring; Complete Time: 00:40 kdr 02/06 00:24 Order name: EKG - Nurse/Tech; Complete Time: 00:40 kdr 02/06 00:24 Order name: IV Saline Lock; Complete Time: 00:41 kdr 02/06 00:24 Order name: Labs collected and sent; Complete Time: 00:41 kdr 02/06 00:24 Order name: O2 Per Protocol; Complete Time: 00:41 kdr 02/06 00:24 Order name: O2 Sat Monitoring; Complete Time: 00:41 kdr Administered Medications: 02:27 Drug: Pantoprazole IVP 40 mg Route: IVP; Site: right antecubital; kd3 04:56 Follow up: Response: No adverse reaction kd3 02:48 Drug: Pantoprazole IV 8 mg/hr Route: IV; Rate: 25 ml/hr; Site: right antecubital; kd3 04:56 Follow up: IV Status: Infusion continued kd3 Disposition Summary: 02/06/23 02:09 Transfer Ordered Transfer Location: Other Acute Care Facility kdr Reason: Higher level of care kdr Condition: Fair kdr Problem: an acute exacerbation kdr Symptoms: have improved kdr Accepting Physician: stephanie(02/06/23 06:50) kd3 Diagnosis - Shortness of breath kdr - Weakness kdr - Chest pain, unspecified kdr - Anemia, unspecified kdr - GI Bleed/ Gastrointestinal hemorrhage, unspecified kdr - Subsequent non-ST elevation (NSTEMI) myocardial infarction kdr - Acute kidney injury kdr Discharge Instructions: - Discharge Summary Sheet vc1 Forms: - Medication Reconciliation Form kdr - SBAR form vc1 Signatures: Dispatcher [employer] Jem Waddell MD MD kdr Kira Lewis RN RN Anna Kwong RN RN kd3 Corrections: (The following items were deleted from the chart) 02:14 02:09 dfg kdr kdr 06:50 02:14 dfg kdr kd3
--- NOTE | 2023-02-06 02:10 | ER ---
Nurse's Notes [facility] Name: Casey Lyons Age: 87 yrs Sex: Female : 1935 Arrival Date: 02/06/2023 Time: 00:10 Bed 7 Private MD: Diagnosis: Shortness of breath;Weakness;Chest pain, unspecified;Anemia, unspecified;GI Bleed/ Gastrointestinal hemorrhage, unspecified;Subsequent non-ST elevation (NSTEMI) myocardial infarction;Acute kidney injury Presentation: 02/06 00:18 Chief complaint: Intermittent chest pain, SOB, and palpitations x 2 days. AFib R102 on hb 12 lead, hx of AFib and CVA, takes Eliquis. Coronavirus screen: At this time, the client does not indicate any symptoms associated with coronavirus-19. Ebola Screen: No symptoms or risks identified at this time. Initial Sepsis Screen: Does the patient meet any 2 criteria? No. Patient's initial sepsis screen is negative. Does the patient have a suspected source of infection? No. Patient's initial sepsis screen is negative. Risk Assessment: Do you want to hurt yourself or someone else? Patient reports no desire to harm self or others. Onset of symptoms was February 05, 2023. 00:18 Method Of Arrival: EMS: [facility] hb 00:18 Acuity: CLINT 3 hb Historical: - Allergies: 00:20 No Known Drug Allergies; hb - Home Meds: 00:20 Apriso 0.375 gram Oral cp24 4 caps once daily [Active]; atorvastatin 80 mg Oral tab 1 hb tab once daily [Active]; amlodipine 5 mg tablet daily [Active]; carvedilol 25 mg Oral tab 1 tab 2 times per day [Active]; aspirin 81 mg oral tablet, delayed release (enteric coated) daily [Active]; duloxetine 30 mg Oral cpDR 1 cap once daily [Active]; Eliquis 2.5 mg oral tablet once [Active]; ferrous sulfate 325 mg (65 mg iron) Oral tablet daily [Active]; furosemide 20 mg Oral tablet daily [Active]; galantamine 8 mg oral Capsule, ER Pellets 24 hr [Active]; levothyroxine 25 mcg tab 1 tab once daily [Active]; memantine 5 mg oral tablet daily [Active]; montelukast 10 mg oral tablet daily [Active]; multivitamin oral tablet every morning [Active]; Protonix 40 mg Oral grps 1 packet once daily [Active]; valsartan 40 mg oral tablet daily [Active]; - PMHx: 00:20 Crohn's; Dementia; Cellulitis of Leg; Cerebrovascular accident; High Cholesterol; hb Hypertension; CKD; - PSHx: 00:20 Stented artery; hb - Immunization history:: Adult Immunizations up to date. - Social history:: Smoking status: Patient denies any tobacco usage or history of. Screenin:42 [facility] ED Fall Risk Assessment (Adult) History of falling in the last 3 months, kd3 including since admission No falls in past 3 months (0 pts) Confusion or Disorientation No (0 pts) Intoxicated or Sedated No (0 pts) Impaired Gait No (0 pts) Mobility Assist Device Used No (0 pt) Altered Elimination No (0 pt) Score/Fall Risk Level 0 - 2 = Low Risk Maintained a safe environment. Abuse screen: Denies threats or abuse. Denies injuries from another. Nutritional screening: No deficits noted. Tuberculosis screening: No symptoms or risk factors identified. Assessment: 00:42 General: Appears in no apparent distress. Behavior is calm, cooperative. Pain: kd3 Complains of pain in chest Pain does not radiate. Pain began gradually. Cardiovascular: Patient's skin is warm and dry. 02:03 Reassessment: Initiated transfer with [facility] denied for internal disaster. vc1 02:03 Reassessment: Initiated transfer at [facility] [place], denied at 0222 do to no GI. vc1 02:22 Reassessment: Initiated transfer with [facility] KANE Smith unable to contact GI Dr. 1 03:23 GI: Stools are reported to be black . kd3 03:45 Reassessment: initiated transfer with [facility] Mumtaz Diehl, pt accepted by Dr. Alphonse Parekh at 0354. 04:24 Reassessment: [facility] to transfer after 0600. vc1 Vital Signs: 00:18 BP 104 / 105; Pulse 104; Resp 24; Temp 98.1; Pulse Ox 100% on R/A; Weight 57.15 kg; hb Height 5 ft. 3 in. ; Pain 6/10; 00:41 BP 132 / 51; Pulse 78; Resp 18; Pulse Ox 100% ; kd3 01:57 BP 118 / 45; Pulse 65; Resp 18; Pulse Ox 96% on R/A; kd3 02:49 BP 110 / 56; Pulse 91; Resp 18; Pulse Ox 100% ; kd3 04:55 BP 105 / 85; Pulse 84; Resp 16; Pulse Ox 100% on 1 lpm NC; kd3 06:50 BP 108 / 62; Pulse 81; Resp 18; Pulse Ox 99% on R/A; kd3 00:18 Body Mass Index 22.32 (57.15 kg, 160.02 cm) hb 00:18 Pain Scale: Adult hb ED Course: 00:15 Patient arrived in ED. la1 00:17 Jem Weston MD is Attending Physician. kdr 00:20 Triage completed. hb 00:40 XRAY Chest (1 view) In Process Unspecified. EDMS 00:40 Anna Hernandez, GLORIA is Primary Nurse. kd3 00:41 Basic Metabolic Panel Sent. kd3 00:41 CBC with Diff Sent. kd3 00:41 LFT's Sent. kd3 00:41 Magnesium Sent. kd3 00:41 NT PRO-BNP Sent. kd3 00:41 Troponin HS Sent. kd3 00:43 Patient maintains SpO2 saturation greater than 95% on room air. kd3 00:43 Inserted saline lock: 20 gauge in right antecubital area, using aseptic technique. kd3 Blood collected. 00:43 Patient has correct armband on for positive identification. Provided Education on: . kd3 Client placed on continuous cardiac and pulse oximetry monitoring. NIBP monitoring applied. satellite project site monitor on. 02:27 Type And Screen Sent. kd3 02:49 Inserted saline lock: 20 gauge in left antecubital area, using aseptic technique. Blood kd3 collected. 03:23 Assisted with bedpan. kd3 06:27 Arm band placed on right wrist. kd3 06:49 No provider procedures requiring assistance completed. Patient transferred, IV remains kd3 in place. Administered Medications: 02:27 Drug: Pantoprazole IVP 40 mg Route: IVP; Site: right antecubital; kd3 04:56 Follow up: Response: No adverse reaction kd3 02:48 Drug: Pantoprazole IV 8 mg/hr Route: IV; Rate: 25 ml/hr; Site: right antecubital; kd3 04:56 Follow up: IV Status: Infusion continued kd3 Medication: 00:42 VIS not applicable for this client. kd3 Outcome: 02:09 ER care complete, transfer ordered by . keny 06:49 Transferred by ground EMS kd3 06:49 Condition: stable 06:49 Discharge instructions given to patient, Instructed on discharge instructions, follow up and referral plans. Demonstrated understanding of instructions, follow-up care. 06:50 Patient left the ED. kd3 Signatures: Dispatcher [employer] EDMS Jem Weston MD MD kdr Attema, Lee, PUBLIC POLICY COORDINATOR-C PUBLIC POLICY COORDINATOR-Cla1 Kira Lewis, RN RN Anna Kwong RN RN kd3 Waleska Bledsoe RN RN vc1
[2023-02-06] MEDS ORDERED: PANTOPRAZOLE 40 MG INJ ONE ×2 (02:26→02:53)
[2023-02-06] MEDS ORDERED: NA CHLORIDE 0.9% 250 ML ONE ×2 (02:53→04:13)
[2023-02-06 07:16] VITALS: TEMP 98.1
[2023-02-06 07:26] VITALS: BP 108/62; O2SAT 99
--- NOTE | 2023-02-06 16:08 | RAD REPORT ---
EXAM DESCRIPTION: RAD - Chest Single View - 02/06/2023 12:38 am CLINICAL HISTORY: CHEST PAIN TECHNIQUE: AP chest COMPARISON: None available for comparison FINDINGS: CHEST: Heart: Cardiac silhouette is enlarged. Lungs: Mild interstitial prominence, likely chronic. Mediastinum: Unremarkable Pleura: No appreciable effusion. No pneumothorax. Right costophrenic angle is excluded from the field -of-view. Bones: Intact IMPRESSION: 1. Cardiomegaly. 2. Mild interstitial prominence, likely chronic. Electronically signed by: Phill Painting MD 02/06/2023 12:54 AM CDT Due to temporary technical issues with the PACS/Fluency reporting system, reports are being signed by the in house radiologists without review as a courtesy to insure prompt reporting. The interpreting radiologist is fully responsible for the content of the report.
--- NOTE | 2023-02-06 17:28 | EKG ---
Test Date: 2023-02-06 Test Time: 00:22:23 Chip Tuner: ESTELLA MEASUREMENT RESULTS: Intervals: Rate: 96 SD: 206 QRSD: 118 QT: 376 QTc: 475 [place]: P: 46 SD: 206 QRS: 53 T: 212 INTERPRETIVE STATEMENTS: Normal sinus rhythm Incomplete left bundle branch block ST & T wave abnormality, consider inferior ischemia Prolonged QT Abnormal ECG Compared to ECG 06/20/2022 19:54:02 Left bundle-branch block now present ST (T wave) deviation now present Possible ischemia now present Prolonged QT interval now present T-wave abnormality no longer present Electronically Signed On 02-06-23 17:27:06 CDT by Umberto Eugene
== END 2023-02-06 06:50 ==
LOC: ER 00:10
PROC: 30233N1 Transfusion of Nonautologous Red Blood Cells into Peripheral Vein, Percutaneous Approach (ICD-10-PCS; principal; 2023-02-06)
DX: I22.2 Subsequent non-ST elevation (NSTEMI) myocardial infarction (principal); I21.9 Acute myocardial infarction, unspecified; D64.9 Anemia, unspecified; K92.2 Gastrointestinal hemorrhage, unspecified; R06.02 Shortness of breath; R53.1 Weakness; N17.9 Acute kidney failure, unspecified; E78.00 Pure hypercholesterolemia, unspecified; F03.90 Unspecified dementia, unspecified severity, without behavioral disturbance, psychotic disturbance, mood disturbance, and anxiety; Z86.73 Personal history of transient ischemic attack (TIA), and cerebral infarction without residual deficits; Z79.82 Long term (current) use of aspirin; Z79.01 Long term (current) use of anticoagulants
CPT/HCPCS: 96365; 93005; 85025; 80048; 36415; 86900; 83735; 86850; 86901; 80076; 86920 ×2; 84484; 83880; 71045; 99285; 96366; 36430; C9113 ×2; P9016; J7050 ×2

== ENCOUNTER 2023-03-06 05:36 | Emergency (ER) | payer OTHER, MEDICARE ==
--- OUTSIDE RECORDS SUMMARY | 2023-03-06 05:53 | XMS REPORT | Continuity of Care Document ---
:1935 Author Organization [facility] t Address [address] [facility]. [address] [place] [address] Care Team Providers Name Role Phone JACK KAILA CAMP Primary Care Physician UnavailAVE Murphy Attending Clinician Unavailable WALESKA TIMMONS Attending Clinician Unavailable WALESKA TIMMONS Attending Clinician Unavailable KAM OLIVO Attending Clinician Unavailable KAM OLIVO Attending Clinician Unavailable 2, [facility] Attending Clinician Unavailable Ave Humphrey MD Attending Clinician Nurse, [facility] Infusion Attending Clinician Unavailable Doctor Unassigned, Beckett Attending Clinician Unavailable Iwona Islas MD Attending Clinician Linda Whitaker Attending Clinician Unavailable [facility] Attending Clinician [phone] Kelli Monteiro Attending Clinician KELLI KOCH Attending Clinician Unavailable Soni Mera LMSW Attending Clinician MARTHAJANEL Kya Attending Clinician Unavailable Varsha Bernal MD Attending Clinician [phone] VARSHA BERNAL Attending Clinician Unavailable Edgardo Guadalupe MD Attending Clinician JENNIE ALAMO Attending Clinician Unavailable Estevan VERNON, Orlando Miles Attending Clinician [phone] Yohan VERNON, Dasia Vivar Attending Clinician [phone] Nixon VERNON, Jennie Attending Clinician BRIGID GERARD Attending Clinician Unavailable XADNER HAYES Attending Clinician Unavailable ORLANDO BARRETO Attending Clinician Unavailable Linda Whitaker Admitting Clinician Unavailable Physician, No Primary or Family Admitting Clinician UnavailVARSHA Yeh Admitting Clinician Unavailable ORLANDO BARRETO Admitting Clinician Unavailable TANVIR LARSON Admitting Clinician Unavailable Payers Payer Name Policy Type Policy Number Effective Date Expiration Date S ource MEDICARE PART A \\[id number] 2002 B 00:00:00 [facility] [id number] 2020 MEDICARE SUPPLEMENT 00:00:00 MEDICARE A B [id number] 2002 00:00:00 [facility] [id number] 2021 HEALTHCARE 00:00:00 Problems Condition Condition Condition Status Onset Resolution Last Treating Co mments Source Name Details Category Date Date Treatment Clinician Date CHF CHF Disease Active Univers (congestiv (congestiv 7-24 it y of e heart e heart 00:00: [place] failure) failure) 00 Medica l Branch Postmenopa Postmenopa Disease Active U nivers usal usal 7-24 ity of [place] Branch Carotid Carotid Disease Active Overview: Univ ers stenosis stenosis 4-07 Formattin ity of 00:00: g of this [place] 00 note Medical might be Branch different from the original. plaque buildup CKD CKD Disease Active Univers (chronic (chronic - ity of kidney kidney 00:00: [place] disease) disease) 00 Medica l stage 3, stage 3, Branch GFR 30-59 GFR 30-59 ml/min ml/min Coronary Coronary Disease Active Overview: Un [place] artery artery 4-07 Formattin ity of disease disease 00:00: g of this [place] involving involving 00 note Medi valerie pamunkey pamunkey might be Branch coronary coronary different artery of artery of from the pamunkey pamunkey original. heart heart stent without without placed angina angina pectoris pectoris DVT (deep DVT (deep Disease Active Overview: Univers venous venous 09-27 Formattin ity of thrombosis thrombosis 00:00: g of this [place] ) ) 00 note Medical might be Branch different from the original. in legs, multiple Hearing Hearing Disease Active Overview: Univ ers loss loss - Formattin ity of 00:00: g of this [place] 00 note Medical might be Branch different from the original. Dr. Roy, has hearing aids bilateral History of History of Disease Active Overview : Univers cataract cataract - Formattin ity of 00:00: g of this [place] 00 note Medical might be Branch different from the original. bilateral HTN HTN Disease Active Univers (hypertens (hypertens -07 it y of ion), ion), 00:00: [place] benign benign 00 Medical Branch Macular Macular Disease Active Overview: Univ ers degenerati degenerati -07 Formattin ity of on on 00:00: g of this [place] 00 note Medical might be Branch different from the original. follows with Dr. Pham Memory Memory Disease Active Overview: Univer s loss loss -07 Formattin ity of 00:00: g of this [place] 00 note Medical might be Branch different from the original. short term, chronic microvasc ular ischemic changes on MRI brain, [facility] [place] PAD PAD Disease Active Overview: Univer s (periphera (periphera -07 Formattin ity of l artery l artery 00:00: g of this Jose Elias as disease) disease) 00 note Medica l might be Branch different from the original. legs requiring fem-pop bypass bilateral ly Stroke Stroke Disease Active 2022-0 Univers 4-07 ity of 00:00: [place] [address] Medical Branch Coronary Coronary Disease Active Overview: Un lawson artery artery 4-07 Formattin ity of disease disease 00:00: g of this [place] involving involving 00 note Medi valerie pamunkey pamunkey might be Branch coronary coronary different artery of artery of from the pamunkey pamunkey original. heart heart stent without without placed angina angina pectoris pectoris Ischemic Ischemic Disease Rec[facility] Anemia Anemia Disease Active Univers 03-16 ity of 00:00: [place] 00 Medical Branch Hypertensi Hypertensi Disease Active M ethodi on on 02-06 [facility]osp[facility] 00 l Hyperchole Hyperchole Disease Active M ethodi steremia steremia 02-06 00:00: Hospita 00 l Coronary Coronary Disease Active Metho di artery artery 02-06 st disease disease 00:00: Hospita 00 l Stage 3 Stage 3 Disease Active Methodi chronic chronic 02-06 kidney kidney 00:00: Hospita disease disease 00 l Acute Acute Disease Active Methodi blood loss blood loss 02-06 st anemia anemia 00:00: Hospita 00 l Peripheral Peripheral Disease Active Overview : Methodi arterial arterial 8-[address] disease disease 00:00: g of this Hospi ta 00 note l might be different from the original. Added automatic ally from request for surgery [id number] Coronary Coronary Disease Active Overview: Me thodi artery artery 8-[address] disease disease 00:00: g of this Hospi ta involving involving 00 note l pamunkey pamunkey might be heart with heart with different angina angina from the pectoris pectoris original. Added automatic ally from request for surgery [id number] Hyperlipem Hyperlipem Disease Active [facility] Received Received Disease Active [facility] tissue tissue 02-15 Lu plasminoge plasminoge 00:00: Me dical n n 00 Center activator activator (t-PA) (t-PA) less than less than 24 hours 24 hours prior to prior to arrival arrival Acute Acute Disease Recur[facility] ischemic ischemic nce 02-14 [facility] stroke stroke 00:00: Medical 00 Center [...] on on 12-01 [facility] 00:[facility]: Medical 00 [place] BRIONNA (acute BRIONNA (acute Disease Active [facility] kidney kidney 12-01 [facility] injury) injury) 00:00: Medical 00 [place] 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 11 [facility] 00:[facility]: Medical 00 [place] Insomnia Insomnia Disease [facility] Center Neuropathy Neuropathy Disease Active [facility] Physical Physical Disease Active [facility] deconditio deconditio 11 Richelle kes estefany estefany 00:00: Medical 00 [place] Cognitive Cognitive Disease Active [facility] impairment impairment 6-11 Richelle kes 00:00: Medical 00 Center Protein Protein Disease Active [facility] calorie calorie 6-11 [facility] malnutriti malnutriti 00:00: Me dical on on 00 Center Obesity Obesity Disease Recurre [facility] nce 610 [facility] 00:[facility]: Medical 00 [place] PVD PVD Disease Active 2016-[address] (periphera (periphera 608 Richelle kes l vascular l vascular 00:00: Me dical disease) disease) 00 Center Essential Essential Disease Active [facility] hypertensi hypertensi 6-08 Richelle kes on on 00:00: Medical 00 Center Hypothyroi Hypothyroi Disease Active [facility] d 608 [facility] 00:[facility] Center Coronary Coronary Disease Active [facility] artery artery 608 [facility] disease disease 00:00: Medical involving involving 00 Cent er pamunkey pamunkey coronary coronary artery of artery of pamunkey pamunkey heart with heart with angina angina pectoris pectoris Chest pain Chest pain Disease Active [facility] 6[facility]08 [facility] 00:[facility]: Medical 00 Center Hypertensi Hypertensi Disease Active [facility] ve ve 608 [facility] emergency emergency 00:00: Medi valerie 00 Center Coronary Coronary Disease Active [facility] artery artery 608 [facility] disease disease 00:00: Medical involving involving 00 Cent er pamunkey pamunkey coronary coronary artery of artery of pamunkey pamunkey heart with heart with angina angina pectoris pectoris Allergies, Adverse Reactions, Alerts Allergy Allergy Status Severity Reaction(s) Onset Inactive Treating Comm ents Source Name Type Date Date Clinician No Known DA Active [facility]ie 8[facility]17 [place] 00:[facility]: Health 00 are [facility] st NO KNOWN Allergy Active [facility] NO KNOWN Drug Active Univers ALLERGIE Class ity of S [facility] Social History Social Habit Start Date Stop Date Quantity Comments Source History of tobacco Cigarette Smoker University use [facility] Gender identity [facility] Sexual orientation [facility] SDOH [facility] Alcohol Frequency Medical Center History SDOH [facility] Alcohol Std Drinks Medica l Center History SDOH [facility] Alcohol Binge Medical Daph[address] ter Exposure to 2022-11-10 2022-11-20 Not sure University of SARS-CoV-2 (event) 00:00:00 14:20:00 [facility] Tobacco use and 2021-09-27 2021-09-27 Smokeless Universit y of exposure 00:00:00 00:00:00 tobacco non-user [facility] History of Social 2019-02-28 2019-02-[address] function 00:00:00 00:00:00 Hospital Alcohol intake 2018-02-19 2018-02-19 Current drinker XU Pettit 00:00:00 00:00:00 of [facility] (finding) Alcohol Comment 2015-11-29 2015-11-29 NONE LAST 2 XU Jansen 00:00:00 00:00:00 [facility] Cigarettes smoked 2015-11-29 2015-11-[address] [facility] current (pack per 00:00:00 00:00:00 Medical Center day) - Reported Cigarette 2015-11-29 2015-11-29 XU Oliveros pack-years 00:00:00 00:00:00 [facility] Sex Assigned At [birth year] XU Knoxs 00:00:00 00:00:00 [facility] Smoking Status Start Date Stop Date Source Smokes tobacco daily 2021-09-27 00:00:00 Univers ity [facility] Ex-smoker 2019-02-11 00:00:00 2019-02-11 00:00:00 [facility] Medications Ordered Filled Start Stop Current Ordering Indication Dosage Frequency Signature Comments Components Source Medication Medication Date Date Medication? Clinician (SIG) Name Name epoetin 3-0 2023- No [id number] 20,000 Univers ami-epbx 02-28 Units, ity of (RETACRIT) 20:30: 19:46 [facility] [place] injection 00 :00 us, ONCE, Medic al 20,000 1 dose, On Branch Units 02/28/23 at 1530, Routine
receiving team member approving Restricted medication : WALESKA TIMMONS ferrous 2023-0 Yes 325mg Take 1 Univers [...] of mg (65 mg 14:06: mouth in [facility] iron) 14 the Medical tablet morning Branch and 1 tablet in the evening. ferrous 2023-0 Yes 325mg Take 1 Univers sulfate 325 7-24 tablet by ity of mg (65 mg 14:06: mouth in [facility] iron) 14 the Medical tablet morning Branch and 1 tablet in the evening. ferrous 2023-0 Yes 325mg Take 1 Univers sulfate 325 7-24 tablet by ity of mg (65 mg 14:06: mouth in [facility]) 14 the Medical tablet morning Branch and 1 tablet in the evening. ferrous 2023-0 Yes 325mg Take 1 Univers sulfate 325 7-24 tablet by ity of mg (65 mg 14:06: mouth in [facility] iron) 14 the Medical tablet morning Branch and 1 tablet in the evening. furosemide 2023-0 Yes 20mg Take 1 Unive rs 20 mg 7-24 tablet by ity of tablet 14:04: mouth [place] 29 every Medical morning Branch and evening. Pantoprazol 2023-0 Yes 40mg Take 40 mg Univers e 40 mg 7-24 by mouth ity of delayed-rel 14:04: in the [place] [address] morning Medical suspension and 40 mg Bran ch in the evening. furosemide 2023-0 Yes 20mg Take 1 Unive rs 20 mg 7-24 tablet by ity of tablet 14:04: mouth [place] 29 every Medical morning Branch and evening. Pantoprazol 2023-0 Yes 40mg Take 40 mg Univers e 40 mg 7-24 by mouth ity of delayed-rel 14:04: in the [place] [address] morning Medical suspension and 40 mg Bran ch in the evening. furosemide 2023-0 Yes 20mg Take 1 Unive rs 20 mg 7-24 tablet by ity of tablet 14:04: mouth [place] 29 every Medical morning Branch and evening. Pantoprazol 2023-0 Yes 40mg Take 40 mg Univers e 40 mg 7-24 by mouth ity of delayed-rel 14:04: in the [facility] 29 morning Medical suspension and 40 mg Bran ch in the evening. furosemide 2023-0 Yes 20mg Take 1 Unive rs 20 mg 7-24 tablet by ity of tablet 14:04: mouth [place] 29 every Medical morning Branch and evening. Pantoprazol 2023-0 Yes 40mg Take 40 mg Univers e 40 mg 7-24 by mouth ity of delayed-rel 14:04: in the [place] [address] morning Medical suspension and 40 mg Bran ch in the evening. furosemide 2023-0 Yes 20mg Take 1 Unive rs 20 mg 7-24 tablet by ity of tablet 14:04: mouth [place] [address] every Medical morning Branch and evening. Pantoprazol 2023-0 Yes 40mg Take 40 mg Univers e 40 mg 7-24 by mouth ity of delayed-rel 14:04: in the [place] [address] morning Medical suspension and 40 mg Bran ch in the evening. furosemide 2023-0 Yes 20mg Take 1 Unive rs 20 mg 7-24 tablet by ity of tablet 14:04: mouth [place] [address] every Medical morning Branch and evening. Pantoprazol 2023-0 Yes 40mg Take 40 mg Univers e 40 mg 7-24 by mouth ity of delayed-rel 14:04: in the [place] [address] morning Medical suspension and 40 mg Bran ch in the evening. furosemide 2023-0 Yes 20mg Take 1 Unive rs 20 mg 7-24 tablet by ity of tablet 14:04: mouth [place] [address] every Medical morning Branch and evening. Pantoprazol 2023-0 Yes 40mg Take 40 mg Univers e 40 mg 7-24 by mouth ity of delayed-rel 14:04: in the [place] [address] morning Medical suspension and 40 mg Bran ch in the evening. furosemide 2023-0 Yes 20mg Take 1 Unive rs 20 mg 7-24 tablet by ity of tablet 14:04: mouth [place] [address] every Medical morning Branch and evening. Pantoprazol 2023-0 Yes 40mg Take 40 mg Univers e 40 mg 7-24 by mouth ity of delayed-rel 14:04: in the [place] [address] morning Medical suspension and 40 mg Bran ch in the evening. furosemide 2023-0 Yes 20mg Take 1 Unive rs 20 mg 7-24 tablet by ity of tablet 14:04: mouth [place] [address] every Medical morning Branch and evening. Pantoprazol 2023-0 Yes 40mg Take 40 mg Univers e 40 mg 7-24 by mouth ity of delayed-rel 14:04: in the [place] [address] morning Medical suspension and 40 mg Bran ch in the evening. furosemide 2023-0 Yes 20mg Take 1 Unive rs 20 mg 7-24 tablet by ity of tablet 14:04: mouth [place] 29 every Medical morning Branch and evening. Pantoprazol 2023-0 Yes 40mg Take 40 mg Univers e 40 mg 7-24 by mouth ity of delayed-rel 14:04: in the [place] [address] morning Medical suspension and 40 mg Bran ch in the evening. furosemide 2023-0 Yes 20mg Take 1 Unive rs 20 mg 7-24 tablet by ity of tablet 14:04: mouth [place] 29 every Medical morning Branch and evening. Pantoprazol 2023-0 Yes 40mg Take 40 mg Univers e 40 mg 7-24 by mouth ity of delayed-rel 14:04: in the [place] [address] morning Medical suspension and 40 mg Bran ch in the evening. furosemide 2023-0 Yes 20mg Take 1 Unive rs 20 mg 7-24 tablet by ity of tablet 14:04: mouth [place] 29 every Medical morning Branch and evening. Pantoprazol 2023-0 Yes 40mg Take 40 mg Univers e 40 mg 7-24 by mouth ity of delayed-rel 14:04: in the [place] [address] morning Medical suspension and 40 mg Bran ch in the evening. furosemide 2023-0 Yes 20mg Take 1 Unive rs 20 mg 7-24 tablet by ity of tablet 14:04: mouth [place] [address] every Medical morning Branch and evening. Pantoprazol 2023-0 Yes 40mg Take 40 mg Univers e 40 mg 7-24 by mouth ity of delayed-rel 14:04: in the [place] [address] morning Medical suspension and 40 mg Bran ch in the evening. furosemide 2023-0 Yes 20mg Take 1 Unive rs 20 mg 7-24 tablet by ity of tablet 14:04: mouth [place] 29 every Medical morning Branch and evening. Pantoprazol 2023-0 Yes 40mg Take 40 mg Univers e 40 mg 7-24 by mouth ity of delayed-rel 14:04: in the [place] [address] morning Medical suspension and 40 mg Bran ch in the evening. furosemide 2023-0 Yes 20mg Take 1 Unive rs 20 mg 7-24 tablet by ity of tablet 14:04: mouth [place] 29 every Medical morning Branch and evening. Pantoprazol 2023-0 Yes 40mg Take 40 mg Univers e 40 mg 7-24 by mouth ity of delayed-rel 14:04: in the [place] [address] morning Medical suspension and 40 mg Bran ch in the evening. furosemide 2023-0 Yes 20mg Take 1 Unive rs 20 mg 7-24 tablet by ity of tablet 14:04: mouth [place] [address] every Medical morning Branch and evening. Pantoprazol 2023-0 Yes 40mg Take 40 mg Univers e 40 mg 7-24 by mouth ity of delayed-rel 14:04: in the [place] [address] morning Medical suspension and 40 mg Bran ch in the evening. furosemide 2023-0 Yes 20mg Take 1 Unive rs 20 mg 7-24 tablet by ity of tablet 14:04: mouth [place] 29 every Medical morning Branch and evening. Pantoprazol 2023-0 Yes 40mg Take 40 mg Univers e 40 mg 7-24 by mouth ity of delayed-rel 14:04: in the [place] [address] morning Medical suspension and 40 mg Bran ch in the evening. furosemide 2023-0 Yes 20mg Take 1 Unive rs 20 mg 7-24 tablet by ity of tablet 14:04: mouth [place] [address] every Medical morning Branch and evening. Pantoprazol 2023-0 Yes 40mg Take 40 mg Univers e 40 mg 7-24 by mouth ity of delayed-rel 14:04: in the [place] [address] morning Medical suspension and 40 mg Bran ch in the evening. furosemide 2023-0 Yes 20mg Take 1 Unive rs 20 mg 7-24 tablet by ity of tablet 14:04: mouth [place] [address] every Medical morning Branch and evening. Pantoprazol 2023-0 Yes 40mg Take 40 mg Univers e 40 mg 7-24 by mouth ity of delayed-rel 14:04: in the [place] [address] morning Medical suspension and 40 mg Bran ch in the evening. furosemide 2023-0 Yes 20mg Take 1 Unive rs 20 mg 7-24 tablet by ity of tablet 14:04: mouth [place] [address] every Medical morning Branch and evening. Pantoprazol 2023-0 Yes 40mg Take 40 mg Univers e 40 mg 7-24 by mouth ity of delayed-rel 14:04: in the [place] [address] morning Medical suspension and 40 mg Bran ch in the evening. furosemide 2023-0 Yes 20mg Take 1 Unive rs 20 mg 7-24 tablet by ity of tablet 14:04: mouth [place] 29 every Medical morning Branch and evening. Pantoprazol 2023-0 Yes 40mg Take 40 mg Univers e 40 mg 7-24 by mouth ity of delayed-rel 14:04: in the [place] [address] morning Medical suspension and 40 mg Bran ch in the evening. furosemide 2023-0 Yes 20mg Take 1 Unive rs 20 mg 7-24 tablet by ity of tablet 14:04: mouth [place] [address] every Medical morning Branch and evening. Pantoprazol 2023-0 Yes 40mg Take 40 mg Univers e 40 mg 7-24 by mouth ity of delayed-rel 14:04: in the [place] [address] morning Medical suspension and 40 mg Bran ch in the evening. furosemide 2023-0 Yes 20mg Take 1 Unive rs 20 mg 7-24 tablet by ity of tablet 14:04: mouth [place] [address] every Medical morning Branch and evening. Pantoprazol 2023-0 Yes 40mg Take 40 mg Univers e 40 mg 7-24 by mouth ity of delayed-rel 14:04: in the [place] [address] morning Medical suspension and 40 mg Bran ch in the evening. furosemide 2023-0 Yes 20mg Take 1 Unive rs 20 mg 7-24 tablet by ity of tablet 14:04: mouth [place] [address] every Medical morning Branch and evening. Pantoprazol 2023-0 Yes 40mg Take 40 mg Univers e 40 mg 7-24 by mouth ity of delayed-rel 14:04: in the [place] [address] morning Medical suspension and 40 mg Bran ch in the evening. furosemide 2023-0 Yes 20mg Take 1 Unive rs 20 mg 7-24 tablet by ity of tablet 14:04: mouth [place] [address] every Medical morning Branch and evening. Pantoprazol 2023-0 Yes 40mg Take 40 mg Univers e 40 mg 7-24 by mouth ity of delayed-rel 14:04: in the [place] [address] morning Medical suspension and 40 mg Bran ch in the evening. furosemide 2023-0 Yes 20mg Take 1 Unive rs 20 mg 7-24 tablet by ity of tablet 14:04: mouth [place] [address] every Medical morning Branch and evening. Pantoprazol 2023-0 Yes 40mg Take 40 mg Univers e 40 mg 7-24 by mouth ity of delayed-rel 14:04: in the [place] [address] morning Medical suspension and 40 mg Bran ch in the evening. furosemide 2023-0 Yes 20mg Take 1 Unive rs 20 mg 7-24 tablet by ity of tablet 14:04: mouth [place] 29 every Medical morning Branch and evening. Pantoprazol 2022-0 Yes 40mg Take 40 mg Univers e 40 mg 7-24 by mouth ity of delayed-rel 14:04: [place] morning Medical suspension and 40 mg Bran ch in the evening. DULOXETINE 2022-0 Yes [id number] TAKE ONE Univers 30 mg 7-12 CAPSULE BY ity of capsule 00:00: MOUTH [place] 00 DAILY Medical Branch DULOXETINE 3-0 Yes [id number] TAKE ONE Univers 30 mg 7-12 CAPSULE BY ity of capsule 00:00: MOUTH [place] DAILY Medical Branch DULOXETINE 3-0 Yes [id number] TAKE ONE Univers 30 mg 7-12 CAPSULE BY ity of capsule 00:00: [facility] DAILY Medical Branch DULOXETINE 3-0 Yes [id number] TAKE ONE Univers 30 mg 7-12 CAPSULE BY ity of capsule 00:00: [facility] DAILY Medical Branch DULOXETINE 3-0 Yes [id number] TAKE ONE Univers 30 mg 7-12 CAPSULE BY ity of capsule 00:00: [facility] DAILY Medical Branch DULOXETINE 3-0 Yes [id number] TAKE ONE Univers 30 mg 7-12 CAPSULE BY ity of capsule 00:00: [facility] DAILY Medical Branch DULOXETINE 3-0 Yes [id number] TAKE ONE Univers 30 mg 7-12 CAPSULE BY ity of capsule 00:00: [facility] DAILY Medical Branch DULOXETINE 3-0 Yes [id number] TAKE ONE Univers 30 mg 7-12 CAPSULE BY ity of capsule 00:00: [facility] DAILY Medical Branch DULOXETINE 3-0 Yes [id number] TAKE ONE Univers 30 mg 7-12 CAPSULE BY ity of capsule 00:00: [facility] DAILY Medical Branch DULOXETINE 3-0 Yes [id number] TAKE ONE Univers 30 mg 7-12 CAPSULE BY ity of capsule 00:00: [facility] DAILY Medical Branch DULOXETINE 3-0 Yes [id number] TAKE ONE Univers 30 mg 7-12 CAPSULE BY ity of capsule 00:00: [facility] DAILY Medical Branch DULOXETINE 3-0 Yes [id number] TAKE ONE Univers 30 mg 7-12 CAPSULE BY ity of capsule 00:00: [facility] DAILY Medical Branch DULOXETINE 3-0 Yes [id number] TAKE ONE Univers 30 mg 7-12 CAPSULE BY ity of capsule 00:00: MOUTH [place] 00 DAILY Medical Branch DULOXETINE 2023-0 Yes [id number] TAKE ONE Univers 30 mg 7-12 CAPSULE BY ity of capsule 00:00: MOUTH [place] DAILY Medical Branch DULOXETINE 2023-0 Yes [id number] TAKE ONE Univers 30 mg 7-12 CAPSULE BY ity of capsule 00:00: MOUTH DAILY Medical Branch DULOXETINE 2023-0 Yes [id number] TAKE ONE Univers 30 mg 7-12 CAPSULE BY ity of capsule 00:00: MOUTH [place] DAILY Medical Branch DULOXETINE 2023-0 Yes [id number] TAKE ONE Univers 30 mg 7-12 CAPSULE BY ity of capsule 00:00: MOUTH [place] DAILY Medical Branch DULOXETINE 3-0 Yes [id number] TAKE ONE Univers 30 mg 7-12 CAPSULE BY ity of capsule 00:00: MOUTH [place] DAILY Medical Branch DULOXETINE 3-0 Yes [id number] TAKE ONE Univers 30 mg 7-12 CAPSULE BY ity of capsule 00:00: MOUTH [place] DAILY Medical Branch DULOXETINE 2023-0 Yes [id number] TAKE ONE Univers 30 mg 7-12 CAPSULE BY ity of capsule 00:00: MOUTH [place] DAILY Medical Branch DULOXETINE 3-0 Yes [id number] TAKE ONE Univers 30 mg 7-12 CAPSULE BY ity of capsule 00:00: MOUTH [place] DAILY Medical Branch DULOXETINE 3-0 Yes [id number] TAKE ONE Univers 30 mg 7-12 CAPSULE BY ity of capsule 00:00: MOUTH [place] DAILY Medical Branch DULOXETINE 2023-0 Yes [id number] TAKE ONE Univers 30 mg 7-12 CAPSULE BY ity of capsule 00:00: MOUTH [place] DAILY Medical Branch DULOXETINE 2023-0 Yes [id number] TAKE ONE [facility] 30 mg 7-12 CAPSULE BY [facility] capsule 00:00: MOUTH [place] DAILY [facility] DULOXETINE 2023-0 Yes [id number] TAKE ONE [facility] 30 mg 7-12 CAPSULE BY [facility] capsule 00:00: MOUTH [place] DAILY [facility] DULOXETINE 2023-0 Yes [id number] TAKE ONE [facility] 30 mg 7-12 CAPSULE BY [facility] capsule 00:00: MOUTH [place] DAILY [facility] DULOXETINE 2023-0 Yes [id number] TAKE ONE [facility] 30 mg 7-12 CAPSULE BY [facility] of capsule 00:00: MOUTH [place] DAILY [facility] DULOXETINE 2023-0 Yes [id number] TAKE ONE [facility] 30 mg 7-12 CAPSULE BY [facility] capsule 00:00: MOUTH [place] 00 DAILY [facility] DULOXETINE 2022-0 Yes [id number] TAKE ONE [facility] 30 mg 7-12 CAPSULE BY [facility] of capsule 00:00: MOUTH [place] 00 DAILY [facility] DULOXETINE 3-0 Yes [id number] TAKE ONE [facility] 30 mg 7-12 CAPSULE BY [facility] of capsule 00:00: MOUTH [place] 00 DAILY [facility] DULOXETINE 3-0 Yes [id number] TAKE ONE [facility] 30 mg 7-12 CAPSULE BY [facility] of capsule 00:00: MOUTH [place] 00 DAILY [facility] DULOXETINE 3-0 Yes [id number] TAKE ONE [facility] 30 mg 7-12 CAPSULE BY [facility] of capsule 00:00: MOUTH [place] 00 DAILY [facility] FAMOTIDINE 2022-0 Yes [id number] 20mg TAKE 1 [facility] 20 mg 6-28 TABLET BY [facility] tablet 00:00: MOUTH [place] 00 DAILY. [facility] ELIQUIS 2.5 0 Yes [id number] TAKE 1 [facility] mg tablet 6-28 TABLET BY ity o f 00:00: MOUTH [place] 00 2(TWO) Medical TIMES Branch DAILY FAMOTIDINE 2022-0 Yes [id number] 20mg TAKE 1 [facility] 20 mg 6-28 TABLET BY [facility] tablet 00:00: MOUTH [place] 00 DAILY. [facility] ELIQUIS 2.5 2022-0 Yes [id number] TAKE 1 [facility] mg tablet 6-28 TABLET BY ity o f 00:00: MOUTH [place] 00 2(TWO) Medical TIMES Branch DAILY FAMOTIDINE 2022-0 Yes [id number] 20mg TAKE 1 [facility] 20 mg 6-28 TABLET BY [facility] tablet 00:00: MOUTH [place] 00 DAILY. [facility] ELIQUIS 2.5 2022-0 Yes [id number] TAKE 1 [facility] mg tablet 6-28 TABLET BY ity o f 00:00: MOUTH [place] 00 2(TWO) Medical TIMES Branch DAILY FAMOTIDINE 2022-0 Yes [id number] 20mg TAKE 1 [facility] 20 mg 6-28 TABLET BY [facility] tablet 00:00: MOUTH [place] 00 DAILY. [facility] ELIQUIS 2.5 2022-0 Yes [id number] TAKE 1 [facility] mg tablet 6-28 TABLET BY ity o f 00:00: MOUTH [place] 00 2(TWO) Medical TIMES Branch DAILY FAMOTIDINE 2022-0 Yes [id number] 20mg TAKE 1 [facility] 20 mg 6-28 TABLET BY [facility] tablet 00:00: MOUTH [place] 00 DAILY. [facility] ELIQUIS 2.5 2022- Yes [id number] TAKE 1 [facility] mg tablet 6-28 TABLET BY ity o f 00:00: MOUTH [place] 00 2(TWO) Medical TIMES Branch DAILY FAMOTIDINE 2022-0 Yes [id number] 20mg TAKE 1 [facility] 20 mg 6-28 TABLET BY [facility] tablet 00:00: MOUTH [place] 00 DAILY. [facility] ELIQUIS 2.5 2022- Yes [id number] TAKE 1 [facility] mg tablet 6-28 TABLET BY ity o f 00:00: MOUTH [place] 00 2(TWO) Medical TIMES Branch DAILY FAMOTIDINE 2022-0 Yes [id number] 20mg TAKE 1 [facility] 20 mg 6-28 TABLET BY [facility] tablet 00:00: MOUTH [place] 00 DAILY. [facility] ELIQUIS 2.5 2022- Yes [id number] TAKE 1 [facility] mg tablet 6-28 TABLET BY ity o f 00:00: MOUTH [place] 00 2(TWO) Medical TIMES Branch DAILY ELIQUIS 2.5 Yes [id number] TAKE 1 [facility] mg tablet 6-28 TABLET BY ity o f 00:00: MOUTH [place] 00 2(TWO) Medical TIMES Branch DAILY ELIQUIS 2.5 Yes [id number] TAKE 1 [facility] mg tablet 6-28 TABLET BY ity o f 00:00: MOUTH [place] 00 2(TWO) Medical TIMES Branch DAILY ELIQUIS 2.5 2022-0 Yes [id number] TAKE 1 [facility] mg tablet 6-28 TABLET BY ity o f 00:00: MOUTH [place] 00 2(TWO) Medical TIMES Branch DAILY ELIQUIS 2.5 Yes [id number] TAKE 1 [facility] mg tablet 6-28 TABLET BY ity o f 00:00: MOUTH [place] 00 2(TWO) Medical TIMES Branch DAILY ELIQUIS 2.5 2022-0 Yes [id number] TAKE 1 [facility] mg tablet 6-28 TABLET BY ity o f 00:00: MOUTH [place] 00 2(TWO) Medical TIMES Branch DAILY ELIQUIS 2.5 2022-0 Yes [id number] TAKE 1 [facility] mg tablet 6-28 TABLET BY ity o f 00:00: MOUTH [place] 00 2(TWO) Medical TIMES Branch DAILY ELIQUIS 2.5 2022-0 Yes [id number] TAKE 1 [facility] mg tablet 6-28 TABLET BY ity o f 00:00: MOUTH [place] 00 2(TWO) Medical TIMES Branch DAILY ELIQUIS 2.5 2022-0 Yes [id number] TAKE 1 [facility] mg tablet 6-28 TABLET BY ity o f 00:00: MOUTH [place] 00 2(TWO) Medical TIMES Branch DAILY ELIQUIS 2.5 2022-0 Yes [id number] TAKE 1 [facility] mg tablet 6-28 TABLET BY ity o f 00:00: MOUTH [place] 00 2(TWO) Medical TIMES Branch DAILY ELIQUIS 2.5 2022-0 Yes [id number] TAKE 1 [facility] mg tablet 6-28 TABLET BY ity o f 00:00: MOUTH [place] 00 2(TWO) Medical TIMES Branch DAILY ELIQUIS 2.5 2022-0 Yes [id number] TAKE 1 [facility] mg tablet 6-28 TABLET BY ity o f 00:00: MOUTH [place] 00 2(TWO) Medical TIMES Branch DAILY ELIQUIS 2.5 2022-0 Yes [id number] TAKE 1 [facility] mg tablet 6-28 TABLET BY ity o f 00:00: MOUTH [place] 00 2(TWO) Medical TIMES Branch DAILY ELIQUIS 2.5 2022-0 Yes [id number] TAKE 1 [facility] mg tablet 6-28 TABLET BY ity o f 00:00: MOUTH [place] 00 2(TWO) Medical TIMES Branch DAILY ELIQUIS 2.5 2022-0 Yes [id number] TAKE 1 [facility] mg tablet 6-28 TABLET BY ity o f 00:00: MOUTH [place] 00 2(TWO) Medical TIMES Branch DAILY ELIQUIS 2.5 2022-0 Yes [id number] TAKE 1 [facility] mg tablet 6-28 TABLET BY ity o f 00:00: MOUTH [place] 00 2(TWO) Medical TIMES Branch DAILY ELIQUIS 2.5 2022-0 Yes [id number] TAKE 1 [facility] mg tablet 6-28 TABLET BY ity o f 00:00: MOUTH [place] 00 2(TWO) Medical TIMES Branch DAILY ELIQUIS 2.5 2022-0 Yes [id number] TAKE 1 [facility] mg tablet 6-28 TABLET BY ity o f 00:00: MOUTH [place] 00 2(TWO) Medical TIMES Branch DAILY ELIQUIS 2.5 2022-0 Yes [id number] TAKE 1 [facility] mg tablet 6-28 TABLET BY ity o f 00:00: MOUTH [place] 00 2(TWO) Medical TIMES Branch DAILY ELIQUIS 2.5 2022-0 Yes [id number] TAKE 1 [facility] mg tablet 6-28 TABLET BY ity o f 00:00: MOUTH [place] 00 2(TWO) Medical TIMES Branch DAILY ELIQUIS 2.5 2022-0 Yes [id number] TAKE 1 [facility] mg tablet 6-28 TABLET BY ity o f 00:00: MOUTH [place] 00 2(TWO) Medical TIMES Branch DAILY ELIQUIS 2.5 2022-0 Yes [id number] TAKE 1 [facility] mg tablet 6-28 TABLET BY ity o f 00:00: MOUTH [place] 00 2(TWO) Medical TIMES Branch DAILY ELIQUIS 2.5 2022-0 Yes [id number] TAKE 1 [facility] mg tablet 6-28 TABLET BY ity o f 00:00: MOUTH [place] 00 2(TWO) Medical TIMES Branch DAILY ELIQUIS 2.5 2022-0 Yes [id number] TAKE 1 [facility] mg tablet 6-28 TABLET BY ity o f 00:00: MOUTH [place] 00 2(TWO) Medical TIMES Branch DAILY ELIQUIS 2.5 2022-0 Yes [id number] TAKE 1 [facility] mg tablet 6-28 TABLET BY ity o f 00:00: MOUTH [place] 00 2(TWO) Medical TIMES Branch DAILY ELIQUIS 2.5 2022-0 Yes [id number] TAKE 1 [facility] mg tablet 6-28 TABLET BY ity o f 00:00: MOUTH [place] 00 2(TWO) Medical TIMES Branch DAILY ELIQUIS 2.5 2022-0 Yes [id number] TAKE 1 [facility] mg tablet 6-28 TABLET BY ity o f 00:00: MOUTH [place] 00 2(TWO) Medical TIMES Branch DAILY ELIQUIS 2.5 2022-0 Yes [id number] TAKE 1 [facility] mg tablet 6-28 TABLET BY ity o f 00:00: MOUTH [place] 00 2(TWO) Medical TIMES Branch DAILY FAMOTIDINE 2022-2022- No [id number] 20mg TAKE 1 [facility] 20 mg 6-28 07-24 TABLET BY it[facility] of tablet 00:00: 00:00 MOUTH [place] 00 :00 DAILY. [facility] Branch FAMOTIDINE 2022-2022- No [id number] 20mg TAKE 1 [facility] 20 mg 6-28 07-24 TABLET BY ity of tablet 00:00: 00:00 MOUTH [place] 00 :00 DAILY. [facility] FAMOTIDINE 2022022- No [id number] 20mg TAKE 1 [facility] 20 mg 6-28 07-24 TABLET BY it[facility] of tablet 00:00: 00:00 MOUTH [place] 00 :00 DAILY. [facility] FAMOTIDINE 2022- No [id number] 20mg TAKE 1 [facility] 20 mg 6-28 07-24 TABLET BY ity of tablet 00:00: 00:00 MOUTH [place] 00 :00 DAILY. [facility] FAMOTIDINE 2022- No [id number] 20mg TAKE 1 [facility] 20 mg 6-28 07-24 TABLET BY ity of tablet 00:00: 00:00 MOUTH [place] 00 :00 DAILY. [facility] FAMOTIDINE 2022- No [id number] 20mg TAKE 1 [facility] 20 mg 6-28 07-24 TABLET BY ity of tablet 00:00: 00:00 MOUTH [place] 00 :00 DAILY. [facility] 0 Yes [id number] 10mg TAKE 1 [facility] 10 mg 6-26 TABLET BY ity of tablet 00:00: MOUTH AT [place] [facility] Yes [id number] 10mg TAKE 1 [facility] 10 mg 6-26 TABLET BY ity of tablet 00:00: MOUTH AT [address] Yes [id number] 10mg TAKE 1 [facility] 10 mg 6-26 TABLET BY ity of tablet 00:00: MOUTH AT [address] Yes [id number] 10mg TAKE 1 [facility] 10 mg 6-26 TABLET BY ity of tablet 00:00: MOUTH AT [address] 0 Yes [id number] 10mg TAKE 1 [facility] 10 mg 6-26 TABLET BY ity of tablet 00:00: MOUTH AT [address] 0 Yes [id number] 10mg TAKE 1 [facility] 10 mg 6-26 TABLET BY ity of tablet 00:00: MOUTH AT [address] 0 Yes [id number] 10mg TAKE 1 [facility] 10 mg 6-26 TABLET BY ity of tablet 00:00: MOUTH AT [address] Yes [id number] 10mg TAKE 1 [facility] 10 mg 6-26 TABLET BY ity of tablet 00:00: MOUTH AT [place] [facility] Yes [id number] 10mg TAKE 1 [facility] 10 mg 6-26 TABLET BY ity of tablet 00:00: MOUTH AT [place] [facility] Yes [id number] 10mg TAKE 1 [facility] 10 mg 6-26 TABLET BY ity of tablet 00:00: MOUTH AT [place] [facility] Yes [id number] 10mg TAKE 1 [facility] 10 mg 6-26 TABLET BY ity of tablet 00:00: MOUTH AT [place] [facility] Yes [id number] 10mg TAKE 1 [facility] 10 mg 6-26 TABLET BY ity of tablet 00:00: MOUTH AT [place] [facility] Yes [id number] 10mg TAKE 1 [facility] 10 mg 6-26 TABLET BY ity of tablet 00:00: MOUTH AT [place] [facility] Yes [id number] 10mg TAKE 1 [facility] 10 mg 6-26 TABLET BY ity of tablet 00:00: MOUTH AT [place] [facility] Yes [id number] 10mg TAKE 1 [facility] 10 mg 6-26 TABLET BY ity of tablet 00:00: MOUTH AT [place] [facility] Yes [id number] 10mg TAKE 1 [facility] 10 mg 6-26 TABLET BY ity of tablet 00:00: MOUTH AT [place] [facility] Yes [id number] 10mg TAKE 1 [facility] 10 mg 6-26 TABLET BY ity of tablet 00:00: MOUTH AT [place] [facility] Yes [id number] 10mg TAKE 1 [facility] 10 mg 6-26 TABLET BY ity of tablet 00:00: MOUTH AT [address] Yes [id number] 10mg TAKE 1 [facility] 10 mg 6-26 TABLET BY ity of tablet 00:00: MOUTH AT [address] Yes [id number] 10mg TAKE 1 [facility] 10 mg 6-26 TABLET BY ity of tablet 00:00: MOUTH AT [place] 00 [facility] Yes [id number] 10mg TAKE 1 [facility] 10 mg 6-26 TABLET BY ity of tablet 00:00: MOUTH AT [place] [facility] Yes [id number] 10mg TAKE 1 [facility] 10 mg 6-26 TABLET BY ity of tablet 00:00: MOUTH AT [place] [facility] Yes [id number] 10mg TAKE 1 [facility] 10 mg 6-26 TABLET BY ity of tablet 00:00: MOUTH AT [place] [facility] Yes [id number] 10mg TAKE 1 [facility] 10 mg 6-26 TABLET BY ity of tablet 00:00: MOUTH AT [place] [facility] Yes [id number] 10mg TAKE 1 [facility] 10 mg 6-26 TABLET BY ity of tablet 00:00: MOUTH AT [place] [facility] Yes [id number] 10mg TAKE 1 [facility] 10 mg 6-26 TABLET BY ity of tablet 00:00: MOUTH AT [place] [facility] Yes [id number] 10mg TAKE 1 [facility] 10 mg 6-26 TABLET BY ity of tablet 00:00: MOUTH AT [place] [facility] Yes [id number] 10mg TAKE 1 [facility] 10 mg 6-26 TABLET BY ity of tablet 00:00: MOUTH AT [place] [facility] Yes [id number] 10mg TAKE 1 [facility] 10 mg 6-26 TABLET BY ity of tablet 00:00: MOUTH AT [place] [facility] Yes [id number] 10mg TAKE 1 [facility] 10 mg 6-26 TABLET BY ity of tablet 00:00: MOUTH AT [address] Yes [id number] 10mg TAKE 1 [facility] 10 mg 6-26 TABLET BY ity of tablet 00:00: MOUTH AT [address] Yes [id number] 10mg TAKE 1 [facility] 10 mg 6-26 TABLET BY ity of tablet 00:00: MOUTH AT [address] 0 Yes [id number] 10mg TAKE 1 [facility] 10 mg 6-26 TABLET BY ity of tablet 00:00: [facility] AT [place] BEDTIME Medical Branch [facility] 2022-0 Yes [id number] 10mg TAKE 1 [facility] 10 mg 6-26 TABLET BY ity of tablet 00:00: [facility] AT [place] BEDTIME Medical Branch MONTEKAST 2022-0 Yes [id number] 10mg TAKE 1 [facility] 10 mg 6-26 TABLET BY ity of tablet 00:00: [facility] AT [place] BEDTIME Medical Branch ATORVASTATI 0 Yes [id number] 80mg TAKE 1 [facility] N 80 mg 6-16 TABLET BY ity of tablet 00:00: [facility] DAILY Medical Branch LEVOTHYROXI 0 Yes [id number] 75ug TAKE 1 [facility] NE 75 mcg 6-16 TABLET BY ity o f tablet 00:00: [facility] EVERY Medical MORNING Branch ATORVASTATI 0 Yes [id number] 80mg TAKE 1 [facility] N 80 mg 6-16 TABLET BY ity of tablet 00:00: [facility] DAILY Medical Branch LEVOTHYROXI 2022-0 Yes [id number] 75ug TAKE 1 [facility] NE 75 mcg 6-16 TABLET BY ity o f tablet 00:00: [facility] EVERY Medical MORNING Branch ATORVASTATI 0 Yes [id number] 80mg TAKE 1 [facility] N 80 mg 6-16 TABLET BY ity of tablet 00:00: [facility] DAILY Medical Branch LEVOTHYROXI 2022-0 Yes [id number] 75ug TAKE 1 [facility] NE 75 mcg 6-16 TABLET BY ity o f tablet 00:00: [facility] EVERY Medical MORNING Branch ATORVASTATI 2022-0 Yes [id number] 80mg TAKE 1 [facility] N 80 mg 6-16 TABLET BY ity of tablet 00:00: [facility] DAILY Medical Branch LEVOTHYROXI 2022-0 Yes [id number] 75ug TAKE 1 [facility] NE 75 mcg 6-16 TABLET BY ity o f tablet 00:00: [facility] EVERY Medical MORNING Branch ATORVASTATI 0 Yes [id number] 80mg TAKE 1 [facility] N 80 mg 6-16 TABLET BY ity of tablet 00:00: [facility] DAILY Medical Branch LEVOTHYROXI 2022-0 Yes [id number] 75ug TAKE 1 [facility] NE 75 mcg 6-16 TABLET BY ity o f tablet 00:00: MOUTH EVERY Medical MORNING Branch ATORVASTATI 0 Yes [id number] 80mg TAKE 1 [facility] N 80 mg 6-16 TABLET BY ity of tablet 00:00: MOUTH DAILY Medical Branch LEVOTHYROXI 0 Yes [id number] 75ug TAKE 1 [facility] NE 75 mcg 6-16 TABLET BY ity o f tablet 00:00: MOUTH EVERY Medical MORNING Branch ATORVASTATI Yes [id number] 80mg TAKE 1 [facility] N 80 mg 6-16 TABLET BY ity of tablet 00:00: MOUTH DAILY Medical Branch LEVOTHYROXI Yes [id number] 75ug TAKE 1 [facility] NE 75 mcg 6-16 TABLET BY ity o f tablet 00:00: MOUTH EVERY Medical MORNING Branch ATORVASTATI Yes [id number] 80mg TAKE 1 [facility] N 80 mg 6-16 TABLET BY ity of tablet 00:00: MOUTH DAILY Medical Branch LEVOTHYROXI Yes [id number] 75ug TAKE 1 [facility] NE 75 mcg 6-16 TABLET BY ity o f tablet 00:00: MOUTH EVERY Medical MORNING Branch ATORVASTATI Yes [id number] 80mg TAKE 1 [facility] N 80 mg 6-16 TABLET BY ity of tablet 00:00: MOUTH DAILY Medical Branch LEVOTHYROXI 0 Yes [id number] 75ug TAKE 1 [facility] NE 75 mcg 6-16 TABLET BY ity o f tablet 00:00: [facility] EVERY Medical MORNING Branch ATORVASTATI Yes [id number] 80mg TAKE 1 [facility] N 80 mg 6-16 TABLET BY ity of tablet 00:00: MOUTH DAILY Medical Branch LEVOTHYROXI Yes [id number] 75ug TAKE 1 [facility] NE 75 mcg 6-16 TABLET BY ity o f tablet 00:00: MOUTH [place] EVERY Medical MORNING Branch ATORVASTATI Yes [id number] 80mg TAKE 1 [facility] N 80 mg 6-16 TABLET BY ity of tablet 00:00: MOUTH [place] DAILY Medical Branch LEVOTHYROXI 0 Yes [id number] 75ug TAKE 1 [facility] NE 75 mcg 6-16 TABLET BY ity o f tablet 00:00: MOUTH EVERY Medical MORNING Branch ATORVASTATI Yes [id number] 80mg TAKE 1 [facility] N 80 mg 6-16 TABLET BY ity of tablet 00:00: MOUTH DAILY Medical Branch LEVOTHYROXI Yes [id number] 75ug TAKE 1 [facility] NE 75 mcg 6-16 TABLET BY ity o f tablet 00:00: MOUTH [place] EVERY Medical MORNING Branch ATORVASTATI Yes [id number] 80mg TAKE 1 [facility] N 80 mg 6-16 TABLET BY ity of tablet 00:00: MOUTH DAILY Medical Branch LEVOTHYROXI Yes [id number] 75ug TAKE 1 [facility] NE 75 mcg 6-16 TABLET BY ity o f tablet 00:00: MOUTH EVERY Medical MORNING Branch ATORVASTATI Yes [id number] 80mg TAKE 1 [facility] N 80 mg 6-16 TABLET BY ity of tablet 00:00: MOUTH DAILY Medical Branch LEVOTHYROXI Yes [id number] 75ug TAKE 1 [facility] NE 75 mcg 6-16 TABLET BY ity o f tablet 00:00: MOUTH EVERY Medical MORNING Branch ATORVASTATI Yes [id number] 80mg TAKE 1 [facility] N 80 mg 6-16 TABLET BY ity of tablet 00:00: MOUTH DAILY Medical Branch LEVOTHYROXI Yes [id number] 75ug TAKE 1 [facility] NE 75 mcg 6-16 TABLET BY ity o f tablet 00:00: [facility] EVERY Medical MORNING Branch ATORVASTATI Yes [id number] 80mg TAKE 1 [facility] N 80 mg 6-16 TABLET BY ity of tablet 00:00: MOUTH DAILY Medical Branch LEVOTHYROXI 0 Yes [id number] 75ug TAKE 1 [facility] NE 75 mcg 6-16 TABLET BY ity o f tablet 00:00: MOUTH [place] EVERY Medical MORNING Branch ATORVASTATI Yes [id number] 80mg TAKE 1 [facility] N 80 mg 6-16 TABLET BY ity of tablet 00:00: MOUTH [place] DAILY Medical Branch LEVOTHYROXI Yes [id number] 75ug TAKE 1 [facility] NE 75 mcg 6-16 TABLET BY ity o f tablet 00:00: MOUTH EVERY Medical MORNING Branch ATORVASTATI 2022-0 Yes [id number] 80mg TAKE 1 [facility] N 80 mg 6-16 TABLET BY ity of tablet 00:00: MOUTH DAILY [facility] Branch LEVOTHYROXI 2022-0 Yes [id number] 75ug TAKE 1 [facility] NE 75 mcg 6-16 TABLET BY ity o f tablet 00:00: MOUTH [place] EVERY Medical MORNING Branch ATORVASTATI 2022-0 Yes [id number] 80mg TAKE 1 [facility] N 80 mg 6-16 TABLET BY ity of tablet 00:00: MOUTH DAILY Medical Branch LEVOTHYROXI 2022-0 Yes [id number] 75ug TAKE 1 [facility] NE 75 mcg 6-16 TABLET BY ity o f tablet 00:00: [facility] EVERY Medical MORNING Branch ATORVASTATI 2022-0 Yes [id number] 80mg TAKE 1 [facility] N 80 mg 6-16 TABLET BY ity of tablet 00:00: [facility] DAILY Medical Branch LEVOTHYROXI 2022-0 Yes [id number] 75ug TAKE 1 [facility] NE 75 mcg 6-16 TABLET BY ity o f tablet 00:00: MOUTH EVERY Medical MORNING Branch ATORVASTATI 2022-0 Yes [id number] 80mg TAKE 1 [facility] N 80 mg 6-16 TABLET BY ity of tablet 00:00: [facility] DAILY Medical Branch LEVOTHYROXI 2022-0 Yes [id number] 75ug TAKE 1 [facility] NE 75 mcg 6-16 TABLET BY ity o f tablet 00:00: [facility] EVERY Medical MORNING Branch ATORVASTATI 2022-0 Yes [id number] 80mg TAKE 1 [facility] N 80 mg 6-16 TABLET BY ity of tablet 00:00: [facility] DAILY Medical Branch LEVOTHYROXI 2022-0 Yes [id number] 75ug TAKE 1 [facility] NE 75 mcg 6-16 TABLET BY ity o f tablet 00:00: [facility] EVERY Medical MORNING Branch ATORVASTATI 2022-0 Yes [id number] 80mg TAKE 1 [facility] N 80 mg 6-16 TABLET BY ity of tablet 00:00: [facility] DAILY Medical Branch LEVOTHYROXI 2022-0 Yes [id number] 75ug TAKE 1 [facility] NE 75 mcg 6-16 TABLET BY ity o f tablet 00:00: MOUTH EVERY Medical MORNING Branch ATORVASTATI 0 Yes [id number] 80mg TAKE 1 [facility] N 80 mg 6-16 TABLET BY ity of tablet 00:00: MOUTH DAILY Medical Branch LEVOTHYROXI 2022-0 Yes [id number] 75ug TAKE 1 [facility] 75 mcg 6-16 TABLET BY ity o f tablet 00:00: MOUTH EVERY Medical MORNING Branch ATORVASTATI 0 Yes [id number] 80mg TAKE 1 [facility] N 80 mg 6-16 TABLET BY ity of tablet 00:00: MOUTH DAILY Medical Branch LEVOTHYROXI 0 Yes [id number] 75ug TAKE 1 [facility] 75 mcg 6-16 TABLET BY ity o f tablet 00:00: [facility] EVERY Medical MORNING Branch ATORVASTATI 0 Yes [id number] 80mg TAKE 1 [facility] N 80 mg 6-16 TABLET BY ity of tablet 00:00: DAILY Medical Branch LEVOTHYROXI 2022-0 Yes [id number] 75ug TAKE 1 [facility] 75 mcg 6-16 TABLET BY ity o f tablet 00:00: MOUTH EVERY Medical MORNING Branch ATORVASTATI 0 Yes [id number] 80mg TAKE 1 [facility] N 80 mg 6-16 TABLET BY ity of tablet 00:00: MOUTH DAILY Medical Branch LEVOTHYROXI 2022-0 Yes [id number] 75ug TAKE 1 [facility] 75 mcg 6-16 TABLET BY ity o f tablet 00:00: [facility] EVERY Medical MORNING Branch ATORVASTATI 0 Yes [id number] 80mg TAKE 1 [facility] N 80 mg 6-16 TABLET BY ity of tablet 00:00: MOUTH DAILY Medical Branch LEVOTHYROXI 2022-0 Yes [id number] 75ug TAKE 1 [facility] 75 mcg 6-16 TABLET BY ity o f tablet 00:00: [facility] EVERY Medical MORNING Branch ATORVASTATI 2022-0 Yes [id number] 80mg TAKE 1 [facility] N 80 mg 6-16 TABLET BY ity of tablet 00:00: [facility] DAILY Medical Branch LEVOTHYROXI 2022-0 Yes [id number] 75ug TAKE 1 [facility] 75 mcg 6-16 TABLET BY ity o f tablet 00:00: [facility] [place] 00 EVERY Medical MORNING Branch ATORVASTATI 2022-0 Yes [id number] 80mg TAKE 1 [facility] N 80 mg 6-16 TABLET BY ity of tablet 00:00: MOUTH [place] 00 DAILY Medical Branch LEVOTHYROXI 2022-0 Yes [id number] 75ug TAKE 1 [facility] NE 75 mcg 6-16 TABLET BY ity o f tablet 00:00: MOUTH EVERY Medical MORNING Branch ATORVASTATI 0 Yes [id number] 80mg TAKE 1 [facility] N 80 mg 6-16 TABLET BY ity of tablet 00:00: MOUTH DAILY Medical Branch LEVOTHYROXI 2022-0 Yes [id number] 75ug TAKE 1 [facility] 75 mcg 6-16 TABLET BY ity o f tablet 00:00: MOUTH [place] EVERY Medical MORNING Branch ATORVASTATI 0 Yes [id number] 80mg TAKE 1 [facility] N 80 mg 6-16 TABLET BY ity of tablet 00:00: MOUTH DAILY Medical Branch LEVOTHYROXI 2022-0 Yes [id number] 75ug TAKE 1 [facility] 75 mcg 6-16 TABLET BY ity o f tablet 00:00: MOUTH EVERY Medical MORNING Branch ATORVASTATI 0 Yes [id number] 80mg TAKE 1 [facility] N 80 mg 6-16 TABLET BY ity of tablet 00:00: MOUTH DAILY Medical Branch LEVOTHYROXI 2022-0 Yes [id number] 75ug TAKE 1 [facility] 75 mcg 6-16 TABLET BY ity o f tablet 00:00: MOUTH EVERY Medical MORNING Branch ATORVASTATI 2022-0 Yes [id number] 80mg TAKE 1 [facility] N 80 mg 6-16 TABLET BY ity of tablet 00:00: MOUTH DAILY Medical Branch LEVOTHYROXI 2022-0 Yes [id number] 75ug TAKE 1 [facility] 75 mcg 6-16 TABLET BY ity o f tablet 00:00: MOUTH [place] EVERY Medical MORNING Branch ATORVASTATI 2022-0 Yes [id number] 80mg TAKE 1 [facility] N 80 mg 6-16 TABLET BY ity of tablet 00:00: MOUTH DAILY Medical Branch LEVOTHYROXI 2022-0 Yes [id number] 75ug TAKE 1 [facility] 75 mcg 6-16 TABLET BY ity o f tablet 00:00: MOUTH [place] EVERY Medical MORNING Branch ATORVASTATI 2022-0 Yes [id number] 80mg TAKE 1 [facility] N 80 mg 6-16 TABLET BY ity of tablet 00:00: MOUTH [place] 00 DAILY Medical Branch LEVOTHYROXI 2022-0 Yes [id number] 75ug TAKE 1 [facility] 75 mcg 6-16 TABLET BY ity o f tablet 00:00: MOUTH [place] EVERY Medical MORNING Branch ATORVASTATI 2022-0 Yes [id number] 80mg TAKE 1 [facility] N 80 mg 6-16 TABLET BY ity of tablet 00:00: MOUTH [place] 00 DAILY Medical Branch LEVOTHYROXI 2022-0 Yes [id number] 75ug TAKE 1 [facility] 75 mcg 6-16 TABLET BY ity o f tablet 00:00: MOUTH [place] 00 EVERY Medical MORNING Branch azelastine 2022-0 Yes [id number] 1{spray Use 1 [facility] 137 mcg 5-31 } [place] in ity of (0.1 %) 00:00: each [place] nasal spray 00 nostril in [facility] morning and 1 [place] in the evening. Use in each nostril as directed montelukast 0 Yes [id number] 10mg Take 1 [facility] 10 mg 5-31 tablet by ity of tablet 00:00: mouth at [place] [address] bedtime. Medical Branch azelastine 2022-0 Yes [id number] 1{spray Use 1 [facility] 137 mcg 5-31 } [place] in ity of (0.1 %) 00:00: each [place] nasal spray 00 nostril in [facility] morning and 1 [place] in the evening. Use in each nostril as directed montelukast 2022-0 Yes [id number] 10mg Take 1 [facility] 10 mg 5-31 tablet by ity of tablet 00:00: mouth at [place] 00 bedtime. [facility] Branch azelastine 2022-0 Yes [id number] 1{spray Use 1 [facility] 137 mcg 5-31 } [place] in ity of (0.1 %) 00:00: each [place] nasal spray 00 nostril in [facility] morning and 1 [place] in the evening. Use in each nostril as directed montelukast 2022-0 Yes [id number] 10mg Take 1 [facility] 10 mg 5-31 tablet by ity of tablet 00:00: mouth at [place] [address] bedtime. Medical Branch azelastine 2022-0 Yes [id number] 1{spray Use 1 [facility] 137 mcg 5-31 } [place] in ity of (0.1 %) 00:00: each [place] nasal spray 00 nostril in [facility] the Branch morning and 1 [place] in the evening. Use in each nostril as directed montelukast 2023-0 Yes [id number] 10mg Take 1 [facility] 10 mg 5-31 tablet by ity of tablet 00:00: mouth at [place] 00 bedtime. Medical Branch azelastine 2023-0 Yes [id number] 1{spray Use 1 [facility] 137 mcg 5-31 } [place] in ity of (0.1 %) 00:00: each [place] nasal spray 00 nostril in [facility] the Branch morning and 1 [place] in the evening. Use in each nostril as directed azelastine 2023-0 Yes [id number] 1{spray Use 1 [facility] 137 mcg 5-31 } [place] in ity of (0.1 %) 00:00: each [place] nasal spray 00 nostril in [facility] the Branch morning and 1 [place] in the evening. Use in each nostril as directed azelastine 2023-0 Yes [id number] 1{spray Use 1 [facility] 137 mcg 5-31 } [place] in ity of (0.1 %) 00:00: each [place] nasal spray 00 nostril in [facility] the Branch morning and 1 [place] in the evening. Use in each nostril as directed azelastine 2023-0 Yes [id number] 1{spray Use 1 [facility] 137 mcg 5-31 } [place] in ity of (0.1 %) 00:00: each [place] nasal spray 00 nostril in [facility] morning and 1 [place] in the evening. Use in each nostril as directed azelastine 2023-0 Yes [id number] 1{spray Use 1 [facility] 137 mcg 5-31 } [place] in ity of (0.1 %) 00:00: each [place] nasal spray 00 nostril in [facility] the Branch morning and 1 [place] in the evening. Use in each nostril as directed azelastine 2023-0 Yes [id number] 1{spray Use 1 [facility] 137 mcg 5-31 } [place] in ity of (0.1 %) 00:00: each [place] nasal spray 00 nostril in [facility] morning and 1 [place] in the evening. Use in each nostril as directed azelastine 2023-0 Yes [id number] 1{spray Use 1 [facility] 137 mcg 5-31 } [place] in ity of (0.1 %) 00:00: each [place] nasal spray 00 nostril in [facility] morning and 1 [place] in the evening. Use in each nostril as directed azelastine 2023-0 Yes [id number] 1{spray Use 1 [facility] 137 mcg 5-31 } [place] in ity of (0.1 %) 00:00: each [place] nasal spray 00 nostril in [facility] the [facility] morning and 1 [place] in the evening. Use in each nostril as directed azelastine 2023-0 Yes [id number] 1{spray Use 1 [facility] 137 mcg 5-31 } [place] in ity of (0.1 %) 00:00: each [place] nasal spray 00 nostril in [facility] morning and 1 [place] in the evening. Use in each nostril as directed azelastine 2023-0 Yes [id number] 1{spray Use 1 [facility] 137 mcg 5-31 } [place] in ity of (0.1 %) 00:00: each [place] nasal spray 00 nostril in [facility] the Branch morning and 1 [place] in the evening. Use in each nostril as directed azelastine 2023-0 Yes [id number] 1{spray Use 1 [facility] 137 mcg 5-31 } [place] in ity of (0.1 %) 00:00: each [place] nasal spray 00 nostril in [facility] the Branch morning and 1 [place] in the evening. Use in each nostril as directed azelastine 2023-0 Yes [id number] 1{spray Use 1 [facility] 137 mcg 5-31 } [place] in ity of (0.1 %) 00:00: each [place] nasal spray 00 nostril in [facility] the [facility] morning and 1 [place] in the evening. Use in each nostril as directed azelastine 2023-0 Yes [id number] 1{spray Use 1 [facility] 137 mcg 5-31 } [place] in ity of (0.1 %) 00:00: each [place] nasal spray 00 nostril in [facility] the Branch morning and 1 [place] in the evening. Use in each nostril as directed azelastine 2023-0 Yes [id number] 1{spray Use 1 [facility] 137 mcg 5-31 } [place] in ity of (0.1 %) 00:00: each [place] nasal spray 00 nostril in [facility] the Branch morning and 1 [place] in the evening. Use in each nostril as directed azelastine 2023-0 Yes [id number] 1{spray Use 1 [facility] 137 mcg 5-31 } [place] in ity of (0.1 %) 00:00: each [place] nasal spray 00 nostril in [facility] the Branch morning and 1 [place] in the evening. Use in each nostril as directed azelastine 2023-0 Yes [id number] 1{spray Use 1 [facility] 137 mcg 5-31 } [place] in ity of (0.1 %) 00:00: each [place] nasal spray 00 nostril in [facility] the [facility] morning and 1 [place] in the evening. Use in each nostril as directed azelastine 2023-0 Yes [id number] 1{spray Use 1 [facility] 137 mcg 5-31 } [place] in ity of (0.1 %) 00:00: each [place] nasal spray 00 nostril in [facility] the [facility] morning and 1 [place] in the evening. Use in each nostril as directed azelastine 2023-0 Yes [id number] 1{spray Use 1 [facility] 137 mcg 5-31 } [place] in ity of (0.1 %) 00:00: each [place] nasal spray 00 nostril in [facility] the [facility] morning and 1 [place] in the evening. Use in each nostril as directed azelastine 2023-0 Yes [id number] 1{spray Use 1 [facility] 137 mcg 5-31 } [place] in ity of (0.1 %) 00:00: each [place] nasal spray 00 nostril in [facility] the Branch morning and 1 [place] in the evening. Use in each nostril as directed azelastine 2023-0 Yes [id number] 1{spray Use 1 [facility] 137 mcg 5-31 } [place] in ity of (0.1 %) 00:00: each [place] nasal spray 00 nostril in [facility] the Branch morning and 1 [place] in the evening. Use in each nostril as directed azelastine 2023-0 Yes [id number] 1{spray Use 1 [facility] 137 mcg 5-31 } [place] in ity of (0.1 %) 00:00: each [place] nasal spray 00 nostril in [facility] the [facility] morning and 1 [place] in the evening. Use in each nostril as directed azelastine 2023-0 Yes [id number] 1{spray Use 1 [facility] 137 mcg 5-31 } [place] in ity of (0.1 %) 00:00: each [place] nasal spray 00 nostril in [facility] the [facility] morning and 1 [place] in the evening. Use in each nostril as directed azelastine 2023-0 Yes [id number] 1{spray Use 1 [facility] 137 mcg 5-31 } [place] in ity of (0.1 %) 00:00: each [place] nasal spray 00 nostril in [facility] the [facility] morning and 1 [place] in the evening. Use in each nostril as directed azelastine 2023-0 Yes [id number] 1{spray Use 1 [facility] 137 mcg 5-31 } [place] in ity of (0.1 %) 00:00: each [place] nasal spray 00 nostril in [facility] the [facility] morning and 1 [place] in the evening. Use in each nostril as directed azelastine 2023-0 Yes [id number] 1{spray Use 1 [facility] 137 mcg 5-31 } [place] in ity of (0.1 %) 00:00: each [place] nasal spray 00 nostril in [facility] the Branch morning and 1 [place] in the evening. Use in each nostril as directed azelastine 2023-0 Yes [id number] 1{spray Use 1 [facility] 137 mcg 5-31 } [place] in ity of (0.1 %) 00:00: each [place] nasal spray 00 nostril in [facility] the [facility] morning and 1 [place] in the evening. Use in each nostril as directed azelastine 2023-0 Yes [id number] 1{spray Use 1 [facility] 137 mcg 5-31 } [place] in ity of (0.1 %) 00:00: each [place] nasal spray 00 nostril in [facility] the [facility] morning and 1 [place] in the evening. Use in each nostril as directed azelastine 2023-0 Yes [id number] 1{spray Use 1 [facility] 137 mcg 5-31 } [place] in ity of (0.1 %) 00:00: each [place] nasal spray 00 nostril in [facility] the [facility] morning and 1 [place] in the evening. Use in each nostril as directed azelastine 2023-0 Yes [id number] 1{spray Use 1 [facility] 137 mcg 5-31 } [place] in ity of (0.1 %) 00:00: each [place] nasal spray 00 nostril in [facility] the [facility] morning and 1 [place] in the evening. Use in each nostril as directed azelastine 2023-0 Yes [id number] 1{spray Use 1 [facility] 137 mcg 5-31 } [place] in ity of (0.1 %) 00:00: each [place] nasal spray 00 nostril in [facility] the Branch morning and 1 [place] in the evening. Use in each nostril as directed azelastine 2023-0 Yes [id number] 1{spray Use 1 [facility] 137 mcg 5-31 } [place] in ity of (0.1 %) 00:00: each [place] nasal spray 00 nostril in [facility] the [facility] morning and 1 [place] in the evening. Use in each nostril as directed azelastine 2023-0 Yes [id number] 1{spray Use 1 [facility] 137 mcg 5-31 } [place] in ity of (0.1 %) 00:00: each [place] nasal spray 00 nostril in [facility] the [facility] morning and 1 [place] in the evening. Use in each nostril as directed azelastine 2023-0 Yes [id number] 1{spray Use 1 [facility] 137 mcg 5-31 } [place] in ity of (0.1 %) 00:00: each [place] nasal spray 00 nostril in [facility] the [facility] morning and 1 [place] in the evening. Use in each nostril as directed azelastine 2023-0 Yes [id number] 1{spray Use 1 [facility] 137 mcg 5-31 } [place] in ity of (0.1 %) 00:00: each [place] nasal spray 00 nostril in [facility] the [facility] morning and 1 [place] in the evening. Use in each nostril as directed azelastine 2023-0 Yes [id number] 1{spray Use 1 [facility] 137 mcg 5-31 } [place] in ity of (0.1 %) 00:00: each [place] nasal spray 00 nostril in [facility] the [place] morning and 1 [place] in the evening. Use in each nostril as directed azelastine 3-0 Yes [id number] 1{spray Use 1 [facility] 137 mcg 5-31 } [place] in ity of (0.1 %) 00:00: each [place] nasal spray 00 nostril in [facility] the [place] morning and 1 [place] in the evening. Use in each nostril as directed montelukast 3-0 Yes [id number] 10mg Take 1 [facility] 10 mg 5-31 tablet by ity of tablet 00:00: mouth at [place] 00 bedtime. [facility] Branch azelastine 2022-0 Yes [id number] 1{spray Use 1 [facility] 137 mcg 5-31 } [place] in ity of (0.1 %) 00:00: each [place] nasal spray 00 nostril in [facility] morning and 1 [place] in the evening. Use in each nostril as directed montelukast 2022-0 Yes [id number] 10mg Take 1 [facility] 10 mg 5-31 tablet by ity of tablet 00:00: mouth at [place] 00 bedtime. Medical Branch azelastine 2022-0 Yes [id number] 1{spray Use 1 [facility] 137 mcg 5-31 } [place] in ity of (0.1 %) 00:00: each [place] nasal spray 00 nostril in [facility] morning and 1 [place] in the evening. Use in each nostril as directed montelukast 3-0 Yes [id number] 10mg Take 1 [facility] 10 mg 5-31 tablet by ity of tablet 00:00: mouth at [place] 00 bedtime. Medical Branch azelastine 2023-0 Yes [id number] 1{spray Use 1 [facility] 137 mcg 5-31 } [place] in ity of (0.1 %) 00:00: each [place] nasal spray 00 nostril in [facility] the [place] morning and 1 [place] in the evening. Use in each nostril as directed montelukast 3-0 Yes [id number] 10mg Take 1 [facility] 10 mg 5-31 tablet by ity of tablet 00:00: mouth at [place] 00 bedtime. Medical Branch azelastine 2022-0 Yes [id number] 1{spray Use 1 [facility] 137 mcg 5-31 } [place] in ity of (0.1 %) 00:00: each [place] nasal spray 00 nostril in [facility] the [facility] morning and 1 [place] in the evening. Use in each nostril as directed montelukast 2022-0 Yes [id number] 10mg Take 1 [facility] 10 mg 5-31 tablet by ity of tablet 00:00: mouth at [place] 00 bedtime. [facility] Branch montelukast 2022-0 2022- No [id number] 10mg Take 1 [facility] 10 mg 5-31 06-26 tablet by ity of tablet 00:00: 00:00 mouth at [place] 00 :00 bedtime. [facility] Branch levocetiriz 2022-0 2022- No [id number] 5mg Take 1 [facility] ine 5 mg 5-31 05-31 tablet by ity o f tablet 00:00: 00:00 mouth [place] 00 :00 every Medical evening. [place] levocetiriz 2022-0 2022- No [id number] 5mg Take 1 [facility] in[facility] 5 mg 5-31 05-31 tablet by ity o f tablet 00:00: 00:00 mouth [place] 00 :00 every Medical evening. [place] levocetiriz 2022-0 2022- No [id number] 5mg Take 1 [facility] in[facility] 5 mg 5-31 05-31 tablet by ity o f tablet 00:00: 00:00 mouth [place] 00 :00 every Medical evening. [place] galantamine 3-0 Yes 8mg Take 1 [facility] ers 8 mg 24 hr 4-28 capsule by ity of capsule 00:00: mouth in [place] 00 the Medical morning. [place] galantamine 3-0 Yes 8mg Take 1 [facility] ers 8 mg 24 hr 4-28 capsule by ity of capsule 00:00: mouth in [place] 00 the Medical morning. [place] galantamine 2023-0 Yes 8mg Take 1 [facility] ers 8 mg 24 hr 4-28 capsule by ity of capsule 00:00: mouth in [place] 00 the Medical morning. [place] galantamine 2023-0 Yes 8mg Take 1 [facility] ers 8 mg 24 hr 4-28 capsule by ity of capsule 00:00: mouth in [place] 00 the Medical morning. [place] galantamine 3-0 Yes 8mg Take 1 [facility] ers 8 mg 24 hr 4-28 capsule by ity of capsule 00:00: mouth in [place] the morning. Branch galantamine 2023-0 Yes 8mg Take 1 [facility] ers 8 mg 24 hr 4-28 capsule by ity of capsule 00:00: mouth in [place] the morning. Branch galantamine 2023-0 Yes 8mg Take 1 [facility] ers 8 mg 24 hr 4-28 capsule by ity of capsule 00:00: mouth in [place] the morning. Branch galantamine 2023-0 Yes 8mg Take 1 [facility] ers 8 mg 24 hr 4-28 capsule by ity of capsule 00:00: mouth in [place] the morning. Branch galantamine 2023-0 Yes 8mg Take 1 [facility] 8 mg 24 hr 4-28 capsule by ity of capsule 00:00: mouth in [place] the morning. Branch galantamine 2023-0 Yes 8mg Take 1 [facility] ers 8 mg 24 hr 4-28 capsule by ity of capsule 00:00: mouth in [place] the morning. Branch galantamine 2023-0 Yes 8mg Take 1 [facility] ers 8 mg 24 hr 4-28 capsule by ity of capsule 00:00: mouth in [place] the morning. Branch galantamine 2023-0 Yes 8mg Take 1 [facility] ers 8 mg 24 hr 4-28 capsule by ity of capsule 00:00: mouth in [place] the morning. Branch galantamine 2023-0 Yes 8mg Take 1 [facility] ers 8 mg 24 hr 4-28 capsule by ity of capsule 00:00: mouth in [place] the morning. Branch galantamine 2023-0 Yes 8mg Take 1 [facility] ers 8 mg 24 hr 4-28 capsule by ity of capsule 00:00: mouth in [place] the morning. Branch galantamine 2023-0 Yes 8mg Take 1 [facility] ers 8 mg 24 hr 4-28 capsule by ity of capsule 00:00: mouth in [place] the morning. Branch galantamine 2023-0 Yes 8mg Take 1 [facility] ers 8 mg 24 hr 4-28 capsule by ity of capsule 00:00: mouth in [place] the Medical morning. Branch galantamine 2023-0 Yes 8mg Take 1 [facility] ers 8 mg 24 hr 4-28 capsule by ity of capsule 00:00: mouth in [place] the morning. Branch galantamine 2023-0 Yes 8mg Take 1 [facility] ers 8 mg 24 hr 4-28 capsule by ity of capsule 00:00: mouth in [place] the morning. Branch galantamine 2023-0 Yes 8mg Take 1 [facility] ers 8 mg 24 hr 4-28 capsule by ity of capsule 00:00: mouth in [place] the morning. Branch galantamine 2023-0 Yes 8mg Take 1 [facility] ers 8 mg 24 hr 4-28 capsule by ity of capsule 00:00: mouth in [place] the morning. Branch galantamine 2023-0 Yes 8mg Take 1 [facility] 8 mg 24 hr 4-28 capsule by ity of capsule 00:00: mouth in [place] the morning. Branch galantamine 2023-0 Yes 8mg Take 1 [facility] 8 mg 24 hr 4-28 capsule by ity of capsule 00:00: mouth in [place] the morning. Branch galantamine 2023-0 Yes 8mg Take 1 [facility] 8 mg 24 hr 4-28 capsule by ity of capsule 00:00: mouth in [place] the morning. Branch galantamine 2023-0 Yes 8mg Take 1 [facility] 8 mg 24 hr 4-28 capsule by ity of capsule 00:00: mouth in [place] the morning. Branch galantamine 2023-0 Yes 8mg Take 1 [facility] 8 mg 24 hr 4-28 capsule by ity of capsule 00:00: mouth in [place] the morning. Branch galantamine 2023-0 Yes 8mg Take 1 [facility] 8 mg 24 hr 4-28 capsule by ity of capsule 00:00: mouth in [place] the Medical morning. Branch galantamine 2023-0 Yes 8mg Take 1 [facility] 8 mg 24 hr 4-28 capsule by ity of capsule 00:00: mouth in [place] the Medical morning. Branch galantamine 2023-0 Yes 8mg Take 1 [facility] 8 mg 24 hr 4-28 capsule by ity of capsule 00:00: mouth in [place] the Medical morning. Branch galantamine 2023-0 Yes 8mg Take 1 [facility] 8 mg 24 hr 4-28 capsule by ity of capsule 00:00: mouth in [place] the Medical morning. Branch galantamine 2023-0 Yes 8mg Take 1 [facility] 8 mg 24 hr 4-28 capsule by ity of capsule 00:00: mouth in [place] the morning. Branch galantamine 2023-0 Yes 8mg Take 1 [facility] 8 mg 24 hr 4-28 capsule by ity of capsule 00:00: mouth in [place] the morning. Branch galantamine 2023-0 Yes 8mg Take 1 [facility] 8 mg 24 hr 4-28 capsule by ity of capsule 00:00: mouth in [place] the morning. Branch galantamine 2023-0 Yes 8mg Take 1 [facility] 8 mg 24 hr 4-28 capsule by ity of capsule 00:00: mouth in [place] the morning. Branch galantamine 2023-0 Yes 8mg Take 1 [facility] 8 mg 24 hr 4-28 capsule by ity of capsule 00:00: mouth in [place] the morning. Branch galantamine 2023-0 Yes 8mg Take 1 [facility] 8 mg 24 hr 4-28 capsule by ity of capsule 00:00: mouth in [place] the morning. Branch galantamine 2023-0 Yes 8mg Take 1 [facility] 8 mg 24 hr 4-28 capsule by ity of capsule 00:00: mouth in [place] the morning. Branch galantamine 2023-0 Yes 8mg Take 1 [facility] 8 mg 24 hr 4-28 capsule by ity of capsule 00:00: mouth in [place] the morning. Branch galantamine 2023-0 Yes 8mg Take 1 [facility] 8 mg 24 hr 4-28 capsule by ity of capsule 00:00: mouth in [place] the morning. Branch galantamine 2023-0 Yes 8mg Take 1 [facility] 8 mg 24 hr 4-28 capsule by ity of capsule 00:00: mouth in [place] the morning. Branch galantamine 2023-0 Yes 8mg Take 1 [facility] 8 mg 24 hr 4-28 capsule by ity of capsule 00:00: mouth in [place] the morning. Branch galantamine 2023-0 Yes 8mg Take 1 [facility] 8 mg 24 hr 4-28 capsule by ity of capsule 00:00: mouth in [place] the Medical morning. Branch galantamine 2023-0 Yes 8mg Take 1 [facility] 8 mg 24 hr 4-28 capsule by ity of capsule 00:00: mouth in [place] the morning. Branch galantamine 2023-0 Yes 8mg Take 1 [facility] 8 mg 24 hr 4-28 capsule by ity of capsule 00:00: mouth in [place] the morning. Branch galantamine 2023-0 Yes 8mg Take 1 [facility] 8 mg 24 hr 4-28 capsule by ity of capsule 00:00: mouth in [place] the morning. Branch galantamine 2023-0 Yes 8mg Take 1 [facility] 8 mg 24 hr 4-28 capsule by ity of capsule 00:00: mouth in [place] the morning. Branch galantamine 2023-0 Yes 8mg Take 1 [facility] 8 mg 24 hr 4-28 capsule by ity of capsule 00:00: mouth in [place] the morning. Branch mesalamine 2021- Yes [id number] 2.4g Take 2 U nivers 1.2 gram EC 0-31 tablets by it y of tablet 00:00: mouth in [place] the morning. Branch mesalamine 2021- Yes [id number] 2.4g Take 2 U nivers 1.2 gram EC 0-31 tablets by it y of tablet 00:00: mouth in [place] the morning. Branch mesalamine 2021- Yes [id number] 2.4g Take 2 U nivers 1.2 gram EC 0-31 tablets by it y of tablet 00:00: mouth in [place] the morning. Branch mesalamine 2021- Yes [id number] 2.4g Take 2 U nivers 1.2 gram EC 0-31 tablets by it y of tablet 00:00: mouth in [place] the morning. Branch mesalamine 2021- Yes [id number] 2.4g Take 2 U nivers 1.2 gram EC 0-31 tablets by it y of tablet 00:00: mouth in [place] the morning. Branch mesalamine 2021- Yes [id number] 2.4g Take 2 U nivers 1.2 gram EC 0-31 tablets by it y of tablet 00:00: mouth in [place] the Medical morning. Branch mesalamine 2021- Yes [id number] 2.4g Take 2 U nivers 1.2 gram EC 0-31 tablets by it y of tablet 00:00: mouth in [place] the Medical morning. Branch mesalamine 2021- Yes [id number] 2.4g Take 2 U nivers 1.2 gram EC 0-31 tablets by it y of tablet 00:00: mouth in [place] the Medical morning. Branch mesalamine 2021-06 Yes [id number] 2.4g Take 2 U nivers 1.2 gram EC 0-31 tablets by it y of tablet 00:00: mouth in [place] the Medical morning. Branch mesalamine 2021-06 Yes [id number] 2.4g Take 2 U nivers 1.2 gram EC 0-31 tablets by it y of tablet 00:00: mouth in [place] the Medical morning. Branch mesalamine 2021-06 Yes [id number] 2.4g Take 2 U nivers 1.2 gram EC 0-31 tablets by it y of tablet 00:00: mouth in [place] the Medical morning. Branch mesalamine 2021-06 Yes [id number] 2.4g Take 2 U nivers 1.2 gram EC 0-31 tablets by it y of tablet 00:00: mouth in [place] the Medical morning. Branch mesalamine 2021-06 Yes [id number] 2.4g Take 2 U nivers 1.2 gram EC 0-31 tablets by it y of tablet 00:00: mouth in [place] the Medical morning. Branch mesalamine 2021-06 Yes [id number] 2.4g Take 2 U nivers 1.2 gram EC 0-31 tablets by it y of tablet 00:00: mouth in [place] the Medical morning. Branch mesalamine 2021-06 Yes [id number] 2.4g Take 2 U nivers 1.2 gram EC 0-31 tablets by it y of tablet 00:00: mouth in [place] the Medical morning. Branch mesalamine 2021-06 Yes [id number] 2.4g Take 2 U nivers 1.2 gram EC 0-31 tablets by it y of tablet 00:00: mouth in [place] the Medical morning. Branch mesalamine 2021-06 Yes [id number] 2.4g Take 2 U nivers 1.2 gram EC 0-31 tablets by it y of tablet 00:00: mouth in [place] the Medical morning. Branch mesalamine 2021-06 Yes [id number] 2.4g Take 2 U nivers 1.2 gram EC 0-31 tablets by it y of tablet 00:00: mouth in [place] the Medical morning. Branch mesalamine 2021-06 Yes [id number] 2.4g Take 2 U nivers 1.2 gram EC 0-31 tablets by it y of tablet 00:00: mouth in [place] the Medical morning. Branch mesalamine 2021-06 Yes [id number] 2.4g Take 2 U nivers 1.2 gram EC 0-31 tablets by it y of tablet 00:00: mouth in [place] the Medical morning. Branch mesalamine 2021-06 Yes [id number] 2.4g Take 2 U nivers 1.2 gram EC 0-31 tablets by it y of tablet 00:00: mouth in [place] the Medical morning. Branch mesalamine 2021-06 Yes [id number] 2.4g Take 2 U nivers 1.2 gram EC 0-31 tablets by it y of tablet 00:00: mouth in [place] the Medical morning. Branch mesalamine 2021-06 Yes [id number] 2.4g Take 2 U nivers 1.2 gram EC 0-31 tablets by it y of tablet 00:00: mouth in [place] the Medical morning. Branch mesalamine 2021-06 Yes [id number] 2.4g Take 2 U nivers 1.2 gram EC 0-31 tablets by it y of tablet 00:00: mouth in [place] the Medical morning. Branch mesalamine 2021-06 Yes [id number] 2.4g Take 2 U nivers 1.2 gram EC 0-31 tablets by it y of tablet 00:00: mouth in [place] the Medical morning. Branch mesalamine 2021-06 Yes [id number] 2.4g Take 2 U nivers 1.2 gram EC 0-31 tablets by it y of tablet 00:00: mouth in [place] the Medical morning. Branch mesalamine 2021-06 Yes [id number] 2.4g Take 2 U nivers 1.2 gram EC 0-31 tablets by it y of tablet 00:00: mouth in [place] the Medical morning. Branch mesalamine 2021-06 Yes [id number] 2.4g Take 2 U nivers 1.2 gram EC 0-31 tablets by it y of tablet 00:00: mouth in [place] the Medical morning. Branch mesalamine 2021-063- No [id number] 2.4g Take 2 [facility] 1.2 gram EC 0-31 07-24 tablets by i ty of tablet 00:00: 00:00 mouth in [place] 00 :00 the Medical morning. [place] mesalamine 2021-06- No [id number] 2.4g Take 2 [facility] 1.2 gram EC 0-31 07-24 tablets by i ty of tablet 00:00: 00:00 mouth in [place] 00 :00 the Medical morning. [place] mesalamine 2021-06- No [id number] 2.4g Take 2 [facility] 1.2 gram EC 0-31 07-24 tablets by i ty of tablet 00:00: 00:00 mouth in [place] 00 :00 the Medical morning. Branch mesalamine 2021-06- No [id number] 2.4g Take 2 [facility] 1.2 gram EC 0-31 07-24 tablets by i ty of tablet 00:00: 00:00 mouth in [place] 00 :00 the Medical morning. [place] mesalamine 2021-06- No [id number] 2.4g Take 2 [facility] 1.2 gram EC 0-31 07-24 tablets by i ty of tablet 00:00: 00:00 mouth in [place] 00 :00 the Medical morning. [place] mesalamine 2021-06- No [id number] 2.4g Take 2 [facility] 1.2 gram EC 0-31 07-24 tablets by i ty of tablet 00:00: 00:00 mouth in [place] 00 :00 the Medical morning. Branch amLODIPine 2021-06 Yes [id number] 10mg Take 1 [facility] n[facility] 10 mg 0-28 tablet by ity of tablet 00:00: mouth in [place] 00 the Medical morning. Branch amLODIPine 2021-06 Yes [id number] 10mg Take 1 [facility] n[facility] 10 mg 0-28 tablet by ity of tablet 00:00: mouth in [place] 00 the Medical morning. Branch amLODIPine 2021-06 Yes [id number] 10mg Take 1 [facility] n[facility] 10 mg 0-28 tablet by ity of tablet 00:00: mouth in [place] 00 the Medical morning. Branch amLODIPine 2021-06 Yes [id number] 10mg Take 1 [facility] n[facility] 10 mg 0-28 tablet by ity of tablet 00:00: mouth in [place] 00 the Medical morning. Branch amLODIPine 2021-06 Yes [id number] 10mg Take 1 [facility] 10 mg 0-28 tablet by ity of tablet 00:00: mouth in [place] 00 the Medical morning. Branch amLODIPine 2021-06 Yes [id number] 10mg Take 1 [facility] n[facility] 10 mg 0-28 tablet by ity of tablet 00:00: mouth in [place] the Medical morning. Branch amLODIPine 2021-06 Yes [id number] 10mg Take 1 [facility] 10 mg 0-28 tablet by ity of tablet 00:00: mouth in [place] the Medical morning. Branch amLODIPine 2021-06 Yes [id number] 10mg Take 1 [facility] 10 mg 0-28 tablet by ity of tablet 00:00: mouth in [place] the Medical morning. Branch amLODIPine 2021-06 Yes [id number] 10mg Take 1 [facility] 10 mg 0-28 tablet by ity of tablet 00:00: mouth in [place] the Medical morning. Branch amLODIPine 2021-06 Yes [id number] 10mg Take 1 [facility] 10 mg 0-28 tablet by ity of tablet 00:00: mouth in [place] the Medical morning. Branch amLODIPine 2021-06 Yes [id number] 10mg Take 1 [facility] 10 mg 0-28 tablet by ity of tablet 00:00: mouth in [place] the Medical morning. Branch amLODIPine 2021-06 Yes [id number] 10mg Take 1 [facility] 10 mg 0-28 tablet by ity of tablet 00:00: mouth in [place] the Medical morning. Branch amLODIPine 2021-06 Yes [id number] 10mg Take 1 [facility] 10 mg 0-28 tablet by ity of tablet 00:00: mouth in [place] the Medical morning. Branch amLODIPine 2021-06 Yes [id number] 10mg Take 1 [facility] 10 mg 0-28 tablet by ity of tablet 00:00: mouth in [place] the Medical morning. Branch amLODIPine 2021- Yes [id number] 10mg Take 1 [facility] 10 mg 0-28 tablet by ity of tablet 00:00: mouth in [place] the Medical morning. Branch amLODIPine 2021- Yes [id number] 10mg Take 1 [facility] 10 mg 0-28 tablet by ity of tablet 00:00: mouth in [place] the Medical morning. Branch amLODIPine 2021- Yes [id number] 10mg Take 1 [facility] 10 mg 0-28 tablet by ity of tablet 00:00: mouth in [place] 00 the Medical morning. Branch amLODIPine 2021- Yes [id number] 10mg Take 1 [facility] 10 mg 0-28 tablet by [facility] tablet 00:00: mouth in [place] the Medical morning. Branch amLODIPine 2021-06 Yes [id number] 10mg Take 1 [facility] 10 mg 0-28 tablet by [facility] of tablet 00:00: mouth in [place] the Medical morning. Branch amLODIPine 2021-06 Yes [id number] 10mg Take 1 [facility] 10 mg 0-28 tablet by [facility] of tablet 00:00: mouth in [place] the Medical morning. Branch amLODIPine 2021-06 Yes [id number] 10mg Take 1 [facility] 10 mg 0-28 tablet by [facility] of tablet 00:00: mouth in [place] the Medical morning. Branch amLODIPine 2021-06 Yes [id number] 10mg Take 1 [facility] 10 mg 0-28 tablet by [facility] of tablet 00:00: mouth in [place] the Medical morning. Branch amLODIPine 2021-06 Yes [id number] 10mg Take 1 [facility] 10 mg 0-28 tablet by [facility] of tablet 00:00: mouth in [place] the Medical morning. Branch amLODIPine 2021-06 Yes [id number] 10mg Take 1 [facility] 10 mg 0-28 tablet by [facility] of tablet 00:00: mouth in [place] the Medical morning. Branch amLODIPine 2021-06 Yes [id number] 10mg Take 1 [facility] 10 mg 0-28 tablet by [facility] of tablet 00:00: mouth in [place] the Medical morning. Branch amLODIPine 2021-06 Yes [id number] 10mg Take 1 [facility] 10 mg 0-28 tablet by [facility] of tablet 00:00: mouth in [place] the Medical morning. Branch amLODIPine 2021-06 Yes [id number] 10mg Take 1 [facility] 10 mg 0-28 tablet by [facility] of tablet 00:00: mouth in [place] the Medical morning. Branch amLODIPine 2021-06 Yes [id number] 10mg Take 1 [facility] 10 mg 0-28 tablet by [facility] of tablet 00:00: mouth in [place] the Medical morning. Branch amLODIPine 2021-06 Yes [id number] 10mg Take 1 [facility] 10 mg 0-28 tablet by [facility] of tablet 00:00: mouth in [place] the Medical morning. Branch amLODIPine 2021- Yes [id number] 10mg Take 1 [facility] 10 mg 0-28 tablet by [facility] of tablet 00:00: mouth in [place] the Medical morning. Branch amLODIPine 2021- Yes [id number] 10mg Take 1 [facility] 10 mg 0-28 tablet by [facility] of tablet 00:00: mouth in [place] the Medical morning. Branch amLODIPine 2021- Yes [id number] 10mg Take 1 [facility] 10 mg 0-28 tablet by [facility] of tablet 00:00: mouth in [place] the Medical morning. Branch amLODIPine 2021- Yes [id number] 10mg Take 1 [facility] 10 mg 0-28 tablet by [facility] of tablet 00:00: mouth in [place] the Medical morning. Branch amLODIPine 2021- Yes [id number] 10mg Take 1 [facility] 10 mg 0-28 tablet by [facility] of tablet 00:00: mouth in [place] the Medical morning. Branch amLODIPine 2021- Yes [id number] 10mg Take 1 [facility] 10 mg 0-28 tablet by [facility] of tablet 00:00: mouth in [place] the Medical morning. Branch amLODIPine 2021- Yes [id number] 10mg Take 1 [facility] 10 mg 0-28 tablet by [facility] tablet 00:00: mouth in [place] the Medical morning. Branch amLODIPine 2021- Yes [id number] 10mg Take 1 [facility] 10 mg 0-28 tablet by [facility] of tablet 00:00: mouth in [place] the Medical morning. Branch amLODIPine 2021- Yes [id number] 10mg Take 1 [facility] 10 mg 0-28 tablet by [facility] of tablet 00:00: mouth in [place] the Medical morning. Branch amLODIPine 2021- Yes [id number] 10mg Take 1 [facility] 10 mg 0-28 tablet by [facility] of tablet 00:00: mouth in [place] the Medical morning. Branch amLODIPine 2021-1 Yes [id number] 10mg Take 1 [facility] 10 mg 0-28 tablet by [facility] of tablet 00:00: mouth in [place] the Medical morning. Branch amLODIPine 2021-1 Yes [id number] 10mg Take 1 [facility] 10 mg 0-28 tablet by [facility] of tablet 00:00: mouth in [place] the Medical morning. Branch amLODIPine 2021-1 Yes [id number] 10mg Take 1 [facility] 10 mg 0-28 tablet by [facility] of tablet 00:00: mouth in [place] the Medical morning. Branch amLODIPine 2021- Yes [id number] 10mg Take 1 [facility] 10 mg 0-28 tablet by [facility] tablet 00:00: mouth in [place] the Medical morning. Branch furosemide 2021-1 Yes [id number] 20mg Take 1 [facility] 20 mg 0-28 tablet by [facility] of tablet 00:00: mouth in [place] the Medical morning. Branch amLODIPine 2021-1 Yes [id number] 10mg Take 1 [facility] 10 mg 0-28 tablet by [facility] tablet 00:00: mouth in [place] the Medical morning. Branch furosemide 2021-1 Yes [id number] 20mg Take 1 [facility] 20 mg 0-28 tablet by [facility] of tablet 00:00: mouth in [place] the Medical morning. Branch amLODIPine 2021- Yes [id number] 10mg Take 1 [facility] 10 mg 0-28 tablet by [facility] of tablet 00:00: mouth in [place] the Medical morning. Branch furosemide 2021-1 Yes [id number] 20mg Take 1 [facility] 20 mg 0-28 tablet by [facility] of tablet 00:00: mouth in [place] the Medical morning. Branch amLODIPine 2021- Yes [id number] 10mg Take 1 [facility] 10 mg 0-28 tablet by [facility] of tablet 00:00: mouth in [place] the Medical morning. Branch furosemide 2021-1 Yes [id number] 20mg Take 1 [facility] 20 mg 0-28 tablet by [facility] of tablet 00:00: mouth in [place] the Medical morning. Branch amLODIPine 2021-1 Yes [id number] 10mg Take 1 [facility] 10 mg 0-28 tablet by [facility] tablet 00:00: mouth in [place] the Medical morning. Branch furosemide 2021-1 Yes [id number] 20mg Take 1 [facility] 20 mg 0-28 tablet by [facility] of tablet 00:00: mouth in [place] the Medical morning. Branch amLODIPine 2021-1 Yes [id number] 10mg Take 1 [facility] 10 mg 0-28 tablet by [facility] of tablet 00:00: mouth in [place] the Medical morning. Branch furosemide 2021-1 Yes [id number] 20mg Take 1 [facility] 20 mg 0-28 tablet by [facility] of tablet 00:00: mouth in [place] the Medical morning. Branch amLODIPine 2021-1 Yes [id number] 10mg Take 1 [facility] 10 mg 0-28 tablet by [facility] of tablet 00:00: mouth in [place] 00 the Medical morning. Branch furosemide 2021-06 Yes [id number] 20mg Take 1 [facility] 20 mg 0-28 tablet by [facility] of tablet 00:00: mouth in [place] 00 the Medical morning. Branch amLODIPine 2021-06 Yes [id number] 10mg Take 1 [facility] 10 mg 0-28 tablet by [facility] tablet 00:00: mouth in [place] the Medical morning. Branch furosemide 2021-06 Yes [id number] 20mg Take 1 [facility] 20 mg 0-28 tablet by [facility] of tablet 00:00: mouth in [place] 00 the Medical morning. Branch amLODIPine 2021-06 Yes [id number] 10mg Take 1 [facility] 10 mg 0-28 tablet by [facility] of tablet 00:00: mouth in [place] 00 the Medical morning. Branch furosemide 2021-06 Yes [id number] 20mg Take 1 [facility] 20 mg 0-28 tablet by [facility] of tablet 00:00: mouth in [place] the Medical morning. Branch amLODIPine 2021-06 Yes [id number] 10mg Take 1 [facility] 10 mg 0-28 tablet by [facility] of tablet 00:00: mouth in [place] the Medical morning. Branch amLODIPine 2021-06 Yes [id number] 10mg Take 1 [facility] 10 mg 0-28 tablet by [facility] of tablet 00:00: mouth in [place] 00 the Medical morning. Branch amLODIPine 2021-06 Yes [id number] 10mg Take 1 [facility] 10 mg 0-28 tablet by [facility] of tablet 00:00: mouth in [place] the Medical morning. Branch amLODIPine 2021-06 Yes [id number] 10mg Take 1 [facility] 10 mg 0-28 tablet by [facility] of tablet 00:00: mouth in [place] 00 the Medical morning. Branch amLODIPine 2021-06 Yes [id number] 10mg Take 1 [facility] 10 mg 0-28 tablet by [facility] of tablet 00:00: mouth in [place] 00 the Medical morning. Branch furosemide 2021-06- No [id number] 20mg Take 1 [facility] 20 mg 0-28 05-31 tablet by [facility] of tablet 00:00: 00:00 mouth in [place] 00 :00 the Medical morning. Branch furosemide 2021-2022- No [id number] 20mg Take 1 [facility] 20 mg 0-28 05-31 tablet by [facility] of tablet 00:00: 00:00 mouth in [place] 00 :00 the Medical morning. Branch furosemide 2021-3- No [id number] 20mg Take 1 [facility] 20 mg 0-28 05-31 tablet by [facility] of tablet 00:00: 00:00 mouth in [place] 00 :00 the Medical morning. Branch furosemide 2021-3- No [id number] 20mg Take 1 [facility] 20 mg 0-28 05-31 tablet by [facility] of tablet 00:00: 00:00 mouth in [place] 00 :00 the Medical morning. Branch furosemide 2021-2022- No [id number] 20mg Take 1 [facility] 20 mg 0-28 05-31 tablet by [facility] of tablet 00:00: 00:00 mouth in [place] 00 :00 the Medical morning. Branch amLODIPine 2-0 Yes [id number] 10mg Take 1 [facility] 10 mg 8-08 tablet by [facility] of tablet 00:00: mouth in [place] 00 the Medical morning. Branch amLODIPine 2-0 Yes [id number] 10mg Take 1 [facility] 10 mg 8-08 tablet by [facility] of tablet 00:00: mouth in [place] 00 the Medical morning. Branch amLODIPine 2022-0 Yes [id number] 10mg Take 1 [facility] 10 mg 8-08 tablet by [facility] of tablet 00:00: mouth in [place] 00 the Medical morning. Branch amLODIPine 2-0 Yes [id number] 10mg Take 1 [facility] 10 mg 8-08 tablet by [facility] of tablet 00:00: mouth in [place] 00 the Medical morning. Branch amLODIPine 2022-0 Yes [id number] 10mg Take 1 [facility] 10 mg 8-08 tablet by [facility] of tablet 00:00: mouth in [place] 00 the Medical morning. Branch amLODIPine 2022-0 Yes [id number] 10mg Take 1 [facility] 10 mg 8-08 tablet by [facility] of tablet 00:00: mouth in [place] 00 the Medical morning. Branch amLODIPine 2022-0 Yes [id number] 10mg Take 1 [facility] 10 mg 8-08 tablet by [facility] of tablet 00:00: mouth in [place] 00 the Medical morning. Branch amLODIPine 2022-0 Yes [id number] 10mg Take 1 [facility] 10 mg 8-08 tablet by [facility] of tablet 00:00: mouth in [place] 00 the Medical morning. Branch amLODIPine 2021-0 Yes [id number] 10mg Take 1 [facility] 10 mg 8-08 tablet by [facility] of tablet 00:00: mouth in [place] 00 the Medical morning. Branch amLODIPine 2021-0 Yes [id number] 10mg Take 1 [facility] 10 mg 8-08 tablet by [facility] of tablet 00:00: mouth in [place] 00 the Medical morning. Branch amLODIPine 2021-0 2- No [id number] 10mg Take 1 [facility] 10 mg 8-08 10-28 tablet by [facility] of tablet 00:00: 00:00 mouth in [place] 00 :00 the Medical morning. Branch amLODIPine 2021-0 2- No [id number] 10mg Take 1 [facility] 10 mg 8-08 10-28 tablet by [facility] of tablet 00:00: 00:00 mouth in [place] 00 :00 the Medical morning. [place] memantine 5 2021-0 Yes 5mg Take 5 mg [facility] mg tablet 8-01 by mouth ity of 15:13: daily. [address] memantine 5 2021-0 Yes 5mg Take 5 mg [facility] mg tablet 8-01 by mouth ity of 15:13: daily. [address] memantine 5 2021-0 Yes 5mg Take 5 mg [facility] mg tablet 8-01 by mouth ity of 15:13: daily. [address] memantine 5 2021-0 Yes 5mg Take 5 mg [facility] mg tablet 8-01 by mouth ity of 15:13: daily. [address] memantine 5 2021-0 Yes 5mg Take 5 mg [facility] mg tablet 8-01 by mouth ity of 15:13: daily. [address] memantine 5 2021-0 Yes 5mg Take 5 mg [facility] mg tablet 8-01 by mouth ity of 15:13: daily. [address] memantine 5 2021-0 Yes 5mg Take 5 mg [facility] mg tablet 8-01 by mouth ity of 15:13: daily. [address] memantine 5 2021-0 Yes 5mg Take 5 mg [facility] mg tablet 8-01 by mouth ity of 15:13: daily. [address] memantine 5 2021-0 Yes 5mg Take 5 mg [facility] mg tablet 8-01 by mouth ity of 15:13: daily. [address] memantine 5 2021-0 Yes 5mg Take 5 mg [facility] mg tablet 8-01 by mouth ity of 15:13: daily. [address] memantine 5 2021-0 Yes 5mg Take 5 mg [facility] mg tablet 8-01 by mouth ity of 15:13: daily. [address] memantine 5 2021-0 Yes 5mg Take 5 mg [facility] mg tablet 8-01 by mouth ity of 15:13: daily. [address] memantine 5 2021-0 Yes 5mg Take 5 mg [facility] mg tablet 8-01 by mouth ity of 15:13: daily. [address] memantine 5 2021-0 Yes 5mg Take 5 mg [facility] mg tablet 8-01 by mouth ity of 15:13: daily. [address] memantine 5 2021-0 Yes 5mg Take 5 mg [facility] mg tablet 8-01 by mouth ity of 15:13: daily. [address] memantine 5 2021-0 Yes 5mg Take 5 mg [facility] mg tablet 8-01 by mouth ity of 15:13: daily. [address] memantine 5 2021-0 Yes 5mg Take 5 mg [facility] mg tablet 8-01 by mouth ity of 15:13: daily. [address] memantine 5 2021-0 Yes 5mg Take 5 mg [facility] mg tablet 8-01 by mouth ity of 15:13: daily. [address] memantine 5 2021-0 Yes 5mg Take 5 mg [facility] mg tablet 8-01 by mouth ity of 15:13: daily. [address] memantine 5 2021-0 Yes 5mg Take 5 mg [facility] mg tablet 8-01 by mouth ity of 15:13: daily. [address] memantine 5 2021-0 Yes 5mg Take 5 mg [facility] mg tablet 8-01 by mouth ity of 15:13: daily. [address] memantine 5 2021-0 Yes 5mg Take 5 mg [facility] mg tablet 8-01 by mouth ity of 15:13: daily. [address] memantine 5 2021-0 Yes 5mg Take 5 mg [facility] mg tablet 8-01 by mouth ity of 15:13: daily. [address] memantine 5 2021-0 Yes 5mg Take 5 mg [facility] mg tablet 8-01 by mouth ity of 15:13: daily. [address] memantine 5 2021-0 Yes 5mg Take 5 mg [facility] mg tablet 8-01 by mouth ity of 15:13: daily. [address] memantine 5 2021-0 Yes 5mg Take 5 mg [facility] mg tablet 8-01 by mouth ity of 15:13: daily. [address] memantine 5 2021-0 Yes 5mg Take 5 mg [facility] mg tablet 8-01 by mouth ity of 15:13: daily. [address] memantine 5 2021-0 Yes 5mg Take 5 mg [facility] mg tablet 8-01 by mouth ity of 15:13: daily. [address] memantine 5 2021-0 Yes 5mg Take 5 mg [facility] mg tablet 8-01 by mouth ity of 15:13: daily. [address] memantine 5 2021-0 Yes 5mg Take 5 mg [facility] mg tablet 8-01 by mouth ity of 15:13: daily. [address] memantine 5 2021-0 Yes 5mg Take 5 mg [facility] mg tablet 8-01 by mouth ity of 15:13: daily. [address] memantine 5 2021-0 Yes 5mg Take 5 mg [facility] mg tablet 8-01 by mouth ity of 15:13: daily. [address] memantine 5 2021-0 Yes 5mg Take 5 mg [facility] mg tablet 8-01 by mouth ity of 15:13: daily. [address] memantine 5 2021-0 Yes 5mg Take 5 mg [facility] mg tablet 8-01 by mouth ity of 15:13: daily. [address] memantine 5 2021-0 Yes 5mg Take 5 mg [facility] mg tablet 8-01 by mouth ity of 15:13: daily. [address] memantine 5 2021-0 Yes 5mg Take 5 mg [facility] mg tablet 8-01 by mouth ity of 15:13: daily. [address] memantine 5 2021-0 Yes 5mg Take 5 mg [facility] mg tablet 8-01 by mouth ity of 15:13: daily. [address] memantine 5 2021-0 Yes 5mg Take 5 mg [facility] mg tablet 8-01 by mouth ity of 15:13: daily. [address] memantine 5 2021-0 Yes 5mg Take 5 mg [facility] mg tablet 8-01 by mouth ity of 15:13: daily. [address] memantine 5 2021-0 Yes 5mg Take 5 mg [facility] mg tablet 8-01 by mouth ity of 15:13: daily. [address] memantine 5 2021-0 Yes 5mg Take 5 mg [facility] mg tablet 8-01 by mouth ity of 15:13: daily. [address] memantine 5 2021-0 Yes 5mg Take 5 mg [facility] mg tablet 8-01 by mouth ity of 15:13: daily. [address] memantine 5 2021-0 Yes 5mg Take 5 mg [facility] mg tablet 8-01 by mouth ity of 15:13: daily. [address] memantine 5 2021-0 Yes 5mg Take 5 mg [facility] mg tablet 8-01 by mouth ity of 15:13: daily. [address] memantine 5 2021-0 Yes 5mg Take 5 mg [facility] mg tablet 8-01 by mouth ity of 15:13: daily. [address] memantine 5 2021-0 Yes 5mg Take 5 mg [facility] mg tablet 8-01 by mouth ity of 15:13: daily. [address] memantine 5 2021-0 Yes 5mg Take 5 mg [facility] mg tablet 8-01 by mouth ity of 15:13: daily. [address] memantine 5 2021-0 Yes 5mg Take 5 mg [facility] mg tablet 8-01 by mouth ity of 15:13: daily. [address] memantine 5 2021-0 Yes 5mg Take 5 mg [facility] mg tablet 8-01 by mouth ity of 15:13: daily. [address] memantine 5 2021-0 Yes 5mg Take 5 mg [facility] mg tablet 8-01 by mouth ity of 15:13: daily. [address] memantine 5 2021-0 Yes 5mg Take 5 mg [facility] mg tablet 8-01 by mouth ity of 15:13: daily. [address] memantine 5 2021-0 Yes 5mg Take 5 mg [facility] mg tablet 8-01 by mouth ity of 15:13: daily. [address] memantine 5 2021-0 Yes 5mg Take 5 mg [facility] mg tablet 8-01 by mouth ity of 15:13: daily. [address] memantine 5 2021-0 Yes 5mg Take 5 mg [facility] mg tablet 8-01 by mouth ity of 15:13: daily. [address] memantine 5 2021-0 Yes 5mg Take 5 mg [facility] mg tablet 8-01 by mouth ity of 15:13: daily. [address] memantine 5 2021-0 Yes 5mg Take 5 mg [facility] mg tablet 8-01 by mouth ity of 15:13: daily. [address] memantine 5 2021-0 Yes 5mg Take 5 mg [facility] mg tablet 8-01 by mouth ity of 15:13: daily. [address] memantine 5 2021-0 Yes 5mg Take 5 mg [facility] mg tablet 8-01 by mouth ity of 15:13: daily. [address] memantine 5 2021-0 Yes 5mg Take 5 mg [facility] mg tablet 8-01 by mouth ity of 15:13: daily. [address] memantine 5 2021-0 Yes 5mg Take 5 mg [facility] mg tablet 8-01 by mouth ity of 15:13: daily. [address] memantine 5 2021-0 Yes 5mg Take 5 mg [facility] mg tablet 8-01 by mouth ity of 15:13: daily. [address] memantine 5 2021-0 Yes 5mg Take 5 mg [facility] mg tablet 8-01 by mouth ity of 15:13: daily. [address] memantine 5 2021-0 Yes 5mg Take 5 mg [facility] mg tablet 8-01 by mouth ity of 15:13: daily. [address] memantine 5 2021-0 Yes 5mg Take 5 mg [facility] mg tablet 8-01 by mouth ity of 15:13: daily. [place] [facility] memantine 5 2021-0 Yes 5mg Take 5 mg [facility] mg tablet 8- by mouth ity of 15:13: daily. [place] [id number] [facility] memantine 5 2021-0 Yes 5mg Take 5 mg [facility] mg tablet 8- by mouth ity of 15:13: daily. [place] [address] [facility] memantine 5 2021-0 Yes 5mg Take 5 mg [facility] mg tablet 8 by mouth ity of 15:13: daily. [place] [address] [facility] Branch mesalamine 2021-0 Yes [id number] 2.4g Take 2 [facility] 1.2 gram EC 7-05 tablets by it y of tablet 00:00: mouth [place] 00 daily. Medical Branch mesalamine 2021-0 Yes [id number] 2.4g Take 2 [facility] 1.2 gram EC 7-05 tablets by it y of tablet 00:00: mouth [place] 00 daily. Medical Branch mesalamine 2021-0 Yes [id number] 2.4g Take 2 [facility] 1.2 gram EC 7-05 tablets by it y of tablet 00:00: mouth [place] 00 daily. Medical Branch mesalamine 2021-0 Yes [id number] 2.4g Take 2 [facility] 1.2 gram EC 7-05 tablets by it y of tablet 00:00: mouth [place] 00 daily. Medical Branch mesalamine 2021-0 Yes [id number] 2.4g Take 2 [facility] 1.2 gram EC 7-05 tablets by it y of tablet 00:00: mouth [place] 00 daily. Medical Branch mesalamine 2021-0 Yes [id number] 2.4g Take 2 [facility] 1.2 gram EC 7-05 tablets by it y of tablet 00:00: mouth [place] 00 daily. Medical Branch mesalamine 2021-0 Yes [id number] 2.4g Take 2 [facility] 1.2 gram EC 7-05 tablets by it y of tablet 00:00: mouth [place] 00 daily. Medical Branch mesalamine 2021-0 Yes [id number] 2.4g Take 2 [facility] 1.2 gram EC 7-05 tablets by it y of tablet 00:00: mouth [place] 00 daily. Medical Branch mesalamine 2021-0 Yes [id number] 2.4g Take 2 [facility] 1.2 gram EC 7-05 tablets by it y of tablet 00:00: mouth [place] 00 daily. Medical Branch mesalamine Yes [id number] 2.4g Take 2 [facility] 1.2 gram EC 7-05 tablets by it y of tablet 00:00: mouth [place] 00 daily. Medical Branch mesalamine Yes [id number] 2.4g Take 2 [facility] 1.2 gram EC 7-05 tablets by it y of tablet 00:00: mouth [place] 00 daily. Medical [facility] mesalamine 2021- No [id number] 2.4g Take 2 [facility] 1.2 gram EC 7-05 10-31 tablets by i ty of tablet 00:00: 00:00 mouth [place] 00 :00 daily. Medical [facility] mesalamine 2021- No [id number] 2.4g Take 2 [facility] 1.2 gram EC 7-05 10-31 tablets by i ty of tablet 00:00: 00:00 mouth [place] 00 :00 daily. [facility] Branch valsartan Yes [id number] 320mg Take 1 [facility] 320 mg 6-13 tablet by [facility]y of tablet 00:00: mouth [place] 00 daily. Medical Branch levothyroxi Yes [id number] 75ug Take 1 [facility] ne 75 mcg 6-13 tablet by ity o f tablet 00:00: mouth [place] 00 every Medical morning. Branch famotidine Yes [id number] 20mg Take 1 [facility] 20 mg 6-13 tablet by ity of tablet 00:00: mouth [place] 00 daily. Medical Branch DULoxetine Yes [id number] 30mg Take 1 [facility] 30 mg 6-13 capsule by ity of capsule 00:00: mouth [place] 00 daily. Medical Branch atorvastati Yes [id number] 80mg Take 1 [facility] n 80 mg 6-13 tablet by ity of tablet 00:00: mouth [place] 00 daily. Medical Branch apixaban Yes [id number] 2.5mg Take 1 [facility] (ELIQUIS) 6-13 tablet by ity o f 2.5 mg 00:00: mouth 2 [place] tablet 00 (two) Medical times Branch daily. Indication s: history of stroke valsartan Yes [id number] 320mg Take 1 [facility] 320 mg 6-13 tablet by ity of tablet 00:00: mouth [place] 00 daily. Medical Branch levothyroxi Yes [id number] 75ug Take 1 [facility] ne 75 mcg 6-13 tablet by ity o f tablet 00:00: mouth [place] 00 every Medical morning. Branch famotidine Yes [id number] 20mg Take 1 [facility] 20 mg 6-13 tablet by ity of tablet 00:00: mouth [place] 00 daily. Medical Branch DULoxetine Yes [id number] 30mg Take 1 [facility] 30 mg 6-13 capsule by ity of capsule 00:00: mouth [place] 00 daily. Medical Branch atorvastati Yes [id number] 80mg Take 1 [facility] n 80 mg 6-13 tablet by ity of tablet 00:00: mouth [place] 00 daily. Medical Branch apixaban Yes [id number] 2.5mg Take 1 [facility] (ELIQUIS) 6-13 tablet by ity o f 2.5 mg 00:00: mouth 2 [place] tablet 00 (two) Medical times [place] daily. Indication s: history of stroke valsartan Yes [id number] 320mg Take 1 [facility] 320 mg 6-13 tablet by ity of tablet 00:00: mouth [place] 00 daily. Medical Branch levothyroxi Yes [id number] 75ug Take 1 [facility] ne 75 mcg 6-13 tablet by ity o f tablet 00:00: mouth [place] 00 every Medical morning. Branch famotidine Yes [id number] 20mg Take 1 [facility] 20 mg 6-13 tablet by ity of tablet 00:00: mouth [place] 00 daily. Medical Branch DULoxetine Yes [id number] 30mg Take 1 [facility] 30 mg 6-13 capsule by ity of capsule 00:00: mouth [place] 00 daily. Medical Branch atorvastati Yes [id number] 80mg Take 1 [facility] n 80 mg 6-13 tablet by ity of tablet 00:00: mouth [place] 00 daily. Medical Branch apixaban Yes [id number] 2.5mg Take 1 [facility] (ELIQUIS) 6-13 tablet by ity o f 2.5 mg 00:00: mouth 2 [place] tablet 00 (two) Medical times Branch daily. Indication s: history of stroke valsartan Yes [id number] 320mg Take 1 [facility] 320 mg 6-13 tablet by ity of tablet 00:00: mouth [place] 00 daily. Medical Branch levothyroxi Yes [id number] 75ug Take 1 [facility] ne 75 mcg 6-13 tablet by ity o f tablet 00:00: mouth [place] 00 every Medical morning. Branch famotidine Yes [id number] 20mg Take 1 [facility] 20 mg 6-13 tablet by ity of tablet 00:00: mouth [place] 00 daily. Medical Branch DULoxetine Yes [id number] 30mg Take 1 [facility] 30 mg 6-13 capsule by ity of capsule 00:00: mouth [place] 00 daily. Medical Branch atorvastati Yes [id number] 80mg Take 1 [facility] n 80 mg 6-13 tablet by ity of tablet 00:00: mouth [place] 00 daily. Medical [facility] apixaban Yes [id number] 2.5mg Take 1 [facility] (ELIQUIS) 6-13 tablet by ity o f 2.5 mg 00:00: mouth 2 [place] tablet 00 (two) Medical times Branch daily. Indication s: history of stroke valsartan Yes [id number] 320mg Take 1 [facility] 320 mg 6-13 tablet by ity of tablet 00:00: mouth [place] 00 daily. [facility] famotidine Yes [id number] 20mg Take 1 [facility] 20 mg 6-13 tablet by ity of tablet 00:00: mouth [place] 00 daily. Medical [facility] DULoxetine Yes [id number] 30mg Take 1 [facility] 30 mg 6-13 capsule by ity of capsule 00:00: mouth [place] 00 daily. Medical [facility] apixaban Yes [id number] 2.5mg Take 1 [facility] (ELIQUIS) 6-13 tablet by ity o f 2.5 mg 00:00: mouth 2 [place] tablet 00 (two) Medical times Branch daily. Indication s: history of stroke valsartan Yes [id number] 320mg Take 1 [facility] 320 mg 6-13 tablet by ity of tablet 00:00: mouth [place] 00 daily. [facility] famotidine Yes [id number] 20mg Take 1 [facility] 20 mg 6-13 tablet by ity of tablet 00:00: mouth [place] 00 daily. [facility] DULoxetine Yes [id number] 30mg Take 1 [facility] 30 mg 6-13 capsule by ity of capsule 00:00: mouth [place] 00 daily. Medical Branch apixaban Yes [id number] 2.5mg Take 1 [facility] (ELIQUIS) 6-13 tablet by ity o f 2.5 mg 00:00: mouth 2 [place] tablet 00 (two) Medical times Branch daily. Indication s: history of stroke valsartan 0 Yes [id number] 320mg Take 1 [facility] 320 mg 6-13 tablet by ity of tablet 00:00: mouth [place] 00 daily. [facility] famotidine Yes [id number] 20mg Take 1 [facility] 20 mg 6-13 tablet by ity of tablet 00:00: mouth [place] 00 daily. [facility] DULoxetine Yes [id number] 30mg Take 1 [facility] 30 mg 6-13 capsule by ity of capsule 00:00: mouth [place] 00 daily. [facility] apixaban Yes [id number] 2.5mg Take 1 [facility] (ELIQUIS) 6-13 tablet by ity o f 2.5 mg 00:00: mouth 2 [place] tablet 00 (two) Medical times Branch daily. Indication s: history of stroke valsartan Yes [id number] 320mg Take 1 [facility] 320 mg 6-13 tablet by ity of tablet 00:00: mouth [place] 00 daily. [facility] famotidine Yes [id number] 20mg Take 1 [facility] 20 mg 6-13 tablet by ity of tablet 00:00: mouth [place] 00 daily. [facility] DULoxetine Yes [id number] 30mg Take 1 [facility] 30 mg 6-13 capsule by ity of capsule 00:00: mouth [place] 00 daily. [facility] Branch apixaban Yes [id number] 2.5mg Take 1 [facility] (ELIQUIS) 6-13 tablet by ity o f 2.5 mg 00:00: mouth 2 [place] tablet 00 (two) Medical times Branch daily. Indication s: history of stroke valsartan Yes [id number] 320mg Take 1 [facility] 320 mg 6-13 tablet by ity of tablet 00:00: mouth [place] 00 daily. Medical [facility] DULoxetine Yes [id number] 30mg Take 1 [facility] 30 mg 6-13 capsule by [facility] capsule 00:00: mouth [place] 00 daily. [facility] valsartan 0 Yes [id number] 320mg Take 1 [facility] 320 mg 6-13 tablet by [facility] tablet 00:00: mouth [place] 00 daily. [facility] valsartan 0 Yes [id number] 320mg Take 1 [facility] 320 mg 6-13 tablet by [facility] tablet 00:00: mouth [place] 00 daily. [facility] valsartan 0 Yes [id number] 320mg Take 1 [facility] 320 mg 6-13 tablet by [facility] tablet 00:00: mouth [place] 00 daily. [facility] valsartan 0 Yes [id number] 320mg Take 1 [facility] 320 mg 6-13 tablet by [facility] tablet 00:00: mouth [place] 00 daily. [facility] valsartan Yes [id number] 320mg Take 1 [facility] 320 mg 6-13 tablet by [facility] tablet 00:00: mouth [place] 00 daily. [facility] valsartan Yes [id number] 320mg Take 1 [facility] 320 mg 6-13 tablet by [facility] tablet 00:00: mouth [place] 00 daily. [facility] valsartan 0 Yes [id number] 320mg Take 1 [facility] 320 mg 6-13 tablet by [facility] tablet 00:00: mouth [place] 00 daily. [facility] potassium Yes [id number] 10meq Take 1 [facility] chloride 10 6-13 tablet by [facility] mEq CR 00:00: mouth [place] tablet 00 daily. [facility] levothyroxi 0 Yes [id number] 75ug Take 1 [facility] ne 75 mcg 6-13 tablet by [facility] o f tablet 00:00: mouth [place] 00 every Medical morning. [facility] furosemide 0 Yes [id number] 20mg Take 1 [facility] 20 mg 6-13 tablet by [facility] tablet 00:00: mouth [place] 00 daily. [facility] famotidine 0 Yes [id number] 20mg Take 1 [facility] 20 mg 6-13 tablet by [facility] tablet 00:00: mouth [place] 00 daily. [facility] DULoxetine 0 Yes [id number] 30mg Take 1 [facility] 30 mg 6-13 capsule by [facility] capsule 00:00: mouth [place] 00 daily. [facility] atorvastati Yes [id number] 80mg Take 1 [facility] n 80 mg 6-13 tablet by [facility] tablet 00:00: mouth [place] 00 daily. [facility] apixaban Yes [id number] 2.5mg Take 1 [facility] (ELIQUIS) 6-13 tablet by [facility] o f 2.5 mg 00:00: mouth 2 [place] tablet 00 (two) Medical times [facility] daily. Indication s: history of stroke valsartan Yes [id number] 320mg Take 1 [facility] 320 mg 6-13 tablet by [facility] tablet 00:00: mouth [place] 00 daily. [facility] potassium Yes [id number] 10meq Take 1 [facility] chloride 10 6-13 tablet by [facility] mEq CR 00:00: mouth [place] tablet 00 daily. [facility] levothyroxi Yes [id number] 75ug Take 1 [facility] ne 75 mcg 6-13 tablet by [facility] o f tablet 00:00: mouth [place] 00 every Medical morning. [facility] furosemide Yes [id number] 20mg Take 1 [facility] 20 mg 6-13 tablet by [facility] tablet 00:00: mouth [place] 00 daily. [facility] famotidine Yes [id number] 20mg Take 1 [facility] 20 mg 6-13 tablet by [facility] tablet 00:00: mouth [place] 00 daily. [facility] DULoxetine Yes [id number] 30mg Take 1 [facility] 30 mg 6-13 capsule by [facility] capsule 00:00: mouth [place] 00 daily. [facility] atorvastati Yes [id number] 80mg Take 1 [facility] n 80 mg 6-13 tablet by [facility] tablet 00:00: mouth [place] 00 daily. [facility] apixaban Yes [id number] 2.5mg Take 1 [facility] (ELIQUIS) 6-13 tablet by [facility] o f 2.5 mg 00:00: mouth 2 [place] tablet 00 (two) Medical times [facility] daily. Indication s: history of stroke valsartan Yes [id number] 320mg Take 1 [facility] 320 mg 6-13 tablet by [facility] tablet 00:00: mouth [place] 00 daily. [facility] potassium Yes [id number] 10meq Take 1 [facility] chloride 10 6-13 tablet by [facility] mEq CR 00:00: mouth [place] tablet 00 daily. [facility] levothyroxi Yes [id number] 75ug Take 1 [facility] ne 75 mcg 6-13 tablet by [facility] o f tablet 00:00: mouth [place] 00 every Medical morning. [facility] furosemide Yes [id number] 20mg Take 1 [facility] 20 mg 6-13 tablet by [facility] tablet 00:00: mouth [place] 00 daily. [facility] famotidine Yes [id number] 20mg Take 1 [facility] 20 mg 6-13 tablet by [facility] tablet 00:00: mouth [place] 00 daily. [facility] DULoxetine Yes [id number] 30mg Take 1 [facility] 30 mg 6-13 capsule by [facility] capsule 00:00: mouth [place] 00 daily. [facility] atorvastati Yes [id number] 80mg Take 1 [facility] n 80 mg 6-13 tablet by [facility] tablet 00:00: mouth [place] 00 daily. [facility] apixaban Yes [id number] 2.5mg Take 1 [facility] (ELIQUIS) 6-13 tablet by [facility] o f 2.5 mg 00:00: mouth 2 [place] tablet 00 (two) Medical times [facility] daily. Indication s: history of stroke valsartan Yes [id number] 320mg Take 1 [facility] 320 mg 6-13 tablet by [facility] tablet 00:00: mouth [place] 00 daily. [facility] potassium Yes [id number] 10meq Take 1 [facility] chloride 10 6-13 tablet by [facility] mEq CR 00:00: mouth [place] tablet 00 daily. [facility] levothyroxi Yes [id number] 75ug Take 1 [facility] ne 75 mcg 6-13 tablet by [facility] o f tablet 00:00: mouth [place] 00 every Medical morning. [facility] furosemide Yes [id number] 20mg Take 1 [facility] 20 mg 6-13 tablet by [facility] tablet 00:00: mouth [place] 00 daily. [facility] famotidine Yes [id number] 20mg Take 1 [facility] 20 mg 6-13 tablet by [facility] tablet 00:00: mouth [place] 00 daily. [facility] DULoxetine Yes [id number] 30mg Take 1 [facility] 30 mg 6-13 capsule by [facility] capsule 00:00: mouth [place] 00 daily. [facility] atorvastati Yes [id number] 80mg Take 1 [facility] n 80 mg 6-13 tablet by [facility] tablet 00:00: mouth [place] 00 daily. [facility] apixaban Yes [id number] 2.5mg Take 1 [facility] (ELIQUIS) 6-13 tablet by [facility] o f 2.5 mg 00:00: mouth 2 [place] tablet 00 (two) Medical times [facility] daily. Indication s: history of stroke valsartan Yes [id number] 320mg Take 1 [facility] 320 mg 6-13 tablet by [facility] tablet 00:00: mouth [place] 00 daily. [facility] potassium Yes [id number] 10meq Take 1 [facility] chloride 10 6-13 tablet by [facility] mEq CR 00:00: mouth [place] tablet 00 daily. [facility] levothyroxi Yes [id number] 75ug Take 1 [facility] ne 75 mcg 6-13 tablet by [facility] o f tablet 00:00: mouth [place] 00 every Medical morning. [facility] furosemide Yes [id number] 20mg Take 1 [facility] 20 mg 6-13 tablet by [facility] tablet 00:00: mouth [place] 00 daily. [facility] famotidine Yes [id number] 20mg Take 1 [facility] 20 mg 6-13 tablet by [facility] tablet 00:00: mouth [place] 00 daily. [facility] DULoxetine Yes [id number] 30mg Take 1 [facility] 30 mg 6-13 capsule by [facility] capsule 00:00: mouth [place] 00 daily. [facility] atorvastati Yes [id number] 80mg Take 1 [facility] n 80 mg 6-13 tablet by [facility] tablet 00:00: mouth [place] 00 daily. [facility] apixaban Yes 4874 2.5mg Take 1 [facility] (ELIQUIS) 6-13 tablet by [facility] o f 2.5 mg 00:00: mouth 2 [place] tablet 00 (two) Medical times [facility] daily. Indication s: history of stroke valsartan Yes [id number] 320mg Take 1 [facility] 320 mg 6-13 tablet by [facility] tablet 00:00: mouth [place] 00 daily. [facility] potassium Yes [id number] 10meq Take 1 [facility] chloride 10 6-13 tablet by [facility] mEq CR 00:00: mouth [place] tablet 00 daily. [facility] levothyroxi Yes [id number] 75ug Take 1 [facility] ne 75 mcg 6-13 tablet by [facility] o f tablet 00:00: mouth [place] 00 every Medical morning. [facility] furosemide Yes [id number] 20mg Take 1 [facility] 20 mg 6-13 tablet by [facility] tablet 00:00: mouth [place] 00 daily. [facility] famotidine Yes [id number] 20mg Take 1 [facility] 20 mg 6-13 tablet by [facility] tablet 00:00: mouth [place] 00 daily. [facility] DULoxetine Yes [id number] 30mg Take 1 [facility] 30 mg 6-13 capsule by [facility] capsule 00:00: mouth [place] 00 daily. [facility] atorvastati Yes [id number] 80mg Take 1 [facility] n 80 mg 6-13 tablet by [facility] tablet 00:00: mouth [place] 00 daily. [facility] apixaban Yes [id number] 2.5mg Take 1 [facility] (ELIQUIS) 6-13 tablet by [facility] o f 2.5 mg 00:00: mouth 2 [place] tablet 00 (two) Medical times [facility] daily. Indication s: history of stroke valsartan Yes [id number] 320mg Take 1 [facility] 320 mg 6-13 tablet by [facility] tablet 00:00: mouth [place] 00 daily. [facility] potassium Yes [id number] 10meq Take 1 [facility] chloride 10 6-13 tablet by [facility] mEq CR 00:00: mouth [place] tablet 00 daily. [facility] levothyroxi Yes [id number] 75ug Take 1 [facility] ne 75 mcg 6-13 tablet by [facility] o f tablet 00:00: mouth [place] 00 every Medical morning. [facility] furosemide Yes [id number] 20mg Take 1 [facility] 20 mg 6-13 tablet by [facility] tablet 00:00: mouth [place] 00 daily. [facility] famotidine Yes [id number] 20mg Take 1 [facility] 20 mg 6-13 tablet by [facility] tablet 00:00: mouth [place] 00 daily. [facility] DULoxetine Yes [id number] 30mg Take 1 [facility] 30 mg 6-13 capsule by [facility] capsule 00:00: mouth [place] 00 daily. [facility] atorvastati Yes [id number] 80mg Take 1 [facility] n 80 mg 6-13 tablet by [facility] tablet 00:00: mouth [place] 00 daily. [facility] apixaban Yes [id number] 2.5mg Take 1 [facility] (ELIQUIS) 6-13 tablet by [facility] o f 2.5 mg 00:00: mouth 2 [place] tablet 00 (two) Medical times [facility] daily. Indication s: history of stroke valsartan Yes [id number] 320mg Take 1 [facility] 320 mg 6-13 tablet by [facility] tablet 00:00: mouth [place] 00 daily. [facility] potassium Yes [id number] 10meq Take 1 [facility] chloride 10 6-13 tablet by [facility] mEq CR 00:00: mouth [place] tablet 00 daily. [facility] levothyroxi Yes [id number] 75ug Take 1 [facility] ne 75 mcg 6-13 tablet by [facility] o f tablet 00:00: mouth [place] 00 every Medical morning. [facility] furosemide Yes [id number] 20mg Take 1 [facility] 20 mg 6-13 tablet by [facility] tablet 00:00: mouth [place] 00 daily. [facility] famotidine Yes [id number] 20mg Take 1 [facility] 20 mg 6-13 tablet by [facility] tablet 00:00: mouth [place] 00 daily. [facility] DULoxetine Yes [id number] 30mg Take 1 [facility] 30 mg 6-13 capsule by [facility] capsule 00:00: mouth [place] 00 daily. [facility] atorvastati Yes [id number] 80mg Take 1 [facility] n 80 mg 6-13 tablet by [facility] tablet 00:00: mouth [place] 00 daily. [facility] apixaban Yes [id number] 2.5mg Take 1 [facility] (ELIQUIS) 6-13 tablet by [facility] o f 2.5 mg 00:00: mouth 2 [place] tablet 00 (two) Medical times [facility] daily. Indication s: history of stroke valsartan Yes [id number] 320mg Take 1 [facility] 320 mg 6-13 tablet by [facility] tablet 00:00: mouth [place] 00 daily. [facility] potassium Yes [id number] 10meq Take 1 [facility] chloride 10 6-13 tablet by [facility] mEq CR 00:00: mouth [place] tablet 00 daily. [facility] levothyroxi Yes [id number] 75ug Take 1 [facility] ne 75 mcg 6-13 tablet by [facility] o f tablet 00:00: mouth [place] 00 every Medical morning. [facility] furosemide 0 Yes [id number] 20mg Take 1 [facility] 20 mg 6-13 tablet by [facility] tablet 00:00: mouth [place] 00 daily. [facility] famotidine Yes [id number] 20mg Take 1 [facility] 20 mg 6-13 tablet by [facility] tablet 00:00: mouth [place] 00 daily. [facility] DULoxetine Yes [id number] 30mg Take 1 [facility] 30 mg 6-13 capsule by [facility] capsule 00:00: mouth [place] 00 daily. [facility] atorvastati Yes [id number] 80mg Take 1 [facility] n 80 mg 6-13 tablet by [facility] tablet 00:00: mouth [place] 00 daily. [facility] apixaban Yes 4874 2.5mg Take 1 [facility] (ELIQUIS) 6-13 tablet by [facility] o f 2.5 mg 00:00: mouth 2 [place] tablet 00 (two) Medical times [facility] daily. Indication s: history of stroke valsartan Yes [id number] 320mg Take 1 [facility] 320 mg 6-13 tablet by [facility] tablet 00:00: mouth [place] 00 daily. [facility] potassium Yes [id number] 10meq Take 1 [facility] chloride 10 6-13 tablet by [facility] of mEq CR 00:00: mouth [place] tablet 00 daily. [facility] levothyroxi Yes [id number] 75ug Take 1 [facility] ne 75 mcg 6-13 tablet by [facility] o f tablet 00:00: mouth [place] 00 every Medical morning. [facility] furosemide Yes [id number] 20mg Take 1 [facility] 20 mg 6-13 tablet by [facility] tablet 00:00: mouth [place] 00 daily. [facility] famotidine Yes [id number] 20mg Take 1 [facility] 20 mg 6-13 tablet by [facility] tablet 00:00: mouth [place] 00 daily. [facility] DULoxetine Yes [id number] 30mg Take 1 [facility] 30 mg 6-13 capsule by [facility] capsule 00:00: mouth [place] 00 daily. [facility] atorvastati Yes [id number] 80mg Take 1 [facility] n 80 mg 6-13 tablet by [facility] tablet 00:00: mouth [place] 00 daily. [facility] apixaban Yes [id number] 2.5mg Take 1 [facility] (ELIQUIS) 6-13 tablet by [facility] o f 2.5 mg 00:00: mouth 2 [place] tablet 00 (two) Medical times [facility] daily. Indication s: history of stroke valsartan Yes [id number] 320mg Take 1 [facility] 320 mg 6-13 tablet by [facility] tablet 00:00: mouth [place] 00 daily. [facility] potassium Yes [id number] 10meq Take 1 [facility] chloride 10 6-13 tablet by [facility] mEq CR 00:00: mouth [place] tablet 00 daily. [facility] levothyroxi Yes [id number] 75ug Take 1 [facility] ne 75 mcg 6-13 tablet by [facility] o f tablet 00:00: mouth [place] 00 every Medical morning. [facility] famotidine Yes [id number] 20mg Take 1 [facility] 20 mg 6-13 tablet by [facility] tablet 00:00: mouth [place] 00 daily. [facility] DULoxetine Yes [id number] 30mg Take 1 [facility] 30 mg 6-13 capsule by [facility] capsule 00:00: mouth [place] 00 daily. [facility] atorvastati Yes [id number] 80mg Take 1 [facility] n 80 mg 6-13 tablet by [facility] tablet 00:00: mouth [place] 00 daily. [facility] apixaban Yes 4874 2.5mg Take 1 [facility] (ELIQUIS) 6-13 tablet by [facility] o f 2.5 mg 00:00: mouth 2 [place] tablet 00 (two) Medical times [facility] daily. Indication s: history of stroke valsartan Yes [id number] 320mg Take 1 [facility] 320 mg 6-13 tablet by [facility] tablet 00:00: mouth [place] 00 daily. [facility] potassium Yes [id number] 10meq Take 1 [facility] chloride 10 6-13 tablet by [facility] of mEq CR 00:00: mouth [place] tablet 00 daily. [facility] levothyroxi Yes [id number] 75ug Take 1 [facility] ne 75 mcg 6-13 tablet by [facility] o f tablet 00:00: mouth [place] 00 every Medical morning. [facility] famotidine Yes [id number] 20mg Take 1 [facility] 20 mg 6-13 tablet by [facility] tablet 00:00: mouth [place] 00 daily. [facility] DULoxetine Yes [id number] 30mg Take 1 [facility] 30 mg 6-13 capsule by [facility] capsule 00:00: mouth [place] 00 daily. [facility] atorvastati Yes [id number] 80mg Take 1 [facility] n 80 mg 6-13 tablet by [facility] tablet 00:00: mouth [place] 00 daily. [facility] apixaban Yes 4874 2.5mg Take 1 [facility] (ELIQUIS) 6-13 tablet by [facility] o f 2.5 mg 00:00: mouth 2 [place] tablet 00 (two) Medical times [facility] daily. Indication s: history of stroke valsartan Yes [id number] 320mg Take 1 [facility] 320 mg 6-13 tablet by [facility] tablet 00:00: mouth [place] 00 daily. [facility] potassium Yes [id number] 10meq Take 1 [facility] chloride 10 6-13 tablet by [facility] mEq CR 00:00: mouth [place] tablet 00 daily. [facility] levothyroxi Yes [id number] 75ug Take 1 [facility] ne 75 mcg 6-13 tablet by [facility] o f tablet 00:00: mouth [place] 00 every Medical morning. [facility] famotidine Yes [id number] 20mg Take 1 [facility] 20 mg 6-13 tablet by [facility] tablet 00:00: mouth [place] 00 daily. [facility] DULoxetine Yes [id number] 30mg Take 1 [facility] 30 mg 6-13 capsule by [facility] capsule 00:00: mouth [place] 00 daily. [facility] atorvastati Yes [id number] 80mg Take 1 [facility] n 80 mg 6-13 tablet by [facility] tablet 00:00: mouth [place] 00 daily. [facility] apixaban Yes 4874 2.5mg Take 1 [facility] (ELIQUIS) 6-13 tablet by [facility] o f 2.5 mg 00:00: mouth 2 [place] tablet 00 (two) Medical times [facility] daily. Indication s: history of stroke valsartan Yes [id number] 320mg Take 1 [facility] 320 mg 6-13 tablet by [facility] tablet 00:00: mouth [place] 00 daily. [facility] potassium Yes [id number] 10meq Take 1 [facility] chloride 10 6-13 tablet by [facility] of mEq CR 00:00: mouth [place] tablet 00 daily. [facility] levothyroxi Yes [id number] 75ug Take 1 [facility] ne 75 mcg 6-13 tablet by [facility] o f tablet 00:00: mouth [place] 00 every Medical morning. [facility] famotidine Yes [id number] 20mg Take 1 [facility] 20 mg 6-13 tablet by [facility] tablet 00:00: mouth [place] 00 daily. [facility] DULoxetine Yes [id number] 30mg Take 1 [facility] 30 mg 6-13 capsule by [facility] capsule 00:00: mouth [place] 00 daily. [facility] atorvastati Yes [id number] 80mg Take 1 [facility] n 80 mg 6-13 tablet by [facility] of tablet 00:00: mouth [place] 00 daily. [facility] apixaban Yes 4874 2.5mg Take 1 [facility] (ELIQUIS) 6-13 tablet by [facility] o f 2.5 mg 00:00: mouth 2 [place] tablet 00 (two) Medical times [facility] daily. Indication s: history of stroke valsartan Yes [id number] 320mg Take 1 [facility] 320 mg 6-13 tablet by [facility] tablet 00:00: mouth [place] 00 daily. [facility] potassium Yes [id number] 10meq Take 1 [facility] chloride 10 6-13 tablet by [facility] of mEq CR 00:00: mouth [place] tablet 00 daily. [facility] levothyroxi Yes [id number] 75ug Take 1 [facility] ne 75 mcg 6-13 tablet by [facility] o f tablet 00:00: mouth [place] 00 every Medical morning. [facility] famotidine Yes [id number] 20mg Take 1 [facility] 20 mg 6-13 tablet by [facility] tablet 00:00: mouth [place] 00 daily. [facility] DULoxetine Yes [id number] 30mg Take 1 [facility] 30 mg 6-13 capsule by [facility] capsule 00:00: mouth [place] 00 daily. [facility] atorvastati Yes [id number] 80mg Take 1 [facility] n 80 mg 6-13 tablet by [facility] of tablet 00:00: mouth [place] 00 daily. [facility] apixaban Yes 4874 2.5mg Take 1 [facility] (ELIQUIS) 6-13 tablet by [facility] o f 2.5 mg 00:00: mouth 2 [place] tablet 00 (two) Medical times Branch daily. Indication s: history of stroke valsartan Yes [id number] 320mg Take 1 [facility] 320 mg 6-13 tablet by [facility] tablet 00:00: mouth [place] 00 daily. [facility] potassium Yes [id number] 10meq Take 1 [facility] chloride 10 6-13 tablet by [facility] of mEq CR 00:00: mouth [place] tablet 00 daily. [facility] levothyroxi Yes [id number] 75ug Take 1 [facility] ne 75 mcg 6-13 tablet by [facility] o f tablet 00:00: mouth [place] 00 every Medical morning. [facility] famotidine Yes [id number] 20mg Take 1 [facility] 20 mg 6-13 tablet by [facility] of tablet 00:00: mouth [place] 00 daily. [facility] DULoxetine Yes [id number] 30mg Take 1 [facility] 30 mg 6-13 capsule by [facility] capsule 00:00: mouth [place] 00 daily. [facility] atorvastati Yes [id number] 80mg Take 1 [facility] n 80 mg 6-13 tablet by [facility] of tablet 00:00: mouth [place] 00 daily. [facility] apixaban Yes 4874 2.5mg Take 1 [facility] (ELIQUIS) 6-13 tablet by [facility] o f 2.5 mg 00:00: mouth 2 [place] tablet 00 (two) Medical times [facility] daily. Indication s: history of stroke valsartan Yes [id number] 320mg Take 1 [facility] 320 mg 6-13 tablet by [facility] tablet 00:00: mouth [place] 00 daily. [facility] potassium Yes [id number] 10meq Take 1 [facility] chloride 10 6-13 tablet by [facility] of mEq CR 00:00: mouth [place] tablet 00 daily. [facility] levothyroxi Yes [id number] 75ug Take 1 [facility] ne 75 mcg 6-13 tablet by [facility] o f tablet 00:00: mouth [place] 00 every Medical morning. [facility] famotidine Yes [id number] 20mg Take 1 [facility] 20 mg 6-13 tablet by [facility] tablet 00:00: mouth [place] 00 daily. [facility] DULoxetine Yes [id number] 30mg Take 1 [facility] 30 mg 6-13 capsule by [facility] capsule 00:00: mouth [place] 00 daily. [facility] atorvastati Yes [id number] 80mg Take 1 [facility] n 80 mg 6-13 tablet by [facility] of tablet 00:00: mouth [place] 00 daily. [facility] apixaban Yes 4874 2.5mg Take 1 [facility] (ELIQUIS) 6-13 tablet by [facility] o f 2.5 mg 00:00: mouth 2 [place] tablet 00 (two) Medical times [facility] daily. Indication s: history of stroke valsartan Yes [id number] 320mg Take 1 [facility] 320 mg 6-13 tablet by [facility] tablet 00:00: mouth [place] 00 daily. [facility] potassium Yes [id number] 10meq Take 1 [facility] chloride 10 6-13 tablet by [facility] of mEq CR 00:00: mouth [place] tablet 00 daily. [facility] levothyroxi Yes [id number] 75ug Take 1 [facility] ne 75 mcg 6-13 tablet by [facility] o f tablet 00:00: mouth [place] 00 every Medical morning. [facility] famotidine Yes [id number] 20mg Take 1 [facility] 20 mg 6-13 tablet by [facility] of tablet 00:00: mouth [place] 00 daily. [facility] DULoxetine Yes [id number] 30mg Take 1 [facility] 30 mg 6-13 capsule by [facility] capsule 00:00: mouth [place] 00 daily. [facility] atorvastati Yes [id number] 80mg Take 1 [facility] n 80 mg 6-13 tablet by [facility] of tablet 00:00: mouth [place] 00 daily. [facility] apixaban Yes 4874 2.5mg Take 1 [facility] (ELIQUIS) 6-13 tablet by [facility] o f 2.5 mg 00:00: mouth 2 [place] tablet 00 (two) Medical times [facility] daily. Indication s: history of stroke valsartan Yes [id number] 320mg Take 1 [facility] 320 mg 6-13 tablet by [facility] tablet 00:00: mouth [place] 00 daily. [facility] potassium Yes [id number] 10meq Take 1 [facility] chloride 10 6-13 tablet by [facility] of mEq CR 00:00: mouth [place] tablet 00 daily. [facility] levothyroxi Yes [id number] 75ug Take 1 [facility] ne 75 mcg 6-13 tablet by [facility] o f tablet 00:00: mouth [place] 00 every Medical morning. [facility] famotidine Yes [id number] 20mg Take 1 [facility] 20 mg 6-13 tablet by [facility] of tablet 00:00: mouth [place] 00 daily. [facility] DULoxetine Yes [id number] 30mg Take 1 [facility] 30 mg 6-13 capsule by [facility] capsule 00:00: mouth [place] 00 daily. [facility] atorvastati Yes [id number] 80mg Take 1 [facility] n 80 mg 6-13 tablet by [facility] of tablet 00:00: mouth [place] 00 daily. [facility] apixaban Yes 4874 2.5mg Take 1 [facility] (ELIQUIS) 6-13 tablet by [facility] o f 2.5 mg 00:00: mouth 2 [place] tablet 00 (two) Medical times [facility] daily. Indication s: history of stroke valsartan Yes [id number] 320mg Take 1 [facility] 320 mg 6-13 tablet by [facility] tablet 00:00: mouth [place] 00 daily. [facility] potassium Yes [id number] 10meq Take 1 [facility] chloride 10 6-13 tablet by [facility] of mEq CR 00:00: mouth [place] tablet 00 daily. [facility] levothyroxi Yes [id number] 75ug Take 1 [facility] ne 75 mcg 6-13 tablet by [facility] o f tablet 00:00: mouth [place] 00 every Medical morning. [facility] famotidine Yes [id number] 20mg Take 1 [facility] 20 mg 6-13 tablet by [facility] of tablet 00:00: mouth [place] 00 daily. [facility] DULoxetine Yes [id number] 30mg Take 1 [facility] 30 mg 6-13 capsule by [facility] capsule 00:00: mouth [place] 00 daily. [facility] atorvastati Yes [id number] 80mg Take 1 [facility] n 80 mg 6-13 tablet by [facility] of tablet 00:00: mouth [place] 00 daily. [facility] apixaban Yes 4874 2.5mg Take 1 [facility] (ELIQUIS) 6-13 tablet by [facility] o f 2.5 mg 00:00: mouth 2 [place] tablet 00 (two) Medical times [facility] daily. Indication s: history of stroke valsartan Yes [id number] 320mg Take 1 [facility] 320 mg 6-13 tablet by [facility] tablet 00:00: mouth [place] 00 daily. [facility] levothyroxi Yes [id number] 75ug Take 1 [facility] ne 75 mcg 6-13 tablet by [facility] o f tablet 00:00: mouth [place] 00 every Medical morning. [facility] famotidine Yes [id number] 20mg Take 1 [facility] 20 mg 6-13 tablet by [facility] of tablet 00:00: mouth [place] 00 daily. [facility] DULoxetine Yes [id number] 30mg Take 1 [facility] 30 mg 6-13 capsule by [facility] of capsule 00:00: mouth [place] 00 daily. [facility] atorvastati Yes [id number] 80mg Take 1 [facility] n 80 mg 6-13 tablet by [facility] of tablet 00:00: mouth [place] 00 daily. [facility] apixaban Yes 4874 2.5mg Take 1 [facility] (ELIQUIS) 6-13 tablet by [facility] o f 2.5 mg 00:00: mouth 2 [place] tablet 00 (two) Medical times [facility] daily. Indication s: history of stroke valsartan Yes [id number] 320mg Take 1 [facility] 320 mg 6-13 tablet by [facility] of tablet 00:00: mouth [place] 00 daily. [facility] levothyroxi Yes [id number] 75ug Take 1 [facility] ne 75 mcg 6-13 tablet by [facility] o f tablet 00:00: mouth [place] 00 every Medical morning. [facility] famotidine Yes [id number] 20mg Take 1 [facility] 20 mg 6-13 tablet by [facility] of tablet 00:00: mouth [place] 00 daily. [facility] DULoxetine Yes [id number] 30mg Take 1 [facility] 30 mg 6-13 capsule by [facility] of capsule 00:00: mouth [place] 00 daily. [facility] atorvastati Yes [id number] 80mg Take 1 [facility] n 80 mg 6-13 tablet by [facility] of tablet 00:00: mouth [place] 00 daily. [facility] apixaban Yes 4874 2.5mg Take 1 [facility] (ELIQUIS) 6-13 tablet by [facility] o f 2.5 mg 00:00: mouth 2 [place] tablet 00 (two) Medical times [facility] daily. Indication s: history of stroke valsartan Yes [id number] 320mg Take 1 [facility] 320 mg 6-13 tablet by [facility] tablet 00:00: mouth [place] 00 daily. [facility] levothyroxi Yes [id number] 75ug Take 1 [facility] ne 75 mcg 6-13 tablet by [facility] o f tablet 00:00: mouth [place] 00 every Medical morning. [facility] famotidine Yes [id number] 20mg Take 1 [facility] 20 mg 6-13 tablet by [facility] of tablet 00:00: mouth [place] 00 daily. [facility] DULoxetine Yes [id number] 30mg Take 1 [facility] 30 mg 6-13 capsule by [facility] of capsule 00:00: mouth [place] 00 daily. [facility] atorvastati Yes [id number] 80mg Take 1 [facility] n 80 mg 6-13 tablet by [facility] of tablet 00:00: mouth [place] 00 daily. [facility] apixaban Yes [id number] 2.5mg Take 1 [facility] (ELIQUIS) 6-13 tablet by [facility] o f 2.5 mg 00:00: mouth 2 [place] tablet 00 (two) Medical times [facility] daily. Indication s: history of stroke valsartan Yes [id number] 320mg Take 1 [facility] 320 mg 6-13 tablet by [facility] of tablet 00:00: mouth [place] 00 daily. [facility] levothyroxi Yes [id number] 75ug Take 1 [facility] ne 75 mcg 6-13 tablet by [facility] o f tablet 00:00: mouth [place] 00 every Medical morning. [facility] famotidine Yes [id number] 20mg Take 1 [facility] 20 mg 6-13 tablet by ity of tablet 00:00: mouth [place] 00 daily. Medical Branch DULoxetine Yes [id number] 30mg Take 1 U nivers 30 mg 6-13 capsule by ity of capsule 00:00: mouth [place] 00 daily. Medical Branch atorvastati Yes [id number] 80mg Take 1 Univers n 80 mg 6-13 tablet by ity of tablet 00:00: mouth [place] 00 daily. Medical Branch apixaban Yes [id number] 2.5mg Take 1 Univer s (ELIQUIS) 6-13 tablet by ity o f 2.5 mg 00:00: mouth 2 [place] tablet 00 (two) Medical times [place] daily. Indication s: history of stroke valsartan Yes [id number] 320mg Take 1 Univers 320 mg 6-13 tablet by ity of tablet 00:00: mouth [place] 00 daily. Medical Branch levothyroxi Yes [id number] 75ug Take 1 Univers ne 75 mcg 6-13 tablet by ity o f tablet 00:00: mouth [place] 00 every Medical morning. Branch famotidine Yes [id number] 20mg Take 1 Univers 20 mg 6-13 tablet by ity of tablet 00:00: mouth [place] 00 daily. Medical [facility] DULoxetine Yes [id number] 30mg Take 1 U nivers 30 mg 6-13 capsule by ity of capsule 00:00: mouth [place] 00 daily. Medical Branch atorvastati Yes [id number] 80mg Take 1 Univers n 80 mg 6-13 tablet by ity of tablet 00:00: mouth [place] 00 daily. Medical Branch apixaban Yes [id number] 2.5mg Take 1 Univer s (ELIQUIS) 6-13 tablet by ity o f 2.5 mg 00:00: mouth 2 [place] tablet 00 (two) Medical times Branch daily. Indication s: history of stroke valsartan 3- No [id number] 320mg Take 1 [facility] 320 mg 6-13 07-24 tablet by ity of tablet 00:00: 00:00 mouth [place] 00 :00 daily. Medical Branch valsartan 2022- No [id number] 320mg Take 1 Univers 320 mg 12-0324 tablet by ity of tablet 00:00: 00:00 mouth [place] 00 :00 daily. Medical Branch valsartan 2022- No [id number] 320mg Take 1 Univers 320 mg 12-0324 tablet by ity of tablet 00:00: 00:00 mouth [place] 00 :00 daily. Medical Branch valsartan 2022- No [id number] 320mg Take 1 Univers 320 mg 12-0324 tablet by ity of tablet 00:00: 00:00 mouth [place] 00 :00 daily. Medical Branch valsartan 2022- No [id number] 320mg Take 1 Univers 320 mg 12-0324 tablet by ity of tablet 00:00: 00:00 mouth [place] 00 :00 daily. Medical Branch valsartan 2022- No [id number] 320mg Take 1 Univers 320 mg 12-0324 tablet by ity of tablet 00:00: 00:00 mouth [place] 00 :00 daily. Medical Branch DULoxetine 2022- No [id number] 30mg Take 1 Univers 30 mg 12-03 capsule by ity of capsule 00:00: 00:00 mouth [place] 00 :00 daily. Medical Branch famotidine 2022- No [id number] 20mg Take 1 Univers 20 mg 12-03 tablet by ity of tablet 00:00: 00:00 mouth [place] 00 :00 daily. Medical Branch apixaban 2022- No [id number] 2.5mg Take 1 Unive rs (ELIQUIS) 12-03 tablet by ity of 2.5 mg 00:00: 00:00 mouth 2 [place] tablet 00 :00 (two) Medical times Branch daily. Indication s: history of stroke levothyroxi 2022- No [id number] 75ug Take 1 Univers ne 75 mcg 12-03-16 tablet by ity of tablet 00:00: 00:00 mouth [place] 00 :00 every Medical morning. Branch atorvastati 2022- No [id number] 80mg Take 1 Univers n 80 mg 6-13 06-16 tablet by ity of tablet 00:00: 00:00 mouth [place] 00 :00 daily. Medical Branch potassium 2022- No [id number] 10meq Take 1 Univers chloride 10 6-13 05-31 tablet by it y of mEq CR 00:00: 00:00 mouth [place] tablet 00 :00 daily. [facility] Branch potassium 2021-2022- No [id number] 10meq Take 1 Univers chloride 10 6-13 05-31 tablet by it y of mEq CR 00:00: 00:00 mouth [place] tablet 00 :00 daily. [facility] Branch potassium 2022- No [id number] 10meq Take 1 Univers chloride 10 6-13 05-31 tablet by it y of mEq CR 00:00: 00:00 mouth [place] tablet 00 :00 daily. [facility] Branch potassium 2022- No [id number] 10meq Take 1 Univers chloride 10 6-13 05-31 tablet by it y of mEq CR 00:00: 00:00 mouth [place] tablet 00 :00 daily. [facility] Branch potassium 2022- No [id number] 10meq Take 1 Univers chloride 10 6-13 05-31 tablet by it y of mEq CR 00:00: 00:00 mouth [place] tablet 00 :00 daily. Medical Branch furosemide 2021- No [id number] 20mg Take 1 Univers 20 mg 6-13 10-28 tablet by ity of tablet 00:00: 00:00 mouth [place] 00 :00 daily. Medical Branch furosemide 2021- No [id number] 20mg Take 1 Univers 20 mg 6-13 10-28 tablet by ity of tablet 00:00: 00:00 mouth [place] 00 :00 daily. Medical Branch aspirin 81 Yes 81mg QD Take [address] [facility] EC 07-18 [facility] tablet 17:11: daily. [place] [id number] Center levothyroxi Yes 75ug Take [address] [facility] ne - mcg by [facility] (SYNTHROID, 17:11: mouth Medic al LEVOTHROID) 33 Every Center 75 MCG morning on tablet an empty stomach. multivitami Yes 1{tbl} QD Take [address] n per 07-18 tablet by [facility] tablet 17:11: mouth Medical 33 daily. [place] desloratadi Yes 5mg QD Take [address] ne 07-18 by mouth [facility] (CLARINEX) 17:11: daily. Medic al 5 mg tablet 33 Center polyethylen Yes 17g QD Take [address] e glycol 07-18 by mouth [facility] (GLYCOLAX) 17:11: daily. Medic al 17 gram 33 Center packet ondansetron Yes 4mg Take [address] (ZOFRAN-ODT 07-18 by mouth Luke [facility] ) 4 MG 17:11: every 8 Medical disintegrat 33 (eight) Cente r ing tablet hours as needed for Nausea. torsemide Yes 20mg Take [address] (DEMADEX) 07-18 by [facility] 20 MG 17:11: as needed. Medica l tablet 33 [place] cholecalcif Yes 2000U QD Take 2,[address] elan, 1-26 Units by [facility] vitamin D3, 17:11: mouth Medic al 2,000 unit 33 daily. [place] Tab calcium Yes 600mg QD Take 600 [facility] carbonate 1-26 mg by [facility] (OS-VALERIE) 17:11: mouth Medical 600 mg 33 daily. Center calcium (1,500 mg) Tab cyanocobala Yes 1000ug QD Take 1,[address] min 1-26 mcg by [facility] (VITAMIN 17:11: mouth Medical B-12) 1000 33 daily. [place] MCG tablet aspirin 81 Yes 81mg QD Take [address] MG EC 07-18 by mouth [facility] tablet 17:11: daily. Medical 33 Center levothyroxi Yes 75ug Take [address] [facility] ne 1-26 mcg by [facility] (SYNTHROID, 17:11: mouth Medic al LEVOTHROID) 33 Every Center 75 MCG morning on tablet an empty stomach. multivitami Yes 1{tbl} QD Take [address] n per 07-18 tablet by [facility] tablet 17:11: mouth Medical 33 daily. [place] desloratadi Yes 5mg QD Take [address] ne 07-18 by mouth [facility] (CLARINEX) 17:11: daily. Medic al 5 mg tablet 33 [place] polyethylen Yes 17g QD Take 17 g [...] Take [address] (DEMADEX) - by mouth [facility] 20 MG 17:11: as needed. Medica l tablet 33 [place] cholecalcif Yes 2000U QD Take 2,[address] elan, 1-26 Units by [facility] vitamin D3, 17:11: mouth Medic al 2,000 unit 33 daily. [place] Tab calcium Yes 600mg QD Take 600 [facility] carbonate 1-26 mg by [facility] (OS-VALERIE) 17:11: mouth Medical 600 mg 33 daily. [place] calcium (1,500 mg) Tab cyanocobala Yes 1000ug QD Take 1,[address] min 1-26 mcg by [facility] (VITAMIN 17:11: mouth Medical B-12) 1000 33 daily. [place] MCG tablet aspirin 81 Yes 81mg QD Take [address] MG EC 07-18 by mouth [facility] tablet 17:11: daily. Medical 33 [place] levothyroxi Yes 75ug Take [address] ne 1-26 mcg by [facility] (SYNTHROID, 17:11: mouth Medic al LEVOTHROID) 33 Every Center 75 MCG morning on tablet an empty stomach. multivitami Yes 1{tbl} QD Take [address] [facility] per - tablet by [facility] tablet 17:11: mouth Medical 33 daily. [place] desloratadi Yes 5mg QD Take [address] ne - by mouth [facility] (CLARINEX) 17:11: daily. Medic al 5 mg tablet 33 [place] polyethylen Yes 17g QD Take [address] e glycol - by mouth [facility] (GLYCOLAX) 17:11: daily. Medic al 17 gram 33 Center packet ondansetron Yes 4mg Take [address] (ZOFRAN-ODT -26 by mouth Luke [facility] ) 4 MG 17:11: every 8 Medical disintegrat 33 (eight) Cente r ing tablet hours as needed for Nausea. torsemide Yes 20mg Take [address] (DEMADEX) - by mouth [facility] 20 MG 17:11: as [...] B-12) 1000 33 daily. Center MCG tablet aspirin 81 Yes 81mg QD Take [address] MG EC - by mouth [facility] tablet 17:11: daily. Medical 33 [place] levothyroxi Yes 75ug Take [address] ne 1-26 mcg by [facility] (SYNTHROID, 17:11: mouth Medic al LEVOTHROID) 33 Every Center 75 MCG morning on tablet an empty stomach. multivitami Yes 1{tbl} QD Take [address] n per 07-18 tablet by [facility] tablet 17:11: mouth Medical 33 daily. Center desloratadi Yes 5mg QD Take [address] ne - by mouth [facility] (CLARINEX) 17:11: daily. Medic al 5 mg tablet 33 Center polyethylen Yes 17g QD Take [address] e glycol - by mouth [facility] (GLYCOLAX) 17:11: daily. Medic al 17 gram 33 Center packet ondansetron Yes 4mg Take [address] (ZOFRAN-ODT -26 by mouth Luke [facility] ) 4 MG 17:11: every 8 Medical disintegrat 33 (eight) Cente r ing tablet hours as needed for Nausea. torsemide Yes 20mg Take [address] (DEMADEX) 1-26 by mouth [facility] 20 MG 17:11: as needed. Medica l tablet 33 Center cholecalcif Yes 2000U QD Take 2,[address] elan, 1-[address] [facility] vitamin D3, 17:11: mouth Medic al 2,000 unit 33 daily. Center Tab calcium Yes 600mg QD Take 600 [facility] carbonate 1-[address] [facility] [facility] (OS-VALERIE) 17:11: mouth Medical 600 mg 33 daily. Center calcium (1,500 mg) Tab cyanocobala Yes 1000ug QD Take 1,[address] min 1-26 mcg by LuDEQ (VITAMIN 17:11: mouth Medical B-12) 1000 33 daily. Center MCG tablet clopidogreL 2020-06- No 75mg QD Take [address] [facility] (PLAVIX) 75 0-06 10-06 tablet (75 L [facility] mg tablet 00:00: 23:59 mg total) Me dical 00 :00 by mouth Center daily. DULoxetine 2020-06- No 30mg QD Take [address] (CYMBALTA) 0-06 10-06 capsule [facility] 30 MG 00:00: 23:59 (30 mg Medical capsule 00 :00 total) by Center mouth daily. clopidogreL 2020-06- No 75mg QD Take [address] (PLAVIX) 75 0-06 10-06 tablet (75 L [facility] mg tablet 00:00: 23:59 mg total) Me dical 00 :00 by mouth Center daily. DULoxetine 2020-06- No 30mg QD Take [address] (CYMBALTA) 0-06 10-06 capsule [facility] 30 MG 00:00: 23:59 (30 mg Medical capsule 00 :00 total) by Center mouth daily. clopidogreL 2020-06- No 75mg QD Take [address] (PLAVIX) 75 0-06 10-06 tablet (75 L [facility] mg tablet 00:00: 23:59 mg total) Me dical 00 :00 by mouth Center daily. DULoxetine 2020-06- No 30mg QD Take [address] (CYMBALTA) 0-06 10-06 capsule [facility] 30 MG 00:00: 23:59 (30 mg Medical capsule 00 :00 total) by Center mouth daily. clopidogreL 2020-06- No 75mg QD Take 1 [...] 00 :00 by mouth Center nightly. carvediloL 2020-06 No 25mg Q.5D Take [address] (COREG) 25 0-05 10-05 tablet (25 Richelle kes MG tablet 00:00: 23:59 mg total) Me dical 00 :00 by mouth 2 Center (two) times daily. atorvastati 2020-06- No 80mg QD Take [address] [facility] n (LIPITOR) 0-05 10-05 tablet (80 L u[facility] 80 MG 00:00: 23:59 mg total) Medica l tablet 00 :00 by mouth Center nightly. carvediloL 2020-06- No 25mg Q.5D Take [address] (COREG) 25 0-05 10-05 tablet (25 Rihcelle kes MG tablet 00:00: 23:59 mg total) Me dical 00 :00 by mouth 2 Center (two) times daily. atorvastati 2020-06- No 80mg QD Take [...] by mouth 2 Center (two) times daily. atorvastati 2020-06- No 80mg QD Take [address] n (LIPITOR) 0-05 10-05 tablet (80 L ukes 80 MG 00:00: 23:59 mg total) Medica l tablet 00 :00 by mouth Center nightly. carvediloL 2020-06 No 25mg Q.5D Take [address] (COREG) 25 0-05 10-05 tablet (25 Richelle kes MG tablet 00:00: 23:59 mg total) Me dical 00 :00 by mouth 2 Center (two) times daily. melatonin 2020-06 No 10mg QD Take [address] 10 mg Tab 0-05 -26 by [facility] 00:00: 00:00 nightly. Medical 00 :00 Center cyanocobala 2018- Yes 1000ug QD Take 1,000 Methodi min [...] 24 hr 25 daily. l capsule gabapentin 2018-0 Yes 100mg Q.5D Take 100 Me thodi (NEURONTIN) 9-[address] 100 mg 15:13: mouth 2 Hospita capsule 25 (two) l times a day. traMADol 0 Yes 50mg Q6H Take 50 mg Met hodi (ULTRAM) 50 9-[address] mg tablet 15:13: every 6 Hospi ta 25 (six) l hours as needed for moderate pain. pantoprazol 2018-0 Yes 40mg QD Take 40 mg Methodi e 9-[address] (PROTONIX) 15:13: daily. Hospi ta 40 MG EC 25 l tablet rivaroxaban Yes 15mg QD Take 15 mg Methodi (XARELTO) 9-[address] 15 mg 15:13: daily. Hospita tablet 25 l atorvastati 20190 Yes 80mg QD Take 80 mg Methodi n (LIPITOR) 9-[address] 80 MG 15:13: daily. Hospita tablet 25 l cyanocobala 20190 Yes 1000ug QD Take 1,000 Methodi min [...] 24 hr 25 daily. l capsule gabapentin 0 Yes 100mg Q.5D Take 100 Me thodi (NEURONTIN) 9-[address] 100 mg 15:13: mouth 2 Hospita capsule 25 (two) l times a day. traMADol Yes 50mg Q6H Take 50 mg Met hodi (ULTRAM) 50 9-[address] mg tablet 15:13: every 6 Hospi ta 25 (six) l hours as needed for moderate pain. pantoprazol 20190 Yes 40mg QD Take 40 mg Methodi e 9-[address] (PROTONIX) 15:13: daily. Hospi ta 40 MG EC 25 l tablet rivaroxaban Yes 15mg QD Take 15 mg Methodi (XARELTO) 9-[address] 15 mg 15:13: daily. Hospita tablet 25 l atorvastati 20190 Yes 80mg QD Take 80 mg Methodi n (LIPITOR) 9-[address] 80 MG 15:13: daily. Hospita tablet 25 l cyanocobala 2019-0 Yes 1000ug QD Take 1,000 Methodi min 9-[address] (VITAMIN 15:13: mouth Hospita B-12) 1000 25 daily. l MCG tablet vitamin E 20190 Yes 400U QD Take 400 Meth [facility] [...] 24 hr 25 daily. l capsule gabapentin 0 Yes 100mg Q.5D Take 100 Me thodi (NEURONTIN) 9-[address] 100 mg 15:13: mouth 2 Hospita capsule 25 (two) l times a day. traMADol 0 Yes 50mg Q6H Take 50 mg Met hodi (ULTRAM) 50 9-[address] mg tablet 15:13: every 6 Hospi ta 25 (six) l hours as needed for moderate pain. pantoprazol 20190 Yes 40mg QD Take 40 mg Methodi e 9-[address] (PROTONIX) 15:13: daily. Hospi ta 40 MG EC 25 l tablet rivaroxaban 20190 Yes 15mg QD Take 15 mg Methodi (XARELTO) 9-[address] 15 mg 15:13: daily. Hospita tablet 25 l atorvastati 20190 Yes 80mg QD Take 80 mg Methodi n (LIPITOR) 9-[address] 80 MG 15:13: daily. Hospita tablet 25 l cyanocobala 20190 Yes 1000ug QD Take 1,000 Methodi min 9-[address] (VITAMIN 15:13: mouth Hospita B-12) 1000 25 daily. l MCG tablet vitamin E 2019-0 Yes 400U QD Take 400 Meth [facility] 400 UNIT 9-[address] capsule 15:13: mouth Hospita 25 daily. l cholecalcif 2019-0 Yes 2000U QD Take 2,000 Methodi elan, 9-[address] vitamin D3, 15:13: mouth Hospi ta (VITAMIN 25 daily. l D3) 2,000 unit capsule capsule DULoxetine 20190 Yes 30mg QD Take 30 mg M ethodi (CYMBALTA) 9-[address] 30 MG 15:13: daily. Hospita capsule 25 l mesalamine 2019-0 Yes 375mg QD Take 375 Me thodi (APRISO) 9-[address] 0.375 gram 15:13: mouth Hospit a 24 hr 25 daily. l capsule gabapentin 2019-0 Yes 100mg Q.5D Take 100 Me thodi (NEURONTIN) 9-[address] 100 mg 15:13: mouth 2 Hospita capsule 25 (two) l times a day. traMADol 0 Yes 50mg Q6H Take 50 mg Met hodi (ULTRAM) 50 9-[address] mg tablet 15:13: every 6 Hospi ta 25 (six) l hours as needed for moderate pain. pantoprazol 2019-0 Yes 40mg QD Take 40 mg Methodi e 9-[address] (PROTONIX) 15:13: daily. Hospi ta 40 MG EC 25 l tablet rivaroxaban 0 Yes 15mg QD Take 15 mg Methodi (XARELTO) 9-[address] 15 mg 15:13: daily. Hospita tablet 25 l atorvastati 2019-0 Yes 80mg QD Take 80 mg Methodi n (LIPITOR) 9-[address] 80 MG 15:13: daily. Hospita tablet 25 l cyanocobala 2019-0 Yes 1000ug QD Take 1,000 Methodi min 9-[address] (VITAMIN 15:13: mouth Hospita B-12) 1000 25 daily. l MCG tablet vitamin E 2019-0 Yes 400U QD Take 400 Meth [facility] 400 UNIT 9-[address] capsule 15:13: mouth Hospita 25 daily. l cholecalcif 2019-0 Yes 2000U QD Take 2,000 Methodi elan, [...] l hours as needed for moderate pain. pantoprazol Yes 40mg QD Take 40 mg [...] MG 15:13: daily. Hospita tablet 25 l Immunizations Ordered Filled Immunization Date Status Comments [facility] e Immunization Name Name Pneumococcal 2023-01-13 Completed Universit y of Conjugate, PCV20 00:00:00 [facility] dical (Prevnar 20) Branch Pneumococcal 20 2023-01-13 Completed Universit y of Conjugate, PCV20 00:00:00 [facility] dical (Prevnar 20) Branch Pneumococcal 20 2023-01-13 Completed Universit y of Conjugate, PCV20 00:00:00 [facility] dical (Prevnar 20) Branch Pneumococcal 20 2023-01-13 Completed Universit y of Conjugate, PCV20 00:00:00 [facility] dical (Prevnar 20) Branch Pneumococcal 20 2023-01-13 Completed Universit y of Conjugate, PCV20 00:00:00 [facility] dical (Prevnar 20) Branch Pneumococcal 20 2023-01-13 Completed Universit y of Conjugate, PCV20 00:00:00 [place] Me dical (Prevnar 20) Branch Pneumococcal 20 2023-01-13 Completed Universit y of Conjugate, PCV20 00:00:00 [place] Me dical (Prevnar 20) Branch Pneumococcal 20 2023-01-13 Completed Universit y of Conjugate, PCV20 00:00:00 [place] Md dical (Prevnar 20) Branch Pneumococcal 20 2023-01-13 Completed Universit y of Conjugate, PCV20 00:00:00 [place] Md dical (Prevnar 20) Branch Pneumococcal 20 2023-01-13 Completed Universit y of Conjugate, PCV20 00:00:00 [place] Md dical (Prevnar 20) Branch Pneumococcal 20 2023-01-13 Completed Universit y of Conjugate, PCV20 00:00:00 [place] Md dical (Prevnar 20) Branch Pneumococcal 20 2023-01-13 Completed Universit y of Conjugate, PCV20 00:00:00 [place] Md dical (Prevnar 20) Branch Pneumococcal 20 2023-01-13 Completed Universit y of Conjugate, PCV20 00:00:00 [place] Md dical (Prevnar 20) Branch Pneumococcal 20 2023-01-13 Completed Universit y of Conjugate, PCV20 00:00:00 [place] Md dical (Prevnar 20) Branch Pneumococcal 20 2023-01-13 Completed Universit y of Conjugate, PCV20 00:00:00 [place] Md dical (Prevnar 20) Branch Pneumococcal 20 2023-01-13 Completed Universit y of Conjugate, PCV20 00:00:00 [place] Md dical (Prevnar 20) Branch Pneumococcal 20 2023-01-13 Completed Universit y of Conjugate, PCV20 00:00:00 [place] Md dical (Prevnar 20) Branch Pneumococcal 20 2023-01-13 Completed Universit y of Conjugate, PCV20 00:00:00 [place] Md dical (Prevnar 20) Branch Pneumococcal 20 2023-01-13 Completed Universit y of Conjugate, PCV20 00:00:00 [place] Md dical (Prevnar 20) Branch Pneumococcal 20 2023-01-13 Completed Universit y of Conjugate, PCV20 00:00:00 [place] Md dical (Prevnar 20) Branch Pneumococcal 20 2023-01-13 Completed Universit y of Conjugate, PCV20 00:00:00 [place] Md dical (Prevnar 20) Branch Pneumococcal 20 2023-01-13 Completed Universit y of Conjugate, PCV20 00:00:00 [facility] dical (Prevnar 20) Branch Pneumococcal 20 2023-01-13 Completed Universit y of Conjugate, PCV20 00:00:00 [facility] dical (Prevnar 20) Branch Pneumococcal 20 2023-01-13 Completed Universit y of Conjugate, PCV20 00:00:00 [facility] dical (Prevnar 20) Branch Pneumococcal 20 2023-01-13 Completed Universit y of Conjugate, PCV20 00:00:00 [facility] dical (Prevnar 20) Branch Pneumococcal 20 2023-01-13 Completed Universit y of Conjugate, PCV20 00:00:00 [facility] dical (Prevnar 20) Branch Pneumococcal 20 2023-01-13 Completed Universit y of Conjugate, PCV20 00:00:00 [facility] dical (Prevnar 20) Branch Vital Signs Vital Name Observation Time Observation Value Comments Source Systolic blood 2023-02-28 20:10:00 141 mm[Hg] Univer sity of [facility] Diastolic blood 2023-02-28 20:10:00 57 mm[Hg] Unive rsity [facility] Heart rate 2023-02-28 20:10:00 72 /min [facility] Respiratory rate 2023-02-28 20:10:00 18 /min [facility] Oxygen saturation in 2023-02-28 20:10:00 99 /min [facility] Arterial blood by [facility] Pulse oximetry [place] Body temperature 2023-02-28 18:45:00 36.39 Adela [facility] Body height 2023-02-28 18:45:00 160 cm [facility] Body weight 2023-02-28 18:45:00 57.153 kg [facility] BMI 2023-02-28 18:45:00 22.32 kg/m2 [facility] Systolic blood 2023-01-13 18:49:00 127 mm[Hg] Univer sity of [facility] Diastolic blood 2023-01-13 18:49:00 60 mm[Hg] Unive rsity of [facility] Heart rate 2023-01-13 18:49:00 63 /min [facility] [place] [facility] Body temperature 2023-01-13 18:49:00 36.22 Adela [facility] [place] [facility] Respiratory rate 2023-01-13 18:49:00 18 /min [facility] [place] [facility] Body height 2023-01-13 18:49:00 160 cm [facility] [place] [facility] Body weight 2023-01-13 18:49:00 55.792 kg [facility] [place] [facility] BMI 2023-01-13 18:49:00 21.79 kg/m2 [facility] [place] [facility] Oxygen saturation in 2023-01-13 18:49:00 100 /min University of Arterial blood by [facility] Pulse oximetry Branch Systolic blood 2022-11-20 19:38:00 151 mm[Hg] Univer sity of [facility] [place] [facility] Diastolic blood 2022-11-20 19:38:00 68 mm[Hg] Unive rsity of [facility] [place] [facility] Heart rate 2022-11-20 19:35:00 68 /min [facility]i [facility] [place] [facility] Body temperature 2022-11-20 19:35:00 36.72 Adela [facility] [place] [facility] Respiratory rate 2022-11-20 19:35:00 18 /min Univ [facility] [place] [facility] Body height 2022-11-20 19:35:00 160 cm [facility] [place] [facility] Body weight 2022-11-20 19:35:00 61.508 kg [facility] [place] [facility] BMI 2022-11-20 19:35:00 24.02 kg/m2 [facility] [place] [facility] Oxygen saturation in 2022-11-20 19:35:00 97 /min University of Arterial blood by [facility] Pulse oximetry Branch Systolic blood 2022-11-20 20:41:00 170 mm[Hg] Univer sity of [facility] [place] [facility] Diastolic blood 2022-11-20 20:41:00 72 mm[Hg] Unive rsity [facility] [place] [facility] Heart rate 2022-11-20 19:33:00 68 /min [facility] [place] [facility] Body temperature 2022-11-20 19:33:00 36.72 Adela [facility] [place] [facility] Respiratory rate 2022-11-20 19:33:00 18 /min Univ [facility] [place] [facility] Body height 2022-11-20 19:33:00 160 cm [facility] [place] [facility] Body weight 2022-11-20 19:33:00 61.508 kg [facility] [place] [facility] BMI 2022-11-20 19:33:00 24.02 kg/m2 [facility] [place] [facility] Oxygen saturation in 2022-11-20 19:33:00 97 /min University of Arterial blood by [place] [employer] Pulse oximetry Branch Systolic blood 2022-07-05 21:21:00 135 mm[Hg] Univer [facility]ity [facility] [place] [facility] Diastolic blood 2022-07-05 21:21:00 82 mm[Hg] Unive [facility]ity [facility] [place] [facility] [place] Heart rate 2022-07-05 21:21:00 81 /min [facility] [place] [facility] Body temperature 2022-07-05 21:21:00 36.33 Adela [facility] [place] [facility] [place] Respiratory rate 2022-07-05 21:21:00 18 /min Univ [facility] [place] [facility] Body height 2022-07-05 21:21:00 160 cm [facility] [place] [facility] Body weight 2022-07-05 21:21:00 58.514 kg [facility] [place] [facility] BMI 2022-07-05 21:21:00 22.85 kg/m2 [facility] [place] [facility] Oxygen saturation in 2022-07-05 21:21:00 98 /min University of Arterial blood by [place] [employer] valerie Pulse oximetry Branch WEIGHT 2021-07-18 08:13:00 58.3 kg HEIGHT 2021-07-15 00:57:00 160 cm WEIGHT 2021-07-15 00:57:00 62.7 kg WEIGHT 2021-07-18 08:13:00 58.3 kg HEIGHT 2021-07-15 00:57:00 160 cm WEIGHT 2021-07-15 00:57:00 62.7 kg HEIGHT 2021-03-16 23:49:00 162.6 cm WEIGHT 2021-03-16 23:49:00 65.8 kg HEIGHT 2021-03-16 23:49:00 162.6 cm WEIGHT 2021-03-16 23:49:00 65.8 kg Systolic blood 2021-07-18 15:28:00 160 mm[Hg] [facility] Diastolic blood 2021-07-18 15:28:00 71 mm[Hg] [facility] Heart rate 2021-07-18 15:28:00 68 /min [facility] Body temperature 2021-07-18 15:28:00 36.22 Adela [facility] Respiratory rate 2021-07-18 15:28:00 18 /min [facility] Oxygen saturation in 2021-07-18 15:28:00 98 /min [facility] Arterial blood by Medical Ce nter Pulse oximetry Body weight 2021-07-18 08:13:[address] [facility] BMI 2021-07-18 08:13:00 22.77 kg/m2 [facility] Body height 2021-07-16 09:55:[address] [facility] Procedures Procedure Date / Time Performing Clinician Source Performed FERRITIN SERUM 2023-02-28 18:58:00 [facility] BASIC METABOLIC PANEL 2023-02-28 18:58:00 [facility] (NA, K, CL, CO2, Medical Branch GLUCOSE, BUN, CREATININE, CA) IRON PANEL 2023-02-28 18:58:00 [facility] CBC WITHOUT DIFF 2023-02-28 18:58:00 [place] [facility] EXTERNAL PROVIDER 2023-02-28 05:01:00 Doctor Unassigned, [facility] RECORDS Name Medical Branch [id number] 2023-02-18 00:00:[address] [facility] [id number] 2023-02-14 00:00:[address] [facility] [id number] 2023-02-10 00:00:[address] [facility] [id number] 2023-02-09 00:00:[address] [facility] [id number] 2023-02-09 00:00:[address] [facility] EXTERNAL PROVIDER 2023-01-31 05:01:00 Doctor Unassigned, No [facility] [place] RECORDS Name Medical Branch EXTERNAL PROVIDER 2023-01-15 05:01:00 Doctor Unassigned, No [facility] [place] RECORDS Name Medical Branch PNEUMOCOCCAL 20 2023-01-13 19:18:41 Kelli Koch [place] [facility] [place] CONJUGATE (PREVNAR 20) Medical B ranch VACCINE CBC (INCLUDES 2023-01-07 17:22:00 Kam Olivo [facility] DIFF/PLT)-Q Medical Branch HOME HEALTH - OTHER 2022-12-09 05:01:00 Doctor Unassigned, No [facility] [place] Name Medical Branch HOME HEALTH 485 2022-11-28 05:01:00 Doctor Unassigned, No [facility] [place] Name Medical Branch HB ECG ROUTINE & RHYTHM 2022-11-20 20:34:57 Kam [facility]ivo [facility] [place] [facility] [place] STRIP Medical Branch CONSENT/REFUSAL FOR 2022-11-20 19:22:06 Doctor Unassigned, No [facility] [place] DIAGNOSIS AND TREATMENT Name Medical Branch EXTERNAL PROVIDER 2022-06-25 06:01:00 Doctor Unassigned, No [facility] [place] RECORDS Name Medical Branch DEXA PERIPHERAL 2022-04-08 18:40:16 Varsha Bernal [facility] (FOREARM) A Medical Branch DEXA AXIAL (HIP AND 2022-04-08 18:40:16 Varsha Bernal [facility] SPINE) A Medical Branch REFERRAL- 2022-03-28 05:01:00 Doctor Unassigned, No [facility] [place] REQUEST/RESPONSE Name Medical Branch PHYSICIAN CERTIFICATION 2022-03-19 05:01:00 Doctor Unassigned, N o [facility] STATEMENT Name Medical Branch EXTERNAL PROVIDER 2022-03-05 05:01:00 Doctor Unassigned, No [facility] [place] RECORDS Name Medical Branch REFERRAL- 2022-02-11 05:01:00 Doctor Unassigned, No [facility] [place] REQUEST/RESPONSE Name Medical Branch ARTERIAL (FLORECITA'S W/ 2021-07-18 14:44:00 Tala Zamorano [facility] DOPPLER) ONLY Center CAROTID DOPPLER 2021-07-18 14:44:00 Chris Kiddve [facility] BILATERAL Center ARTERIAL DOPPLER LEGS 2021-07-17 15:30:00 GadicherlaDasia [facility] BILATERAL [facility] CBC W/PLT COUNT & AUTO 2021-07-17 04:11:00 [facility] MAGNESIUM 2021-07-17 04:11[facility]00 [facility] 2021-07-17 04:11:00 Pitt[facility], [facility] CBC W/PLT COUNT & AUTO 2021-07-17 04:11:[address] [facility] BRAIN WITHOUT IV 2021-07-16 14:25:00 [facility] CONTRAST [facility] CBC W/PLT COUNT & AUTO 2021-07-16 04:23:00 [facility] 2021-07-16 04:23:00 [facility] 2021-07-16 04:[facility], [facility]BC, % SAT. 2021-07-16 04:23:00 [facility] (WITHOUT FERRITIN) [facility] FERRITIN 2021-07-16 04:23:00 [facility] B-TYPE NATRIURETIC 2021-07-16 04:23:00 [facility] FACTOR (BNP) [facility] CBC W/PLT COUNT & AUTO 2021-07-16 04:23:00 PitFormerly named [facility] Center CT BRAIN WITHOUT IV 2021-07-15 20:30:00 Hari Batista [facility] CONTRAST [facility] HIGH SENSITIVITY 2021-07-15 17:16:00 Jessica Medeiros [facility] TROPONIN I [place] URINALYSIS W/ REFLEX 2021-07-15 08:15:00 Pittard, [facility] URINE CULTURE Center LIPID PANEL 2021-07-15 06:39:00 [facility]HENSIVE METABOLIC 2021-07-15 06:39:00 [facility] MAGNESIUM 2021-07-15 06:39:00 [facility] PHOS[facility]US 2021-07-15 06:39:00 [facility] HEMOGLOBIN A1C 2021-07-15 04:24:00 [facility] PROTHROMBIN TIME/INR 2021-07-15 04:24:00 [facility] APTT 2021-07-15 04:24:00 [facility] CBC W/PLT COUNT & AUTO 2021-07-15 04:24:00 [facility] TSH/FREE T4 IF INDICATED 2021-07-15 04:24:00 [facility] T4, FREE 2021-07-15 04:24:00 [facility] CBC W/PLT COUNT & AUTO 2021-07-15 04:24:00 [facility] EKG-SCANNED 2021-07-15 00:00:00 Provider [facility] Plan of Care Planned Activity Planned Date Details Comments Source Future Scheduled 2023-02-24 COVID-19 VACCINE (#1) [facility] Test 07:03:04 [code = COVID-19 VACCINE (#1)] Future Scheduled 2023-02-24 SHINGLES VACCINES (1 Met [facility] Test 07:03:04 of 2) [code = SHINGLES VACCINES (1 of 2)] Future Scheduled 2023-02-24 65+ PNEUMOCOCCAL [facility] Test 07:03:04 VACCINE (1 - PCV) [code = 65+ PNEUMOCOCCAL VACCINE (1 - PCV)] Future Scheduled 2023-02-24 INFLUENZA VACCINE (#1) [facility] Test 07:03:04 [code = INFLUENZA VACCINE (#1)] Future Scheduled 2023-02-21 Influenza Vaccine (#1[facility] 00:[facility]00 [code = Influenza Medical Ce nter Vaccine (#1)] Future Scheduled 2023-02-21 Influenza Vaccine (#1) [facility] Test 00:00:00 [code = Influenza Medical Ce nter Vaccine (#1)] Future Scheduled 2023-02-21 Influenza Vaccine (#1) [facility] 00:00:00 [code = Influenza Medical Ce nter Vaccine (#1)] Future Scheduled 2023-02-14 COVID[facility]19 [facility]INE [facility] 02:56:58 [code = COVID-19 VACCINE (#1)] Future Scheduled 2023-02-14 SHINGLES VACCINES ([facility] Test 02:56:58 of 2) [code = SHINGLES VACCINES (1 of 2)] Future Scheduled 2023-02-14 65+ [facility]OCOCCAL [facility] Test 02:56:58 VACCINE (1 - PCV) [code = 65+ PNEUMOCOCCAL VACCINE (1 - PCV)] Future Scheduled 2023-02-14 INFLUENZA VACCINE (#1) [facility] Test 02:56:58 [code = INFLUENZA VACCINE (#1)] Future Scheduled 2023-01-24 COVID-19 VACCINE (#1) [facility] Test 01:44:17 [code = COVID-19 VACCINE (#1)] Future Scheduled 2023-01-24 SHINGLES VACCINES (1 [facility] Test 01:44:17 of 2) [code = SHINGLES VACCINES (1 of 2)] Future Scheduled 2023-01-24 65+ [facility]OCOCCAL [facility] Test 01:44:17 VACCINE (1 - PCV) [code = 65+ PNEUMOCOCCAL VACCINE (1 - PCV)] Future Scheduled 2023-01-24 [facility]FL[facility]ENZA [facility]ACCINE [facility] Test 01:44:17 [code = INFLUENZA VACCINE] Future Scheduled 2023-01-24 COVID-19 VACCINE (#1) [facility] Test 01:44:17 [code = COVID-19 VACCINE (#1)] Future Scheduled 2023-01-24 SHINGLES VACCINES (1 [facility] Test 01:44:17 of 2) [code = SHINGLES VACCINES (1 of 2)] Future Scheduled 2023-01-24 65+ [facility]UMOCOCCAL [facility] Test 01:44:17 VACCINE (1 - PCV) [code = 65+ PNEUMOCOCCAL VACCINE (1 - PCV)] Future Scheduled 2023-01-24 INFLUENZA VACCINE [facility] Test 01:44:17 [code = INFLUENZA VACCINE] Future Scheduled 2022-06-23 FALLS RISK SCREENING [facility] Test 00:00:00 [code = FALLS RISK Medical C enter SCREENING] Future Scheduled 2022-06-23 F[place] [address] SCREENING [facility] Test 00:00:00 [code = FALLS RISK Medical C enter SCREENING] Future Scheduled 2022-06-23 [address] SCREENING [facility] Test 00:00:00 [code = FALLS RISK Medical C enter SCREENING] Future Scheduled 2022-06-08 COVID-19 VACCINE (#1) Me [facility] Test 17:32:49 [code = COVID-19 VACCINE (#1)] Future Scheduled 2022-06-08 SHINGLES VACCINES (1 Met [facility] Test 17:32:49 of 2) [code = [...] FIRST YEAR if no IPPE)] Future Scheduled 2003-07-[address] [facility] Test 00:00:00 WELLNESS (YEAR 2 or Medical Center FIRST YEAR if no IPPE) [code = MEDICARE ANNUAL WELLNESS (YEAR 2 or FIRST YEAR if no IPPE)] Future Scheduled 2003-07-[address] [facility] Test 00:00:00 WELLNESS (YEAR 2 or Medical Center FIRST YEAR if no IPPE) [code = MEDICARE ANNUAL WELLNESS (YEAR 2 or FIRST YEAR if no IPPE)] Future Scheduled 2003-07-[address] [facility] Test 00:00:00 WELLNESS (YEAR 2 or Medical Center FIRST YEAR if no IPPE) [code = MEDICARE ANNUAL WELLNESS (YEAR 2 or FIRST YEAR if no IPPE)] Future Scheduled 1987 SHINGLES VACCINES ([address] [facility] Test 00:00:00 of 2) [code = SHINGLES Medic al Center VACCINES (1 of 2)] Future Scheduled 1987 SHINGLES VACCINES ([address] [facility] Test 00:00:00 of 2) [code = SHINGLES Medic al Center VACCINES (1 of 2)] Future Scheduled 1987 SHINGLES VACCINES ([address] [facility] Test 00:00:00 of 2) [code = SHINGLES Medic al Center VACCINES (1 of 2)] Future Scheduled 1987 SHINGLES VACCINES ([address] [facility] Test 00:00:00 of 2) [code = SHINGLES Medic al Center VACCINES (1 of 2)] Future Scheduled 1956 DTAP/TDAP/TD VACCINES [facility] 00:00:00 (1 - Tdap) [code = Medical C enter DTAP/TDAP/TD VACCINES (1 - Tdap)] Future Scheduled 1956 DTAP/TDAP/TD VACCINES [facility] 00:00:00 (1 - Tdap) [code = Medical C enter DTAP/TDAP/TD VACCINES (1 - Tdap)] Future Scheduled 1956 DTAP/TDAP/TD VACCINES [facility] 00:00:00 (1 - Tdap) [code = Medical C enter DTAP/TDAP/TD VACCINES (1 - Tdap)] Future Scheduled 1956 DTAP/TDAP/TD VACCINES [facility] 00:00:00 (1 - Tdap) [code = Medical C enter DTAP/TDAP/TD VACCINES (1 - Tdap)] Future Scheduled [address] [facility] Test 00:00:00 Counseling and Medical Cente r Screening (12+) [code = Tobacco Cessation Counseling and Screening (12+)] Future Scheduled [address] [facility] Test 00:00:00 Counseling and Medical Cente r Screening (12+) [code = Tobacco Cessation Counseling and Screening (12+)] Future Scheduled [address] [facility] Test 00:00:00 Counseling and Medical Cente r Screening (12+) [code = Tobacco Cessation Counseling and Screening (12+)] Future Scheduled [address] [facility] Test 00:00:00 Counseling and Medical Cente r Screening (12+) [code = Tobacco Cessation Counseling and Screening (12+)] Future Scheduled 1943 PNEUMOCOCCAL 65+ YRS [facility] Test 00:00:00 (1 - PCV) [code = Medical Ce nter PNEUMOCOCCAL 65+ YRS (1 - PCV)] Future Scheduled 1943 PNEUMOCOCCAL 65+ YRS [facility] Test 00:00:00 (1 - PCV) [code = Medical Ce nter PNEUMOCOCCAL 65+ YRS (1 - PCV)] Future Scheduled 1943 PNEUMOCOCCAL 65+ YRS [facility] Test 00:00:00 (1 - PCV) [code = Medical Ce nter PNEUMOCOCCAL 65+ YRS (1 - PCV)] Future Scheduled 1943 PNEUMOCOCCAL 65+ YRS [facility] Test 00:00:00 (1 - PCV) [code = Medical Ce nter PNEUMOCOCCAL 65+ YRS (1 - PCV)] Future Scheduled 1938-02-09 COVID-19 VACCINE (#1) [facility] 00:00:00 [code = COVID-[address] VACCINE (#1)] Future Scheduled 1938-02-09 COVID-19 VACCINE (#1) [facility] 00:00:00 [code = COVID-[address] VACCINE (#1)] Future Scheduled 1938-02-09 COVID-19 VACCINE (#1) [facility] 00:00:00 [code = COVID-[address] VACCINE (#1)] Future Scheduled 1938-02-09 COVID-19 VACCINE (#1) [facility] 00:00:00 [code = COVID-[address] VACCINE (#1)] Future Scheduled 1937 DXA SCAN [code = DXA [facility] Test 00:00:00 SCAN] [facility] Future Scheduled 1937 DXA SCAN [code = DXA [facility] Test 00:00:00 SCAN] [facility] Future Scheduled 1937 DXA SCAN [code = DXA [facility] Test 00:00:00 SCAN] [facility] Future Scheduled 1937 DXA SCAN [code = DXA [facility] Test 00:00:00 SCAN] [facility] Encounters Start End Encounter Admission Attending Care Care Encounter Source Date/Time Date/Time Type Type Clinicians Facility Department ID 2023-04-25 2023-04-25 Outpatient MHIE MHIE [id number] Memoria 13:00:00 13:00:00 23 westley Beyer 2023-04-25 2023-04-25 Outpatient MHIE MHIE [id number] Memoria 13:00:00 13:00:00 23 westley Beyer 2023-03-07 2023-03-07 Outpatient R WALESKA TIMMONS [facility] 1 [id number] Univers 14:00:00 14:00:00 WALESKA TIMMONS [facility] 2023-02-28 2023-02-28 Voice Over Announcer 2, [facility] Lab [facility] 1.2.840.114 [id number] Univers 13:15:00 14:15:[address] [id number] ity [facility] [id number] [phone] Md dical NAL 353 [facility] 2023-02-28 2023-02-28 Nurse Nurse, [facility] Pob Amb Infusion [facility] 1.2.840.114 [id number] Univers 14:00:00 14:15:[address] [id number] it[id number] [phone] Md dical NAL 053 [facility] 2023-02-28 2023-02-28 Outpatient R KULDEEP [facility] [id number] Univers 14:00:00 14:00:00 AVE [facility] 2023-02-28 2023-02-28 Orders Doctor ALAN 1.2.840.114 [id number] Univers 00:00:00 00:00:00 Only Unassigned, ROSENDO [id number] ity of [place] [facility] [id number] Jose Elias as [phone] [address] 2023-02-21 2023-02-21 Outpatient R [facility] [id number] Univers 14:00:00 14:00:00 ity of [facility] 2023-02-21 2023-02-21 Telephone [facility] 1.2.840.114 [id number] Univers 00:00:00 00:00:00 Iwona SALDANA [id number] i ty of [place] [id number] Md dical NAL 053 [facility] 2023-02-06 2023-02-19 Inpatient EM Gul, HCANC TELE [id number] [facility] 09:06:00 19:14:00 Zunaira 83 [facility] are [facility] 2023-02-15 2023-02-15 Outpatient Gul, HCANW REF [id number] [facility] 11:16:00 11:16:00 Linda [address] [facility] are [facility] 2023-02-07 2023-02-07 Outpatient R [facility] [id number] Univers 14:00:00 14:00:00 ity of [facility] 2023-02-07 2023-02-07 Letter [facility] 1.2.840.114 [id number] Univers 00:00:00 00:00:00 (Out) [facility] SPECIALTY [id number] ity of [facility] [id number] [facility] AT [phone] Md dical VICTORY 072 [facility] 2023-02-07 2023-02-07 Telephone [facility] [id number] Univers 00:00:00 00:00:00 Kelli SALDANA [id number] i ty [facility] [id number] [phone] Md dical NAL 044 [facility] 2023-01-31 2023-01-31 Orders Doctor ALAN 1.2.840.114 [id number] Univers 00:00:00 00:00:00 Only Unassigned, ROSENDO [id number] ity of [place] [facility] 4.2.7.2.686 Jose Elias as [phone] [address] 2023-01-28 2023-01-28 Telephone [facility] 1.2.840.114 [id number] Univers 00:00:00 00:00:00 Ogdominicku LES [id number] ity [facility] [id number] [phone] Md dical NAL [address] [place] [address] 2023-01-22 2023-01-22 Telephone [facility] 1.2.840.114 [id number] [facility] 00:00:00 00:00:00 Spikedominickfide LES [id number] ity [facility] 4.2.7.2.[place] [phone] Md dical NAL [address] [place] [address] 2023-01-21 2023-01-21 Outpatient MHIE MHIE [id number] Memoria 11:15:00 11:15:00 22 westley [place] 2023-01-21 2023-01-21 Outpatient MHIE MHIE [id number] Memoria 11:15:00 11:15:00 22 westley [place] 2023-01-15 2023-01-15 Orders Doctor ALAN 1.2.840.114 [id number] Univers 00:00:00 00:00:00 Only Unassigned, ROSENDO [id number] ity of [place] [facility] 4.2.7.2.686 Jose Elias as [phone] [address] 2023-01-13 2023-01-13 Voice Over Announcer 2, Adc Lab [facility] 1.2.840.114 [id number] Univers 14:45:00 15:10:32 Visit Kelli Koch [id number] ity [facility] 4.2.7.2.[place] [phone] Md dical NAL 353 [facility] 2023-01-13 2023-01-13 [facility] [id number] Univers 14:00:00 14:26:07 KELLI gardiner [facility] 2023-01-13 2023-01-13 Office [facility] 1.2.840.114 [id number] Univers 14:00:00 14:26:07 Visit Kelli SALDANA 350.1.13.10 i ty [facility] 4.2.7.2.[place] [phone] Md dical NAL 044 [facility] 2023-01-13 2023-01-13 Telephone Juanito [facility] 1.2.840.114 [id number] Univers 00:00:00 00:00:00 Kam SALDANA [id number] ity [facility] 4.2.7.2.[place] [phone] Md dical NAL 044 [facility] 2023-01-13 2023-01-13 Patient [facility] 1.2.840.114 [id number] Univers 00:00:00 00:00:00 Outreach Soni Westley SALDANA [id number] ity [facility] 4.2.[place] [phone] Md dical NAL 044 [facility] 2023-01-10 2023-01-10 Outpatient IE IE [id number] Memoria 13:15:00 13:15:00 21 l [place] 2023-01-10 2023-01-10 [facility] [id number] Memoria 13:15:00 13:15:00 21 l [place] 2023-01-10 2023-01-10 Telephone Juanito [facility] 1.2.840.114 [id number] Univers 00:00:00 00:00:00 Kam SALDANA 350.1.13.10 ity of [facility] 4.2.7.2.[place] [phone] Md dical NAL 044 [facility] 2023-01-07 2023-01-07 Orders ALAN Olivo 1.2.840.114 [id number] Univers 00:00:00 00:00:00 Only Ogbharath ROSENDO 350.1.13.10 ity of [facility] 4.2.7.2.686 Jose Elias as [phone] [address] 2023-01-07 2023-01-07 Telephone [facility] 12.840.114 [id number] [facility] 00:00:00 00:00:00 Oglichawu [place] 350.1.13.10 ity of [place] 4[place].2.[place] [phone] Md dical NAL 044 [facility] 2023-01-01 2023-01-01 Telephone [facility] 12.840.114 [id number] [facility] 00:00:00 00:00:00 Ogdominicku [place] 350.1.13.10 ity of [place] 4[place].2.[place] [phone] Md dical NAL 044 [facility] 2022-12-31 2022-12-31 [facility] 1.2.840.114 [id number] [facility] 00:00:00 00:00:00 Varsha [place] 350.1.13.10 ity of [place] 4.2.7.2.[place] [phone] Md dical NAL [address] [place] [address] 2022-12-15 2022-12-15 [facility] 1.2.840.114 [id number] Univers 00:00:00 00:00:00 Kam [place] 350.1.13.10 it[place] of [place] 4[place]2.7.2.[place] [phone] Md dical NAL [address] [place] [address] 2022-12-15 2022-12-15 Formerly [facility] 1.2.840.114 [id number] Univers 00:00:00 00:00:00 Varsha A [place] 350.1.13.10 ity [place] 4[place].2.[place] [phone] Md dic[address] 2022-12-10 2022-12-10 Outpatient MHIE MHIE [id number] Memoria 13:00:00 13:00:00 16 westley Beyer 2022-12-10 2022-12-10 Outpatient MHIE MHIE [id number] Memoria 13:00:00 13:00:00 16 westley [place] 2022-12-09 2022-12-09 Orders Doctor ALAN 1.2.840.114 [id number] Univers 00:00:00 00:00:00 Only Unassigned, ROSENDO 350.1.13.10 ity of [facility] 4.2.7.2.686 Jose Elias as [phone] [address] 2022-12-05 2022-12-05 [facility] 1.2.840.114 [id number] Univers 00:00:00 00:00:00 Varsha SALDANA 350.1.13.10 ity of [facility] 4.2.[place] [phone] [address] 2022-11-28 2022-11-28 Orders Doctor ALAN 1.2.840.114 [id number] Univers 00:00:00 00:00:00 Only Unassigned, ROSENDO 350.1.13.10 ity of [facility] 4.2.7.2.686 Jose Elias as [phone] [address] 2022-11-25 2022-11-25 Telephone [facility] 1.2.840.114 [id number] Univers 00:00:00 00:00:00 Kam SALDA[place] 350.1.13.10 ity [facility] 4.2.7.2.[place] [phone] [address] 2022-11-21 2022-11-21 Telephone [facility] 1.2.840.114 [id number] Univers 00:00:00 00:00:00 Ogdominicku [place] 350.1.13.10 ity of [facility] 4.2.7.2.[place] [phone] Md dicramo [address] 2022-11-20 2022-11-20 Office Juanito [facility] 1.2.840.114 [id number] Univers 15:30:00 16:23:11 Visit [facility] [place] 350.1.13.10 ity of [place] 4[place].7.2.[place] [phone] [address] 2022-11-20 2022-11-20 Outpatient R KAM OLIVO [facility] [id number] Univers 15:30:00 16:23:11 KAM OLIVO ity of [facility] 2022-11-20 2022-11-20 Office Juanito [facility] 1.2.840.114 [id number] Univers 14:30:00 16:22:57 Visit [facility] [id number] it[place] 4[place] [phone] [address] 2022-11-20 2022-11-20 Orders Doctor ALAN 1.2.840.114 [id number] Univers 00:00:00 00:00:00 Only Unassigned, ROSENDO 350.1.13.10 ity of [facility] 4.2.7.2.686 Jose Elias as [phone] [facility] [address] [place] 2022-11-20 2022-11-20 Refill Juanito [facility] 1.2.840.114 [id number] Univers 00:00:00 00:00:00 [facility] 350.1.13.10 ity of [facility] 4.2.[place] [phone] [address] 2022-11-13 2022-11-13 Patient Doctor ALAN 1.2.840.114 [id number] Univers 00:00:00 00:00:00 Secure Msg Unassigned, ROSENDO 350.1.13.10 ity of [facility] 4.2.7.2.686 Jose Elias as [phone] [address] 2022-10-18 2022-10-18 Outpatient MHIE MHIE [id number] Memoria 13:30:00 13:30:00 20 l [place] 2022-10-18 2022-10-18 Outpatient MHIE MHIE [id number] Memoria 13:30:00 13:30:00 20 l [place] 2022-07-19 2022-07-19 Outpatient MHIE MHIE [id number] Memoria 13:00:00 13:00:00 19 l [place] 2022-07-19 2022-07-19 Outpatient MHIE MHIE [id number] Memoria 13:00:00 13:00:00 19 l [place] 2022-07-05 2022-07-05 Outpatient R KAM OLIVO [facility] [id number] Univers 15:30:00 16:27:49 KAM OLIVO ity [facility] 2022-07-05 2022-07-05 [facility] [id number] [facility] 15:30:00 16:27:49 Visit Kam SALDANA [id number] ity [facility] [id number] [phone] Md dic[address] 2022-07-01 2022-07-01 Outpatient MHIE MHIE [id number] Memoria 10:30:00 10:30:00 18 westley PepperPepito 2022-07-01 2022-07-01 Outpatient MHIE MHIE [id number] Memoria 10:30:00 10:30:00 18 [facility] 2022-07-01 2022-07-01 [facility] [id number] Univers 00:00:00 00:00:00 lichasilverfide SALDANA [id number] ity of [id number] [phone] Md dical NAL [address] [place] [address] 2022-06-28 2022-06-28 Outpatient R DOLORES [facility] [id number] Univers 15:00:00 15:00:00 VARSHA gardiner of [facility] 2022-06-28 2022-06-28 Outpatient MHIE MHIE [id number] Memoria 14:30:00 14:30:00 17 westley Pepito 2022-06-28 2022-06-28 Outpatient MHIE MHIE [id number] Memoria 14:30:00 14:30:00 17 westley Beyer 2022-06-25 2022-06-25 Orders Doctor ALAN [id number] Univers 00:00:00 00:00:00 Only Unassigned, ROSENDO [id number] ity [facility] [id number] Jose Elias as [phone] [address] 2022-06-21 2022-06-21 [facility]phone [facility] 1.2.840.114 [id number] Univers 00:00:00 00:00:00 Edgardo SALDANA 350.1.13.10 i ty [facility] [place] [id number] Md dical NAL [address] [place] [address] 2022-06-10 2022-06-10 Outpatient MHIE MHIE [id number] Memoria 13:00:00 13:00:00 15 westley Beyer 2022-06-10 2022-06-10 Outpatient MHIE MHIE [id number] Memoria 13:00:00 13:00:00 15 westley Beyer 2022-05-06 2022-05-06 Telephone [facility] 1.2.840.114 [id number] Univers 00:00:00 00:00:00 Varsha SALDANA 350.1.13.10 ity [facility] [place] [phone] Md dical NAL 044 [facility] 2022-04-24 2022-04-24 Outpatient MHIE MHIE [id number] Memoria 14:30:00 14:30:00 14 westley Beyer 2022-04-24 2022-04-24 Outpatient MHIE MHIE [id number] Memoria 14:30:00 14:30:00 14 westley Beyer 2022-04-19 2022-04-19 [facility] 1.2.840.114 [id number] Univers 00:00:00 00:00:00 Varsha Kya [place] 350.1.13.10 ity [facility] [place] [phone] Md dical COUNT INCLUDES THE [facility] 231 [facility] 2022-04-18 2022-04-18 Telephone [facility] 1.2.840.114 [id number] Univers 00:00:00 00:00:00 Varsha Kya [place] 350.1.13.10 ity of [place] [phone] Md dical NAL 044 [facility] 2022-04-10 2022-04-10 Patient [facility] 1.2.840.114 [id number] Univers 00:00:00 00:00:00 Secure Msg Varsha SALDANA 350.1.13.10 ity of [place] [phone] [facility] 231 [facility] 2022-04-08 2022-04-08 [id number] Univers 12:50:09 23:59:00 VARSHA ity of [facility] 2022-04-08 2022-04-08 [facility] 1.2.840.114 [id number] Univers 12:50:09 23:59:00 Encounter Varsha SALDANA 350.1.13.10 it[place] [phone] [facility] [address] 2022-03-28 2022-03-28 Orders Doctor ALAN 1.2.840.114 [id number] Univers 00:00:00 00:00:00 Only Unassigned, ROSENDO 350.1.13.10 ity of [facility] 4.2.7.2.686 Jose Elias as [phone] [facility] [address] 2022-03-21 2022-03-21 Telephone [facility] 1.2.840.114 [id number] Univers 00:00:00 00:00:00 Varsha SALDANA 350.1.13.10 [facility] [place] [phone] [address] 2022-03-19 2022-03-19 Orders Doctor ALAN 1.2.840.114 [id number] Univers 00:00:00 00:00:00 Only Unassigned, ROSENDO 350.1.13.10 ity of [facility] 4.2.7.2.686 Jose Elias as [phone] [address] 2022-03-05 2022-03-05 Orders Doctor ALAN 1.2.840.114 [id number] Univers 00:00:00 00:00:00 Only Unassigned, ROSENDO 350.1.13.10 ity of [facility] 4.2.7.2.686 Jose Elias as [phone] [address] 2022-02-18 2022-02-18 Outpatient R [facility] 1041 [id number] Univers 15:40:00 16:54:42 VARSHA [facility] 2022-02-18 2022-02-18 Office [facility] 1.2.840.114 [id number] Univers 15:40:00 16:54:42 Visit Varsha SALDANA 350.1.13.10 ity [facility] [place] [phone] [address] 2022-02-18 2022-02-18 Outpatient R [facility] 1041 [id number] Univers 15:40:00 16:54:42 VARSHA [facility] 2022-02-18 2022-02-18 Telephone [facility] 1.2.840.114 [id number] Univers 00:00:00 00:00:00 Varsha SALDANA 350.1.13.10 ity of [facility] 4.2.[place] [phone] [address] 2022-02-18 2022-02-18 Telephone Dolores [facility] 1.2.840.114 [id number] Univers 00:00:00 00:00:00 Varsha A [place] 350.1.13.10 ity of [place].2.[place] [phone] [address] 2022-02-11 2022-02-11 [facility] 1.2.840.114 [id number] Univers 00:00:00 00:00:00 Secure Msg Varsha A [place] 350.1.13.10 ity [facility] 4.2.[place].2.[place] [id number] [address] 2022-02-11 2022-02-11 Orders Doctor ALAN 1.2.840.114 [id number] Univers 00:00:00 00:00:00 Only Unassigned, ROSENDO 350.1.13.10 ity of [facility] 4.2.7.2.686 Jose Elias as [phone] [address] 2022-01-25 2022-01-25 [facility] 1.2.840.114 [id number] Univers 00:00:00 00:00:00 Secure Msg Varsha A [place] 350.1.13.10 ity of [place] 4[place].2.[place] [phone] [address] 2022-01-22 2022-01-22 Orders Doctor ALAN 1.2.840.114 [id number] Univers 00:00:00 00:00:00 Only Unassigned, ROSENDO 350.1.13.10 ity of [facility] 4.2.7.2.686 Jose Elias as [phone] [address] 2022-01-22 2022-01-22 [facility] 1.2.840.114 [id number] Univers 00:00:00 00:00:00 Secure Msg Varsha A [place] 350.1.13.10 ity of [place] 4[place].2.[place] [phone] Md dical NAL [address] [place] [address] 2022-01-21 2022-01-21 Office Juanito [facility] 1.2.840.114 [id number] Univers 15:00:00 16:18:21 Visit Kam SALDANA 350.1.13.10 ity [facility] 4[place]7.2.[place] [phone] Md dicramo MADRID [address] [place] [address] 2022-01-21 2022-01-21 Outpatient R NARESH OLIVOSilverFide [facility] [id number] Univers 15:00:00 16:18:21 KAM OLIVO [facility] 2022-01-21 2022-01-21 Outpatient R NARESH OLIVOSilverFide [facility] [id number] Univers 15:00:00 15:00:00 [facility]-10 2022-01-10 Outpatient MHIE MHIE [id number] Memoria 14:15:00 14:15:00 13 [place] 2022-01-10 2022-01-10 Outpatient MHIE MHIE [id number] Memoria 14:15:00 14:15:00 13 [facility] 2022-01-10 2022-01-10 Orders Doctor PHILLIPS 1.2.840.114 [id number] Univers 00:00:00 00:00:00 Only Unassigned, ROSENDO 350.1.13.10 ity of [facility] 4.2.7.2.686 Jose Elias as [phone] [address] 2022-01-09 2022-01-09 Outpatient MHIE MHIE [id number] Memoria 13:15:00 13:15:00 12 westley PepperPepito 2022-01-09 2022-01-09 Outpatient MHIE MHIE [id number] Memoria 13:15:00 13:15:00 12 westley Beyer 2022-01-03 2022-01-03 Telephone Dolores [facility] 1.2.840.114 [id number] Univers 00:00:00 00:00:00 Varsha A [place] 350.1.13.10 ity of [place] [phone] Md dical NAL 044 [facility] 2021-12-27 2021-12-27 Doug Bernal [facility] 1.2.840.114 9 [id number] Univers 00:00:00 00:00:00 Varsha A [place] 350.1.13.10 ity of [place]2.[place] [phone] Md dical NAL 231 [facility] 2021-12-21 2021-12-21 [facility] 1.2.840.114 [id number] Univers 00:00:00 00:00:00 Varsha A [place] 350.1.13.10 ity of [place]2.[place] [phone] Md dic[address] 2021-12-17 2021-12-17 [facility] Dolores [facility] 1.2.840.114 [id number] Univers 00:00:00 00:00:00 Only Varsha Kya [place] 350.1.13.10 ity of [facility] 4.2.7.2.686 Jose Elias as [phone] [address] 2021-12-11 2021-12-11 [facility] 1.2.840.114 [id number] Univers 00:00:00 00:00:00 Varsha A [place] 350.1.13.10 ity of [place] 4[place].2.[place] [phone] Md dical [address] 2021-12-11 2021-12-11 Doug Bernal [facility] 1.2.840.114 9 [id number] [facility] 00:00:00 00:00:00 Varsha A [place] 350.1.13.10 ity of [place] 4[place]2.[place] [phone] Md dical [address] 2021-12-03 2021-12-04 Office Bernal, [facility] 12.840.114 [id number] [id number] Univers 15:00:00 08:35:47 Visit Varsha SALDANA 350.1.13.10 ity of [place]2.[place] [phone] [address] 2021-12-03 2021-12-04 [facility] [id number] Univers 15:00:00 08:35:47 [facility] 2021-12-03 2021-12-03 [facility] [id number] Univers 15:00:00 15:00:00 [facility] 2021-12-03 2021-12-03 [facility] [id number] [id number] Univers 15:00:00 15:00:00 [facility] 2021-11-28 2021-11-28 [facility] ALAN Bernal 2.840.114 [id number] Univers 00:00:00 00:00:00 Only Varsha ROBBINS 350.1.13.10 ity of [facility] 4.2.7.2.686 Jose Elias as [phone] [address] 2021-11-27 2021-11-27 [address]114 9 [id number] Univers 00:00:00 00:00:00 Varsha SALDANA 350.1.13.10 ity of [place] [phone] [address] 2021-11-23 2021-11-23 [address]840.114 9 [id number] Univers 00:00:00 00:00:00 Varsha [place] 350.1.13.10 ity of [place]2.[place] [id number] [address] 2021-11-15 2021-11-15 Telephone [facility] 1.2.840.114 9 [id number] Univers 00:00:00 00:00:00 Varsha SALDANA 350.1.13.10 ity [facility] 4.[place] [phone] [address] 2021-10-13 2021-10-13 Orders Doctor ALAN 1.2.840.114 [id number] Univers 00:00:00 00:00:00 Only Unassigned, ROSENDO 350.1.13.10 [facility] 4.2.7.2.686 Jose Elias as [phone] [address] 2021-10-10 2021-10-10 Outpatient MHIE MHIE [id number] Memoria 14:15:00 14:15:00 11 westley Pepito 2021-10-10 2021-10-10 Outpatient MHIE MHIE [id number] 14:15:[facility] 14:15:00 11 westley [place] 2021-10-03 2021-10-03 Telephone [facility] 1.2.840.114 [id number] Univers 00:00:00 00:00:00 Varsha SALDANA 350.1.13.10 ity of [place] [phone] [address] 2021-09-27 2021-09-27 Outpatient [facility] [id number] Univers 10:00:00 12:08:09 VARSHA de pazy of [facility] 2021-09-27 2021-09-27 [facility] 1.2.840.114 [id number] Univers 10:00:00 12:08:09 Visit Varsha SALDANA 350.1.13.10 ity [facility] 4[place]2.7.2.[place] [phone] [address] 2021-09-27 2021-09-27 Telephone [facility] 1.2.840.114 [id number] Univers 00:00:00 00:00:00 Varsha SALDANA 350.1.13.10 ity of [place] [id number] Md dical COUNT INCLUDES THE [facility] 231 [facility] 2021-09-27 2021-09-27 Orders Doctor ALAN 1.2.840.114 [id number] Univers 00:00:00 00:00:00 Only Unassigned, ROSENDO 350.1.13.10 ity of [place] [facility] 4.2.7.2.686 Jose Elias as [id number] [facility] [address] [place] 2021-08-28 2021-08-28 Outpatient MHIE MHIE [id number] Memoria 15:15:00 15:15:00 10 [place] 2021-08-28 2021-08-28 Outpatient MHIE MHIE [id number] Memoria 15:15:00 15:15:00 10 westley PepperPepito 2021-08-08 2021-08-08 Outpatient MHIE MHIE [id number] Memoria 15:30:00 15:30:00 09 westley PepperPepito 2021-08-08 2021-08-08 Outpatient MHIE MHIE [id number] Memoria 15:30:00 15:30:00 09 westley Beyer 2021-07-15 2021-07-18 Inpatient ER CELY ALAMO [facility] ICU [id number] [facility] 00:36:00 17:11:[address] [facility] 2021-07-15 2021-07-18 Hospital ER Orlando Barretokathrin [facility] [id number] [facility] 00:36:00 17:11:00 Encounter [facility] 2021-07-15 2021-07-[address] [facility] [id number] [facility] 00:[facility] 00:00:00 [facility] 2021-06-05 2021-06-05 Orders Doctor PHILLIPS 1.2.840.114 [id number] Univers 00:00:00 00:00:00 Only Unassigned, ROSENDO 350.1.13.10 ity of [place] [facility] 4.2.7.2.686 Jose Elias as [phone] [address] 2021-03-16 2021-03-27 Inpatient ER RAJANI, [facility] [id number] [facility] 23:39:00 12:45:00 YASHASH 2019-08-19 2019-08-19 Outpatient MHIE MHIE [id number] Memoria 15:30:00 15:30:00 08 l [place] 2019-08-19 2019-08-19 Outpatient MHIE MHIE [id number] Memoria 15:30:00 15:30:00 08 l [place] 2019-01-12 2019-01-12 Outpatient MHIE MHIE [id number] Memoria 13:00:00 13:00:00 07 l [place] 2019-01-12 2019-01-12 Outpatient MHIE MHIE [id number] Memoria 13:00:00 13:00:00 06 l [place] 2019-01-12 2019-01-12 Outpatient MHIE MHIE [id number] Memoria 13:00:00 13:00:00 07 l [place] 2019-01-12 2019-01-12 Outpatient MHIE MHIE [id number] Memoria 13:00:00 13:00:00 06 l [place] 2018-10-13 2018-10-13 Outpatient MHIE MHIE [id number] Memoria 15:15:00 15:15:00 05 l [place] 2018-10-13 2018-10-13 Outpatient MHIE MHIE [id number] Memoria 15:15:00 15:15:00 05 l [place] 2018-09-01 2018-09-01 Outpatient MHIE MHIE [id number] Memoria 14:00:00 14:00:00 04 l [place] 2018-09-01 2018-09-01 Outpatient MHIE MHIE [id number] Memoria 14:00:00 14:00:00 04 l [place] 2018-05-29 2018-05-29 Outpatient MHIE MHIE [id number] Memoria 14:15:00 14:15:00 03 l [place] 2018-05-29 2018-05-29 Outpatient MHIE MHIE [id number] Memoria 14:15:00 14:15:00 03 westley Beyer 2018-04-16 2018-04-16 Outpatient MHIE MHIE [id number] Memoria 15:30:00 15:30:00 02 [place] 2018-04-16 2018-04-16 [facility] [id number] Memoria 15:30:00 15:30:00 02 westley Beyer 2018-04-02 2018-04-02 [facility] [id number] Memoria 15:00:00 15:00:00 01 [place] 2018-04-02 2018-04-02 [facility] [id number] Memoria 15:00:00 15:00:00 01 [place] 2018-03-31 2018-03-31 [facility] [id number] Memoria 14:15:00 14:15:00 00 westley Beyer 2018-03-31 2018-03-31 Outpatient [facility] [id number] Memoria 14:15:00 14:15:00 00 westley Beyer Results Test Description Test Time Test Comments Results Result Comments Source CYTOLOGY NON PROCESS CHECKER 2023-02-21 21:13:00 Test Item Value Reference Range Interpretation Comme nts CYTOLOGY RUN DATE: NON PROCESS CHECKER 02/21/23 [facility] * LIVE* PAGE 1 RUN TIME: 2112 Specimen Inquiry RUN USER: INTERFACE (test PATIENT: code = CASEY LOYNS [id number] LOC: MS.MS6 U #: [id number] AGE/SX: 87/F ROOM: [place] [address] REG: CR) 02/06/23REG DR: Linda Whitaker MD : 37 BED: 1 DIS: 02/19/23 STATUS: DIS IN TLOC: SPEC #: [id number] RECD: 02/19/231153 STATUS: IVANNA REMain #: [id number] LIZ: 02/18/23- SUBM DR: Linda Whitaker MD ENTERED: 02/19/23 SP TY PE: CYTO NGYN OTHR DR: No Primary or Family Physician Bennie Bruno MD, Jesse MD Rawasia,W asimain F MDORDERED: [id number], [id number], ANATOMIC SPEC TISSUES: PLEURAL FLUID (CYTOSPIN,CELL BLOCK) - LEFT PLEURAL FLUID FINAL DIAGNOSIS A. LEFT PLEURAL FLUID, ULTRASOUND GUIDED THORACOCENTESIS: - No malign ant cells identified - Benign mesothelial cells with monocytes, lymphocytes and neutrophils GROSS DESCRIPTION CYTOLOGY Received and labeled "Left pleural fluid ", are 250 ml of yellowish muco id fluid. Thefluid is set in cytolyt solution for a Thin Prep slide preparation which is stained withPap stain. A cell block is also performed. MICROSCOPIC DESCRIPTION Unless gross only, the diagn osis is based on microscopic examination. CLINICAL INFORMATION Pleural effusion Signed Zita Murphy 02/21/232112 END OF REPORT BODY FLUID CELL [id number] 11:36:00 Test Item Value Reference Range Interpretation Comments FLUID SOURCE (test PLEURAL code = SOURCEFL) FLUID COLOR (test code YELLOW COLORLESS A = COLFL) FLUID APPEARANCE (test HAZY CLEAR A code = APPFL) FLUID VOLUME (test 250 mL code = VOLFL) FLUID WBC (test code = 555 /uL 0-5 H WBCFL) FLUID RBC (test code = 1000 /uL <1000 RBCFL) FLUID LYMPHOCYTE (test 3 % 0-50 N code = LYMPHFL) BF PATHOLOGIST REVIEW REACTI VE MESOTHELIAL (test code = CELLSNEGATIVE F OR PATHREVBF) MALIGNANCY ISAIAS FLACA GRULLON MD FLUID POLYNUCLEAR 8 % 0-6 H (test code = POLYFL) FLUID MONONUCLEAR 89 % 50-100 N CELLS (test code = MONOFL) - XR CHEST 1 [id number] 14:18:00 [facility] CYPRESSName[facility] : 1935 Sex: FPatient Name: CASEY LYONS Unit No: [id number] EXAMS: CPT CODE: [id number] XR CHEST 1 V 02502 Clinical Information: Possible fluid collection. Dictation Location: A 1 COMPARISON: 02/18/2023 CXR. FINDINGS: Portable frontal view of the chest taken at 1314 hours shows monitoring electrodes overlying the chest wall. The lungs are hyperexpanded consistent with emphysema. Minimal blunting of the costophrenic angles is identified and cannot rule out small effusions. There is no apparent pneumothorax. No new consolidation. Bones unchanged. IMPRESSION: Emphysema. Minimal effusions. No pneumothorax. at 1418 Reported and signed by: Deric Cobb MD CC: No Primary or Family Physician; Linda Whitaker MD Technologist: Laron Chacon Fluoro Time: DAP (Gy m2): Air Kerma (mGy): Trscr Dt/Tm: 02/19/2023 (1417) by:SantanaAGV Electronic Signature Date/Time:02/19/2023 (1417)Orig Print D/T: S: 02/19/2023 (1191) Name: CASEY LYONS [facility] Phys: [place] [address] : 1935 Age: 87 Sex: [place] [address] Loc: NC.6301 1 Exam Date: 02/19/2023 Status: ADM IN PH: FAX: PAGE 1 Signed ReportCYTOLOGY NON [id number] 14:08:00 Test Item Value Reference Range Interpretation Comments CYTOLOGY NON PROCESS CHECKER (test code = CR) RUN DATE: 02/19/23 [facility] *LIVE* PAGE 1 RUN TIME: 1407 Specimen Inquiry RUN USER: INTERFACE PREET ENT: CASEY LYONS LOC: NC.MS6 U #: [id number] AGE/SX: 87/F ROOM: [place] [address] RE02/06/23[facility]: Linda Whitaker MD : 37 BED: 1 DIS: STATUS: ADM IN TLOC: SPEC #: [id number] RECD: 02/17/23 STATUS: IVANNA RE #: [id number] LIZ: 02/14/23-1418 [facility] DR: Linda Whitaker MD ENTERED: 02/17/23 SP TYPE: CYTO GALLOYN JACKSON DR: No Primary or Family Physician Bennie Bruno MD,Denilson Underwood,Angeline Neely MDORDERED: [id number], [id number], ANATOMIC SPEC TISSUES: PLEURAL FLUID (CYTOSPIN,CELL BLOCK) - RIGHT PLEURAL FLUID FINAL DIAGNOSIS A. RIGHT PLEURAL FLUID, ULTRASOUND GUIDED THORACOCENTESIS: - No malignant cells identified - Benign mesothelial cells with monocytes, lymphocytes and neutrophils GROSS DESCRIPTION CYTOLOGY Received and labeled "Right pleural fluid ", are 1200 ml of yellowish mucoid fluid. Thefluid is set in cytolyt solution for a Thin Prep slide preparation which is stained withPap stain. A cell block is also performed. MICROSCOPIC DESCRIPTION Unless gross only, the diagnosis is based on microscopic examination. CLINICAL INFORMATION NSTEMI and GI Bleed - Signed Andrea Murphy 02/19/23 1408 END OF REPORT COMPREHENSIVE METABOLIC [id number] 05:09:00 Test Item Value Reference Range Interpretation Comments SODIUM (test code 135 mmol/L 135-145 N = NA) POTASSIUM (test 4.0 mmol/L 3.5-5.1 N code = K) CHLORIDE (test 101 mmol/L 98-107 N code = CL) CARBON DIOXIDE 30 mmol/L 21-32 N (test code = CO2) ANION GAP (test 8.0 2.0-16.0 code = GAP) GLUCOSE (test code 111 mg/dL 65-99 H = GLU) BLOOD UREA 80 mg/dL 4-23 H NITROGEN (test code = BUN) GLOMERULAR 21 ml/min >60 L The Glomerular Filtration FILTRATION RATE Rate is a ca lculated (test code = GFR) parameterb ased on serum Creatinine, pat ient age and sex. GFR va luesless than 60 mL/min/ 1.73 square meters a re indicative ofCh ronic Kidney Disease. Values less than 15 mL/min/1.73squa re meters indicate Kidney failure. The calculation forGFR is based on the CK D-EPI (2020) calculat ion. This formulais race indifferent and is the recommended for tank for GFRby the [facility] Kidney Foundation for Adults.The GFR will not ca lculate if the sex is unkn own or if thepatient's ag e is <18 years. CREATININE (test 2.2 mg/dL 0.6-1.5 H code = CREAT) BUN/CREATININE 36.4 12.0-20.0 H RATIO (test code = BUN/CREA) TOTAL PROTEIN 5.2 g/dL 6.4-8.2 L (test code = PROT) ALBUMIN (test code 2.3 g/dL 3.4-5.0 L = ALB) CALCIUM (test code 8.2 mg/dL 8.5-10.1 L = CA) BILIRUBIN TOTAL 0.5 mg/dL 0.2-1.2 N Use of this assay is not (test code = BILT) recommend ed for patients undergoingtreat ment with Eltrombopag due to the potential for falselyelevated results. SGOT/AST (test 18 U/L 15-37 N code = AST) SGPT/ALT (test 24 U/L 6-50 N code = ALT) ALKALINE 70 U/L 45-117 N PHOSPHATASE (test code = ALKP) CBC W/AUTO [id number] 04:51:00 Test Item Value Reference Range Interpretation Comments WHITE BLOOD CELL (test code = 7.4 10 3/uL 4.5-11.0 N WBC) RED BLOOD CELL (test code = 2.70 10 6/uL 3.50-5.50 L RBC) HEMOGLOBIN (test code = HGB) 8.1 g/dL 12.0-16.0 L HEMATOCRIT (test code = HCT) 25.3 % 37.0-55.0 L MEAN CELL VOLUME (test code = 94 fL 81-102 N MCV) MEAN CELL HGB (test code = 30.0 pg 26.0-34.0 N MCH) MEAN CELL HGB CONCENTRATION 32.0 g/dL 31.0-37.0 N (test code = MCHC) RED CELL DISTRIBUTION WIDTH 16.8 % 11.6-14.4 H (test code = RDW) PLATELET COUNT (test code = 227 10 3/uL 150-400 N PLT) MEAN PLATELET VOLUME (test 11.8 fL 9.0-12.6 N code = MPV) NEUTROPHIL % (test code = NT%) 73.4 % 33.0-76.0 N IMMATURE GRANULOCYTE % (test 0.4 % 0.0-1.0 N code = IG%) LYMPHOCYTE % (test code = LY%) 14.1 % 14.0-56.4 N MONOCYTE % (test code = MO%) 9.3 % 0.0-12.9 N EOSINOPHIL % (test code = EO%) 2.7 % 0.0-7.0 N BASOPHIL % (test code = BA%) 0.1 % 0-2.0 N NUCLEATED RBC % (test code = 0.0 % 0-0.2 N NRBC%) NEUTROPHIL # (test code = NT#) 5.46 10 3/uL 1.5-7.0 N IMMATURE GRANULOCYTE # (test 0.030 x10 3/uL 0.000-0.100 N code = IG#) LYMPHOCYTE # (test code = LY#) 1.05 10 3/uL 1.50-4.00 L MONOCYTE # (test code = MO#) 0.69 10 3/uL 0.20-0.80 N EOSINOPHIL # (test code = EO#) 0.20 10 3/uL 0.0-0.5 N BASOPHIL # (test code = BA#) 0.01 10 3/uL 0.0-0.1 N NUCLEATED RBC # (test code = 0.000 10 3/uL 0.000-0.012 N NRBC#) FLUID [id number] 23:25:00 Test Item Value Reference Range Interpretation Comments FLUID GLUCOSE (test 117 mg/dL See_Comment GLUCOSE BODY FLUID code = GLUFL) REFERENCE RANG E HAS NOT BEEN ESTABLISHE D [Automated mess age] The system which ge nerated this result tra nsmitted reference range : (). The reference range was not used to interpr et this result as normal/abnormal . SENT OUT TO [facility] ON 02-18-23 @1525 BODY FLUID SOURCE 2 PleuralFLUID PROTEIN 2023-02-18 23:25:00 Test Item Value Reference Range Interpretation Comments FLUID PROTEIN < 2.0 gram/dL See_Comment NO REFERENCE RANGE (test code = ESTABLISHED FOR BODY PROTFL) FLUID TOTAL PRO TEIN [Automated mess age] The system whic h generated this result transmitted ref erence range: (). The reference range was not used to int erpret this result as normal/abnormal . SENT OUT TO [facility] ON 02-18-23 @1525 BODY FLUID SOURCE 2 [employer]uralFL[employer] LDH 2023-02-18 23:25:00 Test Item Value Reference Range Interpretation Comments FLUID LDH (test 117 IUnit/L See_Comment NO REFERENCE RANGE code = LDHFL) ESTABLISHED FO R LDH ON BODY FLUIDS [Au tomated message] The sy stem which generated this result transmit vero reference range : (). The reference range was not used to interpr et this result as normal/abnormal . SENT OUT TO [facility] ON 02-18-23 @1525 BODY FLUID SOURCE 2 Pleural- US THORACENTESIS [id number] 15:38:00 [facility] : 1935 Sex: FPatient Name: CASEY LYONS Unit No: [id number] EXAMS: CPT CODE: [id number] US THORACENTESIS W/IMAG [id number] EXAMINATION: IMAGE-GUIDED LEFT THORACENTESIS. INDICATION/HISTORY: 87 years -old Female with pleural effusion left LOCATION CODE: A1 COMPARISON: None HEAD OF MATHEMATICS: Baron Aftab MD SEDATION: Local Anesthesia. CONTRAST: None. TECHNIQUE: Procedure details including risk, benefits, and complications were thoroughly discussed with the patient or patient's family. Patient or patient's family voiced understanding and gave both written and verbal consent. Prior to beginning the procedure, [place] Protocol was used to confirm the patient's identity and planned procedure. Maximum sterile barriers including cap, mask, hand hygiene, sterile gloves, sterile gown, large sterile drape and cutaneous antisepsis were used. The patient's abdomen was examined with ultrasound and a suitable pocket of fluid in theleft posterior chest was identified. The overlying skin was anesthetized with lidocaine. Using real-time ultrasound guidance, a centesis needle was advanced into the fluid. Approximately 200mL of strawcolored fluid was drained. At the conclusion of the procedure, the catheter was removed and a sterile dressing applied to the site. FINDINGS: Preprocedure Ultrasound demonstrated a small amount of pleural fluid. IMPRESSION: Successful image-guided left thoracentesis. [facility]. at 1538 Reported and signed by: Baron Aftab MD CC: No Primary or Family Physician; Alden Rosas MD; Linda Whitaker MD Technologist: Brionna Donovan Probe: Trscr Dt/Tm:02/18/2023 (1538) by:[email or web address] Electronic Signature Date/Time: 02/18/2023 (1538)Orig Print D/T: S: 02/18/2023 (154) [facility] [place] [address] : 1935 Age: 87 Sex: [place] [phone] Loc: NC.6301 1 ExamDate: 02/18/2023 Status: ADM IN PH: FAX: PAGE 1 Signed Report- XR CHEST 1 [id number] 14:17:00 [facility] : 1935 Sex: FPatient Name: CASEY LYONS Unit No: [id number] EXAMS: CPT CODE: [id number] XR CHEST 1 V [id number] Chest one view AP 02/18/2023 2:17 PM CLINICAL INDICATION: Thoracentesis COMPARISON: 02/17/2023 LOCATION: W1 IMPRESSION: No pneumothorax is evident status post left thoracentesis. at 1417 Reported and signed by: Mayo Ware CC: No Primary or FamilyPhysician; Baron Aftab VERNON; Linda Whitaker MD Technologist: Laron Latif Time: DAP (Gy m2): Air Kerma (mGy): Trscr Dt/Tm: 02/18/2023 (141) by:[email or web address] Electronic Signature Date/Time: 02/18/2023 (1416)Orig Print D/T: S: 02/18/2023 (1420) Name: CASEY LYONS [facility] [place] Phys: [id number] - Baron SAULO Ugalde [address] : 1935 Age: 87 Sex: [place] [phone] Loc: NC.6301 1 Exam Date: 02/18/2023 Status: ADM IN PH: FAX: PAGE 1 Signed ReportCOMPREHENSIVE METABOLIC [id number] 05:42:00 Test Item Value Reference Range Interpretation Comments SODIUM (test code 137 mmol/L 135-145 N = NA) POTASSIUM (test 4.4 mmol/L 3.5-5.1 N code = K) CHLORIDE (test 101 mmol/L 98-107 N code = CL) CARBON DIOXIDE 27 mmol/L 21-32 N (test code = CO2) ANION GAP (test 13.4 2.0-16.0 code = GAP) GLUCOSE (test code 119 mg/dL 65-99 H = GLU) BLOOD UREA 74 mg/dL 4-23 H NITROGEN (test code = BUN) GLOMERULAR 24 ml/min >60 L The Glomerular Filtration FILTRATION RATE Rate is a ca lculated (test code = GFR) parameterb ased on serum Creatinine, pat ient age and sex. GFR va luesless than 60 mL/min/ 1.73 square meters a re indicative ofCh ronic Kidney Disease. Values less than 15 mL/min/1.73squa re meters indicate Kidney failure. The calculation forGFR is based on the CK D-EPI (2020) calculat ion. This formulais race indifferent and is the recommended for tank for GFRby the [facility] for Ad[facility].The GFR will not ca lculate if the sex is unkn own or if thepatient's ag e is <18 years. CREATININE (test 2.0 mg/dL 0.6-1.5 H code = CREAT) BUN/CREATININE 37.0 12.0-20.0 H RATIO (test code = BUN/CREA) TOTAL PROTEIN 5.4 g/dL 6.4-8.2 L (test code = PROT) ALBUMIN (test code 2.4 g/dL 3.4-5.0 L = ALB) CALCIUM (test code 8.7 mg/dL 8.5-10.1 N = CA) BILIRUBIN TOTAL 0.3 mg/dL 0.2-1.2 N Use of this assay is not (test code = BILT) recommend ed for patients undergoingtreat ment with Eltrombopag due to the potential for falselyelevated results. SGOT/AST (test 17 U/L 15-37 N code = AST) SGPT/ALT (test 24 U/L 6-50 N code = ALT) ALKALINE 77 U/L 45-117 N PHOSPHATASE (test code = ALKP) CBC W/AUTO [id number] 05:26:00 Test Item Value Reference Range Interpretation Comments WHITE BLOOD CELL (test code = 10.0 10 3/uL 4.5-11.0 N WBC) RED BLOOD CELL (test code = 3.02 10 6/uL 3.50-5.50 L RBC) HEMOGLOBIN (test code = HGB) 9.1 g/dL 12.0-16.0 L HEMATOCRIT (test code = HCT) 28.4 % 37.0-55.0 L MEAN CELL VOLUME (test code = 94 fL 81-102 N MCV) MEAN CELL HGB (test code = 30.1 pg 26.0-34.0 N MCH) MEAN CELL HGB CONCENTRATION 32.0 g/dL 31.0-37.0 N (test code = MCHC) RED CELL DISTRIBUTION WIDTH 17.0 % 11.6-14.4 H (test code = RDW) PLATELET COUNT (test code = 257 10 3/uL 150-400 N PLT) MEAN PLATELET VOLUME (test 11.5 fL 9.0-12.6 N code = MPV) NEUTROPHIL % (test code = NT%) 80.0 % 33.0-76.0 H IMMATURE GRANULOCYTE % (test 0.5 % 0.0-1.0 N code = IG%) LYMPHOCYTE % (test code = LY%) 9.8 % 14.0-56.4 L MONOCYTE % (test code = MO%) 7.7 % 0.0-12.9 N EOSINOPHIL % (test code = EO%) 1.8 % 0.0-7.0 N BASOPHIL % (test code = BA%) 0.2 % 0-2.0 N NUCLEATED RBC % (test code = 0.0 % 0-0.2 N NRBC%) NEUTROPHIL # (test code = NT#) 8.03 10 3/uL 1.5-7.0 H IMMATURE GRANULOCYTE # (test 0.050 x10 3/uL 0.000-0.100 N code = IG#) LYMPHOCYTE # (test code = LY#) 0.98 10 3/uL 1.50-4.00 L MONOCYTE # (test code = MO#) 0.77 10 3/uL 0.20-0.80 N EOSINOPHIL # (test code = EO#) 0.18 10 3/uL 0.0-0.5 N BASOPHIL # (test code = BA#) 0.02 10 3/uL 0.0-0.1 N NUCLEATED RBC # (test code = 0.000 10 3/uL 0.000-0.012 N NRBC#) - CHEST 2 [id number] 17:33:00 [facility]SKya : 1935 Sex: FPatient Name: CASEY LYONS Unit No: [id number] EXAMS: CPT CODE: [id number] XR CHEST 2 V [id number] CLINICAL INFORMATION: pleural effusion Dictation Location: A 1 COMPARISON: 02/14/2023 CXR. FINDINGS: Frontal and lateral views are submitted. The heart size is mildly enlarged. Lungs are hyperexpanded consistent with emphysema. Once again noted is a left pleural effusion with apparent slight decrease in the rig ht pleural effusion since the prior study. Biapical pleural thickening partially calcified right apical scarring is again seen. Mild aortic tortuosity. No acute bone changes. IMPRESSION: 1. Emphysematous hyperexpansion of the lungs. 2. Bilateral pleural effusions remain. There may be slight interval decrease on the right since the prior study. at 1733 Reported and signed by: Deric Cobb MD CC: No Primary or Family Physician; Alden Contreras MD; Linda Whitaker MD Technologist: Christian Latif Time: DAP (Gy m2): Air Kerma (mGy): Trscr Dt/Tm: 02/17/2023 (1732) by:[email or web address] Electronic Signature Date/Time: 02/17/2023 (173)Orig Print D/T: S: 02/17/2023 (173) [facility] Alden Valadez VMD [address] : 1935 Age: 87 Sex: [place] [id number] Loc: NC.6301 1Exam Date: 02/17/2023 Status: ADM IN PH: FAX: PAGE 1 Signed ReportBODY FLUID CELL [id number] 09:56:00 Test Item Value Reference Range Interpretation Comments FLUID SOURCE (test PLEURAL code = SOURCEFL) FLUID COLOR (test code YELLOW COLORLESS A = COLFL) FLUID APPEARANCE (test CLEAR CLEAR code = APPFL) FLUID VOLUME (test 950 mL code = VOLFL) FLUID WBC (test code = 33 /uL 0-5 H WBCFL) FLUID RBC (test code = < 1000 /uL <1000 RBCFL) FLUID LYMPHOCYTE (test 75 % 0-50 H code = LYMPHFL) BF PATHOLOGIST REVIEW Pleura l fluid with (test code = elevated WBC co unt, PATHREVBF) consisting oflymphocytes, and few macrophages and neutrophils.Neg ative for malignancy. Reviewed by Dr. Leo on 02/17/2023 @ 0956. FLUID POLYNUCLEAR 12 % 0-6 H (test code = POLYFL) FLUID MONONUCLEAR 13 % 50-100 L CELLS (test code = MONOFL) COMPREHENSIVE METABOLIC [id number] 08:19:00 Test Item Value Reference Range Interpretation Comments SODIUM (test code 135 mmol/L 135-145 N = NA) POTASSIUM (test 4.1 mmol/L 3.5-5.1 N code = K) CHLORIDE (test 103 mmol/L 98-107 N code = CL) CARBON DIOXIDE 27 mmol/L 21-32 N (test code = CO2) ANION GAP (test 9.1 2.0-16.0 N code = GAP) GLUCOSE (test code 98 mg/dL 65-99 N = GLU) BLOOD UREA 72 mg/dL 4-23 H NITROGEN (test code = BUN) GLOMERULAR 24 ml/min >60 L The Glomerular Filtration FILTRATION RATE Rate is a ca lculated (test code = GFR) parameterb ased on serum Creatinine, pat ient age and sex. GFR va luesless than 60 mL/min/ 1.73 square meters a re indicative ofCh ronic Kidney Disease. Values less than 15 mL/min/1.73squa re meters indicate Kidney failure. The calculation forGFR is based on the CK D-EPI (2020) calculat ion. This formulais race indifferent and is the recommended for tank for GFRby the [facility] Kidney Foundation for Adults.The GFR will not ca lculate if the sex is unkn own or if thepatient's ag e is <18 years. CREATININE (test 2.0 mg/dL 0.6-1.5 H code = CREAT) BUN/CREATININE 36.0 12.0-20.0 H RATIO (test code = BUN/CREA) TOTAL PROTEIN 4.8 g/dL 6.4-8.2 L (test code = PROT) ALBUMIN (test code 2.1 g/dL 3.4-5.0 L = ALB) CALCIUM (test code 8.6 mg/dL 8.5-10.1 N = CA) BILIRUBIN TOTAL 0.2 mg/dL 0.2-1.2 N Use of this assay is not (test code = BILT) recommend ed for patients undergoingtreat ment with Eltrombopag due to the potential for falselyelevated results. SGOT/AST (test 14 U/L 15-37 L code = AST) SGPT/ALT (test 20 U/L 6-50 N code = ALT) ALKALINE 67 U/L 45-117 N PHOSPHATASE (test code = ALKP) CBC W/AUTO [id number] 08:06:00 Test Item Value Reference Range Interpretation Comments WHITE BLOOD CELL (test code = 7.4 10 3/uL 4.5-11.0 N WBC) RED BLOOD CELL (test code = 2.84 10 6/uL 3.50-5.50 L RBC) HEMOGLOBIN (test code = HGB) 8.5 g/dL 12.0-16.0 L HEMATOCRIT (test code = HCT) 26.5 % 37.0-55.0 L MEAN CELL VOLUME (test code = 93 fL 81-102 N MCV) MEAN CELL HGB (test code = 29.9 pg 26.0-34.0 N MCH) MEAN CELL HGB CONCENTRATION 32.1 g/dL 31.0-37.0 N (test code = MCHC) RED CELL DISTRIBUTION WIDTH 17.0 % 11.6-14.4 H (test code = RDW) PLATELET COUNT (test code = 250 10 3/uL 150-400 N PLT) MEAN PLATELET VOLUME (test 11.6 fL 9.0-12.6 N code = MPV) NEUTROPHIL % (test code = NT%) 71.3 % 33.0-76.0 N IMMATURE GRANULOCYTE % (test 0.4 % 0.0-1.0 N code = IG%) LYMPHOCYTE % (test code = LY%) 14.1 % 14.0-56.4 N MONOCYTE % (test code = MO%) 10.3 % 0.0-12.9 N EOSINOPHIL % (test code = EO%) 3.5 % 0.0-7.0 N BASOPHIL % (test code = BA%) 0.4 % 0-2.0 N NUCLEATED RBC % (test code = 0.0 % 0-0.2 N NRBC%) NEUTROPHIL # (test code = NT#) 5.26 10 3/uL 1.5-7.0 N IMMATURE GRANULOCYTE # (test 0.030 x10 3/uL 0.000-0.100 N code = IG#) LYMPHOCYTE # (test code = LY#) 1.04 10 3/uL 1.50-4.00 L MONOCYTE # (test code = MO#) 0.76 10 3/uL 0.20-0.80 N EOSINOPHIL # (test code = EO#) 0.26 10 3/uL 0.0-0.5 N BASOPHIL # (test code = BA#) 0.03 10 3/uL 0.0-0.1 N NUCLEATED RBC # (test code = 0.000 10 3/uL 0.000-0.012 N NRBC#) BASIC METABOLIC [id number] 05:57:00 Test Item Value Reference Range Interpretation Comments SODIUM (test code = 136 mmol/L 135-145 N NA) POTASSIUM (test code 4.0 mmol/L 3.5-5.1 N = K) CHLORIDE (test code 105 mmol/L 98-107 N = CL) CARBON DIOXIDE (test 26 mmol/L 21-32 N code = CO2) ANION GAP (test code 9.0 2.0-16.0 N = GAP) GLUCOSE (test code = 107 mg/dL 65-99 H GLU) BLOOD UREA NITROGEN 65 mg/dL 4-23 H (test code = BUN) GLOMERULAR 26 ml/min >60 L The Glomerular FILTRATION RATE Filtration R ate is a (test code = GFR) calculated parameterbased on serum Creatinine, pat ient age and sex. GFR va luesless than 60 mL/min/ 1.73 square meters a re indicative ofCh ronic Kidney Disease. Values less than 15 mL/min/1.73squa re meters indicate Kidney failure. The calculation for GFR is based on the CK D-EPI (2020) calculat ion. This formulais race indifferent and is the recommended for tank for GFRby the Nat [facility] on for Adults.The GFR will not calculate if th e sex is unknown or if thepatient's ag e is <18 years. CREATININE (test 1.9 mg/dL 0.6-1.5 H code = CREAT) BUN/CREATININE RATIO 34.2 12.0-20.0 H (test code = BUN/CREA) CALCIUM (test code = 8.3 mg/dL 8.5-10.1 L CA) CBC W/AUTO [id number] 05:37:00 Test Item Value Reference Range Interpretation Comments WHITE BLOOD CELL (test code = 7.7 10 3/uL 4.5-11.0 N WBC) RED BLOOD CELL (test code = 2.88 10 6/uL 3.50-5.50 L RBC) HEMOGLOBIN (test code = HGB) 8.8 g/dL 12.0-16.0 L HEMATOCRIT (test code = HCT) 27.0 % 37.0-55.0 L MEAN CELL VOLUME (test code = 94 fL 81-102 N MCV) MEAN CELL HGB (test code = 30.6 pg 26.0-34.0 N MCH) MEAN CELL HGB CONCENTRATION 32.6 g/dL 31.0-37.0 N (test code = MCHC) RED CELL DISTRIBUTION WIDTH 17.2 % 11.6-14.4 H (test code = RDW) PLATELET COUNT (test code = 252 10 3/uL 150-400 N PLT) MEAN PLATELET VOLUME (test 11.6 fL 9.0-12.6 N code = MPV) NEUTROPHIL % (test code = NT%) 74.1 % 33.0-76.0 N IMMATURE GRANULOCYTE % (test 0.4 % 0.0-1.0 N code = IG%) LYMPHOCYTE % (test code = LY%) 13.0 % 14.0-56.4 L MONOCYTE % (test code = MO%) 8.6 % 0.0-12.9 N EOSINOPHIL % (test code = EO%) 3.6 % 0.0-7.0 N BASOPHIL % (test code = BA%) 0.3 % 0-2.0 N NUCLEATED RBC % (test code = 0.0 % 0-0.2 N NRBC%) NEUTROPHIL # (test code = NT#) 5.72 10 3/uL 1.5-7.0 N IMMATURE GRANULOCYTE # (test 0.030 x10 3/uL 0.000-0.100 N code = IG#) LYMPHOCYTE # (test code = LY#) 1.00 10 3/uL 1.50-4.00 L MONOCYTE # (test code = MO#) 0.66 10 3/uL 0.20-0.80 N EOSINOPHIL # (test code = EO#) 0.28 10 3/uL 0.0-0.5 N BASOPHIL # (test code = BA#) 0.02 10 3/uL 0.0-0.1 N NUCLEATED RBC # (test code = 0.000 10 3/uL 0.000-0.012 N NRBC#) BASIC METABOLIC [id number] 07:09:00 Test Item Value Reference Range Interpretation Comments SODIUM (test code = 137 mmol/L 135-145 N NA) POTASSIUM (test code 4.1 mmol/L 3.5-5.1 N = K) CHLORIDE (test code 106 mmol/L 98-107 N = CL) CARBON DIOXIDE (test 26 mmol/L 21-32 N code = CO2) ANION GAP (test code 9.1 2.0-16.0 N = GAP) GLUCOSE (test code = 109 mg/dL 65-99 H GLU) BLOOD UREA NITROGEN 62 mg/dL 4-23 H (test code = BUN) GLOMERULAR 23 ml/min >60 L The Glomerular FILTRATION RATE Filtration R ate is a (test code = GFR) calculated parameterbased on serum Creatinine, pat ient age and sex. GFR va luesless than 60 mL/min/ 1.73 square meters a re indicative ofCh ronic Kidney Disease. Values less than 15 mL/min/1.73squa re meters indicate Kidney failure. The calculation for GFR is based on the CK D-EPI (2020) calculat ion. This formulais race indifferent and is the recommended for tank for GFRby the [facility] on for Adults.The GFR will not calculate if th e sex is unknown or if thepatient's ag e is <18 years. CREATININE (test 2.1 mg/dL 0.6-1.5 H code = CREAT) BUN/CREATININE RATIO 29.5 12.0-20.0 H (test code = BUN/CREA) CALCIUM (test code = 9.0 mg/dL 8.5-10.1 N CA) LACTIC DEHYDROGENASE(LDH)[id number] 07:09:00 Test Item Value Reference Range Interpretation Comments LACTIC DEHYDROGENASE(LDH) (test code 221 U/L 87-241 N = LDH) CBC W/AUTO [id number] 06:48:00 Test Item Value Reference Range Interpretation Comments WHITE BLOOD CELL (test code = 9.0 10 3/uL 4.5-11.0 N WBC) RED BLOOD CELL (test code = 3.06 10 6/uL 3.50-5.50 L RBC) HEMOGLOBIN (test code = HGB) 9.3 g/dL 12.0-16.0 L HEMATOCRIT (test code = HCT) 29.0 % 37.0-55.0 L MEAN CELL VOLUME (test code = 95 fL 81-102 N MCV) MEAN CELL HGB (test code = 30.4 pg 26.0-34.0 N MCH) MEAN CELL HGB CONCENTRATION 32.1 g/dL 31.0-37.0 N (test code = MCHC) RED CELL DISTRIBUTION WIDTH 17.4 % 11.6-14.4 H (test code = RDW) PLATELET COUNT (test code = 260 10 3/uL 150-400 N PLT) MEAN PLATELET VOLUME (test 12.3 fL 9.0-12.6 N code = MPV) NEUTROPHIL % (test code = NT%) 80.7 % 33.0-76.0 H IMMATURE GRANULOCYTE % (test 0.4 % 0.0-1.0 N code = IG%) LYMPHOCYTE % (test code = LY%) 9.2 % 14.0-56.4 L MONOCYTE % (test code = MO%) 7.1 % 0.0-12.9 N EOSINOPHIL % (test code = EO%) 2.4 % 0.0-7.0 N BASOPHIL % (test code = BA%) 0.2 % 0-2.0 N NUCLEATED RBC % (test code = 0.0 % 0-0.2 N NRBC%) NEUTROPHIL # (test code = NT#) 7.23 10 3/uL 1.5-7.0 H IMMATURE GRANULOCYTE # (test 0.040 x10 3/uL 0.000-0.100 N code = IG#) LYMPHOCYTE # (test code = LY#) 0.83 10 3/uL 1.50-4.00 L MONOCYTE # (test code = MO#) 0.64 10 3/uL 0.20-0.80 N EOSINOPHIL # (test code = EO#) 0.22 10 3/uL 0.0-0.5 N BASOPHIL # (test code = BA#) 0.02 10 3/uL 0.0-0.1 N NUCLEATED RBC # (test code = 0.000 10 3/uL 0.000-0.012 N NRBC#) FLUID [id number] 00:20:00 Test Item Value Reference Range Interpretation Comments FLUID GLUCOSE (test 124 mg/dL See_Comment GLUCOSE BODY FLUID code = GLUFL) REFERENCE RANG E HAS NOT BEEN ESTABLISHE D [Automated mess age] The system which ge nerated this result tra nsmitted reference range : (). The reference range was not used to interpr et this result as normal/abnormal . BODY FLUID SOURCE 2 PleuralFLUID [id number] 00:20:00 Test Item Value Reference Range Interpretation Comments FLUID PROTEIN < 2.0 gram/dL See_Comment NO REFERENCE RANGE (test code = ESTABLISHED FOR BODY PROTFL) FLUID TOTAL PRO TEIN [Automated mess age] The system whic h generated this result transmitted ref erence range: (). The reference range was not used to int erpret this result as normal/abnormal . BODY FLUID SOURCE 2 PleuralFLUID [id number] 00:20:00 Test Item Value Reference Range Interpretation Comments FLUID LDH (test 60 IUnit/L See_Comment NO REFERENCE RANGE code = LDHFL) ESTABLISHED FO R LDH ON BODY FLUIDS [Au tomated message] The sy stem which generated this result transmit vero reference range : (). The reference range was not used to interpr et this result as normal/abnormal . BODY FLUID SOURCE 2 Pleural- US THORACENTESIS [id number] 18:29:00 [facility] : 1935 Sex: FPatient Name: CASEY LYONS Unit No: [id number] EXAMS: CPT CODE: [id number] US THORACENTESIS W/IMAG 15351 EXAMINATION: IMAGE-GUIDED RIGHT THORACENTESIS. INDICATION/HISTORY: 87 years -old Female with pleural effusion right LOCATION CODE: A1 COMPARISON: None HEAD OF MATHEMATICS: Baron Aftab MD SEDATION: Local Anesthesia. CONTRAST: None. TECHNIQUE: Procedure details including risk, benefits, and complications were thoroughly discussed with the patient or patient's family. Patient or patient's family voiced understanding and gave both written and verbal consent. Prior to beginning the procedure, [place] Protocol was used to confirm the patient's identity and planned procedure. Maximum sterile barriers including cap, mask, hand hygiene, sterile gloves, sterile gown, large sterile drape and cutaneous antisepsiswere used. The patient's abdomen was examined with ultrasound and a suitable pocket of fluid in the right posterior chest was identified. The overlying skin was anesthetized with lidocaine. Using real-time ultrasound guidance, a centesis needle was advanced into the fluid. Approximately 0.9 L of straw colored fluid was drained. At the conclusion of the procedure, the catheter was removed and a sterile dressing applied to the site. FINDINGS: Preprocedure Ultrasound demonstrated a large amount of pleural fluid. IMPRESSION: Successful image-guided right thoracentesis. Thank you for your consultation to [facility] department of interventional radiology. at 182 Reported and signed by: Baron Aftab MD CC: No Primary or Family Physician; Alden Rosas MD; Linda Whitaker MD Technologist: Martha Pascual Probe: Trscr Dt/Tm: 02/14/2023 (1828) by:[email or web address] Electronic Signature Date/Time: 02/14/2023 (1828)Orig Print D/T: S:02/14/2023 (183) Name: JAMIL LYONSKya [facility] [place] Phys: [place] [address] : 1935 Age: 87 Sex: [place] [phone] Loc: NC.6301 1 Exam Date: 02/14/2023 Status: ADM IN PH: FAX: PAGE 1 Signed Report- XR CHEST 1 V 2023-02-14 14:59:00 [facility] : 1935 Sex: FPatient Name: CASEY LYONS Unit No: [id number] EXAMS: CPT CODE: [id number] XR CHEST 1 V 60669 Location: [facility] EXAM: - XR CHEST 1 V INDICATION: S/P RIGHT THORACENTESIS COMPARISON: 02/12/2023 TECHNIQUE: AP Chest FINDINGS: Lines, tubes and hardware: None. Lungs and pleura: There is a small to moderate left-sided pleural effusion and left lower lobe/retrocardiac opacities. There are mild right basilar opacit ies and a trace right-sided pleural effusion. There are few scattered prominent interstitial markings, favored represent scarring and/or underlying emphysematous change. No appreciable pneumothorax. Heart/mediastinum: The heart size is borderline enlarged. Atherosclerotic calcifications overlie the aortic knob. Bones/soft tissues: No acute bony abnormality. IMPRESSION: 1. Interval decrease in size ofa right-sided pleural effusion, now trace. 2. Small to moderate left-sided pleural effusion, approximately unchanged. 3. Persistent left lower lobe/retrocardiac opacities, which may reflect atelectasisand/or consolidation. 4. Mild right basilar opacities, favored to represent atelectasis. at 1459 Reported and signed by: Froilan Price MD CC: No Primary or Family Physician; Linda Whitaker MD; Sera MALONEY Technologist: Rufino Real Fluoro Time: DAP (Gy m2): Air Kerma (mGy): Trscr Dt/Tm: 02/14/2023 (4164) by:[email or web address] Electronic Signature Date/Time: 02/14/2023 (082)Orig Print D/T: S: 02/14/2023 (1504) Name: CASEY LYONS [facility] Phys: MICHAEL - Sera Dow [address] : 1935 Age: 87 Sex: [place] [phone] Loc: NC.6301 1 Exam Date: 02/14/2023 Status: ADM IN PH: FAX: PAGE 1 Signed Report- CT CHEST W/O [id number] 08:25:00 [facility] 1935 Sex: FPatient Name: CASEY LYONS Unit No: [id number] EXAMS: CPT CODE: [id number] CT CHEST W/O CONTRAST [id number] EXAM: CT CHEST WITHOUT CONTRAST INDICATION: effusion LOCATION: A1 COMPARISON: None available TECHNIQUE: Volumetric CT acquisition of the chest with no intravenous contrast. All CT scans are performedusing radiation dose reduction technique. Technical factors are evaluated and adjusted to insure appr opriate moderation of exposure. Automated dose management technology is applied to adjust the radiation dose to minimize exposure while achieving a diagnostic quality image. FINDINGS: Lines and Tubes: None. Lower Neck: The visible portions or the lower neck and thyroid are unremarkable. Heart and Great Vessels: Atherosclerotic calcifications are seen in the thoracic aorta and coronary arteries. The heart is enlarged. There is no pericardial effusion. Lymph Nodes: No mediastinal, axillary or internalmammary lymphadenopathy. Evaluation for hilar adenopathy is limited without intravenous contrast. Lungs/pleura: Large bilateral pleural effusions are present with near complete compressive atelectasis of the bilateral lower lobes. The aerated portions of lung appear unremarkable. No pneumothorax is seen. Upper abdomen: Unremarkable. Bones and Soft Tissues: Unremarkable. IMPRESSION: 1. Large bilateral pleural effusions with underlying compressive atelectasis. 2. Cardiomegaly. at 0825 Reported and signed by: Varsha Thompson M.D. [facility] [place] [place] [address] : 1935 Age: 87 Sex: [place] [id number] Loc: [id number] 1 Exam Date: 02/13/2023 Status: ADM IN PH: FAX: PAGE 1 Signed Report (CONTINUED) Patient Name: CASEY LYONS Unit No: [id number] EXAMS: CPT CODE: [id number] CT CHEST W/O CONTRAST 65059 (Continued) CC: No Primary orFamily Physician; Alden Rosas MD; Linda Whitaker MD Technologist: Scot Murphy CTDI: 7.66 DLP: 292.0 Trscr Dt/Tm: 02/14/2023 (824) by:[email or web address] Electronic Signature Date/Time: 02/14/2023 (824)Orig Print D/T: S: 02/14/2023 (827) Name: CASEY LYONS [facility] Phys: [place] [id number] : 1935 Age: 87 Sex: [place] [id number] Loc: NC.[id number] 1 Exam Date: 02/13/2023 Status: ADM IN PH: FAX: PAGE 2 Signed ReportBASIC METABOLIC [id number] 07:52:00 Test Item Value Reference Range Interpretation Comments SODIUM (test code = 138 mmol/L 135-145 N NA) POTASSIUM (test code 3.9 mmol/L 3.5-5.1 N = K) CHLORIDE (test code 106 mmol/L 98-107 N = CL) CARBON DIOXIDE (test 28 mmol/L 21-32 N code = CO2) ANION GAP (test code 7.9 2.0-16.0 N = GAP) GLUCOSE (test code = 103 mg/dL 65-99 H GLU) BLOOD UREA NITROGEN 52 mg/dL 4-23 H (test code = BUN) GLOMERULAR 21 ml/min >60 L The Glomerular FILTRATION RATE Filtration R ate is a (test code = GFR) calculated parameterbased on serum Creatinine, pat ient age and sex. GFR va luesless than 60 mL/min/ 1.73 square meters a re indicative ofCh ronic Kidney Disease. Values less than 15 mL/min/1.73squa re meters indicate Kidney failure. The calculation for GFR is based on the CK D-EPI (2020) calculat ion. This formulais race indifferent and is the recommended for tank for GFRby the [facility] on for Adults.The GFR will not calculate if th e sex is unknown or if thepatient's ag e is <18 years. CREATININE (test 2.2 mg/dL 0.6-1.5 H code = CREAT) BUN/CREATININE RATIO 23.6 12.0-20.0 H (test code = BUN/CREA) CALCIUM (test code = 8.7 mg/dL 8.5-10.1 N CA) CBC W/AUTO [id number] 07:31:00 Test Item Value Reference Range Interpretation Comments WHITE BLOOD CELL (test code = 6.4 10 3/uL 4.5-11.0 N WBC) RED BLOOD CELL (test code = 2.86 10 6/uL 3.50-5.50 L RBC) HEMOGLOBIN (test code = HGB) 8.5 g/dL 12.0-16.0 L HEMATOCRIT (test code = HCT) 27.0 % 37.0-55.0 L MEAN CELL VOLUME (test code = 94 fL 81-102 N MCV) MEAN CELL HGB (test code = 29.7 pg 26.0-34.0 N MCH) MEAN CELL HGB CONCENTRATION 31.5 g/dL 31.0-37.0 N (test code = MCHC) RED CELL DISTRIBUTION WIDTH 17.4 % 11.6-14.4 H (test code = RDW) PLATELET COUNT (test code = 254 10 3/uL 150-400 N PLT) MEAN PLATELET VOLUME (test 11.9 fL 9.0-12.6 N code = MPV) NEUTROPHIL % (test code = NT%) 69.1 % 33.0-76.0 N IMMATURE GRANULOCYTE % (test 0.3 % 0.0-1.0 N code = IG%) LYMPHOCYTE % (test code = LY%) 15.2 % 14.0-56.4 N MONOCYTE % (test code = MO%) 11.2 % 0.0-12.9 N EOSINOPHIL % (test code = EO%) 3.9 % 0.0-7.0 N BASOPHIL % (test code = BA%) 0.3 % 0-2.0 N NUCLEATED RBC % (test code = 0.0 % 0-0.2 N NRBC%) NEUTROPHIL # (test code = NT#) 4.44 10 3/uL 1.5-7.0 N IMMATURE GRANULOCYTE # (test 0.020 x10 3/uL 0.000-0.100 N code = IG#) LYMPHOCYTE # (test code = LY#) 0.98 10 3/uL 1.50-4.00 L MONOCYTE # (test code = MO#) 0.72 10 3/uL 0.20-0.80 N EOSINOPHIL # (test code = EO#) 0.25 10 3/uL 0.0-0.5 N BASOPHIL # (test code = BA#) 0.02 10 3/uL 0.0-0.1 N NUCLEATED RBC # (test code = 0.000 10 3/uL 0.000-0.012 N NRBC#) COVID 19 Asymptomatic IH [id number] 16:43:00 Test Item Value Reference Range Interpretation Comments COVID 19 Negative Negative Negative result s do not Asymptomatic IH AG preclude V (test code = infection andsh ould not COVNONPUIAG) be used as the sole basis for treatment o r otherpatient ma nagement decisions. Nega tive results must be combined with clinical observations, p atient history, andepidemiologi valerie information. COMPREHENSIVE METABOLIC [id number] 12:00:00 Test Item Value Reference Range Interpretation Comments SODIUM (test code 138 mmol/L 135-145 N = NA) POTASSIUM (test 3.9 mmol/L 3.5-5.1 N code = K) CHLORIDE (test 106 mmol/L 98-107 N code = CL) CARBON DIOXIDE 24 mmol/L 21-32 N (test code = CO2) ANION GAP (test 11.9 2.0-16.0 N code = GAP) GLUCOSE (test code 96 mg/dL 65-99 N = GLU) BLOOD UREA 47 mg/dL 4-23 H NITROGEN (test code = BUN) GLOMERULAR 23 ml/min >60 L The Glomerular Filtration FILTRATION RATE Rate is a ca lculated (test code = GFR) parameterb ased on serum Creatinine, pat ient age and sex. GFR va luesless than 60 mL/min/ 1.73 square meters a re indicative ofCh ronic Kidney Disease. Values less than 15 mL/min/1.73squa re meters indicate Kidney failure. The calculation forGFR is based on the CK D-EPI (2020) calculat ion. This formulais race indifferent and is the recommended for tank [facility]by [facility].The GFR will not ca lculate if the sex is unkn own or if thepatient's ag e is <18 years. CREATININE (test 2.1 mg/dL 0.6-1.5 H code = CREAT) BUN/CREATININE 22.4 12.0-20.0 H RATIO (test code = BUN/CREA) TOTAL PROTEIN 5.7 g/dL 6.4-8.2 L (test code = PROT) ALBUMIN (test code 2.4 g/dL 3.4-5.0 L = ALB) CALCIUM (test code 9.2 mg/dL 8.5-10.1 N = CA) BILIRUBIN TOTAL 0.4 mg/dL 0.2-1.2 N Use of this assay is not (test code = BILT) recommend ed for patients undergoingtreat ment with Eltrombopag due to the potential for falselyelevated results. SGOT/AST (test 25 U/L 15-37 N code = AST) SGPT/ALT (test 29 U/L 6-50 N code = ALT) ALKALINE 91 U/L 45-117 N PHOSPHATASE (test code = ALKP) CBC W/AUTO [id number] 11:23:00 Test Item Value Reference Range Interpretation Comments WHITE BLOOD CELL (test code = 7.9 10 3/uL 4.5-11.0 N WBC) RED BLOOD CELL (test code = 2.91 10 6/uL 3.50-5.50 L RBC) HEMOGLOBIN (test code = HGB) 8.8 g/dL 12.0-16.0 L HEMATOCRIT (test code = HCT) 27.6 % 37.0-55.0 L MEAN CELL VOLUME (test code = 95 fL 81-102 N MCV) MEAN CELL HGB (test code = 30.2 pg 26.0-34.0 N MCH) MEAN CELL HGB CONCENTRATION 31.9 g/dL 31.0-37.0 N (test code = MCHC) RED CELL DISTRIBUTION WIDTH 17.9 % 11.6-14.4 H (test code = RDW) PLATELET COUNT (test code = 254 10 3/uL 150-400 N PLT) MEAN PLATELET VOLUME (test 11.9 fL 9.0-12.6 N code = MPV) NEUTROPHIL % (test code = NT%) 79.9 % 33.0-76.0 H IMMATURE GRANULOCYTE % (test 0.4 % 0.0-1.0 N code = IG%) LYMPHOCYTE % (test code = LY%) 7.4 % 14.0-56.4 L MONOCYTE % (test code = MO%) 8.7 % 0.0-12.9 N EOSINOPHIL % (test code = EO%) 3.3 % 0.0-7.0 N BASOPHIL % (test code = BA%) 0.3 % 0-2.0 N NUCLEATED RBC % (test code = 0.0 % 0-0.2 N NRBC%) NEUTROPHIL # (test code = NT#) 6.29 10 3/uL 1.5-7.0 N IMMATURE GRANULOCYTE # (test 0.030 x10 3/uL 0.000-0.100 N code = IG#) LYMPHOCYTE # (test code = LY#) 0.58 10 3/uL 1.50-4.00 L MONOCYTE # (test code = MO#) 0.68 10 3/uL 0.20-0.80 N EOSINOPHIL # (test code = EO#) 0.26 10 3/uL 0.0-0.5 N BASOPHIL # (test code = BA#) 0.02 10 3/uL 0.0-0.1 N NUCLEATED RBC # (test code = 0.000 10 3/uL 0.000-0.012 N NRBC#) - XR CHEST 2 [id number] 09:05:00 [facility] 1935 Sex: FPatient Name: CASEY LYONS Unit No: [id number] EXAMS: CPT CODE: [id number] XR CHEST 2 V 02391 Location: 9 EXAM: - XR CHEST 2 V INDICATION: chf COMPARISON: 02/10/2023 TECHNIQUE: Frontal and lateral views of the chest. FINDINGS: Lines, tubes and hardware: None. Lungs and pleura: There is a similar appearance of bilateral infrahilar, lower lobe and retrocardiac opacities. When accounting for differences in technique and positioning, similar appearance of small to moderate bilateral pleural effusions.No appreciable pneumothorax. Heart/mediastinum: The cardiomediastinal silhouette is enlarged, but stable. Bones/soft tissues: There is multilevel thoracic spondylosis. No acute bony abnormality is identified. IMPRESSION: When accounting for differences in technique and positioning, there is a similarappearance of bilateral perihilar, lower lobe and retrocardiac opacities and small to moderate bilateral pleural effusions. at 0905 Reported and signed by: Froilan Price MD CC: No Primary or Family Physician; Ministerio Witt MD; Linda Whitaker MD Technologist: Soni Stevenson Fluoro Time: DAP (Gy m2): Air Kerma (mGy): Trscr Dt/Tm: 02/12/2023 (904) by:[email or web address] Electronic Signature Date/Time: 02/12/2023 (904)Orig Print D/T: S : 02/12/2023 (907) Name: CASEY LYONS [facility] [place] Phys: Ministerio Azul [id number] : 1935 Age: 87 Sex: [place] [id number] Loc: NC.6301 1 Exam Date: 02/12/2023 Status: ADM IN PH: FAX: PAGE 1 Signed ReportCOMPREHENSIVE METABOLIC [id number] 08:25:00 Test Item Value Reference Range Interpretation Comments SODIUM (test code 138 mmol/L 135-145 N = NA) POTASSIUM (test 3.7 mmol/L 3.5-5.1 N code = K) CHLORIDE (test 110 mmol/L 98-107 H code = CL) CARBON DIOXIDE 21 mmol/L 21-32 N (test code = CO2) ANION GAP (test 10.7 2.0-16.0 N code = GAP) GLUCOSE (test code 99 mg/dL 65-99 N = GLU) BLOOD UREA 48 mg/dL 4-23 H NITROGEN (test code = BUN) GLOMERULAR 23 ml/min >60 L The Glomerular Filtration FILTRATION RATE Rate is a ca lculated (test code = GFR) parameterb ased on serum Creatinine, pat ient age and sex. GFR va luesless than 60 mL/min/ 1.73 square meters a re indicative ofCh ronic Kidney Disease. Values less than 15 mL/min/1.73squa re meters indicate Kidney failure. The calculation forGFR is based on the CK D-EPI (2020) calculat ion. This formulais race indifferent and is the recommended for tank for [facility]by the [facility].The GFR will not ca lculate if the sex is unkn own or if thepatient's ag e is <18 years. CREATININE (test 2.1 mg/dL 0.6-1.5 H code = CREAT) BUN/CREATININE 22.9 12.0-20.0 H RATIO (test code = BUN/CREA) TOTAL PROTEIN 5.3 g/dL 6.4-8.2 L (test code = PROT) ALBUMIN (test code 2.3 g/dL 3.4-5.0 L = ALB) CALCIUM (test code 8.9 mg/dL 8.5-10.1 N = CA) BILIRUBIN TOTAL 0.7 mg/dL 0.2-1.2 N Use of this assay is not (test code = BILT) recommend ed for patients undergoingtreat ment with Eltrombopag due to the potential for falselyelevated results. SGOT/AST (test 26 U/L 15-37 N code = AST) SGPT/ALT (test 28 U/L 6-50 N code = ALT) ALKALINE 85 U/L 45-117 N PHOSPHATASE (test code = ALKP) CBC W/AUTO [id number] 07:59:00 Test Item Value Reference Range Interpretation Comments WHITE BLOOD CELL (test code = 8.7 10 3/uL 4.5-11.0 N WBC) RED BLOOD CELL (test code = 2.81 10 6/uL 3.50-5.50 L RBC) HEMOGLOBIN (test code = HGB) 8.3 g/dL 12.0-16.0 L HEMATOCRIT (test code = HCT) 26.5 % 37.0-55.0 L MEAN CELL VOLUME (test code = 94 fL 81-102 N MCV) MEAN CELL HGB (test code = 29.5 pg 26.0-34.0 N MCH) MEAN CELL HGB CONCENTRATION 31.3 g/dL 31.0-37.0 N (test code = MCHC) RED CELL DISTRIBUTION WIDTH 18.2 % 11.6-14.4 H (test code = RDW) PLATELET COUNT (test code = 210 10 3/uL 150-400 N PLT) MEAN PLATELET VOLUME (test 11.7 fL 9.0-12.6 N code = MPV) NEUTROPHIL % (test code = NT%) 82.6 % 33.0-76.0 H IMMATURE GRANULOCYTE % (test 0.5 % 0.0-1.0 N code = IG%) LYMPHOCYTE % (test code = LY%) 6.4 % 14.0-56.4 L MONOCYTE % (test code = MO%) 8.3 % 0.0-12.9 N EOSINOPHIL % (test code = EO%) 2.1 % 0.0-7.0 N BASOPHIL % (test code = BA%) 0.1 % 0-2.0 N NUCLEATED RBC % (test code = 0.0 % 0-0.2 N NRBC%) NEUTROPHIL # (test code = NT#) 7.15 10 3/uL 1.5-7.0 H IMMATURE GRANULOCYTE # (test 0.040 x10 3/uL 0.000-0.100 N code = IG#) LYMPHOCYTE # (test code = LY#) 0.55 10 3/uL 1.50-4.00 L MONOCYTE # (test code = MO#) 0.72 10 3/uL 0.20-0.80 N EOSINOPHIL # (test code = EO#) 0.18 10 3/uL 0.0-0.5 N BASOPHIL # (test code = BA#) 0.01 10 3/uL 0.0-0.1 N NUCLEATED RBC # (test code = 0.000 10 3/uL 0.000-0.012 N NRBC#) - XR CHEST 1 [id number] 09:50:00 [facility] : 1935 Sex: FPatient Name: CASEY LYONS Unit No: [id number] EXAMS: CPT CODE: [id number] XR CHEST 1 V 52724 Chest one view AP 02/10/2023 9:50 AM CLINICAL INDICATION: Shortness of breath COMPARISON: 02/06/2023 LOCATION: W1 IMPRESSION: There are trace right and small volume left pleural effusions. Adjacent basilar opacities may reflect atelectasis or pneumonia. Cardiomediastinal contours are within normal limits. There is mild pulmonary edema. at 0950 Reported and signed by: Mayo Ware CC: No Primary or Family Physician; Linda Whitaker MD; Darwin Deal MD Technologist: Chaya Latif Time: DAP (Gy m2): Air Kerma (mGy): Trscr Dt/Tm: 02/10/2023 (0950) by:[email or web address] Electronic Signature Date/Time: 02/10/2023 (0950)Orig Print D/T: S: 02/10/2023(5903) [facility] SEAN - Darwin Deal [address] : 1935 Age: 87 [place]: [place] [id number] Loc: NC.6301 1 Exam Date:02/10/2023 Status: ADM IN PH: FAX: PAGE 1 Signed ReportB-TYPE NATRIURETIC [id number] 09:35:00 Test Item Value Reference Range Interpretation Comments B-TYPE NATRIURETIC PEPTIDE (test 3661 pg/mL 0-100 H code = BNP) COMPREHENSIVE METABOLIC [id number] 07:43:00 Test Item Value Reference Range Interpretation Comments SODIUM (test code 135 mmol/L 135-145 N = NA) POTASSIUM (test 4.6 mmol/L 3.5-5.1 code = K) CHLORIDE (test 109 mmol/L 98-107 H code = CL) CARBON DIOXIDE 23 mmol/L 21-32 N (test code = CO2) ANION GAP (test 7.6 2.0-16.0 code = GAP) GLUCOSE (test code 120 mg/dL 65-99 H = GLU) BLOOD UREA 46 mg/dL 4-23 H NITROGEN (test code = BUN) GLOMERULAR 20 ml/min >60 L The Glomerular Filtration FILTRATION RATE Rate is a ca lculated (test code = GFR) parameterb ased on serum Creatinine, pat ient age and sex. GFR va luesless than 60 mL/min/ 1.73 square meters a re indicative ofCh ronic Kidney Disease. Values less than 15 mL/min/1.73squa re meters indicate Kidney failure. The calculation forGFR is based on the CK D-EPI (2020) calculat ion. This formulais race indifferent and is the recommended for tank for GFRby the [facility] Foundation for Adults.The GFR will not ca lculate if the sex is unkn own or if thepatient's ag e is <18 years. CREATININE (test 2.3 mg/dL 0.6-1.5 H code = CREAT) BUN/CREATININE 20.0 12.0-20.0 N RATIO (test code = BUN/CREA) TOTAL PROTEIN 5.4 g/dL 6.4-8.2 L (test code = PROT) ALBUMIN (test code 2.3 g/dL 3.4-5.0 L = ALB) CALCIUM (test code 8.8 mg/dL 8.5-10.1 N = CA) BILIRUBIN TOTAL 0.6 mg/dL 0.2-1.2 N Use of this assay is not (test code = BILT) recommend ed for patients undergoingtreat ment with Eltrombopag due to the potential for falselyelevated results. SGOT/AST (test 34 U/L 15-37 N code = AST) SGPT/ALT (test 35 U/L 6-50 code = ALT) ALKALINE 96 U/L 45-117 PHOSPHATASE (test code = ALKP) CBC W/AUTO [id number] 07:05:00 Test Item Value Reference Range Interpretation Comments WHITE BLOOD CELL (test code = 11.1 10 3/uL 4.5-11.0 H WBC) RED BLOOD CELL (test code = 2.82 10 6/uL 3.50-5.50 L RBC) HEMOGLOBIN (test code = HGB) 8.5 g/dL 12.0-16.0 L HEMATOCRIT (test code = HCT) 26.7 % 37.0-55.0 L MEAN CELL VOLUME (test code = 95 fL 81-102 N MCV) MEAN CELL HGB (test code = 30.1 pg 26.0-34.0 N MCH) MEAN CELL HGB CONCENTRATION 31.8 g/dL 31.0-37.0 N (test code = MCHC) RED CELL DISTRIBUTION WIDTH 18.1 % 11.6-14.4 H (test code = RDW) PLATELET COUNT (test code = 221 10 3/uL 150-400 N PLT) MEAN PLATELET VOLUME (test 12.3 fL 9.0-12.6 N code = MPV) NEUTROPHIL % (test code = NT%) 85.4 % 33.0-76.0 H IMMATURE GRANULOCYTE % (test 0.6 % 0.0-1.0 N code = IG%) LYMPHOCYTE % (test code = LY%) 4.7 % 14.0-56.4 L MONOCYTE % (test code = MO%) 8.7 % 0.0-12.9 N EOSINOPHIL % (test code = EO%) 0.5 % 0.0-7.0 N BASOPHIL % (test code = BA%) 0.1 % 0-2.0 N NUCLEATED RBC % (test code = 0.0 % 0-0.2 N NRBC%) NEUTROPHIL # (test code = NT#) 9.51 10 3/uL 1.5-7.0 H IMMATURE GRANULOCYTE # (test 0.070 x10 3/uL 0.000-0.100 N code = IG#) LYMPHOCYTE # (test code = LY#) 0.52 10 3/uL 1.50-4.00 L MONOCYTE # (test code = MO#) 0.97 10 3/uL 0.20-0.80 H EOSINOPHIL # (test code = EO#) 0.06 10 3/uL 0.0-0.5 N BASOPHIL # (test code = BA#) 0.01 10 3/uL 0.0-0.1 N NUCLEATED RBC # (test code = 0.000 10 3/uL 0.000-0.012 N NRBC#) COMPREHENSIVE METABOLIC [id number] 10:11:00 Test Item Value Reference Range Interpretation Comments SODIUM (test code 137 mmol/L 135-145 N = NA) POTASSIUM (test 3.5 mmol/L 3.5-5.1 N code = K) CHLORIDE (test 107 mmol/L 98-107 N code = CL) CARBON DIOXIDE 22 mmol/L 21-32 N (test code = CO2) ANION GAP (test 11.5 2.0-16.0 N code = GAP) GLUCOSE (test code 103 mg/dL 65-99 H = GLU) BLOOD UREA 50 mg/dL 4-23 H NITROGEN (test code = BUN) GLOMERULAR 18 ml/min >60 L The Glomerular Filtration FILTRATION RATE Rate is a ca lculated (test code = GFR) parameterb ased on serum Creatinine, pat ient age and sex. GFR va luesless than 60 mL/min/ 1.73 square meters a re indicative ofCh ronic Kidney Disease. Values less than 15 mL/min/1.73squa re meters indicate Kidney failure. The calculation forGFR is based on the CK D-EPI (2020) calculat ion. This formulais race indifferent and is the recommended for tank for [facility]by the [facility].The GFR will not ca lculate if the sex is unkn own or if thepatient's ag e is <18 years. CREATININE (test 2.5 mg/dL 0.6-1.5 H code = CREAT) BUN/CREATININE 20.0 12.0-20.0 N RATIO (test code = BUN/CREA) TOTAL PROTEIN 5.1 g/dL 6.4-8.2 L (test code = PROT) ALBUMIN (test code 2.3 g/dL 3.4-5.0 L = ALB) CALCIUM (test code 8.1 mg/dL 8.5-10.1 L = CA) BILIRUBIN TOTAL 0.7 mg/dL 0.2-1.2 N Use of this assay is not (test code = BILT) recommend ed for patients undergoingtreat ment with Eltrombopag due to the potential for falselyelevated results. SGOT/AST (test 19 U/L 15-37 N code = AST) SGPT/ALT (test 18 U/L 6-50 N code = ALT) ALKALINE 58 U/L 45-117 N PHOSPHATASE (test code = ALKP) PT. REFUSED AM LAB NURSE ELSI WAS NOTIFIED @ 0716 [facility] W/AUTO DIFF 2023-02-09 09:43:00 Test Item Value Reference Range Interpretation Comments WHITE BLOOD CELL (test code = 7.7 10 3/uL 4.5-11.0 N WBC) RED BLOOD CELL (test code = 2.72 10 6/uL 3.50-5.50 L RBC) HEMOGLOBIN (test code = HGB) 8.1 g/dL 12.0-16.0 L HEMATOCRIT (test code = HCT) 25.3 % 37.0-55.0 L MEAN CELL VOLUME (test code = 93 fL 81-102 N MCV) MEAN CELL HGB (test code = 29.8 pg 26.0-34.0 N MCH) MEAN CELL HGB CONCENTRATION 32.0 g/dL 31.0-37.0 N (test code = MCHC) RED CELL DISTRIBUTION WIDTH 18.2 % 11.6-14.4 H (test code = RDW) PLATELET COUNT (test code = 179 10 3/uL 150-400 N PLT) MEAN PLATELET VOLUME (test 12.1 fL 9.0-12.6 N code = MPV) NEUTROPHIL % (test code = NT%) 79.2 % 33.0-76.0 H IMMATURE GRANULOCYTE % (test 0.4 % 0.0-1.0 N code = IG%) LYMPHOCYTE % (test code = LY%) 9.4 % 14.0-56.4 L MONOCYTE % (test code = MO%) 10.1 % 0.0-12.9 N EOSINOPHIL % (test code = EO%) 0.8 % 0.0-7.0 N BASOPHIL % (test code = BA%) 0.1 % 0-2.0 N NUCLEATED RBC % (test code = 0.0 % 0-0.2 N NRBC%) NEUTROPHIL # (test code = NT#) 6.07 10 3/uL 1.5-7.0 N IMMATURE GRANULOCYTE # (test 0.030 x10 3/uL 0.000-0.100 N code = IG#) LYMPHOCYTE # (test code = LY#) 0.72 10 3/uL 1.50-4.00 L MONOCYTE # (test code = MO#) 0.77 10 3/uL 0.20-0.80 N EOSINOPHIL # (test code = EO#) 0.06 10 3/uL 0.0-0.5 N BASOPHIL # (test code = BA#) 0.01 10 3/uL 0.0-0.1 N NUCLEATED RBC # (test code = 0.000 10 3/uL 0.000-0.012 N NRBC#) PT REFUSED AM LABS NURSE CHAKALino WAS NOTIFIED @ 0514VITAMIN D 1,25-DIHYDROXY 2023-02-08 16:09:00 Test Item Value Reference Range Interpretation Comments VITAMIN D 31.8 pg/mL 24.8-81.5 Performed At: B N 1,25-DIHYDROXY (test [facility] [id number] code = [id number]) [place] Supriya borges [place] [id number] clifton Catherine MD Ph:[phone] COMPREHENSIVE METABOLIC [id number] 08:36:00 Test Item Value Reference Range Interpretation Comments SODIUM (test code 136 mmol/L 135-145 N = NA) POTASSIUM (test 3.5 mmol/L 3.5-5.1 N code = K) CHLORIDE (test 107 mmol/L 98-107 N code = CL) CARBON DIOXIDE 22 mmol/L 21-32 N (test code = CO2) ANION GAP (test 10.5 2.0-16.0 N code = GAP) GLUCOSE (test code 101 mg/dL 65-99 H = GLU) BLOOD UREA 54 mg/dL 4-23 H NITROGEN (test code = BUN) GLOMERULAR 20 ml/min >60 L The Glomerular Filtration FILTRATION RATE Rate is a ca lculated (test code = GFR) parameterb ased on serum Creatinine, pat ient age and sex. GFR va luesless than 60 mL/min/ 1.73 square meters a re indicative ofCh ronic Kidney Disease. Values less than 15 mL/min/1.73squa re meters indicate Kidney failure. The calculation forGFR is based on the CK D-EPI (2020) calculat ion. This formulais race indifferent and is the recommended for tank for [facility]by the [facility].The GFR will not ca lculate if the sex is unkn own or if thepatient's ag e is <18 years. CREATININE (test 2.3 mg/dL 0.6-1.5 H code = CREAT) BUN/CREATININE 23.5 12.0-20.0 H RATIO (test code = BUN/CREA) TOTAL PROTEIN 4.8 g/dL 6.4-8.2 L (test code = PROT) ALBUMIN (test code 2.2 g/dL 3.4-5.0 L = ALB) CALCIUM (test code 8.5 mg/dL 8.5-10.1 N = CA) BILIRUBIN TOTAL 0.9 mg/dL 0.2-1.2 N Use of this assay is not (test code = BILT) recommend ed for patients undergoingtreat ment with Eltrombopag due to the potential for falselyelevated results. SGOT/AST (test 21 U/L 15-37 N code = AST) SGPT/ALT (test 13 U/L 6-50 N code = ALT) ALKALINE 46 U/L 45-117 N PHOSPHATASE (test code = ALKP) CBC W/AUTO [id number] 08:15:00 Test Item Value Reference Range Interpretation Comments WHITE BLOOD CELL (test code = 8.8 10 3/uL 4.5-11.0 N WBC) RED BLOOD CELL (test code = 2.66 10 6/uL 3.50-5.50 L RBC) HEMOGLOBIN (test code = HGB) 7.9 g/dL 12.0-16.0 L HEMATOCRIT (test code = HCT) 24.5 % 37.0-55.0 L MEAN CELL VOLUME (test code = 92 fL 81-102 N MCV) MEAN CELL HGB (test code = 29.7 pg 26.0-34.0 N MCH) MEAN CELL HGB CONCENTRATION 32.2 g/dL 31.0-37.0 N (test code = MCHC) RED CELL DISTRIBUTION WIDTH 18.1 % 11.6-14.4 H (test code = RDW) PLATELET COUNT (test code = 164 10 3/uL 150-400 N PLT) MEAN PLATELET VOLUME (test 12.6 fL 9.0-12.6 N code = MPV) NEUTROPHIL % (test code = NT%) 80.3 % 33.0-76.0 H IMMATURE GRANULOCYTE % (test 0.7 % 0.0-1.0 N code = IG%) LYMPHOCYTE % (test code = LY%) 8.6 % 14.0-56.4 L MONOCYTE % (test code = MO%) 9.5 % 0.0-12.9 N EOSINOPHIL % (test code = EO%) 0.8 % 0.0-7.0 N BASOPHIL % (test code = BA%) 0.1 % 0-2.0 N NUCLEATED RBC % (test code = 0.0 % 0-0.2 N NRBC%) NEUTROPHIL # (test code = NT#) 7.06 10 3/uL 1.5-7.0 H IMMATURE GRANULOCYTE # (test 0.060 x10 3/uL 0.000-0.100 N code = IG#) LYMPHOCYTE # (test code = LY#) 0.76 10 3/uL 1.50-4.00 L MONOCYTE # (test code = MO#) 0.84 10 3/uL 0.20-0.80 H EOSINOPHIL # (test code = EO#) 0.07 10 3/uL 0.0-0.5 N BASOPHIL # (test code = BA#) 0.01 10 3/uL 0.0-0.1 N NUCLEATED RBC # (test code = 0.000 10 3/uL 0.000-0.012 N NRBC#) CBC W/AUTO [id number] 08:12:00 Test Item Value Reference Range Interpretation Comments WHITE BLOOD CELL (test code = 8.5 10 3/uL 4.5-11.0 N WBC) RED BLOOD CELL (test code = 3.03 10 6/uL 3.50-5.50 L RBC) HEMOGLOBIN (test code = HGB) 9.1 g/dL 12.0-16.0 L HEMATOCRIT (test code = HCT) 28.0 % 37.0-55.0 L MEAN CELL VOLUME (test code = 92 fL 81-102 N MCV) MEAN CELL HGB (test code = 30.0 pg 26.0-34.0 N MCH) MEAN CELL HGB CONCENTRATION 32.5 g/dL 31.0-37.0 N (test code = MCHC) RED CELL DISTRIBUTION WIDTH 17.9 % 11.6-14.4 H (test code = RDW) PLATELET COUNT (test code = 181 10 3/uL 150-400 N PLT) MEAN PLATELET VOLUME (test 11.7 fL 9.0-12.6 N code = MPV) NEUTROPHIL % (test code = NT%) 75.7 % 33.0-76.0 N IMMATURE GRANULOCYTE % (test 0.4 % 0.0-1.0 N code = IG%) LYMPHOCYTE % (test code = LY%) 9.6 % 14.0-56.4 L MONOCYTE % (test code = MO%) 11.5 % 0.0-12.9 N EOSINOPHIL % (test code = EO%) 2.4 % 0.0-7.0 N BASOPHIL % (test code = BA%) 0.4 % 0-2.0 N NUCLEATED RBC % (test code = 0.0 % 0-0.2 N NRBC%) NEUTROPHIL # (test code = NT#) 6.44 10 3/uL 1.5-7.0 N IMMATURE GRANULOCYTE # (test 0.030 x10 3/uL 0.000-0.100 N code = IG#) LYMPHOCYTE # (test code = LY#) 0.82 10 3/uL 1.50-4.00 L MONOCYTE # (test code = MO#) 0.98 10 3/uL 0.20-0.80 H EOSINOPHIL # (test code = EO#) 0.20 10 3/uL 0.0-0.5 N BASOPHIL # (test code = BA#) 0.03 10 3/uL 0.0-0.1 N NUCLEATED RBC # (test code = 0.000 10 3/uL 0.000-0.012 N NRBC#) COMPREHENSIVE METABOLIC [id number] 07:03:00 Test Item Value Reference Range Interpretation Comments SODIUM (test code 131 mmol/L 135-145 L = NA) POTASSIUM (test 3.7 mmol/L 3.5-5.1 N code = K) CHLORIDE (test 107 mmol/L 98-107 N code = CL) CARBON DIOXIDE 20 mmol/L 21-32 L (test code = CO2) ANION GAP (test 7.7 2.0-16.0 N code = GAP) GLUCOSE (test code 93 mg/dL 65-99 N = GLU) BLOOD UREA 61 mg/dL 4-23 H NITROGEN (test code = BUN) GLOMERULAR 20 ml/min >60 L The Glomerular Filtration FILTRATION RATE Rate is a ca lculated (test code = GFR) parameterb ased on serum Creatinine, pat ient age and sex. GFR va luesless than 60 mL/min/ 1.73 square meters a re indicative ofCh ronic Kidney Disease. Values less than 15 mL/min/1.73squa re meters indicate Kidney failure. The calculation forGFR is based on the CK D-EPI (2020) calculat ion. This formulais race indifferent and is the recommended for tank for GFRby the [facility] for Adults.The GFR will not ca lculate if the sex is unkn own or if thepatient's ag e is <18 years. CREATININE (test 2.3 mg/dL 0.6-1.5 H code = CREAT) BUN/CREATININE 26.5 12.0-20.0 H RATIO (test code = BUN/CREA) TOTAL PROTEIN 5.2 g/dL 6.4-8.2 L (test code = PROT) ALBUMIN (test code 2.5 g/dL 3.4-5.0 L = ALB) CALCIUM (test code 8.5 mg/dL 8.5-10.1 N = CA) BILIRUBIN TOTAL 1.0 mg/dL 0.2-1.2 N Use of this assay is not (test code = BILT) recommend ed for patients undergoingtreat ment with Eltrombopag due to the potential for falselyelevated results. SGOT/AST (test 42 U/L 15-37 H code = AST) SGPT/ALT (test 17 U/L 6-50 N code = ALT) ALKALINE 50 U/L 45-117 N PHOSPHATASE (test code = ALKP) HGBA1C - GLYCOSYLATED [id number] 02:08:00 Test Item Value Reference Range Interpretation Comments GLYCOSYLATED HEMOGLOBIN 5.2 % 4.8-5.6 Pre diabetes: 5.7 - (HA1C) (test code = 6.4 Diab etes: >6.4 GLYHGB) Glycemic contro l for adults with halle betes: <7.0Performed A t: HD [facility] [address] [place], [place] [address]Gmg jcarlos Hodges MD Ph:[phone] - DUP EXTRACRANIAL [id number] 01:21:00 [facility]PRESS[facility]SKya : 1935 Sex: FPatient Name: JAMIL LYONSKya Unit No: [id number] EXAMS: CPT CODE: [id number] DUP EXTRACRANIAL RADAMES [id number]: - DUP EXTRACRANIAL RADAMES LOCATION: H101 INDICATION/CLINICAL HISTORY: CVA COMPARISON: None available. TECHNIQUE: 2D real time grayscale and color flow Doppler images of the extracranial carotid artery systems and vertebral arteries were acquired. In addition, Doppler spectral waveforms and peak systolic velocities were acquired. FINDINGS: There is dense shadowing calcified plaque in the right carotid bulb. This results in 82% stenosis in the bulb on transaxial area measurement. There is moderateshadowing plaque in the left carotid bulb and proximal ICA. This results in 46% stenosis in the proximal ICA on transaxial area measurement. CAROTID VELOCITIES MEASUREMENTS: RIGHT CCA - PSV: 112 cm/secRIGHT ICA - PSV: 211 cm/sec RIGHT ECA - PSV: 262 cm/sec RIGHT ICA/CCA Ratio: 1.9 LEFT CCA - PSV: 229cm/sec LEFT ICA - PSV: 102 cm/sec LEFT ECA - PSV: 120 cm/sec LEFT ICA/CCA Ratio: 2.2 VERTEBRAL ARTERIES FLOW: RIGHT VERTEBRAL - Antegrade LEFT VERTEBRAL - Antegrade IMPRESSION: 1. Severe dense shadowing calcified plaque in the right carotid bulb results in 50-69 % stenosis based on elevated velocitiescriteria. There is up to 82% area stenosis on transaxial grayscale measurement. Consider further evaluation with CTA. 2. Hemodynamically significant stenosis in left ICA. at 0121 Reported and signed by: Real Wei MD [facility] [id number] [place] [address] : 1935 Age: 87 Sex: [place] [id number] Loc: NC.6301 1 Exam Date: 02/06/2023 Status: ADM IN PH:FAX: PAGE 1 Signed Report (CONTINUED) Patient Name: CASEY LYONS Unit No: [id number] EXAMS: CPT CODE: [id number] DUP EXTRACRANIAL RADAMES 44466 (Continued) CC: No Primary or Family Physician; Linda Hull; Edilberto Payton MD Technologist: Martha Psacual Probe: Trscr Dt/Tm: 02/07/2023 (012) by:[email or web address] Electronic Signature Date/Time: 02/07/2023 (012)Orig Print D/T: S: 02/07/2023 (0124) Name: CASEY LYONS [facility] [place] Phys: JOSHUAMED.Dusty [place] [address] : 1935 Age: 87 Sex: [place] [id number] Loc: NC.6301 1 Exam Date: 02/06/2023 Status: ADM IN PH: FAX: PAGE 2 Signed ReportHGB [id number] 23:07:00 Test Item Value Reference Range Interpretation Comments HEMOGLOBIN (test code = 6.8 g/dL 12.0-16.0 LL Crit ical Value HGB) reported toFirs t Name: MONISHAJOSI Last Name:RESULTS RE AD BACK AND VERIFIEDby [id number], on 02/06/23, @ 230 7. HEMATOCRIT (test code = 21.0 % 37.0-55.0 L HCT) HGB [id number] 19:40:00 Test Item Value Reference Range Interpretation Comments HEMOGLOBIN (test code = 6.9 g/dL 12.0-16.0 LL Crit ical Value HGB) reported toFirs t Name:JONATAN Last Name:MARCELL GORDILLO READ BACK AND VERIFIEDby YOSI ENGEL, on 02/06/23, @ 1939. HEMATOCRIT (test code = 21.6 % 37.0-55.0 L HCT) TROP-I HIGH [id number] 16:54:00 Test Item Value Reference Range Interpretation Comments TROP-I HIGH 6705 pg/mL 0-53 HH Critical Value SENSITIVITY (test code repor vero toFirst = TROPIHS) Name:AYANNA Last Name:MARSHA SIERRA READ BACK AND VERIFIEDby Lorena.ER19, on 02/06/23, @ 0034.CAUTION: U nits of the current test methodology (pg /mL) differ from the prior test methodolog y (ng/mL) by a fa ctor of 1000. POSI TIVE TROPONIN HS IS IDENTIFIED T HE FOLLOWING MALE > OR = 78 ng/mL FEMALE > OR = 53 ng/mL ALL CRITICAL TROPI HS HAVE BEEN IDENT IFIED MALE OR FEMALE > OR = 1 20 ng/mL HGB [id number] 16:09:00 Test Item Value Reference Range Interpretation Comments HEMOGLOBIN (test code = HGB) 7.5 g/dL 12.0-16.0 L HEMATOCRIT (test code = HCT) 22.6 % 37.0-55.0 L - XR CHEST 1 [id number] 14:06:00 [facility] : 1935 Sex: FPatient Name: CASEY LYONS Unit No: [id number] EXAMS: CPT CODE: [id number] XR CHEST 1 V 00439 CHEST,SINGLE VIEW LOCATION: A1 HISTORY: Shortness of breath. A single view of the chest was obtained at 1:49 PM. No prior exams are available for comparison. FINDINGS: Mild emphysema is present along with mild cardiomegaly and central pulmonary vascular congestion. No pleural effusion or acute skeletal abno rmality is seen. IMPRESSION: Mild emphysema with mild cardiomegaly and central pulmonary vascular congestion. at 1406 Reported and signed by: Juana Gong Jr, MD CC: No Primary or Family Physician; Linda Whitaker MD Technologist:Hallie Noland Fluoro Time: DAP (Gy m2): Air Kerma (mGy): Trscr Dt/Tm: 02/06/2023 (1406) by:Nacho Electronic Signature Date/Time: 02/06/2023 (6583)Orig Print D/T: S: 02/06/2023 (3769) Name: CASEY LYONS [facility] [place] Phys: [place] [address] : 1935 Age: 87 Sex: [place] [id number] Loc: NCTONI Exam Date: 02/06/2023 Status: ADM IN PH: FAX: PAGE 1 Signed ReportCOMPREHENSIVE METABOLIC [id number] 12:31:00 Test Item Value Reference Range Interpretation Comments SODIUM (test code 133 mmol/L 135-145 L = NA) POTASSIUM (test 3.8 mmol/L 3.5-5.1 N code = K) CHLORIDE (test 105 mmol/L 98-107 N code = CL) CARBON DIOXIDE 22 mmol/L 21-32 N (test code = CO2) ANION GAP (test 9.8 2.0-16.0 N code = GAP) GLUCOSE (test code 103 mg/dL 65-99 H = GLU) BLOOD UREA 69 mg/dL 4-23 H NITROGEN (test code = BUN) GLOMERULAR 18 ml/min >60 L The Glomerular Filtration FILTRATION RATE Rate is a ca lculated (test code = GFR) parameterb ased on serum Creatinine, pat ient age and sex. GFR va luesless than 60 mL/min/ 1.73 square meters a re indicative ofCh ronic Kidney Disease. Values less than 15 mL/min/1.73squa re meters indicate Kidney failure. The calculation forGFR is based on the CK D-EPI (2020) calculat ion. This formulais race indifferent and is the recommended for tank for GFRby the [facility] for Adults.The GFR will not ca lculate if the sex is unkn own or if thepatient's ag e is <18 years. CREATININE (test 2.5 mg/dL 0.6-1.5 H code = CREAT) BUN/CREATININE 27.6 12.0-20.0 H RATIO (test code = BUN/CREA) TOTAL PROTEIN 5.3 g/dL 6.4-8.2 L (test code = PROT) ALBUMIN (test code 2.7 g/dL 3.4-5.0 L = ALB) CALCIUM (test code 8.5 mg/dL 8.5-10.1 N = CA) BILIRUBIN TOTAL 0.5 mg/dL 0.2-1.2 N Use of this assay is not (test code = BILT) recommend ed for patients undergoingtreat ment with Eltrombopag due to the potential for falselyelevated results. SGOT/AST (test 28 U/L 15-37 N code = AST) SGPT/ALT (test 17 U/L 6-50 N code = ALT) ALKALINE 53 U/L 45-117 N PHOSPHATASE (test code = ALKP) [id number] 12:31:00 Test Item Value Reference Range Interpretation Comments PHOSPHOROUS (test code = PHOS) 4.4 mg/dL 2.5-4.9 N [id number] 12:31:00 Test Item Value Reference Range Interpretation Comments MAGNESIUM (test code = MAG) 2.0 mg/dL 1.8-2.4 N FE W/TOTAL IRON BINDING [id number] 12:31:00 Test Item Value Reference Range Interpretation Comments IRON (test code = IRON) 59 ug/dL 50-175 N TOTAL IRON BINDING CAPACITY (test 300 ug/dL 260-445 N code = TIBC) IRON SATURATION (test code = FESAT) 20 % 11-46 N VITAMIN [id number] 12:31:00 Test Item Value Reference Range Interpretation Comments VITAMIN B12 (test code = VITB12) 761 pg/mL 254-1320 N FOLIC [id number] 12:31:00 Test Item Value Reference Range Interpretation Comments FOLIC ACID (test code = FOL) 15.50 ng/ml 3.10-17.50 N THYROID STIMULATING [id number] 12:31:00 Test Item Value Reference Range Interpretation Comments THYROID STIMULATING HORMONE (test 3.54 mIU/mL 0.36-3.74 N code = TSH) [id number] 12:31:00 Test Item Value Reference Range Interpretation Comments FERRITIN (test code = STAN) 25 ng/mL 8-388 N HGB [id number] 12:03:00 Test Item Value Reference Range Interpretation Comments HEMOGLOBIN (test code = HGB) 7.1 g/dL 12.0-16.0 L HEMATOCRIT (test code = HCT) 21.4 % 37.0-55.0 L LIPID PROFILE (CORONARY RISK)2023-02-06 10:26:00 Test Item Value Reference Range Interpretation Comments TRIGLYCERIDES (test code = TRIG) 77 mg/dL 0-149 N CHOLESTEROL (test code = CHOL) 120 mg/dL 0-200 N CHOLESTEROL/HDL RATIO (test code = 2 1-6 N CHOLHDL) HDL CHOLESTEROL (test code = HDL) 56 mg/dL 40-60 N LIPOPROTEIN LDL (test code = LDLC) 56 mg/dL 0-100 N TROP-I HIGH [id number] 10:26:00 Test Item Value Reference Range Interpretation Comments TROP-I HIGH 3385 pg/mL 0-53 HH Critical Value SENSITIVITY (test code repor vero Hines = TROPIHS) Name: Sincere Name:JANES HYDE READ BACK AND VERIFIEDby YOSI CESPEDES, on 02/06/23, @ 9618.CAUTION: U nits of the current test methodology (pg /mL) differ from the prior test methodolog y (ng/mL) by a fa ctor of 1000. POSI TIVE TROPONIN HS IS IDENTIFIED T HE FOLLOWING MALE > OR = 78 ng/mL FEMALE > OR = 53 ng/mL ALL CRITICAL TROPI HS HAVE BEEN IDENT IFIED MALE O R FEMALE > OR = 1 20 ng/mL CBC W/O [id number] 09:03:00 Test Item Value Reference Range Interpretation Comments WHITE BLOOD CELL (test code = 9.5 10 3/uL 4.5-11.0 N WBC) RED BLOOD CELL (test code = RBC) 2.33 10 6/uL 3.50-5.50 L HEMOGLOBIN (test code = HGB) 7.0 g/dL 12.0-16.0 L HEMATOCRIT (test code = HCT) 21.1 % 37.0-55.0 L MEAN CELL VOLUME (test code = 91 fL 81-102 N MCV) MEAN CELL HGB (test code = MCH) 30.0 pg 26.0-34.0 N MEAN CELL HGB CONCENTRATION 33.2 g/dL 31.0-37.0 N (test code = MCHC) RED CELL DISTRIBUTION WIDTH 17.5 % 11.6-14.4 H (test code = RDW) PLATELET COUNT (test code = PLT) 190 10 3/uL 150-400 N CBC (INCLUDES DIFF/[id number] 10:00:00 Test Item Value Reference Range Interpretation Comments WHITE BLOOD CELL 7.5 See_Comment [Automated COUNT-Q (test code = message ] The 6690-2) system which generated this result transmitted reference range : 3.8 - 10.8 Thousand/uL. Th e reference range was not used to interpret this result as normal/abnormal . RED BLOOD CELL 2.79 See_Comment L [Automated COUNT-Q (test code = message ] The 789-8) system which generated this result transmitted reference range : 3.80 - 5.10 Million/uL. The reference range was not used to interpret this result as normal/abnormal . HEMOGLOBIN-Q (test 8.2 g/dL 11.7-15.5 L code = 718-7) HEMATOCRIT-Q (test 25.8 % 35.0-45.0 L code = 4544-3) MCV-Q (test code = 92.5 fL 80.0-100.0 787-2) MCH-Q (test code = 29.4 pg 27.0-33.0 785-6) MCHC-Q (test code = 31.8 g/dL 32.0-36.0 L 786-4) RDW-Q (test code = 14.4 % 11.0-15.0 788-0) PLATELET COUNT-Q 271 See_Comment [Automated (test code = 777-3) message] The system which generated this result transmitted reference range : 140 - 400 Thousand/uL. Th e reference range was not used to interpret this result as normal/abnormal . MPV-Q (test code = 11.1 fL 7.5-12.5 776-5) ABSOLUTE 5940 See_Comment [Automated NEUTROPHILS-Q (test message] The code = 751-8) system which generated this result transmitted reference range : 1500 - 7800 cells/uL. The reference range was not used to interpret this result as normal/abnormal . ABSOLUTE 998 See_Comment [Automated LYMPHOCYTES-Q (test message] The code = 731-0) system which generated this result transmitted reference range : 850 - 3900 cells/uL. The reference range was not used to interpret this result as normal/abnormal . ABSOLUTE MONOCYTES-Q 450 See_Comment [Autom ated (test code = 742-7) message] The system which generated this result transmitted reference range : 200 - 950 cells/uL. The reference range was not used to interpret this result as normal/abnormal . ABSOLUTE 90 See_Comment [Automated EOSINOPHILS-Q (test message] The code = 711-2) system which generated this result transmitted reference range : 15 - 500 cells/uL. The reference range was not used to interpret this result as normal/abnormal . ABSOLUTE BASOPHILS-Q 23 See_Comment [Autom ated (test code = 704-7) message] The system which generated this result transmitted reference range : 0 - 200 cells/u L. The reference range was not used to interpr et this result as normal/abnormal . NEUTROPHILS-Q (test 79.2 % code = 770-8) LYMPHOCYTES-Q (test 13.3 % code = 736-9) MONOCYTES-Q (test 6.0 % code = 5905-5) EOSINOPHILS-Q (test 1.2 % code = 713-8) BASOPHILS-Q (test 0.3 % code = 706-2) MAIN (test code = MAIN) PERFORMED BY [facility]; [address] [place] [address]; MARY ELLEN SÁNCHEZ MD Lab Interpretation Abnormal (test code = 41230-1) [facility]stCarotid doppler [id number] 16:08:19 Ejection FractionSLEH ECHO HEARTLAB [facility] FLORECITA's Only(Ankle/Brachial Index)2021-07-18 16:05:06Ejection FractionSLEH ECHO HEARTLAB [employer] Capitals CorporationE.J. NOBLE HOSPITALON Dameron HospitalArterial doppler legs [id number] 10:18:06Ejection FractionSLEH ECHO HEARTLAB OPEN [employer] NetworkON [facility] HospitalMAGN[facility]IUM2022-01-25 05:27:38 Test Item Value Reference Range Interpretation Comments MAGNESIUM (BEAKER) (test code = 1.7 mg/dL 1.6-2.6 627) Gunnery/Ordnance Officer ID - CATRACHO [id number] 05:27:38 Test Item Value Reference Range Interpretation Comments PHOSPHORUS (BEAKER) (test code = 4.1 mg/dL 2.3-4.7 604) Gunnery/Ordnance Officer ID - CATRACHO MCBC W/PLT COUNT & AUTO [id number] 04:46:17 Test Item Value Reference Range Interpretation [...] (test code = 2801) MR, BRAIN, WITHOUT [id number] 15:06:00Post tpa imagingUnlisted Reason for Exam - Click Yes and Enter Reason Below->No [facility] 1935 Sex: FFINAL REPORT MR, [...] MDReport Verified Date/Time: 07/16/2021 15:06:46 Reading Location: [address] Neuro Reading Room [id number] 05:34:46 Test Item Value Reference Range Interpretation Comments FERRITIN (BEAKER) (test code = 430.07 ng/mL 5.00-275.00 H 361) Gunnery/Ordnance Officer ID - DEWAYNE [id number] 05:18:22 Test Item Value Reference Range Interpretation Comments PHOSPHORUS (BEAKER) (test code = 4.3 mg/dL 2.3-4.7 604) Gunnery/Ordnance Officer ID - [id number] 05:18:21 Test Item Value Reference Range Interpretation Comments MAGNESIUM (BEAKER) (test code = 1.7 mg/dL 1.6-2.6 627) Gunnery/Ordnance Officer ID - JENNIRON, TIBC, % SAT. (WITHOUT FERRITIN)2021-07-16 05:14:16 Test Item Value Reference Range Interpretation Comments IRON (BEAKER) (test code = 547) 31.0 ug/dL 40.0-160.0 L TOTAL IRON BINDING CAPACITY 219 ug/dL 250-450 L (BEAKER) (test code = 769) IRON % SATURATION (2) (BEAKER) 14 % 20-55 L (test code = 2590) Gunnery/Ordnance Officer ID - DEWAYNE WB-TYPE NATRIURETIC FACTOR (BNP)2021-07-16 05:06:56 Test Item Value Reference Range Interpretation Comments B-TYPE NATRIURETIC PEPTIDE (BEAKER) 399 pg/mL 0-100 H (test code = 700) Gunnery/Ordnance Officer ID - DEWAYNE WCBC W/PLT COUNT & AUTO [id number] 04:43:46 Test Item Value Reference Range Interpretation [...] (test code = 2801) CT, BRAIN, WITHOUT [id number] 03:11:00Unlisted Reason for Exam - Click Yes and Enter Reason Below->YesUnlisted Reason for Exam->s/p [facility] 1935 Sex: FFINAL REPORT EXAM: [...] is recommended for further characterization. Signed: Baldev Caiharshad Verified Date/Time: 07/16/2021 03:11:31 High Sensitivity Troponin I ([facility]/Johnny Only)2021-07-15 18:04:16 Test Item Value Reference Range Interpretation Comments Troponin I HS (test 28 pg/ml See_Comment H [Automa vero code = 25985-8) message] The system which generated this result transmitted reference range : <=17. The reference range was not used to interpret this result as normal/abnormal . MAIN (test code = Gunnery/Ordnance Officer ID - MAIN) DBThe GENERAL EXPEDITOR STAT High Sensitivity Troponin-I results should be used in conjunction with other diagnostic information such as ECG, clinical observations and information, and patient symptoms to aid in the diagnosis of [place]. Lab Interpretation Abnormal (test code = 54284-9) [facility] TROPONIN [id number] 18:04:16 Test Item Value Reference Range Interpretation Comments HIGH SENSITIVITY 28 pg/ml See_Comment H [Automated message] TROPONIN I (test code = The system which 0055258) generated this result transmitted ref erence range: <=17. Th e reference range was not used to int erpret this result as normal/abnormal . Gunnery/Ordnance Officer ID - DBThe GENERAL EXPEDITOR STAT High Sensitivity Troponin-I results should be used in conjunctionwith other diagnostic information such as ECG, clinical observations and information, and patient symptoms to aid in the diagnosis of TN.Hemoglobin [id number] 09:45:23 Test Item Value Reference Range Interpretation [...] ADM Lab Interpretation Normal (test code = 37054-0) [facility]ecaHEMOGLOB[facility] [id number] 09:45:23 Test Item Value Reference Range Interpretation [...] 5.7- 6.4% indicates increased risk for diabetes (prediabetes)."Gunnery/Ordnance Officer ID - ADM Urinalysis w/Microscopic + Reflex to [id number] 09:16:27 Test Item Value Reference Range Interpretation Comments Color, UA (test code Light Yellow = 5778-6) Clarity, UA (test Hazy code = 5767-9) Specific Flippin, UA 1.013 1.001-1.035 (test code = 5811-5) pH, UA (test code = 6.0 5.0-8.0 5803-2) Protein, UA (test 50 mg/dL Negative A code = 09015-9) Glucose, UA (test Negative Negative code = 365) Ketones, UA (test Negative Negative code = 2514-8) Bilirubin, UA (test Negative Negative code = 92275-0) Blood, UA (test code Trace Negative A = 67868-4) Nitrite, UA (test Negative Negative code = 5802-4) Leukocytes, UA (test Small Negative A code = 5799-2) Urobilinogen, UA 0.2 mg/dL 0.2-1.0 (test code = 14033-3) RBC, UA (test code = 1 See_Comment [Autom ated 80807-3) message] The system which generated this result [...] . Bacteria, UA (test Occasional code = 67304-6) Squam Epithel, UA 2 See_Comment [Automate d (test code = 78047-5) messag e] The system which generated this result transmitted reference range : /HPF. The reference range was not used to interpret this result as normal/abnormal . Hyaline Casts, UA 3 See_Comment [Automate d (test code = 32708-9) messag e] The system which generated this result transmitted reference range : /LPF. The reference range was not used to interpret this result as normal/abnormal . Crystals, Urine (test Occasional code = 54001-0) Specimen Source (test code = 2795) MAIN (test code = MAIN) Gunnery/Ordnance Officer ID - [auto]Gunnery/Ordnance Officer ID - tech Lab Interpretation Abnormal (test code = 00868-3) [facility]/ REFLEX URINE [id number] 09:16:27 Test Item Value Reference Range Interpretation [...] = 1521) SOURCE(BEAKER) (test code = 2795) Gunnery/Ordnance Officer ID - [auto]Gunnery/Ordnance Officer ID - techT4, [id number] 08:03:16 Test Item Value Reference Range Interpretation Comments Free T4 (test code = 1.08 ng/dL 0.70-1.48 3024-7) MAIN (test code = MAIN) Gunnery/Ordnance Officer ID - SHAE L Lab Interpretation (test Normal code = 95787-7) [facility]ecaT[facility], [id number] 08:03:16 Test Item Value Reference Range Interpretation Comments FREE T4 (BEAKER) (test code = 655) 1.08 ng/dL 0.70-1.48 Gunnery/Ordnance Officer ID - SHAE LLipid [id number] 07:14:54 Test Item Value Reference Range Interpretation Comments Triglycerides (test 60 mg/dL Specimen code = 3991-8) slightly hemolyzed Cholesterol (test 121 mg/dL Specimen code = 3-3) slightly hemolyzed HDL (test code = 48 mg/dL 5-9) LDL Calculated (test 61 mg/dL code = 97714-4) MAIN (test code = Triglyceride MAIN) Reference Range: Low Risk <150 Borderline 150-199 High Risk 200-499 Very High Risk >=500 Cholesterol Reference Range: Low Risk <200 Borderline 200-239 High Risk >240 HDL Cholesterol Reference Range: Low Risk >=60 High Risk <40 LDL Cholesterol Reference Range: Optimal <100 Near Optimal 100-129 Borderline 130-159 High 160-189 Very High >=190 Gunnery/Ordnance Officer LUPE - SHAE Hodges [facility] [id number] 07:14:54 Test Item Value Reference Range Interpretation [...] Borderline 130-159 High 160-189 Very High >=190 Gunnery/Ordnance Officer ID Nakita HARRINGTONomprehensive metabolic [id number] 07:14:53 Test Item Value Reference Range Interpretation [...] 3.1 g/dL 3.5-5.0 L Specime n slightly 25488-2) hemolyzed Alkaline Phosphatase 69 U/L 40-150 (test code = 6768-6) Total Bilirubin (test 0.3 mg/dL 0.2-1.2 Specim en slightly code = 1975-2) hemolyzed Sodium (test code = 139 meq/L 296-418 0034-2) Potassium (test code 5.0 meq/L 3.5-5.1 Specime n slightly = 8773-3) hemolyzed Chloride (test code = 113 meq/L 98-107 H 2075-0) CO2 (test code = 20 meq/L 22-29 L 2028-9) BUN (test code = 27 mg/dL 7-21 H 3094-0) Creatinine (test code 1.52 mg/dL 0.57-1.25 H Specim en slightly = 2160-0) hemolyzed Glucose (test code = 85 mg/dL 70-105 2345-7) Calcium (test code = 8.4 mg/dL 8.4-10.2 54624-5) AST (test code = 16 U/L 5-34 Specimen sl ightly 1920-8) hemolyzed ALT (test code = 10 U/L 6-55 Specimen sl ightly 1742-6) hemolyzed EGFR (test code = 33 mL/min/1.73 [place] [address]-5) NOT ACCURATE CREATININE CLEARANCE IN PREDICTING GLOMERULAR FILTRATION RATE . ESTIMATED GFR I S NOT APPLICABLE FOR DIALYSIS PATIEN TS. MAIN (test code = MAIN) Gunnery/Ordnance Officer ID - PIAYA L Lab Interpretation Abnormal (test code = 03357-5) [facility]2022-[facility]-23 07:14:53 Test Item Value Reference Range Interpretation Comments MAGNESIUM (BEAKER) 1.7 mg/dL 1.6-2.6 Specimen slightly (test code = 627) hemolyzed Gunnery/Ordnance Officer ID - SHAE [id number] 07:14:53 Test Item Value Reference Range Interpretation Comments PHOSPHORUS (BEAKER) 4.6 mg/dL 2.3-4.7 Specimen slightly (test code = 604) hemolyzed Gunnery/Ordnance Officer ID - SHAE LCOMPREHENSIVE METABOLIC [id number] 07:14:53 Test Item Value Reference Range Interpretation [...] S NOT APPLICABLE FOR DIALYSIS PATIEN TS. Gunnery/Ordnance Officer ID Nakita KAUFMAN LTSH/Free T4 If [id number] 05:50:44 Test Item Value Reference Range Interpretation Comments TSH (test code = 0.192 See_Comment L [Automated 49986-6) message] The system which generated this result transmit vero reference range : 0.350 - 4.940 uIU/mL. The reference range was not used to interpret this result as normal/abnormal . MAIN (test code = MAIN) Gunnery/Ordnance Officer ID - SHAE Hodges Lab Interpretation Abnormal (test code = 95160-7) [facility]ecaTSH/FREE T4 IF [id number] 05:50:44 Test Item Value Reference Range Interpretation Comments THYROID STIMULATING HORMONE 0.192 uIU/mL 0.350-4.940 L (BEAKER) (test code = 772) Gunnery/Ordnance Officer ID - SHAE [id number] 05:00:52 Test Item Value Reference Range Interpretation Comments PTT (test code = 18016-9) 28.4 See_Comment [ Automated message] The system [employer] generated this result transmitted ref erence range: 22.5 - 3 6.0 seconds. The re ference range was not u sed to interpret this result as normal/abnor mal. Lab Interpretation (test Normal code = 17192-9) [facility]ecaAPTT2022-01-23 05:00:52 Test Item Value Reference Range Interpretation Comments PARTIAL THROMBOPLASTIN TIME 28.4 seconds 22.5-36.0 (BEAKER) (test code = 760) Prothrombin time/[id number] 05:00:11 Test Item Value Reference Interpretation Comments Range Protime (test code = 13.2 See_Comment [Autom ated 1482-2) message] The system which generated this result transmitted reference range : 11.9 - 14.2 seconds. The reference range was not used to interpret this result as normal/abnormal . INR (test code = 1.02 See_Comment [Automated 6401-6) message] The system which generated this result transmitted reference range : <=5.90. The reference range was not used to interpret this result as normal/abnormal . MAIN (test code = RECOMMENDED AMIN) COUMADIN/WARFARIN INR THERAPY RANGESSTANDARD DOSE: 2.0 - 3.0 Includes: PROPHYLAXIS for venous thrombosis, systemic embolization; TREATMENT for venous thrombosis and/or pulmonary embolus.HIGH RISK: Target INR is 2.5-3.5 for patients with mechanical heart valves. Lab Interpretation Normal (test code = 88355-9) [facility]PROT[facility]/[id number] 05:00:11 Test Item Value Reference Range Interpretation Comments PROTIME (BEAKER) 13.2 seconds 11.9-14.2 (test code = 759) INR (BEAKER) (test 1.02 See_Comment [Automat ed message] code = 370) The system Maker's Row generated this result transmitted ref erence range: <=5.90. The reference range was not used to int erpret this result as normal/abnormal . RECOMMENDED COUMADIN/WARFARIN INR THERAPY RANGESSTANDARD DOSE: 2.0 - 3.0 Includes: PROPHYLAXIS for venous thrombosis, systemic embolization; TREATMENT for venous thrombosis and/or pulmonary embolus.HIGH RISK: Target INR is 2.5-3.5 for patients with mechanical heart valves.CBC W/PLT COUNT & AUTO [id number] 04:41:21 Test Item Value Reference Range Interpretation [...] PERCENT (BEAKER) (test code = 2801) POCT-GLUCOSE [id number] 12:30:47 Test Item Value Reference Range Interpretation Comments POC-GLUCOSE METER 102 mg/dL 70-110 : TESTED A T [facility] (test code = [place], 1538) [address]: Gunnery/Ordnance Officer/Techni kaushik ID = [id number] for MOISES SETHI SARS-COV2/RT-PCR ([facility])2021-03-27 11:03:20 Test Item Value Reference Range Interpretation Comments SARS-COV2/RT-PCR (test Negative Not Detected, Negative, code = 4046121) See external report for linked test SARS-COV-[address] [facility] BLNAQUITA (test code = 5174549) Negative result for this test determines that [...] of the Act.Fact Sheet for Healthcare Prov iders:https://www.[employer]/sites/default/files/product/documents/Fact_Sheet_HC _Attmdrrmv_Ylik_ZMPS-BfB-0.pdfFact Sheet for Healthcare Patients:https://www.[employer]/sites/default/files/product/docume nts/Fdqo_Viasl_Uyfeyflu_Hokd_AYYP-WvI-7.pdfPerforming Laboratory:[facility], [place] [address]DHYH-LYJIHTY METER 2021-03-27 07:00:17 Test Item Value Reference Range Interpretation Comments POC-GLUCOSE METER 81 mg/dL 70-110 : TESTED A T [facility] (BEAKER) (test code = JAMIE Cabrales [facility], 1538) [address]: Gunnery/Ordnance Officer/Techni kaushik ID = [id number] for Mavis Noonan [id number] 06:12:51 Test Item Value Reference Range Interpretation Comments MAGNESIUM (BEAKER) (test code = 1.9 mg/dL 1.6-2.6 627) Gunnery/Ordnance Officer ID - [id number] 06:12:51 Test Item Value Reference Range Interpretation Comments PHOSPHORUS (BEAKER) (test code = 3.1 mg/dL 2.3-4.7 604) Gunnery/Ordnance Officer ID - JRLCOMPREHENSIVE METABOLIC [id number] 06:12:50 Test Item Value Reference Range Interpretation [...] S NOT APPLICABLE FOR DIALYSIS PATIEN TS. Gunnery/Ordnance Officer ID - JRLCBC W/PLT COUNT & AUTO [id number] 05:43:01 Test Item Value Reference Range Interpretation [...] PERCENT (BEAKER) (test code = 2801) POCT-GLUCOSE [id number] 00:38:16 Test Item Value Reference Range Interpretation Comments POC-GLUCOSE METER 85 mg/dL 70-110 : TESTED A T [facility] 6720 (BEAKER) (test code = [facility], 153) 15[address]: Gunnery/Ordnance Officer/Techni kaushik ID = [id number] for Rachid angulo, Mavis POCT-GLUCOSE [id number] 17:30:06 Test Item Value Reference Range Interpretation Comments POC-GLUCOSE METER 118 mg/dL 70-110 H : TESTED A T [facility] 6720 (BEAKER) (test code = [facility], 1538) 780[address]: Gunnery/Ordnance Officer/Techni kaushik ID = [id number] for MOISES SETHI HEMOGLOBIN AND [id number] 17:20:47 Test Item Value Reference Range Interpretation Comments HEMOGLOBIN (BEAKER) (test code = 7.4 GM/DL 11.2-15.7 L 410) HEMATOCRIT (BEAKER) (test code = 23.1 % 34.1-44.9 L 411) Gunnery/Ordnance Officer ID - 6000POCT-GLUCOSE [id number] 12:41:00 Test Item Value Reference Range Interpretation Comments POC-GLUCOSE METER 105 mg/dL 70-110 : TESTED Kya T [facility] 6720 (FELISHA) (test code = [place], 1538) [address]: Gunnery/Ordnance Officer/Techni kaushik ID = [id number] for DANAY MARQUEZ SARS-COV2/RT-PCR ([facility])2021-03-26 10:44:30 Test Item Value Reference Range Interpretation Comments SARS-COV2/RT-PCR (test Negative Not Detected, Negative, code = 7767131) See external report for linked test SARS-COV-[address] [facility] BLANQUITA (test code = 4218153) Negative result for this test determines that [...] of the Act.Fact Sheet for Healthcare Pro viders:https://www.[employer]/sites/default/files/product/documents/Fact_Sheet_H F_Qsofilhtz_Kbqm_GXUR-CmY-6.pdfFact Sheet for Healthcare Patients:https://www.[employer]/sites/default/files/product/docum ents/Mvjg_Gsmnq_Daauparc_Ypbd_VIKK-TcX-3.pdfPerforming Laboratory:[facility], [place] [id number] 06:44:05 Test Item Value Reference Range Interpretation Comments MAGNESIUM (BEAKER) (test code = 1.9 mg/dL 1.6-2.6 627) Gunnery/Ordnance Officer ID Nakita BUCHANAN [id number] 06:44:05 Test Item Value Reference Range Interpretation Comments PHOSPHORUS (BEAKER) (test code = 2.7 mg/dL 2.3-4.7 604) Gunnery/Ordnance Officer ID Nakita BUCHANAN WCOMPREHENSIVE METABOLIC [id number] 06:44:04 Test Item Value Reference Range Interpretation [...] S NOT APPLICABLE FOR DIALYSIS PATIEN TS. Gunnery/Ordnance Officer ID - DEWAYNE WCBC W/PLT COUNT & AUTO [id number] 06:33:22 Test Item Value Reference Range Interpretation [...] PERCENT (BEAKER) (test code = 2801) POCT-GLUCOSE [id number] 06:18:41 Test Item Value Reference Range Interpretation Comments POC-GLUCOSE METER 99 mg/dL 70-110 : TESTED A T [facility] 6720 (BEAKER) (test code = [facility], [facility]) [address]: Gunnery/Ordnance Officer/Techni kaushik ID = [id number] for Serr ano, Lore POCT-GLUCOSE [id number] 00:16:02 Test Item Value Reference Range Interpretation Comments POC-GLUCOSE METER 89 mg/dL 70-110 : TESTED A T [facility] 6720 (BEAKER) (test code = [facility], 153) 83071: Gunnery/Ordnance Officer/Techni kaushik ID = [id number] for Serr ano, Lore POCT-GLUCOSE [id number] 18:26:03 Test Item Value Reference Range Interpretation Comments POC-GLUCOSE METER 110 mg/dL 70-110 : TESTED A T [facility] 6720 (BEAKER) (test code = [facility], 1538) 39527: Gunnery/Ordnance Officer/Techni kaushik ID = [id number] for RO DGERS, JAMECA POCT-GLUCOSE [id number] 13:19:38 Test Item Value Reference Range Interpretation Comments POC-GLUCOSE METER 109 mg/dL 70-110 : TESTED A T [facility] 6720 (BEAKER) (test code = [facility], 1538) 32118: Gunnery/Ordnance Officer/Techni kaushik ID = [id number] for RO DGERS, JAMECA CBC W/PLT COUNT & AUTO [id number] 08:04:36 Test Item Value Reference Range Interpretation [...] 0-1 PERCENT (BEAKER) (test code = 2801) [id number] 07:24:14 Test Item Value Reference Range Interpretation Comments PHOSPHORUS (BEAKER) (test code = 2.3 mg/dL 2.3-4.7 604) Gunnery/Ordnance Officer ID Nakita BUCHANAN WCOMPREHENSIVE METABOLIC [id number] 07:24:13 Test Item Value Reference Range Interpretation [...] S NOT APPLICABLE FOR DIALYSIS PATIEN TS. Gunnery/Ordnance Officer ID Nakita BUCHANAN [id number] 07:24:13 Test Item Value Reference Range Interpretation Comments MAGNESIUM (BEAKER) (test code = 1.8 mg/dL 1.6-2.6 627) Gunnery/Ordnance Officer ID - DEWAYNE WPOCT-GLUCOSE [id number] 18:41:45 Test Item Value Reference Range Interpretation Comments POC-GLUCOSE METER 96 mg/dL 70-110 : TESTED A T [facility] 6720 (BEAKER) (test code = [facility], 1538) 41977: Gunnery/Ordnance Officer/Techni kaushik ID = [id number] for ASCENCION SAGE, KARAN POCT-GLUCOSE [id number] 11:57:32 Test Item Value Reference Range Interpretation Comments POC-GLUCOSE METER 146 mg/dL 70-110 H : TESTED A T [facility] 6720 (BEAKER) (test code = [facility], 1538) 18[address]: Gunnery/Ordnance Officer/Techni kaushik ID = [id number] for AK INSONU, KARAN POCT-GLUCOSE [id number] 08:36:14 Test Item Value Reference Range Interpretation Comments POC-GLUCOSE METER 103 mg/dL 70-110 : TESTED A T [facility] 6720 (BEAKER) (test code = [facility], 1538) 72940: Gunnery/Ordnance Officer/Techni kaushik ID = [id number] for AK INSONU, KARAN COMPREHENSIVE METABOLIC [id number] 08:08:55 Test Item Value Reference Range Interpretation [...] S NOT APPLICABLE FOR DIALYSIS PATIEN TS. Gunnery/Ordnance Officer ID - [id number] 07:41:23 Test Item Value Reference Range Interpretation Comments MAGNESIUM (BEAKER) (test code = 1.8 mg/dL 1.6-2.6 627) Gunnery/Ordnance Officer ID - [id number] 07:41:23 Test Item Value Reference Range Interpretation Comments PHOSPHORUS (BEAKER) (test code = 2.3 mg/dL 2.3-4.7 604) Gunnery/Ordnance Officer ID - DBCBC W/PLT COUNT & AUTO [id number] 07:24:27 Test Item Value Reference Range Interpretation [...] PERCENT (BEAKER) (test code = 2801) POCT-GLUCOSE [id number] 05:13:18 Test Item Value Reference Range Interpretation Comments POC-GLUCOSE METER 91 mg/dL 70-110 : TESTED A T [facility] 6720 (BEAKER) ([facility] [address]: Gunnery/Ordnance Officer/Techni kaushik ID = [id number] for SERENITY S, SUZANNA POCT-GLUCOSE [id number] 00:08:50 Test Item Value Reference Range Interpretation Comments POC-GLUCOSE METER 109 mg/dL 70-110 : TESTED A T [facility] 6720 (BEAKER) (test code = [facility], 153) 74913: Gunnery/Ordnance Officer/Techni kaushik ID = [id number] for DE NNIS, TODD [id number] 07:11:30 Test Item Value Reference Range Interpretation Comments MAGNESIUM (BEAKER) (test code = 1.9 mg/dL 1.6-2.6 627) Gunnery/Ordnance Officer ID - PIAYA [id number] 07:11:30 Test Item Value Reference Range Interpretation Comments PHOSPHORUS (BEAKER) (test code = 2.3 mg/dL 2.3-4.7 604) Gunnery/Ordnance Officer ID - PIAYA LCOMPREHENSIVE METABOLIC [id number] 07:11:29 Test Item Value Reference Range Interpretation [...] S NOT APPLICABLE FOR DIALYSIS PATIEN TS. Gunnery/Ordnance Officer ID - PIAYA LPOCT-GLUCOSE [id number] 06:13:33 Test Item Value Reference Range Interpretation Comments POC-GLUCOSE METER 99 mg/dL 70-110 : TESTED A T [facility] 6720 (BEAKER) (test code = JAMIE Cabrales [facility], 1538) 30008: Gunnery/Ordnance Officer/Techni kaushik ID = [id number] for CB REIS CBC W/PLT COUNT & AUTO [id number] 05:36:33 Test Item Value Reference Range Interpretation [...] EOSINOPHILS ABSOLUTE COUNT 0.36 K/ L 0.04-0.36 (AKER) (test code = 416) BASOPHILS ABSOLUTE COUNT ([facility]) 0.02 K/ L 0.01-0.08 (test code = 417) IMMATURE GRANULOCYTES-RELATIVE 0 % 0-1 PERCENT ([facility]) (test code = 2801) POCT-GLUCOSE [id number] 00:31:23 Test Item Value Reference Range Interpretation Comments POC-GLUCOSE METER 104 mg/dL 70-110 : TESTED A T [facility] 6720 ([facility]) (test code = [facility], 153) 79745: Gunnery/Ordnance Officer/Techni kaushik ID = [id number] for CB COULTER POCT-GLUCOSE [id number] 17:25:03 Test Item Value Reference Range Interpretation Comments POC-GLUCOSE METER 114 mg/dL 70-110 H : [facility] ([facility]) (test code = [facility], 153) 40752: Gunnery/Ordnance Officer/Techni kaushik ID = [id number] for RO DGERS, GEORGEECA POCT-GLUCOSE [id number] 12:56:53 Test Item Value Reference Range Interpretation Comments POC-GLUCOSE METER 133 mg/dL 70-110 H : [facility] ([facility]) (test code = [facility], 153) 10893: Gunnery/Ordnance Officer/Techni kaushik ID = [id number] for RO DGERS, GEORGEECA POCT-GLUCOSE [id number] 06:10:41 Test Item Value Reference Range Interpretation Comments POC-GLUCOSE METER 123 mg/dL 70-110 H : Notified RN/MD: ([facility]) (test code = [facility] 1538) [facility], [address]: Gunnery/Ordnance Officer/Techni kaushik ID = [id number] for DO VE, CHEKARA [id number] 04:47:21 Test Item Value Reference Range Interpretation Comments MAGNESIUM (BEAKER) (test code = 2.0 mg/dL 1.6-2.6 627) Gunnery/Ordnance Officer ID - CATRACHO [id number] 04:47:21 Test Item Value Reference Range Interpretation Comments PHOSPHORUS (BEAKER) (test code = 2.1 mg/dL 2.3-4.7 L 604) Gunnery/Ordnance Officer ID - CATRACHO OMPREHENSIVE METABOLIC [id number] 04:47:20 Test Item Value Reference Range Interpretation [...] S NOT APPLICABLE FOR DIALYSIS PATIEN TS. Gunnery/Ordnance Officer ID - CATRACHO MCBC W/PLT COUNT & AUTO [id number] 04:08:41 Test Item Value Reference Range Interpretation [...] PERCENT (BEAKER) (test code = 2801) POCT-GLUCOSE [id number] 23:46:34 Test Item Value Reference Range Interpretation Comments POC-GLUCOSE METER 132 mg/dL 70-110 H : Notified RN/MD: (BEAKER) (test code = TESTED AT [facility] 6720 1538) [facility], [address]: Gunnery/Ordnance Officer/Techni kaushik ID = [id number] for NIKHIL MANZOA POCT-GLUCOSE [id number] 18:31:36 Test Item Value Reference Range Interpretation Comments POC-GLUCOSE METER 137 mg/dL 70-110 H : TESTED A T [facility] 6720 (BEAKER) (test code = [facility], 1538) 25667: Gunnery/Ordnance Officer/Techni kaushik ID = [id number] for ROBINA DAMON, DANAY POCT-GLUCOSE [id number] 12:33:28 Test Item Value Reference Range Interpretation Comments POC-GLUCOSE METER 128 mg/dL 70-110 H : TESTED A T [facility] 6720 (BEAKER) (test code = [facility], 1538) 17289: Gunnery/Ordnance Officer/Techni kaushik ID = [id number] for ROBINA DAMON, DANAY [id number] 07:06:08 Test Item Value Reference Range Interpretation Comments PHOSPHORUS (BEAKER) (test code = 4.4 mg/dL 2.3-4.7 604) Gunnery/Ordnance Officer ID - PIAYA LCOMPREHENSIVE METABOLIC [id number] 07:06:07 Test Item Value Reference Range Interpretation [...] S NOT APPLICABLE FOR DIALYSIS PATIEN TS. Gunnery/Ordnance Officer ID - PIAYA [id number] 07:06:07 Test Item Value Reference Range Interpretation Comments MAGNESIUM (BEAKER) (test code = 2.3 mg/dL 1.6-2.6 627) Gunnery/Ordnance Officer ID - SHAE LPOCT-GLUCOSE [id number] 06:31:52 Test Item Value Reference Range Interpretation Comments POC-GLUCOSE METER 119 mg/dL 70-110 H : TESTED A T [facility] 6720 (BEAKER) (test code = JAMIE Cabrales [facility], 1538) [address]: Gunnery/Ordnance Officer/Techni kaushik ID = [id number] for TEJ LINDYTIFFANIE VENEGAS CBC W/PLT COUNT & AUTO [id number] 04:39:54 Test Item Value Reference Range Interpretation [...] PERCENT (BEAKER) (test code = 2801) POCT-GLUCOSE [id number] 00:11:53 Test Item Value Reference Range Interpretation Comments POC-GLUCOSE METER 106 mg/dL 70-110 : TESTED A T [facility] 6720 (BEAKER) (test code = [place], 1538) [address]: Gunnery/Ordnance Officer/Techni kaushik ID = [id number] for TIFFANIE WHITT URINALYSIS W/ REFLEX URINE [id number] 19:10:53 Test Item Value Reference Range Interpretation [...] = 1521) SOURCE(BEAKER) (test code = 2795) Gunnery/Ordnance Officer ID - [auto]Gunnery/Ordnance Officer ID - techPOCT-GLUCOSE [id number] 18:31:06 Test Item Value Reference Range Interpretation Comments POC-GLUCOSE METER 95 mg/dL 70-110 : TESTED A T [facility] 6720 (BEAKER) (test code = [place], 1538) [address]: Gunnery/Ordnance Officer/Techni kaushik ID = [id number] for MARIANGEL PLEITEZ DANAY RAD, CHEST, 1 VIEW, NON [id number] 14:59:00Reason for exam:->follwo up interstitial infeiltratesShould this be performed at the bedside?->Yes [facility] 1935 Sex: FFINAL REPORT Chest one view. Clinical history: follow up interstitial infiltrates Comparison: March 17, 2021 Discussion: A frontal chest is provided. Cardiomediastinal contours areunchanged. Tip of Corpak projects over the stomach. There is no juana pulmonary edema, consolidation, pneumothorax, or large effusion. Interstitial prominence has resolved. Signed: Parisa Vanegas Verified Date/Time: 03/20/2021 14:59:46 Reading Location: [place] [address]X Ortho Consult Reading Room POCT-GLUCOSE [id number] 12:21:05 Test Item Value Reference Range Interpretation Comments POC-GLUCOSE METER 78 mg/dL 70-110 : TESTED A T [facility] 6720 (BEAKER) (test code = [place], 1538) [address]: Gunnery/Ordnance Officer/Techni kaushik ID = [id number] for MARIANGEL PLEITEZ, DANAY CT, BRAIN, WITHOUT [id number] 12:04:00Unlisted Reason for Exam - Click Yes and Enter Reason Below->No [facility] 1935 Sex: FAddendum BeginsREPORT STATUS:A [...] Zoila Jones Verified Date/Time: 03/19/2021 17:19:49 CT, ELENANGIO BRAIN 2021-03-20 12:04:00Unlisted Reason for Exam - Click Yes and Enter Reason Below->No[facility] : 1935 Sex: FAddendum BeginsREPORT STATUS:A [...] No occlusion or high-grade stenosis. Carotid arteries: Advancedatherosclerosis in the carotid bifurcations. There is approximately 60% focal stenosis of the right proximal ICA and 40% focal stenosis of the left ICA. Vertebral arteries: No occlusion or high-grade st enosis. No fracture or suspicious osseous lesion. Cervical soft tissues are unremarkable. Visualizedlung apices are clear. IMPRESSION:1.No intracranial hemorrhage or [...] Exam - Click Yes and Enter Reason Below->No[facility] : 1935 Sex: FAddendum BeginsREPORT STATUS:A 3-D reconstructions were obtained at a separate workstation and added to PACS after the report was finalized. There is no significant change to the initial interpretation. Signed: Zoila Jonesort Verified Date/Time: 03/20/2021 12:04:41 Addendum EndsFINAL REPORT [...] Zoila Jones MDReport Verified Date/Time: 03/19/2021 17:19:49 POCT-GLUCOSE METER 2021-03-20 07:05:40 Test Item Value Reference Range Interpretation Comments POC-GLUCOSE METER 73 mg/dL 70-110 : TESTED A T [facility] 6720 (BEAKER) (test code = JAMIE Cabrales [place], 1538) [address]: Gunnery/Ordnance Officer/Techni kaushik ID = [id number] for ABISAI WEINER [id number] 06:26:24 Test Item Value Reference Range Interpretation Comments MAGNESIUM (BEAKER) (test code = 2.4 mg/dL 1.6-2.6 627) Gunnery/Ordnance Officer ID - CATRACHO [id number] 06:26:24 Test Item Value Reference Range Interpretation Comments PHOSPHORUS (BEAKER) (test code = 5.5 mg/dL 2.3-4.7 H 604) Gunnery/Ordnance Officer ID - CATRACHO MCOMPREHENSIVE METABOLIC [id number] 06:26:23 Test Item Value Reference Range Interpretation [...] S NOT APPLICABLE FOR DIALYSIS PATIEN TS. Gunnery/Ordnance Officer ID - CATRACHO MCBC W/PLT COUNT & AUTO [id number] 06:10:19 Test Item Value Reference Range Interpretation [...] PERCENT (BEAKER) (test code = 2801) POCT-GLUCOSE [id number] 00:30:31 Test Item Value Reference Range Interpretation Comments POC-GLUCOSE METER 80 mg/dL 70-110 : [facility] (BEAKER) (test code = [facility], 1538) [address]: Gunnery/Ordnance Officer/Techni kaushik ID = [id number] for TIFFANIE DONALDSON POCT-GLUCOSE [id number] 17:50:50 Test Item Value Reference Range Interpretation Comments POC-GLUCOSE METER 93 mg/dL 70-110 : TESTED A T [facility] [address]20 (BEAKER) (test code = [facility], 1538) [address]: Gunnery/Ordnance Officer/Techni kaushik ID = [id number] for DANAY MASSEY SARS-COV2/RT-PCR ([facility])2021-03-19 13:50:07 Test Item Value Reference Range Interpretation Comments SARS-COV2/RT-PCR (test Negative Not Detected, Negative, code = 7384372) See external report for linked test SARS-COV-[address] [facility] (test code = 4766607) Negative result for this test determines that [...] of the Act.Fact Sheet for Healthcare Prov iders:https://www.[employer]/sites/default/files/product/documents/Fact_Sheet_HC _Llipfpdhk_Pyox_DCTK-WlL-4.pdfFact Sheet for Healthcare Patients:https://www.[employer]/sites/default/files/product/docume nts/Eexd_Ypqpo_Vtplkfaw_Udii_RKJN-HtY-2.pdfPerforming Laboratory:[facility], [place] [address]BZGW-IYANASN METER 2021-03-19 12:25:24 Test Item Value Reference Range Interpretation Comments POC-GLUCOSE METER 99 mg/dL 70-110 : TESTED Kya T [facility] 6720 (FELISHA) (test code = JAMIE Cabrales [facility], 1538) [address]: Gunnery/Ordnance Officer/Techni kaushik ID = [id number] for DANAY MASSEY [id number] 11:06:15 Test Item Value Reference Range Interpretation Comments RPR SCREEN (BEAKER) (test code = Nonreactive Nonreactive 420) POCT-GLUCOSE [id number] 06:58:31 Test Item Value Reference Range Interpretation Comments POC-GLUCOSE METER 96 mg/dL 70-110 : TESTED Kya Rodríguez [facility] 6720 (BEAKER) (test code = [place], 1538) [address]: Gunnery/Ordnance Officer/Techni kaushik ID = [id number] for Mavis Noonan [id number] 06:11:28 Test Item Value Reference Range Interpretation Comments MAGNESIUM (BEAKER) (test code = 2.1 mg/dL 1.6-2.6 627) Gunnery/Ordnance Officer ID - SHAE [id number] 06:11:28 Test Item Value Reference Range Interpretation Comments PHOSPHORUS (BEAKER) (test code = 4.0 mg/dL 2.3-4.7 604) Gunnery/Ordnance Officer ID - SHAE LCOMPREHENSIVE METABOLIC [id number] 06:11:27 Test Item Value Reference Range Interpretation [...] S NOT APPLICABLE FOR DIALYSIS PATIEN TS. Gunnery/Ordnance Officer ID - PIAYA LCBC W/PLT COUNT & AUTO [id number] 06:07:52 Test Item Value Reference Range Interpretation [...] PERCENT (BEAKER) (test code = 2801) POCT-GLUCOSE [id number] 00:26:50 Test Item Value Reference Range Interpretation Comments POC-GLUCOSE METER 94 mg/dL 70-110 : TESTED A T [facility] 6720 (BEAKER) (test code = [place], 1538) [address]: Gunnery/Ordnance Officer/Techni kaushik ID = [id number] for Weav er, Mavis RAD, ABDOMEN/KUB, 1 VIEW [id number] 22:24:00Reason for exam:->corpak placementSCRIPPS [facility]: [facility] : 1935 Sex: FFINAL REPORT CLINICAL [...] [place] Verified Date/Time: 03/18/2021 22:24:48 POCT-GLUCOSE [id number] 18:14:14 Test Item Value Reference Range Interpretation Comments POC-GLUCOSE METER 103 mg/dL 70-110 : TESTED A T [facility] 6720 ([facility]) (test code = [facility], 1538) [address]: Gunnery/Ordnance Officer/Techni kaushik ID = [id number] for Karen Arauz POCT-GLUCOSE [id number] 06:34:39 Test Item Value Reference Range Interpretation Comments POC-GLUCOSE METER 106 mg/dL 70-110 : TESTED A T [facility] 6720 ([facility] (test code = [facility] Samra [facility], 1538) [address]: Gunnery/Ordnance Officer/Techni kaushik ID = [id number] for CYRUS GRANADO CT, BRAIN, WITHOUT [id number] 04:55:00Unlisted Reason for Exam - Click Yes and Enter Reason Below->No [facility] : 1935 Sex: FFINAL REPORT CT, [...] (test code The sy stem which = [id number]) generated this result transmitted ref erence range: <=17. Th e reference range was not used to int erpret this result as normal/abnormal . Gunnery/Ordnance Officer ID - PIAYA LThe GENERAL EXPEDITOR STAT High Sensitivity Troponin-I results should be used in conjunction with other diagnostic information such as ECG, clinical observations and information, and patient symptoms to aid in the diagnosis of [place].COMPREHENSIVE METABOLIC [id number] 04:26:59 Test Item Value Reference Range Interpretation [...] S NOT APPLICABLE FOR DIALYSIS PATIEN TS. Gunnery/Ordnance Officer ID - SHAE [id number] 04:26:58 Test Item Value Reference Range Interpretation Comments MAGNESIUM (BEAKER) 2.4 mg/dL 1.6-2.6 Specimen slightly (test code = 627) hemolyzed Gunnery/Ordnance Officer ID - SHAE [id number] 04:26:58 Test Item Value Reference Range Interpretation Comments PHOSPHORUS (BEAKER) 3.7 mg/dL 2.3-4.7 Specimen slightly (test code = 604) hemolyzed Gunnery/Ordnance Officer ID - SHAE LCBC W/PLT COUNT & AUTO [id number] 04:21:01 Test Item Value Reference Range Interpretation [...] PERCENT (BEAKER) (test code = 2801) POCT-GLUCOSE [id number] 00:41:25 Test Item Value Reference Range Interpretation Comments POC-GLUCOSE METER 106 mg/dL 70-110 : TESTED A T [facility] 6720 (BEAKER) (test code = [place], 1538) [id number]: Gunnery/Ordnance Officer/Techni kaushik ID = [id number] for CYRUS GRANADO HIGH SENSITIVITY TROPONIN [id number] 16:58:20 Test Item Value Reference Range Interpretation Comments HIGH SENSITIVITY 4622 pg/ml See_Comment HH [Automated message] TROPONIN I (test code The sy stem which = [id number]) generated this result transmitted ref erence range: <=17. Th e reference range was not used to int erpret this result as normal/abnormal . Gunnery/Ordnance Officer ID - CATRACHO Gatic[employer] GENERAL EXPEDITOR STAT High Sensitivity Troponin-I results should be used in conjunction with other diagnostic information such as ECG, clinical observations and information, and patient symptoms to aid in the diagnosis of [place].HEMOGLOBIN [id number] 13:03:51 Test Item Value Reference Range Interpretation Comments HEMOGLOBIN A1C (FELISHA) (test code = 5.7 % 4.3-6.1 368) HIGH SENSITIVITY TROPONIN [id number] 08:36:08 Test Item Value Reference Range Interpretation Comments HIGH SENSITIVITY 5997 pg/ml See_Comment HH [Automated message] TROPONIN I (test code The sy stem which = [id number]) generated this result transmitted ref erence range: <=17. Th e reference range was not used to int erpret this result as normal/abnormal . Gunnery/Ordnance Officer ID - CATRACHO Gatica GENERAL EXPEDITOR STAT High Sensitivity Troponin-I results should be used in conjunction with other diagnostic information such as ECG, clinical observations and information, and patient symptoms to aid in the diagnosis of TN.Gunnery/Ordnance Officer ID - CATRACHO EMETERIOD, CHEST, 1 VIEW, NON [id number] 06:47:00Reason for exam:->[facility] : 1935 Sex: FFINAL REPORT RAD, [...] Vani Shelby Verified Date/Time: 03/17/2021 06:47:48 POCT-GLUCOSE [id number] 06:40:01 Test Item Value Reference Range Interpretation Comments POC-GLUCOSE METER 102 mg/dL 70-110 : TESTED A T [facility] 6720 (BEAKER) (test code = JAMIE Cabrales [facility], 1538) [address]: Gunnery/Ordnance Officer/Techni kaushik ID = [id number] for EMILIE WESTON VITAMIN B12 AND [id number] 03:42:15 Test Item Value Reference Range Interpretation Comments VITAMIN B12 (BEAKER) 715 pg/mL 213-816 (test code = 774) FOLATE (BEAKER) 3.20 ng/mL See_Comment L [Automated message] (test code = 362) The system which generated this result transmitted ref erence range: >=7.00. The reference range was not used to interpr et this result as normal/abnormal . Gunnery/Ordnance Officer ID - CATRACHO MTSH/FREE T4 IF [id number] 03:42:14 Test Item Value Reference Range Interpretation Comments THYROID STIMULATING HORMONE 0.995 uIU/mL 0.350-4.940 (BEAKER) (test code = 772) Gunnery/Ordnance Officer ID - CATRACHO MHIGH SENSITIVITY TROPONIN [id number] 02:10:06 Test Item Value Reference Range Interpretation Comments HIGH SENSITIVITY 752 pg/ml See_Comment HH [Automated message] TROPONIN I (test code The sy stem which = [id number]) generated this result transmitted ref erence range: <=17. Th e reference range was not used to int erpret this result as normal/abnormal . Gunnery/Ordnance Officer ID - DBThe GENERAL EXPEDITOR STAT High Sensitivity Troponin-I results should be used in conjunctionwith other diagnostic information such as ECG, clinical observations and information, and patient symptoms to aid in the diagnosis of TN.B-TYPE NATRIURETIC FACTOR (BNP)2021-03-17 02:05:41 Test Item Value Reference Range Interpretation Comments B-TYPE NATRIURETIC PEPTIDE (BEAKER) 620 pg/mL 0-100 H (test code = 700) Gunnery/Ordnance Officer ID - DBLACTIC ACID, [id number] 01:57:01 Test Item Value Reference Range Interpretation Comments LACTATE BLOOD VENOUS 0.59 mmol/L 0.50-2.20 Specime n moderately (2) (BEAKER) (test hemolyzed code = 2872) Gunnery/Ordnance Officer ID - DBCBC W/PLT COUNT & AUTO [id number] 01:39:26 Test Item Value Reference Range Interpretation [...] 0-1 PERCENT (BEAKER) (test code = 2801) [id number] 01:36:41 Test Item Value Reference Range Interpretation Comments PHOSPHORUS (BEAKER) (test code = 3.6 mg/dL 2.3-4.7 604) Gunnery/Ordnance Officer ID - DBLIPID [id number] 01:36:41 Test Item Value Reference Range Interpretation [...] Borderline 130-159 High 160-189 Very High >=190 Gunnery/Ordnance Officer ID - DBCOMPREHENSIVE METABOLIC [id number] 01:36:40 Test Item Value Reference Range Interpretation [...] S NOT APPLICABLE FOR DIALYSIS PATIEN TS. Gunnery/Ordnance Officer ID - [id number] 01:36:40 Test Item Value Reference Range Interpretation Comments MAGNESIUM (BEAKER) (test code = 1.6 mg/dL 1.6-2.6 627) Gunnery/Ordnance Officer ID - [id number] 01:26:37 Test Item Value Reference Range Interpretation Comments FIBRINOGEN LEVEL (BEAKER) (test 227 mg/dl 225-434 code = 658) [id number] 01:26:37 Test Item Value Reference Range Interpretation Comments PARTIAL THROMBOPLASTIN TIME 29.3 seconds 22.5-36.0 (BEAKER) (test code = 760) PROTHROMBIN [id number] 01:25:54 Test Item Value Reference Range Interpretation Comments PROTIME (BEAKER) 14.4 seconds 11.9-14.2 H (test code = 759) INR (BEAKER) (test 1.14 See_Comment [Automat ed message] code = 370) The system [employer] generated this result transmitted ref erence range: <=5.90. The reference range was not used to int erpret this result as normal/abnormal . RECOMMENDED COUMADIN/WARFARIN INR THERAPY RANGESSTANDARD DOSE: 2.0 - 3.0 Includes: PROPHYLAXIS for venous thrombosis, systemic embolization; TREATMENT for venous thrombosis and/or pulmonary embolus.HIGH RISK: Target INR is 2.5-3.5 for patients with mechanical heart valves.[id number] 01:11:30 Test Item Value Reference Range Interpretation Comments AMMONIA (BEAKER) (test code = 348) 23 mol/L 18-72 Gunnery/Ordnance Officer ID - DBBASIC METABOLIC [id number] 07:17:00 Test Item Value Reference Range Interpretation [...] PATIEN TS. CBC W/PLT COUNT & AUTO [id number] 06:55:00 Test Item Value Reference Range Interpretation [...] (BEAKER) (test code = 2801) BASIC METABOLIC [id number] 05:32:00 Test Item Value Reference Range Interpretation [...] PATIEN TS. CBC W/PLT COUNT & AUTO [id number] 05:11:00 Test Item Value Reference Range Interpretation [...] 0-1 PERCENT (BEAKER) (test code = 2801) [id number] 07:46:00 Test Item Value Reference Range Interpretation Comments MAGNESIUM (BEAKER) (test code = 2.2 mg/dL 1.6-2.6 627) BASIC METABOLIC [id number] 07:46:00 Test Item Value Reference Range Interpretation [...] PATIEN TS. CBC W/PLT COUNT & AUTO [id number] 07:31:00 Test Item Value Reference Range Interpretation [...] (BEAKER) (test code = 2801) BASIC METABOLIC [id number] 14:48:00 Test Item Value Reference Range Interpretation [...] S NOT APPLICABLE FOR DIALYSIS PATIEN TS. [id number] 06:03:00 Test Item Value Reference Range Interpretation [...] 0-0 (BEAKER) (test code = 413) POCT-GLUCOSE [id number] 14:00:00 Test Item Value Reference Range Interpretation Comments POC-GLUCOSE METER 283 mg/dL 70-[address] [facility] 67[address] (BEAKER) (test code = [place] 1538) [address] [id number] 05:56:00 Test Item Value Reference Range Interpretation Comments MAGNESIUM (BEAKER) (test code = 2.8 mg/dL 1.6-2.6 H 627) BASIC METABOLIC [id number] 05:56:00 Test Item Value Reference Range Interpretation [...] WBC 0-0 (BEAKER) (test code = 413) [id number] 23:41:00 Test Item Value Reference Range Interpretation Comments ACTIVATED CLOTTING TIME 92 sec TEST ED AT [place] [address] ([facility]) (test code = JAMIE HYL[place] [facility]) [address] [id number] 21:56:00 Test Item Value Reference Range Interpretation Comments ACTIVATED CLOTTING TIME 153 sec TEST ED AT [place] [address] ([facility]) (test code = JAMIE Cabrales [place] [address]) [address] [id number] 19:28:00 Test Item Value Reference Range Interpretation Comments ACTIVATED CLOTTING TIME 197 sec TEST ED AT [place] [address] ([facility]) (test code = JAMIE HYL[place] [facility]) [address] [id number] 17:41:00 Test Item Value Reference Range Interpretation Comments ACTIVATED CLOTTING TIME 246 sec TEST ED AT [place] [address] ([facility]) (test code = JAMIE Cabrales [place] [address]) [address] [id number] 12:36:00 Test Item Value Reference Range Interpretation Comments POTASSIUM (BEAKER) (test code = 4.0 meq/L 3.5-5.1 379) TROPONIN [id number] 12:03:00 Test Item Value Reference Range Interpretation [...] failure, acidosis, acute neurological disease, and persistent tachyarrhythmia.[id number] 11:44:00 Test Item Value Reference Range Interpretation Comments MAGNESIUM (BEAKER) (test code = 1.9 mg/dL 1.6-2.6 627) [id number] 11:37:00 Test Item Value Reference Range Interpretation Comments PARTIAL THROMBOPLASTIN TIME 98.3 seconds 22.5-36.0 H (BEAKER) (test code = 760) [id number] 04:04:00 Test Item Value Reference Range Interpretation Comments PARTIAL THROMBOPLASTIN TIME 92.5 seconds 22.5-36.0 H (BEAKER) (test code = 760) TROPONIN [id number] 02:06:00 Test Item Value Reference Range Interpretation [...] acute neurological disease, and persistent tachyarrhythmia.BASIC METABOLIC [id number] 01:56:00 Test Item Value Reference Range Interpretation [...] S NOT APPLICABLE FOR DIALYSIS PATIEN TS. [id number] 01:53:00 Test Item Value Reference Range Interpretation [...] 2.5-3.5 for patients with mechanical heart valves.PROTHROMBIN [id number] 01:50:00 Test Item Value Reference Range Interpretation [...] mechanical heart valves.CBC W/PLT COUNT & AUTO [id number] 01:43:00 Test Item Value Reference Range Interpretation [...] 0-1 PERCENT (BEAKER) (test code = 2801) [id number] 23:09:00 Test Item Value Reference Range Interpretation Comments RPR SCREEN (FELISHA) (test code = Nonreactive Nonreactive 420) TROPONIN [id number] 21:20:00 Test Item Value Reference Range Interpretation Comments TROPONIN I (FELISHA) (test code = 7.60 ng/mL 0.00-0.03 397) [...] failure, acidosis, acute neurological disease, and persistent tachyarrhythmia.[id number] 18:57:00 Test Item Value Reference Range Interpretation Comments PARTIAL THROMBOPLASTIN TIME 58.1 seconds 22.5-36.0 H (FELISHA) (test code = 760) TROPONIN [id number] 15:25:00 Test Item Value Reference Range Interpretation [...] for extra pokeRAD, CHEST, 1 VIEW, NON [id number] 11:13:00Reason for exam:->chest painFINAL REPORT HISTORY : [...] with some atherosclerotic calcification. Signed: Cheyenne Strauss MDReport Verified Da te/Time: 02/16/2018 11:13:08 Reading Location: [facility] Radiology Reading Room TROPONIN [id number] 09:59:00 Test Item Value Reference Range Interpretation [...] failure, acidosis, acute neurological disease, and persistent tachyarrhythmia.[id number] 09:06:00 Test Item Value Reference Range Interpretation Comments PARTIAL THROMBOPLASTIN TIME 26.7 seconds 22.5-36.0 (BEAKER) (test code = 760) Prior to initiating heparinPLATELET [id number] 08:48:00 Test Item Value Reference Range Interpretation Comments PLATELET COUNT (LISANDROAKER) (test 230 K/CU MM 150-450 code = 756) CT BRAIN WITHOUT IV CONTRAST - [id number] 06:53:00Reason for exam:->post-tpaFINAL REPORT EXAM: CT head [...] to CT modality and motion artifact.Signed: Barney Romero Verified Date/Time: 02/16/2018 06:53:18 Reading Location: [facility] [address] [place] [address] Reading Room ONIN [id number] 03:14:00 Test Item Value Reference Range Interpretation [...] acute neurological disease, and persistent tachyarrhythmia.BASIC METABOLIC [id number] 02:53:00 Test Item Value Reference Range Interpretation [...] S NOT APPLICABLE FOR DIALYSIS PATIEN TS. [id number] 02:48:00 Test Item Value Reference Range Interpretation [...] 2.5-3.5 for patients with mechanical heart valves.PROTHROMBIN [id number] 02:47:00 Test Item Value Reference Range Interpretation Comments PROTIME (BEAKER) (test code = 14.5 seconds 11.7-14.7 759) INR (BEAKER) (test code = 370) 1.1 <=5.9 RECOMMENDED COUMADIN/WARFARIN INR THERAPY RANGESSTANDARD DOSE: 2.0 - 3.0 Includes: PROPHYLAXIS for venous thrombosis, systemic embolization; TREATMENT for venous thrombosis and/or pulmonary embolus.HIGH RISK: Target INR is 2.5-3.5 for patients with mechanical heart valves.CBC W/PLT COUNT & AUTO [id number] 02:29:00 Test Item Value Reference Range Interpretation [...] PERCENT (BEAKER) (test code = 2801) TROPONIN [id number] 17:32:00 Test Item Value Reference Range Interpretation [...] acidosis, acute neurological disease, and persistent tachyarrhythmia.HEMOGLOBIN [id number] 11:13:00 Test Item Value Reference Range Interpretation Comments HEMOGLOBIN A1C (BEAKER) (test code = 5.4 % 4.3-6.1 368) [id number] 05:41:00 Test Item Value Reference Range Interpretation Comments THYROID STIMULATING HORMONE 0.94 uIU/mL 0.35-4.94 (BEAKER) (test code = 772) VITAMIN B12 AND [id number] 05:41:00 Test Item Value Reference Range Interpretation Comments VITAMIN B12 (BEAKER) (test code = 1440 pg/mL 213-816 H 774) FOLATE (BEAKER) (test code = 362) 7.6 ng/mL >=7.0 [id number] 05:07:00 Test Item Value Reference Range Interpretation Comments MAGNESIUM (BEAKER) 1.7 mg/dL 1.6-2.6 Specimen slightly (test code = 627) hemolyzed BASIC METABOLIC [id number] 05:07:00 Test Item Value Reference Range Interpretation [...] NOT APPLICABLE FOR DIALYSIS PATIEN TS. LIPID [id number] 05:07:00 Test Item Value Reference Range Interpretation [...] 2.5-3.5 for patients with mechanical heart valves.PROTHROMBIN [id number] 04:53:00 Test Item Value Reference Range Interpretation Comments PROTIME (BEAKER) (test code = 14.0 seconds 11.7-14.7 759) INR (BEAKER) (test code = 370) 1.1 <=5.9 RECOMMENDED COUMADIN/WARFARIN INR THERAPY RANGESSTANDARD DOSE: 2.0 - 3.0 Includes: PROPHYLAXIS for venous thrombosis, systemic embolization; TREATMENT for venous thrombosis and/or pulmonary embolus.HIGH RISK: Target INR is 2.5-3.5 for patients with mechanical heart valves.CBC W/PLT COUNT & AUTO [id number] 04:44:00 Test Item Value Reference Range Interpretation [...] (BEAKER) (test code = 2801) BASIC METABOLIC [id number] 16:02:00 Test Item Value Reference Range Interpretation [...] PATIEN TS. CBC W/PLT COUNT & AUTO [id number] 15:31:00 Test Item Value Reference Range Interpretation [...] = 2801) Notes Date/Time Note Provider Source 2023-02-28 Formatting of this note is different from the or iginal. [facility] 13:15:00-00:00 Images from the original note were not included. Venipuncture collection perf ormed by clean technique on the left anticubitus. Total of 1 attempts were made. Slight pressure and a bandage/dressing were applied to the site(s). The patient experienced n o complications. The followi ng specimens were processed according to instructions and sent to [facility] laboratories per lab order on 02/28/2023 : LT BLUE SST 1RST RED LAV 1 PPT DK GREEN (LiHep) DK GREEN (SodH) RIVERA DK BLUE (K2) DK BLUE (S) ACD Blood Culture NIPT/NTD Electronically signed by Ava Doshi at 2022 1:59 PM CDT 2023-02-21 Formatting of this note might be differe nt from the original. Skylar Ramos RN [facility] 13:13:30-00:00 Patient is currently admitte d to [facility] for Anemia and pleural effusion; admission date was 02.20.23. Discussed with rehab hospitalist Dr. Gamboa advised that patient is expected to d/ c from rehab Friday or next week. Wants patient to stay on schedule for 02.28.23 Labs dated 02.20.23: Hct 22.9 and Hgb 7.8 (copy of labs received and scanned to [facility]) [facility] Rehab callback: [phone]. 2023-02-19 [facility] 18:29:00-00:00 [facility] ([facility]) Gastroenterology Prog. Note REPORT #: [id number] REPORT STATUS: Signed DATE: 02/19/23 TIME: 9 PATIENT: CASEY LYONS UNIT #: [id number] ROOM #: [id number] BED: 1 : 37 AGE: 87 SEX: F ATTEND: Rich Whitaker MD ADM AUTHOR: Bennie Bruno MD ATTENTION *EDITS and/or ADDENDA must be made in Patient Ke eper for this note. * * Edits and ammendments created in [facility] are not visible * * in Patient Keeper or the legal medical record (HPF). * -- ASSESSMENT AND PLAN -- PROBLEMS: 1: Anemia A/P: EGD showed small AVMs in the body of the st bhavana and treated by APC. But these were very small. Famil y not interested in her going through a colonoscopy for further evaluation. They understand the risk of missing colon cancer. Ok to use ASA and DAPT. 2: Elevated troponin A/P: Cardiology consulted. 3: CKD (chronic kidney disease) A/P: Nephro on board. 4: Dementia A/P: stable dementia. -- SUBJECTIVE -- CHIEF COMPLAINT: Anemia HPI: I have spoken to the patients RN and heard the p atient issues in the past 24hrs. There have been no changes in GI point of view. No new complains. No Melena or Hematochezia or Hematemesis -- OBJECTIVE -- VITALS (02/18 18:29 - 02/19 18:29): Temperature C: 36.5 (36.5 - 36.6) Temperature source: Oral Pulse Rate 59 (51 - 59) Respiratory rate: 18 (16 - 19) Blood pressure: 131/73 (98/56 - 139/73) I/Os (02/18 07:00 - 02/19 07:00): Net 50 Intake 300 Output 250 -EXAM- GENERAL: Well developed, in no acute distress. HEAD: Normocephalic, atraumatic. EYES: PERRL, lids normal. NECK: Supple, No masses. CHEST: Grossly normal appearance. LUNGS: Clear bilaterally with normal respiratory effort. HEART: Regular rate and rhythm, normal S1, S2. ABDOMEN: Soft, non-tender, no masses noted. MUSCULOSKELETAL: No deformity. NEUROLOGICAL: No focal deficits. -- DATA -- MEDICATIONS ACETAMINOPHEN 650 MG PO Q4H PRN IPRATROPIUM/ALBUTEROL SULFATE 3 ML NEB Q6H PRN guaiFENesin 600 MG PO Q12H PRN MESALAMINE 800 MG PO BID hydrALAZINE HCL 10 MG IV Q6H PRN MEMANTINE HCL 5 MG PO BID DULoxetine HCL 20 MG PO DAILY FERROUS SULFATE 325 MG PO DAILY@0800 MONTELUKAST SODIUM 10 MG PO BEDTIME BENZONATATE 200 MG PO TID KETOTIFEN FUMARATE 1 DROP EACH EYE Q8HR PANTOPRAZOLE 40 MG PO Q12HR ASPIRIN 162 MG PO DAILY MELATONIN 5 MG PO BEDTIME clopidogreL 75 MG PO DAILY MULTIVITAMIN WITH FOLIC ACID 1 TAB PO DAILY GALANTAMINE HYDROBROMIDE 8 MG PO 0800,1800 amLODIPine BESYLATE 10 MG PO DAILY FUROSEMIDE 40 MG IV BID@0700,1500 ATORVASTATIN CALCIUM 80 MG PO BEDTIME LEVOTHYROXINE SODIUM 25 MCG PO DAILY@0600 carvediloL 25 MG PO BID MEALS ONDANSETRON HCL/PF 4 MG IV Q6H PRN LABS CBC W/AUTO DIFF (02/19/23 04:13) WHITE BLOOD CELL 7.4 RED BLOOD CELL 2.70 L HEMOGLOBIN 8.1L L HEMATOCRIT 25.3L L MEAN CELL VOLUME 94 MEAN CELL HGB 30.0 MEAN CELL HGB CONCENTRATION 32.0 RED CELL DISTRIBUTION WIDTH 16.8 H PLATELET COUNT 227 MEAN PLATELET VOLUME 11.8 NEUTROPHIL % 73.4 IMMATURE GRANULOCYTE % 0.4 LYMPHOCYTE % 14.1 MONOCYTE % 9.3 EOSINOPHIL % 2.7 BASOPHIL % 0.1 NUCLEATED RBC % 0.0 NEUTROPHIL # 5.46 IMMATURE GRANULOCYTE # 0.030 LYMPHOCYTE # 1.05 L MONOCYTE # 0.69 EOSINOPHIL # 0.20 BASOPHIL # 0.01 NUCLEATED RBC # 0.000 COMPREHENSIVE METABOLIC PANEL (02/19/23 04:13) SODIUM 135 POTASSIUM 4.0 CHLORIDE 101 CARBON DIOXIDE 30 ANION GAP 8.0 D GLUCOSE 111H H BLOOD UREA NITROGEN 80H H GLOMERULAR FILTRATION RATE 21 L CREATININE 2.2H H BUN/CREATININE RATIO 36.4 H TOTAL PROTEIN 5.2 L ALBUMIN 2.3 L CALCIUM 8.2 L BILIRUBIN TOTAL 0.5 SGOT/AST 18 SGPT/ALT 24 ALKALINE PHOSPHATASE 70 Signed in PatientKeeper by Bennie Bruno MD on at 18:29 Electronically Signed by Bennie Bruno MD on 01/23 at 1829 ATTENTION *EDITS and/or ADDENDA must be made in Patient Ke eper for this note. * * Edits and ammendments created in [facility] are not visible * * in Patient Keeper or the legal medical record (HPF). * [facility] #: [id number] END OF REPORT 2023-02-19 [facility] 13:57:00-00:00 [facility] ([facility]) Hospitalist D/C Summary REPORT #: [id number] REPORT STATUS: Signed DATE: 02/19/23 TIME: 1357 PATIENT: CASEY LYONS UNIT #: [id number] ROOM #: NC.[id number] BED: 1 : 37 AGE: 87 SEX: F ATTEND: Linda Whitaker MD ADM AUTHOR: Linda Whitaker MD ATTENTION *EDITS and/or ADDENDA must be made in Patient Ke eper for this note. * * Edits and ammendments created in [employer] are not visible * * in Patient Keeper or the legal medical record ([facility]). 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 - Cerebrovascular accident, old - Chronic kidney disease - CKD (chronic kidney disease) - Dementia - Elevated troponin - Gastrointestinal hemorrhage, unspecified - Hyperlipidemia LDL goal <70 - Hypertension - Non-ischemic myocardial injury (non-traumatic ) - Non-ST elevation (NSTEMI) myocardial infarcti on - NSTEMI (non-ST elevated myocardial infarction ) - Peripheral artery disease - Peripheral vascular disease - Pleural effusion - Post-operative state - Preop cardiovascular exam - SOB (shortness of breath) - Urinary tract infection, site not specified DISCHARGE DATE: 02/19/23 DISCHARGE DIAGNOSES: - Acute on chronic blood loss anemia - Anemia - Anemia, unspecified - Atherosclerotic heart disease of pam[place] coron jennifer artery without angina pectoris - Cerebrovascular accident, old - Chronic kidney disease - CKD (chronic kidney disease) - Dementia - Elevated troponin - Gastrointestinal hemorrhage, unspecified - Hyperlipidemia LDL goal <70 - Hypertension - Non-ischemic myocardial injury (non-traumatic ) - Non-ST elevation (NSTEMI) myocardial infarcti on - NSTEMI (non-ST elevated myocardial infarction ) - Peripheral artery disease - Peripheral vascular disease - Pleural effusion - Post-operative state - Preop cardiovascular exam - SOB (shortness of breath) - Urinary tract infection, site not specified -- HOSPITAL COURSE -- HOSPITAL COURSE: 87-year-old female with past medical history of hypertension, hypothyroidism CHF--unknown EF, peripheral artery disea se s/p bypass, carotid artery disease, dyslipidemia, coronary artery disease, chronic k idney disease--unknown baseline, CVA x2, dementia, hearing difficulties , iron deficiency anemia transferred from [facility] for evaluation of symptomatic anemia. She presented to [facility] with chest pain off and o n, shortness of breath progressively worsening. Patient denies any curr ent chest pain nausea, vomiting, diarrhea, constipation, blood in stool s. Patient received a unit of blood transfusion at other hospital. Most of the history was obtained by the son present at bedside. Pt admitted for acute on chronic anemia--iron deficiency, possible GI bleed, S/p PRBC transfusion, S/P EGD showed small AVMs in the body of the stomach and treated by APC. B ut these were very small. Family not interested in her going through a col onoscopy for further evaluation. S/p IV iron, Patient receive d iron later GI cleared the patient to start aspirin and Plavix. Patient also had acute of chronic CHF, pleural effusion, ECHO Ejection Fraction = 45-50%. BNP r eveiwed, CT chest: Large bilateral pleural effusions with underlying comp ressive atelectasis. Cardiomegaly. S/p R thoracentesis with removal o f 900 mL yellow fluid, S/p Rocephin and azithromycin, IV lasix. Patient als o had NSTEMI, Complains of off-and-on chest pain and sh ortness of breath---denies any chest pain, Elevated troponin, ECHO: Ejection Fraction = 45-50%, Card iology closely followed the patient, started the patient on Plavix. Patient and the family wants to hold off on any interventions wanted medical manageme nt only. Patient's condition remained stable, PT OT evaluated the patient, IR F arranged. All consulting services cleared the patient for DC planning. Alexis ram was discharged to rehab in stable condition plan to take medications as advised and follow-up outpatient with primary care provider, cardiology, pulmonary and GI outpatient. We will plan was discussed with the preet ent and she understood completely, all questions and concerns were addressed. -- DISCHARGE MEDICATIONS -- ALLERGIES: No Known Allergies (UNKNOWN - Allergy) DISCHARGE MEDICATIONS: amLODIPine Tab (Norvasc Tab) 10MG PO DAILY, Disp : 60 tablet, Refills: 0 Apriso Cap (NF) (Apriso Cap (NF)) 0.375 gram 4 C AP PO DAILY Aspirin EC Tab (Ecotrin Tab) 81 MG PO DAILY Atorvastatin Tab (Lipitor Tab) 80 MG PO BEDTIME Carvedilol Tab (Coreg Tab) 25 MG PO BID MEALS Clopidogrel Tab (Plavix Tab) 75MG PO DAILY, Disp : 30 tablet, Refills: [address] Cap (Cymbalta Cap) oral (Route: OR AL) Ferrous Sulfate Tab (Feosol Tab) oral (Route: OR AL) Furosemide Tab (Lasix Tab) 40 MG PO DAILY, Disp: 30 tablet, Refills: 0 galantamine ER 24 hr capsule,extended release 8 MG PO DAILY Levothyroxine Tab (Synthroid Tab) 25 MCG PO PAYAM Y Memantine Tab (Namenda Tab) oral (Route: ORAL) Multivitamin Tab (Theragran Tab) 1 TAB PO DAILY olopatadine 0.2 % eye drops 1 DROP EACH EYE BID PRN eye allergies Pantoprazole Oral Susp (Protonix Oral Susp) 40 M G PO q 12 hrs (30 days supply), Disp: 2 x 30 packet, Refills: 0 Singulair tablet (montelukast) 10 MG PO DAILY -- DISCHARGE INSTRUCTIONS -- ADMISSION ORDERS: Discharge Follow Up In 1-2 weeks; In 1-2 weeks; MINISTERIO WITT MD; ALDEN ROSAS MD; BENNIE BRUNO MD; In 1-2 weeks; In 1-2 weeks; In 1-2 weeks; PAULO:Ministerio Witt MD; TOBIN:Alden Rosas; YANCY:Bennie Bruno MD Details: Order number: [id number] Category: ADT - Admission Orders Order status: Transmitted Details: Consulting provider 1: PAULO:Ministerio Witt MD Consulting provider 1: Cardiology Consult follow up timeframe: In 1-2 weeks Consulting provider 2: TOBIN:Alden Rosas MD Consulting provider 2: Pulmonary Consult follow up timeframe: In 1-2 weeks Consulting provider 3: YANCY:Bennie Bruno MD Consulting provider 3: Infectious Disease Consult follow up timeframe: In 1-2 weeks Ordered by: Linda Whitaker MD Feb 19, 2023 11:16am Entered by: Linda Whitaker MD Service date: Feb 19, 2023 11:15am PK DISCHARGE ORDERS: DC Order - No eCQM 2019. Details: Details: Order number: [id number] Category: PKDC - PK Discharge Orders Order status: Transmitted Details: Discharge Parameters: IP Rehab bed ready Discharge order with parameter: Yes Discharge to: Inpatient Rehab Facility Diet: Cardiac Low Fat Activity: As Tolerated PCP follow up timeframe: In 1-2 weeks Follow up labs, procedures, treatments: CBC, CMP Additional Discharge Routines: PCP Follow-Up Ordered by: Linda Whitaker MD Feb 19, 2023 11:16am Entered by: Linda Whitaker MD Service date: Feb 19, 2023 11:15am Discharge Luke w/Instruction In 1-2 weeks; Yes; PCP Follow-Up ADDTIONAL DISCHARGE INSTRUCTIONS: Emergency Instructions: The patient was instruct ed to present to the nearest Emergency Department or call 911 should their sy mptoms return or worsen.; -- OBJECTIVE -- VITALS (02/18 13:58 - 02/19 13:58): Temperature C: 36.6 (36.5 - 36.6) Temperature source: Oral Pulse Rate 51 (51 - 63) Respiratory rate: 16 (16 - 19) Blood pressure: 98/61 (98/56 - 139/69) I/Os (02/18 07:00 - 02/19 07:00): Net 50 Intake 300 Output 250 -EXAM- GENERAL: Well developed, in no acute distress. HEAD: Normocephalic, atraumatic. EYES: PERRL, lids normal. NECK: Supple, No masses. CHEST: Grossly normal appearance. LUNGS: Decreased bilateral bases, improving. HEART: Regular rate and rhythm, normal S1, S2. ABDOMEN: Soft, non-tender, no masses noted. MUSCULOSKELETAL: No deformity. NEUROLOGICAL: No focal deficits. -- DATA -- LABS CBC W/AUTO DIFF (02/19/23 04:13) WHITE BLOOD CELL 7.4 RED BLOOD CELL 2.70 L HEMOGLOBIN 8.1L L HEMATOCRIT 25.3L L MEAN CELL VOLUME 94 MEAN CELL HGB 30.0 MEAN CELL HGB CONCENTRATION 32.0 RED CELL DISTRIBUTION WIDTH 16.8 H PLATELET COUNT 227 MEAN PLATELET VOLUME 11.8 NEUTROPHIL % 73.4 IMMATURE GRANULOCYTE % 0.4 LYMPHOCYTE % 14.1 MONOCYTE % 9.3 EOSINOPHIL % 2.7 BASOPHIL % 0.1 NUCLEATED RBC % 0.0 NEUTROPHIL # 5.46 IMMATURE GRANULOCYTE # 0.030 LYMPHOCYTE # 1.05 L MONOCYTE # 0.69 EOSINOPHIL # 0.20 BASOPHIL # 0.01 NUCLEATED RBC # 0.000 COMPREHENSIVE METABOLIC PANEL (02/19/23 04:13) SODIUM 135 POTASSIUM 4.0 CHLORIDE 101 CARBON DIOXIDE 30 ANION GAP 8.0 D GLUCOSE 111H H BLOOD UREA NITROGEN 80H H GLOMERULAR FILTRATION RATE 21 L CREATININE 2.2H H BUN/CREATININE RATIO 36.4 H TOTAL PROTEIN 5.2 L ALBUMIN 2.3 L CALCIUM 8.2 L BILIRUBIN TOTAL 0.5 SGOT/AST 18 SGPT/ALT 24 ALKALINE PHOSPHATASE 70 FLD PROT (02/18/23 14:05) FLUID PROTEIN < 2.0 FLD LDH (02/18/23 14:05) FLUID LDH 117 FLD GLU (02/18/23 14:05) FLUID GLUCOSE 117 -- ATTESTATION -- TIME SPENT ON PATIENT CARE: - Direct - Discharge planning 50 minutes - > 50% of time spent on Counseling/Care Coordi nation CARE ACTIVITIES / CARE COORDINATION: - I have reviewed the history and repeated the up elements - I have seen and examined this patient - I have reviewed the progress in the clinical course since the last examination - I have discussed the preet ent's condition with other members of the care team Signed in PatientKeeper by Linda Whitaker MD on at 14:03 Electronically Signed by Linda Whitaker MD on 01/23 at 1403 ATTENTION *EDITS and/or ADDENDA must be made in Patient [facility] for this note. * * Edits and ammendments created in [employer] are not visible * * in Patient Keeper or the legal medical record ([facility]). * RPT #: [id number] END OF REPORT 2023-02-19 [facility] 12:03:00-00:00 [facility] ([facility]) Cardiology Progress Notes REPORT #: [id number] REPORT STATUS: Signed DATE: 02/19/23 TIME: 1203 PATIENT: CASEY LYONS UNIT #: [id number] ROOM #: [id number] BED: 1 : 37 AGE: 87 SEX: F ATTEND: Linda Whitaker MD ADM AUTHOR: Ministerio Witt MD ATTENTION *EDITS and/or ADDENDA must be made in Patient [facility] for this note. * * Edits and ammendments created in [employer] are not visible * * in Patient Keeper or the legal medical record ([facility]). * -- ASSESSMENT AND PLAN -- PROBLEMS: 1: Cerebrovascular accident, old A/P: According to daughter patient was actually diagnosed with Atrial fibrillation along with CVA and started on eliqu is 2.5 mg bid as outpatient. Going forward best option given anemia a nd GI bleed is to start patient on ASA and Plavix Get Loop recorder as out patient If has more episodes of afib on loop then either resume ASA/ Eliquis or plan watchman She needs to be on ASA/ Plavix post watchman in any case for certain time period. 2: SOB (shortness of breath) A/P: sec to pleural effusion and DHF and CKD s/p Thoracentesis Feels better Change Lasix to 40 mg P QD 3: Pleural effusion A/P: s/p thoracentesis Pulm on board 4: Elevated troponin A/P: 2y to severe anemia also has hx of prior CAD and stents probably type II TN poor cath candidate for revascularization due to anemia/gibleed. now on ASA / BB 5: Post-operative state A/P: POST OP EGD tolerated egd without complication 6: Anemia A/P: RECURRENT s/p repeated transfusions per GI doing ok on ASA 7: Hypertension A/P: BP ok on meds. NO ARB due to elevated creat 8: Hyperlipidemia LDL goal <70 A/P: on statin 9: Peripheral vascular disease A/P: s/p bilateral LE bypasses? 10: Chronic kidney disease A/P: as per med team MOnitor renal function. creat stable. CONSULTANTS: ok to DC home by cardio -- SUBJECTIVE -- PATIENT NARRATIVE: Seen in the room resting PLan to DC to rehab today NO fever Breathing is better -REVIEW OF SYSTEMS- COMMENT: general review of systems performed and was otherwise unremarkable except noted above -- OBJECTIVE -- VITALS (02/18 12:03 - 02/19 12:03): Temperature C: 36.6 (36.5 - 36.6) Temperature source: Oral Pulse Rate 56 (51 - 63) Respiratory rate: 18 (17 - 19) Blood pressure: 134/69 (117/7 - 191/69) I/Os (02/18 07:00 - 02/19 07:00): Net 50 Intake 300 Output 250 ADDITIONAL V/S: Tele NSR -EXAM- OTHER: Gen: older female. appears weak. appears pale. HEENT: nc/at. pupils equal. NECK: no jvd. no bruits LUNGS: reduced A/E in both bases L > R CARDIAC: regular rate and rhythm. normal s1 and s2. 2/6 systolic murmur ABDOMEN: soft. normal bowel sounds. not tender. EXTREMITIES: no edema. absent pulses.. NEUROLOGY: alert and oriented x 2 -- DATA -- MEDICATIONS ACETAMINOPHEN 650 MG PO Q4H PRN IPRATROPIUM/ALBUTEROL SULFATE 3 ML NEB Q6H PRN guaiFENesin 600 MG PO Q12H PRN MESALAMINE 800 MG PO BID hydrALAZINE HCL 10 MG IV Q6H PRN MEMANTINE HCL 5 MG PO BID DULoxetine HCL 20 MG PO DAILY FERROUS SULFATE 325 MG PO DAILY@0800 MONTELUKAST SODIUM 10 MG PO BEDTIME BENZONATATE 200 MG PO TID KETOTIFEN FUMARATE 1 DROP EACH EYE Q8HR PANTOPRAZOLE 40 MG PO Q12HR ASPIRIN 162 MG PO DAILY MELATONIN 5 MG PO BEDTIME clopidogreL 75 MG PO DAILY MULTIVITAMIN WITH FOLIC ACID 1 TAB PO DAILY GALANTAMINE HYDROBROMIDE 8 MG PO 0800,1800 amLODIPine BESYLATE 10 MG PO DAILY FUROSEMIDE 40 MG IV BID@0700,1500 ATORVASTATIN CALCIUM 80 MG PO BEDTIME LEVOTHYROXINE SODIUM 25 MCG PO DAILY@0600 carvediloL 25 MG PO BID MEALS ONDANSETRON HCL/PF 4 MG IV Q6H PRN LABS CBC W/AUTO DIFF (02/19/23 04:13) WHITE BLOOD CELL 7.4 RED BLOOD CELL 2.70 L HEMOGLOBIN 8.1L L HEMATOCRIT 25.3L L MEAN CELL VOLUME 94 MEAN CELL HGB 30.0 MEAN CELL HGB CONCENTRATION 32.0 RED CELL DISTRIBUTION WIDTH 16.8 H PLATELET COUNT 227 MEAN PLATELET VOLUME 11.8 NEUTROPHIL % 73.4 IMMATURE GRANULOCYTE % 0.4 LYMPHOCYTE % 14.1 MONOCYTE % 9.3 EOSINOPHIL % 2.7 BASOPHIL % 0.1 NUCLEATED RBC % 0.0 NEUTROPHIL # 5.46 IMMATURE GRANULOCYTE # 0.030 LYMPHOCYTE # 1.05 L MONOCYTE # 0.69 EOSINOPHIL # 0.20 BASOPHIL # 0.01 NUCLEATED RBC # 0.000 COMPREHENSIVE METABOLIC PANEL (02/19/23 04:13) SODIUM 135 POTASSIUM 4.0 CHLORIDE 101 CARBON DIOXIDE 30 ANION GAP 8.0 D GLUCOSE 111H H BLOOD UREA NITROGEN 80H H GLOMERULAR FILTRATION RATE 21 L CREATININE 2.2H H BUN/CREATININE RATIO 36.4 H TOTAL PROTEIN 5.2 L ALBUMIN 2.3 L CALCIUM 8.2 L BILIRUBIN TOTAL 0.5 SGOT/AST 18 SGPT/ALT 24 ALKALINE PHOSPHATASE 70 FLD PROT (02/18/23 14:05) FLUID PROTEIN < 2.0 FLD LDH (02/18/23 14:05) FLUID LDH 117 FLD GLU (02/18/23 14:05) FLUID GLUCOSE 117 Signed in PatientKeeper by Ministerio Witt MD on 02/19/23 at 12:08 Electronically Signed by Ministerio Witt MD on 0 02/19/23 at 1208 ATTENTION *EDITS and/or ADDENDA must be made in Patient Ke eper for this note. * * Edits and ammendments created in [facility] are not visible * * in Patient Keeper or the legal medical record ([facility]). * RPT #: [id number] END OF REPORT 2023-02-19 [facility] 11:16:00-00:00 [facility] ([facility]) Med Order Sheet REPORT #: [id number] REPORT STATUS: Signed DATE: 02/19/23 TIME: 1116 PATIENT: CASEY LYONS UNIT #: [id number] ROOM #: [id number] BED: 1 : [birth year] AGE: 87 SEX: F ATTEND: Linda Whitaker MD ADM AUTHOR: Linda Whitaker MD ATTENTION *EDITS and/or ADDENDA must be made in Patient Ke eper for this note. * * Edits and ammendments created in [facility] are not visible * * in Patient Keeper or the legal medical record ([facility]). * Discharge Medication Reconciliation DISCHARGE MEDICATION LIST amLODIPine Tab (Norvasc Tab) Dose: 10MG PO DAILY, Disp: 60 tablet, Refills: 0 Apriso Cap (NF) (Apriso Cap (NF)) Dose:0.375 gram 4 CAP PO DAILY Aspirin EC Tab (Ecotrin Tab) Dose: 81 MG PO DAILY Atorvastatin Tab (Lipitor Tab) Dose: 80 MG PO BEDTIME Carvedilol Tab (Coreg Tab) Dose: 25 MG PO BID MEALS DULoxetine DR Cap (Cymbalta Cap) Dose: oral Ferrous Sulfate Tab (Feosol Tab) Dose: oral Furosemide Tab (Lasix Tab) Dose: 40 MG PO DAILY, Disp: 30 tablet, Refills: 0 galantamine ER 24 hr capsule,extended release Dose: 8 MG PO DAILY Levothyroxine Tab (Synthroid Tab) Dose: 25 MCG PO DAILY Memantine Tab (Namenda Tab) Dose: oral Multivitamin Tab (Theragran Tab) Dose: 1 TAB PO DAILY olopatadine 0.2 % eye drops Dose: 1 DROP EACH EYE BID PRN eye allergies Pantoprazole Oral Susp (Protonix Oral Susp) Dose: 40 MG PO q 12 hrs, Disp: 2 x 30 packet, R efills: 0 - 30 days supply Singulair tablet (montelukast) Dose: 10 MG PO DAILY Clopidogrel Tab (Plavix Tab) Dose: 75MG PO DAILY, Disp: 30 tablet, Refills: 0 STOPPED HOME MEDICATIONS Dc'd: Apixaban Tab (Eliquis Tab) 2.5 MG PO DAILY Dc'd: Valsartan Tab (Diovan Tab) 40 MG PO DAILY STOPPED HOSPITAL MEDICATIONS Dc'd: Acetaminophen Tab (Tylenol Tab) 650MG PO Q 4H PRN pain 1-3/temp > 100.5/headacheDc'd: Albuterol/Ipratrop Neb Soln (Duoneb Neb Soln) 3ML NEB Q6H PRN wheezing / shortness of breathDc'd: Benzonat ate Cap (Tessalon Perles Cap) 200MG PO TIDDc'd: guaiFENesin ER Tab (Mucin ex Tab) 600MG PO Q12H PRN coughDc'd: hydrALAZINE Inj (Apresoline Inj) 10MG IV Q6H PRN sbp greater than 180Dc'd: Melatonin Tab (Melatonin Tab) 5MG PO BE DTIMEDc'd: Ondansetron Inj (Zofran Inj) 4MG IV Q6H PRN nausea and vomitingE lectronically Signed in PatientKeeper by Linda Whitaker on 02/19/23 11:1 5 Electronically Signed by Linda Whitaker MD on 01/23 at 1116 ATTENTION *EDITS and/or ADDENDA must be made in Patient Ke eper for this note. * * Edits and ammendments created in [facility] are not visible * * in Patient Keeper or the legal medical record ([facility]). * [facility] #: [id number] END OF REPORT 2023-02-19 [facility] 09:59:00-00:00 [facility] ([facility]) Pulmonology Progress Note REPORT #: [id number] REPORT STATUS: Signed DATE: 02/19/23 TIME: 958 PATIENT: CASEY LYONS UNIT #: [id number] ROOM #: [id number] BED: 1 : 37 AGE: 87 SEX: F ATTEND: Linda Whitaker MD ADM AUTHOR: Alden Rosas MD ATTENTION *EDITS and/or ADDENDA must be made in Patient Ke eper for this note. * * Edits and ammendments created in [employer] are not visible * * in Patient Keeper or the legal medical record ([facility]). * -- ASSESSMENT AND PLAN -- GENERAL ASSESSMENT: [facility] Assessment Acute hypoxic respiratory failure Pleural effusions Acute on chronic HFpEF Possible pneumonia NSTEMI Acute on chronic anemia GI bleed CAD Hypothyroidism HTN CKD Plan: -Chest x-ray reviewed- bilateral lower lobe opac ities with pleural effusions, not much change on comparison to previous chest x-ray 02/10 -Suspect volume overload rather than pneumonia b ased on presentation, also received transfusion -Elevated BNP noted, continue IV Lasix -TTE reviewed, EF 45-50%, Cardiology following -On 2 L nasal cannula O2 -room air, wean for sat s more than 92% -CT chest reviewed -moderate bilateral pleural e ffusions with atelectasis -Status post right-sided tho racentesis 02/14 -900 cc removed, transudate, follow up cultures and cytology. repeat chest x -ray reviewed- trace effusion on right with small left-sided effusion; thoracentesis or dered per patient preference-200 cc removed, transudate, follow-up cultures and cytology -Stopped empiric antibiotics as unlikely to be p neumonia -Former smoker-continue bronchodilators, changed to as needed -BLOW PIT OPERATOR eval noted, aspiration precautions -Repeat chest x-ray with trace effusions, improv ed aeration SCD for DVT prophylaxis Plan of care discussed in detail with patient at bedside, answered questions Discussed with , discharge planning, noted plan for IRF --------- Subjective: EVI noted overnight. Discussed with staff. Patient seen and examined. On room air Denies dyspnea or cough S/p thoracentesis yesterday HPI: 87-year-old female with past medical history as below admitted from [facility] with symptomatic anemia. Received PRBC, a lso found to have NSTEMI and underwent EGD. had worsening chest x-ray and Pul monary Service consulted. Patient complains of shortne ss of breath with exertion and nonproductive cough, minimal chest discomfort, no fever Past medical history: hypertension, hypothyroidi sm, CHF, PVD, current carotid artery disease, dyslipidemia, CAD, CKD, CVA, dem entia, hearing loss, iron deficiency anemia PSurgHx: bilateral femoral popliteal bypass, hys terectomy FamHx: noncontributory SocHx: former smoker, quit 15 years back Review of systems: 14 point review system negati ve unless listed above Physical Exam General: NAD, thin, frail Eyes: Anicteric sclerae. Mouth: MMM Neck: Supple. CV: Regular rate and rhythm. Normal S1 and S2. Pulm: Good effort, diminished BS Abdomen: Soft, nontender.BS+ Extremities: No lower extremity edema. Skin: Warm, dry. Neuro: Awake and alert, no focal neurological de ficit Psych: normal mood -- OBJECTIVE -- VITALS (02/18 09:59 - 02/19 09:59): Temperature C: 36.6 (36.4 - 36.6) Temperature source: Oral Pulse Rate 56 (51 - 63) Respiratory rate: 18 (17 - 19) Blood pressure: 134/69 (117/7 - 191/69) I/Os (02/18 07:00 - 02/19 07:00): Net 50 Intake 300 Output 250 -- DATA -- MEDICATIONS ACETAMINOPHEN 650 MG PO Q4H PRN guaiFENesin 600 MG PO Q12H PRN MESALAMINE 800 MG PO BID hydrALAZINE HCL 10 MG IV Q6H PRN MEMANTINE HCL 5 MG PO BID DULoxetine HCL 20 MG PO DAILY FERROUS SULFATE 325 MG PO DAILY@0800 MONTELUKAST SODIUM 10 MG PO BEDTIME BENZONATATE 200 MG PO TID KETOTIFEN FUMARATE 1 DROP EACH EYE Q8HR PANTOPRAZOLE 40 MG PO Q12HR ASPIRIN 162 MG PO DAILY MELATONIN 5 MG PO BEDTIME clopidogreL 75 MG PO DAILY MULTIVITAMIN WITH FOLIC ACID 1 TAB PO DAILY IPRATROPIUM/ALBUTEROL SULFATE 3 ML NEB RTQ6H WA GALANTAMINE HYDROBROMIDE 8 MG PO 0800,1800 amLODIPine BESYLATE 10 MG PO DAILY FUROSEMIDE 40 MG IV BID@0700,1500 ATORVASTATIN CALCIUM 80 MG PO BEDTIME LEVOTHYROXINE SODIUM 25 MCG PO DAILY@0600 carvediloL 25 MG PO BID MEALS ONDANSETRON HCL/PF 4 MG IV Q6H PRN LABS CBC W/AUTO DIFF (02/19/23 04:13) WHITE BLOOD CELL 7.4 RED BLOOD CELL 2.70 L HEMOGLOBIN 8.1L L HEMATOCRIT 25.3L L MEAN CELL VOLUME 94 MEAN CELL HGB 30.0 MEAN CELL HGB CONCENTRATION 32.0 RED CELL DISTRIBUTION WIDTH 16.8 H PLATELET COUNT 227 MEAN PLATELET VOLUME 11.8 NEUTROPHIL % 73.4 IMMATURE GRANULOCYTE % 0.4 LYMPHOCYTE % 14.1 MONOCYTE % 9.3 EOSINOPHIL % 2.7 BASOPHIL % 0.1 NUCLEATED RBC % 0.0 NEUTROPHIL # 5.46 IMMATURE GRANULOCYTE # 0.030 LYMPHOCYTE # 1.05 L MONOCYTE # 0.69 EOSINOPHIL # 0.20 BASOPHIL # 0.01 NUCLEATED RBC # 0.000 COMPREHENSIVE METABOLIC PANEL (02/19/23 04:13) SODIUM 135 POTASSIUM 4.0 CHLORIDE 101 CARBON DIOXIDE 30 ANION GAP 8.0 D GLUCOSE 111H H BLOOD UREA NITROGEN 80H H GLOMERULAR FILTRATION RATE 21 L CREATININE 2.2H H BUN/CREATININE RATIO 36.4 H TOTAL PROTEIN 5.2 L ALBUMIN 2.3 L CALCIUM 8.2 L BILIRUBIN TOTAL 0.5 SGOT/AST 18 SGPT/ALT 24 ALKALINE PHOSPHATASE 70 FLD PROT (02/18/23 14:05) FLUID PROTEIN < 2.0 FLD LDH (02/18/23 14:05) FLUID LDH 117 FLD GLU (02/18/23 14:05) FLUID GLUCOSE 117 Signed in PatientKeeper by Alden Rosas MD o n 02/19/23 at 10:02 at 1002 ATTENTION *EDITS and/or ADDENDA must be made in Patient Ke eper for this note. * * Edits and ammendments created in [facility] are not visible * * in Patient Keeper or the legal medical record ([facility]). * [facility] #: [id number] END OF REPORT 2023-02-18 [facility] 22:02:00-00:00 [facility] ([facility]) Gastroenterology Prog. Note REPORT #: [id number] REPORT STATUS: Signed DATE: 02/18/23 TIME: 2201 PATIENT: CASEY LYONS UNIT #: [id number] ROOM #: [id number] BED: 1 : 37 AGE: 87 SEX: F ATTEND: Linda Whitaker MD ADM AUTHOR: Bennie Bruno MD ATTENTION *EDITS and/or ADDENDA must be made in Patient Ke eper for this note. * * Edits and ammendments created in [employer] are not visible * * in Patient Keeper or the legal medical record ([facility]). 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 But these were very small. Famil y not interested in her going through a colonoscopy for further evaluation. They understand the risk of missing colon cancer. Ok to use ASA and DAPT. 2: Elevated troponin A/P: Cardiology consulted. 3: CKD (chronic kidney disease) A/P: Nephro on board. 4: Dementia A/P: stable dementia. -- SUBJECTIVE -- CHIEF COMPLAINT: Anemia HPI: I have spoken to the patients RN and heard the p atient issues in the past 24hrs. There have been no changes in GI point of view. No new complains. No Melena or Hematochezia or Hematemesis -- OBJECTIVE -- VITALS (02/17 22:03 - 02/18 22:03): Temperature C: 36.5 (36.4 - 37.0) Temperature source: Oral Pulse Rate 56 (53 - 63) Respiratory rate: 19 (17 - 19) Blood pressure: 139/56 (114/7 - 191/65) -EXAM- GENERAL: Well developed, in no acute distress. HEAD: Normocephalic, atraumatic. EYES: PERRL, lids normal. NECK: Supple, No masses. CHEST: Grossly normal appearance. LUNGS: Clear bilaterally with normal respiratory effort. HEART: Regular rate and rhythm, normal S1, S2. ABDOMEN: Soft, non-tender, no masses noted. MUSCULOSKELETAL: No deformity. NEUROLOGICAL: No focal deficits. -- DATA -- MEDICATIONS ACETAMINOPHEN 650 MG PO Q4H PRN guaiFENesin 600 MG PO Q12H PRN MESALAMINE 800 MG PO BID hydrALAZINE HCL 10 MG IV Q6H PRN MEMANTINE HCL 5 MG PO BID DULoxetine HCL 20 MG PO DAILY FERROUS SULFATE 325 MG PO DAILY@0800 MONTELUKAST SODIUM 10 MG PO BEDTIME BENZONATATE 200 MG PO TID KETOTIFEN FUMARATE 1 DROP EACH EYE Q8HR PANTOPRAZOLE 40 MG PO Q12HR ASPIRIN 162 MG PO DAILY MELATONIN 5 MG PO BEDTIME MULTIVITAMIN WITH FOLIC ACID 1 TAB PO DAILY IPRATROPIUM/ALBUTEROL SULFATE 3 ML NEB RTQ6H WA GALANTAMINE HYDROBROMIDE 8 MG PO 0800,1800 amLODIPine BESYLATE 10 MG PO DAILY FUROSEMIDE 40 MG IV BID@0700,1500 ATORVASTATIN CALCIUM 80 MG PO BEDTIME LEVOTHYROXINE SODIUM 25 MCG PO DAILY@0600 carvediloL 25 MG PO BID MEALS ONDANSETRON HCL/PF 4 MG IV Q6H PRN LABS COMPREHENSIVE METABOLIC PANEL (02/18/23 04:42) SODIUM 137 POTASSIUM 4.4 CHLORIDE 101 CARBON DIOXIDE 27 ANION GAP 13.4 D GLUCOSE 119H H BLOOD UREA NITROGEN 74H H GLOMERULAR FILTRATION RATE 24 L CREATININE 2.0H H BUN/CREATININE RATIO 37.0 H TOTAL PROTEIN 5.4 L ALBUMIN 2.4 L CALCIUM 8.7 BILIRUBIN TOTAL 0.3 SGOT/AST 17 SGPT/ALT 24 ALKALINE PHOSPHATASE 77 CBC W/AUTO DIFF (02/18/23 04:42) WHITE BLOOD CELL 10.0 RED BLOOD CELL 3.02 L HEMOGLOBIN 9.1L L HEMATOCRIT 28.4L L MEAN CELL VOLUME 94 MEAN CELL HGB 30.1 MEAN CELL HGB CONCENTRATION 32.0 RED CELL DISTRIBUTION WIDTH 17.0 H PLATELET COUNT 257 MEAN PLATELET VOLUME 11.5 NEUTROPHIL % 80.0 H IMMATURE GRANULOCYTE % 0.5 LYMPHOCYTE % 9.8 L MONOCYTE % 7.7 EOSINOPHIL % 1.8 BASOPHIL % 0.2 NUCLEATED RBC % 0.0 NEUTROPHIL # 8.03 H IMMATURE GRANULOCYTE # 0.050 LYMPHOCYTE # 0.98 L MONOCYTE # 0.77 EOSINOPHIL # 0.18 BASOPHIL # 0.02 NUCLEATED RBC # 0.000 Signed in PatientKeeper by Bennie Bruno MD on at 22:03 Electronically Signed by Bennie Bruno MD on 01/22 03/15 at 2203 ATTENTION *EDITS and/or ADDENDA must be made in Patient Ke eper for this note. * * Edits and ammendments created in [employer] are not visible * * in Patient Keeper or the legal medical record ([facility]). * [facility] #: [id number] END OF REPORT 2023-02-18 [facility] 16:47:00-00:00 [facility] ([facility]) Cardiology Progress Notes REPORT #: [id number] REPORT STATUS: Signed DATE: 02/18/23 TIME: 1646 PATIENT: CASEY LYONS UNIT #: [id number] ROOM #: [id number] BED: 1 : 37 AGE: 87 SEX: F ATTEND: Linda Whitaker MD ADM AUTHOR: Ministerio Witt MD ATTENTION *EDITS and/or ADDENDA must be made in Patient Ke eper for this note. * * Edits and ammendments created in [employer] are not visible * * in Patient Keeper or the legal medical record ([facility]). * -- ASSESSMENT AND PLAN -- PROBLEMS: 1: Cerebrovascular accident, old A/P: According to daughter patient was actually diagnosed with Atrial fibrillation along with CVA and started on eliqu is 2.5 mg bid as outpatient. Going forward best option given anemia a nd GI bleed is to start patient on ASA and Plavix Get Loop recorder as out patient If has more episodes of afib on loop then either resume ASA/ Eliquis or plan watchman She needs to be on ASA/ Plavix post watchman in any case for certain time period. 2: SOB (shortness of breath) A/P: sec to pleural effusion and DHF and CKD s/p Thoracentesis Feels better ON Lasix 40 mg IV BID Creat stable 3: Pleural effusion A/P: s/p thoracentesis Pulm on board 4: Elevated troponin A/P: 2y to severe anemia also has hx of prior CAD and stents probably type II TN poor cath candidate for revascularization due to anemia/gibleed. now on ASA / BB 5: Post-operative state A/P: POST OP EGD tolerated egd without complication 6: Anemia A/P: RECURRENT s/p repeated transfusions per GI doing ok on ASA 7: Hypertension A/P: BP ok on meds. NO ARB due to elevated creat 8: Hyperlipidemia LDL goal <70 A/P: on statin 9: Peripheral vascular disease A/P: s/p bilateral LE bypasses? 10: Chronic kidney disease A/P: as per med team MOnitor renal function. creat stable. -- SUBJECTIVE -- PATIENT NARRATIVE: Seen in the room s/p thoracentesis. Doing ok Daughter at bedside. NO fever Breathing is better -REVIEW OF SYSTEMS- COMMENT: general review of systems performed and was otherwise unremarkable except noted above -- OBJECTIVE -- VITALS (02/17 16:47 - 02/18 16:47): Temperature C: 36.6 (36.4 - 37.0) Pulse Rate 63 (53 - 63) Respiratory rate: 17 (16 - 18) Blood pressure: 137/64 (104/7 - 191/66) ADDITIONAL V/S: Tele NSR -EXAM- OTHER: Gen: older female. appears weak. appears pale. HEENT: nc/at. pupils equal. NECK: no jvd. no bruits LUNGS: reduced A/E in both bases L > R CARDIAC: regular rate and rhythm. normal s1 and s2. 2/6 systolic murmur ABDOMEN: soft. normal bowel sounds. not tender. EXTREMITIES: no edema. absent pulses.. NEUROLOGY: alert and oriented x 2 -- DATA -- MEDICATIONS ACETAMINOPHEN 650 MG PO Q4H PRN guaiFENesin 600 MG PO Q12H PRN MESALAMINE 800 MG PO BID hydrALAZINE HCL 10 MG IV Q6H PRN MEMANTINE HCL 5 MG PO BID DULoxetine HCL 20 MG PO DAILY FERROUS SULFATE 325 MG PO DAILY@0800 MONTELUKAST SODIUM 10 MG PO BEDTIME BENZONATATE 200 MG PO TID KETOTIFEN FUMARATE 1 DROP EACH EYE Q8HR PANTOPRAZOLE 40 MG PO Q12HR ASPIRIN 162 MG PO DAILY MELATONIN 5 MG PO BEDTIME MULTIVITAMIN WITH FOLIC ACID 1 TAB PO DAILY IPRATROPIUM/ALBUTEROL SULFATE 3 ML NEB RTQ6H WA GALANTAMINE HYDROBROMIDE 8 MG PO 0800,1800 amLODIPine BESYLATE 10 MG PO DAILY FUROSEMIDE 40 MG IV BID@0700,1500 ATORVASTATIN CALCIUM 80 MG PO BEDTIME LEVOTHYROXINE SODIUM 25 MCG PO DAILY@0600 carvediloL 25 MG PO BID MEALS ONDANSETRON HCL/PF 4 MG IV Q6H PRN LABS COMPREHENSIVE METABOLIC PANEL (02/18/23 04:42) SODIUM 137 POTASSIUM 4.4 CHLORIDE 101 CARBON DIOXIDE 27 ANION GAP 13.4 D GLUCOSE 119H H BLOOD UREA NITROGEN 74H H GLOMERULAR FILTRATION RATE 24 L CREATININE 2.0H H BUN/CREATININE RATIO 37.0 H TOTAL PROTEIN 5.4 L ALBUMIN 2.4 L CALCIUM 8.7 BILIRUBIN TOTAL 0.3 SGOT/AST 17 SGPT/ALT 24 ALKALINE PHOSPHATASE 77 CBC W/AUTO DIFF (02/18/23 04:42) WHITE BLOOD CELL 10.0 RED BLOOD CELL 3.02 L HEMOGLOBIN 9.1L L HEMATOCRIT 28.4L L MEAN CELL VOLUME 94 MEAN CELL HGB 30.1 MEAN CELL HGB CONCENTRATION 32.0 RED CELL DISTRIBUTION WIDTH 17.0 H PLATELET COUNT 257 MEAN PLATELET VOLUME 11.5 NEUTROPHIL % 80.0 H IMMATURE GRANULOCYTE % 0.5 LYMPHOCYTE % 9.8 L MONOCYTE % 7.7 EOSINOPHIL % 1.8 BASOPHIL % 0.2 NUCLEATED RBC % 0.0 NEUTROPHIL # 8.03 H IMMATURE GRANULOCYTE # 0.050 LYMPHOCYTE # 0.98 L MONOCYTE # 0.77 EOSINOPHIL # 0.18 BASOPHIL # 0.02 NUCLEATED RBC # 0.000 Signed in PatientKeeper by Ministerio Witt MD on 02/18/23 at 16:52 Electronically Signed by Ministerio Witt MD on 0 02/18/23 at 1652 ATTENTION *EDITS and/or ADDENDA must be made in Patient Ke eper for this note. * * Edits and ammendments created in [facility] are not visible * * in Patient Keeper or the legal medical record (HPF). * RPT #: [id number] END OF REPORT 2023-02-18 [facility] 15:37:00-00:00 [facility] ([facility]) Non-Operative Procedure Note REPORT #: [id number] REPORT STATUS: Signed DATE: 02/18/23 TIME: 1536 PATIENT: CASEY LYONS UNIT #: [id number] ROOM #: [id number] BED: 1 : 37 AGE: 87 SEX: F ATTEND: Linda Whitaker MD ADM AUTHOR: Baron SAULO Ugalde ATTENTION *EDITS and/or ADDENDA must be made in Patient [facility] for this note. * * Edits and ammendments created in [facility] are not visible * * in Patient Keeper or the legal medical record ([facility]). * -- PROCEDURE -- PERFORMED BY: Baron SAULO Ugalde -- DESCRIPTION -- DESCRIPTION OF TECHNIQUE/PROCEDURE: Date: 02/18/23 Time: 1400 THORACENTESIS Procedure: Thoracentesis US guided Indications: Effusion Approach: posterior left Medications: Lidocaine Preliminary Findings: small effusion 200cc remov ed Complications: None Estimated Blood Loss: Less than 10cc Plan: Continue effusion management. Signed in PatientKeeper by Baron SAULO Ugalde on at 15:38 Electronically Signed by Baron Aftab MD on 01/22 03/15 at 1538 ATTENTION *EDITS and/or ADDENDA must be made in Patient [facility] for this note. * * Edits and ammendments created in [facility] are not visible * * in Patient Keeper or the legal medical record ([facility]). * [facility] #: [id number] END OF REPORT 2023-02-18 [facility] 13:43:00-00:00 [facility] ([facility]) Pulmonology Progress Note REPORT #: [id number] REPORT STATUS: Signed DATE: 02/18/23 TIME: 1343 PATIENT: CASEY LYONS UNIT #: [id number] ROOM #: [id number] BED: 1 : 37 AGE: 87 SEX: F ATTEND: Linda Whitaker MD ADM AUTHOR: Alden Rosas MD ATTENTION *EDITS and/or ADDENDA must be made in Patient Ke eper for this note. * * Edits and ammendments created in [employer] are not visible * * in Patient Keeper or the legal medical record (HPF). * -- ASSESSMENT AND PLAN -- GENERAL ASSESSMENT: [facility] Assessment Acute hypoxic respiratory failure Pleural effusions Acute on chronic HFpEF Possible pneumonia NSTEMI Acute on chronic anemia GI bleed CAD Hypothyroidism HTN CKD Plan: -Chest x-ray reviewed- bilateral lower lobe opac ities with pleural effusions, not much change on comparison to previous chest x-ray 02/10 -Suspect volume overload rather than pneumonia b ased on presentation, also received transfusion -Elevated BNP noted, continue IV Lasix -TTE reviewed, EF 45-50%, Cardiology following -On 2 L nasal cannula O2 -room air, wean for sat s more than 92% -CT chest reviewed -moderate bilateral pleural e ffusions with atelectasis -Status post right-sided tho racentesis 02/14 -900 cc removed, transudate, follow up cultures and cytology. repeat chest x-ray rev iewed- trace effusion on right with small left-sided effusion; discussed with patient, would like to proceed with thoracentesis on the other side too . Can defer as clinically improved and on room air, but ordered per patien t preference and to help with symptoms -Stopped empiric antibiotics as unlikely to be p neumonia -Former smoker-continue bronchodilators -BLOW PIT OPERATOR yolanda noted, aspiration precautions SCD for DVT prophylaxis Plan of care discussed in detail with patient at bedside, answered questions We will follow with you Discussed with , discharge planning postpr ocedure --------- Subjective: EVI noted overnight. Discussed with staff. Patient seen and examined. On room air Denies dyspnea or cough HPI: 87-year-old female with past medical history as below admitted from [facility] with symptomatic anemia. Received PRBC, a lso found to have NSTEMI and underwent EGD. had worsening chest x-ray and Pul monary Service consulted. Patient complains of shortne ss of breath with exertion and nonproductive cough, minimal chest discomfort, no fever Past medical history: hypertension, hypothyroidi sm, CHF, PVD, current carotid artery disease, dyslipidemia, CAD, CKD, CVA, dem entia, hearing loss, iron deficiency anemia PSurgHx: bilateral femoral popliteal bypass, hys terectomy FamHx: noncontributory SocHx: former smoker, quit 15 years back Review of systems: 14 point review system negati ve unless listed above Physical Exam General: NAD, thin, frail Eyes: Anicteric sclerae. Mouth: MMM Neck: Supple. CV: Regular rate and rhythm. Normal S1 and S2. Pulm: Good effort, diminished BS Abdomen: Soft, nontender.BS+ Extremities: No lower extremity edema. Skin: Warm, dry. Neuro: Awake and alert, no focal neurological de ficit Psych: normal mood -- OBJECTIVE -- VITALS (02/17 13:43 - 02/18 13:43): Temperature C: 36.4 (36.4 - 37.0) Temperature source: Oral Pulse Rate 57 (53 - 63) Respiratory rate: 18 (16 - 18) Blood pressure: 129/42 (104/42 - 148/66) -- DATA -- MEDICATIONS ACETAMINOPHEN 650 MG PO Q4H PRN guaiFENesin 600 MG PO Q12H PRN MESALAMINE 4 CAP PO DAILY hydrALAZINE HCL 10 MG IV Q6H PRN MEMANTINE HCL 5 MG PO BID DULoxetine HCL 20 MG PO DAILY FERROUS SULFATE 325 MG PO DAILY@0800 MONTELUKAST SODIUM 10 MG PO BEDTIME BENZONATATE 200 MG PO TID KETOTIFEN FUMARATE 1 DROP EACH EYE Q8HR PANTOPRAZOLE 40 MG PO Q12HR ASPIRIN 162 MG PO DAILY MELATONIN 5 MG PO BEDTIME MULTIVITAMIN WITH FOLIC ACID 1 TAB PO DAILY IPRATROPIUM/ALBUTEROL SULFATE 3 ML NEB RTQ6H WA GALANTAMINE HYDROBROMIDE 8 MG PO 0800,1800 amLODIPine BESYLATE 10 MG PO DAILY FUROSEMIDE 40 MG IV BID@0700,1500 ATORVASTATIN CALCIUM 80 MG PO BEDTIME LEVOTHYROXINE SODIUM 25 MCG PO DAILY@0600 carvediloL 25 MG PO BID MEALS ONDANSETRON HCL/PF 4 MG IV Q6H PRN LABS COMPREHENSIVE METABOLIC PANEL (02/18/23 04:42) SODIUM 137 POTASSIUM 4.4 CHLORIDE 101 CARBON DIOXIDE 27 ANION GAP 13.4 D GLUCOSE 119H H BLOOD UREA NITROGEN 74H H GLOMERULAR FILTRATION RATE 24 L CREATININE 2.0H H BUN/CREATININE RATIO 37.0 H TOTAL PROTEIN 5.4 L ALBUMIN 2.4 L CALCIUM 8.7 BILIRUBIN TOTAL 0.3 SGOT/AST 17 SGPT/ALT 24 ALKALINE PHOSPHATASE 77 CBC W/AUTO DIFF (02/18/23 04:42) WHITE BLOOD CELL 10.0 RED BLOOD CELL 3.02 L HEMOGLOBIN 9.1L L HEMATOCRIT 28.4L L MEAN CELL VOLUME 94 MEAN CELL HGB 30.1 MEAN CELL HGB CONCENTRATION 32.0 RED CELL DISTRIBUTION WIDTH 17.0 H PLATELET COUNT 257 MEAN PLATELET VOLUME 11.5 NEUTROPHIL % 80.0 H IMMATURE GRANULOCYTE % 0.5 LYMPHOCYTE % 9.8 L MONOCYTE % 7.7 EOSINOPHIL % 1.8 BASOPHIL % 0.2 NUCLEATED RBC % 0.0 NEUTROPHIL # 8.03 H IMMATURE GRANULOCYTE # 0.050 LYMPHOCYTE # 0.98 L MONOCYTE # 0.77 EOSINOPHIL # 0.18 BASOPHIL # 0.02 NUCLEATED RBC # 0.000 Signed in PatientKeeper by Alden Rosas MD o n 02/18/23 at 14:01 at 1401 ATTENTION *EDITS and/or ADDENDA must be made in Patient Ke eper for this note. * * Edits and ammendments created in [employer] are not visible * * in Patient Keeper or the legal medical record (HPF). * RPT #: [id number] END OF REPORT 2023-02-18 [facility] 13:34:00-00:00 [facility] ([facility]) Med Order Sheet REPORT #: [id number] REPORT STATUS: Signed DATE: 02/18/23 TIME: 1334 PATIENT: CASEY LYONS UNIT #: [id number] ROOM #: [id number] BED: 1 : 37 AGE: 87 SEX: F ATTEND: Linda Whitaker MD ADM AUTHOR: Linda Whitaker MD ATTENTION *EDITS and/or ADDENDA must be made in Patient Ke eper for this note. * * Edits and ammendments created in [facility] are not visible * * in Patient Keeper or the legal medical record (HPF). * Admission Medication Reconciliation -- CONTINUED / CHANGED HOME MEDICATIONS -- Home: Apriso Cap (NF) (Apriso Cap (NF)) 0.375 gr am 4 CAP PO DAILY Hosp: Apriso Cap (NF) (Apriso Cap (NF)) 0.375 gr am 4 CAP PO DAILY Home: DULoxetine DR Cap (Cymbalta Cap) oral Hosp: DULoxetine DR Cap (Cymbalta Cap) 20 MG ora l DAILY Home: Ferrous Sulfate Tab (Feosol Tab) oral Hosp: Existing: Ferrous Sulfate Tab (Feosol Tab) 325MG PO DAILY@0800 stopping on 03/18 at 12:16 Home: Furosemide Tab (Lasix Tab) 20 MG PO DAILY Hosp: Existing: Furosemide Inj (Lasix Inj) 40MG IV BID@0700,1500 stopping on 03/13 at 15:01 Home: olopatadine 0.2 % eye drops 1 DROP EACH EY E BID PRN eye allergies Hosp: Existing: Ketotifen Ophth Soln 0.025% (Zad itor Ophth Soln 0.025%) 1DROP EACH EYE Q8HR stopping on 03/13 at 17:01 -- STOPPED HOME MEDICATIONS -- Home: Valsartan Tab (Diovan Tab) 40 MG PO DAILY FOLLOWING MEDICATIONS WERE PREVIOUSL Y RECONCILED ON 02/06/23 13:38 by Linda Whitaker MD -- CONTINUED / CHANGED HOME MEDICATIONS -- Home: amLODIPine Tab (Norvasc Tab) 5 MG PO DAILY Hosp: Existing: amLODIPine Tab (Norvasc Tab) 5 M G PO DAILY Home: Atorvastatin Tab (Lipitor Tab) 80 MG PO BE DTIME Hosp: Existing: Atorvastatin Tab (Lipitor Tab) 8 0 MG PO BEDTIME Home: Carvedilol Tab (Coreg Tab) 25 MG PO BID ME ALS Hosp: Existing: Carvedilol Tab (Coreg Tab) 25 MG PO BID MEALS Home: galantamine ER 24 hr capsule,extended rele ase 8 MG PO DAILY Hosp: Existing: galantamine ER 24 hr capsule,ext ended release 8 MG PO DAILY Home: Levothyroxine Tab (Synthroid Tab) 25 MCG P O DAILY Hosp: Existing: Levothyroxine Tab (Synthroid Tab ) 25 MCG PO DAILY Home: Memantine Tab (Namenda Tab) oral Hosp: Existing: Memantine Tab (Namenda Tab) 5 MG oral BID Home: Multivitamin Tab (Theragran Tab) 1 TAB PO DAILY Hosp: Existing: Multivitamin Tab (Theragran Tab) 1 TAB PO DAILY Home: Pantoprazole Oral Susp (Protonix Oral Susp ) 40 MG PO DAILY Hosp: Discontinue: Pantoprazole Inj (Protonix In j) 80MG IV X1ED stopping on 02/06 at 19:16in Sodium Chloride 0.9% (NS) 100ML (Total 100 ML) Hosp: Discontinue: Pantoprazole Inj (Protonix In j) 80MG IV Q10H stopping on 02/11 at 15:39in Sodium Chloride 0.9% (NS) 100ML (Total 100 ML) Home: Singulair tablet (montelukast) 10 MG PO DA GISELL Hosp: Existing: Montelukast Tab (Singulair Tab) 10 MG PO DAILY -- STOPPED HOME MEDICATIONS -- Home: Apixaban Tab (Eliquis Tab) 2.5 MG PO DAILY Home: Aspirin EC Tab (Ecotrin Tab) 81 MG PO PAYAM Y Electronically Signed by Linda Whitaker MD on 01/22 03/15 at 3924 ATTENTION *EDITS and/or ADDENDA must be made in Patient [facility] for this note. * * Edits and ammendments created in [facility] are not visible * * in Patient Keeper or the legal medical record ([facility]). * RPT #: [id number] END OF REPORT 2023-02-18 [facility] 11:27:00-00:00 [facility] ([facility]) Hospitalist Progress Note REPORT #: [id number] REPORT STATUS: Signed DATE: 02/18/23 TIME: 1127 PATIENT: CASEY LYONS UNIT #: [id number] ROOM #: [id number] BED: 1 : 37 AGE: 87 SEX: F ATTEND: Linda Whitaker MD ADM AUTHOR: Linda Whitaker MD ATTENTION *EDITS and/or ADDENDA must be made in Patient [facility] for this note. * * Edits and ammendments created in [facility] are not visible * * in Patient Keeper or the legal medical record ([facility]). * -- ASSESSMENT AND PLAN -- GENERAL ASSESSMENT: Assessment and plan: 1--pneumonia---ruled out: 2--acute of chronic CHF: 3--pleural effusion: ECHO Ejection Fraction = 45-50%. BNP reveiwed CT chest: Large bilateral pleural effusions with underlying compressive atelectasis. Cardiomegaly. S/p R thoracentesis with removal of 900 mL yello w fluid S/p Rocephin and azithromycin -IV lasix -DuoNeb's as needed for sob -O2 supplementation as needed to keep O2 saturat ions> 92 % -Pending left-sided thoracentesis -Cardiology and pulmonary on board follow recs 4--NSTEMI: Complains of off-and-on chest pain and shortness of breath---denies any chest pain Elevated troponin ECHO: Ejection Fraction = 45-50% -Serial troponin monitoring -Continuous telemetry monitoring -Aspirin, Eliquis on hold given GI bleed -Plan for Plavix on discharge -Sublingual nitroglycerin as needed for chest pa in -Loop recorder as outpatient if patient and fami ly agree. -Cardiology on board, follow recommendations Moderate to high perioperative cardiovascular risk, but not prohibitive---cardio recs appreciated, Extens jeff discussion was held with the patient, son at bedside and cardiology---wants medical management, hold off on aggressive intervention 5--acute on chronic anemia--iron deficiency: 6--possible GI bleed: S/p PRBC transfusion S/P EGD showed small AVMs in the body of the sto mach and treated by APC. But these were very small. Famil y not interested in her going through a colonoscopy for further evaluation. S/p IV iron -Aspirin -Iron -Trend H H -Transfuse PRBC if Hgb< 7 -Monitor for signs and symptoms of bleeding -Hold Eliquis -GI on board, follow recommendations 7--carotid artery disease: 8--coronary artery disease: 9--peripheral artery disease: -Continue home medications -Aspirin started after GI clearance -Hold Eliquis -Cardiology on board, follow recommendations 10--hypothyroidism: TSH 3.54 -Continue home dose Synthroid 11--hypertension: -Monitor vitals -Continue home medications and adjust as needed 12--dyslipidemia: -Continue statin 13--CKD--unknown baseline creatinine: -Avoid nephrotoxic medication -Trend BMP 14--CVA, dementia: According to daughter patient was actually diagn osed with Atrial fibrillation along with CVA and started on eliquis 2.5 mg bid as outpatient. -Plan for aspirin for now and start Plavix on di kavon -Loop recorder as an outpati ent, if more episodes of A-fib can plan for Eliquis outpatient if no GI bleed and hemoglobin stable. -Continue home medication -Supportive care DVT prophylaxis SCDs GI prophylaxis PPI CODE STATUS full code Disposition pending clinical course Time Spent 40 minutes -- SUBJECTIVE -- PATIENT NARRATIVE: Pt seen and examined by me in the [facility]. Hemodynamically stable, Improvement in shortness of breath, pending left thoracentes is. -- OBJECTIVE -- VITALS (02/17 11:27 - 02/18 11:27): Temperature C: 36.7 (36.6 - 37.0) Temperature source: Oral Pulse Rate 53 (53 - 63) Respiratory rate: 17 (16 - 18) Blood pressure: 121/65 (104/54 - 148/66) -EXAM- GENERAL: Well developed, in no acute distress. HEAD: Normocephalic, atraumatic. EYES: PERRL, lids normal. NECK: Supple, No masses. CHEST: Grossly normal appearance. LUNGS: Decreased bilateral bases, improving. HEART: Regular rate and rhythm, normal S1, S2. ABDOMEN: Soft, non-tender, no masses noted. MUSCULOSKELETAL: No deformity. NEUROLOGICAL: No focal deficits. -- DATA -- MEDICATIONS ACETAMINOPHEN 650 MG PO Q4H PRN guaiFENesin 600 MG PO Q12H PRN hydrALAZINE HCL 10 MG IV Q6H PRN MEMANTINE HCL 5 MG PO BID FERROUS SULFATE 325 MG PO DAILY@0800 MONTELUKAST SODIUM 10 MG PO BEDTIME BENZONATATE 200 MG PO TID KETOTIFEN FUMARATE 1 DROP EACH EYE Q8HR PANTOPRAZOLE 40 MG PO Q12HR ASPIRIN 162 MG PO DAILY MELATONIN 5 MG PO BEDTIME MULTIVITAMIN WITH FOLIC ACID 1 TAB PO DAILY IPRATROPIUM/ALBUTEROL SULFATE 3 ML NEB RTQ6H WA GALANTAMINE HYDROBROMIDE 8 MG PO 0800,1800 amLODIPine BESYLATE 10 MG PO DAILY FUROSEMIDE 40 MG IV BID@0700,1500 ATORVASTATIN CALCIUM 80 MG PO BEDTIME LEVOTHYROXINE SODIUM 25 MCG PO DAILY@0600 carvediloL 25 MG PO BID MEALS ONDANSETRON HCL/PF 4 MG IV Q6H PRN LABS COMPREHENSIVE METABOLIC PANEL (02/18/23 04:42) SODIUM 137 POTASSIUM 4.4 CHLORIDE 101 CARBON DIOXIDE 27 ANION GAP 13.4 D GLUCOSE 119H H BLOOD UREA NITROGEN 74H H GLOMERULAR FILTRATION RATE 24 L CREATININE 2.0H H BUN/CREATININE RATIO 37.0 H TOTAL PROTEIN 5.4 L ALBUMIN 2.4 L CALCIUM 8.7 BILIRUBIN TOTAL 0.3 SGOT/AST 17 SGPT/ALT 24 ALKALINE PHOSPHATASE 77 CBC W/AUTO DIFF (02/18/23 04:42) WHITE BLOOD CELL 10.0 RED BLOOD CELL 3.02 L HEMOGLOBIN 9.1L L HEMATOCRIT 28.4L L MEAN CELL VOLUME 94 MEAN CELL HGB 30.1 MEAN CELL HGB CONCENTRATION 32.0 RED CELL DISTRIBUTION WIDTH 17.0 H PLATELET COUNT 257 MEAN PLATELET VOLUME 11.5 NEUTROPHIL % 80.0 H IMMATURE GRANULOCYTE % 0.5 LYMPHOCYTE % 9.8 L MONOCYTE % 7.7 EOSINOPHIL % 1.8 BASOPHIL % 0.2 NUCLEATED RBC % 0.0 NEUTROPHIL # 8.03 H IMMATURE GRANULOCYTE # 0.050 LYMPHOCYTE # 0.98 L MONOCYTE # 0.77 EOSINOPHIL # 0.18 BASOPHIL # 0.02 NUCLEATED RBC # 0.000 -- ATTESTATION -- TIME SPENT ON PATIENT CARE: - Direct 40 minutes - > 50% of time spent on Counseling/Care Coordi [facility] CARE ACTIVITIES / CARE COORDINATION: - I have reviewed the history and repeated the up elements - I have seen and examined this patient - I have reviewed the progress in the clinical course since the last examination - I have discussed the preet ent's condition with other members of the care team Signed in PatientKeeper by Linda Whitaker MD on at 11:28 Electronically Signed by Linda Whitaker MD on 01/22 03/15 at 1128 ATTENTION *EDITS and/or ADDENDA must be made in Patient Ke eper for this note. * * Edits and ammendments created in [facility] are not visible * * in Patient Keeper or the legal medical record ([facility]PF). * [facility] #: [id number] END OF REPORT 2023-02-17 [facility] 23:57:00-00:00 [facility] ([facility]) Gastroenterology Prog. Note REPORT #: [id number] REPORT STATUS: Signed DATE: 02/17/23 TIME: 2356 PATIENT: CASEY LYONS UNIT #: [id number] ROOM #: [id number] BED: 1 : 37 AGE: 87 SEX: F ATTEND: iLnda Whitaker MD ADM AUTHOR: Bennie Bruno MD ATTENTION *EDITS and/or ADDENDA must be made in Patient Ke eper for this note. * * Edits and ammendments created in [employer] are not visible * * in Patient Keeper or the legal medical record ([facility]). 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 But these were very small. Famil y not interested in her going through a colonoscopy for further evaluation. They understand the risk of missing colon cancer. Ok to use ASA and DAPT. 2: Elevated troponin A/P: Cardiology consulted. 3: CKD (chronic kidney disease) A/P: Nephro on board. 4: Dementia A/P: stable dementia. -- SUBJECTIVE -- CHIEF COMPLAINT: Anemia HPI: I have spoken to the patients RN and heard the p atient issues in the past 24hrs. There have been no changes in GI point of view. No new complains. No Melena or Hematochezia or Hematemesis -- OBJECTIVE -- VITALS (02/16 23:57 - 02/17 23:57): Temperature C: 36.6 (36.4 - 36.9) Temperature source: Oral Pulse Rate 55 (51 - 63) Respiratory rate: 16 (16 - 18) Blood pressure: 104/61 (104/49 - 149/81) -EXAM- GENERAL: Well developed, in no acute distress. HEAD: Normocephalic, atraumatic. EYES: PERRL, lids normal. NECK: Supple, No masses. CHEST: Grossly normal appearance. LUNGS: Clear bilaterally with normal respiratory effort. HEART: Regular rate and rhythm, normal S1, S2. ABDOMEN: Soft, non-tender, no masses noted. MUSCULOSKELETAL: No deformity. NEUROLOGICAL: No focal deficits. -- DATA -- MEDICATIONS ACETAMINOPHEN 650 MG PO Q4H PRN guaiFENesin 600 MG PO Q12H PRN hydrALAZINE HCL 10 MG IV Q6H PRN MEMANTINE HCL 5 MG PO BID FERROUS SULFATE 325 MG PO DAILY@0800 MONTELUKAST SODIUM 10 MG PO BEDTIME BENZONATATE 200 MG PO TID KETOTIFEN FUMARATE 1 DROP EACH EYE Q8HR PANTOPRAZOLE 40 MG PO Q12HR ASPIRIN 162 MG PO DAILY MELATONIN 5 MG PO BEDTIME MULTIVITAMIN WITH FOLIC ACID 1 TAB PO DAILY IPRATROPIUM/ALBUTEROL SULFATE 3 ML NEB RTQ6H WA GALANTAMINE HYDROBROMIDE 8 MG PO 0800,1800 amLODIPine BESYLATE 10 MG PO DAILY FUROSEMIDE 40 MG IV BID@0700,1500 ATORVASTATIN CALCIUM 80 MG PO BEDTIME LEVOTHYROXINE SODIUM 25 MCG PO DAILY@0600 carvediloL 25 MG PO BID MEALS ONDANSETRON HCL/PF 4 MG IV Q6H PRN LABS CBC W/AUTO DIFF (02/17/23 06:41) WHITE BLOOD CELL 7.4 RED BLOOD CELL 2.84 L HEMOGLOBIN 8.5L L HEMATOCRIT 26.5L L MEAN CELL VOLUME 93 MEAN CELL HGB 29.9 MEAN CELL HGB CONCENTRATION 32.1 RED CELL DISTRIBUTION WIDTH 17.0 H PLATELET COUNT 250 MEAN PLATELET VOLUME 11.6 NEUTROPHIL % 71.3 IMMATURE GRANULOCYTE % 0.4 LYMPHOCYTE % 14.1 MONOCYTE % 10.3 EOSINOPHIL % 3.5 BASOPHIL % 0.4 NUCLEATED RBC % 0.0 NEUTROPHIL # 5.26 IMMATURE GRANULOCYTE # 0.030 LYMPHOCYTE # 1.04 L MONOCYTE # 0.76 EOSINOPHIL # 0.26 BASOPHIL # 0.03 NUCLEATED RBC # 0.000 COMPREHENSIVE METABOLIC PANEL (02/17/23 06:41) SODIUM 135 POTASSIUM 4.1 CHLORIDE 103 CARBON DIOXIDE 27 ANION GAP 9.1 GLUCOSE 98 BLOOD UREA NITROGEN 72H H GLOMERULAR FILTRATION RATE 24 L CREATININE 2.0H H BUN/CREATININE RATIO 36.0 H TOTAL PROTEIN 4.8 L ALBUMIN 2.1 L CALCIUM 8.6 BILIRUBIN TOTAL 0.2 SGOT/AST 14 L SGPT/ALT 20 ALKALINE PHOSPHATASE 67 Signed in PatientKeeper by Bennie Bruno MD on at 23:57 Electronically Signed by Bennie Bruno MD on 01/22 02/12 at 2357 ATTENTION *EDITS and/or ADDENDA must be made in Patient Ke eper for this note. * * Edits and ammendments created in [facility] are not visible * * in Patient Keeper or the legal medical record (HPF). * RPT #: [id number] END OF REPORT 2023-02-17 [facility] 16:02:00-00:00 [facility] ([facility]) Pulmonology Progress Note REPORT #: [id number] REPORT STATUS: Signed DATE: 02/17/23 TIME: 1602 PATIENT: CASEY LYONS UNIT #: [id number] ROOM #: [id number] BED: 1 : 37 AGE: 87 SEX: F ATTEND: Linda Whitaker MD ADM AUTHOR: Alden Rosas MD ATTENTION *EDITS and/or ADDENDA must be made in Patient Ke eper for this note. * * Edits and ammendments created in [employer] are not visible * * in Patient Keeper or the legal medical record (HPF). * -- ASSESSMENT AND PLAN -- GENERAL ASSESSMENT: [facility] Assessment Acute hypoxic respiratory failure Pleural effusions Acute on chronic HFpEF Possible pneumonia NSTEMI Acute on chronic anemia GI bleed CAD Hypothyroidism HTN CKD Plan: -Chest x-ray reviewed- bilateral lower lobe opac ities with pleural effusions, not much change on comparison to previous chest x-ray 02/10 -Suspect volume overload rather than pneumonia b ased on presentation, also received transfusion -Elevated BNP noted, continue IV Lasix -TTE reviewed, EF 45-50%, Cardiology following -On 2 L nasal cannula O2 -room air, wean for sat s more than 92% -CT chest reviewed -moderate bilateral pleural e ffusions with atelectasis -Status post right-sided thoracentesis 02/14 -900 cc removed, transudate, follow up cultures and cytology. repeat chest x- ray ordered and if left-sided effusion not improve, can consider thora centesis on that side; patient appears to be clinically improved -Stopped empiric antibiotics as unlikely to be p neumonia -Former smoker-continue bronchodilators SCD for DVT prophylaxis Plan of care discussed in detail with patient at bedside, answered questions We will follow with you --------- Subjective: EVI noted overnight. Discussed with staff. Patient seen and examined. On room air Denies dyspnea or cough HPI: 87-year-old female with past medical history as below admitted from [facility] with symptomatic anemia. Received PRBC, a lso found to have NSTEMI and underwent EGD. had worsening chest x-ray and Pul monary Service consulted. Patient complains of shortne ss of breath with exertion and nonproductive cough, minimal chest discomfort, no fever Past medical history: hypertension, hypothyroidi sm, CHF, PVD, current carotid artery disease, dyslipidemia, CAD, CKD, CVA, dem entia, hearing loss, iron deficiency anemia PSurgHx: bilateral femoral popliteal bypass, hys terectomy FamHx: noncontributory SocHx: former smoker, quit 15 years back Review of systems: 14 point review system negati ve unless listed above Physical Exam General: NAD, thin, frail Eyes: Anicteric sclerae. Mouth: MMM Neck: Supple. CV: Regular rate and rhythm. Normal S1 and S2. Pulm: Good effort, diminished BS Abdomen: Soft, nontender.BS+ Extremities: No lower extremity edema. Skin: Warm, dry. Neuro: Awake and alert, no focal neurological de ficit Psych: normal mood -- OBJECTIVE -- VITALS (02/16 16:02 - 02/17 16:02): Temperature C: 36.9 (36.4 - 36.9) Temperature source: Oral Pulse Rate 56 (51 - 62) Respiratory rate: 18 (16 - 18) Blood pressure: 146/66 (127/49 - 158/81) -- DATA -- MEDICATIONS ACETAMINOPHEN 650 MG PO Q4H PRN guaiFENesin 600 MG PO Q12H PRN hydrALAZINE HCL 10 MG IV Q6H PRN MEMANTINE HCL 5 MG PO BID FERROUS SULFATE 325 MG PO DAILY@0800 MONTELUKAST SODIUM 10 MG PO BEDTIME BENZONATATE 200 MG PO TID KETOTIFEN FUMARATE 1 DROP EACH EYE Q8HR PANTOPRAZOLE 40 MG PO Q12HR ASPIRIN 162 MG PO DAILY carvediloL 25 MG PO BID MEALS MELATONIN 5 MG PO BEDTIME MULTIVITAMIN WITH FOLIC ACID 1 TAB PO DAILY IPRATROPIUM/ALBUTEROL SULFATE 3 ML NEB RTQ6H WA GALANTAMINE HYDROBROMIDE 8 MG PO 0800,1800 amLODIPine BESYLATE 10 MG PO DAILY FUROSEMIDE 40 MG IV BID@0700,1500 ATORVASTATIN CALCIUM 80 MG PO BEDTIME LEVOTHYROXINE SODIUM 25 MCG PO DAILY@0600 ONDANSETRON HCL/PF 4 MG IV Q6H PRN LABS CBC W/AUTO DIFF (02/17/23 06:41) WHITE BLOOD CELL 7.4 RED BLOOD CELL 2.84 L HEMOGLOBIN 8.5L L HEMATOCRIT 26.5L L MEAN CELL VOLUME 93 MEAN CELL HGB 29.9 MEAN CELL HGB CONCENTRATION 32.1 RED CELL DISTRIBUTION WIDTH 17.0 H PLATELET COUNT 250 MEAN PLATELET VOLUME 11.6 NEUTROPHIL % 71.3 IMMATURE GRANULOCYTE % 0.4 LYMPHOCYTE % 14.1 MONOCYTE % 10.3 EOSINOPHIL % 3.5 BASOPHIL % 0.4 NUCLEATED RBC % 0.0 NEUTROPHIL # 5.26 IMMATURE GRANULOCYTE # 0.030 LYMPHOCYTE # 1.04 L MONOCYTE # 0.76 EOSINOPHIL # 0.26 BASOPHIL # 0.03 NUCLEATED RBC # 0.000 COMPREHENSIVE METABOLIC PANEL (02/17/23 06:41) SODIUM 135 POTASSIUM 4.1 CHLORIDE 103 CARBON DIOXIDE 27 ANION GAP 9.1 GLUCOSE 98 BLOOD UREA NITROGEN 72H H GLOMERULAR FILTRATION RATE 24 L CREATININE 2.0H H BUN/CREATININE RATIO 36.0 H TOTAL PROTEIN 4.8 L ALBUMIN 2.1 L CALCIUM 8.6 BILIRUBIN TOTAL 0.2 SGOT/AST 14 L SGPT/ALT 20 ALKALINE PHOSPHATASE 67 Signed in PatientKeeper by Alden Rosas MD 02/17/23 at 16:13 at 1613 ATTENTION *EDITS and/or ADDENDA must be made in Patient Ke ep for this note. * * Edits and ammendments created in [facility] are not visible * * in Patient Keeper or the legal medical record ([facility]). * RPT #: [id number] END OF REPORT 2023-02-17 [facility] 11:56:00-00:00 [facility] ([facility]) Hospitalist Progress Note REPORT #: [id number] REPORT STATUS: Signed DATE: 02/17/23 TIME: 1156 PATIENT: CASEY LYONS UNIT #: [id number] ROOM #: [id number] BED: 1 : 37 AGE: 87 SEX: F ATTEND: Linda Whitaker MD [facility] AUTHOR: Linda Whitaker MD ATTENTION *EDITS and/or ADDENDA must be made in Patient Ke [facility] for this note. * * Edits and ammendments created in [employer] are not visible * * in Patient Keeper or the legal medical record ([facility]). * -- ASSESSMENT AND PLAN -- GENERAL ASSESSMENT: Assessment and plan: 1--pneumonia---ruled out: 2--acute of chronic CHF: 3--pleural effusion: ECHO Ejection Fraction = 45-50%. BNP reveiwed CT chest: Large bilateral pleural effusions with underlying compressive atelectasis. Cardiomegaly. S/p R thoracentesis with removal of 900 mL yello w fluid S/p Rocephin and azithromycin -IV lasix -DuoNeb's as needed for sob -O2 supplementation as needed to keep O2 saturat ions> 92 % -Pending recommendations regarding left-sided th oracentesis -Cardiology and pulmonary on board follow recs 4--NSTEMI: Complains of off-and-on chest pain and shortness of breath---denies any chest pain Elevated troponin ECHO: Ejection Fraction = 45-50% -Serial troponin monitoring -Continuous telemetry monitoring -Aspirin, Eliquis on hold given GI bleed -Plan for Plavix on discharge -Sublingual nitroglycerin as needed for chest pa in -Loop recorder as outpatient if patient and fami ly agree. -Cardiology on board, follow recommendations Moderate to high perioperative cardiovascular risk, but not prohibitive---cardio recs appreciated, Extens jeff discussion was held with the patient, son at bedside and cardiology---wants medical management, hold off on aggressive intervention 5--acute on chronic anemia--iron deficiency: 6--possible GI bleed: S/p PRBC transfusion S/P EGD showed small AVMs in the body of the sto mach and treated by APC. But these were very small. Famil y not interested in her going through a colonoscopy for further evaluation. S/p IV iron -Aspirin -Iron -Trend H H -Transfuse PRBC if Hgb< 7 -Monitor for signs and symptoms of bleeding -Hold Eliquis -GI on board, follow recommendations 7--carotid artery disease: 8--coronary artery disease: 9--peripheral artery disease: -Continue home medications -Aspirin started after GI clearance -Hold Eliquis -Cardiology on board, follow recommendations 10--hypothyroidism: TSH 3.54 -Continue home dose Synthroid 11--hypertension: -Monitor vitals -Continue home medications and adjust as needed 12--dyslipidemia: -Continue statin 13--CKD--unknown baseline creatinine: -Avoid nephrotoxic medication -Trend BMP 14--CVA, dementia: According to daughter patient was actually diagn osed with Atrial fibrillation along with CVA and started on eliquis 2.5 mg bid as outpatient. -Plan for aspirin for now and start Plavix on di scharge -Loop recorder as an outpati ent, if more episodes of A-fib can plan for Eliquis outpatient if no GI bleed and hemoglobin stable. -Continue home medication -Supportive care DVT prophylaxis SCDs GI prophylaxis PPI CODE STATUS full code Disposition pending clinical course Time Spent 40 minutes -- SUBJECTIVE -- PATIENT NARRATIVE: Pt seen and examined by me in the morning. Hemod ynamically stable, Pending pulmonary recommendations regarding thoracentesi s. -- OBJECTIVE -- VITALS (02/16 11:56 - 02/17 11:56): Temperature C: 36.9 (36.4 - 36.9) Temperature source: Oral Pulse Rate 56 (51 - 62) Respiratory rate: 18 (16 - 18) Blood pressure: 146/66 (127/49 - 158/81) -EXAM- GENERAL: Well developed, in no acute distress. HEAD: Normocephalic, atraumatic. EYES: PERRL, lids normal. NECK: Supple, No masses. CHEST: Grossly normal appearance. LUNGS: Decreased bilateral bases, improving. HEART: Regular rate and rhythm, normal S1, S2. ABDOMEN: Soft, non-tender, no masses noted. MUSCULOSKELETAL: No deformity. NEUROLOGICAL: No focal deficits. -- DATA -- MEDICATIONS ACETAMINOPHEN 650 MG PO Q4H PRN guaiFENesin 600 MG PO Q12H PRN hydrALAZINE HCL 10 MG IV Q6H PRN MEMANTINE HCL 5 MG PO BID FERROUS SULFATE 325 MG PO DAILY@0800 MONTELUKAST SODIUM 10 MG PO BEDTIME BENZONATATE 200 MG PO TID KETOTIFEN FUMARATE 1 DROP EACH EYE Q8HR PANTOPRAZOLE 40 MG PO Q12HR ASPIRIN 162 MG PO DAILY carvediloL 25 MG PO BID MEALS MELATONIN 5 MG PO BEDTIME MULTIVITAMIN WITH FOLIC ACID 1 TAB PO DAILY IPRATROPIUM/ALBUTEROL SULFATE 3 ML NEB RTQ6H WA GALANTAMINE HYDROBROMIDE 8 MG PO 0800,1800 amLODIPine BESYLATE 10 MG PO DAILY FUROSEMIDE 40 MG IV BID@0700,1500 ATORVASTATIN CALCIUM 80 MG PO BEDTIME LEVOTHYROXINE SODIUM 25 MCG PO DAILY@0600 ONDANSETRON HCL/PF 4 MG IV Q6H PRN LABS CBC W/AUTO DIFF (02/17/23 06:41) WHITE BLOOD CELL 7.4 RED BLOOD CELL 2.84 L HEMOGLOBIN 8.5L L HEMATOCRIT 26.5L L MEAN CELL VOLUME 93 MEAN CELL HGB 29.9 MEAN CELL HGB CONCENTRATION 32.1 RED CELL DISTRIBUTION WIDTH 17.0 H PLATELET COUNT 250 MEAN PLATELET VOLUME 11.6 NEUTROPHIL % 71.3 IMMATURE GRANULOCYTE % 0.4 LYMPHOCYTE % 14.1 MONOCYTE % 10.3 EOSINOPHIL % 3.5 BASOPHIL % 0.4 NUCLEATED RBC % 0.0 NEUTROPHIL # 5.26 IMMATURE GRANULOCYTE # 0.030 LYMPHOCYTE # 1.04 L MONOCYTE # 0.76 EOSINOPHIL # 0.26 BASOPHIL # 0.03 NUCLEATED RBC # 0.000 COMPREHENSIVE METABOLIC PANEL (02/17/23 06:41) SODIUM 135 POTASSIUM 4.1 CHLORIDE 103 CARBON DIOXIDE 27 ANION GAP 9.1 GLUCOSE 98 BLOOD UREA NITROGEN 72H H GLOMERULAR FILTRATION RATE 24 L CREATININE 2.0H H BUN/CREATININE RATIO 36.0 H TOTAL PROTEIN 4.8 L ALBUMIN 2.1 L CALCIUM 8.6 BILIRUBIN TOTAL 0.2 SGOT/AST 14 L SGPT/ALT 20 ALKALINE PHOSPHATASE 67 -- ATTESTATION -- TIME SPENT ON PATIENT CARE: - Direct 40 minutes - > 50% of time spent on Counseling/Care Coordi nation CARE ACTIVITIES / CARE COORDINATION: - I have reviewed the history and repeated the up elements - I have seen and examined this patient - I have reviewed the progress in the clinical course since the last examination - I have discussed the preet ent's condition with other members of the care team Signed in PatientKeeper by Linda Whitaker MD on at 12:01 Electronically Signed by Linda Whitaker MD on 01/22 02/12 at 1201 ATTENTION *EDITS and/or ADDENDA must be made in Patient Ke eper for this note. * * Edits and ammendments created in [employer] are not visible * * in Patient Keeper or the legal medical record ([facility]). * RPT #: [id number] END OF REPORT 2023-02-17 [facility] 10:26:00-00:00 [facility] ([facility]) Cardiology Progress Notes REPORT #: [id number] REPORT STATUS: Signed DATE: 02/17/23 TIME: 1026 PATIENT: CASEY LYONS UNIT #: [id number] ROOM #: [id number] BED: 1 : 37 AGE: 87 SEX: F ATTEND: Linda Whitaker MD ADM AUTHOR: Ministerio Witt MD ATTENTION *EDITS and/or ADDENDA must be made in Patient Ke eper for this note. * * Edits and ammendments created in [employer] are not visible * * in Patient Keeper or the legal medical record ([facility]). * -- ASSESSMENT AND PLAN -- GENERAL ASSESSMENT: Tele NSR PROBLEMS: 1: Cerebrovascular accident, old A/P: Long DW another daughter. According to daughter patient was actually diagn osed with Atrial fibrillation along with CVA and started on eliquis 2.5 mg bid as outpatient. Going forward best option given anemia a nd GI bleed is to start patient on ASA and Plavix Get Loop recorder as out patient If has more episodes of afib on loop then either resume ASA/ Eliquis or plan watchman She needs to be on ASA/ Plavix post watchman in any case for certain time period. 2: SOB (shortness of breath) A/P: sec to pleural effusion and DHF and CKD s/p Thoracentesis Feels better ON Lasix 40 mg IV BID Creat stable 3: Pleural effusion A/P: s/p thoracentesis Pulm on board 4: Elevated troponin A/P: 2y to severe anemia also has hx of prior CAD and stents probably type II TN poor cath candidate for revascularization due to anemia/gibleed. now on ASA / BB 5: Post-operative state A/P: POST OP EGD tolerated egd without complication 6: Anemia A/P: RECURRENT s/p repeated transfusions per GI doing ok on ASA 7: Hypertension A/P: BP ok on meds. NO ARB due to elevated creat 8: Hyperlipidemia LDL goal <70 A/P: on statin 9: Peripheral vascular disease A/P: s/p bilateral LE bypasses? 10: Chronic kidney disease A/P: as per med team MOnitor renal function. creat stable. -- SUBJECTIVE -- PATIENT NARRATIVE: Seen in the room Daughter at bedside. Plan for left side thoracentesis this AM NO fever Breathign is ok -REVIEW OF SYSTEMS- COMMENT: general review of systems performed and was otherwise unremarkable except noted above -- OBJECTIVE -- VITALS (02/16 10:26 - 02/17 10:26): Temperature C: 36.4 (36.4 - 36.8) Temperature source: Oral Pulse Rate 56 (51 - 62) Respiratory rate: 18 (16 - 18) Blood pressure: 131/49 (127/49 - 158/81) ADDITIONAL V/S: Tele NSR -EXAM- OTHER: Gen: older female. appears weak. appears pale. HEENT: nc/at. pupils equal. NECK: no jvd. no bruits LUNGS: reduced A/E in both bases L > R CARDIAC: regular rate and rhythm. normal s1 and s2. 2/6 systolic murmur ABDOMEN: soft. normal bowel sounds. not tender. EXTREMITIES: no edema. absent pulses.. NEUROLOGY: alert and oriented x 2 -- DATA -- MEDICATIONS ACETAMINOPHEN 650 MG PO Q4H PRN guaiFENesin 600 MG PO Q12H PRN hydrALAZINE HCL 10 MG IV Q6H PRN MEMANTINE HCL 5 MG PO BID FERROUS SULFATE 325 MG PO DAILY@0800 MONTELUKAST SODIUM 10 MG PO BEDTIME BENZONATATE 200 MG PO TID KETOTIFEN FUMARATE 1 DROP EACH EYE Q8HR PANTOPRAZOLE 40 MG PO Q12HR ASPIRIN 162 MG PO DAILY carvediloL 25 MG PO BID MEALS MELATONIN 5 MG PO BEDTIME MULTIVITAMIN WITH FOLIC ACID 1 TAB PO DAILY IPRATROPIUM/ALBUTEROL SULFATE 3 ML NEB RTQ6H WA GALANTAMINE HYDROBROMIDE 8 MG PO 0800,1800 amLODIPine BESYLATE 10 MG PO DAILY FUROSEMIDE 40 MG IV BID@0700,1500 ATORVASTATIN CALCIUM 80 MG PO BEDTIME LEVOTHYROXINE SODIUM 25 MCG PO DAILY@0600 ONDANSETRON HCL/PF 4 MG IV Q6H PRN LABS CBC W/AUTO DIFF (02/17/23 06:41) WHITE BLOOD CELL 7.4 RED BLOOD CELL 2.84 L HEMOGLOBIN 8.5L L HEMATOCRIT 26.5L L MEAN CELL VOLUME 93 MEAN CELL HGB 29.9 MEAN CELL HGB CONCENTRATION 32.1 RED CELL DISTRIBUTION WIDTH 17.0 H PLATELET COUNT 250 MEAN PLATELET VOLUME 11.6 NEUTROPHIL % 71.3 IMMATURE GRANULOCYTE % 0.4 LYMPHOCYTE % 14.1 MONOCYTE % 10.3 EOSINOPHIL % 3.5 BASOPHIL % 0.4 NUCLEATED RBC % 0.0 NEUTROPHIL # 5.26 IMMATURE GRANULOCYTE # 0.030 LYMPHOCYTE # 1.04 L MONOCYTE # 0.76 EOSINOPHIL # 0.26 BASOPHIL # 0.03 NUCLEATED RBC # 0.000 COMPREHENSIVE METABOLIC PANEL (02/17/23 06:41) SODIUM 135 POTASSIUM 4.1 CHLORIDE 103 CARBON DIOXIDE 27 ANION GAP 9.1 GLUCOSE 98 BLOOD UREA NITROGEN 72H H GLOMERULAR FILTRATION RATE 24 L CREATININE 2.0H H BUN/CREATININE RATIO 36.0 H TOTAL PROTEIN 4.8 L ALBUMIN 2.1 L CALCIUM 8.6 BILIRUBIN TOTAL 0.2 SGOT/AST 14 L SGPT/ALT 20 ALKALINE PHOSPHATASE 67 Signed in PatientKeeper by Ministerio Witt MD on 02/17/23 at 10:34 Electronically Signed by Ministerio Witt MD on 0 02/17/23 at 1034 ATTENTION *EDITS and/or ADDENDA must be made in Patient [facility] for this note. * * Edits and ammendments created in [employer] are not visible * * in Patient Keeper or the legal medical record ([facility]). * RPT #: [id number] END OF REPORT 2023-02-16 [facility] 19:11:00-00:00 [facility] ([facility]) Gastroenterology Prog. Note REPORT #: [id number] REPORT STATUS: Signed DATE: 02/16/23 TIME: 1910 PATIENT: CASEY LYONS UNIT #: [id number] ROOM #: [id number] BED: 1 : 37 AGE: 87 SEX: F ATTEND: Linda Whitaker MD [facility] AUTHOR: Bennie Bruno MD ATTENTION *EDITS and/or ADDENDA must be made in Patient [facility] for this note. * * Edits and ammendments created in [employer] are not visible * * in Patient Keeper or the legal medical record ([facility]). * -- ASSESSMENT AND PLAN -- PROBLEMS: 1: Anemia A/P: EGD showed small AVMs in the body of the st bhavana and treated by APC. But these were very small. Famil y not interested in her going through a colonoscopy for further evaluation. They understand the risk of missing colon cancer. Ok to use ASA and DAPT. 2: Elevated troponin A/P: Cardiology consulted. 3: CKD (chronic kidney disease) A/P: Nephro on board. 4: Dementia A/P: stable dementia. -- SUBJECTIVE -- CHIEF COMPLAINT: Anemia HPI: I have spoken to the patients RN and heard the p atient issues in the past 24hrs. There have been no changes in GI point of view. No new complains. No Melena or Hematochezia or Hematemesis -- OBJECTIVE -- VITALS (02/15 19:11 - 02/16 19:11): Temperature C: 36.4 (36.4 - 36.9) Temperature source: Oral Pulse Rate 58 (50 - 58) Respiratory rate: 16 (16 - 18) Blood pressure: 131/73 (131/52 - 157/73) -EXAM- GENERAL: Well developed, in no acute distress. HEAD: Normocephalic, atraumatic. EYES: PERRL, lids normal. NECK: Supple, No masses. CHEST: Grossly normal appearance. LUNGS: Clear bilaterally with normal respiratory effort. HEART: Regular rate and rhythm, normal S1, S2. ABDOMEN: Soft, non-tender, no masses noted. MUSCULOSKELETAL: No deformity. NEUROLOGICAL: No focal deficits. -- DATA -- MEDICATIONS ACETAMINOPHEN 650 MG PO Q4H PRN guaiFENesin 600 MG PO Q12H PRN hydrALAZINE HCL 10 MG IV Q6H PRN MEMANTINE HCL 5 MG PO BID FERROUS SULFATE 325 MG PO DAILY@0800 MONTELUKAST SODIUM 10 MG PO BEDTIME BENZONATATE 200 MG PO TID KETOTIFEN FUMARATE 1 DROP EACH EYE Q8HR PANTOPRAZOLE 40 MG PO Q12HR ASPIRIN 162 MG PO DAILY carvediloL 25 MG PO BID MEALS MELATONIN 5 MG PO BEDTIME MULTIVITAMIN WITH FOLIC ACID 1 TAB PO DAILY IPRATROPIUM/ALBUTEROL SULFATE 3 ML NEB RTQ6H WA GALANTAMINE HYDROBROMIDE 8 MG PO 0800,1800 amLODIPine BESYLATE 10 MG PO DAILY FUROSEMIDE 40 MG IV BID@0700,1500 ATORVASTATIN CALCIUM 80 MG PO BEDTIME LEVOTHYROXINE SODIUM 25 MCG PO DAILY@0600 ONDANSETRON HCL/PF 4 MG IV Q6H PRN LABS CBC W/AUTO DIFF (02/16/23 05:02) WHITE BLOOD CELL 7.7 RED BLOOD CELL 2.88 L HEMOGLOBIN 8.8L L HEMATOCRIT 27.0L L MEAN CELL VOLUME 94 MEAN CELL HGB 30.6 MEAN CELL HGB CONCENTRATION 32.6 RED CELL DISTRIBUTION WIDTH 17.2 H PLATELET COUNT 252 MEAN PLATELET VOLUME 11.6 NEUTROPHIL % 74.1 IMMATURE GRANULOCYTE % 0.4 LYMPHOCYTE % 13.0 L MONOCYTE % 8.6 EOSINOPHIL % 3.6 BASOPHIL % 0.3 NUCLEATED RBC % 0.0 NEUTROPHIL # 5.72 IMMATURE GRANULOCYTE # 0.030 LYMPHOCYTE # 1.00 L MONOCYTE # 0.66 EOSINOPHIL # 0.28 BASOPHIL # 0.02 NUCLEATED RBC # 0.000 BASIC METABOLIC PANEL (02/16/23 04:55) SODIUM 136 POTASSIUM 4.0 CHLORIDE 105 CARBON DIOXIDE 26 ANION GAP 9.0 GLUCOSE 107H H BLOOD UREA NITROGEN 65H H GLOMERULAR FILTRATION RATE 26 L CREATININE 1.9H H BUN/CREATININE RATIO 34.2 H CALCIUM 8.3 L Signed in PatientKeeper by Bennie Bruno MD on at 19:12 Electronically Signed by Bennie Bruno MD on 01/22 01/12 at 1912 ATTENTION *EDITS and/or ADDENDA must be made in Patient Ke eper for this note. * * Edits and ammendments created in [facility] are not visible * * in Patient Keeper or the legal medical record ([facility]). * [facility] #: [id number] END OF REPORT 2023-02-16 [facility] 13:25:00-00:00 [facility] ([facility]) Pulmonology Progress Note REPORT #: [id number] REPORT STATUS: Signed DATE: 02/16/23 TIME: 1325 PATIENT: CASEY LYONS UNIT #: [id number] ROOM #: [id number] BED: 1 : 37 AGE: 87 SEX: F ATTEND: Rich Whitaker MD ADM AUTHOR: Rita Luna ATTENTION *EDITS and/or ADDENDA must be made in Patient Ke eper for this note. * * Edits and ammendments created in [employer] are not visible * * in Patient Keeper or the legal medical record ([facility]). * -- ASSESSMENT AND PLAN -- GENERAL ASSESSMENT: [facility] Assessment Acute hypoxic respiratory failure Pleural effusions Acute on chronic HFpEF Possible pneumonia NSTEMI Acute on chronic anemia GI bleed CAD Hypothyroidism HTN CKD Plan: -Chest x-ray reviewed- bilateral lower lobe opac ities with pleural effusions, not much change on comparison to previous chest x-ray 02/10 -Suspect volume overload rather than pneumonia b ased on presentation, also received transfusion -Elevated BNP noted, continue IV Lasix -TTE reviewed, EF 45-50%, Cardiology following - On 2 L nasal cannula O2, wean for sats more th an 92% -CT chest reviewed -moderate bilateral pleural e ffusions with atelectasis -Given ongoing diuresis and persistent symptoms, recommend thoracentesis. Pt in agreement, requested on right side with pleural fluid studies, pending result -Will DC empiric antibiotics as unlikely to be p neumonia -Former smoker-continue bronchodilators SCD for DVT prophylaxis Plan of care discussed in de tail with patient and daughter at bedside, answered questions We will follow with you --------- Subjective: EVI noted overnight. Discussed with staff. Patient seen and examined. AA Ox3, NAD noted. Reports feeling tired, denies dyspnea or cough. Afebrile, VSS, tolerating RA Labs/Diagnostics reviewed HPI: 87-year-old female with past medical history as below admitted from [facility] with symptomatic anemia. Received PRBC, a lso found to have NSTEMI and underwent EGD. had worsening chest x-ray and Pul monary Service consulted. Patient complains of shortne ss of breath with exertion and nonproductive cough, minimal chest discomfort, no fever Past medical history: hypertension, hypothyroidi sm, CHF, PVD, current carotid artery disease, dyslipidemia, CAD, CKD, CVA, dem entia, hearing loss, iron deficiency anemia PSurgHx: bilateral femoral popliteal bypass, hys terectomy FamHx: noncontributory SocHx: former smoker, quit 15 years back Review of systems: 14 point review system negati ve unless listed above Physical Exam General: NAD, thin, frail Eyes: Anicteric sclerae. Mouth: MMM Neck: Supple. CV: Regular rate and rhythm. Normal S1 and S2. Pulm: Good effort, diminished BS Abdomen: Soft, nontender.BS+ Extremities: No lower extremity edema. Skin: Warm, dry. Neuro: Awake and alert, no focal neurological de ficit Psych: normal mood I have personally provided 3 2 minutes of direct care time. Time includes review of laboratory data, radiology results, d iscussion with consultants, family and staff and monitoring for pot ential decompensation. Interventions were performed as documented above. This Is exclusive of time s pent on separately billable procedures -- OBJECTIVE -- VITALS (02/15 13:25 - 02/16 13:25): Temperature C: 36.7 (36.5 - 36.9) Temperature source: Oral Pulse Rate 50 (50 - 60) Respiratory rate: 18 (16 - 18) Blood pressure: 139/60 (139/52 - 157/64) -- DATA -- MEDICATIONS ACETAMINOPHEN 650 MG PO Q4H PRN guaiFENesin 600 MG PO Q12H PRN hydrALAZINE HCL 10 MG IV Q6H PRN MEMANTINE HCL 5 MG PO BID FERROUS SULFATE 325 MG PO DAILY@0800 MONTELUKAST SODIUM 10 MG PO BEDTIME BENZONATATE 200 MG PO TID KETOTIFEN FUMARATE 1 DROP EACH EYE Q8HR PANTOPRAZOLE 40 MG PO Q12HR ASPIRIN 162 MG PO DAILY carvediloL 25 MG PO BID MEALS MELATONIN 5 MG PO BEDTIME MULTIVITAMIN WITH FOLIC ACID 1 TAB PO DAILY IPRATROPIUM/ALBUTEROL SULFATE 3 ML NEB RTQ6H WA GALANTAMINE HYDROBROMIDE 8 MG PO 0800,1800 amLODIPine BESYLATE 10 MG PO DAILY FUROSEMIDE 40 MG IV BID@0700,1500 ATORVASTATIN CALCIUM 80 MG PO BEDTIME LEVOTHYROXINE SODIUM 25 MCG PO DAILY@0600 ONDANSETRON HCL/PF 4 MG IV Q6H PRN LABS CBC W/AUTO DIFF (02/16/23 05:02) WHITE BLOOD CELL 7.7 RED BLOOD CELL 2.88 L HEMOGLOBIN 8.8L L HEMATOCRIT 27.0L L MEAN CELL VOLUME 94 MEAN CELL HGB 30.6 MEAN CELL HGB CONCENTRATION 32.6 RED CELL DISTRIBUTION WIDTH 17.2 H PLATELET COUNT 252 MEAN PLATELET VOLUME 11.6 NEUTROPHIL % 74.1 IMMATURE GRANULOCYTE % 0.4 LYMPHOCYTE % 13.0 L MONOCYTE % 8.6 EOSINOPHIL % 3.6 BASOPHIL % 0.3 NUCLEATED RBC % 0.0 NEUTROPHIL # 5.72 IMMATURE GRANULOCYTE # 0.030 LYMPHOCYTE # 1.00 L MONOCYTE # 0.66 EOSINOPHIL # 0.28 BASOPHIL # 0.02 NUCLEATED RBC # 0.000 BASIC METABOLIC PANEL (02/16/23 04:55) SODIUM 136 POTASSIUM 4.0 CHLORIDE 105 CARBON DIOXIDE 26 ANION GAP 9.0 GLUCOSE 107H H BLOOD UREA NITROGEN 65H H GLOMERULAR FILTRATION RATE 26 L CREATININE 1.9H H BUN/CREATININE RATIO 34.2 H CALCIUM 8.3 L Signed in PatientKeeper by Rita Luna APR on 02/16/23 at 18:43 Cosigned by GEOVANI CARSON MD on 02/16/23 at 18 :51 at 1851 Electronically Signed by Geovani Carson MD on 0 02/16/23 at 1851 ATTENTION *EDITS and/or ADDENDA must be made in Patient Ke eper for this note. * * Edits and ammendments created in [employer] are not visible * * in Patient Keeper or the legal medical record (HPF). * RPT #: [id number] END OF REPORT 2023-02-16 [facility] 12:10:00-00:00 [facility] ([facility]) Hospitalist Progress Note REPORT #: [id number] REPORT STATUS: Signed DATE: 02/16/23 TIME: 1210 PATIENT: CASEY LYONS UNIT #: [id number] ROOM #: [id number] BED: 1 : 37 AGE: 87 SEX: F ATTEND: Linda Whitaker MD ADM AUTHOR: Linda Whitaker MD ATTENTION *EDITS and/or ADDENDA must be made in Patient Ke eper for this note. * * Edits and ammendments created in [employer] are not visible * * in Patient Keeper or the legal medical record (HPF). * -- ASSESSMENT AND PLAN -- GENERAL ASSESSMENT: Assessment and plan: 1--pneumonia---ruled out: 2--acute of chronic CHF: 3--pleural effusion: ECHO Ejection Fraction = 45-50%. BNP reveiwed CT chest: Large bilateral pleural effusions with underlying compressive atelectasis. Cardiomegaly. S/p R thoracentesis with removal of 900 mL yello w fluid S/p Rocephin and azithromycin -IV lasix -DuoNeb's as needed for sob -O2 supplementation as needed to keep O2 saturat ions> 92 % -Cardiology and pulmonary on board follow recs 4--NSTEMI: Complains of off-and-on chest pain and shortness of breath---denies any chest pain Elevated troponin ECHO: Ejection Fraction = 45-50% -Serial troponin monitoring -Continuous telemetry monitoring -Hold aspirin given concerns of GI bleed -Sublingual nitroglycerin as needed for chest pa in -Loop recorder as outpatient if patient and fami ly agree. -Cardiology on board, follow recommendations Moderate to high perioperative cardiovascular risk, but not prohibitive---cardio recs appreciated, Extens jeff discussion was held with the patient, son at bedside and cardiology---wants medical management, hold off on aggressive intervention 5--acute on chronic anemia--iron deficiency: 6--possible GI bleed: S/p PRBC transfusion S/P EGD showed small AVMs in the body of the sto mach and treated by APC. But these were very small. Famil y not interested in her going through a colonoscopy for further evaluation. S/p IV iron -Aspirin -Iron -Trend H H -Transfuse PRBC if Hgb< 7 -Monitor for signs and symptoms of bleeding -Hold Eliquis -GI on board, follow recommendations 7--carotid artery disease: 8--coronary artery disease: 9--peripheral artery disease: -Continue home medications -Aspirin started after GI clearance -Hold Eliquis -Cardiology on board, follow recommendations 10--hypothyroidism: TSH 3.54 -Continue home dose Synthroid 11--hypertension: -Monitor vitals -Continue home medications and adjust as needed 12--dyslipidemia: -Continue statin 13--CKD--unknown baseline creatinine: -Avoid nephrotoxic medication -Trend BMP 14--CVA, dementia: -Continue home medication -Supportive care DVT prophylaxis SCDs GI prophylaxis PPI CODE STATUS full code Disposition pending clinical course Time Spent 40 minutes -- SUBJECTIVE -- PATIENT NARRATIVE: Pt seen and examined by me in the morning. Hemod ynamically stable, Breathing has improved. -- OBJECTIVE -- VITALS (02/15 12:10 - 02/16 12:10): Temperature C: 36.7 (36.5 - 36.9) Temperature source: Oral Pulse Rate 50 (50 - 60) Respiratory rate: 18 (16 - 18) Blood pressure: 139/60 (139/47 - 157/64) -EXAM- GENERAL: Well developed, in no acute distress. HEAD: Normocephalic, atraumatic. EYES: PERRL, lids normal. NECK: Supple, No masses. CHEST: Grossly normal appearance. LUNGS: Decreased bilateral bases, improving. HEART: Regular rate and rhythm, normal S1, S2. ABDOMEN: Soft, non-tender, no masses noted. MUSCULOSKELETAL: No deformity. NEUROLOGICAL: No focal deficits. -- DATA -- MEDICATIONS ACETAMINOPHEN 650 MG PO Q4H PRN guaiFENesin 600 MG PO Q12H PRN hydrALAZINE HCL 10 MG IV Q6H PRN MEMANTINE HCL 5 MG PO BID MONTELUKAST SODIUM 10 MG PO BEDTIME BENZONATATE 200 MG PO TID KETOTIFEN FUMARATE 1 DROP EACH EYE Q8HR PANTOPRAZOLE 40 MG PO Q12HR ASPIRIN 162 MG PO DAILY carvediloL 25 MG PO BID MEALS MELATONIN 5 MG PO BEDTIME MULTIVITAMIN WITH FOLIC ACID 1 TAB PO DAILY IPRATROPIUM/ALBUTEROL SULFATE 3 ML NEB RTQ6H WA GALANTAMINE HYDROBROMIDE 8 MG PO 0800,1800 amLODIPine BESYLATE 10 MG PO DAILY FUROSEMIDE 40 MG IV BID@0700,1500 ATORVASTATIN CALCIUM 80 MG PO BEDTIME LEVOTHYROXINE SODIUM 25 MCG PO DAILY@0600 ONDANSETRON HCL/PF 4 MG IV Q6H PRN LABS CBC W/AUTO DIFF (02/16/23 05:02) WHITE BLOOD CELL 7.7 RED BLOOD CELL 2.88 L HEMOGLOBIN 8.8L L HEMATOCRIT 27.0L L MEAN CELL VOLUME 94 MEAN CELL HGB 30.6 MEAN CELL HGB CONCENTRATION 32.6 RED CELL DISTRIBUTION WIDTH 17.2 H PLATELET COUNT 252 MEAN PLATELET VOLUME 11.6 NEUTROPHIL % 74.1 IMMATURE GRANULOCYTE % 0.4 LYMPHOCYTE % 13.0 L MONOCYTE % 8.6 EOSINOPHIL % 3.6 BASOPHIL % 0.3 NUCLEATED RBC % 0.0 NEUTROPHIL # 5.72 IMMATURE GRANULOCYTE # 0.030 LYMPHOCYTE # 1.00 L MONOCYTE # 0.66 EOSINOPHIL # 0.28 BASOPHIL # 0.02 NUCLEATED RBC # 0.000 BASIC METABOLIC PANEL (02/16/23 04:55) SODIUM 136 POTASSIUM 4.0 CHLORIDE 105 CARBON DIOXIDE 26 ANION GAP 9.0 GLUCOSE 107H H BLOOD UREA NITROGEN 65H H GLOMERULAR FILTRATION RATE 26 L CREATININE 1.9H H BUN/CREATININE RATIO 34.2 H CALCIUM 8.3 L -- ATTESTATION -- TIME SPENT ON PATIENT CARE: - Direct 40 minutes - > 50% of time spent on Counseling/Care Coordi [facility] CARE ACTIVITIES / CARE COORDINATION: - I have reviewed the history and repeated the up elements - I have seen and examined this patient - I have reviewed the progress in the clinical course since the last examination - I have discussed the preet ent's condition with other members of the care team Signed in PatientKeeper by Linda Whitaker MD on at 12:13 Electronically Signed by Linda Whitaker MD on 01/22 01/12 at 1213 ATTENTION *EDITS and/or ADDENDA must be made in Patient [facility] for this note. * * Edits and ammendments created in [employer] are not visible * * in Patient Keeper or the legal medical record ([facility]). * RPT #: [id number] END OF REPORT 2023-02-16 [facility] 11:12:00-00:00 [facility] ([facility]) Cardiology Progress Notes REPORT #: [id number] REPORT STATUS: Signed DATE: 02/16/23 TIME: 1112 PATIENT: CASEY LYONS UNIT #: [id number] ROOM #: [id number] BED: 1 : 37 AGE: 87 SEX: F ATTEND: Linda Whitaker MD ADM AUTHOR: Ministerio Witt MD ATTENTION *EDITS and/or ADDENDA must be made in Patient [facility] for this note. * * Edits and ammendments created in [employer] are not visible * * in Patient Keeper or the legal medical record ([facility]). * -- ASSESSMENT AND PLAN -- PROBLEMS: 1: SOB (shortness of breath) A/P: sec to pleural effusion and DHF and CKD s/p Thoracentesis Feels better ON Lasix 40 mg IV BID Creat stable 2: Pleural effusion A/P: s/p thoracentesis Pulm on board 3: Elevated troponin A/P: 2y to severe anemia also has hx of prior CAD and stents probably type II TN poor cath candidate for revascularization due to anemia/gibleed. now on ASA / BB 4: Post-operative state A/P: POST OP EGD tolerated egd without complication 5: Anemia A/P: RECURRENT s/p repeated transfusions per GI doing ok on ASA 6: Hypertension A/P: BP ok on meds. NO ARB due to elevated creat 7: Cerebrovascular accident, old A/P: unclear residual deficits ? multi-infarct dementia. was on eliquis 2.5 mg bid as outpatient. PER son her CVA stopped after being on Eliqios NO DIAGNSOES IF AFIB PER SON not sure if she will tolerate oac given recurren t anemia/gi bleeding issues Should get Loop recorder as out patient if patie nt and family agree. 8: Hyperlipidemia LDL goal <70 A/P: on statin 9: Peripheral vascular disease A/P: s/p bilateral LE bypasses? 10: Chronic kidney disease A/P: as per med team MOnitor renal function. creat stable. -- SUBJECTIVE -- PATIENT NARRATIVE: Seen in the room Daughter at bedside. Feels better with thoracentesis the other day Plan for left side thora possible for AM NO fever -REVIEW OF SYSTEMS- COMMENT: general review of systems performed and was otherwise unremarkable except noted above -- OBJECTIVE -- VITALS (02/15 11:12 - 02/16 11:12): Temperature C: 36.7 (36.5 - 36.9) Temperature source: Oral Pulse Rate 50 (50 - 60) Respiratory rate: 18 (16 - 18) Blood pressure: 139/60 (139/47 - 157/64) ADDITIONAL V/S: Tele NSR -EXAM- OTHER: Gen: older female. appears weak. appears pale. HEENT: nc/at. pupils equal. NECK: no jvd. no bruits LUNGS: reduced A/E in both bases L > R CARDIAC: regular rate and rhythm. normal s1 and s2. 2/6 systolic murmur ABDOMEN: soft. normal bowel sounds. not tender. EXTREMITIES: no edema. absent pulses.. NEUROLOGY: alert and oriented x 2 -- DATA -- MEDICATIONS ACETAMINOPHEN 650 MG PO Q4H PRN guaiFENesin 600 MG PO Q12H PRN hydrALAZINE HCL 10 MG IV Q6H PRN MEMANTINE HCL 5 MG PO BID MONTELUKAST SODIUM 10 MG PO BEDTIME BENZONATATE 200 MG PO TID KETOTIFEN FUMARATE 1 DROP EACH EYE Q8HR PANTOPRAZOLE 40 MG PO Q12HR ASPIRIN 162 MG PO DAILY carvediloL 25 MG PO BID MEALS MELATONIN 5 MG PO BEDTIME MULTIVITAMIN WITH FOLIC ACID 1 TAB PO DAILY IPRATROPIUM/ALBUTEROL SULFATE 3 ML NEB RTQ6H WA GALANTAMINE HYDROBROMIDE 8 MG PO 0800,1800 amLODIPine BESYLATE 10 MG PO DAILY FUROSEMIDE 40 MG IV BID@0700,1500 ATORVASTATIN CALCIUM 80 MG PO BEDTIME LEVOTHYROXINE SODIUM 25 MCG PO DAILY@0600 ONDANSETRON HCL/PF 4 MG IV Q6H PRN LABS CBC W/AUTO DIFF (02/16/23 05:02) WHITE BLOOD CELL 7.7 RED BLOOD CELL 2.88 L HEMOGLOBIN 8.8L L HEMATOCRIT 27.0L L MEAN CELL VOLUME 94 MEAN CELL HGB 30.6 MEAN CELL HGB CONCENTRATION 32.6 RED CELL DISTRIBUTION WIDTH 17.2 H PLATELET COUNT 252 MEAN PLATELET VOLUME 11.6 NEUTROPHIL % 74.1 IMMATURE GRANULOCYTE % 0.4 LYMPHOCYTE % 13.0 L MONOCYTE % 8.6 EOSINOPHIL % 3.6 BASOPHIL % 0.3 NUCLEATED RBC % 0.0 NEUTROPHIL # 5.72 IMMATURE GRANULOCYTE # 0.030 LYMPHOCYTE # 1.00 L MONOCYTE # 0.66 EOSINOPHIL # 0.28 BASOPHIL # 0.02 NUCLEATED RBC # 0.000 BASIC METABOLIC PANEL (02/16/23 04:55) SODIUM 136 POTASSIUM 4.0 CHLORIDE 105 CARBON DIOXIDE 26 ANION GAP 9.0 GLUCOSE 107H H BLOOD UREA NITROGEN 65H H GLOMERULAR FILTRATION RATE 26 L CREATININE 1.9H H BUN/CREATININE RATIO 34.2 H CALCIUM 8.3 L Signed in PatientKeeper by Ministerio Witt MD on 02/16/23 at 11:15 Electronically Signed by Ministerio Witt MD on 0 02/16/23 at 1115 ATTENTION *EDITS and/or ADDENDA must be made in Patient [facility] for this note. * * Edits and ammendments created in [facility] are not visible * * in Patient Keeper or the legal medical record ([facility]). * RPT #: [id number] END OF REPORT 2023-02-15 [facility] 21:28:00-00:00 [facility] ([facility]) Gastroenterology Prog. Note REPORT #: [id number] REPORT STATUS: Signed DATE: 02/15/23 TIME: 2127 PATIENT: CASEY LYONS UNIT #: [id number] ROOM #: [id number] BED: 1 : 37 AGE: 87 SEX: F ATTEND: Linda Whitaker MD ADM AUTHOR: Bennie Bruno MD ATTENTION *EDITS and/or ADDENDA must be made in Patient [facility] for this note. * * Edits and ammendments created in [facility] are not visible * * in Patient Keeper or the legal medical record ([facility]). 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 But these were very small. Famil y not interested in her going through a colonoscopy for further evaluation. They understand the risk of missing colon cancer. Ok to use ASA and DAPT. 2: Elevated troponin A/P: Cardiology consulted. 3: CKD (chronic kidney disease) A/P: Nephro on board. 4: Dementia A/P: stable dementia. -- SUBJECTIVE -- CHIEF COMPLAINT: Anemia HPI: I have spoken to the patients RN and heard the p atient issues in the past 24hrs. There have been no changes in GI point of view. No new complains. No Melena or Hematochezia or Hematemesis -- OBJECTIVE -- VITALS (02/14 21:28 - 02/15 21:28): Temperature C: 36.5 (36.5 - 36.8) Temperature source: Oral Pulse Rate 50 (49 - 60) Respiratory rate: 18 (15 - 20) Blood pressure: 154/63 (129/47 - 171/64) I/Os (02/14 07:00 - 02/15 07:00): Net 650 Intake 650 -EXAM- GENERAL: Well developed, in no acute distress. HEAD: Normocephalic, atraumatic. EYES: PERRL, lids normal. NECK: Supple, No masses. CHEST: Grossly normal appearance. LUNGS: Clear bilaterally with normal respiratory effort. HEART: Regular rate and rhythm, normal S1, S2. ABDOMEN: Soft, non-tender, no masses noted. MUSCULOSKELETAL: No deformity. NEUROLOGICAL: No focal deficits. -- DATA -- MEDICATIONS ACETAMINOPHEN 650 MG PO Q4H PRN guaiFENesin 600 MG PO Q12H PRN hydrALAZINE HCL 10 MG IV Q6H PRN MEMANTINE HCL 5 MG PO BID MONTELUKAST SODIUM 10 MG PO BEDTIME BENZONATATE 200 MG PO TID KETOTIFEN FUMARATE 1 DROP EACH EYE Q8HR PANTOPRAZOLE 40 MG PO Q12HR carvediloL 25 MG PO BID MEALS MELATONIN 5 MG PO BEDTIME MULTIVITAMIN WITH FOLIC ACID 1 TAB PO DAILY IPRATROPIUM/ALBUTEROL SULFATE 3 ML NEB RTQ6H WA ASPIRIN 81 MG PO DAILY GALANTAMINE HYDROBROMIDE 8 MG PO 0800,1800 amLODIPine BESYLATE 10 MG PO DAILY FUROSEMIDE 40 MG IV BID@0700,1500 ATORVASTATIN CALCIUM 80 MG PO BEDTIME LEVOTHYROXINE SODIUM 25 MCG PO DAILY@0600 ONDANSETRON HCL/PF 4 MG IV Q6H PRN LABS BASIC METABOLIC PANEL (02/15/23 04:28) SODIUM 137 POTASSIUM 4.1 CHLORIDE 106 CARBON DIOXIDE 26 ANION GAP 9.1 GLUCOSE 109H H BLOOD UREA NITROGEN 62H H GLOMERULAR FILTRATION RATE 23 L CREATININE 2.1H H BUN/CREATININE RATIO 29.5 H CALCIUM 9.0 CBC W/AUTO DIFF (02/15/23 04:28) WHITE BLOOD CELL 9.0 RED BLOOD CELL 3.06 L HEMOGLOBIN 9.3L L HEMATOCRIT 29.0L L MEAN CELL VOLUME 95 MEAN CELL HGB 30.4 MEAN CELL HGB CONCENTRATION 32.1 RED CELL DISTRIBUTION WIDTH 17.4 H PLATELET COUNT 260 MEAN PLATELET VOLUME 12.3 NEUTROPHIL % 80.7 H IMMATURE GRANULOCYTE % 0.4 LYMPHOCYTE % 9.2 L MONOCYTE % 7.1 EOSINOPHIL % 2.4 BASOPHIL % 0.2 NUCLEATED RBC % 0.0 NEUTROPHIL # 7.23 H IMMATURE GRANULOCYTE # 0.040 LYMPHOCYTE # 0.83 L MONOCYTE # 0.64 EOSINOPHIL # 0.22 BASOPHIL # 0.02 NUCLEATED RBC # 0.000 LDH (02/15/23 04:28) LACTIC DEHYDROGENASE(LDH) 221 Signed in PatientKeeper by Bennie Bruno MD on at 21:28 Electronically Signed by Bennie Bruno MD on 01/22 12/13 at 2128 ATTENTION *EDITS and/or ADDENDA must be made in Patient Ke eper for this note. * * Edits and ammendments created in [facility] are not visible * * in Patient Keeper or the legal medical record ([facility]). * RPT #: [id number] END OF REPORT 2023-02-15 [facility] 12:32:00-00:00 [facility] ([facility]) Hospitalist Progress Note REPORT #: [id number] REPORT STATUS: Signed DATE: 02/15/23 TIME: 1232 PATIENT: CASEY LYONS UNIT #: [id number] ROOM #: [id number] BED: 1 : 37 AGE: 87 SEX: F ATTEND: Linda Whitaker MD ADM AUTHOR: Linda Whitaker MD ATTENTION *EDITS and/or ADDENDA must be made in Patient Ke eper for this note. * * Edits and ammendments created in [employer] are not visible * * in Patient Keeper or the legal medical record ([facility]). * -- ASSESSMENT AND PLAN -- GENERAL ASSESSMENT: Assessment and plan: 1--community acquired pneumonia: 2--acute of chronic CHF: 3--pleural effusion: ECHO Ejection Fraction = 45-50%. BNP reveiwed CT chest: Large bilateral pleural effusions with underlying compressive atelectasis. Cardiomegaly. Thoracentesis fluid studies: Pending -IV lasix -Rocephin nd azithromycin -DuoNeb's as needed for sob -O2 supplementation as needed to keep O2 saturat ions> 92 % -Cardiology and pulmonary on board follow recs 4--NSTEMI: Complains of off-and-on chest pain and shortness of breath---denies any chest pain Elevated troponin ECHO: Ejection Fraction = 45-50% -Serial troponin monitoring -Continuous telemetry monitoring -Hold aspirin given concerns of GI bleed -Sublingual nitroglycerin as needed for chest pa in -Loop recorder as outpatient if patient and fami ly agree. -Cardiology on board, follow recommendations Moderate to high perioperative cardiovascular risk, but not prohibitive---cardio recs appreciated, Extens jeff discussion was held with the patient, son at bedside and cardiology---wants medical management, hold off on aggressive intervention 5--acute on chronic anemia--iron deficiency: 6--possible GI bleed: S/p PRBC transfusion S/P EGD showed small AVMs in the body of the sto mach and treated by APC. But these were very small. Famil y not interested in her going through a colonoscopy for further evaluation. -Aspirin -IV iron -Trend H H -Transfuse PRBC if Hgb< 7 -Monitor for signs and symptoms of bleeding -Hold Eliquis -GI on board, follow recommendations 7--carotid artery disease: 8--coronary artery disease: 9--peripheral artery disease: -Continue home medications -Aspirin started after GI clearance -Hold Eliquis -Cardiology on board, follow recommendations 10--hypothyroidism: TSH 3.54 -Continue home dose Synthroid 11--hypertension: -Monitor vitals -Continue home medications and adjust as needed 12--dyslipidemia: -Continue statin 13--CKD--unknown baseline creatinine: -Avoid nephrotoxic medication -Trend BMP 14--CVA, dementia: -Continue home medication -Supportive care DVT prophylaxis SCDs GI prophylaxis PPI CODE STATUS full code Disposition pending clinical course Time Spent 40 minutes -- SUBJECTIVE -- PATIENT NARRATIVE: Pt seen and examined by me i n the morning. Hemodynamically stable, continues to be on IV lasix. S/p thoracentesis 900 mL. Breath ing better. -- OBJECTIVE -- VITALS (02/14 12:33 - 02/15 12:33): Temperature C: 36.5 (36.4 - 37.0) Temperature source: Oral Pulse Rate 56 (49 - 58) Respiratory rate: 16 (15 - 20) Blood pressure: 142/47 (126/47 - 171/71) I/Os (02/14 07:00 - 02/15 07:00): Net 650 Intake 650 -EXAM- GENERAL: Well developed, in no acute distress. HEAD: Normocephalic, atraumatic. EYES: PERRL, lids normal. NECK: Supple, No masses. CHEST: Grossly normal appearance. LUNGS: Decreased bilateral bases, improving. HEART: Regular rate and rhythm, normal S1, S2. ABDOMEN: Soft, non-tender, no masses noted. MUSCULOSKELETAL: No deformity. NEUROLOGICAL: No focal deficits. -- DATA -- MEDICATIONS ACETAMINOPHEN 650 MG PO Q4H PRN guaiFENesin 600 MG PO Q12H PRN hydrALAZINE HCL 10 MG IV Q6H PRN MEMANTINE HCL 5 MG PO BID MONTELUKAST SODIUM 10 MG PO BEDTIME BENZONATATE 200 MG PO TID KETOTIFEN FUMARATE 1 DROP EACH EYE Q8HR PANTOPRAZOLE 40 MG PO Q12HR carvediloL 25 MG PO BID MEALS MELATONIN 5 MG PO BEDTIME MULTIVITAMIN WITH FOLIC ACID 1 TAB PO DAILY IPRATROPIUM/ALBUTEROL SULFATE 3 ML NEB RTQ6H WA ASPIRIN 81 MG PO DAILY GALANTAMINE HYDROBROMIDE 8 MG PO 0800,1800 amLODIPine BESYLATE 10 MG PO DAILY FUROSEMIDE 40 MG IV BID@0700,1500 ATORVASTATIN CALCIUM 80 MG PO BEDTIME LEVOTHYROXINE SODIUM 25 MCG PO DAILY@0600 ONDANSETRON HCL/PF 4 MG IV Q6H PRN LABS BASIC METABOLIC PANEL (02/15/23 04:28) SODIUM 137 POTASSIUM 4.1 CHLORIDE 106 CARBON DIOXIDE 26 ANION GAP 9.1 GLUCOSE 109H H BLOOD UREA NITROGEN 62H H GLOMERULAR FILTRATION RATE 23 L CREATININE 2.1H H BUN/CREATININE RATIO 29.5 H CALCIUM 9.0 CBC W/AUTO DIFF (02/15/23 04:28) WHITE BLOOD CELL 9.0 RED BLOOD CELL 3.06 L HEMOGLOBIN 9.3L L HEMATOCRIT 29.0L L MEAN CELL VOLUME 95 MEAN CELL HGB 30.4 MEAN CELL HGB CONCENTRATION 32.1 RED CELL DISTRIBUTION WIDTH 17.4 H PLATELET COUNT 260 MEAN PLATELET VOLUME 12.3 NEUTROPHIL % 80.7 H IMMATURE GRANULOCYTE % 0.4 LYMPHOCYTE % 9.2 L MONOCYTE % 7.1 EOSINOPHIL % 2.4 BASOPHIL % 0.2 NUCLEATED RBC % 0.0 NEUTROPHIL # 7.23 H IMMATURE GRANULOCYTE # 0.040 LYMPHOCYTE # 0.83 L MONOCYTE # 0.64 EOSINOPHIL # 0.22 BASOPHIL # 0.02 NUCLEATED RBC # 0.000 LDH (02/15/23 04:28) LACTIC DEHYDROGENASE(LDH) 221 FLD PROT (02/14/23 14:18) FLUID PROTEIN < 2.0 FLD LDH (02/14/23 14:18) FLUID LDH 60 FLD GLU (02/14/23 14:18) FLUID GLUCOSE 124 -- ATTESTATION -- TIME SPENT ON PATIENT CARE: - Direct 40 minutes - > 50% of time spent on Counseling/Care Coordi nation CARE ACTIVITIES / CARE COORDINATION: - I have reviewed the history and repeated the up elements - I have seen and examined this patient - I have reviewed the progress in the clinical course since the last examination - I have discussed the preet ent's condition with other members of the care team Signed in PatientKeeper by Linda Whitaker MD on at 12:37 Electronically Signed by Linda Whitaker MD on 01/22 12/13 at 1237 ATTENTION *EDITS and/or ADDENDA must be made in Patient Ke eper for this note. * * Edits and ammendments created in [employer] are not visible * * in Patient Keeper or the legal medical record ([facility]). * RPT #: [id number] END OF REPORT 2023-02-15 [facility] 12:10:00-00:00 [facility] ([facility]) Cardiology Progress Notes REPORT #: [id number] REPORT STATUS: Signed DATE: 02/15/23 TIME: 1210 PATIENT: CASEY LYONS UNIT #: [id number] ROOM #: [id number] BED: 1 : 37 AGE: 87 SEX: F ATTEND: Linda Whitkaer MD ADM AUTHOR: Ministerio Witt MD ATTENTION *EDITS and/or ADDENDA must be made in Patient Ke eper for this note. * * Edits and ammendments created in [facility] are not visible * * in Patient Keeper or the legal medical record ([facility]). * -- ASSESSMENT AND PLAN -- PROBLEMS: 1: SOB (shortness of breath) A/P: sec to pleural effusion and DHF and CKD s/p Thoracentesis Feels better ON Lasix 40 mg IV BID 2: Pleural effusion A/P: s/p thoracentesis Pulm on board 3: Elevated troponin A/P: 2y to severe anemia also has hx of prior CAD and stents probably type II TN poor cath candidate for revascularization due to anemia/gibleed. now on ASA / BB 4: Post-operative state A/P: POST OP EGD tolerated egd without complication 5: Anemia A/P: RECURRENT s/p repeated transfusions per GI doing ok on ASA 6: Hypertension A/P: Increase Amlodipine ON Coreg. NO ARB due toelevated creat 7: Cerebrovascular accident, old A/P: unclear residual deficits ? multi-infarct dementia. was on eliquis 2.5 mg bid as outpatient. PER son her CVA stopped after being on Eliqios NO DIAGNSOES IF AFIB PER SON not sure if she will tolerate oac given recurren t anemia/gi bleeding issues Should get Loop recorder as out patient if patie nt and family agree. 8: Hyperlipidemia LDL goal <70 A/P: on statin 9: Peripheral vascular disease A/P: s/p bilateral LE bypasses? 10: Chronic kidney disease A/P: as per med team MOnitor renal function. -- SUBJECTIVE -- PATIENT NARRATIVE: Seen in the room Daughter at bedside. s/p thoracentesis yesterday with 900 cc removed Looks better NO fever -REVIEW OF SYSTEMS- COMMENT: general review of systems performed and was otherwise unremarkable except noted above -- OBJECTIVE -- VITALS (02/14 12:10 - 02/15 12:10): Temperature C: 36.8 (36.4 - 37.0) Temperature source: Oral Pulse Rate 57 (49 - 58) Respiratory rate: 15 (15 - 20) Blood pressure: 171/62 (126/52 - 171/71) I/Os (02/14 07:00 - 02/15 07:00): Net 650 Intake 650 ADDITIONAL V/S: Tele NSR -EXAM- OTHER: Gen: older female. appears weak. appears pale. HEENT: nc/at. pupils equal. NECK: no jvd. no bruits LUNGS: reduced A/E in both bases L > R CARDIAC: regular rate and rhythm. normal s1 and s2. 2/6 systolic murmur ABDOMEN: soft. normal bowel sounds. not tender. EXTREMITIES: no edema. absent pulses.. NEUROLOGY: alert and oriented x 2 -- DATA -- MEDICATIONS ACETAMINOPHEN 650 MG PO Q4H PRN amLODIPine BESYLATE 5 MG PO DAILY guaiFENesin 600 MG PO Q12H PRN hydrALAZINE HCL 10 MG IV Q6H PRN MEMANTINE HCL 5 MG PO BID MONTELUKAST SODIUM 10 MG PO BEDTIME BENZONATATE 200 MG PO TID KETOTIFEN FUMARATE 1 DROP EACH EYE Q8HR PANTOPRAZOLE 40 MG PO Q12HR carvediloL 25 MG PO BID MEALS MELATONIN 5 MG PO BEDTIME MULTIVITAMIN WITH FOLIC ACID 1 TAB PO DAILY IPRATROPIUM/ALBUTEROL SULFATE 3 ML NEB RTQ6H WA ASPIRIN 81 MG PO DAILY GALANTAMINE HYDROBROMIDE 8 MG PO 0800,1800 FUROSEMIDE 40 MG IV BID@0700,1500 ATORVASTATIN CALCIUM 80 MG PO BEDTIME LEVOTHYROXINE SODIUM 25 MCG PO DAILY@0600 ONDANSETRON HCL/PF 4 MG IV Q6H PRN LABS BASIC METABOLIC PANEL (02/15/23 04:28) SODIUM 137 POTASSIUM 4.1 CHLORIDE 106 CARBON DIOXIDE 26 ANION GAP 9.1 GLUCOSE 109H H BLOOD UREA NITROGEN 62H H GLOMERULAR FILTRATION RATE 23 L CREATININE 2.1H H BUN/CREATININE RATIO 29.5 H CALCIUM 9.0 CBC W/AUTO DIFF (08/26/23 04:28) WHITE BLOOD CELL 9.0 RED BLOOD CELL 3.06 L HEMOGLOBIN 9.3L L HEMATOCRIT 29.0L L MEAN CELL VOLUME 95 MEAN CELL HGB 30.4 MEAN CELL HGB CONCENTRATION 32.1 RED CELL DISTRIBUTION WIDTH 17.4 H PLATELET COUNT 260 MEAN PLATELET VOLUME 12.3 NEUTROPHIL % 80.7 H IMMATURE GRANULOCYTE % 0.4 LYMPHOCYTE % 9.2 L MONOCYTE % 7.1 EOSINOPHIL % 2.4 BASOPHIL % 0.2 NUCLEATED RBC % 0.0 NEUTROPHIL # 7.23 H IMMATURE GRANULOCYTE # 0.040 LYMPHOCYTE # 0.83 L MONOCYTE # 0.64 EOSINOPHIL # 0.22 BASOPHIL # 0.02 NUCLEATED RBC # 0.000 LDH (02/15/23 04:28) LACTIC DEHYDROGENASE(LDH) 221 FLD PROT (02/14/23 14:18) FLUID PROTEIN < 2.0 FLD LDH (02/14/23 14:18) FLUID LDH 60 FLD GLU (02/14/23 14:18) FLUID GLUCOSE 124 Signed in PatientKeeper by Ministerio Witt MD on 02/15/23 at 12:13 Electronically Signed by Ministerio Witt MD on 0 02/15/23 at 1213 ATTENTION *EDITS and/or ADDENDA must be made in Patient Ke eper for this note. * * Edits and ammendments created in [facility] are not visible * * in Patient Keeper or the legal medical record ([facility]). * RPT #: [id number] END OF REPORT 2023-02-15 [facility] 10:20:00-00:00 [facility] ([facility]) Pulmonology Progress Note REPORT #: [id number] REPORT STATUS: Signed DATE: 02/15/23 TIME: 1020 PATIENT: CASEY LYONS UNIT #: [id number] ROOM #: [id number] BED: 1 : 37 AGE: 87 SEX: F ATTEND: Linda Whitaker MD ADM AUTHOR: Rita Luna ATTENTION *EDITS and/or ADDENDA must be made in Patient Ke eper for this note. * * Edits and ammendments created in [employer] are not visible * * in Patient Keeper or the legal medical record ([facility]). * -- ASSESSMENT AND PLAN -- GENERAL ASSESSMENT: [facility] Assessment Acute hypoxic respiratory failure Pleural effusions Acute on chronic HFpEF Possible pneumonia NSTEMI Acute on chronic anemia GI bleed CAD Hypothyroidism HTN CKD Plan: -Chest x-ray reviewed- bilateral lower lobe opac ities with pleural effusions, not much change on comparison to previous chest x-ray 02/10 -Suspect volume overload rather than pneumonia b ased on presentation, also received transfusion -Elevated BNP noted, continue IV Lasix -TTE reviewed, EF 45-50%, Cardiology following - On 2 L nasal cannula O2, wean for sats more th an 92% -CT chest reviewed -moderate bilateral pleural e ffusions with atelectasis -Given ongoing diuresis and persistent symptoms, recommend thoracentesis. Pt in agreement, requested on right side with pleural fluid studies, pending result -Will DC empiric antibiotics as unlikely to be p neumonia -Former smoker-continue bronchodilators SCD for DVT prophylaxis Plan of care discussed in de tail with patient and daughter at bedside, answered questions We will follow with you --------- Subjective: EVI noted overnight. Discussed with staff. Patient seen and examined. Labs/Diagnostics reviewed AA Ox3, NAD noted. Denies dyspnea or cough. Afebrile, VSS, tolerating RA HPI: 87-year-old female with past medical history as below admitted from [facility] with symptomatic anemia. Received PRBC, a lso found to have NSTEMI and underwent EGD. had worsening chest x-ray and Pul monary Service consulted. Patient complains of shortne ss of breath with exertion and nonproductive cough, minimal chest discomfort, no fever Past medical history: hypertension, hypothyroidi sm, CHF, PVD, current carotid artery disease, dyslipidemia, CAD, CKD, CVA, dem entia, hearing loss, iron deficiency anemia PSurgHx: bilateral femoral popliteal bypass, hys terectomy FamHx: noncontributory SocHx: former smoker, quit 15 years back Review of systems: 14 point review system negati ve unless listed above Physical Exam General: NAD, thin, frail Eyes: Anicteric sclerae. Mouth: MMM Neck: Supple. CV: Regular rate and rhythm. Normal S1 and S2. Pulm: Good effort, diminished BS Abdomen: Soft, nontender.BS+ Extremities: No lower extremity edema. Skin: Warm, dry. Neuro: Awake and alert, no focal neurological de ficit Psych: normal mood I have personally provided 3 1 minutes of direct care time. Time includes review of laboratory data, radiology results, d iscussion with consultants, family and staff and monitoring for pot ential decompensation. Interventions were performed as documented above. This Is exclusive of time s pent on separately billable procedures -- OBJECTIVE -- VITALS (02/14 10:20 - 02/15 10:20): Temperature C: 36.8 (36.4 - 37.0) Temperature source: Oral Pulse Rate 57 (49 - 58) Respiratory rate: 15 (15 - 20) Blood pressure: 171/62 (126/52 - 171/71) I/Os (02/14 07:00 - 02/15 07:00): Net 650 Intake 650 -- DATA -- MEDICATIONS ACETAMINOPHEN 650 MG PO Q4H PRN amLODIPine BESYLATE 5 MG PO DAILY guaiFENesin 600 MG PO Q12H PRN hydrALAZINE HCL 10 MG IV Q6H PRN MEMANTINE HCL 5 MG PO BID MONTELUKAST SODIUM 10 MG PO BEDTIME BENZONATATE 200 MG PO TID KETOTIFEN FUMARATE 1 DROP EACH EYE Q8HR PANTOPRAZOLE 40 MG PO Q12HR carvediloL 25 MG PO BID MEALS MELATONIN 5 MG PO BEDTIME MULTIVITAMIN WITH FOLIC ACID 1 TAB PO DAILY IPRATROPIUM/ALBUTEROL SULFATE 3 ML NEB RTQ6H WA ASPIRIN 81 MG PO DAILY GALANTAMINE HYDROBROMIDE 8 MG PO 0800,1800 FUROSEMIDE 40 MG IV BID@0700,1500 ATORVASTATIN CALCIUM 80 MG PO BEDTIME LEVOTHYROXINE SODIUM 25 MCG PO DAILY@0600 ONDANSETRON HCL/PF 4 MG IV Q6H PRN LABS BASIC METABOLIC PANEL (02/15/23 04:28) SODIUM 137 POTASSIUM 4.1 CHLORIDE 106 CARBON DIOXIDE 26 ANION GAP 9.1 GLUCOSE 109H H BLOOD UREA NITROGEN 62H H GLOMERULAR FILTRATION RATE 23 L CREATININE 2.1H H BUN/CREATININE RATIO 29.5 H CALCIUM 9.0 CBC W/AUTO DIFF (02/15/23 04:28) WHITE BLOOD CELL 9.0 RED BLOOD CELL 3.06 L HEMOGLOBIN 9.3L L HEMATOCRIT 29.0L L MEAN CELL VOLUME 95 MEAN CELL HGB 30.4 MEAN CELL HGB CONCENTRATION 32.1 RED CELL DISTRIBUTION WIDTH 17.4 H PLATELET COUNT 260 MEAN PLATELET VOLUME 12.3 NEUTROPHIL % 80.7 H IMMATURE GRANULOCYTE % 0.4 LYMPHOCYTE % 9.2 L MONOCYTE % 7.1 EOSINOPHIL % 2.4 BASOPHIL % 0.2 NUCLEATED RBC % 0.0 NEUTROPHIL # 7.23 H IMMATURE GRANULOCYTE # 0.040 LYMPHOCYTE # 0.83 L MONOCYTE # 0.64 EOSINOPHIL # 0.22 BASOPHIL # 0.02 NUCLEATED RBC # 0.000 LDH (02/15/23 04:28) LACTIC DEHYDROGENASE(LDH) 221 FLD PROT (02/14/23 14:18) FLUID PROTEIN < 2.0 FLD LDH (02/14/23 14:18) FLUID LDH 60 FLD GLU (02/14/23 14:18) FLUID GLUCOSE 124 Signed in PatientKeeper by Rita Luna APR on 02/15/23 at 14:30 Cosigned by GEOVANI CARSON MD on 02/15/23 at 18 :09 at 1809 Electronically Signed by Geovani Carson MD on 0 02/15/23 at 1809 ATTENTION *EDITS and/or ADDENDA must be made in Patient Ke eper for this note. * * Edits and ammendments created in [facility] are not visible * * in Patient Keeper or the legal medical record ([facility]). * RPT #: [id number] END OF REPORT 2023-02-14 [facility] 16:00:00-00:00 [facility] ([facility]) Gastroenterology Prog. Note REPORT #: [id number] REPORT STATUS: Signed DATE: 02/14/23 TIME: 1600 PATIENT: CASEY LYONS UNIT #: [id number] ROOM #: [id number] BED: 1 : 37 AGE: 87 SEX: F ATTEND: Linda Whitaker MD ADM AUTHOR: Bennie Bruno MD ATTENTION *EDITS and/or ADDENDA must be made in Patient Ke eper for this note. * * Edits and ammendments created in [employer] are not visible * * in Patient Keeper or the legal medical record ([facility]). 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 But these were very small. Famil y not interested in her going through a colonoscopy for further evaluation. They understand the risk of missing colon cancer. Ok to use ASA and DAPT. 2: Elevated troponin A/P: Cardiology consulted. 3: CKD (chronic kidney disease) A/P: Nephro on board. 4: Dementia A/P: stable dementia. -- SUBJECTIVE -- CHIEF COMPLAINT: Anemia HPI: I have spoken to the patients RN and heard the p atient issues in the past 24hrs. There have been no changes in GI point of view. No new complains. No Melena or Hematochezia or Hematemesis -- OBJECTIVE -- VITALS (02/14 21:27 - 02/15 21:27): Temperature C: 36.5 (36.5 - 36.8) Temperature source: Oral Pulse Rate 50 (49 - 60) Respiratory rate: 18 (15 - 20) Blood pressure: 154/63 (129/47 - 171/64) I/Os (02/14 07:00 - 02/15 07:00): Net 650 Intake 650 -EXAM- GENERAL: Well developed, in no acute distress. HEAD: Normocephalic, atraumatic. EYES: PERRL, lids normal. NECK: Supple, No masses. CHEST: Grossly normal appearance. LUNGS: Clear bilaterally with normal respiratory effort. HEART: Regular rate and rhythm, normal S1, S2. ABDOMEN: Soft, non-tender, no masses noted. MUSCULOSKELETAL: No deformity. NEUROLOGICAL: No focal deficits. -- DATA -- MEDICATIONS ACETAMINOPHEN 650 MG PO Q4H PRN guaiFENesin 600 MG PO Q12H PRN hydrALAZINE HCL 10 MG IV Q6H PRN MEMANTINE HCL 5 MG PO BID MONTELUKAST SODIUM 10 MG PO BEDTIME BENZONATATE 200 MG PO TID KETOTIFEN FUMARATE 1 DROP EACH EYE Q8HR PANTOPRAZOLE 40 MG PO Q12HR carvediloL 25 MG PO BID MEALS MELATONIN 5 MG PO BEDTIME MULTIVITAMIN WITH FOLIC ACID 1 TAB PO DAILY IPRATROPIUM/ALBUTEROL SULFATE 3 ML NEB RTQ6H WA ASPIRIN 81 MG PO DAILY GALANTAMINE HYDROBROMIDE 8 MG PO 0800,1800 amLODIPine BESYLATE 10 MG PO DAILY FUROSEMIDE 40 MG IV BID@0700,1500 ATORVASTATIN CALCIUM 80 MG PO BEDTIME LEVOTHYROXINE SODIUM 25 MCG PO DAILY@0600 ONDANSETRON HCL/PF 4 MG IV Q6H PRN LABS BASIC METABOLIC PANEL (02/15/23 04:28) SODIUM 137 POTASSIUM 4.1 CHLORIDE 106 CARBON DIOXIDE 26 ANION GAP 9.1 GLUCOSE 109H H BLOOD UREA NITROGEN 62H H GLOMERULAR FILTRATION RATE 23 L CREATININE 2.1H H BUN/CREATININE RATIO 29.5 H CALCIUM 9.0 CBC W/AUTO DIFF (02/15/23 04:28) WHITE BLOOD CELL 9.0 RED BLOOD CELL 3.06 L HEMOGLOBIN 9.3L L HEMATOCRIT 29.0L L MEAN CELL VOLUME 95 MEAN CELL HGB 30.4 MEAN CELL HGB CONCENTRATION 32.1 RED CELL DISTRIBUTION WIDTH 17.4 H PLATELET COUNT 260 MEAN PLATELET VOLUME 12.3 NEUTROPHIL % 80.7 H IMMATURE GRANULOCYTE % 0.4 LYMPHOCYTE % 9.2 L MONOCYTE % 7.1 EOSINOPHIL % 2.4 BASOPHIL % 0.2 NUCLEATED RBC % 0.0 NEUTROPHIL # 7.23 H IMMATURE GRANULOCYTE # 0.040 LYMPHOCYTE # 0.83 L MONOCYTE # 0.64 EOSINOPHIL # 0.22 BASOPHIL # 0.02 NUCLEATED RBC # 0.000 LDH (02/15/23 04:28) LACTIC DEHYDROGENASE(LDH) 221 Signed in PatientKeeper by Bennie Bruno MD on at 21:28 Electronically Signed by Bennie Bruno MD on 01/22 12/13 at 2128 ATTENTION *EDITS and/or ADDENDA must be made in Patient [facility] for this note. * * Edits and ammendments created in [employer] are not visible * * in Patient Keeper or the legal medical record ([facility]). * RPT #: [id number] END OF REPORT 2023-02-14 [facility] 14:20:00-00:00 [facility] ([facility]) Non-Operative Procedure Note REPORT #: [id number] REPORT STATUS: Signed DATE: 02/14/23 TIME: 1420 PATIENT: CASEY LYONS UNIT #: [id number] ROOM #: [id number] BED: 1 : 37 AGE: 87 SEX: F ATTEND: Linda Whitaker MD ADM AUTHOR: Sera Dow ATTENTION *EDITS and/or ADDENDA must be made in Patient [facility] for this note. * * Edits and ammendments created in [employer] are not visible * * in Patient Keeper or the legal medical record ([facility]). * -- PROCEDURE -- PERFORMED BY: Sera Dow -- DESCRIPTION -- DESCRIPTION OF TECHNIQUE/PROCEDURE: Date: 02/14/23 Time: 1400 Procedure: US GUIDED THORACENTESIS Indication: Pleural Effusion Approach: Posterior Medication: Lidocaine Findings: Successful removal of 900 mL yellow fluid from right thoracic cavity. Labs sent. Complication: None. Estimated Blood Loss: Less than 5mL. Plan: Chest X-ray then return to the floor. Signed in PatientKeeper by Sera Dow on 02/14/23 at 14:23 Cosigned by BARON SAULO UGALDE on 02/14/23 at 18:29 at 1829 Electronically Signed by Baron Aftab MD on 01/22 11/12 at 1829 ATTENTION *EDITS and/or ADDENDA must be made in Patient Ke eper for this note. * * Edits and ammendments created in [employer] are not visible * * in Patient Keeper or the legal medical record ([facility]). * RPT #: [id number] END OF REPORT 2023-02-14 [facility] 12:01:00-00:00 [facility] ([facility]) Hospitalist Progress Note REPORT #: [id number] REPORT STATUS: Signed DATE: 02/14/23 TIME: 1201 PATIENT: CASEY LYONS UNIT #: [id number] ROOM #: [id number] BED: 1 : 37 AGE: 87 SEX: F ATTEND: Linda Whitaker MD ADM AUTHOR: Linda Whitaker MD ATTENTION *EDITS and/or ADDENDA must be made in Patient Ke eper for this note. * * Edits and ammendments created in [employer] are not visible * * in Patient Keeper or the legal medical record ([facility]). * -- ASSESSMENT AND PLAN -- GENERAL ASSESSMENT: Assessment and plan: 1--community acquired pneumonia: 2--acute of chronic CHF: 3--pleural effusion: ECHO Ejection Fraction = 45-50%. BNP reveiwed CT chest: Large bilateral pleural effusions with underlying compressive atelectasis. Cardiomegaly. -IV lasix -Rocephin nd azithromycin -DuoNeb's as needed for sob -O2 supplementation as needed to keep O2 saturat ions> 92 % -Plan for thoracentesis today -Cardiology and pulmonary on board follow recs 4--NSTEMI: Complains of off-and-on chest pain and shortness of breath---denies any chest pain Elevated troponin ECHO: Ejection Fraction = 45-50% -Serial troponin monitoring -Continuous telemetry monitoring -Hold aspirin given concerns of GI bleed -Sublingual nitroglycerin as needed for chest pa in -Loop recorder as out patient if patient and fam gisell agree. -Cardiology on board, follow recommendations Moderate to high perioperative cardiovascular risk, but not prohibitive---cardio recs appreciated, Extens jeff discussion was held with the patient, son at bedside and cardiology---wants medical management,/hold off on aggressive intervention 5--acute on chronic anemia--iron deficiency: 6--possible GI bleed: S/p PRBC transfusion S/P EGD showed small AVMs in the body of the sto mach and treated by APC. But these were very small. Famil y not interested in her going through a colonoscopy for further evaluation. -IV iron -Trend H H -Transfuse PRBC if Hgb< 7 -Monitor for signs and symptoms of bleeding -Hold aspirin and Eliquis -GI on board, follow recommendations 7--carotid artery disease: 8--coronary artery disease: 9--peripheral artery disease: -Continue home medications -Aspirin Started after GI clearance -Hold Eliquis -Cardiology on board, follow recommendations 10--hypothyroidism: TSH 3.54 -Continue home dose Synthroid 11--hypertension: -Monitor vitals -Continue home medications and adjust as needed 12--dyslipidemia: -Continue statin 13--CKD--unknown baseline creatinine: -Avoid nephrotoxic medication -Trend BMP 14--CVA, dementia: -Continue home medication -Supportive care DVT prophylaxis SCDs GI prophylaxis PPI CODE STATUS full code Disposition pending clinical course and consulti ng services clearance Time Spent 40 minutes -- SUBJECTIVE -- PATIENT NARRATIVE: Pt seen and examined by me in the morning. Hemod ynamically stable, Pulmonary evaluated the patient, CT ch est performed and reviewed. Plan for thoracentesis. -- OBJECTIVE -- VITALS (02/13 12:01 - 02/14 12:01): Temperature C: 36.4 (36.4 - 37.6) Temperature source: Oral Pulse Rate 55 (51 - 55) Respiratory rate: 16 (16 - 18) Blood pressure: 150/63 (107/51 - 150/66) I/Os (02/13 07:00 - 02/14 07:00): Net 900.00 Intake 900.00 -EXAM- GENERAL: Well developed, in no acute distress. HEAD: Normocephalic, atraumatic. EYES: PERRL, lids normal. NECK: Supple, No masses. CHEST: Grossly normal appearance. LUNGS: Decreased bilateral bases, improving. HEART: Regular rate and rhythm, normal S1, S2. ABDOMEN: Soft, non-tender, no masses noted. MUSCULOSKELETAL: No deformity. NEUROLOGICAL: No focal deficits. -- DATA -- MEDICATIONS ACETAMINOPHEN 650 MG PO Q4H PRN amLODIPine BESYLATE 5 MG PO DAILY guaiFENesin 600 MG PO Q12H PRN AZITHROMYCIN 500 MG PO DAILY@1700 hydrALAZINE HCL 10 MG IV Q6H PRN MEMANTINE HCL 5 MG PO BID MONTELUKAST SODIUM 10 MG PO BEDTIME BENZONATATE 200 MG PO TID KETOTIFEN FUMARATE 1 DROP EACH EYE Q8HR PANTOPRAZOLE 40 MG PO Q12HR carvediloL 25 MG PO BID MEALS MELATONIN 5 MG PO BEDTIME MULTIVITAMIN WITH FOLIC ACID 1 TAB PO DAILY IPRATROPIUM/ALBUTEROL SULFATE 3 ML NEB RTQ6H WA ASPIRIN 81 MG PO DAILY GALANTAMINE HYDROBROMIDE 8 MG PO 0800,1800 FUROSEMIDE 40 MG IV BID@0700,1500 ATORVASTATIN CALCIUM 80 MG PO BEDTIME LEVOTHYROXINE SODIUM 25 MCG PO DAILY@0600 cefTRIAXone with/in SODIUM CHLORIDE 0.9% 1000 MG IV Q24H ONDANSETRON HCL/PF 4 MG IV Q6H PRN LABS BASIC METABOLIC PANEL (02/14/23 06:32) SODIUM 138 POTASSIUM 3.9 CHLORIDE 106 CARBON DIOXIDE 28 ANION GAP 7.9 GLUCOSE 103H H BLOOD UREA NITROGEN 52H H GLOMERULAR FILTRATION RATE 21 L CREATININE 2.2H H BUN/CREATININE RATIO 23.6 H CALCIUM 8.7 CBC W/AUTO DIFF (02/14/23 06:32) WHITE BLOOD CELL 6.4 RED BLOOD CELL 2.86 L HEMOGLOBIN 8.5L L HEMATOCRIT 27.0L L MEAN CELL VOLUME 94 MEAN CELL HGB 29.7 MEAN CELL HGB CONCENTRATION 31.5 RED CELL DISTRIBUTION WIDTH 17.4 H PLATELET COUNT 254 MEAN PLATELET VOLUME 11.9 NEUTROPHIL % 69.1 IMMATURE GRANULOCYTE % 0.3 LYMPHOCYTE % 15.2 MONOCYTE % 11.2 EOSINOPHIL % 3.9 BASOPHIL % 0.3 NUCLEATED RBC % 0.0 NEUTROPHIL # 4.44 IMMATURE GRANULOCYTE # 0.020 LYMPHOCYTE # 0.98 L MONOCYTE # 0.72 EOSINOPHIL # 0.25 BASOPHIL # 0.02 NUCLEATED RBC # 0.000 COVID ASYMP AG (02/13/23 16:02) COVID 19 Asymptomatic IH AG Negative -- ATTESTATION -- TIME SPENT ON PATIENT CARE: - Direct 40 minutes - > 50% of time spent on Counseling/Care [facility] CARE ACTIVITIES / CARE COORDINATION: - I have reviewed the history and repeated the up elements - I have seen and examined this patient - I have reviewed the progress in the clinical course since the last examination - I have discussed the preet ent's condition with other members of the care team Signed in PatientKeeper by Linda Whitaker MD on at 12:03 Electronically Signed by Linda Whitaker MD on 01/22 11/12 at 1203 ATTENTION *EDITS and/or ADDENDA must be made in Patient Ke eper for this note. * * Edits and ammendments created in [employer] are not visible * * in Patient Keeper or the legal medical record ([facility]). * RPT #: [id number] END OF REPORT 2023-02-14 [facility] 11:22:00-00:00 [facility] ([facility]) Pulmonology Progress Note REPORT #: [id number] REPORT STATUS: Signed DATE: 02/14/23 TIME: 1122 PATIENT: CASEY LYONS UNIT #: [id number] ROOM #: [id number] BED: 1 : 37 AGE: 87 SEX: F ATTEND: Linda Whitaker MD ADM AUTHOR: Alden Rosas MD ATTENTION *EDITS and/or ADDENDA must be made in Patient Ke eper for this note. * * Edits and ammendments created in [employer] are not visible * * in Patient Keeper or the legal medical record ([facility]). * -- ASSESSMENT AND PLAN -- GENERAL ASSESSMENT: [facility] Assessment Acute hypoxic respiratory failure Pleural effusions Acute on chronic HFpEF Possible pneumonia NSTEMI Acute on chronic anemia GI bleed CAD Hypothyroidism HTN CKD Plan: -Chest x-ray reviewed- bilateral lower lobe opac ities with pleural effusions, not much change on comparison to previous chest x-ray 02/10 -Suspect volume overload rather than pneumonia b ased on presentation, also received transfusion -Elevated BNP noted, continue IV Lasix -TTE reviewed, EF 45-50%, Cardiology following - On 2 L nasal cannula O2, wean for sats more th an 92% -CT chest reviewed -moderate bilateral pleural e ffusions with atelectasis -Given ongoing diuresis and persistent symptoms, recommend thoracentesis. Pt in agreement, requested on right side with pleural fluid studies -Will DC empiric antibiotics as unlikely to be p neumonia -Former smoker-continue bronchodilators SCD for DVT prophylaxis Plan of care discussed in de tail with patient and daughter at bedside, answered questions We will follow with you --------- Subjective: Feels tired, did not sleep well On 2 L nasal cannula O2 SOB unchanged HPI: 87-year-old female with past medical history as below admitted from [facility] with symptomatic anemia. Received PRBC, a lso found to have NSTEMI and underwent EGD. had worsening chest x-ray and Pul monary Service consulted. Patient complains of shortne ss of breath with exertion and nonproductive cough, minimal chest discomfort, no fever Past medical history: hypertension, hypothyroidi sm, CHF, PVD, current carotid artery disease, dyslipidemia, CAD, CKD, CVA, dem entia, hearing loss, iron deficiency anemia PSurgHx: bilateral femoral popliteal bypass, hys terectomy FamHx: noncontributory SocHx: former smoker, quit 15 years back Review of systems: 14 point review system negati ve unless listed above Physical Exam General: NAD, thin, frail Eyes: Anicteric sclerae. Mouth: MMM Neck: Supple. CV: Regular rate and rhythm. Normal S1 and S2. Pulm: Good effort, diminished BS Abdomen: Soft, nontender.BS+ Extremities: No lower extremity edema. Skin: Warm, dry. Neuro: Awake and alert, no focal neurological de ficit Psych: normal mood -- OBJECTIVE -- VITALS (02/13 17:22 - 02/14 17:22): Temperature C: 36.4 (36.4 - 37.6) Temperature source: Oral Pulse Rate 57 (51 - 58) Respiratory rate: 16 (16 - 20) Blood pressure: 129/65 (107/51 - 159/71) I/Os (02/13 07:00 - 02/14 07:00): Net 900.00 Intake 900.00 -- DATA -- MEDICATIONS ACETAMINOPHEN 650 MG PO Q4H PRN amLODIPine BESYLATE 5 MG PO DAILY guaiFENesin 600 MG PO Q12H PRN AZITHROMYCIN 500 MG PO DAILY@1700 hydrALAZINE HCL 10 MG IV Q6H PRN MEMANTINE HCL 5 MG PO BID MONTELUKAST SODIUM 10 MG PO BEDTIME BENZONATATE 200 MG PO TID KETOTIFEN FUMARATE 1 DROP EACH EYE Q8HR PANTOPRAZOLE 40 MG PO Q12HR carvediloL 25 MG PO BID MEALS MELATONIN 5 MG PO BEDTIME MULTIVITAMIN WITH FOLIC ACID 1 TAB PO DAILY IPRATROPIUM/ALBUTEROL SULFATE 3 ML NEB RTQ6H WA ASPIRIN 81 MG PO DAILY GALANTAMINE HYDROBROMIDE 8 MG PO 0800,1800 FUROSEMIDE 40 MG IV BID@0700,1500 ATORVASTATIN CALCIUM 80 MG PO BEDTIME LEVOTHYROXINE SODIUM 25 MCG PO DAILY@0600 cefTRIAXone with/in SODIUM CHLORIDE 0.9% 1000 MG IV Q24H ONDANSETRON HCL/PF 4 MG IV Q6H PRN LABS BASIC METABOLIC PANEL (02/14/23 06:32) SODIUM 138 POTASSIUM 3.9 CHLORIDE 106 CARBON DIOXIDE 28 ANION GAP 7.9 GLUCOSE 103H H BLOOD UREA NITROGEN 52H H GLOMERULAR FILTRATION RATE 21 L CREATININE 2.2H H BUN/CREATININE RATIO 23.6 H CALCIUM 8.7 CBC W/AUTO DIFF (02/14/23 06:32) WHITE BLOOD CELL 6.4 RED BLOOD CELL 2.86 L HEMOGLOBIN 8.5L L HEMATOCRIT 27.0L L MEAN CELL VOLUME 94 MEAN CELL HGB 29.7 MEAN CELL HGB CONCENTRATION 31.5 RED CELL DISTRIBUTION WIDTH 17.4 H PLATELET COUNT 254 MEAN PLATELET VOLUME 11.9 NEUTROPHIL % 69.1 IMMATURE GRANULOCYTE % 0.3 LYMPHOCYTE % 15.2 MONOCYTE % 11.2 EOSINOPHIL % 3.9 BASOPHIL % 0.3 NUCLEATED RBC % 0.0 NEUTROPHIL # 4.44 IMMATURE GRANULOCYTE # 0.020 LYMPHOCYTE # 0.98 L MONOCYTE # 0.72 EOSINOPHIL # 0.25 BASOPHIL # 0.02 NUCLEATED RBC # 0.000 Signed in PatientKeeper by Alden Rosas MD o n 02/14/23 at 17:26 at 1726 ATTENTION *EDITS and/or ADDENDA must be made in Patient Ke eper for this note. * * Edits and ammendments created in [facility] are not visible * * in Patient Keeper or the legal medical record ([facility]). * [facility] #: [id number] END OF REPORT 2023-02-14 [facility] 11:17:00-00:00 [facility] ([facility]) Cardiology Progress Notes REPORT #: [id number] REPORT STATUS: Signed DATE: 02/14/23 TIME: 1117 PATIENT: CASEY LYONS UNIT #: [id number] ROOM #: [id number] BED: 1 : 37 AGE: 87 SEX: F ATTEND: Linda Whitaker MD ADM AUTHOR: Ministerio Witt MD ATTENTION *EDITS and/or ADDENDA must be made in Patient Ke eper for this note. * * Edits and ammendments created in [employer] are not visible * * in Patient Keeper or the legal medical record (HPF). * -- ASSESSMENT AND PLAN -- PROBLEMS: 1: SOB (shortness of breath) A/P: sec to pleural effusion and DHF and CKD ON Lasix 40 mg IV BID Plan for thoracentesis today 2: Pleural effusion A/P: plan for thoracentesis Already on lasix 3: Elevated troponin A/P: 2y to severe anemia also has hx of prior CAD and stents probably type II TN poor cath candidate for revascularization due to anemia/gibleed. now on ASA 4: Post-operative state A/P: POST OP EGD tolerated egd without complication 5: Anemia A/P: RECURRENT s/p repeated transfusions per GI doing ok on ASA 6: Hypertension A/P: adjust meds as needed. acceptable control 7: Cerebrovascular accident, old A/P: unclear residual deficits ? multi-infarct dementia. was on eliquis 2.5 mg bid as outpatient. PER son her CVA stopped after being on Eliqios NO DIAGNSOES IF AFIB PER SON not sure if she will tolerate oac given recurren t anemia/gi bleeding issues Should get Loop recorder as out patient if patie nt and family agree. 8: Hyperlipidemia LDL goal <70 A/P: on statin 9: Peripheral vascular disease A/P: s/p bilateral LE bypasses? 10: Chronic kidney disease A/P: as per med team MOnitor renal function. -- SUBJECTIVE -- PATIENT NARRATIVE: Seen in the room Daughter at bedside. She is stil SOB Plan for thoracentesis this afternoon Says she is making more urine. She is still SOB NO fever -REVIEW OF SYSTEMS- COMMENT: general review of systems performed and was otherwise unremarkable except noted above -- OBJECTIVE -- VITALS (02/13 11:17 - 02/14 11:17): Temperature C: 36.4 (36.4 - 37.6) Temperature source: Oral Pulse Rate 55 (51 - 55) Respiratory rate: 16 (16 - 18) Blood pressure: 150/63 (107/51 - 150/66) I/Os (02/13 07:00 - 02/14 07:00): Net 900.00 Intake 900.00 ADDITIONAL V/S: Tele NSR -EXAM- OTHER: Gen: older female. appears weak. appears pale. HEENT: nc/at. pupils equal. NECK: no jvd. no bruits LUNGS: reduced A/E in both bases L > R CARDIAC: regular rate and rhythm. normal s1 and s2. 2/6 systolic murmur ABDOMEN: soft. normal bowel sounds. not tender. EXTREMITIES: no edema. absent pulses.. NEUROLOGY: alert and oriented x 2 -- DATA -- MEDICATIONS ACETAMINOPHEN 650 MG PO Q4H PRN amLODIPine BESYLATE 5 MG PO DAILY guaiFENesin 600 MG PO Q12H PRN AZITHROMYCIN 500 MG PO DAILY@1700 hydrALAZINE HCL 10 MG IV Q6H PRN MEMANTINE HCL 5 MG PO BID MONTELUKAST SODIUM 10 MG PO BEDTIME BENZONATATE 200 MG PO TID KETOTIFEN FUMARATE 1 DROP EACH EYE Q8HR PANTOPRAZOLE 40 MG PO Q12HR carvediloL 25 MG PO BID MEALS MELATONIN 5 MG PO BEDTIME MULTIVITAMIN WITH FOLIC ACID 1 TAB PO DAILY IPRATROPIUM/ALBUTEROL SULFATE 3 ML NEB RTQ6H WA ASPIRIN 81 MG PO DAILY GALANTAMINE HYDROBROMIDE 8 MG PO 0800,1800 FUROSEMIDE 40 MG IV BID@0700,1500 ATORVASTATIN CALCIUM 80 MG PO BEDTIME LEVOTHYROXINE SODIUM 25 MCG PO DAILY@0600 cefTRIAXone with/in SODIUM CHLORIDE 0.9% 1000 MG IV Q24H ONDANSETRON HCL/PF 4 MG IV Q6H PRN LABS BASIC METABOLIC PANEL (02/14/23 06:32) SODIUM 138 POTASSIUM 3.9 CHLORIDE 106 CARBON DIOXIDE 28 ANION GAP 7.9 GLUCOSE 103H H BLOOD UREA NITROGEN 52H H GLOMERULAR FILTRATION RATE 21 L CREATININE 2.2H H BUN/CREATININE RATIO 23.6 H CALCIUM 8.7 CBC W/AUTO DIFF (02/14/23 06:32) WHITE BLOOD CELL 6.4 RED BLOOD CELL 2.86 L HEMOGLOBIN 8.5L L HEMATOCRIT 27.0L L MEAN CELL VOLUME 94 MEAN CELL HGB 29.7 MEAN CELL HGB CONCENTRATION 31.5 RED CELL DISTRIBUTION WIDTH 17.4 H PLATELET COUNT 254 MEAN PLATELET VOLUME 11.9 NEUTROPHIL % 69.1 IMMATURE GRANULOCYTE % 0.3 LYMPHOCYTE % 15.2 MONOCYTE % 11.2 EOSINOPHIL % 3.9 BASOPHIL % 0.3 NUCLEATED RBC % 0.0 NEUTROPHIL # 4.44 IMMATURE GRANULOCYTE # 0.020 LYMPHOCYTE # 0.98 L MONOCYTE # 0.72 EOSINOPHIL # 0.25 BASOPHIL # 0.02 NUCLEATED RBC # 0.000 COVID ASYMP AG (02/13/23 16:02) COVID 19 Asymptomatic IH AG Negative Signed in PatientKeeper by Ministerio Witt MD on 02/14/23 at 11:20 Electronically Signed by Ministerio Witt MD on 0 02/14/23 at 1120 ATTENTION *EDITS and/or ADDENDA must be made in Patient Ke eper for this note. * * Edits and ammendments created in [facility] are not visible * * in Patient Keeper or the legal medical record ([facility]). * [facility] #: [id number] END OF REPORT 2023-02-13 [facility] 18:34:00-00:00 [facility] ([facility]) Gastroenterology Prog. Note REPORT #: [id number] REPORT STATUS: Signed DATE: 02/13/23 TIME: 183 PATIENT: CASEY LYONS UNIT #: [id number] ROOM #: [id number] BED: 1 : 37 AGE: 87 SEX: F ATTEND: Rich Whitaker MD ADM AUTHOR: Bennie Bruno MD ATTENTION *EDITS and/or ADDENDA must be made in Patient Ke eper for this note. * * Edits and ammendments created in [facility] are not visible * * in Patient Keeper or the legal medical record ([facility]). 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 But these were very small. Famil y not interested in her going through a colonoscopy for further evaluation. They understand the risk of missing colon cancer. Ok to use ASA and DAPT. 2: Elevated troponin A/P: Cardiology consulted. 3: CKD (chronic kidney disease) A/P: Nephro on board. 4: Dementia A/P: stable dementia. -- SUBJECTIVE -- CHIEF COMPLAINT: Anemia HPI: I have spoken to the patients RN and heard the p atient issues in the past 24hrs. There have been no changes in GI point of view. No new complains. No Melena or Hematochezia or Hematemesis -- OBJECTIVE -- VITALS (02/12 18:34 - 02/13 18:34): Temperature C: 36.6 (36.5 - 36.9) Temperature source: Oral Pulse Rate 55 (51 - 58) Respiratory rate: 17 (14 - 18) Blood pressure: 124/57 (115/55 - 168/70) I/Os (02/12 07:00 - 02/13 07:00): Net 514.00 Intake 714.00 Output 200 -EXAM- GENERAL: Well developed, in no acute distress. HEAD: Normocephalic, atraumatic. EYES: PERRL, lids normal. NECK: Supple, No masses. CHEST: Grossly normal appearance. LUNGS: Clear bilaterally with normal respiratory effort. HEART: Regular rate and rhythm, normal S1, S2. ABDOMEN: Soft, non-tender, no masses noted. MUSCULOSKELETAL: No deformity. NEUROLOGICAL: No focal deficits. -- DATA -- MEDICATIONS ACETAMINOPHEN 650 MG PO Q4H PRN amLODIPine BESYLATE 5 MG PO DAILY guaiFENesin 600 MG PO Q12H PRN AZITHROMYCIN 500 MG PO DAILY@1700 hydrALAZINE HCL 10 MG IV Q6H PRN MEMANTINE HCL 5 MG PO BID MONTELUKAST SODIUM 10 MG PO BEDTIME BENZONATATE 200 MG PO TID KETOTIFEN FUMARATE 1 DROP EACH EYE Q8HR PANTOPRAZOLE 40 MG PO Q12HR carvediloL 25 MG PO BID MEALS MELATONIN 5 MG PO BEDTIME MULTIVITAMIN WITH FOLIC ACID 1 TAB PO DAILY IPRATROPIUM/ALBUTEROL SULFATE 3 ML NEB RTQ6H WA ASPIRIN 81 MG PO DAILY GALANTAMINE HYDROBROMIDE 8 MG PO 0800,1800 FUROSEMIDE 40 MG IV BID@0700,1500 ATORVASTATIN CALCIUM 80 MG PO BEDTIME LEVOTHYROXINE SODIUM 25 MCG PO DAILY@0600 cefTRIAXone with/in SODIUM CHLORIDE 0.9% 1000 MG IV Q24H ONDANSETRON HCL/PF 4 MG IV Q6H PRN LABS COVID ASYMP AG (02/13/23 16:02) COVID 19 Asymptomatic IH AG Negative Signed in PatientKeeper by Bennie Bruno MD on at 18:35 Electronically Signed by Bennie Bruno MD on 01/22 10/13 at 1835 ATTENTION *EDITS and/or ADDENDA must be made in Patient Ke ep for this note. * * Edits and ammendments created in [employer] are not visible * * in Patient Keeper or the legal medical record (HPF). * RPT #: [id number] END OF REPORT 2023-02-13 [facility] 14:57:00-00:00 [facility] ([facility]) Pulmonology Consultation REPORT #: [id number] REPORT STATUS: Signed DATE: 02/13/23 TIME: 1457 PATIENT: CASEY LYONS UNIT #: [id number] ROOM #: [id number] BED: 1 : 37 AGE: 87 SEX: F ATTEND: Linda Whitaker MD ADM AUTHOR: Alden Rosas MD ATTENTION *EDITS and/or ADDENDA must be made in Patient Ke ep for this note. * * Edits and ammendments created in [employer] are not visible * * in Patient Keeper or the legal medical record ([facility]PF). * -- ASSESSMENT AND PLAN -- GENERAL ASSESSMENT: [facility] Assessment Acute hypoxic respiratory failure Pleural effusions Acute on chronic HFpEF Possible pneumonia NSTEMI Acute on chronic anemia GI bleed CAD Hypothyroidism HTN CKD Plan: -Chest x-ray reviewed- bilateral lower lobe opac ities with pleural effusions, not much change on comparison to previous chest x-ray 02/10 -Suspect volume overload rather than pneumonia b ased on presentation, also received transfusion -Elevated BNP noted, continue IV Lasix -TTE reviewed, EF 45-50%, Cardiology following - On 2 L nasal cannula O2, wean for sats more th an 92% -CT chest for further evaluation -Will consider thoracentesis based on results, p atient also remains hesitant and is on low-flow O2 -Empiric antibiotics for COPD coverage -Former smoker-continue bronchodilators SCD for DVT prophylaxis Plan of care discussed in de tail with patient and daughter at bedside, answered questions Thank you for the consult will follow with you --------- HPI: a 7-year-old female with past medical history a s below admitted from [facility] with symptomatic anemia. Received PRBC, a lso found to have NSTEMI and underwent EGD. had worsening chest x-ray and Pul monary Service consulted. Patient complains of shortness of breath with e xertion and nonproductive cough, minimal chest discomfort, no fever Past medical history: hypertension, hypothyroidi sm, CHF, PVD, current carotid artery disease, dyslipidemia, CAD, CKD, CVA, dem entia, hearing loss, iron deficiency anemia PSurgHx: bilateral femoral popliteal bypass, hys terectomy FamHx: noncontributory SocHx: former smoker, quit 15 years but Review of systems: 14 point review system negati ve unless listed above Physical Exam General: NAD, thin, frail Eyes: Anicteric sclerae. Mouth: MMM Neck: Supple. CV: Regular rate and rhythm. Normal S1 and S2. Pulm: Good effort, diminished BS Abdomen: Soft, nontender.BS+ Extremities: No lower extremity edema. Skin: Warm, dry. Neuro: Awake and alert, no focal neurological de ficit Psych: normal mood -- HISTORY -- CONSULT REQUESTED BY: Linda Whitaker MD DATE/TIME AT BEDSIDE: 2023-02-13 REASON FOR CONSULT: pleural effusion -- OBJECTIVE -- VITALS (02/12 14:58 - 02/13 14:58): Temperature C: 36.6 (36.5 - 36.9) Temperature source: Oral Pulse Rate 55 (51 - 58) Respiratory rate: 17 (14 - 18) Blood pressure: 124/57 (115/54 - 168/70) I/Os (02/12 07:00 - 02/13 07:00): Net 514.00 Intake 714.00 Output 200 -- DATA -- MEDICATIONS ACETAMINOPHEN 650 MG PO Q4H PRN amLODIPine BESYLATE 5 MG PO DAILY guaiFENesin 600 MG PO Q12H PRN AZITHROMYCIN 500 MG PO DAILY@1700 hydrALAZINE HCL 10 MG IV Q6H PRN MEMANTINE HCL 5 MG PO BID MONTELUKAST SODIUM 10 MG PO BEDTIME BENZONATATE 200 MG PO TID KETOTIFEN FUMARATE 1 DROP EACH EYE Q8HR PANTOPRAZOLE 40 MG PO Q12HR carvediloL 25 MG PO BID MEALS MELATONIN 5 MG PO BEDTIME MULTIVITAMIN WITH FOLIC ACID 1 TAB PO DAILY IPRATROPIUM/ALBUTEROL SULFATE 3 ML NEB RTQ6H WA ASPIRIN 81 MG PO DAILY GALANTAMINE HYDROBROMIDE 8 MG PO 0800,1800 FUROSEMIDE 40 MG IV BID@0700,1500 ATORVASTATIN CALCIUM 80 MG PO BEDTIME LEVOTHYROXINE SODIUM 25 MCG PO DAILY@0600 cefTRIAXone with/in SODIUM CHLORIDE 0.9% 1000 MG IV Q24H ONDANSETRON HCL/PF 4 MG IV Q6H PRN Signed in PatientKeeper by Alden Rosas MD n 02/13/23 at 15:09 at 1509 ATTENTION *EDITS and/or ADDENDA must be made in Patient Ke eper for this note. * * Edits and ammendments created in [facility] are not visible * * in Patient Keeper or the legal medical record (HPF). * RPT #: [id number] END OF REPORT 2023-02-13 [facility] 12:25:00-00:00 [facility] ([facility]) Hospitalist Progress Note REPORT #: [id number] REPORT STATUS: Signed DATE: 02/13/23 TIME: 1224 PATIENT: CASEY LYONS UNIT #: [id number] ROOM #: [id number] BED: 1 : 37 AGE: 87 SEX: F ATTEND: Linda Whitaker MD ADM AUTHOR: Linda Whitaker MD ATTENTION *EDITS and/or ADDENDA must be made in Patient Ke eper for this note. * * Edits and ammendments created in [employer] are not visible * * in Patient Keeper or the legal medical record ([facility]). * -- ASSESSMENT AND PLAN -- GENERAL ASSESSMENT: Assessment and plan: 1--community acquired pneumonia: 2--acute of chronic CHF: 3--pleural effusion: ECHO Ejection Fraction = 45-50%. BNP reveiwed -IV lasix -Rocephin nd azithromycin -DuoNeb's as needed for sob -O2 supplementation as needed to keep O2 saturat ions>. 92 % -Cardiology on board follow recs -Pulmonary consulted, Follow recs 4--NSTEMI: Complains of off-and-on chest pain and shortness of breath---denies any chest pain Elevated troponin ECHO: Ejection Fraction = 45-50% -Serial troponin monitoring -Continuous telemetry monitoring -Hold aspirin given concerns of GI bleed -Sublingual nitroglycerin as needed for chest pa in -Loop recorder as out patient if patient and fam gisell agree. -Cardiology on board, follow recommendations Moderate to high perioperative cardiovascular risk, but not prohibitive---cardio recs appreciated Extensive discussion was held with the cindy t, son at bedside and cardiology---wants medical management,/hold off on aggressive intervention 5--acute on chronic anemia--iron deficiency: 6--possible GI bleed: S/p PRBC transfusion S/P EGD showed small AVMs in the body of the sto mach and treated by APC. But these were very small. Famil y not interested in her going through a colonoscopy for further evaluation. -IV iron -Trend H H -Transfuse PRBC if Hgb< 7 -Monitor for signs and symptoms of bleeding -Hold aspirin and Eliquis -GI on board, follow recommendations 7--carotid artery disease: 8--coronary artery disease: 9--peripheral artery disease: -Continue home medications -Hold aspirin and Eliquis -Cardiology consulted follow recommendations 10--hypothyroidism: TSH 3.54 -Continue home dose Synthroid 11--hypertension: -Monitor vitals -Continue home medications and adjust as needed 12--dyslipidemia: -Continue statin 13--CKD--unknown baseline creatinine: -Avoid nephrotoxic medication -Trend BMP 14--CVA, dementia: -Continue home medication -Supportive care DVT prophylaxis SCDs GI prophylaxis PPI CODE STATUS full code Disposition pending clinical course and consulti ng services clearance Time Spent 40 minutes -- SUBJECTIVE -- PATIENT NARRATIVE: Patient was seen and evaluated by me in the morning, sitting in the bed on 2 L nasal cannula. Breathing improved, continues to be on Lasix, pulmonary consulted pending recommendations regarding pleu ral effusions. -- OBJECTIVE -- VITALS (02/12 12:25 - 02/13 12:25): Temperature C: 36.6 (36.5 - 36.9) Temperature source: Oral Pulse Rate 55 (51 - 58) Respiratory rate: 17 (14 - 18) Blood pressure: 124/57 (115/54 - 168/70) I/Os (02/12 07:00 - 02/13 07:00): Net 514.00 Intake 714.00 Output 200 -EXAM- GENERAL: Well developed, in no acute distress. HEAD: Normocephalic, atraumatic. EYES: PERRL, lids normal. NECK: Supple, No masses. CHEST: Grossly normal appearance. LUNGS: Decreased bilateral bases, improving. HEART: Regular rate and rhythm, normal S1, S2. ABDOMEN: Soft, non-tender, no masses noted. MUSCULOSKELETAL: No deformity. NEUROLOGICAL: No focal deficits. -- DATA -- MEDICATIONS ACETAMINOPHEN 650 MG PO Q4H PRN amLODIPine BESYLATE 5 MG PO DAILY guaiFENesin 600 MG PO Q12H PRN AZITHROMYCIN 500 MG PO DAILY@1700 hydrALAZINE HCL 10 MG IV Q6H PRN MEMANTINE HCL 5 MG PO BID MONTELUKAST SODIUM 10 MG PO BEDTIME BENZONATATE 200 MG PO TID KETOTIFEN FUMARATE 1 DROP EACH EYE Q8HR PANTOPRAZOLE 40 MG PO Q12HR carvediloL 25 MG PO BID MEALS MELATONIN 5 MG PO BEDTIME MULTIVITAMIN WITH FOLIC ACID 1 TAB PO DAILY IPRATROPIUM/ALBUTEROL SULFATE 3 ML NEB RTQ6H MI GALANTAMINE HYDROBROMIDE 8 MG PO 0800,1800 FUROSEMIDE 40 MG IV BID@0700,1500 ATORVASTATIN CALCIUM 80 MG PO BEDTIME LEVOTHYROXINE SODIUM 25 MCG PO DAILY@0600 cefTRIAXone with/in SODIUM CHLORIDE 0.9% 1000 MG IV Q24H ONDANSETRON HCL/PF 4 MG IV Q6H PRN -- ATTESTATION -- TIME SPENT ON PATIENT CARE: - Direct 40 minutes - > 50% of time spent on Counseling/Care Coordi nation CARE ACTIVITIES / CARE COORDINATION: - I have reviewed the history and repeated the up elements - I have seen and examined this patient - I have reviewed the progress in the clinical course since the last examination - I have discussed the preet ent's condition with other members of the care team Signed in PatientKeeper by Linda Whitaker MD on at 12:30 Electronically Signed by Linda Whitaker MD on 01/22 10/13 at 1230 ATTENTION *EDITS and/or ADDENDA must be made in Patient Ke eper for this note. * * Edits and ammendments created in [facility] are not visible * * in Patient Keeper or the legal medical record ([facility]). * RPT #: [id number] END OF REPORT 2023-02-13 [facility] 08:37:00-00:00 [facility] ([facility]) Cardiology Progress Notes REPORT #: [id number] REPORT STATUS: Signed DATE: 02/13/23 TIME: 836 PATIENT: CASEY LYONS UNIT #: [id number] ROOM #: [id number] BED: 1 : [birth year] AGE: 87 SEX: F ATTEND: Linda Whitaker MD ADM AUTHOR: Darwin Deal MD ATTENTION *EDITS and/or ADDENDA must be made in Patient Ke eper for this note. * * Edits and ammendments created in [employer] are not visible * * in Patient Keeper or the legal medical record ([facility]). * -- ASSESSMENT AND PLAN -- PROBLEMS: 1: SOB (shortness of breath) A/P: BREATHING STABLE PLURAL EFFUSIONS CXR unchanged ON Lasix 40 mg IV BID Consider thoracentesis 2: NSTEMI (non-ST elevated myocardial infarction ) A/P: NO CHEST PAIN 2y to severe anemia also has hx of prior CAD and stents probably type II NSTEMI poor cath candidate for revascularization due to anemia/gibleed. resume asa 81 mg daily once okay with gi 3: Post-operative state A/P: POST OP EGD tolerated egd without complication 4: Anemia A/P: RECURRENT s/p repeated transfusions per GI Currenlty not ON ASA 5: Hypertension A/P: STABLE ON MEDS 6: Cerebrovascular accident, old A/P: unclear residual deficits ? multi-infarct dementia. was on eliquis 2.5 mg bid as outpatient. PER son her CVA stopped after being on Eliqios NO DIAGNSOES IF AFIB PER SON IF GI clears then restart Eliquis 2.5 BID otherw ise do ASA 81 mg PO QD Should get Loop recorder as out patient if patie nt and family agree. 7: Hyperlipidemia LDL goal <70 A/P: on statin 8: Peripheral vascular disease A/P: s/p bilateral LE bypasses? 9: Chronic kidney disease A/P: as per med team MOnitor renal function. ADDITIONAL COMMENTS: INCREASE REHAB PLACEMENT -- SUBJECTIVE -- PATIENT NARRATIVE: LETHARGIC , WEAK SLEEPY NO CHEST PAIN -REVIEW OF SYSTEMS- COMMENT: general review of systems performed and was otherwise unremarkable except noted above -- OBJECTIVE -- VITALS (02/12 08:37 - 02/13 08:37): Temperature C: 36.6 (36.5 - 36.9) Temperature source: Oral Pulse Rate 55 (51 - 177) Respiratory rate: 16 (14 - 18) Blood pressure: 155/65 (115/54 - 168/70) I/Os (02/12 07:00 - 02/13 07:00): Net 514.00 Intake 714.00 Output 200 -EXAM- OTHER: Gen: older female. appears weak. appears pale. HEENT: nc/at. pupils equal. NECK: no jvd. no bruits LUNGS: reduced A/E in both bases L > R CARDIAC: regular rate and rhythm. normal s1 and s2. 2/6 systolic murmur ABDOMEN: soft. normal bowel sounds. not tender. EXTREMITIES: no edema. absent pulses.. NEUROLOGY: alert and oriented x 2 -- DATA -- MEDICATIONS ACETAMINOPHEN 650 MG PO Q4H PRN amLODIPine BESYLATE 5 MG PO DAILY guaiFENesin 600 MG PO Q12H PRN AZITHROMYCIN 500 MG PO DAILY@1700 hydrALAZINE HCL 10 MG IV Q6H PRN MEMANTINE HCL 5 MG PO BID MONTELUKAST SODIUM 10 MG PO BEDTIME BENZONATATE 200 MG PO TID KETOTIFEN FUMARATE 1 DROP EACH EYE Q8HR PANTOPRAZOLE 40 MG PO Q12HR carvediloL 25 MG PO BID MEALS MELATONIN 5 MG PO BEDTIME MULTIVITAMIN WITH FOLIC ACID 1 TAB PO DAILY IPRATROPIUM/ALBUTEROL SULFATE 3 ML NEB RTQ6H WA GALANTAMINE HYDROBROMIDE 8 MG PO 0800,1800 FUROSEMIDE 40 MG IV BID@0700,1500 ATORVASTATIN CALCIUM 80 MG PO BEDTIME LEVOTHYROXINE SODIUM 25 MCG PO DAILY@0600 cefTRIAXone with/in SODIUM CHLORIDE 0.9% 1000 MG IV Q24H ONDANSETRON HCL/PF 4 MG IV Q6H PRN LABS CBC W/AUTO DIFF (02/12/23 10:33) WHITE BLOOD CELL 7.9 RED BLOOD CELL 2.91 L HEMOGLOBIN 8.8L L HEMATOCRIT 27.6L L MEAN CELL VOLUME 95 MEAN CELL HGB 30.2 MEAN CELL HGB CONCENTRATION 31.9 RED CELL DISTRIBUTION WIDTH 17.9 H PLATELET COUNT 254 MEAN PLATELET VOLUME 11.9 NEUTROPHIL % 79.9 H IMMATURE GRANULOCYTE % 0.4 LYMPHOCYTE % 7.4 L MONOCYTE % 8.7 EOSINOPHIL % 3.3 BASOPHIL % 0.3 NUCLEATED RBC % 0.0 NEUTROPHIL # 6.29 IMMATURE GRANULOCYTE # 0.030 LYMPHOCYTE # 0.58 L MONOCYTE # 0.68 EOSINOPHIL # 0.26 BASOPHIL # 0.02 NUCLEATED RBC # 0.000 Signed in PatientKeeper by Darwin Deal MD on 02/13/23 at 08:39 Electronically Signed by Darwin Deal MD o n 02/13/23 at 0839 ATTENTION *EDITS and/or ADDENDA must be made in Patient Ke eper for this note. * * Edits and ammendments created in [facility] are not visible * * in Patient Keeper or the legal medical record ([facility]). * [facility] #: [id number] END OF REPORT 2023-02-12 [facility] 17:56:00-00:00 [facility] ([facility]) Gastroenterology Prog. Note REPORT #: [id number] REPORT STATUS: Signed DATE: 02/12/23 TIME: 1755 PATIENT: CASEY LYONS UNIT #: [id number] ROOM #: [id number] BED: 1 : 37 AGE: 87 SEX: F ATTEND: Linda Whitaker MD ADM AUTHOR: Bennie Bruno MD ATTENTION *EDITS and/or ADDENDA must be made in Patient Ke eper for this note. * * Edits and ammendments created in [employer] are not visible * * in Patient Keeper or the legal medical record ([facility]). 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 But these were very small. Famil y not interested in her going through a colonoscopy for further evaluation. They understand the risk of missing colon cancer. 2: Elevated troponin A/P: Cardiology consulted. 3: CKD (chronic kidney disease) A/P: Nephro on board. 4: Dementia A/P: stable dementia. -- SUBJECTIVE -- CHIEF COMPLAINT: Anemia HPI: I have spoken to the patients RN and heard the p atient issues in the past 24hrs. There have been no changes in GI point of view. No new complains. No Melena or Hematochezia or Hematemesis -- OBJECTIVE -- VITALS (02/11 17:56 - 02/12 17:56): Temperature C: 36.6 (36.4 - 36.7) Temperature source: Oral Pulse Rate 54 (54 - 177) Respiratory rate: 18 (16 - 18) Blood pressure: 132/54 (116/50 - 168/68) I/Os (02/11 07:00 - 02/12 07:00): Net 480 Intake 480 -EXAM- GENERAL: Well developed, in no acute distress. HEAD: Normocephalic, atraumatic. EYES: PERRL, lids normal. NECK: Supple, No masses. CHEST: Grossly normal appearance. LUNGS: Clear bilaterally with normal respiratory effort. HEART: Regular rate and rhythm, normal S1, S2. ABDOMEN: Soft, non-tender, no masses noted. MUSCULOSKELETAL: No deformity. NEUROLOGICAL: No focal deficits. -- DATA -- MEDICATIONS ACETAMINOPHEN 650 MG PO Q4H PRN amLODIPine BESYLATE 5 MG PO DAILY guaiFENesin 600 MG PO Q12H PRN AZITHROMYCIN 500 MG PO DAILY@1700 hydrALAZINE HCL 10 MG IV Q6H PRN MEMANTINE HCL 5 MG PO BID MONTELUKAST SODIUM 10 MG PO BEDTIME BENZONATATE 200 MG PO TID KETOTIFEN FUMARATE 1 DROP EACH EYE Q8HR PANTOPRAZOLE 40 MG PO Q12HR carvediloL 25 MG PO BID MEALS MELATONIN 5 MG PO BEDTIME MULTIVITAMIN WITH FOLIC ACID 1 TAB PO DAILY IPRATROPIUM/ALBUTEROL SULFATE 3 ML NEB RTQ6H WA GALANTAMINE HYDROBROMIDE 8 MG PO 0800,1800 FUROSEMIDE 40 MG IV BID@0700,1500 ATORVASTATIN CALCIUM 80 MG PO BEDTIME LEVOTHYROXINE SODIUM 25 MCG PO DAILY@0600 cefTRIAXone with/in SODIUM CHLORIDE 0.9% 1000 MG IV Q24H ONDANSETRON HCL/PF 4 MG IV Q6H PRN LABS CBC W/AUTO DIFF (02/12/23 10:33) WHITE BLOOD CELL 7.9 RED BLOOD CELL 2.91 L HEMOGLOBIN 8.8L L HEMATOCRIT 27.6L L MEAN CELL VOLUME 95 MEAN CELL HGB 30.2 MEAN CELL HGB CONCENTRATION 31.9 RED CELL DISTRIBUTION WIDTH 17.9 H PLATELET COUNT 254 MEAN PLATELET VOLUME 11.9 NEUTROPHIL % 79.9 H IMMATURE GRANULOCYTE % 0.4 LYMPHOCYTE % 7.4 L MONOCYTE % 8.7 EOSINOPHIL % 3.3 BASOPHIL % 0.3 NUCLEATED RBC % 0.0 NEUTROPHIL # 6.29 IMMATURE GRANULOCYTE # 0.030 LYMPHOCYTE # 0.58 L MONOCYTE # 0.68 EOSINOPHIL # 0.26 BASOPHIL # 0.02 NUCLEATED RBC # 0.000 COMPREHENSIVE METABOLIC PANEL (02/12/23 03:52) SODIUM 138 POTASSIUM 3.9 CHLORIDE 106 CARBON DIOXIDE 24 ANION GAP 11.9 GLUCOSE 96 BLOOD UREA NITROGEN 47H H GLOMERULAR FILTRATION RATE 23 L CREATININE 2.1H H BUN/CREATININE RATIO 22.4 H TOTAL PROTEIN 5.7 L ALBUMIN 2.4 L CALCIUM 9.2 BILIRUBIN TOTAL 0.4 SGOT/AST 25 SGPT/ALT 29 ALKALINE PHOSPHATASE 91 Signed in PatientKeeper by Bennie Bruno MD on at 17:57 Electronically Signed by Bennie Bruno MD on 01/22 09/12 at 1757 ATTENTION *EDITS and/or ADDENDA must be made in Patient [facility] for this note. * * Edits and ammendments created in [employer] are not visible * * in Patient Keeper or the legal medical record ([facility]). * RPT #: [id number] END OF REPORT 2023-02-12 [facility] 16:03:00-00:00 [facility] ([facility]) Cardiology Progress Notes REPORT #: [id number] REPORT STATUS: Signed DATE: 02/12/23 TIME: 1603 PATIENT: CASEY LYONS UNIT #: [id number] ROOM #: [id number] BED: 1 : 37 AGE: 87 SEX: F ATTEND: Linda Whitaker MD ADM AUTHOR: Ministerio Witt MD ATTENTION *EDITS and/or ADDENDA must be made in Patient [facility] for this note. * * Edits and ammendments created in [employer] are not visible * * in Patient Keeper or the legal medical record ([facility]). * -- ASSESSMENT AND PLAN -- PROBLEMS: 1: SOB (shortness of breath) A/P: CXR unchanged ON Lasix 40 mg IV BID Consider thoracentesis 2: Post-operative state A/P: POST OP EGD tolerated egd without complication 3: NSTEMI (non-ST elevated myocardial infarction ) A/P: 2y to severe anemia also has hx of prior CAD and stents probably type II NSTEMI poor cath candidate for revascularization due to anemia/gibleed. resume asa 81 mg daily once okay with gi 4: Pleural effusion A/P: May need thoracentesis [place] to med team Already on lasix 5: Anemia A/P: RECURRENT s/p repeated transfusions per GI Currenlty not ON ASA 6: Hypertension A/P: adjust meds as needed. acceptable control 7: Cerebrovascular accident, old A/P: unclear residual deficits ? multi-infarct dementia. was on eliquis 2.5 mg bid as outpatient. PER son her CVA stopped after being on Eliqios NO DIAGNSOES IF AFIB PER SON not sure if she will tolerate oac given recurren t anemia/gi bleeding issues IF GI clears then restart Eliquis 2.5 BID otherw ise do ASA 81 mg PO QD Should get Loop recorder as out patient if patie nt and family agree. 8: Hyperlipidemia LDL goal <70 A/P: on statin 9: Peripheral vascular disease A/P: s/p bilateral LE bypasses? 10: Chronic kidney disease A/P: as per med team MOnitor renal function. -- SUBJECTIVE -- PATIENT NARRATIVE: Seen in the room Son at bedside Says she is making more urine. She is still SOB NO fever -REVIEW OF SYSTEMS- COMMENT: general review of systems performed and was otherwise unremarkable except noted above -- OBJECTIVE -- VITALS (02/11 16:03 - 02/12 16:03): Temperature C: 36.7 (36.4 - 36.7) Temperature source: Oral Pulse Rate 58 (54 - 177) Respiratory rate: 18 (16 - 18) Blood pressure: 117/57 (116/50 - 168/68) I/Os (02/11 07:00 - 02/12 07:00): Net 480 Intake 480 ADDITIONAL V/S: Tele NSR -EXAM- OTHER: Gen: older female. appears weak. appears pale. HEENT: nc/at. pupils equal. NECK: no jvd. no bruits LUNGS: reduced A/E in both bases L > R CARDIAC: regular rate and rhythm. normal s1 an d s2. 2/6 systolic murmur ABDOMEN: soft. normal bowel sounds. not tender. EXTREMITIES: no edema. absent pulses.. NEUROLOGY: alert and oriented x 2 -- DATA -- MEDICATIONS ACETAMINOPHEN 650 MG PO Q4H PRN amLODIPine BESYLATE 5 MG PO DAILY guaiFENesin 600 MG PO Q12H PRN AZITHROMYCIN 500 MG PO DAILY@1700 hydrALAZINE HCL 10 MG IV Q6H PRN MEMANTINE HCL 5 MG PO BID MONTELUKAST SODIUM 10 MG PO BEDTIME BENZONATATE 200 MG PO TID KETOTIFEN FUMARATE 1 DROP EACH EYE Q8HR PANTOPRAZOLE 40 MG PO Q12HR carvediloL 25 MG PO BID MEALS MELATONIN 5 MG PO BEDTIME MULTIVITAMIN WITH FOLIC ACID 1 TAB PO DAILY IPRATROPIUM/ALBUTEROL SULFATE 3 ML NEB RTQ6H WA GALANTAMINE HYDROBROMIDE 8 MG PO 0800,1800 FUROSEMIDE 40 MG IV BID@0700,1500 ATORVASTATIN CALCIUM 80 MG PO BEDTIME LEVOTHYROXINE SODIUM 25 MCG PO DAILY@0600 cefTRIAXone with/in SODIUM CHLORIDE 0.9% 1000 MG IV Q24H ONDANSETRON HCL/PF 4 MG IV Q6H PRN LABS CBC W/AUTO DIFF (02/12/23 10:33) WHITE BLOOD CELL 7.9 RED BLOOD CELL 2.91 L HEMOGLOBIN 8.8L L HEMATOCRIT 27.6L L MEAN CELL VOLUME 95 MEAN CELL HGB 30.2 MEAN CELL HGB CONCENTRATION 31.9 RED CELL DISTRIBUTION WIDTH 17.9 H PLATELET COUNT 254 MEAN PLATELET VOLUME 11.9 NEUTROPHIL % 79.9 H IMMATURE GRANULOCYTE % 0.4 LYMPHOCYTE % 7.4 L MONOCYTE % 8.7 EOSINOPHIL % 3.3 BASOPHIL % 0.3 NUCLEATED RBC % 0.0 NEUTROPHIL # 6.29 IMMATURE GRANULOCYTE # 0.030 LYMPHOCYTE # 0.58 L MONOCYTE # 0.68 EOSINOPHIL # 0.26 BASOPHIL # 0.02 NUCLEATED RBC # 0.000 COMPREHENSIVE METABOLIC PANEL (02/12/23 03:52) SODIUM 138 POTASSIUM 3.9 CHLORIDE 106 CARBON DIOXIDE 24 ANION GAP 11.9 GLUCOSE 96 BLOOD UREA NITROGEN 47H H GLOMERULAR FILTRATION RATE 23 L CREATININE 2.1H H BUN/CREATININE RATIO 22.4 H TOTAL PROTEIN 5.7 L ALBUMIN 2.4 L CALCIUM 9.2 BILIRUBIN TOTAL 0.4 SGOT/AST 25 SGPT/ALT 29 ALKALINE PHOSPHATASE 91 Signed in PatientKeeper by Ministerio Witt MD on 02/12/23 at 16:08 Electronically Signed by Ministerio Witt MD on 0 02/12/23 at 1608 ATTENTION *EDITS and/or ADDENDA must be made in Patient Ke eper for this note. * * Edits and ammendments created in [facility] are not visible * * in Patient Keeper or the legal medical record ([facility]). * RPT #: [id number] END OF REPORT 2023-02-12 [facility] 14:04:00-00:00 [facility] ([facility]) Hospitalist Progress Note REPORT #: [id number] REPORT STATUS: Signed DATE: 02/12/23 TIME: 1404 PATIENT: CASEY LYONS UNIT #: [id number] ROOM #: [id number] BED: 1 : 37 AGE: 87 SEX: F ATTEND: Linda Whitaker MD ADM AUTHOR: Tahir Ying MD ATTENTION *EDITS and/or ADDENDA must be made in Patient Ke eper for this note. * * Edits and ammendments created in [employer] are not visible * * in Patient Keeper or the legal medical record ([facility]). * -- ASSESSMENT AND PLAN -- GENERAL ASSESSMENT: Assessment and plan: 1--NSTEMI: Complains of off-and-on chest pain and shortness of breath---denies any chest pain Elevated troponin ECHO: Ejection Fraction = 45-50% -Serial troponin monitoring -Continuous telemetry monitoring -Hold aspirin given concerns of GI bleed -Sublingual nitroglycerin as needed for chest pa in -Cardiology consulted follow recommendations Moderate to high perioperative cardiovascular risk, but not prohibitive---cardio recs appreciated Extensive discussion was held with the cindy rodríguez, son at bedside and cardiology---wants medical management,/hold off on aggressive intervention- discussed with daughter this morning 2--acute on chronic anemia--iron deficiency: 3--possible GI bleed: S/p PRBC transfusion S/P EGD -IV iron -Trend H H -Transfuse PRBC if Hgb< 7 -Monitor for signs and symptoms of bleeding -Hold aspirin and Eliquis -GI on board, follow recommendations 4--community acquired pneumonia: 5--acute of chronic CHF: -ECHO shows EF 45-50% with moderate posterior wa ll hypokinesis, moderate calcification, mild MR -Check BNP -Lasix 40 IV BID started; consider thoracentesis if effusion not improved -Rocephin and azithromycin -DuoNeb's as needed for sob -O2 supplementation as needed to keep O2 saturat ions>. 92 % -Cardiology on board follow recs 6--carotid artery disease: 7--coronary artery disease: 8--peripheral artery disease: -Continue home medications -Hold aspirin and Eliquis -Cardiology consulted follow recommendations- lo op recorder outpatient if pt and family agrees 9--hypothyroidism: TSH 3.54 -Continue home dose Synthroid 10--hypertension: -Monitor vitals -Continue home medications and adjust as needed 11--dyslipidemia: -Continue statin 12--CKD--unknown baseline creatinine: -Avoid nephrotoxic medication -Trend BMP 12--CVA, dementia: -Continue home medication -Supportive care 13--Acute hypoxic respiratory failure - on NC, does not use home oxygen, wean as emir ated - ST eval ordered - Tessalon TID and Guaifenesin - Aspiration precautions - added Duonebs Q6H - consulted Pulmonology- follows up outpatient f or Emphysema/COPD DVT prophylaxis SCDs GI prophylaxis PPI CODE STATUS full code Disposition pending clinical course and consulti ng services clearance. Anticipate discharge to SNF- to discuss optio ns Time Spent 40 minutes -- SUBJECTIVE -- PATIENT NARRATIVE: Patient seen and examined this AM, she is sittin g comfortably in the bed and saturating well on NC. She is using some accesso ry muscles and appears SOB- cough is somewhat improved. No other acute event s noted. -REVIEW OF SYSTEMS- COMMENT: general review of systems performed and was otherwise unremarkable except noted above -- OBJECTIVE -- VITALS (02/11 14:04 - 02/12 14:04): Temperature C: 36.7 (36.4 - 36.7) Temperature source: Oral Pulse Rate 58 (54 - 177) Respiratory rate: 18 (16 - 18) Blood pressure: 117/57 (116/50 - 168/68) I/Os (02/11 07:00 - 02/12 07:00): Net 480 Intake 480 -EXAM- GENERAL: Well developed, in no acute distress. HEAD: Normocephalic, atraumatic. EYES: PERRL, lids normal. NOSE: No deformity, no discharge, no inflammatio n, no lesions. MOUTH: Oropharynx without deformities or lesions , normal mucosa.. NECK: Supple, No masses. CHEST: Grossly normal appearance. LUNGS: Clear bilaterally with normal respiratory effort. HEART: Regular rate and rhythm, normal S1, S2. ABDOMEN: Soft, non-tender, no masses noted. MUSCULOSKELETAL: No deformity. EXTREMITIES: No clubbing, no cyanosis, no edema. NEUROLOGICAL: No focal deficits. SKIN: Intact without significant lesions, or ho hes. PSYCHIATRIC: Alert and oriented to time, person, place. Normal mood and affect, intact judgment and insight. -- DATA -- MEDICATIONS ACETAMINOPHEN 650 MG PO Q4H PRN amLODIPine BESYLATE 5 MG PO DAILY guaiFENesin 600 MG PO Q12H PRN AZITHROMYCIN 500 MG PO DAILY@1700 hydrALAZINE HCL 10 MG IV Q6H PRN MEMANTINE HCL 5 MG PO BID MONTELUKAST SODIUM 10 MG PO BEDTIME BENZONATATE 200 MG PO TID KETOTIFEN FUMARATE 1 DROP EACH EYE Q8HR PANTOPRAZOLE 40 MG PO Q12HR carvediloL 25 MG PO BID MEALS MELATONIN 5 MG PO BEDTIME MULTIVITAMIN WITH FOLIC ACID 1 TAB PO DAILY GALANTAMINE HYDROBROMIDE 8 MG PO 0800,1800 FUROSEMIDE 40 MG IV BID@0700,1500 ATORVASTATIN CALCIUM 80 MG PO BEDTIME LEVOTHYROXINE SODIUM 25 MCG PO DAILY@0600 cefTRIAXone with/in SODIUM CHLORIDE 0.9% 1000 MG IV Q24H ONDANSETRON HCL/PF 4 MG IV Q6H PRN LABS CBC W/AUTO DIFF (02/12/23 10:33) WHITE BLOOD CELL 7.9 RED BLOOD CELL 2.91 L HEMOGLOBIN 8.8L L HEMATOCRIT 27.6L L MEAN CELL VOLUME 95 MEAN CELL HGB 30.2 MEAN CELL HGB CONCENTRATION 31.9 RED CELL DISTRIBUTION WIDTH 17.9 H PLATELET COUNT 254 MEAN PLATELET VOLUME 11.9 NEUTROPHIL % 79.9 H IMMATURE GRANULOCYTE % 0.4 LYMPHOCYTE % 7.4 L MONOCYTE % 8.7 EOSINOPHIL % 3.3 BASOPHIL % 0.3 NUCLEATED RBC % 0.0 NEUTROPHIL # 6.29 IMMATURE GRANULOCYTE # 0.030 LYMPHOCYTE # 0.58 L MONOCYTE # 0.68 EOSINOPHIL # 0.26 BASOPHIL # 0.02 NUCLEATED RBC # 0.000 COMPREHENSIVE METABOLIC PANEL (02/12/23 03:52) SODIUM 138 POTASSIUM 3.9 CHLORIDE 106 CARBON DIOXIDE 24 ANION GAP 11.9 GLUCOSE 96 BLOOD UREA NITROGEN 47H H GLOMERULAR FILTRATION RATE 23 L CREATININE 2.1H H BUN/CREATININE RATIO 22.4 H TOTAL PROTEIN 5.7 L ALBUMIN 2.4 L CALCIUM 9.2 BILIRUBIN TOTAL 0.4 SGOT/AST 25 SGPT/ALT 29 ALKALINE PHOSPHATASE 91 -- QUALITY -- -MEDICATIONS- - I attest that the foregoing medication list i n the medical record is true, accurate, and complete to the best of my knowled ge. -HEART FAILURE: DC ON BB,ACEI/ARB- LVEF: >40% -- ATTESTATION -- TIME SPENT ON PATIENT CARE: - Direct 40 minutes - > 50% of time spent on Counseling/Care Coordi nation CARE ACTIVITIES / CARE COORDINATION: - I have reviewed the history and repeated the up elements - I have seen and examined this patient - I have reviewed the progress in the clinical course since the last examination - I have discussed the preet ent's condition with other members of the care team Signed in PatientKeeper by Tahir Ying MD on 02/12/23 at 14:15 at 1415 ATTENTION *EDITS and/or ADDENDA must be made in Patient Ke eper for this note. * * Edits and ammendments created in [employer] are not visible * * in Patient Keeper or the legal medical record ([facility]). * RPT #: [id number] END OF REPORT 2023-02-11 [facility] [email or web address] 14:32:56-00:00 Signed form, faxed over to [facility] and confirmatio n kathleen. Electronically signed by Joelle Cohen MA a t 02/11/2023 2:33 PM CDT 2023-02-11 [facility] 13:43:00-00:00 [facility] ([facility]) Hospitalist Progress Note REPORT #: [id number] REPORT STATUS: Signed DATE: 02/11/23 TIME: 1343 PATIENT: CASEY LYONS UNIT #: [id number] ROOM #: [id number] BED: 1 : 37 AGE: 87 SEX: F ATTEND: Linda Whitaker MD ADM AUTHOR: Tahir Ying MD ATTENTION *EDITS and/or ADDENDA must be made in Patient Ke eper for this note. * * Edits and ammendments created in [employer] are not visible * * in Patient Keeper or the legal medical record ([facility]). * -- ASSESSMENT AND PLAN -- GENERAL ASSESSMENT: Assessment and plan: 1--NSTEMI: Complains of off-and-on chest pain and shortness of breath---denies any chest pain Elevated troponin ECHO: Ejection Fraction = 45-50% -Serial troponin monitoring -Continuous telemetry monitoring -Hold aspirin given concerns of GI bleed -Sublingual nitroglycerin as needed for chest pa in -Cardiology consulted follow recommendations Moderate to high perioperative cardiovascular risk, but not prohibitive---cardio recs appreciated Extensive discussion was held with the cindy t, son at bedside and cardiology---wants medical management,/hold off on aggressive intervention- discussed with daughter this morning 2--acute on chronic anemia--iron deficiency: 3--possible GI bleed: S/p PRBC transfusion S/P EGD -IV iron -Trend H H -Transfuse PRBC if Hgb< 7 -Monitor for signs and symptoms of bleeding -Hold aspirin and Eliquis -GI on board, follow recommendations 4--community acquired pneumonia: 5--acute of chronic CHF: -ECHO pending -Check BNP -Lasix 40 IV BID started; consider thoracentesis if effusion not improved -Rocephin and azithromycin -DuoNeb's as needed for sob -O2 supplementation as needed to keep O2 saturat ions>. 92 % -Cardiology on board follow recs 6--carotid artery disease: 7--coronary artery disease: 8--peripheral artery disease: -Continue home medications -Hold aspirin and Eliquis -Cardiology consulted follow recommendations- lo op recorder outpatient if pt and family agreees 9--hypothyroidism: TSH 3.54 -Continue home dose Synthroid 10--hypertension: -Monitor vitals -Continue home medications and adjust as needed 11--dyslipidemia: -Continue statin 12--CKD--unknown baseline creatinine: -Avoid nephrotoxic medication -Trend BMP 12--CVA, dementia: -Continue home medication -Supportive care 13--Cough - ST eval ordered - Tessalon TID and Guaifenesin - Aspiration precautions DVT prophylaxis SCDs GI prophylaxis PPI CODE STATUS full code Disposition pending clinical course and consulti services clearance. Anticipate discharge to SNF- to discuss optio ns Time Spent 40 minutes -- SUBJECTIVE -- PATIENT NARRATIVE: Patient seen and examined this AM, she is sittin g in bed and was coughing/choking on breakfast slightly. She said a piece of egg was possible stuck in her throat- no resp iratory distress. Daughter at bedside, discussed in detail -REVIEW OF SYSTEMS- COMMENT: general review of systems performed and was otherwise unremarkable except noted above -- OBJECTIVE -- -EXAM- GENERAL: Well developed, in no acute distress. HEAD: Normocephalic, atraumatic. EYES: PERRL, lids normal. NOSE: No deformity, no discharge, no inflammatio n, no lesions. MOUTH: Oropharynx without deformities or lesions , normal mucosa.. NECK: Supple, No masses. CHEST: Grossly normal appearance. LUNGS: Clear bilaterally with normal respiratory effort. HEART: Regular rate and rhythm, normal S1, S2. ABDOMEN: Soft, non-tender, no masses noted. MUSCULOSKELETAL: No deformity. EXTREMITIES: No clubbing, no cyanosis, no edema. NEUROLOGICAL: No focal deficits. SKIN: Intact without significant lesions, or ho hes. PSYCHIATRIC: Alert and oriented to time, person, place. Normal mood and affect, intact judgment and insight. -- QUALITY -- -MEDICATIONS- - I attest that the foregoing medication list i n the medical record is true, accurate, and complete to the best of my knowled ge. -- ATTESTATION -- TIME SPENT ON PATIENT CARE: - Direct 40 minutes - > 50% of time spent on Counseling/Care Coordi nation CARE ACTIVITIES / CARE COORDINATION: - I have reviewed the history and repeated the up elements - I have seen and examined this patient - I have reviewed the progress in the clinical course since the last examination - I have discussed the preet ent's condition with other members of the care team Signed in PatientKeeper by Tahir Ying MD on 02/11/23 at 13:49 Electronically Signed by Tahir Ying MD on 0 02/11/23 at 1349 ATTENTION *EDITS and/or ADDENDA must be made in Patient Ke eper for this note. * * Edits and ammendments created in [employer] are not visible * * in Patient Keeper or the legal medical record ([facility]). * [facility] #: [id number] END OF REPORT 2023-02-11 [facility] 11:08:00-00:00 [facility] ([facility]) Cardiology Progress Notes REPORT #: [id number] REPORT STATUS: Signed DATE: 02/11/23 TIME: 1108 PATIENT: CASEY LYONS UNIT #: [id number] ROOM #: [id number] BED: 1 : 37 AGE: 87 SEX: F ATTEND: Linda Whitaker MD ADM AUTHOR: Ministerio Witt MD ATTENTION *EDITS and/or ADDENDA must be made in Patient Ke eper for this note. * * Edits and ammendments created in [facility] are not visible * * in Patient Keeper or the legal medical record ([facility]). * -- ASSESSMENT AND PLAN -- PROBLEMS: 1: SOB (shortness of breath) A/P: CXR shows L> R pleural effusiojn Give Lasix 40 mg IV BID repeat CXR in AM IF not better then consider thoracentesis 2: Post-operative state A/P: POST OP EGD tolerated egd without complication 3: NSTEMI (non-ST elevated myocardial infarction ) A/P: 2y to severe anemia also has hx of prior CAD and stents probably type II NSTEMI poor cath candidate for revascularization due to anemia/gibleed. resume asa 81 mg daily once okay with gi 4: Anemia A/P: RECURRENT s/p repeated transfusions per GI 5: Hypertension A/P: adjust meds as needed. acceptable control 6: Cerebrovascular accident, old A/P: unclear residual deficits ? multi-infarct dementia. was on eliquis 2.5 mg bid as outpatient not sure if from paf, but no clear afib seen her e not sure if she will tolerate oac given recurren t anemia/gi bleeding issues IF GI clears then restart Eliquis 2.5 BID Should get Loop recorder as out patient if patie nt and family agree. 7: Hyperlipidemia LDL goal <70 A/P: on statin 8: Peripheral vascular disease A/P: s/p bilateral LE bypasses? 9: Chronic kidney disease A/P: as per med team MOnitor renal function. -- SUBJECTIVE -- PATIENT NARRATIVE: Seen in the room Daughter t bedside She is still SOB NO fever -REVIEW OF SYSTEMS- COMMENT: general review of systems performed an d was otherwise unremarkable except noted above -- OBJECTIVE -- VITALS (02/10 11:08 - 02/11 11:08): Temperature C: 36.6 (36.3 - 36.6) Temperature source: Oral Pulse Rate 61 (52 - 73) Respiratory rate: 16 (16 - 18) Blood pressure: 167/52 (108/52 - 167/72) Blood pressure source: Monitor ADDITIONAL V/S: Tele NSR -EXAM- OTHER: Gen: older female. appears weak. appears pale. HEENT: nc/at. pupils equal. NECK: no jvd. no bruits LUNGS: reduced A/E in both bases L > R CARDIAC: regular rate and rhythm. normal s1 and s2. 2/6 systolic murmur ABDOMEN: soft. normal bowel sounds. not tender. EXTREMITIES: no edema. absent pulses.. NEUROLOGY: alert and oriented x 2 -- DATA -- MEDICATIONS ACETAMINOPHEN 650 MG PO Q4H PRN amLODIPine BESYLATE 5 MG PO DAILY AZITHROMYCIN 500 MG PO DAILY@1700 morphine SULFATE 2 MG IV Q3H PRN hydrALAZINE HCL 10 MG IV Q6H PRN MEMANTINE HCL 5 MG PO BID MONTELUKAST SODIUM 10 MG PO BEDTIME carvediloL 25 MG PO BID MEALS MULTIVITAMIN WITH FOLIC ACID 1 TAB PO DAILY PANTOPRAZOLE with/in SODIUM CHLORIDE 100 mL BAG 80 MG IV Q10H GALANTAMINE HYDROBROMIDE 8 MG PO 0800,1800 FUROSEMIDE 40 MG IV BID@0700,1500 ATORVASTATIN CALCIUM 80 MG PO BEDTIME LEVOTHYROXINE SODIUM 25 MCG PO DAILY@0600 cefTRIAXone with/in SODIUM CHLORIDE 0.9% 1000 MG IV Q24H ONDANSETRON HCL/PF 4 MG IV Q6H PRN LABS CBC W/AUTO DIFF (02/11/23 07:38) WHITE BLOOD CELL 8.7 RED BLOOD CELL 2.81 L HEMOGLOBIN 8.3L L HEMATOCRIT 26.5L L MEAN CELL VOLUME 94 MEAN CELL HGB 29.5 MEAN CELL HGB CONCENTRATION 31.3 RED CELL DISTRIBUTION WIDTH 18.2 H PLATELET COUNT 210 MEAN PLATELET VOLUME 11.7 NEUTROPHIL % 82.6 H IMMATURE GRANULOCYTE % 0.5 LYMPHOCYTE % 6.4 L MONOCYTE % 8.3 EOSINOPHIL % 2.1 BASOPHIL % 0.1 NUCLEATED RBC % 0.0 NEUTROPHIL # 7.15 H IMMATURE GRANULOCYTE # 0.040 LYMPHOCYTE # 0.55 L MONOCYTE # 0.72 EOSINOPHIL # 0.18 BASOPHIL # 0.01 NUCLEATED RBC # 0.000 COMPREHENSIVE METABOLIC PANEL (02/11/23 07:38) SODIUM 138 POTASSIUM 3.7 CHLORIDE 110H H CARBON DIOXIDE 21 ANION GAP 10.7 GLUCOSE 99 BLOOD UREA NITROGEN 48H H GLOMERULAR FILTRATION RATE 23 L CREATININE 2.1H H BUN/CREATININE RATIO 22.9 H TOTAL PROTEIN 5.3 L ALBUMIN 2.3 L CALCIUM 8.9 BILIRUBIN TOTAL 0.7 SGOT/AST 26 SGPT/ALT 28 ALKALINE PHOSPHATASE 85 Signed in PatientKeeper by Ministerio Witt MD on 02/11/23 at 11:14 Electronically Signed by Ministerio Witt MD on 0 02/11/23 at 1114 ATTENTION *EDITS and/or ADDENDA must be made in Patient Ke eper for this note. * * Edits and ammendments created in [facility] are not visible * * in Patient Keeper or the legal medical record ([facility]). * [facility] #: [id number] END OF REPORT 2023-02-11 [facility] 09:00:00-00:00 [facility] ([facility]) Gastroenterology Prog. Note REPORT #: [id number] REPORT STATUS: Signed DATE: 02/11/23 TIME: 09 PATIENT: CASEY LYONS UNIT #: [id number] ROOM #: [id number] BED: 1 : 37 AGE: 87 SEX: F ATTEND: Linda Whitaker MD ADM AUTHOR: Bennie Bruno MD ATTENTION *EDITS and/or ADDENDA must be made in Patient Chema johnson for this note. * * Edits and ammendments created in [employer] are not visible * * in Patient Keeper or the legal medical record ([facility]). 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 But these were very small. Famil y not interested in her going through a colonoscopy for further evaluation. They understand the risk of missing colon cancer. 2: Elevated troponin A/P: Cardiology consulted. 3: CKD (chronic kidney disease) A/P: Nephro on board. 4: Dementia A/P: stable dementia. -- SUBJECTIVE -- CHIEF COMPLAINT: Anemia HPI: I have spoken to the patients RN and heard the p atient issues in the past 24hrs. There have been no changes in GI point of view. No new complains. No Melena or Hematochezia or Hematemesis -- OBJECTIVE -- VITALS (02/11 00:01 - 02/12 00:01): Temperature C: 36.5 (36.4 - 36.6) Temperature source: Oral Pulse Rate 59 (52 - 61) Respiratory rate: 16 (16 - 18) Blood pressure: 131/52 (108/52 - 167/77) -EXAM- GENERAL: Well developed, in no acute distress. HEAD: Normocephalic, atraumatic. EYES: PERRL, lids normal. NECK: Supple, No masses. CHEST: Grossly normal appearance. LUNGS: Clear bilaterally with normal respiratory effort. HEART: Regular rate and rhythm, normal S1, S2. ABDOMEN: Soft, non-tender, no masses noted. MUSCULOSKELETAL: No deformity. NEUROLOGICAL: No focal deficits. -- DATA -- MEDICATIONS ACETAMINOPHEN 650 MG PO Q4H PRN amLODIPine BESYLATE 5 MG PO DAILY guaiFENesin 600 MG PO Q12H PRN AZITHROMYCIN 500 MG PO DAILY@1700 hydrALAZINE HCL 10 MG IV Q6H PRN MEMANTINE HCL 5 MG PO BID MONTELUKAST SODIUM 10 MG PO BEDTIME BENZONATATE 200 MG PO TID KETOTIFEN FUMARATE 1 DROP EACH EYE Q8HR PANTOPRAZOLE 40 MG PO Q12HR carvediloL 25 MG PO BID MEALS MELATONIN 5 MG PO BEDTIME MULTIVITAMIN WITH FOLIC ACID 1 TAB PO DAILY GALANTAMINE HYDROBROMIDE 8 MG PO 0800,1800 FUROSEMIDE 40 MG IV BID@0700,1500 ATORVASTATIN CALCIUM 80 MG PO BEDTIME LEVOTHYROXINE SODIUM 25 MCG PO DAILY@0600 cefTRIAXone with/in SODIUM CHLORIDE 0.9% 1000 MG IV Q24H ONDANSETRON HCL/PF 4 MG IV Q6H PRN LABS CBC W/AUTO DIFF (02/11/23 07:38) WHITE BLOOD CELL 8.7 RED BLOOD CELL 2.81 L HEMOGLOBIN 8.3L L HEMATOCRIT 26.5L L MEAN CELL VOLUME 94 MEAN CELL HGB 29.5 MEAN CELL HGB CONCENTRATION 31.3 RED CELL DISTRIBUTION WIDTH 18.2 H PLATELET COUNT 210 MEAN PLATELET VOLUME 11.7 NEUTROPHIL % 82.6 H IMMATURE GRANULOCYTE % 0.5 LYMPHOCYTE % 6.4 L MONOCYTE % 8.3 EOSINOPHIL % 2.1 BASOPHIL % 0.1 NUCLEATED RBC % 0.0 NEUTROPHIL # 7.15 H IMMATURE GRANULOCYTE # 0.040 LYMPHOCYTE # 0.55 L MONOCYTE # 0.72 EOSINOPHIL # 0.18 BASOPHIL # 0.01 NUCLEATED RBC # 0.000 COMPREHENSIVE METABOLIC PANEL (02/11/23 07:38) SODIUM 138 POTASSIUM 3.7 CHLORIDE 110H H CARBON DIOXIDE 21 ANION GAP 10.7 GLUCOSE 99 BLOOD UREA NITROGEN 48H H GLOMERULAR FILTRATION RATE 23 L CREATININE 2.1H H BUN/CREATININE RATIO 22.9 H TOTAL PROTEIN 5.3 L ALBUMIN 2.3 L CALCIUM 8.9 BILIRUBIN TOTAL 0.7 SGOT/AST 26 SGPT/ALT 28 ALKALINE PHOSPHATASE 85 Signed in PatientKeeper by Bennie Bruno MD on at 00:02 Electronically Signed by Bennie Bruno MD on 01/22 09/12 at 0002 ATTENTION *EDITS and/or ADDENDA must be made in Patient [facility] for this note. * * Edits and ammendments created in [employer] are not visible * * in Patient Keeper or the legal medical record ([facility]). * RPT #: [id number] END OF REPORT 2023-02-10 [facility] 15:50:46-00:00 Patient now in assisted facility 2023-02-10 [facility] 14:52:00-00:00 [facility] ([facility]) Hospitalist Progress Note REPORT #: [id number] REPORT STATUS: Signed DATE: 02/10/23 TIME: 1452 PATIENT: CASEY LYONS UNIT #: [id number] ROOM #: [id number] BED: 1 : 37 AGE: 87 SEX: F ATTEND: Linda Whitaker MD ADM AUTHOR: Linda Whitaker MD ATTENTION *EDITS and/or ADDENDA must be made in Patient [facility] for this note. * * Edits and ammendments created in [employer] are not visible * * in Patient Keeper or the legal medical record ([facility]). * -- ASSESSMENT AND PLAN -- GENERAL ASSESSMENT: Assessment and plan: 1--NSTEMI: Complains of off-and-on chest pain and shortness of breath---denies any chest pain Elevated troponin ECHO: Ejection Fraction = 45-50% -Serial troponin monitoring -Continuous telemetry monitoring -Hold aspirin given concerns of GI bleed -Sublingual nitroglycerin as needed for chest pa in -Cardiology consulted follow recommendations Moderate to high perioperative cardiovascular risk, but not prohibitive---cardio recs appreciated Extensive discussion was held with the cindy rodríguez, son at bedside and cardiology---wants medical management,/hold off on aggressive intervention 2--acute on chronic anemia--iron deficiency: 3--possible GI bleed: S/p PRBC transfusion S/P EGD -IV iron -Trend H H -Transfuse PRBC if Hgb< 7 -Monitor for signs and symptoms of bleeding -Hold aspirin and Eliquis -GI on board, follow recommendations 4--community acquired pneumonia: 5--acute of chronic CHF: -ECHO pending -Check BNP -x1 IV lasix -Rocephin nd azithromycin -DuoNeb's as needed for sob -O2 supplementation as needed to keep O2 saturat ions>. 92 % -Cardiology on board follow recs 6--carotid artery disease: 7--coronary artery disease: 8--peripheral artery disease: -Continue home medications -Hold aspirin and Eliquis -Cardiology consulted follow recommendations 9--hypothyroidism: TSH 3.54 -Continue home dose Synthroid 10--hypertension: -Monitor vitals -Continue home medications and adjust as needed 11--dyslipidemia: -Continue statin 12--CKD--unknown baseline creatinine: -Avoid nephrotoxic medication -Trend BMP 12--CVA, dementia: -Continue home medication -Supportive care DVT prophylaxis SCDs GI prophylaxis PPI CODE STATUS full code Disposition pending clinical course and consulti ng services clearance Time Spent 40 minutes -- SUBJECTIVE -- PATIENT NARRATIVE: Pt seen and examined by me in the morning. Hemod ynamically stable, C/o shortness of breath, chest Xray performed and re viewed. Started Abx for pneumonia, x 1 IV lasix. -- OBJECTIVE -- VITALS (02/09 14:52 - 02/10 14:52): Temperature C: 36.6 (36.2 - 36.6) Temperature source: Oral Pulse Rate 73 (50 - 73) Respiratory rate: 18 (18 - 20) Blood pressure: 144/64 (107/52 - 164/66) Blood pressure source: Monitor I/Os (02/09 07:00 - 02/10 07:00): Net 750.00 Intake 750.00 -EXAM- GENERAL: Well developed, in no acute distress. HEAD: Normocephalic, atraumatic. EYES: PERRL, lids normal. NECK: Supple, No masses. CHEST: Grossly normal appearance. LUNGS: Clear bilaterally with normal respiratory effort. HEART: Regular rate and rhythm, normal S1, S2. ABDOMEN: Soft, non-tender, no masses noted. MUSCULOSKELETAL: No deformity. NEUROLOGICAL: No focal deficits. -- DATA -- MEDICATIONS ACETAMINOPHEN 650 MG PO Q4H PRN amLODIPine BESYLATE 5 MG PO DAILY morphine SULFATE 2 MG IV Q3H PRN hydrALAZINE HCL 10 MG IV Q6H PRN MEMANTINE HCL 5 MG PO BID MONTELUKAST SODIUM 10 MG PO BEDTIME carvediloL 25 MG PO BID MEALS SODIUM CHLORIDE 0.9% 500 ML IV .Q24H MULTIVITAMIN WITH FOLIC ACID 1 TAB PO DAILY PANTOPRAZOLE with/in SODIUM CHLORIDE 100 mL BAG 80 MG IV Q10H GALANTAMINE HYDROBROMIDE 8 MG PO 0800,1800 ATORVASTATIN CALCIUM 80 MG PO BEDTIME LEVOTHYROXINE SODIUM 25 MCG PO DAILY@0600 ONDANSETRON HCL/PF 4 MG IV Q6H PRN LABS CBC W/AUTO DIFF (02/10/23 06:04) WHITE BLOOD CELL 11.1H H RED BLOOD CELL 2.82 L HEMOGLOBIN 8.5L L HEMATOCRIT 26.7L L MEAN CELL VOLUME 95 MEAN CELL HGB 30.1 MEAN CELL HGB CONCENTRATION 31.8 RED CELL DISTRIBUTION WIDTH 18.1 H PLATELET COUNT 221 MEAN PLATELET VOLUME 12.3 NEUTROPHIL % 85.4 H IMMATURE GRANULOCYTE % 0.6 LYMPHOCYTE % 4.7 L MONOCYTE % 8.7 EOSINOPHIL % 0.5 BASOPHIL % 0.1 NUCLEATED RBC % 0.0 NEUTROPHIL # 9.51 H IMMATURE GRANULOCYTE # 0.070 LYMPHOCYTE # 0.52 L MONOCYTE # 0.97 H EOSINOPHIL # 0.06 BASOPHIL # 0.01 NUCLEATED RBC # 0.000 BNP (02/10/23 06:04) B-TYPE NATRIURETIC PEPTIDE 3661 H COMPREHENSIVE METABOLIC PANEL (02/10/23 06:04) SODIUM 135 POTASSIUM 4.6D D CHLORIDE 109H H CARBON DIOXIDE 23 ANION GAP 7.6 D GLUCOSE 120H H BLOOD UREA NITROGEN 46H H GLOMERULAR FILTRATION RATE 20 L CREATININE 2.3H H BUN/CREATININE RATIO 20.0 TOTAL PROTEIN 5.4 L ALBUMIN 2.3 L CALCIUM 8.8 BILIRUBIN TOTAL 0.6 SGOT/AST 34 SGPT/ALT 35 D ALKALINE PHOSPHATASE 96 D -- ATTESTATION -- TIME SPENT ON PATIENT CARE: - Direct 40 minutes - > 50% of time spent on Counseling/Care Coordi nation CARE ACTIVITIES / CARE COORDINATION: - I have reviewed the history and repeated the up elements - I have seen and examined this patient - I have reviewed the progress in the clinical course since the last examination - I have discussed the preet ent's condition with other members of the care team Signed in PatientKeeper by Linda Whitaker MD on at 14:58 Electronically Signed by Linda Whitaker MD on 01/22 07/15 at 1458 ATTENTION *EDITS and/or ADDENDA must be made in Patient Ke eper for this note. * * Edits and ammendments created in [facility] are not visible * * in Patient Keeper or the legal medical record ([facility]). * [facility] #: [id number] END OF REPORT 2023-02-10 [facility] 12:43:00-00:00 [facility] ([facility]) Gastroenterology Prog. Note REPORT #: [id number] REPORT STATUS: Signed DATE: 02/10/23 TIME: 1243 PATIENT: CASEY LYONS UNIT #: [id number] ROOM #: [id number] BED: 1 : 37 AGE: 87 SEX: F ATTEND: Linda Whitaker MD ADM AUTHOR: Bennie Bruno MD ATTENTION *EDITS and/or ADDENDA must be made in Patient Ke eper for this note. * * Edits and ammendments created in [employer] are not visible * * in Patient Keeper or the legal medical record ([facility]). 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 But these were very small. Famil y not interested in her going through a colonoscopy for further evaluation. They understand the risk of missing colon cancer. 2: Elevated troponin A/P: Cardiology consulted. 3: CKD (chronic kidney disease) A/P: Nephro on board. 4: Dementia A/P: stable dementia. -- SUBJECTIVE -- CHIEF COMPLAINT: Anemia HPI: I have spoken to the patients RN and heard the p atient issues in the past 24hrs. There have been no changes in GI point of view. No new complains. No Melena or Hematochezia or Hematemesis -- OBJECTIVE -- VITALS (02/10 00:17 - 02/11 00:17): Temperature C: 36.3 (36.2 - 36.6) Temperature source: Oral Pulse Rate 53 (50 - 73) Respiratory rate: 16 (16 - 20) Blood pressure: 130/67 (122/62 - 164/67) Blood pressure source: Monitor I/Os (02/09 07:00 - 02/10 07:00): Net 750.00 Intake 750.00 -EXAM- GENERAL: Well developed, in no acute distress. HEAD: Normocephalic, atraumatic. EYES: PERRL, lids normal. NECK: Supple, No masses. CHEST: Grossly normal appearance. LUNGS: Clear bilaterally with normal respiratory effort. HEART: Regular rate and rhythm, normal S1, S2. ABDOMEN: Soft, non-tender, no masses noted. MUSCULOSKELETAL: No deformity. NEUROLOGICAL: No focal deficits. -- DATA -- MEDICATIONS ACETAMINOPHEN 650 MG PO Q4H PRN amLODIPine BESYLATE 5 MG PO DAILY morphine SULFATE 2 MG IV Q3H PRN hydrALAZINE HCL 10 MG IV Q6H PRN MEMANTINE HCL 5 MG PO BID MONTELUKAST SODIUM 10 MG PO BEDTIME carvediloL 25 MG PO BID MEALS AZITHROMYCIN with/in SODIUM CHLORIDE 0.9% 500 MG IV Q24H SODIUM CHLORIDE 0.9% 500 ML IV .Q24H MULTIVITAMIN WITH FOLIC ACID 1 TAB PO DAILY PANTOPRAZOLE with/in SODIUM CHLORIDE 100 mL BAG 80 MG IV Q10H GALANTAMINE HYDROBROMIDE 8 MG PO 0800,1800 ATORVASTATIN CALCIUM 80 MG PO BEDTIME LEVOTHYROXINE SODIUM 25 MCG PO DAILY@0600 cefTRIAXone with/in SODIUM CHLORIDE 0.9% 1000 MG IV Q24H ONDANSETRON HCL/PF 4 MG IV Q6H PRN LABS CBC W/AUTO DIFF (02/10/23 06:04) WHITE BLOOD CELL 11.1H H RED BLOOD CELL 2.82 L HEMOGLOBIN 8.5L L HEMATOCRIT 26.7L L MEAN CELL VOLUME 95 MEAN CELL HGB 30.1 MEAN CELL HGB CONCENTRATION 31.8 RED CELL DISTRIBUTION WIDTH 18.1 H PLATELET COUNT 221 MEAN PLATELET VOLUME 12.3 NEUTROPHIL % 85.4 H IMMATURE GRANULOCYTE % 0.6 LYMPHOCYTE % 4.7 L MONOCYTE % 8.7 EOSINOPHIL % 0.5 BASOPHIL % 0.1 NUCLEATED RBC % 0.0 NEUTROPHIL # 9.51 H IMMATURE GRANULOCYTE # 0.070 LYMPHOCYTE # 0.52 L MONOCYTE # 0.97 H EOSINOPHIL # 0.06 BASOPHIL # 0.01 NUCLEATED RBC # 0.000 BNP (02/10/23 06:04) B-TYPE NATRIURETIC PEPTIDE 3661 H COMPREHENSIVE METABOLIC PANEL (02/10/23 06:04) SODIUM 135 POTASSIUM 4.6D D CHLORIDE 109H H CARBON DIOXIDE 23 ANION GAP 7.6 D GLUCOSE 120H H BLOOD UREA NITROGEN 46H H GLOMERULAR FILTRATION RATE 20 L CREATININE 2.3H H BUN/CREATININE RATIO 20.0 TOTAL PROTEIN 5.4 L ALBUMIN 2.3 L CALCIUM 8.8 BILIRUBIN TOTAL 0.6 SGOT/AST 34 SGPT/ALT 35 D ALKALINE PHOSPHATASE 96 D Signed in PatientKeeper by Bennie Bruno MD on at 00:19 Electronically Signed by Bennie Bruno MD on 01/22 08/15 at 0019 ATTENTION *EDITS and/or ADDENDA must be made in Patient Ke eper for this note. * * Edits and ammendments created in [facility] are not visible * * in Patient Keeper or the legal medical record ([facility]). * [facility] #: [id number] END OF REPORT 2023-02-10 [facility] 08:49:00-00:00 [facility] ([facility]) Cardiology Progress Notes REPORT #: [id number] REPORT STATUS: Signed DATE: 02/10/23 TIME: 848 PATIENT: CASEY LYONS UNIT #: [id number] ROOM #: [id number] BED: 1 : 37 AGE: 87 SEX: F ATTEND: Linda Whitaker MD ADM AUTHOR: Darwin Deal MD ATTENTION *EDITS and/or ADDENDA must be made in Patient Ke eper for this note. * * Edits and ammendments created in [employer] are not visible * * in Patient Keeper or the legal medical record ([facility]). * -- ASSESSMENT AND PLAN -- PROBLEMS: 1: SOB (shortness of breath) A/P: NEW CHECK CXR ? DUE TO FLUID OVERLOAD WITH TRANSFUSION ETC TRY LOW DOSE IV LASIX 2: Post-operative state A/P: POST OP EGD tolerated egd without complication 3: NSTEMI (non-ST elevated myocardial infarction ) A/P: 2y to severe anemia also has hx of prior CAD and stents probably type II NSTEMI poor cath candidate for revascularization due to anemia/gibleed. resume asa 81 mg daily once okay with gi 4: Anemia A/P: RECURRENT s/p repeated transfusions per GI 5: Hypertension A/P: adjust meds as needed. acceptable control 6: Cerebrovascular accident, old A/P: unclear residual deficits ? multi-infarct dementia. was on eliquis 2.5 mg bid as outpatient not sure if from paf, but no clear afib seen her e not sure if she will tolerate oac given recurren t anemia/gi bleeding issues 7: Hyperlipidemia LDL goal <70 A/P: on statin 8: Peripheral vascular disease A/P: s/p bilateral LE bypasses? 9: Chronic kidney disease A/P: stage IV ADDITIONAL COMMENTS: SUPPORTIVE CARE D/W PATIENT AND SON -- SUBJECTIVE -- PATIENT NARRATIVE: AWAKE SOB STATES SOB WORSE SINCE YESTERDAY , NO CHEST PAIN SON ON BED SIDE -REVIEW OF SYSTEMS- COMMENT: 14 ROS negative except for HPI -- OBJECTIVE -- VITALS (02/09 08:49 - 02/10 08:49): Temperature C: 36.2 (36.2 - 36.6) Temperature source: Oral Pulse Rate 56 (50 - 64) Respiratory rate: 18 Blood pressure: 164/66 (107/52 - 164/72) I/Os (02/09 07:00 - 02/10 07:00): Net 750.00 Intake 750.00 -EXAM- OTHER: Gen: older female. appears weak. appears pale. HEENT: nc/at. pupils equal. NECK: no jvd. no bruits LUNGS: clear to auscultation bilaterally CARDIAC: regular rate and rhythm. normal s1 and s2. 2/6 systolic murmur ABDOMEN: soft. normal bowel sounds. not tender. EXTREMITIES: no edema. absent pulses.. NEUROLOGY: alert and oriented x 2 -- DATA -- MEDICATIONS ACETAMINOPHEN 650 MG PO Q4H PRN amLODIPine BESYLATE 5 MG PO DAILY morphine SULFATE 2 MG IV Q3H PRN hydrALAZINE HCL 10 MG IV Q6H PRN MEMANTINE HCL 5 MG PO BID MONTELUKAST SODIUM 10 MG PO BEDTIME SOD FERRIC GLUC COMPLEX/SUC with/in SODI UM CHLORIDE 100 mL BAG 125 MG IV DAILY carvediloL 25 MG PO BID MEALS SODIUM CHLORIDE 0.9% 500 ML IV .Q24H MULTIVITAMIN WITH FOLIC ACID 1 TAB PO DAILY PANTOPRAZOLE with/in SODIUM CHLORIDE 100 mL BAG 80 MG IV Q10H GALANTAMINE HYDROBROMIDE 8 MG PO 0800,1800 ATORVASTATIN CALCIUM 80 MG PO BEDTIME LEVOTHYROXINE SODIUM 25 MCG PO DAILY@0600 ONDANSETRON HCL/PF 4 MG IV Q6H PRN LABS CBC W/AUTO DIFF (02/10/23 06:04) WHITE BLOOD CELL 11.1H H RED BLOOD CELL 2.82 L HEMOGLOBIN 8.5L L HEMATOCRIT 26.7L L MEAN CELL VOLUME 95 MEAN CELL HGB 30.1 MEAN CELL HGB CONCENTRATION 31.8 RED CELL DISTRIBUTION WIDTH 18.1 H PLATELET COUNT 221 MEAN PLATELET VOLUME 12.3 NEUTROPHIL % 85.4 H IMMATURE GRANULOCYTE % 0.6 LYMPHOCYTE % 4.7 L MONOCYTE % 8.7 EOSINOPHIL % 0.5 BASOPHIL % 0.1 NUCLEATED RBC % 0.0 NEUTROPHIL # 9.51 H IMMATURE GRANULOCYTE # 0.070 LYMPHOCYTE # 0.52 L MONOCYTE # 0.97 H EOSINOPHIL # 0.06 BASOPHIL # 0.01 NUCLEATED RBC # 0.000 COMPREHENSIVE METABOLIC PANEL (02/10/23 06:04) SODIUM 135 POTASSIUM 4.6D D CHLORIDE 109H H CARBON DIOXIDE 23 ANION GAP 7.6 D GLUCOSE 120H H BLOOD UREA NITROGEN 46H H GLOMERULAR FILTRATION RATE 20 L CREATININE 2.3H H BUN/CREATININE RATIO 20.0 TOTAL PROTEIN 5.4 L ALBUMIN 2.3 L CALCIUM 8.8 BILIRUBIN TOTAL 0.6 SGOT/AST 34 SGPT/ALT 35 D ALKALINE PHOSPHATASE 96 D COMPREHENSIVE METABOLIC PANEL (02/09/23 09:26) SODIUM 137 POTASSIUM 3.5 CHLORIDE 107 CARBON DIOXIDE 22 ANION GAP 11.5 GLUCOSE 103H H BLOOD UREA NITROGEN 50H H GLOMERULAR FILTRATION RATE 18 L CREATININE 2.5H H BUN/CREATININE RATIO 20.0 TOTAL PROTEIN 5.1 L ALBUMIN 2.3 L CALCIUM 8.1 L BILIRUBIN TOTAL 0.7 SGOT/AST 19 SGPT/ALT 18 ALKALINE PHOSPHATASE 58 CBC W/AUTO DIFF (02/09/23 09:26) WHITE BLOOD CELL 7.7 RED BLOOD CELL 2.72 L HEMOGLOBIN 8.1L L HEMATOCRIT 25.3L L MEAN CELL VOLUME 93 MEAN CELL HGB 29.8 MEAN CELL HGB CONCENTRATION 32.0 RED CELL DISTRIBUTION WIDTH 18.2 H PLATELET COUNT 179 MEAN PLATELET VOLUME 12.1 NEUTROPHIL % 79.2 H IMMATURE GRANULOCYTE % 0.4 LYMPHOCYTE % 9.4 L MONOCYTE % 10.1 EOSINOPHIL % 0.8 BASOPHIL % 0.1 NUCLEATED RBC % 0.0 NEUTROPHIL # 6.07 IMMATURE GRANULOCYTE # 0.030 LYMPHOCYTE # 0.72 L MONOCYTE # 0.77 EOSINOPHIL # 0.06 BASOPHIL # 0.01 NUCLEATED RBC # 0.000 Signed in PatientKeeper by Darwin Deal MD on 02/10/23 at 08:52 Electronically Signed by Darwin Deal MD o n 02/10/23 at 0852 ATTENTION *EDITS and/or ADDENDA must be made in Patient Ke eper for this note. * * Edits and ammendments created in [employer] are not visible * * in Patient Keeper or the legal medical record ([facility]). * RPT #: [id number] END OF REPORT 2023-02-09 [facility] 14:21:00-00:00 [facility] ([facility]) Cardiology Progress Notes REPORT #: [id number] REPORT STATUS: Signed DATE: 02/09/23 TIME: 1420 PATIENT: CASEY LYONS UNIT #: [id number] ROOM #: [id number] BED: 1 : 37 AGE: 87 SEX: F ATTEND: Linda Whitaker MD ADM AUTHOR: Vishal Macario MD ATTENTION *EDITS and/or ADDENDA must be made in Patient Ke eper for this note. * * Edits and ammendments created in [employer] are not visible * * in Patient Keeper or the legal medical record ([facility]). * -- ASSESSMENT AND PLAN -- PROBLEMS: 1: Post-operative state A/P: tolerated egd without complication 2: NSTEMI (non-ST elevated myocardial infarction ) A/P: 2y to severe anemia also has hx of prior CAD and stents probably type II NSTEMI poor cath candidate for revascularization due to anemia/gibleed. resume asa 81 mg daily once okay with gi 3: Anemia A/P: severe recurrent s/p repeated transfusions per GI 4: Hypertension A/P: adjust meds as needed. acceptable control 5: Hyperlipidemia LDL goal <70 A/P: on statin 6: Cerebrovascular accident, old A/P: unclear residual deficits ? multi-infarct dementia. was on eliquis 2.5 mg bid as outpatient not sure if from paf, but no clear afib seen her e not sure if she will tolerate oac given recurren t anemia/gi bleeding issues 7: Peripheral vascular disease A/P: s/p bilateral LE bypasses? 8: Chronic kidney disease A/P: stage IV ADDITIONAL COMMENTS: Plan: Continue current cv meds, supportive care -- SUBJECTIVE -- PATIENT NARRATIVE: seen in the room s/p egd had avm which were treated tolerated procedure well -REVIEW OF SYSTEMS- COMMENT: 14 ROS negative except for HPI -- OBJECTIVE -- VITALS (02/08 14:21 - 02/09 14:21): Temperature F: 97.9 Temperature C: 36.4 (36.4 - 36.7) Temperature source: Oral Pulse Rate 53 (50 - 65) Respiratory rate: 18 (16 - 20) Blood pressure: 149/72 (129/55 - 149/72) Blood pressure source: Monitor I/Os (02/08 07:00 - 02/09 07:00): Net 700.00 Intake 700.00 -EXAM- OTHER: Gen: older female. appears weak. appears pale. HEENT: nc/at. pupils equal. NECK: no jvd. no bruits LUNGS: clear to auscultation bilaterally CARDIAC: regular rate and rhythm. normal s1 and s2. 2/6 systolic murmur ABDOMEN: soft. normal bowel sounds. not tender. EXTREMITIES: no edema. absent pulses.. NEUROLOGY: alert and oriented x 2 -- DATA -- MEDICATIONS ACETAMINOPHEN 650 MG PO Q4H PRN amLODIPine BESYLATE 5 MG PO DAILY morphine SULFATE 2 MG IV Q3H PRN hydrALAZINE HCL 10 MG IV Q6H PRN MEMANTINE HCL 5 MG PO BID MONTELUKAST SODIUM 10 MG PO BEDTIME SOD FERRIC GLUC COMPLEX/SUC with/in SODI UM CHLORIDE 100 mL BAG 125 MG IV DAILY carvediloL 25 MG PO BID MEALS SODIUM CHLORIDE 0.9% 500 ML IV .Q24H MULTIVITAMIN WITH FOLIC ACID 1 TAB PO DAILY PANTOPRAZOLE with/in SODIUM CHLORIDE 100 mL BAG 80 MG IV Q10H GALANTAMINE HYDROBROMIDE 8 MG PO 0800,1800 ATORVASTATIN CALCIUM 80 MG PO BEDTIME LEVOTHYROXINE SODIUM 25 MCG PO DAILY@0600 ONDANSETRON HCL/PF 4 MG IV Q6H PRN LABS COMPREHENSIVE METABOLIC PANEL (02/09/23 09:26) SODIUM 137 POTASSIUM 3.5 CHLORIDE 107 CARBON DIOXIDE 22 ANION GAP 11.5 GLUCOSE 103H H BLOOD UREA NITROGEN 50H H GLOMERULAR FILTRATION RATE 18 L CREATININE 2.5H H BUN/CREATININE RATIO 20.0 TOTAL PROTEIN 5.1 L ALBUMIN 2.3 L CALCIUM 8.1 L BILIRUBIN TOTAL 0.7 SGOT/AST 19 SGPT/ALT 18 ALKALINE PHOSPHATASE 58 CBC W/AUTO DIFF (02/09/23 09:26) WHITE BLOOD CELL 7.7 RED BLOOD CELL 2.72 L HEMOGLOBIN 8.1L L HEMATOCRIT 25.3L L MEAN CELL VOLUME 93 MEAN CELL HGB 29.8 MEAN CELL HGB CONCENTRATION 32.0 RED CELL DISTRIBUTION WIDTH 18.2 H PLATELET COUNT 179 MEAN PLATELET VOLUME 12.1 NEUTROPHIL % 79.2 H IMMATURE GRANULOCYTE % 0.4 LYMPHOCYTE % 9.4 L MONOCYTE % 10.1 EOSINOPHIL % 0.8 BASOPHIL % 0.1 NUCLEATED RBC % 0.0 NEUTROPHIL # 6.07 IMMATURE GRANULOCYTE # 0.030 LYMPHOCYTE # 0.72 L MONOCYTE # 0.77 EOSINOPHIL # 0.06 BASOPHIL # 0.01 NUCLEATED RBC # 0.000 Signed in PatientKeeper by Vishal Macario MD on 02/09/23 at 14:27 Electronically Signed by Vishal Macario MD o n 02/09/23 at 1427 ATTENTION *EDITS and/or ADDENDA must be made in Patient Ke eper for this note. * * Edits and ammendments created in [facility] are not visible * * in Patient Keeper or the legal medical record ([facility]). * [facility] #: [id number] END OF REPORT 2023-02-09 [id number] [facility] 12:18:00-00:00 [id number] [facility] [address] PATIENT NAME: CASEY LYONS ADMIT DATE: 3 ACCOUNT NO: [id number] ROOM NO: [id number] AGE: 87 REPORT TYPE: ENDOSCOPY REPORT SEX: F ADMITTING PHYSICIAN:Linda Whitaker MD ATTENDING PHYSICIAN:Linda Whitaker MD Patient Name: Serena Casey Attending MD: Sam Bruno MD Procedure Date: 02/09/2023 12:18 PM 56 Date of : 07/25 Admit Type: Inpatient Age: 87 Procedure: Upper GI endoscopy Indications: Iron deficiency anemia Providers: Bennie Bruno MD, Evangelina Pollock RN (Nurse), Cesar Kirby, Sailing Officer (Voice Over Announcer), Varsha Santiago, Voice Over Announcer (Voice Over Announcer), Yuri Brody MD (Anesthesiologist) Referring MD: Linda Whitaker Md Medicines: Monitored Anesthesia Care Procedure: Pre-Anesthesia Assessment: - Prior to the procedure, a History and Physic al was performed, and patient medications and allergie s were reviewed. The patient is competent. The risks a nd benefits of the procedure and the sedation opti ons and risks were discussed with the patient. All ques tions were answered and informed consent was obtained . Patient identification and proposed procedure w ere verified by the physician and the anesthesiolog ist in the pre-procedure area in the endoscopy suite. Mental Status Examination: normal. Airway Examination: normal oropharyngeal airway and neck mobility. Respira tory Examination: clear to auscultation. CV Examinat ion: normal. Prophylactic Antibiotics: The patient d oes not require prophylactic antibiotics. Prior Anticoagulants: The patient has taken no antico agulant or antiplatelet agents. ASA Grade Assessment: IV - A patient with severe systemic disease that is a constant threat to life. After reviewing the ri sks and benefits, the patient was deemed in satisfactor y condition to undergo the procedure. The anesthe margarito plan was to use monitored anesthesia care (MAC ). Immediately prior to administration of medicati ons, the patient was re-assessed for adequacy to rec eive sedatives. The heart rate, respiratory rate, ox ygen saturations, blood pressure, adequacy of pulmon jennifer PATIENT NAME: [id number] [id number] ventilation, and response to care were monitore d throughout the procedure. The physical status o f the patient was re-assessed after the procedure. The benefits, risks, and alternatives to the pr ocedure were discussed and informed consent was obtaine d from the patient. I've assesed the patient on this d ate and reviewed the medical history, drug history, and previous anesthesia experience. After obtaining informed consent, the scope was passed under di rect vision. Throughout the procedure, the patient's blood pressure, pulse, and oxygen saturations were mo nitored continuously.s were monitored continuously. The Endoscope was introduced through the mouth, and advanced to the second part of duodenum. The up per GI endoscopy was accomplished without difficulty. The patient tolerated the procedure well. Findings: The examined duodenum was normal. The esophagus was normal. A few 2 mm angioectasias with stigmata of recen t bleeding were found in the stomach. Coagulation for hemostasis using argon beam at 0.8 liters/minut e and 30 mckeon was successful. Estimated blood loss w as minimal. Complications: No immediate complications. Estimated Blood Loss: Estimated blood loss: none . Impressions: - Normal examined duodenum. - Normal esophagus. - A few recently bleeding angioectasias in the stomach. Treated with argon beam coagulation. - No specimens collected. Recommendation: - Return patient to [facility] for ongoing care. - Resume previous diet. - Continue present medications. - Await pathology results. - Repeat upper endoscopy PRN for surveillance. - Return to GI office in 4 weeks. Baldomero Bruno MD Bennie Bruno MD 02/09/2023 12:35:08 PM This report has been signed electronically. Number of Addenda: 0 Note Initiated On: 02/09/2023 12:18 PM Procedure Code(s): --- Professional --- 70832, Esophagogastroduodenoscopy, flexible, transoral; with control of bleeding, any method Diagnosis Code(s): --- Professional --- K31.811, Angiodysplasia of stomach and duodenum with bleeding D50.9, Iron deficiency anemia, unspecified CPT copyright 2020 [employer]. All rights reserved. PATIENT NAME: CASEY LYONS 4585 The codes documented in this report are prelimin jennifer and upon inspector technician review may be revised to meet current compliance requiremen ts. Provation {[id number] ProVation FT PDF Electronically Signed by Bennie Bruno MD on 01/22 at 1235 PATIENT NAME: CASEY LYONS 4583 2023-02-09 [facility] 10:49:00-00:00 [facility] ([facility]) Hospitalist Progress Note REPORT #: [id number] REPORT STATUS: Signed DATE: 02/09/23 TIME: 1049 PATIENT: CASEY LYONS UNIT #: [id number] ROOM #: [id number] BED: 1 : 37 AGE: 87 SEX: F ATTEND: Linda Whitaker MD ADM AUTHOR: Linda Whitaker MD ATTENTION *EDITS and/or ADDENDA must be made in Patient Ke eper for this note. * * Edits and ammendments created in [employer] are not visible * * in Patient Keeper or the legal medical record (HPF). * -- ASSESSMENT AND PLAN -- GENERAL ASSESSMENT: Assessment and plan: 1--NSTEMI: Complains of off-and-on chest pain and shortness of breath---denies any chest pain Elevated troponin ECHO: Ejection Fraction = 45-50% -Serial troponin monitoring -Continuous telemetry monitoring -Hold aspirin given concerns of GI bleed -Sublingual nitroglycerin as needed for chest pa in -Cardiology consulted follow recommendations Moderate to high perioperative cardiovascular risk, but not prohibitive---cardio recs appreciated Extensive discussion was held with the cindy t, son at bedside and cardiology---wants medical management,/hold off on aggressive intervention 2--acute on chronic anemia--iron deficiency: 3--possible GI bleed: S/p PRBC transfusion -IV iron -Trend H H -Transfuse PRBC if Hgb< 7 -Monitor for signs and symptoms of bleeding -Hold aspirin and Eliquis -Plan for EGD -GI on board, follow recommendations 4--carotid artery disease: 5--coronary artery disease: 6--peripheral artery disease: -Continue home medications -Hold aspirin and Eliquis -Cardiology consulted follow recommendations 7--hypothyroidism: TSH 3.54 -Continue home dose Synthroid 8--hypertension: -Monitor vitals -Continue home medications and adjust as needed 9--dyslipidemia: -Continue statin 10--CKD--unknown baseline creatinine: -Avoid nephrotoxic medication -Trend BMP 11--CVA, dementia: -Continue home medication -Supportive care DVT prophylaxis SCDs GI prophylaxis PPI CODE STATUS full code Disposition pending clinical course and consulti ng services clearance Time Spent 40 minutes -- SUBJECTIVE -- PATIENT NARRATIVE: Pt seen and examined by me in the morning. Hemod ynamically stable, Cardiology has risk stratified, GI planning for endoscopy. -- OBJECTIVE -- VITALS (02/08 10:50 - 02/09 10:50): Temperature F: 97.9 Temperature C: 36.4 (36.4 - 37.1) Temperature source: Oral Pulse Rate 53 (50 - 65) Respiratory rate: 18 (16 - 20) Blood pressure: 149/72 (129/53 - 149/72) Blood pressure source: Monitor I/Os (02/08 07:00 - 02/09 07:00): Net 700.00 Intake 700.00 -EXAM- GENERAL: Well developed, in no acute distress. HEAD: Normocephalic, atraumatic. EYES: PERRL, lids normal. NECK: Supple, No masses. CHEST: Grossly normal appearance. LUNGS: Clear bilaterally with normal respiratory effort. HEART: Regular rate and rhythm, normal S1, S2. ABDOMEN: Soft, non-tender, no masses noted. MUSCULOSKELETAL: No deformity. NEUROLOGICAL: No focal deficits. -- DATA -- MEDICATIONS ACETAMINOPHEN 650 MG PO Q4H PRN amLODIPine BESYLATE 5 MG PO DAILY morphine SULFATE 2 MG IV Q3H PRN hydrALAZINE HCL 10 MG IV Q6H PRN MEMANTINE HCL 5 MG PO BID MONTELUKAST SODIUM 10 MG PO BEDTIME SOD FERRIC GLUC COMPLEX/SUC with/in SODI UM CHLORIDE 100 mL BAG 125 MG IV DAILY carvediloL 25 MG PO BID MEALS SODIUM CHLORIDE 0.9% 500 ML IV .Q24H MULTIVITAMIN WITH FOLIC ACID 1 TAB PO DAILY PANTOPRAZOLE with/in SODIUM CHLORIDE 100 mL BAG 80 MG IV Q10H GALANTAMINE HYDROBROMIDE 8 MG PO 0800,1800 ATORVASTATIN CALCIUM 80 MG PO BEDTIME LEVOTHYROXINE SODIUM 25 MCG PO DAILY@0600 ONDANSETRON HCL/PF 4 MG IV Q6H PRN LABS COMPREHENSIVE METABOLIC PANEL (02/09/23 09:26) SODIUM 137 POTASSIUM 3.5 CHLORIDE 107 CARBON DIOXIDE 22 ANION GAP 11.5 GLUCOSE 103H H BLOOD UREA NITROGEN 50H H GLOMERULAR FILTRATION RATE 18 L CREATININE 2.5H H BUN/CREATININE RATIO 20.0 TOTAL PROTEIN 5.1 L ALBUMIN 2.3 L CALCIUM 8.1 L BILIRUBIN TOTAL 0.7 SGOT/AST 19 SGPT/ALT 18 ALKALINE PHOSPHATASE 58 CBC W/AUTO DIFF (02/09/23 09:26) WHITE BLOOD CELL 7.7 RED BLOOD CELL 2.72 L HEMOGLOBIN 8.1L L HEMATOCRIT 25.3L L MEAN CELL VOLUME 93 MEAN CELL HGB 29.8 MEAN CELL HGB CONCENTRATION 32.0 RED CELL DISTRIBUTION WIDTH 18.2 H PLATELET COUNT 179 MEAN PLATELET VOLUME 12.1 NEUTROPHIL % 79.2 H IMMATURE GRANULOCYTE % 0.4 LYMPHOCYTE % 9.4 L MONOCYTE % 10.1 EOSINOPHIL % 0.8 BASOPHIL % 0.1 NUCLEATED RBC % 0.0 NEUTROPHIL # 6.07 IMMATURE GRANULOCYTE # 0.030 LYMPHOCYTE # 0.72 L MONOCYTE # 0.77 EOSINOPHIL # 0.06 BASOPHIL # 0.01 NUCLEATED RBC # 0.000 -- ATTESTATION -- TIME SPENT ON PATIENT CARE: - Direct 40 minutes - > 50% of time spent on Counseling/Care Coordi nation CARE ACTIVITIES / CARE COORDINATION: - I have reviewed the history and repeated the up elements - I have seen and examined this patient - I have reviewed the progress in the clinical course since the last examination - I have discussed the preet ent's condition with other members of the care team Signed in PatientKeeper by Linda Whitaker MD on at 10:50 Electronically Signed by Linda Whitaker MD on 01/22 at 1050 ATTENTION *EDITS and/or ADDENDA must be made in Patient Ke eper for this note. * * Edits and ammendments created in [employer] are not visible * * in Patient Keeper or the legal medical record (HPF). * RPT #: [id number] END OF REPORT 2023-02-09 [facility] 09:00:00-00:00 [facility] ([facility]) Gastroenterology Prog. Note REPORT #: [id number] REPORT STATUS: Signed DATE: 02/09/23 TIME: 899 PATIENT: CASEY LYONS UNIT #: [id number] ROOM #: [id number] BED: 1 : 37 AGE: 87 SEX: F ATTEND: Linda Whitaker MD ADM AUTHOR: Bennie Bruno MD ATTENTION *EDITS and/or ADDENDA must be made in Patient Ke eper for this note. * * Edits and ammendments created in [facility] are not visible * * in Patient Keeper or the legal medical record ([facility]). * -- ASSESSMENT AND PLAN -- PROBLEMS: 1: Anemia A/P: EGD today for RAFAELA. 2: Elevated troponin A/P: Cardiology consulted. 3: CKD (chronic kidney disease) A/P: Nephro on board. 4: Dementia A/P: stable dementia. -- SUBJECTIVE -- CHIEF COMPLAINT: Anemia HPI: I have spoken to the patients RN and heard the p atient issues in the past 24hrs. There have been no changes in GI point of view. No new complains. No Melena or Hematochezia or Hematemesis -- OBJECTIVE -- VITALS (02/08 23:45 - 02/09 23:45): Temperature C: 36.6 (36.2 - 36.7) Temperature source: Oral Pulse Rate 50 (50 - 64) Respiratory rate: 18 (16 - 20) Blood pressure: 107/52 (107/52 - 149/72) I/Os (02/08 07:00 - 02/09 07:00): Net 700.00 Intake 700.00 -EXAM- GENERAL: Well developed, in no acute distress. HEAD: Normocephalic, atraumatic. EYES: PERRL, lids normal. NECK: Supple, No masses. CHEST: Grossly normal appearance. LUNGS: Clear bilaterally with normal respiratory effort. HEART: Regular rate and rhythm, normal S1, S2. ABDOMEN: Soft, non-tender, no masses noted. MUSCULOSKELETAL: No deformity. NEUROLOGICAL: No focal deficits. -- DATA -- MEDICATIONS ACETAMINOPHEN 650 MG PO Q4H PRN amLODIPine BESYLATE 5 MG PO DAILY morphine SULFATE 2 MG IV Q3H PRN hydrALAZINE HCL 10 MG IV Q6H PRN MEMANTINE HCL 5 MG PO BID MONTELUKAST SODIUM 10 MG PO BEDTIME SOD FERRIC GLUC COMPLEX/SUC with/in SODI UM CHLORIDE 100 mL BAG 125 MG IV DAILY carvediloL 25 MG PO BID MEALS SODIUM CHLORIDE 0.9% 500 ML IV .Q24H MULTIVITAMIN WITH FOLIC ACID 1 TAB PO DAILY PANTOPRAZOLE with/in SODIUM CHLORIDE 100 mL BAG 80 MG IV Q10H GALANTAMINE HYDROBROMIDE 8 MG PO 0800,1800 ATORVASTATIN CALCIUM 80 MG PO BEDTIME LEVOTHYROXINE SODIUM 25 MCG PO DAILY@0600 ONDANSETRON HCL/PF 4 MG IV Q6H PRN LABS COMPREHENSIVE METABOLIC PANEL (02/09/23 09:26) SODIUM 137 POTASSIUM 3.5 CHLORIDE 107 CARBON DIOXIDE 22 ANION GAP 11.5 GLUCOSE 103H H BLOOD UREA NITROGEN 50H H GLOMERULAR FILTRATION RATE 18 L CREATININE 2.5H H BUN/CREATININE RATIO 20.0 TOTAL PROTEIN 5.1 L ALBUMIN 2.3 L CALCIUM 8.1 L BILIRUBIN TOTAL 0.7 SGOT/AST 19 SGPT/ALT 18 ALKALINE PHOSPHATASE 58 CBC W/AUTO DIFF (02/09/23 09:26) WHITE BLOOD CELL 7.7 RED BLOOD CELL 2.72 L HEMOGLOBIN 8.1L L HEMATOCRIT 25.3L L MEAN CELL VOLUME 93 MEAN CELL HGB 29.8 MEAN CELL HGB CONCENTRATION 32.0 RED CELL DISTRIBUTION WIDTH 18.2 H PLATELET COUNT 179 MEAN PLATELET VOLUME 12.1 NEUTROPHIL % 79.2 H IMMATURE GRANULOCYTE % 0.4 LYMPHOCYTE % 9.4 L MONOCYTE % 10.1 EOSINOPHIL % 0.8 BASOPHIL % 0.1 NUCLEATED RBC % 0.0 NEUTROPHIL # 6.07 IMMATURE GRANULOCYTE # 0.030 LYMPHOCYTE # 0.72 L MONOCYTE # 0.77 EOSINOPHIL # 0.06 BASOPHIL # 0.01 NUCLEATED RBC # 0.000 Signed in PatientKeeper by Bennie Bruno MD on at 23:46 Electronically Signed by Bennie Bruno MD on 01/22 at 2346 ATTENTION *EDITS and/or ADDENDA must be made in Patient Ke eper for this note. * * Edits and ammendments created in [facility] are not visible * * in Patient Keeper or the legal medical record (HPF). * RPT #: [id number] END OF REPORT 2023-02-08 [facility] 14:19:00-00:00 [facility] ([facility]) Cardiology Progress Notes REPORT #: [id number] REPORT STATUS: Signed DATE: 02/08/23 TIME: 1419 PATIENT: CASEY LYONS UNIT #: [id number] ROOM #: [id number] BED: 1 : 37 AGE: 87 SEX: F ATTEND: Lnida Whitaker MD ADM AUTHOR: Vishal Macario MD ATTENTION *EDITS and/or ADDENDA must be made in Patient Ke eper for this note. * * Edits and ammendments created in [employer] are not visible * * in Patient Keeper or the legal medical record (HPF). * -- ASSESSMENT AND PLAN -- GENERAL ASSESSMENT: doing okay no chest pain PROBLEMS: 1: Preop cardiovascular exam A/P: above average risk okay to proceed from cv standpoint 2: NSTEMI (non-ST elevated myocardial infarction ) A/P: 2y to severe anemia also has hx of prior CAD and stents probably type II NSTEMI poor cath candidate for revascularization due to anemia/gibleed. 3: Anemia A/P: severe recurrent s/p repeated transfusions per GI 4: Hypertension A/P: adjust meds as needed. 5: Hyperlipidemia LDL goal <70 A/P: on statin 6: Cerebrovascular accident, old A/P: unclear residual deficits ? multi-infarct dementia. 7: Peripheral vascular disease A/P: s/p bilateral LE bypasses? 8: Chronic kidney disease A/P: stage IV ADDITIONAL COMMENTS: Plan: Above average preoperative risk Okay to proceed from CV standpoint Will address any CV issues as they arise -- SUBJECTIVE -- PATIENT NARRATIVE: seen the room no acute cv events no angina -REVIEW OF SYSTEMS- COMMENT: 14 ROS negative except for HPI -- OBJECTIVE -- VITALS (02/07 14:19 - 02/08 14:19): Temperature C: 37.1 (36.7 - 37.1) Temperature source: Oral Pulse Rate 57 (52 - 68) Respiratory rate: 18 (16 - 19) Blood pressure: 131/53 (123/53 - 144/64) I/Os (02/07 07:00 - 02/08 07:00): Net 500 Intake 500 -EXAM- OTHER: HEENT: nc/at. pupils equal. NECK: no jvd. no bruits LUNGS: clear to auscultation bilaterally CARDIAC: regular rate and rhythm. normal s1 and s2. 2/6 systolic murmur ABDOMEN: soft. normal bowel sounds. not tender. EXTREMITIES: no edema. absent pulses.. NEUROLOGY: alert and oriented x 1 older female. appears weak. appears pale. -- DATA -- MEDICATIONS ACETAMINOPHEN 650 MG PO Q4H PRN amLODIPine BESYLATE 5 MG PO DAILY morphine SULFATE 2 MG IV Q3H PRN hydrALAZINE HCL 10 MG IV Q6H PRN MEMANTINE HCL 5 MG PO BID MONTELUKAST SODIUM 10 MG PO BEDTIME SOD FERRIC GLUC COMPLEX/SUC with/in SODI UM CHLORIDE 100 mL BAG 125 MG IV DAILY carvediloL 25 MG PO BID MEALS MULTIVITAMIN WITH FOLIC ACID 1 TAB PO DAILY PANTOPRAZOLE with/in SODIUM CHLORIDE 100 mL BAG 80 MG IV Q10H GALANTAMINE HYDROBROMIDE 8 MG PO 0800,1800 SODIUM CHLORIDE 0.9% 500 ML IV .Q24H ATORVASTATIN CALCIUM 80 MG PO BEDTIME LEVOTHYROXINE SODIUM 25 MCG PO DAILY@0600 ONDANSETRON HCL/PF 4 MG IV Q6H PRN Signed in PatientKeeper by Vishal Macario MD on 02/08/23 at 15:47 Electronically Signed by Vishal Macario MD o n 02/08/23 at 1547 ATTENTION *EDITS and/or ADDENDA must be made in Patient Ke eper for this note. * * Edits and ammendments created in [facility] are not visible * * in Patient Keeper or the legal medical record (HPF). * [facility] #: [id number] END OF REPORT 2023-02-08 [facility] 12:02:00-00:00 [facility] ([facility]) Gastroenterology Prog. Note REPORT #: [id number] REPORT STATUS: Signed DATE: 02/08/23 TIME: 1202 PATIENT: CASEY LYONS UNIT #: [id number] ROOM #: [id number] BED: 1 : 37 AGE: 87 SEX: F ATTEND: Linda Whitaker MD ADM AUTHOR: Bennie Bruno MD ATTENTION *EDITS and/or ADDENDA must be made in Patient Ke eper for this note. * * Edits and ammendments created in [employer] are not visible * * in Patient Keeper or the legal medical record (HPF). * -- ASSESSMENT AND PLAN -- PROBLEMS: 1: Anemia A/P: RAFAELA and will arrange for EGD tomorrow. Fami ly do not want Colonoscopy. Will arrange EGD tomorrow. 2: Elevated troponin A/P: Cardiology consulted. 3: CKD (chronic kidney disease) A/P: Nephro on board. 4: Dementia A/P: stable dementia. -- SUBJECTIVE -- CHIEF COMPLAINT: Anemia HPI: Stable Hb. No sign of GI bleed. -- OBJECTIVE -- VITALS (02/07 12:02 - 02/08 12:02): Temperature C: 36.7 (36.7 - 36.8) Temperature source: Oral Pulse Rate 52 (52 - 68) Respiratory rate: 18 (16 - 19) Blood pressure: 144/64 (123/53 - 144/64) I/Os (02/07 07:00 - 02/08 07:00): Net 500 Intake 500 -EXAM- GENERAL: Well developed, in no acute distress. HEAD: Normocephalic, atraumatic. EYES: PERRL, lids normal. NECK: Supple, No masses. CHEST: Grossly normal appearance. LUNGS: Clear bilaterally with normal respiratory effort. HEART: Regular rate and rhythm, normal S1, S2. ABDOMEN: Soft, non-tender, no masses noted. MUSCULOSKELETAL: No deformity. NEUROLOGICAL: No focal deficits. -- DATA -- MEDICATIONS ACETAMINOPHEN 650 MG PO Q4H PRN amLODIPine BESYLATE 5 MG PO DAILY morphine SULFATE 2 MG IV Q3H PRN hydrALAZINE HCL 10 MG IV Q6H PRN MEMANTINE HCL 5 MG PO BID MONTELUKAST SODIUM 10 MG PO BEDTIME SOD FERRIC GLUC COMPLEX/SUC with/in SODI UM CHLORIDE 100 mL BAG 125 MG IV DAILY carvediloL 25 MG PO BID MEALS MULTIVITAMIN WITH FOLIC ACID 1 TAB PO DAILY PANTOPRAZOLE with/in SODIUM CHLORIDE 100 mL BAG 80 MG IV Q10H GALANTAMINE HYDROBROMIDE 8 MG PO 0800,1800 SODIUM CHLORIDE 0.9% 500 ML IV .Q24H ATORVASTATIN CALCIUM 80 MG PO BEDTIME LEVOTHYROXINE SODIUM 25 MCG PO DAILY@0600 ONDANSETRON HCL/PF 4 MG IV Q6H PRN LABS CBC W/AUTO DIFF (02/08/23 06:19) WHITE BLOOD CELL 8.8 RED BLOOD CELL 2.66 L HEMOGLOBIN 7.9L L HEMATOCRIT 24.5L L MEAN CELL VOLUME 92 MEAN CELL HGB 29.7 MEAN CELL HGB CONCENTRATION 32.2 RED CELL DISTRIBUTION WIDTH 18.1 H PLATELET COUNT 164 MEAN PLATELET VOLUME 12.6 NEUTROPHIL % 80.3 H IMMATURE GRANULOCYTE % 0.7 LYMPHOCYTE % 8.6 L MONOCYTE % 9.5 EOSINOPHIL % 0.8 BASOPHIL % 0.1 NUCLEATED RBC % 0.0 NEUTROPHIL # 7.06 H IMMATURE GRANULOCYTE # 0.060 LYMPHOCYTE # 0.76 L MONOCYTE # 0.84 H EOSINOPHIL # 0.07 BASOPHIL # 0.01 NUCLEATED RBC # 0.000 COMPREHENSIVE METABOLIC PANEL (02/08/23 06:19) SODIUM 136 POTASSIUM 3.5 CHLORIDE 107 CARBON DIOXIDE 22 ANION GAP 10.5 GLUCOSE 101H H BLOOD UREA NITROGEN 54H H GLOMERULAR FILTRATION RATE 20 L CREATININE 2.3H H BUN/CREATININE RATIO 23.5 H TOTAL PROTEIN 4.8 L ALBUMIN 2.2 L CALCIUM 8.5 BILIRUBIN TOTAL 0.9 SGOT/AST 21 SGPT/ALT 13 ALKALINE PHOSPHATASE 46 Signed in PatientKeeper by Bennie Bruno MD on at 12:06 Electronically Signed by Bennie Bruno MD on 01/21 03/15 at 1206 ATTENTION *EDITS and/or ADDENDA must be made in Patient Ke eper for this note. * * Edits and ammendments created in [facility] are not visible * * in Patient Keeper or the legal medical record (HPF). * RPT #: [id number] END OF REPORT 2023-02-08 [facility] 11:58:00-00:00 [facility] ([facility]) Hospitalist Progress Note REPORT #: [id number] REPORT STATUS: Signed DATE: 02/08/23 TIME: 1158 PATIENT: CASEY LYONS UNIT #: [id number] ROOM #: [id number] BED: 1 : 37 AGE: 87 SEX: F ATTEND: Linda Whitaker MD ADM AUTHOR: Linda Whitaker MD ATTENTION *EDITS and/or ADDENDA must be made in Patient Ke eper for this note. * * Edits and ammendments created in [employer] are not visible * * in Patient Keeper or the legal medical record (HPF). * -- ASSESSMENT AND PLAN -- GENERAL ASSESSMENT: Assessment and plan: 1--NSTEMI: Complains of off-and-on chest pain and shortness of breath---denies any chest pain Elevated troponin ECHO: Ejection Fraction = 45-50% -Serial troponin monitoring -Continuous telemetry monitoring -Hold aspirin given concerns of GI bleed -Sublingual nitroglycerin as needed for chest pa in -Cardiology consulted follow recommendations Moderate to high perioperative cardiovascular risk, but not prohibitive---cardio recs appreciated Extensive discussion was held with the cindy rodríguez, son at bedside and cardiology---wants medical management,/hold off on aggressive intervention 2--acute on chronic anemia--iron deficiency: 3--possible GI bleed: S/p PRBC transfusion -IV iron -Trend H H -Transfuse PRBC if Hgb< 7 -Monitor for signs and symptoms of bleeding -Hold aspirin and Eliquis -GI on board, follow recommendations 4--carotid artery disease: 5--coronary artery disease: 6--peripheral artery disease: -Continue home medications -Hold aspirin and Eliquis -Cardiology consulted follow recommendations 7--hypothyroidism: TSH 3.54 -Continue home dose Synthroid 8--hypertension: -Monitor vitals -Continue home medications and adjust as needed 9--dyslipidemia: -Continue statin 10--CKD--unknown baseline creatinine: -Avoid nephrotoxic medication -Trend BMP 11--CVA, dementia: -Continue home medication -Supportive care DVT prophylaxis SCDs GI prophylaxis PPI CODE STATUS full code Disposition pending clinical course and consulti ng services clearance Time Spent 40 minutes -- SUBJECTIVE -- PATIENT NARRATIVE: Pt seen and examined by me in the morning. Hemod ynamically stable, Pending GI workup. -- OBJECTIVE -- VITALS (02/07 11:59 - 02/08 11:59): Temperature C: 36.7 (36.7 - 36.8) Temperature source: Oral Pulse Rate 52 (52 - 68) Respiratory rate: 18 (16 - 19) Blood pressure: 144/64 (123/53 - 144/64) I/Os (02/07 07:00 - 02/08 07:00): Net 500 Intake 500 -EXAM- GENERAL: Well developed, in no acute distress. HEAD: Normocephalic, atraumatic. EYES: PERRL, lids normal. NECK: Supple, No masses. CHEST: Grossly normal appearance. LUNGS: Clear bilaterally with normal respiratory effort. HEART: Regular rate and rhythm, normal S1, S2. ABDOMEN: Soft, non-tender, no masses noted. MUSCULOSKELETAL: No deformity. NEUROLOGICAL: No focal deficits. -- DATA -- MEDICATIONS ACETAMINOPHEN 650 MG PO Q4H PRN amLODIPine BESYLATE 5 MG PO DAILY morphine SULFATE 2 MG IV Q3H PRN hydrALAZINE HCL 10 MG IV Q6H PRN MEMANTINE HCL 5 MG PO BID MONTELUKAST SODIUM 10 MG PO BEDTIME SOD FERRIC GLUC COMPLEX/SUC with/in SODI UM CHLORIDE 100 mL BAG 125 MG IV DAILY carvediloL 25 MG PO BID MEALS MULTIVITAMIN WITH FOLIC ACID 1 TAB PO DAILY PANTOPRAZOLE with/in SODIUM CHLORIDE 100 mL BAG 80 MG IV Q10H GALANTAMINE HYDROBROMIDE 8 MG PO 0800,1800 SODIUM CHLORIDE 0.9% 500 ML IV .Q24H ATORVASTATIN CALCIUM 80 MG PO BEDTIME LEVOTHYROXINE SODIUM 25 MCG PO DAILY@0600 ONDANSETRON HCL/PF 4 MG IV Q6H PRN LABS CBC W/AUTO DIFF (02/08/23 06:19) WHITE BLOOD CELL 8.8 RED BLOOD CELL 2.66 L HEMOGLOBIN 7.9L L HEMATOCRIT 24.5L L MEAN CELL VOLUME 92 MEAN CELL HGB 29.7 MEAN CELL HGB CONCENTRATION 32.2 RED CELL DISTRIBUTION WIDTH 18.1 H PLATELET COUNT 164 MEAN PLATELET VOLUME 12.6 NEUTROPHIL % 80.3 H IMMATURE GRANULOCYTE % 0.7 LYMPHOCYTE % 8.6 L MONOCYTE % 9.5 EOSINOPHIL % 0.8 BASOPHIL % 0.1 NUCLEATED RBC % 0.0 NEUTROPHIL # 7.06 H IMMATURE GRANULOCYTE # 0.060 LYMPHOCYTE # 0.76 L MONOCYTE # 0.84 H EOSINOPHIL # 0.07 BASOPHIL # 0.01 NUCLEATED RBC # 0.000 COMPREHENSIVE METABOLIC PANEL (02/08/23 06:19) SODIUM 136 POTASSIUM 3.5 CHLORIDE 107 CARBON DIOXIDE 22 ANION GAP 10.5 GLUCOSE 101H H BLOOD UREA NITROGEN 54H H GLOMERULAR FILTRATION RATE 20 L CREATININE 2.3H H BUN/CREATININE RATIO 23.5 H TOTAL PROTEIN 4.8 L ALBUMIN 2.2 L CALCIUM 8.5 BILIRUBIN TOTAL 0.9 SGOT/AST 21 SGPT/ALT 13 ALKALINE PHOSPHATASE 46 -- ATTESTATION -- TIME SPENT ON PATIENT CARE: - Direct 40 minutes - > 50% of time spent on Counseling/Care Coordi nation CARE ACTIVITIES / CARE COORDINATION: - I have reviewed the history and repeated the up elements - I have seen and examined this patient - I have reviewed the progress in the clinical course since the last examination - I have discussed the preet ent's condition with other members of the care team Signed in PatientKeeper by Linda Whitaker MD on at 12:00 Electronically Signed by Linda Whitaker MD on 01/21 03/15 at 1200 ATTENTION *EDITS and/or ADDENDA must be made in Patient Ke eper for this note. * * Edits and ammendments created in [employer] are not visible * * in Patient Keeper or the legal medical record (HPF). * RPT #: [id number] END OF REPORT 2023-02-07 [facility] - [facility] 15:49:19-00:00 Noted. Electronically signed by Joelle Cohen MA a t 02/07/2023 3:49 PM CDT 2023-02-07 [facility] 14:49:00-00:00 [facility]) Intervent. Card. Progress Note REPORT #: [id number] REPORT STATUS: Signed DATE: 02/07/23 TIME: 1449 PATIENT: CASEY LYONS UNIT #: [id number] ROOM #: [id number] BED: 1 : 37 AGE: 87 SEX: F ATTEND: Linda Whitaker MD ADM AUTHOR: Berto Pichardo MD ATTENTION *EDITS and/or ADDENDA must be made in Patient Ke eper for this note. * * Edits and ammendments created in [employer] are not visible * * in Patient Keeper or the legal medical record (HPF). * -- ASSESSMENT AND PLAN -- PROBLEMS: 1: NSTEMI (non-ST elevated myocardial infarction ) A/P: 2y to severe anemia also has hx of prior CAD and stents probably type II NSTEMI poor cath candidate for revascularization due to anemia/gibleed. 2: Anemia A/P: severe recurrent s/p repeated transfusions per GI 3: Hypertension A/P: adjust meds as needed. 4: Hyperlipidemia LDL goal <70 A/P: on statin 5: Cerebrovascular accident, old A/P: unclear residual deficits ? multi-infarct dementia. 6: Peripheral vascular disease A/P: s/p bilateral LE bypasses? 7: Chronic kidney disease A/P: stage IV ADDITIONAL COMMENTS: cannot give asa or clopidogrel due to anemia/gib leed poor cath candidate given ckd but perhap s a diagnostic cath would be okay with limited contrast to settle t he issue of whether her recurrent nstemi are due to occlusive cad or from demand ischemia. -- SUBJECTIVE -- CHIEF COMPLAINT: HISTORY OF PRESENT ILLNESS: Ms. Lyons is an 87-year-old fairly complex patient who has a past medical history significant for C AD, status post stent done anywhere from 6-____ years ago. Accordin g to his son, he is not well aware and the mother has some dementia and does not recall very well. Aside from the stent, he knows of no other cardiac stents or pr ocedures since then, but she does have bypass on bilateral lower extremities. She also has a history of congestive heart failure, unknown ejection fract ion as well as a history of hypertension, hypothyroidism, right carotid gerson ry stenosis, dyslipidemia and history of 2 CVAs in the pas t, has a significant hearing difficulty, has chronic kidney disease as well as ir on deficiency anemia. She approximately in November was in [place], had a similar ep isode of chest pain, shortness of breath and ends up in the hospital over there and was told that no cardiac catheterization was to be done due to the severe anemia and possible GI bleed. She required transfusions over there as well and she was marquis ged medically. She returns basically with similar symptoms of chest pain, s hortness of breath starting yesterday, went to the [facility] ER and she was found to be quite anemic with a hemoglobin of 5. She was transfused 2 units an d transferred over here for further evaluation. Currently, Ms. Lyons denies any active chest pain after getting the transfusion. She looks relatively co mfortable and denies any shortness of breath, is very hard of hearing as mentioned and workup for GI bleed evaluation is underway. Her labs show a tr oponin value of 3385. This is highly sensitive troponin, s o divided by thousand would be troponin T, which is roughly around 3.4. Her hemoglobin post-transfus ion is 7.0 and her BUN is 68, creatinine is 2.5. Now, EKG over here di d not demonstrate any ST elevation [place]. There were some nonspecific ST-T wave changes and she remains in sinus rhythm on telemetry. PAST MEDICAL HISTORY: Significant for CAD, histo ry of stent 6-9 years ago, history of peripheral arterial disease, status p ost bypass of bilateral lower extremity, history of CVA x2, hypertension, hype rlipidemia, chronic kidney disease, iron deficiency anemia, prior G I bleed, hypothyroidism and congestive heart failure. PATIENT NARRATIVE: no new complaints of cp or sob weak more alert today needs assistance to walk. -REVIEW OF SYSTEMS- COMMENT: general review of systems performed and was otherwise unremarkable. -- OBJECTIVE -- VITALS (02/06 14:49 - 02/07 14:49): Temperature C: 36.5 (36.2 - 36.8) Temperature source: Oral Pulse Rate 67 (46 - 74) Respiratory rate: 18 (16 - 18) Blood pressure: 138/67 (101/58 - 147/86) I/Os (02/06 07:00 - 02/07 07:00): Net 335 Intake 335 -EXAM- OTHER: HEENT: nc/at. pupils equal. NECK: no jvd. no bruits LUNGS: clear to auscultation bilaterally CARDIAC: regular rate and rhythm. normal s1 and s2. 2/6 systolic murmur ABDOMEN: soft. normal bowel sounds. not tender. EXTREMITIES: no edema. absent pulses.. NEUROLOGY: alert and oriented x 1 older female. appears weak. appears pale. -- DATA -- MEDICATIONS amLODIPine BESYLATE 5 MG PO DAILY carvediloL 25 MG PO BID MEALS ATORVASTATIN CALCIUM 80 MG PO BEDTIME LABS HGB amp; HCT (02/06/23 22:44) HEMOGLOBIN 6.8 *L HEMATOCRIT 21.0 L HEMOGLOBIN 02/07/23 06:16 9.1 02/06/23 22:44 6.8 02/06/23 19:01 6.9 02/06/23 16:03 7.5 02/06/23 11:32 7.1 02/06/23 08:45 7.0 HEMATOCRIT 02/07/23 06:16 28.0 02/06/23 22:44 21.0 02/06/23 19:01 21.6 02/06/23 16:03 22.6 02/06/23 11:32 21.4 02/06/23 08:45 21.1 COMPREHENSIVE METABOLIC PANEL (02/07/23 06:16) SODIUM 131L L POTASSIUM 3.7 CHLORIDE 107 CARBON DIOXIDE 20L L ANION GAP 7.7 GLUCOSE 93 BLOOD UREA NITROGEN 61H H GLOMERULAR FILTRATION RATE 20 L CREATININE 2.3H H BUN/CREATININE RATIO 26.5 H TOTAL PROTEIN 5.2 L ALBUMIN 2.5 L CALCIUM 8.5 BILIRUBIN TOTAL 1.0 SGOT/AST 42 H SGPT/ALT 17 ALKALINE PHOSPHATASE 50 BLOOD UREA NITROGEN 02/07/23 06:16 61 02/06/23 08:45 69 CREATININE 02/07/23 06:16 2.3 02/06/23 08:45 2.5 TROP-I HIGH SEN (02/06/23 16:03) TROP-I HIGH SENSITIVITY 6705 *H Signed in PatientKeeper by Breto Pichardo MD o n 02/07/23 at 15:01 at 1501 ATTENTION *EDITS and/or ADDENDA must be made in Patient Ke eper for this note. * * Edits and ammendments created in [employer] are not visible * * in Patient Keeper or the legal medical record (HPF). * [facility] #: [id number] END OF REPORT 2023-02-07 Formatting of this note might be differe nt from the original. Eli Simon [facility] 14:24:54-00:00 Casey Lyons is a 87 year old female Kayley call stating pt flaca sharma needs referral for GI. She is in an assisted living facility and her Dr. Schwarz is coordinating with her agriculturist. Electronically signed by Eli Simon at 2:27 PM CDT 2023-02-07 [id number] [facility] 12:38:00-00:00 [id number] [facility] [address] PATIENT NAME: CASEY LYONS ADMIT DATE: 3 ACCOUNT NO: [id number] ROOM NO: [id number] AGE: 87 REPORT TYPE: 360 - QUERY RESPONSE DOCUMENT SEX: F ADMITTING PHYSICIAN:Linda Whitaker MD ATTENDING PHYSICIAN:Linda Whitaker MD Provider Query QUERY TEXT: Stage CKD 360MD Query related questions should be directed to: [email or web address] Based on your clinical judgment, can you further specify the stage of the chronic kidney disease located in [h and p, pn 02/06]? Pertinent lab findings are as follows: [Creatinine 2.5 - GFR (Non-AA) - 02/06/2023 0 8:45 Creatinine 2.3 - GFR (Non-AA) - 02/07/2023 06 :16] Stages of Kidney Damage according to the [employer] are defined as follows: -- Stage 1 Kidney damage with normal kidney func tion (GFR > 90) -- Stage 2 Kidney damage with mildly decreased k idney function (GFR 60-89) -- Stage 3a Kidney damage with mildly to moderat brenda decreased kidney function (GFR 45-59) -- Stage 3b Kidney damage with moderately to sev erely decreased kidney function (GFR 30-44) -- Stage 4 Kidney damage with severely decreased kidney function (GFR 15-29) -- Stage 5 Kidney failure (GFR <15 or on dialysi s) -- End Stage Renal Disease (GFR <15 or on dialys is or transplant) The patient's Clinical Indicators include: CKD - h and p, pn 02/06 Avoid nephrotoxic medication Acute renal failure with chronic kidney disease - pn 02/06 Creatinine 2.5 - GFR (Non-AA) - 02/06/2023 08 :45 Creatinine 2.3 - GFR (Non-AA) - 02/07/2023 06 :16 Options provided: -- Stage 1 -- Stage 2 -- Stage 3a -- Stage 3b -- Stage 4 -- Stage 5 -- End Stage -- Other - I will add my own diagnosis -- Dismiss - Not applicable / Not valid -- Dismiss - Clinically unable to determine / Un known -- Assign to another provider QUERY RESPONSE: The patient has stage 4 chronic kidney disease. Query created by: Vesta Hammond on 02/07/2023 9 :06 AM Electronically Signed by Linda Whitaker MD on 01/21 02/12 at 1238 PATIENT NAME: CASEY LYONS 4583 2023-02-07 [facility] 12:15:00-00:00 [facility] ([facility] Hospitalist Progress Note REPORT #: [id number] REPORT STATUS: Signed DATE: 02/07/23 TIME: 1215 PATIENT: CASYE LYONS UNIT #: [id number] ROOM #: [id number] BED: 1 : 37 AGE: 87 SEX: F ATTEND: Linda Whitaker MD ADM AUTHOR: Linda Whitaker MD ATTENTION *EDITS and/or ADDENDA must be made in Patient Ke eper for this note. * * Edits and ammendments created in [employer] are not visible * * in Patient Keeper or the legal medical record (HPF). * -- ASSESSMENT AND PLAN -- GENERAL ASSESSMENT: Assessment and plan: 1--NSTEMI: Complains of off-and-on chest pain and shortness of breath---denies any chest pain Elevated troponin ECHO: Ejection Fraction = 45-50%. -Serial troponin monitoring -Continuous telemetry monitoring -Hold aspirin given concerns of GI bleed -Sublingual nitroglycerin as needed for chest pa in -Cardiology consulted follow recommendations Moderate to high perioperative cardiovascular risk, but not prohibitive---cardio recs appreciated Extensive discussion was held with the cindy rodríguez, son at bedside and cardiology---wants medical management,/hold off on aggressive intervention 2--acute on chronic anemia--iron deficiency: 3--possible GI bleed: S/p PRBC transfusion -IV iron -Trend H H -Transfuse PRBC if Hgb< 7 -Monitor for signs and symptoms of bleeding -Hold aspirin and Eliquis -GI on board, follow recommendations 4--carotid artery disease: 5--coronary artery disease: 6--peripheral artery disease: -Continue home medications -Hold aspirin and Eliquis -Cardiology consulted follow recommendations 7--hypothyroidism: TSH 3.54 -Continue home dose Synthroid 8--hypertension: -Monitor vitals -Continue home medications and adjust as needed 9--dyslipidemia: -Continue statin 10--CKD--unknown baseline creatinine: -Avoid nephrotoxic medication -Trend BMP 11--CVA, dementia: -Continue home medication -Supportive care DVT prophylaxis SCDs GI prophylaxis PPI CODE STATUS full code Disposition pending clinical course and consulti ng services clearance Time Spent 40 minutes -- SUBJECTIVE -- PATIENT NARRATIVE: Patient was seen and evaluated by me in the morn ing, lying in the bed in no acute distress, denies any active compla ints. S/p PRBC transfusion, hemoglobin stable this morning. Iron studies reviewed, GI p trevon for EGD. Medical management for NSTEMI as per cardiology recs as per family's decision. -- OBJECTIVE -- VITALS (02/06 12:15 - 02/07 12:15): Temperature C: 36.5 (36.2 - 36.8) Temperature source: Oral Pulse Rate 67 (46 - 74) Respiratory rate: 18 (16 - 20) Blood pressure: 138/67 (101/56 - 147/86) I/Os (02/06 07:00 - 02/07 07:00): Net 335 Intake 335 -EXAM- GENERAL: Well developed, in no acute distress. HEAD: Normocephalic, atraumatic. EYES: PERRL, lids normal. NECK: Supple, No masses. CHEST: Grossly normal appearance. LUNGS: Clear bilaterally with normal respiratory effort. HEART: Regular rate and rhythm, normal S1, S2. ABDOMEN: Soft, non-tender, no masses noted. MUSCULOSKELETAL: No deformity. NEUROLOGICAL: No focal deficits. -- DATA -- MEDICATIONS ACETAMINOPHEN 650 MG PO Q4H PRN amLODIPine BESYLATE 5 MG PO DAILY morphine SULFATE 2 MG IV Q3H PRN hydrALAZINE HCL 10 MG IV Q6H PRN MEMANTINE HCL 5 MG PO BID MONTELUKAST SODIUM 10 MG PO BEDTIME SOD FERRIC GLUC COMPLEX/SUC with/in SODI UM CHLORIDE 100 mL BAG 125 MG IV DAILY carvediloL 25 MG PO BID MEALS MULTIVITAMIN WITH FOLIC ACID 1 TAB PO DAILY PANTOPRAZOLE with/in SODIUM CHLORIDE 100 mL BAG 80 MG IV Q10H GALANTAMINE HYDROBROMIDE 8 MG PO 0800,1800 SODIUM CHLORIDE 0.9% 500 ML IV .Q24H ATORVASTATIN CALCIUM 80 MG PO BEDTIME LEVOTHYROXINE SODIUM 25 MCG PO DAILY@0600 ONDANSETRON HCL/PF 4 MG IV Q6H PRN LABS CBC W/AUTO DIFF (02/07/23 06:16) WHITE BLOOD CELL 8.5 RED BLOOD CELL 3.03 L HEMOGLOBIN 9.1D L D L HEMATOCRIT 28.0L L MEAN CELL VOLUME 92 MEAN CELL HGB 30.0 MEAN CELL HGB CONCENTRATION 32.5 RED CELL DISTRIBUTION WIDTH 17.9 H PLATELET COUNT 181 MEAN PLATELET VOLUME 11.7 NEUTROPHIL % 75.7 IMMATURE GRANULOCYTE % 0.4 LYMPHOCYTE % 9.6 L MONOCYTE % 11.5 EOSINOPHIL % 2.4 BASOPHIL % 0.4 NUCLEATED RBC % 0.0 NEUTROPHIL # 6.44 IMMATURE GRANULOCYTE # 0.030 LYMPHOCYTE # 0.82 L MONOCYTE # 0.98 H EOSINOPHIL # 0.20 BASOPHIL # 0.03 NUCLEATED RBC # 0.000 COMPREHENSIVE METABOLIC PANEL (02/07/23 06:16) SODIUM 131L L POTASSIUM 3.7 CHLORIDE 107 CARBON DIOXIDE 20L L ANION GAP 7.7 GLUCOSE 93 BLOOD UREA NITROGEN 61H H GLOMERULAR FILTRATION RATE 20 L CREATININE 2.3H H BUN/CREATININE RATIO 26.5 H TOTAL PROTEIN 5.2 L ALBUMIN 2.5 L CALCIUM 8.5 BILIRUBIN TOTAL 1.0 SGOT/AST 42 H SGPT/ALT 17 ALKALINE PHOSPHATASE 50 HGB amp; HCT (02/06/23 22:44) HEMOGLOBIN 6.8 *L HEMATOCRIT 21.0 L HGB amp; HCT (02/06/23 19:01) HEMOGLOBIN 6.9 *L HEMATOCRIT 21.6 L HGB amp; HCT (02/06/23 16:03) HEMOGLOBIN 7.5 L HEMATOCRIT 22.6 L TROP-I HIGH SEN (02/06/23 16:03) TROP-I HIGH SENSITIVITY 6705 *H -- ATTESTATION -- TIME SPENT ON PATIENT CARE: - Direct 40 minutes - > 50% of time spent on Counseling/Care Coordi nation CARE ACTIVITIES / CARE COORDINATION: - I have reviewed the history and repeated the up elements - I have seen and examined this patient - I have reviewed the progress in the clinical course since the last examination - I have discussed the preet ent's condition with other members of the care team Signed in PatientKeeper by Linda Whitaker MD on at 12:25 Electronically Signed by Linda Whitaker MD on 01/21 02/12 at 1225 ATTENTION *EDITS and/or ADDENDA must be made in Patient Ke eper for this note. * * Edits and ammendments created in [facility] are not visible * * in Patient Keeper or the legal medical record (HPF). * RPT #: [id number] END OF REPORT 2023-02-07 [facility] 08:53:00-00:00 [facility]) Gastroenterology Prog. Note REPORT #: [id number] REPORT STATUS: Signed DATE: 02/07/23 TIME: 852 PATIENT: CASEY LYONS UNIT #: [id number] ROOM #: [id number] BED: 1 : 37 AGE: 87 SEX: F ATTEND: Linda Whitaker MD ADM AUTHOR: Bennie Bruno MD ATTENTION *EDITS and/or ADDENDA must be made in Patient Ke eper for this note. * * Edits and ammendments created in [employer] are not visible * * in Patient Keeper or the legal medical record (HPF). * -- ASSESSMENT AND PLAN -- PROBLEMS: 1: Anemia A/P: Based on ferritin, patient has iron def ane scarlet and anemia of chronic disease. WIll get EGD done tomorrow if cardiolog y clears her. 2: Elevated troponin A/P: Cardiology consulted. 3: CKD (chronic kidney disease) A/P: Nephro on board. 4: Dementia A/P: stable dementia. -- SUBJECTIVE -- CHIEF COMPLAINT: Anemia HPI: I have spoken to the patient and heard the patie nt issues in the past 24hrs. There have been no changes in GI point of view. No new complains. THe patient continues to make recovery. No Melena or Hematoc hezia or Hematemesis -- OBJECTIVE -- VITALS (02/06 08:53 - 02/07 08:53): Temperature C: 36.3 (36.2 - 36.8) Temperature source: Oral Pulse Rate 58 (46 - 74) Respiratory rate: 18 (16 - 20) Blood pressure: 141/86 (101/56 - 147/86) I/Os (02/06 07:00 - 02/07 07:00): Net 335 Intake 335 -EXAM- GENERAL: Well developed, in no acute distress. HEAD: Normocephalic, atraumatic. EYES: PERRL, lids normal. EARS: Hard of hearing NOSE: No deformity. MOUTH: Oropharynx without deformities. NECK: Supple, No masses. CHEST: Grossly normal appearance. LUNGS: Clear bilaterally with normal respiratory effort. HEART: Regular rate and rhythm, normal S1, S2. ABDOMEN: Soft, non-tender, no masses noted. MUSCULOSKELETAL: No deformity. NEUROLOGICAL: No focal deficits. -- DATA -- MEDICATIONS ACETAMINOPHEN 650 MG PO Q4H PRN amLODIPine BESYLATE 5 MG PO DAILY morphine SULFATE 2 MG IV Q3H PRN hydrALAZINE HCL 10 MG IV Q6H PRN MEMANTINE HCL 5 MG PO BID MONTELUKAST SODIUM 10 MG PO BEDTIME SOD FERRIC GLUC COMPLEX/SUC with/in SODI UM CHLORIDE 100 mL BAG 125 MG IV DAILY carvediloL 25 MG PO BID MEALS MULTIVITAMIN WITH FOLIC ACID 1 TAB PO DAILY PANTOPRAZOLE with/in SODIUM CHLORIDE 100 mL BAG 80 MG IV Q10H GALANTAMINE HYDROBROMIDE 8 MG PO 0800,1800 SODIUM CHLORIDE 0.9% 500 ML IV .Q24H ATORVASTATIN CALCIUM 80 MG PO BEDTIME LEVOTHYROXINE SODIUM 25 MCG PO DAILY@0600 ONDANSETRON HCL/PF 4 MG IV Q6H PRN LABS CBC W/AUTO DIFF (02/07/23 06:16) WHITE BLOOD CELL 8.5 RED BLOOD CELL 3.03 L HEMOGLOBIN 9.1D L D L HEMATOCRIT 28.0L L MEAN CELL VOLUME 92 MEAN CELL HGB 30.0 MEAN CELL HGB CONCENTRATION 32.5 RED CELL DISTRIBUTION WIDTH 17.9 H PLATELET COUNT 181 MEAN PLATELET VOLUME 11.7 NEUTROPHIL % 75.7 IMMATURE GRANULOCYTE % 0.4 LYMPHOCYTE % 9.6 L MONOCYTE % 11.5 EOSINOPHIL % 2.4 BASOPHIL % 0.4 NUCLEATED RBC % 0.0 NEUTROPHIL # 6.44 IMMATURE GRANULOCYTE # 0.030 LYMPHOCYTE # 0.82 L MONOCYTE # 0.98 H EOSINOPHIL # 0.20 BASOPHIL # 0.03 NUCLEATED RBC # 0.000 COMPREHENSIVE METABOLIC PANEL (02/07/23 06:16) SODIUM 131L L POTASSIUM 3.7 CHLORIDE 107 CARBON DIOXIDE 20L L ANION GAP 7.7 GLUCOSE 93 BLOOD UREA NITROGEN 61H H GLOMERULAR FILTRATION RATE 20 L CREATININE 2.3H H BUN/CREATININE RATIO 26.5 H TOTAL PROTEIN 5.2 L ALBUMIN 2.5 L CALCIUM 8.5 BILIRUBIN TOTAL 1.0 SGOT/AST 42 H SGPT/ALT 17 ALKALINE PHOSPHATASE 50 HGB amp; HCT (02/06/23 22:44) HEMOGLOBIN 6.8 *L HEMATOCRIT 21.0 L HGB amp; HCT (02/06/23 19:01) HEMOGLOBIN 6.9 *L HEMATOCRIT 21.6 L HGB amp; HCT (02/06/23 16:03) HEMOGLOBIN 7.5 L HEMATOCRIT 22.6 L TROP-I HIGH SEN (02/06/23 16:03) TROP-I HIGH SENSITIVITY 6705 *H HGB amp; HCT (02/06/23 11:32) HEMOGLOBIN 7.1 L HEMATOCRIT 21.4 L Signed in PatientKeeper by Bennie Bruno MD on at 08:57 Electronically Signed by Bennie Bruno MD on 01/21 02/12 at 0857 ATTENTION *EDITS and/or ADDENDA must be made in Patient Ke eper for this note. * * Edits and ammendments created in [employer] are not visible * * in Patient Keeper or the legal medical record (HPF). * [facility] #: [id number] END OF REPORT 2023-02-06 [facility] 16:38:00-00:00 [facility] Gastroenterology Consult REPORT #: [id number] REPORT STATUS: Signed DATE: 02/06/23 TIME: 8 PATIENT: CASEY LYONS UNIT #: [id number] ROOM #: NC.6301 BED: 1 : 37 AGE: 87 SEX: F ATTEND: Linda Whitaker MD ADM AUTHOR: Bennie Bruno MD ATTENTION *EDITS and/or ADDENDA must be made in Patient Chema epkev for this note. * * Edits and ammendments created in [facility] are not visible * * in Patient Keeper or the legal medical record (HPF). * -- ASSESSMENT AND PLAN -- PROBLEMS: 1: Anemia A/P: This is around 7 will need to iron studies. Do not know the baseline hb. No active bleeding . No melena or hematochezia. Multiple medical problems and will need to re-evaluate for any further interve ntion. 2: Elevated troponin A/P: Cardiology consulted. 3: CKD (chronic kidney disease) A/P: Nephro on board. 4: Dementia A/P: stable dementia. -- HISTORY -- HPI: Son at the bedside me the hi story: 87-year-old female with past medical history of hypertension, hypothyroidism CHF PVD s/p Bypa ss, carotid artery disease, dyslipidemia, coronary artery disease, chronic k idney disease--unknown baseline, CVA x2, dementia, hearing difficulties , iron deficiency anemia transferred from [facility] for evaluation of sy mptomatic anemia. She was found to have SOB which was worsening an d incidentally found to have anemia with Hb around 7. Otherwise patient denie s any current chest pain nausea, vomiting, diarrhea, constipation, blood in stools. Patient received a unit of blood transfusion at [facility]. Do not know when her last EGD or colonoscopy was . -- ALLERGIES/HOME MEDS -- ALLERGIES: No Known Allergies (UNKNOWN - Allergy) HOME MEDICATIONS: amLODIPine Tab (Norvasc Tab) 5 MG PO DAILY Apixaban Tab (Eliquis Tab) 2.5 MG PO DAILY Apriso Cap (NF) (Apriso Cap (NF)) 4 CAP PO DAILY Aspirin EC Tab (Ecotrin Tab) 81 MG PO DAILY Atorvastatin Tab (Lipitor Tab) 80 MG PO BEDTIME Carvedilol Tab (Coreg Tab) 25 MG PO BID MEALS DULoxetine DR Cap (Cymbalta Cap) oral Ferrous Sulfate Tab (Feosol Tab) oral Furosemide Tab (Lasix Tab) 20 MG PO DAILY galantamine ER 24 hr capsule,extended release 8 MG PO DAILY Levothyroxine Tab (Synthroid Tab) 25 MCG PO PAYAM Y Memantine Tab (Namenda Tab) oral Multivitamin Tab (Theragran Tab) 1 TAB PO DAILY Pantoprazole Oral Susp (Protonix Oral Susp) 40 M G PO DAILY Singulair tablet (montelukast) 10 MG PO DAILY Valsartan Tab (Diovan Tab) 40 MG PO DAILY HOME MEDICATIONS COMMENTS: Noted. -- SUBJECTIVE -- -REVIEW OF SYSTEMS- COMMENT: Cannot obtain: Cannot obtain because th e patient is not able to give me one due to several reasons outl ined in the HPI. -- OBJECTIVE -- VITALS (02/05 16:38 - 02/06 16:38): Temperature F: 98.1 Temperature C: 36.2 Temperature source: Oral Pulse Rate 74 (66 - 83) Respiratory rate: 16 (16 - 20) Blood pressure: 147/61 (135/56 - 147/63) -EXAM- GENERAL: Well developed, in no acute distress. HEAD: Normocephalic, atraumatic. EYES: PERRL, lids normal. EARS: Hard of hearing NOSE: No deformity. MOUTH: Oropharynx without deformities. NECK: Supple, No masses. CHEST: Grossly normal appearance. LUNGS: Clear bilaterally with normal respiratory effort. HEART: Regular rate and rhythm, normal S1, S2. ABDOMEN: Soft, non-tender, no masses noted. MUSCULOSKELETAL: No deformity. NEUROLOGICAL: No focal deficits. -- DATA -- MEDICATIONS PANTOPRAZOLE with/in SODIUM CHLORIDE 100 mL BAG 80 MG IV X1ED ACETAMINOPHEN 650 MG PO Q4H PRN amLODIPine BESYLATE 5 MG PO DAILY morphine SULFATE 2 MG IV Q3H PRN hydrALAZINE HCL 10 MG IV Q6H PRN MEMANTINE HCL 5 MG PO BID SODIUM CHLORIDE 5 mL FLUSH 5 ML IV .ONCE PRN MONTELUKAST SODIUM 10 MG PO BEDTIME SOD FERRIC GLUC COMPLEX/SUC with/in SODI UM CHLORIDE 100 mL BAG 125 MG IV DAILY carvediloL 25 MG PO BID MEALS MULTIVITAMIN WITH FOLIC ACID 1 TAB PO DAILY PANTOPRAZOLE with/in SODIUM CHLORIDE 100 mL BAG 80 MG IV Q10H GALANTAMINE HYDROBROMIDE 8 MG PO 0800,1800 ATORVASTATIN CALCIUM 80 MG PO BEDTIME LEVOTHYROXINE SODIUM 25 MCG PO DAILY@0600 ONDANSETRON HCL/PF 4 MG IV Q6H PRN LABS HGB amp; HCT (02/06/23 16:03) HEMOGLOBIN 7.5 L HEMATOCRIT 22.6 L HGB amp; HCT (02/06/23 11:32) HEMOGLOBIN 7.1 L HEMATOCRIT 21.4 L FERRITIN (02/06/23 08:45) FERRITIN 25 MAG (02/06/23 08:45) MAGNESIUM 2.0 LIPID PROFILE (CORONARY RISK) (02/06/23 08:45) TRIGLYCERIDES 77 CHOLESTEROL 120 CHOLESTEROL/HDL RATIO 2 HDL CHOLESTEROL 56 LIPOPROTEIN LDL 56 TROP-I HIGH SEN (02/06/23 08:45) TROP-I HIGH SENSITIVITY 3385 *H VITB12 (02/06/23 08:45) VITAMIN B12 761 TSH (02/06/23 08:45) THYROID STIMULATING HORMONE 3.54 COMPREHENSIVE METABOLIC PANEL (02/06/23 08:45) SODIUM 133L L POTASSIUM 3.8 CHLORIDE 105 CARBON DIOXIDE 22 ANION GAP 9.8 GLUCOSE 103H H BLOOD UREA NITROGEN 69H H GLOMERULAR FILTRATION RATE 18 L CREATININE 2.5H H BUN/CREATININE RATIO 27.6 H TOTAL PROTEIN 5.3 L ALBUMIN 2.7 L CALCIUM 8.5 BILIRUBIN TOTAL 0.5 SGOT/AST 28 SGPT/ALT 17 ALKALINE PHOSPHATASE 53 FOLIC ACID (02/06/23 08:45) FOLIC ACID 15.50 PHOS (02/06/23 08:45) PHOSPHOROUS 4.4 FE W/TOTAL IRON BINDING CAP (02/06/23 08:45) IRON 59 TOTAL IRON BINDING CAPACITY 300 IRON SATURATION 20 CBC W/O DIFF (02/06/23 08:45) WHITE BLOOD CELL 9.5 RED BLOOD CELL 2.33 L HEMOGLOBIN 7.0L L HEMATOCRIT 21.1L L MEAN CELL VOLUME 91 MEAN CELL HGB 30.0 MEAN CELL HGB CONCENTRATION 33.2 RED CELL DISTRIBUTION WIDTH 17.5 H PLATELET COUNT 190 Signed in PatientKeeper by Bennie Bruno MD on at 16:46 Electronically Signed by Bennie Bruno MD on 01/21 01/12 at 1646 ATTENTION *EDITS and/or ADDENDA must be made in Patient Ke eper for this note. * * Edits and ammendments created in [facility] are not visible * * in Patient Keeper or the legal medical record (HPF). * [facility] #: [id number] END OF REPORT 2023-02-06 [id number] [facility] 14:19:00-00:00 [id number] [facility] [address] PATIENT NAME: CASEY LYONS ADMIT DATE: 3 ACCOUNT NO: [id number] ROOM NO: NC.6301 AGE: 87 REPORT TYPE: eECHOCARDIOGRAM REPORT SEX: F ADMITTING PHYSICIAN:Linda Whitaker MD ATTENDING PHYSICIAN:Linda Whitaker MD [id number] ECHO [id number] ECHO 2D COMPLETE W/CF DOP [address] [address] Report of Echocardiogram Name: CASEY LYONS Study Date: 02/06/2023 02: 19 PM Patient Location: [facility] 18 : 1935 Gender: Female Age: 87 yrs Left Ventricle: The left ventricle is normal in size. There is normal left ventricular wall thickness. Ejection Fraction = 45-50%. Left ventricular systolic function is mildly reduced. There is mo derate posterior wall hypokinesis. Right Ventricle: The right ventricle is normal s ize. Atria: The left atrial size is normal. Right atr ial size is normal. Mitral Valve: Moderate mitral leaflet calcificat ion. There is mild mitral regurgitation. Tricuspid Valve: The tricuspid valve is normal. There is trace tricuspid regurgitation. RVSP8.4 mmHg. Right ventricular s ystolic pressure is normal. Aortic Valve: The aortic valve is trileaflet. Th e aortic valve opens well. No aortic regurgitation is present. Pulmonic Valve: The pulmonic valve is not well v isualized. There is no pulmonic valvular regurgitation. Great Vessels: The aortic root is normal size. N o obvious dissection could be visualized. Pericardium/Pleural: Trace pericardial effusion. [place] [id number] [facility] [address] PATIENT NAME: CASEY LYONS 4583 MMode/2D Measurements Calculations IVSd: 1.1 cm LVIDd: 5.1 cm LVIDs: 4.0 cm LVPWd: 1.1 cm FS: 20.7 % Ao root diam: 2.9 cm EDV(Teich): 123.5 ml Ao root area: 6.7 cm2 ESV(Teich): 71.7 ml EF(Teich): 42.0 % LVOT diam: 1.6 cm RVOT diam: 3.2 cm LVOT area: 2.1 cm2 LVAd ap4: 27.1 cm2 SV(MOD-sp4): 40.2 ml LVLd ap4: 6.7 cm EDV(MOD-sp4): 90.8 ml EDV(sp4-el): 92.7 ml LVAs ap4: 19.2 cm2 LVLs ap4: 6.3 cm ESV(MOD-sp4): 50.5 ml ESV(sp4-el): 49.9 ml EF(MOD-sp4): 44.3 % EF(sp4-el): 46.2 % SV(sp4-el): 42.8 ml LA A4C-A/L_phl: 16.2 cm2 RA A4C-A/L_phl: 13.9 cm2 Doppler Measurements Calculations MV E max ghazala: 132.2 cm/sec MV V2 max: 151.1 cm/s ec MV A max ghazala: 50.7 cm/sec MV max P.1 mmHg MV E/A: 2.6 MV V2 mean: 67.6 cm/sec MV mean P.4 mmHg MV V2 VTI: 28.5 cm MVA(VTI): 1.4 cm2 MV dec slope: 1068 cm/sec2 Ao V2 max: 136.9 cm/s ec MV dec time: 0.12 sec Ao max P.6 mmHg Ao V2 mean: 91.8 cm/sec Ao mean P.9 mmHg Ao V2 VTI: 34.9 cm FRANKY(I,D): 1.2 cm2 FRANKY(V,D): 1.[address] [address] PATIENT NAME: SERENACASEY [id number] LV V1 max P.0 mmHg SV(LVOT): 41.1 ml LV V1 mean P.1 mmHg LV V1 max: 70.6 cm/sec LV V1 mean: 48.7 cm/sec LV V1 VTI: 19.6 cm TV V2 max: 82.0 cm/sec SV(RVOT): 64.7 ml TV max P.7 mmHg TR max ghazala: 92.3 cm/sec RAP systole: 5.0 mmHg TR max P.4 mmHg RVSP(TR): 8.4 mmHg Interpretation Summary A two-dimensional transthoracic echocardiogram w ith M-mode and Doppler was performed. Left ventricular systolic function is mildly reduced. Ejection Fraction = 45-50%. Moderate mitral leaflet calcification. There is mild mitral regurgitation. There is trace tricuspid regurgitation. Right ventricular systolic pressure is normal. Trace pericardial effusion. There is moderate posterior / BASAL wall hypokin esis. Electronically read by:Edilberto Payton MD 023 04:20 PM Ordering Physician: Linda Whitaker Referring Physician: Physician, Flaca Primary or Fa danny Performed By: Matilde Le at [address] [address] PATIENT NAME: CASEY LYONS 4583 2023-02-06 [facility] 13:38:00-00:00 [facility] ([facility]) Med Order Sheet REPORT #: [id number] REPORT STATUS: Signed DATE: 02/06/23 TIME: 1338 PATIENT: CASEY LYONS UNIT #: [id number] ROOM #: NC.ERTELBED: 18 : 37 AGE: 87 SEX: F ATTEND: Linda Whitaker MD ADM AUTHOR: Linda Whitaker MD ATTENTION *EDITS and/or ADDENDA must be made in Patient Ke eper for this note. * * Edits and ammendments created in [employer] are not visible * * in Patient Keeper or the legal medical record (HPF). * Admission Medication Reconciliation -- CONTINUED / CHANGED HOME MEDICATIONS -- Home: amLODIPine Tab (Norvasc Tab) 5 MG PO DAILY Hosp: amLODIPine Tab (Norvasc Tab) 5 MG PO DAILY Home: Atorvastatin Tab (Lipitor Tab) 80 MG PO BE DTIME Hosp: Atorvastatin Tab (Lipitor Tab) 80 MG PO BE DTIME Home: Carvedilol Tab (Coreg Tab) 25 MG PO BID ME ALS Hosp: Carvedilol Tab (Coreg Tab) 25 MG PO BID ME ALS Home: galantamine ER 24 hr capsule,extended rele ase 8 MG PO DAILY Hosp: galantamine ER 24 hr capsule,extended rele ase 8 MG PO DAILY Home: Levothyroxine Tab (Synthroid Tab) 25 MCG P O DAILY Hosp: Levothyroxine Tab (Synthroid Tab) 25 MCG P O DAILY Home: Memantine Tab (Namenda Tab) oral Hosp: Memantine Tab (Namenda Tab) 5 MG oral BID Home: Multivitamin Tab (Theragran Tab) 1 TAB PO DAILY Hosp: Multivitamin Tab (Theragran Tab) 1 TAB PO DAILY Home: Pantoprazole Oral Susp (Protonix Oral Susp ) 40 MG PO DAILY Hosp: Existing: Pantoprazole Inj (Protonix Inj) 80MG IV X1ED stopping on 02/06 at 19:16in Sodium Chloride 0.9% (NS) 100ML (Total 100 ML) Hosp: Existing: Pantoprazole Inj (Protonix Inj) 80MG IV Q10H stopping on 03/08 at 12:01in Sodium Chloride 0.9% (NS) 100ML (Total 100 ML) Home: Singulair tablet (montelukast) 10 MG PO DA GISELL Hosp: Montelukast Tab (Singulair Tab) 10 MG PO D AILY -- STOPPED HOME MEDICATIONS -- Home: Apixaban Tab (Eliquis Tab) 2.5 MG PO DAILY Home: Aspirin EC Tab (Ecotrin Tab) 81 MG PO SINGH LY The following home medications have not yet been reconciled: Apriso Cap (NF) (Apriso Cap (NF)) 0.375 gram 4 C AP PO DAILY DULoxetine DR Cap (Cymbalta Cap) oral Ferrous Sulfate Tab (Feosol Tab) oral Furosemide Tab (Lasix Tab) 20 MG PO DAILY Valsartan Tab (Diovan Tab) 40 MG PO DAILY Electronically Signed by Linda Whitaker MD on 01/21 01/12 at 1338 ATTENTION *EDITS and/or ADDENDA must be made in Patient Ke eper for this note. * * Edits and ammendments created in [employer] are not visible * * in Patient Keeper or the legal medical record (HPF). * RPT #: [id number] END OF REPORT 2023-02-06 [facility] 11:36:00-00:00 [facility] ([facility]) Hospitalist Kasandra Crawley REPORT #: [id number] REPORT STATUS: Signed DATE: 02/06/23 TIME: 1136 PATIENT: CASEY LYONS UNIT #: [id number] ROOM #: NC.ERTELBED: 18 : 37 AGE: 87 SEX: F ATTEND: Linda Whitaker MD ADM AUTHOR: Linda Whitaker MD ATTENTION *EDITS and/or ADDENDA must be made in Patient Chema johnson for this note. * * Edits and ammendments created in [employer] are not visible * * in Patient Keeper or the legal medical record (HPF). * -- HISTORY -- ADMISSION DATE: 2023-02-06 PRIMARY CARE PROVIDER: Primary or Family Physician, No HPI: 87-year-old female with past medical history of hypertension, hypothyroidism CHF--unknown EF, peripheral artery disea se s/p bypass, carotid artery disease, dyslipidemia, coronary artery disease, chronic k idney disease--unknown baseline, CVA x2, dementia, hearing difficulties , iron deficiency anemia transferred from [facility] for evaluation of symptomatic anemia. She presented to [facility] with chest pain off and o n, shortness of breath progressively worsening. Patient denies any curr ent chest pain nausea, vomiting, diarrhea, constipation, blood in stool s. Patient received a unit of blood transfusion at other hospital. Most of the history was obtained by the son present at bedside. ER work-up; Hemoglobin 7, elevated troponins. GI and cardiology was consulted and patient was admitted to medicine for further management. At the time of my evaluation patient was lying in the bed, alert awake oriented x3, history obtained as above. PAST MEDICAL HISTORY: Hypertension, hypothyroidism CHF--unknown EF, pe ripheral artery disease s/p bypass, carotid artery disease, dyslipid emia, coronary artery disease, chronic kidney disease--unknown baseline, CVA x2 , dementia, hearing difficulties, iron deficiency anemia PAST SURGICAL HISTORY: Bilateral femoral popliteal bypass, Hysterectomy long time ago FAMILY HISTORY: Noncontributory -SOCIAL HISTORY- -TOBACCO USE- DETAILS/COMMENTS: Quit around 15 years ago -VAPING/INHALED SOLVENTS- DETAILS/COMMENTS: Denies -ALCOHOL USE- DETAILS/COMMENTS: Drinks wine occasionally -DRUG USE- DETAILS/COMMENTS: Denies -- SUBJECTIVE -- -REVIEW OF SYSTEMS- GENERAL: Negative for fever, malaise, fatigue. EYES: Negative for blurry vision. No diplopia. RESPIRATORY: + dyspnea, No wheeze. No cough. CARDIOVASCULAR: + chest pain, No palpitations. N o extremity swelling. GASTROINTESTINAL: Negative for abdominal pain or nausea. No emesis. No diarrhea. GENITOURINARY: Negative for dysuria, frequency, or urgency. No gross hematuria. MUSCULOSKELETAL: Negative for joint stiffness, p ain, or arthralgias. SKIN: Negative for rashes. No pruritus. NEUROLOGICAL: Negative for headache. No vertigo. Denies paresthesias. -- OBJECTIVE -- -EXAM- GENERAL: Well developed, in no acute distress. HEAD: Normocephalic, atraumatic. EYES: PERRL, lids normal. EARS: Hard of hearing NOSE: No deformity. MOUTH: Oropharynx without deformities. NECK: Supple, No masses. CHEST: Grossly normal appearance. LUNGS: Clear bilaterally with normal respiratory effort. HEART: Regular rate and rhythm, normal S1, S2. ABDOMEN: Soft, non-tender, no masses noted. MUSCULOSKELETAL: No deformity. NEUROLOGICAL: No focal deficits. -- ASSESSMENT AND PLAN -- GENERAL ASSESSMENT: Assessment and plan: 1--elevated troponin: Complains of off-and-on chest pain and shortness of breath---denies any chest pain Elevated troponin -Serial troponin monitoring -Continuous telemetry monitoring -Check echo -Further work-up as per cardiology -Hold aspirin given concerns of GI bleed -Sublingual nitroglycerin as needed for chest pa in -Cardiology consulted follow recommendations 2--acute on chronic anemia: 3--possible GI bleed: S/p PRBC transfusion -Trend H H -Transfuse PRBC if Hgb< 7 -Monitor for signs and symptoms of bleeding -Check iron panel and ferritin, FOBT -Hold aspirin and Eliquis -GI consulted, follow recommendations 4--carotid artery disease: 5--coronary artery disease: 6--peripheral artery disease: -Restart home medications -Hold aspirin and Eliquis -Cardiology consulted follow recommendations 7--hypothyroidism: -Check TSH -Restart home dose Synthroid 8--hypertension: -Monitor vitals -Restart home medications and adjust as needed 9--dyslipidemia: -Continue statin 10--CKD--unknown baseline creatinine: -Avoid nephrotoxic medication -Trend BMP 11--CVA, dementia: -Restart home medication -Supportive care DVT prophylaxis SCDs GI prophylaxis PPI CODE STATUS full code Disposition pending clinical course and consulti ng services clearance Time Spent 50 minutes -- ATTESTATION -- TIME SPENT ON PATIENT CARE: - Direct 50 minutes - > 50% of time spent on Counseling/Care Coordi [facility] CARE ACTIVITIES / CARE COORDINATION: - I have reviewed the history and repeated the up elements - I have seen and examined this patient - I have discussed the preet ent's condition with other members of the care team Signed in PatientKeeper by Linda Whitaker MD on at 13:41 Electronically Signed by Linda Whitaker MD on 01/21 01/12 at 1341 ATTENTION *EDITS and/or ADDENDA must be made in Patient Ke eper for this note. * * Edits and ammendments created in [employer] are not visible * * in Patient Keeper or the legal medical record (HPF). * [facility] #: [id number] END OF REPORT 2023-02-06 [id number] [facility] 10:21:00-00:00 [address] [facility] [address] PATIENT NAME: CASEY LYONS ADMIT DATE: 3 ACCOUNT NO: [id number] ROOM NO: NC.6301 AGE: 87 REPORT TYPE: eELECTROCARDIOGRAM SEX: F ADMITTING PHYSICIAN:Linda Whitaker MD ATTENDING PHYSICIAN:Linda Whitaker MD Order: [id number] Test Reason : NO ORD Test Date/Time Stamp: FriFeb 06 2023 10:21:12 Blood Pressure : / mmHG Vent. Rate : 071 BPM Atrial Rate : 071 BPM P-R Int : 192 ms QRS Dur : 114 ms QT Int : 438 ms P-R-T Axes : 073 076 165 degree s QTc Int : 475 ms Normal sinus rhythm Incomplete left bundle branch block Minimal voltage criteria for LVH, may be normal variant ( Yohannes product ) Nonspecific ST and T wave abnormality Prolonged QT Abnormal ECG No previous ECGs available Confirmed by MD Sharmila, Irving ([id number]) on 01/22 10:55:28 AM Referred By: Linda Whitaker Confirmed by:Irving arora MD Electronically Signed by Irving Doll MD o n 02/18/[address] [facility] [address] [facility] [address] PATIENT NAME: CASEY LYONS 4583 2023-02-06 [facility] 08:34:00-00:00 [facility] ([facility]) EMERGENCY PROVIDER REPORT REPORT#:[id number] REPORT STATUS: Signed DATE:02/06/23 TIME: 0834 PATIENT: CASEY LYONS UNIT #: [id number] ROOM: BED: AGE: 87 SEX: F PCP PHYS: SERVICE DT: AUTHOR: Yosef Forman MD * ALL edits or amendments must be made on the el [employer]/computer document * HPI-General Illness Free Text HPI Notes Free Text HPI Notes 87-year-old female past medical history A-fib on Eliquis presents to the emergency department as transfer from [facility] for symptomatic anemia. Initial reason for p resentation was palpitations/dyspnea on exertion x2 days, hemoglobin found to be 5.7, unknown baseli ne, given 1 unit of blood. Patient last dose of Eliquis was last night, gre ater than 12 hours prior. She denies any BRBPR or melena but has history of de mentia. Work-up also notable for mildly elevated high sen sitive troponin at 970 and BUN/creatinine of 68/2.5 again with unknown baseline Patient reports no additional medical, surgical, family, or social history relevant to the chief complaint other than as de scribed above or in the HPI. ROS includes areas listed below and is negative except as stated in the HPI: - CONSTITUTIONAL: fever or chills. - HEENT: changes in vision or hearing. - RESPIRATORY: SOB or cough. - CV: CP. - GI: abdominal pain, nausea, vomiting or diarrh ea. - : dysuria. - SKIN: Denies rash. - NEUROLOGICAL: numbness tingling or weakness. - PSYCHIATRIC: hallucinations or suicidal though ts. General Initial Greet Date/Time 02/06/2333 Presentation Chief Complaint Weakness Past Medical History - Adult Stated Complaint GI BLEED/NSTEMI Allergies Coded Allergies: No Known Allergies (02/06/23) Physical Exam Vital Signs Vital Signs First Documented: Result Date Time Pulse Ox 99 02/07 0833 B/P 135/62 02/06 0833 B/P Mean 86 02/07 0833 O2 Delivery Nasal cannula 02/06 833 O2 Flow Rate 2 02/06 833 Temp 36.7 02/06 833 Pulse 83 02/06 0833 Resp 02/06 0833 Last Documented: Result Date Time Pulse Ox 99 02/06 0833 B/P 135/62 02/06 0833 B/P Mean 86 02/07 0833 O2 Delivery Nasal cannula 02/06 833 O2 Flow Rate 2 02/07 0833 Temp 36.7 02/07 0833 Pulse 83 02/06 0833 Resp 02/06 0833 PHYSICAL EXAM: - GENERAL: Alert, conversant . No acute distress. Conjunctival pallor, no melena or blood in the rectal vault - HENT: Moist mucous membranes. - LUNGS: Nonlabored breathing. No accessory musc le use. - CARDIOVASCULAR: Regular rate and rhythm. Warm, well-perfused. - ABDOMEN: Soft, non-tender and non-distended. - NEUROLOGIC: Moving extremities spontaneously. - PSYCHIATRIC: Cooperative. Appropriate mood and affect. Review of Vital Signs Reviewed Re-Evaluation MDM Free Text MDM Notes Free Text MDM Notes 87-year-old female here with symptomatic anemia, normocytic, of unclear chronicity without signs of active GI bleed. Given the elevated BUN, will start Protonix. Myocardial injury likely in setting of symptomatic anemia, doubt benefit for antiplatelets or anticoagulation at this time, will continue to trend and admit telemetry bed with cardiology an d GI consultation The medical decision making includes ind ependent review of any ordered imaging and EKGs and are in agreement with radiology int erpretation unless documented otherwise. Individual labs and/or microbiologic data along with urine studies ordered and resulted at time of dictation have been interpreted by me and do not appear to contribute to an emergency diagnosis u nless as mentioned above. Outside records including th e most recent discharge summary, if available, have been reviewed. Consultants including hospitalist s involved in the case as ordered/documented in the EMR agree with ED plan unless as documented above. ED Course Medication(s) Ordered Medication(s) Ordered: Gastrointestinal Drugs Sig/Laverne Start time Last Medication Dose Route Stop Time Status Admin Pantoprazole 40 MG X1ED STA 02/06 0848 AC Sodium Chloride 10 ML IV 02/06 1847 Patient Discharge Departure Vital Signs/Condition Vital Signs First Documented: Result Date Time Pulse Ox 99 02/06 0833 B/P 135/62 02/06 0833 B/P Mean 86 02/06 0833 O2 Delivery Nasal cannula 02/06 0833 O2 Flow Rate 2 02/06 0833 Temp 36.7 02/06 0833 Pulse 83 02/06 0833 Resp 17 02/06 0833 Last Documented: Result Date Time Pulse Ox 99 02/06 0833 B/P 135/62 02/06 0833 B/P Mean 86 02/06 0833 O2 Delivery Nasal cannula 02/06 0833 O2 Flow Rate 2 02/06 0833 Temp 36.7 02/06 0833 Pulse 83 02/06 0833 Resp 17 02/06 0833 All vital signs available at the time of this en try have been reviewed. Clinical Impression Clinical Impression Primary Impression: GIB (gastrointestinal bleedi ng) Secondary Impressions: Myocardial injury Disposition Decision Hospitalize Hosp Physician Name Linda Whitaker MD Hosp Physician Hospitalist Request Time 0834 Request Date 02/06/23 )( Accepts Hospitalization Yes )( Accepted Time 0834 )( Accepted Date 02/06/23 Call Information will see patient Critical Care Time Spent (minutes): 32 Services Performed Patient management by John aly spent at bedside, Reviewing test results, Reviewing imaging, Discussing preet ent care, Documentation in record, Time with fam/surrogate Separately billable procedures excluded from john ashley. Patient was critically ill due to: Symptomatic anemia My treatment and management were: Protonix, review of prior records, ordering and review of labs, continuous cardiac monitoring, continuous pulse oximetry CC Note 1 Total critical care time [32 ] minutes. Total critical care time documented does not include time spent on separately billed proc edures or the services of residents, students, nurses or physician assista nts. I personally saw and examined the patient. I have reviewed all diagno stic interpretations and treatment plans as written. I was present for the up portions of any procedures performed and the inclusive time noted in any critical care statement. Critical care time includes patient m anagement by me, time spent at the patients bedside, time to review lab and imaging results, discussing patient care, documentation in the medical record, and time spent with the f amily or caregiver. Electronically Signed by Yosef Forman MD on at 0904 RPT #:[id number] END OF REPORT 2023-01-28 Formatting of this note might be differe nt from the original. Kim Byrd RN [facility] 08:59:34-00:00 Notification from [facility] for ICD codes for labs. Filled out and placed in provider folder for signature. Electronically signed by Kim Byrd RN at 0 01/28/2023 9:01 AM T 2023-01-22 [facility] 09:16:18-00:00 Received medical records fro [facility], placed records in provider initial folder. Electronically signed by Joelle Cohen MA a t 01/22/2023 9:19 AM T 2023-01-13 Formatting of this note is different from the or iginal. Ava Doshi [facility] 14:45:00-00:00 Images from the original note were not included. Venipuncture collection perf ormed by clean technique on the right anticubitus. Total of 1 attempts were made. Slight pressure and a bandage/dressing were applied to the site(s). The patient experienced no complications. The follow ing specimens were processed according to instructions and sent to [facility] laboratories per lab order on 01/13/2023 : LT BLUE SST RED LAV PPT DK GREEN (LiHep) 2 DK GREEN (SodH) RIVERA DK BLUE (K2) DK BLUE (S) ACD Blood Culture NIPT/NTD Electronically signed by Ava Doshi at 2022 2:50 PM CDT 2023-01-13 Addended by: ROBIN MILES on: 01/14/2023 07:45 AM [facility] 14:45:00-00:00 Modules accepted: Orders Electronically signed by Robin Miles at 3 7:45 AM T 2023-01-13 Addended by: KELLI MONTEIRO on: 3 09:02 AM [facility] 14:00:00-00:00 Modules accepted: Orders T 2023-01-13 Formatting of this note might be differe nt from the original. Kim Byrd RN [facility] 12:09:20-00:00 [facility] lab results received Electronically signed by Kim Byrd RN at 0 01/13/2023 12:09 PM T 2023-01-10 [facility] 09:09:27-00:00 Received form and informed O Nery leonard informed me to place in initials folder since it was non-urgent. Electronically signed by Joelle Cohen MA a t 01/10/2023 9:12 AM T 2023-01-10 Formatting of this note might be differe nt from the original. Rita Avendaño [facility] 08:53:15-00:00 Home care sent over V[facility] Re port marked as urgent in provider box Electronically signed by Rita Avendaño at 8:54 AM CDT 2023-01-08 Formatting of this note might be differe nt from the original. Machelle Emanuel RN [facility] 14:50:55-00:00 Labs already drawn and resul vero by [facility]. [facility] BY [facility]; [address] [place] [address]; MARY LELEN SÁNCHEZ MD Electronically signed by Machelle Emanuel, GLORIA at 0 01/08/2023 2:53 PM CDT 2023-01-07 Formatting of this note might be differe nt from the original. Rita Avendaño [facility] 09:18:59-00:00 Daughter of pt calling says pt need lab orders faxed to [facility] going [facility] . Daughter says she called yeste ellyn for this Electronically signed by Rita Avendaño at 9:20 AM CDT
--- NOTE | 2023-03-06 06:29 | EDPHYS ---
Physician Documentation [facility] Name: Casey Lyons Age: 87 yrs Sex: Female : 1935 Arrival Date: 03/06/2023 Time: 05:36 Bed 14 Private MD: ED Physician Leland Andujar HPI: 03/06 05:40 This 87 yrs old Female presents to ER via Unassigned with complaints of head injury, rn fall. 05:40 The patient or guardian reports injury, pain, swelling. The complaints affect the rn forehead. Onset: The symptoms/episode began/occurred 2 hour(s) ago. Associated signs and symptoms: Loss of consciousness: This patient did not experience any loss of consciousness. Pertinent negatives: neck pain, seizure, shortness of breath, vomiting. Severity of symptoms: At their worst the symptoms were mild, in the emergency department the symptoms are unchanged. It is unknown whether or not the patient has had similar symptoms in the past. EMS reports called to care home for fall, was getting out of bed, struck head, no LOC, sent here for imaging because takes Plavix. Patient states very mild headache and denies pain elsewhere.. Historical: - Allergies: 05:48 No Known Allergies; jb4 - Home Meds: 05:48 amlodipine 5 mg tablet daily [Active]; valsartan 40 mg Oral tablet daily [Active]; jb4 aspirin 81 mg Oral tablet, delayed release (enteric coated) daily [Active]; Apriso 0.375 gram Oral cp24 4 caps once daily [Active]; atorvastatin 80 mg Oral tab 1 tab once daily [Active]; Eliquis 2.5 mg Oral tablet once [Active]; ferrous sulfate 325 mg (65 mg iron) Oral tablet daily [Active]; galantamine 8 mg Oral Capsule, ER Pellets 24 hr [Active]; levothyroxine 25 mcg tab 1 tab once daily [Active]; carvedilol 25 mg Oral tab 1 tab 2 times per day [Active]; montelukast 10 mg Oral tablet daily [Active]; furosemide 20 mg Oral tablet daily [Active]; Protonix 40 mg Oral grps 1 packet once daily [Active]; memantine 5 mg Oral tablet daily [Active]; multivitamin Oral tablet every morning [Active]; duloxetine 30 mg Oral cpDR 1 cap once daily [Active]; clopidogrel 75 mg oral tablet daily [Active]; - PMHx: 05:48 Cellulitis of Leg; Cerebrovascular accident; CKD; Crohn's; Dementia; High Cholesterol; jb4 Hypertension; - PSHx: 05:48 Stented artery; jb4 - Immunization history:: Adult Immunizations up to date. - Social history:: Smoking status: Patient denies any tobacco usage or history of. - Family history:: not pertinent. - Hospitalizations: : No recent hospitalization is reported. ROS: 05:40 Constitutional: Negative for fever, chills, and weight loss, Neck: Negative for injury, rn pain, and swelling, Cardiovascular: Negative for chest pain, palpitations, and edema, Respiratory: Negative for shortness of breath, cough, wheezing, and pleuritic chest pain, Abdomen/GI: Negative for abdominal pain, nausea, vomiting, diarrhea, and constipation, Back: Negative for injury and pain, MS/Extremity: Negative for injury and deformity, Skin: Negative for injury, rash, and discoloration, Neuro: + for headache Exam: 05:40 Constitutional: This is a well developed, well nourished patient who is awake, alert, rn and in no acute distress. Head/Face: Normocephalic, right frontal and periorbital swelling with ecchymosis. No open wounds or laceration Eyes: Pupils equal round and reactive to light, extra-ocular motions intact. ENT: No intraoral injury noted Neck: No midline cervical tenderness Cardiovascular: Regular rate and rhythm. No pulse deficits. Respiratory: No increased work of breathing, no retractions or nasal flaring. Abdomen/GI: Soft, non-tender Back: No spinal tenderness. MS/ Extremity: Pulses equal, no cyanosis. Neurovascular intact. Full, normal range of motion. Equal circumference. Neuro: Awake and alert, GCS 15 Vital Signs: 05:47 BP 148 / 63; Pulse 61; Resp 18; Temp 97.8; Pulse Ox 100% on R/A; Weight 57.15 kg; oe Height 5 ft. 3 in. ; 06:49 BP 139 / 49; Pulse 55; Resp 16; Pulse Ox 100% on R/A; jb4 05:47 Body Mass Index 22.32 (57.15 kg, 160.02 cm) oe [facility] Coma Score: 05:40 Eye Response: spontaneous(4). Motor Response: obeys commands(6). Verbal Response: rn oriented(5). Total: 15. 06:28 Eye Response: spontaneous(4). Motor Response: obeys commands(6). Verbal Response: rn oriented(5). Total: 15. MDM: 05:40 Patient medically screened. rn 06:28 Differential diagnosis: Contusion of Hematoma on Intracranial bleed- Concussion rn cerebral contusion. Data reviewed: vital signs, nurses notes. Data reviewed: radiologic studies, CT scan, and as a result, I will discharge patient. Independent interpretation of the following test(s) in the Emergency Department CT Scan: My interpretation is CT head images negative for bleed per my interpretation. Counseling: I had a detailed discussion with the patient and/or guardian regarding the historical points, exam findings, and any diagnostic results supporting the discharge/admit diagnosis, radiology results, the need for outpatient follow up, to return to the emergency department if symptoms worsen or persist or if there are any questions or concerns that arise at home. Special discussion: Based on the patient's history, exam and DX evaluation, there is no indication for emergent intervention or inpatient TX. It is understood by the patient/guardian that if the SXs persist or worsen they need to return immediately for re-evaluation. I discussed with the patient/guardian in detail that at this point there is no indication for admission to the hospital. It is understood, however, that if the symptoms persist or worsen the patient needs to return immediately for re-evaluation. 03/06 05:40 Order name: CT Head Brain wo Cont rn Administered Medications: No medications were administered Disposition Summary: 03/06/23 06:29 Discharge Ordered Location: Home rn Problem: new rn Symptoms: have improved rn Condition: Stable rn Diagnosis - Unspecified injury of head, initial encounter rn Followup: rn - With: Private Physician - When: As needed - Reason: Recheck today's complaints, Re-evaluation by your physician Discharge Instructions: - Discharge Summary Sheet rn - Head Injury, Adult rn - Hematoma rn - Fall Prevention in the Home, Adult rn Forms: - Medication Reconciliation Form rn - Thank You Letter rn - Antibiotic internet researcher - Prescription Opioid Use rn - Patient Portal Instructions rn - Leadership Thank You Letter rn Signatures: Dispatcher [employer] EDLeland Maddox MD MD rn Bryson, James, RN RN jb4
--- NOTE | 2023-03-06 06:29 | ER ---
Nurse's Notes [facility] Name: Casey Lyons Age: 87 yrs Sex: Female : 1935 Arrival Date: 03/06/2023 Time: 05:36 Bed 14 Private MD: Diagnosis: Unspecified injury of head, initial encounter Presentation: 03/06 05:45 Chief complaint: EMS states: Pt fell around 0300 while trying to get out of bed. Denies jb4 LOC and any pain. Hematoma noted to the right side of the head. Pt is on plavix. Coronavirus screen: At this time, the client does not indicate any symptoms associated with coronavirus-19. Ebola Screen: No symptoms or risks identified at this time. Initial Sepsis Screen: Does the patient meet any 2 criteria? No. Patient's initial sepsis screen is negative. Does the patient have a suspected source of infection? No. Patient's initial sepsis screen is negative. Risk Assessment: Do you want to hurt yourself or someone else? Patient reports no desire to harm self or others. Onset of symptoms was March 06, 2023. Transition of care: patient was not received from another setting of care. 05:45 Method Of Arrival: EMS: [facility] jb4 05:45 Acuity: CLINT 3 jb4 Historical: - Allergies: 05:48 No Known Allergies; jb4 - Home Meds: 05:48 amlodipine 5 mg tablet daily [Active]; valsartan 40 mg Oral tablet daily [Active]; jb4 aspirin 81 mg Oral tablet, delayed release (enteric coated) daily [Active]; Apriso 0.375 gram Oral cp24 4 caps once daily [Active]; atorvastatin 80 mg Oral tab 1 tab once daily [Active]; Eliquis 2.5 mg Oral tablet once [Active]; ferrous sulfate 325 mg (65 mg iron) Oral tablet daily [Active]; galantamine 8 mg Oral Capsule, ER Pellets 24 hr [Active]; levothyroxine 25 mcg tab 1 tab once daily [Active]; carvedilol 25 mg Oral tab 1 tab 2 times per day [Active]; montelukast 10 mg Oral tablet daily [Active]; furosemide 20 mg Oral tablet daily [Active]; Protonix 40 mg Oral grps 1 packet once daily [Active]; memantine 5 mg Oral tablet daily [Active]; multivitamin Oral tablet every morning [Active]; duloxetine 30 mg Oral cpDR 1 cap once daily [Active]; clopidogrel 75 mg oral tablet daily [Active]; - PMHx: 05:48 Cellulitis of Leg; Cerebrovascular accident; CKD; Crohn's; Dementia; High Cholesterol; jb4 Hypertension; - PSHx: 05:48 Stented artery; jb4 - Immunization history:: Adult Immunizations up to date. - Social history:: Smoking status: Patient denies any tobacco usage or history of. - Family history:: not pertinent. - Hospitalizations: : No recent hospitalization is reported. Screenin:49 [facility] ED Fall Risk Assessment (Adult) History of falling in the last 3 months, jb4 including since admission No falls in past 3 months (0 pts) Confusion or Disorientation No (0 pts) Score/Fall Risk Level 0 - 2 = Low Risk Oriented to surroundings, Maintained a safe environment. Abuse screen: Denies threats or abuse. Nutritional screening: No deficits noted. Tuberculosis screening: No symptoms or risk factors identified. Assessment: 06:02 General: Appears in no apparent distress. comfortable, Behavior is calm, cooperative, jb4 appropriate for age. Pain: Denies pain. Neuro: Level of Consciousness is awake, alert, obeys commands, Oriented to person, place, time, situation. Cardiovascular: Patient's skin is warm and dry. Respiratory: Airway is patent Respiratory effort is even, unlabored, Respiratory pattern is regular, symmetrical. GI: No signs and/or symptoms were reported involving the gastrointestinal system. : No signs and/or symptoms were reported regarding the genitourinary system. EENT: No signs and/or symptoms were reported regarding the EENT system. Derm: Skin is intact, Skin is pink, warm \T\ dry. Bruising that is bright red, dark purple, on right side of forehead. Musculoskeletal: Circulation, motion, and sensation intact. Range of motion: intact in all extremities. 06:49 Reassessment: Patient appears in no apparent distress at this time. Patient and/or jb4 family updated on plan of care and expected duration. Pain level reassessed. Patient is alert, oriented x 3, equal unlabored respirations, skin warm/dry/pink. Vital Signs: 05:47 BP 148 / 63; Pulse 61; Resp 18; Temp 97.8; Pulse Ox 100% on R/A; Weight 57.15 kg; oe Height 5 ft. 3 in. ; 06:49 BP 139 / 49; Pulse 55; Resp 16; Pulse Ox 100% on R/A; jb4 05:47 Body Mass Index 22.32 (57.15 kg, 160.02 cm) oe [facility] Coma Score: 05:40 Eye Response: spontaneous(4). Motor Response: obeys commands(6). Verbal Response: rn oriented(5). Total: 15. 06:28 Eye Response: spontaneous(4). Motor Response: obeys commands(6). Verbal Response: rn oriented(5). Total: 15. ED Course: 05:37 Patient arrived in ED. rv1 05:40 Leland Andujar MD is Attending Physician. rn 05:45 Baldev Damon, GLORIA is Primary Nurse. jb4 05:48 Triage completed. jb4 05:48 Arm band placed on right wrist. jb4 06:05 CT Head Brain wo Cont In Process Unspecified. EDMS 06:49 Patient has correct armband on for positive identification. Bed in low position. Call jb4 light in reach. Side rails up X 1. Client placed on continuous cardiac and pulse oximetry monitoring. NIBP monitoring applied. 06:49 No provider procedures requiring assistance completed. Patient did not have IV access jb4 during this emergency room visit. Administered Medications: No medications were administered Outcome: 06:29 Discharge ordered by . rn 06:49 Discharged to home ambulatory. jb4 06:49 Condition: stable 06:49 Discharge instructions given to patient, Instructed on discharge instructions, follow up and referral plans. Demonstrated understanding of instructions, follow-up care. 06:51 Patient left the ED. jb4 Signatures: Dispatcher [employer] EDHI Leland Andujar MD MD rn Bryson, James, GLORIA RN jb4 Jeremías Velasco Rebecca rv1
[2023-03-06 06:56] VITALS: TEMP 97.8; O2SAT 100
[2023-03-06 06:57] VITALS: BP 139/49
--- NOTE | 2023-03-06 10:39 | RAD REPORT ---
EXAM DESCRIPTION: CT - Head Brain Wo Cont - 03/06/2023 6:35 am CLINICAL HISTORY: Head injury COMPARISON: 06/20/2022 TECHNIQUE: Axial CT of the head obtained from the skull apex to the skull base without contrast. Thi s exam was performed according to our departmental dose-optimization program, which includes automate d exposure control, adjustment of the mA and/or kV according to patient size and/or use of iterative reconstruction technique. FINDINGS: No acute intracranial hemorrhage identified. No mass, mass effect, shift of the midline, a bnormal extra-axial fluid collection or CT evidence of acute ischemic change identified. The ventricu lar system and sulcal spaces are mildly enlarged compatible with mild cerebral atrophy. Confluent a reas of hypodensity throughout the supratentorial white matter are nonspecific and may be related to chronic small vessel ischemic change. The visualized paranasal sinuses and mastoid air cells are well aerated. No skull fracture identifi ed. Visualized orbits and globes are unremarkable. Atherosclerotic calcification of the intracranial internal carotid and vertebral arteries. Contusion in the right frontal scalp soft tissues. IMPRESSION: No acute intracranial abnormality by CT criteria. Electronically signed by: Justino Mondragon 03/06/2023 6:19 AM CDT Due to temporary technical issues with the PACS/Fluency reporting system, reports are being signed by the in house radiologist without review as a courtesy to ensure prompt reporting. The interpreting r adiologist is fully responsible for the content of the report.
== END 2023-03-06 06:51 | disposition home or self-care (01) ==
LOC: ER 05:36
DX: S09.90XA Unspecified injury of head, initial encounter (principal); R51.9 Headache, unspecified; Z79.01 Long term (current) use of anticoagulants; Z79.82 Long term (current) use of aspirin
CPT/HCPCS: 70450; 99283

== ENCOUNTER 2023-10-26 15:36 | Inpatient (IN) | payer OTHER, MEDICARE ==
[2023-10-26 17:36] LABS: Specific Gravity 1.014 (1.005-1.030); Sqamous Epithelial None Seen /HPF (None Seen); Urine Bacteria <20 /HPF (<20); Urine Bilirubin NEGATIVE (Negative); Urine Blood Negative (Negative); Urine Clarity Clear (Clear); Urine Color Light-Yellow (Yellow); Urine Culture Reflex Order NOT NEEDED; Urine Glucose NEGATIVE (Negative); Urine Ketones NEGATIVE (Negative); Urine Micro Reflex YN NO BILL MICROSCOPIC; Urine Mucus Slight /HPF (None Seen); Urine Nitrite NEGATIVE (Negative); Urine Protein 2+ (Negative); Urine RBC <5 /HPF (None Seen); Urine Urobilinogen Normal (Normal); Urine WBC <5 /HPF (<5); Urine pH 5.5 (5.0-7.0)
--- NOTE | 2023-10-26 18:31 | RAD REPORT ---
EXAM DESCRIPTION: CT - Head Brain Wo Cont - 10/26/2023 5:59 pm CLINICAL HISTORY: Alteration of awareness/confusion COMPARISON: 2021 and 2022 TECHNIQUE: Computed axial tomography of the head was obtained. IV contrast was not requested. All CT scans are performed using dose optimization technique as appropriate and may include automated exposure control or mA/KV adjustment according to patient size. FINDINGS: An intracranial bleed is not seen Prominence of ventricles unchanged from multiple prior exams likely sequela atrophy No extra-axial fluid collection is noted. Small old left cerebellar infarction Moderate low-density areas within periventricular, deep and subcortical white matter likely represent ischemic changes secondary to small vessel disease. Fluid within the sinuses/ mastoids is not seen. IMPRESSION: No acute intracranial abnormality is seen If patient's symptoms persist MRI of the brain would be recommended
[2023-10-26 18:48] LABS: Absolute Eosinophils 0.1 K/uL (0-0.5); Absolute Lymphocytes (CBC) 0.8 K/uL (0.7-4.9); Absolute Monocytes 0.6 K/uL (0.1-1.3); Absolute Neutrophil 3.9 K/uL (1.8-8.0); Basophils % 0.3 % (0-1.3); Eosinophils % 1.5 % (0-4.4); Hemoglobin 11.1 g/dL (12.0-15.0); MCH 28.4 pg (27.0-35.0); MCHC 31.7 g/dL (32.0-36.0); MCV 89.4 fL (80-100); MPV 10.3 fL (7.6-11.3); Monocytes % 11.2 % (3.3-12.3); Platelets 202 thou/uL (152-406); RBC Red Blood Cell Count 3.91 M/uL (3.86-4.86); Red Cell Distribution Width 15.6 % (12.1-15.2)
[2023-10-26 19:07] LABS: PT Prothrombin Time 10.6 SECONDS (9.5-12.5); PTT, Activated Partial Thromb 30.6 SECONDS (24.3-36.9); Protime INR 0.96
[2023-10-26 19:12] LABS: ALT/SGPT 67 U/L (13-56); AST/SGOT 63 U/L (15-37); Albumin 3.1 g/dL (3.4-5.0); Alkaline Phosphatase 125 U/L (45-117); Anion Gap 6.7 mEq/L (5.0-15.0); BUN Blood Urea Nitrogen 36 mg/dL (7-18); Bicarbonate 28 mEq/L (21-32); Bilirubin Direct 0.1 mg/dL (0-0.2); Bilirubin Indirect, Calculated 0.2 mg/dL (0.2-0.8); Bilirubin Total 0.3 mg/dL (0.2-1.0); Creatine Phosphokinase 45 U/L (26-192); Globulin 3.1 g/dL (2.3-3.5); Glomerular Filtration Rate 29 ml/min (=/>90); Glucose Level 120 mg/dL (74-106); Potassium 4.7 mEq/L (3.5-5.1); Protein, Total 6.2 g/dL (6.4-8.2); Sodium Level 138 mEq/L (136-145)
--- NOTE | 2023-10-26 21:06 | RAD REPORT ---
EXAM DESCRIPTION: CT - Chest Abd Pelvis Wo Con - 10/26/2023 8:49 pm CLINICAL HISTORY: Chest and abdominal pain COMPARISON: 2014 TECHNIQUE: Computed axial tomography of the chest, abdomen and pelvis was obtained. Oral contrast wa s given. IV contrast was not requested. All CT scans are performed using dose optimization technique as appropriate and may include automated exposure control or mA/KV adjustment according to patient size. FINDINGS: The evaluation of mediastinum, chery, vessels and solid organs is limited secondary to the lack of IV contrast administration Moderate bilateral pleural effusions with basilar atelectasis. No pericardial effusion. Cardiomegaly. No gross mediastinal or hilar lymphadenopathy. The liver, spleen, pancreas, adrenals and left kidney appear grossly normal. Right renal cysts. Prominent atherosclerosis. Hysterectomy. No adnexal mass There is no evidence of diverticulitis. Cholelithiasis. Gallbladder wall does not appear thickened IMPRESSION: Moderate bilateral pleural effusions Cholelithiasis without evidence cholecystitis
[2023-10-26] MEDS ORDERED: NA CHLORIDE 0.9% 500 ML ONE (21:17)
[2023-10-26] MEDS ORDERED: HYDRALAZINE HCL 20 MG/ML VIAL ONE (21:17)
--- NOTE | 2023-10-26 22:32 | RAD REPORT ---
EXAM DESCRIPTION: US - Abdomen Exam Limited - 10/26/2023 10:14 pm CLINICAL HISTORY: Abdominal pain. COMPARISON: CT October 26, 2023 FINDINGS: Several small gallstones. Gallbladder wall not thickened. The biliary tree is normal caliber. Small to moderate right pleural effusion. Echogenic kidney IMPRESSION: Cholelithiasis without evidence cholecystitis Small to moderate right pleural
--- NOTE | 2023-10-26 22:54 | EDPHYS ---
Physician Documentation [facility] Name: Casey Lyons Age: 88 yrs Sex: Female : 1935 Arrival Date: 10/26/2023 Time: 15:36 Bed 20 Private MD: ED Physician Ben Ponce HPI: 10/25 16:43 This 88 yrs old Female presents to ER via Wheelchair with complaints of Urinary Problem.sb4 16:43 family brought her into ED because she has been more confused than usual today. they sb4 state that when this has happened in the past, it has been because of a UTI. patient has no complaints at this time. Historical: - Allergies: 15:57 No Known Allergies; nj1 - PMHx: 15:57 Cellulitis of Leg; Cerebrovascular accident; CKD; Crohn's; Dementia; High Cholesterol; nj1 Hypertension; - PSHx: 15:57 Stented artery; nj1 - Immunization history:: Client reports having NOT received the Covid vaccine. - Infectious Disease History:: Denies. - Social history:: Smoking status: Patient/guardian denies using tobacco, but has a distant history of tobacco abuse. ROS: 16:43 Constitutional: Negative for fever, chills, and weight loss, sb4 16:43 Neuro: Positive for altered mental status, cp 16:43 All other systems are negative, Exam: 16:43 Constitutional: This is a well developed, well nourished patient who is awake, alert, sb4 and in no acute distress. Head/Face: Normocephalic, atraumatic. Eyes: Extra-ocular motions intact. Periorbital areas with no swelling, redness, or edema. ENT: Mucous membranes moist. Skin: Warm, dry with normal turgor. Normal color with no rashes, no lesions, and no evidence of cellulitis. MS/ Extremity: Pulses equal, no cyanosis. Neurovascular intact. Full, normal range of motion. 19:27 ECG was reviewed by the Attending Physician. cp Vital Signs: 15:51 BP 178 / 82; Pulse 61; Resp 18; Temp 97.5; Pulse Ox 99% on R/A; Weight 53.52 kg; Height nj1 5 ft. 3 in. ; 18:34 BP 172 / 80; Pulse 66; Resp 18; Pulse Ox 99% on R/A; rs5 19:12 BP 191 / 88; Pulse 68; Pulse Ox 95% on R/A; Pain 0/10; tm6 20:00 BP 187 / 83; Pulse 68; Pulse Ox 95% on R/A; Pain 0/10; tm6 21:00 BP 177 / 80; Pulse 69; Pulse Ox 94% on R/A; Pain 0/10; tm6 21:52 BP 189 / 72; Pulse 69; Pulse Ox 93% on R/A; Pain 0/10; tm6 23:03 BP 148 / 72; tm6 15:51 Body Mass Index 20.90 (53.52 kg, 160.02 cm) nj1 19:12 Pain Scale: Adult tm6 20:00 Pain Scale: Adult tm6 21:00 Pain Scale: Adult tm6 21:52 Pain Scale: Adult tm6 MDM: 16:08 Patient medically screened. sb4 17:40 ED course: urine is negative for UTI. family concerned about increasing confusion. will sb4 check labs, EKG, head CT. 17:41 Historians other than the Patient: Daughter/Son: son and daughter. sb4 10/26 08:06 Data reviewed: vital signs, nurses notes, lab test result(s), radiologic studies, and sb4 as a result, I will admit patient. Counseling: I had a detailed discussion with the patient and/or guardian regarding the historical points, exam findings, and any diagnostic results supporting the discharge/admit diagnosis, the presence of at least one elevated blood pressure reading (>120/80) during this emergency department visit, lab results, radiology results, the need for further work-up and treatment in the hospital. 10/25 16:08 Order name: UAM; Complete Time: 17:37 sb4 10/25 17:40 Order name: Acetaminophen; Complete Time: 20:24 sb4 10/25 17:40 Order name: Basic Metabolic Panel; Complete Time: 20:24 sb4 10/25 20:24 Interpretation: Normal except: CL 108; GLUC 120; BUN 36; CRE 1.71; GFR 29. cp 10/25 17:40 Order name: CBC with Diff; Complete Time: 20:24 sb4 10/25 20:24 Interpretation: Normal except: HGB 11.1; HCT 35.0; MCHC 31.7; RDW 15.6; LYM% 14.0. cp 10/25 17:40 Order name: ETOH Level; Complete Time: 20:24 [facility] 10/25 17:40 Order name: Hepatic Function; Complete Time: 20:24 [facility] 10/25 17:40 Order name: PT-INR; Complete Time: 20:24 [facility] 10/25 17:40 Order name: Ptt, Activated; Complete Time: 20:24 [facility] 10/25 17:40 Order name: Salicylate; Complete Time: 20:24 [facility] 10/25 17:40 Order name: Urine Drug Screen [facility] 10/25 17:40 Order name: CK; Complete Time: 20:24 [facility] 10/26 00:53 Order name: Urinalysis w/ reflexes EDMS 10/26 00:53 Order name: CBC with Automated Diff EDMS 10/26 00:53 Order name: CBC with Automated Diff EDMS 10/26 00:53 Order name: Comprehensive Metabolic Panel EDMS 10/26 00:53 Order name: Comprehensive Metabolic Panel EDMS 10/25 17:40 Order name: Head Brain Wo Cont CT; Complete Time: 18:33 [facility] 10/25 18:33 Interpretation: Report reviewed. cp 10/25 20:32 Order name: CT Chest Abdomen Pelvis W/O Contrast; Complete Time: 21:08 cp 10/25 21:10 Order name: US Abdomen Limited; Complete Time: 22:44 cp 10/25 22:45 Interpretation: Reviewed. 10/25 17:40 Order name: EKG - Nurse/Tech; Complete Time: 19:25 [facility] 10/25 17:40 Order name: IV Saline Lock; Complete Time: 18:29 [facility] 10/25 17:40 Order name: Labs collected and sent; Complete Time: 18:29 sb4 EC/05 19:27 Rate is 71 beats/min. Rhythm is regular. MD interval is normal. QRS interval is cp prolonged at 104 msec. QT interval is normal. T waves are Inverted in leads V2, V3, V5, V6. Interpreted by me. Reviewed by me. Administered Medications: 21:51 Drug: hydrALAZINE IVP 10 mg IVP once Route: IVP; Site: right antecubital; tm6 21:51 Drug: NS 0.9% IV 500 ml IV at 250 ml/hr continuous Route: IV; Rate: 250 ml/hr; Site: tm6 right antecubital; Disposition Summary: 10/26/23 22:54 Hospitalization Ordered Notes: Hospitalization Status: Observation cp Provider: Jordan Gibson cp Location: Telemetry/MedSurg (observation) cp Condition: Stable cp Problem: new cp Symptoms: are unchanged cp Bed/Room Type: Standard cp Room Assignment: 232(10/27/23 01:20) rv1 Diagnosis - Altered mental status, unspecified cp - Hypertensive heart and chronic kidney disease without heart failure, with stage 1 cp through stage 4 chronic kidney disease, or unspecified chronic kidney disease - Other cholelithiasis without obstruction cp Forms: - Medication Reconciliation Form cp - SBAR form cp - Leadership Thank You Letter cp Signatures: Dispatcher [employer] EDMS Ben Cobos PA PA cp Brown, Sophia, PA-C PA-C sb4 Clover Ramirez rv1 Elmo Naranjo, RN RN rs5 Geri Davidson RN RN nj1 Chris Burt RN RN tm6 Corrections: (The following items were deleted from the chart) 17:41 17:41 ACETAMINOPHEN+C.LAB.BRZ ordered. EDMS EDMS 17:41 17:41 BASIC METABOLIC PANEL+C.LAB.BRZ ordered. EDMS EDMS 17:41 17:41 CBC+H.LAB.BRZ ordered. EDMS EDMS 17:41 17:41 ETHANOL+C.LAB.BRZ ordered. EDMS EDMS 17:41 17:41 HEPATIC FUNCTION+C.LAB.BRZ ordered. EDMS EDMS 17:41 17:41 PROTIME (+INR)+COAG.LAB.BRZ ordered. EDMS EDMS 17:41 17:41 PTT, ACTIVATED+COAG.LAB.BRZ ordered. EDMS EDMS 17:41 17:41 SALICYLATE+C.LAB.BRZ ordered. EDMS EDMS 17:41 17:41 URINE DRUG SCREEN+UC.LAB.BRZ ordered. EDMS EDMS 17:41 17:41 CREATINE PHOSPHOKINASE+C.LAB.BRZ ordered. EDMS EDMS 17:41 17:41 Head Brain Wo Cont+CT.RAD.BRZ ordered. EDMS EDMS 21:10 21:10 Abdomen Limited+US.RAD.BRZ ordered. EDMS EDMS 10/26 00:56 05/ 22:54 cp rv1 10/26 01:20 00:56 210 rv1 rv1 16:28 05 16:43 All other systems are negative, sb4 cp
--- NOTE | 2023-10-26 22:54 | ER ---
Nurse's Notes [facility] Name: Casey Lyons Age: 88 yrs Sex: Female : 1935 Arrival Date: 10/26/2023 Time: 15:36 Bed 20 Private MD: Diagnosis: Altered mental status, unspecified;Hypertensive heart and chronic kidney disease without heart failure, with stage 1 through stage 4 chronic kidney disease, or unspecified chronic kidney disease;Other cholelithiasis without obstruction Presentation: 10/25 15:51 Chief complaint: Patient's son or daughter states: a little disorientated today, son nj1 and daughter want her urine to be checked. Assisted facility reported to them that she slept longer, staying more in her room the last week. Coronavirus screen: Vaccine status: Patient reports being unvaccinated. Ebola Screen: Patient denies travel to an Ebola-affected area in the 21 days before illness onset. Initial Sepsis Screen: Does the patient meet any 2 criteria? No. Patient's initial sepsis screen is negative. Does the patient have a suspected source of infection? No. Patient's initial sepsis screen is negative. Risk Assessment: Do you want to hurt yourself or someone else? Patient reports no desire to harm self or others. Onset of symptoms was October 2023. 15:51 Method Of Arrival: Wheelchair nj1 15:51 Acuity: CLINT 3 nj1 Historical: - Allergies: 15:57 No Known Allergies; nj1 - PMHx: 15:57 Cellulitis of Leg; Cerebrovascular accident; CKD; Crohn's; Dementia; High Cholesterol; nj1 Hypertension; - PSHx: 15:57 Stented artery; nj1 - Immunization history:: Client reports having NOT received the Covid vaccine. - Infectious Disease History:: Denies. - Social history:: Smoking status: Patient/guardian denies using tobacco, but has a distant history of tobacco abuse. Screenin:01 [facility] ED Fall Risk Assessment (Adult) History of falling in the last 3 months, rs5 including since admission No falls in past 3 months (0 pts) Confusion or Disorientation Yes (5 pts) Intoxicated or Sedated No (0 pts) Impaired Gait Yes (1 pt) Mobility Assist Device Used Yes (1 pt) Altered Elimination No (0 pt) Score/Fall Risk Level 0 - 2 = Low Risk Oriented to surroundings, Maintained a safe environment, Provided non-skid footwear, Hourly rounding (assess needs \\T\\ fall precautionary measures) done. Abuse screen: Denies threats or abuse. Nutritional screening: No deficits noted. Tuberculosis screening: No symptoms or risk factors identified. Assessment: 16:00 General: Appears in no apparent distress. comfortable, Behavior is calm, cooperative. rs5 16:00 Pain: Denies pain. Neuro: Level of Consciousness is awake, alert, Oriented to person, rs5 situation. Cardiovascular: Patient's skin is warm and dry. Rhythm is regular. Respiratory: Airway is patent Respiratory effort is even, unlabored, Respiratory pattern is regular, symmetrical. GI: Abdomen is round non-distended. : No signs and/or symptoms were reported regarding the genitourinary system. EENT: No signs and/or symptoms were reported regarding the EENT system. Derm: Skin is intact, Skin is pink, warm \\T\\ dry. Musculoskeletal: Range of motion: intact in all extremities. 16:01 Reassessment: son at bedside. son states "she's been getting confused lately off and rs5 on. sometimes she forgets where she is or what day it is. she has a history of UTI's and this is how she typically behaves when she has one". 17:05 Reassessment: Patient and/or family updated on plan of care and expected duration. Pain rs5 level reassessed. General: Behavior is calm, cooperative, son at bedside.. 19:12 Reassessment: Patient appears in no apparent distress at this time. Patient and/or tm6 family updated on plan of care and expected duration. Pain level reassessed. Patient is alert, oriented x 3, equal unlabored respirations, skin warm/dry/pink. 21:52 Reassessment: Patient appears in no apparent distress at this time. Patient and/or tm6 family updated on plan of care and expected duration. Pain level reassessed. Patient is alert, oriented x 3, equal unlabored respirations, skin warm/dry/pink. 23:00 Reassessment: Jn (son) [phone]. tm6 23:01 Reassessment: Suzanna (daughter) [phone]. tm6 23:54 Reassessment: Patient ripped out IV. Patient refusing VS monitoring and IV. Patient tm6 shouting at nurse "GET OUT OF HERE! YOU ARE BEING A FOOL!" Dr. Gibson at bedside. talked with son Jn about continued treatment of patient. gave verbal order for 10mg geodon. 10/26 01:47 Reassessment: patient now pleasant and compliant with medical care. tm6 Vital Signs: 10/25 15:51 BP 178 / 82; Pulse 61; Resp 18; Temp 97.5; Pulse Ox 99% on R/A; Weight 53.52 kg; Height nj1 5 ft. 3 in. ; 18:34 BP 172 / 80; Pulse 66; Resp 18; Pulse Ox 99% on R/A; rs5 19:12 BP 191 / 88; Pulse 68; Pulse Ox 95% on R/A; Pain 0/10; tm6 20:00 BP 187 / 83; Pulse 68; Pulse Ox 95% on R/A; Pain 0/10; tm6 21:00 BP 177 / 80; Pulse 69; Pulse Ox 94% on R/A; Pain 0/10; tm6 21:52 BP 189 / 72; Pulse 69; Pulse Ox 93% on R/A; Pain 0/10; tm6 23:03 BP 148 / 72; tm6 15:51 Body Mass Index 20.90 (53.52 kg, 160.02 cm) nj1 19:12 Pain Scale: Adult tm6 20:00 Pain Scale: Adult tm6 21:00 Pain Scale: Adult tm6 21:52 Pain Scale: Adult tm6 ED Course: 15:38 Patient arrived in ED. rg4 15:57 Triage completed. nj1 15:58 Arm band placed on right wrist. nj1 16:01 Patient has correct armband on for positive identification. Placed in gown. Bed in low rs5 position. Call light in reach. Side rails up X2. 16:08 Enid Zheng PA-C is PHCP. sb4 16:08 Ben Ponce MD is Attending Physician. sb4 16:10 Elmo Naranjo, GLORIA is Primary Nurse. rs5 17:52 PHCP role handed off by Enid Zheng PA-C cp 17:52 Ben Cobos PA is PHCP. cp 18:01 Head Brain Wo Cont CT In Process Unspecified. EDMS 18:33 No provider procedures requiring assistance completed. rs5 19:25 EKG done, by ED staff, reviewed by Ben MALONEY. tm6 20:51 CT Chest Abdomen Pelvis W/O Contrast In Process Unspecified. EDMS 22:16 US Abdomen Limited In Process Unspecified. EDMS 22:50 Jordan Gibson MD is Hospitalizing Provider. cp 23:55 Missed attempt(s): 22 gauge Bleeding controlled, band aid applied, catheter tip intact. oe 10/26 00:23 Inserted saline lock: 22 gauge in left antecubital area, using aseptic technique. oe 01:48 Provided Education on: need for admit. tm6 01:48 Patient admitted, IV remains in place. tm6 Administered Medications: 10/25 21:51 Drug: hydrALAZINE IVP 10 mg IVP once Route: IVP; Site: right antecubital; tm6 21:51 Drug: NS 0.9% IV 500 ml IV at 250 ml/hr continuous Route: IV; Rate: 250 ml/hr; Site: tm6 right antecubital; Medication: 18:33 VIS not applicable for this client. rs5 Outcome: 22:54 Decision to Hospitalize by Provider. cp /06 01:48 Admitted to Med/surg accompanied by nurse, via stretcher, with oxygen, with chart, tm6 Report called to [facility] Condition: stable Instructed on the need for admit, Demonstrated understanding of instructions, 01:49 Patient left the ED. tm6 Signatures: Dispatcher [employer] EDMS Ben Cobos PA PA cp Garcia, Rubi rg4 Jeremías Velasco Sophia, PA-C PARickey sb4 Elmo Naranjo RN RN rs5 Geri Davidson RN RN nj1 Chris Burt RN RN tm6
[2023-10-26] MEDS: ZIPRASIDONE MESYLA 20 MG/VIAL IM ONE (23:23)
[2023-10-26] MEDS: WATER FOR INJ,STERILE 10 ML IM PRN (23:23)
[2023-10-26] MEDS ORDERED: ZIPRASIDONE MESYLA 20 MG/VIAL IM ONE (23:37)
[2023-10-26] MEDS ORDERED: WATER FOR INJ,STERILE 10 ML ONE (23:38)
--- NOTE | 2023-10-27 00:41 | P.HP ---
Certification for Inpatient Patient admitted to: Observation With expected LOS: <2 Midnights Practitioner: I am a practitioner with admitting privileges, knowledge of patient current condition, hospital course, and medical plan of care. Services: Services provided to patient in accordance with Admission requirements found in Title 42 Section 412.3 of the Code of Federal Regulations Patient History Date of Service: 10/27/23 Reason for admission: AMS History of Present Illness: 88 yrs old Female with past medical history of dementia, hypertension, hyperlipidemia, CKD stage II, CVA who was brought to ER with abdominal status and dysuria which has been going on for the last few days . At the time of interview patient is confused and could not offer any history hence most of the history is obtained from the chart review and also talking to the ER physician. Patient used to have UTI induced confusion. Patient also has a history of dementia not formally diagnosed yet and on and off agitated as per the family. Patient was assessed in the ER and is admitted for further management Allergies No Known Drug Allergies Allergy (Verified 02/19/23 21:53) Unknown Home medications list reviewed: Yes Home Medications: Aspirin 81 mg PO DAILY 02/19/23 Atorvastatin Calcium [Lipitor] 80 mg PO BEDTIME 02/19/23 Clopidogrel Bisulfate [Plavix*] 75 mg PO DAILY 02/19/23 Duloxetine HCl [Cymbalta] 30 mg PO DAILY 02/19/23 Ferrous Sulfate [Ferrous Sulfate*] 1 tab PO BID 02/19/23 Galantamine HBr [Galantamine ER] 8 mg PO DAILY 02/19/23 Levothyroxine Sodium 25 mcg PO DAILY 02/19/23 Memantine HCl [Namenda*] 5 mg PO DAILY 02/19/23 Montelukast Sodium [Singulair] 10 mg PO DAILY 02/19/23 Multivitamin 1 tab PO DAILY 02/19/23 Pantoprazole [Protonix Tab*] 40 mg PO BID 02/19/23 Furosemide 20 mg PO BID #60 02/27/23 carvediloL [Coreg] 6.25 mg PO BID #60 tab 02/27/23 - Past Medical/Surgical History Diabetic: No Past Medical History: Reviewed- Non-Contributory -: HTN -: Hyperlipidemia -: [place] 01/2015 -: CAD -: Lymphedema -: arthritis -: hypothyroidism -: stroke 2017 -: CKD- stage 3 -: Crohn's disease -: UTI Past Surgical History: Reviewed- Non-Contributory -: Heart Stents -: FEMPOP -: Hysterectomy -: left common femoral endarterectomy and thrombectomy 02/06 -: push enteroscopy with biopsies, ablation 02/12 - Family History Mother -: Heart disease Notes: - Social History Smoking Status: Never smoker Alcohol use: Yes CD- Drugs: No Caffeine use: Yes Review of Systems is unable to be obtained Physical Examination - Vital Signs Temperature: 98.2 F Blood Pressure: 132/76 Pulse: 76 Respirations: 18 Pulse Ox (%): 94 - Physical Exam General: Alert, Confused HEENT: Atraumatic, Normocephalic Neck: Supple Respiratory: Clear to auscultation bilaterally, Normal air movement Cardiovascular: No edema, Normal pulses, Regular rate/rhythm, Normal S1 S2 Capillary refill: <2 Seconds Gastrointestinal: Soft and benign, W/out hepatosplenomegaly Musculoskeletal: No clubbing, No swelling Integumentary: No rashes Neurological: Normal strength at 5/5 x4 extr, Cranial nerves 3-12 intact, Normal reflexes 2+, Dementia Lymphatics: No axilla or inguinal lymphadenopathy - Studies Laboratory Data (last 24 hrs) 10/26/23 10/26/23 10/26/23 18:18 18:18 18:18 WBC 5.40 Hgb 11.1 L Hct 35.0 L Plt Count 202 PT 10.6 INR 0.96 APTT 30.6 Sodium 138 Potassium 4.7 BUN 36 H Creatinine 1.71 H Glucose 120 H Total Bilirubin 0.3 AST 63 H ALT 67 H Alkaline Phosphatase 125 H Assessment and Plan - Problems (Diagnosis) (1) Acute encephalopathy Current Visit: Yes Status: Acute Plan: Acute respiratory metabolic versus UTI Started on IV antibiotic CT head negative for any acute changes No focal deficits Monitor neuro vital signs Possible dementia with sundowning Dicussed with family Need follow-up with us with geripsychiatry Acute confusional state Give a dose of Geodon Monitor neuro vital signs Hypertension Hyperlipidemia Diabetes Continue home medications and titrate as needed Elevated LFTs Gallbladder sludge with no cholecystitis Empirical antibiotic GI/DVT prophylaxis Advanced directive full code Discharge Plan: Home Plan to discharge in: 24 Hours - Advance Directives Does patient have a Living Will: No Does patient have a Durable POA for Healthcare: No - Code Status/Comfort Care Code Status: Full Code Time Spent Managing Pts Care (In Minutes): 48
[2023-10-27] MEDS ORDERED: ACETAMINOPHEN 325 MG TABLET PO PRN (00:48)
[2023-10-27] MEDS ORDERED: ONDANSETRON 4 MG/2 ML VIAL IV PRN (00:48)
[2023-10-27 02:42] VITALS: BMI 21.2
[2023-10-27] MEDS: NA CHLORIDE 0.9% 1,000 ML IV SCH (02:47)
[2023-10-27] MEDS: HYDRALAZINE HCL 20 MG/ML VIAL IV PRN (02:47)
[2023-10-27] MEDS: CEFTRIAXONE 1,000 MG in NA CHLORIDE 0.9% 50 ML IVPB SCH (02:47)
[2023-10-27] MEDS: INSULIN REGULAR (HUMAN) 100 UNIT/ML SQ SCH ×2 (07:30→11:30)
[2023-10-27] MEDS: ENOXAPARIN 30 MG/0.3 ML SQ SCH (08:56)
[2023-10-27] MEDS: CLONIDINE 0.1 MG/PATCH TD SCH (08:56)
[2023-10-27] MEDS: ZIPRASIDONE MESYLA 20 MG/VIAL IM ONE (12:17)
--- NOTE | 2023-10-27 14:01 | P.PN ---
Date of Service: 10/27/23 Pt seen and examined. I agree with the note by the MARKETING TRAFFIC MANAGER. A/P: Acute encephalopathy 2/2 possible UTI: Will continue empiric iv abx. Urinalysis is unremarkable. Will f/u urine cx. CT head negative for any acute changes. Will f/u ammonia level. Possible dementia with sundowning. Pt will need Geripsych eval. Acute confusional state: Will continue prn geodon. Hypertension: Continue home meds. Hyperlipidemia: statin Diabetes: Continue accuchek, SSI and ADA diet, Elevated LFTs: Imaging study shows gallbladder sludge with no cholecystitis. Continue empiric antibiotic GI ppx: protonx DVT ppx: SCD Code: full
--- NOTE | 2023-10-27 14:39 | EKG ---
Test Date: 2023-10-26 Test Time: 19:21:35 Commercial Underwriter: LEOPOLDO MEASUREMENT RESULTS: Intervals: Rate: 71 ID: [id number] QRSD: 104 QT: 434 QTc: 471 [place]: P: 59 ID: [id number] QRS: -1 T: 21 INTERPRETIVE STATEMENTS: Sinus rhythm with frequent premature ventricular complexes T wave abnormality, consider inferolateral ischemia Prolonged QT Abnormal ECG Compared to ECG 02/06/2023 00:22:23 Ventricular premature complex(es) now present T-wave abnormality now present Left bundle-branch block no longer present ST (T wave) deviation no longer present Possible ischemia still present Electronically Signed On 10-27-23 14:37:34 CDT by Umberto Eugene
[2023-10-27] MEDS: QUETIAPINE 25 MG TAB PO SCH (21:10)
[2023-10-28 06:09] LABS: Absolute Eosinophils 0.1 K/uL (0-0.5); Absolute Lymphocytes (CBC) 0.7 K/uL (0.7-4.9); Absolute Monocytes 0.7 K/uL (0.1-1.3); Absolute Neutrophil 4.9 K/uL (1.8-8.0); Basophils % 0.4 % (0-1.3); Eosinophils % 2.2 % (0-4.4); Hematocrit 33.3 % (36.0-45.0); Hemoglobin 10.7 g/dL (12.0-15.0); Lymphocytes % 10.7 % (15.3-44.8); MCH 28.6 pg (27.0-35.0); MCHC 32.1 g/dL (32.0-36.0); MCV 89.1 fL (80-100); MPV 9.9 fL (7.6-11.3); Monocytes % 10.7 % (3.3-12.3); Nucleated Red Blood Cells % 0.1 % (0-0); Platelets 190 thou/uL (152-406); RBC Red Blood Cell Count 3.74 M/uL (3.86-4.86); Red Cell Distribution Width 15.6 % (12.1-15.2)
[2023-10-28 06:26] LABS: Albumin 2.8 g/dL (3.4-5.0); Anion Gap 9.4 mEq/L (5.0-15.0); Bilirubin Total 0.4 mg/dL (0.2-1.0); Globulin 2.8 g/dL (2.3-3.5); Potassium 4.4 mEq/L (3.5-5.1); Protein, Total 5.6 g/dL (6.4-8.2)
--- NOTE | 2023-10-28 12:04 | P.PN ---
Subjective Date of Service: 10/28/23 Chief Complaint: AMS Pt is resting comfortably in bed. She is AAOx3. No complaints overnight. Review of Systems General: Unremarkable Eyes: Unremarkable ENT: Unremarkable Respiratory: Unremarkable Cardiovascular: Unremarkable Gastrointestinal: Unremarkable Genitourinary: Unremarkable Musculoskeletal: Unremarkable Integumentary: Unremarkable Neurological: Unremarkable Lymphatics: Unremarkable Physical Examination - Vital Signs Temperature: 98.2 F Blood Pressure: 164/75 Pulse: 83 Respirations: 18 Pulse Ox (%): 90 - Physical Exam General: Alert, In no apparent distress, Oriented x3 HEENT: Atraumatic, Normocephalic, PERRLA Neck: Supple, 2+ carotid pulse no bruit Respiratory: Clear to auscultation bilaterally, Normal air movement Cardiovascular: No edema, Normal pulses, Regular rate/rhythm, Normal S1 S2 Capillary refill: <2 Seconds Gastrointestinal: Normal bowel sounds, Soft and benign, Non-distended Musculoskeletal: No clubbing, No swelling Integumentary: No rashes, No breakdown Neurological: Normal speech, Normal strength at 5/5 x4 extr, Normal tone, Sensation intact Lymphatics: No axilla or inguinal lymphadenopathy Assessment And Plan - Plan Acute encephalopathy: Likely due to underlying dementia or cystitis. Will continue empiric iv abx. Urinalysis is unremarkable. Will f/u urine cx. CT head negative for any acute changes. Will f/u ammonia level. Possible dementia with sundowning. Pt will need Geripsych eval. Acute confusional state: Will continue prn geodon. Hypertension: Continue home meds. Hyperlipidemia: statin Diabetes: Continue accuchek, SSI and ADA diet, Elevated LFTs: Imaging study shows gallbladder sludge with no cholecystitis. Continue empiric antibiotic GI ppx: protonx DVT ppx: SCD Code: full Dispo: Pending hospital course.
[2023-10-28] MEDS: CEFTRIAXONE 1,000 MG in NA CHLORIDE 0.9% 50 ML IVPB SCH (13:00)
--- NOTE | 2023-10-28 16:51 | P.DS ---
Admission Date: 10/27/23 Discharge Date: 10/28/23 Disposition: ROUTINE DISCHARGE Discharge Condition: GOOD Reason for Admission: AMS Brief History of Present Illness: 88 yrs old Female with past medical history of dementia, hypertension, hyperlipidemia, CKD stage II, CVA who was brought to ER with abdominal status and dysuria which has been going on for the last few days . At the time of interview patient is confused and could not offer any history hence most of the history is obtained from the chart review and also talking to the ER physician. Patient used to have UTI induced confusion. Patient also has a history of dementia not formally diagnosed yet and on and off agitated as per the family. Patient was assessed in the ER and is admitted for further management Hospital Course: Pt is an 88 yo female with past medical history of dementia, hypertension, hyperlipidemia, CKD stage II, CVA presented with confusion. Her family member reported abdominal pain and dysuria. Pt has history of confusion due to UTI. We admitted for acute encephalopathy due to possible UTI with underlying dementia. Urinalysis was unremarkable. We empirically gave her rocephin. She had a few episodes of agitation when the nurses tried to check her BP and draw labs. The symptoms resolved and pt became AAox3. Ammonia level was < 15. We advised pt to complete 2 more days of keflex at home for possible cystitis. We continued home med for other chronic meidcal problems. Pt was in NAD prior to discharge. Vital Signs/Physical Exam: Temp Pulse Resp BP Pulse Ox 98.2 F 90 18 164/75 H 90 L 10/28/23 12:09 10/28/23 12:28 10/28/23 12:09 10/28/23 12:10/28/23 12:09 Laboratory Data at Discharge: WBC 6.50 thou/uL (4.3-10.9) 10/28/23 05:52 Hgb 10.7 g/dL (12.0-15.0) L 10/28/23 05:52 Hct 33.3 % (36.0-45.0) L 10/28/23 05:52 Plt Count 190 thou/uL (152-406) 10/28/23 05:52 PT 10.6 SECONDS (9.5-12.5) 10/26/23 18:18 INR 0.96 10/26/23 18:18 APTT 30.6 SECONDS (24.3-36.9) 10/26/23 18:18 Sodium 142 mEq/L (136-145) 10/28/23 05:52 Potassium 4.4 mEq/L (3.5-5.1) 10/28/23 05:52 BUN 28 mg/dL (7-18) H 10/28/23 05:52 Creatinine 1.46 mg/dL (0.55-1.02) H 10/28/23 05:52 Glucose 101 mg/dL (74-106) 10/28/23 05:52 Total Bilirubin 0.4 mg/dL (0.2-1.0) 10/28/23 05:52 AST 18 U/L (15-37) 10/28/23 05:52 ALT 35 U/L (13-56) 10/28/23 05:52 Alkaline Phosphatase 87 U/L (45-117) 10/28/23 05:52 Home Medications: Aspirin 81 mg PO DAILY 02/19/23 Atorvastatin Calcium [Lipitor] 80 mg PO BEDTIME 02/19/23 Duloxetine HCl [Cymbalta] 30 mg PO DAILY 02/19/23 Ferrous Sulfate [Ferrous Sulfate*] 1 tab PO DAILY 02/19/23 Galantamine HBr [Galantamine ER] 8 mg PO DAILY 02/19/23 Levothyroxine Sodium 25 mcg PO DAILY 02/19/23 Memantine HCl [Namenda*] 5 mg PO DAILY 02/19/23 Multivitamin 1 tab PO DAILY 02/19/23 Furosemide 20 mg PO BID #60 02/27/23 carvediloL [Coreg*] 6.25 mg PO BID #60 tab 02/27/23 Azelastine HCl 1 spray NS DAILY 10/27/23 D-Mannose [Azo D-Mannose] 1 cap PO DAILY 10/27/23 Hydralazine [Apresoline*] 1 tab PO BID 10/27/23 Magnesium Oxide [Mag 0X*] 1 tab PO DAILY 10/27/23 Mv-Mn/Om3/Dha/Epa/Fish/Lut/Destiny [Ocuvite Adult 50 Plus Softgel] 1 cap PO DAILY 10/27/23 Olopatadine [Patanol Opth*] 1 drop EACH EYE DAILY 10/27/23 Omeprazole 1 cap PO DAILY 10/27/23 Potassium Chloride 1 tab PO DAILY 10/27/23 Cephalexin [Keflex] 500 mg PO Q8HR 2 Days #6 cap 10/28/23 New Medications: Cephalexin [Keflex] 500 mg PO Q8HR 2 Days #6 cap Physician Discharge Instructions: Continue ad chavez activity. Take home meds as prescribed. Take keflex 500mg po TID for 2 more days. Follow up with PCP within 1 week. Diet: AHA Activity: Ad chavez Followup: NONE,NONE [Primary Care Provider] -
[2023-10-28 17:07] VITALS: BP 160/72; TEMP 97.1
[2023-10-28 17:35] VITALS: O2SAT 94
== END 2023-10-28 18:15 | DRG 690 ==
LOC: ER 15:36 → 2ND 10-27 00:48
PROVIDERS: ADMIT Family Medicine; ATTEND Hospitalist
DX: N30.90 Cystitis, unspecified without hematuria (principal); F05 Delirium due to known physiological condition; N17.9 Acute kidney failure, unspecified; F03.911 Unspecified dementia, unspecified severity, with agitation; G93.49 Other encephalopathy; E78.00 Pure hypercholesterolemia, unspecified; K80.80 Other cholelithiasis without obstruction; E03.9 Hypothyroidism, unspecified; I12.9 Hypertensive chronic kidney disease with stage 1 through stage 4 chronic kidney disease, or unspecified chronic kidney disease; N18.2 Chronic kidney disease, stage 2 (mild); E11.22 Type 2 diabetes mellitus with diabetic chronic kidney disease; I25.10 Atherosclerotic heart disease of native coronary artery without angina pectoris; I25.2 Old myocardial infarction; R79.89 Other specified abnormal findings of blood chemistry; Z95.5 Presence of coronary angioplasty implant and graft; Z79.82 Long term (current) use of aspirin; Z86.73 Personal history of transient ischemic attack (TIA), and cerebral infarction without residual deficits; Z28.310 Unvaccinated for COVID-19; Z79.890 Hormone replacement therapy; Z87.891 Personal history of nicotine dependence; Z79.899 Other long term (current) drug therapy; Z90.710 Acquired absence of both cervix and uterus
CPT/HCPCS: 36415; 70450; 71250; 74176; 76705; 80048; 80053; 80076; 80143; 80179; 81001; 82077; 82140; 82550; 82947; 85025; 85610; 85730; 93005; 94760; 96374; 99285; J0360; J0696; J3486; J7030; J7040

== ENCOUNTER 2023-11-16 15:46 | Emergency (ER) | payer OTHER, MEDICARE ==
[2023-11-16 17:10] LABS: Absolute Lymphocytes (CBC) 0.5 K/uL (0.7-4.9); Absolute Monocytes 0.5 K/uL (0.1-1.3); Absolute Neutrophil 3.9 K/uL (1.8-8.0); Basophils % 0.5 % (0-1.3); Eosinophils % 0.7 % (0-4.4); Hematocrit 36.4 % (36.0-45.0); Hemoglobin 11.6 g/dL (12.0-15.0); Lymphocytes % 10.6 % (15.3-44.8); MCH 28.5 pg (27.0-35.0); MCHC 31.9 g/dL (32.0-36.0); MCV 89.5 fL (80-100); MPV 9.7 fL (7.6-11.3); Monocytes % 9.2 % (3.3-12.3); Nucleated Red Blood Cells % 0.1 % (0-0); Platelets 197 thou/uL (152-406); RBC Red Blood Cell Count 4.07 M/uL (3.86-4.86); Red Cell Distribution Width 16.6 % (12.1-15.2)
--- NOTE | 2023-11-16 17:10 | RAD REPORT ---
EXAM DESCRIPTION: RAD - Chest Single View - 11/16/2023 4:58 pm CLINICAL HISTORY: tia COMPARISON: Chest Single View dated 02/26/2023; Chest Single View dated 02/22/2023; Chest Single View da vero 02/06/2023; Chest Single View dated 07/20/2021 FINDINGS: Lines: None. Lungs: Diffuse prominence of the pulmonary interstitium. Pleural: Bilateral pleural effusions, left greater than right Cardiac: Obscured Mediastinum: Within normal limits. Bones: No acute fractures. Other: None IMPRESSION: Bilateral pleural effusions probably due to pulmonary edema.
[2023-11-16 17:14] LABS: PTT, Activated Partial Thromb 31.5 SECONDS (24.3-36.9)
[2023-11-16 17:36] LABS: Anion Gap 12.2 mEq/L (5.0-15.0); Bilirubin Direct 0.2 mg/dL (0-0.2); Bilirubin Indirect, Calculated 0.5 mg/dL (0.2-0.8); Bilirubin Total 0.7 mg/dL (0.2-1.0); Globulin 3.1 g/dL (2.3-3.5); Magnesium 2.3 mg/dL (1.6-2.4); Potassium 4.2 mEq/L (3.5-5.1); Protein, Total 6.1 g/dL (6.4-8.2); Troponin High Sensitivity 57.1 pg/mL (<58.9)
--- NOTE | 2023-11-16 17:37 | RAD REPORT ---
EXAM DESCRIPTION: CT - Ct Stroke Brain Wo Cont - 11/16/2023 5:27 pm CLINICAL HISTORY: STROKE ALERT COMPARISON: Head Brain Wo Cont dated 10/26/2023; Head Brain Wo Cont dated 03/06/2023 TECHNIQUE: All CT scans are performed using dose optimization technique as appropriate and may inclu de automated exposure control or mA/KV adjustment according to patient size. FINDINGS: No intracranial hemorrhage, hydrocephalus or extra-axial fluid collection.No areas of brai n edema or evidence of midline shift. Remote left medial cerebellar hemisphere infarct. Moderate event set up specialist shin small vessel ischemic changes. Cerebral atrophy. The paranasal sinuses and mastoids are clear. The calvarium is intact. IMPRESSION: No acute intracranial abnormality. Conveyed to Dr. Gil by Dr. Sheffield at 1730 on 11/16/23
--- NOTE | 2023-11-16 17:52 | RAD REPORT ---
EXAM DESCRIPTION: CT - Neck Angio - 11/16/2023 5:27 pm CLINICAL HISTORY: tia COMPARISON: Head angio dated 11/16/2023; Ct Stroke Brain Wo Cont dated 11/16/2023 TECHNIQUE: CT angiography of the neck vessels was performed with maximum intensity reformatted image s. CAROTID STENOSIS REFERENCE USING NASCET CRITERIA: Mild - <50% stenosis. Moderate - 50-69% stenosis. Severe - 70-94% stenosis. Near occlusion - 95-99% stenosis. Occluded - 100% stenosis. All CT scans are performed using dose optimization technique as appropriate and may include automated exposure control or mA/KV adjustment according to patient size. FINDINGS: Severe right subclavian artery stenosis at its origin. Irregular intraluminal thrombus is present in the right distal common carotid artery. The distal CTA is heavily calcified with either near occlusion or short-segment occlusio. There is asymmetrically di minished enhancement in the right ICA and intracranial ICA. The right ECA is probably occluded proxim ally as well. The left common carotid artery is patent. There is a mild (less than 50%) stenosis at the left proxim al ICA. Both vertebral arteries are patent. Bilateral pleural effusions. IMPRESSION: Intraluminal thrombus extending from the right distal common carotid artery into the pro ximal ICA. There is near occlusion versus short-segment occlusion as result of the thrombus at the di stal CCA. The right ICA contrast-enhancement is asymmetrically decreased compared with the left ICA. This could be from collateral or retrograde flow. The left carotid system is patent. The vertebral ar teries are patent.
--- NOTE | 2023-11-16 17:56 | RAD REPORT ---
EXAM DESCRIPTION: CT - Head angio - 11/16/2023 5:27 pm CLINICAL HISTORY: TIA COMPARISON: Ct Stroke Brain Wo Cont dated 11/16/2023; Head Brain Wo Cont dated 10/26/2023 TECHNIQUE: CT angiography of the head was performed with maximum intensity reformatted images. 3D ma ximum intensity pixel (MIP) reconstructions were created All CT scans are performed using dose optimization technique as appropriate and may include automated exposure control or mA/KV adjustment according to patient size. FINDINGS: Anterior circulation: The entire right intracranial ICA demonstrates diminished enhancement compared with the left. This co uld be from a right CCA occlusion and retrograde flow. The left ICA is patent. Both vessels have circ umferential calcified plaque. Both middle cerebral arteries are patent. The anterior cerebral arterie s are also patent. Posterior circulation: No aneurysm or large vessel occlusion. No hemodynamically significant stenosis. No arteriovenous malf ormation identified. IMPRESSION: Asymmetric enhancement of the right ICA compared with the left may be due to a near occl usion versus short segment occlusion of the right CCA within the neck. The vessel does appear to have flow with asymmetrically lower enhancement values due to either collateral or retrograde filling of the intracranial ICA. The [place] is otherwise intact.
--- NOTE | 2023-11-16 19:13 | EDPHYS ---
Physician Documentation [facility] Name: Casey Lyons Age: 88 yrs Sex: Female : 1935 Arrival Date: 11/16/2023 Time: 15:46 Bed 17 Private MD: ED Physician Jayant Gil HPI: 11/15 19:13 This 88 yrs old Female presents to ER via EMS with complaints of Numbness. rt 19:13 Patient presents to the ED with numbness, weakness to the left arm starting about 3 rt hours prior to arrival. Symptoms have resolved at the time of the patient's arrival here. She denies any acute complaints currently. Denies other symptoms, symptoms are moderate in severity, no other aggravating or alleviating factors.. Historical: - Allergies: 16:06 No Known Allergies; rs5 - Home Meds: 20:17 aspirin 81 mg Oral tablet 1 tab daily [Active]; atorvastatin 80 mg Oral tab 1 tab once tl4 daily [Active]; carvedilol 6.25 mg oral tablet 1 tab 2 times per day [Active]; duloxetine 30 mg Oral cpDR 1 cap once daily [Active]; ferrous sulfate 325 mg (65 mg iron) Oral tablet 1 tab daily [Active]; furosemide 20 mg Oral tablet 1 tab 2 times per day [Active]; galantamine 8 mg Oral Capsule 1 cap daily [Active]; levothyroxine 25 mcg tab 1 tab once daily [Active]; multivitamin Oral tablet every morning [Active]; hydralazine 25 mg oral tablet 1 tabs 3 times per day [Active]; Macular Health Formula 5-1-7.5 mg oral capsule daily [Active]; olopatadine 0.2 % ophthalmic (eye) drops 1 drop daily [Active]; omeprazole 20 mg Oral capsule,delayed release (e.c.) 1 caps daily [Active]; potassium chloride 10 mEq Oral tablet, extended release 1 tabs daily [Active]; azelastine 137 mcg (0.1 %) intranasal Aerosol, [place] 1 spray daily [Active]; AZO D-Mannose 500 mg oral capsule 1 cap daily [Active]; memantine 5 mg Oral tablet 1 tab daily [Active]; magnesium oxide 400 mg magnesium oral tablet 1 tab daily [Active]; - PMHx: 16:06 Cellulitis of Leg; CKD; Crohn's; Dementia; High Cholesterol; Cerebrovascular accident; rs5 Hypertension; 20:17 Osteoporosis; Atrial fibrillation; Macular degeneration; Coronary atherosclerosis; tl4 - PSHx: 16:06 Stented artery; rs5 - Immunization history:: Adult Immunizations up to date. - Infectious Disease History:: Denies. - Social history:: Smoking status: Patient denies any tobacco usage or history of. ROS: 19:13 Constitutional: Negative for fever, chills, and weight loss, Cardiovascular: Negative rt for chest pain, palpitations, and edema, Respiratory: Negative for shortness of breath, cough, wheezing, and pleuritic chest pain, Abdomen/GI: Negative for abdominal pain, nausea, vomiting, diarrhea, and constipation, Skin: Negative for injury, rash, and discoloration, 19:13 Neuro: Positive for numbness, weakness, Exam: 19:13 Radiologist reports: No hemorrhage rt 19:13 Constitutional: This is a well developed, well nourished patient who is awake, alert, and in no acute distress. Chest/axilla: Normal chest wall appearance and motion. Nontender with no deformity. No lesions are appreciated. Cardiovascular: Regular rate and rhythm with a normal S1 and S2. No gallops, murmurs, or rubs. Normal PMI, no JVD. No pulse deficits. Respiratory: Lungs have equal breath sounds bilaterally, clear to auscultation and percussion. No rales, rhonchi or wheezes noted. No increased work of breathing, no retractions or nasal flaring. Abdomen/GI: Soft, non-tender, with normal bowel sounds. No distension or tympany. No guarding or rebound. No evidence of tenderness throughout. Skin: Warm, dry with normal turgor. Normal color with no rashes, no lesions, and no evidence of cellulitis. MS/ Extremity: Pulses equal, no cyanosis. Neurovascular intact. Full, normal range of motion. Neuro: Awake and alert, GCS 15, oriented to person, place, time, and situation. Cranial nerves II-XII grossly intact. Motor strength 5/5 in all extremities. Sensory grossly intact. Cerebellar exam normal. Normal gait. 19:13 ECG was reviewed by the Attending Physician. rt Vital Signs: 16:00 BP 130 / 48; Pulse 65; Resp 20; Pulse Ox 99% on R/A; tl4 16:03 BP 136 / 72; Pulse 70; Resp 18; Pulse Ox 97% on 2 lpm NC; rs5 17:00 BP 169 / 54; Pulse 58; Resp 20; Pulse Ox 99% on R/A; tl4 18:00 BP 172 / 65; Pulse 59; Resp 15; Pulse Ox 99% on R/A; tl4 19:00 BP 180 / 58; Pulse 58; Resp 16; Pulse Ox 95% on R/A; tl4 20:00 BP 187 / 63; Pulse 60; Resp 20; Pulse Ox 99% on R/A; Pain 0/10; tl4 21:00 BP 186 / 85; Pulse 62; Resp 16; Pulse Ox 99% on R/A; tl4 22:00 BP 186 / 82; Pulse 58; Resp 17; Temp 98.1(O); Pulse Ox 100% on R/A; Pain 0/10; tl4 20:00 Pain Scale: Adult tl4 22:00 Pain Scale: Adult tl4 MDM: 16:12 Patient medically screened. rt 19:13 Differential diagnosis: CVA, TIA, intracranial hemorrhage, carotid occlusion. Data rt reviewed: vital signs, nurses notes. 19:13 Consideration of Admission/Observation Patient requires transfer for evaluation of rt carotid occlusion. Management of patient was discussed with the following: Bicycle Service Technician: Discussed with accepting neurologist at [facility] Independent interpretation of the following test(s) in the Emergency Department CT Scan: My interpretation is No intracranial hemorrhage seen on my interpretation of CT scan images. Care significantly affected by the following chronic conditions: Chronic Kidney Disease. Counseling: I had a detailed discussion with the patient and/or guardian regarding the historical points, exam findings, and any diagnostic results supporting the discharge/admit diagnosis, lab results, radiology results, the need for further work-up and treatment in the hospital. Response to treatment: the patient's symptoms have markedly improved after treatment. 11/15 16:23 Order name: Basic Metabolic Panel; Complete Time: 17:36 rt 11/15 16:23 Order name: CBC with Diff; Complete Time: 17:14 rt 11/15 16:23 Order name: Hepatic Function; Complete Time: 17:36 rt 11/15 16:23 Order name: High Sensitivity Troponin; Complete Time: 17:36 rt 11/15 16:23 Order name: Magnesium; Complete Time: 17:36 rt 11/15 16:23 Order name: Protime (+inr); Complete Time: 17:36 rt 11/15 16:23 Order name: Ptt, Activated; Complete Time: 17:36 rt 11/15 17:04 Order name: Glucose, Ancillary Testing; Complete Time: 17:14 EDWI 11/15 16:23 Order name: CT Head Angio; Complete Time: 18:04 rt 11/15 16:23 Order name: CT Neck Angio; Complete Time: 18:04 rt 11/15 16:23 Order name: CT Stroke Brain w/o Contrast; Complete Time: 18:04 rt 11/15 16:23 Order name: Stroke CXR 1 View; Complete Time: 17:14 rt 11/15 16:23 Order name: Accucheck; Complete Time: 16:57 rt 11/15 16:23 Order name: Cardiac monitoring; Complete Time: 16:26 rt 11/15 16:23 Order name: EKG - Nurse/Tech; Complete Time: 16:57 rt 11/15 16:23 Order name: IV Saline Lock; Complete Time: 16:57 rt 11/15 16:23 Order name: Labs collected and sent; Complete Time: 16:57 rt 11/15 16:23 Order name: NPO; Complete Time: 16:26 rt 11/15 16:23 Order name: O2 Per Protocol; Complete Time: 16:26 rt 11/15 16:23 Order name: O2 Sat Monitoring; Complete Time: 16:26 rt 11/15 16:23 Order name: Stroke Swallow Screen; Complete Time: 19:30 rt EC:13 Rate is 66 beats/min. Rhythm is regular, Normal Sinus Rhythm with PACs. QRS Gable is rt Normal. WA interval is normal. QRS interval is normal. QT interval is normal. No Q waves. No ST changes noted. Administered Medications: No medications were administered Disposition Summary: 11/16/23 19:13 Transfer Ordered Notes: Transfer Location: [facility] rt Reason: Higher level of care rt Condition: Stable rt Problem: new rt Symptoms: have improved rt Accepting Physician: (11/16/23 22:09) tl4 Diagnosis - Transient ischemic attack rt - Occlusion of the right carotid artery rt Forms: - Medication Reconciliation Form rt - SBAR form rt Signatures: Dispatcher [employer] EDMS Jayant Gil MD MD rt Sotelo, Ricky RN RN rs5 Gerald Stevens RN RN tl4 Corrections: (The following items were deleted from the chart) 16:24 16:24 Head Angio+CT.RAD.BRZ ordered. EDMS EDMS 16:24 16:24 Neck Angio+CT.RAD.BRZ ordered. EDMS EDMS 16:24 16:24 CT-STROKE BRAIN W/O CONTRAST+CT.RAD.BRZ ordered. EDMS EDMS 16:24 16:24 Chest Single View+RAD.RAD.BRZ ordered. EDMS EDMS 22:09 19:13 rt tl4
--- NOTE | 2023-11-16 19:13 | ER ---
Nurse's Notes [facility] Name: Casey Lyons Age: 88 yrs Sex: Female : 1935 Arrival Date: 11/16/2023 Time: 15:46 Bed 17 Private MD: Diagnosis: Transient ischemic attack;Occlusion of the right carotid artery Presentation: 11/15 16:03 Chief complaint: EMS states: Left arm numbness, tingling, and weakness. Symptoms rs5 started at 1430 and are now resolved. Coronavirus screen: At this time, the client does not indicate any symptoms associated with coronavirus-19. Ebola Screen: No symptoms or risks identified at this time. Initial Sepsis Screen: Does the patient meet any 2 criteria? No. Patient's initial sepsis screen is negative. Does the patient have a suspected source of infection? No. Patient's initial sepsis screen is negative. Risk Assessment: Do you want to hurt yourself or someone else? Patient reports no desire to harm self or others. Onset of symptoms was November 16, 2023. 16:03 Method Of Arrival: EMS: [facility] rs5 16:03 Acuity: CLINT 3 rs5 Triage Assessment: 22:08 General: Appears in no apparent distress. Behavior is calm, cooperative. tl4 Historical: - Allergies: 16:06 No Known Allergies; rs5 - Home Meds: 20:17 aspirin 81 mg Oral tablet 1 tab daily [Active]; atorvastatin 80 mg Oral tab 1 tab once tl4 daily [Active]; carvedilol 6.25 mg oral tablet 1 tab 2 times per day [Active]; duloxetine 30 mg Oral cpDR 1 cap once daily [Active]; ferrous sulfate 325 mg (65 mg iron) Oral tablet 1 tab daily [Active]; furosemide 20 mg Oral tablet 1 tab 2 times per day [Active]; galantamine 8 mg Oral Capsule 1 cap daily [Active]; levothyroxine 25 mcg tab 1 tab once daily [Active]; multivitamin Oral tablet every morning [Active]; hydralazine 25 mg oral tablet 1 tabs 3 times per day [Active]; Macular Health Formula 5-1-7.5 mg oral capsule daily [Active]; olopatadine 0.2 % ophthalmic (eye) drops 1 drop daily [Active]; omeprazole 20 mg Oral capsule,delayed release (e.c.) 1 caps daily [Active]; potassium chloride 10 mEq Oral tablet, extended release 1 tabs daily [Active]; azelastine 137 mcg (0.1 %) intranasal Aerosol, [place] 1 spray daily [Active]; AZO D-Mannose 500 mg oral capsule 1 cap daily [Active]; memantine 5 mg Oral tablet 1 tab daily [Active]; magnesium oxide 400 mg magnesium oral tablet 1 tab daily [Active]; - PMHx: 16:06 Cellulitis of Leg; CKD; Crohn's; Dementia; High Cholesterol; Cerebrovascular accident; rs5 Hypertension; 20:17 Osteoporosis; Atrial fibrillation; Macular degeneration; Coronary atherosclerosis; tl4 - PSHx: 16:06 Stented artery; rs5 - Immunization history:: Adult Immunizations up to date. - Infectious Disease History:: Denies. - Social history:: Smoking status: Patient denies any tobacco usage or history of. Screenin:[address] [facility] ED Fall Risk Assessment (Adult) History of falling in the last 3 months, tl4 including since admission No falls in past 3 months (0 pts) Confusion or Disorientation No (0 pts) Intoxicated or Sedated No (0 pts) Impaired Gait No (0 pts) Mobility Assist Device Used No (0 pt) Altered Elimination No (0 pt) Score/Fall Risk Level 0 - 2 = Low Risk Oriented to surroundings, Maintained a safe environment, Educated pt \T\ family on fall prevention, incl call for assistance when getting out of bed, Assessed \T\ reinforced patient's understanding of fall precautions, Hourly rounding (assess needs \T\ fall precautionary measures) done, Used ambulatory aids as needed (educated on \T\ assisted with), Used gait belt as appropriate. Abuse screen: Denies threats or abuse. Denies injuries from another. Nutritional screening: No deficits noted. Tuberculosis screening: No symptoms or risk factors identified. 19:37 [place] Swallow Protocol Exclusion Criteria: Exclusion Criteria Result: Proceed Brief tl4 Cognitive Screen What is your name? Normal, Where are you right now? Normal, What year is it? Normal. Oral Mechanism Examination Facial Symmetry: Normal, 3 oz Water Swallow Challenge: Pt able to drink all water without stopping, coughing, choking or throat clearing: Yes Result: PASS. Assessment: 19:35 Reassessment: Patient and/or family updated on plan of care and expected duration. Pain tl4 level reassessed. Patient is alert, oriented x 3, equal unlabored respirations, skin warm/dry/pink. Pt denies any needs at this time. Pt resting quietly, denies any needs at this time. Family member arrived and is requesting to speak to MD Gil, he is aware. Will continue to monitor. Pain: Denies pain. 20:16 Reassessment: Patient and/or family updated on plan of care and expected duration. Pain tl4 level reassessed. Patient is alert, oriented x 3, equal unlabored respirations, skin warm/dry/pink. Pt denies any needs at this time. Pt and family updated on status. Family members remain at bedside. Will continue to monitor. 21:00 Reassessment: Patient and/or family updated on plan of care and expected duration. Pain tl4 level reassessed. Patient is alert, oriented x 3, equal unlabored respirations, skin warm/dry/pink. Pt interactive with family, denies any needs at this time. Pt and family updated on status of transfer. Will continue to monitor. 22:05 Reassessment: Patient and/or family updated on plan of care and expected duration. Pain tl4 level reassessed. Patient is alert, oriented x 3, equal unlabored respirations, skin warm/dry/pink. Report to EMS. Pt denies any needs at this time. Family at bedside. Vital Signs: 16:00 BP 130 / 48; Pulse 65; Resp 20; Pulse Ox 99% on R/A; tl4 16:03 BP 136 / 72; Pulse 70; Resp 18; Pulse Ox 97% on 2 lpm NC; rs5 17:00 BP 169 / 54; Pulse 58; Resp 20; Pulse Ox 99% on R/A; tl4 18:00 BP 172 / 65; Pulse 59; Resp 15; Pulse Ox 99% on R/A; tl4 19:00 BP 180 / 58; Pulse 58; Resp 16; Pulse Ox 95% on R/A; tl4 20:00 BP 187 / 63; Pulse 60; Resp 20; Pulse Ox 99% on R/A; Pain 0/10; tl4 21:00 BP 186 / 85; Pulse 62; Resp 16; Pulse Ox 99% on R/A; tl4 22:00 BP 186 / 82; Pulse 58; Resp 17; Temp 98.1(O); Pulse Ox 100% on R/A; Pain 0/10; tl4 20:00 Pain Scale: Adult tl4 22:00 Pain Scale: Adult tl4 ED Course: 16:03 Patient arrived in ED. rs5 16:06 Triage completed. rs5 16:07 Jayant Gil MD is Attending Physician. rt 16:21 Elmo Naranjo, RN is Primary Nurse. rs5 16:57 Basic Metabolic Panel Sent. bc6 16:57 CBC with Diff Sent. bc6 16:57 Hepatic Function Sent. bc6 16:57 High Sensitivity Troponin Sent. bc6 16:57 Magnesium Sent. bc6 16:57 Protime (+inr) Sent. bc6 16:57 Ptt, Activated Sent. bc6 16:58 Initial lab(s) drawn, by me, sent to lab. EKG done, by ED staff, reviewed by Jayant Gil MD. Inserted saline lock: 20 gauge in right antecubital area, using aseptic technique. Blood collected. 16:58 Blood glucose 156. bc6 16:59 Stroke CXR 1 View In Process Unspecified. EDMS 17:29 CT Head Angio In Process Unspecified. EDMS 17:29 CT Neck Angio In Process Unspecified. EDMS 17:29 CT Stroke Brain w/o Contrast In Process Unspecified. EDMS 18:[address] [facility]. Spoke to Trace. mb4 20:20 Admin approval by Ella Andrade \T\ 1949. Accepting physician Dora Waldrop \T\ 1949. mb 4 21:01 [facility] advised extended ETA, [facility] ambulance advised 3 hour ETA. [facility] ETA 1hr. mb4 21:05 No provider procedures requiring assistance completed. Patient transferred, IV remains tl4 in place. 22:09 Patient has correct armband on for positive identification. Placed in gown. Bed in low tl4 position. Call light in reach. Side rails up X2. Adult w/ patient. Provided Education on: ed process, call agrawal. Client placed on continuous cardiac and pulse oximetry monitoring. NIBP monitoring applied. distribution engineering technologist on. Door closed. Noise minimized. Lights dimmed. Moved to private room. Warm blanket given. Pillow given. 22:09 Arm band placed on right wrist. tl4 Administered Medications: No medications were administered Medication: 19:37 VIS not applicable for this client. tl4 Outcome: 19:13 ER care complete, transfer ordered by . rt 22:08 Transferred by ground EMS to [facility], [facility], tl4 22:08 Condition: stable 22:08 Instructed on the need for admit, 22:09 Patient left the ED. tl4 Signatures: Dispatcher [employer] EDMS Yeny Lewis mb4 Jayant Gil MD MD rt Elmo Naranjo RN RN rs5 Kristina Colón 6 Gerald Stevens RN RN tl4
[2023-11-16 22:32] VITALS: BP 186/82; TEMP 98.1; O2SAT 100
--- NOTE | 2023-11-18 14:17 | EKG ---
Test Date: 2023-11-16 Test Time: 16:44:14 Training Manager: KIP MEASUREMENT RESULTS: Intervals: Rate: 66 MA: 170 QRSD: 106 QT: 446 QTc: 467 Nada: P: 44 MA: 170 QRS: 29 T: -40 INTERPRETIVE STATEMENTS: Sinus rhythm with premature atrial complexes Nonspecific T wave abnormality Abnormal ECG Compared to ECG 10/26/2023 19:21:35 Atrial premature complex(es) now present Ventricular premature complex(es) no longer present Possible ischemia no longer present Prolonged QT interval no longer present T-wave abnormality still present Electronically Signed On 11-18-23 14:12:50 CDT by Umberto Eugene
== END 2023-11-16 22:09 | disposition short-term general hospital (02) ==
LOC: ER 15:46
DX: G45.9 Transient cerebral ischemic attack, unspecified (principal); I65.21 Occlusion and stenosis of right carotid artery; I12.9 Hypertensive chronic kidney disease with stage 1 through stage 4 chronic kidney disease, or unspecified chronic kidney disease; N18.9 Chronic kidney disease, unspecified; Z86.73 Personal history of transient ischemic attack (TIA), and cerebral infarction without residual deficits; Z79.82 Long term (current) use of aspirin
CPT/HCPCS: 93005; 85025; 80048; 36415; 83735; 85610; 82947; 80076; 85730; 84484; 70496; 70498; 70450; 71045; 99285; Q9967